=== PATIENT | female | born 1985 | race Caucasian/White ===

== ENCOUNTER 2017-11-06 18:40 | Emergency (ER) | payer OTHER, SELFPAY ==
[2017-11-06 18:43] VITALS: BP 137/73; PULSE 99; RESP 16; TEMP 37.1; O2SAT 97; BMI 60.4
--- NOTE | 2017-11-06 18:54 | RAD_ITS ---
STUDY: X-RAY CHEST REASON FOR EXAM: Female, 32 years old. Chest pain TECHNIQUE: Single frontal view COMPARISON: March 24, 2017. FINDINGS: The lungs are not fully expanded. There is no demonstrated pleural abnormality. Normal size heart. Normal mediastinum and montse. Normal visualized pulmonary arteries. Normal visualized aortic arch and descending thoracic aorta. Normal visualized thoracic spine. Normal visualized ribs, clavicles, and shoulders. There is no demonstrated abnormality of the visualized soft tissue structures of the upper abdomen. RAD/Chest 1 View (Portable) IMPRESSION: Normal x-ray examination of the chest. Electronically Signed: Jeffrey Floyd DO at 19:29 EDT Tel [phone], Service support ,
--- NOTE | 2017-11-06 18:54 | EKG12_ITS ---
Test Reason : PALP Blood Pressure : / mmHG Vent. Rate : 095 BPM Atrial Rate : 095 BPM P-R Int : 142 ms QRS Dur : 074 ms QT Int : 346 ms P-R-T Axes : 052 003 037 degrees QTc Int : 434 ms Normal sinus rhythm Normal ECG Confirmed by JYOTHI LAMAR MD ([id number]), digital editor KEVIN QUESADA ([id number]) on 11/08/2017 3:32:42 PM Referred By: Confirmed By:JYOTHI LAMAR MD
[2017-11-06 19:17] LABS: Absolute Lymphocyte Count 3.85 X10^3/ul (0.83-4.51); Absolute Neutrophil Count 7.5 X10^3/uL (2.0-7.7); Basophil# 0.01 X10^3/uL; Basophil% 0.1 % (0-1); Eosinophil# 0.32 X10^3/uL; Eosinophils% 2.6 % (0-5); Hematocrit 43.5 % (37-47); Hemoglobin 14.5 g/dl (12.0-15.0); Lymphocyte # 3.85 X10^3/ul (4.0); Mean Corp Hgb Conc 33.3 g/gl (32-36); Mean Corpuscular Hgb 28.2 pg (27.0-32.0); Mean Corpuscular Volume 84.5 fL (81-99); Mean Platelet Vol. 10.6 fl (6.2-12.0); Monocyte# 0.75 X10^3/uL; Neutrophil # 7.47 X10^3/uL (2.7-7.7); Neutrophil % 60.1 % (47-70); Platelet Count 301 K/mm3 (150-450); RBC Distribution Width CV 14.4 % (11.6-14.6); RBC Distribution Width SD 44.7 fl (35.1-43.9); Red Blood Count 5.15 M/mm3 (4.2-5.4); White Blood Count 12.4 K/mm3 (4.4-11.0)
[2017-11-06 19:18] LABS: POSITIVE COUNT NO; POSITIVE DIFFERENTIAL NO; POSITIVE MORPHOLOGY NO
[2017-11-06 19:34] LABS: Anion Gap 6 (5-15); BUN 9 mg/dL (7-18); BUN/Creat Ratio 12.7 RATIO (10-20); Calcium,Total 8.9 mg/dL (8.5-10.1); Chloride 106 mmol/L (98-107); Creatinine, Serum 0.71 mg/dL (0.55-1.02); EST Glomerular Filtration Rate 100 mL/min (>60); Est Glom Filt Rate - Afr Amer 121 mL/min (>60); Estimated Creatinine Clearance 100.46 ml/min; Glucose 105 mg/dL (74-106); Potassium 3.6 mmol/L (3.5-5.1); Sodium Level 139 mmol/L (136-145)
== END 2017-11-06 20:54 | disposition left against medical advice (07) ==
LOC: ED 20:40
PROVIDERS: Emergency Provider Emergency Medicine; Family Provider Internal Medicine; PCP Internal Medicine
DX: R07.9 Chest pain, unspecified (principal)
CPT/HCPCS: 71045; 80048; 84484; 85025; 93005; 99281; A4216

== ENCOUNTER 2017-11-10 14:05 | Emergency (ER) | payer OTHER, SELFPAY ==
[2017-11-10 14:05] VITALS: BP 144/82; PULSE 69; RESP 18; TEMP 36.7; O2SAT 96; BMI 60.7
--- NOTE | 2017-11-10 14:56 | EKG12_ITS ---
Test Reason : SOB Blood Pressure : / mmHG Vent. Rate : 069 BPM Atrial Rate : 069 BPM P-R Int : 154 ms QRS Dur : 076 ms QT Int : 436 ms P-R-T Axes : 056 015 026 degrees QTc Int : 467 ms Normal sinus rhythm with sinus arrhythmia Normal ECG Confirmed by GUSTAVO MCLAUGHLIN ([id number]), story editor KEVIN QUESADA ([id number]) on 11/13/2017 1:32:25 PM Referred By: SHAYLEE Confirmed By:GUSTAVO MCLAUGHLIN
--- NOTE | 2017-11-10 15:45 | RAD_ITS ---
STUDY: X-RAY CHEST REASON FOR EXAM: Female, 32 years old. Chest pain and shortness of breath x2 weeks TECHNIQUE: PA and lateral views of the chest. COMPARISON: Prior study of 11/06/2017 FINDINGS: air sampling and monitoring leads are present. The lungs are clear and expanded. There is no demonstrated pleural abnormality. Normal size heart. Normal mediastinum and montse. Normal visualized pulmonary arteries. Normal visualized aortic arch and descending thoracic aorta. Normal visualized thoracic spine. Normal visualized ribs, clavicles, and shoulders. There is no demonstrated abnormality of the visualized soft tissue structures of the upper abdomen. RAD/Chest PA and Lateral IMPRESSION: Normal x-ray examination of the chest. Electronically Signed: Kiran Cadena MD at 16:09 EDT , Service support ,
[2017-11-10 15:46] LABS: Anion Gap 6 (5-15); BUN 7 mg/dL (7-18); BUN/Creat Ratio 10.1 RATIO (10-20); Calcium,Total 8.5 mg/dL (8.5-10.1); Chloride 105 mmol/L (98-107); Creatinine, Serum 0.69 mg/dL (0.55-1.02); EST Glomerular Filtration Rate 103 mL/min (>60); Est Glom Filt Rate - Afr Amer 125 mL/min (>60); Estimated Creatinine Clearance 103.38 ml/min; Glucose 85 mg/dL (74-106); Potassium 3.9 mmol/L (3.5-5.1); Sodium Level 139 mmol/L (136-145)
[2017-11-10 15:49] LABS: Absolute Lymphocyte Count 2.89 X10^3/ul (0.83-4.51); Absolute Neutrophil Count 7.8 X10^3/uL (2.0-7.7); Basophil# 0.01 X10^3/uL; Basophil% 0.1 % (0-1); Eosinophil# 0.17 X10^3/uL; Eosinophils% 1.5 % (0-5); Hematocrit 41.7 % (37-47); Hemoglobin 13.5 g/dl (12.0-15.0); Lymphocyte # 2.89 X10^3/ul (4.0); Lymphocyte % 24.8 % (19-41); Mean Corp Hgb Conc 32.4 g/gl (32-36); Mean Corpuscular Hgb 27.7 pg (27.0-32.0); Mean Corpuscular Volume 85.5 fL (81-99); Mean Platelet Vol. 10.7 fl (6.2-12.0); Monocyte% 6.9 % (0-10); Neutrophil # 7.78 X10^3/uL (2.7-7.7); Neutrophil % 66.6 % (47-70); POSITIVE COUNT NO; POSITIVE DIFFERENTIAL NO; POSITIVE MORPHOLOGY NO; Platelet Count 283 K/mm3 (150-450); RBC Distribution Width CV 14.2 % (11.6-14.6); RBC Distribution Width SD 43.9 fl (35.1-43.9); Red Blood Count 4.88 M/mm3 (4.2-5.4); White Blood Count 11.7 K/mm3 (4.4-11.0)
[2017-11-10 16:57] LABS: Thyroid Stim Hormone (TSH) 0.99 uIU/mL (0.358-3.74)
--- NOTE | 2017-11-10 17:09 | ED.DCSUM_ITS ---
- ER Visit Summary Date of Service: 11/10/17 Chief Complaint: Shortness of breath and palpitations for approximately 2 weeks. History of Present Illness: The patient is a 32 F Adis with chief complaint of shortness of breath palpation for approximate 2 weeks. Symptoms are intermittent. She has no history of PE or DVT or any risk factors. She does have history of alpha-1 antitrypsin deficiency involving her liver. She presented to the emergency room on 12. She apparently left. Patient was questioned regarding this and she states she did leave because she had been waiting and others were taken back before her. She denies fever, chills night sweats. She denies double vision, blurred vision loss of vision or any other symptoms. Drainage, earache or sore throat. She does complain of slight cough. She is a non-smoker. She denies any chest pain of any type. She denies leg pain, swelling discoloration. She has no history of PE or DVT or any risk factors. She denies any GI or symptoms. She denies rash. Denies trauma. She has not taken any [id number] medications other than Mucinex. Physical Examination: Vital signs are noted and remarkable for blood pressure 144/82. BMI is 60.8. Head is atraumatic normocephalic. Pupils are equal round reactive. Extraocular muscles are intact. TMs are pearly white with landmarks noted. Nares patent with no drainage. Posterior pharynx without erythema or exudate. Uvula is midline. There is no dysphonia or dysphasia. Trachea is midline. There is no stridor with auscultation of the neck. Heart is regular without murmur, gallop or rub. S1 and S2 are normal. Lungs are clear to auscultation with good movement of air bilaterally. There is no reproducible chest pain. Abdomen is soft nontender. Limited exam secondary to body habitus. There is no asymmetry, swelling, discoloration, leg vein distention, palpable cords or tenderness along the distribution of the deep venous system. Patient is alert and oriented ?3. Motor is 5 over 5. Sensory is intact. DTRs are symmetric with no clonus or Babinski sign. Cranial 2 through 12 are intact. Cerebellar testing is normal. Test Results: EKG was obtained and reveals a sinus rhythm rate of 69 and is normal. Chest x-ray was interpreted by me as negative. Electrolyte panel is unremarkable. CBC is unremarkable. Because she complains of hot intolerance and his history of hypothyroidism and her levothyroxine dose has not been assessed recently a TSH level was obtained and is normal. Emergency Department Course and Treatment: To evaluate patient's complaint palpitation EKG was obtained and placed on a monitor. There is been no ectopy or irregularity. Chest x-ray obtained because she complained of dyspnea and this is unremarkable. Electrode panel was obtained to evaluate potassium since she complains of palpitations. As aforementioned TSH was obtained because of complaining of hot intolerance. Treatment Plan: Form for workup was unremarkable. She has been instructed to follow-up with her primary care physician Dr. Hernandez Disposition: Discharge to home Impression: 1. Palpitations unknown etiology 2. Dyspnea unknown etiology This note was generated with [employer] dictation software. It may contain incorrect words, spelling, and punctuation that were not noted in review of the chart prior to signing ED Disposition - Plan for ED Patient: Disposition: Home or Assisted Living Chief Complaint: Shortness of Breath Instructions: ED Palpitations, ED Dyspnea Shortness of Breath Referrals: Josselyn Roblero [Primary Care Provider] - 3-5 Days
[2017-11-10 17:12] VITALS: BP 125/78; PULSE 79; RESP 22; O2SAT 96
[2017-11-10 17:14] VITALS: BP 125/78; PULSE 79; RESP 20; O2SAT 96
== END 2017-11-10 17:19 | disposition home or self-care (01) ==
PROVIDERS: Emergency Provider Emergency Medicine; Family Provider Internal Medicine; PCP Internal Medicine
DX: R00.2 Palpitations (principal); R06.00 Dyspnea, unspecified; E88.01 Alpha-1-antitrypsin deficiency; R05 Cough; E66.9 Obesity, unspecified; Z68.44 Body mass index [BMI] 60.0-69.9, adult; E03.9 Hypothyroidism, unspecified; Z79.899 Other long term (current) drug therapy
CPT/HCPCS: 71046; 80048; 84443; 85025; 93005; 99284; A4216

== ENCOUNTER → 2018-03-15 07:53 | Outpatient (CLI) | payer OTHER, SELFPAY ==
[2018-03-15 10:11] LABS: Absolute Lymphocyte Count 2.29 X10^3/ul (0.83-4.51); Absolute Neutrophil Count 6.2 X10^3/uL (2.0-7.7); Basophil# 0.01 X10^3/uL; Basophil% 0.1 % (0-1); Eosinophils% 2.1 % (0-5); Hematocrit 42.6 % (37-47); Hemoglobin 14.1 g/dl (12.0-15.0); Lymphocyte # 2.29 X10^3/ul (4.0); Lymphocyte % 24.4 % (19-41); Mean Corp Hgb Conc 33.1 g/gl (32-36); Mean Corpuscular Hgb 28.6 pg (27.0-32.0); Mean Corpuscular Volume 86.4 fL (81-99); Mean Platelet Vol. 12.5 fl (6.2-12.0); Monocyte# 0.65 X10^3/uL; Monocyte% 6.9 % (0-10); Neutrophil # 6.22 X10^3/uL (2.7-7.7); Neutrophil % 66.2 % (47-70); Platelet Count 206 K/mm3 (150-450); RBC Distribution Width CV 14.3 % (11.6-14.6); RBC Distribution Width SD 44.8 fl (35.1-43.9); Red Blood Count 4.93 M/mm3 (4.2-5.4); White Blood Count 9.4 K/mm3 (4.4-11.0)
[2018-03-15 10:13] LABS: POSITIVE COUNT NO; POSITIVE DIFFERENTIAL NO; POSITIVE MORPHOLOGY NO
[2018-03-15 10:41] LABS: BUN 9 mg/dL (7-18); Creatinine, Serum 0.75 mg/dL (0.55-1.02); Glucose 116 mg/dL (74-106)
[2018-03-15 10:42] LABS: ALB/GLOB Ratio 0.8 RATIO (0.9-2.4); AST(SGOT) 68 U/L (15-37); Alanine Aminotransfer ALT/SGPT 123 U/L (13-56); Albumin, Serum 3.2 g/dL (3.2-5.0); Alkaline Phosphatase 121 U/L (45-117); Anion Gap 7 (5-15); Calcium,Total 8.6 mg/dL (8.5-10.1); Chloride 106 mmol/L (98-107); Cholesterol 208 mg/dL (200); EST Glomerular Filtration Rate 93 mL/min (>60); Est Glom Filt Rate - Afr Amer 113 mL/min (>60); Globulin 4.1 g/dL (2.2-4.2); High Density Lipoprotein 42 mg/dL; Protein, Total 7.3 g/dL (6.4-8.2); Sodium Level 141 mmol/L (136-145); T4 Free Direct 1.07 ng/dL (0.76-1.46); Thyroid Stim Hormone (TSH) 1.43 uIU/mL (0.358-3.74); Triglycerides 120 mg/dL; Very Low Density Lipoprotein 24 mg/dL (5-40)
== END ==
PROVIDERS: Family Provider Internal Medicine; PCP Internal Medicine
DX: E06.3 Autoimmune thyroiditis (principal); R79.89 Other specified abnormal findings of blood chemistry; R53.81 Other malaise; F17.200 Nicotine dependence, unspecified, uncomplicated; K76.0 Fatty (change of) liver, not elsewhere classified
CPT/HCPCS: 36415; 80053; 80061; 84439; 84443; 85025

== ENCOUNTER → 2018-03-24 08:55 | Outpatient (CLI) | payer OTHER, SELFPAY ==
[2018-03-24 09:59] LABS: Ferritin 173 ng/mL (8-252); Iron 51 ug/dL (50-170); Iron Binding Capacity,Total 263 ug/dL (250-450)
== END ==
PROVIDERS: Family Provider Internal Medicine; PCP Internal Medicine
DX: R53.83 Other fatigue (principal); E88.01 Alpha-1-antitrypsin deficiency
CPT/HCPCS: 36415; 82140; 82728; 83540; 83550

== ENCOUNTER → 2018-06-27 10:14 | Outpatient (CLI) | payer OTHER, SELFPAY ==
--- NOTE | 2018-06-27 10:19 | RAD_ITS ---
STUDY: X-RAY - PELVIS REASON FOR EXAM: Female, 32 years old. Inflammatory polyarthropathy TECHNIQUE: One view of the pelvis was obtained. COMPARISON: None. FINDINGS: There is a non-specific bowel gas pattern. Normal visualized soft tissue structures. Normal bilateral iliac wings, sacroiliac joints and visualized sacrum. Normal visualized bilateral superior and inferior pubic rami. Normal pubic symphysis. Normal ischial tuberosities. Normal visualized right femoral head. Normal right acetabulum. Normal right hip joint. Normal visualized left femoral head. Normal left acetabulum. Normal left hip joint. RAD/Pelvis 1 or 2 Views IMPRESSION: Normal x-ray examination of the pelvis. Electronically Signed: Liban Loo DO at 10:07 EDT Tel , Service support ,
--- NOTE | 2018-06-27 10:19 | RAD_ITS ---
STUDY: X-RAY CHEST REASON FOR EXAM: Female, 32 years old. Inflammatory polyarthropathy TECHNIQUE: PA and lateral views of the chest. COMPARISON: None. FINDINGS: The lungs are clear and expanded. There is no demonstrated pleural abnormality. Normal size heart. Normal mediastinum and montse. Normal visualized pulmonary arteries. Normal visualized aortic arch and descending thoracic aorta. Normal visualized thoracic spine. Normal visualized ribs, clavicles, and shoulders. There is no demonstrated abnormality of the visualized soft tissue structures of the upper abdomen. RAD/Chest PA and Lateral IMPRESSION: Normal x-ray examination of the chest. Electronically Signed: Liban Loo DO at 10:08 EDT Tel , Service support ,
[2018-06-27 12:05] LABS: Absolute Lymphocyte Count 1.11 X10^3/ul (0.83-4.51); Absolute Neutrophil Count 5.8 X10^3/uL (2.0-7.7); Basophil# 0.01 X10^3/uL; Basophil% 0.1 % (0-1); Eosinophil# 0.14 X10^3/uL; Eosinophils% 1.8 % (0-5); Hematocrit 42.7 % (37-47); Hemoglobin 14.2 g/dl (12.0-15.0); Lymphocyte # 1.11 X10^3/ul (4.0); Lymphocyte % 14.1 % (19-41); Mean Corp Hgb Conc 33.3 g/gl (32-36); Mean Corpuscular Hgb 28.2 pg (27.0-32.0); Mean Corpuscular Volume 84.9 fL (81-99); Mean Platelet Vol. 12.2 fl (6.2-12.0); Monocyte# 0.76 X10^3/uL; Monocyte% 9.6 % (0-10); Neutrophil # 5.83 X10^3/uL (2.7-7.7); POSITIVE COUNT NO; POSITIVE DIFFERENTIAL NO; POSITIVE MORPHOLOGY NO; Platelet Count 189 K/mm3 (150-450); RBC Distribution Width CV 14.2 % (11.6-14.6); RBC Distribution Width SD 43.1 fl (35.1-43.9); Red Blood Count 5.03 M/mm3 (4.2-5.4); White Blood Count 7.9 K/mm3 (4.4-11.0)
[2018-06-27 12:59] LABS: ALB/GLOB Ratio 0.8 RATIO (0.9-2.4); AST(SGOT) 89 U/L (15-37); Alanine Aminotransfer ALT/SGPT 124 U/L (13-56); Albumin, Serum 3.4 g/dL (3.2-5.0); Alkaline Phosphatase 119 U/L (45-117); Anion Gap 8 (5-15); BUN 11 mg/dL (7-18); BUN/Creat Ratio 16.4 RATIO (10-20); Chloride 103 mmol/L (98-107); Creatinine, Serum 0.67 mg/dL (0.55-1.02); EST Glomerular Filtration Rate 106 mL/min (>60); Est Glom Filt Rate - Afr Amer 128 mL/min (>60); Globulin 4.4 g/dL (2.2-4.2); Glucose 91 mg/dL (74-106); Protein, Total 7.8 g/dL (6.4-8.2); Rheumatoid Factor < 10.0 IU/mL (<15); Sodium Level 137 mmol/L (136-145)
[2018-06-29 11:07] LABS: ANTINUCLEAR ANTIBODIES DIRECT Negative (Negative)
[2018-07-03 13:43] LABS: HEPATITIS B SURFACE AG Negative (Negative)
[2018-07-03 13:44] LABS: CCP IgG Antibodies 14 units (0-19); HLA B27 Positive (.); Hep B Surface Antibodies Non Reactive (.); Hep C Antibodies 0.1 s/co ratio (0.0-0.9)
== END ==
PROVIDERS: Family Provider Internal Medicine; PCP Internal Medicine; Referring Provider Internal Medicine Rheumatology; Visit Provider Internal Medicine Rheumatology
DX: M06.4 Inflammatory polyarthropathy (principal); K76.0 Fatty (change of) liver, not elsewhere classified; M51.37 Other intervertebral disc degeneration, lumbosacral region; E88.01 Alpha-1-antitrypsin deficiency; E06.3 Autoimmune thyroiditis; F41.1 Generalized anxiety disorder; G47.33 Obstructive sleep apnea (adult) (pediatric)
CPT/HCPCS: 36415; 71046; 72170; 80053; 81374; 85025; 86038; 86200; 86431; 86706; 86803; 87340

== ENCOUNTER 2018-08-30 18:25 | Emergency (ER) | payer OTHER, SELFPAY ==
[2018-08-30 18:25] VITALS: BP 155/74; PULSE 65; RESP 18; TEMP 36.2; O2SAT 97; BMI 60.0
[2018-08-30 19:47] LABS: Bacteria 0 SEEN /hpf (None Seen); Mucous, Urine 0 SEEN /hpf (<or=2+)
[2018-08-30 19:49] LABS: Color, Urine Yellow (Yellow); Glucose, Dipstick Normal (Normal); Ketone-Dipstick Negative (Negative); Leukocyte Esterase-Dipstick Negative /ul (Negative); Nitrite-Dipstick Negative (Negative); Occult Blood-Urine Negative /ul (Negative); Protein-Dipstick Negative (Negative); Urine Bilirubin Dipstick Negative (Negative); Urine Clarity Clear (Clear); Urine Urobilinogen Normal (Normal)
[2018-08-30 19:54] LABS: Squamous Epithelial Cells - UA 0-5 SEEN /hpf (5-10)
[2018-08-30 19:55] LABS: Red Blood Cells-Urine 0-5 SEEN /hpf (0-5); White Blood Cells 0-5 SEEN /hpf (0-5)
[2018-08-30 20:13] LABS: Absolute Neutrophil Count 6.9 X10^3/uL (2.0-7.7); Basophil# 0.02 X10^3/uL; Basophil% 0.2 % (0-1); Eosinophil# 0.15 X10^3/uL; Eosinophils% 1.2 % (0-5); Hematocrit 42.8 % (37-47); Lymphocyte % 34.7 % (19-41); Mean Corp Hgb Conc 32.7 g/gl (32-36); Mean Corpuscular Hgb 28.3 pg (27.0-32.0); Mean Corpuscular Volume 86.5 fL (81-99); Mean Platelet Vol. 10.5 fl (6.2-12.0); Monocyte# 1.03 X10^3/uL; Monocyte% 8.3 % (0-10); Neutrophil # 6.87 X10^3/uL (2.7-7.7); Neutrophil % 55.4 % (47-70); Platelet Count 279 K/mm3 (150-450); RBC Distribution Width CV 14.4 % (11.6-14.6); RBC Distribution Width SD 45.2 fl (35.1-43.9); Red Blood Count 4.95 M/mm3 (4.2-5.4); White Blood Count 12.4 K/mm3 (4.4-11.0)
[2018-08-30 20:19] LABS: POSITIVE COUNT NO; POSITIVE DIFFERENTIAL NO; POSITIVE MORPHOLOGY NO
[2018-08-30 20:34] LABS: ALB/GLOB Ratio 0.8 RATIO (0.9-2.4); AST(SGOT) 86 U/L (15-37); Alanine Aminotransfer ALT/SGPT 155 U/L (13-56); Albumin, Serum 3.4 g/dL (3.2-5.0); Alkaline Phosphatase 118 U/L (45-117); Anion Gap 7 (5-15); BUN 11 mg/dL (7-18); BUN/Creat Ratio 13.6 RATIO (10-20); Calcium,Total 8.6 mg/dL (8.5-10.1); Chloride 106 mmol/L (98-107); Creatinine, Serum 0.81 mg/dL (0.55-1.02); EST Glomerular Filtration Rate 86 mL/min (>60); Est Glom Filt Rate - Afr Amer 104 mL/min (>60); Estimated Creatinine Clearance 94.27 ml/min; Globulin 4.4 g/dL (2.2-4.2); Glucose 80 mg/dL (74-106); Lipase 98 U/L (73-393); Potassium 3.7 mmol/L (3.5-5.1); Protein, Total 7.8 g/dL (6.4-8.2); Sodium Level 139 mmol/L (136-145)
[2018-08-30 20:35] VITALS: BP 130/80; PULSE 60; RESP 16; O2SAT 98
[2018-08-30 20:36] LABS: Pregnancy, Serum, hCG Quali. NEGATIVE Negative (0-9 Nonpreg)
--- NOTE | 2018-08-30 21:34 | ED.VISSUMM ---
- ER Visit Summary Date of Service: 08/30/18 Chief Complaint: Abdominal pain History of Present Illness: The patient is a 33 F who presents with abdominal pain that has been constant over the past 4 days. Patient describes the pain as aching with occasional burning and sharp pain. Patient states the pain is over the upper abdomen. Patient states the pain is worse with movement and with cough. Patient admits to some nausea but denies any vomiting. Patient denies any diarrhea, melena, or hematochezia. Patient denies any urinary complaints. Patient denies any other symptoms. Physical Examination: Vital signs are stable. Patient is afebrile. Patient is in no acute distress. Oral mucosa is pink and moist. Neck is supple. Trachea is midline. There is no JVD noted. Heart was regular rate and rhythm. Lungs are clear and equal bilaterally. Abdomen is soft. There is tenderness over the upper abdomen. There is no rebound or guarding noted. There is no distention noted. Cranial nerves II through XII are intact. There are no focal motor or sensory deficits noted. Test Results: CBC showed a mild leukocytosis of 12.4. Liver function tests were slightly elevated with an AST of 86, ALT of 155, and alk phos of 118. The remaining comprehensive metabolic profile was normal. Urinalysis was normal. Emergency Department Course and Treatment: Patient felt better on reevaluation. Patient was given a prescription for Prilosec. Patient was instructed to follow-up with her primary care physician in 5-7 days. Patient understood and was agreeable with the plan. All questions were answered. Disposition: Discharge home Impression: Epigastric abdominal pain This note was generated with [employer] dictation software. It may contain incorrect words, spelling, and punctuation that were not noted in review of the chart prior to signing ED Disposition - Plan for ED Patient: Disposition: Home or Assisted Living Chief Complaint: Abd Pain Diagnosis: Epigastric abdominal pain of unknown etiology Instructions: ED Abdominal Pain Unkn Cause Prescriptions: Omeprazole [Prilosec] 20 mg PO DAILY #30 cap Referrals: [facility] Doctor,Out of [Primary Care Provider] -
--- NOTE | 2018-08-30 21:50 | ED.RN ---
IV DC'ED, CATHETER INTACT, SMALL GAUZE DRESSING PLACED. DISCHARGE INSTRUCTIONS GIVEN TO AND REVIEWED WITH PATIENT, PATIENT DENIES QUESTIONS OR CONCERNS AND VOICES UNDERSTANDING OF DISCHARGE INSTRUCTIONS. PT AMBULATES OUT OF ROOM WITHOUT DIFFICULTY.
== END 2018-08-30 21:51 | disposition home or self-care (01) ==
PROVIDERS: Emergency Provider Emergency Medicine; Family Provider Internal Medicine
DX: R10.13 Epigastric pain (principal); R11.0 Nausea; E66.9 Obesity, unspecified; R68.83 Chills (without fever); H53.8 Other visual disturbances; J34.89 Other specified disorders of nose and nasal sinuses; J02.9 Acute pharyngitis, unspecified; R00.2 Palpitations; M54.9 Dorsalgia, unspecified; E06.3 Autoimmune thyroiditis; Z90.49 Acquired absence of other specified parts of digestive tract; Z79.899 Other long term (current) drug therapy; Z87.891 Personal history of nicotine dependence
CPT/HCPCS: 36415; 80053; 81001; 83690; 84703; 85025; 99283; A4216

== ENCOUNTER 2018-09-01 09:17 | Emergency (ER) | payer OTHER, SELFPAY ==
[2018-09-01 09:18] VITALS: BP 148/77; PULSE 71; RESP 18; TEMP 36.6; O2SAT 98; BMI 59.7
--- NOTE | 2018-09-01 09:36 | CT_ITS ---
STUDY: CT ABDOMEN AND PELVIS WITH CONTRAST REASON FOR EXAM: Female, 33 years old. Pain.. RADIATION DOSAGE (If Supplied By Facility): CTDIvol = ( 24.33 ) mGy, DLP = ( 1991.29 ) mGycm TECHNIQUE: Transaxial images were obtained from the dome of the diaphragm to the symphysis pubis with oral contrast. 100 ml of Isovue 300 contrast was administered. Sagittal and coronal images were reconstructed. Individualized dose optimization techniques were used for this CT. COMPARISON: None. FINDINGS: The visualized lung bases are unremarkable. The visualized portions of the heart are within normal limits. There is hepatomegaly with diffuse hepatic enlargement. There are surgical clips in the gallbladder fossa consistent with a prior cholecystectomy. There is mild splenomegaly. Normal pancreas. Normal bilateral adrenal glands. Normal right kidney. Normal left kidney. There is a small hiatal hernia. Normal small intestine. Normal colon. The appendix is visualized and appears normal. Normal abdominal aorta. Normal inferior vena cava. Normal retroperitoneum. Normal urinary bladder. Normal visualized uterus. control devices in the fallopian tubes. There is no free fluid in the abdomen or pelvis. Normal abdominal wall. Normal osseous structures. CT/Abdomen/Pelvis WITH Contrast IMPRESSION: Hepatosplenomegaly. No biliary dilatation. Small hiatal hernia. Electronically Signed: Aaron Curiel MD at 12:51 EST , Service support ,
--- NOTE | 2018-09-01 09:50 | ED.DCSUM_ITS ---
- ER Visit Summary Date of Service: 09/01/18 Chief Complaint: Abdominal pain History of Present Illness: The patient is a 33 F with 5 days of upper abdominal pain. The pain starts in her epigastric region and radiates over her entire abdomen, worse in the right upper quadrant. It feels sharp, and at other times it belcher. She never had this before. Associate with nausea and feeling that her stomach is distended. She was seen in the ED 2 days ago and had labs and urine. Her symptoms are worsening. She tried to take some Zofran, but it made her symptoms worse. She has a history of ankylosing spondylitis and takes Humira. She also has a history of alpha-1 antitrypsin deficiency and has a history of elevated liver enzymes. Patient had a cholecystectomy 10 or more years ago. She also had an upper EGD many years ago for reflux, but her symptoms are different this time. Physical Examination: Afebrile and vital signs unremarkable. Patient alert and oriented. No acute distress. Heart regular. Abdomen tender in the epigastric region. No guarding or rebound. Skin appears normal. Test Results: We will repeat labs. Will add a CT as well. Emergency Department Course and Treatment: Patient was treated with fluids, Phenergan, and a GI cocktail while awaiting results. CBC normal. CMP shows an ALT of 164 and AST of 93, this is close to her baseline. Lipase normal. I did not repeat urine testing as she had this just a few days ago and has no urinary symptoms. I did check a CT which showed hepatosplenomegaly (she does have alpha-1 antitrypsin deficiency with liver involvement) as well as a small hiatal hernia. Normal bile ducts. I suspect she may have pain from gastritis or acid reflux. She does have a small hiatal hernia. Will treat with Pepcid and Phenergan. Follow-up with her doctor for outpatient management. Return for any new or worsening issues. Treatment Plan: As above Disposition: Discharge Impression: 1. Upper abdominal pain This note was generated with [employer] dictation software. It may contain incorrect words, spelling, and punctuation that were not noted in review of the chart prior to signing ED Disposition - Plan for ED Patient: Chief Complaint: Abd Pain Referrals: [facility] Doctor,Out of [Primary Care Provider] -
[2018-09-01 10:00] LABS: Absolute Lymphocyte Count 2.57 X10^3/ul (0.83-4.51); Absolute Neutrophil Count 4.9 X10^3/uL (2.0-7.7); Basophil# 0.01 X10^3/uL; Basophil% 0.1 % (0-1); Eosinophil# 0.09 X10^3/uL; Eosinophils% 1.1 % (0-5); Hematocrit 43.1 % (37-47); Hemoglobin 14.3 g/dl (12.0-15.0); Lymphocyte # 2.57 X10^3/ul (4.0); Lymphocyte % 31.3 % (19-41); Mean Corp Hgb Conc 33.2 g/gl (32-36); Mean Corpuscular Hgb 28.7 pg (27.0-32.0); Mean Corpuscular Volume 86.4 fL (81-99); Mean Platelet Vol. 10.5 fl (6.2-12.0); Monocyte# 0.67 X10^3/uL; Monocyte% 8.2 % (0-10); Neutrophil # 4.86 X10^3/uL (2.7-7.7); Neutrophil % 59.1 % (47-70); Platelet Count 290 K/mm3 (150-450); RBC Distribution Width CV 14.4 % (11.6-14.6); RBC Distribution Width SD 45.4 fl (35.1-43.9); Red Blood Count 4.99 M/mm3 (4.2-5.4); White Blood Count 8.2 K/mm3 (4.4-11.0)
[2018-09-01 10:07] LABS: POSITIVE COUNT NO; POSITIVE DIFFERENTIAL NO; POSITIVE MORPHOLOGY NO
[2018-09-01 10:12] LABS: ALB/GLOB Ratio 0.8 RATIO (0.9-2.4); AST(SGOT) 93 U/L (15-37); Alanine Aminotransfer ALT/SGPT 164 U/L (13-56); Albumin, Serum 3.3 g/dL (3.2-5.0); Alkaline Phosphatase 115 U/L (45-117); Anion Gap 9 (5-15); BUN 9 mg/dL (7-18); BUN/Creat Ratio 13.3 RATIO (10-20); Calcium,Total 8.9 mg/dL (8.5-10.1); Chloride 105 mmol/L (98-107); Creatinine, Serum 0.68 mg/dL (0.55-1.02); EST Glomerular Filtration Rate 106 mL/min (>60); Est Glom Filt Rate - Afr Amer 128 mL/min (>60); Estimated Creatinine Clearance 112.29 ml/min; Globulin 4.4 g/dL (2.2-4.2); Glucose 94 mg/dL (74-106); Lipase 100 U/L (73-393); Protein, Total 7.7 g/dL (6.4-8.2); Sodium Level 141 mmol/L (136-145)
[2018-09-01] MEDS: 0.9% Normal Saline 1,000 ML 1000 ML IV (10:38)
[2018-09-01] MEDS: Mag Hydrox/Al Hydrox/Simeth 30 ML UDC PO (10:38)
[2018-09-01] MEDS: proMETHazine 25 MG/ML Syringe 6.25 MG IV (10:38)
[2018-09-01 13:04] VITALS: BP 115/76; PULSE 61; RESP 16; O2SAT 100
--- NOTE | 2018-09-01 13:11 | ED.DEP ---
ED Disposition - Plan for ED Patient: Chief Complaint: Abd Pain Instructions: ED Abdominal Pain Unkn Cause Prescriptions: proMETHazine tablet [Phenergan] 25 mg PO Q6H PRN PRN #10 tab PRN Reason: Nausea Famotidine [Pepcid] 20 mg PO BID #28 tab Additional Instructions: call your doctor monday for follow up
== END 2018-09-01 13:28 | disposition home or self-care (01) ==
LOC: ED 09:56
PROVIDERS: Emergency Provider Emergency Medicine; Family Provider Internal Medicine; PCP Internal Medicine
DX: R10.10 Upper abdominal pain, unspecified (principal); R11.0 Nausea; K44.9 Diaphragmatic hernia without obstruction or gangrene; M45.9 Ankylosing spondylitis of unspecified sites in spine; E88.01 Alpha-1-antitrypsin deficiency; K21.9 Gastro-esophageal reflux disease without esophagitis; E03.9 Hypothyroidism, unspecified; Z90.49 Acquired absence of other specified parts of digestive tract; Z79.899 Other long term (current) drug therapy
CPT/HCPCS: 74177; 80053; 83690; 85025; 96361; 96374; 99284; J7030; Q9967; A4216

== ENCOUNTER 2018-09-17 17:54 | Observation (INO) | payer OTHER, SELFPAY ==
[2018-09-17] VITALS (7 sets, daily range): BP systolic 118–155; BP diastolic 73–92; PULSE 78–108; RESP 15–24; TEMP 36.2–36.9; O2SAT 94–99; BMI 61.4; BMI 61.5; BMI 60.4; BMI 60.5
--- NOTE | 2018-09-17 18:03 | EKG12_ITS ---
Test Reason : CP Blood Pressure : / mmHG Vent. Rate : 091 BPM Atrial Rate : 091 BPM P-R Int : 166 ms QRS Dur : 076 ms QT Int : 356 ms P-R-T Axes : 057 004 049 degrees QTc Int : 437 ms Normal sinus rhythm Normal ECG Confirmed by YON COPELAND, GARRICK ([id number]), video editor KEVIN QUESADA ([id number]) on 09/19/2018 1:42:05 PM Referred By: Lorena Nettles Confirmed By:GARRICK MARVIN MD
--- NOTE | 2018-09-17 18:29 | ED.DCSUM_ITS ---
- ER Visit Summary Date of Service: 09/17/18 Chief Complaint: Heart racing History of Present Illness: The patient is a 33 F who presents for episodes of her heart racing, resulting in tunnel vision and out of body experiences. Patient states she has been having these episodes for several years, with the increase in occurrence over the last year. She had an episode occurred this morning and so went to see Dr. Lama. A Holter monitor was placed, and patient had another episode this afternoon, at which time a wide-complex tachycardia lasting 3 minutes was noted on the Holter monitor. Patient was told to come in for further evaluation. Patient has history of Konrad's thyroiditis, ankylosing spondylitis, and alpha 1 antitrypsin disorder. She is status post cholecystectomy. She denies alcohol or tobacco use. She denies any changes in her thyroid medications recently. She currently denies any fever, vision changes, chest pain, shortness of breath, abdominal pain, nausea or vomiting, or any other complaints at this time. She stated she did have some chest discomfort and left neck discomfort when she was having the episode. Physical Examination: Vital signs: afebrile, hemodynamically stable, no hypoxia on room air General: well nourished, well developed, in no distress Skin: warm, dry, no rash, no pallor HEENT: normocephalic and atraumatic; PERRL, EOMI, moist mucous membranes Cardiovascular: regular rate and rhythm without murmurs, no peripheral edema, 2+ pulses all distal extremities Respiratory: No increased work of breathing, lungs are clear to auscultation bilaterally, no rales, rhonchi or wheezing Abdominal: Abdomen is soft, nontender with normoactive bowel sounds, no guarding or rebound, no masses MSK: Moves all extremities, no deformities, normal strength Neuro: Awake and alert, oriented ?4. No facial droop, sensation and motor function intact and symmetric Test Results: Abnormal Lab Results 09/17/18 09/17/18 09/17/18 18:25 18:25 18:25 WBC 14.3 H RBC 5.29 Hgb 14.9 Hct 45.8 MCV 86.6 MCH 28.2 MCHC 32.5 RDW 14.3 RDW Differential 44.9 H Plt Count 212 MPV 11.8 Immature Gran % (Auto) 0.200 Neut % (Auto) 61.5 Lymph % (Auto) 29.5 Kinney % (Auto) 7.5 Eos % (Auto) 1.2 Baso % (Auto) 0.1 Absolute Neuts (auto) 8.8 H Absolute Lymphs (auto) 4.23 Total Counted Not Reportable PT 13.0 INR 1.0 APTT 27.2 Sodium 139 Potassium 3.6 Chloride 105 Carbon Dioxide 26.0 Anion Gap 8 BUN 9 Creatinine 0.79 Estim Creat Clear Calc 93.05 Est GFR (MDRD) Af Amer 107 Est GFR (MDRD) Non-Af 88 BUN/Creatinine Ratio 11.4 Glucose 108 H Calcium 8.9 Magnesium 1.8 Troponin I < 0.015 TSH 1.85 Serum , Qual 09/17/18 18:25 WBC RBC Hgb Hct MCV MCH MCHC RDW RDW Differential Plt Count MPV Immature Gran % (Auto) Neut % (Auto) Lymph % (Auto) Kinney % (Auto) Eos % (Auto) Baso % (Auto) Absolute Neuts (auto) Absolute Lymphs (auto) Total Counted PT INR APTT Sodium Potassium Chloride Carbon Dioxide Anion Gap BUN Creatinine Estim Creat Clear Calc Est GFR (MDRD) Af Amer Est GFR (MDRD) Non-Af BUN/Creatinine Ratio Glucose Calcium Magnesium Troponin I TSH Serum , Qual NEGATIVE Clinical Impression(s) from Imaging Studies Chest X-Ray 09/17/18 18:31 IMPRESSION: No radiographic evidence of acute cardiopulmonary disease. Electronically Signed: Rosario June MD at 19:02 EST , Service support , Emergency Department Course and Treatment: EKG was performed that showed a sinus rhythm with no ischemic changes, no ectopy, no delta waves, and no underlying proarrhythmic morphology. Labs were performed and were remarkable only for leukocytosis of 14.3. No electrolyte derangements. Troponin negative. negative. TSH within normal limits. Chest x-ray showed no acute process. Patient was discussed with Dr. Shipley, who will evaluate the patient in the morning and likely perform a cardiac catheterization. He is going to talk to Dr. Lama regarding the plan. Patient was discussed with the hospitalist Dr. Nettles and admitted for further evaluation and management of her symptomatic paroxysmal tachycardia. Treatment Plan: [] Disposition: [] Impression: Symptomatic paroxysmal tachycardia This note was generated with [employer] dictation software. It may contain incorrect words, spelling, and punctuation that were not noted in review of the chart prior to signing ED Disposition - Plan for ED Patient: Chief Complaint: Palpitations
--- NOTE | 2018-09-17 18:31 | RAD_ITS ---
STUDY: X-RAY CHEST REASON FOR EXAM: Female, 33 years old. Cardiac palpitations. TECHNIQUE: PA and lateral views of the chest. COMPARISON: November 10, 2017. FINDINGS: Cardiac monitoring leads are present. The lungs are clear and expanded. There is no demonstrated pleural abnormality. Normal size heart. Normal mediastinum and montse. There is prominence of the pulmonary hilar arteries without peripheral pulmonary vascular congestion. Normal visualized aortic arch and descending thoracic aorta. Normal visualized thoracic spine. Normal visualized ribs, clavicles, and shoulders. Surgical clips are visible within the right upper quadrant. RAD/Chest PA and Lateral IMPRESSION: No radiographic evidence of acute cardiopulmonary disease. Electronically Signed: Rosario June MD at 19:02 EST , Service support ,
[2018-09-17 18:38] LABS: Absolute Lymphocyte Count 4.23 X10^3/ul (0.83-4.51); Absolute Neutrophil Count 8.8 X10^3/uL (2.0-7.7); Basophil# 0.01 X10^3/uL; Basophil% 0.1 % (0-1); Eosinophil# 0.17 X10^3/uL; Eosinophils% 1.2 % (0-5); Hematocrit 45.8 % (37-47); Hemoglobin 14.9 g/dl (12.0-15.0); Lymphocyte # 4.23 X10^3/ul (4.0); Lymphocyte % 29.5 % (19-41); Mean Corp Hgb Conc 32.5 g/gl (32-36); Mean Corpuscular Hgb 28.2 pg (27.0-32.0); Mean Corpuscular Volume 86.6 fL (81-99); Mean Platelet Vol. 11.8 fl (6.2-12.0); Monocyte# 1.07 X10^3/uL; Monocyte% 7.5 % (0-10); Neutrophil # 8.81 X10^3/uL (2.7-7.7); Neutrophil % 61.5 % (47-70); Platelet Count 212 K/mm3 (150-450); RBC Distribution Width CV 14.3 % (11.6-14.6); RBC Distribution Width SD 44.9 fl (35.1-43.9); Red Blood Count 5.29 M/mm3 (4.2-5.4); White Blood Count 14.3 K/mm3 (4.4-11.0)
[2018-09-17 18:42] LABS: POSITIVE COUNT NO; POSITIVE DIFFERENTIAL NO; POSITIVE MORPHOLOGY NO
[2018-09-17 18:45] LABS: Partial Thromboplast Time 27.2 Seconds (24.1-36.2)
[2018-09-17 18:58] LABS: Anion Gap 8 (5-15); BUN 9 mg/dL (7-18); BUN/Creat Ratio 11.4 RATIO (10-20); Calcium,Total 8.9 mg/dL (8.5-10.1); Chloride 105 mmol/L (98-107); Creatinine, Serum 0.79 mg/dL (0.55-1.02); EST Glomerular Filtration Rate 88 mL/min (>60); Est Glom Filt Rate - Afr Amer 107 mL/min (>60); Estimated Creatinine Clearance 93.05 ml/min; Glucose 108 mg/dL (74-106); Magnesium 1.8 mg/dL (1.6-2.6); Potassium 3.6 mmol/L (3.5-5.1); Sodium Level 139 mmol/L (136-145); Thyroid Stim Hormone (TSH) 1.85 uIU/mL (0.358-3.74)
[2018-09-17 19:22] LABS: Pregnancy, Serum, hCG Quali. NEGATIVE Negative (0-9 Nonpreg)
--- NOTE | 2018-09-17 20:13 | PCM.HP.STD ---
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 Qualified Code(s): E03.8 - Other specified hypothyroidism; E06.3 - Autoimmune thyroiditis (4) Ankylosing spondylitis Status: Chronic Qualifiers: Ankylosing spondylitis location: unspecified site of spine Qualified Code(s): M45.9 - Ankylosing spondylitis of unspecified sites in spine (5) GERD (gastroesophageal reflux disease) Status: Chronic Qualifiers: Esophagitis presence: esophagitis presence not specified Qualified Code(s): K21.9 - Gastro-esophageal reflux disease without esophagitis (6) Mmubq-1-mwnxtoompir deficiency Status: Chronic History of Present Illness Date of Admission: 09/17/18 Chief Complaint: Symptomatic tachycardia, Ventricular tachycardia The patient is a 33 y/o F w/ PMHx: Konrad's now Hypothyroid, BRISEYDA on CPAP with decreased compliance, Morbid Obesity, Anxiety and Depression, Ankylosing spondylitis following w/ Rheumatology on Humira, GERD, Chronic LFT elevations w/ Bx w/ Dx alpha-1 antitrypsin deficiency history of palpitations/? SVT referred to the [facility] ED on 09/17/18 per her Asset Liability Analyst, Dr. Shaikh w/ recent HM evaluation initiated 09/17/18 earlier in the day secondary to evaluation in the office with noted episodes of tachycardia, racing heart, palpitations, lightheadedness, tunnel vision w/ left sided chest pressure/tightness without radiation with associated mild dyspnea, diaphoresis with recurrent episode following placement of HM with HR noted to be up to nearly 200 at 4:13-4:16 pm with Asset Liability Analyst request to present to the ED for evaluation. Patient notes that this year she has been more invested in her health and has been dieting and exercising with note that more episodes have been occurring since these interventions. Dr. Shipley and Dr. Shaikh aware of patient presentation and currently noted plan for cardiac catheterization in AM. Work-up in the ED included T 97.2, heart rate 108, BP 155/92, respiratory rate 18, 97% on room air, CBC with W BC 14.3, hemoglobin 14.9, platelet 212 with left shift, unremarkable coags, BMP unremarkable aside glucose 108, magnesium 1.8, TSH 1.85, troponin <0.015, CXR with no acute cardiopulmonary process, EKG w/ SR without any evidence of ischemia. Past Medical History Past Medical History (Chronic Problems): Chronic Problems Morbid obesity (Chronic) Hypothyroidism (Chronic) Ankylosing spondylitis (Chronic) GERD (gastroesophageal reflux disease) (Chronic) Gmaub-4-[id number] deficiency (Chronic) Allergies Penicillins Allergy (Verified 09/17/18 17:55) Hives hydrocodone bitartrate [From Vicodin] Adverse Reaction (Verified 09/17/18 17:55) Nausea morphine Adverse Reaction (Verified 09/17/18 17:55) Nausea Home Medications: Ambulatory Orders Medication Instructions Recorded Levothyroxine [Synthroid] 100 mcg PO DAILY 11/10/17 Adalimumab [Humira] 40 mg SQ QWEEK 08/30/18 Ibuprofen 600 mg PO PRN PRN 09/17/18 Omeprazole [Prilosec] 20 mg PO DAILY 09/17/18 Surgical History: - - Cholecystectomy, x 1, T+A. 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 Smoking Status: Former smoker - Patient quit cigarette tobacco usage approximately 3 months prior with history of intermittent less than 1/2 pack/day cigarette usage on and off times 12 years. Tobacco Use: Cigarettes Alcohol: None Drugs: None - *Family History Maternal History Items: - - Patient mother is healthy with only home medications reflux medication and regimen for anxiety and depression otherwise denies any history of diabetes, heart disease, cancer. Paternal History Items: - - Patient father with history of heart disease, status post [place] with PCI x2 in 2016. Review of Systems Constitutional: Denies: Chills, Fever, Weight Change HEENT: Reports: - - Tunnel vision.. Denies: Head Aches, Sinus Congestion, Sinus Drainage Cardiovascular: Reports: Chest Pressure, Chest Tightness, Heaviness, Light Headedness, Palpitations. Denies: Chest Pain Respiratory: Reports: Shortness of Breath. Denies: Cough, Shortness of breath at rest, Sputum production Gastrointestinal: Denies: Abdominal Pain, Nausea, Vomiting Genitourinary: Denies: Dysuria Musculoskeletal: Reports: Back Pain, Joint Pain. Denies: Joint Tenderness Skin: Denies: Rash, Wounds Neurological: Denies: Numbness, Tingling, Focal weakness Psychiatric: Denies: Anxiety, Depression, Homicidal Ideations, Suicidal Ideations Hematologic/ Lymphatic: Denies: Easy Bruising, Easy Bleeding VTE Information - Inpt Only VTE Present on Admission: No VTE Mechan Device Prophylaxis: SCD's VTE Pharm Prophylaxis ordered?: No Reason prophylaxis not ordered:: Medical Contraindication - Holding for AM cath Patient Problems: Active and Suspected Problems Ventricular tachycardia (Acute) Subjective: Seated upright in the ED bed, currently denies any chest discomfort or recurrent symptoms since last at 4:13 pm. Objective: Physical Examination: General: awake, alert, oriented x 3 and cooperative, seated upright in the ED bed in no apparent distress did become tearful and notes she is anxious about undergoing cardiac catheterization. Skin: normal color, turgor, no icterus, cyanosis. HEENT: AT/NC, EOMI, PERRLA, mildly dry MM, no carotid bruits or JVD noted; ever, thickened neck makes examination difficult. Lungs: Breath sounds bilateral bases, moderate effort, no rales, ronchi or wheezing. Heart: Regular rate and rhythm; no gallop, rub audible. Abdomen: soft, overly obese NTTP, ND, normal BS, no HSM; however habitus makes examination difficult. Extremities: no cyanosis, clubbing, or edema. Neurological: patient awake, alert, oriented x 3; cognitive function intact; pupils equally reactive to light and accomodation; cranial nerves II-XII grossly normal, moving all 4 extremities, no focal deficits, strength mildly globally decreased. Psychiatric: affect appears she is, was tearful with discussions of cardiac catheterization, no acute evidence of depressive feelings. - Physical Exam Vital Signs Temp Pulse Resp BP Pulse Ox 97.2 F L 84 24 H 126/78 H 96 09/17/18 17:55 09/17/18 20:09 09/17/18 20:09 09/17/18 20:09 09/17/18 20:09 Oxygen Delivery Method Room Air Weight: 380 lb 11.813 oz Body Mass Index (BMI) 61.4 Finger Stick Blood Glucose 105 Laboratory Tests Past 24 Hrs 09/17/18 09/17/18 09/17/18 18:25 18:25 18:25 WBC 14.3 H RBC 5.29 Hgb 14.9 Hct 45.8 MCV 86.6 MCH 28.2 MCHC 32.5 RDW 14.3 RDW Differential 44.9 H Plt Count 212 MPV 11.8 Immature Gran % (Auto) 0.200 Neut % (Auto) 61.5 Lymph % (Auto) 29.5 [place] % (Auto) 7.5 Eos % (Auto) 1.2 Baso % (Auto) 0.1 Absolute Neuts (auto) 8.8 H Absolute Lymphs (auto) 4.23 Total Counted Not Reportable PT 13.0 INR 1.0 APTT 27.2 Sodium 139 Potassium 3.6 Chloride 105 Carbon Dioxide 26.0 Anion Gap 8 BUN 9 Creatinine 0.79 Estim Creat Clear Calc 93.05 Est GFR (MDRD) Af Amer 107 Est GFR (MDRD) Non-Af 88 BUN/Creatinine Ratio 11.4 Glucose 108 H Calcium 8.9 Magnesium 1.8 Troponin I < 0.015 TSH 1.85 Serum , Qual 09/17/18 18:25 WBC RBC Hgb Hct MCV MCH MCHC RDW RDW Differential Plt Count MPV Immature Gran % (Auto) Neut % (Auto) Lymph % (Auto) [place] % (Auto) Eos % (Auto) Baso % (Auto) Absolute Neuts (auto) Absolute Lymphs (auto) Total Counted PT INR APTT Sodium Potassium Chloride Carbon Dioxide Anion Gap BUN Creatinine Estim Creat Clear Calc Est GFR (MDRD) Af Amer Est GFR (MDRD) Non-Af BUN/Creatinine Ratio Glucose Calcium Magnesium Troponin I TSH Serum , Qual NEGATIVE Assessment/Plan All Active Problems Ventricular tachycardia (Acute) The patient is a 33 y/o F w/ PMHx: Knorad's now Hypothyroid, BRISEYDA on CPAP with decreased compliance, Morbid Obesity, Anxiety and Depression, Ankylosing spondylitis following w/ Rheumatology on Humira, GERD, Chronic LFT elevations w/ Bx w/ Dx alpha-1 antitrypsin deficiency history of palpitations/? SVT referred to the [facility] ED on 09/17/18 per her Asset Liability Analyst, Dr. Shaikh w/ recent HM evaluation initiated 09/17/18 earlier in the day secondary to evaluation in the office with noted episodes of tachycardia, racing heart, palpitations, lightheadedness, tunnel vision w/ left sided chest pressure/tightness without radiation with associated mild dyspnea, diaphoresis with recurrent episode following placement of HM with HR noted to be up to nearly 200 at 4:13-4:16 pm. (1) Arrhythmia, VT, symptomatic: Work-up in the ED included T 97.2, heart rate 108, BP 155/92, respiratory rate 18, 97% on room air, CBC with W BC 14.3, hemoglobin 14.9, platelet 212 with left shift, unremarkable coags, BMP unremarkable aside glucose 108, magnesium 1.8, TSH 1.85, troponin <0.015, CXR with no acute cardiopulmonary process, EKG w/ SR without any evidence of ischemia. Holter monitoring evaluation per cardiology office with notable arrhythmia with referral to the ED as noted. Will admit to PCU, place on a monitored bed to assure no acute myocardial infarction with serial cardiac enzymes and EKGs. ASA, NG, morphine. Mag 1.8, TSH normal. FLP in AM. If recurrent event would attempt vagal maneuvers and likely adenosine. Will defer addition of calcium channel waldo versus beta-waldo at this time pending discussions with cardiology. (2) Alpha-1 antitrypsin deficiency w/ Chronically Elevated LFTs: Following with [facility], unclear if baseline PFTs have been obtained, encouraged continued tobacco cessation. (3) Ankylosing spondylitis: Following w/ Rheumatology, maintained on Humira regimen. (4) Hypothyroidism: Continue home synthroid regimen, TSH level upon ED presentation. Prior history of Konrad. (5) Morbid Obesity: Weight loss and lifestyle changes encouraged, nutrition consulted. (6) BRISEYDA: CPAP q HS, notes poor compliance, states she needs to make another appointment to have reassessment. (7) Anxiety and depression: Not on regimen, currently attempting several lifestyle changes, encourage follow-up with primary care physician. (8) GERD: PPI. (9) DVT Prophylaxis: SCDs, defer chemoprophylaxis for planned a.m. intervention. Code Visit Inpatient E&M: 90823 Init Hosp L3
[2018-09-17] MEDS: 0.9% Normal Saline 1,000 ML 100 ML IV (21:58)
[2018-09-17 22:30] LABS: Hemoglobin A1c 5.7 % (4.2-6.3)
[2018-09-18] VITALS (18 sets, daily range): BP systolic 96–141; BP diastolic 44–80; PULSE 60–97; RESP 17–18; TEMP 36.6–37.2; O2SAT 94–98
[2018-09-18 00:35] LABS: Mucous, Urine 0 SEEN /hpf (<or=2+); Red Blood Cells-Urine 0 SEEN /hpf (0-5); White Blood Cells 0 SEEN /hpf (0-5)
[2018-09-18 00:37] LABS: Color, Urine Yellow (Yellow); Glucose, Dipstick Normal (Normal); Ketone-Dipstick Negative (Negative); Leukocyte Esterase-Dipstick Negative /ul (Negative); Nitrite-Dipstick Negative (Negative); Occult Blood-Urine Negative /ul (Negative); Protein-Dipstick Negative (Negative); Urine Bilirubin Dipstick Negative (Negative); Urine Clarity Clear (Clear); Urine Urobilinogen Normal (Normal)
[2018-09-18 00:42] LABS: Bacteria RARE /hpf (None Seen); Squamous Epithelial Cells - UA 0-5 SEEN /hpf (5-10)
[2018-09-18 05:33] LABS: Absolute Lymphocyte Count 3.54 X10^3/ul (0.83-4.51); Absolute Neutrophil Count 5.2 X10^3/uL (2.0-7.7); Basophil# 0.02 X10^3/uL; Basophil% 0.2 % (0-1); Eosinophil# 0.17 X10^3/uL; Eosinophils% 1.7 % (0-5); Hematocrit 40.8 % (37-47); Hemoglobin 13.5 g/dl (12.0-15.0); Lymphocyte # 3.54 X10^3/ul (4.0); Lymphocyte % 35.7 % (19-41); Mean Corp Hgb Conc 33.1 g/gl (32-36); Mean Corpuscular Hgb 28.5 pg (27.0-32.0); Mean Corpuscular Volume 86.1 fL (81-99); Mean Platelet Vol. 11.3 fl (6.2-12.0); Monocyte# 0.98 X10^3/uL; Monocyte% 9.9 % (0-10); Neutrophil # 5.18 X10^3/uL (2.7-7.7); Neutrophil % 52.3 % (47-70); Platelet Count 223 K/mm3 (150-450); RBC Distribution Width CV 14.4 % (11.6-14.6); RBC Distribution Width SD 44.5 fl (35.1-43.9); Red Blood Count 4.74 M/mm3 (4.2-5.4); White Blood Count 9.9 K/mm3 (4.4-11.0)
[2018-09-18 05:39] LABS: POSITIVE COUNT NO; POSITIVE DIFFERENTIAL NO; POSITIVE MORPHOLOGY NO
[2018-09-18 05:40] LABS: Prothrombin Time (Protime)PT. 13.3 SECONDS (11.7-14.9)
[2018-09-18 05:45] LABS: Partial Thromboplast Time 27.2 Seconds (24.1-36.2)
[2018-09-18 05:48] LABS: Anion Gap 6 (5-15); BUN 9 mg/dL (7-18); BUN/Creat Ratio 12.3 RATIO (10-20); Calcium,Total 8.5 mg/dL (8.5-10.1); Chloride 110 mmol/L (98-107); Cholesterol 157 mg/dL (200); Creatinine, Serum 0.73 mg/dL (0.55-1.02); EST Glomerular Filtration Rate 96 mL/min (>60); Est Glom Filt Rate - Afr Amer 116 mL/min (>60); Estimated Creatinine Clearance 100.69 ml/min; Glucose 95 mg/dL (74-106); High Density Lipoprotein 46 mg/dL; Potassium 4.1 mmol/L (3.5-5.1); Sodium Level 143 mmol/L (136-145); Triglycerides 65 mg/dL; Very Low Density Lipoprotein 13 mg/dL (5-40)
--- NOTE | 2018-09-18 05:55 | EKG12_ITS ---
Test Reason : AM EKG Blood Pressure : / mmHG Vent. Rate : 067 BPM Atrial Rate : 067 BPM P-R Int : 156 ms QRS Dur : 078 ms QT Int : 434 ms P-R-T Axes : 053 008 028 degrees QTc Int : 458 ms Normal sinus rhythm Normal ECG Confirmed by YON COPELAND, GARRICK ([id number]), publication editor KEVIN QUESADA ([id number]) on 09/19/2018 1:57:56 PM Referred By: Lorena Nettles Confirmed By:GARRICK MARVIN MD
[2018-09-18] MEDS: Aspirin 81 MG TAB.CHEW PO (06:26)
[2018-09-18] MEDS: Levothyroxine 100 MCG Tablet PO (06:26)
--- NOTE | 2018-09-18 07:02 | NURSING ---
CALLED REPORT TO ESTER POWELL IN [employer].
--- NOTE | 2018-09-18 07:03 | PCM.CONS.C ---
Reason for Consult Date of Consultation: 09/18/18 Reason for Consultation: Evaluation of palpitations History of Present Illness: The patient is a 33 year old F who presents for episodes of her heart racing, resulting in tunnel vision and out of body experiences. Patient states she has been having these episodes for several years, with the increase in occurrence over the last year. She had an episode occurred this morning and so went to see Dr. Lama. A Holter monitor was placed, and patient had another episode this afternoon, at which time a wide-complex tachycardia lasting 3 minutes was noted on the Holter monitor. Patient was told to come in for further evaluation. Patient has history of Konrad's thyroiditis, ankylosing spondylitis, and alpha 1 antitrypsin disorder. She is status post cholecystectomy. She denies alcohol or tobacco use. She denies any changes in her thyroid medications recently. She currently denies any fever, vision changes, chest pain, shortness of breath, abdominal pain, nausea or vomiting, or any other complaints at this time. She stated she did have some chest discomfort and left neck discomfort when she was having the episode. She was admitted to the telemetry unit. After further discussion with her primary studio associate Dr. Luevano he recommended and requested that the patient undergo an invasive cardiac catheterization workup. After that depending on the findings patient would need an EP referral Past Medical History Allergies/Adverse Reactions: Allergies Penicillins Allergy (Verified 09/17/18 17:55) Hives hydrocodone bitartrate [From Vicodin] Adverse Reaction (Verified 09/18/18 00:14) Other Pain in stomach, n/v morphine Adverse Reaction (Verified 09/17/18 17:55) Nausea Home Medications: Ambulatory Orders Medication Instructions Recorded Levothyroxine [Synthroid] 100 mcg PO [id number] 11/10/17 Adalimumab [Humira] 40 mg SQ UD 08/30/18 Ibuprofen 600 mg PO PRN PRN 09/17/18 Omeprazole [Prilosec] 20 mg PO DAILY 09/17/18 Past Medical History (Chronic Problems): Chronic Problems Morbid obesity (Chronic) Hypothyroidism (Chronic) Ankylosing spondylitis (Chronic) GERD (gastroesophageal reflux disease) (Chronic) Zahek-1-[id number] deficiency (Chronic) Surgical History: - - Cholecystectomy, x 1, T+A. 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 Paternal History Items: - - Patient father with history of heart disease, status post [place] with PCI x2 in 2016. Lives: Spouse/ Significant Other - Patient was with her and son. Smoking Status: Former smoker Tobacco Use: Cigarettes Alcohol: None Drugs: None Review of Systems - Review of Systems General: Denies: Fever, Night Sweats, Fatigue HEENT: Denies: Vision Change Cardiovascular: Reports: Palpitations, Dizziness, Near Syncope. Denies: Chest Discomfort, Shortness of Breath, Orthopnea, PND, Peripheral Edema, Lightheadedness, Syncope Respiratory: Denies: Cough, Sputum Production, Hemoptysis Gastrointestinal: Denies: Hematemesis, Hematochezia, Melena Genitourinary: Denies: Dysuria, Hematuria Muscoloskeletal: Denies: Myalgias Skin: Denies: Rash Neurological: Reports: Dizziness Psychiatric: Denies: Anxiety Endocrine: Denies: Unexplained Weight Loss Hematologic/ Lymphatic: Denies: Anemia Subjectve: Pleasant lady in no apparent distress Objective: Vital Signs Temp Pulse Resp BP Pulse Ox 98.1 F 97 18 126/80 H 98 09/18/18 06:32 09/18/18 06:32 09/18/18 06:32 09/18/18 06:32 09/18/18 06:32 Oxygen Delivery Method Room Air Weight: 374 lb 9.046 oz Body Mass Index (BMI) 60.4 Finger Stick Blood Glucose 105 Intake and Output for Last 24 Hours 09/16/18 09/17/18 09/18/18 23:59 23:59 23:59 Intake Total 830 / 830 Balance 830 / 830 General: Awake, Alert, Oriented x 3 HEENT: PERRL, EOMI, Sclera Non Icteric Neck: Supple, Good ROM, No Lymph Node Enlargement Lungs: Clear to auscultation Cardiovascular: Regular Rhythm, Normal S1, Normal S2, No Murmurs, No Rubs, No Gallops Vascular: No Carotid Bruits, Normal Femoral Pulses, Normal Radial Pulses, Normal Dorsalis Pedal Pulse, Normal Posterior Tibial Pulses Abdomen: Bowel Sounds Present, Soft, Non Tender, No HSM, No Organomegaly Extremities: No Cyanosis, No Clubbing, No edema Neurological: No Focal Motor or Sensory Deficit Psych/Mental Status: Appropriate 09/17/18 18:25: WBC 14.3 H, RBC 5.29, Hgb 14.9, Hct 45.8, MCV 86.6, MCH 28.2, MCHC 32.5, RDW 14.3, RDW Differential 44.9 H, Plt Count 212, MPV 11.8, Immature Gran % (Auto) 0.200, Neut % (Auto) 61.5, Lymph % (Auto) 29.5, [place] % (Auto) 7.5, Eos % (Auto) 1.2, Baso % (Auto) 0.1, Absolute Neuts (auto) 8.8 H, Total Counted Not Reportable 09/17/18 18:25: PT 13.0, INR 1.0, APTT 27.2 09/17/18 18:25: Sodium 139, Potassium 3.6, Chloride 105, Carbon Dioxide 26.0, Anion Gap 8, BUN 9, Creatinine 0.79, Est GFR (MDRD) Af Amer 107, Est GFR (MDRD) Non-Af 88, BUN/Creatinine Ratio 11.4, Glucose 108 H, Calcium 8.9, Magnesium 1.8, Troponin I < 0.015 09/17/18 18:25: Hemoglobin A1c 5.7 09/17/18 21:53: Troponin I < 0.015 09/18/18 00:20: Urine Color Yellow, Urine Clarity Clear, Urine pH 7.0, Ur Specific [place] 1.010, Urine Protein Negative, Urine Glucose (UA) Normal, Urine Ketones Negative, Urine Occult Blood Negative, Urine Nitrite Negative, Urine Bilirubin Negative, Urine Urobilinogen Normal, Ur Leukocyte Esterase Negative, Urine RBC 0 SEEN, Urine WBC 0 SEEN 09/18/18 00:28: Troponin I < 0.015 09/18/18 05:00: WBC 9.9, RBC 4.74, Hgb 13.5, Hct 40.8, MCV 86.1, MCH 28.5, MCHC 33.1, RDW 14.4, RDW Differential 44.5 H, Plt Count 223, MPV 11.3, Immature Gran % (Auto) 0.200, Neut % (Auto) 52.3, Lymph % (Auto) 35.7, [place] % (Auto) 9.9, Eos % (Auto) 1.7, Baso % (Auto) 0.2, Absolute Neuts (auto) 5.2, Total Counted Not Reportable 09/18/18 05:00: Sodium 143, Potassium 4.1, Chloride 110 H, Carbon Dioxide 27.0, Anion Gap 6, BUN 9, Creatinine 0.73, Est GFR (MDRD) Af Amer 116, Est GFR (MDRD) Non-Af 96, BUN/Creatinine Ratio 12.3, Glucose 95, Calcium 8.5, Triglycerides 65, Cholesterol 157, LDL Cholesterol 98, VLDL Cholesterol 13, HDL Cholesterol 46 09/18/18 05:00: PT 13.3, INR 1.0, APTT 27.2 Rhythm: EKG: Normal sinus rhythm with no acute changes Assessment/Plan 1. Palpitations with wide complex tachycardia The etiology of the above is unclear at this particular time. I have not personally reviewed the telemetry strips but after discussion with the primary studio associate who has reviewed the above he recommends a cardiac catheterization. The risk benefits alternatives have been explained to the patient who understands and agrees to proceed. Depending on the findings further recommendations will be made. Thank you for allowing me to participate in the care of your patient. Please don't hesitate to call if any issues arise
[2018-09-18] MEDS: 0.9% Normal Saline 1,000 ML 15 ML IV (07:05)
--- NOTE | 2018-09-18 07:06 | CON.PCM_ITS ---
Reason for Consult Date of Consultation: 09/18/18 Reason for Consultation: Evaluation of palpitations History of Present Illness: The patient is a 33 year old F who presents for episodes of her heart racing, resulting in tunnel vision and out of body experiences. Patient states she has been having these episodes for several years, with the increase in occurrence over the last year. She had an episode occurred this morning and so went to see Dr. Lama. A Holter monitor was placed, and patient had another episode this afternoon, at which time a wide-complex tachycardia lasting 3 minutes was noted on the Holter monitor. Patient was told to come in for further evaluation. Patient has history of Konrad's thyroiditis, ankylosing spondylitis, and alpha 1 antitrypsin disorder. She is status post cholecystectomy. She denies alcohol or tobacco use. She denies any changes in her thyroid medications recently. She currently denies any fever, vision changes, chest pain, shortness of breath, abdominal pain, nausea or vomiting, or any other complaints at this time. She stated she did have some chest discomfort and left neck discomfort when she was having the episode. She was admitted to the telemetry unit. After further discussion with her primary torpedo man Dr. Luevano he recommended and requested that the patient undergo an invasive cardiac catheterization workup. After that depending on the findings patient would need an EP referral Past Medical History Allergies/Adverse Reactions: Allergies Penicillins Allergy (Verified 09/17/18 17:55) Hives hydrocodone bitartrate [From Vicodin] Adverse Reaction (Verified 09/18/18 00:14) Other Pain in stomach, n/v morphine Adverse Reaction (Verified 09/17/18 17:55) Nausea Home Medications: Ambulatory Orders Medication Instructions Recorded Levothyroxine [Synthroid] 100 mcg PO MOTUWETHFRSA 11/10/17 Adalimumab [Humira] 40 mg SQ UD 08/30/18 Ibuprofen 600 mg PO PRN PRN 09/17/18 Omeprazole [Prilosec] 20 mg PO DAILY 09/17/18 Past Medical History (Chronic Problems): Chronic Problems Morbid obesity (Chronic) Hypothyroidism (Chronic) Ankylosing spondylitis (Chronic) GERD (gastroesophageal reflux disease) (Chronic) [id number] deficiency (Chronic) Surgical History: - - Cholecystectomy, x 1, T+A. 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 Paternal History Items: - - Patient father with history of heart disease, status post [place] with PCI x2 in 2016. Lives: Spouse/ Significant Other - Patient was with her and son. Smoking Status: Former smoker Tobacco Use: Cigarettes Alcohol: None Drugs: None Review of Systems - Review of Systems General: Denies: Fever, Night Sweats, Fatigue HEENT: Denies: Vision Change Cardiovascular: Reports: Palpitations, Dizziness, Near Syncope. Denies: Chest Discomfort, Shortness of Breath, Orthopnea, PND, Peripheral Edema, Lightheadedness, Syncope Respiratory: Denies: Cough, Sputum Production, Hemoptysis Gastrointestinal: Denies: Hematemesis, Hematochezia, Melena Genitourinary: Denies: Dysuria, Hematuria Muscoloskeletal: Denies: Myalgias Skin: Denies: Rash Neurological: Reports: Dizziness Psychiatric: Denies: Anxiety Endocrine: Denies: Unexplained Weight Loss Hematologic/ Lymphatic: Denies: Anemia Subjectve: Pleasant lady in no apparent distress Objective: Vital Signs Temp Pulse Resp BP Pulse Ox 98.1 F 97 18 126/80 H 98 09/18/18 06:32 09/18/18 06:32 09/18/18 06:32 09/18/18 06:32 09/18/18 06:32 Oxygen Delivery Method Room Air Weight: 374 lb 9.046 oz Body Mass Index (BMI) 60.4 Finger Stick Blood Glucose 105 Intake and Output for Last 24 Hours 09/16/18 09/17/18 09/18/18 23:59 23:59 23:59 Intake Total 830 / 830 Balance 830 / 830 General: Awake, Alert, Oriented x 3 HEENT: PERRL, EOMI, Sclera Non Icteric Neck: Supple, Good ROM, No Lymph Node Enlargement Lungs: Clear to auscultation Cardiovascular: Regular Rhythm, Normal S1, Normal S2, No Murmurs, No Rubs, No Gallops Vascular: No Carotid Bruits, Normal Femoral Pulses, Normal Radial Pulses, Normal Dorsalis Pedal Pulse, Normal Posterior Tibial Pulses Abdomen: Bowel Sounds Present, Soft, Non Tender, No HSM, No Organomegaly Extremities: No Cyanosis, No Clubbing, No edema Neurological: No Focal Motor or Sensory Deficit Psych/Mental Status: Appropriate 09/17/18 18:25: WBC 14.3 H, RBC 5.29, Hgb 14.9, Hct 45.8, MCV 86.6, MCH 28.2, MCHC 32.5, RDW 14.3, RDW Differential 44.9 H, Plt Count 212, MPV 11.8, Immature Gran % (Auto) 0.200, Neut % (Auto) 61.5, Lymph % (Auto) 29.5, [place] % (Auto) 7.5, Eos % (Auto) 1.2, Baso % (Auto) 0.1, Absolute Neuts (auto) 8.8 H, Total Counted Not Reportable 09/17/18 18:25: PT 13.0, INR 1.0, APTT 27.2 09/17/18 18:25: Sodium 139, Potassium 3.6, Chloride 105, Carbon Dioxide 26.0, Anion Gap 8, BUN 9, Creatinine 0.79, Est GFR (MDRD) Af Amer 107, Est GFR (MDRD) Non-Af 88, BUN/Creatinine Ratio 11.4, Glucose 108 H, Calcium 8.9, Magnesium 1.8, Troponin I < 0.015 09/17/18 18:25: Hemoglobin A1c 5.7 09/17/18 21:53: Troponin I < 0.015 09/18/18 00:20: Urine Color Yellow, Urine Clarity Clear, Urine pH 7.0, Ur Specific [place] 1.010, Urine Protein Negative, Urine Glucose (UA) Normal, Urine Ketones Negative, Urine Occult Blood Negative, Urine Nitrite Negative, Urine Bilirubin Negative, Urine Urobilinogen Normal, Ur Leukocyte Esterase Negative, Urine RBC 0 SEEN, Urine WBC 0 SEEN 09/18/18 00:28: Troponin I < 0.015 09/18/18 05:00: WBC 9.9, RBC 4.74, Hgb 13.5, Hct 40.8, MCV 86.1, MCH 28.5, MCHC 33.1, RDW 14.4, RDW Differential 44.5 H, Plt Count 223, MPV 11.3, Immature Gran % (Auto) 0.200, Neut % (Auto) 52.3, Lymph % (Auto) 35.7, [place] % (Auto) 9.9, Eos % (Auto) 1.7, Baso % (Auto) 0.2, Absolute Neuts (auto) 5.2, Total Counted Not Reportable 09/18/18 05:00: Sodium 143, Potassium 4.1, Chloride 110 H, Carbon Dioxide 27.0, Anion Gap 6, BUN 9, Creatinine 0.73, Est GFR (MDRD) Af Amer 116, Est GFR (MDRD) Non-Af 96, BUN/Creatinine Ratio 12.3, Glucose 95, Calcium 8.5, Triglycerides 65, Cholesterol 157, LDL Cholesterol 98, VLDL Cholesterol 13, HDL Cholesterol 46 09/18/18 05:00: PT 13.3, INR 1.0, APTT 27.2 Rhythm: EKG: Normal sinus rhythm with no acute changes Assessment/Plan 1. Palpitations with wide complex tachycardia * The etiology of the above is unclear at this particular time. I have not personally reviewed the telemetry strips but after discussion with the primary torpedo man who has reviewed the above he recommends a cardiac catheterization. The risk benefits alternatives have been explained to the patient who understands and agrees to proceed. Depending on the findings further recommendations will be made. * * Thank you for allowing me to participate in the care of your patient. Please don't hesitate to call if any issues arise
--- NOTE | 2018-09-18 08:06 | PCM.CONS.C ---
Reason for Consult History of Present Illness: The patient is a 33 year old F [] Past Medical History Allergies/Adverse Reactions: Allergies Penicillins Allergy (Verified 09/17/18 17:55) Hives hydrocodone bitartrate [From Vicodin] Adverse Reaction (Verified 09/18/18 00:14) Other Pain in stomach, n/v morphine Adverse Reaction (Verified 09/17/18 17:55) Nausea Home Medications: Ambulatory Orders Medication Instructions Recorded Levothyroxine [Synthroid] 100 mcg PO MOTUWETHFRSA 11/10/17 Adalimumab [Humira] 40 mg SQ UD 08/30/18 Ibuprofen 600 mg PO PRN PRN 09/17/18 Omeprazole [Prilosec] 20 mg PO DAILY 09/17/18 Past Medical History (Chronic Problems): Chronic Problems Morbid obesity (Chronic) Hypothyroidism (Chronic) Ankylosing spondylitis (Chronic) GERD (gastroesophageal reflux disease) (Chronic) Ilrfp-2-[id number] deficiency (Chronic) Surgical History: - - Cholecystectomy, x 1, T+A. 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 Paternal History Items: - - Patient father with history of heart disease, status post [place] with PCI x2 in 2015. Lives: Spouse/ Significant Other - Patient was with her and son. Smoking Status: Former smoker Tobacco Use: Cigarettes Alcohol: None Drugs: None Objective: Vital Signs Temp Pulse Resp BP Pulse Ox 98.1 F 82 18 126/80 H 96 09/18/18 06:32 09/18/18 06:54 09/18/18 06:32 09/18/18 06:32 09/18/18 08:03 Oxygen Delivery Method Room Air Weight: 374 lb 9.046 oz Body Mass Index (BMI) 60.4 Finger Stick Blood Glucose 105 Intake and Output for Last 24 Hours 09/16/18 09/17/18 09/18/18 23:59 23:59 23:59 Intake Total 830 / 830 Balance 830 / 830 09/17/18 18:25: WBC 14.3 H, RBC 5.29, Hgb 14.9, Hct 45.8, MCV 86.6, MCH 28.2, MCHC 32.5, RDW 14.3, RDW Differential 44.9 H, Plt Count 212, MPV 11.8, Immature Gran % (Auto) 0.200, Neut % (Auto) 61.5, Lymph % (Auto) 29.5, [place] % (Auto) 7.5, Eos % (Auto) 1.2, Baso % (Auto) 0.1, Absolute Neuts (auto) 8.8 H, Total Counted Not Reportable 09/17/18 18:25: PT 13.0, INR 1.0, APTT 27.2 09/17/18 18:25: Sodium 139, Potassium 3.6, Chloride 105, Carbon Dioxide 26.0, Anion Gap 8, BUN 9, Creatinine 0.79, Est GFR (MDRD) Af Amer 107, Est GFR (MDRD) Non-Af 88, BUN/Creatinine Ratio 11.4, Glucose 108 H, Calcium 8.9, Magnesium 1.8, Troponin I < 0.015 09/17/18 18:25: Hemoglobin A1c 5.7 09/17/18 21:53: Troponin I < 0.015 09/18/18 00:20: Urine Color Yellow, Urine Clarity Clear, Urine pH 7.0, Ur Specific [place] 1.010, Urine Protein Negative, Urine Glucose (UA) Normal, Urine Ketones Negative, Urine Occult Blood Negative, Urine Nitrite Negative, Urine Bilirubin Negative, Urine Urobilinogen Normal, Ur Leukocyte Esterase Negative, Urine RBC 0 SEEN, Urine WBC 0 SEEN 09/18/18 00:28: Troponin I < 0.015 09/18/18 05:00: WBC 9.9, RBC 4.74, Hgb 13.5, Hct 40.8, MCV 86.1, MCH 28.5, MCHC 33.1, RDW 14.4, RDW Differential 44.5 H, Plt Count 223, MPV 11.3, Immature Gran % (Auto) 0.200, Neut % (Auto) 52.3, Lymph % (Auto) 35.7, [place] % (Auto) 9.9, Eos % (Auto) 1.7, Baso % (Auto) 0.2, Absolute Neuts (auto) 5.2, Total Counted Not Reportable 09/18/18 05:00: Sodium 143, Potassium 4.1, Chloride 110 H, Carbon Dioxide 27.0, Anion Gap 6, BUN 9, Creatinine 0.73, Est GFR (MDRD) Af Amer 116, Est GFR (MDRD) Non-Af 96, BUN/Creatinine Ratio 12.3, Glucose 95, Calcium 8.5, Triglycerides 65, Cholesterol 157, LDL Cholesterol 98, VLDL Cholesterol 13, HDL Cholesterol 46 09/18/18 05:00: PT 13.3, INR 1.0, APTT 27.2 Rhythm: EKG: ECHO: Stress Test: Cardiac Cath: PCI: CT Surgery: Holter monitor: EPS: PPM: CXR: Chest CT Scan: Assessment/Plan 1. Palpitations with wide complex tachycardia The etiology of the above is unclear at this particular time. I have not personally reviewed the telemetry strips but after discussion with the primary textile pin worker who has reviewed the above he recommends a cardiac catheterization. The risk benefits alternatives have been explained to the patient who understands and agrees to proceed. Depending on the findings further recommendations will be made. Addendum: Patient underwent cardiac catheterization this morning which demonstrated normal coronary arteries and preserved left ventricular systolic function. Will discuss with primary textile pin worker about EP referral. Thank you for allowing me to participate in the care of your patient. Please don't hesitate to call if any issues arise
--- NOTE | 2018-09-18 08:15 | CL.D_ITS ---
Patient Name: CURLY COWART Study Date: 09/18/2018 Performing: Rafael Shipley MD Ht: 66 inches 168 cm : 1985 Wt: 375.3 lbs 170 kg Age: 33 Gender: female BSA: 2.62 PROCEDURE(S) PERFORMED [id number] CLINICAL PROFILE AND INDICATIONS Indications: Cardiac Arrythmia Heart Failure: None Stress/Imaging Stress/Image Study Performed: No CAD Presentations: No Sxs, no angina. CONCLUSIONS Normal coronary arteries Normal LV size, wall motion,and systolic function RECOMMENDATIONS Refer for EP evaluation. Due to wide complex tachycardia DESCRIPTION OF PROCEDURE The patient arrived to the procedure lab. The risks and benefits of the procedure as well as a full d escription of our services here and current unavailability of surgical backup were fully explained to the patient and/or their significant other prior to the catheterization. The Timeout was completed, verifying the correct patient and procedure. The patient's procedural site was prepped and draped in the usual fashion. Local anesthetic was given subcutaneously to right radial region with Lidocaine 2% . Using a modified Seldinger technique, arterial access was obtained via the right radial artery, a 6 Fr sheath was inserted. Right Coronary Artery selective angiography was then performed in multiple v iews using a 5 Fr. 4.0 [place] catheter. Left Coronary Artery selective angiography was performed in mu ltiple views using a 5 Fr. JL3.5 catheter. Left Ventriculography was performed in BELTRE projection usin g a 5 Fr. Pigtail catheter. LV to AO pullback pressures were then recorded.The arterial sheath was pulled and a TR Band was applied for hemostasis CORONARY ANGIOGRAPHY DOMINANCE: Right Dominant LEFT HEART ASSESSMENT Left Ventricular Ejection Fraction: by LV Gram 60 % Normal LV wall motion Normal Left Ventricular systolic function Normal Left Ventricular systolic function LEFT MAIN: Angiographically normal LEFT ANTERIOR DECENDING ARTERY: Angiographically normal CIRCUMFLEX ARTERY: Angiographically normal RIGHT CORONARY ARTERY: Angiographically normal COMPLICATIONS No Complications PROCEDURE MEDICATIONS Fentanyl 50 mcg IV Versed 1 mg IV Versed 1 mg IV Fentanyl 25 mcg IV Versed 1 mg IV Fentanyl 50 mcg IV Oxygen: 2 L/min via nasal cannula SUMMARY OF HEMODYNAMIC DATA Time AIR REST ECG 07:13:53 AO 109/66 (86) SA 07:41:12 LV 136/2, 12 07:59:09 LV 128/2, 9 07:59:16 LV 139/-10, 13 08:00:26 LV 134/-10, 13 08:00:33 LVp 143/-9, 13 08:00:39 AOp 143/81 (110) 08:00:44 Signed By Rafael Shipley MD On 09/18/2018 08:14:26 Rafael Shipley MD
--- NOTE | 2018-09-18 08:30 | CASEMGMT ---
According to [employer] website, the following are in-network tertiary facilities: [facility], [facility], [facility], [facility], [facility], [facility], [facility], [facility], [facility] and . Bev POWELL CM
[2018-09-18] MEDS: HYDROcodone Bitartrate/Apap 5/325 Tablet PO (08:41)
[2018-09-18] MEDS: 0.9% NaCl Peripheral Flush Adult/Peds IV (08:41)
--- NOTE | 2018-09-18 10:36 | PCM.DC.SUM ---
<Johanny Swanson - Last Filed: 09/18/18 10:54> Discharge Date and Diagnosis Date of Admission: 09/17/18 Date of Discharge: 09/18/18 - Primary Discharge Diagnosis Active and Suspected Problems 1. Wide-complex tachycardia 2. Hypothyroidism 3. GERD 4. Alpha-1 antitrypsin deficiency 5. Morbid obesity 6. BRISEYDA 7. Anxiety/depression 8. Ankylosing spondylitis - Secondary Discharge Diagnosis Chronic Problems Morbid obesity (Chronic) Hypothyroidism (Chronic) Ankylosing spondylitis (Chronic) GERD (gastroesophageal reflux disease) (Chronic) [id number] deficiency (Chronic) Hospital Course and Treatment Imaging Results: Diagnostic Data Chest X-Ray 09/17/18 18:31 IMPRESSION: No radiographic evidence of acute cardiopulmonary disease. Electronically Signed: Rosario June MD at 19:02 EST , Service support , Dr. Shipley- Cardiology Operations: None Procedures: Cardiac catheterization Summary of Care Provided: The patient is a 33 year old F admitted 09/17/2018 due to symptomatic tachycardia, ventricular tachycardia. She has a past medical history of hypothyroidism, GERD, alpha 1 antitrypsin deficiency following with rheumatology on Humira, GERD, anxiety, depression, BRISEYDA on CPAP, morbid obesity. Patient follows with Dr. Shaikh, F cardiology. She was placed on Holter monitor recently and had noted episodes of tachycardia, symptomatic with palpitations, tunnel vision and lightheadedness. EKG on admission without ST-T changes. Troponin negative. Chest x-ray unremarkable. Patient underwent cardiac catheterization which demonstrated normal coronary arteries. Cardiology recommending transfer to [facility] for EP evaluation given wide complex tachycardia. Patient stable at time of transfer. General: Alert, Oriented x3, Cooperative, No apparent distress HEENT: Atraumatic, PERRLA, EOMI, Normocephalic Oral: Moist Mucosa Neck: Supple, No JVD, Negative Carotid Bruits Lungs: Clear to auscultation, Normal air movement Cardiovascular: Regular rate, Regular Rhythm, Normal S1, Normal S2, No murmurs Abdomen: Bowel Sounds Present, Soft, Non Tender, Non-Distended, obese Extremities: No edema Skin: No rashes, No breakdown Musculoskeletal: No Tenderness to Palpation of Joints or Extremities Lymphatic: No Cervical, Supraclavicular, or Inguinal Adenopathy Neurological: Cranial nerves II-XII grossly intact, Neuro grossly intact Psych/Mental Status: Normal Affect, Appropriate Patient seen and examined prior to discharge. Physical assessment as noted above. Patient is stable for discharge with follow up recommendations as noted above. This patient was seen by CHARISSE Lino under the supervision of Dr. Gonzalez. - Physical Exam Vital Signs Temp Pulse Resp BP Pulse Ox 98.9 F 63 18 111/63 97 09/18/18 09:40 09/18/18 09:40 09/18/18 09:40 09/18/18 09:40 09/18/18 09:40 Oxygen Delivery Method Room Air Weight: 374 lb 9.046 oz Body Mass Index (BMI) 60.4 Finger Stick Blood Glucose 105 Intake and Output for Last 24 Hours 09/16/18 09/17/18 09/18/18 23:59 23:59 23:59 Intake Total 830 / 830 Balance 830 / 830 Laboratory Tests Past 24 Hrs 09/17/18 09/17/18 09/17/18 18:25 18:25 18:25 WBC 14.3 H RBC 5.29 Hgb 14.9 Hct 45.8 MCV 86.6 MCH 28.2 MCHC 32.5 RDW 14.3 RDW Differential 44.9 H Plt Count 212 MPV 11.8 Immature Gran % (Auto) 0.200 Neut % (Auto) 61.5 Lymph % (Auto) 29.5 [place] % (Auto) 7.5 Eos % (Auto) 1.2 Baso % (Auto) 0.1 Absolute Neuts (auto) 8.8 H Absolute Lymphs (auto) 4.23 Total Counted Not Reportable PT 13.0 INR 1.0 APTT 27.2 Sodium 139 Potassium 3.6 Chloride 105 Carbon Dioxide 26.0 Anion Gap 8 BUN 9 Creatinine 0.79 Estim Creat Clear Calc 93.05 Est GFR (MDRD) Af Amer 107 Est GFR (MDRD) Non-Af 88 BUN/Creatinine Ratio 11.4 Glucose 108 H Hemoglobin A1c Calcium 8.9 Magnesium 1.8 Troponin I < 0.015 Triglycerides Cholesterol LDL Cholesterol VLDL Cholesterol HDL Cholesterol TSH 1.85 Serum , Qual Urine Color Urine Clarity Urine pH Ur Specific [place] Urine Protein Urine Glucose (UA) Urine Ketones Urine Occult Blood Urine Nitrite Urine Bilirubin Urine Urobilinogen Ur Leukocyte Esterase Urine RBC Urine WBC Ur Squamous Epith Cells Urine Bacteria Urine Mucus 09/17/18 09/17/18 09/17/18 18:25 18:25 21:53 WBC RBC Hgb Hct MCV MCH MCHC RDW RDW Differential Plt Count MPV Immature Gran % (Auto) Neut % (Auto) Lymph % (Auto) [place] % (Auto) Eos % (Auto) Baso % (Auto) Absolute Neuts (auto) Absolute Lymphs (auto) Total Counted PT INR APTT Sodium Potassium Chloride Carbon Dioxide Anion Gap BUN Creatinine Estim Creat Clear Calc Est GFR (MDRD) Af Amer Est GFR (MDRD) Non-Af BUN/Creatinine Ratio Glucose Hemoglobin A1c 5.7 Calcium Magnesium Troponin I < 0.015 Triglycerides Cholesterol LDL Cholesterol VLDL Cholesterol HDL Cholesterol TSH Serum , Qual NEGATIVE Urine Color Urine Clarity Urine pH Ur Specific [place] Urine Protein Urine Glucose (UA) Urine Ketones Urine Occult Blood Urine Nitrite Urine Bilirubin Urine Urobilinogen Ur Leukocyte Esterase Urine RBC Urine WBC Ur Squamous Epith Cells Urine Bacteria Urine Mucus 09/18/18 09/18/18 09/18/18 00:20 00:28 05:00 WBC 9.9 RBC 4.74 Hgb 13.5 Hct 40.8 MCV 86.1 MCH 28.5 MCHC 33.1 RDW 14.4 RDW Differential 44.5 H Plt Count 223 MPV 11.3 Immature Gran % (Auto) 0.200 Neut % (Auto) 52.3 Lymph % (Auto) 35.7 [place] % (Auto) 9.9 Eos % (Auto) 1.7 Baso % (Auto) 0.2 Absolute Neuts (auto) 5.2 Absolute Lymphs (auto) 3.54 Total Counted Not Reportable PT INR APTT Sodium Potassium Chloride Carbon Dioxide Anion Gap BUN Creatinine Estim Creat Clear Calc Est GFR (MDRD) Af Amer Est GFR (MDRD) Non-Af BUN/Creatinine Ratio Glucose Hemoglobin A1c Calcium Magnesium Troponin I < 0.015 Triglycerides Cholesterol LDL Cholesterol VLDL Cholesterol HDL Cholesterol TSH Serum , Qual Urine Color Yellow Urine Clarity Clear Urine pH 7.0 Ur Specific [place] 1.010 Urine Protein Negative Urine Glucose (UA) Normal Urine Ketones Negative Urine Occult Blood Negative Urine Nitrite Negative Urine Bilirubin Negative Urine Urobilinogen Normal Ur Leukocyte Esterase Negative Urine RBC 0 SEEN Urine WBC 0 SEEN Ur Squamous Epith Cells 0-5 SEEN Urine Bacteria RARE Urine Mucus 0 SEEN 09/18/18 09/18/18 05:00 05:00 WBC RBC Hgb Hct MCV MCH MCHC RDW RDW Differential Plt Count MPV Immature Gran % (Auto) Neut % (Auto) Lymph % (Auto) [place] % (Auto) Eos % (Auto) Baso % (Auto) Absolute Neuts (auto) Absolute Lymphs (auto) Total Counted PT 13.3 INR 1.0 APTT 27.2 Sodium 143 Potassium 4.1 Chloride 110 H Carbon Dioxide 27.0 Anion Gap 6 BUN 9 Creatinine 0.73 Estim Creat Clear Calc 100.69 Est GFR (MDRD) Af Amer 116 Est GFR (MDRD) Non-Af 96 BUN/Creatinine Ratio 12.3 Glucose 95 Hemoglobin A1c Calcium 8.5 Magnesium Troponin I Triglycerides 65 Cholesterol 157 LDL Cholesterol 98 VLDL Cholesterol 13 HDL Cholesterol 46 TSH Serum , Qual Urine Color Urine Clarity Urine pH Ur Specific [place] Urine Protein Urine Glucose (UA) Urine Ketones Urine Occult Blood Urine Nitrite Urine Bilirubin Urine Urobilinogen Ur Leukocyte Esterase Urine RBC Urine WBC Ur Squamous Epith Cells Urine Bacteria Urine Mucus Home Medications: Medications to take at Discharge Levothyroxine [Synthroid] 100 mcg PO [id number] 11/10/17 Adalimumab [Humira] 40 mg SQ UD 08/30/18 Ibuprofen 600 mg PO PRN PRN 09/17/18 Omeprazole [Prilosec] 20 mg PO DAILY 09/17/18 Primary Care Physician: Kateryna Doctor,Out of [NON-STAFF] - Disposition: Acute care Hospital Minutes spent on discharge:: 35 Patient Condition:: Stable Medical Necessity - Tobacco Use Smoking Status: Former smoker Tobacco Use: Cigarettes Meaningful Use Info Meaningful Use Diagnoses (Choose all that apply): None applicable <Gloria Gonzalez - Last Filed: 09/18/18 14:23> Discharge Date and Diagnosis - Secondary Discharge Diagnosis Chronic Problems History of left heart catheterization (Chronic 09/18/18) Normal coronaries, EF 60% per cath done by Dr. Shipley @ [facility] Morbid obesity (Chronic) Hypothyroidism (Chronic) Ankylosing spondylitis (Chronic) GERD (gastroesophageal reflux disease) (Chronic) [id number] deficiency (Chronic) Hospital Course and Treatment Summary of Care Provided: Patient seen by Johanny MCQUEEN under my supervision Patient is a 33-year-old female with an extensive past medical history as listed. She was admitted with a complaint of periodic episodes of her heart racing. She had been having these episodes for several years and increasing frequency recently. She had an episode morning of admission and so went to see a nuclear physician Dr. Luevano. She had had a Holter monitor placed recently on which was noted episodes of wide-complex tachycardia lasting about 3 minutes. She was therefore told to come into the ED for evaluation. EKG showed no acute ST changes. She had cardiac catheterization which demonstrated normal coronaries. Patient remained stable and is being transferred to [facility] for electrophysiology evaluation of the wide complex tachycardia. Patient seen and examined prior to discharge. She complained of pain at site of cardiac cath. She denied any fever or chills, any cough or chest pain, any palpitations, any abdominal pain, any diarrhea vomiting. Review of systems otherwise negative. Labs and vitals reviewed. o/e: Vital Signs Height 5 ft 6 in Weight: 374 lb 9.046 oz Weight in Pounds 374.6 lbs Pulse Ox 98 Temperature 98.6 F Pulse Rate 60 Respiratory Rate 17 Blood Pressure 129/67 Blood Pressure Position Semi-Fowlers General: Alert, Oriented x3, Cooperative, No apparent distress, morbidly obese HEENT: Atraumatic, PERRLA, EOMI, Normocephalic Oral: Moist Mucosa Neck: Supple, No JVD, Negative Carotid Bruits Lungs: Clear to auscultation, Normal air movement Cardiovascular: Regular rate, Regular Rhythm, Normal S1, Normal S2, No murmurs Abdomen: Bowel Sounds Present, Soft, Non Tender, Non-Distended, obese Extremities: No edema Skin: No rashes, No breakdown Musculoskeletal: No Tenderness to Palpation of Joints or Extremities Lymphatic: No Cervical, Supraclavicular, or Inguinal Adenopathy Neurological: Cranial nerves II-XII grossly intact, Neuro grossly intact Psych/Mental Status: Normal Affect, Appropriate Plan is for transfer to [facility] for EP evaluation. of Johanny Swanson NP C's note which I have reviewed and agree with. - Physical Exam Vital Signs Temp Pulse Resp BP Pulse Ox 98.6 F 60 17 129/67 H 98 09/18/18 12:26 09/18/18 12:26 09/18/18 12:26 09/18/18 12:26 09/18/18 12:26 Oxygen Delivery Method Room Air Weight: 374 lb 9.046 oz Body Mass Index (BMI) 60.4 Finger Stick Blood Glucose 105 Intake and Output for Last 24 Hours 09/16/18 09/17/18 09/18/18 23:59 23:59 23:59 Intake Total 1909 Balance 1909 Laboratory Tests Past 24 Hrs 09/17/18 09/17/18 09/17/18 18:25 18:25 18:25 WBC 14.3 H RBC 5.29 Hgb 14.9 Hct 45.8 MCV 86.6 MCH 28.2 MCHC 32.5 RDW 14.3 RDW Differential 44.9 H Plt Count 212 MPV 11.8 Immature Gran % (Auto) 0.200 Neut % (Auto) 61.5 Lymph % (Auto) 29.5 [place] % (Auto) 7.5 Eos % (Auto) 1.2 Baso % (Auto) 0.1 Absolute Neuts (auto) 8.8 H Absolute Lymphs (auto) 4.23 Total Counted Not Reportable PT 13.0 INR 1.0 APTT 27.2 Sodium 139 Potassium 3.6 Chloride 105 Carbon Dioxide 26.0 Anion Gap 8 BUN 9 Creatinine 0.79 Estim Creat Clear Calc 93.05 Est GFR (MDRD) Af Amer 107 Est GFR (MDRD) Non-Af 88 BUN/Creatinine Ratio 11.4 Glucose 108 H Hemoglobin A1c Calcium 8.9 Magnesium 1.8 Troponin I < 0.015 Triglycerides Cholesterol LDL Cholesterol VLDL Cholesterol HDL Cholesterol TSH 1.85 Serum , Qual Urine Color Urine Clarity Urine pH Ur Specific [place] Urine Protein Urine Glucose (UA) Urine Ketones Urine Occult Blood Urine Nitrite Urine Bilirubin Urine Urobilinogen Ur Leukocyte Esterase Urine RBC Urine WBC Ur Squamous Epith Cells Urine Bacteria Urine Mucus 09/17/18 09/17/18 09/17/18 18:25 18:25 21:53 WBC RBC Hgb Hct MCV MCH MCHC RDW RDW Differential Plt Count MPV Immature Gran % (Auto) Neut % (Auto) Lymph % (Auto) [place] % (Auto) Eos % (Auto) Baso % (Auto) Absolute Neuts (auto) Absolute Lymphs (auto) Total Counted PT INR APTT Sodium Potassium Chloride Carbon Dioxide Anion Gap BUN Creatinine Estim Creat Clear Calc Est GFR (MDRD) Af Amer Est GFR (MDRD) Non-Af BUN/Creatinine Ratio Glucose Hemoglobin A1c 5.7 Calcium Magnesium Troponin I < 0.015 Triglycerides Cholesterol LDL Cholesterol VLDL Cholesterol HDL Cholesterol TSH Serum , Qual NEGATIVE Urine Color Urine Clarity Urine pH Ur Specific [place] Urine Protein Urine Glucose (UA) Urine Ketones Urine Occult Blood Urine Nitrite Urine Bilirubin Urine Urobilinogen Ur Leukocyte Esterase Urine RBC Urine WBC Ur Squamous Epith Cells Urine Bacteria Urine Mucus 09/18/18 09/18/18 09/18/18 00:20 00:28 05:00 WBC 9.9 RBC 4.74 Hgb 13.5 Hct 40.8 MCV 86.1 MCH 28.5 MCHC 33.1 RDW 14.4 RDW Differential 44.5 H Plt Count 223 MPV 11.3 Immature Gran % (Auto) 0.200 Neut % (Auto) 52.3 Lymph % (Auto) 35.7 [place] % (Auto) 9.9 Eos % (Auto) 1.7 Baso % (Auto) 0.2 Absolute Neuts (auto) 5.2 Absolute Lymphs (auto) 3.54 Total Counted Not Reportable PT INR APTT Sodium Potassium Chloride Carbon Dioxide Anion Gap BUN Creatinine Estim Creat Clear Calc Est GFR (MDRD) Af Amer Est GFR (MDRD) Non-Af BUN/Creatinine Ratio Glucose Hemoglobin A1c Calcium Magnesium Troponin I < 0.015 Triglycerides Cholesterol LDL Cholesterol VLDL Cholesterol HDL Cholesterol TSH Serum , Qual Urine Color Yellow Urine Clarity Clear Urine pH 7.0 Ur Specific [place] 1.010 Urine Protein Negative Urine Glucose (UA) Normal Urine Ketones Negative Urine Occult Blood Negative Urine Nitrite Negative Urine Bilirubin Negative Urine Urobilinogen Normal Ur Leukocyte Esterase Negative Urine RBC 0 SEEN Urine WBC 0 SEEN Ur Squamous Epith Cells 0-5 SEEN Urine Bacteria RARE Urine Mucus 0 SEEN 09/18/18 09/18/18 05:00 05:00 WBC RBC Hgb Hct MCV MCH MCHC RDW RDW Differential Plt Count MPV Immature Gran % (Auto) Neut % (Auto) Lymph % (Auto) [place] % (Auto) Eos % (Auto) Baso % (Auto) Absolute Neuts (auto) Absolute Lymphs (auto) Total Counted PT 13.3 INR 1.0 APTT 27.2 Sodium 143 Potassium 4.1 Chloride 110 H Carbon Dioxide 27.0 Anion Gap 6 BUN 9 Creatinine 0.73 Estim Creat Clear Calc 100.69 Est GFR (MDRD) Af Amer 116 Est GFR (MDRD) Non-Af 96 BUN/Creatinine Ratio 12.3 Glucose 95 Hemoglobin A1c Calcium 8.5 Magnesium Troponin I Triglycerides 65 Cholesterol 157 LDL Cholesterol 98 VLDL Cholesterol 13 HDL Cholesterol 46 TSH Serum , Qual Urine Color Urine Clarity Urine pH Ur Specific [place] Urine Protein Urine Glucose (UA) Urine Ketones Urine Occult Blood Urine Nitrite Urine Bilirubin Urine Urobilinogen Ur Leukocyte Esterase Urine RBC Urine WBC Ur Squamous Epith Cells Urine Bacteria Urine Mucus Code Visit Inpatient E&M: [id number] Disch Hosp
--- NOTE | 2018-09-18 10:40 | DS.PCM_ITS ---
<Johanny Swanson - Last Filed: 09/18/18 10:54> Discharge Date and Diagnosis Date of Admission: 09/17/18 Date of Discharge: 09/18/18 - Primary Discharge Diagnosis Active and Suspected Problems 1. Wide-complex tachycardia 2. Hypothyroidism 3. GERD 4. Alpha-1 antitrypsin deficiency 5. Morbid obesity 6. BRISEYDA 7. Anxiety/depression 8. Ankylosing spondylitis - Secondary Discharge Diagnosis Chronic Problems Morbid obesity (Chronic) Hypothyroidism (Chronic) Ankylosing spondylitis (Chronic) GERD (gastroesophageal reflux disease) (Chronic) Gyuad-1-iatomfsywau deficiency (Chronic) Hospital Course and Treatment Imaging Results: Diagnostic Data Chest X-Ray 09/17/18 18:31 IMPRESSION: No radiographic evidence of acute cardiopulmonary disease. Electronically Signed: Rosario June MD at 19:02 EST , Service support , Dr. Shipley- Cardiology Operations: None Procedures: Cardiac catheterization Summary of Care Provided: The patient is a 33 year old F admitted 09/17/2018 due to symptomatic tachycardia , ventricular tachycardia. She has a past medical history of hypothyroidism, GERD, alpha 1 antitrypsin deficiency following with rheumatology on Humira, GERD, anxiety, depression, BRISEYDA on CPAP, morbid obesity. Patient follows with Dr. Shaikh, F cardiology. She was placed on Holter monitor recently and had noted episodes of tachycardia, symptomatic with palpitations, tunnel vision and lightheadedness. EKG on admission without ST-T changes. Troponin negative. Chest x-ray unremarkable. Patient underwent cardiac catheterization which demonstrated normal coronary arteries. Cardiology recommending transfer to [facility] for EP evaluation given wide complex tachycardia. Patient stable at time of transfer. General: Alert, Oriented x3, Cooperative, No apparent distress HEENT: Atraumatic, PERRLA, EOMI, Normocephalic Oral: Moist Mucosa Neck: Supple, No JVD, Negative Carotid Bruits Lungs: Clear to auscultation, Normal air movement Cardiovascular: Regular rate, Regular Rhythm, Normal S1, Normal S2, No murmurs Abdomen: Bowel Sounds Present, Soft, Non Tender, Non-Distended, obese Extremities: No edema Skin: No rashes, No breakdown Musculoskeletal: No Tenderness to Palpation of Joints or Extremities Lymphatic: No Cervical, Supraclavicular, or Inguinal Adenopathy Neurological: Cranial nerves II-XII grossly intact, Neuro grossly intact Psych/Mental Status: Normal Affect, Appropriate Patient seen and examined prior to discharge. Physical assessment as noted above. Patient is stable for discharge with follow up recommendations as noted above. This patient was seen by CHARISSE Lino under the supervision of Dr. Gonzalez. - Physical Exam Vital Signs Temp Pulse Resp BP Pulse Ox 98.9 F 63 18 111/63 97 09/18/18 09:40 09/18/18 09:40 09/18/18 09:40 09/18/18 09:40 09/18/18 09:40 Oxygen Delivery Method Room Air Weight: 374 lb 9.046 oz Body Mass Index (BMI) 60.4 Finger Stick Blood Glucose 105 Intake and Output for Last 24 Hours 09/16/18 09/17/18 09/18/18 23:59 23:59 23:59 Intake Total 830 / 830 Balance 830 / 830 Laboratory Tests Past 24 Hrs 09/17/18 09/17/18 09/17/18 18:25 18:25 18:25 WBC 14.3 H RBC 5.29 Hgb 14.9 Hct 45.8 MCV 86.6 MCH 28.2 MCHC 32.5 RDW 14.3 RDW Differential 44.9 H Plt Count 212 MPV 11.8 Immature Gran % (Auto) 0.200 Neut % (Auto) 61.5 Lymph % (Auto) 29.5 [place] % (Auto) 7.5 Eos % (Auto) 1.2 Baso % (Auto) 0.1 Absolute Neuts (auto) 8.8 H Absolute Lymphs (auto) 4.23 Total Counted Not Reportable PT 13.0 INR 1.0 APTT 27.2 Sodium 139 Potassium 3.6 Chloride 105 Carbon Dioxide 26.0 Anion Gap 8 BUN 9 Creatinine 0.79 Estim Creat Clear Calc 93.05 Est GFR (MDRD) Af Amer 107 Est GFR (MDRD) Non-Af 88 BUN/Creatinine Ratio 11.4 Glucose 108 H Hemoglobin A1c Calcium 8.9 Magnesium 1.8 Troponin I < 0.015 Triglycerides Cholesterol LDL Cholesterol VLDL Cholesterol HDL Cholesterol TSH 1.85 Serum , Qual Urine Color Urine Clarity Urine pH Ur Specific [place] Urine Protein Urine Glucose (UA) Urine Ketones Urine Occult Blood Urine Nitrite Urine Bilirubin Urine Urobilinogen Ur Leukocyte Esterase Urine RBC Urine WBC Ur Squamous Epith Cells Urine Bacteria Urine Mucus 09/17/18 09/17/18 09/17/18 18:25 18:25 21:53 WBC RBC Hgb Hct MCV MCH MCHC RDW RDW Differential Plt Count MPV Immature Gran % (Auto) Neut % (Auto) Lymph % (Auto) [place] % (Auto) Eos % (Auto) Baso % (Auto) Absolute Neuts (auto) Absolute Lymphs (auto) Total Counted PT INR APTT Sodium Potassium Chloride Carbon Dioxide Anion Gap BUN Creatinine Estim Creat Clear Calc Est GFR (MDRD) Af Amer Est GFR (MDRD) Non-Af BUN/Creatinine Ratio Glucose Hemoglobin A1c 5.7 Calcium Magnesium Troponin I < 0.015 Triglycerides Cholesterol LDL Cholesterol VLDL Cholesterol HDL Cholesterol TSH Serum , Qual NEGATIVE Urine Color Urine Clarity Urine pH Ur Specific [place] Urine Protein Urine Glucose (UA) Urine Ketones Urine Occult Blood Urine Nitrite Urine Bilirubin Urine Urobilinogen Ur Leukocyte Esterase Urine RBC Urine WBC Ur Squamous Epith Cells Urine Bacteria Urine Mucus 09/18/18 09/18/18 09/18/18 00:20 00:28 05:00 WBC 9.9 RBC 4.74 Hgb 13.5 Hct 40.8 MCV 86.1 MCH 28.5 MCHC 33.1 RDW 14.4 RDW Differential 44.5 H Plt Count 223 MPV 11.3 Immature Gran % (Auto) 0.200 Neut % (Auto) 52.3 Lymph % (Auto) 35.7 [place] % (Auto) 9.9 Eos % (Auto) 1.7 Baso % (Auto) 0.2 Absolute Neuts (auto) 5.2 Absolute Lymphs (auto) 3.54 Total Counted Not Reportable PT INR APTT Sodium Potassium Chloride Carbon Dioxide Anion Gap BUN Creatinine Estim Creat Clear Calc Est GFR (MDRD) Af Amer Est GFR (MDRD) Non-Af BUN/Creatinine Ratio Glucose Hemoglobin A1c Calcium Magnesium Troponin I < 0.015 Triglycerides Cholesterol LDL Cholesterol VLDL Cholesterol HDL Cholesterol TSH Serum , Qual Urine Color Yellow Urine Clarity Clear Urine pH 7.0 Ur Specific [place] 1.010 Urine Protein Negative Urine Glucose (UA) Normal Urine Ketones Negative Urine Occult Blood Negative Urine Nitrite Negative Urine Bilirubin Negative Urine Urobilinogen Normal Ur Leukocyte Esterase Negative Urine RBC 0 SEEN Urine WBC 0 SEEN Ur Squamous Epith Cells 0-5 SEEN Urine Bacteria RARE Urine Mucus 0 SEEN 09/18/18 09/18/18 05:00 05:00 WBC RBC Hgb Hct MCV MCH MCHC RDW RDW Differential Plt Count MPV Immature Gran % (Auto) Neut % (Auto) Lymph % (Auto) [place] % (Auto) Eos % (Auto) Baso % (Auto) Absolute Neuts (auto) Absolute Lymphs (auto) Total Counted PT 13.3 INR 1.0 APTT 27.2 Sodium 143 Potassium 4.1 Chloride 110 H Carbon Dioxide 27.0 Anion Gap 6 BUN 9 Creatinine 0.73 Estim Creat Clear Calc 100.69 Est GFR (MDRD) Af Amer 116 Est GFR (MDRD) Non-Af 96 BUN/Creatinine Ratio 12.3 Glucose 95 Hemoglobin A1c Calcium 8.5 Magnesium Troponin I Triglycerides 65 Cholesterol 157 LDL Cholesterol 98 VLDL Cholesterol 13 HDL Cholesterol 46 TSH Serum , Qual Urine Color Urine Clarity Urine pH Ur Specific [place] Urine Protein Urine Glucose (UA) Urine Ketones Urine Occult Blood Urine Nitrite Urine Bilirubin Urine Urobilinogen Ur Leukocyte Esterase Urine RBC Urine WBC Ur Squamous Epith Cells Urine Bacteria Urine Mucus Home Medications: Medications to take at Discharge Levothyroxine [Synthroid] 100 mcg PO MOTUWETHFRSA 11/10/17 Adalimumab [Humira] 40 mg SQ UD 08/30/18 Ibuprofen 600 mg PO PRN PRN 09/17/18 Omeprazole [Prilosec] 20 mg PO DAILY 09/17/18 Primary Care Physician: Kateryna Doctor,Out of [NON-STAFF] - Disposition: Acute care Hospital Minutes spent on discharge:: 35 Patient Condition:: Stable Medical Necessity - Tobacco Use Smoking Status: Former smoker Tobacco Use: Cigarettes Meaningful Use Info Meaningful Use Diagnoses (Choose all that apply): None applicable <Gloria Gonzalez - Last Filed: 09/18/18 14:23> Discharge Date and Diagnosis - Secondary Discharge Diagnosis Chronic Problems History of left heart catheterization (Chronic 09/18/18) Normal coronaries, EF 60% per cath done by Dr. Shipley @ [facility] Morbid obesity (Chronic) Hypothyroidism (Chronic) Ankylosing spondylitis (Chronic) GERD (gastroesophageal reflux disease) (Chronic) Omfcs-4-mmytloljvos deficiency (Chronic) Hospital Course and Treatment Summary of Care Provided: Patient seen by Johanny MCQUEEN under my supervision Patient is a 33-year-old female with an extensive past medical history as listed. She was admitted with a complaint of periodic episodes of her heart racing. She had been having these episodes for several years and increasing fr equency recently. She had an episode morning of admission and so went to see a parking attendant Dr. Luevano. She had had a Holter monitor placed recently on which was noted episodes of wide-complex tachycardia lasting about 3 minutes. She was therefore told to come into the ED for evaluation. EKG showed no acute ST changes. She had cardiac catheterization which demonstrated normal coronaries. Patient remained stable and is being transferred to [facility] for electrophysiology evaluation of the wide complex tachycardia. Patient seen and examined prior to discharge. She complained of pain at site of cardiac cath. She denied any fever or chills, any cough or chest pain, any palpitations, any abdominal pain, any diarrhea vomiting. Review of systems otherwise negative. Labs and vitals reviewed. o/e: Vital Signs Height 5 ft 6 in Weight: 374 lb 9.046 oz Weight in Pounds 374.6 lbs Pulse Ox 98 Temperature 98.6 F Pulse Rate 60 Respiratory Rate 17 Blood Pressure 129/67 Blood Pressure Position Semi-Fowlers General: Alert, Oriented x3, Cooperative, No apparent distress, morbidly obese HEENT: Atraumatic, PERRLA, EOMI, Normocephalic Oral: Moist Mucosa Neck: Supple, No JVD, Negative Carotid Bruits Lungs: Clear to auscultation, Normal air movement Cardiovascular: Regular rate, Regular Rhythm, Normal S1, Normal S2, No murmurs Abdomen: Bowel Sounds Present, Soft, Non Tender, Non-Distended, obese Extremities: No edema Skin: No rashes, No breakdown Musculoskeletal: No Tenderness to Palpation of Joints or Extremities Lymphatic: No Cervical, Supraclavicular, or Inguinal Adenopathy Neurological: Cranial nerves II-XII grossly intact, Neuro grossly intact Psych/Mental Status: Normal Affect, Appropriate Plan is for transfer to [facility] for EP evaluation. of Johanny Swanson NP C's note which I have reviewed and agree with. - Physical Exam Vital Signs Temp Pulse Resp BP Pulse Ox 98.6 F 60 17 129/67 H 98 09/18/18 12:26 09/18/18 12:26 09/18/18 12:26 09/18/18 12:26 09/18/18 12:26 Oxygen Delivery Method Room Air Weight: 374 lb 9.046 oz Body Mass Index (BMI) 60.4 Finger Stick Blood Glucose 105 Intake and Output for Last 24 Hours 09/16/18 09/17/18 09/18/18 23:59 23:59 23:59 Intake Total 1909 Balance 1909 Laboratory Tests Past 24 Hrs 09/17/18 09/17/18 09/17/18 18:25 18:25 18:25 WBC 14.3 H RBC 5.29 Hgb 14.9 Hct 45.8 MCV 86.6 MCH 28.2 MCHC 32.5 RDW 14.3 RDW Differential 44.9 H Plt Count 212 MPV 11.8 Immature Gran % (Auto) 0.200 Neut % (Auto) 61.5 Lymph % (Auto) 29.5 [place] % (Auto) 7.5 Eos % (Auto) 1.2 Baso % (Auto) 0.1 Absolute Neuts (auto) 8.8 H Absolute Lymphs (auto) 4.23 Total Counted Not Reportable PT 13.0 INR 1.0 APTT 27.2 Sodium 139 Potassium 3.6 Chloride 105 Carbon Dioxide 26.0 Anion Gap 8 BUN 9 Creatinine 0.79 Estim Creat Clear Calc 93.05 Est GFR (MDRD) Af Amer 107 Est GFR (MDRD) Non-Af 88 BUN/Creatinine Ratio 11.4 Glucose 108 H Hemoglobin A1c Calcium 8.9 Magnesium 1.8 Troponin I < 0.015 Triglycerides Cholesterol LDL Cholesterol VLDL Cholesterol HDL Cholesterol TSH 1.85 Serum , Qual Urine Color Urine Clarity Urine pH Ur Specific [place] Urine Protein Urine Glucose (UA) Urine Ketones Urine Occult Blood Urine Nitrite Urine Bilirubin Urine Urobilinogen Ur Leukocyte Esterase Urine RBC Urine WBC Ur Squamous Epith Cells Urine Bacteria Urine Mucus 09/17/18 09/17/18 09/17/18 18:25 18:25 21:53 WBC RBC Hgb Hct MCV MCH MCHC RDW RDW Differential Plt Count MPV Immature Gran % (Auto) Neut % (Auto) Lymph % (Auto) [place] % (Auto) Eos % (Auto) Baso % (Auto) Absolute Neuts (auto) Absolute Lymphs (auto) Total Counted PT INR APTT Sodium Potassium Chloride Carbon Dioxide Anion Gap BUN Creatinine Estim Creat Clear Calc Est GFR (MDRD) Af Amer Est GFR (MDRD) Non-Af BUN/Creatinine Ratio Glucose Hemoglobin A1c 5.7 Calcium Magnesium Troponin I < 0.015 Triglycerides Cholesterol LDL Cholesterol VLDL Cholesterol HDL Cholesterol TSH Serum , Qual NEGATIVE Urine Color Urine Clarity Urine pH Ur Specific [place] Urine Protein Urine Glucose (UA) Urine Ketones Urine Occult Blood Urine Nitrite Urine Bilirubin Urine Urobilinogen Ur Leukocyte Esterase Urine RBC Urine WBC Ur Squamous Epith Cells Urine Bacteria Urine Mucus 09/18/18 09/18/18 09/18/18 00:20 00:28 05:00 WBC 9.9 RBC 4.74 Hgb 13.5 Hct 40.8 MCV 86.1 MCH 28.5 MCHC 33.1 RDW 14.4 RDW Differential 44.5 H Plt Count 223 MPV 11.3 Immature Gran % (Auto) 0.200 Neut % (Auto) 52.3 Lymph % (Auto) 35.7 [place] % (Auto) 9.9 Eos % (Auto) 1.7 Baso % (Auto) 0.2 Absolute Neuts (auto) 5.2 Absolute Lymphs (auto) 3.54 Total Counted Not Reportable PT INR APTT Sodium Potassium Chloride Carbon Dioxide Anion Gap BUN Creatinine Estim Creat Clear Calc Est GFR (MDRD) Af Amer Est GFR (MDRD) Non-Af BUN/Creatinine Ratio Glucose Hemoglobin A1c Calcium Magnesium Troponin I < 0.015 Triglycerides Cholesterol LDL Cholesterol VLDL Cholesterol HDL Cholesterol TSH Serum , Qual Urine Color Yellow Urine Clarity Clear Urine pH 7.0 Ur Specific [place] 1.010 Urine Protein Negative Urine Glucose (UA) Normal Urine Ketones Negative Urine Occult Blood Negative Urine Nitrite Negative Urine Bilirubin Negative Urine Urobilinogen Normal Ur Leukocyte Esterase Negative Urine RBC 0 SEEN Urine WBC 0 SEEN Ur Squamous Epith Cells 0-5 SEEN Urine Bacteria RARE Urine Mucus 0 SEEN 09/18/18 09/18/18 05:00 05:00 WBC RBC Hgb Hct MCV MCH MCHC RDW RDW Differential Plt Count MPV Immature Gran % (Auto) Neut % (Auto) Lymph % (Auto) [place] % (Auto) Eos % (Auto) Baso % (Auto) Absolute Neuts (auto) Absolute Lymphs (auto) Total Counted PT 13.3 INR 1.0 APTT 27.2 Sodium 143 Potassium 4.1 Chloride 110 H Carbon Dioxide 27.0 Anion Gap 6 BUN 9 Creatinine 0.73 Estim Creat Clear Calc 100.69 Est GFR (MDRD) Af Amer 116 Est GFR (MDRD) Non-Af 96 BUN/Creatinine Ratio 12.3 Glucose 95 Hemoglobin A1c Calcium 8.5 Magnesium Troponin I Triglycerides 65 Cholesterol 157 LDL Cholesterol 98 VLDL Cholesterol 13 HDL Cholesterol 46 TSH Serum , Qual Urine Color Urine Clarity Urine pH Ur Specific [place] Urine Protein Urine Glucose (UA) Urine Ketones Urine Occult Blood Urine Nitrite Urine Bilirubin Urine Urobilinogen Ur Leukocyte Esterase Urine RBC Urine WBC Ur Squamous Epith Cells Urine Bacteria Urine Mucus Code Visit Inpatient E&M: 10235 Disch Hosp
[2018-09-18] MEDS: Pantoprazole Sodium 20 MG Tablet PO (10:49)
--- NOTE | 2018-09-18 11:48 | NURSING ---
report called to Ld Turner rn at [facility] [phone]
[2018-09-18] MEDS: 0.9% Normal Saline 1,000 ML 100 ML IV (12:35)
--- NOTE | 2018-09-18 17:05 | NURSING ---
1640 squad here to take patient she has her phone and blanket called [facility] and gave update
--- OUTSIDE RECORDS SUMMARY | 2018-11-20 05:22 | XMS RPT_ITS ---
:1985 Author Organization OHIP Support Name Relationship Address Phone [employer] Unavailable [id number] + [place] [address] DELATORRE-BRENDAN, EMILY Unavailable [address] + [id number] [place] [address] MAURO COWART Unavailable [address] + [address] [place] [address] [employer] Unavailable [address] + [place] [address] DELATORRE-BRENDAN, EMILY Unavailable [address] + [id number] [place] [address] MAURO COWART Unavailable [address] + [address] [place] [address] [employer] Unavailable [address] + [place] [address] DELATORRE-BRENDAN, EMILY Unavailable [address] + [id number] [place] [address] MAURO COWART Unavailable [address] + [address] [place] [address] [employer] Unavailable [address] + [place] [address] DELATORRE-BRENDAN, EMILY Unavailable [address] + [id number] [place] [address] MAURO COWART Unavailable [address] + [address] [place] [address] ITS[facility] Unavailable [address] + [place] [address] DELATORRE-BRENDAN, EMILY Unavailable [address] + [id number] [place] [address] SOFYA MAURO Unavailable [address] [place] [address] DELATORRE-BRENDAN, EMILY Unavailable [address] + [id number] [place] [address] SOFYA MAURO Unavailable [address] [place] [address] UE Unavailable Unavailable Unavailable DELATORRE-BRENDAN, EMILY Unavailable [address] + [id number] [place] [address] SOFYA MAURO Unavailable [address] [place] [address] UE Unavailable Unavailable Unavailable DELATORRE-BRENDAN, EMILY Unavailable [address] + [id number] [place] [address] SOFYA MAURO Unavailable [address] [place] [address] UE Unavailable Unavailable Unavailable DELATORRE-BRENDAN, EMILY Unavailable [address] + [id number] [place] [address] SOFYA MAURO Unavailable [address] [place] [address] UE Unavailable Unavailable Unavailable DELATORRE-BRENDAN, EMILY Unavailable [address] + [id number] [place] [address] SOFYA MAURO Unavailable [address] [place] [address] UE Unavailable Unavailable Unavailable DELATORRE-BRENDAN, EMILY Unavailable [address] + [id number] [place] [address] SOFAY MAURO Unavailable [address] [place] [address] UE Unavailable Unavailable Unavailable Care Team Providers Name Role Phone [facility] Primary Care Unavailable Garry Conn Attending Unavailable [facility] Primary Care Unavailable Aly Giles Attending Unavailable [facility] Primary Care Unavailable Anam Garcia Attending Unavailable AMAN RAMESH Attending Unavailable [facility] Primary Care Unavailable AMAN RAMESH Referring Unavailable ZARRABI, JOSSELYN Primary Care Unavailable Derrick Neff Attending Unavailable [place], Vargas Primary Care Unavailable White, Lorena Admitting Unavailable White, Lorena Referring Unavailable Violetta, Rafael Consulting Unavailable Koram, Gloria Alejandra Attending Unavailable White, Lorena Admitting Unavailable White, Lorena Attending Unavailable White, Lorena Referring Unavailable [facility] [place] Primary Care Unavailable White, Lorena Consulting Unavailable White, Lorena Admitting Unavailable Violetta, Rafael Attending Unavailable White, Lorena Referring [facility] Unavailable Violetta, Rafael Consulting Unavailable Koram, Gloria Alejandra Consulting Unavailable White, Lorena Admitting Unavailable CHARISSE Lino Attending Unavailable White, Lorena Referring Unavailable [facility] Unavailable Violetta, Erving Consulting Unavailable Koram, Gloria Alejandra Consulting Unavailable AMAN RAMESH Attending Unavailable AMAN RAMESH Referring Unavailable [facility] Primary Care Unavailable Bonita Naqvi Attending Unavailable [place] Bonita Referring Unavailable [facility] Primary Care Unavailable Gee Daryl A Admitting Unavailable [place] Daryl A Attending Unavailable [facility] Primary Care Unavailable [place] Daryl A Attending Unavailable [facility] Primary Care Unavailable David Dillard Attending Unavailable [facility] Primary Care Unavailable Wilda Santillan Admitting Unavailable Wilda Santillan Attending Unavailable [facility] Primary Care Unavailable GUANAKO, VARGAS B Admitting Unavailable GUANAKO, VARGAS B Attending Unavailable [facility] Primary Care Unavailable EDITH BLACK Attending Unavailable EDITH BLACK Referring Unavailable JOSHUA CAMACHO Attending Unavailable JOSHUA CAMACHO Referring Unavailable JOSHUA CAMACHO Referring Unavailable JOSHUA CAMACHO Referring Unavailable BELENOT, OMKAR N Admitting Unavailable HELIO LASSITER Attending Unavailable EDITH MURRAY Referring Unavailable EDITH MURRAY Admitting Unavailable SCHWEDITH MEJIA Attending Unavailable JOSHUA CAMACHO Referring Unavailable [facility] Primary Care Unavailable SCHWEDITH MEJIA Admitting Unavailable SCHWEDITH MEJIA Attending Unavailable JOSHUA CAMACHO Referring Unavailable PROBLEMS PROBLEMS DATE TYPE CONDITION / CODE ATTENDING STATUS SOURCE 09/20/2018 Admitting Unknown / SCHWEIKERT, Active [place] [facility] diagnosis UNK(Unknown) [facility] Repository 09/20/2018 Active Morbid (severe) SCHWEIKERT, Active [place] obesity due to [facility] Other excess calories / [place] E66.01(ICD-10) Repository 09/20/2018 Active Ventricular SCHWEIKERT, Active [place] tachycardia / [facility] Other I47.2(ICD-10) [place] Repository 09/17/2018 Active Palpitations / NA Active [place] R00.2(ICD-10) [facility] [place] Repository 07/09/2018 Unknown M06.4 - Inflammatory Vellanki, Active [place] polyarthropathy / [place] [facility] M06.4(ICD-10) Hospital Repository 03/30/2018 Active Fatty (change of) NA Active [place] liver, not elsewhere 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 [place] Repository PROCEDURES PROCEDURES No Procedure Records FoundRESULTS RESULTS PROGRESS Observed: 09/23/2018 Status: COMPLETED Source: [facility] 8:19 AM [facility] REPOSITORY HNO ID: [id number] Author: Mitch Alvarado Service: Cardiovascular Medicine Author Type: Physician Type: Progress Notes Filed: 09/23/2018 8:19 AM Note Text: [facility]ARDI[facility]ASCULAR [facility]ICINE PROGRESS NOTE (Template ID [id number]) Emma Cowart [id number] PRIMARY SERVICE: i Electrophysiology HOSPITAL DAY: # 3 ASSESSMENT AND PLAN : 33 year old F with Hx of Morbid obesity, BRISEYDA (not on CPAP), depression, hypothyroidism who presents with sustained MMVT. Transferred to [facility] for further management +/- VT ablation. Active Hospital Problems Diagnosis - Ventricular tachycardia (HCC) - normal ECHO, MRI was negatifve for scar, frbrosis, DGE- - will need EPS and if inducible VTA. Potential for epicardial access. - she is now on lidocaine at 1mg/min for suppression, we will continue the same for now. 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 INTERVAL HISTORY - feels well. Not in distress. - Denies any complaints. - pain is well controlled. - no acute issues. - seen at bedside, examined and discussed care plan. All questions answered. PHYSICAL EXAM BP 120/73 Pulse 60 Temp 36.4 ?C (97.5 ?F) (Oral) Resp 17 Ht 167.6 cm (5' 6) Wt (!) 168.8 kg (372 lb 1.6 oz) SpO2 96% BMI 60.06 kg/m? Intake/Output Summary (Last 24 hours) at 09/23/18 0819 Last data filed at 09/23/18 0300 Gross per 24 hour Intake 993.5 ml Output 0 ml Net 993.5 ml General Appearance: Well developed, Well nourished and Obese HEENT: PERRLA and EOM's intact Lungs: Clear, air entry bilaterally equal Heart: Regular rate AND rhythm, No heaves and S1, S2 normal Abdomen: Soft, Round, Non-tender and Bowel sounds present Skin: Warm and No rash on chest, arms or legs Musculoskeletal: No deformities Neurologic/Psychiatric: Oriented to time, place AND person and No gross focal neurologic deficits MEDICATIONS Current hospital medications: traMADol 25 mg tab(s) (ULTRAM) 25 mg ORAL q 6 H PRN acetaminophen 325-650 mg tab(s) (TYLENOL) 325-650 mg ORAL q 4 H PRN LORazepam 0.5 mg tab(s) (ATIVAN) 0.5 mg ORAL TID PRN NaCl 0.9% 10 mL 10 mL INTRAVENOUS q 12 H NaCl 0.9% 20 mL 20 mL INTRAVENOUS PRN docusate sodium 100 mg cap(s) (COLACE) 100 mg ORAL BID PRN pantoprazole DR 40 mg tab(s) (PROTONIX) 40 mg ORAL DAILY (6 AM) polyethylene glycol 3350 17 g packet (MIRALAX, GLYCOLAX) 17 g ORAL DAILY PRN heparin 5,000 Units injection 5,000 Units SUBCUTANEOUS q 12 H levothyroxine 100 mcg tab(s) (SYNTHROID) 100 mcg ORAL DAILY (6 AM) lidocaine iv infusion 2 g in D5W 250 mL 1 mg/min INTRAVENOUS CONTINUOUS lidocaine 5 % 1 Patch (LIDODERM) 1 Patch TRANSDERMAL DAILY lidocaine patch - REMOVE OTHER AT BEDTIME lidocaine - VERIFY PATCH OTHER q 8 H DATA Recent Labs 09/23/1845009/22/18 0616 09/21/18 0329 WBC 8.56 8.67 9.16 HB 13.5 14.3 13.1 HCT 41.3 42.9 39.6 PLT 186 214 188 Recent Labs 09/23/1845009/22/18 0616 09/21/18 0329 NA 138 139 140 K 3.9 4.2 3.9 CO2 23 25 21* BUN 11 10 11 CREAT 0.64 0.69 0.65 GLUC 90 94 98 MG 1.9 2.0 1.7 IMAGING AND OTHER TESTING : - none today EKG and Telemonitor : - normal EKG, normal sinus rhythm Case to be discussed with staff Mitch Alvarado MD EP Hospitalist Department of Cardiovascular Medicine Section of Electrophysiology Pager : [phone] September 23, 2018 8:19 AM For communication after 5 pm on weekdays and after 12 pm on weekends, please page the following: - Clinical Cardiology patients on all floors: page [phone] - Other Cardiology patients on J5 and J6: page [phone] - Other Cardiology patients on J7 and J8: page [phone] CBC Collected: 09/23/2018 Status: F Source: [facility] 4:51 AM [facility] REPOSITORY TYPE CODE TESTS RESULT OUT OF REFERENCE UNITS RANGE LAB WBC 3.70-11.00 k/uL WBC 8.56 LAB RBC 3.90-5.20 m/uL RBC 4.82 LAB HGB 11.5-15.5 g/dL Hemoglobin 13.5 LAB HCT 36.0-46.0 % Hematocrit 41.3 LAB MCV 80.0-100.0 fL MCV 85.7 LAB MCH 26.0-34.0 pG MCH 28.0 LAB MCHC 30.5-36.0 g/dL MCHC 32.7 LAB RDWCV 11.5-15.0 % RDW-CV 13.9 LAB PLTCT 150-400 k/uL Platelet Count 186 LAB MPV 9.0-12.7 fL MPV 11.6 LAB ABSNUC <0.01 k/uL Absolute nRBC <0.01 Performed By: #### CBC, BMP, MG1 #### [facility] [address] [place], [place] [address] BASIC METABOLIC PANL Collected: 09/23/2018 Status: F Source: [facility] 4:[address] [facility] REPOSITORY TYPE CODE TESTS RESULT OUT OF REFERENCE UNITS RANGE LAB GLU 74-99 mg/dL Glucose 90 Result Comment: The [place] Diabetes [employer] (ADA) provides guidance for cutoff values for fasting glucose and random glucose. The ADA defines fasting as no caloric intake for at least 8 hours. Fas ting plasma glucose results between 100 to 125 mg/dL indicate increased risk for diabetes (prediabetes). Fasting plasma glucose results greater than or equal to 126 mg/dL meet the criteria for diagnosis of diabetes. In the absence of unequivocal hyperglycemia, results should be confirmed by repeat testing. In a patient with classic symptoms of hyperglycemia or hyperglycemic crisis, random plasma glucose results greater than or equal to 200 mg/dL meet the criteria for diagnosis of diabetes. Reference: Standards of Medical Care in Diabetes 2016, [place] [employer]. Diabetes Care. 2016.39(Suppl 1). LAB BUN 7-21 mg/dL BUN 11 LAB CRET 0.58-0.96 mg/dL Creatinine 0.64 LAB NA 136-144 mmol/L Sodium 138 LAB K 3.7-5.1 mmol/L Potassium 3.9 LAB CL 97-105 mmol/L Chloride 102 LAB CO2 22-30 mmol/L CO2 23 LAB AGAP 9-18 mmol/L Anion Gap 13 LAB CA 8.5-10.2 mg/dL Calcium, Total 8.9 LAB GFRAA eGFR- Amer. >60 LAB GFRNAA . eGFR-All Other Races >60 Result Comment: eGFR (Estimated GFR) Units of measure: mL/min/1.73 meters squared eGFR is derived from the reexpressed MDRD Study equation using the following parameters: serum creatinine, age, gender and race. The creatinine assay has been calibrated to be traceable to IDMS. An eGFR <60 mL/min/1.73m2 for >3 months is consistent with chronic kidney disease. Refer to KDOQI guidelines for clinical interpretation. In patients with unstable renal function, e.g. those with acute kidney injury, the eGFR may not accurately reflect actual GFR. Performed By: #### CBC, BMP, MG1 #### [facility] [address] [place] [address] MAGNESIUM Collected: 09/23/2018 Status: F Source: [facility] 4:51 AM [facility] REPOSITORY TYPE CODE TESTS RESULT OUT OF REFERENCE UNITS RANGE LAB MG 1.7-2.3 mg/dL Magnesium 1.9 Performed By: #### CBC, BMP, MG1 #### [facility] [address] [place] [address] PROGRESS Observed: 09/22/2018 Status: COMPLETED Source: [facility] 7:42 AM [facility] REPOSITORY HNO ID: [id number] Author: Mitch Alvarado Service: Cardiovascular Medicine Author Type: Physician Type: Progress Notes Filed: 09/22/2018 7:43 AM Note Text: [facility]ARD[facility]ICINE PROGRESS NOTE (Template ID [id number]) Emma Cowart [id number] PRIMARY SERVICE: i Electrophysiology HOSPITAL DAY: # 2 ASSESSMENT AND PLAN : 33 year old F with Hx of Morbid obesity, BRISEYDA (not on CPAP), depression, hypothyroidism who presents with sustained MMVT. Transferred to [facility] for further management +/- VT ablation. Active Hospital Problems Diagnosis - Ventricular tachycardia (HCC) - normal ECHO, MRI was negatifve for scar, frbrosis, DGE- - will need EPS and if inducible VTA. Potential for epicardial access. - she is now on lidocaine at 1mg/min for suppression. This can likely be stopped. 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 INTERVAL HISTORY - feels well. Not in distress. - Denies any complaints. - pain is well controlled. - no acute issues. - seen at bedside, examined and discussed care plan. All questions answered. PHYSICAL EXAM BP 120/74 Pulse (!) 55 Temp 37 ?C (98.6 ?F) (Oral) Resp 18 Ht 167.6 cm (5' 6) Wt (!) 168.8 kg (372 lb 3.2 oz) SpO2 97% BMI 60.07 kg/m? Intake/Output Summary (Last 24 hours) at 09/22/18 0743 Last data filed at 09/21/18 1800 Gross per 24 hour Intake 327.5 ml Output 0 ml Net 327.5 ml General Appearance: Well developed, Well nourished and Obese HEENT: PERRLA and EOM's intact Lungs: Clear, air entry bilaterally equal Heart: Regular rate AND rhythm, No heaves and S1, S2 normal Abdomen: Soft, Round, Non-tender and Bowel sounds present Skin: Warm and No rash on chest, arms or legs Musculoskeletal: No deformities Neurologic/Psychiatric: Oriented to time, place AND person and No gross focal neurologic deficits MEDICATIONS Current hospital medications: LORazepam 0.5 mg tab(s) (ATIVAN) 0.5 mg ORAL TID PRN NaCl 0.9% 10 mL 10 mL INTRAVENOUS q 12 H NaCl 0.9% 20 mL 20 mL INTRAVENOUS PRN acetaminophen 325-650 mg tab(s) (TYLENOL) 325-650 mg ORAL q 4 H PRN docusate sodium 100 mg cap(s) (COLACE) 100 mg ORAL BID PRN pantoprazole DR 40 mg tab(s) (PROTONIX) 40 mg ORAL DAILY (6 AM) polyethylene glycol 3350 17 g packet (MIRALAX, GLYCOLAX) 17 g ORAL DAILY PRN heparin 5,000 Units injection 5,000 Units SUBCUTANEOUS q 12 H levothyroxine 100 mcg tab(s) (SYNTHROID) 100 mcg ORAL DAILY (6 AM) lidocaine iv infusion 2 g in D5W 250 mL 1 mg/min INTRAVENOUS CONTINUOUS lidocaine 5 % 1 Patch (LIDODERM) 1 Patch TRANSDERMAL DAILY lidocaine patch - REMOVE OTHER AT BEDTIME lidocaine - VERIFY PATCH OTHER q 8 H DATA Recent Labs 09/21/18 0329 09/20/18 1852 WBC 9.16 13.59* HB 13.1 14.4 HCT 39.6 43.7 PLT 188 104* Recent Labs 09/22/18 0616 09/21/18 0329 09/20/18 1852 NA 139 140 140 K 4.2 3.9 4.0 CO2 25 21* 24 BUN 10 11 9 CREAT 0.69 0.65 0.69 GLUC 94 98 113* MG 2.0 1.7 1.8 IMAGING AND OTHER TESTING : - none today EKG and Telemonitor : - normal EKG, normal sinus rhythm Case to be discussed with staff Mitch Alvarado MD EP Hospitalist Department of Cardiovascular Medicine Section of Electrophysiology Pager : [phone] September 22, 2018 7:43 AM For communication after 5 pm on weekdays and after 12 pm on weekends, please page the following: - Clinical Cardiology patients on all floors: page [phone] - Other Cardiology patients on J5 and J6: page [phone] - Other Cardiology patients on J7 and J8: page [phone] BASIC METABOLIC PANL Collected: 09/22/2018 Status: F Source: [facility] 6:16 AM [facility] REPOSITORY TYPE CODE TESTS RESULT OUT OF REFERENCE UNITS RANGE LAB GLU 74-99 mg/dL Glucose 94 Result Comment: The [place] Diabetes [employer] (ADA) provides guidance for cutoff values for fasting glucose and random glucose. The ADA defines fasting as no caloric intake for at least 8 hours. Fas ting plasma glucose results between 100 to 125 mg/dL indicate increased risk for diabetes (prediabetes). Fasting plasma glucose results greater than or equal to 126 mg/dL meet the criteria for diagnosis of diabetes. In the absence of unequivocal hyperglycemia, results should be confirmed by repeat testing. In a patient with classic symptoms of hyperglycemia or hyperglycemic crisis, random plasma glucose results greater than or equal to 200 mg/dL meet the criteria for diagnosis of diabetes. Reference: Standards of Medical Care in Diabetes 2016, [place] [employer]. Diabetes Care. 2016.39(Suppl 1). LAB BUN 7-21 mg/dL BUN 10 LAB CRET 0.58-0.96 mg/dL Creatinine 0.69 LAB NA 136-144 mmol/L Sodium 139 LAB K 3.7-5.1 mmol/L Potassium 4.2 LAB CL 97-105 mmol/L Chloride 103 LAB CO2 22-30 mmol/L CO2 25 LAB AGAP 9-18 mmol/L Anion Gap 11 LAB CA 8.5-10.2 mg/dL Calcium, Total 9.2 LAB GFRAA eGFR- Amer. >60 LAB GFRNAA . eGFR-All Other Races >60 Result Comment: eGFR (Estimated GFR) Units of measure: mL/min/1.73 meters squared eGFR is derived from the reexpressed MDRD Study equation using the following parameters: serum creatinine, age, gender and race. The creatinine assay has been calibrated to be traceable to IDMS. An eGFR <60 mL/min/1.73m2 for >3 months is consistent with chronic kidney disease. Refer to KDOQI guidelines for clinical interpretation. In patients with unstable renal function, e.g. those with acute kidney injury, the eGFR may not accurately reflect actual GFR. Performed By: #### BMP, MG1, CBC #### [facility] [address] [place] [address] MAGNESIUM Collected: 09/22/2018 Status: F Source: [facility] 6:16 AM [facility] REPOSITORY TYPE CODE TESTS RESULT OUT OF REFERENCE UNITS RANGE LAB MG 1.7-2.3 mg/dL Magnesium 2.0 Performed By: #### ALPESH, MG1, CBC #### [facility] [address] [place], [place] [address] CBC Collected: 09/22/2018 Status: F Source: [facility] 6:16 AM [facility] REPOSITORY TYPE CODE TESTS RESULT OUT OF REFERENCE UNITS RANGE LAB WBC 3.70-11.00 k/uL WBC 8.67 LAB RBC 3.90-5.20 m/uL RBC 4.96 LAB HGB 11.5-15.5 g/dL Hemoglobin 14.3 LAB HCT 36.0-46.0 % Hematocrit 42.9 LAB MCV 80.0-100.0 fL MCV 86.5 LAB MCH 26.0-34.0 pG MCH 28.8 LAB MCHC 30.5-36.0 g/dL MCHC 33.3 LAB RDWCV 11.5-15.0 % RDW-CV 14.1 LAB PLTCT 150-400 k/uL Platelet Count 214 LAB MPV 9.0-12.7 fL MPV 11.4 LAB ABSNUC <0.01 k/uL Absolute nRBC <0.01 Performed By: #### ALPESH, MG1, CBC #### [facility] [address] [place], [place] [address] NURSING PROG Observed: 09/21/2018 Status: COMPLETED Source: [facility] 5:41 PM [facility] REPOSITORY HNO ID: [id number] Author: Katya (Rn) ANDRE Arizmendi Service: (none) Author Type: Registered Nurse Type: Nursing Progress Note Filed: 09/21/2018 5:42 PM Note Text: Nursing Progress Note Patient Name: Emma Cowart Patient Location: [place] [address]/[id number] Daily Note:k 3.9,mag 1.7,service paged,will continue to monitor This note was completed by: Katya Arizmendi RN PROCEDURE Observed: 09/21/2018 Status: COMPLETED Source: [facility] 4:26 PM [facility] REPOSITORY O ID: [id number] Author: Aaron Naylor LPN Service: PICC Team Author Type: LICENSED NURSE Type: Procedures Filed: 09/21/2018 4:53 PM Note Text: MIDLINE INSERTION PROCEDURE NOTE - PICC TEAM NURSES DATE OF PROCEDURE: 09/21/2018 TIME OF PROCEDURE: 1644 ORDERING PHYSICIAN: Mitch Alvarado Indications for line placement: Multiple IV attempts and restarts Condition of line placement: Sterile Primary Proceduralist: Fredy Jasso RN Cp Bleacher Operator: Rupesh Naylor LPN Pre-procedure Review: ALLERGIES Allergen Reactions - Hydrocodone-Acetami* Hives, GI Upset - Morphine Other: See Comments Abdominal pain - Penicillins Hives Known history of Venous Thrombosis: No Known history of Permanent Pacemaker or Automated Implanted Cardiac Device: No Previous breast surgery of lymph node dissection: No History of renal disease with Arterio-Venous fistula in place or planned?: No Ultrasound assessment complete: Yes Procedure Narrative Safe Practice: Hand hygiene per hospital policy: Yes Skin preparation used: Chloraprep (CHG + alcohol), allowed to dry Barriers used by Proceduralist and all assisting personnel: Yes UNIVERSAL PROTOCOL / SAFETY CHECKLIST Procedure to be performed: Midline Sign in Communication: Completed Time Out: Team Confirms the Correct Patient, Correct Procedure, Correct Site and Site Marking, Correct Position (if applicable), Prep and Dry Time (if applicable). Time: 1640 Affirmation of Time Out: YES Sign Out Discussion: Completed Katya POWELL notified Midline placed and ok to use Aaron Naylor LPN Midline Catheter Placement: Brand: BARD Lot: [id number] Number of lumens: 1 Type of Midline: Power Injectable Midline Lumen size: 4Fr Placement Technique: Lidocaine: Yes. Strength: 1% Volume 1 Modified Seldinger Technique use to place line via the: Right Cephalic Ultrasound Guidance: Yes Number of attempts at insertion: 1 Ensured control of guidewire during all aspects of the procedure: Yes Accounted for entire guidewire upon removal: Yes Internal length: 20 cm External length: 0 cm Trim length:20 cm Mid-Arm circumference above insertion site: 49 centimeters Post insertion pain level related to procedure: 0 Action taken to address pain: None needed Verified placement: Positive blood return Line was flushed with 20 cc normal saline Line secured with: Securement device Sterile dressing applied and dated: Yes Sterile caps on all ports prior to leaving procedure area: Yes Specimens: None Complications: None Patient education materials: Given to patient Questions or problems: Page [phone] SIGNATURE: Aaron Naylor LPN PATIENT NAME: Emma Cowart DATE: September 21, 2018 TIME: 4:27 PM PAGER: [phone] PT ED Observed: 09/21/2018 Status: COMPLETED Source: [facility] 4:25 PM [facility] [place] REPOSITORY HNO ID: [id number] Author: Aaron Naylor LPN Service: PICC Team Author Type: LICENSED NURSE Type: Patient Education Filed: 09/21/2018 4:44 PM Note Text: PATIENT EDUCATION TOPIC: PROCEDURE / SURGERY: Procedure/Surgery: Midline PATIENT NAME: [facility] Cow[facility] READINESS TO LEARN COGNITIVE ABILITY: Alert and oriented MOTIVATION TO LEARN: Interested FAMILY SUPPORT: High - Very involved in pt care INSTRUCTION PROVIDED TO: Patient PATIENT LEARNS BEST BY: Individual Instruction Written Instruction - Hand-outs Verbal Instruction FACTORS AFFECTING LEARNING: None PHYSICAL LIMITATIONS AFFECTING LEARNING: None LEARNING RESPONSE DIAGNOSIS: ADULT: Midline PATIENT/FAMILY RESPONSE: Verbalizes understanding of: POST-PROCEDURE INSTRUCTIONS-Correct actions to take to reduce post procedure complications PRE-PROCEDURE INSTRUCTIONS-Correct action to take to follow pre-procedure instructions METHOD OF INSTRUCTION: Individual instruction Written instruction - handouts Verbal instruction FOLLOW-UP PLAN: Complete - No need for follow-up INSTRUCTIONAL AIDS USED: NA SUPPLEMENTAL MATERIAL PROVIDED TO PATIENT: Title of booklet / pamphlet: midline REFERRAL (RECOMMENDATION): None Electronically Signed By: Aaron Naylor LPN CASE MGT INIT Observed: 09/21/2018 Status: COMPLETED Source: [facility] 1:48 PM [facility] [place] REPOSITORY HNO ID: [id number] Author: Jennifer Patel) ANDRE Devlin Service: Case Management Author Type: Registered Nurse Type: Care Mgt Initial Assessment Filed: 09/21/2018 2:22 PM Note Text: CARE MANAGEMENT: ASSESSMENT AND DISCHARGE PLAN SERVICE DATE: 09/21/2018 SERVICE TIME: 1:48 PM PRIMARY CARE PHYSICIAN: JUNE Deshpande patient confirmed ADMISSION STATUS: Inpatient Needs Prior to Discharge: None MEDICAL: Patient/Orthopedic Nurse Stated Goals: To have reduction in symptoms Health Insurance: MMO SU[employer] PLUS None Health Issues Impacting Discharge Plan: Hx of Morbid obesity, BRISEYDA (not on CPAP), depression, hypothyroidism ? Last Admission Date: Previous admit date: 09/18/2018 Is this Within the Past 30 days? No Advance Directive: Current Advance Directive: None Steel Grinder Attempted to Assist with AD Completion: Yes Action: (Patient educated on AD and [facility] of decision making) Health Literacy: 1. How often do you need to have someone help you when you read instructions, pamphlets, or other written material from your doctor or pharmacy? Never - 1 2. How confident are you filling out medical forms by yourself? Extremely - 1 If Patient scores > 3 on either question, the following interventions were put into place: Patient did not score > 3 FUNCTIONAL AND COGNITIVE/BEHAVIORAL PRIOR TO ADMISSION: Baseline Mental Status: Alert AND Oriented, Person, Place , Time and Situation Functional Status: Independent Does Patient Currently Receive Any Community Services or Home Care? None Equipment Prior to Admission: CPAP Has the Patient Been in a [facility]sp Facility in the Past 30 days? 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 No Caregiver Needed Patient's transition needs and plan for meeting these needs: Transition to home with self care Does the patient have an acute stroke diagnosis, or has the patient had a stroke during this admission? No Medication Adherence: I am convinced of the importance of my prescription medication: Agree completely - 0 I worry that my prescription medication will do more harm than good to me Disagree completely - 0 I feel financially burdened by my yrk-as-eyqimi expenses for my prescription medication: Disagree completely - 0 Patient is categorized as low risk < 2 Are you interested in bedside delivery of your medications? No Food Concerns: In the Last Month, Have You had Trouble Getting Food? No trouble getting food During the Last Month, Have You Worried Whether Your Food Would Run Out Before You Had Enough Money to Buy More? No Is the Patient Psychosocially Complex? No ASSESSMENT AND PLAN: Medical Needs: 2 or more chronic diseases Psychosocial Needs: None FREEDOM OF CHOICE EXPLAINED: Yes with patient 09/21/18 No skilled needs at this time POTENTIAL TRANSITION PLANS Home 33 YOF from [facility] transferred [facility] for further management of VT ablation.Per Chart . CM met with patient and family to discuss discharge needs and plan of care. Lives at home with spouse. 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 On RA, uses a CPAP at night. No other DME's. Ambulates independently in room. Spouse to transport when medically cleared SIGNATURE: Jennifer Devlin RN PATIENT NAME: Emma Cowart DATE: September 21, 2018 TIME: 1:48 PM PAGER/CONTACT #: [phone] [facility]EEK[facility] PAGER [phone] PROGRESS Observed: 09/21/2018 Status: COMPLETED Source: [facility] 11:14 AM [facility] REPOSITORY HNO ID: [id number] Author: Stephania (Rn) ANDRE Grande Service: Radiology Author Type: Registered Nurse Type: Progress Notes Filed: 09/21/2018 11:15 AM Note Text: Radiology Service Progress Note PATIENT NAME: Emma Cowart DATE OF SERVICE: September 21, 2018 TIME: 11:14 AM PATIENT IDENTITY VERIFICATION COMPLETED USING TWO (2) METHODS: Patient confirmed name verbally and ID band matches.. PATIENT GENDER DATA: Female. status: : No status: NO. PATIENT RELEVANT IMPLANT DATA REVIEWED: Yes ALLERGIES: Reviewed and unchanged MEDICATIONS REVIEWED: YES IV SITE: Inpatient - refer to LDA documentation PERIPHERAL IV ACCESS: Inpatient see LDA documentation ANXIOLYSIS/ANESTHESIA: Xanax 1 mg SL PATIENT DISCHARGED TO: Patient transferred to [id number]-. Report called to Rn on . SIGNED BY: Stephania Grande RN September 21, 2018 11:14 AM [facility] Observed: 09/21/2018 Status: COMPLETED Source: [facility] 10:25 AM [facility] REPOSITORY HNO ID: [id number] Author: Lauren Hernandez Ct Service: (none) Author Type: (none) Type: Allied Health Filed: 09/21/2018 10:25 AM Note Text: Radiology Service Progress Note PATIENT NAME: Emma Cowart DATE OF SERVICE: September 21, 2018 TIME: 10:25 AM PATIENT IDENTITY VERIFICATION COMPLETED USING TWO (2) METHODS: Patient confirmed name verbally and ID Band . PATIENT GENDER DATA: Female. status: : No status: NO. PATIENT RELEVANT IMPLANT DATA REVIEWED: Yes RADIOLOGY DEPARTMENT: MR; Exam(s) Completed: Cardiac: Cardiac PERIPHERAL IV DATA: Inpatient: see LDA documentation SIGNED BY: Lauren Hernandez MRI September 21, 2018 10:25 AM MRI CARD MORPH FUNC Observed: 09/21/2018 Status: F Source: [facility] WO/W IVCON 10:25 AM [facility] [place] REPOSITORY * * *Final Report* * * DATE OF EXAM: Sep 21 2018 10:25AM JQ[facility] [id number] - MRI CARD MORPH FUNC WO/W IVCON / PROCEDURE REASON: Ventricular arrhythmia * * * * Physician Interpretation * * * * Cardiovascular MRI: 09/21/2018 10:25 AM Comparison: None Clinical History: 33 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 Indication: This study is performed to assess for myocardial viability and damage, as well as to quantitate left ventricular and valvular function. Technique: Phillip Ingenia 3.0 Ivelisse MRI scanner. * Turbo spin echo and gradient echo imaging for anatomic definition. * Dynamic cine imaging (SSFP) for cardiac chamber, wall-motion, and valvular analysis. * T2-STIR edema-weighted imaging. * Flow quantification sequences for hemodynamics. * Delayed gadolinium-enhancement analysis after injection of gadolinium-chelate (50 cc of Dotarem). Potential study limitations: None RESULT: The chest wall and mediastinum appears normal. No significant adenopathy is identified. This study was not optimized to assess the lungs however, limited imaging reveals no gross abnormalities. The pericardium is unremarkable. The pulmonary arteries are mildly dilated (main PA 3.2 cm), as can be seen in pulmonary hypertension. The thoracic aorta appears normal in course, caliber, and contour. There is no acute aortic pathology. The arch vessel branching pattern is bovine (i.e., common trunk of the innominate and left common carotid artery). All of the arch branch vessels appear widely patent in their proximal portions. CARDIAC CHAMBERS: The cardiac chambers demonstrate normal atrioventricular and ventriculoarterial concordance, as well as normal systemic and pulmonary venous return. The cardiac chamber sizes are mild biatrial enlargement. Left Ventricle: The left ventricle is mildly enlarged based on absolute size but normal in size indexed to body surface area and has normal systolic function. There are no regional wall motion abnormalities or left ventricular hypertrophy. Quantitative left ventricular functional values are as follows: EDV = 180 cc (normal 88-168 cc); EDVi = 64 cc/m2 (normal 57-92 cc/m2). ESV = 65 cc (normal 23-60 cc); ESVi = 23 cc/m2 (normal 15- 34 cc/m2). Stroke volume = 114 cc (normal 58-114 cc); SVi = 41 cc/m2 (normal 38-63 cc/m2). LVEF = 64 % (normal 55-75%). Cardiac Output = 8.1 l/min.; Cardiac Index = 2.9 l/min/m2. LV mass = 125 gm (normal 72-144 cc); LVMi = 45 gm/m2 (normal 48-77 gm/m2). There is no circumferential increased myocardial signal intensity on T2-STIR imaging to suggest myocardial edema/inflammation. Delayed-enhancement imaging reveals uniformly nulled myocardium, signifying that there has been no prior ischemic myocardial damage. There is also no definite evidence of interstitial fibrosis to suggest an infiltrative process. Of note, there is increased signal intensity within the mid inferoseptum on short axis PSIR images that is not visualized on other corresponding images consistent with an artifact. Right Ventricle: The right ventricle is mild to moderately dilated based on absolute volume but normal in size indexed to body surface area, and has normal systolic function. Quantitative right ventricular functional values are as follows: EDV = 250 cc (normal 113-213 cc); EDVi = 89 cc/m2 (normal 60-106 cc/m2). ESV = 125 cc (normal 27-86 cc); ESVi = 44 cc/m2 (normal 14-43 cc/m2). Stroke volume = 125 cc (normal 72-140 cc); SVi = 45 cc/m2 (normal 38-70 cc/m2). RVEF = 50 % (normal 45-78%). VALVES: The aortic valve is likely trileaflet. There is no visualized aortic regurgitation. Flow quantification through the ascending aorta: Forward volume: 108 cc/beat Reverse volume: 3 cc/beat Net forward volume: 105 cc/beat Aortic regurgitant fraction: 3% The mitral and tricuspid valve appear functionally normal. There is no visualized mitral regurgitation. Integrating LV volumetric and aortic flow quantification data reveals: Quantitative mitral regurgitant volume: 6 cc/beat Quantitative mitral regurgitant fraction: 5% Flow quantification sequences through the SVC and right upper lobe pulmonary vein reveal normal flow patterns consistent with normal right and left atrial pressures. Limited imaging through the upper abdomen reveals no abnormalities of the visualized organs. IMPRESSION: 1. The left ventricle is mildly enlarged in size based on absolute volume but normal in size indexed to body surface area (LVEDV 180 cc; LVEDVi 64 cc/m2) and has normal systolic function (LVEF 64%). There are no regional wall motion abnormalities or left ventricular hypertrophy. 2. The right ventricle is mild to moderately dilated based on absolute volume but normal in size indexed to body surface area (RVEDV 250 cc; 89 cc/m2), and has normal systolic function (RVEF 50%). 3. No discrete myocardial fibrosis on delayed enhancement imaging to suggest an infiltrative process or prior myocardial/ischemic injury. 4. No significant valvular abnormalities. Form Coverer: PSCB Transcribe Date/Time: Sep 21 2018 10:44A Dictated by : CRISTOBAL YOUNG MD This examination was interpreted and the report reviewed and electronically signed by: XENIA HUNT MD on Sep 21 2018 1:07PM EST [id number] MRI CARDIAC VELOCITY Observed: 09/21/2018 Status: F Source: [facility] FLOW MAP 10:25 AM [facility] REPOSITORY * * *Final Report* * * DATE OF EXAM: Sep 21 2018 10:25AM JQ[facility] 0704 - MRI CARDIAC VELOCITY FLOW MAP / PROCEDURE REASON: Ventricular arrhythmia * * * * Physician Interpretation * * * * Cardiovascular MRI: 09/21/2018 10:25 AM Comparison: None Clinical History: 33 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 Indication: This study is performed to assess for myocardial viability and damage, as well as to quantitate left ventricular and valvular function. Technique: Phillip [employer]com 3.0 Ivelisse MRI scanner. * Turbo spin echo and gradient echo imaging for anatomic definition. * Dynamic cine imaging (SSFP) for cardiac chamber, wall-motion, and valvular analysis. * T2-STIR edema-weighted imaging. * Flow quantification sequences for hemodynamics. * Delayed gadolinium-enhancement analysis after injection of gadolinium-chelate (50 cc of Dotarem). Potential study limitations: None RESULT: The chest wall and mediastinum appears normal. No significant adenopathy is identified. This study was not optimized to assess the lungs however, limited imaging reveals no gross abnormalities. The pericardium is unremarkable. The pulmonary arteries are mildly dilated (main PA 3.2 cm), as can be seen in pulmonary hypertension. The thoracic aorta appears normal in course, caliber, and contour. There is no acute aortic pathology. The arch vessel branching pattern is bovine (i.e., common trunk of the innominate and left common carotid artery). All of the arch branch vessels appear widely patent in their proximal portions. CARDIAC CHAMBERS: The cardiac chambers demonstrate normal atrioventricular and ventriculoarterial concordance, as well as normal systemic and pulmonary venous return. The cardiac chamber sizes are mild biatrial enlargement. Left Ventricle: The left ventricle is mildly enlarged based on absolute size but normal in size indexed to body surface area and has normal systolic function. There are no regional wall motion abnormalities or left ventricular hypertrophy. Quantitative left ventricular functional values are as follows: EDV = 180 cc (normal 88-168 cc); EDVi = 64 cc/m2 (normal 57-92 cc/m2). ESV = 65 cc (normal 23-60 cc); ESVi = 23 cc/m2 (normal 15- 34 cc/m2). Stroke volume = 114 cc (normal 58-114 cc); SVi = 41 cc/m2 (normal 38-63 cc/m2). LVEF = 64 % (normal 55-75%). Cardiac Output = 8.1 l/min.; Cardiac Index = 2.9 l/min/m2. LV mass = 125 gm (normal 72-144 cc); LVMi = 45 gm/m2 (normal 48-77 gm/m2). There is no circumferential increased myocardial signal intensity on T2-STIR imaging to suggest myocardial edema/inflammation. Delayed-enhancement imaging reveals uniformly nulled myocardium, signifying that there has been no prior ischemic myocardial damage. There is also no definite evidence of interstitial fibrosis to suggest an infiltrative process. Of note, there is increased signal intensity within the mid inferoseptum on short axis PSIR images that is not visualized on other corresponding images consistent with an artifact. Right Ventricle: The right ventricle is mild to moderately dilated based on absolute volume but normal in size indexed to body surface area, and has normal systolic function. Quantitative right ventricular functional values are as follows: EDV = 250 cc (normal 113-213 cc); EDVi = 89 cc/m2 (normal 60-106 cc/m2). ESV = 125 cc (normal 27-86 cc); ESVi = 44 cc/m2 (normal 14-43 cc/m2). Stroke volume = 125 cc (normal 72-140 cc); SVi = 45 cc/m2 (normal 38-70 cc/m2). RVEF = 50 % (normal 45-78%). VALVES: The aortic valve is likely trileaflet. There is no visualized aortic regurgitation. Flow quantification through the ascending aorta: Forward volume: 108 cc/beat Reverse volume: 3 cc/beat Net forward volume: 105 cc/beat Aortic regurgitant fraction: 3% The mitral and tricuspid valve appear functionally normal. There is no visualized mitral regurgitation. Integrating LV volumetric and aortic flow quantification data reveals: Quantitative mitral regurgitant volume: 6 cc/beat Quantitative mitral regurgitant fraction: 5% Flow quantification sequences through the SVC and right upper lobe pulmonary vein reveal normal flow patterns consistent with normal right and left atrial pressures. Limited imaging through the upper abdomen reveals no abnormalities of the visualized organs. IMPRESSION: 1. The left ventricle is mildly enlarged in size based on absolute volume but normal in size indexed to body surface area (LVEDV 180 cc; LVEDVi 64 cc/m2) and has normal systolic function (LVEF 64%). There are no regional wall motion abnormalities or left ventricular hypertrophy. 2. The right ventricle is mild to moderately dilated based on absolute volume but normal in size indexed to body surface area (RVEDV 250 cc; 89 cc/m2), and has normal systolic function (RVEF 50%). 3. No discrete myocardial fibrosis on delayed enhancement imaging to suggest an infiltrative process or prior myocardial/ischemic injury. 4. No significant valvular abnormalities. Form Coverer: YUVAL Transcribe Date/Time: Sep 21 2018 10:44A Dictated by : CRISTOBAL YOUNG MD This examination was interpreted and the report reviewed and electronically signed by: XENIA HUNT MD on Sep 21 2018 1:07PM EST [id number] ALLIED HEALTH Observed: 09/21/2018 Status: COMPLETED Source: [facility] 9:51 AM [facility] REPOSITORY HNO ID: [id number] Author: Lauren Estrada Service: (none) Author Type: (none) Type: Allied Health Filed: 09/21/2018 9:51 AM Note Text: Radiology Service Progress Note PATIENT NAME: Emma Cowart DATE OF SERVICE: September 21, 2018 TIME: 9:51 AM PATIENT IDENTITY VERIFICATION COMPLETED USING TWO (2) METHODS: Patient confirmed name verbally and ID band matches. and Patient confirmed name verbally. PATIENT GENDER DATA: Female. status: : No status: NO. PATIENT RELEVANT IMPLANT DATA REVIEWED: Yes RADIOLOGY DEPARTMENT: MR; Exam(s) Completed: Cardiac: Cardiac PERIPHERAL IV DATA: Inpatient: see LDA documentation SIGNED BY: aLuren Estrada September 21, 2018 9:51 AM PROGRESS Observed: 09/21/2018 Status: COMPLETED Source: [facility] 8:50 AM [facility] REPOSITORY HNO ID: [id number] Author: Ariana JamesRn) ANDRE Freeman Service: Radiology Author Type: Registered Nurse Type: Progress Notes Filed: 09/21/2018 8:51 AM Note Text: Radiology Service Progress Note PATIENT NAME: Emma Cowart DATE OF SERVICE: September 21, 2018 TIME: 8:50 AM PATIENT WEIGHT: 372 LBS PATIENT IDENTITY VERIFICATION COMPLETED USING TWO (2) METHODS: Patient confirmed name verbally and ID band matches.. PATIENT GENDER DATA: Female. status: : No status: NO. CONTRAST INDUCED NEPHROPATHY RISK FACTORS: Not applicable CREATININE: Creatinine Date Value Ref Range Status 09/21/2018 0.65 0.58 - 0.96 mg/dL Final 09/20/2018 0.69 0.58 - 0.96 mg/dL Final 09/19/2018 0.76 0.51 - 0.95 mg/dL Final eGFR-All Other Races Date Value Ref Range Status 09/21/2018 >60 . Final Comment: eGFR (Estimated GFR) Units of measure: mL/min/1.73 meters squared eGFR is derived from the reexpressed MDRD Study equation using the following parameters: serum creatinine, age, gender and race. The creatinine assay has been calibrated to be traceable to IDMS. An eGFR <60 mL/min/1.73m2 for >3 months is consistent with chronic kidney disease. Refer to KDOQI guidelines for clinical interpretation. In patients with unstable renal function, e.g. those with acute kidney injury, the eGFR may not accurately reflect actual GFR. eGFR- Date Value Ref Range Status 09/21/2018 >60 Final P.O.C.T. RESULTS: N/A September 21, 2018 TREATMENT: No Hydration needed. ALLERGIES: Reviewed and unchanged CONTRAST ALLERGY: NO. IV SITE: Inpatient - refer to LDA documentation IV SITE APPEARANCE: Clean,Dry and Intact SIGNED BY: Ariana Freeman RN September 21, 2018 8:50 AM CBC Collected: 09/21/2018 Status: F Source: [facility] 3:29 AM [facility] REPOSITORY TYPE CODE TESTS RESULT OUT OF RANGE REFERENCE UNITS LAB WBC 3.70-11.00 k/uL WBC 9.16 Result Comment: Microtainer specimen LAB RBC 3.90-5.20 m/uL RBC 4.60 LAB HGB 11.5-15.5 g/dL Hemoglobin 13.1 LAB HCT 36.0-46.0 % Hematocrit 39.6 LAB MCV 80.0-100.0 fL MCV 86.1 LAB MCH 26.0-34.0 pG MCH 28.5 LAB MCHC 30.5-36.0 g/dL MCHC 33.1 LAB RDWCV 11.5-15.0 % RDW-CV 14.1 LAB PLTCT 150-400 k/uL Platelet Count 188 LAB MPV 9.0-12.7 fL MPV 11.5 LAB ABSNUC <0.01 k/uL Absolute nRBC <0.01 Performed By: #### CBC, BMP, LIPB, MG1, TSH, HBA1C #### [facility] [address] [id number] BASIC METABOLIC PANL Collected: 09/21/2018 Status: F Source: [facility] 3:29 AM [facility] REPOSITORY TYPE CODE TESTS RESULT OUT OF REFERENCE UNITS RANGE LAB GLU 74-99 mg/dL Glucose 98 Result Comment: The [place] Diabetes Association (ADA) provides guidance for cutoff values for fasting glucose and random glucose. The ADA defines fasting as no caloric intake for at least 8 hours. Fas ting plasma glucose results between 100 to 125 mg/dL indicate increased risk for diabetes (prediabetes). Fasting plasma glucose results greater than or equal to 126 mg/dL meet the criteria for diagnosis of diabetes. In the absence of unequivocal hyperglycemia, results should be confirmed by repeat testing. In a patient with classic symptoms of hyperglycemia or hyperglycemic crisis, random plasma glucose results greater than or equal to 200 mg/dL meet the criteria for diagnosis of diabetes. Reference: Standards of Medical Care in Diabetes 2016, [place] Diabetes Association. Diabetes Care. 2016.39(Suppl 1). LAB BUN 7-21 mg/dL BUN 11 LAB CRET 0.58-0.96 mg/dL Creatinine 0.65 LAB NA 136-144 mmol/L Sodium 140 LAB K 3.7-5.1 mmol/L Potassium 3.9 LAB CL 97-105 mmol/L Chloride 105 LAB CO2 22-30 mmol/L CO2 Low 21 LAB AGAP 9-18 mmol/L Anion Gap 14 LAB CA 8.5-10.2 mg/dL Calcium, Total 9.0 LAB GFRAA eGFR- Amer. >60 LAB GFRNAA . eGFR-All Other Races >60 Result Comment: eGFR (Estimated GFR) Units of measure: mL/min/1.73 meters squared eGFR is derived from the reexpressed MDRD Study equation using the following parameters: serum creatinine, age, gender and race. The creatinine assay has been calibrated to be traceable to IDMS. An eGFR <60 mL/min/1.73m2 for >3 months is consistent with chronic kidney disease. Refer to KDOQI guidelines for clinical interpretation. In patients with unstable renal function, e.g. those with acute kidney injury, the eGFR may not accurately reflect actual GFR. Performed By: #### CBC, BMP, LIPB, MG1, TSH, HBA1C #### [facility] [address] [place] [id number] LIPID PANEL, BASIC Collected: 09/21/2018 Status: F Source: [facility] 3:29 AM [facility] REPOSITORY TYPE CODE TESTS RESULT OUT OF REFERENCE UNITS RANGE LAB CHOL <200 mg/dL Cholesterol 158 Result Comment: <200 mg/dL, Desirable 200-239 mg/dL, Borderline high >239 mg/dL, High LAB TRIGLY <150 mg/dL Triglyceride 74 Result Comment: <150 mg/dL, Normal 150-199 mg/dL, Borderline high 200-499 mg/dL, High >499 mg/dL, Very high LAB HDL >39 mg/dL HDL-Cholesterol 43 Result Comment: 40-59 mg/dL, Acceptable >59 mg/dL, High: Negative risk factor for coronary heart disease <40 mg/dL, Low: Positive risk factor for coronary heart disease LAB LDL <100 mg/dL LDL-Cholesterol High 100 Result Comment: <100 mg/dL, Optimal 100-129 mg/dL, Near optimal/above optimal 130-159 mg/dL, Borderline high 160-189 mg/dL, High >189 mg/dL, Very high Secondary prevention optimal LDL Cholesterol levels are recommended to be < 70 mg/dL LAB NONHDL <130 mg/dL Non HDL Cholesterol 115 Result Comment: <130 mg/dL, Optimal 130-159 mg/dL, Near optimal/above optimal 160-189 mg/dL, Borderline high 190-219 mg/dL, High >219 mg/dL, Very high Secondary prevention optimal non HDL Cholesterol levels are recommended to be < 100 mg/dL LAB FT hrs Fasting Time Unknown LAB VLDL <30 mg/dL VLDL Cholesterol 15 LAB TCHDL <5.10 TC:HDL Ratio 3.67 LAB LDLHDL <2.54 LDL:HDL Ratio 2.33 Result Comment: Reference: 1. National Cholesterol Education Program ATP III Guideline At-A-Glance Quick Desk Reference: National Heart, Lung, and Blood [place]. National Institutes of Health. 2001: NIH Publication No. 01-3305. 2. An International Atherosclerosis Society position paper: global recommendations for the management of dyslipidemia: executive summary, Atherosclerosis. 2014: 232(2):410-413. Performed By: #### CBC, BMP, LIPB, MG1, TSH, HBA1C #### [facility] [address] [place], [place] [address] MAGNESIUM Collected: 09/21/2018 Status: F Source: [facility] 3:29 AM [facility] [place] REPOSITORY TYPE CODE TESTS RESULT OUT OF REFERENCE UNITS RANGE LAB MG 1.7-2.3 mg/dL Magnesium 1.7 Performed By: #### CBC, BMP, LIPB, MG1, TSH, HBA1C #### [facility] [address] [place], [place] [address] TSH Collected: 09/21/2018 Status: F Source: [facility] 3:29 AM [facility] REPOSITORY TYPE CODE TESTS RESULT OUT OF RANGE REFERENCE UNITS LAB TSH 0.400-5.500 uU/mL TSH 1.150 Result Comment: If the patient is , TSH reference range varies by gestational period: First Trimester 0.100-2.500 uU/mL Second Trimester 0.200-3.000 uU/mL Third Trimester 0.300-3.000 uU/mL References: 1. Cobb, Libby M, Cristhian EK, et al. Management of Thyroid Dysfunction during and : An Endocrine Society Clinical Practice Guideline. J Clin Endocrinol Metab, 2012:97:4886-1546. 2. Jason JORDAN. Overview of thyroid disease in . UpToDate. 2016. Accessed on February 12, 2016. Performed By: #### CBC, BMP, LIPB, MG1, TSH, HBA1C #### [facility] [address] [address] HEMOGLOBIN A1C Collected: 09/21/2018 Status: F Source: SOLDIER 3:[address] [facility] REPOSITORY TYPE CODE TESTS RESULT OUT OF REFERENCE UNITS RANGE LAB HGBA1C 4.3-5.6 % Hemoglobin A1c 5.0 Result Comment: [place] Diabetes Association guidelines indicate that patients with HgbA1c in the range 5.7-6.4% are at increased risk for development of diabetes, and intervention by lifestyle modification may be beneficial. HgbA1c greater or equal to 6.5% is considered diagnostic of diabetes. LAB HBA0 mg/dL Est. Average Glucose 97 Result Comment: eAG: (Estimated average glucose) is a calculated value from HgbA1c and is client services representative of the average blood glucose level in the last 2-3 month period. Performed By: #### CBC, BMP, LIPB, MG1, TSH, HBA1C #### [facility] [address] [place] [id number] TROPONIN T Collected: 09/21/2018 Status: F Source: SOLDIER 3:29 AM [facility] REPOSITORY TYPE CODE TESTS RESULT OUT OF REFERENCE UNITS RANGE LAB TROPT 0.000-0.029 ng/mL Troponin T <0.010 Performed By: #### COMPA #### [place] [id number] CONFIRM BLOOD TYPE Collected: 09/21/2018 Status: F Source: SOLDIER 3:29 AM [facility] REPOSITORY TYPE CODE TESTS RESULT OUT OF REFERENCE UNITS RANGE LAB %ABR O ABO/RH(D) NEGATIVE Performed By: #### CONABO #### [place] [id number] URINALYSIS Collected: 09/20/2018 Status: F Source: SOLDIER 10:23 PM [facility] REPOSITORY TYPE CODE TESTS RESULT OUT OF RANGE REFERENCE UNITS LAB UCOL Yellow Color Yellow LAB [facility] Clear Clarity Abnormal Cloudy Alert LAB UGLUC Negative mg/dL Glucose, Urine Negative LAB UBIL Negative Bilirubin, Urine Negative LAB UKET Negative Ketones, Urine Negative LAB USPG 1.005-1.030 Specific [place], Ur 1.020 LAB UHGB Negative Hemoglobin/Blood, Negative Ur LAB UPH 4.5-8.0 pH 5.0 LAB UPROT Negative mg/dL Protein, Abnormal Urine 30 Alert LAB UUROB Normal Urobilinogen Normal LAB UNITR Negative Nitrites Negative LAB ULKEST Negative Leukest Negative LAB UCOM Comments SEE COMMENT Result Comment: Microscopic Examination Performed LAB UWBC 0-5 /HPF WBC 0-5 LAB URBC 0-3 /HPF Abnormal RBC Alert 3-5 LAB UEPI /HPF Epithelial Cells SEE COMMENT Result Comment: Few Squamous Epithelial Cells LAB UMCOM Urine SEE Evelio Comment COMMENT Result Comment: N/A Performed By: #### UA, UTOX2 #### [facility] [address] [place] [address] TOXICOLOGY SCREEN,UR Collected: 09/20/2018 Status: F Source: SOLDIER 10:23 PM [facility] REPOSITORY TYPE CODE TESTS RESULT OUT OF REFERENCE UNITS RANGE LAB UPCP2 Negative Negative Phencyclidin e, Urine Result Comment: Cutoff threshold at 25 ng/mL. LAB UBENZ2 Negative Benzodiazepines, Ur Abnormal Preliminary Alert positive. Result Comment: Cutoff threshold at 200 ng/mL. LAB UCOC2 Negative Cocaine, Negative Urine Result Comment: Cutoff threshold at 300 ng/mL. LAB UAMPH2 Negative Amphetamines, Urine Negative Result Comment: Cutoff threshold at 1000 ng/mL. LAB UTHC2 Negative Cannabinoids, Urine Negative Result Comment: Cutoff threshold at 50 ng/mL. LAB UOPI2 Negative Opiates, Negative Urine Result Comment: Cutoff threshold at 300 ng/mL. LAB UBARB2 Negative Barbiturates, Urine Negative Result Comment: Cutoff threshold at 200 ng/mL. LAB UETOH <11 mg/dL <11 Ethanol, Urine LAB UOXYC Negative Oxycodone, Negative Urine Result Comment: Cutoff threshold at 100 ng/mL. Comment: Immunoassay screen only. Cross reactivity with other substances can occur with immunoassay screening. Detection of any drug(s) in this urine toxicology panel is presumptive only. These tests are for med ical purposes only and should not be used for compliance monitoring, legal, or forensic use. Samples should be within normal physiological conditions (e.g. pH). This assay does not include adulteration/specimen validity testing. In clinical settings, confirmatory testing is at the practitioner's discretion [1]. If clinically indicated, confirmation by high specificity, quantitative methodology, which includes adulteration/spec imen validity testing, may be requested on the same specimen through Client Services ([phone]) if contacted within 48 hours of initial testing. [1]Substance Abuse and Mental Health Services Administration (2012). Clinical Drug Testing in Primary Care Technical Assistance Publication Series 32. Department of Health and Human Services, [place], p.10. These tests were developed and their performance characteristics determined by [facility] [place] ( [facility]). They have not been cleared or a pproved by the FDA. [facility] is regulated under CLIA as qualified to perform high complexity testing. These tests are used for clinical purposes. They should not be regarded as investigational or for research. Performed By: #### UA, UTOX2 #### [facility] [address], [place] [address] TYPE AND SCREEN Collected: 09/20/2018 Status: F Source: SOLDIER 10:10 PM [facility] REPOSITORY TYPE CODE TESTS RESULT OUT OF REFERENCE UNITS RANGE LAB %ABR O ABO/RH(D) NEGATIVE LAB % Antibody NEG Screen Performed By: #### TSCR #### [facility] [address] [place], [place] [address] FERNANDO BY IFA W/REFLEX Collected: 09/20/2018 Status: F Source: SOLDIER 10:10 PM [facility] REPOSITORY TYPE CODE TESTS RESULT OUT OF REFERENCE UNITS RANGE LAB ANASC Negative FERNANDO Negative Result Comment: Normal range : negative at <1:80 serum dilution. Approximately 6% of patients with connective tissue diseases with low positive EIA values are negative by IFA. Recommend follow-up with specific antinuclear antibodies if clinically indicated. LAB JUNIOR Negative Negative FERNANDO Titer Result Comment: Normal range : negative at <1:80 serum dilution. LAB ANAP FERNANDO Not applicable Pattern for negative result. Performed By: #### ANAIFR #### [facility] [address] [place], [place] [address] PROGRESS Observed: 09/20/2018 Status: COMPLETED Source: SOLDIER 9:45 PM [facility] HNO ID: [id number] Author: Feng Lovett Service: (none) Author Type: (none) Type: Progress Notes Filed: 09/20/2018 9:45 PM Note Text: Radiology Service Progress Note PATIENT NAME: Emma Cowart DATE OF SERVICE: September 20, 2018 TIME: 9:45 PM PATIENT IDENTITY VERIFICATION COMPLETED USING TWO (2) METHODS: Patient confirmed name verbally and Date of . PATIENT GENDER DATA: Female. status: : No status: NO. PATIENT RELEVANT IMPLANT DATA REVIEWED: Not Applicable RADIOLOGY DEPARTMENT: General X-ray: Exam(s) Completed: Chest X-Ray PERIPHERAL IV DATA: Not applicable SIGNED BY: Feng Lovett September 20, 2018 9:45 PM XR CHEST 2V FRONTAL/LAT Observed: 09/20/2018 Status: F Source: SOLDIER 9:40 PM [facility] REPOSITORY * * *Final Report* * * DATE OF EXAM: Sep 20 2018 9:40PM JIX [id number] - XR CHEST 2V FRONTAL/LAT / PROCEDURE REASON: Acute respiratory illness * * * * Physician Interpretation * * * * EXAMINATION: CHEST RADIOGRAPH (2 VIEW FRONTAL and LATERAL) CLINICAL HISTORY: Acute respiratory illness, MQ: XC2_5 Comparison: 03/06/2012 RESULT: Lines, tubes, and devices: None. Lungs and pleura: Lungs remain hypoinflated with slight increase of partial atelectatic changes at the bases. Prominence of the lung markings in the perihilar and basilar regions is likely secondary to crowded vessels, given the low lung volume. This could limit the evaluation for subtle interstitial or bronchial abnormalities, especially in the medial aspect of the bases. No pleural effusion or pneumothorax. Cardiomediastinal silhouette: Normal sized heart. Thoracic aorta is minimally tortuous. Other: . IMPRESSION: As above Form Coverer: YUVAL Transcribe Date/Time: Sep 20 2018 9:52P Dictated by : IRENA STRICKLAND MD This examination was interpreted and the report reviewed and electronically signed by: IRENA STRICKLAND MD on Sep 20 2018 9:53PM EST [id number] TROPONIN T Collected: 09/20/2018 Status: F Source: SOLDIER 6:53 PM [facility] REPOSITORY TYPE CODE TESTS RESULT OUT OF REFERENCE UNITS RANGE LAB TROPT 0.000-0.029 ng/mL Troponin T <0.010 Performed By: #### COMPA #### [facility] [address], [place] [address] APTT Collected: 09/20/2018 Status: F Source: SOLDIER 6:52 [facility] REPOSITORY TYPE CODE TESTS RESULT OUT OF RANGE REFERENCE UNITS LAB APTT 23.0-32.4 sec APTT 23.7 Result Comment: Unfractionated Heparin Therapeutic Ranges: Standard Heparin Nomogram: 53 to 78 seconds (anti-Xa level of 0.3 to 0.7 U/ml) Low Dose/ACS Nomogram: 49 to 67 seconds (anti-Xa level of 0.2 to 0.5 U/ml) Stroke Treatment Nomogram: 49 to 67 seconds (anti-Xa level of 0.2 to 0.5 U/ml) Note: The APTT therapeutic range has been determined for the current lot of laboratory APTT reagent in use throughout the [facility]. Sample checked for a clot. Specimen slightly hemolyzed. Performed By: #### PTT, PT, CMP, CRP, MG1, NTBNP, WSR, CBCDIF #### [facility] [address], [place] [address] PROTIME Collected: 09/20/2018 Status: F Source: SOLDIER 6:52 [facility] REPOSITORY TYPE CODE TESTS RESULT OUT OF RANGE REFERENCE UNITS LAB PSEC 9.7-13.0 sec PT Sec 10.3 Result Comment: Sample checked for a clot. Specimen slightly hemolyzed. LAB INR 0.9-1.3 PT INR 1.0 Result Comment: Vitamin K Antagonist (VKA) Therapeutic Range: INR 2 to 3 (Target INR of 2.5) Note: For patients treated with VKA drugs, such as warfarin, the [place] [employer] 2012 Guideline recommends a therapeutic INR range of 2 to 3 (target INR of 2.5). This recommendation includes high-risk patients with antiphospholipid syndrome with previous arterial or venous thromboembolism, current-generation mechanical or bioprosthetic aortic heart valve replacement. Note: Patients with mechanical aortic valve replacement and additional risk factors for thromboembolic events (atrial fibrillation, previous thromboembolism, LV dysfunction, hypercoagulable conditions) or an older generation mechanical AVR (i.e., ball in-Cage) or any mechanical MVR should have a INR therapeutic range of 2.5 to 3.5 (target INR of 3). Charly GH, et al. Chest 2012, 141:7S-47S Librado RA, et al. [facility] 2017, 70: 252-289 Sample checked for a clot. Specimen slightly hemolyzed. Performed By: #### PTT, PT, CMP, CRP, MG1, NTBNP, WSR, CBCDIF #### [facility] [address] [place], [place] [address] COMP METABOLIC PANEL Collected: 09/20/2018 Status: F Source: SOLDIER 6:52 [facility] REPOSITORY TYPE CODE TESTS RESULT OUT OF REFERENCE UNITS RANGE LAB TP 6.3-8.0 g/dL Protein, Total 7.7 LAB ALB 3.9-4.9 g/dL Albumin 4.0 LAB CA 8.5-10.2 mg/dL Calcium, Total 9.6 LAB TBIL 0.2-1.3 mg/dL Bilirubin, Total 0.3 LAB ALKP 34-123 U/L Alkaline Phosphatase 91 LAB AST 13-35 U/L AST High 65 LAB GLU 74-99 mg/dL Glucose High 113 Result Comment: The [place] Diabetes Association (ADA) provides guidance for cutoff values for fasting glucose and random glucose. The ADA defines fasting as no caloric intake for at least 8 hours. Fas ting plasma glucose results between 100 to 125 mg/dL indicate increased risk for diabetes (prediabetes). Fasting plasma glucose results greater than or equal to 126 mg/dL meet the criteria for diagnosis of diabetes. In the absence of unequivocal hyperglycemia, results should be confirmed by repeat testing. In a patient with classic symptoms of hyperglycemia or hyperglycemic crisis, random plasma glucose results greater than or equal to 200 mg/dL meet the criteria for diagnosis of diabetes. Reference: Standards of Medical Care in Diabetes 2016, [place] Diabetes Association. Diabetes Care. 2016.39(Suppl 1). LAB BUN 7-21 mg/dL BUN 9 LAB CRET 0.58-0.96 mg/dL Creatinine 0.69 LAB NA 136-144 mmol/L Sodium 140 LAB K 3.7-5.1 mmol/L Potassium 4.0 LAB CL 97-105 mmol/L Chloride 104 LAB CO2 22-30 mmol/L CO2 24 LAB AGAP 9-18 mmol/L Anion Gap 12 LAB ALT 7-38 U/L ALT High 104 LAB GFRAA eGFR- Amer. >60 LAB GFRNAA . eGFR-All Other Races >60 Result Comment: eGFR (Estimated GFR) Units of measure: mL/min/1.73 meters squared eGFR is derived from the reexpressed MDRD Study equation using the following parameters: serum creatinine, age, gender and race. The creatinine assay has been calibrated to be traceable to IDMS. An eGFR <60 mL/min/1.73m2 for >3 months is consistent with chronic kidney disease. Refer to KDOQI guidelines for clinical interpretation. In patients with unstable renal function, e.g. those with acute kidney injury, the eGFR may not accurately reflect actual GFR. Performed By: #### PTT, PT, CMP, CRP, MG1, NTBNP, WSR, CBCDIF #### [facility] [address] [place], [place] [address] C-REACTIVE PROTEIN Collected: 09/20/2018 Status: F Source: SOLDIER 6:52 PM [facility] REPOSITORY TYPE CODE TESTS RESULT OUT OF REFERENCE UNITS RANGE LAB CRP <0.9 mg/dL C-Reactive 0.3 Protein Performed By: #### PTT, PT, CMP, CRP, MG1, NTBNP, WSR, CBCDIF #### [facility] [address] [place], [place] [address] MAGNESIUM Collected: 09/20/2018 Status: F Source: SOLDIER 6:52 [facility] REPOSITORY TYPE CODE TESTS RESULT OUT OF REFERENCE UNITS RANGE LAB MG 1.7-2.3 mg/dL Magnesium 1.8 Performed By: #### PTT, PT, CMP, CRP, MG1, NTBNP, WSR, CBCDIF #### [place] [address] NT PRO BNP Collected: 09/20/2018 Status: F Source: SOLDIER 6:52 [facility] REPOSITORY TYPE CODE TESTS RESULT OUT OF REFERENCE UNITS RANGE LAB PBNP <125 pg/mL PRO B Natr <50 Peptide Performed By: #### PTT, PT, CMP, CRP, MG1, NTBNP, WSR, CBCDIF #### [place] [address] SED RATE WESTERGREN Collected: 09/20/2018 Status: F Source: SOLDIER 6:52 [facility] REPOSITORY TYPE CODE TESTS RESULT OUT OF REFERENCE UNITS RANGE LAB WSR 0-20 mm/hr Sed Rate High Westergren 32 Performed By: #### PTT, PT, CMP, CRP, MG1, NTBNP, WSR, CBCDIF #### [address] [address] CBC AND DIFFERENTIAL Collected: 09/20/2018 Status: F Source: SOLDIER 6:52 [facility] REPOSITORY TYPE CODE TESTS RESULT OUT OF REFERENCE UNITS RANGE LAB WBC 3.70-11.00 k/uL WBC High 13.59 LAB RBC 3.90-5.20 m/uL RBC 5.09 LAB HGB 11.5-15.5 g/dL Hemoglobin 14.4 LAB HCT 36.0-46.0 % Hematocrit 43.7 LAB MCV 80.0-100.0 fL MCV 85.9 LAB MCH 26.0-34.0 pG MCH 28.3 LAB MCHC 30.5-36.0 g/dL MCHC 33.0 LAB RDWCV 11.5-15.0 % RDW-CV 14.3 LAB PLTCT 150-400 k/uL Low Platelet Count 104 LAB MPV 9.0-12.7 fL MPV 12.7 LAB ANEUT % Neut% 63.8 LAB AANEUT 1.45-7.50 k/uL Abs Neut High 8.66 LAB ALYMP % Lymph% 27.6 LAB AALYMP 1.00-4.00 k/uL Abs Lymph 3.75 LAB AMONO % Steele% 7.2 LAB AAMONO <0.87 k/uL Abs Steele High 0.98 LAB AEOS % Eosin% 1.3 LAB AAEOS <0.46 k/uL Abs Eosin 0.18 LAB ABASO % Baso% 0.1 LAB AABASO <0.11 k/uL Abs Baso <0.03 LAB AUNRBC 0 /100 WBC NRBCs 0.0 LAB ABNRBC <0.01 k/uL Absolute nRBC <0.01 LAB DTYP DTYPE Auto Diff Performed By: #### PTT, PT, CMP, CRP, MG1, NTBNP, WSR, CBCDIF #### [facility] [address] [place], [place] [address] HISTORY PHYSICAL Observed: 09/20/2018 Status: COMPLETED Source: SOLDIER 5:32 PM [facility] REPOSITORY HNO ID: [id number] Author: Helio Lassiter MD Service: Cardiovascular Medicine Author Type: Physician Type: HANDP Filed: 09/21/2018 7:03 PM Note Text: [facility] H[facility] AND PHYSICAL Emma Cowart [id number] PRIMARY SERVICE: Cardiology: Electrophysiology CHIEF COMPLAINT: VT HPI: This is a 33 year old F with Hx of Morbid obesity, BRISEYDA (not on CPAP), depression, hypothyroidism who presents with sustained MMVT. Transferred to [facility] for further management +/- VT ablation. Patient presented after a detection of wide complex tachycardia on monitoring as part of work up for recurrent palpitations. She state worsening in the frequency of the episodes over the last few weeks. She report mild tunnel vision and subtle dizziness during recent episodes. No syncope as of recent, but recall a syncope episodes 5 years ago never investigated. I reviewed the holter strips (in green chart), she appears to have freq MM-PCVs that triggers MMVT after al franklin-short episodes with R-T. Resting ECG SR w/ sinus arrhythmia, normal axis, no evidence of pre-excitation, narrow QRS, normal ST T. No suggestion of Brugada pattern. No depol or repol signs of ARVC. ATc 427msec. Previous stress test strips (09/2016) reviewed from [place] without exercise induced VT (such as CPVT). Echo revealed structurally normal heart -LVEF 68%, beside RV mildly dilated w/out regional WMA. cMRI was planned but not completed due large patient body habitus. Patient sustained another episode of MMVT (230-250bpm) for 4 minutes w/o hemodynamic compromise that was self limited. No FHx of SCD or channelopathy on anamnesis. This was discussed with EP team at [facility] and patient is being transferred for VT work up and potentially VT ablation. 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 - Irritable bowel syndrome - Morbid obesity (HCC) stated BMI 47.3 - Other chronic nonalcoholic liver disease - Personal history of tobacco use, presenting hazards to health 1/2 ppd x 5 years; quit 08/18/14 PAST SURGICAL HISTORY: PAST SURGICAL HISTORY Procedure Laterality Date - DELIVERY ONLY 2002 , low cervical - EXCISION OF LINGUAL TONSIL 2003 - LAPAROSCOPIC UTERINE NERVE ABLATION 2011 - LIVER BIOPSY 2007 - PAST SURGICAL HISTORY OF 2009 spring coils in fallopian tubes - REMOVAL GALLBLADDER 01/08/08 - REMOVAL OF TONSILS,<12 Y/O 2003 Tonsillectomy, wisdom teeth FAMILY HISTORY: FAMILY HISTORY Problem Relation Age of Onset - Anxiety disorder Mother panic attacks - Heart Attack Father 54 - Heart disease Father coronary stents - other (liver disease) Father alpha 1 antitrypsin; has liver transplant - other (atrial fibrillation) Father - Thyroid Sister Hashimotos - Anxiety disorder Sister - other (atrial fibrillation) Paternal Grandmother - Heart disease Paternal Grandfather heart transplant - other (liver failure) Paternal Grandfather - Anxiety disorder Sister - other (atrial fibrillation) Paternal Uncle - other (atrial fibrillation) Paternal Aunt SOCIAL HISTORY: Social History Substance Use Topics - Smoking status: Former Smoker Packs/day: 0.50 Years: 10.00 Types: Cigarettes Quit date: 08/28/2014 - Smokeless tobacco: Never Used - Alcohol use Yes Comment: socially 1-2 per year MEDICATIONS: Prior to Admission Medications: omeprazole (PRILOSEC) 20 mg capsule Take 40 mg by mouth once daily. adalimumab (HUMIRA) 40 mg/0.8 mL injection Inject 40 mg subcutaneously every 2 weeks. levothyroxine (SYNTHROID) 100 mcg tablet Take one daily on empty stomach Current hospital medications: LORazepam 1 mg injection (ATIVAN) 1 mg INTRAVENOUS q 15 MIN PRN levothyroxine 100 mcg tab(s) (SYNTHROID) 100 mcg ORAL DAILY (6 AM) NaCl 0.9% 3-5 mL 3-5 mL INTRAVENOUS q 12 H melatonin 3 mg tab(s) 3 mg ORAL DAILY (8 PM) perflutren lipid microspheres 1.1 mg/mL 1.3 mL injection (DEFINITY) 1.3 mL INTRAVENOUS DIRECTED PRN pantoprazole DR 40 mg tab(s) (PROTONIX) 40 mg ORAL DAILY (6 AM) ALLERGIES: ALLERGIES Allergen Reactions - Hydrocodone-Acetami* Hives, GI Upset - Morphine Other: See Comments Abdominal pain - Penicillins Hives COMPLETE REVIEW OF SYSTEMS: PAIN ASSESSMENT: Negative for pain, history of chronic pain, or current treatment for a chronic pain condition. GENERAL: No weight loss, malaise or fevers HEENT: Negative for frequent or significant headaches, No changes in hearing or vision, no nose bleeds or other nasal problems NECK: Negative for lumps, goiter, pain and significant neck swelling RESPIRATORY: Negative for cough, wheezing or shortness of breath. CARDIOVASCULAR: Negative for chest pain, leg swelling or palpitations. GI: Negative for abdominal discomfort, blood in stools or black stools or change in bowel habits : No history of dysuria, frequency or incontinence CHIEF DIETITIAN: Negative for abnormal vaginal bleeding, abnormal vaginal discharge MUSCULOSKELETAL: Negative for joint pain or swelling, back pain or muscle pain. SKIN: Negative for lesions, rash, and itching. PSYCH: Negative for sleep disturbance, mood disorder and recent psychosocial stressors. HEMATOLOGY/LYMPHOLOGY Negative for prolonged bleeding, bruising easily or swollen nodes. ENDOCRINE: Negative for cold or heat intolerance, polyuria, polydipsia and goiter. NEURO: No history of headaches, syncope, paralysis, seizures or tremors See HPI All other systems reviewed and negative See HPI: Remaining ROS reviewed and negative. PHYSICAL EXAM: BP 104/57 Pulse 87 Temp 36.5 ?C (97.7 ?F) (Oral) Resp 18 Ht 167.6 cm (5' 6) Wt (!) 168.8 kg (372 lb 3.2 oz) SpO2 98% BMI 60.07 kg/m? General: Obese Skin: No rash on chest, arms or legs. Warm, dry. No stigmata of vasculitis or embolic phenomenon Head/Eyes: Sclera clear, normal conjunctiva. EOMI. Mouth/Pharynx: Teeth: Fair dentition. No lesions. No oral lesions Neck: unable to assess JVP d/t body habitus. Supple. Lungs: Normal respiratory effort. Clear lungs without rhonchi, rales, wheezing. Heart: Normal PMI. No lifts or thrills. Regular rate and rhythm. Normal S1, S2. No S3. No S4. No murmurs. No rubs. Peripheral Vascular/Arteries:DP/Radial pulses normal. Abdomen: Soft abdomen, nontender, nondistended without mass. No hepatosplenomegaly. Normal bowel sounds. Musculoskeletal: No kyphoscoliosis. No joint deformities. Extremities: No clubbing or cyanosis. No edema. Warm digits. Neurologic/Psychiatric: Oriented to person, place, time. Normal affect. No gross focal neurologic deficits. DATA: Laboratory: Recent Labs 09/19/18 0500 WBC 9.68 HB 13.6 HCT 42.3 PLT 205 Recent Labs 09/19/18 0500 NA 141 K 3.7 BUN 8 CREAT 0.76 GLUC 97 MG 2.0 EKG: most recent image reviewed Holter strip TELE: most recent recordings reviewed CXR: most recent image reviewed Echocardiogram: most recent image reviewed - Technically difficult exam due to body habitus and suboptimal positioning. - Exam indication: VT - The left ventricle is normal in size. There is no left ventricular hypertrophy. Left ventricular systolic function is normal. EF = 69 ? 5% (2D biplane) Definity contrast used for endocardial border detection. Normal left ventricular diastolic function. - The right ventricle is mildly dilated. RV poorly seen; appears slightly enlarged ?on limited views; PA pressures could not be assessed - There are no significant valvular abnormalities. - The patient has not had a prior CC echocardiographic exam for comparison. Cardiac Catheterization OSH ASSESSMENT AND PLAN: 33 year old F with Hx of Morbid obesity, BRISEYDA (not on CPAP), depression, hypothyroidism who presents with sustained MMVT. Transferred to [facility] for further management +/- VT ablation. Recurrent MMVT per report. Appears PVC that trigger MMVT after long-short event. No hemodynamic compromise. No ECG findings to suggest channelopathy, previous stress test 2017 without VT (CPVT). Echo with essentially structurally normal heart, except mild global v dilation (yet poor images). No evidence MVP. VT in structurally normal heart in the absence of channelopathy suggest outflow tract/fascicular VT. However, I cannot localize based on available Holter strips. No exercise related VT to suspect CPVT. I cannot completely rule out infiltrative disease such sarcoid, yet normal ECG, Echo and negative troponin is reassuring. She report questionable diagnosis of ankylosing spondylitis for which she get adalimumab. She has known BRISEYDA not on CPAP which would exacerbated arrhythmias. We will admit with initiation of Lidocaine IV as report last episode was severe with worse hemodynamic tolerance. Pads on and ECG lead in place to capture VT if occurs. cMRI for scar on DGE/sarcoid tomorrow and consider VT mapping/ablation based on results. Initiate CPAP. Check ESR, CRP and FERNANDO with reflex given report of doubtful autoimmune process. 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 Alvarado. I reviewed all the clinical information above and re-elicited the information from the pt to confirm the history. Pertinent PE findings were confirmed. My addendum to the above note is below. Recommendations and plans were reviewed with the pt. My impression and recommendations below reflects my discussion with Dr. Alvarado about this patient after our visit. Impression and Plans/Recommendations: 33 year old obese female presents with palps for about 5 years. First episode occurred while walking and she had syncope. Subsequent episodes were tolerated but had some tunnel vision at times. Lasts around 3 minutes or so and stops. More episodes lately. Monitor done and showed the WQRST pictured above. Likely VT 215 bpm. 3 lead ECG from monitor available in scanned external doc. And 2 lead ECG available in telemetry strips (See Scanned Docs in [employer] ([employer]), 2 documents at 09/18/2018 5:31 PM, External Hospital Records and Telemetry /Rhythm Strips). Looks like LBBB QRS and normal axis. Ilfeld probably around zero. MRI done here shows no DGE. Borderline chamber dilation and LVEF. Needs EPS and if inducible, then RFA. Looks epicardial!! Helio Lassiter MD For communication after 5 pm on weekdays and after 12 pm on weekends, please page the following: J5 and J6: page [phone] J7 and J8: page [phone] CASE MANAGEM Observed: 09/20/2018 Status: COMPLETED Source: [facility] 2:57 PM CLINIC OTHER CAMPUS REPOSITORY HNO ID: [id number] Author: Elyssa (Rn) ANDRE Williamson Service: Care Management Author Type: Registered Nurse Type: Care Mgt Progress Note Filed: 09/20/2018 3:28 PM Note Text: CARE MANAGEMENT DISCHARGE NOTE SERVICE DATE: 09/20/2018 SERVICE TIME: 2:58 PM LOS: 1 day Admission Date: 09/18/2018 DISCHARGE ARRANGEMENT (list agency and phone number) Provider: [facility] Phone: unknown CAREGIVER ASSESSMENT: Caregiver is ready, willing and able to meet the patient's needs as recommended by the inter-professional team? Yes Patient's transition needs and plan for meeting these needs: [facility] Does the patient have an acute stroke diagnosis, or has the patient had a stroke during this admission? No HANDOFF COMMUNICATION: RN to call report TRANSPORTATION ARRANGEMENTS: Mode of Transportation: Ambulance Transportation Agency and Phone #: [facility] ambulance ( [facility] ) [phone] / [phone]. Date of Trip: 09/20/2018 Type of Service: BLS Non-emergency Is Patient Medicaid Pending: No Discussion of financial coverage occurred with Patient . Forming Process Worker Location: [place] [address] Financial Care Management Responsibility: None Estimated Charge: NA Approving Screw Machine Set Up Operator Tool: NA ADDITIONAL CONTACT RESOURCES: none Discharge Information Row Name Admission (Current) from 09/18/2018 in [facility] CV MED/SURG Transportation Agency [facility] Transport Arranged To: [facility] - J71 Bed 22 Patient will be transferred to [facility]. [facility] transporting patient via cot with cardiac monitoring between 4:30 and 5:00. Patient aware. Transfer paperwork completed and signed by patient. SIGNATURE: Elyssa Williamson RN PATIENT NAME: Emma Cowart DATE: September 20, 2018 TIME: 2:57 PM PAGER/CONTACT #: [phone] PLAN OF CARE Observed: 09/20/2018 Status: COMPLETED Source: [facility] 1:27 PM [facility] REPOSITORY HNO ID: [id number] Author: Bel Mejía (Pharmacist) Service: Pharmacy Author Type: Pharmacist Type: Plan of Care Filed: 09/20/2018 1:28 PM Note Text: DISCHARGE MEDICATION REVIEW BY PHARMACY Patient Name: Emma Cowart Account #: Data Unavailable Admission Date: 09/18/2018 Date of Contact: September 20, 2018 Time of Contact: 1:27 PM Medication list was reviewed by a Pharmacist for drug interactions or drug related problems:Yes Below is a summary of pharmacist recommendations discussed with LIP: No Recommendations at this time from Discharge Medication List. Patient being transferred to [facility] - no pharmaceutical recommendations at this time BEL MEJÍA PHARMACIST September 20, 2018 1:27 PM Pager: [phone] 09/20/2018 1:27 PM Medication List CONTINUE taking these medications HUMIRA 40 mg/0.8 mL injection Generic drug: adalimumab levothyroxine 100 mcg tablet Commonly known as: SYNTHROID Take one daily on empty stomach omeprazole 20 mg capsule Commonly known as: PriLOSEC CNDS Observed: 09/20/2018 Status: COMPLETED Source: [facility] 1:15 PM [facility] REPOSITORY HNO ID: [id number] Author: Mary Rodriguez Service: Electrophysiology Author Type: Nurse Practitioner Type: Discharge Summaries Filed: 09/20/2018 1:16 PM Note Text: HRA DISCHARGE SUMMARY PATIENT NAME: Emma Cowart Code Status: Full Code Highest Readmission Risk Score: 7 The 30 day readmissions risk score is derived from an internally validated risk model which evaluates patient level characteristics, utilization history, medication orders and lab results up until the day of discharge. Patients with a score of 40 or above are considered highest risk for readmission. Specific patient level drivers will be listed at the bottom of the summary. Admission Information Admission Information ADMIT DATE: 09/18/2018 DISCHARGE DATE: 09/20/2018 MY DOCTORS AND MEDICAL TEAM: My Main Hospital Doctor: Edith Murray Primary Care Provider: JUNE Deshpande My Medical Team Members: Treatment Team: Attending Provider: Edith Murray MY CONDITION AT DISCHARGE: Stable REASON I WAS IN THE HOSPITAL: WCT, sustained ventricular tachycardia SUMMARY OF WHAT HAPPENED WHILE I WAS IN THE HOSPITAL: Dr. Luevano contacted Dr. Murray on 09/17/18 regarding Emmamargarito Cowart with episode of WCT. A LHC was performed in [place] which was normal. Emma Cowart was transferred to [facility] evaluation. An echocardiogram was performed which revealed EF 69%, no LVH, no wall motion abnormality, RV mildly dilated, trace TR. No . A Cardiac MRI was ordered however the scanner could not accomodate the patient. The patient experienced sustained VT 230-250 bpm this AM that lasted 4 minutes, she was symptomatic with palpitations. She didn't experience loss of consciousness and didn't require defibrillation. Dr. Murray dicussed the case with Dr. Lassiter and Dr. العراقي and Emmamargarito Cowart is being transferred to undergo a cardiac MRI and further treatment options for monophonic VT. OTHER PROBLEMS/DIAGNOSIS: Principal Problem: Sustained VT (ventricular tachycardia) (HCC) Active Problems: Wide-complex tachycardia (HCC) Obesity, Class III, BMI >= 40 Fcrxy-3-jnegwjoozcz deficiency (HCC) Ankylosing spondylitis (HCC) Resolved Problems: * No resolved hospital problems. * OPERATIONS PERFORMED WHILE IN THE HOSPITAL: None IMPORTANT TEST/PROCEDURES: Echocardiogram TEST RESULTS NOT AVAILABLE AT THIS TIME: No pending results Discharge Disposition Discharge Disposition: Acute Care Facility Transfer to [facility] Activity When You Leave the Hospital May bathe and shower Resume pre-hospital activity Diet Instructions Regular LABS AND PROCEDURES PENDING AT DISCHARGE: No pending results. FOLLOW-UP APPOINTMENTS ALREADY SCHEDULED WITH A CASTRO CLINIC PROVIDER: No future appointments. ALLERGIES Allergen Reactions - Hydrocodone-Acetami* Hives, GI Upset - Morphine Other: See Comments Abdominal pain - Penicillins Hives DISCHARGE MEDICATION: Current Discharge Medication List CONTINUE these medications which have NOT CHANGED omeprazole (PriLOSEC) 40 mg Take 40 mg by mouth once daily. adalimumab (HUMIRA) 40 mg Inject 40 mg subcutaneously every 2 weeks. levothyroxine (SYNTHROID) 100 mcg tablet Take one daily on empty stomach Qty: 30 tablet Refills: 3 Associated Diagnoses:Konrad's thyroiditis Discharge Physical Exam: VITAL SIGNS: BP 134/69 Pulse 76 Temp 36.8 ?C (98.2 ?F) (Oral) Resp 18 Ht 167.6 cm (5' 6) Wt (!) 169 kg (372 lb 9.2 oz) SpO2 99% BMI 60.14 kg/m? GENERAL: Alert, no distress, cooperative, Morbidly Obese NECK: No jugulovenous distention LUNGS: Lungs clear to auscultation, Good diaphragmatic excursion CARDIAC: Normal S1 and S2; no rubs, murmurs, or gallops ABDOMEN: Abdomen soft, non-tender, BS normal, No masses or organomegaly EXTREMITIES: Extremities normal, no deformities, edema, clubbing or skin discoloration. Good capillary refill., No ulcers PULSES: 2+ radial, 2+ posterial tibial, 2+ dorsalis pedis The patient's risk for 30-day readmission is determined using the following contributing factors: Pt variables contributing to increased readmission risk: 8.5 First Resulted Calcium During Admission 8 Most Recent BUN Result 6 Active Medication Orders 1 Insurance - Private Coverage TIME OF CARE: Discharge Management: I personally spent greater than 30 minutes involved in the discharge management of this patient. SIGNATURE: Maya Rodriguez, MSN, FLOORING SALESPERSON.GROUNDS/MAINTENANCE SPECIALIST Pager [phone] DATE: September 20, 2018 TIME: 1:15 PM PROGRESS Observed: 09/20/2018 Status: COMPLETED Source: [facility] 10:53 AM CLINIC OTHER CAMPUS REPOSITORY HNO ID: [id number] Author: Edith Murray Service: Electrophysiology Author Type: Physician Type: Progress Notes Filed: 09/20/2018 12:34 PM Note Text: HRA PROGRESS NOTE: [facility] Electrophysiology (EP) - [facility] ([facility]) SERVICE DATE: 09/20/2018 SERVICE TIME: 10:53 AM Subjective INTERIM HISTORY: Emma Cowart experienced an episode of palpitations this AM associated with sustained VT x 4 min. She denies dizziness, syncope, CP. Objective PHYSICAL EXAM: Body mass index is 60.14 kg/m?. O2 Therapy: Room Air No Data Recorded Patient Vitals for the past 24 hrs: BP Temp Temp src Pulse Resp SpO2 09/20/18 0800 124/82 36.3 ?C (97.3 ?F) Oral 67 18 98 % 09/20/18 0700 141/95 36.5 ?C (97.7 ?F) Oral 106 18 100 % 09/20/18 0520 90/67 - - - - - 09/20/18 0514 (!) 86/42 36.5 ?C (97.7 ?F) Oral 69 18 97 % 09/19/18 2358 128/76 36.6 ?C (97.9 ?F) Oral 87 18 97 % 09/19/18 2027 109/52 36.7 ?C (98.1 ?F) Oral 64 18 99 % 09/19/18 1626 126/68 36.6 ?C (97.9 ?F) Oral 74 18 98 % 09/19/18 1135 104/70 37.1 ?C (98.8 ?F) Oral 67 18 97 % Pleasant, comfortable, not in acute distress. Awake, alert, oriented times 3. Moves all extremities. SKIN: No rash or lumps. HEENT: Normocephalic, face symmetrical. NECK: Supple, no JVD, no carotid bruit, no thyromegaly. LUNGS: Clear to auscultation bilaterally. CARDIAC: PMI present, RRR, S1 and S2, no S3 or S4, no additional heart sounds or murmurs. ABDOMEN: Soft, nontender, bowel sounds present. EXTREMITIES: No edema. PULSES: Peripheral pulses present. MEDICATIONS: Current hospital medications: LORazepam 1 mg injection (ATIVAN) 1 mg INTRAVENOUS q 15 MIN PRN levothyroxine 100 mcg tab(s) (SYNTHROID) 100 mcg ORAL DAILY (6 AM) NaCl 0.9% 3-5 mL 3-5 mL INTRAVENOUS q 12 H melatonin 3 mg tab(s) 3 mg ORAL DAILY (8 PM) perflutren lipid microspheres 1.1 mg/mL 1.3 mL injection (DEFINITY) 1.3 mL INTRAVENOUS DIRECTED PRN pantoprazole DR 40 mg tab(s) (PROTONIX) 40 mg ORAL DAILY (6 AM) DATA: Diagnostic tests reviewed for today's visit: Most recent labs Most recent telemetry Past 72 Hour Labs: Recent Labs 09/19/18 0500 WBC 9.68 RBC 4.88 HB 13.6 HCT 42.3 MCV 86.7 MCH 27.9 MCHC 32.2 PLT 205 MPV 11.1 GLUC 97 BUN 8 CREAT 0.76 NA 141 K 3.7 CHLOR 109* CO2 24 CA 8.5 MG 2.0 Last Lab Drawn: TSH 1.690 09/17/2018 Triglyceride 102 03/03/2008 HDL Cholesterol 39 03/03/2008 LDL Cholesterol 128 03/03/2008 Cholesterol, Total 187 03/03/2008 Assessment/Plan Active Problems: Wide-complex tachycardia (HCC) POA: Yes Assessment AND Plan: Emma Cowart was transferred from [facility] on 09/18/18 due to symptomatic WCT tachycardia 210 bpm. She underwent a LHC in [place] which was normal. During her hospitalization at [facility] she underwent an echocardiogram which revealed EF 69%, no LVH, no wall motion abnormality. RV mildly dilated,trivial TR, no . She was scheduled to undergo a cardiac MRI, due to morbid obesity she was unable to fit into the scanner. She experienced an episode of sustained VT for 4 min at 230 bpm. She converted spontaneously. She did not lose consciousness, denies CP, dizziness, SOB. . She experienced palpitations, and anxiety. Dr. Murray spoke with Dr. العراقي and she is able to undergo the Cardiac MRI there. I called the transfer line and requested a private room, information was provided regarding her history and condition. I spoke with Dr. Finley the (transfer physician quarterback and she will be accepted to the EP service. Dr. Murray will call and speak with Dr. Lassiter the attending physician on the EP service. Obesity, Class III, BMI >= 40 POA: Yes Assessment AND Plan: Lvnnf-8-hpicgaypooq deficiency (HCC) POA: Yes Assessment AND Plan: Ankylosing spondylitis (HCC) POA: Yes Assessment AND Plan: Resolved Problems: * No resolved hospital problems. * Medication and Non-Pharmacologic VTE Prophylaxis/Anticoagulants SIGNATURE: Maya Rodriguez, MSN, FLOORING SALESPERSON.GROUNDS/MAINTENANCE SPECIALIST PATIENT NAME: Emma Cowart DATE: September 20, 2018 TIME: 10:53 AM PAGER/CONTACT #: [phone] [facility] Electrophysiology (EP) - [facility] ([facility]) EP Attending I contacted Dr. Lassiter of the EP service at [facility]. He agreed to accept Ms. Cowart in transfer. Edith Murray MD September 20, 2018 12:34 PM CONSULTATION Observed: 09/19/2018 Status: F Source: [facility] 4:[address] [facility] REPOSITORY [facility] Medical Records Department [address] [place] [address] Consultation 09/18/18 0703 MR#: [id number] Acct: [id number] Name: EMMA COWART Rep #: [id number] : 1985 33 From: Rafael Shipley MD PCP: Vargas Arzate Status: DIS ARGENIS Y Location: [place] [address] Reason for Consult Date of Consultation: 09/18/18 Reason for Consultation: Evaluation of palpitations History of Present Illness: The patient is a 33 year old F who presents for episodes of her heart racing, resulting in tunnel vision and out of body experiences. Patient states she has been having these episodes for several years, with the increase in occurrence over the last year. She had an episode occurred this morning and so went to see Dr. Lama. A Holter monitor was placed, and patient had another episode this afternoon, at which time a wide-complex tachycardia lasting 3 minutes was noted on the Holter monitor. Patient was told to come in for further evaluation. Patient has history of Konrad's thyroiditis, ankylosing spondylitis, and alpha 1 antitrypsin disorder. She is status post cholecystectomy. She denies alcohol or tobacco use. She denies any changes in her thyroid medications recently. She currently denies any fever, vision changes, chest pain, shortness of breath, abdominal pain, nausea or vomiting, or any other complaints at this time. She stated she did have some chest discomfort and left neck discomfort when she was having the episode. She was admitted to the telemetry unit. After further discussion with her primary iron erector Dr. Luevano he recommended and requested that the patient undergo an invasive cardiac catheterization workup. After that depending on the findings patient would need an EP referral Past Medical History Allergies/Adverse Reactions: Allergies Penicillins Allergy (Verified 09/17/18 17:55) Hives hydrocodone bitartrate [From Vicodin] Adverse Reaction (Verified 09/18/18 00:14) Other Pain in stomach, n/v morphine Adverse Reaction (Verified 09/17/18 17:55) Nausea Home Medications: Ambulatory Orders Medication Instructions Recorded Past Medical History (Chronic Problems): Chronic Problems Morbid obesity (Chronic) Hypothyroidism (Chronic) Ankylosing spondylitis (Chronic) GERD (gastroesophageal reflux disease) (Chronic) Nntkw-3-lurbyzjmpfl deficiency (Chronic) Surgical History: - - Cholecystectomy, x 1, T+A. Psychiatric History: Anxiety, Depression CHIEF DIETITIAN History: No pertinent CHIEF DIETITIAN history - *Family History Maternal History Items: - - Patient mother is healthy with only home medications reflux medication and regimen for anxiety and depression otherwise denies any history of diabetes, heart disease, cancer. Paternal History Items: - - Patient father with history of heart disease, status post NH with PCI x2 in 2016. Lives: Spouse/ Significant Other - Patient was with her and son. Smoking Status: Former smoker Tobacco Use: Cigarettes Alcohol: None Drugs: None Review of Systems - Review of Systems General: Denies: Fever, Night Sweats, Fatigue HEENT: Denies: Vision Change Cardiovascular: Reports: Palpitations, Dizziness, Near Syncope. Denies: Chest Discomfort, Shortness of Breath, Orthopnea, PND, Peripheral Edema, Lightheadedness, Syncope Respiratory: Denies: Cough, Sputum Production, Hemoptysis Gastrointestinal: Denies: Hematemesis, Hematochezia, Melena Genitourinary: Denies: Dysuria, Hematuria Muscoloskeletal: Denies: Myalgias Skin: Denies: Rash Neurological: Reports: Dizziness Psychiatric: Denies: Anxiety Endocrine: Denies: Unexplained Weight Loss Hematologic/ Lymphatic: Denies: Anemia Subjectve: Pleasant lady in no apparent distress Objective: Vital Signs Temp Pulse Resp BP Pulse Ox 98.1 F 97 18 126/80 H 98 09/18/18 06:32 09/18/18 06:32 09/18/18 06:32 09/18/18 06:32 09/18/18 06:32 Oxygen Delivery Method Room Air Weight: 374 lb 9.046 oz Body Mass Index (BMI) 60.4 Finger Stick Blood Glucose 105 Intake and Output for Last 24 Hours Intake Total 830 / 830 Balance 830 / 830 General: Awake, Alert, Oriented x 3 HEENT: PERRL, EOMI, Sclera Non Icteric Neck: Supple, Good ROM, No Lymph Node Enlargement Lungs: Clear to auscultation Cardiovascular: Regular Rhythm, Normal S1, Normal S2, No Murmurs, No Rubs, No Gallops Vascular: No Carotid Bruits, Normal Femoral Pulses, Normal Radial Pulses, Normal Dorsalis Pedal Pulse, Normal Posterior Tibial Pulses Abdomen: Bowel Sounds Present, Soft, Non Tender, No HSM, No Organomegaly Extremities: No Cyanosis, No Clubbing, No edema Neurological: No Focal Motor or Sensory Deficit Psych/Mental Status: Appropriate 09/17/18 18:25: WBC 14.3 H, RBC 5.29, Hgb 14.9, Hct 45.8, MCV 86.6, MCH 28.2, MCHC 32.5, RDW 14.3, RDW Differential 44.9 H, Plt Count 212, MPV 11.8, Immature Gran % (Auto) 0.200, Neut % (Auto) 61.5, Lymph % (Auto) 29.5, Steele % (Auto) 7.5, Eos % (Auto) 1.2, Baso % (Auto) 0.1, Absolute Neuts (auto) 8.8 H, Total Counted Not Reportable 09/17/18 18:25: PT 13.0, INR 1.0, APTT 27.2 09/17/18 18:25: Sodium 139, Potassium 3.6, Chloride 105, Carbon Dioxide 26.0, Anion Gap 8, BUN 9, Creatinine 0.79, Est GFR (MDRD) Af Amer 107, Est GFR (MDRD) Non-Af 88, BUN/Creatinine Ratio 11.4, Glucose 108 H, Calcium 8.9, Magnesium 1.8, Troponin I < 0.015 09/17/18 18:25: Hemoglobin A1c 5.7 09/17/18 21:53: Troponin I < 0.015 09/18/18 00:20: Urine Color Yellow, Urine Clarity Clear, Urine pH 7.0, Ur Specific [place] 1.010, Urine Protein Negative, Urine Glucose (UA) Normal, Urine Ketones Negative, Urine Occult Blood Negative, Urine Nitrite Negative, Urine Bilirubin Negative, Urine Urobilinogen Normal, Ur Leukocyte Esterase Negative, Urine RBC 0 SEEN, Urine WBC 0 SEEN 09/18/18 00:28: Troponin I < 0.015 09/18/18 05:00: WBC 9.9, RBC 4.74, Hgb 13.5, Hct 40.8, MCV 86.1, MCH 28.5, MCHC 33.1, RDW 14.4, RDW Differential 44.5 H, Plt Count 223, MPV 11.3, Immature Gran % (Auto) 0.200, Neut % (Auto) 52.3, Lymph % (Auto) 35.7, Steele % (Auto) 9.9, Eos % (Auto) 1.7, Baso % (Auto) 0.2, Absolute Neuts (auto) 5.2, Total Counted Not Reportable 09/18/18 05:00: Sodium 143, Potassium 4.1, Chloride 110 H, Carbon Dioxide 27.0, Anion Gap 6, BUN 9, Creatinine 0.73, Est GFR (MDRD) Af Amer 116, Est GFR (MDRD) Non-Af 96, BUN/Creatinine Ratio 12.3, Glucose 95, Calcium 8.5, Triglycerides 65, Cholesterol 157, LDL Cholesterol 98, VLDL Cholesterol 13, HDL Cholesterol 46 09/18/18 05:00: PT 13.3, INR 1.0, APTT 27.2 Rhythm: EKG: Normal sinus rhythm with no acute changes Assessment/Plan 1. Palpitations with wide complex tachycardia * The etiology of the above is unclear at this particular time. I have not personally reviewed the telemetry strips but after discussion with the primary iron erector who has reviewed the above he recommends a cardiac catheterization. The risk benefits alternatives have been explained to the patient who understands and agrees to proceed. Depending on the findings further recommendations will be made. * * Thank you for allowing me to participate in the care of your patient. Please don't hesitate to call if any issues arise 09/19/18 1601 <Electronically signed by Rafael Shipley MD> Date Rafael Violetta MD Cosigner Signature (if applicable): Date CC: Vargas Arzate; Lorena Nettles; Rafael Shipley MD Signed 12 LEAD ELECTROCARDIOGRAM Observed: 09/19/2018 Status: F Source: [place] 1:58 PM [facility] REPOSITORY [facility] Cardiovascular Services [address] [place] [address] 12 Lead EKG 09/18/18 0523 MR#: [id number] Acct: [id number] Name: EMMA COWART Rep #: [id number] : 1985 33 From: Aftab Tee MD Attending Dr: Gloria Gonzalez MD Status: DIS ARGENIS Ordering Dr: Lorena Nettles Date: 09/18/18 Location: [facility] Sex: F C Admitted: 09/17/18 Test Reason : AM EKG Blood Pressure : / mmHG Vent. Rate : 067 BPM Atrial Rate : 067 BPM P-R Int : 156 ms QRS Dur : 078 ms QT Int : 434 ms P-R-T Axes : 053 008 028 degrees QTc Int : 458 ms Normal sinus rhythm Normal ECG Confirmed by YON CPOELAND, AFTAB ([id number]), editor & co founder KEVIN QUESADA ([id number]) on 09/19/2018 1:57:56 PM Referred By: Lorena Nettles Confirmed By:AFTAB TEE MD 09/19/18 1358 Date Aftab Tee MD CC: Vargas Arzate; Lorena Nettles; Gloria Gonzalez MD Signed 12 LEAD ELECTROCARDIOGRAM Observed: 09/19/2018 Status: F Source: [place] 1:42 PM [facility] REPOSITORY [facility] Cardiovascular Services [address] [place] [address] 12 Lead EKG 09/17/18 1804 MR#: [id number] Acct: [id number] Name: EMMA COWART Rep #: [id number] : 1985 33 From: Aftab Tee MD Attending Dr: Gloria Gonzalez MD Status: DIS ARGENIS Ordering Dr: Kayleigh Thorpe MD Date: 09/17/18 Location: [facility] Sex: F C Admitted: 09/17/18 Test Reason : CP Blood Pressure : / mmHG Vent. Rate : 091 BPM Atrial Rate : 091 BPM P-R Int : 166 ms QRS Dur : 076 ms QT Int : 356 ms P-R-T Axes : 057 004 049 degrees QTc Int : 437 ms Normal sinus rhythm Normal ECG Confirmed by YON COPELAND, AFTAB ([id number]), editor & co founder KEVIN QUESADA ([id number]) on 09/19/2018 1:42:05 PM Referred By: Lorena Nettles Confirmed By:AFTAB TEE MD 09/19/18 1342 Date Aftab Tee MD CC: Vargas Arzate; Lorena Nettles; Kayleigh hTorpe MD; Gloria Gonzalez MD Signed CASE MGT INIT Observed: 09/19/2018 Status: COMPLETED Source: [facility] 12:32 PM CLINIC OTHER CAMPUS REPOSITORY O ID: [id number] Author: Elyssa (Rn) ANDRE Williamson Service: Care Management Author Type: Registered Nurse Type: Care Mgt Initial Assessment Filed: 09/19/2018 12:38 PM Note Text: CARE MANAGEMENT: ASSESSMENT AND DISCHARGE PLAN SERVICE DATE: 09/19/2018 SERVICE TIME: 12:32 PM PRIMARY CARE PHYSICIAN: JUNE Deshpande ADMISSION STATUS: Observation Needs Prior to Discharge: Discharge Prescriptions;To Be Determined Pharmacy: [facility] MEDICAL: Patient/Orthopedic Nurse Stated Goals: To return home to life as it was To be cured/healed Health Insurance: MMO SUPERMED PLUS None Health Issues Impacting Discharge Plan: SVT Last Admission Date: Previous admit date: 01/25/2008 Is this Within the Past 30 days? No Advance Directive: Current Advance Directive: None In Chart: No Steel Grinder Attempted to Assist with AD Completion: Yes Action: Education Provided;Patient Unwilling Health Literacy: 1. How often do you need to have someone help you when you read instructions, pamphlets, or other written material from your doctor or pharmacy? Rarely - 2 2. How confident are you filling out medical forms by yourself? Quite a bit - 2 If Patient scores > 3 on either question, the following interventions were put into place: Patient did not score > 3 FUNCTIONAL AND COGNITIVE/BEHAVIORAL PRIOR TO ADMISSION: Baseline Mental Status: Alert AND Oriented, Person, Place , Time and Situation Functional Status: Independent Does Patient Currently Receive Any Community Services or Home Care? None Equipment Prior to Admission: None Has the Patient Been in a [facility]sp Facility in the Past 30 days? No SOCIAL: Living Arrangement: Home Lives With: Spouse Financial Resources: employed Primary Contact: Extended Emergency Contact Information Primary Emergency Contact: Stephania Delatorre Relation: Parent Secondary Emergency Contact: Mauro Cowart Mobile Relation: Spouse Supportive: Yes Other Important Patient Contacts: None Caregiver Assessment: Caregiver is ready, willing and able to meet the patient's needs as recommended by the inter-professional team? No Caregiver Needed Patient's transition needs and plan for meeting these needs: Home Does the patient have an acute stroke diagnosis, or has the patient had a stroke during this admission? No Medication Adherence: I am convinced of the importance of my prescription medication: Agree mostly - 0 I worry that my prescription medication will do more harm than good to me Disagree mostly - 0 I feel financially burdened by my [id number] expenses for my prescription medication: Disagree mostly -0 Patient is categorized as low risk < 2 Are you interested in bedside delivery of your medications? No Food Concerns: In the Last Month, Have You had Trouble Getting Food? No trouble getting food During the Last Month, Have You Worried Whether Your Food Would Run Out Before You Had Enough Money to Buy More? No Is the Patient Psychosocially Complex? 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 (+) PCP (+) Rx. Plan for cardiac MRI today. No transitional needs identified presently. SIGNATURE: Elyssa Williamson RN PATIENT NAME: Emma Cowart DATE: September 19, 2018 TIME: 12:32 PM PAGER/CONTACT #: [phone] ALLIED HEALTH Observed: 09/19/2018 Status: COMPLETED Source: [facility] 11:15 AM [facility] REPOSITORY HNO ID: [id number] Author: Chaplain Howe (Chaplain) Service: Spiritual Care Author Type: Workday Director Type: Allied Health Filed: 09/19/2018 11:18 AM Note Text: SPIRITUALCARE Spiritual Care Visit- Brief Note Name: Emma Cowart Date: September 19, 2018 Notes: Workday Director made a routine visit. Patient was out for a procedure and patient's was present. Workday Director introduced her shelf and explained the purpose of this visit. Patient's was watching a program. Workday Director offered to come back when patient returned. Workday Director Signature: Chaplain Carley To contact the Spiritual Care Department: Please call [phone] or Page the On-Call Workday Director at pager [phone] Thank you for the opportunity to be of service. This is an electronically created document. IF PRINTED, PLEASE DO NOT REMOVE FROM THE CHART OR MODIFY PRINTED COPY. NURSING PROG Observed: 09/19/2018 Status: COMPLETED Source: [facility] 10:16 AM [facility] REPOSITORY HNO ID: [id number] Author: Sirena (Rn) ANDRE Jackson Service: Cardiovascular Testing Author Type: Registered Nurse Type: Nursing Progress Note Filed: 09/19/2018 10:17 AM Note Text: Definity IVP given for Echo image enhancement per protocol. Procedure explained. No signs of infiltration, tolerated well. HISTORY PHYSICAL Observed: 09/19/2018 Status: COMPLETED Source: [facility] 10:04 AM [facility] REPOSITORY HNO ID: [id number] Author: Edith Murray Service: Electrophysiology Author Type: Physician Type: HANDP Filed: 09/19/2018 10:12 AM Note Text: HANDP: [facility] (EP) - [facility] ([facility]) SERVICE DATE: 09/19/2018 SERVICE TIME: 10:04 AM CONSULTING PHYSICIAN: Edith Murray MD PCP: JUNE Deshpande ATTENDING: Edith uMrray REASON FOR ADMISSION : Arrhythmias Subjective CHIEF COMPLAINT: arryhythmia HISTORY OF PRESENT ILLNESS: Ms. Cowart is a 33 year old female transferred from [facility] for evaluation of wide complex tachycardia. She states she began experiencing intermittent palpitations about 5 years ago. Episodes would occur about every few months and last for only a couple minutes. She would experience palpitations, racing heart rates, lightheadedness, near syncope and tunnel vision during episodes. She states she has only passed out once in her life and this occurred several years ago without prodrome. She was being evaluated by her iron erector, Dr. Camacho, and a monitoring analyst was applied recently. This revealed wide complex tachycardia suspicious for VT. She was admitted to [facility] and underwent cardiac catheterization yesterday which reportedly did not show substantial CAD, and LV systolic function was normal. She was transferred to [facility] for further evaluation. She denies exertional symptoms such as chest pain and shortness of breath. 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 - Irritable bowel syndrome - Morbid obesity (HCC) stated BMI 47.3 - Other chronic nonalcoholic liver disease - Personal history of tobacco use, presenting hazards to health 1/2 ppd x 5 years; quit 08/18/14 PAST SURGICAL HISTORY Procedure Laterality Date - DELIVERY ONLY 2002 , low cervical - EXCISION OF LINGUAL TONSIL 2003 - LAPAROSCOPIC UTERINE NERVE ABLATION 2011 - LIVER BIOPSY 2007 - PAST SURGICAL HISTORY OF spring coils in fallopian tubes - REMOVAL GALLBLADDER 01/08/08 - REMOVAL OF TONSILS,<12 Y/O 2003 Tonsillectomy, wisdom teeth FAMILY HISTORY Problem Relation Age of Onset - Anxiety disorder Mother panic attacks - Heart Attack Father 54 - Heart disease Father coronary stents - other (liver disease) Father alpha 1 antitrypsin; has liver transplant - other (atrial fibrillation) Father - Thyroid Sister Hashimotos - Anxiety disorder Sister - other (atrial fibrillation) Paternal Grandmother - Heart disease Paternal Grandfather heart transplant - other (liver failure) Paternal Grandfather - Anxiety disorder Sister - other (atrial fibrillation) Paternal Uncle - other (atrial fibrillation) Paternal Aunt Social History Substance Use Topics - Smoking status: Former Smoker Packs/day: 0.50 Years: 10.00 Types: Cigarettes Quit date: 08/28/2014 - Smokeless tobacco: Never Used - Alcohol use Yes Comment: socially 1-2 per year Prior to Admission Medications Prescriptions Last Dose Informant Patient Reported? Taking? adalimumab (HUMIRA) 40 mg/0.8 mL injection 09/18/2018 at Unknown time Yes Yes Sig: Inject 40 mg subcutaneously every 2 weeks. levothyroxine (SYNTHROID) 100 mcg tablet 09/18/2018 at Unknown time No Yes Sig: Take one daily on empty stomach omeprazole (PRILOSEC) 20 mg capsule 09/18/2018 at Unknown time Yes Yes Sig: Take 40 mg by mouth once daily. Facility-Administered Medications: None Current hospital medications: LORazepam 1 mg injection (ATIVAN) 1 mg INTRAVENOUS q 15 MIN PRN levothyroxine 100 mcg tab(s) (SYNTHROID) 100 mcg ORAL DAILY (6 AM) NaCl 0.9% 3-5 mL 3-5 mL INTRAVENOUS q 12 H melatonin 3 mg tab(s) 3 mg ORAL DAILY (8 PM) perflutren lipid microspheres 1.1 mg/mL 1.3 mL injection (DEFINITY) 1.3 mL INTRAVENOUS DIRECTED PRN iv contrast (radiology procedure) INTRAVENOUS DIRECTED PRN pantoprazole DR 40 mg tab(s) (PROTONIX) 40 mg ORAL DAILY (6 AM) ALLERGIES Allergen Reactions - Hydrocodone-Acetami* Hives, GI Upset - Morphine Other: See Comments Abdominal pain - Penicillins Hives CARDIAC STATUS: Chest Pain: Denies Dyspnea: Negative Ankle Edema: Negative Arrhythmia: see HPI REVIEW OF SYSTEMS: The following systems were reviewed with the patient, and are unremarkable other than as described below. SYSTEMIC: No fever, chills, or change in weight or appetite PAIN ASSESSMENT: Negative for pain, history of chronic pain, or current treatment for a chronic pain condition. HEENT: No recent change in vision or hearing. RESPIRATORY: Negative for cough, hemoptysis, wheezing, COPD, dyspnea or shortness of breath CARDIOVASCULAR: See HPI GI: No recent nausea, vomiting or diarrhea. : No recent hematuria or dysuria. SKIN: No recent itching or eruption. PSYCH: Positive for anxiety: chronic HEMATOLOGY/ONCOLOGY: No recent diagnosis of bleeding or cancer. ENDOCRINE: No recent polyuria or heat intolerance. NEURO: No recent TIA, stroke or seizures. RHEUMATOLOGY: No recent active connective tissue disease. Objective PHYSICAL EXAM: Pleasant, comfortable, not in acute distress. Awake, alert, oriented times 3. Moves all extremities. SKIN: No rash or lumps. HEENT: Normocephalic, face symmetrical. EYES: EOMI NECK: No jugulovenous distention, Supple LUNGS: Clear to auscultation bilaterally. CARDIAC: Normal S1 and S2; no rubs, murmurs, or gallops ABDOMEN: Soft, nontender, bowel sounds present. Severe obesity EXTREMITIES: No edema. NEURO: Grossly normal cognition, motor function, and cranial nerves III-XII PULSES: Peripheral pulses present. Body mass index is 60.14 kg/m?. O2 Therapy: Room Air No Data Recorded Patient Vitals for the past 48 hrs: BP Temp Temp src Pulse Resp SpO2 Height Weight 09/19/18 0700 93/51 36.7 ?C (98.1 ?F) Oral 72 18 97 % - - 09/19/18 0335 (!) 94/33 37 ?C (98.6 ?F) Oral 63 18 97 % - - 09/18/18 2353 106/71 36.7 ?C (98.1 ?F) Oral 78 18 98 % - - 09/18/18 2022 123/73 36.6 ?C (97.9 ?F) Oral 64 20 97 % - - 09/18/18 1753 - - - - - - 167.6 cm (5' 6) (!) 169 kg (372 lb 9.2 oz) 09/18/18 1740 122/78 36.6 ?C (97.9 ?F) Oral 72 20 96 % - - DATA: Diagnostic tests reviewed for today's visit: Most recent labs and imaging results. Most recent EKG Most recent telemetry monitoring Outside chart from [facility] reviewed. Telemetry: sinus rhythm; PVCs, couplets; no VT Past 72 Hour Labs: Recent Labs 09/19/18 0500 WBC 9.68 RBC 4.88 HB 13.6 HCT 42.3 MCV 86.7 MCH 27.9 MCHC 32.2 PLT 205 MPV 11.1 GLUC 97 BUN 8 CREAT 0.76 NA 141 K 3.7 CHLOR 109* CO2 24 CA 8.5 MG 2.0 Last Lab Drawn: TSH 1.690 09/17/2018 Triglyceride 102 03/03/2008 HDL Cholesterol 39 03/03/2008 LDL Cholesterol 128 03/03/2008 Cholesterol, Total 187 03/03/2008 Prior Cardiac Workup: Last Cardiac Cath: 09/18/2018 Impression/Recommendations Active Problems: Wide-complex tachycardia (HCC) POA: Yes Assessment AND Plan: suspicious for VT but she does not have evidence by cardiac cath for structural heart disease; needs echocardiogram and cardiac MRI to evaluate more completely; I will review the [place] records and particularly the cardiac monitoring in more detail; differential includes VT vs SVT with aberrant conduction; she might need EP study Obesity, Class III, BMI >= 40 POA: Yes Assessment AND Plan: weight loss encouraged I had a detailed discussion with Ms. Cowart and multiple family members (parents, ) regarding my evaluation and recommendations. After our discussion, Ms. Cowart expressed her understanding and I answered all her questions to her apparent satisfaction. She agrees to proceed as outlined. SIGNATURE: Edith Murray MD PATIENT NAME: Emma Cowart DATE: September 19, 2018 TIME: 10:04 AM PAGER/CONTACT #: [phone] NURSING PROG Observed: 09/19/2018 Status: COMPLETED Source: [facility] 8:41 AM [facility] REPOSITORY HNO ID: [id number] Author: Lluvia (Rn) ANDRE Leon Service: (none) Author Type: Registered Nurse Type: Nursing Progress Note Filed: 09/19/2018 8:43 AM Note Text: Procedure for placement of intravenous catheter with use of ultrasound guidance and need for catheter explained to patient with verbal understanding given by patient. Following hospital protocol, a 20g 1.75inch catheter was placed using ultrasound guidance to left forearm without difficulty on the first attempt. Catheter with brisk blood return and flushes easily with 10cc normal saline. Catheter capped. Site dressing per hospital policy. Patient tolerated procedure well. HEMOGRAM Collected: 09/19/2018 Status: F Source: [facility] 5:00 AM HEALTH SYSTEM REPOSITORY TYPE CODE TESTS RESULT OUT OF REFERENCE UNITS RANGE LAB WBC(LOINC) 3.98-10.04 thou/cmm WBC 9.68 LAB RBC(LOINC) 3.93-5.22 mil/cmm RBC 4.88 LAB HGB(LOINC) 11.2-15.7 g/dL Hgb 13.6 LAB HCT(LOINC) 34.1-44.9 % Hct 42.3 LAB MCV(LOINC) 79.4-94.8 fl MCV 86.7 LAB MCH(LOINC) 25.6-32.2 pg MCH 27.9 LAB MCHC(LOINC) 31.6-34.8 % MCHC 32.2 LAB RDW(LOINC) 11.7-14.4 % RDW 14.2 LAB RDWSD(LOINC 36.4-46.3 fl ) RDW SD 44.6 LAB PLT(LOINC) 182-369 thou/cmm Platelet 205 LAB MPV(LOINC) 9.4-12.3 fl MPV 11.1 Performed By: #### CBC1 #### [place] [address] BASIC PANEL Collected: 09/19/2018 Status: F Source: [facility] 5:00 HEALTH SYSTEM REPOSITORY TYPE CODE TESTS RESULT OUT OF REFERENCE UNITS RANGE LAB NA(LOINC) 136-145 mEq/L Sodium Blood 141 LAB K(LOINC) 3.5-5.1 mEq/L Potassium Blood 3.7 LAB CL(LOINC) 98-107 mEq/L Chloride High Blood 109 LAB CO2(LOINC) 21-32 mEq/L CO2 Blood 24 LAB GLU(LOINC) 70-99 mg/dL Glucose Blood 97 LAB BUN(LOINC) 7-18 mg/dL BUN Blood 8 LAB CREA(LOINC 0.51-0.95 mg/dL ) Creatinine Blood 0.76 LAB CA(LOINC) 8.5-10.1 mg/dL Calcium Blood 8.5 LAB ANGAP(LOIN 8-16 C) Anion Gap 12 Performed By: #### P8 #### [place] [address] MAGNESIUM BLOOD Collected: 09/19/2018 Status: F Source: [facility] 5:00 HEALTH SYSTEM REPOSITORY TYPE CODE TESTS RESULT OUT OF REFERENCE UNITS RANGE LAB MAG(LOINC) 1.6-2.6 mg/dL Magnesium Blood 2.0 Performed By: #### MAG #### [place] [address] MDRD GFR Collected: 09/19/2018 Status: F Source: [facility] 5:00 AM HEALTH SYSTEM REPOSITORY TYPE CODE TESTS RESULT OUT OF RANGE REFERENCE UNITS LAB GFRFN(LOINC >60mL/min/1.73m ) 2 eGFR >60 Result Comment: If the patient is , multiply the result by 1.210. Performed By: #### GFR #### [facility] [address] [place], [place] [address] DISCHARGE SUMMARY Observed: 09/18/2018 Status: F Source: [facility] 2:[address] [facility] REPOSITORY [facility] Medical Records Department [address] [place] [address] Discharge Summary 09/18/18 1036 MR#: [id number] Acct: [id number] Name: EMMA COWART Rep #: [id number] : 1985 33 From: Johanny MCQUEEN PCP: Vargas Arzate Status: ADM IN Y Location: [place] [address] <Johanny Swanson - Last Filed: 09/18/18 10:54> Discharge Date and Diagnosis Date of Admission: 09/17/18 Date of Discharge: 09/18/18 - Primary Discharge Diagnosis Active and Suspected Problems 1. Wide-complex tachycardia 2. Hypothyroidism 3. GERD 4. Alpha-1 antitrypsin deficiency 5. Morbid obesity 6. BRISEYDA 7. Anxiety/depression 8. Ankylosing spondylitis - Secondary Discharge Diagnosis Chronic Problems Morbid obesity (Chronic) Hypothyroidism (Chronic) Ankylosing spondylitis (Chronic) GERD (gastroesophageal reflux disease) (Chronic) Cykxw-8-tbykdcnvhpf deficiency (Chronic) Hospital Course and Treatment Imaging Results: Diagnostic Data Chest X-Ray 09/17/18 18:31 IMPRESSION: No radiographic evidence of acute cardiopulmonary disease. Electronically Signed: Emily Quesada MD at 19:02 EST , Service support , Dr. Shipley- Cardiology Operations: None Procedures: Cardiac catheterization Summary of Care Provided: The patient is a 33 year old F admitted 09/17/2018 due to symptomatic tachycardia, ventricular tachycardia. She has a past medical history of hypothyroidism, GERD, alpha 1 antitrypsin deficiency following with rheumatology on Humira, GERD, anxiety, depression, BRISEYDA on CPAP, morbid obesity. Patient follows with Dr. Camacho [facility] cardiology. She was placed on Holter monitor recently and had noted episodes of tachycardia, symptomatic with palpitations, tunnel vision and lightheadedness. EKG on admission without ST-T changes. Troponin negative. Chest x-ray unremarkable. Patient underwent cardiac catheterization which demonstrated normal coronary arteries. Cardiology recommending transfer to [facility] for EP evaluation given wide complex tachycardia. Patient stable at time of transfer. General: Alert, Oriented x3, Cooperative, No apparent distress HEENT: Atraumatic, PERRLA, EOMI, Normocephalic Oral: Moist Mucosa Neck: Supple, No JVD, Negative Carotid Bruits Lungs: Clear to auscultation, Normal air movement Cardiovascular: Regular rate, Regular Rhythm, Normal S1, Normal S2, No murmurs Abdomen: Bowel Sounds Present, Soft, Non Tender, Non-Distended, obese Extremities: No edema Skin: No rashes, No breakdown Musculoskeletal: No Tenderness to Palpation of Joints or Extremities Lymphatic: No Cervical, Supraclavicular, or Inguinal Adenopathy Neurological: Cranial nerves II-XII grossly intact, Neuro grossly intact Psych/Mental Status: Normal Affect, Appropriate Patient seen and examined prior to discharge. Physical assessment as noted above. Patient is stable for discharge with follow up recommendations as noted above. This patient was seen by CHARISSE Lino under the supervision of Dr. Gonzalez. - Physical Exam Vital Signs Temp Pulse Resp BP Pulse Ox 98.9 F 63 18 111/63 97 09/18/18 09:40 09/18/18 09:40 09/18/18 09:40 09/18/18 09:40 09/18/18 09:40 Oxygen Delivery Method Room Air Weight: 374 lb 9.046 oz Body Mass Index (BMI) 60.4 Finger Stick Blood Glucose 105 Intake and Output for Last 24 Hours Intake Total 830 / 830 Balance 830 / 830 Laboratory Tests Past 24 Hrs WBC 14.3 H RBC 5.29 Hgb 14.9 Hct 45.8 MCV 86.6 MCH 28.2 MCHC 32.5 RDW 14.3 WBC RBC Hgb Hct MCV MCH MCHC RDW RDW Differential Plt Count MPV Immature Gran % (Auto) WBC RBC Hgb Hct MCV MCH MCHC RDW RDW Differential Plt Count MPV Immature Gran % (Auto) Home Medications: Medications to take at Discharge Levothyroxine [Synthroid] 100 mcg PO MOTUWETHFRSA 11/10/17 Adalimumab [Humira] 40 mg SQ UD 08/30/18 Ibuprofen 600 mg PO PRN PRN 09/17/18 Omeprazole [Prilosec] 20 mg PO DAILY 09/17/18 Primary Care Physician: Kateryna Carbajal,Out of [NON-STAFF] - Disposition: Acute care Hospital Minutes spent on discharge:: 35 Patient Condition:: Stable Medical Necessity - Tobacco Use Smoking Status: Former smoker Tobacco Use: Cigarettes Meaningful Use Info Meaningful Use Diagnoses (Choose all that apply): None applicable <Gloria Gonzalez - Last Filed: 09/18/18 14:23> Discharge Date and Diagnosis - Secondary Discharge Diagnosis Chronic Problems History of left heart catheterization (Chronic 09/18/18) Normal coronaries, EF 60% per cath done by Dr. Shipley @ [facility] Morbid obesity (Chronic) Hypothyroidism (Chronic) Ankylosing spondylitis (Chronic) GERD (gastroesophageal reflux disease) (Chronic) Iegkt-3-zvwdnwajfgs deficiency (Chronic) Hospital Course and Treatment Summary of Care Provided: Patient seen by Johanny MCQUEEN under my supervision Patient is a 33-year-old female with an extensive past medical history as listed. She was admitted with a complaint of periodic episodes of her heart racing. She had been having these episodes for several years and increasing frequency recently. She had an episode morning of admission and so went to see a iron erector Dr. Luevano. She had had a Holter monitor placed recently on which was noted episodes of wide-complex tachycardia lasting about 3 minutes. She was therefore told to come into the ED for evaluation. EKG showed no acute ST changes. She had cardiac catheterization which demonstrated normal coronaries. Patient remained stable and is being transferred to [facility] for electrophysiology evaluation of the wide complex tachycardia. Patient seen and examined prior to discharge. She complained of pain at site of cardiac cath. She denied any fever or chills, any cough or chest pain, any palpitations, any abdominal pain, any diarrhea vomiting. Review of systems otherwise negative. Labs and vitals reviewed. o/e: Vital Signs Height 5 ft 6 in Weight: 374 lb 9.046 oz Weight in Pounds 374.6 lbs Pulse Ox 98 General: Alert, Oriented x3, Cooperative, No apparent distress, morbidly obese HEENT: Atraumatic, PERRLA, EOMI, Normocephalic Oral: Moist Mucosa Neck: Supple, No JVD, Negative Carotid Bruits Lungs: Clear to auscultation, Normal air movement Cardiovascular: Regular rate, Regular Rhythm, Normal S1, Normal S2, No murmurs Abdomen: Bowel Sounds Present, Soft, Non Tender, Non-Distended, obese Extremities: No edema Skin: No rashes, No breakdown Musculoskeletal: No Tenderness to Palpation of Joints or Extremities Lymphatic: No Cervical, Supraclavicular, or Inguinal Adenopathy Neurological: Cranial nerves II-XII grossly intact, Neuro grossly intact Psych/Mental Status: Normal Affect, Appropriate Plan is for transfer to [facility] for EP evaluation. of Johanny Swanson NP C's note which I have reviewed and agree with. - Physical Exam Vital Signs Temp Pulse Resp BP Pulse Ox 98.6 F 60 17 129/67 H 98 09/18/18 12:26 09/18/18 12:26 09/18/18 12:26 09/18/18 12:26 09/18/18 12:26 Oxygen Delivery Method Room Air Weight: 374 lb 9.046 oz Body Mass Index (BMI) 60.4 Finger Stick Blood Glucose 105 Intake and Output for Last 24 Hours Intake Total 1909 Balance 1909 Laboratory Tests Past 24 Hrs WBC 14.3 H RBC 5.29 Hgb 14.9 Hct 45.8 MCV 86.6 MCH 28.2 MCHC 32.5 RDW 14.3 WBC RBC Hgb Hct MCV MCH MCHC RDW RDW Differential Plt Count MPV Immature Gran % (Auto) WBC RBC Hgb Hct MCV MCH MCHC RDW RDW Differential Plt Count MPV Immature Gran % (Auto) Code Visit Inpatient E AND M: [id number] Disch Hosp 09/18/18 1054 <Electronically signed by Johanny AKBARC> Date Johanny AKBARC 09/18/18 1423<Electronically signed by Gloria Gonzalez MD> Cosigner Signature (if applicable): Date Gloria Gonzalez MD CC: CHARISSE Swanson; Vargas Arzate; Joshua Camacho MD; Gloria Gonzalez MD Signed CONSULTATION Observed: 09/18/2018 Status: F Source: [facility] 8:[address] [facility] REPOSITORY [facility] Medical Records Department [address] [place] [address] Consultation 09/18/18 0806 MR#: [id number] Acct: [id number] Name: EMMA COWART Rep #: [id number] : 1985 33 From: Rafael Shipley MD PCP: Vargas Arzate Status: ADM IN Y Location: [place] [address] Reason for Consult History of Present Illness: The patient is a 33 year old F [] Past Medical History Allergies/Adverse Reactions: Allergies Penicillins Allergy (Verified 09/17/18 17:55) Hives hydrocodone bitartrate [From Vicodin] Adverse Reaction (Verified 09/18/18 00:14) Other Pain in stomach, n/v morphine Adverse Reaction (Verified 09/17/18 17:55) Nausea Home Medications: Ambulatory Orders Medication Instructions Recorded Past Medical History (Chronic Problems): Chronic Problems Morbid obesity (Chronic) Hypothyroidism (Chronic) Ankylosing spondylitis (Chronic) GERD (gastroesophageal reflux disease) (Chronic) Jqwkg-0-cmcvcwtuxty deficiency (Chronic) Surgical History: - - Cholecystectomy, x 1, T+A. Psychiatric History: Anxiety, Depression CHIEF DIETITIAN History: No pertinent CHIEF DIETITIAN history - *Family History Maternal History Items: - - Patient mother is healthy with only home medications reflux medication and regimen for anxiety and depression otherwise denies any history of diabetes, heart disease, cancer. Paternal History Items: - - Patient father with history of heart disease, status post NH with PCI x2 in 2016. Lives: Spouse/ Significant Other - Patient was with her and son. Smoking Status: Former smoker Tobacco Use: Cigarettes Alcohol: None Drugs: None Objective: Vital Signs Temp Pulse Resp BP Pulse Ox 98.1 F 82 18 126/80 H 96 09/18/18 06:32 09/18/18 06:54 09/18/18 06:32 09/18/18 06:32 09/18/18 08:03 Oxygen Delivery Method Room Air Weight: 374 lb 9.046 oz Body Mass Index (BMI) 60.4 Finger Stick Blood Glucose 105 Intake and Output for Last 24 Hours Intake Total 830 / 830 Balance 830 / 830 09/17/18 18:25: WBC 14.3 H, RBC 5.29, Hgb 14.9, Hct 45.8, MCV 86.6, MCH 28.2, MCHC 32.5, RDW 14.3, RDW Differential 44.9 H, Plt Count 212, MPV 11.8, Immature Gran % (Auto) 0.200, Neut % (Auto) 61.5, Lymph % (Auto) 29.5, Steele % (Auto) 7.5, Eos % (Auto) 1.2, Baso % (Auto) 0.1, Absolute Neuts (auto) 8.8 H, Total Counted Not Reportable 09/17/18 18:25: PT 13.0, INR 1.0, APTT 27.2 09/17/18 18:25: Sodium 139, Potassium 3.6, Chloride 105, Carbon Dioxide 26.0, Anion Gap 8, BUN 9, Creatinine 0.79, Est GFR (MDRD) Af Amer 107, Est GFR (MDRD) Non-Af 88, BUN/Creatinine Ratio 11.4, Glucose 108 H, Calcium 8.9, Magnesium 1.8, Troponin I < 0.015 09/17/18 18:25: Hemoglobin A1c 5.7 09/17/18 21:53: Troponin I < 0.015 09/18/18 00:20: Urine Color Yellow, Urine Clarity Clear, Urine pH 7.0, Ur Specific [place] 1.010, Urine Protein Negative, Urine Glucose (UA) Normal, Urine Ketones Negative, Urine Occult Blood Negative, Urine Nitrite Negative, Urine Bilirubin Negative, Urine Urobilinogen Normal, Ur Leukocyte Esterase Negative, Urine RBC 0 SEEN, Urine WBC 0 SEEN 09/18/18 00:28: Troponin I < 0.015 09/18/18 05:00: WBC 9.9, RBC 4.74, Hgb 13.5, Hct 40.8, MCV 86.1, MCH 28.5, MCHC 33.1, RDW 14.4, RDW Differential 44.5 H, Plt Count 223, MPV 11.3, Immature Gran % (Auto) 0.200, Neut % (Auto) 52.3, Lymph % (Auto) 35.7, Steele % (Auto) 9.9, Eos % (Auto) 1.7, Baso % (Auto) 0.2, Absolute Neuts (auto) 5.2, Total Counted Not Reportable 09/18/18 05:00: Sodium 143, Potassium 4.1, Chloride 110 H, Carbon Dioxide 27.0, Anion Gap 6, BUN 9, Creatinine 0.73, Est GFR (MDRD) Af Amer 116, Est GFR (MDRD) Non-Af 96, BUN/Creatinine Ratio 12.3, Glucose 95, Calcium 8.5, Triglycerides 65, Cholesterol 157, LDL Cholesterol 98, VLDL Cholesterol 13, HDL Cholesterol 46 09/18/18 05:00: PT 13.3, INR 1.0, APTT 27.2 Rhythm: EKG: ECHO: Stress Test: Cardiac Cath: PCI: CT Surgery: Holter monitor: EPS: PPM: CXR: Chest CT Scan: Assessment/Plan 1. Palpitations with wide complex tachycardia * The etiology of the above is unclear at this particular time. I have not personally reviewed the telemetry strips but after discussion with the primary iron erector who has reviewed the above he recommends a cardiac catheterization. The risk benefits alternatives have been explained to the patient who understands and agrees to proceed. Depending on the findings further recommendations will be made. * * * Addendum: * Patient underwent cardiac catheterization this morning which demonstrated normal coronary arteries and preserved left ventricular systolic function. Will discuss with primary iron erector about EP referral. * Thank you for allowing me to participate in the care of your patient. Please don't hesitate to call if any issues arise 09/18/18 0807 <Electronically signed by Rafael Shipley MD> Date Rafael Shipley MD Cosigner Signature (if applicable): Date CC: Vargas Arzate; Lorena Nettles; Rafael Shipley MD Signed CBC W/DIFF, AUTOMATED Collected: 09/18/2018 Status: F Source: MAMMOTH 5:[address] [facility] REPOSITORY TYPE CODE TESTS RESULT OUT OF RANGE REFERENCE UNITS LAB L100.1000 4.4-11.0 K/mm3 Normal WBC 9.9 LAB L100.1200 4.2-5.4 M/mm3 Normal RBC 4.74 LAB L100.1300 12.0-15.0 g/dl Normal HGB 13.5 LAB L100.1400 37-47 % Normal HCT 40.8 LAB L100.1500 81-99 fL Normal MCV 86.1 LAB L100.1600 27.0-32.0 pg Normal MCH 28.5 LAB L100.1700 32-36 g/gl Normal MCHC 33.1 LAB L100.1810 11.6-14.6 % Normal RDW CV 14.4 LAB L100.1820 35.1-43.9 fl High RDW SD 44.5 LAB L100.1900 150-450 K/mm3 Normal PLT 223 LAB L100.2000 6.2-12.0 fl Normal MPV 11.3 LAB L100.2100 47-70 % Normal NEUT% 52.3 LAB L100.2200 19-41 % Normal LY% 35.7 LAB L100.2300 0-10 % Normal MONO% 9.9 LAB L100.2400 0-5 % Normal EO% 1.7 LAB L100.2500 0-1 % Normal BASO% 0.2 LAB L100.2550 0.0-0.9 % Normal IM GRAN % 0.200 Result Comment: IG% - Immature Granulocytes (promyelocytes, myelocytes and metamyelocytes) > 1% indicates that a LEFT SHIFT is Present. LAB L100.2620 2.0-7.7 X10 3/uL Normal Absolute Neut 5.2 LAB L100.2720 0.83-4.51 X10 3/ul Normal Absolute Lymph 3.54 Performed By: #### L100.0100 #### [facility] [address] [place], [place], [id number] PROTHROMBIN TIME W/INR Collected: 09/18/2018 Status: F Source: T[place]AS[place] 5:[address] [facility] REPOSITORY TYPE CODE TESTS RESULT OUT OF RANGE REFERENCE UNITS LAB L300.4150 11.7-14.9 SECONDS Normal PROTIME 13.3 LAB L300.4200 Normal INR 1.0 Performed By: #### L300.3900, L300.4310 #### [facility] [address] [place], [address] PARTIAL THROMBOPLAST Collected: 09/18/2018 Status: F Source: [place] TIME 5:[address] [facility] REPOSITORY TYPE CODE TESTS RESULT OUT OF RANGE REFERENCE UNITS LAB L300.4310 24.1-36.2 Seconds Normal PTT 27.2 Performed By: #### L300.3900, L300.4310 #### [facility] [address] [place], [address] BASIC METABOLIC Collected: 09/18/2018 Status: F Source: [place] PROFILE (BMP) 5:[address] [facility] REPOSITORY TYPE CODE TESTS RESULT OUT OF RANGE REFERENCE UNITS LAB L501.0100 74-106 mg/dL Normal GLU 95 Result Comment: Please note revised GLUCOSE reference range effective 2017. LAB L501.1000 7-18 mg/dL Normal BUN 9 LAB L501.1100 0.55-1.02 mg/dL Normal CREAT,SERUM 0.73 Result Comment: The validity of the calculated GFR AND GFRAA in patients over 70 years has not been determined. Clinical correlation is essential. LAB L501.1110 >60 mL/min Normal EST GFR 96 Result Comment: Non- GFR Calc LAB L501.1115 >60 mL/min Normal EST GFR - AA 116 Result Comment: GFR Calc LAB L501.1255 ml/min Normal Estimated CRCL 100.69 LAB L501.1300 10-20 RATIO BUN/CRE Normal 12.3 LAB L501.2200 8.5-10 mg/dL .1 CA Normal 8.5 LAB L501.5300 136-14 mmol/L 5 NA Normal 143 LAB L501.5600 3.5-5. mmol/L 1 K Normal 4.1 LAB L501.5900 98-107 mmol/L High CL 110 LAB L501.6100 21.0-3 mmol/L 2.0 CO2 Normal 27.0 LAB L501.6200 5-15 GAP Normal 6 Performed By: #### L500.2500, L500.4100 #### [facility] [address] [place], [place], [address] LIPID PROFILE Collected: 09/18/2018 Status: F Source: MAMMOTH 5:[address] [facility] REPOSITORY TYPE CODE TESTS RESULT OUT OF RANGE REFERENCE UNITS LAB L501.4900 200 mg/dL Normal CHOL 157 Result Comment: <200 mg/dL Desirable 200-240 mg/dL Borderline >240 mg/dL High Risk LAB L501.5000 mg/dL Normal TRIG 65 Result Comment: The drugs N-Acetylcysteine and Metamizole may falsely depress this assay. Serum Triglycerides Reference Interval Normal <150 mg/dL Borderline high 150 - 199 mg/dL High 200 - 499 mg/dL Very High > or = 500 mg/dL LAB L501.6400 mg/dL Normal HDL 46 Result Comment: The drugs N-Acetylcysteine and Metamizole may falsely depress this assay. Reference Range HDL <40 mg/dL Low HDL Cholesterol HDL >or= 60 mg/dL High HDL Cholesterol LAB L501.6500 0-130 mg/dL Normal LDL 98 LAB L501.6600 5-40 mg/dL Normal VLDL 13 Performed By: #### L500.2500, L500.4100 #### [facility] [address] [facility] [place], [place], [address] TROPONIN-I Collected: 09/18/2018 Status: F Source: [place] 12:[address] [facility] REPOSITORY Order Comment: 'TROP' Serial specimen #1, #2 or #3: 3 TYPE CODE TESTS RESULT OUT OF RANGE REFERENCE UNITS LAB L501.4010 <0.045 ng/mL Normal < 0.015 TROPONIN-I Result Comment: TROPONIN-I EXPECTED VALUES <0.045 Negative 0.045 - 0.590 Consistent with Cardiac Damage > OR = 0.600 Critical Value Not every elevated troponin is indicative of NH. These values should be used with clinical judgement in examining the patient's clinical picture for diagnosis. To establish a diagnosis of NH versus myocardial injury, there must be a demonstrated rise and/or fall in the troponin values, in addition to ischemic symptoms, EKG changes, new regional wall motion abnormality, and/or angiographical evidence. PLEASE NOTE: REFERENCE RANGES EDITED 18 Performed By: #### L501.4010 #### [facility] [address] [place], [place], [address] URINALYSIS, COMPLETE Collected: 09/18/2018 Status: F Source: MAMMOTH 12:[address] [facility] REPOSITORY Order Comment: How was Urine Obtained? CLINICAL TRIALS SPECIALIST TO SPECIFY TYPE CODE TESTS RESULT OUT OF RANGE REFERENCE UNITS LAB L400.3000 Yellow COLOR Normal Yellow LAB L400.3050 Clear Normal CLARITY Clear LAB L400.3200 Normal mg/dl Normal GLUCOSE, UR Normal LAB L400.3300 Negative mg/dL Normal BILIRUBIN URINE Negative LAB L400.3400 Negative mg/dl Normal KETONE UR Negative LAB L400.3465 1.002-1.030 Normal SP.GR. DIPSTX 1.010 LAB L400.3550 5.0 - 8.0 pH UR Normal 7.0 LAB L400.3600 Negative mg/dl PROT Normal DIPSTX Negative LAB L400.3700 Normal mg/dl Normal UROBILI Normal LAB L400.3750 Negative Normal NITRITE UR Negative LAB L400.3780 Negative /ul Normal OCCULT BLOOD-UR Negative LAB L400.3800 Negative /ul LEUK Normal ESTERASE Negative LAB L400.4050 0-5 /hpf WBC 0 Normal SEEN LAB L400.4100 0-5 /hpf 0 Normal RBC-UA SEEN LAB L400.4150 5-10 /hpf SQUAM Normal EPI 0-5 SEEN LAB L400.4300 None Seen /hpf Normal BACTERIA RARE LAB L400.4350 <or=2+ /hpf 0 Normal MUCUS, URINE SEEN Performed By: #### L400.0001 #### [facility] [address] [place], [address] TROPONIN-I Collected: 09/17/2018 Status: F Source: MAMMOTH 9:[address] [facility] REPOSITORY Order Comment: 'TROP' Serial specimen #1, #2 or #3: 2 TYPE CODE TESTS RESULT OUT OF RANGE REFERENCE UNITS LAB L501.4010 <0.045 ng/mL Normal < 0.015 TROPONIN-I Result Comment: TROPONIN-I EXPECTED VALUES <0.045 Negative 0.045 - 0.590 Consistent with Cardiac Damage > OR = 0.600 Critical Value Not every elevated troponin is indicative of NH. These values should be used with clinical judgement in examining the patient's clinical picture for diagnosis. To establish a diagnosis of NH versus myocardial injury, there must be a demonstrated rise and/or fall in the troponin values, in addition to ischemic symptoms, EKG changes, new regional wall motion abnormality, and/or angiographical evidence. PLEASE NOTE: REFERENCE RANGES EDITED 18 Performed By: #### L501.4010 #### [facility] [address] [facility] [place], [address] EMERGENCY DEPARTMENT Observed: 09/17/2018 Status: F Source: MAMMOTH SUMMARY 9:[address] [facility] REPOSITORY [facility] Medical Records Department [address] [facility] [place] [address] Emergency Department Summary 09/17/18 1827 MR#: [id number] Acct: [id number] Name: EMMA COWART Jorge A Rep #: [id number] : 1985 33 From: Kayleigh Thorpe MD PCP: Vargas Arzate Status: ADM IN - ER Visit Summary Date of Service: 09/17/18 Chief Complaint: Heart racing History of Present Illness: The patient is a 33 F who presents for episodes of her heart racing, resulting in tunnel vision and out of body experiences. Patient states she has been having these episodes for several years, with the increase in occurrence over the last year. She had an episode occurred this morning and so went to see Dr. Lama. A Holter monitor was placed, and patient had another episode this afternoon, at which time a wide-complex tachycardia lasting 3 minutes was noted on the Holter monitor. Patient was told to come in for further evaluation. Patient has history of Konrad's thyroiditis, ankylosing spondylitis, and alpha 1 antitrypsin disorder. She is status post cholecystectomy. She denies alcohol or tobacco use. She denies any changes in her thyroid medications recently. She currently denies any fever, vision changes, chest pain, shortness of breath, abdominal pain, nausea or vomiting, or any other complaints at this time. She stated she did have some chest discomfort and left neck discomfort when she was having the episode. Physical Examination: Vital signs: afebrile, hemodynamically stable, no hypoxia on room air General: well nourished, well developed, in no distress Skin: warm, dry, no rash, no pallor HEENT: normocephalic and atraumatic; PERRL, EOMI, moist mucous membranes Cardiovascular: regular rate and rhythm without murmurs, no peripheral edema, 2+ pulses all distal extremities Respiratory: No increased work of breathing, lungs are clear to auscultation bilaterally, no rales, rhonchi or wheezing Abdominal: Abdomen is soft, nontender with normoactive bowel sounds, no guarding or rebound, no masses MSK: Moves all extremities, no deformities, normal strength Neuro: Awake and alert, oriented 4. No facial droop, sensation and motor function intact and symmetric Test Results: Abnormal Lab Results WBC 14.3 H RBC 5.29 Hgb 14.9 WBC RBC Hgb Hct MCV MCH MCHC RDW RDW Differential Plt Count MPV Immature Gran % (Auto) Neut % (Auto) Lymph % (Auto) Steele % (Auto) Clinical Impression(s) from Imaging Studies Chest X-Ray 09/17/18 18:31 IMPRESSION: No radiographic evidence of acute cardiopulmonary disease. Electronically Signed: Emily Quesada MD at 19:02 EST , Service support , Emergency Department Course and Treatment: EKG was performed that showed a sinus rhythm with no ischemic changes, no ectopy, no delta waves, and no underlying proarrhythmic morphology. Labs were performed and were remarkable only for leukocytosis of 14.3. No electrolyte derangements. Troponin negative. negative. TSH within normal limits. Chest x-ray showed no acute process. Patient was discussed with Dr. Shipley, who will evaluate the patient in the morning and likely perform a cardiac catheterization. He is going to talk to Dr. Lama regarding the plan. Patient was discussed with the hospitalist Dr. Nettles and admitted for further evaluation and management of her symptomatic paroxysmal tachycardia. Treatment Plan: [] Disposition: [] Impression: Symptomatic paroxysmal tachycardia This note was generated with Trilliantation software. It may contain incorrect words, spelling, and punctuation that were not noted in review of the chart prior to signing ED Disposition - Plan for ED Patient: Chief Complaint: Palpitations What to do if you have Problems For any increased pain, shortness of breath, bleeding, nausea or vomiting, chest pain, or any unexpected problems, contact your Primary Care Provider. Call [facility] ([phone]) or report to the closest Emergency Room. Call 911 if necessary. 09/17/182111 <Electronically signed by Kayleigh Thorpe MD> Date Kayleigh Thorpe MD Cosigner Signature (If Indicated): Date CC: Vargas Arzate HISTORY AND PHYSICAL Observed: 09/17/2018 Status: F Source: MAMMOTH EXAM 9:[address] [facility] REPOSITORY [facility] Medical Records Department [address] [place] [address] History and Physical 09/17/182012 MR#: [id number] Acct: [id number] Name: EMMA COWART Jorge A Rep #: [id number] : 1985 33 From: Lorena Nettles PCP: Vargas Arzate Status: ADM IN Location: [place] [address] 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 Qualified Code(s): E03.8 - Other specified hypothyroidism; E06.3 - Autoimmune thyroiditis (4) Ankylosing spondylitis Status: Chronic Qualifiers: Ankylosing spondylitis location: unspecified site of spine Qualified Code(s): M45.9 - Ankylosing spondylitis of unspecified sites in spine (5) GERD (gastroesophageal reflux disease) Status: Chronic Qualifiers: Esophagitis presence: esophagitis presence not specified Qualified Code(s): K21.9 - Gastro-esophageal reflux disease without esophagitis (6) [id number] deficiency Status: Chronic History of Present Illness Date of Admission: 09/17/18 Chief Complaint: Symptomatic tachycardia, Ventricular tachycardia The patient is a 33 y/o F w/ PMHx: Konrad's now Hypothyroid, BRISEYDA on CPAP with decreased compliance, Morbid Obesity, Anxiety and Depression, Ankylosing spondylitis following w/ Rheumatology on Humira, GERD, Chronic LFT elevations w/ Bx w/ Dx alpha-1 antitrypsin deficiency history of palpitations/? SVT referred to the [facility] ED on 09/17/18 per her Hl7 Developer, Dr. Camacho w/ recent HM evaluation initiated 09/17/18 earlier in the day secondary to evaluation in the office with noted episodes of tachycardia, racing heart, palpitations, lightheadedness, tunnel vision w/ left sided chest pressure/tightness without radiation with associated mild dyspnea, diaphoresis with recurrent episode following placement of HM with HR noted to be up to nearly 200 at 4:13-4:16 pm with Hl7 Developer request to present to the ED for evaluation. Patient notes that this year she has been more invested in her health and has been dieting and exercising with note that more episodes have been occurring since these interventions. Dr. Shipley and Dr. Camacho aware of patient presentation and currently noted plan for cardiac catheterization in AM. Work-up in the ED included T 97.2, heart rate 108, BP 155/92, respiratory rate 18, 97% on room air, CBC with W BC 14.3, hemoglobin 14.9, platelet 212 with left shift, unremarkable coags, BMP unremarkable aside glucose 108, magnesium 1.8, TSH 1.85, troponin <0.015, CXR with no acute cardiopulmonary process, EKG w/ SR without any evidence of ischemia. Past Medical History Past Medical History (Chronic Problems): Chronic Problems Morbid obesity (Chronic) Hypothyroidism (Chronic) Ankylosing spondylitis (Chronic) GERD (gastroesophageal reflux disease) (Chronic) Arxhq-3-bwudhrcyncm deficiency (Chronic) Allergies Penicillins Allergy (Verified 09/17/18 17:55) Hives hydrocodone bitartrate [From Vicodin] Adverse Reaction (Verified 09/17/18 17:55) Nausea morphine Adverse Reaction (Verified 09/17/18 17:55) Nausea Home Medications: Ambulatory Orders Medication Instructions Recorded Surgical History: - - Cholecystectomy, x 1, T+A. Psychiatric History: Anxiety, Depression CHIEF DIETITIAN History: No pertinent CHIEF DIETITIAN history Lives: Spouse/ Significant Other - Patient was with her and son. Smoking Status: Former smoker - Patient quit cigarette tobacco usage approximately 3 months prior with history of intermittent less than 1/2 pack/day cigarette usage on and off times 12 years. Tobacco Use: Cigarettes Alcohol: None Drugs: None - *Family History Maternal History Items: - - Patient mother is healthy with only home medications reflux medication and regimen for anxiety and depression otherwise denies any history of diabetes, heart disease, cancer. Paternal History Items: - - Patient father with history of heart disease, status post NH with PCI x2 in 2016. Review of Systems Constitutional: Denies: Chills, Fever, Weight Change HEENT: Reports: - - Tunnel vision.. Denies: Head Aches, Sinus Congestion, Sinus Drainage Cardiovascular: Reports: Chest Pressure, Chest Tightness, Heaviness, Light Headedness, Palpitations. Denies: Chest Pain Respiratory: Reports: Shortness of Breath. Denies: Cough, Shortness of breath at rest, Sputum production Gastrointestinal: Denies: Abdominal Pain, Nausea, Vomiting Genitourinary: Denies: Dysuria Musculoskeletal: Reports: Back Pain, Joint Pain. Denies: Joint Tenderness Skin: Denies: Rash, Wounds Neurological: Denies: Numbness, Tingling, Focal weakness Psychiatric: Denies: Anxiety, Depression, Homicidal Ideations, Suicidal Ideations Hematologic/ Lymphatic: Denies: Easy Bruising, Easy Bleeding VTE Information - Inpt Only VTE Present on Admission: No VTE Mechan Device Prophylaxis: SCD's VTE Pharm Prophylaxis ordered?: No Reason prophylaxis not ordered:: Medical Contraindication - Holding for AM cath Patient Problems: Active and Suspected Problems Ventricular tachycardia (Acute) Subjective: Seated upright in the ED bed, currently denies any chest discomfort or recurrent symptoms since last at 4:13 pm. Objective: Physical Examination: General: awake, alert, oriented x 3 and cooperative, seated upright in the ED bed in no apparent distress did become tearful and notes she is anxious about undergoing cardiac catheterization. Skin: normal color, turgor, no icterus, cyanosis. HEENT: AT/NC, EOMI, PERRLA, mildly dry MM, no carotid bruits or JVD noted; ever, thickened neck makes examination difficult. Lungs: Breath sounds bilateral bases, moderate effort, no rales, ronchi or wheezing. Heart: Regular rate and rhythm; no gallop, rub audible. Abdomen: soft, overly obese NTTP, ND, normal BS, no HSM; however habitus makes examination difficult. Extremities: no cyanosis, clubbing, or edema. Neurological: patient awake, alert, oriented x 3; cognitive function intact; pupils equally reactive to light and accomodation; cranial nerves II-XII grossly normal, moving all 4 extremities, no focal deficits, strength mildly globally decreased. Psychiatric: affect appears she is, was tearful with discussions of cardiac catheterization, no acute evidence of depressive feelings. - Physical Exam Vital Signs Temp Pulse Resp BP Pulse Ox 97.2 F L 84 24 H 126/78 H 96 09/17/18 17:55 09/17/18 20:09 09/17/18 20:09 09/17/18 20:09 09/17/18 20:09 Oxygen Delivery Method Room Air Weight: 380 lb 11.813 oz Body Mass Index (BMI) 61.4 Finger Stick Blood Glucose 105 Laboratory Tests Past 24 Hrs WBC 14.3 H RBC 5.29 Hgb 14.9 WBC RBC Hgb Hct MCV MCH MCHC RDW RDW Differential Plt Count MPV Immature Gran % (Auto) Neut % (Auto) Lymph % (Auto) Steele % (Auto) Assessment/Plan All Active Problems Ventricular tachycardia (Acute) The patient is a 33 y/o F w/ PMHx: Konrad's now Hypothyroid, BRISEYDA on CPAP with decreased compliance, Morbid Obesity, Anxiety and Depression, Ankylosing spondylitis following w/ Rheumatology on Humira, GERD, Chronic LFT elevations w/ Bx w/ Dx alpha-1 antitrypsin deficiency history of palpitations/? SVT referred to the [facility] ED on 09/17/18 per her Hl7 Developer, Dr. Camacho w/ recent HM evaluation initiated 09/17/18 earlier in the day secondary to evaluation in the office with noted episodes of tachycardia, racing heart, palpitations, lightheadedness, tunnel vision w/ left sided chest pressure/tightness without radiation with associated mild dyspnea, diaphoresis with recurrent episode following placement of HM with HR noted to be up to nearly 200 at 4:13-4:16 pm. (1) Arrhythmia, VT, symptomatic: Work-up in the ED included T 97.2, heart rate 108, BP 155/92, respiratory rate 18, 97% on room air, CBC with W BC 14.3, hemoglobin 14.9, platelet 212 with left shift, unremarkable coags, BMP unremarkable aside glucose 108, magnesium 1.8, TSH 1.85, troponin <0.015, CXR with no acute cardiopulmonary process, EKG w/ SR without any evidence of ischemia. Holter monitoring evaluation per cardiology office with notable arrhythmia with referral to the ED as noted. Will admit to PCU, place on a monitored bed to assure no acute myocardial infarction with serial cardiac enzymes and EKGs. ASA, NG, morphine. Mag 1.8, TSH normal. FLP in AM. If recurrent event would attempt vagal maneuvers and likely adenosine. Will defer addition of calcium channel wlado versus beta-waldo at this time pending discussions with cardiology. (2) Alpha-1 antitrypsin deficiency w/ Chronically Elevated LFTs: Following with [facility], unclear if baseline PFTs have been obtained, encouraged continued tobacco cessation. (3) Ankylosing spondylitis: Following w/ Rheumatology, maintained on Humira regimen. (4) Hypothyroidism: Continue home synthroid regimen, TSH level upon ED presentation. Prior history of Konrad. (5) Morbid Obesity: Weight loss and lifestyle changes encouraged, nutrition consulted. (6) BRISEYDA: CPAP q HS, notes poor compliance, states she needs to make another appointment to have reassessment. (7) Anxiety and depression: Not on regimen, currently attempting several lifestyle changes, encourage follow-up with primary care physician. (8) GERD: PPI. (9) DVT Prophylaxis: SCDs, defer chemoprophylaxis for planned a.m. intervention. Code Visit Inpatient E AND M: [id number] Init Hosp L3 09/17/182101 <Electronically signed by Lorena Nettles > Date Lorena Nettles Cosigner Signature: Date (if applicable) CC: Vargas Arzate; Lorena Archer White Signed CBC W/DIFF, AUTOMATED Collected: 09/17/2018 Status: F Source: MAMMOTH 6:[address] [facility] REPOSITORY TYPE CODE TESTS RESULT OUT OF RANGE REFERENCE UNITS LAB L100.1000 4.4-11.0 K/mm3 High WBC 14.3 LAB L100.1200 4.2-5.4 M/mm3 Normal RBC 5.29 LAB L100.1300 12.0-15.0 g/dl Normal HGB 14.9 LAB L100.1400 37-47 % Normal HCT 45.8 LAB L100.1500 81-99 fL Normal MCV 86.6 LAB L100.1600 27.0-32.0 pg Normal MCH 28.2 LAB L100.1700 32-36 g/gl Normal MCHC 32.5 LAB L100.1810 11.6-14.6 % Normal RDW CV 14.3 LAB L100.1820 35.1-43.9 fl High RDW SD 44.9 LAB L100.1900 150-450 K/mm3 Normal PLT 212 LAB L100.2000 6.2-12.0 fl Normal MPV 11.8 LAB L100.2100 47-70 % Normal NEUT% 61.5 LAB L100.2200 19-41 % Normal LY% 29.5 LAB L100.2300 0-10 % Normal MONO% 7.5 LAB L100.2400 0-5 % Normal EO% 1.2 LAB L100.2500 0-1 % Normal BASO% 0.1 LAB L100.2550 0.0-0.9 % Normal IM GRAN % 0.200 Result Comment: IG% - Immature Granulocytes (promyelocytes, myelocytes and metamyelocytes) > 1% indicates that a LEFT SHIFT is Present. LAB L100.2620 2.0-7.7 X10 3/uL High Absolute Neut 8.8 LAB L100.2720 0.83-4.51 X10 3/ul Normal Absolute Lymph 4.23 Performed By: #### L100.0100 #### [facility] [place], [address] PROTHROMBIN TIME W/INR Collected: 09/17/2018 Status: F Source: TOMASA 6:[address] [facility] REPOSITORY TYPE CODE TESTS RESULT OUT OF RANGE REFERENCE UNITS LAB L300.4150 11.7-14.9 SECONDS Normal PROTIME 13.0 LAB L300.4200 Normal INR 1.0 Performed By: #### L300.3900, L300.4310 #### [facility] [address] [place], [place], [address] PARTIAL THROMBOPLAST Collected: 09/17/2018 Status: F Source: [place]AS[place] TIME 6:[address] [facility] REPOSITORY TYPE CODE TESTS RESULT OUT OF RANGE REFERENCE UNITS LAB L300.4310 24.1-36.2 Seconds Normal PTT 27.2 Performed By: #### L300.3900, L300.4310 #### [facility] [address] [place], [address] BASIC METABOLIC Collected: 09/17/2018 Status: F Source: [place] PROFILE (BMP) 6:[address] [facility] REPOSITORY TYPE CODE TESTS RESULT OUT OF RANGE REFERENCE UNITS LAB L501.0100 74-106 mg/dL High GLU 108 Result Comment: Fasting Glucose result from 100 to 125 mg/dL suggests IMPAIRED HOMEOSTASIS per A.D.A. criteria. Please note revised GLUCOSE reference range effective 2017. LAB L501.1000 7-18 mg/dL Normal BUN 9 LAB L501.1100 0.55-1.02 mg/dL Normal CREAT,SERUM 0.79 Result Comment: The validity of the calculated GFR AND GFRAA in patients over 70 years has not been determined. Clinical correlation is essential. LAB L501.1110 >60 mL/min Normal EST GFR 88 Result Comment: Non- GFR Calc LAB L501.1115 >60 mL/min Normal EST GFR - AA 107 Result Comment: GFR Calc LAB L501.1255 ml/min Normal Estimated CRCL 93.05 LAB L501.1300 10-20 RATIO Normal BUN/CRE 11.4 LAB L501.2200 8.5-10 mg/dL Normal .1 CA 8.9 LAB L501.5300 136-14 mmol/L Normal 5 NA 139 LAB L501.5600 3.5-5. mmol/L Normal 1 K 3.6 LAB L501.5900 98-107 mmol/L Normal CL 105 LAB L501.6100 21.0-3 mmol/L Normal 2.0 CO2 26.0 LAB L501.6200 5-15 Normal GAP 8 Performed By: #### L500.2500, L501.4010, L501.5200, L501.9520 #### [facility] [address] [place], [address] TROPONIN-I Collected: 09/17/2018 Status: F Source: MAMMOTH 6:[address] [facility] REPOSITORY TYPE CODE TESTS RESULT OUT OF RANGE REFERENCE UNITS LAB L501.4010 <0.045 ng/mL Normal < 0.015 TROPONIN-I Result Comment: TROPONIN-I EXPECTED VALUES <0.045 Negative 0.045 - 0.590 Consistent with Cardiac Damage > OR = 0.600 Critical Value Not every elevated troponin is indicative of NH. These values should be used with clinical judgement in examining the patient's clinical picture for diagnosis. To establish a diagnosis of NH versus myocardial injury, there must be a demonstrated rise and/or fall in the troponin values, in addition to ischemic symptoms, EKG changes, new regional wall motion abnormality, and/or angiographical evidence. PLEASE NOTE: REFERENCE RANGES EDITED 18 Performed By: #### L500.2500, L501.4010, L501.5200, L501.9520 #### [facility] [address] [facility] [place], [place], [address] MAGNESIUM Collected: 09/17/2018 Status: F Source: MAMMOTH 6:[address] [facility] REPOSITORY TYPE CODE TESTS RESULT OUT OF RANGE REFERENCE UNITS LAB L501.5200 1.6-2.6 mg/dL Normal MG 1.8 Performed By: #### L500.2500, L501.4010, L501.5200, L501.9520 #### [facility] [address] [facility] [place], [address] THYROID STIM HORMONE Collected: 09/17/2018 Status: F Source: MAMMOTH (TSH) 6:[address] [facility] REPOSITORY TYPE CODE TESTS RESULT OUT OF RANGE REFERENCE UNITS LAB L501.9520 0.358-3.74 uIU/mL Normal TSH 1.85 Performed By: #### L500.2500, L501.4010, L501.5200, L501.9520 #### [facility] [address] [facility] [place], [address] ,SERUM,HCG QUALI. Collected: Status: F Source: MAMMOTH 09/17/2018 6:[address] [facility] REPOSITORY TYPE CODE TESTS RESULT OUT OF REFERENCE UNITS RANGE LAB L700.6700 =>Qualitative mIU/mL Normal HCG Qual < 1 triggr LAB L700.7000 0-9 Nonpreg Negative Normal HCGSQUAL NEGATIVE Performed By: #### L700.6800 #### [facility] [address] [facility] [place], [address] HEMOGLOBIN A1C Collected: 09/17/2018 Status: F Source: MAMMOTH 6:[address] [facility] REPOSITORY TYPE CODE TESTS RESULT OUT OF RANGE REFERENCE UNITS LAB L501.9985 4.2-6.3 % Normal HGB A1C 5.7 Performed By: #### L501.9985 #### [facility] [address] [facility] [place], [address] CHEST PA AND LATERAL Observed: 09/17/2018 Status: F Source: MAMMOTH 6:[address] [facility] REPOSITORY [facility] [address] [place] [address] Chest PA and Lateral MR#: [id number] Acct: [id number] Name: SOFYAEMMA J Rep #: [id number] : 1985 F 33 From: Emily Quesada MD PCP: Vargas Arzate Status: REG ER Study: Chest PA and Lateral Date of Exam: 09/17/18 Exam# [id number] Ordering Dr: Kayleigh Thorpe MD STUDY: X-RAY CHEST REASON FOR EXAM: Female, 33 years old. Cardiac palpitations. TECHNIQUE: PA and lateral views of the chest. COMPARISON: November 10, 2017. FINDINGS: Cardiac monitoring leads are present. The lungs are clear and expanded. There is no demonstrated pleural abnormality. Normal size heart. Normal mediastinum and montse. There is prominence of the pulmonary hilar arteries without peripheral pulmonary vascular congestion. Normal visualized aortic arch and descending thoracic aorta. Normal visualized thoracic spine. Normal visualized ribs, clavicles, and shoulders. Surgical clips are visible within the right upper quadrant. RAD/Chest PA and Lateral IMPRESSION: No radiographic evidence of acute cardiopulmonary disease. Electronically Signed: Emily Quesada MD at 19:02 EST , Service support , CC: Vargas Arzate; Kayleigh Thorpe MD Form Coverer: Signed CNOV Observed: 09/17/2018 Status: COMPLETED Source: [facility] 12:45 PM [facility] REPOSITORY Office Visit (CAWSTR) EMMA COWART ([id number]) 1985 F Date Time Provider Department 09/17/18 12:45 PM JOSHUA CAMACHO CAWSTR During your visit today, we recorded the following information about you: Pulse Blood pressure Weight Height 77/minute 124/95 172.2 kg 1.651 m Joshua Camacho MD 09/17/2018 3:58 PM Signed PERTINENT CARDIAC HISTORY Labile HTN BRISEYDA - CPAP Palpitations Dizziness ADHERENCE TO GUIDELINES ERI-I or ARB for HF with prior LVEF<40 (NQF 0081) - N/A ASA or Plavix for ASHD (NQF 0067) - N/A Beta waldo for ASHD with prior NH or prior LVEF<40 (NQF 0070) - N/A Beta waldo for HF with prior LVEF<40 (NQF 0083) - N/A ERI-I or ARB for ASHD with DM or prior LVEF<40 (NQF 0066) - N/A Statin therapy for ASHD or FHL or DM - N/A BMI documented and plan if >25 (NQF 0421) - lifestyle recommendation form Tobacco use screening and referral (NQ 0028) - lifestyle recommendation form Recommendation for whole food, plant based diet - lifestyle recommendation form CLINICAL IMPRESSION/PLAN: Emma Cowart has palpitations which are suggestive of possible SVT. She has had documented occasional ventricular ectopy in the past, although nothing sustained. I recommend that she have lab studies including a basic profile, magnesium and TSH. 48 hour Holter will be evaluated to assess the nature of her arrhythmia. I recommend follow-up in one month but will be in touch with her as we see the results of her tests coming in. She was advised to go to the emergency department if she has sustained episodes of arrhythmia, particularly if associated with lightheadedness, chest tightness or diaphoresis. Written and verbal health teaching given to patient, patient verbalizes understanding and agrees with treatment plan. DIAGNOSIS FOR VISIT: Palpitations HISTORY OF PRESENT ILLNESS Emma Cowart returns for follow-up of her palpitations and hypertension. She reports better control of her blood pressure. She is having intermittent episodes of tachycardia lasting several minutes. On at least one occasion she was able to measure a heart rate greater than 200. She's had no chest discomfort other than that related to palpitations. She's had no orthopnea. She's had minimal edema. She denies syncope, TIAs, amaurosis and claudication. ALLERGIES: ALLERGIES Allergen Reactions - Hydrocodone-Acetami* Hives, GI Upset - Morphine Other: See Comments Abdominal pain - Penicillins CURRENT OUTPATIENT MEDICATIONS: adalimumab (HUMIRA) 40 mg/0.8 mL injection Inject 40 mg subcutaneously every 2 weeks. levothyroxine (SYNTHROID) 100 mcg tablet Take one daily on empty stomach ergocalciferol, vitamin D2, (VITAMIN D) 50,000 unit capsule Take 50,000 Units by mouth once each week. MULTI-VITAMIN ORAL Take by mouth once daily. PHYSICAL EXAMINATION: VITAL SIGNS: BP 124/95 Pulse 77 Ht 5' 5 (1.65m) Wt 379 lb 9.6 oz (172.2kg) BMI 63.17 kg/(m2). Chest: Clear to auscultation. Trachea is midline. Air entry is equal. Cardiac: Regular rhythm. S1 and S2 are normal. PMI is nondisplaced. There are no murmurs, rubs or gallops. Carotids are brisk without bruits. JVP is less than 10 cm. Abdomen: Soft and nontender. There are no pulsatile masses or bruits. No liver enlargement. Bowel sounds are active. Extremities: No edema. Pulses are intact and symmetrical. EKG shows sinus rhythm with sinus arrhythmia. There is no significant change. Electronically Signed: Joshua Camacho MD September 17, 2018 9:37 AM CC: JUNE Deshpande MD 09/17/2018 9:39 AM Signed LIFESTYLE CHANGE A healthy lifestyle is the most important component of your overall treatment plan. Please give serious thought to the following areas and commit to making terminal operations manager changes. EAT A WHOLE FOOD, PLANT BASED DIET The nutrition your body gets is more important than the medicine you take. What matters most is the overall way you eat. We encourage you to minimize the use of animal products (which include dairy and all meats except fatty fish) and use whole, unprocessed plant foods to provide your protein, vitamins and other nutrients. We have a lot of information to share with you on this topic. This is not a diet. It is a way of life that you will keep with you. EXERCISE REGULARLY It is not important to spend hours in the gym, lifting weights and perspiring heavily. A total of 2-3 hours per week of aerobic (causing you to be moderately short of breath) exercise is sufficient to improve your health. Talk to us before you begin a new exercise program, if you have heart disease or experience shortness of breath or chest pain. REDUCE STRESS Chronic emotional and physical stress leads to disease. Ways of reducing stress include meditation, visualization, prayer, yoga and other forms of relaxation therapy. Consistency is the chan. Find a technique that works for you and do it every day. CULTIVATE RELATIONSHIPS Loneliness and isolation have a major negative impact on health. Seek out others who can love, care for and nurture you. Avoid hurtful relationships. MAINTAIN IDEAL BODY WEIGHT The best way to do this is to do all the things above. Our bodies naturally find the right weight if we keep moving and feed ourselves the right food. If your BMI is greater than 25, we strongly recommend a referral to a weight management program. Please speak to us or your family physician about available programs. AVOID NICOTINE IN ALL FORMS This includes all tobacco products, whether chewed, smoked, vaped, or rubbed on the skin. Smoking cessation programs, which can make use of tobacco substitutes, medications to suppress cravings and behavior management, are available. Please contact your family physician about programs in your area. Referring Provider: SELF [[id number]] Allergies As of Date: 09/17/2018 Noted Allergy Reaction HYDROCODONE-ACETAMINOPHEN 01/29/2016 4 - Hives 8 - GI Upset MORPHINE 08/24/2016 14 - Other: See Comments Comments: Abdominal pain PENICILLINS 01/28/2008 Date Reviewed: 09/17/2018 Reviewed by: Enriqueta Navarro MA - Fully Assessed Reason for Visit: Established Patient [175] Primary Visit Diagnosis:Palpitations [R00.2] Order(s):ECG COMPLETE W INTERPRETATION [ECG01] Order #: [id number] FUTURE BASIC METABOLIC PNL [SQBMP] Order #: [id number] FUTURE MAGNESIUM BLD [SQMG1] Order #: [id number] FUTURE TSH BLD [SQTSH] Order #: [id number] FUTURE [employer]OR [9374056] Order #: [id number]: 1 Prescriptions as of 09/17/2018 Sig: ADALIMUMAB 40 MG/0.8 ML SUBCU* Inject 40 mg subcutaneously e* LEVOTHYROXINE 100 MCG TABLET Take one daily on empty stoma* ERGOCALCIFEROL (VITAMIN D2) 5* Take 50,000 Units by mouth on* * MULTI-VITAMIN ORAL Take by mouth once daily. Problem List As Of Date 09/17/2018 Noted Resolved Nonspecific abnormal results of liver function *INVALID FOR*04/09/2015 Morbid obesity (HCC) [E66.01] INVALID FOR* Steatohepatitis, non-alcoholic [K75.81] INVALID FOR* More... Depression [F32.9] INVALID FOR* Chronic low back pain [M54.5, G89.29] INVALID FOR* Sleep apnea [G47.30] INVALID FOR* More... Vitamin D deficiency [E55.9] INVALID FOR* More... Hypothyroidism [E03.9] INVALID FOR* Other instructions from your clinician: LIFESTYLE CHANGE A healthy lifestyle is the most important component of your overall treatment plan. Please give serious thought to the following areas and commit to making terminal operations manager changes. EAT A WHOLE FOOD, PLANT BASED DIET The nutrition your body gets is more important than the medicine you take. What matters most is the overall way you eat. We encourage you to minimize the use of animal products (which include dairy and all meats except fatty fish) and use whole, unprocessed plant foods to provide your protein, vitamins and other nutrients. We have a lot of information to share with you on this topic. This is not a diet. It is a way of life that you will keep with you. EXERCISE REGULARLY It is not important to spend hours in the gym, lifting weights and perspiring heavily. A total of 2-3 hours per week of aerobic (causing you to be moderately short of breath) exercise is sufficient to improve your health. Talk to us before you begin a new exercise program, if you have heart disease or experience shortness of breath or chest pain. REDUCE STRESS Chronic emotional and physical stress leads to disease. Ways of reducing stress include meditation, visualization, prayer, yoga and other forms of relaxation therapy. Consistency is the chan. Find a technique that works for you and do it every day. CULTIVATE RELATIONSHIPS Loneliness and isolation have a major negative impact on health. Seek out others who can love, care for and nurture you. Avoid hurtful relationships. MAINTAIN IDEAL BODY WEIGHT The best way to do this is to do all the things above. Our bodies naturally find the right weight if we keep moving and feed ourselves the right food. If your BMI is greater than 25, we strongly recommend a referral to a weight management program. Please speak to us or your family physician about available programs. AVOID NICOTINE IN ALL FORMS This includes all tobacco products, whether chewed, smoked, vaped, or rubbed on the skin. Smoking cessation programs, which can make use of tobacco substitutes, medications to suppress cravings and behavior management, are available. Please contact your family physician about programs in your area. Medications Discontinued During This Encounter meloxicam (MOBIC) 7.5 mg tablet 09/17/2018 Class: Historical Med Route: ORAL Sig: Take 7.5 mg by mouth once daily. Disc: Course of therapy completed ALPRAZolam (XANAX) 0.5 mg ORAL tablet 09/17/2018 Class: Med Update Route: ORAL Sig: as necessary Disc: Course of therapy completed DULoxetine (CYMBALTA) 60 mg capsule 04/09/2015 09/17/2018 Class: Historical Med Route: ORAL Sig: Take 1 capsule by mouth twice daily. Disc: Course of therapy completed benzonatate (TESSALON PERLE) 100 mg * 20 c* 0 11/17/2015 09/17/2018 Route: ORAL Sig: Take 1 capsule by mouth three times daily as needed for Cough. Patient not taking: Reported on 09/17/2018 Disc: Course of therapy completed predniSONE (DELTASONE) 20 mg tablet 4 ta* 0 11/17/2015 09/17/2018 Route: ORAL Sig: Take 1 tablet by mouth once daily. Take daily with food. Patient not taking: Reported on 09/17/2018 Disc: Course of therapy completed LORazepam (ATIVAN) 1 mg tablet 09/17/2018 Class: Historical Med Route: ORAL Sig: Take 1 mg by mouth every 6 hours as needed. Disc: Course of therapy completed venlafaxine (EFFEXOR) 75 mg tablet 09/17/2018 Class: Historical Med Route: ORAL Sig: Take 75 mg by mouth three times daily. Disc: Course of therapy completed Encounter Status:Closed by JOSHUA CAMACHO MD on 09/17/18 TSH Collected: 09/17/2018 Status: F Source: [facility] 10:26 AM [facility] REPOSITORY TYPE CODE TESTS RESULT OUT OF RANGE REFERENCE UNITS LAB TSH 0.400-5.500 uU/mL TSH 1.690 Result Comment: If the patient is , TSH reference range varies by gestational period: First Trimester 0.100-2.500 uU/mL Second Trimester 0.200-3.000 uU/mL Third Trimester 0.300-3.000 uU/mL References: 1. Rodrigez L, Libby M, Cristhian EK, et al. Management of Thyroid Dysfunction during and : An Endocrine Society Clinical Practice Guideline. J Clin Endocrinol Metab, 2012:97:4955-3680. 2. Jason JORDAN. Overview of thyroid disease in . UpToDate. 2016. Accessed on February 12, 2016. Performed By: #### TSH #### [facility] [address] [address] BASIC METABOLIC PANL Collected: 09/17/2018 Status: F Source: [facility] 10:25 AM [facility] REPOSITORY TYPE CODE TESTS RESULT OUT OF REFERENCE UNITS RANGE LAB GLU 74-99 mg/dL Glucose 93 LAB BUN 7-21 mg/dL BUN 8 LAB CRET 0.58-0.96 mg/dL Creatinine 0.63 LAB NA 136-144 mmol/L Sodium 136 LAB K 3.7-5.1 mmol/L Potassium 4.4 LAB CL 97-105 mmol/L Chloride High 106 LAB CO2 22-30 mmol/L Low CO2 21 LAB AGAP mmol/L Anion Gap 9 LAB CA 8.5-10.2 mg/dL Calcium, Total 9.6 LAB GFRAA eGFR- >60 Amer. LAB GFRNAA . eGFR-All Other Races >60 Result Comment: eGFR (Estimated GFR) Units of measure: mL/min/1.73 meters squared eGFR is derived from the reexpressed MDRD Study equation using the following parameters: serum creatinine, age, gender and race. The creatinine assay has been calibrated to be traceable to IDMS. An eGFR <60 mL/min/1.73m2 for >3 months is consistent with chronic kidney disease. Refer to KDOQI guidelines for clinical interpretation. In patients with unstable renal function, e.g. those with acute kidney injury, the eGFR may not accurately reflect actual GFR. MAGNESIUM Collected: 09/17/2018 Status: F Source: [place] 10:25 AM [facility] REPOSITORY TYPE CODE TESTS RESULT OUT OF REFERENCE UNITS RANGE LAB MG 1.7-2.3 mg/dL Magnesium 1.8 EKG1 Observed: 09/17/2018 Status: F Source: [place] 10:10 AM [facility] REPOSITORY NAME : EMMA COWART PID : [id number] : 1985 Gender : Female Race : ORD : Procedure Date : Sep 17 2018 10:10:49 Edit Date : Sep 18 2018 16:22:14 Diagnosis:SINUS RHYTHM WITH SINUS ARRHYTHMIA NORMAL ECG NO SIGNIFICANT CHANGE FROM PREVIOUS ECG Confirmed by JOSHUA CAMACHO MD ([id number]) on 09/18/2018 4:22:11 PM Ventricular Rate : 66 BPM Atrial Rate : 66 BPM P-R Interval : 164 ms QRS Duration : 74 ms Q-T Interval : 408 ms QTC Calculation(Bezet) : 427 ms P Ilfeld : 74 degrees R Ilfeld : 16 degrees T Ilfeld : 35 degrees Test Reason : [facility] Edited By : JOSHUA CAMACHO MD Referred By : JANICE, Acquired by : , PROGRESS Observed: 09/17/2018 Status: COMPLETED Source: [place] 10:06 AM [facility] REPOSITORY HNO ID: [id number] Author: Seymour Cerda (Rcep) Service: (none) Author Type: Chief Dietitian Type: Progress Notes Filed: 09/17/2018 10:06 AM Note Text: Holter monitor placed, instructions provided, and verbal feedback demonstrating understanding received. LUCIO Oakes CNOV Observed: 09/17/2018 Status: COMPLETED Source: [facility] 10:00 AM [facility] REPOSITORY Office Visit (CAWSTR) MEMA COWART ([id number]) 1985 F Date Time Provider Department 09/17/18 10:00 AM LILY CERDA) CAWSTR During your visit today, we recorded the following information about you: LUCIO Oakes 09/17/2018 10:06 AM Signed Holter monitor placed, instructions provided, and verbal feedback demonstrating understanding received. LUCIO Oakes Referring Provider: JOSHUA CMAACHO [[id number]] Allergies As of Date: 09/17/2018 Noted Allergy Reaction HYDROCODONE-ACETAMINOPHEN 01/29/2016 4 - Hives 8 - GI Upset MORPHINE 08/24/2016 14 - Other: See Comments Comments: Abdominal pain PENICILLINS 01/28/2008 Date Reviewed: 09/17/2018 Reviewed by: Enriqueta Navarro MA - Fully Assessed Reason for Visit: Palpitations [79] Primary Visit Diagnosis:Palpitations [R00.2] Prescriptions as of 09/17/2018 Sig: ADALIMUMAB 40 MG/0.8 ML SUBCU* Inject 40 mg subcutaneously e* LEVOTHYROXINE 100 MCG TABLET Take one daily on empty stoma* ERGOCALCIFEROL (VITAMIN D2) 5* Take 50,000 Units by mouth on* * MULTI-VITAMIN ORAL Take by mouth once daily. Problem List As Of Date 09/17/2018 Noted Resolved Nonspecific abnormal results of liver function *INVALID FOR*04/09/2015 Morbid obesity (HCC) [E66.01] INVALID FOR* Steatohepatitis, non-alcoholic [K75.81] INVALID FOR* More... Depression [F32.9] INVALID FOR* Chronic low back pain [M54.5, G89.29] INVALID FOR* Sleep apnea [G47.30] INVALID FOR* More... Vitamin D deficiency [E55.9] INVALID FOR* More... Hypothyroidism [E03.9] INVALID FOR* Encounter Status:Closed by Seymour MAO on 09/17/18 CNNURSE Observed: 09/17/2018 Status: COMPLETED Source: [facility] 10:00 AM [facility] REPOSITORY Nurse Visit (CAWSTR) EMMA COWART ([id number]) 1985 F Date Time Provider Department 09/17/18 10:00 AM NURSE CARD ADMIN [facility] CAWSTR During your visit today, we recorded the following information about you: Ellie Lopez RN 09/17/2018 1:07 PM Signed Ekg completed per order. Pt tolerated procedure without distress. Ellie Lopez RN Referring Provider: JOSHUA CAMACHO [[id number]] Allergies As of Date: 09/17/2018 Noted Allergy Reaction HYDROCODONE-ACETAMINOPHEN 01/29/2016 4 - Hives 8 - GI Upset MORPHINE 08/24/2016 14 - Other: See Comments Comments: Abdominal pain PENICILLINS [birth year]2008 Date Reviewed: 09/17/2018 Reviewed by: Enriqueta Navarro MA - Fully Assessed Reason for Visit: Nurse Visit [792] Visit Diagnosis:Palpitations [R00.2] Order(s):ECG COMPLETE W INTERPRETATION [ECG01] Order #: [id number] Prescriptions as of 09/17/2018 Sig: ADALIMUMAB 40 MG/0.8 ML SUBCU* Inject 40 mg subcutaneously e* LEVOTHYROXINE 100 MCG TABLET Take one daily on empty stoma* ERGOCALCIFEROL (VITAMIN D2) 5* Take 50,000 Units by mouth on* * MULTI-VITAMIN ORAL Take by mouth once daily. Problem List As Of Date 09/17/2018 Noted Resolved Nonspecific abnormal results of liver function *INVALID FOR*04/09/2015 Morbid obesity (HCC) [E66.01] INVALID FOR* Steatohepatitis, non-alcoholic [K75.81] INVALID FOR* More... Depression [F32.9] INVALID FOR* Chronic low back pain [M54.5, G89.29] INVALID FOR* Sleep apnea [G47.30] INVALID FOR* More... Vitamin D deficiency [E55.9] INVALID FOR* More... Hypothyroidism [E03.9] INVALID FOR* Visit Notes: >> Ellie Lopez RN Mon Sep 17, 2018 1:07 PM Status: Signed Ekg completed per order. Pt tolerated procedure without distress. Ellie Lopez RN Encounter Status:Closed by ELLIE LOPEZ RN on 09/17/18 PROGRESS Observed: 09/17/2018 Status: COMPLETED Source: [place] 9:37 AM [facility] REPOSITORY [facility] ID: [id number] Author: Joshua Camacho Service: (none) Author Type: Physician Type: Progress Notes Filed: 09/17/2018 3:58 PM Note Text: PERTINENT CARDIAC HISTORY Labile HTN BRISEYDA - CPAP Palpitations Dizziness ADHERENCE TO GUIDELINES ERI-I or ARB for HF with prior LVEF<40 (NQF 0081) - N/A ASA or Plavix for ASHD (NQF 0067) - N/A Beta waldo for ASHD with prior NH or prior LVEF<40 (NQF 0070) - N/A Beta waldo for HF with prior LVEF<40 (NQF 0083) - N/A ERI-I or ARB for ASHD with DM or prior LVEF<40 (NQF 0066) - N/A Statin therapy for ASHD or FHL or DM - N/A BMI documented and plan if >25 (NQF 0421) - lifestyle recommendation form Tobacco use screening and referral (NQF 0028) - lifestyle recommendation form Recommendation for whole food, plant based diet - lifestyle recommendation form CLINICAL IMPRESSION/PLAN: Emma Cowart has palpitations which are suggestive of possible SVT. She has had documented occasional ventricular ectopy in the past, although nothing sustained. I recommend that she have lab studies including a basic profile, magnesium and TSH. 48 hour Holter will be evaluated to assess the nature of her arrhythmia. I recommend follow-up in one month but will be in touch with her as we see the results of her tests coming in. She was advised to go to the emergency department if she has sustained episodes of arrhythmia, particularly if associated with lightheadedness, chest tightness or diaphoresis. Written and verbal health teaching given to patient, patient verbalizes understanding and agrees with treatment plan. DIAGNOSIS FOR VISIT: Palpitations HISTORY OF PRESENT ILLNESS Emma Cowart returns for follow-up of her palpitations and hypertension. She reports better control of her blood pressure. She is having intermittent episodes of tachycardia lasting several minutes. On at least one occasion she was able to measure a heart rate greater than 200. She's had no chest discomfort other than that related to palpitations. She's had no orthopnea. She's had minimal edema. She denies syncope, TIAs, amaurosis and claudication. ALLERGIES: ALLERGIES Allergen Reactions - Hydrocodone-Acetami* Hives, GI Upset - Morphine Other: See Comments Abdominal pain - Penicillins CURRENT OUTPATIENT MEDICATIONS: adalimumab (HUMIRA) 40 mg/0.8 mL injection Inject 40 mg subcutaneously every 2 weeks. levothyroxine (SYNTHROID) 100 mcg tablet Take one daily on empty stomach ergocalciferol, vitamin D2, (VITAMIN D) 50,000 unit capsule Take 50,000 Units by mouth once each week. MULTI-VITAMIN ORAL Take by mouth once daily. PHYSICAL EXAMINATION: VITAL SIGNS: BP 124/95 Pulse 77 Ht 5' 5 (1.65m) Wt 379 lb 9.6 oz (172.2kg) BMI 63.17 kg/(m2). Chest: Clear to auscultation. Trachea is midline. Air entry is equal. Cardiac: Regular rhythm. S1 and S2 are normal. PMI is nondisplaced. There are no murmurs, rubs or gallops. Carotids are brisk without bruits. JVP is less than 10 cm. Abdomen: Soft and nontender. There are no pulsatile masses or bruits. No liver enlargement. Bowel sounds are active. Extremities: No edema. Pulses are intact and symmetrical. EKG shows sinus rhythm with sinus arrhythmia. There is no significant change. Electronically Signed: Joshua Camacho MD September 17, 2018 9:37 AM CC: JUNE Deshpande DISCHARGE INSTRUCTION Observed: 09/01/2018 Status: F Source: MAMMOTH 3:[address] [facility] REPOSITORY [facility] Medical Records Department [address] [place] [address] Discharge Instruction 09/01/18 1311 MR#: [id number] Acct: [id number] Name: EMMA COWART Rep #: [id number] : 1985 33 From: Derrick Neff MD PCP: OUT OF TOWN DOCTOR Status: DEP ER ED Disposition - Plan for ED Patient: Chief Complaint: Abd Pain Instructions: ED Abdominal Pain Unkn Cause Prescriptions: proMETHazine tablet [Phenergan] 25 mg PO Q6H PRN PRN #10 tab PRN Reason: Nausea Famotidine [Pepcid] 20 mg PO BID #28 tab Additional Instructions: call your doctor monday for follow up What to do if you have Problems For any increased pain, shortness of breath, bleeding, nausea or vomiting, chest pain, or any unexpected problems, contact your Primary Care Provider. Call [facility] ([phone]) or report to the closest Emergency Room. Call 911 if necessary. 09/01/18 1558 <Electronically signed by Derrick Neff MD> Date Derrick Neff MD Cosigner Signature (If Indicated): Date CC: JOSSELYN ROBLERO; OUT OF TOWN DOCTOR EMERGENCY DEPARTMENT Observed: 09/01/2018 Status: F Source: [place]OMAS[place] SUMMARY 3:53 PM [facility] Medical Records Department [address] [place] [address] Emergency Department Summary 09/01/18 0948 MR#: [id number] Acct: [id number] Name: EMMA COWART Rep #: [id number] : 1985 33 From: Derrick Nfef MD PCP: OUT OF TOWN DOCTOR Status: DEP ER - ER Visit Summary Date of Service: 09/01/18 Chief Complaint: Abdominal pain History of Present Illness: The patient is a 33 F with 5 days of upper abdominal pain. The pain starts in her epigastric region and radiates over her entire abdomen, worse in the right upper quadrant. It feels sharp, and at other times it belcher. She never had this before. Associate with nausea and feeling that her stomach is distended. She was seen in the ED 2 days ago and had labs and urine. Her symptoms are worsening. She tried to take some Zofran, but it made her symptoms worse. She has a history of ankylosing spondylitis and takes Humira. She also has a history of alpha-1 antitrypsin deficiency and has a history of elevated liver enzymes. Patient had a cholecystectomy 10 or more years ago. She also had an upper EGD many years ago for reflux, but her symptoms are different this time. Physical Examination: Afebrile and vital signs unremarkable. Patient alert and oriented. No acute distress. Heart regular. Abdomen tender in the epigastric region. No guarding or rebound. Skin appears normal. Test Results: We will repeat labs. Will add a CT as well. Emergency Department Course and Treatment: Patient was treated with fluids, Phenergan, and a GI cocktail while awaiting results. CBC normal. CMP shows an ALT of 164 and AST of 93, this is close to her baseline. Lipase normal. I did not repeat urine testing as she had this just a few days ago and has no urinary symptoms. I did check a CT which showed hepatosplenomegaly (she does have alpha-1 antitrypsin deficiency with liver involvement) as well as a small hiatal hernia. Normal bile ducts. I suspect she may have pain from gastritis or acid reflux. She does have a small hiatal hernia. Will treat with Pepcid and Phenergan. Follow-up with her doctor for outpatient management. Return for any new or worsening issues. Treatment Plan: As above Disposition: Discharge Impression: 1. Upper abdominal pain This note was generated with Trilliantation software. It may contain incorrect words, spelling, and punctuation that were not noted in review of the chart prior to signing ED Disposition - Plan for ED Patient: Chief Complaint: Abd Pain Referrals: [facility] Doctor,Out of [Primary Care Provider] - What to do if you have Problems For any increased pain, shortness of breath, bleeding, nausea or vomiting, chest pain, or any unexpected problems, contact your Primary Care Provider. Call [facility] ([phone]) or report to the closest Emergency Room. Call 911 if necessary. 09/01/18 1553 <Electronically signed by Derrick Neff MD> Date Derrick Neff MD Cosigner Signature (If Indicated): Date CC: JOSSELYN ROBLERO; OUT OF TOWN DOCTOR CBC W/DIFF, AUTOMATED Collected: 09/01/2018 Status: F Source: [place]OTH 9:[address] [facility] REPOSITORY TYPE CODE TESTS RESULT OUT OF RANGE REFERENCE UNITS LAB L100.1000 4.4-11.0 K/mm3 Normal WBC 8.2 LAB L100.1200 4.2-5.4 M/mm3 Normal RBC 4.99 LAB L100.1300 12.0-15.0 g/dl Normal HGB 14.3 LAB L100.1400 37-47 % Normal HCT 43.1 LAB L100.1500 81-99 fL Normal MCV 86.4 LAB L100.1600 27.0-32.0 pg Normal MCH 28.7 LAB L100.1700 32-36 g/gl Normal MCHC 33.2 LAB L100.1810 11.6-14.6 % Normal RDW CV 14.4 LAB L100.1820 35.1-43.9 fl High RDW SD 45.4 LAB L100.1900 150-450 K/mm3 Normal PLT 290 LAB L100.2000 6.2-12.0 fl Normal MPV 10.5 LAB L100.2100 47-70 % Normal NEUT% 59.1 LAB L100.2200 19-41 % Normal LY% 31.3 LAB L100.2300 0-10 % Normal MONO% 8.2 LAB L100.2400 0-5 % Normal EO% 1.1 LAB L100.2500 0-1 % Normal BASO% 0.1 LAB L100.2550 0.0-0.9 % Normal IM GRAN % 0.200 Result Comment: IG% - Immature Granulocytes (promyelocytes, myelocytes and metamyelocytes) > 1% indicates that a LEFT SHIFT is Present. LAB L100.2620 2.0-7.7 X10 3/uL Normal Absolute Neut 4.9 LAB L100.2720 0.83-4.51 X10 3/ul Normal Absolute Lymph 2.57 Performed By: #### L100.0100 #### [facility] [address] [place], [address] COMPREHENSIVE METABOLIC Collected: 09/01/2018 Status: F Source: [place] VIOLET 9:[address] [facility] REPOSITORY TYPE CODE TESTS RESULT OUT OF RANGE REFERENCE UNITS LAB L501.0100 74-106 mg/dL Normal GLU 94 Result Comment: Please note revised GLUCOSE reference range effective 2017. LAB L501.1000 7-18 mg/dL Normal BUN 9 LAB L501.1100 0.55-1.02 mg/dL Normal CREAT,SERUM 0.68 Result Comment: The validity of the calculated GFR AND GFRAA in patients over 70 years has not been determined. Clinical correlation is essential. LAB L501.1110 >60 mL/min Normal EST GFR 106 Result Comment: Non- GFR Calc LAB L501.1115 >60 mL/min Normal EST GFR - AA 128 Result Comment: GFR Calc LAB L501.1255 ml/min Normal Estimated CRCL 112.29 LAB L501.1300 10-20 RATIO BUN/CRE Normal 13.3 LAB L501.1500 6.4-8. g/dL 2 T PROT Normal 7.7 LAB L501.1800 3.2-5. g/dL 0 ALB Normal 3.3 LAB L501.1950 2.2-4. g/dL High 2 GLOB 4.4 LAB L501.2000 0.9-2. RATIO Low 4 A/G 0.8 LAB L501.2200 8.5-10 mg/dL .1 CA Normal 8.9 LAB L501.4100 15-37 U/L High AST 93 LAB L501.4305 45-117 U/L ALK P Normal 115 LAB L501.4405 13-56 U/L High ALT 164 LAB L501.4600 0.20-1 mg/dL .00 T BILI Normal 0.50 LAB L501.5300 136-14 mmol/L 5 NA Normal 141 LAB L501.5600 3.5-5. mmol/L 1 K Normal 4.0 LAB L501.5900 98-107 mmol/L CL Normal 105 LAB L501.6100 21.0-3 mmol/L 2.0 CO2 Normal 27.0 LAB L501.6200 5-15 GAP Normal 9 Performed By: #### L500.4050, L501.2450 #### [facility] [address] [place], [address] LIPASE Collected: 09/01/2018 Status: F Source: [place] 9:[address] [facility] REPOSITORY TYPE CODE TESTS RESULT OUT OF RANGE REFERENCE UNITS LAB L501.2450 73-393 U/L Normal LIPASE 100 Performed By: #### L500.4050, L501.2450 #### [facility] [address] [place], [address] ABDOMEN/PELVIS WITH Observed: 09/01/2018 Status: F Source: [place] CONTRAST 9:[address] [facility] REPOSITORY [facility] Imaging Services [address] [place] [address] Abdomen/Pelvis WITH Contrast MR#: [id number] Acct: [id number] Name: EMMA COWART Jorge A Rep #: [id number] : 1985 F 33 From: Aaron Curiel MD PCP: OUT OF TOWN DOCTOR Status: REG ER Study: Abdomen/Pelvis WITH Contrast Date of Exam: 09/01/18 Exam# [id number] Ordering Dr: Derrick Neff MD STUDY: CT ABDOMEN AND PELVIS WITH CONTRAST REASON FOR EXAM: Female, 33 years old. Pain.. RADIATION DOSAGE (If Supplied By Facility): CTDIvol = ( 24.33 ) mGy, DLP = ( 1991.29 ) mGycm TECHNIQUE: Transaxial images were obtained from the dome of the diaphragm to the symphysis pubis with oral contrast. 100 ml of Isovue 300 contrast was administered. Sagittal and coronal images were reconstructed. Individualized dose optimization techniques were used for this CT. COMPARISON: None. FINDINGS: The visualized lung bases are unremarkable. The visualized portions of the heart are within normal limits. There is hepatomegaly with diffuse hepatic enlargement. There are surgical clips in the gallbladder fossa consistent with a prior cholecystectomy. There is mild splenomegaly. Normal pancreas. Normal bilateral adrenal glands. Normal right kidney. Normal left kidney. There is a small hiatal hernia. Normal small intestine. Normal colon. The appendix is visualized and appears normal. Normal abdominal aorta. Normal inferior vena cava. Normal retroperitoneum. Normal urinary bladder. Normal visualized uterus. control devices in the fallopian tubes. There is no free fluid in the abdomen or pelvis. Normal abdominal wall. Normal osseous structures. CT/Abdomen/Pelvis WITH Contrast IMPRESSION: Hepatosplenomegaly. No biliary dilatation. Small hiatal hernia. Electronically Signed: Aaron Curiel MD at 12:51 EST , Service support , CC: Derrick Neff MD; OUT OF TOWN DOCTOR Form Coverer: Signed EMERGENCY DEPARTMENT Observed: 08/31/2018 Status: F Source: M[place] SUMMARY 12:[address] [facility] REPOSITORY [facility] Medical Records Department [address] [place] [address] Emergency Department Summary 08/30/18 2134 MR#: [id number] Acct: [id number] Name: MARCUS COWARTMARGARITO Jules Rep #: [id number] : 1985 33 From: Garry Conn DO PCP: OUT OF TOWN DOCTOR Status: DEP ER - ER Visit Summary Date of Service: 08/30/18 Chief Complaint: Abdominal pain History of Present Illness: The patient is a 33 F who presents with abdominal pain that has been constant over the past 4 days. Patient describes the pain as aching with occasional burning and sharp pain. Patient states the pain is over the upper abdomen. Patient states the pain is worse with movement and with cough. Patient admits to some nausea but denies any vomiting. Patient denies any diarrhea, melena, or hematochezia. Patient denies any urinary complaints. Patient denies any other symptoms. Physical Examination: Vital signs are stable. Patient is afebrile. Patient is in no acute distress. Oral mucosa is pink and moist. Neck is supple. Trachea is midline. There is no JVD noted. Heart was regular rate and rhythm. Lungs are clear and equal bilaterally. Abdomen is soft. There is tenderness over the upper abdomen. There is no rebound or guarding noted. There is no distention noted. Cranial nerves II through XII are intact. There are no focal motor or sensory deficits noted. Test Results: CBC showed a mild leukocytosis of 12.4. Liver function tests were slightly elevated with an AST of 86, ALT of 155, and alk phos of 118. The remaining comprehensive metabolic profile was normal. Urinalysis was normal. Emergency Department Course and Treatment: Patient felt better on reevaluation. Patient was given a prescription for Prilosec. Patient was instructed to follow-up with her primary care physician in 5-7 days. Patient understood and was agreeable with the plan. All questions were answered. Disposition: Discharge home Impression: Epigastric abdominal pain This note was generated with PA Semi dictation software. It may contain incorrect words, spelling, and punctuation that were not noted in review of the chart prior to signing ED Disposition - Plan for ED Patient: Disposition: Home or Assisted Living Chief Complaint: Abd Pain Diagnosis: Epigastric abdominal pain of unknown etiology Instructions: ED Abdominal Pain Unkn Cause Prescriptions: Omeprazole [Prilosec] 20 mg PO DAILY #30 cap Referrals: [facility] Doctor,Out of [Primary Care Provider] - What to do if you have Problems For any increased pain, shortness of breath, bleeding, nausea or vomiting, chest pain, or any unexpected problems, contact your Primary Care Provider. Call [facility] ([phone]) or report to the closest Emergency Room. Call 911 if necessary. 08/31/18 0043 <Electronically signed by Garry Conn DO> Date Garry Conn DO Cosigner Signature (If Indicated): Date CC: JOSSELYN ROBLERO; OUT OF TOWN DOCTOR CBC W/DIFF, AUTOMATED Collected: 08/30/2018 Status: F Source: [place] 7:[address] [facility] REPOSITORY TYPE CODE TESTS RESULT OUT OF RANGE REFERENCE UNITS LAB L100.1000 4.4-11.0 K/mm3 High WBC 12.4 LAB L100.1200 4.2-5.4 M/mm3 Normal RBC 4.95 LAB L100.1300 12.0-15.0 g/dl Normal HGB 14.0 LAB L100.1400 37-47 % Normal HCT 42.8 LAB L100.1500 81-99 fL Normal MCV 86.5 LAB L100.1600 27.0-32.0 pg Normal MCH 28.3 LAB L100.1700 32-36 g/gl Normal MCHC 32.7 LAB L100.1810 11.6-14.6 % Normal RDW CV 14.4 LAB L100.1820 35.1-43.9 fl High RDW SD 45.2 LAB L100.1900 150-450 K/mm3 Normal PLT 279 LAB L100.2000 6.2-12.0 fl Normal MPV 10.5 LAB L100.2100 47-70 % Normal NEUT% 55.4 LAB L100.2200 19-41 % Normal LY% 34.7 LAB L100.2300 0-10 % Normal MONO% 8.3 LAB L100.2400 0-5 % Normal EO% 1.2 LAB L100.2500 0-1 % Normal BASO% 0.2 LAB L100.2550 0.0-0.9 % Normal IM GRAN % 0.200 Result Comment: IG% - Immature Granulocytes (promyelocytes, myelocytes and metamyelocytes) > 1% indicates that a LEFT SHIFT is Present. LAB L100.2620 2.0-7.7 X10 3/uL Normal Absolute Neut 6.9 LAB L100.2720 0.83-4.51 X10 3/ul Normal Absolute Lymph 4.30 Performed By: #### L100.0100, L500.2500, L500.4050, L501.2450 #### [facility] [address] [place], [place], [id number] BASIC METABOLIC Collected: 08/30/2018 Status: F Source: MAMMOTH PROFILE (BMP) 7:[address] [facility] REPOSITORY TYPE CODE TESTS RESULT OUT OF RANGE REFERENCE UNITS LAB L501.0100 74-106 mg/dL Normal GLU 80 Result Comment: Please note revised GLUCOSE reference range effective 2017. LAB L501.1000 7-18 mg/dL Normal BUN 11 LAB L501.1100 0.55-1.02 mg/dL Normal CREAT,SERUM 0.81 Result Comment: The validity of the calculated GFR AND GFRAA in patients over 70 years has not been determined. Clinical correlation is essential. LAB L501.1110 >60 mL/min Normal EST GFR 86 Result Comment: Non- GFR Calc LAB L501.1115 >60 mL/min Normal EST GFR - AA 104 Result Comment: GFR Calc LAB L501.1255 ml/min Normal Estimated CRCL 94.27 LAB L501.1300 10-20 RATIO Normal BUN/CRE 13.6 LAB L501.2200 8.5-10 mg/dL Normal .1 CA 8.6 LAB L501.5300 136-14 mmol/L Normal 5 NA 139 LAB L501.5600 3.5-5. mmol/L Normal 1 K 3.7 LAB L501.5900 98-107 mmol/L Normal CL 106 LAB L501.6100 21.0-3 mmol/L Normal 2.0 CO2 26.0 LAB L501.6200 5-15 Normal GAP 7 Performed By: #### L100.0100, L500.2500, L500.4050, L501.2450 #### [facility] [address] [place], [place], [address] COMPREHENSIVE METABOLIC Collected: 08/30/2018 Status: F Source: [place] LAZO 7:[address] [facility] REPOSITORY TYPE CODE TESTS RESULT OUT OF RANGE REFERENCE UNITS LAB L501.1500 6.4-8.2 g/dL Normal T PROT 7.8 LAB L501.1800 3.2-5.0 g/dL Normal ALB 3.4 LAB L501.1950 2.2-4.2 g/dL High GLOB 4.4 LAB L501.2000 0.9-2.4 RATIO Low A/G 0.8 LAB L501.4100 15-37 U/L High AST 86 LAB L501.4305 45-117 U/L High ALK P 118 LAB L501.4405 13-56 U/L High ALT 155 LAB L501.4600 0.20-1.00 mg/dL Normal T BILI 0.40 LAB L501.0100 74-106 mg/dL Normal GLU 80 Result Comment: Please note revised GLUCOSE reference range effective 2017. LAB L501.1000 7-18 mg/dL Normal BUN 11 LAB L501.1100 0.55-1.02 mg/dL Normal CREAT,SERUM 0.81 Result Comment: The validity of the calculated GFR AND GFRAA in patients over 70 years has not been determined. Clinical correlation is essential. LAB L501.1110 >60 mL/min Normal EST GFR 86 Result Comment: Non- GFR Calc LAB L501.1115 >60 mL/min Normal EST GFR - AA 104 Result Comment: GFR Calc LAB L501.1255 ml/min Normal Estimated CRCL 94.27 LAB L501.1300 10-20 RATIO Normal BUN/CRE 13.6 LAB L501.2200 8.5-10 mg/dL Normal .1 CA 8.6 LAB L501.5300 136-14 mmol/L Normal 5 NA 139 LAB L501.5600 3.5-5. mmol/L Normal 1 K 3.7 LAB L501.5900 98-107 mmol/L Normal CL 106 LAB L501.6100 21.0-3 mmol/L Normal 2.0 CO2 26.0 LAB L501.6200 5-15 Normal GAP 7 Performed By: #### L100.0100, L500.2500, L500.4050, L501.2450 #### [facility] [address] [place], [address] LIPASE Collected: 08/30/2018 Status: F Source: [place] 7:[address] [facility] REPOSITORY TYPE CODE TESTS RESULT OUT OF RANGE REFERENCE UNITS LAB L501.2450 73-393 U/L Normal LIPASE 98 Performed By: #### L100.0100, L500.2500, L500.4050, L501.2450 #### [facility] [address] [place], [address] ,SERUM,HCG QUALI. Collected: Status: F Source: [place] 08/30/2018 7:[address] [facility] REPOSITORY TYPE CODE TESTS RESULT OUT OF REFERENCE UNITS RANGE LAB L700.6700 =>Qualitative mIU/mL Normal HCG Qual < 1 triggr LAB L700.7000 0-9 Nonpreg Negative Normal HCGSQUAL NEGATIVE Performed By: #### L700.6800 #### [facility] [address] [place], [address] URINALYSIS, COMPLETE Collected: 08/30/2018 Status: F Source: [place] 7:[address] [facility] REPOSITORY Order Comment: Order Date: 08/30/18 How was Urine Obtained? CLEAN CATCH TYPE CODE TESTS RESULT OUT OF RANGE REFERENCE UNITS LAB L400.3000 Yellow COLOR Normal Yellow LAB L400.3050 Clear Normal CLARITY Clear LAB L400.3200 Normal mg/dl Normal GLUCOSE, UR Normal LAB L400.3300 Negative mg/dL Normal BILIRUBIN URINE Negative LAB L400.3400 Negative mg/dl Normal KETONE UR Negative LAB L400.3465 1.002-1.030 Normal SP.GR. DIPSTX 1.010 LAB L400.3550 5.0 - 8.0 pH UR Normal 7.0 LAB L400.3600 Negative mg/dl PROT Normal DIPSTX Negative LAB L400.3700 Normal mg/dl Normal UROBILI Normal LAB L400.3750 Negative Normal NITRITE UR Negative LAB L400.3780 Negative /ul Normal OCCULT BLOOD-UR Negative LAB L400.3800 Negative /ul LEUK Normal ESTERASE Negative LAB L400.4050 0-5 /hpf WBC Normal 0-5 SEEN LAB L400.4100 0-5 /hpf Normal RBC-UA 0-5 SEEN LAB L400.4150 5-10 /hpf SQUAM Normal EPI 0-5 SEEN LAB L400.4300 None Seen /hpf 0 Normal BACTERIA SEEN LAB L400.4350 <or=2+ /hpf 0 Normal MUCUS, URINE SEEN Performed By: #### L400.0001 #### [facility] [address] [place], [place], [id number] CBC W/DIFF, AUTOMATED Collected: 06/27/2018 Status: F Source: MAMMOTH 10:[address] [facility] REPOSITORY TYPE CODE TESTS RESULT OUT OF RANGE REFERENCE UNITS LAB L100.1000 4.4-11.0 K/mm3 Normal WBC 7.9 LAB L100.1200 4.2-5.4 M/mm3 Normal RBC 5.03 LAB L100.1300 12.0-15.0 g/dl Normal HGB 14.2 LAB L100.1400 37-47 % Normal HCT 42.7 LAB L100.1500 81-99 fL Normal MCV 84.9 LAB L100.1600 27.0-32.0 pg Normal MCH 28.2 LAB L100.1700 32-36 g/gl Normal MCHC 33.3 LAB L100.1810 11.6-14.6 % Normal RDW CV 14.2 LAB L100.1820 35.1-43.9 fl Normal RDW SD 43.1 LAB L100.1900 150-450 K/mm3 Normal PLT 189 LAB L100.2000 6.2-12.0 fl High MPV 12.2 LAB L100.2100 47-70 % High NEUT% 74.0 LAB L100.2200 19-41 % Low LY% 14.1 LAB L100.2300 0-10 % Normal MONO% 9.6 LAB L100.2400 0-5 % Normal EO% 1.8 LAB L100.2500 0-1 % Normal BASO% 0.1 LAB L100.2550 0.0-0.9 % Normal IM GRAN % 0.400 Result Comment: IG% - Immature Granulocytes (promyelocytes, myelocytes and metamyelocytes) > 1% indicates that a LEFT SHIFT is Present. LAB L100.2620 2.0-7.7 X10 3/uL Normal Absolute Neut 5.8 LAB L100.2720 0.83-4.51 X10 3/ul Normal Absolute Lymph 1.11 Performed By: #### L100.0100 #### [facility] [address] [place], [place], [address] COMPREHENSIVE METABOLIC Collected: 06/27/2018 Status: F Source: [facility] LAZO 10:[address] [facility] REPOSITORY Order Comment: Comments: QFT [id number] TYPE CODE TESTS RESULT OUT OF RANGE REFERENCE UNITS LAB L501.0100 74-106 mg/dL Normal GLU 91 Result Comment: Please note revised GLUCOSE reference range effective 2017. LAB L501.1000 7-18 mg/dL Normal BUN 11 LAB L501.1100 0.55-1.02 mg/dL Normal CREAT,SERUM 0.67 Result Comment: The validity of the calculated GFR AND GFRAA in patients over 70 years has not been determined. Clinical correlation is essential. LAB L501.1110 >60 mL/min Normal EST GFR 106 Result Comment: Non- GFR Calc LAB L501.1115 >60 mL/min Normal EST GFR - AA 128 Result Comment: GFR Calc LAB L501.1300 10-20 RATIO Normal BUN/CRE 16.4 LAB L501.1500 6.4-8.2 g/dL T Normal PROT 7.8 LAB L501.1800 3.2-5.0 g/dL Normal ALB 3.4 LAB L501.1950 2.2-4.2 g/dL High GLOB 4.4 LAB L501.2000 0.9-2.4 RATIO Low A/G 0.8 LAB L501.2200 8.5-10.1 mg/dL CA Normal 9.0 LAB L501.4100 15-37 U/L High AST 89 LAB L501.4305 45-117 U/L High ALK P 119 LAB L501.4405 13-56 U/L High ALT 124 LAB L501.4600 0.20-1.00 mg/dL T Normal BILI 0.50 LAB L501.5300 136-145 mmol/L NA Normal 137 LAB L501.5600 3.5-5.1 mmol/L K Normal 4.0 LAB L501.5900 98-107 mmol/L CL Normal 103 LAB L501.6100 21.0-32.0 mmol/L Normal CO2 26.0 LAB L501.6200 5-15 Normal GAP 8 Performed By: #### L500.4050, L505.7010 #### [facility] [address] [place], [place], [address] RHEUMATOID FACTOR Collected: 06/27/2018 Status: F Source: TOMASA 10:[address] [facility] REPOSITORY Order Comment: Comments: QFT [id number] TYPE CODE TESTS RESULT OUT OF RANGE REFERENCE UNITS LAB L505.7010 <15 IU/mL Normal RHEUMATOID FAC < 10.0 Performed By: #### L500.4050, L505.7010 #### [facility] [address] [place], [place], [address] ANTINUCLEAR ANTIBODIES Collected: 06/27/2018 Status: F Source: TOM[place]A DIRECT 10:[address] [facility] REPOSITORY TYPE CODE TESTS RESULT OUT OF RANGE REFERENCE UNITS LAB L3100.5475 Negative Normal Negative FERNANDO-DIRECT Result Comment: Performed at: [facility] [employer] [id number] Shop Mechanic Helper: Darwin Paz PhD, Phone: [phone] Performed By: #### L3100.5475 #### [facility] (refer to report for specific site) refer to report for address and phone number HEPATITIS B SURFACE Collected: 06/27/2018 Status: F Source: TOM[place] AG 10:[address] [facility] REPOSITORY TYPE CODE TESTS RESULT OUT OF RANGE REFERENCE UNITS LAB L3100.0400 Negative Normal HB Negative SURF AG Result Comment: Performed at: [facility] [id number] Shop Mechanic Helper: Darwin Paz PhD, Phone: [phone] Performed at: [address] [place] [id number] Shop Mechanic Helper: Torsten Muller PhD, Phone: [phone] Performed at: [facility] [address] [id number] Shop Mechanic Helper: Marlin Caldwell MD, Phone: [phone] Performed By: #### L3100.0390, L3100.0528, L3100.0625, L3410.1400, L4600.0100 #### [facility] (refer to report for specific site) refer to report for address and phone number HEP B SURFACE Collected: 06/27/2018 Status: F Source: [place] ANTIBODIES 10:[address] [facility] REPOSITORY TYPE CODE TESTS RESULT OUT OF RANGE REFERENCE UNITS LAB L3100.0528 . Normal Hep B Non Reactive Yvette AB Result Comment: Non Reactive: Inconsistent with immunity, less than 10 mIU/mL Reactive: Consistent with immunity, greater than 9.9 mIU/mL Performed By: #### L3100.0390, L3100.0528, L3100.0625, L3410.1400, L4600.0100 #### [facility] (refer to report for specific site) refer to report for address and phone number HEPATITIS C ANTIBODIES Collected: 06/27/2018 Status: F Source: TOMASA 10:[address] [facility] REPOSITORY TYPE CODE TESTS RESULT OUT OF RANGE REFERENCE UNITS LAB L3100.0650 0.0-0.9 s/co ratio Normal HEP C AB 0.1 Result Comment: Negative: < 0.8 Indeterminate: 0.8 - 0.9 Positive: > 0.9 The CDC recommends that a positive HCV antibody result be followed up with a HCV Nucleic Acid Amplification test ([id number]). Performed By: #### L3100.0390, L3100.0528, L3100.0625, L3410.1400, L4600.0100 #### [facility] (refer to report for specific site) refer to report for address and phone number HLA B27 Collected: 06/27/2018 Status: F Source: TOMASA 10:[address] [facility] REPOSITORY TYPE CODE TESTS RESULT OUT OF RANGE REFERENCE UNITS LAB L3410.1500 . Normal HLA Positive B27 Result Comment: HLA-B*27 Positive This patient is positive for HLA-B*27. This procedure rules out the B*27:06 and 27:09 alleles, which the literature suggests are not associated with spondyloarthropathies. B27 allele interpretation for all loci based on IMGT/HLA database version 3.31.0 This test was developed and its performance characteristics determined by [facility]. It has not been cleared or approved by the Food and Drug Administration. [facility] CLIA ID Number [id number] This test was performed using PCR (Polymerase Chain Reaction)/SSOP (Sequence Specific Oligonucleotide Probes) technique. SBT (Sequence Based Typing) and/or SSP (Sequence Specific Primers) may be used as supplemental methods when necessary. Please contact [facility] Customer Service at if you have any questions. Director of [facility] Laboratory Dr Torsten Muller, PhD Performed By: #### L3100.0390, L3100.0528, L3100.0625, L3410.1400, L4600.0100 #### [facility] (refer to report for specific site) refer to report for address and phone number CCP IGG ANTIBODIES Collected: 06/27/2018 Status: F Source: TOMASA 10:[address] [facility] REPOSITORY TYPE CODE TESTS RESULT OUT OF RANGE REFERENCE UNITS LAB L4600.0100 0-19 units Normal ANTI-CCP 14 [id number] Result Comment: Negative <20 Weak positive 20 - 39 Moderate positive 40 - 59 Strong positive >59 Performed By: #### L3100.0390, L3100.0528, L3100.0625, L3410.1400, L4600.0100 #### [facility] (refer to report for specific site) refer to report for address and phone number MISCELLANEOUS LAB Collected: 06/27/2018 Status: F Source: T[place] PROCEDURE 10:[address] [facility] REPOSITORY Order Comment: Comments: QFT [id number] Test(s) Ordered: QFT [id number] TYPE CODE TESTS RESULT OUT OF RANGE REFERENCE UNITS LAB L801.1541 Normal [facility] LAB TEST Result Comment: TEST RESULT LIMITS QFT-TB Plus (Client Incubated) QuantiFERON Criteria The QuantiFERON-TB Gold Plus result is determined by subtracting the Nil value from either TB antigen (Ag) tube. The mitogen tube serves as a control for the test. QuantiFERON TB1 Ag Value 0.22 IU/mL QuantiFERON TB2 Ag Value 0.20 IU/mL QuantiFERON Nil Value 0.18 IU/mL QuantiFERON Mitogen Value >10.00 IU/mL QuantiFERON-TB Gold Plus Negative Negative The specimen received for QuantiFERON testing was incubated by the ordering institution. Specific procedures outlined in our Directory of Services and in the package insert for the QuantiFERON Gold (In Tube) test must be followed to enable for proper stimulation of cells for the production of interferon gamma. TESTING PERFORMED AT [facility]. ORIGINAL REPORT ON FILE IN LAB CONTAINS ADDITIONAL TEST SITE INFORMATION. Performed By: #### L801.1541 #### [facility] [address] [place], [address] PELVIS 1 OR 2 VIEWS Observed: 06/27/2018 Status: F Source: MAMMOTH 10:[address] [facility] REPOSITORY [facility] Imaging Services [address] [place] [address] Pelvis 1 or 2 Views MR#: [id number] Acct: [id number] Name: EMMA COWART Rep #: [id number] : 1985 F 32 From: Liban Loo DO PCP: JOSSELYN ROBLERO Status: REG CLI Study: Pelvis 1 or 2 Views Date of Exam: 06/27/18 Exam# [id number] Ordering Dr: Bonita Naqvi MD STUDY: X-RAY - PELVIS REASON FOR EXAM: Female, 32 years old. Inflammatory polyarthropathy TECHNIQUE: One view of the pelvis was obtained. COMPARISON: None. FINDINGS: There is a non-specific bowel gas pattern. Normal visualized soft tissue structures. Normal bilateral iliac wings, sacroiliac joints and visualized sacrum. Normal visualized bilateral superior and inferior pubic rami. Normal pubic symphysis. Normal ischial tuberosities. Normal visualized right femoral head. Normal right acetabulum. Normal right hip joint. Normal visualized left femoral head. Normal left acetabulum. Normal left hip joint. RAD/Pelvis 1 or 2 Views IMPRESSION: Normal x-ray examination of the pelvis. Electronically Signed: Liban Loo DO at 10:07 EDT Tel , Service support , CC: JOSSELYN ROBLERO; Bonita Naqvi MD Form Coverer: Signed CHEST PA AND LATERAL Observed: 06/27/2018 Status: F Source: TOMASA 10:[address] [facility] REPOSITORY [facility] Imaging Services [address] [place] [address] Chest PA and Lateral MR#: [id number] Acct: [id number] Name: EMMA COWART Rep #: [id number] : 1985 F 32 From: Liban Loo DO PCP: JOSSELYN ROBLERO Status: REG CLI Study: Chest PA and Lateral Date of Exam: 06/27/18 Exam# [id number] Ordering Dr: Bonita Naqvi MD STUDY: X-RAY CHEST REASON FOR EXAM: Female, 32 years old. Inflammatory polyarthropathy TECHNIQUE: PA and lateral views of the chest. COMPARISON: None. FINDINGS: The lungs are clear and expanded. There is no demonstrated pleural abnormality. Normal size heart. Normal mediastinum and montse. Normal visualized pulmonary arteries. Normal visualized aortic arch and descending thoracic aorta. Normal visualized thoracic spine. Normal visualized ribs, clavicles, and shoulders. There is no demonstrated abnormality of the visualized soft tissue structures of the upper abdomen. RAD/Chest PA and Lateral IMPRESSION: Normal x-ray examination of the chest. Electronically Signed: Liban Loo DO at 10:08 EDT Tel , Service support , CC: JOSSELYN ROBLERO; Bonita Naqvi MD Form Coverer: Signed CNPN Observed: 06/27/2018 Status: COMPLETED Source: [facility]DI[place] 12:00 AM [facility] REPOSITORY Telephone (GASTA5) EMMA COWART ([id number]) 1985 F Date Time Provider Department 06/27/18 EDITH BLACK GASTA5 During your visit today, we recorded the following information about you: Almaz Ho 06/27/2018 11:49 AM Signed Emma Cowart (Self) [phone] ( Patient called to inquire if she can take Embrel for Rheumatoid Arthritis. She would like a rt call. Edith Taylor MD 06/27/2018 4:03 PM Signed Almaz Keith: Can you please return the call, and let her know: ?no problem taking it Thanks Maryse Santana LPN 06/27/2018 4:30 PM Signed Called patient at this time and got no answer. Left message to patient stating ok to take medication. Provided call back number if patient has any questions or concerns. Maryse Santana LPN June 27, 2018 4:30 PM Allergies As of Date: 06/27/2018 Noted Allergy Reaction HYDROCODONE-ACETAMINOPHEN 01/29/2016 4 - Hives 8 - GI Upset MORPHINE 08/24/2016 14 - Other: See Comments Comments: Abdominal pain PENICILLINS 01/28/2008 Date Reviewed: 11/04/2016 Reviewed by: Johanny Pinto Ma - Fully Assessed Reason for Visit: medicatin question [Other] Prescriptions as of 06/27/2018 Sig: LEVOTHYROXINE 100 MCG TABLET Take one daily on empty stoma* ERGOCALCIFEROL (VITAMIN D2) 5* Take 50,000 Units by mouth on* MELOXICAM 7.5 MG TABLET Take 7.5 mg by mouth once sandra* VENLAFAXINE 75 MG TABLET Take 75 mg by mouth three russ* LORAZEPAM 1 MG TABLET Take 1 mg by mouth every 6 ho* BENZONATATE 100 MG CAPSULE Take 1 capsule by mouth three* PREDNISONE 20 MG TABLET Take 1 tablet by mouth once d* DULOXETINE 60 MG CAPSULE,JADON* Take 1 capsule by mouth twice* * MULTI-VITAMIN ORAL Take by mouth once daily. * ALPRAZOLAM 0.5 MG TABLET as necessary Problem List As Of Date 06/27/2018 Noted Resolved Nonspecific abnormal results of liver function *INVALID FOR*04/09/2015 Morbid obesity (HCC) [E66.01] INVALID FOR* Steatohepatitis, non-alcoholic [K75.81] INVALID FOR* More... Depression [F32.9] INVALID FOR* Chronic low back pain [M54.5, G89.29] INVALID FOR* Sleep apnea [G47.30] INVALID FOR* More... Vitamin D deficiency [E55.9] INVALID FOR* More... Hypothyroidism [E03.9] INVALID FOR* Encounter Status:Closed by EDITH VIEIRA MD on 06/27/18 US ABD SPLEEN -NB Observed: 03/30/2018 Status: F Source: [place] 1:16 PM [facility] [place] REPOSITORY * * *Final Report* * * DATE OF EXAM: Mar 30 2018 1:16PM [facility] 1232 - US ABD SPLEEN -NB / PROCEDURE REASON: Fatty (change of) liver, not elsewhere classified * * * * Physician Interpretation * * * * EXAMINATION: RIGHT UPPER QUADRANT AND SPLEEN ULTRASOUND WITH QUANTITATIVE LIVER STIFFNESS ASSESSMENT (ARFI) ULTRASOUND CLINICAL HISTORY: Hepatic steatosis TECHNIQUE: Sonography of the right upper quadrant , spleen and quantitative liver stiffness assessment (ARFI) was performed. Images were obtained and stored in a permanent archive. MQ: URUQ_1 COMPARISON: None. RESULT: Pancreas: Normal sonographic appearance. Portions obscured: Body and tail Liver: Echotexture: Normal, homogeneous. Echogenicity: Increased Surface contour: Smooth Lesions: None. Biliary: No intrahepatic biliary duct dilation. CBD: 0.7 cm at the hilum. Normal Gallbladder: Absent Right Kidney: No hydronephrosis. Ascites: None. Spleen: Spleen is not enlarged and measures 11.7 cm in sagittal dimension Liver Stiffness Assessment: Despite multiple attempts at ARFI in 3 different locations in the liver, diagnostic ARFI values could not be obtained. IMPRESSION: DIFFUSE HEPATIC STEATOSIS. ARFI VALUES ARE NONDIAGNOSTIC NO SPLENOMEGALY Form Coverer: [facility] Transcribe Date/Time: Mar 30 2018 1:26P Dictated by : EHSAN CRAWFORD MD This examination was interpreted and the report reviewed and electronically signed by: EHSAN CRAWFORD MD on Mar 30 2018 1:32PM EST [id number] US ELASTROGRAPHY LIVER Observed: 03/30/2018 Status: F Source: [place] 1:15 PM [facility] [place] REPOSITORY * * *Final Report* * * DATE OF EXAM: Mar 30 2018 1:15PM [facility] 1199 - US ELASTROGRAPHY LIVER / PROCEDURE REASON: Fatty (change of) liver, not elsewhere classified * * * * Physician Interpretation * * * * EXAMINATION: RIGHT UPPER QUADRANT AND SPLEEN ULTRASOUND WITH QUANTITATIVE LIVER STIFFNESS ASSESSMENT (ARFI) ULTRASOUND CLINICAL HISTORY: Hepatic steatosis TECHNIQUE: Sonography of the right upper quadrant , spleen and quantitative liver stiffness assessment (ARFI) was performed. Images were obtained and stored in a permanent archive. MQ: URUQ_1 COMPARISON: None. RESULT: Pancreas: Normal sonographic appearance. Portions obscured: Body and tail Liver: Echotexture: Normal, homogeneous. Echogenicity: Increased Surface contour: Smooth Lesions: None. Biliary: No intrahepatic biliary duct dilation. CBD: 0.7 cm at the hilum. Normal Gallbladder: Absent Right Kidney: No hydronephrosis. Ascites: None. Spleen: Spleen is not enlarged and measures 11.7 cm in sagittal dimension Liver Stiffness Assessment: Despite multiple attempts at ARFI in 3 different locations in the liver, diagnostic ARFI values could not be obtained. IMPRESSION: DIFFUSE HEPATIC STEATOSIS. ARFI VALUES ARE NONDIAGNOSTIC NO SPLENOMEGALY Form Coverer: [facility] Transcribe Date/Time: Mar 30 2018 1:26P Dictated by : EHSAN CRAWFORD MD This examination was interpreted and the report reviewed and electronically signed by: EHSAN CRAWFORD MD on Mar 30 2018 1:32PM EST [id number] US ABD RIGHT UPPER Observed: 03/30/2018 Status: F Source: [facility] 1:15 PM [facility] REPOSITORY * * *Final Report* * * DATE OF EXAM: Mar 30 2018 1:15PM [facility] 1032 - US ABD RIGHT UPPER QUADRANT / PROCEDURE REASON: Fatty (change of) liver, not elsewhere classified * * * * Physician Interpretation * * * * EXAMINATION: RIGHT UPPER QUADRANT AND SPLEEN ULTRASOUND WITH QUANTITATIVE LIVER STIFFNESS ASSESSMENT (ARFI) ULTRASOUND CLINICAL HISTORY: Hepatic steatosis TECHNIQUE: Sonography of the right upper quadrant , spleen and quantitative liver stiffness assessment (ARFI) was performed. Images were obtained and stored in a permanent archive. MQ: URUQ_1 COMPARISON: None. RESULT: Pancreas: Normal sonographic appearance. Portions obscured: Body and tail Liver: Echotexture: Normal, homogeneous. Echogenicity: Increased Surface contour: Smooth Lesions: None. Biliary: No intrahepatic biliary duct dilation. CBD: 0.7 cm at the hilum. Normal Gallbladder: Absent Right Kidney: No hydronephrosis. Ascites: None. Spleen: Spleen is not enlarged and measures 11.7 cm in sagittal dimension Liver Stiffness Assessment: Despite multiple attempts at ARFI in 3 different locations in the liver, diagnostic ARFI values could not be obtained. IMPRESSION: DIFFUSE HEPATIC STEATOSIS. ARFI VALUES ARE NONDIAGNOSTIC NO SPLENOMEGALY Form Coverer[facility] Transcribe Date/Time: Mar 30 2018 1:26P Dictated by : EHSAN CRAWFORD MD This examination was interpreted and the report reviewed and electronically signed by: EHSAN CRAWFORD MD on Mar 30 2018 1:32PM EST [id number] AMMONIA Collected: 03/24/2018 Status: F Source: [place]AS[place] 9:[address] [facility] REPOSITORY TYPE CODE TESTS RESULT OUT OF RANGE REFERENCE UNITS LAB L503.5510 11-32 umol/L Normal AMMONIA 20.0 Performed By: #### L503.5510 #### [facility] [address] [place], [address] IRON BINDING Collected: 03/24/2018 Status: F Source: [place] CAPACITY,TOTAL 9:[address] [facility] REPOSITORY TYPE CODE TESTS RESULT OUT OF RANGE REFERENCE UNITS LAB L503.6075 250-450 ug/dL Normal TIBC 263 Performed By: #### L503.6075, L503.6150, L503.6550 #### [facility] [address] [place], [address] IRON Collected: 03/24/2018 Status: F Source: [place]AS[place] 9:[address] [facility] REPOSITORY TYPE CODE TESTS RESULT OUT OF RANGE REFERENCE UNITS LAB L503.6150 50-170 ug/dL Normal IRON 51 Result Comment: Slight Hemolysis, Result may be falsely increased. Performed By: #### L503.6075, L503.6150, L503.6550 #### [facility] [address] [place], [address] FERRITIN Collected: 03/24/2018 Status: F Source: MAMMOTH 9:[address] [facility] REPOSITORY TYPE CODE TESTS RESULT OUT OF RANGE REFERENCE UNITS LAB L503.6550 8-252 ng/mL Normal FERRITIN 173 Performed By: #### L503.6075, L503.6150, L503.6550 #### [facility] [address] [place], [place], [address] CBC W/DIFF, AUTOMATED Collected: 03/15/2018 Status: F Source: MAMMOTH 7:[address] [facility] REPOSITORY TYPE CODE TESTS RESULT OUT OF RANGE REFERENCE UNITS LAB L100.1000 4.4-11.0 K/mm3 Normal WBC 9.4 LAB L100.1200 4.2-5.4 M/mm3 Normal RBC 4.93 LAB L100.1300 12.0-15.0 g/dl Normal HGB 14.1 LAB L100.1400 37-47 % Normal HCT 42.6 LAB L100.1500 81-99 fL Normal MCV 86.4 LAB L100.1600 27.0-32.0 pg Normal MCH 28.6 LAB L100.1700 32-36 g/gl Normal MCHC 33.1 LAB L100.1810 11.6-14.6 % Normal RDW CV 14.3 LAB L100.1820 35.1-43.9 fl High RDW SD 44.8 LAB L100.1900 150-450 K/mm3 Normal PLT 206 LAB L100.2000 6.2-12.0 fl High MPV 12.5 LAB L100.2100 47-70 % Normal NEUT% 66.2 LAB L100.2200 19-41 % Normal LY% 24.4 LAB L100.2300 0-10 % Normal MONO% 6.9 LAB L100.2400 0-5 % Normal EO% 2.1 LAB L100.2500 0-1 % Normal BASO% 0.1 LAB L100.2550 0.0-0.9 % Normal IM GRAN % 0.300 Result Comment: IG% - Immature Granulocytes (promyelocytes, myelocytes and metamyelocytes) > 1% indicates that a LEFT SHIFT is Present. LAB L100.2620 2.0-7.7 X10 3/uL Normal Absolute Neut 6.2 LAB L100.2720 0.83-4.51 X10 3/ul Normal Absolute Lymph 2.29 Performed By: #### L100.0100 #### [facility] [address] [place], [place], [address] COMPREHENSIVE METABOLIC Collected: 03/15/2018 Status: F Source: [facility] 7:[address] [facility] REPOSITORY TYPE CODE TESTS RESULT OUT OF RANGE REFERENCE UNITS LAB L501.0100 74-106 mg/dL High GLU 116 Result Comment: Fasting Glucose result from 100 to 125 mg/dL suggests IMPAIRED HOMEOSTASIS per A.D.A. criteria. Please note revised GLUCOSE reference range effective 2017. LAB L501.1000 7-18 mg/dL Normal BUN 9 LAB L501.1100 0.55-1.02 mg/dL Normal CREAT,SERUM 0.75 Result Comment: The validity of the calculated GFR AND GFRAA in patients over 70 years has not been determined. Clinical correlation is essential. LAB L501.1110 >60 mL/min Normal EST GFR 93 Result Comment: Non- GFR Calc LAB L501.1115 >60 mL/min Normal EST GFR - AA 113 Result Comment: GFR Calc LAB L501.1300 10-20 RATIO Normal BUN/CRE 12.0 LAB L501.1500 6.4-8.2 g/dL T Normal PROT 7.3 LAB L501.1800 3.2-5.0 g/dL Normal ALB 3.2 LAB L501.1950 2.2-4.2 g/dL Normal GLOB 4.1 LAB L501.2000 0.9-2.4 RATIO Low A/G 0.8 LAB L501.2200 8.5-10.1 mg/dL CA Normal 8.6 LAB L501.4100 15-37 U/L High AST 68 LAB L501.4305 45-117 U/L High ALK P 121 LAB L501.4405 13-56 U/L High ALT 123 LAB L501.4600 0.20-1.00 mg/dL T Normal BILI 0.50 LAB L501.5300 136-145 mmol/L NA Normal 141 LAB L501.5600 3.5-5.1 mmol/L K Normal 4.0 LAB L501.5900 98-107 mmol/L CL Normal 106 LAB L501.6100 21.0-32.0 mmol/L Normal CO2 28.0 LAB L501.6200 5-15 Normal GAP 7 Performed By: #### L500.4050, L500.4100, L501.9520, L506.0400 #### [facility] [address] [facility] [place], [place], [address] LIPID PROFILE Collected: 03/15/2018 Status: F Source: [place] 7:[address] [facility] REPOSITORY TYPE CODE TESTS RESULT OUT OF RANGE REFERENCE UNITS LAB L501.4900 200 mg/dL High CHOL 208 Result Comment: <200 mg/dL Desirable 200-240 mg/dL Borderline >240 mg/dL High Risk LAB L501.5000 mg/dL Normal TRIG 120 Result Comment: The drugs N-Acetylcysteine and Metamizole may falsely depress this assay. Serum Triglycerides Reference Interval Normal <150 mg/dL Borderline high 150 - 199 mg/dL High 200 - 499 mg/dL Very High > or = 500 mg/dL LAB L501.6400 mg/dL Normal HDL 42 Result Comment: The drugs N-Acetylcysteine and Metamizole may falsely depress this assay. Reference Range HDL <40 mg/dL Low HDL Cholesterol HDL >or= 60 mg/dL High HDL Cholesterol LAB L501.6500 0-130 mg/dL High LDL 142 LAB L501.6600 5-40 mg/dL Normal VLDL 24 Performed By: #### L500.4050, L500.4100, L501.9520, L506.0400 #### [facility] [address] [facility] [place], [place], [address] THYROID STIM HORMONE Collected: 03/15/2018 Status: F Source: [place] (TSH) 7:[address] [facility] REPOSITORY TYPE CODE TESTS RESULT OUT OF RANGE REFERENCE UNITS LAB L501.9520 0.358-3.74 uIU/mL Normal TSH 1.43 Performed By: #### L500.4050, L500.4100, L501.9520, L506.0400 #### [facility] [address] [place], [address] T4 FREE DIRECT Collected: 03/15/2018 Status: F Source: [place] 7:[address] [facility] REPOSITORY TYPE CODE TESTS RESULT OUT OF RANGE REFERENCE UNITS LAB L506.0400 0.76-1.46 ng/dL Normal T4 FREE 1.07 DIRECT Performed By: #### L500.4050, L500.4100, L501.9520, L506.0400 #### [facility] [address] [place], [address] 12 LEAD ELECTROCARDIOGRAM Observed: 11/13/2017 Status: F Source: [place] 1:[address] [facility] REPOSITORY [facility] Cardiovascular Services [address] [place] [address] 12 Lead EKG 11/10/17 1511 MR#: [id number] Acct: [id number] Name: EMMA COWART Rep #: [id number] : 1985 32 From: Derrick Mclaughlin MD Attending Dr: Status: DEP ER Ordering Dr: Anam Garcia MD Date: 11/10/17 Location: ED Sex: F C Admitted: Test Reason : SOB Blood Pressure : / mmHG Vent. Rate : 069 BPM Atrial Rate : 069 BPM P-R Int : 154 ms QRS Dur : 076 ms QT Int : 436 ms P-R-T Axes : 056 015 026 degrees QTc Int : 467 ms Normal sinus rhythm with sinus arrhythmia Normal ECG Confirmed by DERRICK MCLAUGHLIN ([id number]), editor & co founder KEVIN QUESADA ([id number]) on 11/13/2017 1:32:25 PM Referred By: SHAYLEE Confirmed By:DERRICK MCLAUGHLIN 11/13/17 1332 Date Derrick Mclaughlin MD CC: JOSSELYN ROBLERO; Anam Garcia MD Signed EMERGENCY DEPARTMENT Observed: 11/10/2017 Status: F Source: [place] SUMMARY 5:[address] [facility] REPOSITORY [facility] Medical Records Department [address] [place] [address] Emergency Department Summary 11/10/17 1702 MR#: [id number] Acct: [id number] Name: EMMA COWART Rep #: [id number] : 1985 32 From: Anam Garcia MD PCP: JOSSELYN ROBLERO Status: REG ER - ER Visit Summary Date of Service: 11/10/17 Chief Complaint: Shortness of breath and palpitations for approximately 2 weeks. History of Present Illness: The patient is a 32 F Zentz with chief complaint of shortness of breath palpation for approximate 2 weeks. Symptoms are intermittent. She has no history of PE or DVT or any risk factors. She does have history of alpha- 1 antitrypsin deficiency involving her liver. She presented to the emergency room on 12. She apparently left. Patient was questioned regarding this and she states she did leave because she had been waiting and others were taken back before her. She denies fever, chills night sweats. She denies double vision, blurred vision loss of vision or any other symptoms. Drainage, earache or sore throat. She does complain of slight cough. She is a non-smoker. She denies any chest pain of any type. She denies leg pain, swelling discoloration. She has no history of PE or DVT or any risk factors. She denies any GI or symptoms. She denies rash. Denies trauma. She has not taken any mqzy-jku-lhwwxmo medications other than Mucinex. Physical Examination: Vital signs are noted and remarkable for blood pressure 144/82. BMI is 60.8. Head is atraumatic normocephalic. Pupils are equal round reactive. Extraocular muscles are intact. TMs are pearly white with landmarks noted. Nares patent with no drainage. Posterior pharynx without erythema or exudate. Uvula is midline. There is no dysphonia or dysphasia. Trachea is midline. There is no stridor with auscultation of the neck. Heart is regular without murmur, gallop or rub. S1 and S2 are normal. Lungs are clear to auscultation with good movement of air bilaterally. There is no reproducible chest pain. Abdomen is soft nontender. Limited exam secondary to body habitus. There is no asymmetry, swelling, discoloration, leg vein distention, palpable cords or tenderness along the distribution of the deep venous system. Patient is alert and oriented 3. Motor is 5 over 5. Sensory is intact. DTRs are symmetric with no clonus or Babinski sign. Cranial 2 through 12 are intact. Cerebellar testing is normal. Test Results: EKG was obtained and reveals a sinus rhythm rate of 69 and is normal. Chest x-ray was interpreted by me as negative. Electrolyte panel is unremarkable. CBC is unremarkable. Because she complains of hot intolerance and his history of hypothyroidism and her levothyroxine dose has not been assessed recently a TSH level was obtained and is normal. Emergency Department Course and Treatment: To evaluate patient's complaint palpitation EKG was obtained and placed on a monitor. There is been no ectopy or irregularity. Chest x-ray obtained because she complained of dyspnea and this is unremarkable. Electrode panel was obtained to evaluate potassium since she complains of palpitations. As aforementioned TSH was obtained because of complaining of hot intolerance. Treatment Plan: Form for workup was unremarkable. She has been instructed to follow-up with her primary care physician Dr. Hernandez Disposition: Discharge to home Impression: 1. Palpitations unknown etiology 2. Dyspnea unknown etiology This note was generated with PA Semi dictation software. It may contain incorrect words, spelling, and punctuation that were not noted in review of the chart prior to signing ED Disposition - Plan for ED Patient: Disposition: Home or Assisted Living Chief Complaint: Shortness of Breath Instructions: ED Palpitations, ED Dyspnea Shortness of Breath Referrals: Josselyn Roblero [Primary Care Provider] - 3-5 Days What to do if you have Problems For any increased pain, shortness of breath, bleeding, nausea or vomiting, chest pain, or any unexpected problems, contact your Primary Care Provider. Call [facility] ([phone]) or report to the closest Emergency Room. Call 911 if necessary. 11/10/17 7103 <Electronically signed by Anam Garcia MD> Date Anam Marino Signature (If Indicated): Date CC: JOSSELYN ROBLERO BASIC METABOLIC Collected: 11/10/2017 Status: F Source: [place] PROFILE (BMP) 3:[address] [facility] REPOSITORY TYPE CODE TESTS RESULT OUT OF RANGE REFERENCE UNITS LAB L501.0100 74-106 mg/dL Normal GLU 85 Result Comment: Please note revised GLUCOSE reference range effective 2017. LAB L501.1000 7-18 mg/dL Normal BUN 7 LAB L501.1100 0.55-1.02 mg/dL Normal CREAT,SERUM 0.69 Result Comment: The validity of the calculated GFR AND GFRAA in patients over 70 years has not been determined. Clinical correlation is essential. LAB L501.1110 >60 mL/min Normal EST GFR 103 Result Comment: Non- GFR Calc LAB L501.1115 >60 mL/min Normal EST GFR - AA 125 Result Comment: GFR Calc LAB L501.1255 ml/min Normal Estimated CRCL 103.38 LAB L501.1300 10-20 RATIO BUN/CRE Normal 10.1 LAB L501.2200 8.5-10 mg/dL .1 CA Normal 8.5 LAB L501.5300 136-14 mmol/L 5 NA Normal 139 LAB L501.5600 3.5-5. mmol/L 1 K Normal 3.9 LAB L501.5900 98-107 mmol/L CL Normal 105 LAB L501.6100 21.0-3 mmol/L 2.0 CO2 Normal 28.0 LAB L501.6200 5-15 GAP Normal 6 Performed By: #### L500.2500 #### [facility] [address] [place], [address] CBC W/DIFF, AUTOMATED Collected: 11/10/2017 Status: F Source: [place] 3:[address] [facility] REPOSITORY TYPE CODE TESTS RESULT OUT OF RANGE REFERENCE UNITS LAB L100.1000 4.4-11.0 K/mm3 High WBC 11.7 LAB L100.1200 4.2-5.4 M/mm3 Normal RBC 4.88 LAB L100.1300 12.0-15.0 g/dl Normal HGB 13.5 LAB L100.1400 37-47 % Normal HCT 41.7 LAB L100.1500 81-99 fL Normal MCV 85.5 LAB L100.1600 27.0-32.0 pg Normal MCH 27.7 LAB L100.1700 32-36 g/gl Normal MCHC 32.4 LAB L100.1810 11.6-14.6 % Normal RDW CV 14.2 LAB L100.1820 35.1-43.9 fl Normal RDW SD 43.9 LAB L100.1900 150-450 K/mm3 Normal PLT 283 LAB L100.2000 6.2-12.0 fl Normal MPV 10.7 LAB L100.2100 47-70 % Normal NEUT% 66.6 LAB L100.2200 19-41 % Normal LY% 24.8 LAB L100.2300 0-10 % Normal MONO% 6.9 LAB L100.2400 0-5 % Normal EO% 1.5 LAB L100.2500 0-1 % Normal BASO% 0.1 LAB L100.2550 0.0-0.9 % Normal IM GRAN % 0.100 Result Comment: IG% - Immature Granulocytes (promyelocytes, myelocytes and metamyelocytes) > 1% indicates that a LEFT SHIFT is Present. LAB L100.2620 2.0-7.7 X10 3/uL High Absolute Neut 7.8 LAB L100.2720 0.83-4.51 X10 3/ul Normal Absolute Lymph 2.89 Performed By: #### L100.0100 #### [facility] [address] [place], [place], [id number] THYROID STIM HORMONE Collected: 11/10/2017 Status: F Source: [place] (TSH) 3:[address] [facility] REPOSITORY TYPE CODE TESTS RESULT OUT OF RANGE REFERENCE UNITS LAB L501.9520 0.358-3.74 uIU/mL Normal TSH 0.99 Performed By: #### L501.9520 #### [facility] [address] [place], [address] CHEST PA AND LATERAL Observed: 11/10/2017 Status: F Source: [place] 2:[address] [facility] REPOSITORY [facility] Imaging Services [address] [place] [address] Chest PA and Lateral MR#: [id number] Acct: [id number] Name: EMMA COWART Rep #: [id number] : 1985 F 32 From: Kiran Cadena MD PCP: JOSSELYN ROBLERO Status: REG ER Study: Chest PA and Lateral Date of Exam: 11/10/17 Exam# [id number] Ordering Dr: Anam Garcia MD STUDY: X-RAY CHEST REASON FOR EXAM: Female, 32 years old. Chest pain and shortness of breath x2 weeks TECHNIQUE: PA and lateral views of the chest. COMPARISON: Prior study of 11/06/2017 FINDINGS: surveillance monitor leads are present. The lungs are clear and expanded. There is no demonstrated pleural abnormality. Normal size heart. Normal mediastinum and montse. Normal visualized pulmonary arteries. Normal visualized aortic arch and descending thoracic aorta. Normal visualized thoracic spine. Normal visualized ribs, clavicles, and shoulders. There is no demonstrated abnormality of the visualized soft tissue structures of the upper abdomen. RAD/Chest PA and Lateral IMPRESSION: Normal x-ray examination of the chest. Electronically Signed: Kiran Cadena MD at 16:09 EDT , Service support , CC: JOSSELYN ROBLERO; Anam Garcia MD Form Coverer: Signed 12 LEAD ELECTROCARDIOGRAM Observed: 11/08/2017 Status: F Source: [place] 3:[address] [facility] REPOSITORY [facility] Cardiovascular Services [address] [place] [address] 12 Lead EKG 11/06/17 1849 MR#: [id number] Acct: [id number] Name: EMMA COWART Rep #: [id number] : 1985 32 From: Rafael Shipley MD Attending Dr: Status: DEP ER Ordering Dr: Provider, Ed P. Date: 11/06/17 Location: ED Sex: F C Admitted: Test Reason : PALP Blood Pressure : / mmHG Vent. Rate : 095 BPM Atrial Rate : 095 BPM P-R Int : 142 ms QRS Dur : 074 ms QT Int : 346 ms P-R-T Axes : 052 003 037 degrees QTc Int : 434 ms Normal sinus rhythm Normal ECG Confirmed by VIOLETTA COPELAND, RAFAEL ([id number]), editor & co founder KEVIN QUESADA ([id number]) on 11/08/2017 3:32:42 PM Referred By: Confirmed By:RAFAEL SHIPLEY MD 11/08/17 1532 Date Rafael Shipley MD CC: ED PHYSICIAN PROVIDER; JOSSELYN ROBLERO Signed CBC W/DIFF, AUTOMATED Collected: 11/06/2017 Status: F Source: [place]OTH 6:[address] [facility] REPOSITORY TYPE CODE TESTS RESULT OUT OF RANGE REFERENCE UNITS LAB L100.1000 4.4-11.0 K/mm3 High WBC 12.4 LAB L100.1200 4.2-5.4 M/mm3 Normal RBC 5.15 LAB L100.1300 12.0-15.0 g/dl Normal HGB 14.5 LAB L100.1400 37-47 % Normal HCT 43.5 LAB L100.1500 81-99 fL Normal MCV 84.5 LAB L100.1600 27.0-32.0 pg Normal MCH 28.2 LAB L100.1700 32-36 g/gl Normal MCHC 33.3 LAB L100.1810 11.6-14.6 % Normal RDW CV 14.4 LAB L100.1820 35.1-43.9 fl High RDW SD 44.7 LAB L100.1900 150-450 K/mm3 Normal PLT 301 LAB L100.2000 6.2-12.0 fl Normal MPV 10.6 LAB L100.2100 47-70 % Normal NEUT% 60.1 LAB L100.2200 19-41 % Normal LY% 31.0 LAB L100.2300 0-10 % Normal MONO% 6.0 LAB L100.2400 0-5 % Normal EO% 2.6 LAB L100.2500 0-1 % Normal BASO% 0.1 LAB L100.2550 0.0-0.9 % Normal IM GRAN % 0.200 Result Comment: IG% - Immature Granulocytes (promyelocytes, myelocytes and metamyelocytes) > 1% indicates that a LEFT SHIFT is Present. LAB L100.2620 2.0-7.7 X10 3/uL Normal Absolute Neut 7.5 LAB L100.2720 0.83-4.51 X10 3/ul Normal Absolute Lymph 3.85 Performed By: #### L100.0100, L500.2500, L501.4010 #### [facility] [address] [place], [place], [address] BASIC METABOLIC Collected: 11/06/2017 Status: F Source: M[place]MOTH PROFILE (BMP) 6:[address] [facility] REPOSITORY Order Comment: 'TROP' Serial specimen #1, #2, #3, or #4: 1 TYPE CODE TESTS RESULT OUT OF RANGE REFERENCE UNITS LAB L501.0100 74-106 mg/dL Normal GLU 105 Result Comment: Fasting Glucose result from 100 to 125 mg/dL suggests IMPAIRED HOMEOSTASIS per A.D.A. criteria. Please note revised GLUCOSE reference range effective 2017. LAB L501.1000 7-18 mg/dL Normal BUN 9 LAB L501.1100 0.55-1.02 mg/dL Normal CREAT,SERUM 0.71 Result Comment: The validity of the calculated GFR AND GFRAA in patients over 70 years has not been determined. Clinical correlation is essential. LAB L501.1110 >60 mL/min Normal EST GFR 100 Result Comment: Non- GFR Calc LAB L501.1115 >60 mL/min Normal EST GFR - AA 121 Result Comment: GFR Calc LAB L501.1255 ml/min Normal Estimated CRCL 100.46 LAB L501.1300 10-20 RATIO BUN/CRE Normal 12.7 LAB L501.2200 8.5-10 mg/dL .1 CA Normal 8.9 LAB L501.5300 136-14 mmol/L 5 NA Normal 139 LAB L501.5600 3.5-5. mmol/L 1 K Normal 3.6 LAB L501.5900 98-107 mmol/L CL Normal 106 LAB L501.6100 21.0-3 mmol/L 2.0 CO2 Normal 27.0 LAB L501.6200 5-15 GAP Normal 6 Performed By: #### L100.0100, L500.2500, L501.4010 #### [facility] [address] [facility] [place], [address] TROPONIN-I Collected: 11/06/2017 Status: F Source: M[place]MOTH 6:[address] [facility] REPOSITORY Order Comment: 'TROP' Serial specimen #1, #2, #3, or #4: 1 TYPE CODE TESTS RESULT OUT OF RANGE REFERENCE UNITS LAB L501.4010 <0.06 ng/mL Normal < 0.02 TROPONIN-I Result Comment: TROPONIN-I EXPECTED VALUES <0.05 NEGATIVE 0.06 - 0.59 AT RISK OF NH > OR = 0.60 SUGGEST NH Performed By: #### L100.0100, L500.2500, L501.4010 #### [facility] [address] [facility] [place], [address] CHEST 1 VIEW Observed: 11/06/2017 Status: F Source: MAMMOTH (PORTABLE) 6:[address] [facility] REPOSITORY [facility] Imaging Services [address] [place] [id number] Chest 1 View (Portable) MR#: [id number] Acct: [id number] Name: SOFYAEMMA J Rep #: [id number] : 1985 F 32 From: Jeffrey Floyd DO PCP: JOSSELYN ROBLERO Status: PRE ER Study: Chest 1 View (Portable) Date of Exam: 11/06/17 Exam# [id number] Ordering Dr: Jorge, Ed P. STUDY: X-RAY CHEST REASON FOR EXAM: Female, 32 years old. Chest pain TECHNIQUE: Single frontal view COMPARISON: March 24, 2017. FINDINGS: The lungs are not fully expanded. There is no demonstrated pleural abnormality. Normal size heart. Normal mediastinum and montse. Normal visualized pulmonary arteries. Normal visualized aortic arch and descending thoracic aorta. Normal visualized thoracic spine. Normal visualized ribs, clavicles, and shoulders. There is no demonstrated abnormality of the visualized soft tissue structures of the upper abdomen. RAD/Chest 1 View (Portable) IMPRESSION: Normal x-ray examination of the chest. Electronically Signed: Jeffrey Floyd DO at 19:29 EDT Tel [phone], Service support , CC: ED PHYSICIAN PROVIDER; JOSSELYN ROBLERO Form Coverer: Signed US TRANSVAGINAL NON-OB Observed: 11/02/2017 Status: F Source: [facility] 1:00 PM [facility] REPOSITORY Exam Date/Time: 11/02/2017 13:48 EST Reason for Exam: PELVIC PAIN;Pelvic pain Report ULTRASOUND PELVIS ABDOMINAL, TRANSVAGINAL AND COLOR FLOW: REASON FOR EXAM: Pelvic pain. FINDINGS: Transabdominal and transvaginal probe scanning of the pelvis reveals no uterine major enlargement. There was limitation due to large body habitus. Uterus measures 89 mm x 40 mm x 29 mm. No endometrial thickening or fluid collection is seen. The endometrial stripe measures 4 mm. No adnexal mass, ovarian cystic change, or prominent cul-de-sac fluid is identified. Right ovary is seen measuring 28 mm by 19 x 18 mm, while the left ovary measures 37 mm x 22 x 20 mm. Both ovaries display color flow without evidence of torsion. Bilateral linear hyperechoic foci consistent with Essure tubal occlusion devices are noted. IMPRESSION: No pelvic mass, free fluid, evidence of ovarian torsion, or focal uterine abnormality. Bilateral Essure tubal occlusion devices are present. FINAL REPORT Dictated: 11/02/2017 4:03 pm Espinoza Tolbert DO Signed (Electronic Signature): 11/02/2017 4:03 pm Signed by: Espinoza Tolbert DO Technologist: DAVID PELVIS NON-OB Observed: 11/02/2017 Status: F Source: [facility] 1:00 PM [facility] REPOSITORY Exam Date/Time: 11/02/2017 13:48 EST Reason for Exam: PELVIC PAIN;Pelvic pain Report ULTRASOUND PELVIS ABDOMINAL, TRANSVAGINAL AND COLOR FLOW: REASON FOR EXAM: Pelvic pain. FINDINGS: Transabdominal and transvaginal probe scanning of the pelvis reveals no uterine major enlargement. There was limitation due to large body habitus. Uterus measures 89 mm x 40 mm x 29 mm. No endometrial thickening or fluid collection is seen. The endometrial stripe measures 4 mm. No adnexal mass, ovarian cystic change, or prominent cul-de-sac fluid is identified. Right ovary is seen measuring 28 mm by 19 x 18 mm, while the left ovary measures 37 mm x 22 x 20 mm. Both ovaries display color flow without evidence of torsion. Bilateral linear hyperechoic foci consistent with Essure tubal occlusion devices are noted. IMPRESSION: No pelvic mass, free fluid, evidence of ovarian torsion, or focal uterine abnormality. Bilateral Essure tubal occlusion devices are present. FINAL REPORT Dictated: 11/02/2017 4:03 pm Espinoza Tolbert DO Signed (Electronic Signature): 11/02/2017 4:03 pm Signed by: Espinoza Tolbert DO Technologist: DAVID PROGRESS Observed: 09/25/2017 Status: COMPLETED Source: [facility] 10:09 AM [facility] REPOSITORY HNO ID: [id number] Author: Edith Daley Service: (none) Author Type: Physician Type: Progress Notes Filed: 09/25/2017 11:48 AM Note Text: 32-year-old woman referred for further evaluation of liver disease by Dr. Josselyn Roblero MD ? Remainder of past medical history is significant for: 1. h/o cholelithiasis, s/p cholecystectomy 2. h/o lactase deficiency 3. h/o GERD 4. h/o IBS 5. G8T8-6-68, s/p CS x 1 6. h/o obesity; max weight = 309# in 08/03 ? 7. s/p T+A 8. h/o depression, on Rx x 1 yr w Effexor 9. H/o tobacco abuse 10. H/o Konrad thyroiditis 11. h/o cardiac dysrhythmia 12. S/p tonsillectomy 13. S/p cholecystectomy 14. s/p tubal ligation 15. S/p laparoscopic uterine nerve ablation 16. H/o BRISEYDA - not using CPAP due to claustrophobia Liver history is significant for a h/o abnl LFTs, fatty liver on imaging, MZ - last seen 06/10/2010 Had been prev evaluated, dating to 03/03/2008 - including liver biopsy -pathology FINAL DIAGNOSIS LIVER, NEEDLE BIOPSY - MILD STEATOSIS AND MILD PORTAL INFLAMMATION. SEE COMMENT. LUÍS and special stains are examined. The lobular architecture of the liver is intact, and the trichrome stain demonstrates no fibrosis. The biopsy demonstrates mild macrovesicular fatty change without significant lobular inflammation or ballooning hepatocyte degeneration. Abi bodies are not seen. The portal tracts contain only mild lymphocytic inflammatory cell infiltrates. There is no periportal interface activity. The interlobular bile ducts are intact, and there is no duct damage. The hepatic vasculature appears normal. The iron stain is negative. The PAS/D shows no diagnostic inclusions. -s/p MRCP done 06/14/2010 RESULT: On T1 out of phase imaging, there is minimal decrease in signal intensity of the liver consistent with fatty change. ?There is no intrahepatic biliary dilatation. ?The common bile duct is normal in course and caliber. ?No filling defects are identified within the common bile duct. ? The visualized portions of the pancreatic duct are normal. ?There is no pancreatic mass or cyst. ?There has been cholecystectomy. ? ? There is no abdominal ascites or adenopathy. IMPRESSION: MILD FATTY CHANGE OF THE LIVER. ? NO PANCREATIC LESION OR BILIARY DILATATION. Seen in f/u by Dr Dao 08/25/2016 Per notes IMPRESSIONS AND RECOMMENDATIONS: This is an unfortunate situation. Emma's father has nonalcoholic steatohepatitis and cirrhosis, and is struggling with that. Emma is young, has a very well-established diagnosis of hepatic steatosis. Behaviorally, she has gained 100 pounds in the last 9 months. She has mild elevations of her transaminase component. At this point, I would suggest that we obtain a full hepatic serologic workup to make sure there are no other issues occurring in the liver and to also get an updated imaging study in the form of an ultrasound. I had a long discussion with Emma, how the most important thing that she needs to do for her health is to have a very significant weight loss, and I strongly urged her to consider bariatric surgery. Part of the bariatric workup will include a behavioral health intake, which will be very important for this patient. Unfortunately, given her massive obesity, she is only going to be set up for multiple health issues in the near future, and I relayed that to her. Therefore, at this time, we set her up for a full hepatic serologic workup, repeat imaging with a right upper quadrant sono, and have set her up for an appointment for evaluation at the bariatric center -followed by PCP w serial labs -has been trying to lose weight - started Weight watchers ,but weight plateaued Trying to exercise - prev 3x /week to swim Had recently been concerned about poss that this might be related to A1At deficiency given her father's issues (Deshawn Delatorre) Current Outpatient Prescriptions on File Prior to Visit: levothyroxine (SYNTHROID) 100 mcg tablet Take one daily on empty stomach ergocalciferol, vitamin D2, (VITAMIN D) 50,000 unit capsule Take 50,000 Units by mouth once each week. meloxicam (MOBIC) 7.5 mg tablet Take 7.5 mg by mouth once daily. venlafaxine (EFFEXOR) 75 mg tablet Take 75 mg by mouth three times daily. LORazepam (ATIVAN) 1 mg tablet Take 1 mg by mouth every 6 hours as needed. benzonatate (TESSALON PERLE) 100 mg capsule Take 1 capsule by mouth three times daily as needed for Cough. predniSONE (DELTASONE) 20 mg tablet Take 1 tablet by mouth once daily. Take daily with food. DULoxetine (CYMBALTA) 60 mg capsule Take 1 capsule by mouth twice daily. MULTI-VITAMIN ORAL Take by mouth once daily. ALPRAZolam (XANAX) 0.5 mg ORAL tablet as necessary No current facility-administered medications on file prior to visit. O/E BP 113/64 Pulse 81 Ht 165.1 cm (5' 5) Wt (!) 163.7 kg (361 lb) SpO2 95% BMI 60.07 kg/m2 Body mass index is 60.07 kg/(m2). skin: w+d HEENT: nc/at Chest: clear to A+P CVS: rrr Abd: soft, nt, nd. 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 - but interestingly, no evidence of PAS-positive diastase resistant globules on her liver biopsy Has had mildly, intermittently elevated transaminases on serial follow-up Since last seen, however, has gained an additional ~80 pounds over the course of the last 10 years Long discussion regarding issues She would be interested in pursuing a liver biopsy for definitive diagnosis/staging, and would consider enrolling in a clinical trial Discussed the option of noninvasive assessment a liver fibrosis, as well as the requirements to be considered for bariatric surgery Suggested: ?Twinrix vaccination series, first dose today ?Ultrasound with acoustic radiation force impulse imaging Follow-up on the phone RTC ~3-4 months; if ARFI nondiagnostic, would consider attempt at a fibroscan with CAP probe Edith Taylor MD CNOV Observed: 09/25/2017 Status: COMPLETED Source: [facility] 9:40 AM [facility] REPOSITORY Office Visit (GASTA5) EMMA COWART ([id number]) 1985 F Date Time Provider Department 09/25/17 9:40 AM EDITH BLACK GASTA5 During your visit today, we recorded the following information about you: Pulse Blood pressure Weight Height 81/minute 113/64 163.7 kg 1.651 m Edith Taylor MD 09/25/2017 11:48 AM Signed 32-year-old woman referred for further evaluation of liver disease by Dr. Josselyn Roblero MD ? Remainder of past medical history is significant for: 1. h/o cholelithiasis, s/p cholecystectomy 2. h/o lactase deficiency 3. h/o GERD 4. h/o IBS 5. V9T2-7-70, s/p CS x 1 6. h/o obesity; max weight = 309# in 08/03 ? 7. s/p T+A 8. h/o depression, on Rx x 1 yr w Effexor 9. H/o tobacco abuse 10. H/o Konrad thyroiditis 11. h/o cardiac dysrhythmia 12. S/p tonsillectomy 13. S/p cholecystectomy 14. s/p tubal ligation 15. S/p laparoscopic uterine nerve ablation 16. H/o BRISEYDA - not using CPAP due to claustrophobia Liver history is significant for a h/o abnl LFTs, fatty liver on imaging, MZ - last seen 06/10/2010 Had been prev evaluated, dating to 03/03/2008 - including liver biopsy -pathology FINAL DIAGNOSIS LIVER, NEEDLE BIOPSY - MILD STEATOSIS AND MILD PORTAL INFLAMMATION. SEE COMMENT. HANDamp;E and special stains are examined. The lobular architecture of the liver is intact, and the trichrome stain demonstrates no fibrosis. The biopsy demonstrates mild macrovesicular fatty change without significant lobular inflammation or ballooning hepatocyte degeneration. Abi bodies are not seen. The portal tracts contain only mild lymphocytic inflammatory cell infiltrates. There is no periportal interface activity. The interlobular bile ducts are intact, and there is no duct damage. The hepatic vasculature appears normal. The iron stain is negative. The PAS/D shows no diagnostic inclusions. -s/p MRCP done 06/14/2010 RESULT: On T1 out of phase imaging, there is minimal decrease in signal intensity of the liver consistent with fatty change. ?There is no intrahepatic biliary dilatation. ?The common bile duct is normal in course and caliber. ?No filling defects are identified within the common bile duct. ? The visualized portions of the pancreatic duct are normal. ?There is no pancreatic mass or cyst. ?There has been cholecystectomy. ? ? There is no abdominal ascites or adenopathy. IMPRESSION: MILD FATTY CHANGE OF THE LIVER. ? NO PANCREATIC LESION OR BILIARY DILATATION. Seen in f/u by Dr Dao 08/25/2016 Per notes IMPRESSIONS AND RECOMMENDATIONS: This is an unfortunate situation. Emma's father has nonalcoholic steatohepatitis and cirrhosis, and is struggling with that. Emma is young, has a very well-established diagnosis of hepatic steatosis. Behaviorally, she has gained 100 pounds in the last 9 months. She has mild elevations of her transaminase component. At this point, I would suggest that we obtain a full hepatic serologic workup to make sure there are no other issues occurring in the liver and to also get an updated imaging study in the form of an ultrasound. I had a long discussion with Emma, how the most important thing that she needs to do for her health is to have a very significant weight loss, and I strongly urged her to consider bariatric surgery. Part of the bariatric workup will include a behavioral health intake, which will be very important for this patient. Unfortunately, given her massive obesity, she is only going to be set up for multiple health issues in the near future, and I relayed that to her. Therefore, at this time, we set her up for a full hepatic serologic workup, repeat imaging with a right upper quadrant sono, and have set her up for an appointment for evaluation at the bariatric center -followed by PCP w serial labs -has been trying to lose weight - started Weight watchers ,but weight plateaued Trying to exercise - prev 3x /week to swim Had recently been concerned about poss that this might be related to A1At deficiency given her father's issues (Deshawn Delatorre) Current Outpatient Prescriptions on File Prior to Visit: levothyroxine (SYNTHROID) 100 mcg tablet Take one daily on empty stomach ergocalciferol, vitamin D2, (VITAMIN D) 50,000 unit capsule Take 50,000 Units by mouth once each week. meloxicam (MOBIC) 7.5 mg tablet Take 7.5 mg by mouth once daily. venlafaxine (EFFEXOR) 75 mg tablet Take 75 mg by mouth three times daily. LORazepam (ATIVAN) 1 mg tablet Take 1 mg by mouth every 6 hours as needed. benzonatate (TESSALON PERLE) 100 mg capsule Take 1 capsule by mouth three times daily as needed for Cough. predniSONE (DELTASONE) 20 mg tablet Take 1 tablet by mouth once daily. Take daily with food. DULoxetine (CYMBALTA) 60 mg capsule Take 1 capsule by mouth twice daily. MULTI-VITAMIN ORAL Take by mouth once daily. ALPRAZolam (XANAX) 0.5 mg ORAL tablet as necessary No current facility-administered medications on file prior to visit. O/E BP 113/64 Pulse 81 Ht 165.1 cm (5' 5ANDquot;) Wt (!) 163.7 kg (361 lb) SpO2 95% BMI 60.07 kg/m2 Body mass index is 60.07 kg/(m2). skin: w+d HEENT: nc/at Chest: clear to A+P CVS: rrr Abd: soft, nt, nd. 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 - but interestingly, no evidence of PAS-positive diastase resistant globules on her liver biopsy Has had mildly, intermittently elevated transaminases on serial follow-up Since last seen, however, has gained an additional ~80 pounds over the course of the last 10 years Long discussion regarding issues She would be interested in pursuing a liver biopsy for definitive diagnosis/staging, and would consider enrolling in a clinical trial Discussed the option of noninvasive assessment a liver fibrosis, as well as the requirements to be considered for bariatric surgery Suggested: ?Twinrix vaccination series, first dose today ?Ultrasound with acoustic radiation force impulse imaging Follow-up on the phone RTC ~3-4 months; if ARFI nondiagnostic, would consider attempt at a fibroscan with CAP probe Edith Taylor MD Referring Provider: SELF [200] Allergies As of Date: 09/25/2017 Noted Allergy Reaction HYDROCODONE-ACETAMINOPHEN 01/29/2016 4 - Hives 8 - GI Upset MORPHINE 08/24/2016 14 - Other: See Comments Comments: Abdominal pain PENICILLINS 01/28/2008 Date Reviewed: 11/04/2016 Reviewed by: Johanny Pinto Ma - Fully Assessed Reason for Visit: Established Patient [175] Cmt: follow up Primary Visit Diagnosis:Fatty liver [K76.0] Order(s):US ELASTOGRAPHY LIVER [[id number]] Order #: [id number] FUTURE US ABD RT UPPER QUADRANT [[id number]] Order #: [id number] FUTURE HEPA/HEPB VACCINE ADULT IM [[id number]] Order #: [id number] Prescriptions as of 09/25/2017 Sig: LEVOTHYROXINE 100 MCG TABLET Take one daily on empty stoma* ERGOCALCIFEROL (VITAMIN D2) 5* Take 50,000 Units by mouth on* MELOXICAM 7.5 MG TABLET Take 7.5 mg by mouth once sandra* VENLAFAXINE 75 MG TABLET Take 75 mg by mouth three russ* LORAZEPAM 1 MG TABLET Take 1 mg by mouth every 6 ho* BENZONATATE 100 MG CAPSULE Take 1 capsule by mouth three* PREDNISONE 20 MG TABLET Take 1 tablet by mouth once d* DULOXETINE 60 MG CAPSULE,JADON* Take 1 capsule by mouth twice* * MULTI-VITAMIN ORAL Take by mouth once daily. * ALPRAZOLAM 0.5 MG TABLET as necessary Problem List As Of Date 09/25/2017 Noted Resolved Nonspecific abnormal results of liver function *INVALID FOR*04/09/2015 Morbid obesity (HCC) [E66.01] INVALID FOR* Steatohepatitis, non-alcoholic [K75.81] INVALID FOR* More... Depression [F32.9] INVALID FOR* Chronic low back pain [M54.5, G89.29] INVALID FOR* Sleep apnea [G47.30] INVALID FOR* More... Vitamin D deficiency [E55.9] INVALID FOR* More... Hypothyroidism [E03.9] INVALID FOR* Disposition: Return in about 3 months (around 12/24/2017). Follow-up and Disposition History Recorded Encounter Status:Closed by RUPAL SUN MA on 09/25/17 ALLERGIES ALLERGIES DATE TYPE / CODE NAME / CODE REACTION SEVERITY SOURCE 09/18/2018 Drug hydrocodone Other Unknown [place] Allergy/416 bitartrate/[id number] Formerly [facility] 755265([place] [address](RXNORM) [facility] ED CT) Repository 09/17/2018 Drug Penicillins/T94486 Hives Unknown [place] Allergy/416 0476(RXNORM) Community 174827([facility] ED CT) Repository 09/17/2018 Drug morphine/[id number] Nausea Unknown [place] Allergy/416 5(RXNORM) Formerly [facility] 873293([facility] ED CT) Repository 08/24/2016 DRUG MORPHINE OTHER: [facility] [place] [address] 581393([facility] Repository ED CT) 01/29/2016 DRUG/150627 HYDROCODONE-ACETAM HIVES [facility] 003(SNOMED INOPHEN [place]) Repository 01/28/2008 Drug PENICILLINS HIVES [facility] Class/34081 Main [place] 1003(SNOMED Repository CT) 01/28/2008 Drug PENICILLINS [facility] Class/78198 Main [place] 1003(SNOMED Repository CT) NG/88859742 HYDROCODONE-ACETAM [facility] 6(SNOMED [facility] Health System CT) Repository NG/07380974 MORPHINE [facility] 6(SNOMED Health System CT) Repository NG/61641340 PENICILLINS [facility] 6(SNOMED Health System CT) Repository Drug/491786 meclizine [place] Jew 003(SNOMED [facility]) System Repository Drug/304077 penicillin V [id number] Jew 003(SNOMED potassium [facility]) System Repository Drug/679825 [place] [facility] 003(SNOMED [facility]) System Repository Food/467748 Fish Tested poitive Jew 000(SNOMED [facility]) System Repository Food/057231 Milk Products Tested positive Jew 000(SNOMED [facility]) System Repository Food/772029 Peanuts [id number] Jew 000(SNOMED [facility]) System Repository Food/959356 Wheat Tested positive Jew 000(SNOMED [facility]) System Repository Drug/918091 Vicodin RASH, Jew 003(SNOMED ITCHINESS, [facility]) NAUSEA System Repository Drug/543610 Wellbutrin SR Rash Jew 003(SNOMED [facility]) System Repository Food/485946 Eggs Tested positive Jew 000(SNOMED [facility]) System Repository ENCOUNTERS ENCOUNTERS ADMIT/DISCHARGE ACCOUNT NUMBER ADMITTING ENCOUNTER LOCATION SOURCE CLASS 09/20/2018 [id number] OMKAR OSWALD Inpatient [facility] [place] Repository 09/18/2018/09/20/19 [id number] TERRI, Inpatient [facility] MEDICAL Repository CENTERBuildi nRoom: 4203Bed: 09/18/2018/09/20/19 [id number] TERRI, Ambulatory [address] Other [place] Repository 09/17/2018/09/18/19 [id number] White, Lorena Ambulatory [place] [address] ding:[place]oom Repository : EBY796Gli: 1 09/17/2018 [id number] White, Lorena Ambulatory BMSBuilding: [place] BMS.[facility] Repository 09/17/2018 [id number] White, Lorena Ambulatory BMSBuilding: [place] BMS.CF.[facility] Repository 09/17/2018 [id number] White, Lorena Ambulatory BMSBuilding: [place] BMS.[facility] Repository 09/17/2018/09/18/19 [id number] Ambulatory [address] Repository 09/17/2018/09/18/19 [id number] Ambulatory [address] Repository 09/17/2018/09/18/19 [id number] Ambulatory [address] Repository 09/17/2018/09/17/19 [id number] Ambulatory [address] Repository 09/10/2018/09/10/19 [id number] GUANAKO [address] ding:[facility] Repository IMRoom: Room 2 09/01/2018/09/01/19 [id number] Emergency [address] ding:ED Repository 08/30/2018/08/30/19 [id number] Emergency [address] ding:ED Repository 06/27/2018 [id number] Ambulatory [facility] ding:MTLAB Repository 03/30/2018/03/30/20 [id number] Ambulatory [address] Repository 03/24/2018 [id number] Ambulatory [facility] ding:LAB.FUT Repository URE 03/20/2018/03/20/20 [id number] Wilda Santillan [address] ding:[facility] Repository IMRoom: Room 4 03/15/2018 [id number] Ambulatory [facility] ding:LAB.FUT Repository URE 11/10/2017/11/11/19 [id number] Emergency [address] ding:ED Repository 11/09/2017/11/10/19 [id number] Ambulatory [address] ding:[place] Repository IM 11/09/2017/11/10/19 [id number] Ambulatory [address] System [facility] Repository om: [id number] 11/06/2017/11/07/19 [id number] [place] [facility] ding:ED Repository 11/02/2017/11/03/19 [id number] Daryl Flynn [address] ding:.[facility] Repository 09/25/2017/09/29/19 [id number] Ambulatory [address] Repository PAYERS PAYERS ENCOUNTER GUARANTOR PAYER SUBSCRIBER SOURCE 09/18/2018 EMMA Jules Primary Insurance:O MAURO [facility] SWITZERDOB: [employer] SWITZERDOB: Health System Number: [id number] Repository LORELEI PARSONS [id number] [address] [place] [address] Date: 54[address]Jhy: () 09/17/2018 EMMA Jules Primary MAURO Croninoster [id number] Insurance:MEDICAL [facility]ERDOB[facility] [id number] Number: Repository [id number]: [phone] [id number] [phone] (HP) Date:1786-75-57PW [address] [place] [address]DN: 09/17/2018 Secondary NOT GIVENUNK [place] Insurance:SELF PAY [facility] Number: Effective Repository Date:2018-09-17 09/17/2018 EMMA Jules Primary MAURO Liang [place] [id number] Insurance:MEDICAL SWITZERDOB: [facility] [id number] Number: Repository [id number]: [phone] [id number] [phone] (HP) Date:8037-77-26TI [address] [address]XZ: 09/17/2018 Secondary NOT GIVENUNK [place] Insurance:SELF PAY [facility] Number: Effective Repository Date:2018-09-17 09/17/2018 EMMA Jules Primary MAURO D [place] [id number] Insurance:MEDICAL SWITZERDOB: [facility] [id number] Number: Repository [address]Zsd: 330 [id number] [phone] (HP) Date:1023-57-96LT [address] [address]FK: 09/17/2018 Secondary NOT GIVENUNK [place] Insurance:SELF PAY [facility] Number: Effective Repository Date:2018-09-17 09/17/2018 EMMA Jules Primary MAURO D [place] [id number] Insurance:MEDICAL SWITZERDOB: [facility] [id number] Number: Repository [address]Vyj: 330 [id number] [phone] (HP) Date:3395-98-92IA [address] [address]BA: 09/17/2018 Secondary NOT GIVENUNK [place] Insurance:SELF PAY [facility] Number: Effective Repository Date:2018-09-17 09/01/2018 EMMA Jules Primary MAURO D [place] [id number] Insurance:MEDICAL SWITZERDOB: [facility] [id number] Number: Repository [address]Kgd: 330 [id number] [phone] (HP) Date:9808-81-69FP [address] [address]RW: 09/01/2018 Secondary NOT GIVENUNK [place] Insurance:SELF PAY [facility] Number: Effective Repository Date:2018-09-01 08/30/2018 EMMA Jules Primary MAURO D [place] [id number] Insurance:MEDICAL SWITZERDOB: [facility] [id number] Number: Repository [address]Iul: 330 [id number] [phone] (HP) Date:6836-21-74UP [address] [place] [address]RM: 08/30/2018 Secondary NOT GIVENUNK [place] Insurance:SELF PAY [facility] Number: Effective Repository Date:2018-08-30 06/27/2018 EMMA J Primary MAURO D [place] [id number] Insurance:MEDICAL SWITZERDOB: [facility] [id number] Number: Repository [address]Nmc: 330 [id number] [phone] (HP) Date:3394-16-99HI [address] [address]FS: 06/27/2018 Secondary NOT GIVENUNK [place] Insurance:SELF PAY [facility] Number: Effective Repository Date:2018-06-27 03/24/2018 EMMA J Primary MAURO D [place] [id number] Insurance:MEDICAL SWITZERDOB: [facility] [id number] Number: Repository [address]Nzh: 330 [id number] [phone] (HP) Date:3116-49-62FK [address] [address]KL: 03/24/2018 Secondary NOT GIVENUNK [place] Insurance:SELF PAY [facility] Number: Effective Repository Date:2018-03-23 03/15/2018 EMMA Jules Primary MAURO D [place] [id number] Insurance:MEDICAL SWITZERDOB: [facility] [id number] Number: Repository [id number]: 330 [id number] [phone] (HP) Date:5516-57-50MI [address] [place] [address]LO: 03/15/2018 Secondary NOT GIVENUNK [place] Insurance:SELF PAY [facility] Number: Effective Repository Date:2018-03-14 11/10/2017 EMMA Jules Primary MAURO Randolph [id number] Insurance:MEDICAL SWITZERDOB: [facility] Lorelei Parsons [facility] [id number] Number: Repository [address]Giq: [phone] [id number] [phone] (HP) Date:4104-58-28KA [address] [place] [address]EU: 11/10/2017 Secondary NOT GIVENUNK [place] Insurance:SELF PAY [facility] Number: Effective Repository Date:2017-11-10 11/09/2017 EMMA Jules Primary MAURO Pillai SWITZERDOB: Insurance:Medical [facility]ZERDOB[facility]: [id number] Effective [address] Repository [address] [place] [address] Date:2017-11-[address] [place] [address] [id number]: [id number] [address]Tel: Name:[facility] () [address] [place] [address] ()Tel: [phone]: [phone] 11/09/2017 EMMA J Primary MAURO Pillai SWITZERDOB: Insurance:1500 SWITZERDOB: [facility] [id number] System [address] Number: Effective [address] Repository [address] [place] [address] Date:2017-11-09[place], [place] [id number]: [id number] [address]Tel: Name:CD:[id number] O (HP) [address] [place] [address] ()Tel: [phone]: ([phone] 11/06/2017 Emma Jules Primary MAURO Liang [place] [id number] Insurance:MEDICAL SWITZERDOB: [facility] Lorelei Parsons [facility] [id number] Number: Repository [id number]: [phone] [id number] [phone] () Date:5776-93-93BA [address] [place] [address]PO: 11/06/2017 Secondary NOT GIVENUNK [place] Insurance:SELF PAY [facility] Number: Effective Repository Date:2017-11-06 11/02/2017 EMMA Jules Primary MAURO Pillai SWITZERDOB: Insurance:Medical SWITZERDOB: [facility] Number: [id number] System [address]LE[address] ASHER Effective 0 [address] Repository [address] [place] [address] Date:2017-09-08[place], [place] [id number]: [id number] [address]Axe: Name:[facility] () [address] [place] [address] ()Tel: [phone]: ([phone]
== END 2018-09-18 16:29 | disposition short-term general hospital (02) ==
LOC: ED 19:55 → PCU 20:50
PROVIDERS: Admitting Provider Family Medicine; Emergency Provider Emergency Medicine; Family Provider Physician Assistant Medical; PCP Physician Assistant Medical; Referring Provider Family Medicine; Visit Provider Student in an Organized Health Care Education/Training Program
DX: R00.0 Tachycardia, unspecified (principal); Z23 Encounter for immunization; K21.9 Gastro-esophageal reflux disease without esophagitis; E66.01 Morbid (severe) obesity due to excess calories; E88.01 Alpha-1-antitrypsin deficiency; G47.33 Obstructive sleep apnea (adult) (pediatric); M45.9 Ankylosing spondylitis of unspecified sites in spine; E06.3 Autoimmune thyroiditis; R07.89 Other chest pain; F41.9 Anxiety disorder, unspecified; F32.9 Major depressive disorder, single episode, unspecified; R00.2 Palpitations; Z68.44 Body mass index [BMI] 60.0-69.9, adult; Z71.3 Dietary counseling and surveillance; Z79.899 Other long term (current) drug therapy; Z87.891 Personal history of nicotine dependence
CPT/HCPCS: 36415; 71046; 80048; 80061; 81001; 83036; 83735; 84443; 84484; 84703; 85025; 85610; 85730; 93005; 93458; 96361; 96374; 99152; 99153; 99218; 99283; J7030; J7040; 90686; A4216; C1769; C1894; G0378; Q9967

== ENCOUNTER 2018-10-02 15:59 | Emergency (ER) | payer OTHER, SELFPAY ==
[2018-09-17 21:16] VITALS: BMI 60.4
[2018-10-02 16:01] VITALS: BP 133/83; PULSE 67; RESP 26; TEMP 37.3; O2SAT 99; BMI 60.0
--- NOTE | 2018-10-02 16:35 | EKG12_ITS ---
Test Reason : CHEST PAIN Blood Pressure : / mmHG Vent. Rate : 060 BPM Atrial Rate : 060 BPM P-R Int : 168 ms QRS Dur : 078 ms QT Int : 412 ms P-R-T Axes : 050 006 041 degrees QTc Int : 412 ms Normal sinus rhythm with sinus arrhythmia Normal ECG Confirmed by WILLARD COPELAND, JYOTHI ([id number]), television news video editor KEVIN QUESADA ([id number]) on 10/08/2018 9:53:50 AM Referred By: MALLIKA Confirmed By:JYOTHI LAMAR MD
--- NOTE | 2018-10-02 16:36 | CT_ITS ---
STUDY: CTA CHEST REASON FOR EXAM: Female, 33 years old. Chest pain. RADIATION DOSAGE (If Supplied By Facility): CTDIvol = ( 33.30 ) mGy, DLP = ( 954.67 ) mGycm TECHNIQUE: The examination was performed with the intravenous administration of 100ML ml of Isovue 370 contrast material. Post-processing of the angiographic images was performed, with multiplanar reformation and 3D reconstruction. Individualized dose optimization techniques were used for this CT. COMPARISON: Chest, September 17, 2018. CTA of the chest, May 25, 2016. FINDINGS: Normal enhancement of the main pulmonary artery and right and left pulmonary arteries. Normal enhancement of the bilateral peripheral pulmonary arteries. There is no demonstrated pulmonary embolism. Normal thoracic aorta and visualized great vessels. There is no demonstrated aortic dissection. Normal heart and pericardium. Normal mediastinum. Normal hilar regions. Normal visualized trachea and bronchi. The lungs are well expanded. Normal pulmonary parenchyma. Normal pleura. Normal chest wall structures. Minimal degenerative changes of the thoracic spine. There is mild hepatosplenomegaly. The remainder of the abdomen is grossly normal. CT/CTA Chest W/WO Contrast IMPRESSION: 1. Normal CTA chest examination, without a demonstrated pulmonary embolism or arterial dissection. 2. Hepatosplenomegaly. Electronically Signed: Jacob Epps DO at 19:41 EST Tel [phone], Service support ,
[2018-10-02 17:02] VITALS: BP 119/82; PULSE 60; RESP 18; O2SAT 98
[2018-10-02] MEDS: 0.9% Normal Saline 1,000 ML 15 ML IV (17:08)
[2018-10-02 17:10] LABS: Anion Gap 5 (5-15); BUN 10 mg/dL (7-18); BUN/Creat Ratio 15.9 RATIO (10-20); Calcium,Total 8.9 mg/dL (8.5-10.1); Chloride 106 mmol/L (98-107); Creatinine, Serum 0.63 mg/dL (0.55-1.02); EST Glomerular Filtration Rate 114 mL/min (>60); Est Glom Filt Rate - Afr Amer 138 mL/min (>60); Estimated Creatinine Clearance 116.68 ml/min; Glucose 83 mg/dL (74-106); Potassium 4.4 mmol/L (3.5-5.1); Sodium Level 137 mmol/L (136-145)
[2018-10-02 17:22] LABS: Absolute Lymphocyte Count 3.28 X10^3/ul (0.83-4.51); Absolute Neutrophil Count 7.9 X10^3/uL (2.0-7.7); Basophil# 0.01 X10^3/uL; Basophil% 0.1 % (0-1); Eosinophil# 0.22 X10^3/uL; Eosinophils% 1.8 % (0-5); Hematocrit 42.9 % (37-47); Hemoglobin 14.1 g/dl (12.0-15.0); Lymphocyte # 3.28 X10^3/ul (4.0); Lymphocyte % 26.5 % (19-41); Mean Corp Hgb Conc 32.9 g/gl (32-36); Mean Corpuscular Hgb 28.4 pg (27.0-32.0); Mean Corpuscular Volume 86.5 fL (81-99); Mean Platelet Vol. 12.2 fl (6.2-12.0); Monocyte# 0.93 X10^3/uL; Monocyte% 7.5 % (0-10); Neutrophil # 7.86 X10^3/uL (2.7-7.7); Neutrophil % 63.6 % (47-70); Platelet Count 218 K/mm3 (150-450); RBC Distribution Width CV 14.4 % (11.6-14.6); RBC Distribution Width SD 44.9 fl (35.1-43.9); Red Blood Count 4.96 M/mm3 (4.2-5.4); White Blood Count 12.4 K/mm3 (4.4-11.0)
[2018-10-02 17:23] LABS: Differential Indicated SCAN CRITERIA MET; POSITIVE COUNT YES; POSITIVE DIFFERENTIAL NO; POSITIVE MORPHOLOGY NO
[2018-10-02 18:05] LABS: Anisocytosis RARE; Platelet Estimate ADEQUATE (ADEQ); Platelet Morphology LARGE
[2018-10-02 19:56] VITALS: BP 110/69; PULSE 49; RESP 18; O2SAT 95
--- NOTE | 2018-10-02 20:27 | US_ITS ---
STUDY: VENOUS DOPPLER ULTRASOUND - BILATERAL LOWER EXTREMITIES REASON FOR EXAM: Female, 33 years old. Chest pain TECHNIQUE: Ultrasound evaluation of the deep vein system to include lee-scale imaging and compression was performed. Lee-scale imaging and Doppler sonographic evaluation, including duplex spectral analysis and qualitative color flow sonography, was performed. COMPARISON: None. FINDINGS: RIGHT LEG Common Femoral Vein: Normal compression, spontaneity and augmentation. Normal color Doppler. Common Femoral Vein/Greater Saphenous Junction: Normal compression, spontaneity and augmentation. Normal color Doppler. Femoral Proximal: Normal compression, spontaneity and augmentation. Normal color Doppler. Femoral Middle: Normal compression, spontaneity and augmentation. Normal color Doppler. Femoral Distal: Normal compression, spontaneity and augmentation. Normal color Doppler. Popliteal Vein: Normal compression, spontaneity and augmentation. Normal color Doppler. Posterior Tibial Vein: Normal compression. Peroneal Vein: Normal compression. LEFT LEG Common Femoral Vein: Normal compression, spontaneity and augmentation. Normal color Doppler. Common Femoral Vein/Greater Saphenous Junction: Normal compression, spontaneity and augmentation. Normal color Doppler. Femoral Proximal: Normal compression, spontaneity and augmentation. Normal color Doppler. Femoral Middle: Normal compression, spontaneity and augmentation. Normal color Doppler. Femoral Distal: Normal compression, spontaneity and augmentation. Normal color Doppler. Popliteal Vein: Normal compression, spontaneity and augmentation. Normal color Doppler. Posterior Tibial Vein: Normal compression. Peroneal Vein: Normal compression. US/Venous Duplex Imag/Wilman Extrem IMPRESSION: No demonstrated deep vein thrombosis. Electronically Signed: Cuca Redmond MD at 21:30 EST Tel , Service support ,
[2018-10-02] MEDS: hydrOXYzine PAM 25 MG Capsule 50 MG PO (21:27)
--- NOTE | 2018-10-02 22:30 | ED.VISSUMM ---
- ER Visit Summary Date of Service: 10/02/18 Chief Complaint: Chest pain History of Present Illness: The patient is a 33 F who presents with chest pain that started on September 29. She describes an aching pulling sensation across the center portion of her chest. Patient was seen in late August after a Holter monitor revealed episodes of V. tach. Patient had a cardiac cath here that was unremarkable and she was transferred to [facility]. Patient states while at [facility] she went back into . tach and was transferred to [facility] for her EP study. She did have an EP study with 4 areas of ablation. Patient is currently on a beta-waldo for heart rate control and is on Eliquis as she did have multiple clots including clotting off her PICC line. Patient denies shortness of breath. She has not had further episodes of tachycardia. She states she had some right leg soreness a few days ago but had an ultrasound that did not reveal blood clot. Physical Examination: Blood pressure is 133/83, temperature 99.1, heart rate 67, respiratory rate 26, pulse ox 99% on room air. Patient sitting upright in bed. She is alert and talkative. She is in no acute distress. Head neck examination normal. Heart is regular rate and rhythm. Lungs sounds are clear. Abdomen is soft nontender. Lower extremity examination reveals 1+ edema that is symmetric. No calf tenderness. Test Results: EKG is sinus at 60 with no sign of acute ischemia. CBC was a white count 12.4 with normal differential. Chemistry studies normal. Troponin negative. Because the patient recently had to catheter procedures, CTA was obtained. There is no evidence of dissection. Initial CTA is read as no evidence of PE. There is later an addendum placed stating that there is a nonocclusive thrombus in the peripheral pulmonary arteries in the right lower lobe. No other PE noted. Patient did have venous ultrasound of both legs obtained at this time that revealed no evidence of DVT. Emergency Department Course and Treatment: Patient remained stable throughout her ED stay. Test results were discussed with patient and her at bedside. At this time I am unsure if this is a partially treated thrombus in her long as she did have multiple clots from her prior lines. She has been started on Eliquis and will continue this. At this time there is no evidence of further DVT in her legs. Patient will follow up closely with primary care physician as well as her header boss. Treatment Plan: [] Disposition: Discharge Impression: Nonocclusive PE This note was generated with [employer] dictation software. It may contain incorrect words, spelling, and punctuation that were not noted in review of the chart prior to signing ED Disposition - Plan for ED Patient: Disposition: Home or Assisted Living Instructions: Pulmonary Embolism Referrals: Joshua Shaikh MD [STAFF PHYSICIAN] - 1-2 Weeks Marjorie Arzate PA [Primary Care Provider] - 3-5 Days Additional Instructions: Your CT scan revealed evidence of a small blood clot in the right lower lung. I cannot tell you if this occurred recently. It is important to be sure you are taking your Eliquis (a blood thinner). The ultrasound of your legs did not reveal any evidence of other clots. Return for any worsening symptoms or concerns.
--- NOTE | 2018-10-02 22:35 | ED.DEP ---
ED Disposition - Plan for ED Patient: Disposition: Home or Assisted Living Instructions: Pulmonary Embolism Referrals: Joshua Shaikh MD [STAFF PHYSICIAN] - 1-2 Weeks Marjorie Arzate PA [Primary Care Provider] - 3-5 Days Additional Instructions: Your CT scan revealed evidence of a small blood clot in the right lower lung. I cannot tell you if this occurred recently. It is important to be sure you are taking your Eliquis (a blood thinner). The ultrasound of your legs did not reveal any evidence of other clots. Return for any worsening symptoms or concerns.
[2018-10-02 22:41] VITALS: BP 108/85; PULSE 50; RESP 15; O2SAT 97
== END 2018-10-02 22:42 | disposition home or self-care (01) ==
PROVIDERS: Emergency Provider Emergency Medicine; Family Provider Physician Assistant Medical; PCP Physician Assistant Medical
DX: I26.99 Other pulmonary embolism without acute cor pulmonale (principal); R60.0 Localized edema; K21.9 Gastro-esophageal reflux disease without esophagitis; I47.2 Ventricular tachycardia; M45.9 Ankylosing spondylitis of unspecified sites in spine; E88.01 Alpha-1-antitrypsin deficiency; E06.3 Autoimmune thyroiditis; Z79.899 Other long term (current) drug therapy; Z87.891 Personal history of nicotine dependence
CPT/HCPCS: 71275; 80048; 84484; 85025; 93005; 93970; 96360; 96361; 99285; J7030; Q9967; A4216

== ENCOUNTER → 2018-11-12 09:37 | Outpatient (CLI) | payer OTHER, SELFPAY ==
[2018-11-12 12:36] LABS: Absolute Lymphocyte Count 2.38 X10^3/ul (0.83-4.51); Absolute Neutrophil Count 5.2 X10^3/uL (2.0-7.7); Basophil# 0.01 X10^3/uL; Basophil% 0.1 % (0-1); Eosinophil# 0.12 X10^3/uL; Eosinophils% 1.4 % (0-5); Hematocrit 45.5 % (37-47); Hemoglobin 14.7 g/dl (12.0-15.0); Lymphocyte # 2.38 X10^3/ul (4.0); Lymphocyte % 28.2 % (19-41); Mean Corp Hgb Conc 32.3 g/gl (32-36); Mean Corpuscular Hgb 27.9 pg (27.0-32.0); Mean Corpuscular Volume 86.5 fL (81-99); Mean Platelet Vol. 12.3 fl (6.2-12.0); Monocyte# 0.72 X10^3/uL; Monocyte% 8.5 % (0-10); Neutrophil % 61.6 % (47-70); Platelet Count 194 K/mm3 (150-450); RBC Distribution Width CV 14.2 % (11.6-14.6); RBC Distribution Width SD 44.5 fl (35.1-43.9); Red Blood Count 5.26 M/mm3 (4.2-5.4); White Blood Count 8.5 K/mm3 (4.4-11.0)
[2018-11-12 12:41] LABS: ALB/GLOB Ratio 0.7 RATIO (0.9-2.4); AST(SGOT) 100 U/L (15-37); Alanine Aminotransfer ALT/SGPT 171 U/L (13-56); Albumin, Serum 3.5 g/dL (3.2-5.0); Alkaline Phosphatase 109 U/L (45-117); Anion Gap 2 (5-15); BUN 18 mg/dL (7-18); BUN/Creat Ratio 22.8 RATIO (10-20); Calcium,Total 8.7 mg/dL (8.5-10.1); Chloride 104 mmol/L (98-107); Creatinine, Serum 0.79 mg/dL (0.55-1.02); EST Glomerular Filtration Rate 88 mL/min (>60); Est Glom Filt Rate - Afr Amer 106 mL/min (>60); Globulin 4.8 g/dL (2.2-4.2); Glucose 103 mg/dL (74-106); Potassium 4.2 mmol/L (3.5-5.1); Protein, Total 8.3 g/dL (6.4-8.2); Sodium Level 136 mmol/L (136-145)
[2018-11-12 12:52] LABS: POSITIVE COUNT NO; POSITIVE DIFFERENTIAL NO; POSITIVE MORPHOLOGY NO
== END ==
PROVIDERS: Family Provider Physician Assistant Medical; PCP Physician Assistant Medical; Referring Provider Internal Medicine Rheumatology; Visit Provider Internal Medicine Rheumatology
DX: M06.4 Inflammatory polyarthropathy (principal); K76.0 Fatty (change of) liver, not elsewhere classified; M51.37 Other intervertebral disc degeneration, lumbosacral region; E88.01 Alpha-1-antitrypsin deficiency; E06.3 Autoimmune thyroiditis; F41.1 Generalized anxiety disorder; G47.33 Obstructive sleep apnea (adult) (pediatric)
CPT/HCPCS: 36415; 80053; 85025

== ENCOUNTER → 2018-11-19 08:50 | Outpatient (CLI) | payer OTHER, SELFPAY ==
[2018-11-19 11:00] LABS: Vitamin B12 716 pg/mL (211-911); Vitamin D,25 Hydroxy 14.3 ng/mL (29.95-100.01)
[2018-11-19 11:18] LABS: Ferritin 143 ng/mL (8-252); Iron 44 ug/dL (50-170); Magnesium 2.1 mg/dL (1.6-2.6); T4 Free Direct 1.25 ng/dL (0.76-1.46); Thyroid Stim Hormone (TSH) 1.04 uIU/mL (0.358-3.74)
== END ==
PROVIDERS: Family Provider Physician Assistant Medical; PCP Physician Assistant Medical; Referring Provider Physician Assistant Medical; Visit Provider Physician Assistant Medical
DX: E03.9 Hypothyroidism, unspecified (principal); R25.2 Cramp and spasm; E55.9 Vitamin D deficiency, unspecified; R53.81 Other malaise
CPT/HCPCS: 36415; 82306; 82607; 82728; 83540; 83735; 84439; 84443

== ENCOUNTER → 2018-12-10 08:33 | Outpatient (CLI) | payer OTHER, SELFPAY ==
[2018-12-10 09:06] LABS: International Normalized Ratio 1.2
== END ==
PROVIDERS: Family Provider Physician Assistant Medical; PCP Physician Assistant Medical; Referring Provider Internal Medicine Cardiovascular Disease; Visit Provider Internal Medicine Cardiovascular Disease
DX: I26.99 Other pulmonary embolism without acute cor pulmonale (principal)
CPT/HCPCS: 36415; 85610

== ENCOUNTER → 2018-12-12 08:41 | Outpatient (CLI) | payer OTHER, SELFPAY ==
[2018-12-12 09:21] LABS: International Normalized Ratio 1.2; Prothrombin Time (Protime)PT. 15.4 SECONDS (11.7-14.9)
== END ==
PROVIDERS: Family Provider Physician Assistant Medical; PCP Physician Assistant Medical; Referring Provider Internal Medicine Cardiovascular Disease; Visit Provider Internal Medicine Cardiovascular Disease
DX: Z86.711 Personal history of pulmonary embolism (principal)
CPT/HCPCS: 36415; 85610

== ENCOUNTER 2018-12-14 14:24 | Emergency (ER) | payer OTHER, SELFPAY ==
[2018-12-14 14:26] VITALS: BP 165/85; PULSE 59; RESP 19; TEMP 36.1; O2SAT 98; BMI 60.5
--- NOTE | 2018-12-14 14:39 | EKG12_ITS ---
Test Reason : PALPS Blood Pressure : / mmHG Vent. Rate : 054 BPM Atrial Rate : 054 BPM P-R Int : 164 ms QRS Dur : 080 ms QT Int : 458 ms P-R-T Axes : 048 020 043 degrees QTc Int : 434 ms Sinus bradycardia Otherwise normal ECG Confirmed by YON COPELAND, GARRICK ([id number]), newspaper copy editor KEVIN QUESADA ([id number]) on 12/18/2018 1:52:38 PM Referred By: SHAYLEE Confirmed By:GARRICK MARVIN MD
--- NOTE | 2018-12-14 14:46 | ED.VIS.GEN ---
History of Present Illness Chief Complaint: Palpitations Informant: Patient Onset: Today Context: Sudden Onset Timing: Intermittent Quality: Flip-flopping and chest Location: Mid chest Current Severity: - - Absent Maximum Severity: Mild Worsened by: Nothing Relieved by: Nothing Associated Symptoms: Difficulty breathing during episode Narrative: Patient with history of sustained ventricular tachycardia who presents after speaking with Dr. Jared Luevano. She has history of sustained V. tach. She is status post ablation at [facility]. She denied diaphoresis. She denied orthostatic symptoms. Presently she has no symptoms. She is on anticoagulant. She had a PE post ablation. Prior similar symptoms: Yes Recent Illness/Hospitalization: No - Past Medical History (1) Ventricular tachycardia Status: Acute (2) Gkroa-1-fufcfrzamie deficiency Status: Chronic (3) Ankylosing spondylitis Status: Chronic (4) GERD (gastroesophageal reflux disease) Status: Chronic (5) Hypothyroidism Status: Chronic (6) Morbid obesity Status: Chronic Past Medical History - Allergies and Home Meds Allergies/Adverse Reactions: Allergies cholecalciferol (vitamin D3) [From Vitamin D3] Allergy (Verified 12/14/18 14:31) Hives ergocalciferol (vitamin D2) [From Vitamin D2] Allergy (Verified 12/14/18 14:31) Hives nadolol Allergy (Verified 12/14/18 14:31) Hives Penicillins Allergy (Verified 12/14/18 14:25) Hives bupropion [From Wellbutrin] Adverse Reaction (Verified 12/14/18 14:31) Unknown hydrocodone bitartrate [From Vicodin] Adverse Reaction (Verified 12/14/18 14:25) Other Pain in stomach, n/v morphine Adverse Reaction (Verified 12/14/18 14:25) Nausea Primary Care Physician: Marjorie Arzate PA [Primary Care Provider] - Prior records reviewed: Yes Surgical History: - - Cholecystectomy, x 1, T+A. Lives: Alone Smoking Status: Former smoker Drugs: None - Family History Maternal Family History: Reports: - - Patient mother is healthy with only home medications reflux medication and regimen for anxiety and depression otherwise denies any history of diabetes, heart disease, cancer. Paternal Family History: Reports: - - Patient father with history of heart disease, status post RI with PCI x2 in 2016. Review of Systems General: Denies: Chills, Fever, Sweats Eyes: Denies: Visual changes - bilaterally, Diplopia ENT: Denies: Rhinorrhea, Sore throat Cardiovascular: Reports: Palpitations. Denies: Chest pain, Heart racing Respiratory: Denies: Dyspnea, Cough, Dyspnea on exertion Gastrointestinal: Denies: Abdominal pain, Nausea, Vomiting, Diarrhea, Melena, Hematochezia Genitourinary: Denies: Dysuria, Hematuria, Frequency Musculoskeletal: Denies: Back pain, Extremity Pain Skin: Denies: Rash, Wounds Neurological: Denies: Headache, Weakness, Numbness Hematologic: Denies: Easy bruising, Easy bleeding Physical Exam Vital Signs/Narrative: Vital Signs Temp Pulse Resp BP Pulse Ox 12/14/18 14:26 97 F L 59 L 19 H 165/85 H 98 Inital Vital Signs reviewed: Yes General: Well nourished, Well developed, Obese, No Acute Distress Head: Normocephalic, Atraumatic Eyes: Perrl, EOMI ENT: Moist mucous membranes, No rhinorrhea Neck: Supple, Nontender Cardiovascular: Regular rate, Regular rhythm, No murmurs, Normal S1, Normal S2 Respiratory: No distress, CTA bilaterally, Chest nontender Abdomen: Soft, Nontender, Nondistended, Normal bowel sounds Back: Nontender, Normal Inspection Extremities: Nontender, No edema Skin: Normal color, No rash. Negative for: Cyanosis, Jaundice Neurological: Alert, Oriented x3, Cranial nerves II-XII grossly intact, Normal Strength, Normal Sensation Psychological: Normal affect, Normal Mood Diagnostic/Tx/Re-eval Laboratory Results 12/14/18 12/14/18 14:57 14:57 WBC 10.6 RBC 5.12 Hgb 14.3 Hct 43.3 MCV 84.6 MCH 27.9 MCHC 33.0 RDW 13.9 RDW Differential 43.0 Plt Count 245 MPV 10.5 Sodium 139 Potassium 3.6 Chloride 107 Carbon Dioxide 27.0 Anion Gap 5 BUN 14 Creatinine 0.74 Estim Creat Clear Calc 99.33 Est GFR (MDRD) Af Amer 114 Est GFR (MDRD) Non-Af 95 BUN/Creatinine Ratio 18.9 Glucose 95 Calcium 8.6 Magnesium 2.0 - Rhythm Strip Rhythm Strip: Sinus Rhythm Rate: 59 Ectopy: None - EKG Initial EKG Interpretation: Sinus Bradycardia - Ventricular rate 54. WV interval, Q episcopalian, QT interval and axis are normal. Normal other than bradycardic - Medical Decision Making With history of V. tach will obtain EKG and placed on monitor. Electrolyte panel and magnesium level were obtained. Will observe and reevaluate. This may have represented PAC, ventricular premature beats nonsustained V. tach, Patient was informed at 1535 that her workup is negative. She has had no ectopy during her ER course. EKG was normal. ED Disposition - Plan for ED Patient: Disposition: Home or Assisted Living Instructions: ED Palpitations Referrals: Marjorie Arzate PA [Primary Care Provider] - As Needed
--- NOTE | 2018-12-14 14:49 | ED.DCSUM_ITS ---
History of Present Illness Chief Complaint: Palpitations Informant: Patient Onset: Today Context: Sudden Onset Timing: Intermittent Quality: Flip-flopping and chest Location: Mid chest Current Severity: - - Absent Maximum Severity: Mild Worsened by: Nothing Relieved by: Nothing Associated Symptoms: Difficulty breathing during episode Narrative: Patient with history of sustained ventricular tachycardia who presents after speaking with Dr. Jared Luevano. She has history of sustained V. tach. She is status post ablation at [facility]. She denied diaphoresis. She denied orthostatic symptoms. Presently she has no symptoms. She is on anticoagulant. She had a PE post ablation. Prior similar symptoms: Yes Recent Illness/Hospitalization: No - Past Medical History (1) Ventricular tachycardia Status: Acute (2) Cpdrp-3-ygtfeefvorh deficiency Status: Chronic (3) Ankylosing spondylitis Status: Chronic (4) GERD (gastroesophageal reflux disease) Status: Chronic (5) Hypothyroidism Status: Chronic (6) Morbid obesity Status: Chronic Past Medical History - Allergies and Home Meds Allergies/Adverse Reactions: Allergies cholecalciferol (vitamin D3) [From Vitamin D3] Allergy (Verified 12/14/18 14:31) Hives ergocalciferol (vitamin D2) [From Vitamin D2] Allergy (Verified 12/14/18 14:31) Hives nadolol Allergy (Verified 12/14/18 14:31) Hives Penicillins Allergy (Verified 12/14/18 14:25) Hives bupropion [From Wellbutrin] Adverse Reaction (Verified 12/14/18 14:31) Unknown hydrocodone bitartrate [From Vicodin] Adverse Reaction (Verified 12/14/18 14:25) Other Pain in stomach, n/v morphine Adverse Reaction (Verified 12/14/18 14:25) Nausea Primary Care Physician: Marjorie Arzate PA [Primary Care Provider] - Prior records reviewed: Yes Surgical History: - - Cholecystectomy, x 1, T+A. Lives: Alone Smoking Status: Former smoker Drugs: None - Family History Maternal Family History: Reports: - - Patient mother is healthy with only home medications reflux medication and regimen for anxiety and depression otherwise denies any history of diabetes, heart disease, cancer. Paternal Family History: Reports: - - Patient father with history of heart disease, status post [place] with PCI x2 in 2016. Review of Systems General: Denies: Chills, Fever, Sweats Eyes: Denies: Visual changes - bilaterally, Diplopia ENT: Denies: Rhinorrhea, Sore throat Cardiovascular: Reports: Palpitations. Denies: Chest pain, Heart racing Respiratory: Denies: Dyspnea, Cough, Dyspnea on exertion Gastrointestinal: Denies: Abdominal pain, Nausea, Vomiting, Diarrhea, Melena, Hematochezia Genitourinary: Denies: Dysuria, Hematuria, Frequency Musculoskeletal: Denies: Back pain, Extremity Pain Skin: Denies: Rash, Wounds Neurological: Denies: Headache, Weakness, Numbness Hematologic: Denies: Easy bruising, Easy bleeding Physical Exam Vital Signs/Narrative: Vital Signs Temp Pulse Resp BP Pulse Ox 12/14/18 14:26 97 F L 59 L 19 H 165/85 H 98 Inital Vital Signs reviewed: Yes General: Well nourished, Well developed, Obese, No Acute Distress Head: Normocephalic, Atraumatic Eyes: Perrl, EOMI ENT: Moist mucous membranes, No rhinorrhea Neck: Supple, Nontender Cardiovascular: Regular rate, Regular rhythm, No murmurs, Normal S1, Normal S2 Respiratory: No distress, CTA bilaterally, Chest nontender Abdomen: Soft, Nontender, Nondistended, Normal bowel sounds Back: Nontender, Normal Inspection Extremities: Nontender, No edema Skin: Normal color, No rash. Negative for: Cyanosis, Jaundice Neurological: Alert, Oriented x3, Cranial nerves II-XII grossly intact, Normal Strength, Normal Sensation Psychological: Normal affect, Normal Mood Diagnostic/Tx/Re-eval Laboratory Results 12/14/18 12/14/18 14:57 14:57 WBC 10.6 RBC 5.12 Hgb 14.3 Hct 43.3 MCV 84.6 MCH 27.9 MCHC 33.0 RDW 13.9 RDW Differential 43.0 Plt Count 245 MPV 10.5 Sodium 139 Potassium 3.6 Chloride 107 Carbon Dioxide 27.0 Anion Gap 5 BUN 14 Creatinine 0.74 Estim Creat Clear Calc 99.33 Est GFR (MDRD) Af Amer 114 Est GFR (MDRD) Non-Af 95 BUN/Creatinine Ratio 18.9 Glucose 95 Calcium 8.6 Magnesium 2.0 - Rhythm Strip Rhythm Strip: Sinus Rhythm Rate: 59 Ectopy: None - EKG Initial EKG Interpretation: Sinus Bradycardia - Ventricular rate 54. FL interval, Q yarsani, QT interval and axis are normal. Normal other than bradycardic - Medical Decision Making With history of V. tach will obtain EKG and placed on monitor. Electrolyte panel and magnesium level were obtained. Will observe and reevaluate. This may have represented PAC, ventricular premature beats nonsustained V. tach, Patient was informed at 1535 that her workup is negative. She has had no ectopy during her ER course. EKG was normal. ED Disposition - Plan for ED Patient: Disposition: Home or Assisted Living Instructions: ED Palpitations Referrals: Marjorie Arzate PA [Primary Care Provider] - As Needed
[2018-12-14 15:14] LABS: Hematocrit 43.3 % (37-47); Hemoglobin 14.3 g/dl (12.0-15.0); Mean Corpuscular Hgb 27.9 pg (27.0-32.0); Mean Corpuscular Volume 84.6 fL (81-99); Mean Platelet Vol. 10.5 fl (6.2-12.0); Platelet Count 245 K/mm3 (150-450); RBC Distribution Width CV 13.9 % (11.6-14.6); Red Blood Count 5.12 M/mm3 (4.2-5.4); White Blood Count 10.6 K/mm3 (4.4-11.0)
[2018-12-14 15:15] LABS: Scan Indicated on CBC? Y/N NO
[2018-12-14 15:25] VITALS: BP 131/73; PULSE 57; RESP 23; O2SAT 96
[2018-12-14 15:33] LABS: Anion Gap 5 (5-15); BUN 14 mg/dL (7-18); BUN/Creat Ratio 18.9 RATIO (10-20); Calcium,Total 8.6 mg/dL (8.5-10.1); Chloride 107 mmol/L (98-107); Creatinine, Serum 0.74 mg/dL (0.55-1.02); EST Glomerular Filtration Rate 95 mL/min (>60); Est Glom Filt Rate - Afr Amer 114 mL/min (>60); Estimated Creatinine Clearance 99.33 ml/min; Glucose 95 mg/dL (74-106); Potassium 3.6 mmol/L (3.5-5.1); Sodium Level 139 mmol/L (136-145)
[2018-12-14 15:40] VITALS: BP 98/77; PULSE 55; RESP 18; O2SAT 98
== END 2018-12-14 15:48 | disposition home or self-care (01) ==
PROVIDERS: Emergency Provider Emergency Medicine; Family Provider Physician Assistant Medical; PCP Physician Assistant Medical
DX: R00.2 Palpitations (principal); R00.1 Bradycardia, unspecified; I47.2 Ventricular tachycardia; E88.01 Alpha-1-antitrypsin deficiency; M45.9 Ankylosing spondylitis of unspecified sites in spine; K21.9 Gastro-esophageal reflux disease without esophagitis; E03.9 Hypothyroidism, unspecified; E66.01 Morbid (severe) obesity due to excess calories; Z86.711 Personal history of pulmonary embolism; Z90.49 Acquired absence of other specified parts of digestive tract; Z79.01 Long term (current) use of anticoagulants; Z79.899 Other long term (current) drug therapy; Z87.891 Personal history of nicotine dependence
CPT/HCPCS: 80048; 83735; 85027; 93005; 99284; A4216

== ENCOUNTER → 2018-12-14 | Outpatient (CLI) | payer OTHER, SELFPAY ==
[2018-12-14 09:00] LABS: International Normalized Ratio 1.6; Prothrombin Time (Protime)PT. 18.9 SECONDS (11.7-14.9)
== END | disposition home or self-care (01) ==
LOC: LAB 08:33
PROVIDERS: Family Provider Physician Assistant Medical; PCP Physician Assistant Medical; Referring Provider Internal Medicine Cardiovascular Disease; Visit Provider Internal Medicine Cardiovascular Disease
DX: Z86.711 Personal history of pulmonary embolism (principal)
CPT/HCPCS: 36415; 85610

== ENCOUNTER → 2018-12-17 08:37 | Outpatient (CLI) | payer OTHER, SELFPAY ==
[2018-12-14 14:26] VITALS: BMI 60.5
[2018-12-17 09:04] LABS: International Normalized Ratio 1.8; Prothrombin Time (Protime)PT. 21.1 SECONDS (11.7-14.9)
== END ==
PROVIDERS: Family Provider Physician Assistant Medical; PCP Physician Assistant Medical; Referring Provider Internal Medicine Cardiovascular Disease; Visit Provider Internal Medicine Cardiovascular Disease
DX: I26.99 Other pulmonary embolism without acute cor pulmonale (principal)
CPT/HCPCS: 36415; 85610

== ENCOUNTER 2018-12-21 21:49 | Emergency (ER) | payer OTHER, SELFPAY ==
[2018-12-21 21:50] VITALS: BP 163/101; PULSE 117; RESP 17; TEMP 36.3; O2SAT 99; BMI 61.9
--- NOTE | 2018-12-21 22:00 | RAD_ITS ---
STUDY: X-RAY CHEST REASON FOR EXAM: Female, 33 years old. Chest pain TECHNIQUE: Single frontal view of the chest. COMPARISON: 09/17/2018. FINDINGS: Mild elevation of the right hemidiaphragm. Lungs are clear. No infiltrates or effusions. Normal size heart. Normal mediastinum and montse. Normal visualized pulmonary arteries. Normal visualized aortic arch and descending thoracic aorta. Normal visualized thoracic spine. Normal visualized ribs, clavicles, and shoulders. There is no demonstrated abnormality of the visualized soft tissue structures of the upper abdomen. RAD/Chest 1 View (Portable) IMPRESSION: No acute chest disease. Electronically Signed: Ricardo Julio MD at 22:23 EDT , Service support ,
--- NOTE | 2018-12-21 22:00 | EKG12_ITS ---
Test Reason : CP Blood Pressure : / mmHG Vent. Rate : 110 BPM Atrial Rate : 110 BPM P-R Int : 164 ms QRS Dur : 076 ms QT Int : 336 ms P-R-T Axes : 055 -04 056 degrees QTc Int : 454 ms Sinus tachycardia Minimal voltage criteria for LVH, may be normal variant Borderline ECG Confirmed by YON COPELAND, GARRICK ([id number]), editor map CURLY CUEVAS ([id number]) on 12/24/2018 11:48:39 AM Referred By: Joshua Shaikh Confirmed By:GARRICK MARVIN MD
[2018-12-21 22:13] VITALS: BP 161/113; PULSE 24; RESP 23; O2SAT 98
[2018-12-21 22:21] LABS: Absolute Lymphocyte Count 4.11 X10^3/ul (0.83-4.51); Absolute Neutrophil Count 7.2 X10^3/uL (2.0-7.7); Basophil# 0.01 X10^3/uL; Basophil% 0.1 % (0-1); Eosinophils% 1.6 % (0-5); Hematocrit 46.3 % (37-47); Hemoglobin 15.3 g/dl (12.0-15.0); Lymphocyte # 4.11 X10^3/ul (4.0); Mean Corpuscular Hgb 27.4 pg (27.0-32.0); Mean Platelet Vol. 10.8 fl (6.2-12.0); Monocyte# 0.88 X10^3/uL; Monocyte% 7.1 % (0-10); Neutrophil # 7.22 X10^3/uL (2.7-7.7); Platelet Count 279 K/mm3 (150-450); RBC Distribution Width SD 42.6 fl (35.1-43.9); Red Blood Count 5.58 M/mm3 (4.2-5.4); White Blood Count 12.5 K/mm3 (4.4-11.0)
[2018-12-21 22:23] LABS: POSITIVE COUNT NO; POSITIVE DIFFERENTIAL NO; POSITIVE MORPHOLOGY NO
[2018-12-21 22:30] LABS: Anion Gap 5 (5-15); BUN 15 mg/dL (7-18); BUN/Creat Ratio 17.7 RATIO (10-20); Calcium,Total 8.9 mg/dL (8.5-10.1); Chloride 101 mmol/L (98-107); Creatinine, Serum 0.85 mg/dL (0.55-1.02); EST Glomerular Filtration Rate 81 mL/min (>60); Est Glom Filt Rate - Afr Amer 98 mL/min (>60); Estimated Creatinine Clearance 83.12 ml/min; Glucose 132 mg/dL (74-106); Potassium 3.7 mmol/L (3.5-5.1); Sodium Level 137 mmol/L (136-145)
--- NOTE | 2018-12-21 23:15 | ED.VISSUMM ---
- ER Visit Summary Date of Service: 12/21/18 Chief Complaint: Palpitations and accelerated heart rate History of Present Illness: The patient is a 33 F history of V. tach dysrhythmia for which she had a cardiac ablation done at the [facility] in August. Since that time she is done well. She is never had a syncopal episode with it. Denies an episode around 9:15 PM where she had accelerated heart rate as high as 175 or so. This was caught on her iPhone watch. It shows a tachycardia but not the specific rhythm. She said this episode lasted about 15 minutes. No chest pain. She did not pass out. That dysrhythmias since stopped and she is currently feeling well. She is on a cardiac rhythm medication currently. She is also on Coumadin and Eliquis due to having alpha-1 antitrypsin deficiency. Physical Examination: Young female no acute distress. Currently her vital signs blood pressure initially 161/113. Heart rate 104. Pulse ox 90% room air no hypoxia. No distress. She is currently sitting in bed resting comfortably. HEENT exam unremarkable. Neck nontender. Lungs clear to auscultation bilaterally. Heart regular rhythm rate about 100 no murmur. Chest nontender. Abdomen obese but soft nontender no bowel sounds no peritoneal signs. Patient moving all 4 extremities. Calves are nontender without edema or cords. Neurologically she is awake alert with no focal motor deficits. Test Results: Chest x-ray shows normal cardiac silhouette mediastinum read both myself the radiologist. EKG sinus tachycardia rate of 110 with no acute signs of VA or ischemia. No significant dysrhythmia. CBC white count 12. Hemoglobin 15. I's normal. Normal creatinine gap. Troponin normal. Emergency Department Course and Treatment: I had a discussion with the patient and her significant other. She does not want to be admitted. I did explain Reason to admit her would be to monitor for possible recurrent dysrhythmia. She prefers to follow-up with her primary baby registry sales consultant in [facility]. She knows return if she is feeling worse. Treatment Plan: Follow-up with her electrophysiology baby registry sales consultant at [facility] on Monday. Return if feeling worse. Continue her current medications. Disposition: Discharge Impression: Acute tachycardia and palpitations of uncertain etiology resolved History of prior V. tach with a cardiac ablation This note was generated with Dragon dictation software. It may contain incorrect words, spelling, and punctuation that were not noted in review of the chart prior to signing ED Disposition - Plan for ED Patient: Referrals: Marjorie Arzate PA [Primary Care Provider] -
--- NOTE | 2018-12-21 23:19 | ED.DCSUM_ITS ---
- ER Visit Summary Date of Service: 12/21/18 Chief Complaint: Palpitations and accelerated heart rate History of Present Illness: The patient is a 33 F history of V. tach dysrhythmia for which she had a cardiac ablation done at the [facility] in August. Since that time she is done well. She is never had a syncopal episode with it. Denies an episode around 9:15 PM where she had accelerated heart rate as high as 175 or so. This was caught on her iPhone watch. It shows a tachycardia but not the specific rhythm. She said this episode lasted about 15 minutes. No chest pain. She did not pass out. That dysrhythmias since stopped and she is currently feeling well. She is on a cardiac rhythm medication currently. She is also on Coumadin and Eliquis due to having alpha-1 antitrypsin deficiency. Physical Examination: Young female no acute distress. Currently her vital signs blood pressure initially 161/113. Heart rate 104. Pulse ox 90% room air no hypoxia. No distress. She is currently sitting in bed resting comfortably. HEENT exam unremarkable. Neck nontender. Lungs clear to auscultation bilaterally. Heart regular rhythm rate about 100 no murmur. Chest nontender. Abdomen obese but soft nontender no bowel sounds no peritoneal signs. Patient moving all 4 extremities. Calves are nontender without edema or cords. Neurologically she is awake alert with no focal motor deficits. Test Results: Chest x-ray shows normal cardiac silhouette mediastinum read both myself the radiologist. EKG sinus tachycardia rate of 110 with no acute signs of OR or ischemia. No significant dysrhythmia. CBC white count 12. Hemoglobin 15. I's normal. Normal creatinine gap. Troponin normal. Emergency Department Course and Treatment: I had a discussion with the patient and her significant other. She does not want to be admitted. I did explain Reason to admit her would be to monitor for possible recurrent dysrhythmia. She prefers to follow-up with her primary draw bench operator in [facility]. She knows return if she is feeling worse. Treatment Plan: Follow-up with her electrophysiology draw bench operator at [facility] on Monday. Return if feeling worse. Continue her current medications. Disposition: Discharge Impression: Acute tachycardia and palpitations of uncertain etiology resolved History of prior V. tach with a cardiac ablation This note was generated with Dragon dictation software. It may contain incorrect words, spelling, and punctuation that were not noted in review of the chart prior to signing ED Disposition - Plan for ED Patient: Referrals: Marjorie Arzate PA [Primary Care Provider] -
--- NOTE | 2018-12-21 23:20 | DCINST.ED_ITS ---
ED Disposition - Plan for ED Patient: Disposition: Home or Assisted Living Instructions: ED Palpitations Additional Instructions: Call follow-up with your population health manager in the clinic in clinic on Monday. Continue current medications. Return to the ER if you are feeling worse.
[2018-12-21 23:25] VITALS: BP 137/71; PULSE 98; RESP 18; O2SAT 97
== END 2018-12-21 23:26 | disposition home or self-care (01) ==
PROVIDERS: Emergency Provider Emergency Medicine; Family Provider Physician Assistant Medical; PCP Physician Assistant Medical
DX: R00.0 Tachycardia, unspecified (principal); R00.2 Palpitations; Z86.79 Personal history of other diseases of the circulatory system; Z98.890 Other specified postprocedural states; E88.01 Alpha-1-antitrypsin deficiency; Z79.01 Long term (current) use of anticoagulants; Z79.899 Other long term (current) drug therapy
CPT/HCPCS: 71045; 80048; 84484; 85025; 93005; 99284; A4216

== ENCOUNTER → 2018-12-26 | Outpatient (CLI) | payer OTHER, SELFPAY ==
[2018-12-21 21:50] VITALS: BMI 61.9
[2018-12-26 07:00] LABS: International Normalized Ratio 1.9; Prothrombin Time (Protime)PT. 21.5 SECONDS (11.7-14.9)
== END | disposition home or self-care (01) ==
PROVIDERS: Family Provider Physician Assistant Medical; PCP Physician Assistant Medical; Referring Provider Internal Medicine Cardiovascular Disease; Visit Provider Internal Medicine Cardiovascular Disease
DX: I26.99 Other pulmonary embolism without acute cor pulmonale (principal)
CPT/HCPCS: 36415; 85610

== ENCOUNTER 2019-06-12 06:27 | Emergency (ER) | payer OTHER, SELFPAY ==
[2019-06-12 06:28] VITALS: BP 124/85; PULSE 78; RESP 20; TEMP 36.6; O2SAT 96; BMI 60.8
[2019-06-12 06:32] VITALS: BP 124/85; PULSE 78; RESP 14; O2SAT 96
--- NOTE | 2019-06-12 06:43 | EKG12_ITS ---
Test Reason : CP Blood Pressure : / mmHG Vent. Rate : 077 BPM Atrial Rate : 077 BPM P-R Int : 152 ms QRS Dur : 078 ms QT Int : 404 ms P-R-T Axes : 042 -04 021 degrees QTc Int : 457 ms Normal sinus rhythm Moderate voltage criteria for LVH, may be normal variant Borderline ECG Confirmed by REBEKAH COPELAND, INDIO ([id number]), editor magazine CURLY CUEVAS ([id number]) on 06/19/2019 10:59:36 AM Referred By: MALLIKA Confirmed By:SHAI WELCH MD
--- NOTE | 2019-06-12 06:44 | RAD_ITS ---
STUDY: X-RAY CHEST REASON FOR EXAM: Female, 33 years old. Chest pain and cough starting this morning, history of heart ablation in September 16, 2018. TECHNIQUE: PA and lateral views of the chest. COMPARISON: 12/21/2018. FINDINGS: There are superimposed monitor leads. Stable mild elevation right hemidiaphragm. There is no focal parenchymal abnormality. There is no demonstrated pleural abnormality. Normal size heart. Normal mediastinum and montse. Normal visualized pulmonary arteries. Normal visualized aortic arch and descending thoracic aorta. Normal visualized thoracic spine. Normal visualized ribs, clavicles, and shoulders. There is no demonstrated abnormality of the visualized soft tissue structures of the upper abdomen. RAD/Chest PA and Lateral IMPRESSION: No acute cardiopulmonary disease. No significant interval change. Electronically Signed: Monika Sousa MD at 7:23 EDT , Service support ,
[2019-06-12 07:01] LABS: Absolute Lymphocyte Count 2.23 X10^3/uL (0.83-4.51); Absolute Neutrophil Count 6.1 X10^3/uL (2.0-7.7); Basophil# 0.02 X10^3/uL; Basophil% 0.2 % (0-1); Eosinophil# 0.24 X10^3/uL; Eosinophils% 2.6 % (0-5); Hematocrit 43.5 % (37-47); Hemoglobin 14.3 g/dL (12.0-15.0); Lymphocyte # 2.23 X10^3/ul (4.0); Mean Corp Hgb Conc 32.9 g/dL (32-36); Mean Corpuscular Hgb 27.7 pg (27.0-32.0); Mean Corpuscular Volume 84.3 fL (81-99); Mean Platelet Vol. 11.1 fl (6.2-12.0); Monocyte# 0.64 X10^3/uL; Monocyte% 6.9 % (0-10); NRBC Flagged by Analyzer 0 % (0-5); Neutrophil # 6.14 X10^3/uL (2.7-7.7); Neutrophil % 65.9 % (47-70); Platelet Count 290 K/mm3 (150-450); RBC Distribution Width CV 13.9 % (11.6-14.6); RBC Distribution Width SD 42.9 fl (35.1-43.9); Red Blood Count 5.16 M/mm3 (4.2-5.4); White Blood Count 9.3 K/mm3 (4.4-11.0)
[2019-06-12] MEDS: 0.9% Normal Saline 1,000 ML 150 ML IV (07:02)
[2019-06-12] MEDS: LORazepam 2 MG/ML Syringe 0.5 MG IV (07:02)
[2019-06-12 07:11] LABS: Internal QC Validated? YES +Cl - CLEAR BKGD; Pregnancy, Serum, hCG Quali. NEGATIVE Negative
[2019-06-12 07:15] LABS: Anion Gap 8 (5-15); BUN 8 mg/dL (7-18); BUN/Creat Ratio 12.6 RATIO (10-20); Chloride 103 mmol/L (98-107); Creatinine, Serum 0.64 mg/dL (0.55-1.02); EST Glomerular Filtration Rate 112 mL/min (>60); Est Glom Filt Rate - Afr Amer 136 mL/min (>60); Estimated Creatinine Clearance 114.86 ml/min; Glucose 106 mg/dL (74-106); Potassium 3.5 mmol/L (3.5-5.1); Sodium Level 138 mmol/L (136-145)
[2019-06-12 07:17] LABS: D-Dimer Quantitative (DVT/PE) 0.45 FEU/ug/m (0.27-0.49)
--- NOTE | 2019-06-12 07:39 | ED.DCSUM_ITS ---
History of Present Illness Chief Complaint: Chest Pain Informant: Patient Onset: Today Current Severity: Mild Maximum Severity: Moderate Narrative: Patient presents with left upper chest pain which noted 2 hours ago when she got up. The left upper chest and wraps around to her left upper back. She had mild cough. She denies any known injury. She is a history of ventricular tachycardia with cardiac ablation. She also has history of pulmonary embolism, no longer on anticoagulants. Past Medical History - Allergies and Home Meds Allergies/Adverse Reactions: Allergies cholecalciferol (vitamin D3) [From Vitamin D3] Allergy (Verified 12/21/18 21:50) Hives ergocalciferol (vitamin D2) [From Vitamin D2] Allergy (Verified 12/21/18 21:50) Hives nadolol Allergy (Verified 12/21/18 21:50) Hives Penicillins Allergy (Verified 12/21/18 21:50) Hives bupropion [From Wellbutrin] Adverse Reaction (Verified 12/21/18 21:50) Unknown hydrocodone bitartrate [From Vicodin] Adverse Reaction (Verified 12/21/18 21:50) Other Pain in stomach, n/v morphine Adverse Reaction (Verified 12/21/18 21:50) Nausea Primary Care Physician: Marjorie Arzate PA [Primary Care Provider] - Prior records reviewed: Yes Past Medical History: - - Reviewed Surgical History: - - Cholecystectomy, x 1, T+A. Lives: Spouse/ Significant Other Smoking Status: Former smoker - Family History Maternal Family History: Reports: - - Patient mother is healthy with only home medications reflux medication and regimen for anxiety and depression otherwise denies any history of diabetes, heart disease, cancer. Paternal Family History: Reports: - - Patient father with history of heart disease, status post [place] with PCI x2 in 2016. Review of Systems General: Denies: Chills, Fever Eyes: Denies: Visual changes - bilaterally ENT: Denies: Bilateral ear pain Cardiovascular: Reports: Chest pain. Denies: Palpitations, Heart racing Respiratory: Reports: Cough. Denies: Dyspnea, Sputum Gastrointestinal: Denies: Abdominal pain, Nausea, Vomiting Musculoskeletal: Reports: Back pain. Denies: Swelling, Extremity Pain Skin: Denies: Rash Neurological: Denies: Headache Allergy: Denies: Uticaria Physical Exam Vital Signs/Narrative: Vital Signs Temp Pulse Resp BP Pulse Ox 06/12/19 06:32 78 14 124/85 H 96 06/12/19 06:28 98 F 78 20 H 124/85 H 96 Inital Vital Signs reviewed: Yes General: Well nourished, Well developed Head: Normocephalic ENT: Moist mucous membranes Neck: Supple Cardiovascular: Regular rate, Regular rhythm Respiratory: No distress, CTA bilaterally, Chest tenderness - Left upper chest wall tenderness. No crepitus. Abdomen: Soft, Nontender Back: Nontender Extremities: Nontender Skin: Normal color, No rash Neurological: Alert, Oriented x3 Psychological: Normal affect Diagnostic/Tx/Re-eval Impressions Chest X-Ray 06/12/19 06:44 IMPRESSION: No acute cardiopulmonary disease. No significant interval change. Electronically Signed: Monika Sousa MD at 7:23 EDT , Service support , 06/12/19 06:44 Chest PA and Lateral [RAD] Stat Laboratory Results 06/12/19 06/12/19 06/12/19 06:30 06:30 06:30 WBC 9.3 RBC 5.16 Hgb 14.3 Hct 43.5 MCV 84.3 MCH 27.7 MCHC 32.9 RDW Std Deviation 42.9 RDW Coeff of Jocelyne 13.9 Plt Count 290 MPV 11.1 Immature Gran % (Auto) 0.400 Neut % (Auto) 65.9 Lymph % (Auto) 24.0 [place] % (Auto) 6.9 Eos % (Auto) 2.6 Baso % (Auto) 0.2 Absolute Neuts (auto) 6.1 Absolute Lymphs (auto) 2.23 Nucleated RBC % 0 D-Dimer Quant (PE/DVT) 0.45 Sodium 138 Potassium 3.5 Chloride 103 Carbon Dioxide 27.0 Anion Gap 8 BUN 8 Creatinine 0.64 Estim Creat Clear Calc 114.86 Est GFR (MDRD) Af Amer 136 Est GFR (MDRD) Non-Af 112 BUN/Creatinine Ratio 12.6 Glucose 106 Calcium 9.0 Troponin I < 0.015 Serum , Qual 06/12/19 06:30 WBC RBC Hgb Hct MCV MCH MCHC RDW Std Deviation RDW Coeff of Jocelyne Plt Count MPV Immature Gran % (Auto) Neut % (Auto) Lymph % (Auto) [place] % (Auto) Eos % (Auto) Baso % (Auto) Absolute Neuts (auto) Absolute Lymphs (auto) Nucleated RBC % D-Dimer Quant (PE/DVT) Sodium Potassium Chloride Carbon Dioxide Anion Gap BUN Creatinine Estim Creat Clear Calc Est GFR (MDRD) Af Amer Est GFR (MDRD) Non-Af BUN/Creatinine Ratio Glucose Calcium Troponin I Serum , Qual NEGATIVE - EKG Initial EKG Interpretation: Sinus Rhythm - Sinus at 77 with no acute ischemia. - Medical Decision Making Patient declined anything for pain on arrival, but stated that she felt very anxious. She was given 0.5 mg of Ativan. On repeat examination she is resting comfortably does feel improved. Test results are discussed with patient and at bedside. Chest pain appears to be all musculoskeletal in nature. She has 600 mg ibuprofen tabs at home that she will use for pain. ED Disposition - Plan for ED Patient: Disposition: Home or Assisted Living Diagnosis: Chest wall pain Instructions: Chest Wall Strain Referrals: Marjorie Arzate PA [Primary Care Provider] - 1 Week if not improving
[2019-06-12 08:08] VITALS: BP 106/65; PULSE 78; RESP 19; O2SAT 99
== END 2019-06-12 08:10 | disposition home or self-care (01) ==
PROVIDERS: Emergency Provider Emergency Medicine; Family Provider Physician Assistant Medical; PCP Physician Assistant Medical
DX: R07.89 Other chest pain (principal); R05 Cough; M54.9 Dorsalgia, unspecified; I47.2 Ventricular tachycardia; Z86.711 Personal history of pulmonary embolism; Z79.899 Other long term (current) drug therapy; Z87.891 Personal history of nicotine dependence
CPT/HCPCS: 71046; 80048; 84484; 84703; 85025; 85379; 93005; 96361; 96374; 99284; J7030; A4216

== ENCOUNTER 2019-06-28 10:13 | Emergency (ER) | payer OTHER, SELFPAY ==
[2019-06-28 10:14] VITALS: BP 164/87; PULSE 105; RESP 24; TEMP 36.6; O2SAT 100; BMI 62.0
--- NOTE | 2019-06-28 10:17 | EKG12_ITS ---
Test Reason : Blood Pressure : / mmHG Vent. Rate : 094 BPM Atrial Rate : 094 BPM P-R Int : 160 ms QRS Dur : 080 ms QT Int : 378 ms P-R-T Axes : 046 -01 035 degrees QTc Int : 472 ms Normal sinus rhythm Moderate voltage criteria for LVH, may be normal variant Borderline ECG Confirmed by YON COPELAND, GARRICK ([id number]), production editor CURLY CUEVAS ([id number]) on 07/01/2019 9:44:55 AM Referred By: KALANI Confirmed By:GARRICK MARVIN MD
--- NOTE | 2019-06-28 10:26 | ED.DCSUM_ITS ---
- ER Visit Summary Date of Service: 06/28/19 Chief Complaint: Palpitations History of Present Illness: The patient is a 33 F history of prior PE thought to be from a PICC line. No longer on any anticoagulation. Also anxiety depression and prior history of V. tach for which she had that ablated. Patient states he recently decrease her metoprolol dose to half a pill which I think was 12 and half milligrams twice a day. Accidentally yesterday she took 7 pills. Said she moved her medications and took too much at one time for over a couple times. She did not pass out. She did not have a slow heart rate or low blood pressure so she waited to be seen today. Today she is in palpitations and treatment no chest pain. No shortness of breath. No leg swelling. Otherwise feels fine. Has not recently been ill. Physical Examination: Well appearing female vital signs stable afebrile. Initial blood pressure 112/60 with a heart rate of 98. Sinus rhythm on the monitor. No distress. H EENT exam unremarkable. Neck nontender. No thyromegaly. Lungs clear to auscultation bilaterally. Heart regular rhythm no murmur. Rate about 95. Abdomen obese soft nontender normal bowel sounds no peritoneal signs. Patient moving all 4 extremities. Calves are nontender without edema or cords. Neurologically she is awake alert with no focal motor deficit. Test Results: EKG shows a sinus rhythm rate of 94 with no acute signs of PR, ischemia or dysrhythmia. I reviewed patient's old records 2 weeks ago she had a full cardiac work-up including a chest, CBC, BMP, d-dimer, EKG and troponin all which were unremarkable. I do not think she needs a repeat today. 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 Continue her normal metoprolol dose. Requesting something for anxiety was given a milligram of Ativan. Treatment Plan: Follow-up with her primary care provider and/or software development advisor as needed. Disposition: Discharge Impression: Acute palpitations uncertain etiology resolved History of prior V. tach with ablation This note was generated with [employer]oPedi[employer]ation software. It may contain incorrect words, spelling, and punctuation that were not noted in review of the chart prior to signing ED Disposition - Plan for ED Patient: Disposition: Home or Assisted Living Instructions: Palpitations Referrals: Marjorie Arzate PA [Primary Care Provider] - As Needed Additional Instructions: Up with your doctor as needed. Resume your normal metoprolol dose.
[2019-06-28 10:48] VITALS: BP 123/80; PULSE 110; RESP 19; O2SAT 99
[2019-06-28 11:05] VITALS: BP 124/69; PULSE 72; RESP 14; O2SAT 100
--- NOTE | 2019-06-28 11:05 | ED.DEP ---
ED Disposition - Plan for ED Patient: Disposition: Home or Assisted Living Instructions: Palpitations Referrals: Marjorie Arzate PA [Primary Care Provider] - As Needed Additional Instructions: Up with your doctor as needed. Resume your normal metoprolol dose.
[2019-06-28] MEDS: LORazepam 1 MG Tablet PO (11:10)
== END 2019-06-28 11:22 | disposition home or self-care (01) ==
PROVIDERS: Emergency Provider Emergency Medicine; Family Provider Physician Assistant Medical; PCP Physician Assistant Medical
DX: R00.2 Palpitations (principal); Z86.79 Personal history of other diseases of the circulatory system; F32.9 Major depressive disorder, single episode, unspecified; F41.9 Anxiety disorder, unspecified; Z86.711 Personal history of pulmonary embolism; Z79.82 Long term (current) use of aspirin; Z79.899 Other long term (current) drug therapy
CPT/HCPCS: 93005; 99284

== ENCOUNTER 2019-11-08 10:04 | Emergency (ER) | payer OTHER, SELFPAY ==
[2019-11-08 10:06] VITALS: BP 148/95; PULSE 69; RESP 16; TEMP 36.3; O2SAT 97; BMI 58.1
--- NOTE | 2019-11-08 10:24 | CT_ITS ---
STUDY: CTA CHEST REASON FOR EXAM: Female, 34 years old. PE? LEFT SIDED CHEST PAIN WITH HISTORY OF PE RADIATION DOSAGE (If Supplied By Facility): CTDIvol = ( 11.35 ) mGy, DLP = ( 633.00 ) mGycm TECHNIQUE: The examination was performed with the intravenous administration of 100 ML ISOVUE 370. Post-processing of the angiographic images was performed, with multiplanar reformation and 3D reconstruction. Individualized dose optimization techniques were used for this CT. COMPARISON: Comparison is made with prior examination dated October 02, 2018. FINDINGS: Limited visualization of the pulmonary arteries due to poor contrast enhancement. No obvious pulmonary was missing. Normal thoracic aorta and visualized great vessels. There is no demonstrated aortic dissection. Normal heart and pericardium. Normal mediastinum. Normal hilar regions. Normal visualized trachea and bronchi. The lungs are well expanded. Normal pulmonary parenchyma. Normal pleura. Normal chest wall structures. Normal osseous structures. The patient is status post cholecystectomy. Small hiatal hernia. CT/CTA Chest W/WO Contrast IMPRESSION: Limited study for the assessment of the pulmonary arteries although no obvious pulmonary embolism is seen. Electronically Signed: Gray Reyes, at 12:33 EDT , Service support ,
--- NOTE | 2019-11-08 10:25 | EKG12_ITS ---
Test Reason : Blood Pressure : / mmHG Vent. Rate : 061 BPM Atrial Rate : 061 BPM P-R Int : 154 ms QRS Dur : 076 ms QT Int : 426 ms P-R-T Axes : 045 006 032 degrees QTc Int : 428 ms Normal sinus rhythm with sinus arrhythmia Minimal voltage criteria for LVH, may be normal variant Borderline ECG Confirmed by REBEKAH COPELAND, INDIO ([id number]), acquisitions editor [employer] [place] ([id number]) on 11/11/2019 1:45:44 PM Referred By: LAURA Confirmed By:SHAI WELCH MD
--- NOTE | 2019-11-08 10:26 | ED.DCSUM_ITS ---
- ER Visit Summary Date of Service: 11/08/19 Chief Complaint: Pain History of Present Illness: The patient is a 34 F with chest pain for the past week. She was diagnosed with inflammation in her rib cage by urgent care and she has been taking prednisone. Her symptoms are not improving. She is now having back pain, worse on the right, and worse in the armpits. She has a history of VT and ablation. She had a coronary cath just over a year ago which was negative. She also has a history of DVT. She was previously on Coumadin but had trouble regulating her INR, so she is currently only on aspirin daily. No other associated symptoms. Physical Examination: Afebrile and vital signs unremarkable. Heart regular. Lungs clear. Abdomen soft. Back unremarkable. Skin unremarkable. Neurovascular intact. Calves soft and supple. Test Results: EKG, labs, CTA pending. Emergency Department Course and Treatment: Work-up as above. Patient has no infectious symptoms. Patient declined pain medicine. Patient was treated with Ativan for anxiety. Her EKG showed sinus rhythm at a rate of 61. White count 13.6. CBC otherwise normal. Metabolic panel normal. Troponin normal. test negative. CT chest was limited but showed no evidence of PE. Patient has atypical chest pain. Nothing to suggest PE. She had a heart catheterization which was unremarkable. No other concerning findings or symptoms. Low risk. Patient is appropriate for outpatient care and will be discharged home. Follow-up with primary care. Treatment Plan: Outpatient follow-up Disposition: Discharge Impression: Atypical chest pain This note was generated with [employer] dictation software. It may contain incorrect words, spelling, and punctuation that were not noted in review of the chart prior to signing ED Disposition - Plan for ED Patient: Referrals: Marjorie Arzate PA [Primary Care Provider] -
[2019-11-08] MEDS: 0.9% Normal Saline 1,000 ML 1000 ML IV (10:52)
[2019-11-08 10:53] VITALS: PULSE 61; RESP 17; O2SAT 100
[2019-11-08 10:56] LABS: Basophil# 0.02 X10^3/uL; Basophil% 0.1 % (0-1); Eosinophil# 0.16 X10^3/uL; Eosinophils% 1.2 % (0-5); Hematocrit 43.6 % (37-47); Hemoglobin 13.7 g/dL (12.0-15.0); Lymphocyte % 25.8 % (19-41); Mean Corp Hgb Conc 31.4 g/dL (32-36); Mean Corpuscular Hgb 26.1 pg (27.0-32.0); Mean Platelet Vol. 10.6 fl (6.2-12.0); Monocyte# 0.85 X10^3/uL; Monocyte% 6.3 % (0-10); NRBC Flagged by Analyzer 0 % (0-5); Neutrophil # 8.97 X10^3/uL (2.7-7.7); Neutrophil % 66.2 % (47-70); Platelet Count 277 K/mm3 (150-450); RBC Distribution Width CV 14.1 % (11.6-14.6); RBC Distribution Width SD 42.2 fl (35.1-43.9); Red Blood Count 5.25 M/mm3 (4.2-5.4); White Blood Count 13.6 K/mm3 (4.4-11.0)
[2019-11-08 11:16] LABS: Anion Gap 5 (5-15); BUN 10 mg/dL (7-18); BUN/Creat Ratio 13.2 RATIO (10-20); Calcium,Total 8.7 mg/dL (8.5-10.1); Chloride 104 mmol/L (98-107); Creatinine, Serum 0.76 mg/dL (0.55-1.02); EST Glomerular Filtration Rate 92 mL/min (>60); Est Glom Filt Rate - Afr Amer 111 mL/min (>60); Glucose 98 mg/dL (74-106); Potassium 3.8 mmol/L (3.5-5.1); Sodium Level 138 mmol/L (136-145)
[2019-11-08 11:32] LABS: Internal QC Validated? YES +Cl - CLEAR BKGD; Pregnancy, Serum, hCG Quali. NEGATIVE Negative
[2019-11-08] MEDS: LORazepam 1 MG Tablet PO (12:09)
--- NOTE | 2019-11-08 12:54 | ED.DEP ---
ED Disposition - Plan for ED Patient: Instructions: CHEST PAIN, Uncertain Cause Referrals: Marjorie Arzate PA [Primary Care Provider] -
[2019-11-08 13:04] VITALS: PULSE 61; RESP 17; O2SAT 97
[2019-11-08 13:05] VITALS: PULSE 61; RESP 17; O2SAT 97
== END 2019-11-08 13:17 | disposition home or self-care (01) ==
LOC: ED 10:36
PROVIDERS: Emergency Provider Emergency Medicine; PCP Physician Assistant Medical
DX: R07.89 Other chest pain (principal); K21.9 Gastro-esophageal reflux disease without esophagitis; I35.0 Nonrheumatic aortic (valve) stenosis; I47.2 Ventricular tachycardia; E03.9 Hypothyroidism, unspecified; Z86.718 Personal history of other venous thrombosis and embolism; Z79.82 Long term (current) use of aspirin; Z79.899 Other long term (current) drug therapy; Z87.891 Personal history of nicotine dependence
CPT/HCPCS: 71275; 80048; 84484; 84703; 85025; 93005; 96360; 99285; J7030; Q9967; A4216

== ENCOUNTER → 2020-04-06 07:14 | Outpatient (CLI) | payer OTHER, SELFPAY ==
[2020-04-06 09:54] LABS: Absolute Neutrophil Count 6.1 X10^3/uL (2.0-7.7); Basophil# 0.03 X10^3/uL; Basophil% 0.3 % (0-1); Eosinophil# 0.18 X10^3/uL; Eosinophils% 1.9 % (0-5); Hematocrit 42.7 % (37-47); Hemoglobin 13.5 g/dL (12.0-15.0); Mean Corp Hgb Conc 31.6 g/dL (32-36); Mean Corpuscular Hgb 27.1 pg (27.0-32.0); Mean Corpuscular Volume 85.6 fL (81-99); Mean Platelet Vol. 11.2 fl (6.2-12.0); Monocyte# 0.68 X10^3/uL; Monocyte% 7.1 % (0-10); NRBC Flagged by Analyzer 0 % (0-5); Neutrophil # 6.12 X10^3/uL (2.7-7.7); Neutrophil % 63.4 % (47-70); Platelet Count 273 K/mm3 (150-450); RBC Distribution Width CV 14.9 % (11.6-14.6); RBC Distribution Width SD 46.1 fl (35.1-43.9); Red Blood Count 4.99 M/mm3 (4.2-5.4); White Blood Count 9.6 K/mm3 (4.4-11.0)
[2020-04-06 10:02] LABS: Prothrombin Time (Protime)PT. 12.6 SECONDS (11.7-14.9)
[2020-04-06 10:04] LABS: Fibrinogen 525 mg/dl (203-444)
[2020-04-06 10:24] LABS: ALB/GLOB Ratio 0.7 RATIO (0.9-2.4); AST(SGOT) 52 U/L (15-37); Alanine Aminotransfer ALT/SGPT 86 U/L (13-56); Albumin, Serum 3.2 g/dL (3.2-5.0); Alkaline Phosphatase 124 U/L (45-117); Anion Gap 7 (5-15); BUN 15 mg/dL (7-18); BUN/Creat Ratio 20.8 RATIO (10-20); Calcium,Total 8.8 mg/dL (8.5-10.1); Chloride 106 mmol/L (98-107); Cholesterol 214 mg/dL (200); Creatinine, Serum 0.72 mg/dL (0.55-1.02); EST Glomerular Filtration Rate 97 mL/min (>60); Est Glom Filt Rate - Afr Amer 117 mL/min (>60); Ferritin 92 ng/mL (8-252); Globulin 4.4 g/dL (2.2-4.2); Glucose 113 mg/dL (74-106); High Density Lipoprotein 47 mg/dL; Iron 45 ug/dL (50-170); Iron Binding Capacity,Total 289 ug/dL (250-450); PERCENT IRON SATURATION 15.6 % (15.0-55.0); Potassium 3.9 mmol/L (3.5-5.1); Protein, Total 7.6 g/dL (6.4-8.2); Sodium Level 140 mmol/L (136-145); T4 Free Direct 1.04 ng/dL (0.76-1.46); Thyroid Stim Hormone (TSH) 1.95 uIU/mL (0.358-3.74); Triglycerides 119 mg/dL; Very Low Density Lipoprotein 24 mg/dL (5-40); Vitamin D,25 Hydroxy 21.4 ng/mL
[2020-04-10 14:08] LABS: Hexagonal Phase Phospholipid 0 sec (0-11); Protein C Antigen 112 % (60-150); Protein C, Functional 106 % (73-180)
[2020-04-10 17:01] LABS: Protein S, Free 96 % (57-157); Protein S, Funtional 114 % (63-140); Protein S, Total 126 % (60-150); Transferrin 242 mg/dL (192-364)
== END ==
PROVIDERS: PCP Physician Assistant Medical; Referring Provider Physician Assistant Medical; Visit Provider Physician Assistant Medical
DX: D50.9 Iron deficiency anemia, unspecified (principal); E55.9 Vitamin D deficiency, unspecified; R94.5 Abnormal results of liver function studies; E03.9 Hypothyroidism, unspecified; E66.01 Morbid (severe) obesity due to excess calories; Z86.711 Personal history of pulmonary embolism
CPT/HCPCS: 36415; 80053; 80061; 81241; 82306; 82728; 83540; 83550; 84439; 84443; 84466; 85025; 85302; 85303; 85305; 85306; 85384; 85598; 85610; 85730

== ENCOUNTER → 2020-05-09 10:38 | Outpatient (CLI) | payer OTHER, SELFPAY ==
[2020-04-28 10:03] VITALS: BMI 60.0
== END ==
PROVIDERS: PCP Physician Assistant Medical; Referring Provider Otolaryngology; Visit Provider Otolaryngology
DX: T78.40XA Allergy, unspecified, initial encounter (principal)
CPT/HCPCS: 36415

== ENCOUNTER → 2020-05-21 13:31 | Outpatient (CLI) | payer OTHER, SELFPAY ==
[2020-04-28 10:03] VITALS: BMI 60.0
[2020-05-21 15:28] LABS: Absolute Lymphocyte Count 2.74 X10^3/uL (0.83-4.51); Absolute Neutrophil Count 7.1 X10^3/uL (2.0-7.7); Basophil# 0.02 X10^3/uL; Basophil% 0.2 % (0-1); Eosinophil# 0.21 X10^3/uL; Hematocrit 44.9 % (37-47); Hemoglobin 14.1 g/dL (12.0-15.0); Lymphocyte # 2.74 X10^3/ul (4.0); Lymphocyte % 25.5 % (19-41); Mean Corp Hgb Conc 31.4 g/dL (32-36); Mean Corpuscular Hgb 26.5 pg (27.0-32.0); Mean Corpuscular Volume 84.4 fL (81-99); Mean Platelet Vol. 11.4 fl (6.2-12.0); Monocyte# 0.68 X10^3/uL; Monocyte% 6.3 % (0-10); NRBC Flagged by Analyzer 0 % (0-5); Neutrophil # 7.08 X10^3/uL (2.7-7.7); Neutrophil % 65.7 % (47-70); Platelet Count 263 K/mm3 (150-450); RBC Distribution Width SD 43.5 fl (35.1-43.9); Red Blood Count 5.32 M/mm3 (4.2-5.4); White Blood Count 10.8 K/mm3 (4.4-11.0)
[2020-05-21 15:39] LABS: Prothrombin Time (Protime)PT. 12.8 SECONDS (11.7-14.9)
[2020-05-21 15:40] LABS: Partial Thromboplast Time 26.8 Seconds (24.1-36.2)
[2020-05-21 15:41] LABS: Fibrinogen 538 mg/dl (203-444)
[2020-05-21 15:51] LABS: Vitamin B12 579 pg/mL (211-911)
[2020-05-21 16:14] LABS: ALB/GLOB Ratio 0.8 RATIO (0.9-2.4); AST(SGOT) 60 U/L (15-37); Alanine Aminotransfer ALT/SGPT 97 U/L (13-56); Albumin, Serum 3.5 g/dL (3.2-5.0); Alkaline Phosphatase 117 U/L (45-117); Anion Gap 7 (5-15); BUN 14 mg/dL (7-18); Calcium,Total 9.1 mg/dL (8.5-10.1); Chloride 102 mmol/L (98-107); Creatinine, Serum 0.74 mg/dL (0.55-1.02); EST Glomerular Filtration Rate 95 mL/min (>60); Est Glom Filt Rate - Afr Amer 115 mL/min (>60); Ferritin 83 ng/mL (8-252); Globulin 4.6 g/dL (2.2-4.2); Glucose 95 mg/dL (74-106); Iron 36 ug/dL (50-170); Iron Binding Capacity,Total 320 ug/dL (250-450); LDH 200 U/L (84-246); PERCENT IRON SATURATION 11.2 % (15.0-55.0); Potassium 3.5 mmol/L (3.5-5.1); Protein, Total 8.1 g/dL (6.4-8.2); Sodium Level 138 mmol/L (136-145); T4 Free Direct 1.18 ng/dL (0.76-1.46); Thyroid Stim Hormone (TSH) 1.01 uIU/mL (0.358-3.74)
== END ==
PROVIDERS: PCP Physician Assistant Medical; Referring Provider Internal Medicine Medical Oncology; Visit Provider Internal Medicine Medical Oncology
DX: D50.9 Iron deficiency anemia, unspecified (principal); R79.89 Other specified abnormal findings of blood chemistry
CPT/HCPCS: 36415; 80053; 82607; 82728; 82746; 83540; 83550; 83615; 84439; 84443; 84550; 85025; 85384; 85610; 85730

== ENCOUNTER → 2020-06-01 | Outpatient (CLI) | payer OTHER, SELFPAY ==
[2020-05-26 13:41] VITALS: BMI 55.8
== END | disposition home or self-care (01) ==
LOC: LABSPEC 11:14
PROVIDERS: PCP Physician Assistant Medical; Referring Provider Internal Medicine Medical Oncology; Visit Provider Internal Medicine Medical Oncology
DX: D50.9 Iron deficiency anemia, unspecified (principal); D68.8 Other specified coagulation defects
CPT/HCPCS: 82274

== ENCOUNTER 2020-06-07 12:54 | Emergency (ER) | payer OTHER, SELFPAY ==
[2020-05-26 13:41] VITALS: BMI 55.8
[2020-06-07 12:56] VITALS: BP 147/106; PULSE 115; RESP 14; TEMP 36.7; O2SAT 99; BMI 57.2
[2020-06-07 13:01] VITALS: BP 147/105; PULSE 104; RESP 18; O2SAT 99
--- NOTE | 2020-06-07 13:08 | RAD_ITS ---
STUDY: X-RAY CHEST REASON FOR EXAM: Female, 34 years old. SUDDEN ONSET CHEST BURNING TECHNIQUE: AP COMPARISON: 06/12/2019 FINDINGS: EKG leads project over the chest. The lungs are clear and expanded. There is no demonstrated pleural abnormality. Normal size heart. Normal mediastinum and montse. Normal visualized pulmonary arteries. Normal visualized aortic arch and descending thoracic aorta. Normal visualized thoracic spine. Normal visualized ribs, clavicles, and shoulders. There is no demonstrated abnormality of the visualized soft tissue structures of the upper abdomen. RAD/Chest 1 View (Portable) IMPRESSION: Nonacute portable x-ray examination of the chest. Electronically Signed: Ben Haley MD (Brooks) at 13:58 EDT , Service support ,
--- NOTE | 2020-06-07 13:08 | EKG12_ITS ---
Test Reason : CP Blood Pressure : / mmHG Vent. Rate : 103 BPM Atrial Rate : 103 BPM P-R Int : 154 ms QRS Dur : 078 ms QT Int : 346 ms P-R-T Axes : 046 -06 047 degrees QTc Int : 453 ms Sinus tachycardia Minimal voltage criteria for LVH, may be normal variant Borderline ECG Confirmed by YON COPELAND, GARRICK ([id number]), story editor FANTASMA CLEVELAND ([id number]) on 06/09/2020 12:59:57 PM Referred By: PLACIDO/ Confirmed By:GARRICK MARVIN MD
[2020-06-07 13:16] LABS: Absolute Lymphocyte Count 3.42 X10^3/uL (0.83-4.51); Absolute Neutrophil Count 9.6 X10^3/uL (2.0-7.7); Basophil# 0.02 X10^3/uL; Basophil% 0.1 % (0-1); Eosinophil# 0.15 X10^3/uL; Hematocrit 46.1 % (37-47); Lymphocyte # 3.42 X10^3/ul (4.0); Lymphocyte % 23.9 % (19-41); Mean Corp Hgb Conc 32.5 g/dL (32-36); Mean Corpuscular Volume 83.1 fL (81-99); Mean Platelet Vol. 11.1 fl (6.2-12.0); Monocyte# 1.09 X10^3/uL; Monocyte% 7.6 % (0-10); NRBC Flagged by Analyzer 0 % (0-5); Neutrophil # 9.56 X10^3/uL (2.7-7.7); Neutrophil % 67.1 % (47-70); Platelet Count 306 K/mm3 (150-450); RBC Distribution Width CV 13.8 % (11.6-14.6); RBC Distribution Width SD 41.5 fl (35.1-43.9); Red Blood Count 5.55 M/mm3 (4.2-5.4); White Blood Count 14.3 K/mm3 (4.4-11.0)
[2020-06-07 13:20] LABS: Prothrombin Time (Protime)PT. 12.3 SECONDS (11.7-14.9)
[2020-06-07 13:28] LABS: Anion Gap 8 (5-15); BUN 11 mg/dL (7-18); BUN/Creat Ratio 13.8 RATIO (10-20); Calcium,Total 9.3 mg/dL (8.5-10.1); Chloride 105 mmol/L (98-107); EST Glomerular Filtration Rate 86 mL/min (>60); Est Glom Filt Rate - Afr Amer 104 mL/min (>60); Estimated Creatinine Clearance 91.01 ml/min; Glucose 149 mg/dL (74-106); Potassium 3.2 mmol/L (3.5-5.1); Sodium Level 139 mmol/L (136-145)
[2020-06-07 13:50] LABS: D-Dimer Quantitative (DVT/PE) 0.52 FEU/ug/m (0.27-0.49)
--- NOTE | 2020-06-07 13:51 | CT_ITS ---
STUDY: CTA CHEST REASON FOR EXAM: Female, 34 years old. SUDDEN ONSET OF CP, HX-V-TACH, N/T TO EXTREMITIES, HASHIMOTOS, HEART CATH, CARDIAC ABLATION X 4, NAVA, RADIATION DOSAGE (If Supplied By Facility): CTDIvol = ( 19.74 ) mGy, DLP = ( 645.55 ) mGycm TECHNIQUE: The examination was performed with the intravenous administration of IV 100mL Isovue-370. Post-processing of the angiographic images was performed, with multiplanar reformation and 3D reconstruction. Individualized dose optimization techniques were used for this CT. COMPARISON: 11/08/2019 FINDINGS: Normal enhancement of the main pulmonary artery and right and left pulmonary arteries. There is limited enhancement of the bilateral peripheral pulmonary arteries. There is no demonstrated pulmonary embolism. Normal thoracic aorta and visualized great vessels. There is no demonstrated aortic dissection. Normal heart and pericardium. Normal mediastinum. Normal hilar regions. Normal visualized trachea and bronchi. The lungs are well expanded. Normal pulmonary parenchyma. Normal pleura. Normal chest wall structures. There are degenerative changes of thoracic spine. There are surgical clips in the gallbladder fossa consistent with a prior cholecystectomy. CT/CTA Chest W/WO Contrast IMPRESSION: No central or obvious segmental pulmonary embolism. Electronically Signed: Ben Haley MD (Brooks) at 14:47 EDT , Service support ,
[2020-06-07 14:10] VITALS: BP 131/83; PULSE 119; RESP 21; O2SAT 97
[2020-06-07] MEDS: LORazepam 1 MG Tablet PO (14:10)
--- NOTE | 2020-06-07 14:17 | ED.DCSUM_ITS ---
History of Present Illness Informant: Patient Onset: Today Activity at onset: Light Activity Timing: Continuous Quality: Stabbing Location: Substernal Current Severity: Severe Maximum Severity: Severe Worsened By: Nothing Relieved By: Nothing Associated Symptoms: Lightheadedness. Negative for: Nausea, Vomiting, Diaphoresis, Dyspnea, Cough, Fever, Acid Reflux, Palpitations Narrative: 34-year-old female history of a ventricular tachycardia ablation 2 years ago at [facility] presents the emergency room with chest pain. She was doing the dishes. Sudden onset of feeling lightheaded and like her heart was racing. She then got very anxious and nervous. She started to have chest pain. This was about an hour ago. She presents for evaluation. She does have a history of anxiety she does get recurrent episodes of palpitations that she has had a significant work-up for since her ablation and was told this was due to anxiety. She denies any recent travel or surgery. She is on her control. She did have a history of a pulmonary embolism after her procedure. She is not anticoagulated. She states that her son tested positive for days ago for coronavirus. Patient has not having shortness of breath cough or fever she has not lost her taste or smell denies nausea vomiting or diarrhea. Prior Similar Symptoms: Yes Recent Illness/Hospitalization: No CVD Risk Factors: Negative for: Hypertension, Diabetes, Hypercholesterolemia, Family History 1' </=55, Smoking PE Risk Factors: Prior DVT or PE. Negative for: Recent Travel/Surgery, Recenet Immobilization, Cancer, OCP + Smoking + >/=35 TAD Risk Factors: Negative for: Marfan's Syndrome, Hypertension, Family History <Raymond Rose - Last Filed: 06/07/20 15:00> <Glenis Partida - Last Filed: 06/07/20 17:00> Chief Complaint: Chest Pain Past Medical History Prior records reviewed: Yes Past Medical History: - - Ventricular tachycardia Surgical History: - - Cholecystectomy, x 1, T+A., Ablation for ventricular tachycardia Lives: With Family Smoking Status: Former smoker Alcohol: None Drugs: None - Family History Maternal Family History: Family History (Last Reviewed 05/26/20 @ 13:39 by Verona Arnold) Father Family history of acute myocardial infarction Grandfather Heart problem Grandmother Heart problem Family history of diabetes mellitus Uncle Family history of diabetes mellitus Mother Family history of hypercholesterolemia Family history of hypertension Unknown Family history of thyroid disease Family History: Reports: - - Patient mother is healthy with only home medications reflux medication and regimen for anxiety and depression otherwise denies any history of diabetes, heart disease, cancer. Paternal Family History: Family History (Last Reviewed 05/26/20 @ 13:39 by Verona Arnold) Father Family history of acute myocardial infarction Grandfather Heart problem Grandmother Heart problem Family history of diabetes mellitus Uncle Family history of diabetes mellitus Mother Family history of hypercholesterolemia Family history of hypertension Unknown Family history of thyroid disease Family History: Reports: - - Patient father with history of heart disease, status post NV with PCI x2 in 2016. <Raymond Rose - Last Filed: 06/07/20 15:00> - Family History Maternal Family History: Family History (Last Reviewed 05/26/20 @ 13:39 by Verona Arnold) Father Family history of acute myocardial infarction Grandfather Heart problem Grandmother Heart problem Family history of diabetes mellitus Uncle Family history of diabetes mellitus Mother Family history of hypercholesterolemia Family history of hypertension Unknown Family history of thyroid disease Paternal Family History: Family History (Last Reviewed 05/26/20 @ 13:39 by Verona Arnold) Father Family history of acute myocardial infarction Grandfather Heart problem Grandmother Heart problem Family history of diabetes mellitus Uncle Family history of diabetes mellitus Mother Family history of hypercholesterolemia Family history of hypertension Unknown Family history of thyroid disease <Glenis Partida - Last Filed: 06/07/20 17:00> - Allergies and Home Meds Allergies/Adverse Reactions: Allergies cholecalciferol (vitamin D3) [From Vitamin D3] Allergy (Verified 06/07/20 12:56) Hives ergocalciferol (vitamin D2) [From Vitamin D2] Allergy (Verified 06/07/20 12:56) Hives nadolol Allergy (Verified 06/07/20 12:56) Hives Penicillins Allergy (Verified 06/07/20 12:56) Hives bupropion [From Wellbutrin] Adverse Reaction (Verified 06/07/20 12:56) Unknown hydrocodone bitartrate [From Vicodin] Adverse Reaction (Verified 06/07/20 12:56) Other Pain in stomach, n/v morphine Adverse Reaction (Verified 06/07/20 12:56) Nausea Primary Care Physician: Marjorie Arzate PA [Primary Care Provider] - Review of Systems All systems negative except as indicated General: Denies: Chills, Fever, Sweats Eyes: Denies: Visual changes - bilaterally, Diplopia ENT: Denies: Rhinorrhea, Sore throat Cardiovascular: Reports: Chest pain, Palpitations Respiratory: Denies: Dyspnea, Cough, Sputum, Dyspnea on exertion, Paroxysmal nocturnal dyspnea Gastrointestinal: Denies: Abdominal pain, Nausea, Vomiting, Diarrhea, Melena, Hematochezia Genitourinary: Denies: Dysuria, Hematuria, Frequency Musculoskeletal: Denies: Back pain, Extremity Pain Skin: Denies: Rash, Wounds Neurological: Denies: Headache, Weakness, Numbness Psych: Reports: Anxiety. Denies: Depression <Raymond Rose - Last Filed: 06/07/20 15:00> Physical Exam Vital Signs/Narrative: Vital Signs Temp Pulse Resp BP Pulse Ox 06/07/20 14:10 119 H 21 H 131/83 H 97 06/07/20 13:01 104 H 18 147/105 H 99 06/07/20 12:56 98.1 F 115 H 14 147/106 H 99 Inital Vital Signs reviewed: Yes General: Well nourished, Well developed, Obese, No Acute Distress Head: Normocephalic, Atraumatic Eyes: Perrl, EOMI ENT: Moist mucous membranes, No rhinorrhea Neck: Supple, Nontender Cardiovascular: Regular rhythm, No murmurs, Tachycardia Respiratory: No distress, CTA bilaterally, Chest nontender Abdomen: Soft, Nontender, Nondistended, Normal bowel sounds Back: Nontender, Normal Inspection Extremities: Nontender, No edema Skin: Normal color, No rash Neurological: Alert, Oriented x3, Cranial nerves II-XII grossly intact, Normal Strength, Normal Sensation Psychological: Normal affect, Normal Mood <Raymond Rose - Last Filed: 06/07/20 15:00> Vital Signs/Narrative: Vital Signs Temp Pulse Resp BP Pulse Ox 06/07/20 15:31 102 H 18 150/83 H 06/07/20 14:47 98 06/07/20 14:10 119 H 21 H 131/83 H 97 06/07/20 13:01 104 H 18 147/105 H 99 06/07/20 12:56 98.1 F 115 H 14 147/106 H 99 <Glenis Partida - Last Filed: 06/07/20 17:00> Diagnostic/Tx/Re-eval Chest X-Ray - ED: 1 View, Read by ED Physician, Read by Radiologist, No Acute Disease CTA PE Study: No Evidence of PE, No Evidence of Dissection - Rhythm Strip Rhythm Strip: Sinus Tach Rate: 111 Ectopy: None - EKG Initial EKG Interpretation: No Acute Injury Pattern, Sinus Tachycardia Prior: Unchanged Treatment: Aspirin Repeat Eval: Pain Free RESHMA Risk: No Positive RESHMA Elements Score: 0 - Medical Decision Making EKG was sinus tachycardia rate of 103 bpm. Patient's been on the laboratory monitor. No evidence of ventricular tachycardia. She was very anxious she does have a history of anxiety she sees a counselor for this. She was given a dose of Ativan. Laboratory work-up including troponin unremarkable. D-dimer was elevated however because of this a CT of the chest was performed which was negative for PE other acute finding. Repeat exam patient feels calm after Ativan. Heart rate is rate of 1110 per minute. Patient was reassured. She will be discharged home. She will follow with her primary care and supervisor rough end. Return precautions given. <Raymond Rose - Last Filed: 06/07/20 15:00> - Medical Decision Making I have personally performed a [id number] assessment of the patient and have reviewed the PA note. 34-year-old female presenting with lightheadedness and palpitations. Patient has a previous history of ablation and anxiety. Her son was recently diagnosed with COVID. She feels very anxious on arrival. EKG is sinus tachycardia. She was given Ativan. She had improvement of her heart rate to 105. Work-up otherwise unremarkable. She feels improved after Ativan. COVID test was ordered and is pending. Advised follow-up with primary care physician. Advised return to ED for worsening complaints. <Glenis Partida - Last Filed: 06/07/20 17:00> ED Disposition <Raymond Rose - Last Filed: 06/07/20 15:00> <Glenis Partida - Last Filed: 06/07/20 17:00> - Plan for ED Patient: Disposition: Home or Assisted Living Diagnosis: Chest pain, Palpitations with regular cardiac rhythm, Anxiety Instructions: ED Chest Pain Atypical Unkn Cause Referrals: Marjorie Arzate PA [Primary Care Provider] -
[2020-06-07 14:47] VITALS: O2SAT 98
[2020-06-07 15:31] VITALS: BP 150/83; PULSE 102; RESP 18
== END 2020-06-07 15:32 | disposition home or self-care (01) ==
PROVIDERS: Emergency Medicine; Emergency Provider Physician Assistant Medical; PCP Physician Assistant Medical
DX: R07.9 Chest pain, unspecified (principal); R00.2 Palpitations; R42 Dizziness and giddiness; F41.9 Anxiety disorder, unspecified; E66.9 Obesity, unspecified; Z86.711 Personal history of pulmonary embolism; Z79.82 Long term (current) use of aspirin; Z79.899 Other long term (current) drug therapy; Z87.891 Personal history of nicotine dependence
CPT/HCPCS: 71045; 71275; 80048; 84484; 85025; 85379; 85610; 87635; 93005; 99285; Q9967; A4216; U0003

== ENCOUNTER → 2020-06-18 16:46 | Outpatient (CLI) | payer OTHER, SELFPAY ==
[2020-05-26 13:41] VITALS: BMI 55.8
[2020-06-07 12:56] VITALS: BMI 57.2
--- NOTE | 2020-06-18 16:46 | CT_ITS ---
STUDY: CT CHEST WITH CONTRAST REASON FOR EXAM: Female, 34 years old. IRON DEFICIENCY. AFIBRINOGENEMIA. R/O MALIGNANCY RADIATION DOSAGE (If Supplied By Facility): CTDIvol = ( 27.63 ) mGy, DLP = ( 1589.54 ) mGycm TECHNIQUE: Transaxial imaging was performed following intravenous administration of Oral and amp; IV Readi-CAT and amp; 100mL Isovue-370. Multiplanar coronal and sagittal images were reformatted. Individualized dose optimization techniques were used for this CT. COMPARISON: Comparison is made with prior study dated 06/07/2020. FINDINGS: The lungs are normal. There is no demonstrated pleural abnormality. Normal heart and pericardium. Normal mediastinum. Normal hilar regions. Normal enhanced pulmonary arteries. Normal aorta arch and descending thoracic aorta. Normal osseous structures. There is no demonstrated abnormality of the visualized upper abdomen. CT/Chest WITH Contrast IMPRESSION: Normal enhanced CT Chest examination. Electronically Signed: Gray Reyes, at 12:55 EDT , Service support ,
--- NOTE | 2020-06-18 16:46 | CT_ITS ---
STUDY: CT ABDOMEN AND PELVIS WITH CONTRAST REASON FOR EXAM: Female, 34 years old. IRON DEFICIENCY. Afibrinogenemia. R/O MALIGNANCY RADIATION DOSAGE (If Supplied By Facility): CTDIvol = ( 21.25 ) mGy, DLP = ( 884.32 ) mGycm TECHNIQUE: Transaxial images were obtained from the dome of the diaphragm to the symphysis pubis without oral contrast. Oral and amp; IV Readi-CAT and amp; 100mL Isovue-370 was administered. Sagittal and coronal images were reconstructed. Individualized dose optimization techniques were used for this CT. COMPARISON: 09/01/2018. FINDINGS: Lung bases are clear. Heart size is normal. The liver is unremarkable. The gallbladder is surgically absent. The spleen and pancreas are unremarkable. The adrenal glands are normal. The kidneys are unremarkable. No stones or hydronephrosis. The aorta is normal in caliber. No mass or adenopathy. There is no free fluid, free air or organized collection. No bowel obstruction or inflammatory change. Normal appendix. Urinary bladder is unremarkable. Normal abdominal wall. Normal osseous structures. CT/Abdomen/Pelvis WITH Contrast IMPRESSION: Normal enhanced CT of the abdomen and pelvis. Electronically Signed: Michaela Willoughby MD at 23:59 EDT Tel , Service support ,
== END ==
PROVIDERS: PCP Physician Assistant Medical; Referring Provider Internal Medicine Medical Oncology; Visit Provider Internal Medicine Medical Oncology
DX: E61.1 Iron deficiency (principal); D68.8 Other specified coagulation defects; D89.2 Hypergammaglobulinemia, unspecified
CPT/HCPCS: 71260; 74177; Q9967

== ENCOUNTER 2020-11-04 18:00 | Outpatient (RCR) | payer OTHER, SELFPAY ==
--- NOTE | 2020-10-16 09:02 | HP.PTEVAL_ITS ---
Patient's Visit Information CURLY COWART is a 35 year old F referred to Physical Therapy by JUNE Jeronimo with a diagnosis of RIGHT HIP PAIN. Date of Evaluation: 10/16/20 Physical Therapist: Kimmy Cole PT, Cert MDT - Visit Plan Frequency: 2-3x /Week Duration: 4-6 Weeks Plan: AQUATIC THERAPY FOR PAIN RELIEF, POSTURE CORRECTION/STRENGTHENING, INSTRUCTION IN APPROPRIATE BODY MECHANICS AND ACTIVITY MODIFICATIONS. DLS STARTING WITH A NEUTRAL SPINE PROGRESSING ROM TOLERATED. DOLLY LE ROM, STRETCHING AND STRENGTHENING. HEP INSTRUCTION. 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 MAINLY ONL THE COMPUTER. 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 WORKING FROM HOME AND HAS NOT MISSED WORK. Disability: NO. Present symptoms: RIGHT LOW BACK AND BUTTOCK PAIN. RIGHT THIGH, LEG, FOOT AND TOE PAIN NUMBNESS AND TINGLING. INTERMITTENT SHOOTING PAINS BUT CONSTANT DULL PAIN AND NUMBNESS IN THE RIGHT LE. Present since: ABOUT 4 WE EKS AGO. Pain Scale: WORST 10/10, LEAST 5/10. Currently: 8/10. PATIENT REPORTS SHE IS WORSENING. Commenced as a result of: RE-ARRANGED BEDROOM FURNITURE. Symptoms at onset: NEXT DAY STARTED WITH LOW BACK PAIN. Worse: MOVING, WALKING TOO LONG, SITTING TO LONG, STANDING TOO LONG, MOVING IN BED, GETTING IN AND OUT OF BED, SHOWERING, TWISTING TO CLEAN SELF AFTER TOLIETING, NEEDED HELP GETTING PANTS AND SOCKS ON TODAY. Better: MASSAGER, HEAT, CHANGE OF POSITION. Disturbed sleep: YES. Previous history/Previous treatment: I'VE BEEN TOLD I HAVE A COUPLE SLIPPED/HERNIATED DISCS. PATIENT REPORTS SHE USE TO SEE DR. PAREDES FOR DANN'S BUT THEY DIDN'T HELP SO STOPPED GOING. NO BACK SURGERY. PT A LONG TIME AGO. H/O CHIROPRACTIC FOR ABOUT 6 MONTHS 6 YEARS AGO. NO MEDICATION. PATIENT REPORTS THIS IS THE FIRST TIME SHE HAS HAD PAIN DOWN HER LEG. Treatment this episode: PT CONSULT. STEROID DOSE PACK AND MUSCLE RELAXER. PATIENT REPORTS THE MEDICATIONS DID NOT HELP AT ALL. Coughi ng/sneezing/straining: YES. Gait: TIME AND DISTANCE LIMITED. I FEEL LIKE I CAN'T STAND STRAIGHT. PATIENT REPORTS ABOUT 75% LIMITED WALKING COMPARED TO HER NORMAL PRIOR TO ONSET OF THIS EPISODE. Difficulty initiating urinatin: NO. Accidents: NO. Unexplained weight loss: NO. Imaging: NONE RECENT. X-RAYS IN THE PAST THOUGH AND CT SCAN. PMH: THYROID DZ, ALPHA ONE - AUTOIMMUNE DISORDER, HEART ABLATION, STATES SHE WAS TESTED FOR AND TOLD SHE DOES NOT HAVE RA. ANEMIA. R HIP AND DOLLY KNEE SNAPPING AND POPPING SINCE CHILDHOOD. - Objective Sitting/Standing Posture: POOR. INCREASED LORDOSIS. Lateral shift: NO. Active Correction of posture: WORSE. Other Observations: DIFFICULTY TRANSITIONING FROM SIT TO STAND AND INITIATING GAIT. DECREASED CADANCE, IN CREASED TRUNK FLEXION AND LIMP ON R LE. Motor deficit: DOLLY LE STRENGTH GROSSLY 5/5 WITH MMT'ING EXCEPT RIGHT HIP 4-/5. Sensory deficit: DECREASED LIGHT TOUCH OF ENTIRE RIGHT LE COMPARED TO LEFT WITH TESTING. ROM deficit: DOLLY LE ROM WFL. Reflexes: NORMAL DOLLY LE'S. Dural Signs: POSITIVE DOLLY LE'S RIGHT > LEFT. Lumbar mvmt loss: flex - MOD. ext - JANNET. R SG - MOD. L SG - MOD. PATIENT C/O INCREASED BACK AND R BUTTOCK/HIP PAIN WITH LUMBAR ROM TESTING ALL PLANES. Core strength: POOR. Palpation: NO ACUTE TENDERNESS IN LOW BACK, BUTTOCK OR HIP REGIONS. OTHER: PATIENTS PRESENT AND HELPFUL THROUGHOUT EVALUATION. TREATMENT: NEUROMUSCULAR REEDUCATION - RETRAINING OF MVMT AND POSTURE FOR SITTING, LYING AND STANDING ACTIVITIES. - Goals Goal 1:: DECREASE C/O BACK AND RIGHT LE SX'S. Goal Time Frame: 4-6 Weeks Goal 2:: IMPROVE PERSONAL CARE, CARE GIVING, SITTING, STANDING, WALKING, SLEEP, RECREATIONAL, WORK AND HOMEMAKING FUNCTION Goal Time Frame: 4-6 Weeks Goal 3:: INSTRUCT IN PROPHYLAXIS Goal Time Frame: 4-6 Weeks - Anticipated Interventions Patient/Client Instruction: Educate patient on: Condition, Plan of Care, Risk Factors, Benefits of Fitness Program For the Purpose of:: To improve self management Therapeutic Exercise to Include: Strength training, Body mechanics, Postural training, Flexibilty training, Gait and locomotor training, Neuromotor development, In an aquatic setting, Dynamic Lumbar Stabilization For the Purpose of:: To decrease pain, To improve nutrient delivery to tissue, To improve muscle performance and motor function, To increase tolerance to activity/condition/position, To improve ability of physical actions for home/community/work/leisure, To improve gait and locomotor functions Thank you for the opportunity to evaluate your patient. For Medicare and Medicare HMO plans, please review the plan of care and approve it. It will need to be FAXED BACK to us at [phone] for Medicare purposes. For Medicare only, by signing this I certify the plan of care. Please let me know if there are questions or concerns regarding this plan of care. Physician Signature: Date:
== END 2020-11-04 19:00 | disposition home or self-care (01) ==
LOC: PT 18:00
PROVIDERS: PCP Physician Assistant Medical; Referring Provider Physician Assistant Medical; Visit Provider Physician Assistant Medical
DX: M25.551 Pain in right hip (principal)
CPT/HCPCS: 97112; 97113; 97162

== ENCOUNTER → 2021-04-06 15:16 | Outpatient (CLI) | payer OTHER, SELFPAY ==
[2020-11-26 13:37] VITALS: BMI 60.2
[2021-04-06 17:16] LABS: T4 Free Direct 0.86 ng/dL (0.76-1.46); Thyroid Stim Hormone (TSH) 2.94 uIU/mL (0.358-3.74)
== END ==
PROVIDERS: PCP Physician Assistant Medical; Referring Provider Internal Medicine Endocrinology, Diabetes & Metabolism; Visit Provider Internal Medicine Endocrinology, Diabetes & Metabolism
DX: E06.3 Autoimmune thyroiditis (principal)
CPT/HCPCS: 36415; 84439; 84443

== ENCOUNTER → 2021-11-22 07:20 | Outpatient (CLI) | payer OTHER, SELFPAY ==
--- NOTE | 2021-11-22 07:24 | US_ITS ---
STUDY: ABDOMINAL ULTRASOUND - RIGHT UPPER QUADRANT REASON FOR VISIT: Female, 36 years old . Right upper quadrant pain. Elevated liver function tests. TECHNIQUE: Ultrasound evaluation of the right upper quadrant was performed with real-time and static garces-scale imaging. TECHNICAL QUALITY: Adequate. COMPARISON: Comparison is made with prior CT scan of the abdomen and pelvis dated 06/18/2020. FINDINGS: Liver: The liver is enlarged and measures 23.2 cm. There is increased echogenicity consistent with fatty infiltration. The bile ducts are within normal limits. There is hepatic color flow. The direction of portal flow is hepatopetal. There is no demonstrated mass lesion. Gallbladder: The patient is status post cholecystectomy. Common Bile Duct (C.B.D.): The common bile duct measures 3 mm. Pancreas: Normal size of the head, body and tail of the pancreas. There is normal echogenicity of the pancreas. There is no demonstrated pancreatic mass or cyst. Right Kidney: Normal size of the right kidney. The right kidney measures 11.6 cm x 6.1 cm x 6.5 cm. Normal renal cortex. The right cortex measures 2.8 cm. There is no demonstrated renal mass or cyst. Mild degree of right hydronephrosis. US/Abdomen Limited IMPRESSION: Hepatomegaly and diffuse fatty infiltration of the liver. Status post cholecystectomy. Mild dilatation of the right renal pelvis. Electronically Signed: Gray Reyes MD at 15:32 EDT ,
== END ==
PROVIDERS: PCP Physician Assistant Medical
DX: R10.11 Right upper quadrant pain (principal); R79.89 Other specified abnormal findings of blood chemistry
CPT/HCPCS: 76705

== ENCOUNTER 2022-08-17 08:06 | Emergency (ER) | payer OTHER, SELFPAY ==
[2022-08-17 08:08] VITALS: BP 133/95; PULSE 81; RESP 18; TEMP 36.1; O2SAT 99; BMI 56.5
--- NOTE | 2022-08-17 08:36 | EKG12_ITS ---
Test Reason : cp Blood Pressure : / mmHG Vent. Rate : 064 BPM Atrial Rate : 064 BPM P-R Int : 152 ms QRS Dur : 078 ms QT Int : 416 ms P-R-T Axes : 049 003 037 degrees QTc Int : 429 ms Normal sinus rhythm Minimal voltage criteria for LVH, may be normal variant ( R in aVL ) Borderline ECG Confirmed by YON COPELAND, GARRICK ([id number]), video editor CURLY CUEVAS ([id number]) on 08/18/2022 8:18:50 AM Referred By: Confirmed By:GARRICK MARVIN MD
--- NOTE | 2022-08-17 08:37 | ED.VIS.CHEST ---
HPI History of Present Illness Chief Complaint: Chest Pain Informant: patient Narrative Narrative: 2-day history of persistent substernal chest pain radiates towards the left side. Pain worse with deep breaths. Denies recent illness or cough. Denies tobacco history. Denies hypertension diabetes hyperlipidemia. Family history in grandfather of [place] at 39, father in his 50s. Patient history of V. tach in 2019 requiring ablation. Reported had a PICC line clot that may migrated to the small area in her right lung. She states it was not significant. She had COVID last year with similar symptoms the right side lasted 2 months. She told her pleurisy previously. Gastric sleeve history. Stage II TORRES history. She had reaction to prednisone earlier this month when started for fatigue and myalgias by her PCP. 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 IBS (irritable bowel syndrome) Iron deficiency Iron deficiency anemia Liver disease Morbid obesity Obesity BRISEYDA on CPAP Paroxysmal ventricular tachycardia PTSD (post-traumatic stress disorder) Seasonal allergies Vitamin D deficiency Vitamin deficiency Home Medications levothyroxine 100 mcg tablet 100 mcg PO MOTUWETHFRSA THYROID 11/10/17 [History Last Taken 09/17/18] omeprazole 20 mg capsule,delayed release 20 mg PO DAILY ACID REFLUX 09/17/18 [History Last Taken 09/16/18] hydrochlorothiazide 25 mg tablet 25 mg PO DAILY 12/14/18 [History Last Taken Unknown] aspirin 81 mg chewable tablet 81 mg PO DAILY@0800 06/28/19 [History Last Taken Unknown] lorazepam 1 mg tablet 1 mg PO TID PRN PRN Anxiety 04/24/20 [History Last Taken Unknown] polysaccharide iron complex 150 mg iron capsule 150 mg PO DAILYCM #90 caps 04/28/20 [Rx Last Taken Unknown] venlafaxine 75 mg capsule,extended release 24 hr 75 mg PO BID 04/28/20 [History Last Taken Unknown] cholecalciferol (vitamin D3) 125 mcg (5,000 unit) capsule 125 mcg PO DAILY 11/26/20 [History Last Taken Unknown] Allergy/AdvReac Type Severity Reaction Status Date / Time cholecalciferol (vitamin D3) Allergy Hives Verified 08/17/22 08:13 [From Vitamin D3] ergocalciferol (vitamin D2) Allergy Hives Verified 08/17/22 08:13 [From Vitamin D2] nadolol Allergy Hives Verified 08/17/22 08:13 Penicillins Allergy Hives Verified 08/17/22 08:13 bupropion [From Wellbutrin] AdvReac Unknown Verified 08/17/22 08:13 hydrocodone bitartrate AdvReac Other Verified 08/17/22 08:13 [From Vicodin] morphine AdvReac Nausea Verified 08/17/22 08:13 Family History Father Family history of acute myocardial infarction Grandfather Heart problem paternal Grandmother Heart problem paternal Family history of diabetes mellitus paternal Uncle Family history of diabetes mellitus paternal Mother Family history of hypercholesterolemia Family history of hypertension Unknown Family history of thyroid disease Other Anxiety Arthritis Autoimmune disease Depression Heart disease Kidney disease Liver disease Myocardial infarction Surgical History History of History of cholecystectomy History of left heart catheterization (09/18/18) History of liver biopsy History of radiofrequency ablation procedure for cardiac arrhythmia (09/25/18) History of tonsillectomy History of tubal ligation Social History Smoking Status: Former smoker ROS ROS ED Constitutional Constitutional ED: Denies chills, fever(s) or sweats Eyes Eyes: Denies change in vision ENT ENT ED: Denies dysphagia or sore throat Cardiovascular Cardiovascular: Reports chest pain; Denies leg edema, palpitations or racing heartbeat Respiratory/Chest Respiratory/Chest: Denies cough, dyspnea or dyspnea on exertion Gastrointestinal Gastrointestinal: Denies abdominal pain, diarrhea, nausea or vomiting Genitourinary Genitourinary ED: Denies dysuria, hematuria or urinary frequency Musculoskeletal Musculoskeletal: Denies back pain, extremity pain or neck pain Integumentary Denies rash or wounds Neurologic Neurologic: Denies headache(s), paresthesias or weakness EXAM Physical Exam Const Vital Signs: 08/17/22 08:08 08/17/22 08:28 08/17/22 09:02 Temperature 96.9 F L Temperature Source Temporal Pulse Rate 81 Respiratory Rate 18 Respiratory Effort Normal Non-Labored Blood Pressure 133/95 H Blood Pressure Mean 107 Pulse Ox 99 Oxygen Delivery Method Room Air Room Air 08/17/22 11:33 Temperature Temperature Source Pulse Rate 72 Respiratory Rate 16 Respiratory Effort Blood Pressure 122/95 H Blood Pressure Mean Pulse Ox 98 Oxygen Delivery Method Positive well nourished and well developed General Appearance ED: well developed and NAD HEENT Reports moist mucous membranes normocephalic and atraumatic Eyes PERRL, EOMs intact bilaterally and conjunctivae normal General Eye ED: Yes normal appearance of both eyes Neck no lymphadenopathy and supple General: Negative for tenderness Chest Wall inspection of chest normal and palpation of chest normal Chest Narrative: No rash of the chest wall. Chest: Negative for tenderness Resp normal respiratory effort and normal air movement Effort and Inspection: symmetric chest movement; Negative for respiratory distress Cardio regular rate, regular rhythm and no murmurs Peripheral Pulses: pulses 2+ throughout GI normal to inspection, nondistended, normoactive bowel sounds and non-tender Palpation: Negative for guarding or rebound tenderness present Back/Spine no CVA tenderness and no thoracic nor lumbar tenderness Extremity normal to inspection General Extremety ED: Negative for edema or tenderness General Extremity: Negative for edema Neuro oriented x3 and no sensory deficits noted Sensorium / Orientation: awake and alert Skin no rashes or lesions noted and no wounds Heart Score History: Slightly/Non-Suspicious ECG: Normal Age: </= 45 years Risk Factors: 1 or 2 Risk Factors Troponin: </= Normal Limit Score: 1 MDM MDM MDM Narrative Medical decision making narrative: Patient vital stable nontoxic normal EKG. Cardiac work-up negative symptoms persistent for over 2 days negative unless likely cardiac in nature. She is presenting with pleuritic symptoms. PERC criteria negative. She is not tachycardic not hypoxic. Due to her gastric surgery and reaction to steroids discussed with patient to continue Tylenol as needed and monitoring symptoms. She has had this in the past. Three-view x-ray of chest reviewed by myself and read by radiology was negative. She is reassured. She will follow-up as an outpatient with strict return precautions. All questions were answered. Lab Data Attestation: I reviewed the patient's lab results. Labs: Laboratory Results - last 24 hr 08/17/22 08/17/22 08:57 08:57 WBC 8.6 RBC 4.92 Hgb 13.8 Hct 42.3 MCV 86.0 MCH 28.0 MCHC 32.6 RDW Std Deviation 45.9 H RDW Coeff of Jocelyne 14.6 Plt Count 173 MPV 11.6 Immature Gran % (Auto) 0.200 Neut % (Auto) 74.1 H Lymph % (Auto) 18.1 L [place] % (Auto) 6.0 Eos % (Auto) 1.4 Baso % (Auto) 0.2 Absolute Neuts (auto) 6.4 Absolute Lymphs (auto) 1.55 Nucleated RBC % 0 Sodium 138 Potassium 4.0 Chloride 106 Carbon Dioxide 27.0 Anion Gap 5 BUN 13 Creatinine 0.66 Estim Creat Clear Calc 107.13 Est GFR (MDRD) Af Amer 129 Est GFR (MDRD) Non-Af 107 BUN/Creatinine Ratio 19.8 Glucose 99 Calcium 9.0 Troponin I High Sens 6 Radiography Diagnostic Testing: Clinical Impression(s) from Imaging Studies Chest X-Ray 08/17/22 09:03 IMPRESSION: Normal x-ray examination of the chest. Electronically Signed: Gray Reyes MD at 9:19 EST , EKG Initial EKG: Attestation: I personally reviewed and interpreted this EKG as follows: Comments: Sinus rate of 64, no ST or T wave changes. Discharge Plan Triage Chief Complaint: Chest Pain ED Provider: Cliff Espinoza Dx/Rx/DC Orders Clinical Impression: Chest pain, Pleurisy Instructions: ED Chest Pain, Uncertain Cause, ED Pleurisy Prescriptions: No Action cholecalciferol (vitamin D3) 125 mcg (5,000 unit) capsule 125 mcg PO DAILY levothyroxine 100 MCG tablet 100 mcg PO MOTUWETHFRSA Rx Instructions: does not take Sundays omeprazole 20 MG capsule 20 mg PO DAILY hydrochlorothiazide 25 MG tablet 25 mg PO DAILY Label Comments: TAKE 1 TABLET BY MOUTH EVERY DAY NEEDED aspirin 81 MG tablet,chewable 81 mg PO DAILY@0800 lorazepam 1 MG tablet 1 mg PO TID PRN PRN (Reason: Anxiety) venlafaxine 75 MG capsule,extended release 24hr 75 mg PO BID polysaccharide iron complex 150 MG capsule 150 mg PO DAILYCM Qty: 90 3RF Primary Care Provider: Marjorie Arzate Referrals: Marjorie Arzate, PA [Primary Care Provider] - 3-5 Days if not improving Disposition Disposition: Home, Self Care Discharge Date/Time: 08/17/22 11:37
--- NOTE | 2022-08-17 09:03 | RAD_ITS ---
STUDY: X-RAY CHEST REASON FOR EXAM: Female, 37 years old. Chest pain TECHNIQUE: PA and lateral views of the chest. COMPARISON: Comparison is made with prior study dated 06/07/2020. FINDINGS: EKG electrodes are seen. The lungs are clear and expanded. There is no demonstrated pleural abnormality. Normal size heart. Normal mediastinum and montse. Normal visualized pulmonary arteries. Normal visualized aortic arch and descending thoracic aorta. Normal visualized thoracic spine. Normal visualized ribs, clavicles, and shoulders. There is no demonstrated abnormality of the visualized soft tissue structures of the upper abdomen. RAD/Chest PA and Lateral IMPRESSION: Normal x-ray examination of the chest. Electronically Signed: Gray Reyes MD at 9:19 EST ,
[2022-08-17 09:08] LABS: Absolute Lymphocyte Count 1.55 X10^3/uL (0.83-4.51); Absolute Neutrophil Count 6.4 X10^3/uL (2.0-7.7); Basophil# 0.02 X10^3/uL; Basophil% 0.2 % (0-1); Eosinophil# 0.12 X10^3/uL; Eosinophils% 1.4 % (0-5); Hematocrit 42.3 % (37-47); Hemoglobin 13.8 g/dL (12.0-15.0); Lymphocyte # 1.55 X10^3/ul (0.83-4.51); Lymphocyte % 18.1 % (19-41); Mean Corp Hgb Conc 32.6 g/dL (32-36); Mean Platelet Vol. 11.6 fl (6.2-12.0); Monocyte# 0.51 X10^3/uL; NRBC Flagged by Analyzer 0 % (0-5); Neutrophil # 6.35 X10^3/uL (2.7-7.7); Neutrophil % 74.1 % (47-70); Platelet Count 173 K/mm3 (150-450); RBC Distribution Width CV 14.6 % (11.6-14.6); RBC Distribution Width SD 45.9 fl (35.1-43.9); Red Blood Count 4.92 M/mm3 (4.2-5.4); White Blood Count 8.6 K/mm3 (4.4-11.0)
[2022-08-17 09:25] LABS: Anion Gap 5 (5-15); BUN 13 mg/dL (7-18); BUN/Creat Ratio 19.8 RATIO (10-20); Chloride 106 mmol/L (98-107); Creatinine, Serum 0.66 mg/dL (0.55-1.02); EST Glomerular Filtration Rate 107 mL/min (>60); Est Glom Filt Rate - Afr Amer 129 mL/min (>60); Estimated Creatinine Clearance 107.13 ml/min; Glucose 99 mg/dL (74-106); Sodium Level 138 mmol/L (136-145); Troponin-I HS (w/2H Reflex) 6 pg/mL (3.0-54.0)
[2022-08-17 11:02] LABS: Reflex Troponin-HS? (from REC) Y
[2022-08-17 11:33] VITALS: BP 122/95; PULSE 72; RESP 16; O2SAT 98
== END 2022-08-17 11:37 | disposition home or self-care (01) ==
PROVIDERS: Emergency Provider Emergency Medicine; PCP Physician Assistant Medical; Visit Provider Emergency Medicine
DX: R07.9 Chest pain, unspecified (principal); R09.1 Pleurisy; G47.33 Obstructive sleep apnea (adult) (pediatric); E03.9 Hypothyroidism, unspecified; F41.9 Anxiety disorder, unspecified; K21.9 Gastro-esophageal reflux disease without esophagitis; Z79.82 Long term (current) use of aspirin; Z79.899 Other long term (current) drug therapy; Z87.891 Personal history of nicotine dependence; Z86.16 Personal history of COVID-19
CPT/HCPCS: 71046; 80048; 84484; 85025; 93005; 99283

== ENCOUNTER 2022-11-15 11:50 | Emergency (ER) | payer OTHER, SELFPAY ==
[2022-11-15 11:50] VITALS: BP 135/99; PULSE 80; RESP 18; TEMP 36.3; O2SAT 100; BMI 53.8
--- NOTE | 2022-11-15 12:02 | ED.VIS.CHEST ---
HPI History of Present Illness Chief Complaint: Chest Pain Narrative Narrative: Presents with chest pain that has been constant since yesterday and is nonpleuritic. She has not traveled anywhere, she has no lower extremity edema or calf pain. No cough or congestion. She has no back pain or tearing sensation. Pain is sharp and stabbing. She has been moving recently unpacking and lifting. 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 IBS (irritable bowel syndrome) Iron deficiency Iron deficiency anemia Liver disease Morbid obesity Obesity BRISEYDA on CPAP Paroxysmal ventricular tachycardia PTSD (post-traumatic stress disorder) Seasonal allergies Vitamin D deficiency Vitamin deficiency Home Medications levothyroxine 100 mcg tablet 100 mcg PO MOTUWETHFRSA THYROID 11/10/17 [History Last Taken 09/17/18] omeprazole 20 mg capsule,delayed release 20 mg PO DAILY ACID REFLUX 09/17/18 [History Last Taken 09/16/18] hydrochlorothiazide 25 mg tablet 25 mg PO DAILY 12/14/18 [History Last Taken Unknown] aspirin 81 mg chewable tablet 81 mg PO DAILY@0800 06/28/19 [History Last Taken Unknown] lorazepam 1 mg tablet 1 mg PO TID PRN PRN Anxiety 04/24/20 [History Last Taken Unknown] polysaccharide iron complex 150 mg iron capsule 150 mg PO DAILYCM #90 caps 04/28/20 [Rx Last Taken Unknown] venlafaxine 75 mg capsule,extended release 24 hr 75 mg PO BID 04/28/20 [History Last Taken Unknown] cholecalciferol (vitamin D3) 125 mcg (5,000 unit) capsule 125 mcg PO DAILY 11/26/20 [History Last Taken Unknown] Allergy/AdvReac Type Severity Reaction Status Date / Time cholecalciferol (vitamin D3) Allergy Hives Verified 11/15/22 11:52 [From Vitamin D3] ergocalciferol (vitamin D2) Allergy Hives Verified 11/15/22 11:52 [From Vitamin D2] nadolol Allergy Hives Verified 11/15/22 11:52 Penicillins Allergy Hives Verified 11/15/22 11:52 bupropion [From Wellbutrin] AdvReac Unknown Verified 11/15/22 11:52 hydrocodone bitartrate AdvReac Other Verified 11/15/22 11:52 [From Vicodin] morphine AdvReac Nausea Verified 11/15/22 11:52 Family History Father Family history of acute myocardial infarction Grandfather Heart problem paternal Grandmother Heart problem paternal Family history of diabetes mellitus paternal Uncle Family history of diabetes mellitus paternal Mother Family history of hypercholesterolemia Family history of hypertension Unknown Family history of thyroid disease Other Anxiety Arthritis Autoimmune disease Depression Heart disease Kidney disease Liver disease Myocardial infarction Surgical History History of History of cholecystectomy History of left heart catheterization (09/18/18) History of liver biopsy History of radiofrequency ablation procedure for cardiac arrhythmia (09/25/18) History of tonsillectomy History of tubal ligation Social History Smoking Status: Former smoker ROS ROS ED ROS Narrative Past medical history: Reviewed Medications: Reviewed Social history: Noncontributory Review of systems: All systems negative except as indicated General: No fever Eyes: No visual changes ENT: No upper airway congestion, normal voice Neck: No neck pain Cardiovascular: Chest pain as in HPI Respiratory: No shortness of breath or cough Gastrointestinal: No abdominal pain, nausea vomiting or diarrhea Genitourinary: No dysuria Musculoskeletal: Denies myalgias no difficulty with ambulation Skin: No rash Neurological: No memory loss, confusion or any focal weakness EXAM Physical Exam Narrative Exam Narrative: Physical exam General: Well nourished, Well developed, No Acute Distress Head: Normocephalic, Atraumatic Eyes: Conjunctiva not pale ENT: Moist mucous membranes Neck: Supple, Nontender, No lymphadenopathy Cardiovascular: Regular rate, Regular rhythm no murmur. Chest wall: Reproducible left parasternal chest wall pain no obvious rash Respiratory: No distress, CTA bilaterally Abdomen: Soft, Nontender, Nondistended Back: Nontender, Normal Inspection. Negative for: CVA tenderness Extremities: Nontender, No edema Skin: Normal color, No rash Const Vital Signs: 11/15/22 11:50 Temperature 97.3 F L Temperature Source Temporal Pulse Rate 80 Respiratory Rate 18 Blood Pressure 135/99 H Blood Pressure Mean 111 Pulse Ox 100 Oxygen Delivery Method Room Air MDM MDM MDM Narrative Medical decision making narrative: A. Problems addressed Patient has chest pain, she likely has chest wall pain or costochondritis, her work-up is negative, I do not believe this is cardiac in etiology, I will address it with NSAIDs otherwise I will discharge in stable condition she is moving in could have strained something in the chest wall. She has no signs or symptoms of PE. She appears well and I will discharge in stable condition B. Amount and/or complexity of the data 1. CBC CMP and troponin were normal, there were interpreted by me I discussed the patient with mother who was in the room 2. Independent interpretation of test Telemetry: Sinus rhythm with a rate in the 80s without ectopy C. Patient was seen by me in the emergency department. I have considered the following differential diagnoses however I was able to exclude all of these through a thorough history and physical exam as well as laboratory testing: PE or any thromboembolic etiologies, myocardial infarction, aortic dissection, esophageal rupture, pneumothorax, musculoskeletal emergencies, upper abdominal pathologies such as pancreatitis, cholecystitis or choledocholithiasis, as well as ruptured bowel. Without about admission however more likely she has chest wall pain and I believe she can be safely discharged home. Lab Data Labs: Laboratory Results - last 24 hr 11/15/22 11/15/22 12:10 12:10 WBC 8.1 RBC 5.22 Hgb 14.5 Hct 45.9 MCV 87.9 MCH 27.8 MCHC 31.6 L RDW Std Deviation 44.6 H RDW Coeff of Jocelyne 13.8 Plt Count 189 MPV 12.1 H Immature Gran % (Auto) 0.200 Neut % (Auto) 66.2 Lymph % (Auto) 24.8 [place] % (Auto) 7.0 Eos % (Auto) 1.7 Baso % (Auto) 0.1 Absolute Neuts (auto) 5.4 Absolute Lymphs (auto) 2.02 Nucleated RBC % 0 Sodium 141 Potassium 3.7 Chloride 108 H Carbon Dioxide 30.0 Anion Gap 3 L BUN 11 Creatinine 0.75 Estim Creat Clear Calc 94.28 Est GFR (MDRD) Af Amer 111 Est GFR (MDRD) Non-Af 92 BUN/Creatinine Ratio 14.7 Glucose 103 Calcium 9.3 Total Bilirubin 0.40 AST 57 H ALT 76 H Alkaline Phosphatase 127 H Troponin I High Sens 5 Total Protein 7.8 Albumin 3.3 Globulin 4.5 H Albumin/Globulin Ratio 0.7 L Radiography Diagnostic Testing: Clinical Impression(s) from Imaging Studies Chest X-Ray 11/15/22 12:18 IMPRESSION: Normal x-ray examination of the chest. Electronically Signed: Gray Reyes MD at 12:37 EDT , For interpreted by me as normal Discharge Plan Triage Chief Complaint: Chest Pain ED Provider: Aftab Sutton Dx/Rx/DC Orders Clinical Impression: Chest pain, Chest wall pain Instructions: ED Chest Pain, Uncertain Cause Prescriptions: No Action cholecalciferol (vitamin D3) 125 mcg (5,000 unit) capsule 125 mcg PO DAILY levothyroxine 100 MCG tablet 100 mcg PO MOTUWETHFRSA Rx Instructions: does not take Sundays omeprazole 20 MG capsule 20 mg PO DAILY hydrochlorothiazide 25 MG tablet 25 mg PO DAILY Label Comments: TAKE 1 TABLET BY MOUTH EVERY DAY NEEDED aspirin 81 MG tablet,chewable 81 mg PO DAILY@0800 lorazepam 1 MG tablet 1 mg PO TID PRN PRN (Reason: Anxiety) venlafaxine 75 MG capsule,extended release 24hr 75 mg PO BID polysaccharide iron complex 150 MG capsule 150 mg PO DAILYCM Qty: 90 3RF Primary Care Provider: Marjorie Arzate Referrals: Marjorie Arzate PA [Primary Care Provider] - 3-5 Days Disposition Disposition: Home, Self Care
[2022-11-15] MEDS: Ketorolac 15 MG/ML Vial IV (12:11)
--- NOTE | 2022-11-15 12:18 | RAD_ITS ---
STUDY: X-RAY CHEST REASON FOR EXAM: Female, 37 years old. cp TECHNIQUE: Single AP portable view of the chest. COMPARISON: Comparison is made with prior study dated August 17, 2022. FINDINGS: The lungs are clear and expanded. There is no demonstrated pleural abnormality. Normal size heart. Normal mediastinum and montse. Normal visualized pulmonary arteries. Normal visualized aortic arch and descending thoracic aorta. Normal visualized thoracic spine. Normal visualized ribs, clavicles, and shoulders. There is no demonstrated abnormality of the visualized soft tissue structures of the upper abdomen. RAD/Chest 1 View (Portable) IMPRESSION: Normal x-ray examination of the chest. Electronically Signed: Gray Reyes MD at 12:37 EDT ,
[2022-11-15 12:45] LABS: ALB/GLOB Ratio 0.7 RATIO (0.9-2.4); AST(SGOT) 57 U/L (15-37); Alanine Aminotransfer ALT/SGPT 76 U/L (13-56); Albumin, Serum 3.3 g/dL (3.2-5.0); Alkaline Phosphatase 127 U/L (45-117); Anion Gap 3 (5-15); BUN 11 mg/dL (7-18); BUN/Creat Ratio 14.7 RATIO (10-20); Calcium,Total 9.3 mg/dL (8.5-10.1); Chloride 108 mmol/L (98-107); Creatinine, Serum 0.75 mg/dL (0.55-1.02); EST Glomerular Filtration Rate 92 mL/min (>60); Est Glom Filt Rate - Afr Amer 111 mL/min (>60); Estimated Creatinine Clearance 94.28 ml/min; Globulin 4.5 g/dL (2.2-4.2); Glucose 103 mg/dL (74-106); Potassium 3.7 mmol/L (3.5-5.1); Protein, Total 7.8 g/dL (6.4-8.2); Sodium Level 141 mmol/L (136-145); Troponin-I HS 5 pg/mL (3.0-54.0)
[2022-11-15 13:02] LABS: Absolute Lymphocyte Count 2.02 X10^3/uL (0.83-4.51); Absolute Neutrophil Count 5.4 X10^3/uL (2.0-7.7); Basophil# 0.01 X10^3/uL; Basophil% 0.1 % (0-1); Eosinophil# 0.14 X10^3/uL; Eosinophils% 1.7 % (0-5); Hematocrit 45.9 % (37-47); Hemoglobin 14.5 g/dL (12.0-15.0); Lymphocyte # 2.02 X10^3/ul (0.83-4.51); Lymphocyte % 24.8 % (19-41); Mean Corp Hgb Conc 31.6 g/dL (32-36); Mean Corpuscular Hgb 27.8 pg (27.0-32.0); Mean Corpuscular Volume 87.9 fL (81-99); Mean Platelet Vol. 12.1 fl (6.2-12.0); Monocyte# 0.57 X10^3/uL; NRBC Flagged by Analyzer 0 % (0-5); Neutrophil # 5.38 X10^3/uL (2.7-7.7); Neutrophil % 66.2 % (47-70); Platelet Count 189 K/mm3 (150-450); RBC Distribution Width CV 13.8 % (11.6-14.6); RBC Distribution Width SD 44.6 fl (35.1-43.9); Red Blood Count 5.22 M/mm3 (4.2-5.4); White Blood Count 8.1 K/mm3 (4.4-11.0)
[2022-11-15 13:42] VITALS: BP 127/89; PULSE 57; RESP 21; O2SAT 98
== END 2022-11-15 13:52 | disposition home or self-care (01) ==
PROVIDERS: Emergency Provider Emergency Medicine; PCP Physician Assistant Medical; Visit Provider Emergency Medicine
DX: R07.89 Other chest pain (principal); Z87.891 Personal history of nicotine dependence
CPT/HCPCS: 71045; 80053; 84484; 85025; 93005; 96374; 99283; A4216

== ENCOUNTER 2023-01-05 07:11 | Emergency (ER) | payer OTHER, SELFPAY ==
[2023-01-05 07:12] VITALS: BP 141/90; PULSE 63; RESP 14; TEMP 36.7; O2SAT 97; BMI 51.2
--- NOTE | 2023-01-05 07:33 | EDS_ITS ---
HPI History of Present Illness Chief Complaint: Chest Pain Informant: patient Onset/Context/Timing Onset: Weeks (1.5) Activity at onset: sudden Timing: Intermittent and Lasts (Few minutes) Quality: Positive for Aching and Burning Location: Substernal, Right Chest and Left Chest Worsened By: Nothing Relieved By: Nothing Associated Symptoms: Positive for Nausea, Dyspnea and Palpitations; Negative for Vomiting, Diaphoresis, Cough, Fever, Lightheadedness or Acid Reflux Narrative Narrative: Patient presents with chest pain that has been intermittent over the last week to 1-1/2 weeks. Patient states it comes on rather suddenly. Patient states it only last for a few minutes. Patient describes it as a burning and aching. Patient states it is diffuse across her chest. Patient states it is different than the pain she had with her V. tach. Patient states nothing makes it worse and nothing makes it better. Patient does admit to some nausea but denies any vomiting. Patient does admit to some shortness of breath. Patient admits to some dizziness that she describes as a spinning sensation. Patient also admits to some palpitations. 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 IBS (irritable bowel syndrome) Iron deficiency Iron deficiency anemia Liver disease Morbid obesity Obesity BRISEYDA on CPAP Paroxysmal ventricular tachycardia PTSD (post-traumatic stress disorder) Seasonal allergies Vitamin D deficiency Vitamin deficiency Home Medications levothyroxine 100 mcg tablet 100 mcg PO MOTUWETHFRSA THYROID 11/10/17 [History Last Taken 09/17/18] omeprazole 20 mg capsule,delayed release 20 mg PO DAILY ACID REFLUX 09/17/18 [History Last Taken 09/16/18] hydrochlorothiazide 25 mg tablet 25 mg PO DAILY 12/14/18 [History Last Taken Unknown] aspirin 81 mg chewable tablet 81 mg PO DAILY@0800 06/28/19 [History Last Taken Unknown] lorazepam 1 mg tablet 1 mg PO TID PRN PRN Anxiety 04/24/20 [History Last Taken Unknown] polysaccharide iron complex 150 mg iron capsule 150 mg PO DAILYCM #90 caps 04/28/20 [Rx Last Taken Unknown] venlafaxine 75 mg capsule,extended release 24 hr 75 mg PO BID 04/28/20 [History Last Taken Unknown] cholecalciferol (vitamin D3) 125 mcg (5,000 unit) capsule 125 mcg PO DAILY 11/26/20 [History Last Taken Unknown] Allergy/AdvReac Type Severity Reaction Status Date / Time cholecalciferol (vitamin D3) Allergy Hives Verified 01/05/23 07:12 [From Vitamin D3] ergocalciferol (vitamin D2) Allergy Hives Verified 01/05/23 07:12 [From Vitamin D2] nadolol Allergy Hives Verified 01/05/23 07:12 Penicillins Allergy Hives Verified 01/05/23 07:12 bupropion [From Wellbutrin] AdvReac Unknown Verified 01/05/23 07:12 hydrocodone bitartrate AdvReac Other Verified 01/05/23 07:12 [From Vicodin] morphine AdvReac Nausea Verified 01/05/23 07:12 Family History Father Family history of acute myocardial infarction Grandfather Heart problem paternal Grandmother Heart problem paternal Family history of diabetes mellitus paternal Uncle Family history of diabetes mellitus paternal Mother Family history of hypercholesterolemia Family history of hypertension Unknown Family history of thyroid disease Other Anxiety Arthritis Autoimmune disease Depression Heart disease Kidney disease Liver disease Myocardial infarction Surgical History History of History of cholecystectomy History of left heart catheterization (09/18/18) History of liver biopsy History of radiofrequency ablation procedure for cardiac arrhythmia (09/25/18) History of tonsillectomy History of tubal ligation Social History Smoking Status: Former smoker ROS ROS ED Constitutional Constitutional ED: Denies chills or fever(s) Eyes Eyes: Denies blurry vision or change in vision ENT ENT ED: Denies rhinorrhea or sore throat Cardiovascular Cardiovascular: Reports chest pain and palpitations Respiratory/Chest Respiratory/Chest: Reports dyspnea; Denies cough Gastrointestinal Gastrointestinal: Reports nausea; Denies abdominal pain or vomiting Genitourinary Genitourinary ED: Denies dysuria or hematuria Musculoskeletal Musculoskeletal: Reports back pain and neck pain Integumentary Denies abscess or rash Neurologic Neurologic: Reports headache(s); Denies weakness Allergic/Immunologic Allergic/Immunologic ED: Denies mouth swelling or urticaria EXAM Physical Exam Const Vital Signs: 01/05/23 07:12 01/05/23 07:25 Temperature 98.1 F Temperature Source Temporal Pulse Rate 63 Respiratory Rate 14 Respiratory Effort Normal Blood Pressure 141/90 H Blood Pressure Mean 107 Pulse Ox 97 Oxygen Delivery Method Room Air Positive well nourished, well developed and obese General Appearance ED: well developed and NAD Nutritional Appearance: obese HEENT normocephalic and atraumatic Eyes PERRL and EOMs intact bilaterally Neck supple and no JVD Chest Wall inspection of chest normal and palpation of chest normal Resp normal respiratory effort and clear to auscultation bilaterally Effort and Inspection: Negative for respiratory distress Cardio regular rate and regular rhythm GI normal to inspection, nondistended, normoactive bowel sounds, soft to palpation, non-tender and non-distended Extremity normal to inspection General Extremety ED: Negative for edema or tenderness General Extremity: Negative for edema Neuro oriented x3, CN's II-XII intact bilaterally and no sensory deficits noted Sensorium / Orientation: awake and alert Motor Exam: strength 5/5 throughout Psych mental status grossly normal Heart Score History: Slightly/Non-Suspicious ECG: Normal Age: </= 45 years Risk Factors: 1 or 2 Risk Factors Troponin: </= Normal Limit Score: 1 MDM MDM MDM Narrative Medical decision making narrative: Differential diagnosis includes cardiac dysrhythmia, cardiac ischemia, pneumonia, pneumothorax, gastritis, and palpitations. EKG will be obtained to assess for cardiac dysrhythmia and cardiac ischemia. Chest x-ray will be obtained to assess for pneumonia and pneumothorax. CBC will be obtained to assess for anemia and leukocytosis. Basic metabolic profile will be obtained to assess for electrolyte abnormality and renal function. High-sensitivity troponin will be obtained to assess for cardiac ischemia. Lab Data Attestation: I reviewed the patient's lab results. Lab results narrative: CBC was reviewed and was within normal limits. Basic metabolic profile was reviewed and was within normal limits. High-sensitivity troponin was reviewed and was normal. Labs: Laboratory Results - last 24 hr 01/05/23 01/05/23 07:50 07:50 WBC 8.0 RBC 5.30 Hgb 14.9 Hct 46.0 MCV 86.8 MCH 28.1 MCHC 32.4 RDW Std Deviation 42.5 RDW Coeff of Jocelyne 13.4 Plt Count 171 MPV 12.0 Immature Gran % (Auto) 0.400 Neut % (Auto) 69.1 Lymph % (Auto) 21.3 Anderson % (Auto) 7.9 Eos % (Auto) 1.0 Baso % (Auto) 0.3 Absolute Neuts (auto) 5.5 Absolute Lymphs (auto) 1.69 Nucleated RBC % 0 Sodium 139 Potassium 4.0 Chloride 105 Carbon Dioxide 26.0 Anion Gap 8 BUN 9 Creatinine 0.67 Estim Creat Clear Calc 105.53 Est GFR (MDRD) Af Amer 126 Est GFR (MDRD) Non-Af 104 BUN/Creatinine Ratio 13.4 Glucose 99 Calcium 9.1 Troponin I High Sens 6 Radiography Diagnostic Testing: Clinical Impression(s) from Imaging Studies Chest X-Ray 01/05/23 08:04 IMPRESSION: No acute cardiopulmonary process identified. Electronically Signed: Danuta Griffin MD at 8:39 EDT , Portable 1 view chest x-ray was obtained. On my independent interpretation, lung palma are clear. There is normal cardiac silhouette. Bony thorax is normal. There is no acute process noted. Radiologist also interpreted the x- ray and agrees. EKG Initial EKG: Attestation: I personally reviewed and interpreted this EKG as follows: Interpretation: Sinus Rhythm (66) and No Acute Injury Pattern Comments: EKG was obtained. On my independent interpretation, it showed a normal sinus rhythm with a rate of 66. [place] interval, QRS interval, and QTc intervals were all normal. [place] was normal. There are no acute ST or T wave changes. Prior: Unchanged (11/15/2022) Treatment and Re-Evaluation :: Patient is feeling better on reevaluation. Patient was advised of her findings. Patient has a HEART score of 1. Patient was advised that this is low risk for acute cardiac event. Patient states she does have an appointment to have a Holter monitor placed in the near future. Patient states she is scheduled to have this before her as400 operator follow-up appointment. Patient was instructed to continue this as scheduled. Patient was instructed to follow-up with her primary care physician in 5 to 7 days. Patient understood and was agreeable with the plan. All questions were answered. Discharge Plan Triage Chief Complaint: Chest Pain ED Provider: Garry Conn Dx/Rx/DC Orders Clinical Impression: Chest pain of uncertain etiology Instructions: ED Chest Pain, Uncertain Cause Prescriptions: No Action cholecalciferol (vitamin D3) 125 mcg (5,000 unit) capsule 125 mcg PO DAILY levothyroxine 100 MCG tablet 100 mcg PO MOTUWETHFRSA Rx Instructions: does not take Sundays omeprazole 20 MG capsule 20 mg PO DAILY hydrochlorothiazide 25 MG tablet 25 mg PO DAILY Label Comments: TAKE 1 TABLET BY MOUTH EVERY DAY NEEDED aspirin 81 MG tablet,chewable 81 mg PO DAILY@0800 lorazepam 1 MG tablet 1 mg PO TID PRN PRN (Reason: Anxiety) venlafaxine 75 MG capsule,extended release 24hr 75 mg PO BID polysaccharide iron complex 150 MG capsule 150 mg PO DAILYCM Qty: 90 3RF Stand Alone Forms: Work / School Excuse Primary Care Provider: Marjorie Arzate Referrals: Marjorie Arzate PA [Primary Care Provider] - 5-7 Days Disposition Disposition: Home, Self Care
--- NOTE | 2023-01-05 07:46 | EKG12_ITS ---
Test Reason : PALPS Blood Pressure : / mmHG Vent. Rate : 066 BPM Atrial Rate : 066 BPM P-R Int : 152 ms QRS Dur : 078 ms QT Int : 428 ms P-R-T Axes : 041 -02 027 degrees QTc Int : 448 ms Normal sinus rhythm Normal ECG Confirmed by WILLARD COPELAND, JYOTHI ([id number]), supervising editor trailer CURLY CUEVAS ([id number]) on 01/09/2023 11:38:41 AM Referred By: JOSE Confirmed By:JYOTHI LAMAR MD
[2023-01-05] MEDS: Aspirin 81 MG TAB.CHEW 324 MG PO (07:58)
[2023-01-05 08:02] LABS: Absolute Lymphocyte Count 1.69 X10^3/uL (0.83-4.51); Absolute Neutrophil Count 5.5 X10^3/uL (2.0-7.7); Basophil# 0.02 X10^3/uL; Basophil% 0.3 % (0-1); Eosinophil# 0.08 X10^3/uL; Hemoglobin 14.9 g/dL (12.0-15.0); Lymphocyte # 1.69 X10^3/ul (0.83-4.51); Lymphocyte % 21.3 % (19-41); Mean Corp Hgb Conc 32.4 g/dL (32-36); Mean Corpuscular Hgb 28.1 pg (27.0-32.0); Mean Corpuscular Volume 86.8 fL (81-99); Monocyte# 0.63 X10^3/uL; Monocyte% 7.9 % (0-10); NRBC Flagged by Analyzer 0 % (0-5); Neutrophil % 69.1 % (47-70); Platelet Count 171 K/mm3 (150-450); RBC Distribution Width CV 13.4 % (11.6-14.6); RBC Distribution Width SD 42.5 fl (35.1-43.9)
--- NOTE | 2023-01-05 08:03 | NURSING ---
Pt asks this RN if she would be allowed to take one of her own ativan at this time. Asked Dr. Conn who stated pt was allowed to take a dose. Upon return to the room, the patient is tachy in the 130s, stating she feels like she is burning all over and having a panic attack. Pt instructed to take an ativan of hers (1 mg tablet) which she took at 0802. Pt HR returned to the 70s. Assured pt we are watching monitor at all times for life-threating cardiac activity.
--- NOTE | 2023-01-05 08:04 | RAD_ITS ---
HISTORY: chest pain. TECHNIQUE: XR Chest 1 View. COMPARISON: 11/15/2022. FINDINGS: CARDIOMEDIASTINAL BORDERS: Cardiac silhouette within normal limits in size. Mediastinal contour unremarkable. LUNGS: Radiographically clear. PLEURA: No pleural effusion or pneumothorax seen. OSSEOUS STRUCTURES: Unremarkable. RAD/Chest 1 View (Portable) IMPRESSION: No acute cardiopulmonary process identified. Electronically Signed: Danuta Griffin MD at 8:39 EDT ,
[2023-01-05 08:24] LABS: Anion Gap 8 (5-15); BUN 9 mg/dL (7-18); BUN/Creat Ratio 13.4 RATIO (10-20); Calcium,Total 9.1 mg/dL (8.5-10.1); Chloride 105 mmol/L (98-107); Creatinine, Serum 0.67 mg/dL (0.55-1.02); EST Glomerular Filtration Rate 104 mL/min (>60); Est Glom Filt Rate - Afr Amer 126 mL/min (>60); Estimated Creatinine Clearance 105.53 ml/min; Glucose 99 mg/dL (74-106); Sodium Level 139 mmol/L (136-145); Troponin-I HS 6 pg/mL (3.0-54.0)
== END 2023-01-05 10:16 | disposition home or self-care (01) ==
PROVIDERS: Emergency Provider Emergency Medicine; PCP Physician Assistant Medical; Visit Provider Emergency Medicine
DX: R07.9 Chest pain, unspecified (principal); Z87.891 Personal history of nicotine dependence; E03.8 Other specified hypothyroidism; Z79.899 Other long term (current) drug therapy; K21.9 Gastro-esophageal reflux disease without esophagitis; Z79.82 Long term (current) use of aspirin; F41.9 Anxiety disorder, unspecified; D50.9 Iron deficiency anemia, unspecified
CPT/HCPCS: 71045; 80048; 84484; 85025; 93005; 99285; A4216

== ENCOUNTER 2023-10-03 09:50 | Emergency (ER) | payer OTHER, SELFPAY ==
[2023-10-03 09:51] VITALS: BP 154/93; PULSE 82; RESP 18; TEMP 36.9; O2SAT 100; BMI 51.2
--- NOTE | 2023-10-03 10:06 | ED.VIS.CHEST ---
HPI History of Present Illness Chief Complaint: Chest Pain Detail of Chief Complaint: Left-sided sharp chest discomfort Informant: patient Onset/Context/Timing Onset: Today (Numerous episodes today varying in duration from 1 to 2 hours.) and Yesterday (First episode at 2030 with a 2-hour duration) Activity at onset: sudden Timing: Intermittent Quality: Positive for Burning and Sharp Location: Left Parasternal Current Severity: Mild Maximum Severity: Moderate Worsened By: Movement of Arm; Not Worsened By Exertion, Eating, Palpation, Breathing or Coughing Relieved By: Nothing Associated Symptoms: Negative for Nausea, Vomiting, Diaphoresis, Dyspnea, Cough, Fever, Lightheadedness, Acid Reflux or Palpitations Narrative Narrative: Patient is a 38-year-old woman with history of hypothyroidism due to Konrad's thyroiditis, V. 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 She also had episode of burning. She does have a history of reflux. She denies black or maroon-colored stool. She did report pain going to her left upper extremity. She had no associated symptoms. She states she does have anxiety. She has been under significant stress since her father recently . 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 Astorga who recommended she come to the emergency department because she complained of chest pain. She was trying to set up an appointment because of increased palpitations over the past 1 to 2 weeks. She denies leg pain, swelling discoloration. She denies orthopnea or PND. She denies black or maroon-colored stool. She presently is not on an anticoagulant. She does take a baby aspirin a day. She is also on omeprazole for her GERD. Prior Similar Symptoms: No Recent Illness/Hospitalization: No CVD Risk Factors: Positive for Hypercholesterolemia (Recent blood work) and Smoking (Former); Negative for Hypertension, Diabetes or Family History 1' </=55 PE Risk Factors: Positive for Prior DVT or PE; Negative for Recent Travel/Surgery, Recent Immobilization, Cancer or OCP + Smoking + >/=35 TAD Risk Factors: Negative for Marfan's Syndrome, Hypertension or Family History [facility] Medical History Itbbp-[id number] deficiency Ankylosing spondylitis Anxiety Arthritis Back problem blood clot GERD (gastroesophageal reflux disease) High serum fibrinogen History of pulmonary embolism Hypergammaglobulinemia, unspecified Hypothyroidism 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 IBS (irritable bowel syndrome) Iron deficiency Iron deficiency anemia Liver disease Morbid obesity Obesity BRISEYDA on CPAP Paroxysmal ventricular tachycardia PTSD (post-traumatic stress disorder) Seasonal allergies Vitamin D deficiency Vitamin deficiency Home Medications levothyroxine 100 mcg tablet 100 mcg PO MOTUWETHFRSA THYROID 11/10/17 [History Last Taken 09/17/18] omeprazole 20 mg capsule,delayed release 20 mg PO DAILY ACID REFLUX 09/17/18 [History Last Taken 09/16/18] hydrochlorothiazide 25 mg tablet 25 mg PO DAILY 12/14/18 [History Last Taken Unknown] aspirin 81 mg chewable tablet 81 mg PO DAILY@0800 06/28/19 [History Last Taken Unknown] lorazepam 1 mg tablet 1 mg PO TID PRN PRN Anxiety 04/24/20 [History Last Taken Unknown] polysaccharide iron complex 150 mg iron capsule 150 mg PO DAILYCM #90 caps 04/28/20 [Rx Last Taken Unknown] venlafaxine 75 mg capsule,extended release 24 hr 75 mg PO BID 04/28/20 [History Last Taken Unknown] cholecalciferol (vitamin D3) 125 mcg (5,000 unit) capsule 125 mcg PO DAILY 11/26/20 [History Last Taken Unknown] Allergy/AdvReac Type Severity Reaction Status Date / Time cholecalciferol (vitamin D3) Allergy Hives Verified 10/03/23 10:06 [From Vitamin D3] ergocalciferol (vitamin D2) Allergy Hives Verified 10/03/23 10:06 [From Vitamin D2] nadolol Allergy Hives Verified 10/03/23 10:06 Penicillins Allergy Hives Verified 10/03/23 10:06 bupropion [From Wellbutrin] AdvReac Unknown Verified 10/03/23 10:06 hydrocodone bitartrate AdvReac Other Verified 10/03/23 10:06 [From Vicodin] morphine AdvReac Nausea Verified 10/03/23 10:06 Family History Father Family history of acute myocardial infarction Grandfather Heart problem paternal Grandmother Heart problem paternal Family history of diabetes mellitus paternal Uncle Family history of diabetes mellitus paternal Mother Family history of hypercholesterolemia Family history of hypertension Unknown Family history of thyroid disease Other Anxiety Arthritis Autoimmune disease Depression Heart disease Kidney disease Liver disease Myocardial infarction Surgical History History of History of cholecystectomy History of left heart catheterization (09/18/18) History of liver biopsy History of radiofrequency ablation procedure for cardiac arrhythmia (09/25/18) History of tonsillectomy History of tubal ligation Social History (Updated 10/03/23 @ 10:[address] Anam Garcia MD) household members: significant other Smoking Status: Former smoker ROS ROS ED Constitutional Constitutional ED: Denies chills, fever(s), subjective, sweats or weight loss Eyes Eyes: Reports none; Denies blurry vision, change in vision or diplopia ENT ENT ED: Denies ear pain, rhinorrhea or sore throat Cardiovascular Cardiovascular: Reports as per HPI; Denies orthopnea or paroxysmal nocturnal dyspnea Respiratory/Chest Respiratory/Chest: Denies cough, dyspnea, dyspnea on exertion, orthopnea or paroxysmal nocturnal dyspnea Gastrointestinal Gastrointestinal: Denies abdominal pain, nausea or vomiting Genitourinary Genitourinary ED: Denies dysuria, hematuria or urinary frequency Musculoskeletal Musculoskeletal: Denies arthralgias, back pain or neck pain Neurologic Neurologic: Denies headache(s), paresthesias or weakness Psychiatric Psychiatric: Reports anxiety and depression Endocrine Endocrinology: Denies cold intolerance or heat intolerance Hematologic/Lymphatic Hematologic/Lymphatic: Denies easy bleeding or easy bruising EXAM Physical Exam Const Vital Signs: 10/03/23 09:51 10/03/23 10:06 Temperature 98.4 F Temperature Source Temporal Pulse Rate 82 Respiratory Rate 18 Respiratory Effort Normal Non-Labored Blood Pressure 154/93 H Blood Pressure Mean 113 Pulse Ox 100 Oxygen Delivery Method Room Air Positive well nourished, well developed and obese; Negative for cachectic, contractures or unkempt Constitutional Narrative: Patient is tearful. She is apologetic. General Appearance ED: well developed and pallor; Negative for unkempt, cachectic or contractures Nutritional Appearance: obese; Negative for cachectic HEENT Reports moist mucous membranes normocephalic and atraumatic Eyes PERRL and EOMs intact bilaterally General Eye ED: Negative for pale conjunctiva or scleral icterus Neck no lymphadenopathy, supple and no JVD Chest Wall inspection of chest normal and palpation of chest normal Chest Narrative: Complained of mild discomfort left side. This did not reproduce her pain exactly. Resp normal respiratory effort and clear to auscultation bilaterally Cardio regular rate, regular rhythm, S1 normal heart sound, S2 normal heart sound and no murmurs GI normal to inspection, nondistended, normoactive bowel sounds, soft to palpation, non-tender and non-distended; Negative for hepatosplenomegaly or no masses Back/Spine no CVA tenderness and no thoracic nor lumbar tenderness Extremity normal to inspection General Extremety ED: Negative for edema, pulses abnormal or tenderness General Extremity: Negative for edema or pulses abnormal Neuro oriented x3, CN's II-XII intact bilaterally, no sensory deficits noted and gait normal Sensorium / Orientation: awake and alert Psych Appearance: Negative for unkempt Mood & Affect: anxious and tearful Skin no rashes or lesions noted and no wounds General Skin Exam: pallor; Negative for jaundice Heart Score History: Slightly/Non-Suspicious ECG: Normal Age: </= 45 years Risk Factors: 1 or 2 Risk Factors Score: 1 MDM MDM MDM Narrative Medical decision making narrative: Differential diagnosis is cardiac versus noncardiac etiology. Noncardiac etiology would include anxiety, reflux, combination of anxiety and reflux, palpitations may be due to premature ventricular beats which she has a history of. Will obtain electrolyte panel to assess potassium. Troponin was obtained as well as EKG to evaluate for any acute ischemia or ectopy. Prior records were reviewed. History & Record Review Additional record(s) reviewed:: Prior outpatient record, Prior ED visit and Prior labs Lab Data Attestation: I reviewed the patient's lab results. Lab results narrative: CBC without differential is normal. This is unchanged from prior. Basic metabolic panel is normal. First troponin is 6. 2-hour troponin is 6 with a delta of 0. With both numbers below 7 cardiac etiology has been ruled out. Labs: Laboratory Results - last 24 hr 10/03/23 10/03/23 10:10 12:30 WBC 10.3 RBC 5.20 Hgb 14.9 Hct 44.9 MCV 86.3 MCH 28.7 MCHC 33.2 RDW Std Deviation 41.5 RDW Coeff of Jocelyne 13.2 Plt Count 185 MPV 11.2 Sodium 135 L Potassium 3.7 Chloride 104 Carbon Dioxide 29.0 Anion Gap 2 L BUN 13 Creatinine 0.67 Estim Creat Clear Calc 158.86 Est GFR (MDRD) Af Amer 125 Est GFR (MDRD) Non-Af 103 BUN/Creatinine Ratio 19.3 Glucose 88 Calcium 9.1 Troponin I High Sens 6 6 EKG Initial EKG: Attestation: I personally reviewed and interpreted this EKG as follows: Interpretation: Sinus Rhythm (Rate is 70. The EKG is normal. There is a normal variant with sinus arrhythmia. NV interval is 148 ms. QRS duration 80 ms. QT duration 400 ms. 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, Obesity, Ovcnv-2-juzgqcyfeny deficiency, Anxiety as acute reaction to gross stress Instructions: ED Anxiety Reaction, ED Chest Pain, Noncardiac Prescriptions: No Action cholecalciferol (vitamin D3) 125 mcg (5,000 unit) capsule 125 mcg PO DAILY levothyroxine 100 MCG tablet 100 mcg PO MOTUWETHFRSA Rx Instructions: does not take Sundays omeprazole 20 MG capsule 20 mg PO DAILY hydrochlorothiazide 25 MG tablet 25 mg PO DAILY Patient Comments: TAKE 1 TABLET BY MOUTH EVERY DAY NEEDED aspirin 81 MG tablet,chewable 81 mg PO DAILY@0800 lorazepam 1 MG tablet 1 mg PO TID PRN PRN (Reason: Anxiety) venlafaxine 75 MG capsule,extended release 24hr 75 mg PO BID polysaccharide iron complex 150 MG capsule 150 mg PO DAILYCM Qty: 90 3RF Primary Care Provider: Marjorie Arzate Referrals: Marjorie Arzate PA [Primary Care Provider] - As Needed Disposition Disposition: Home, Self Care
[2023-10-03 10:20] LABS: Hematocrit 44.9 % (37-47); Hemoglobin 14.9 g/dL (12.0-15.0); Mean Corp Hgb Conc 33.2 g/dL (32-36); Mean Corpuscular Hgb 28.7 pg (27.0-32.0); Mean Corpuscular Volume 86.3 fL (81-99); Mean Platelet Vol. 11.2 fl (6.2-12.0); Platelet Count 185 K/mm3 (150-450); RBC Distribution Width CV 13.2 % (11.6-14.6); RBC Distribution Width SD 41.5 fl (35.1-43.9); White Blood Count 10.3 K/mm3 (4.4-11.0)
[2023-10-03 10:38] LABS: Anion Gap 2 (5-15); BUN 13 mg/dL (7-18); BUN/Creat Ratio 19.3 RATIO (10-20); Calcium,Total 9.1 mg/dL (8.5-10.1); Chloride 104 mmol/L (98-107); Creatinine, Serum 0.67 mg/dL (0.55-1.02); EST Glomerular Filtration Rate 103 mL/min (>60); Est Glom Filt Rate - Afr Amer 125 mL/min (>60); Estimated Creatinine Clearance 158.86 ml/min; Glucose 88 mg/dL (74-106); Potassium 3.7 mmol/L (3.5-5.1); Sodium Level 135 mmol/L (136-145); Troponin-I HS (w/2H Reflex) 6 pg/mL (3.0-54.0)
[2023-10-03 12:14] LABS: Reflex Troponin-HS? (from REC) Y
[2023-10-03 13:00] VITALS: BP 148/70; PULSE 62
[2023-10-03 13:08] LABS: Troponin-I HS 6 pg/mL (3.0-54.0)
[2023-10-03 13:24] VITALS: BP 148/70; PULSE 62
== END 2023-10-03 13:25 | disposition home or self-care (01) ==
PROVIDERS: Emergency Provider Emergency Medicine; PCP Physician Assistant Medical; Visit Provider Emergency Medicine
DX: R07.89 Other chest pain (principal); E88.01 Alpha-1-antitrypsin deficiency; E06.3 Autoimmune thyroiditis; D50.9 Iron deficiency anemia, unspecified; E66.9 Obesity, unspecified; F43.0 Acute stress reaction; Z87.891 Personal history of nicotine dependence; E78.00 Pure hypercholesterolemia, unspecified; E03.8 Other specified hypothyroidism; Z79.899 Other long term (current) drug therapy; K21.9 Gastro-esophageal reflux disease without esophagitis; Z90.49 Acquired absence of other specified parts of digestive tract; F41.8 Other specified anxiety disorders
CPT/HCPCS: 80048; 84484; 85027; 93005; 99284; A4216

== ENCOUNTER 2023-10-19 09:12 | Emergency (ER) | payer OTHER, SELFPAY ==
[2023-10-19 09:13] VITALS: BP 146/92; PULSE 80; RESP 14; TEMP 36.2; O2SAT 99; BMI 51.4
--- NOTE | 2023-10-19 09:22 | EDS_ITS ---
HPI History of Present Illness Chief Complaint: Headache Informant: patient Onset/Context/Timing Onset: Days (5) Context: Sudden Timing: Intermittent Quality -Headache: Positive for Sharp Location: Left parietal area Worsened by: Movement Relieved by: Nothing Associated Symptoms/Injury Associated Symptoms: Positive for Nausea and Sore Throat; Negative for Fever, Vomiting, Sinus Pressure, Numbness, Tingling, Preceding Aura, Visual Changes, Blurred Vision, Photophobia or Visual Loss Injury - MCKINNEY: Negative for Direct Trauma Narrative Narrative: Patient presents with headache that has been intermittent over the last 5 days. Patient states it came on rather suddenly. Patient states it is over the left parietal area. Patient states it is worse with certain movements. Patient states nothing seems to help with it. Patient admits to some nausea but denies any vomiting. Patient admits to mild sore throat. Patient states pain does radiate into her neck. Patient denies any fevers or chills. Patient denies any blurry vision or double vision. 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 IBS (irritable bowel syndrome) Iron deficiency Iron deficiency anemia Liver disease Morbid obesity Obesity BRISEYDA on CPAP Paroxysmal ventricular tachycardia PTSD (post-traumatic stress disorder) Seasonal allergies Vitamin D deficiency Vitamin deficiency Home Medications levothyroxine 100 mcg tablet 100 mcg PO MOTUWETHFRSA THYROID 11/10/17 [History Last Taken 09/17/18] omeprazole 20 mg capsule,delayed release 20 mg PO DAILY ACID REFLUX 09/17/18 [History Last Taken 09/16/18] hydrochlorothiazide 25 mg tablet 25 mg PO DAILY 12/14/18 [History Last Taken Unknown] aspirin 81 mg chewable tablet 81 mg PO DAILY@0800 06/28/19 [History Last Taken Unknown] lorazepam 1 mg tablet 1 mg PO TID PRN PRN Anxiety 04/24/20 [History Last Taken Unknown] polysaccharide iron complex 150 mg iron capsule 150 mg PO DAILYCM #90 caps 04/28/20 [Rx Last Taken Unknown] venlafaxine 75 mg capsule,extended release 24 hr 75 mg PO BID 04/28/20 [History Last Taken Unknown] cholecalciferol (vitamin D3) 125 mcg (5,000 unit) capsule 125 mcg PO DAILY 11/26/20 [History Last Taken Unknown] Allergy/AdvReac Type Severity Reaction Status Date / Time cholecalciferol (vitamin D3) Allergy Hives Verified 10/19/23 09:17 [From Vitamin D3] ergocalciferol (vitamin D2) Allergy Hives Verified 10/19/23 09:17 [From Vitamin D2] nadolol Allergy Hives Verified 10/19/23 09:17 Penicillins Allergy Hives Verified 10/19/23 09:17 bupropion [From Wellbutrin] AdvReac Unknown Verified 10/19/23 09:17 hydrocodone bitartrate AdvReac Other Verified 10/19/23 09:17 [From Vicodin] morphine AdvReac Nausea Verified 10/19/23 09:17 Family History Father Family history of acute myocardial infarction Grandfather Heart problem paternal Grandmother Heart problem paternal Family history of diabetes mellitus paternal Uncle Family history of diabetes mellitus paternal Mother Family history of hypercholesterolemia Family history of hypertension Unknown Family history of thyroid disease Other Anxiety Arthritis Autoimmune disease Depression Heart disease Kidney disease Liver disease Myocardial infarction Surgical History History of History of cholecystectomy History of left heart catheterization (09/18/18) History of liver biopsy History of radiofrequency ablation procedure for cardiac arrhythmia (09/25/18) History of tonsillectomy History of tubal ligation Social History household members: significant other Smoking Status: Former smoker ROS ROS ED Constitutional Constitutional ED: Denies chills or fever(s) Eyes Eyes: Denies blurry vision or change in vision ENT ENT ED: Reports sore throat; Denies rhinorrhea Cardiovascular Cardiovascular: Reports chest pain; Denies palpitations Respiratory/Chest Respiratory/Chest: Denies cough or dyspnea Gastrointestinal Gastrointestinal: Reports nausea; Denies vomiting Genitourinary Genitourinary ED: Denies dysuria or hematuria Musculoskeletal Musculoskeletal: Reports neck pain; Denies back pain Integumentary Denies abscess or rash Neurologic Neurologic: Reports headache(s); Denies weakness Allergic/Immunologic Allergic/Immunologic ED: Denies mouth swelling or urticaria EXAM Physical Exam Const Vital Signs: 10/19/23 09:13 10/19/23 11:13 Temperature 97.2 F L Temperature Source Temporal Pulse Rate 80 Respiratory Rate 14 18 Blood Pressure 146/92 H Blood Pressure Mean 110 Pulse Ox 99 Oxygen Delivery Method Room Air Positive well nourished, well developed and obese General Appearance ED: well developed and NAD Nutritional Appearance: obese HEENT Reports normocephalic tenderness and temporal artery tenderness left Eyes PERRL and EOMs intact bilaterally Neck supple and no JVD Resp normal respiratory effort and clear to auscultation bilaterally Cardio regular rate and regular rhythm GI non-tender and non-distended Palpation: soft Extremity normal to inspection and full ROM General Extremety ED: Negative for edema or tenderness General Extremity: Negative for edema Neuro oriented x3, CN's II-XII intact bilaterally and no sensory deficits noted [place] Coma Scale: document GCS findings Spontaneous Obeys Commands Oriented 15 Sensorium / Orientation: awake and alert Speech: speech normal Motor Exam: strength 5/5 throughout Psych mental status grossly normal MDM MDM MDM Narrative Medical decision making narrative: Differential diagnosis includes temporal arteritis, migraine headache, tension headache, cervical strain, and intracranial bleeding. CT scan of the brain will be obtained to assess for intracranial bleeding. CBC will be obtained to assess for leukocytosis and anemia. Basic metabolic profile will be obtained to assess for electrolyte abnormality and renal function. Sed rate will be obtained to assess for temporal arteritis. Lab Data Attestation: I reviewed the patient's lab results. Lab results narrative: CBC was reviewed and was within normal limits. Basic metabolic profile was reviewed and was within normal limits. Sed rate was reviewed and was normal at 26. Labs: Laboratory Results - last 24 hr 10/19/23 10:05 WBC 6.7 RBC 4.96 Hgb 14.0 Hct 42.9 MCV 86.5 MCH 28.2 MCHC 32.6 RDW Std Deviation 42.6 RDW Coeff of Jocelyne 13.6 Plt Count 173 MPV 11.6 Immature Gran % (Auto) 0.400 Neut % (Auto) 59.7 Lymph % (Auto) 25.5 Rush % (Auto) 12.4 H Eos % (Auto) 1.6 Baso % (Auto) 0.4 Absolute Neuts (auto) 4.0 Absolute Lymphs (auto) 1.70 Nucleated RBC % 0 ESR 26 Sodium 139 Potassium 3.9 Chloride 110 H Carbon Dioxide 26.0 Anion Gap 3 L BUN 14 Creatinine 0.64 Estim Creat Clear Calc 166.54 Est GFR (MDRD) Af Amer 132 Est GFR (MDRD) Non-Af 109 BUN/Creatinine Ratio 21.9 H Glucose 97 Calcium 9.3 Radiography Diagnostic Testing: Clinical Impression(s) from Imaging Studies Brain CT 10/19/23 09:52 IMPRESSION: Normal unenhanced CT scan of the brain. Electronically Signed: Gray Reyes MD at 10:22 EST , CT scan of the brain was obtained. There is no acute intracranial abnormality. This was interpreted by the radiologist and was also independently reviewed by myself. Treatment and Re-Evaluation Narrative: Patient was given IV fluids, Reglan, Benadryl, and Toradol. Patient states her headache is improving. Patient was instructed to rest in a dark quiet room. Patient was instructed to follow-up with her primary care physician in 3 to 5 days for further evaluation. Patient understood and was agreeable with the plan. All questions were answered. Discharge Plan Triage Chief Complaint: Headache ED Provider: Garry Conn Dx/Rx/DC Orders Clinical Impression: Headache, Obesity Instructions: ED Headache Unspecified Prescriptions: No Action cholecalciferol (vitamin D3) 125 mcg (5,000 unit) capsule 125 mcg PO DAILY levothyroxine 100 MCG tablet 100 mcg PO MOTUWETHFRSA Rx Instructions: does not take Sundays omeprazole 20 MG capsule 20 mg PO DAILY hydrochlorothiazide 25 MG tablet 25 mg PO DAILY Patient Comments: TAKE 1 TABLET BY MOUTH EVERY DAY NEEDED aspirin 81 MG tablet,chewable 81 mg PO DAILY@0800 lorazepam 1 MG tablet 1 mg PO TID PRN PRN (Reason: Anxiety) venlafaxine 75 MG capsule,extended release 24hr 75 mg PO BID polysaccharide iron complex 150 MG capsule 150 mg PO DAILYCM Qty: 90 3RF Primary Care Provider: Marjorie Arzate Referrals: Marjorie Arzate PA [Primary Care Provider] - 3-5 Days Disposition Disposition: Home, Self Care
--- NOTE | 2023-10-19 09:52 | CT_ITS ---
STUDY: CT BRAIN WITHOUT CONTRAST REASON FOR EXAM: Female, 38 years old. 3 day history of left-sided headaches. RADIATION DOSAGE (If Supplied By Facility): CTDIvol = ( 44.99 ) mGy, DLP = ( 796.11 ) mGycm TECHNIQUE: Transaxial CT imaging of the brain was performed without administration of intravenous contrast material. Individualized dose optimization techniques were used for this CT. COMPARISON: No relevant priors. FINDINGS: Normal soft tissue structures. Normal calvarium. Normal size ventricles and extra-axial spaces for the patient''s age. Normal white matter tracts of the cerebral hemispheres. Normal basal ganglia and thalami. Normal brainstem. Normal cerebellum. There is no intracranial hemorrhage. There are no findings of an acute ischemic infarction. Normal visualized paranasal sinuses. CT/Brain/Head without Contrast IMPRESSION: Normal unenhanced CT scan of the brain. Electronically Signed: Gray Reyes MD at 10:22 EST ,
[2023-10-19 10:37] LABS: Anion Gap 3 (5-15); BUN 14 mg/dL (7-18); BUN/Creat Ratio 21.9 RATIO (10-20); Calcium,Total 9.3 mg/dL (8.5-10.1); Chloride 110 mmol/L (98-107); Creatinine, Serum 0.64 mg/dL (0.55-1.02); EST Glomerular Filtration Rate 109 mL/min (>60); Est Glom Filt Rate - Afr Amer 132 mL/min (>60); Estimated Creatinine Clearance 166.54 ml/min; Glucose 97 mg/dL (74-106); Potassium 3.9 mmol/L (3.5-5.1); Sodium Level 139 mmol/L (136-145)
[2023-10-19 10:39] LABS: Basophil# 0.03 X10^3/uL; Basophil% 0.4 % (0-1); Eosinophil# 0.11 X10^3/uL; Eosinophils% 1.6 % (0-5); Hematocrit 42.9 % (37-47); Lymphocyte % 25.5 % (19-41); Mean Corp Hgb Conc 32.6 g/dL (32-36); Mean Corpuscular Hgb 28.2 pg (27.0-32.0); Mean Corpuscular Volume 86.5 fL (81-99); Mean Platelet Vol. 11.6 fl (6.2-12.0); Monocyte# 0.83 X10^3/uL; Monocyte% 12.4 % (0-10); NRBC Flagged by Analyzer 0 % (0-5); Neutrophil # 3.97 X10^3/uL (2.7-7.7); Neutrophil % 59.7 % (47-70); Platelet Count 173 K/mm3 (150-450); RBC Distribution Width CV 13.6 % (11.6-14.6); RBC Distribution Width SD 42.6 fl (35.1-43.9); Red Blood Count 4.96 M/mm3 (4.2-5.4); White Blood Count 6.7 K/mm3 (4.4-11.0)
[2023-10-19 10:44] LABS: Erythrocyte Sedimentation Rate 26 mm/hr (0-30)
[2023-10-19 11:13] VITALS: RESP 18
[2023-10-19] MEDS: DiphenhydrAMINE 50 MG/ML Syringe 25 MG IV (11:27)
[2023-10-19] MEDS: Ketorolac 30 MG/ML Syringe IV (11:28)
[2023-10-19] MEDS: 0.9% Normal Saline (1000mL) 1,000 ML 999 ML IV (11:29)
[2023-10-19] MEDS: Metoclopramide 10 MG/2 ML Vial IV (11:30)
[2023-10-19 12:00] VITALS: BP 132/98; PULSE 84; RESP 18; TEMP 36.7; O2SAT 99
== END 2023-10-19 13:04 | disposition home or self-care (01) ==
PROVIDERS: Emergency Provider Emergency Medicine; PCP Physician Assistant Medical; Visit Provider Emergency Medicine
DX: R51.9 Headache, unspecified (principal); E66.9 Obesity, unspecified; Z87.891 Personal history of nicotine dependence; G47.33 Obstructive sleep apnea (adult) (pediatric); Z99.89 Dependence on other enabling machines and devices; E03.9 Hypothyroidism, unspecified; Z79.899 Other long term (current) drug therapy; Z79.82 Long term (current) use of aspirin; F41.9 Anxiety disorder, unspecified; Z90.49 Acquired absence of other specified parts of digestive tract
CPT/HCPCS: 70450; 80048; 85025; 85652; 99282; J7030; A4216

== ENCOUNTER → 2024-03-02 | Outpatient (CLI) | payer OTHER, SELFPAY ==
[2024-03-02 10:05] LABS: Absolute Lymphocyte Count 1.89 X10^3/uL (0.83-4.51); Absolute Neutrophil Count 5.5 X10^3/uL (2.0-7.7); Basophil# 0.01 X10^3/uL; Basophil% 0.1 % (0-1); Eosinophils% 1.2 % (0-5); Hematocrit 46.5 % (37-47); Hemoglobin 15.2 g/dL (12.0-15.0); Lymphocyte # 1.89 X10^3/ul (0.83-4.51); Lymphocyte % 23.5 % (19-41); Mean Corp Hgb Conc 32.7 g/dL (32-36); Mean Corpuscular Hgb 28.6 pg (27.0-32.0); Mean Corpuscular Volume 87.4 fL (81-99); Mean Platelet Vol. 11.3 fl (6.2-12.0); Monocyte# 0.54 X10^3/uL; Monocyte% 6.7 % (0-10); NRBC Flagged by Analyzer 0 % (0-5); Neutrophil # 5.47 X10^3/uL (2.7-7.7); Neutrophil % 68.3 % (47-70); Platelet Count 192 K/mm3 (150-450); RBC Distribution Width CV 13.6 % (11.6-14.6); Red Blood Count 5.32 M/mm3 (4.2-5.4)
[2024-03-02 10:33] LABS: Hemoglobin A1c 4.9 % (3.8-5.6)
[2024-03-02 10:34] LABS: ALB/GLOB Ratio 0.8 RATIO (0.9-2.4); AST(SGOT) 34 U/L (15-37); Alanine Aminotransfer ALT/SGPT 57 U/L (13-56); Albumin, Serum 3.6 g/dL (3.2-5.0); Alkaline Phosphatase 117 U/L (45-117); Anion Gap 5 (5-15); BUN 14 mg/dL (7-18); CRP 4.92 mg/L (0.0-3.0); Calcium,Total 9.1 mg/dL (8.5-10.1); Chloride 107 mmol/L (98-107); Cholesterol 218 mg/dL (200); Creatinine, Serum 0.74 mg/dL (0.55-1.02); EST Glomerular Filtration Rate 93 mL/min (>60); Est Glom Filt Rate - Afr Amer 112 mL/min (>60); Ferritin 75 ng/mL (8-252); Globulin 4.3 g/dL (2.2-4.2); Glucose 104 mg/dL (74-106); High Density Lipoprotein 61 mg/dL; Iron 63 ug/dL (50-170); Iron Binding Capacity,Total 310 ug/dL (250-450); Magnesium 2.1 mg/dL (1.6-2.6); PERCENT IRON SATURATION 20.3 % (15.0-55.0); Potassium 4.4 mmol/L (3.5-5.1); Protein, Total 7.9 g/dL (6.4-8.2); Sodium Level 140 mmol/L (136-145); T4 Free Direct 0.96 ng/dL (0.76-1.46); Triglycerides 88 mg/dL; Very Low Density Lipoprotein 18 mg/dL (5-40)
[2024-03-02 11:17] LABS: Erythrocyte Sedimentation Rate 15 mm/hr (0-30)
[2024-03-04 12:15] LABS: Vitamin B12 751 pg/mL (211-911); Vitamin D,25 Hydroxy 31.9 ng/mL
== END | disposition home or self-care (01) ==
PROVIDERS: PCP Physician Assistant Medical; Referring Provider Physician Assistant Medical; Visit Provider Physician Assistant Medical
DX: R73.02 Impaired glucose tolerance (oral) (principal); E66.01 Morbid (severe) obesity due to excess calories; Z68.43 Body mass index [BMI] 50.0-59.9, adult; E03.8 Other specified hypothyroidism; E06.3 Autoimmune thyroiditis; K76.0 Fatty (change of) liver, not elsewhere classified; R79.89 Other specified abnormal findings of blood chemistry; E55.9 Vitamin D deficiency, unspecified; M25.50 Pain in unspecified joint
CPT/HCPCS: 36415; 80053; 80061; 82306; 82607; 82728; 83036; 83540; 83550; 83735; 84439; 84443; 85025; 85652; 86140

== ENCOUNTER → 2024-03-29 | Outpatient (CLI) | payer OTHER, SELFPAY ==
--- NOTE | 2024-03-29 06:58 | BI_ITS ---
MAMMOGRAPHY - BILATERAL SCREENING REASON FOR EXAM: Female, 38 years old. Routine annual screening examination. PERTINENT HISTORY: Non-contributory. TECHNIQUE: Digital bilateral breast liliana (3D mammographic acquisition) in the CC and MLO projections. 2-D mediolateral oblique (MLO) and craniocaudad (CC) views of both breasts were obtained. CAD: Full Field Digital Mammography with Computer Added Detection was performed. COMPARISON: None. Baseline examination. FINDINGS: Breast Composition: There are scattered areas of fibroglandular density. There is a 5 mm well-defined nodule in the slightly upper lateral aspect of the right breast. Correlation with ultrasound is recommended. No other significant abnormalities are identified. BI/SCRN MAMM (CAD)W/LILIANA BILAT IMPRESSION: 5 mm well-defined nodule in the slightly upper outer aspect in the right breast. Correlation with ultrasound is recommended. ASSESSMENT CATEGORY: BIRADS Category 0: Incomplete. Need additional imaging evaluation. A letter regarding these results will be sent to the patient by the facility within 30 days. Approximately 10% of breast cancers are not detected by mammography. A normal mammogram should not delay biopsy of a clinically suspicious abnormality. [id number] Electronically Signed: Gray Reyes MD at 8:25 EDT ,
== END | disposition home or self-care (01) ==
LOC: OPBI 06:56
PROVIDERS: PCP Physician Assistant Medical; Referring Provider Physician Assistant Medical; Visit Provider Physician Assistant Medical
DX: Z12.31 Encounter for screening mammogram for malignant neoplasm of breast (principal); F41.9 Anxiety disorder, unspecified
CPT/HCPCS: 77063; 77067

== ENCOUNTER → 2024-04-05 | Outpatient (CLI) | payer OTHER, SELFPAY ==
--- NOTE | 2024-04-05 14:48 | US_ITS ---
STUDY: ULTRASOUND BREAST - RIGHT REASON FOR EXAM: Female, 38 years old. Abnormal screening mammogram. TECHNIQUE: Axial and longitudinal images of the RIGHT breast were performed with a high resolution ultrasound transducer. # OF IMAGES: 52 COMPARISON: Screening mammogram 03/29/2024 FINDINGS: RIGHT Breast: Heterogeneous background echotexture. At 10:00, 6 cm from nipple, ultrasound confirms a 6 mm oval parallel circumscribed hypoechoic mass with central increased echogenicity consistent with an intramammary lymph node corresponding to the mass seen on mammography.: US/Breast Limited Unilateral IMPRESSION: Ultrasound confirms a 6 mm intramammary lymph node corresponding to the mass seen on mammography. ASSESSMENT CATEGORY: BIRADS Category 2: Benign. A letter regarding these results will be sent to the patient by the facility within 30 days. Electronically Signed: Espinoza Knight MD at 20:32 EDT ,
== END | disposition home or self-care (01) ==
LOC: OPUS 14:47
PROVIDERS: PCP Physician Assistant Medical; Referring Provider Physician Assistant Medical; Visit Provider Physician Assistant Medical
DX: R92.8 Other abnormal and inconclusive findings on diagnostic imaging of breast (principal)
CPT/HCPCS: 76642

== ENCOUNTER 2024-07-31 15:45 | Outpatient (RCR) | payer OTHER, SELFPAY ==
--- NOTE | 2024-07-31 17:39 | HP.PTEVAL_ITS ---
Patient's Visit Information Visit Information Visit Information: CURLY COWART is a 39 year old F referred to Physical Therapy by JNUE Jeronimo with a diagnosis of CERVICALALGIA,LOW BACK PAIN WITH SCIATICA. Date of Evaluation: 07/31/24 Physical Therapist: Danny Mclaughlin, PT, Cert MDT, OCS Visit Plan Frequency: 1x/Week Duration: 4 Weeks Plan: PT INTERVENTIONS POSTURAL EX'S ,KAHLIL EX'S , DLS ,ACTIVITY MODIFICATION ,POSTURE/BODY MECHANICS TRAINING AND MODALITIES PRN Subjective Subjective: This 39 y/o female presents to physical therapy with cervical pain and radiculopathy and lumbar pain , Patient neck and back pain has been worse in past ~ month. Patient has had back pain with radicular symptoms since 2014 which showed HNP and most recently had x-rays in neck/lumbar showed DDD/spondylosis. Pain medication and muscle relaxer. Patient neck pain located cervical and radicular symptoms right> left arm with paresthesia/tingling-.Location lumbar symmetrical and occasional lateral hips. Aggravating factors sitting , turning . Alleviating factors heat. Denies MCKINNEY/nausea/tinnitus . Aggravating factors bending/lifting ,sitting extended walking. Alleviating factors stretching. Bowel/bladder -. Coughing/sneezing - Patient pain affects sleeping. Patient condition affects QOL and function . Patient goals to decrease pain. SOCIAL: VOCATION: [employer] Pain Bilateral: Pain Intensity (Out of 10): 2 Pain Intensity Range: 10 Bilateral Neck: Pain Intensity (Out of 10): 3 Pain Intensity Range: 10 Bilateral Back: Pain Intensity (Out of 10): 5 Objective Objective: POSTURE: Balance/Special Test Scores Oswestry Neck Score: 28 Goals Goal 1:: Patient to be I with HEP for cervical and lumbar Goal Time Frame: 4-6 Weeks Goal 2:: Patient to improve neck oswestry score by 5 points to improve QOL Goal Time Frame: 4-6 Weeks Goal 3:: Patient to improve cervical /lumbar ROM for function of recovery for ADL's Goal Time Frame: 4-6 Weeks Goal 4:: Patient to demonstrate 50% improvement with less pain and improve function cervical and lumbar Goal Time Frame: 4-6 Weeks Goal 5:: Patient posture/body mechanics for ADL and job demands Goal Time Frame: 4-6 Weeks Rehabilitation Potential Physical Therapy Diagnosis: This has cervical and lumbar 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 lumbar and possible derangement neck with pain with position and motion testing thue benefit from skilled PT Rehabilitation Potential: Fair Anticipated Interventions Patient/Client Instruction: Educate patient on: Condition and Plan of Care For the Purpose of:: To decrease pain, To increase ROM, To improve muscle perfo rmance and motor function, To increase tolerance to activity/condition/position, To improve health of tissue, To decrease soft tissue restriction, To increase flexibility/ROM, To improve endurance and To improve tolerance to ADL's Therapeutic Exercise to Include: Strength training, Body mechanics, Flexibilty training and Active ROM For the Purpose of:: To decrease pain, To increase ROM, To improve muscle performance and motor function, To increase tolerance to activity/condition/position, To improve ability of physical actions for home/community/work/leisure, To improve health of tissue, To decrease soft tissue restriction and To increase flexibility/ROM TENS: Yes IF ES: Yes Cryotherapy (ice pack, ice massage): Yes Thermo therapy (hot pack): Yes Ultrasound (thermal/non thermal): Yes For the Purpose of:: To decrease pain, To increase ROM, To improve nutrient delivery to tissue, To increase oxygenation perfusion, To improve health of tissue and To decrease soft tissue restriction Text: Thank you for the opportunity to evaluate your patient. For Medicare and Medicare HMO plans, please review the plan of care and approve it. It will need to be FAXED BACK to us at [phone] for Medicare purposes. For Medicare only, by signing this I certify the plan of care. Please let me know if there are questions or concerns regarding this plan of care. Physician Signature: Date:
--- NOTE | 2025-01-02 15:07 | HP.PT.NRP ---
Patient Information Patient Information: CURLY COWART was seen in my office for initial evaluation on 07/31/24. The following Plan of Care was established for this patient: POC Established Initial Frequency: 1x/Week Initial Duration: 4 Weeks Anticipated Interventions Patient/Client Instruction: Educate patient on: Condition and Plan of Care For the Purpose of:: To decrease pain, To increase ROM, To improve muscle performance and motor function, To increase tolerance to activity/condition/position, To improve health of tissue, To decrease soft tissue restriction, To increase flexibility/ROM, To improve endurance and To improve tolerance to ADL's Therapeutic Exercise to Include: Strength training, Body mechanics, Flexibilty training and Active ROM For the Purpose of:: To decrease pain, To increase ROM, To improve muscle performance and motor function, To increase tolerance to activity/condition/position, To improve ability of physical actions for home/community/work/leisure, To improve health of tissue, To decrease soft tissue restriction and To increase flexibility/ROM TENS: Yes IF ES: Yes Cryotherapy (ice pack, ice massage): Yes Thermo therapy (hot pack): Yes Ultrasound (thermal/non thermal): Yes For the Purpose of:: To decrease pain, To increase ROM, To improve nutrient delivery to tissue, To increase oxygenation perfusion, To improve health of tissue and To decrease soft tissue restriction Last Seen Last Seen: This patient was last seen in our office . Pertinent comments regarding their Physical therapy will appear below: Patient was seen for PT for back and neck pain for HEP At this point I will be discontinuing this patient from physical therapy. I would be happy to see this patient again in the future if found appropriate by the physician. Thank you! Danny Mclaughlin, PT, Cert MDT, OCS Balance/Gait/Functional tests Balance/Special Test Scores Oswestry Neck Score: 28
== END 2024-07-31 19:00 | disposition home or self-care (01) ==
LOC: PT 15:45
PROVIDERS: PCP Physician Assistant Medical; Referring Provider Physician Assistant Medical; Visit Provider Physician Assistant Medical
DX: M54.2 Cervicalgia (principal); M54.40 Lumbago with sciatica, unspecified side; G89.29 Other chronic pain
CPT/HCPCS: 97110; 97162

== ENCOUNTER → 2024-09-12 | Outpatient (CLI) | payer OTHER, SELFPAY | END | disposition home or self-care (01) | PROVIDERS: PCP Physician Assistant Medical; Referring Provider Internal Medicine; Visit Provider Internal Medicine | DX: R00.2 Palpitations (principal) | CPT/HCPCS: 93225; 93226 ==

== ENCOUNTER 2024-10-23 05:48 | Emergency (ER) | payer OTHER, SELFPAY ==
[2024-10-23 05:48] VITALS: BP 144/99; PULSE 74; RESP 16; TEMP 36.5; O2SAT 99; BMI 57.6
--- NOTE | 2024-10-23 05:52 | ED.VIS.LOWEX ---
HPI History of Present Illness HPI Narrative: Patient presents with pain to her left foot and ankle that began earlier this morning. Patient states it woke her up out of her sleep. Patient denies any trauma or injury. Patient states has been constant. Patient describes it as sharp, burning, and aching. Patient also states it feels like there is some throbbing after she has walked on it. Patient states her pain is worse with any weightbearing or ambulation. Patient denies any paresthesias. 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 Liver disease IBS (irritable bowel syndrome) Back problem Arthritis Seasonal allergies Paroxysmal ventricular tachycardia Hypergammaglobulinemia, unspecified High serum fibrinogen PTSD (post-traumatic stress disorder) History of pulmonary embolism Anxiety Iron deficiency anemia Vitamin D deficiency [id number] deficiency GERD (gastroesophageal reflux disease) Ankylosing spondylitis Morbid obesity Home Medications ?Medication ?Instructions ?Recorded ?Last Taken ?Type aspirin 81 mg chewable tablet 81 mg PO DAILY@0800 06/28/19 Unknown History pantoprazole 40 mg tablet,delayed 40 mg PO QDAY #90 tabs 09/11/24 Unknown Rx release Allergy/AdvReac Type Severity Reaction Status Date / Time cholecalciferol (vitamin D3) Allergy Hives Verified 10/23/24 05:49 (From Vitamin D3) ergocalciferol (vitamin D2) Allergy Hives Verified 10/23/24 05:49 (From Vitamin D2) nadolol Allergy Hives Verified 10/23/24 05:49 Penicillins Allergy Hives Verified 10/23/24 05:49 bupropion (From Wellbutrin) AdvReac Itching Verified 10/23/24 05:49 hydrocodone bitartrate (From AdvReac Other Verified 10/23/24 05:49 Vicodin) morphine AdvReac Nausea Verified 10/23/24 05:49 Family History (Updated 09/04/24 @ 08:[address] Lali Hu MD) Father Kidney disease Liver disease Heart problem Thyroid disorder Autoimmune disease rheumatoid and alpha 1 antitrypsin Grandfather Heart problem paternal Grandmother Heart problem paternal Diabetes Uncle Heart problem Diabetes Mother Anxiety Hypertension Hyperlipidemia Other Arthritis Depression Heart disease Myocardial infarction Surgical History H/O wisdom tooth extraction H/O gastric sleeve History of radiofrequency ablation procedure for cardiac arrhythmia (09/25/18) History of tubal ligation History of tonsillectomy History of cholecystectomy History of History of liver biopsy History of left heart catheterization (09/18/18) Social History household members: significant other and family current occupational status: employed 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 Smoking Status: Former smoker quit date: 08/28/18 pack-years: 8 how long ago did patient quit smoking: intermitent for years alcohol intake: never substance use type: does not use diet: ideal protein well-balanced diet: about half the time what type of physical activity do you participate in: walking seatbelt use: always do you feel safe at home: Yes ROS ROS ED Constitutional Constitutional ED: Denies chills or fever(s) Eyes Eyes: Denies blurry vision or change in vision ENT ENT ED: Denies rhinorrhea or sore throat Cardiovascular Cardiovascular: Denies chest pain or palpitations Respiratory/Chest Respiratory/Chest: Denies cough or dyspnea Gastrointestinal Gastrointestinal: Reports nausea; Denies vomiting Genitourinary Genitourinary ED: Denies dysuria or hematuria Musculoskeletal Musculoskeletal: Reports back pain; Denies neck pain Integumentary Denies abscess or rash Neurologic Neurologic: Denies headache(s) or weakness Allergic/Immunologic Allergic/Immunologic ED: Denies mouth swelling or urticaria EXAM Physical Exam Const Vital Signs: 10/23/24 05:48 Temperature 97.7 F L Temperature Source Oral Pulse Rate 74 Respiratory Rate 16 Blood Pressure 144/99 H Blood Pressure Mean 114 Pulse Ox 99 Positive well nourished and well developed Constitutional Narrative: BMI is 57.6 General Appearance ED: well developed and NAD HEENT Reports moist mucous membranes Neck full ROM Extremity Extremity Narrative: There is tenderness over the medial aspect of the left ankle and hindfoot. There is some mild edema. There is no ecchymosis. There is no bony crepitus or step-off. There is no deformity noted. There is no erythema or warmth noted. Range of motion was limited in all motions of the left ankle secondary to pain. Pedal pulses are equal bilaterally. Sensation was intact to light touch in all digits. Capillary refill was less than 2 seconds in all digits. Neuro oriented x3, CN's II-XII intact bilaterally, moves all extremities and no sensory deficits noted Sensorium / Orientation: alert Motor Exam: strength 5/5 throughout Psych mental status grossly normal MDM MDM MDM Narrative Medical decision making narrative: Differential diagnosis includes tendinitis, occult fracture, and sprain. X-rays of the left ankle will be obtained to assess for occult fracture. Radiography Diagnostic Testing: Clinical Impression(s) from Imaging Studies Ankle X-Ray 10/23/24 06:03 IMPRESSION: No definite acute fracture. Tiny ossific densities are noted just posterior to the talus, best seen on the lateral view. Differential includes but not limited to accessory ossicles versus chondromatosis. If patient has pain does not improve over a period of time, may consider MRI. Reading Location: [facility] X-rays of the left ankle were obtained. There are 3 views. On my independent interpretation, there is no acute fracture. There are tiny ossific densities just posterior to the talus. Radiologist also interpreted the x-rays and agrees. Treatment and Re-Evaluation Narrative: Patient was advised of her findings. Patient was given a walking boot. Patient was instructed to ice and elevate her left ankle. Patient states she takes ibuprofen or Tylenol as needed for pain. Patient was instructed to use this as needed. Patient was instructed to follow-up with her primary care physician in 5 to 7 days. Patient understood and was agreeable with the plan. All questions were answered. Discharge Plan Triage Chief Complaint: Lower Extremity Injury ED Provider: Garry Conn Dx/Rx/DC Orders Clinical Impression: Acute left ankle pain Instructions: ED Arthralgia, ED Tendonitis Prescriptions: No Action aspirin 81 MG tablet,chewable 81 mg PO DAILY@0800 pantoprazole 40 mg tablet,delayed release (DR/EC) 40 mg PO QDAY Qty: 90 1RF Primary Care Provider: Marjorie Arzate Referrals: Marjorie Arzate, JUNE [Primary Care Provider] - 5-7 Days Print Language: Yoruba Disposition Disposition: Home, Self Care
--- NOTE | 2024-10-23 06:03 | RAD_ITS ---
PROCEDURE: ANKLE MIN 3 VIEWS REASON FOR EXAM: Injury/pain TECHNIQUE: 3 views of the left ankle COMPARISON: None FINDINGS: There is moderate soft tissue swelling overlying the medial ankle/medial malleolar region. Tiny ossific densities are noted just posterior to the talus, best seen on the lateral view. Differential includes but not limited to accessory ossicles versus chondromatosis. No visible fracture. No suspicious bone lesion.. The ankle mortise is intact. RAD/Ankle min 3 Views IMPRESSION: No definite acute fracture. Tiny ossific densities are noted just posterior to the talus, best seen on the lateral view. Differential includes but not limited to accessory ossicles versus chondromatosis. If patient has pain does not improve over a period of time, may consider MRI. Reading Location: [id number]
[2024-10-23] MEDS: Ibuprofen 600 MG Tablet PO (07:09)
== END 2024-10-23 07:11 | disposition home or self-care (01) ==
PROVIDERS: Emergency Provider Emergency Medicine; PCP Physician Assistant Medical; Visit Provider Emergency Medicine
DX: M25.572 Pain in left ankle and joints of left foot (principal); Z87.891 Personal history of nicotine dependence; K21.9 Gastro-esophageal reflux disease without esophagitis; Z79.899 Other long term (current) drug therapy; Z98.51 Tubal ligation status; Z90.49 Acquired absence of other specified parts of digestive tract
CPT/HCPCS: 73610; 99283

== ENCOUNTER → 2024-11-07 | Outpatient (CLI) | payer OTHER, SELFPAY ==
[2024-11-07 12:26] LABS: Absolute Lymphocyte Count 1.92 X10^3/uL (0.83-4.51); Absolute Neutrophil Count 5.5 X10^3/uL (2.0-7.7); Basophil# 0.03 X10^3/uL; Basophil% 0.4 % (0-1); Eosinophil# 0.15 X10^3/uL; Eosinophils% 1.8 % (0-5); Hematocrit 43.6 % (37-47); Hemoglobin 14.2 g/dL (12.0-15.0); Lymphocyte # 1.92 X10^3/ul (0.83-4.51); Lymphocyte % 23.1 % (19-41); Mean Corp Hgb Conc 32.6 g/dL (32-36); Mean Corpuscular Hgb 27.7 pg (27.0-32.0); Monocyte# 0.71 X10^3/uL; Monocyte% 8.6 % (0-10); NRBC Flagged by Analyzer 0 % (0-5); Neutrophil # 5.45 X10^3/uL (2.7-7.7); Neutrophil % 65.6 % (47-70); Platelet Count 143 K/mm3 (150-450); RBC Distribution Width CV 13.4 % (11.6-14.6); RBC Distribution Width SD 41.9 fl (35.1-43.9); Red Blood Count 5.13 M/mm3 (4.2-5.4); White Blood Count 8.3 K/mm3 (4.4-11.0)
[2024-11-07 12:31] LABS: ALB/GLOB Ratio 1.1 RATIO (0.9-2.4); AST(SGOT) 46 U/L (<=31); Alanine Aminotransfer ALT/SGPT 60 U/L (<=34); Alkaline Phosphatase 104 U/L (35-104); Anion Gap 10 (5-15); BUN 10 mg/dL (4-19); BUN/Creat Ratio 14.8 RATIO (10-20); Calcium,Total 9.6 mg/dL (7.6-11.0); Carbon Dioxide 25.2 mmol/L (21.0-32.0); Chloride 104 mmol/L (98-108); Cholesterol 202 mg/dL (<=200); Creatinine, Serum 0.66 mg/dL (0.70-1.20); EST Glomerular Filtration Rate 113 (>60); Globulin 3.5 g/dL (2.2-4.2); Glucose 90 mg/dL (70-99); High Density Lipoprotein 54 mg/dL; Low Density Lipoprotein Calc. 127 mg/dL; Potassium 4.4 mmol/L (3.3-5.1); Protein, Total 7.5 g/dL (5.9-8.4); Sodium Level 140 mmol/L (133-145); Total Bilirubin 0.42 mg/dL (0.00-1.30); Triglycerides 105 mg/dL; Very Low Density Lipoprotein 21 mg/dL (5-40); cholesterol:hdl ratio screen 3.76
[2024-11-07 12:57] LABS: Ferritin 71 ng/mL (22-378); Free T3 3.3 pg/mL (2.18-3.98); Magnesium 1.9 mg/dL (1.5-2.2); Vitamin B12 813 pg/mL (180-914); Vitamin D,25 Hydroxy 24.6 ng/mL (30-100)
[2024-11-07 13:17] LABS: Iron 77 ug/dL (50-170); Iron Binding Capacity,Total 308 ug/dL (250-450); Iron Binding Capacity,Unsat 231 ug/dL (228-428)
[2024-11-12 15:08] LABS: Opiates, Urine Negative (Cutoff=200)
== END | disposition home or self-care (01) ==
PROVIDERS: PCP Physician Assistant Medical; Referring Provider Physician Assistant Medical; Visit Provider Physician Assistant Medical
DX: R73.02 Impaired glucose tolerance (oral) (principal); E06.3 Autoimmune thyroiditis; R79.89 Other specified abnormal findings of blood chemistry; Z98.84 Bariatric surgery status; E55.9 Vitamin D deficiency, unspecified; Z79.899 Other long term (current) drug therapy
CPT/HCPCS: 36415; 80053; 80061; 80307; 80346; 82306; 82607; 82728; 83540; 83550; 83735; 84439; 84443; 84481; 85025; G0480

== ENCOUNTER 2024-12-20 12:38 | Emergency (ER) | payer OTHER, SELFPAY ==
[2024-12-20 12:39] VITALS: BP 142/117; PULSE 99; RESP 18; TEMP 37; O2SAT 100; BMI 56.9
--- NOTE | 2024-12-20 12:52 | EX.ED.DYSGE1 ---
HPI History of Present Illness Chief Complaint: Dizziness Detail of Chief Complaint: Low heart rate Informant: patient Onset/Context/Timing Onset: Today Context: - (Alerted by [facility]) Timing: Intermittent Quality: Slow heart rate Location: Cardiovascular Current Severity: Patient was asymptomatic Maximum Severity: Moderate Worsened by: Patient states she is anxious and may have gotten herself all worked up bec Relieved by: Not applicable Associated Symptoms Associated Symptoms: Intermittent 1 second dizziness Narrative Narrative: Patient is a 39-year-old woman. BMI is 56.9. Patient underwent ablation by sales contractor at [facility] 2019 for PSVT. Patient reports that she is under stress because her father and she is moving her mother in. She states she is getting herself worked up and this may be nothing more than anxiety. She is concerned because there is a family history cardiac disease and she is status post ablation for PSVT. Patient denies weight gain or weight loss. She has been fatigued. 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 She states all my blood tests are always negative. She complains of weird headache. She localizes over the right left maxillary area. She does report mild congestion. There is no positional component. She denies double vision blurred vision loss of vision. She does have chronic ringing in her ears. She denies decreased hearing. She denies trouble with speech or swallowing. She denies paresthesia, anesthesia Medicus upper or lower extremity. Dizziness is defined as movement of the room for 1 second when she rises quickly. There is no history of GI bleed. She does have history of obstructive sleep apnea. Patient does not have oxygen at night or BiPAP slaps CPAP because her most recent sleep study was negative. 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 Liver disease IBS (irritable bowel syndrome) Back problem Arthritis Seasonal allergies Paroxysmal ventricular tachycardia Hypergammaglobulinemia, unspecified High serum fibrinogen PTSD (post-traumatic stress disorder) History of pulmonary embolism Anxiety Iron deficiency anemia Vitamin D deficiency [id number] deficiency GERD (gastroesophageal reflux disease) Ankylosing spondylitis Morbid obesity Home Medications ?Medication ?Instructions ?Recorded ?Last Taken ?Type aspirin 81 mg chewable tablet 81 mg PO DAILY@0800 06/28/19 Unknown History cholecalciferol (vitamin D3) 125 125 mcg PO QHS 12/20/24 12/19/24 History mcg (5,000 unit) tablet (Vitamin D3) magnesium 1 tab PO DAILY 12/20/24 12/20/24 History pantoprazole 40 mg tablet,delayed 40 mg PO DAILY 12/20/24 12/20/24 History release Allergy/AdvReac Type Severity Reaction Status Date / Time cholecalciferol (vitamin D3) Allergy Hives Verified 12/20/24 12:39 (From Vitamin D3) ergocalciferol (vitamin D2) Allergy Hives Verified 12/20/24 12:39 (From Vitamin D2) nadolol Allergy Hives Verified 12/20/24 12:39 Penicillins Allergy Hives Verified 12/20/24 12:39 bupropion (From Wellbutrin) AdvReac Itching Verified 12/20/24 12:39 hydrocodone bitartrate (From AdvReac Other Verified 12/20/24 12:39 Vicodin) morphine AdvReac Nausea Verified 12/20/24 12:39 Family History Father Kidney disease Liver disease Heart problem Thyroid disorder Autoimmune disease rheumatoid and alpha 1 antitrypsin Grandfather Heart problem paternal Grandmother Heart problem paternal Diabetes Uncle Heart problem Diabetes Mother Anxiety Hypertension Hyperlipidemia Other Arthritis Depression Heart disease Myocardial infarction Surgical History H/O wisdom tooth extraction H/O gastric sleeve History of radiofrequency ablation procedure for cardiac arrhythmia (09/25/18) History of tubal ligation History of tonsillectomy History of cholecystectomy History of History of liver biopsy History of left heart catheterization (09/18/18) Social History household members: significant other and family current occupational status: employed 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 Smoking Status: Former smoker quit date: 08/28/18 pack-years: 8 how long ago did patient quit smoking: intermitent for years alcohol intake: never substance use type: does not use diet: ideal protein well-balanced diet: about half the time what type of physical activity do you participate in: walking seatbelt use: always do you feel safe at home: Yes ROS ROS ED Constitutional Constitutional ED: Denies chills, fever(s), subjective, sweats or weight loss Eyes Eyes: Denies blurry vision, change in vision or diplopia ENT ENT ED: Denies rhinorrhea or sore throat Cardiovascular Cardiovascular: Reports other Details: Slow heart rate. ; Denies chest pain, orthopnea, palpitations or racing heartbeat Respiratory/Chest Respiratory/Chest: Denies cough, dyspnea, dyspnea on exertion or orthopnea Gastrointestinal Gastrointestinal: Denies abdominal pain, melena, nausea or vomiting Musculoskeletal Musculoskeletal: Denies arthralgias or myalgias Integumentary Denies rash Neurologic Neurologic: Reports headache(s); Denies paresthesias or weakness Psychiatric Psychiatric: Reports anxiety; Denies depression Endocrine Endocrinology: Denies cold intolerance or heat intolerance Hematologic/Lymphatic Hematologic/Lymphatic: Reports systems reviewed and no addt'l complaints, except as documented EXAM Physical Exam Const Vital Signs: 12/20/24 12:39 12/20/24 13:21 Temperature 98.6 F Temperature Source Oral Pulse Rate 99 Pulse Rate [Lying] 79 Pulse Rate [Sitting (for 1 minute prior to obtaining)] 77 Pulse Rate [Standing (for 1 minute prior to obtaining)] 91 Respiratory Rate 18 Blood Pressure 142/117 H Blood Pressure [Lying] 137/70 H Blood Pressure [Sitting (for 1 minute prior to obtaining)] 138/97 H Blood Pressure [Standing (for 1 minute prior to obtaining)] 166/119 H Blood Pressure Mean 125 Blood Pressure Mean [Lying] 92 Blood Pressure Mean [Sitting (for 1 minute prior to obtaining)] 110 Blood Pressure Mean [Standing (for 1 minute prior to obtaining)] 134 Pulse Ox 100 Oxygen Delivery Method Room Air Positive well nourished and well developed Constitutional Narrative: BMI is 56.9. General Appearance ED: well developed and pallor HEENT Reports moist mucous membranes HEENT Narrative: Head is atraumatic normocephalic. Ears normal. Nares patent. Posterior pharynx is normal. Uvula midline. No deviation of the tongue with protrusion. Negative for tenderness Eyes PERRL and EOMs intact bilaterally General Eye ED: Negative for pale conjunctiva or scleral icterus Neck no lymphadenopathy, supple and no JVD Resp normal respiratory effort and clear to auscultation bilaterally Cardio regular rate, regular rhythm, S1 normal heart sound, S2 normal heart sound and no murmurs Extremity normal to inspection General Extremety ED: Negative for edema or tenderness General Extremity: Negative for edema Neuro oriented x3 and CN's II-XII intact bilaterally Sensorium / Orientation: alert Psych Mood & Affect: anxious Skin no rashes or lesions noted, no wounds and skin turgor normal General Skin Exam: elasticity normal and pallor; Negative for jaundice MDM MDM MDM Narrative Medical decision making narrative: Review of Holter monitor results revealed patient had a minimum heart rate of 41. Mechanism was sinus. She is scheduled to see Dr. Javier Barajas January of this year. She was under the care of Dr. Luevano prior to his jail. Differential diagnosis is anxiety, electrolyte abnormality Neuner need to entertain possibility of hypothyroidism. Appropriate blood work was ordered. History & Record Review Additional record(s) reviewed:: Prior outpatient record (Holter monitor from August 2024 report was reviewed. Correspondence from [facility] for cardiovascular issues.), Prior ED visit (Seen September 2024 for elevated blood pressure by Dr. Freeman. August of this year for anxiety disorder internal medicine.) and Prior labs Lab Data Attestation: I reviewed the patient's lab results. Lab results narrative: Blood work is unremarkable. TSH is normal. BMP is normal. Hemoglobin is slightly elevated. Labs: Laboratory Results - last 24 hr 12/20/24 13:02 WBC 9.9 RBC 5.44 H Hgb 15.3 H Hct 45.9 MCV 84.4 MCH 28.1 MCHC 33.3 RDW Std Deviation 41.5 RDW Coeff of Jocelyne 13.4 Plt Count 204 MPV 11.3 Sodium 139 Potassium 3.8 Chloride 103 Carbon Dioxide 26.1 Anion Gap 10 BUN 9 Creatinine 0.67 L Estim Creat Clear Calc 167.96 Est GFR (MDRD) Non-Af 112 BUN/Creatinine Ratio 13.2 Glucose 131 H Calcium 9.6 TSH 3.010 Treatment and Re-Evaluation :: Patient was informed that her Holter monitor documented a heart rate as low as 41. This was a sinus mechanism. She had no symptoms at that time and had no symptoms at this time. Recommend keeping appointment with Dr. Adriano Barajas. Patient be discharged to home. Discharge Plan Triage Chief Complaint: Dizziness ED Provider: Garcia,Anam Dx/Rx/DC Orders Clinical Impression: Sinus bradycardia, Anxiety reaction, Dizziness Instructions: ED Bradycardia Prescriptions: No Action aspirin 81 MG tablet,chewable 81 mg PO DAILY@0800 cholecalciferol (vitamin D3) [Vitamin D3] 125 mcg (5,000 unit) tablet 125 mcg PO QHS pantoprazole 40 mg tablet,delayed release (DR/EC) 40 mg PO DAILY magnesium 1 tab PO DAILY Patient Comments: PT UNSURE OF STRENGTH. Primary Care Provider: Marjorie Arzate Referrals: Javier Barajas MD [Med Staff - Active Staff] - Keep Stacey appointment Marjorie Arzate PA [Primary Care Provider] - As Needed Print Language: [place] Disposition Disposition: Home, Self Care
[2024-12-20 13:21] VITALS: BP 137/70; BP 138/97; BP 166/119; PULSE 77; PULSE 79; PULSE 91
[2024-12-20 13:22] LABS: Hematocrit 45.9 % (37-47); Hemoglobin 15.3 g/dL (12.0-15.0); Mean Corp Hgb Conc 33.3 g/dL (32-36); Mean Corpuscular Hgb 28.1 pg (27.0-32.0); Mean Corpuscular Volume 84.4 fL (81-99); Mean Platelet Vol. 11.3 fl (6.2-12.0); Platelet Count 204 K/mm3 (150-450); RBC Distribution Width CV 13.4 % (11.6-14.6); RBC Distribution Width SD 41.5 fl (35.1-43.9); Red Blood Count 5.44 M/mm3 (4.2-5.4); White Blood Count 9.9 K/mm3 (4.4-11.0)
[2024-12-20 13:50] LABS: Anion Gap 10 (5-15); BUN 9 mg/dL (4-19); BUN/Creat Ratio 13.2 RATIO (10-20); Calcium,Total 9.6 mg/dL (7.6-11.0); Carbon Dioxide 26.1 mmol/L (21.0-32.0); Chloride 103 mmol/L (98-108); Creatinine, Serum 0.67 mg/dL (0.70-1.20); EST Glomerular Filtration Rate 112 (>60); Estimated Creatinine Clearance 167.96 ml/min (50-250); Glucose 131 mg/dL (70-99); Potassium 3.8 mmol/L (3.3-5.1); Sodium Level 139 mmol/L (133-145)
[2024-12-20 14:06] VITALS: BP 116/76; PULSE 74; RESP 16; TEMP 37; O2SAT 96
== END 2024-12-20 14:17 | disposition home or self-care (01) ==
PROVIDERS: Emergency Provider Emergency Medicine; PCP Physician Assistant Medical; Visit Provider Emergency Medicine
DX: R42 Dizziness and giddiness (principal); F41.1 Generalized anxiety disorder; Z87.891 Personal history of nicotine dependence; Z98.51 Tubal ligation status; Z90.49 Acquired absence of other specified parts of digestive tract; R00.1 Bradycardia, unspecified
CPT/HCPCS: 80048; 84443; 85027; 99285; A4216

== ENCOUNTER 2025-02-20 06:29 | Outpatient (CLI) | payer OTHER, SELFPAY ==
--- NOTE | 2025-02-20 06:35 | CT_ITS ---
PROCEDURE: LIMITED CHEST CT CARDIAC ONLY 02/20/2025 REASON FOR EXAM: SCREEN TECHNIQUE: CT for coronary artery calcium scoring. One or more dose reduction techniques were used (e.g., Automated exposure control, adjustment of the mA and/or kV according to patient size, use of iterative reconstruction technique). RADIATION DOSE SUMMARY: CTDlvol: 12.19 mGy DLP: 219.42 mGycm COMPARISON: None. CT/Limited Chest CT Cardiac Only IMPRESSION: Prior cholecystectomy. Prior gastric surgery Limited imaging of the lungs demonstrates no acute process. No pleural effusion or pneumothorax is seen in visualized areas. No adenopathy is noted. The visualized upper abdomen demonstrates no acute abnormality. Reading Location: [place] [id number]
--- OUTSIDE RECORDS SUMMARY | 2025-02-20 06:38 | XMS RPT_ITS | CCD ---
Author Organization [facility] Care Team Providers Care Center Sales And Service Associate Name Role Phone EDITH MURRAY Admitting Unavailable EDITH MURRAY Attending Unavailable JOSHUA CAMACHO Referring Unavailable IMCA Primary Care Unavailable Redd, Aasef Unavailable Unavailable Guanako Vargas Unavailable Unavailable Vargas Mujica B Unavailable Unavailable Shikary, Abbas K Unavailable Unavailable Basali, Ayman H Unavailable Unavailable Zarrabi, Josselyn Unavailable Unavailable Guanako, Vargas Unavailable Unavailable Guanako, Vargsa B Unavailable Unavailable Redd, Aasef Unavailable Unavailable Zarrabi, Josselyn Unavailable Unavailable Guanako Vargas B Unavailable [phone] Unavailable Unavailable Unavailable Unavailable Vargas Wei Primary Care Provider Josuha Camacho (Hist) Unavailable Edith Taylor MD Unavailable [phone] Bonita Naqvi Unavailable No, Referral Unavailable Unavailable Eric Crooks MD Unavailable Tomasz Garay MD Unavailable Edith Taylor MD Unavailable Unavailable Brooks Soto MD Unavailable Brooks Soto MD Unavailable Hung Emerson MD Unavailable Vargas Wei Primary Care Provider Joshua Camacho (Hist) Unavailable Edith Taylor MD Unavailable Radha Naqvima L Unavailable No, Referral Unavailable Unavailable Eric Crooks MD Unavailable Claudy COPELAND, Tomasz Gonsalezouryan Unavailable Brooks Soto MD Unavailable Brooks Soto MD Unavailable Ki COPELAND, Hung Unavailable Kalpeshlansonia, Bonita L Unavailable Claudy COPELAND, Tomasz Gonsalezoud Unavailable Unavailable Unavailable Vargas Wei Primary Care Provider [phone] Joshua Camacho (Hist) Unavailable Brandon COPELAND, Edith Helton Unavailable Donya, Bonita L Unavailable No, Referral Unavailable Unavailable Eric Crooks MD Unavailable Claudy COPELAND, Tomasz Davidson Unavailable Brooks Soto MD Unavailable Brooks Soto MD Unavailable Ki COPELAND, Hung Unavailable Joshua Camacho Unavailable Guanako, Ms. Vargas Browne Referring Unav ailable Willow Wood, MsIglesia Browne Primary Care Unav ailable [place], MsIglesia Browne Attending Unav ailable Osbaldo, Dr. Arcos Attending Unavailable Osbaldo, Dr. Arcos Referring Unavailable Guanako, Ms. Vargas Browne Primary Care Unav ailable [place], MsIglesia Browne Referring Unav ailable [place], Ms. Vargas Browne Primary Care Unav ailable [place], MsIglesia Browne Attending Unav ailable Grassick, Ms. Talya Rios Attending Unavail able Grassick, Ms. Talya Rios Referring Unavail able Guanako, Ms. Vargas Browne Primary Care Unav ailable Guanako, Ms. Vargas Browne Attending Unav ailable [place], Ms. Vargas Browne Referring Unav ailable Guanako, Ms. Vargas Browne Primary Care Unav ailable Guanako, Ms. Vargas Browne Referring Unav ailable [place], Ms. Vargas Browne Primary Care Unav ailable Guanako, Ms. Vargas Browne Attending Unav ailable [place], Ms. Vargas Browne Attending Unav ailable Guanako, Ms. Vargas Browne Referring Unav ailable Guanako, Ms. Vargas Browne Primary Care Unav ailable Guanako JUNE WATKINS Primary Care Provider JUNE Wei Referring Provider JUNE Emanuel Attending Provider Vargas Mujica PA-C Primary Care Provider Guanako, . Vargas Browne Attending Unav ailable Guanako, Ms. Vargas Browne Primary Care Unav ailable VARGAS MUJICA PA-C Primary Care Physician Vargas Mujica PA-C Unavailable Vargas Wei Primary Care Provider [phone] Joshua Camacho Unavailable Brandon COPELAND, Edith Helton Unavailable [phone] Bonita Naqvi Unavailable Valeriy COPELAND, Eric Jules Unavailable Vargas Wei Primary Care Provider [phone] Vargas Wei Primary Care Provider VARGAS MUJICA Referring Unavailable VARGAS MUJICA Primary Care Unavailable VARGAS MUJICA Primary Care Unavailable VARGAS MUJICA Primary Care Unavailable Vargas Mujica PA-C Primary Care Provider Vargas Mujica PA-C Unavailable GUANAKO, VARGAS B Attending Unavailable GUANAKO, VARGAS B Primary Care Unavailable GUANAKO, VARGAS B Attending Unavailable GUANAKO, VARGAS B Primary Care Unavailable GUANAKO, VARGAS B Attending Unavailable GUANAKO, VARGAS B Primary Care Unavailable Neel COPELAND, Joshua Wall Unavailable CHLOÉ TIPTON Referring Unavailable GUANAKO, VARGAS [facility] Primary Care Unavaila ble GUANAKO, [facility] Primary Care Unavaila ble DELFIN JAIN Referring Unavailable GUANAKO, [facility] Primary Care Unavaila ble GUANAKO, [facility] Primary Care Unavaila ble Guanako PA, Vargas Attending Unavailabl e Willow [place] PA, [place] Primary Care Unavailabl e Guanako PA, Vargas Referring Unavailabl e Masterson, Lali Referring Unavailable Fritz, Lali Attending Unavailable Guanako PA, [facility] Unavailabl e [place] PA, [place] Primary Care Unavailabl Sanam Perez Attending Unavailable [place] PA, [place] Primary Care Unavailabl e Guanako PA, Vargas Referring Unavailabl e Violetta, Gustavus Attending Unavailable [place] PA, [facility] Unavailabl e [place] PA, Vargas Referring Unavailabl e Violetta, Rafael Attending Unavailable Guanako PA, [facility] Unavailabl Sanam Perez Attending Unavailable [place] PA, [facility] Unavailabl e Sanam Lindsay Attending Unavailable Guanako PA, Vargas Referring Unavailabl e Fritz, Lali Attending Unavailable [place] PA, [facility] Unavailabl e Guanako PA, [facility] Unavailabl e Sanam Lindsay Attending Unavailable Violetta, Gustavus Attending Unavailable Fritz, Lali Referring Unavailable Guanako PA, [facility] Unavailabl e [place] PA, [place] Primary [facility] Unavailabl Sanam Perez Attending Unavailable Guanako PA, Vargas Attending Unavailabl e Guanako PA, Vargas Referring Unavailabl e [place] PA, [facility] Unavailabl e [place] PA, [facility] Unavailabl Garry Galarza Attending Unavailable [place] PA, [facility] Unavailabl e Garcia, Anam Attending Unavailable [place] PA, Vargas Attending Unavailabl e [place] PA, Vargas Referring Unavailabl e [place] PA, [place] [facility] Unavailabl e Guanako PA, Vargas Referring Unavailabl e [place] PA, Vargas Attending Unavailabl e Guanako PA, [facility] Unavailabl e Slade, Jl Referring Unavailable Jl June Attending Unavailable [place] PA, [facility] Unavailabl e Guanako PA, Vargas Attending Unavailabl e [place] PA, [facility] Unavailabl e [place] PA, Vargas Referring Unavailabl e JOHANNY MARMOLEJO Attending Unavailable VARGAS MUJICA [facility] Primary [facility] Unavaila ble SELF Referring Unavailable Allergies Allergy Classification Reported Allergen(s) Allergy Type Date of Onset Reaction(s) Facility Acetaminophen / HYDROcodone (1 source) Acetaminophen / HYDROcodone; Translations: [Vicodin TABS] Drug Allergy Rash, Itching [facility] Work Phone: Aminoketones (1 source) buPROPion; Translations: [Wellbutrin] Drug Allergy Rash [facility] Work Phone: Meclizine (1 source) Meclizine; Translations: [meclizine] Drug Allergy Other [facility] Work Phone: Nadolol (1 source) Nadolol; Translations: [nadolol] Drug Allergy Chest Pain [facility] Work Phone: Opioid Agonists (1 source) Morphine; Translations: [Morphine Sulfate SOLN] Drug Allergy [facility] Work Phone: Penicillin V (1 source) Penicillin V; Translations: [Penicillin V Potassium SOLR] Drug Allergy Hives [facility] Work Phone: Serotonin Reuptake Inhibitors (SSRIs) (1 source) Citalopram; Translations: [citalopram] Drug Allergy Other, Vomiting [facility] Work Phone: (20 sources) Acetaminophen / HYDROcodone; Translations: [HYDROCODONE-ACETAM INOPHEN] Drug Allergy 01-29-20 16 Hives, GI Upset, Itching, Rash [facility] (20 sources) Morphine; Translations: [MORPHINE] Drug Allergy 08-24-20 16 Other: See Comments, Other [facility] (20 sources) Penicillins; Translations: [PENICILLINS] Propensity to adverse reactions (disorder) 01-28-20 08 Hives [facility] (20 sources) Acetaminophen / HYDROcodone; Translations: [Vicodin TABS] Drug Allergy Rash, Itching [facility] Work Phone: (20 sources) buPROPion; Translations: [Wellbutrin] Drug Allergy Rash [facility] (20 sources) Meclizine; Translations: [meclizine] Drug Allergy 06-02-20 21 Other: See Comments, Other [facility] Work Phone: (20 sources) Morphine; Translations: [Morphine Sulfate SOLN] Drug Allergy [facility] Work Phone: (20 sources) Penicillin V; Translations: [Penicillin V Potassium SOLR] Drug Allergy 02-09-20 23 Hives [facility] Work Phone: (20 sources) Citalopram; Translations: [citalopram] Drug Allergy 06-02-20 21 Vomiting, Other: See Comments, Other [facility] Work Phone: (20 sources) Nadolol; Translations: [nadolol] Drug Allergy 11-14-19 19 Chest Pain, Itching, Other [facility] Work Phone: (20 sources) buPROPion; Translations: [BUPROPION] Drug Allergy 06-02-20 21 Rash [facility] Work Phone: (20 sources) predniSONE; Translations: [predniSONE] Drug Allergy 09-22-19 23 Itching [facility] (4 sources) Cholecalciferol Drug Allergy 08-17-20 22 [facility] (4 sources) Ergocalciferol Drug Allergy 08-17-20 22 [facility] (5 sources) HYDROcodone; Translations: [hydrocodone bitartrate] Drug Allergy 08-17-20 22 Other [facility] (7 sources) Doxycycline; Translations: [Doxycycline Hyclate CAPS] Drug Allergy 06-07-20 24 [facility] Work Phone: (18 sources) buPROPion; Translations: [BUPROPION HCL] Drug Allergy 02-09-20 [facility] (1 source) Penicillin; Translations: [penicillin] Drug Allergy [facility] (3 sources) Penicillin; Translations: [PENICILLIN V] Drug Allergy 02-09-20 [place] [id number] Repository (2 sources) Doxycycline; Translations: [DOXYCYCLINE] Drug Allergy 06-07-20 [facility] (1 source) buPROPion Drug Allergy 12-21-19 [facility] (1 source) Cholecalciferol Drug Allergy 12-21-19 [facility] (1 source) Ergocalciferol Drug Allergy 12-21-19 [facility] Medications Current Medications Medication Drug Class(es) Dates Sig (Normalized) Sig (Original) [id number] 200 actuat albuterol 0.09 mg/actuat metered dose inhaler (20 sources) beta2-Adrenergic Agonist Start: 07-03-2023 take 1-2 puff(s) by inhalation every six hours as needed albuterol 90 mcg/actuation inhaler Indications: Shortness of breath INHALE 1 TO 2 PUFFS EVERY 6 HOURS NEEDED 18 g 1 07/03/2023 Active Start: 11-11-2021 take 1-2 puff(s) by inhalation every six hours as needed Albuterol Sulfate HFA 108 (90 Base) MCG/ACT Inhalation Aerosol Solution INHALE 1 TO 2 PUFFS EVERY 6 HOURS NEEDED. Quantity: 1 Refills: 1 Ordered: 27-Jul-2022 Vargas Mujica PA-C Start : 11-Nov-2021 Active Start: 11-11-2021 take 1-2 puff(s) by inhalation every six hours as needed Albuterol Sulfate HFA 108 (90 Base) MCG/ACT Inhalation Aerosol Solution INHALE 1 TO 2 PUFFS EVERY 6 HOURS NEEDED. Quantity: 1 Refills: 1 Ordered: 11-Nov-2021 Talya Gerber Start : 11-Nov-2021 Active aspirin 81 mg chewable tablet (20 sources) Platelet Aggregation Inhibitor, Nonsteroidal Anti-inflammatory Drug Start: 06-28-2019 take 1 tablet by mouth once daily aspirin 81 mg chewable tablet Take 81 mg by mouth once daily. 06/28/2019 Active Start: 06-26-2019 End: 04-12-2022 take 1 tablet by mouth once daily aspirin, enteric coated (ADULT LOW DOSE ASPIRIN) 81 mg EC tablet Take 1 tablet by mouth once daily. 06/26/2019 04/12/2022 Discontinued Comment on above: Take 1 tablet by harper once daily. benzonatate 100 mg oral capsule (9 sources) Non-narcotic Antitussive Start: End: take 1 capsule by mouth every eight hours as needed for cough and cough benzonatate (TESSALON PERLES) 100 mg capsule Indications: Acute cough Take 1 capsule by mouth three times a day as needed for up to 7 days. 21 capsule 04/24/2024 05/01/2024 Active Start: 09-20-2022 End: 10-17-2022 take 1 capsule by mouth three times daily as needed Benzonatate 200 MG Oral Capsule TAKE 1 CAPSULE 3 TIMES DAILY NEEDED. Quantity: 21 Refills: 0 Ordered: 20-Sep-2022 Josselyn Roblero MD Start : 20-Sep-2022 End : 17-Oct-2022 Complete Start: 08-12-2021 End: 11-11-2021 take 1 capsule by mouth three times daily as needed Benzonatate 200 MG Oral Capsule TAKE 1 CAPSULE 3 TIMES DAILY NEEDED. Quantity: 21 Refills: 0 Ordered: 12-Aug-2021 Josselyn Roblero MD Start : 12-Aug-2021 End : 11-Nov-2021 Complete Biotin (20 sources) End: 11-06-2024 take 1 tablet by mouth once daily biotin 10 mg tablet Take 1 tablet (10 mg) by mouth once daily. 11/06/2024 Discontinued (Therapy completed) BIOTIN ORAL Take by mouth once daily. Active BIOTIN ORAL Take by mouth once daily. 0 Active Biotin TABS TAKE 1 TABLET DAILY. Quantity: 0 Refills: 0 Ordered: 28-Dec-2021 DO Active Comment on above: Take by mouth once d aily. cyclobenzaprine hydrochloride 10 mg oral tablet (17 sources) Muscle Relaxant Start: 06-07-20 End: 07-11-20 take 1 tablet by mouth twice daily as needed for muscle spasms cyclobenzaprine (Flexeril) 10 mg tablet Indications: Polyarthralgia , Chronic bilateral low back pain without sciatica Take 1 tablet (10 mg) by mouth 2 times a day as needed for muscle spasms. 60 tablet 07/11/2024 Active Start: 07-27-2022 take 1 tablet by harper th twice daily as needed for muscle spasms cyclobenzaprine (Flexeril) 10 mg tablet Take 1 tablet (10 mg) by mouth 2 times a day as needed for muscle spasms. 0 08/31/2022 Active diclofenac potassium 50 mg oral tablet (1 source) Nonsteroidal Anti-inflammatory Drug Start: 11-06-2024 take 1 tablet by mouth three times daily diclofenac (Cataflam) 50 mg tablet Indications: Acute foot pain, left Take 1 tablet (50 mg) by mouth 3 times a day. 60 tablet 11/06/2024 Active doxycycline monohydrate 100 mg oral tablet (8 sources) Tetracycline-class Drug Start: 09-22-2022 End: 09-29-2022 take 1 tablet by mouth twice daily doxycycline monohydrate 100 mg tablet Indications: Rhinosinusitis Take 1 tablet by mouth twice daily for 7 days. 14 tablet 0 09/22/2022 09/29/2022 Active Start: 09-20-2022 End: 10-17-2022 take 1 tablet by mouth once daily Doxycycline Hyclate 100 MG Oral Tablet TAKE 1 TABLET EVERY 12 HOURS DAILY. Quantity: 14 Refills: 0 Ordered: 20-Sep-2022 Josselyn Roblero MD Start : 20-Sep-2022 End : 17-Oct-2022 Complete Start: 08-12-2021 End: 11-11-2021 take 1 tablet by mouth twice daily Doxycycline Hyclate 100 MG Oral Capsule 1 TAB BID X 7DAYS Quantity: 14 Refills: 0 Ordered: 12-Aug-2021 Josselyn Roblero MD Start : 12-Aug-2021 End : 11-Nov-2021 Complete Comment on above: Take 1 tablet by harper th twice daily for 7 days. 0.6 ml enoxaparin sodium 100 mg/ml prefilled syringe (13 sources) Low Molecular Weight Heparin Start: 08 End: inject 0.6 mL by subcutaneous injection every twelve hours enoxaparin (LOVENOX) 60 mg/0.6 mL syrg Indications: deep vein thrombosis prevention , pulmonary thromboembolism prevention Inject 0.6 mL subcutaneously q 12 HR for 28 days. TO START AFTER SURGERY 33.6 mL 0 03/31/2022 04/28/2022 Active Comment on above: Inject 0.6 mL subcut aneously q 12 HR for 28 days. TO START AFTER SURGERY enteric contrast (will be provided with radiology test) (5 sources) Start: End: enteric contrast (will be provided with radiology test) Indications: S/P laparoscopic sleeve gastrectomy , Right sided abdominal pain For CT ABD/PEL W IVCON Routine order Administer, As Directed One Time Only, via Oral, Rectal, both Oral and Rectal, Enteric Tube, Stoma or Indwelling Catheter, Enteric Contrast as designated per enteric contrast guidelines 1 Each 0 04/19/2022 04/20/2022 Active Start: 04-19-2022 End: 04-19-2022 enteric contrast (will be pr ovided with radiology test) Indications: S/P laparoscopic sleeve gastrectomy , Right sided abdominal pain For CT ABD/PEL W IVCON Routine order Administer, As Directed One Time Only, via Oral, Rectal, both Oral and Rectal, Enteric Tube, Stoma or Indwelling Catheter, Enteric Contrast as designated per enteric contrast guidelines 1 Each 0 04/19/2022 04/19/2022 Discontinued (Auto ) Comment on above: For CT ABD/PEL W IVC ON Routine order Administer, As Directed One Time Only, via Oral, Rectal, both Oral and Rectal, Enteric Tube, Stoma or Indwelling Catheter, Enteric Contrast as designated per enteric contrast guidelines hydroCHLOROthiazide 25 mg oral tablet (20 sources) Thiazide Diuretic Start: 2018 End: 2021 take 25 mg by mouth once daily Hydrochlorothiazide Active 25 MG PO DAILY December 13, 2018 11:00pm Comment on above: Take 25 mg by mouth once daily. ibuprofen 600 mg oral tablet (3 sources) Nonsteroidal Anti-inflammatory Drug Start: 2023 End: 2024 take 1 tablet by mouth three times daily as needed for pain ibuprofen 600 mg tablet Indications: Cervicalgia , Chronic midline low back pain with sciatica, sciatica laterality unspecified Take 1 tablet (600 mg) by mouth 3 times a day as needed for mild pain (1 - 3) (pain). 60 tablet 07/11/2024 09/09/2024 Active iv contrast (will be provided with radiology test) (5 sources) Start: 2021 End: 2021 iv contrast (will be provided with radiology test) Indications: S/P laparoscopic sleeve gastrectomy , Right sided abdominal pain CT ABD/PEL -Inject, intravenously, once for 1 dose.No IV access, insert saline lock prior to the beginning of sedation, infusion, injection of imaging exam. Discontinue saline lock post exam. If Pt. has a central line or IVAD, may access for administration according to line specific nursing protocol. Once exam is complete flush line and de-access according to line specific nursing protocol in the CT contrast administration guidelines link. 1 Each 0 04/19/2022 04/20/2022 Active Start: 04-19-2022 End: 04-19-2022 iv contrast (will be provide d with radiology test) Indications: S/P laparoscopic sleeve gastrectomy , Right sided abdominal pain CT ABD/PEL -Inject, intravenously, once for 1 dose.No IV access, insert saline lock prior to the beginning of sedation, infusion, injection of imaging exam. Discontinue saline lock post exam. If Pt. has a central line or IVAD, may access for administration according to line specific nursing protocol. Once exam is complete flush line and de-access according to line specific nursing protocol in the CT contrast administration guidelines link. 1 Each 0 04/19/2022 04/19/2022 Discontinued (Auto ) Comment on above: CT ABD/PEL -Inject, intravenously, once for 1 dose.No IV access, insert saline lock prior to the beginning of sedation, infusion, injection of imaging exam. Discontinue saline lock post exam. If Pt. has a central line or IVAD, may access for administration according to line specific nursing protocol. Once exam is complete flush line and de-access according to line specific nursing protocol in the CT contrast administration guidelines link. Lactobac no.41/Bifidobact no.7 (PROBIOTIC-10 ORAL) (20 sources) Lactobac no.41/B ifidobact no.7 (PROBIOTIC-10 ORAL) Take by mouth. Active Lactobac no.41/B ifidobact no.7 (PROBIOTIC-10 ORAL) Take by mouth. 0 Active Comment on above: Take by mouth. levothyroxine sodium 0.1 mg oral tablet (8 sources) l-Thyroxine Start: 6 End: 1 Levothyroxine Active 100 MCG PO MOTUWETHFRSA November 09, 2017 11:00pm does not take Sundays LORazepam 1 mg oral tablet (20 sources) Benzodiazepine Start: 0 End: 5 take 1 tablet by mouth three times daily as needed for anxiety LORazepam (Ativan) 1 mg tablet Indications: Anxiety Take 1 tablet (1 mg) by mouth 3 times a day as needed for anxiety. 60 tablet 11/06/2024 Active LORazepam (ATIVA N) 0.5 mg Take 1 mg by mouth as needed. Active LORazepam (ATIVA N) 0.5 mg tab Take 1 mg by mouth as needed. 0 Active take 1 tablet by harper once daily as needed for anxiety LORazepam 1 MG Oral Tablet TAKE 1 TABLET DAILY NEEDED FOR ANXIETY. Refills: 0 DO Active Comment on above: Take 1 mg by mouth a s needed. multivit-min/iron/folic acid/K (BARIATRIC MULTIVITAMINS ORAL) (20 sources) multivit-min/iro n/folic acid/K (BARIATRIC MULTIVITAMINS ORAL) Take by mouth once daily. Active multivit-min/iro n/folic acid/K (BARIATRIC MULTIVITAMINS ORAL) Take by mouth once daily. 0 Active Comment on above: Take by mouth once d aily. multivitamin-children's (Flintstones Complete, iron,) chewable tablet (7 sources) multivitamin-chi ldren's (Flintstones Complete, iron,) chewable tablet Chew 2 tablets once daily. Active multivitamin-chi ldren's (Flintstones Complete, iron,) chewable tablet Chew 2 tablets once daily. 0 Active omeprazole 20 mg delayed release oral capsule (17 sources) Proton Pump Inhibitor Start: 08-30-2018 End: 09-17-2018 take 20 mg by mouth once daily Omeprazole Active 20 MG PO DAILY September 17, 2018 7:37pm End: 11-06-2024 take 1 tablet by mouth once daily before mealtime omeprazole OTC (PriLOSEC OTC) 20 mg EC tablet Take 1 tablet (20 mg) by mouth once daily in the morning. Take before meals. Do not crush, chew, or split. 11/06/2024 Discontinued (Therapy completed) pantoprazole 40 mg delayed release oral tablet (20 sources) Proton Pump Inhibitor Start: 07-26-2021 End: 11-06-2024 take 60-69.9 tablets by mouth once daily pantoprazole DR (PROTONIX) 40 mg tablet Indications: Class 3 severe obesity due to excess calories with serious comorbidity and body mass index (BMI) of 60.0 to 69.9 in adult (HCC) TAKE 1 TABLET BY MOUTH EVERY DAY 90 tablet 1 10/25/2022 Active Start: 03-18-2021 Pantoprazole S odium 40 MG Oral Tablet Delayed Release TAKE [address] Rosas Quantity: 0 Refills: 0 Ordered: 16-May-2021 DO Start : 18-Mar-2021 Active take 1 tablet by harper th once daily Protonix 20 MG Oral Tablet Delayed Release TAKE 1 TABLET DAILY. Quantity: 0 Refills: 0 Ordered: 31-Aug-2022 DO Active Comment on above: Take 1 tablet by harper th once daily. TAKE 1 TABLET BY HARPER TH EVERY DAY perflutren lipid microspheres 1.3 mL in NaCl (PF) 0.9% 10 mL injection (DEFINITY) (2 sources) Start: 3 End: 4 perflutren lipid microspheres 1.3 mL in NaCl (PF) 0.9% 10 mL injection (DEFINITY) polysaccharide iron complex 150 mg oral capsule (4 sources) Start: 0 take 150 mg by mouth once daily at mealtime Polysaccharide Iron Complex Active 150 MG PO DAILY WITH MEALS April 27, 2020 11:00pm 125 ml sodium chloride 9 mg/ml prefilled syringe (20 sources) Start: 3 End: 4 sodium chloride 0.9 % (flush) 10 mL (BD POSIFLUSH) Start: 07-29-2021 End: 10-28-2022 sodium chloride 0.9 % (flush ) 10 mL (BD POSIFLUSH) Completed/Discontinued Medications Medication Drug Class(es) Dates Sig (Normalized) Sig (Original) amitriptyline hydrochloride 50 mg oral tablet (20 sources) Tricyclic Antidepressant Start: 01-11-2021 End: 07-12-2022 take 1 tablet by mouth once daily at bedtime amitriptyline (ELAVIL) 25 mg tablet TAKE 1 TABLET BY MOUTH EVERYDAY AT BEDTIME 0 03/06/2021 07/12/2022 Discontinued Start: 01-11-2021 End: 01-09-2023 take 1 tablet by mouth once daily at bedtime amitriptyline (ELAVIL) 50 mg tablet Take 50 mg by mouth daily at bedtime. 06/22/2022 01/09/2023 Discontinued (Course of therapy completed) Comment on above: TAKE 1 TABLET BY HARPER EVERYDAY AT BEDTIME Take 50 mg by mouth daily at bedtime. azithromycin 250 mg oral tablet (5 sources) Macrolide Antimicrobial Start: 10-17-2022 Azithromycin 250 MG Oral Tablet TAKE 2 TABLETS ON DAY 1 THEN TAKE 1 TABLET A DAY FOR 4 DAYS. Quantity: 1 Refills: 0 Ordered: 17-Oct-2022 Vargas Mujica PA-C Start : 17-Oct-2022 Active Start: 08-31-2022 Azithromycin 2 50 MG Oral Tablet TAKE 2 TABLETS ON DAY 1 THEN TAKE 1 TABLET A DAY FOR 4 DAYS. Quantity: 1 Refills: 0 Ordered: 31-Aug-2022 Vargas Mujica PA-C Start : 31-Aug-2022 Active Start: 12-09-2021 End: 12-14-2021 take 2 tablets by mouth once daily, then take 1 tablet by mouth once daily azithromycin (ZITHROMAX) 250 mg tablet Indications: Acute otitis media, left Take 2 tablets by mouth once daily for 1 day, THEN 1 tablet once daily for 4 days. 6 tablet 0 12/09/2021 12/14/2021 Active Comment on above: Take 2 tablets by mo ut once daily for 1 day, THEN 1 tablet once daily for 4 days. Bariatric Fusion Oral Tablet Chewable (9 sources) Start: 2 take 1 tablet by mouth once daily Bariatric Fusion Oral Tablet Chewable 1500mg daily Quantity: 0 Refills: 0 Ordered: 27-Jul-2022 DO Start : 27-Jul-2022 Active 12 hr buPROPion hydrochloride 150 mg extended release oral tablet (12 sources) Aminoketone Start: End: buPROPion SR (WELLBUTRIN SR) 150 mg 12 hr tablet PLEASE SEE ATTACHED FOR DETAILED DIRECTIONS 03/26/2024 01/28/2025 Discontinued Start: 02-28-2024 End: 11-06-2024 take 1 tablet by mouth once daily, then take 1 tablet by mouth twice daily buPROPion SR (Wellbutrin SR) 150 mg 12 hr tablet Indications: Anxiety , Major depressive disorder, single episode, moderate (Multi) Do not crush, chew, or split. Take 1 tab po daily x 1-2 weeks then inc to 1 tab po bid 60 tablet 5 02/28/2024 11/06/2024 Discontinued (Therapy completed) calcium carb/vitamin D3/vit K1 (SOFT CHEWS CALCIUM ORAL) (7 sources) End: 11-06-2024 calcium carb/vitamin D3/vit K1 (SOFT CHEWS CALCIUM ORAL) Take by mouth early in the morning.. 11/06/2024 Discontinued (Therapy completed) calcium carb/vit ceja D3/vit K1 (SOFT CHEWS CALCIUM ORAL) Take by mouth early in the morning.. Active calcium carb/vit ceja D3/vit K1 (SOFT CHEWS CALCIUM ORAL) Take by mouth early in the morning.. 0 Active Calcium Citrate (20 sources) End: 01-28-2025 CALCIUM CITRATE ORAL Take by mouth once daily. 01/28/2025 Discontinued CALCIUM CITRATE ORAL Take by mouth once daily. Active CALCIUM CITRATE ORAL Take by mouth once daily. 0 Active Comment on above: Take by mouth once d aily. cholecalciferol 0.125 mg oral tablet (20 sources) Vitamin D Start: 11-20-19 End: 04-21-20 take 1 tablet by mouth once daily cholecalciferol (VITAMIN D-3) 5,000 unit tab Take 1 tablet by mouth once daily. 30 tablet 0 11/19/2021 04/21/2022 Discontinued (Discontinued by Patient) Start: 11-26-2020 take 125 ug by mouth once daily Cholecalciferol (Vitamin D3) Active 125 MCG PO DAILY November 25, 2020 11:00pm Start: 09-29-2020 End: 07-27-2022 take 2 tablets by mouth once daily in the evening Vitamin D 50 MCG (2000 UT) Oral Tablet OTC- TAKING 5000U QPM Quantity: 0 Refills: 0 Ordered: 2-Feb-2021 Josselyn Roblero MD Start : 29-Sep-2020 End : 27-Jul-2022 Complete Comment on above: Take 5,000 Units by mouth once daily. Take 1 tablet by harper th once daily. dexamethasone 6 mg oral tablet (4 sources) Corticosteroid Start: 021 End: 022 take 1 tablet by mouth once daily Dexamethasone 6 MG Oral Tablet TAKE 1 TABLET DAILY. Quantity: 5 Refills: 0 Ordered: 12-Aug-2021 Josselyn Roblero MD Start : 12-Aug-2021 End : 11-Nov-2021 Complete diphenhydrAMINE hydrochloride 25 mg oral tablet (1 source) Histamine-1 Receptor Antagonist Start: 017 Benadryl Allergy 25 MG Oral Tablet take 1 tablet 1/2 hour prior to MRI Quantity: 1 Refills: 0 Shaikh DINORAH, [facility] Start : 21-Dec-2016 Active docusate sodium 100 mg oral capsule (1 source) Start: 020 take 1 capsule by mouth every twelve hours Colace 100 MG Oral Capsule TAKE 1 CAPSULE Every twelve hours PRN constipation Quantity: 60 Refills: 1 Vargas Mujica PA-C Start : 14-Jan-2020 Active ergocalciferol, vitamin D2, (VITAMIN D2 ORAL) (7 sources) End: 025 ergocalciferol, vitamin D2, (VITAMIN D2 ORAL) Take by mouth early in the morning.. 11/06/2024 Discontinued (Therapy completed) ergocalciferol, vitamin D2, (VITAMIN D2 ORAL) Take by mouth early in the morning.. Active ergocalciferol, vitamin D2, (VITAMIN D2 ORAL) Take by mouth early in the morning.. 0 Active ferrous sulfate 325 mg oral tablet (6 sources) Start: 01-14-2020 take 1 tablet by mouth twice daily Ferrous Sulfate 325 (65 Fe) MG Oral Tablet TAKE 1 TABLET TWICE DAILY. Quantity: 60 Refills: 5 Vargas Mujica PA-C Start : 14-Jan-2020 Active Start: 12-14-2018 End: 04-28-2020 Ferrous Sulfate (Iron) 325 M G tablet Discontinued 325 MG PO NEEDED December 13, 2018 11:00pm April 28, 2020 9:27am [employer] [place]-3 DHA Oral Tablet Chewable (20 sources) End: 07-27-2022 take 1 tablet by mouth twice daily [employer] [place]-3 DHA Oral Tablet Chewable Take 1 tablet twice daily Quantity: 0 Refills: 0 Ordered: 27-Jul-2022 DO End : 27-Jul-2022 Complete take 1 tablet by mouth twice sandra ly [employer] [place]-3 DHA Oral Tablet Chewable Take 1 tablet twice daily Quantity: 0 Refills: 0 Ordered: 25-May-2021 DO Active furosemide 20 mg oral tablet (20 sources) Loop Diuretic Start: 12-28-2021 End: 01-28-2025 furosemide (Lasix) 20 mg tablet Indications: Lower extremity edema TAKE 1 TABLET BY MOUTH EVERY DAY FOR 7 DAYS THEN NEEDED FOR EDEMA 30 tablet 5 07/10/2023 11/06/2024 Discontinued (Therapy completed) Comment on above: Take 20 mg by mouth once daily. hydrOXYzine hydrochloride 25 mg oral tablet (2 sources) Antihistamine Start: 08-17-2022 take 1-2 tablets by mouth three times daily as needed hydrOXYzine HCl - 25 MG Oral Tablet TAKE 1-2 TABLETS TID PRN ITCHING Quantity: 40 Refills: 0 Ordered: 17-Aug-2022 Vargas Mujica PA-C Start : 17-Aug-2022 Active iron polysaccharide complex (FERREX 150 ORAL) (1 source) End: 01-26-2021 iron polysaccharide complex (FERREX 150 ORAL) Take by mouth once daily. 01/26/2021 Discontinued Lactobacillus acidophilus (7 sources) End: 11-06-2024 take 1 tablet by mouth once daily Lactobacillus acidophilus (PROBIOTIC ACIDOPHILUS ORAL) Take 1 tablet by mouth once daily. 11/06/2024 Discontinued (Therapy completed) take 1 tablet by mouth once oscar y Lactobacillus acidophilus (PROBIOTIC ACIDOPHILUS ORAL) Take 1 tablet by mouth once daily. Active take 1 tablet by mouth once oscar y Lactobacillus acidophilus (PROBIOTIC ACIDOPHILUS ORAL) Take 1 tablet by mouth once daily. 0 Active magnesium gluconate 550 mg oral tablet (6 sources) End: 11-06-2024 take 1 tablet by mouth twice daily magnesium 30 mg tablet Take 1 tablet (30 mg) by mouth 2 times a day. 11/06/2024 Discontinued (Therapy completed) Milk thistle extract (20 sources) End: 04-21-2022 MILK THISTLE ORAL Take by mouth. 0 04/21/2022 Discontinued (Discontinued by Patient) MILK THISTLE ORA L Take by mouth. 0 Active Comment on above: Take by mouth. ondansetron 4 mg oral tablet (20 sources) Serotonin-3 Receptor Antagonist Start: 2 End: 3 take 1 tablet by mouth every eight hours as needed ondansetron (ZOFRAN) 4 mg tablet Take 1 tablet by mouth every 8 hours as needed for nausea/vomiting. 12 tablet 04/12/2022 01/09/2023 Discontinued (Course of therapy completed) Comment on above: Take 1 tablet by harper th every 8 hours as needed for nausea/vomiting. oxyCODONE hydrochloride 5 mg oral tablet (20 sources) Opioid Agonist Start: 2 End: 3 take 1 tablet by mouth every six hours as needed oxyCODONE IR (ROXICODONE) 5 mg immediate release tablet Indications: Severe obesity (HCC) Take 1 tablet by mouth every 6 hours as needed. 25 tablet 04/12/2022 01/09/2023 Discontinued (Course of therapy completed) Comment on above: Take 1 tablet by harper th every 6 hours as needed. predniSONE 10 mg oral tablet (8 sources) Start: 2 take 2 tablets by mouth three times daily, then take 1 tablet by mouth three times daily, then take 1 tablet by mouth twice daily, then take 1 tablet by mouth once daily predniSONE 10 MG Oral Tablet take 2 tab po tid x 3 days then 1 tab po tid x 3 days then 1 tab bid x 3 days then 1 tab daily x 3 days Quantity: 36 Refills: 0 Ordered: 27-Jul-2022 Vargas Mujica PA-C Start : 27-Jul-2022 Active Start: 11-11-2021 End: 11-29-2021 take 1 tablet by mouth once daily predniSONE 20 MG Oral Tablet TAKE 1 TABLET DAILY DIRECTED. Quantity: 7 Refills: 0 Ordered: 11-Nov-2021 Talya Samuel Start : 11-Nov-2021 End : 29-Nov-2021 Complete Probiotic Multi-Enzyme TABS (20 sources) Probiotic Multi-Enzyme TABS Take 1 tablet daily Quantity: 0 Refills: 0 Ordered: 25-May-2021 DO Active sucralfate 1000 mg oral tablet (5 sources) Aluminum Complex Start: 04-06-20 Sucralfate 1 GM Oral Tablet TAKE TABLET Twice daily DR. ROSAS Quantity: 0 Refills: 0 Ordered: 03-May-2021 DO Start : 06-Apr-2021 Active thiamine 100 mg oral tablet (20 sources) Start: 12-23-19 End: 12-11-19 take 1 tablet by mouth once daily thiamine mononitrate (VITAMIN B-1, MONONITRATE,) 100 mg tab Indications: Thiamine deficiency Take 1 tablet by mouth once daily. 90 tablet 1 12/10/2021 Active Comment on above: TAKE 1 TABLET BY HARPER TH EVERY DAY Take 1 tablet by harper th once daily. 24 hr venlafaxine 75 mg extended release oral capsule (20 sources) Serotonin and Norepinephrine Reuptake Inhibitor Start: 02-28-20 End: 11-07-19 take 1 capsule by mouth twice daily venlafaxine XR (Effexor-XR) 75 mg 24 hr capsule Indications: Major depressive disorder, single episode, moderate (Multi) Take 1 capsule (75 mg) by mouth 2 times a day. 180 capsule 3 02/28/2024 11/06/2024 Discontinued (Therapy completed) Start: 09-25-2023 End: 02-28-2024 take 1 capsule by mouth once daily venlafaxine XR (Effexor-XR) 75 mg 24 hr capsule Indications: Major depressive disorder, single episode, moderate (Multi) Take 1 capsule (75 mg) by mouth once daily. 90 capsule 3 09/25/2023 02/28/2024 Discontinued (Reorder) Start: 12-20-2019 End: 01-28-2025 take 1 capsule by mouth twice daily venlafaxine ER (EFFEXOR XR) 75 mg 24 hr capsule Take 75 mg by mouth twice daily. 04/22/2020 01/09/2023 Discontinued (Course of therapy completed) Start: 12-20-2019 take 1 capsule by mo [facility] once daily, then take 1 capsule by mouth twice daily Venlafaxine HCl ER 37.5 MG Oral Capsule Extended Release 24 Hour 1 CAPSULE PO DAILY X 1 WEEK, THEN INCREASE TO 1 CAPSULE PO BID Quantity: 60 Refills: 5 Vargas Mujica PA-C Start : 20-Dec-2019 Active End: 11-06-2024 take 1 tablet by mouth every other day venlafaxine (Effexor) 75 mg tablet Take 1 tablet (75 mg) by mouth every other day. 11/06/2024 Discontinued (Therapy completed) Comment on above: Take 75 mg by mouth twice daily. Vitamin B-1 TABS (7 sources) Vitamin B-1 TABS Quantity: 0 Refills: 0 Ordered: 11-Jan-2021 DO Active Problems Active Problems Problem Classification Problem Date Documented Da te Episodic/Chronic Abdominal pain (20 sources) Right upper quadrant pain; Translations: [Abdominal pain, right upper quadrant] Episodic Anxiety disorders (20 sources) Anxiety; Translations: [Posttraumatic stress disorder] Onset: 3 02-09-2023 Chronic Cardiac dysrhythmias (20 sources) Wide QRS ventricular tachycardia; Translations: [Ventricular tachycardia] Onset: 9 09-20-2018 Chronic Cardiac dysrhythmias (20 sources) Palpitations; Translations: [Palpitations] Onset: 9 09-20-2018 Episodic Coagulation and hemorrhagic disorders (2 sources) Fibrinogen abnormality; Translations: [Platelet count below reference range] Chronic Conditions associated with dizziness or vertigo (20 sources) Lightheadedness; Translations: [Dizziness and giddiness] Onset: 3 Episodic Developmental disorders (20 sources) Mild intellectual disability; Translations: [Mild intellectual disabilities] Onset: 3 02-08-2023 Chronic Diabetes mellitus without complication (20 sources) Impaired glucose tolerance; Translations: [Impaired glucose tolerance test (oral)] Onset: 3 02-09-2023 Episodic Disorders of lipid metabolism (9 sources) Hypercholesterolemia; Translations: [Pure hypercholesterolemia] Chronic Esophageal disorders (20 sources) Gastroesophageal reflux disease; Translations: [Esophageal reflux] Onset: 9 09-19-2018 Chronic Fever of unknown origin (13 sources) Low grade pyrexia; Translations: [Fever, unspecified] Episodic Genitourinary symptoms and ill-defined conditions (1 source) Urinary incontinence; Translations: [Unspecified urinary incontinence] 02-09-2023 Chronic Hepatitis (20 sources) Nonalcoholic steatohepatitis; Translations: [Nonalcoholic steatohepatitis (TORRES)] Onset: 5 08-23-2021 Chronic Immunity disorders (4 sources) Hypergammaglobulinemia ; 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, unspecified] 06-24-2020 Chronic Miscellaneous mental health disorders (20 sources) Insomnia disorder related to another mental disorder; Translations: [Dysthymic disorder] Onset: 3 02-09-2023 Chronic Mood disorders (20 sources) Depressive disorder; Translations: [Depression] Onset: 5 04-09-2015 Chronic Nutritional deficiencies (20 sources) Vitamin D deficiency; Translations: [Unspecified vitamin D deficiency] Onset: 6 08-23-2021 Chronic Nutritional deficiencies (20 sources) Vitamin deficiency; Translations: [Deficiency of other vitamins] Episodic Other and ill-defined heart disease (20 sources) Right ventricular thrombus; Translations: [Intracardiac thrombosis, not elsewhere classified] Onset: 9 12-04-2018 Chronic Other bone disease and musculoskeletal deformities (10 sources) Costal chondritis; Translations: [Tietze's disease] Episodic Other circulatory disease (20 sources) History of hypotension; Translations: [Personal history of other diseases of circulatory system] Episodic Other circulatory disease (3 sources) Pulmonary congestion ; Translations: [Other symptoms involving respiratory system and chest] Episodic Other connective tissue disease (2 sources) Pain in right foot; Translations: [Pain in right foot] Episodic Other connective tissue disease (2 sources) Pain in left foot; Translations: [Pain in left foot] 06-07-2024 Episodic Other connective tissue disease (1 source) Foot pain; Translations: [Pain in left foot] 11-06-2024 Episodic Other diseases of kidney and ureters (20 sources) Caliectasis; Translations: [Other specified disorders of kidney and ureter] Onset: 3 02-08-2023 Chronic Other ear and sense organ disorders (1 source) Impacted cerumen of bilateral ears; Translations: [Impacted cerumen, bilateral] Episodic Other endocrine disorders (1 source) Hormone increase; Translations: [Endocrine disorder, unspecified] Episodic Other gastrointestinal disorders (20 sources) Abdominal bloating; Translations: [Flatulence, eructation, and gas pain] Episodic Other gastrointestinal disorders (20 sources) Constipation; Translations: [Constipation, unspecified] Episodic Other gastrointestinal disorders (1 source) Heartburn; Translations: [Heartburn] Episodic Other gastrointestinal disorders (5 sources) History of sleeve gastrectomy; Translations: [Bariatric surgery status] Episodic Other infections; including parasitic (4 sources) Late effects of other and unspecified infectious and parasitic diseases; Translations: [COVID-19 long hauler] Chronic Other infections; including parasitic (3 sources) Personal history of other infectious and parasitic diseases; Translations: [History of COVID-19] Episodic Other inflammatory condition of skin (7 sources) Itching of skin; Translations: [Unspecified pruritic disorder] Episodic Other injuries and conditions due to external causes (2 sources) Injury of left foot; Translations: [Unspecified injury of left foot, initial encounter] 06-07-2024 Episodic Other liver diseases (13 sources) Non-alcoholic fatty liver; Translations: [Other chronic nonalcoholic liver disease] Chronic Other liver diseases (2 sources) Steatosis of liver; Translations: [Fatty (change of) liver, not elsewhere classified] Chronic Other liver diseases (2 sources) Hepatic fibrosis; Translations: [Hepatic fibrosis] Chronic Other liver diseases (20 sources) Fatty (change of) liver, not elsewhere classified; Translations: [Fatty liver disease, nonalcoholic] Onset: 3 02-09-2023 Chronic Other liver diseases (9 sources) Elevated liver enzymes level; Translations: [Abnormal levels of other serum enzymes] Episodic Other lower respiratory disease (20 sources) Dyspnea; Translations: [Other respiratory abnormalities] Episodic Other lower respiratory disease (20 sources) Cough; Translations: [Cough] Episodic Other lower respiratory disease (3 sources) Dyspnea on exertion; Translations: [Shortness of breath] Episodic Other lower respiratory disease (1 source) Cough; Translations: [Acute cough] 09-22-2022 Episodic Other nervous system disorders (5 sources) Other chronic pain; Translations: [Other chronic pain] Onset: 3 Chronic Other nervous system disorders (20 sources) Loss of sense of smell; Translations: [Disturbances of sensation of smell and taste] Episodic Other non-traumatic joint disorders (20 sources) Pain in right knee; Translations: [Knee pain, right] Episodic Other non-traumatic joint disorders (20 sources) Hip pain; Translations: [Pain in joint, pelvic region and thigh] Episodic Other non-traumatic joint disorders (1 source) Pain in left ankle and joints of left foot; Translations: [Pain in left ankle and joints of left foot] Onset: 5 Episodic Other nutritional; endocrine; and metabolic disorders (20 sources) Morbid obesity; Translations: [Morbid obesity] Onset: 5 04-09-2015 Chronic Other nutritional; endocrine; and metabolic disorders (20 sources) [id number] deficiency; Translations: [[id number] deficiency] Onset: 9 09-20-2018 Chronic Other nutritional; endocrine; and metabolic disorders (20 sources) Severe obesity; Translations: [Morbid obesity] Onset: 9 Chronic Other nutritional; endocrine; and metabolic disorders (20 sources) Body mass index 40+ - severely obese; Translations: [Morbid (severe) obesity due to excess calories] Onset: 9 09-20-2018 Chronic Other nutritional; endocrine; and metabolic disorders (4 sources) Obesity; Translations: [Obesity, unspecified] 11-30-2020 Chronic Other nutritional; endocrine; and metabolic disorders (2 sources) Morbid (severe) obesity due to excess calories; Translations: [Morbid (severe) obesity due to excess calories (Multi)] Onset: 3 Chronic Other nutritional; endocrine; and metabolic disorders (2 sources) Body mass index (BMI) 50.0-59.9, adult; Translations: [Body mass index (BMI) 50.0-59.9, adult (Multi)] Onset: 3 Chronic Other nutritional; endocrine; and metabolic disorders (20 sources) Weight gain; Translations: [Abnormal weight gain] Episodic Other nutritional; endocrine; and metabolic disorders (20 sources) H/O: thyroid disorder; Translations: [Personal history of other endocrine, metabolic, and immunity disorders] Episodic Other nutritional; endocrine; and metabolic disorders (20 sources) Decrease in appetite; Translations: [Anorexia] Episodic Other upper respiratory disease (1 source) Chronic rhinitis; Translations: [Unspecified sinusitis (chronic)] Chronic Other upper respiratory infections (2 sources) Acute upper respiratory infection; Translations: [Acute upper respiratory infection, unspecified] Episodic Pleurisy; pneumothorax; pulmonary collapse (9 sources) Pleurisy; Translations: [Pleurisy] 08-25-2022 Episodic Residual codes; unclassified (20 sources) Obstructive sleep apnea syndrome; Translations: [Obstructive sleep apnea (adult)(pediatric)] Onset: 9 09-26-2018 Chronic Residual codes; unclassified (20 sources) Sleep apnea; Translations: [Sleep apnea, unspecified] Onset: 5 08-23-2021 Chronic Residual codes; unclassified (20 sources) H/O: Disorder; Translations: [Personal history of other specified diseases] Episodic Residual codes; unclassified (20 sources) Influenza vaccination declined; Translations: [Vaccination not carried out because of patient refusal] Episodic Comment on above: 2019; Rheumatoid arthritis and related disease (20 sources) Ankylosing spondylitis; Translations: [Ankylosing spondylitis of unspecified sites in spine] Onset: 8 Resolved: 4 09-20-2018 Chronic Screening and history of mental health and substance abuse codes (20 sources) H/O: anxiety state; Translations: [Personal history of other mental disorders] Episodic Spondylosis; intervertebral disc disorders; other back problems (20 sources) Prolapsed lumbar intervertebral disc; Translations: [Displacement of lumbar intervertebral disc without myelopathy] Onset: 3 02-08-2023 Chronic Thyroid disorders (20 sources) Shahzad thyroiditis; 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 thyroiditis] Onset: 6 05-31-2016 Chronic Unclassified (2 sources) Morbid (severe) obesity due to excess calories Onset: 9 Unclassified (1 source) Low back pain, unspecified; Translations: [Low back pain, unspecified] Onset: 3 Unclassified (1 source) Obesity, class 3; Translations: [Obesity, class 3] Onset: 3 Unclassified (1 source) Acute cough; Translations: [Acute cough] Onset: 4 Viral infection (20 sources) Disease caused by 2019-nCoV; Translations: [Other specified viral infection] Episodic Past or Other Problems Problem Classification Problem Date Documented Da te Episodic/Chronic Deficiency and other anemia (20 sources) Iron deficiency anemia; Translations: [Iron deficiency anemia, unspecified] Onset: 3 06-24-2020 Episodic Headache; including migraine (6 sources) Headache; Translations: [Headache] Onset: 4 Resolved: 4 10-19-2023 Episodic Malaise and fatigue (20 sources) Malaise and fatigue; Translations: [Other malaise and fatigue] Onset: 3 02-08-2023 Episodic Mood disorders (6 sources) Mood disorders Onset: 4 Resolved: 4 09-25-2023 Nonspecific chest pain (20 sources) Anterior chest wall pain; Translations: [Other chest pain] Onset: 0 06-29-2020 Episodic Other aftercare (20 sources) Patient encounter status; Translations: [Long-term (current) use of other medications] Onset: 9 12-04-2018 Episodic Other aftercare (2 sources) Other long-term (current) drug therapy; Translations: [Other truck terminal manager (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) drug therapy] Onset: 4 Episodic Other connective tissue disease (3 sources) Pain in left foot; Translations: [Pain in left foot] Onset: 4 Episodic Other diseases of kidney and ureters (20 sources) Hydronephrosis; Translations: [Hydronephrosis] Onset: 3 02-08-2023 Episodic Other gastrointestinal disorders (20 sources) Drug-induced constipation; Translations: [Other constipation] Onset: 3 02-08-2023 Episodic Other gastrointestinal disorders (3 sources) History of bariatric surgical procedure; Translations: [Bariatric surgery status] Onset: 4 07-11-2024 Episodic Other gastrointestinal disorders (1 source) Bariatric surgery status; Translations: [Bariatric surgery status] Onset: 4 Episodic Other injuries and conditions due to external causes (1 source) Unspecified injury of left foot, initial encounter; Translations: [Injury of left foot, initial encounter] Onset: 4 Episodic Other liver diseases (20 sources) Large liver; Translations: [Hepatomegaly] Onset: 3 Episodic Other nervous system disorders (20 sources) Numbness of hand; Translations: [Disturbance of skin sensation] Onset: 3 02-08-2023 Episodic Other nervous system disorders (1 source) Paresthesia of skin; Translations: [Paresthesia of skin] Onset: 5 Episodic Other non-traumatic joint disorders (10 sources) Multiple joint pain; Translations: [Pain in unspecified joint] Onset: 3 02-09-2023 Episodic Other non-traumatic joint disorders (4 sources) Pain in unspecified joint; Translations: [Pain in unspecified joint] Onset: 3 Episodic Other screening for suspected conditions (not mental disorders or infectious disease) (20 sources) Thyroid function tests abnormal; Translations: [Liver function tests abnormal] Onset: 8 Resolved: 5 06-29-2020 Episodic Phlebitis; thrombophlebitis and thromboembolism (20 sources) Thrombophlebitis of superficial vein of right upper limb; Translations: [Phlebitis and thrombophlebitis of other sites] Onset: 9 12-04-2018 Episodic Pulmonary heart disease (20 sources) H/O: pulmonary embolus; Translations: [Personal history of pulmonary embolism] Onset: 9 12-04-2018 Episodic Residual codes; unclassified (20 sources) Edema of lower extremity; Translations: [Edema] Onset: 3 02-08-2023 Episodic Residual codes; unclassified (20 sources) Bilateral lower limb edema; Translations: [Localized edema] Onset: 9 12-04-2018 Episodic Residual codes; unclassified (20 sources) History of radiofrequency ablation operation for arrhythmia; Translations: [Other specified postprocedural states] Onset: 3 01-09-2023 Episodic Spondylosis; intervertebral disc disorders; other back problems (20 sources) Chronic low back pain; Translations: [Lumbago] Onset: 5 04-09-2015 Episodic Unclassified (2 sources) Patient encounter status; Translations: [Medication management] Unclassified (1 source) Influenza vaccination declined; Translations: [History of Influenza vaccination declined] Unclassified (4 sources) blood clot 03-27-2022 Unclassified (7 sources) Onset: 3 Resolved: 5 02-09-2023 Unclassified (1 source) Low back pain, unspecified; Translations: [Low back pain, unspecified] Onset: 4 Unclassified (1 source) Obesity, class 3; Translations: [Obesity, class 3] Onset: 4 NEGATED: Highlighted row has not occurred!Residual codes; unclassified (10 sources) Disease Episodic Results Test Name Value Interpretation Reference Range Facility [facility] CURLY COWART ([id number]) 1985 F Date Time Provider Department 01/29/25 JOHANNY MARMOLEJO AGCARDPOB During your visit today, we recorded the following information about you: Johanny Meredith LPN 01/29/2025 11:14 AM Signed [facility] asking for an order for Calcium Scoring to be faxed to [phone]. JENI Ayala Stacey, RN 01/29/2025 11:27 AM Signed Order faxed. Confirmation received. Boris Roberts RN Allergies As of Date: 01/29/2025 Noted Allergy Reaction BUPROPION 06/02/2021 2 - Rash CITALOPRAM 06/02/2021 14 - Other: See Comments 11 - Vomiting DOXYCYCLINE 06/07/2024 4 - Hives HYDROCODONE-ACETAMINOP HEN 01/29/2016 4 - Hives 8 - GI Upset MECLIZINE 06/02/2021 14 - Other: See Comments MORPHINE 08/24/2016 14 - Other: See Comments Comments: Abdominal pain NADOLOL 11/13/2018 9 - Itching PENICILLINS 01/28/2008 4 - Hives PREDNISONE 09/22/2022 9 - Itching BUPROPION HCL 02/08/2023 2 - Rash Date Reviewed: 01/28/2025 Reviewed by: Alejandrina Weber MA - Fully Assessed Prescriptions as of 01/29/2025 - aspirin 81 mg chewable tablet Take 81 mg by mouth once daily. - pantoprazole DR (PROTONIX) 40 mg tablet TAKE 1 TABLET BY MOUTH EVERY DAY - BIOTIN ORAL Take by mouth once daily. - multivit-min/iron/foli c acid/K (BARIATRIC MULTIVITAMINS ORAL) Take by mouth once daily. - Lactobac no.41/Bifidobact no.7 (PROBIOTIC-10 ORAL) Take by mouth. - LORazepam (ATIVAN) 0.5 mg Take 1 mg by mouth as needed. Problem List As Of Date 01/29/2025 Noted Resolved Nonspecific abnormal results of liver function *03/03/2008 04/09/2015 Morbid obesity (HCC) [E66.01] 04/09/2015 Steatohepatitis, non-alcoholic [K75.81] 04/09/2015 Depression [F32.A] 04/09/2015 Chronic low back pain [M54.50, G89.29] 04/09/2015 Sleep apnea [G47.30] 04/21/2015 Vitamin D deficiency [E55.9] 01/25/2016 Hypothyroidism [E03.9] 05/31/2016 Wide-complex tachycardia (HCC) [R00.0] 09/18/2018 Obesity, Class III, BMI >= 40 [E66.813] 09/19/2018 Rqckw-4-msgzvofmcej 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] 09/19/2018 Ankylosing spondylitis (HCC) [M45.9] 09/19/2018 Gastroesophageal reflux disease [K21.9] 09/19/2018 Inflammatory polyarthropathy (HCC) [M06.4] 07/09/2018 Sustained VT (ventricular tachycardia) (HCC) [I*09/20/2018 Ventricular tachycardia (HCC) [I47.20] 09/20/2018 Class 3 severe obesity in adult (HCC) [E66.813] 09/20/2018 BRISEYDA (obstructive sleep apnea) [G47.33] 09/20/2018 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 [*09/20/2018 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] 12/04/2018 Bilateral leg edema [R60.0] 12/04/2018 Anticoagulation management encounter [Z51.81, Z*12/04/2018 Encounter for screening for cardiovascular diso*06/29/2020 Precordial pain [R07.2] 06/29/2020 Severe obesity (HCC) [E66.01] 04/11/2022 H/O cardiac radiofrequency ablation [Z98.890] 01/09/2023 Palpitations [R00.2] 01/09/2023 Encounter Status:Closed by BORIS ROBERTS on 01/29/25 [facility] CNOVon 01-28-2025 CNOV Office Visit (AGCARDPOB) CURLY COWART ([id number]) 1985 F Date Time Provider Department 01/28/25 2:30 PM JOHANNY MARMOLEJO AGCARDPOB During your visit today, we recorded the following information about you: Pulse Blood pressure Weight 72/minute 128/78 153.8 kg Johanny Marmolejo APRN.[employer] WORKER 01/30/2025 11:11 AM Signed Chief Complaint Patient presents with: Cardiology Follow Up - Generic: sooner f/u than [place] - bradycardia History of Present Illness: Curly Jules Sofya is a very pleasant 39 year old female who presents for symptom concerns. She has a past medical history of wide-complex tachycardia (s/p ablation 2018 at [facility]), gastric bypass surgery. She is known to Dr. Garay, last seen in our [place] office location 01/09/2023. The patient is a 39-year-old female with a history of VT, status post-ablation in 2019, presenting for evaluation of bradycardia and fatigue. The patient reports a progressively decreasing heart rate since her VT ablation in 2019, with current readings in the 40s to 50s, compared to a previous baseline of 60 bpm. She denies any recurrence of VT since the ablation. She experiences significant fatigue but attributes it partially to poor sleep. She denies experiencing lightheadedness or syncope. She is not currently on any medications that would lower her heart rate, such as beta-blockers. Patient lately noticed increased episodes of palpitations not associated with any dizziness or lightheadedness but chest tightness She also noticed that her heart rate is slow down in the 50s She reports intermittent chest pain, described as random pains in the heart area and occasionally on the opposite side. She also experiences arm pain and has had episodes of arm numbness lasting up to a week, which resolved spontaneously. These symptoms have been occurring on and off for years. She describes a constant feeling of inflammation and swelling, though she attributes this to a previously diagnosed Shahzad's thyroiditis, for which she is not currently on medication due to normal thyroid levels. She expresses concern about an underlying condition affecting her entire body. She has a significant family history of cardiac issues, including AFib, CHF, and heart valve abnormalities. Her grandfather underwent a heart transplant but did not survive. Her father had multiple health issues, including cardiac problems, and almost two years ago. She also reports a history of VT in her family. She is currently working with a dietitian through [employer] to improve her health and manage her weight. She is also undergoing therapy to address the emotional stress and trauma related to her past medical experiences and family health issues. She has a prescription for Ativan 1 mg as needed for anxiety but has been avoiding its use due to concerns about its potential effects on her heart rate. She denies taking Wellbutrin, Lasix, calcium citrate, or Effexor. Patient scheduled for follow up Dr. Garay's first available appointment in [place] on 09/15/2025. PAST MEDICAL HISTORY Diagnosis Date Ehudi-4-bisbjifpbgi deficiency (HCC) Cardiac dysrhythmia, unspecified 2007 Depressive disorder, not elsewhere classified DVT (deep venous thrombosis) (HCC) after PICC line Esophageal reflux Shahzad thyroiditis 04/09/2015 Intestinal disaccharidase deficiencies and disaccharide malabsorption Irritable bowel syndrome Morbid obesity (HCC) stated BMI 47.3 BRISEYDA (obstructive sleep apnea) Other chronic nonalcoholic liver disease Personal history of tobacco use, presenting hazards to health 1/2 ppd x 5 years; quit 08/18/14 - restarted and quit in 2019 Pneumonia due to COVID-19 virus 07/2021 Pulmonary embolism (HCC) after PICC line V-tach (HCC) PAST SURGICAL HISTORY Procedure Laterality Date DELIVERY ONLY 2002 , low cervical CHOLECYSTECTOMY 01/08/2008 EGD 04/2021 EGD 02/2021 LAPAROSCOPIC GASTRECTOMY 04/11/2022 LAPAROSCOPIC UTERINE NERVE ABLATION 2012 LIVER BIOPSY 2008 MIDLINE CATHETER 09/21/2018 PAST SURGICAL HISTORY OF 2009 spring coils in fallopian tubes S BALLOON,UTERINE ABLATION 66931 2009 SHX CARDIAC RADIOFREQUENCY ABLATION 2018 ventricular TONSILLECTOMY PRIMARY/SECONDARY Tonsillectomy, wisdom teeth FAMILY HISTORY Problem Relation Age of Onset Anxiety disorder Mother panic attacks Heart Attack Father 54 Heart disease Father coronary stents other (liver disease) Father alpha 1 antitrypsin; has liver transplant other (atrial fibrillation) Father Thyroid Sister Hashimotos Anxiety disorder Sister other (atrial fibrillation) Paternal Grandmother Heart disease Paternal Grandfather heart transplant other (liver failure) Paternal Grandfather Anxiety disorder Sister other (atrial fibrillation) Paternal Uncle other (atr (more content not included)... Normal [facility] CNPInna 01-09-2025 CNPN Telephone (CARDWS) CURLY COWART ([id number]) 1985 F Date Time Provider Department 01/09/25 TOMASZ GARAY During your visit today, we recorded the following information about you: Kae Mello 01/09/2025 3:56 PM Signed Patient calling to report that she continues to experience bradycardia symptoms (heart rate between 40 and 50). Patient is concerned of low heart rate due to family history and wanted to schedule an appointment with Dr. Garay to further discuss. Patient scheduled for Dr. Garay's first available appointment on 09/15/2025. Patient is requesting to be seen sooner if possible. Sada Membreno 01/13/2025 9:30 AM Signed Called pt and left voicemail stating we could get her in sooner if she is willing to come to [place]. Waiting to hear back from pt if she would like to reschedule. Sada Membreno Zenaida Juniory 01/13/2025 11:05 AM Signed Pt called back in. Pt scheduled 01/28/2025 with Caridad Junior Allergies As of Date: 01/09/2025 Noted Allergy Reaction BUPROPION 06/02/2021 2 - Rash CITALOPRAM 06/02/2021 14 - Other: See Comments 11 - Vomiting DOXYCYCLINE 06/07/2024 4 - Hives HYDROCODONE-ACETAMINOP HEN 01/29/2016 4 - Hives 8 - GI Upset MECLIZINE 06/02/2021 14 - Other: See Comments MORPHINE 08/24/2016 14 - Other: See Comments Comments: Abdominal pain NADOLOL 11/13/2018 9 - Itching PENICILLINS 01/28/2008 4 - Hives PREDNISONE 09/22/2022 9 - Itching BUPROPION HCL 02/08/2023 2 - Rash Date Reviewed: 06/07/2024 Reviewed by: Laura Niño MA - Fully Assessed Reason for Visit: Appointment [186] Patient Update [1234] Prescriptions as of 01/13/2025 - venlafaxine ER (EFFEXOR XR) 75 mg 24 hr capsule Take 75 mg by mouth two times a day. - buPROPion SR (WELLBUTRIN SR) 150 mg 12 hr tablet PLEASE SEE ATTACHED FOR DETAILED DIRECTIONS - pantoprazole DR (PROTONIX) 40 mg tablet TAKE 1 TABLET BY MOUTH EVERY DAY - furosemide (LASIX) 20 mg tablet Take 20 mg by mouth once daily. - BIOTIN ORAL Take by mouth once daily. - multivit-min/iron/foli c acid/K (BARIATRIC MULTIVITAMINS ORAL) Take by mouth once daily. - CALCIUM CITRATE ORAL Take by mouth once daily. - Lactobac no.41/Bifidobact no.7 (PROBIOTIC-10 ORAL) Take by mouth. - LORazepam (ATIVAN) 0.5 mg Take 1 mg by mouth as needed. Problem List As Of Date 01/09/2025 Noted Resolved Nonspecific abnormal results of liver function *03/03/2008 04/09/2015 Morbid obesity (HCC) [E66.01] 04/09/2015 Steatohepatitis, non-alcoholic [K75.81] 04/09/2015 Depression [F32.A] 04/09/2015 Chronic low back pain [M54.50, G89.29] 04/09/2015 Sleep apnea [G47.30] 04/21/2015 Vitamin D deficiency [E55.9] 01/25/2016 Hypothyroidism [E03.9] 05/31/2016 Wide-complex tachycardia (HCC) [R00.0] 09/18/2018 Obesity, Class III, BMI >= 40 [E66.813] 09/19/2018 Fjdpf-5-pkyydcvhjxy 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] 09/19/2018 Ankylosing spondylitis (HCC) [M45.9] 09/19/2018 Gastroesophageal reflux disease [K21.9] 09/19/2018 Inflammatory polyarthropathy (HCC) [M06.4] 07/09/2018 Sustained VT (ventricular tachycardia) (HCC) [I*09/20/2018 Ventricular tachycardia (HCC) [I47.20] 09/20/2018 Class 3 severe obesity in adult (HCC) [E66.813] 09/20/2018 BRISEYDA (obstructive sleep apnea) [G47.33] 09/20/2018 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 [*09/20/2018 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] 12/04/2018 Bilateral leg edema [R60.0] 12/04/2018 Anticoagulation management encounter [Z51.81, Z*12/04/2018 Encounter for screening for cardiovascular diso*06/29/2020 Precordial pain [R07.2] 06/29/2020 Severe obesity (HCC) [E66.01] 04/11/2022 H/O cardiac radiofrequency ablation [Z98.890] 01/09/2023 Palpitations [R00.2] 01/09/2023 Encounter Status:Closed by SADA MEMBRENO on 01/13/25 Normal [facility] Basic Metabolic Profile (BMP )on 12-20-2024 BUN/CRE 13.2 RATIO Normal 06-16 [facility] Comment on above: Performed By: #### L 100.0500, L500.2500, L501.9520 ####[facility] [address] [place], [address] Calcium [Mass/Vol] 9.6 mg/dL Normal 7.6-11.0 [facility] Comment on above: Performed By: #### L 100.0500, L500.2500, L501.9520 ####[facility] [address] [place], [address] Chloride [Moles/Vol] 103 mmol/L Normal 98-108 [facility] Comment on above: Performed By: #### L 100.0500, L500.2500, L501.9520 ####[facility] [address] [place], [address] CO2 [Moles/Vol] 26.1 mmol/L Normal 21.0-32.0 [facility] Comment on above: Performed By: #### L 100.0500, L500.2500, L501.9520 ####[facility] [address] [place], [address] Creatinine [Mass/Vol] 0.67 mg/dL Low 0.70-1.20 [facility] Comment on above: Performed By: #### L 100.0500, L500.2500, L501.9520 ####[facility] [address] [place], [address] ECRCL 167.96 ml/min Normal 50-250 [facility] Comment on above: Performed By: #### L 100.0500, L500.2500, L501.9520 ####[facility] [address] [place], [address] GAP 10 Normal 5-15 [facility] Comment on above: Performed By: #### L 100.0500, L500.2500, L501.9520 ####[facility] [address] [place], [address] GFR/1.73 sq M.predicted among non-blacks MDRD (S/P/Bld) [Vol rate/Area] 112 mL/min/{1.73_m2} Normal >60 [facility] Comment on above: Result Comment: mL/m in/1.73m2 CKD-EPI Creatinine Equation (2020) Performed By: #### L 100.0500, L500.2500, L501.9520 ####[facility] [address] [place], [address] Glucose [Mass/Vol] 131 mg/dL High 70-99 [facility] Comment on above: Performed By: #### L 100.0500, L500.2500, L501.9520 ####[facility] [address] [place], [address] Potassium [Moles/Vol] 3.8 mmol/L Normal 3.3-5.1 [facility] Comment on above: Performed By: #### L 100.0500, L500.2500, L501.9520 ####[facility] [address] [place], [address] Sodium [Moles/Vol] 139 mmol/L Normal 133-145 [facility] Comment on above: Performed By: #### L 100.0500, L500.2500, L501.9520 ####[facility] [address] [place], [address] Urea nitrogen [Mass/Vol] 9 mg/dL Normal 4-19 [facility] Comment on above: Performed By: #### L 100.0500, L500.2500, L501.9520 ####[facility] [address] [place], [address] CBC-Complete Blood Cnt No Di ffon 12-20-2024 Erythrocyte distribution width (RBC) [Ratio] 13.4 % Normal 11.6-14.6 [facility] Comment on above: Performed By: #### L 100.0500, L500.2500, L501.9520 ####[facility] [address] [place], [address] Hematocrit (Bld) [Volume fraction] 45.9 % Normal 37-47 [facility] Comment on above: Performed By: #### L 100.0500, L500.2500, L501.9520 ####[facility] [address] [place], [address] Hemoglobin (Bld) [Mass/Vol] 15.3 g/dL High 12.0-15.0 [facility] Comment on above: Performed By: #### L 100.0500, L500.2500, L501.9520 ####[facility] [address] [place], [address] MCH (RBC) [Entitic mass] 28.1 pg Normal 27.0-32.0 [facility] Comment on above: Performed By: #### L 100.0500, L500.2500, L501.9520 ####[facility] [address] [place], [address] MCHC (RBC) [Mass/Vol] 33.3 g/dL Normal 32-36 [facility] Comment on above: Performed By: #### L 100.0500, L500.2500, L501.9520 ####[facility] [address] [place], [address] MCV (RBC) [Entitic vol] 84.4 fL Normal 81-99 [facility] Comment on above: Performed By: #### L 100.0500, L500.2500, L501.9520 ####[facility] [address] [place], [address] Platelet mean volume (Bld) [Entitic vol] 11.3 fL Normal 6.2-12.0 [facility] Comment on above: Performed By: #### L 100.0500, L500.2500, L501.9520 ####[facility] [address] [place], [address] Platelets (Bld) [#/Vol] 204 10*3/uL Normal 150-450 [facility] Comment on above: Performed By: #### L 100.0500, L500.2500, L501.9520 ####[facility] [address] [place], [address] RBC (Bld) [#/Vol] 5.44 10*6/uL High 4.2-5.4 [facility] Comment on above: Performed By: #### L 100.0500, L500.2500, L501.9520 ####[facility] [address] [place], [address] RDW SD 41.5 fl Normal 35.1-43.9 [facility] Comment on above: Performed By: #### L 100.0500, L500.2500, L501.9520 ####[facility] [address] [place], [address] WBC (Bld) [#/Vol] 9.9 10*3/uL Normal 4.4-11.0 [facility] Comment on above: Performed By: #### L 100.0500, L500.2500, L501.9520 ####[facility] [address] [place], [address] Emergency Department Summary on 12-20-2024 Emergency Department Summary [facility] Medical Records Department [address] [place] [address] Emergency Department Summary 12/20/24 MR#: [id number] Acct: [id number] Name: CURLY COWART Jorge A Rep #: [id number] : 1985 39 From: Anam Garcia MD PCP: JUNE Jeronimo Status:REG ER Location: ED HPI History of Present Illness Chief Complaint: Dizziness Detail of Chief Complaint: Low heart rate Informant: patient Onset/Context/Timing Onset: Today Context: - (Alerted by [facility]) Timing: Intermittent Quality: Slow heart rate Location: Cardiovascular Current Severity: Patient was asymptomatic Maximum Severity: Moderate Worsened by: Patient states she is anxious and may have gotten herself all worked up bec Relieved by: Not applicable Associated Symptoms Associated Symptoms: Intermittent 1 second dizziness Narrative Narrative: Patient is a 39-year-old woman. BMI is 56.9. Patient underwent ablation by primary substance abuse counselor at [facility] 2019 for PSVT. Patient reports that she is under stress because her father and she is moving her mother in. She states she is getting herself worked up and this may be nothing more than anxiety. She is concerned because there is a family history cardiac disease and she is status post ablation for PSVT. Patient denies weight gain or weight loss. She has been fatigued. She does have a past history of Shahzad's disease. She states all my blood tests are always negative. She complains of weird headache. She localizes over the right left maxillary area. She does report mild congestion. There is no positional component. She denies double vision blurred vision loss of vision. She does have chronic ringing in her ears. She denies decreased hearing. She denies trouble with speech or swallowing. She denies paresthesia, anesthesia Medicus upper or lower extremity. Dizziness is defined as movement of the room for 1 second when she rises quickly. There is no history of GI bleed. She does have history of obstructive sleep apnea. Patient does not have oxygen at night or BiPAP slaps CPAP because her most recent sleep study was negative. 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 Liver disease IBS (irritable bowel syndrome) Back problem Arthritis Seasonal allergies Paroxysmal ventricular tachycardia Hypergammaglobulinemia , unspecified High serum fibrinogen PTSD (post-traumatic stress disorder) History of pulmonary embolism Anxiety Iron deficiency anemia Vitamin D deficiency Iezcv-8-klqkehsddmx deficiency GERD (gastroesophageal reflux disease) Ankylosing spondylitis Morbid obesity Home Medications ???Medication ???Instructions ???Recorded ???Last Taken ???Type aspirin 81 mg chewable tablet 81 mg PO DAILY@0800 06/28/19 Unkno wn History cholecalciferol (vitamin D3) 125 125 mcg PO QHS 12/20/24 12/19/24 H istory mcg (5,000 unit) tablet (Vitamin D3) magnesium 1 tab PO DAILY 12/20/24 12/20/24 H istory pantoprazole 40 mg tablet,delayed 40 mg PO DAILY 12/20/24 12/20/24 History release Allergy/AdvReac Type Severity Reaction Status Date / Time cholecalciferol (vitamin D3) Allergy Hives Verified 12/20/24 12:39 (From Vitamin D3) ergocalciferol (vitamin D2) Allergy Hives Verified 12/20/24 12:39 (From Vitamin D2) nadolol Allergy Hives Verified 12/20/24 12:39 Penicillins Allergy Hives Verified 12/20/24 12:39 bupropion (From Wellbutrin) AdvReac Itching Verified 12/20/24 12:39 hydrocodone bitartrate (From AdvReac Other Verified 12/20/24 12:39 Vicodin) morphine AdvReac Nausea Verified 12/20/24 12:39 Family History Father Kidney disease Liver disease Heart problem Thyroid disorder Autoimmune disease rheumatoid and alpha 1 antitrypsin Grandfather Heart problem paternal Grandmother Heart problem paternal Diabetes Uncle Heart problem Diabetes Mother Anxiety Hypertension Hyperlipidemia Other Arthritis Depression Heart disease Myocardial infarction Surgical History H/O wisdom tooth extraction H/O gastric sleeve History of radiofrequency ablation procedure for cardiac arrhythmia (09/25/18) History of tubal ligation History of tonsillectomy History of cholecystectomy History of History of liver biopsy History of left heart catheterization (09/18/18) Social History household members: significant other and family current occupational status: employed current occu (more content not included)... Normal [facility] Thyroid Stim Hormone (TSH)on 12-20-2024 TSH 3.010 uIU/mL Normal 0.300-4.200 [facility] Comment on above: Performed By: #### L 100.0500, L500.2500, L501.9520 ####[facility] [address] [place], [place], [id number] Benzodiazepine Conf URon BENZODIAZEPINE Negative Normal Bpchtr=006 [facility] Comment on above: Order Comment: UNK Performed By: #### L 506.0400, L3380.5600, L3380.9100, L100.0100, L500.4050, L500.4100, L501.5200, L501.98363, L501.9520, L503.0106, L503.6550, L506.1001, L503.6030 ####[facility] [address] [place], [place], [id number] Opiates, Ur Confirmon 2024 OPIATES,UR Negative Normal Ixjoxu=214 [facility] Comment on above: Order Comment: UNK Result Comment: Opia te test includes Codeine and Morphine only. Performed at: - [facility] [address] [place], [place] [id number] Oxygen Therapist: Cruz Lawler PhD, Phone: [phone] Performed By: #### L 506.0400, L3380.5600, L3380.9100, L100.0100, L500.4050, L500.4100, L501.5200, L501.00649, L501.9520, L503.0106, L503.6550, L506.1001, L503.6030 ####[facility] [address] [place], [place], [id number] T4 Free Directon 11-11-2024 T4 FREE DIRECT 1.10 ng/dL Normal 0.76-1.46 [facility] Comment on above: Performed By: #### L 506.0400, L3380.5600, L3380.9100, L100.0100, L500.4050, L500.4100, L501.5200, L501.01677, L501.9520, L503.0106, L503.6550, L506.1001, L503.6030 ####[facility] [address] [place], [place], [id number] CBC W/Diff, Automatedon 10-26 Absolute Lymph 1.92 X10 3/uL Normal 0.83-4.51 [facility] Comment on above: Performed By: #### L 506.0400, L3380.5600, L3380.9100, L100.0100, L500.4050, L500.4100, L501.5200, L501.94928, L501.9520, L503.0106, L503.6550, L506.1001, L503.6030 ####[facility] [address] [place], [place], [phone] Absolute Neut 5.5 X10 3/uL Normal 2.0-7.7 [facility] Comment on above: Performed By: #### L 506.0400, L3380.5600, L3380.9100, L100.0100, L500.4050, L500.4100, L501.5200, L501.06008, L501.9520, L503.0106, L503.6550, L506.1001, L503.6030 ####[facility] [address] [place], [place], [id number] Basophils/100 WBC (Bld) 0.4 % Normal 0-1 [facility] Comment on above: Performed By: #### L 506.0400, L3380.5600, L3380.9100, L100.0100, L500.4050, L500.4100, L501.5200, L501.25132, L501.9520, L503.0106, L503.6550, L506.1001, L503.6030 ####[facility] [address] [place], [address] Eosinophils/100 WBC (Bld) 1.8 % Normal 0-5 [facility] Comment on above: Performed By: #### L 506.0400, L3380.5600, L3380.9100, L100.0100, L500.4050, L500.4100, L501.5200, L501.53799, L501.9520, L503.0106, L503.6550, L506.1001, L503.6030 ####[facility] [address] [place], [phone] Erythrocyte distribution width (RBC) [Ratio] 13.4 % Normal 11.6-14.6 [facility] Comment on above: Performed By: #### L 506.0400, L3380.5600, L3380.9100, L100.0100, L500.4050, L500.4100, L501.5200, L501.14515, L501.9520, L503.0106, L503.6550, L506.1001, L503.6030 ####[facility] [address] [place], [address] Hematocrit (Bld) [Volume fraction] 43.6 % Normal 37-47 [facility] Comment on above: Performed By: #### L 506.0400, L3380.5600, L3380.9100, L100.0100, L500.4050, L500.4100, L501.5200, L501.03751, L501.9520, L503.0106, L503.6550, L506.1001, L503.6030 ####[facility] [address] [place], [phone] Hemoglobin (Bld) [Mass/Vol] 14.2 g/dL Normal 12.0-15.0 [facility] Comment on above: Performed By: #### L 506.0400, L3380.5600, L3380.9100, L100.0100, L500.4050, L500.4100, L501.5200, L501.56993, L501.9520, L503.0106, L503.6550, L506.1001, L503.6030 ####[facility] [address] [facility] [place], [address] IG% 0.500 Normal 0.0-0.9 [facility] Comment on above: Result Comment: IG% - Immature Granulocytes (promyelocytes, myelocytes and metamyelocytes) > 1% indicates that a LEFT SHIFT is Present. Performed By: #### L 506.0400, L3380.5600, L3380.9100, L100.0100, L500.4050, L500.4100, L501.5200, L501.44935, L501.9520, L503.0106, L503.6550, L506.1001, L503.6030 ####[facility] [address] [facility] [place], [address] Lymphocytes/100 WBC (Bld) 23.1 % Normal 19-41 [facility] Comment on above: Performed By: #### L 506.0400, L3380.5600, L3380.9100, L100.0100, L500.4050, L500.4100, L501.5200, L501.79121, L501.9520, L503.0106, L503.6550, L506.1001, L503.6030 ####[facility] [address] [place], [address] MCH (RBC) [Entitic mass] 27.7 pg Normal 27.0-32.0 [facility] Comment on above: Performed By: #### L 506.0400, L3380.5600, L3380.9100, L100.0100, L500.4050, L500.4100, L501.5200, L501.69933, L501.9520, L503.0106, L503.6550, L506.1001, L503.6030 ####[facility] [address] [place], [address] MCHC (RBC) [Mass/Vol] 32.6 g/dL Normal 32-36 [facility] Comment on above: Performed By: #### L 506.0400, L3380.5600, L3380.9100, L100.0100, L500.4050, L500.4100, L501.5200, L501.12678, L501.9520, L503.0106, L503.6550, L506.1001, L503.6030 ####[facility] [address] [place], [address] MCV (RBC) [Entitic vol] 85.0 fL Normal 81-99 [facility] Comment on above: Performed By: #### L 506.0400, L3380.5600, L3380.9100, L100.0100, L500.4050, L500.4100, L501.5200, L501.61479, L501.9520, L503.0106, L503.6550, L506.1001, L503.6030 ####[facility] [address] [place], [address] Monocytes/100 WBC (Bld) 8.6 % Normal 0-10 [facility] Comment on above: Performed By: #### L 506.0400, L3380.5600, L3380.9100, L100.0100, L500.4050, L500.4100, L501.5200, L501.83692, L501.9520, L503.0106, L503.6550, L506.1001, L503.6030 ####[facility] [address] [place], [address] Neutrophils/100 WBC (Bld) 65.6 % Normal 47-70 [facility] Comment on above: Performed By: #### L 506.0400, L3380.5600, L3380.9100, L100.0100, L500.4050, L500.4100, L501.5200, L501.26834, L501.9520, L503.0106, L503.6550, L506.1001, L503.6030 ####[facility] [address] [place], [address] Nucleated RBC (Bld) [#/Vol] 0 10*3/uL Normal 0-5 [facility] Comment on above: Performed By: #### L 506.0400, L3380.5600, L3380.9100, L100.0100, L500.4050, L500.4100, L501.5200, L501.24073, L501.9520, L503.0106, L503.6550, L506.1001, L503.6030 ####[facility] [address] [place], [address] Platelet mean volume (Bld) [Entitic vol] 12.0 fL Normal 6.2-12.0 [facility] Comment on above: Performed By: #### L 506.0400, L3380.5600, L3380.9100, L100.0100, L500.4050, L500.4100, L501.5200, L501.32568, L501.9520, L503.0106, L503.6550, L506.1001, L503.6030 ####[facility] [address] [place], [address] Platelets (Bld) [#/Vol] 143 10*3/uL Low 150-450 [facility] Comment on above: Performed By: #### L 506.0400, L3380.5600, L3380.9100, L100.0100, L500.4050, L500.4100, L501.5200, L501.89374, L501.9520, L503.0106, L503.6550, L506.1001, L503.6030 ####[facility] [address] [place], [place], [phone] RBC (Bld) [#/Vol] 5.13 10*6/uL Normal 4.2-5.4 [facility] Comment on above: Performed By: #### L 506.0400, L3380.5600, L3380.9100, L100.0100, L500.4050, L500.4100, L501.5200, L501.12755, L501.9520, L503.0106, L503.6550, L506.1001, L503.6030 ####[facility] [address] [place], [place], [phone](767) RDW SD 41.9 fl Normal 35.1-43.9 [facility] Comment on above: Performed By: #### L 506.0400, L3380.5600, L3380.9100, L100.0100, L500.4050, L500.4100, L501.5200, L501.63677, L501.9520, L503.0106, L503.6550, L506.1001, L503.6030 ####[facility] [address] [place], [place], [phone] WBC (Bld) [#/Vol] 8.3 10*3/uL Normal 4.4-11.0 [facility] Comment on above: Performed By: #### L 506.0400, L3380.5600, L3380.9100, L100.0100, L500.4050, L500.4100, L501.5200, L501.18248, L501.9520, L503.0106, L503.6550, L506.1001, L503.6030 ####[facility] [address] [place], [place], [phone] Comprehensive Metabolic Prof ilon 11-07-2024 Albumin [Mass/Vol] 4.0 g/dL Normal 3.5-5.0 [facility] Comment on above: Performed By: #### L 506.0400, L3380.5600, L3380.9100, L100.0100, L500.4050, L500.4100, L501.5200, L501.91828, L501.9520, L503.0106, L503.6550, L506.1001, L503.6030 ####[facility] [address] [place], [address] Albumin/Globulin [Mass ratio] 1.1 {ratio} Normal 0.9-2.4 [facility] Comment on above: Performed By: #### L 506.0400, L3380.5600, L3380.9100, L100.0100, L500.4050, L500.4100, L501.5200, L501.71245, L501.9520, L503.0106, L503.6550, L506.1001, L503.6030 ####[facility] [address] [place], [place], [phone] ALK PHOS 104 U/L Normal 35-104 [facility] Comment on above: Performed By: #### L 506.0400, L3380.5600, L3380.9100, L100.0100, L500.4050, L500.4100, L501.5200, L501.05267, L501.9520, L503.0106, L503.6550, L506.1001, L503.6030 ####[facility] [address] [place], [place], [phone] ALT [Catalytic activity/Vol] 60 U/L High <=34 [facility] Comment on above: Performed By: #### L 506.0400, L3380.5600, L3380.9100, L100.0100, L500.4050, L500.4100, L501.5200, L501.66556, L501.9520, L503.0106, L503.6550, L506.1001, L503.6030 ####[facility] [address] [place], [place], [phone] AST [Catalytic activity/Vol] 46 U/L High <=31 [facility] Comment on above: Performed By: #### L 506.0400, L3380.5600, L3380.9100, L100.0100, L500.4050, L500.4100, L501.5200, L501.49441, L501.9520, L503.0106, L503.6550, L506.1001, L503.6030 ####[facility] [address] [place], [address] Bilirubin [Mass/Vol] 0.42 mg/dL Normal 0.00-1.30 [facility] Comment on above: Performed By: #### L 506.0400, L3380.5600, L3380.9100, L100.0100, L500.4050, L500.4100, L501.5200, L501.42945, L501.9520, L503.0106, L503.6550, L506.1001, L503.6030 ####[facility] [address] [place], [place], [address] BUN/CRE 14.8 RATIO Normal 10-20 [facility] Comment on above: Performed By: #### L 506.0400, L3380.5600, L3380.9100, L100.0100, L500.4050, L500.4100, L501.5200, L501.59981, L501.9520, L503.0106, L503.6550, L506.1001, L503.6030 ####[facility] [address] [place], [address] Calcium [Mass/Vol] 9.6 mg/dL Normal 7.6-11.0 [facility] Comment on above: Performed By: #### L 506.0400, L3380.5600, L3380.9100, L100.0100, L500.4050, L500.4100, L501.5200, L501.71796, L501.9520, L503.0106, L503.6550, L506.1001, L503.6030 ####[facility] [address] [place], [place], [phone] Chloride [Moles/Vol] 104 mmol/L Normal 98-108 [facility] Comment on above: Performed By: #### L 506.0400, L3380.5600, L3380.9100, L100.0100, L500.4050, L500.4100, L501.5200, L501.08386, L501.9520, L503.0106, L503.6550, L506.1001, L503.6030 ####[facility] [address] [place], [place], [phone](535) CO2 [Moles/Vol] 25.2 mmol/L Normal 21.0-32.0 [facility] Comment on above: Performed By: #### L 506.0400, L3380.5600, L3380.9100, L100.0100, L500.4050, L500.4100, L501.5200, L501.88235, L501.9520, L503.0106, L503.6550, L506.1001, L503.6030 ####[facility] [address] [place], [address] Creatinine [Mass/Vol] 0.66 mg/dL Low 0.70-1.20 [facility] Comment on above: Performed By: #### L 506.0400, L3380.5600, L3380.9100, L100.0100, L500.4050, L500.4100, L501.5200, L501.16837, L501.9520, L503.0106, L503.6550, L506.1001, L503.6030 ####[facility] [address] [place], [place], [phone] GAP 10 Normal 5-15 [facility] Comment on above: Performed By: #### L 506.0400, L3380.5600, L3380.9100, L100.0100, L500.4050, L500.4100, L501.5200, L501.60186, L501.9520, L503.0106, L503.6550, L506.1001, L503.6030 ####[facility] [address] [place], [address] GFR/1.73 sq M.predicted among non-blacks MDRD (S/P/Bld) [Vol rate/Area] 113 mL/min/{1.73_m2} Normal >60 [facility] Comment on above: Result Comment: mL/m in/1.73m2 CKD-EPI Creatinine Equation (2020) Performed By: #### L 506.0400, L3380.5600, L3380.9100, L100.0100, L500.4050, L500.4100, L501.5200, L501.31511, L501.9520, L503.0106, L503.6550, L506.1001, L503.6030 ####[facility] [address] [place], [address] Globulin (S) [Mass/Vol] 3.5 g/dL Normal 2.2-4.2 [facility] Comment on above: Performed By: #### L 506.0400, L3380.5600, L3380.9100, L100.0100, L500.4050, L500.4100, L501.5200, L501.24105, L501.9520, L503.0106, L503.6550, L506.1001, L503.6030 ####[facility] [address] [place], [address] Glucose [Mass/Vol] 90 mg/dL Normal 70-99 [facility] Comment on above: Performed By: #### L 506.0400, L3380.5600, L3380.9100, L100.0100, L500.4050, L500.4100, L501.5200, L501.84984, L501.9520, L503.0106, L503.6550, L506.1001, L503.6030 ####[facility] [address] [place], [place], [phone] Potassium [Moles/Vol] 4.4 mmol/L Normal 3.3-5.1 [facility] Comment on above: Performed By: #### L 506.0400, L3380.5600, L3380.9100, L100.0100, L500.4050, L500.4100, L501.5200, L501.72260, L501.9520, L503.0106, L503.6550, L506.1001, L503.6030 ####[facility] [address] [place], [place], [address] Sodium [Moles/Vol] 140 mmol/L Normal 133-145 [facility] Comment on above: Performed By: #### L 506.0400, L3380.5600, L3380.9100, L100.0100, L500.4050, L500.4100, L501.5200, L501.21854, L501.9520, L503.0106, L503.6550, L506.1001, L503.6030 ####[facility] [address] [place], [place], [phone] T PROT 7.5 g/dL Normal 5.9-8.4 [facility] Comment on above: Performed By: #### L 506.0400, L3380.5600, L3380.9100, L100.0100, L500.4050, L500.4100, L501.5200, L501.90707, L501.9520, L503.0106, L503.6550, L506.1001, L503.6030 ####[facility] [address] [place], [place], [phone] Urea nitrogen [Mass/Vol] 10 mg/dL Normal 4-19 [facility] Comment on above: Performed By: #### L 506.0400, L3380.5600, L3380.9100, L100.0100, L500.4050, L500.4100, L501.5200, L501.93425, L501.9520, L503.0106, L503.6550, L506.1001, L503.6030 ####[facility] [address] [place], [address] Ferritinon 11-07-2024 Ferritin [Mass/Vol] 71 ng/mL Normal 22-378 [facility] Comment on above: Performed By: #### L 506.0400, L3380.5600, L3380.9100, L100.0100, L500.4050, L500.4100, L501.5200, L501.13916, L501.9520, L503.0106, L503.6550, L506.1001, L503.6030 ####[facility] [address] [place], [address] Free T3on 11-07-2024 Free T3 [Mass/Vol] 3.3 pg/mL Normal 2.18-3.98 [facility] Comment on above: Performed By: #### L 506.0400, L3380.5600, L3380.9100, L100.0100, L500.4050, L500.4100, L501.5200, L501.13783, L501.9520, L503.0106, L503.6550, L506.1001, L503.6030 ####[facility] [address] [place], [place], [address] Iron+Iron Binding Capacityon 11-07-2024 Iron [Mass/Vol] 77 ug/dL Normal 50-170 [facility] Comment on above: Performed By: #### L 506.0400, L3380.5600, L3380.9100, L100.0100, L500.4050, L500.4100, L501.5200, L501.02741, L501.9520, L503.0106, L503.6550, L506.1001, L503.6030 ####[facility] [address] [place], [place], [address] IRON SATURATION 25.0 Normal 13-59 [facility] Comment on above: Performed By: #### L 506.0400, L3380.5600, L3380.9100, L100.0100, L500.4050, L500.4100, L501.5200, L501.84105, L501.9520, L503.0106, L503.6550, L506.1001, L503.6030 ####[facility] [address] [place], [address] TIBC 308 ug/dL Normal 250-450 [facility] Comment on above: Performed By: #### L 506.0400, L3380.5600, L3380.9100, L100.0100, L500.4050, L500.4100, L501.5200, L501.80632, L501.9520, L503.0106, L503.6550, L506.1001, L503.6030 ####[facility] [address] [place], [address] UIBC 231 ug/dL Normal 228-428 [facility] Comment on above: Performed By: #### L 506.0400, L3380.5600, L3380.9100, L100.0100, L500.4050, L500.4100, L501.5200, L501.05889, L501.9520, L503.0106, L503.6550, L506.1001, L503.6030 ####[facility] [address] [place], [address] L503.0106on 11-07-2024 Cobalamin (Vitamin B12) [Mass/Vol] 813 pg/mL Normal 180-914 [facility] Comment on above: Performed By: #### L 506.0400, L3380.5600, L3380.9100, L100.0100, L500.4050, L500.4100, L501.5200, L501.08432, L501.9520, L503.0106, L503.6550, L506.1001, L503.6030 ####[facility] [address] [place], [address] L506.1001on 11-07-2024 Vitamin D 25-OH 24.6 ng/mL Low 30-100 [facility] Comment on above: Result Comment: Dyan min D Status Deficiency: <20 ng/mL (50nmol/L) Insufficiency: 20-30 ng/mL (50-75 nmol/L) Sufficiency: 30-100 ng/mL (75-250 nmol/L) Toxicity: >100 ng/mL (>250 nmol/L) Performed By: #### L 506.0400, L3380.5600, L3380.9100, L100.0100, L500.4050, L500.4100, L501.5200, L501.37619, L501.9520, L503.0106, L503.6550, L506.1001, L503.6030 ####[facility] [address] [place], [place], [address] Lipid Profileon 11-07-2024 CHOL:HDL 3.76 Normal [facility] Comment on above: Performed By: #### L 506.0400, L3380.5600, L3380.9100, L100.0100, L500.4050, L500.4100, L501.5200, L501.00009, L501.9520, L503.0106, L503.6550, L506.1001, L503.6030 ####[facility] [address] [place], [place], [phone] Cholesterol [Mass/Vol] 202 mg/dL High <=200 [facility] Comment on above: Result Comment: Chol esterol level, Desirable <200 mg/dL Borderline high cholesterol 200-239 mg/dL High cholesterol >=240 mg/dL Recommendations of the NCEP Adult Treatment Panel for the following risk-cutoff thresholds for the [place] population. Performed By: #### L 506.0400, L3380.5600, L3380.9100, L100.0100, L500.4050, L500.4100, L501.5200, L501.52363, L501.9520, L503.0106, L503.6550, L506.1001, L503.6030 ####[facility] [address] [place], [place], [id number] Cholesterol in HDL [Mass/Vol] 54 mg/dL Normal [facility] Comment on above: Result Comment: Reyna onal Cholesterol Education Program (NCEP) guidelines: <40 mg/dL: Low HDL-cholesterol (major risk factor for CHD) >= 60 mg/dL: High HDL-cholesterol (negative risk factor for CHD) HDL-cholesterol is affected by a number of factors, e.g. smoking, exercise, hormones, sex and age. Performed By: #### L 506.0400, L3380.5600, L3380.9100, L100.0100, L500.4050, L500.4100, L501.5200, L501.26679, L501.9520, L503.0106, L503.6550, L506.1001, L503.6030 ####[facility] [address] [place], [address] Cholesterol in LDL [Mass/Vol] 127 mg/dL Normal [facility] Comment on above: Result Comment: Bord otuhzx=172-901 mg/dL Higher Sorh=599 mg/dL or greater Performed By: #### L 506.0400, L3380.5600, L3380.9100, L100.0100, L500.4050, L500.4100, L501.5200, L501.45109, L501.9520, L503.0106, L503.6550, L506.1001, L503.6030 ####[facility] [address] [place], [address] Cholesterol in VLDL [Mass/Vol] 21 mg/dL Normal 5-40 [facility] Comment on above: Performed By: #### L 506.0400, L3380.5600, L3380.9100, L100.0100, L500.4050, L500.4100, L501.5200, L501.42133, L501.9520, L503.0106, L503.6550, L506.1001, L503.6030 ####[facility] [address] [place], [address] Triglyceride [Mass/Vol] 105 mg/dL Normal [facility] Comment on above: Result Comment: The drugs N-Acetylcysteine and Metamizole may falsely depress this assay. Normal range: <150 mg/dL Borderline High: 150-199 mg/dL High: 200-499 mg/dL Very High: >500 mg/dL Performed By: #### L 506.0400, L3380.5600, L3380.9100, L100.0100, L500.4050, L500.4100, L501.5200, L501.48265, L501.9520, L503.0106, L503.6550, L506.1001, L503.6030 ####[facility] [address] [place], [place], [address] Magnesiumon 11-07-2024 Magnesium [Mass/Vol] 1.9 mg/dL Normal 1.5-2.2 [facility] Comment on above: Performed By: #### L 506.0400, L3380.5600, L3380.9100, L100.0100, L500.4050, L500.4100, L501.5200, L501.20007, L501.9520, L503.0106, L503.6550, L506.1001, L503.6030 ####[facility] [address] [place], [place], [id number] Thyroid Stim Hormone (TSH)on 11-07-2024 TSH 2.910 uIU/mL Normal 0.300-4.200 [facility] Comment on above: Performed By: #### L 506.0400, L3380.5600, L3380.9100, L100.0100, L500.4050, L500.4100, L501.5200, L501.78494, L501.9520, L503.0106, L503.6550, L506.1001, L503.6030 ####[facility] [address] [place], [place], [address] MR/BMS.BPon 10-29-2024 MR/BMS.BP [address], [address] [place] [address] OFFICE VISIT Date of Service: 10/28/24 MR#: [id number] Acct: [id number] Name: CURLY COWART Rep #: [id number] : 1985 Provider: [facility] Sanam vazquez Age/Sex: 39/F Location: [facility] [place].BP Status: Signed Intake Vital Signs 09/04/24 08:27 10/23/24 05:48 10/29/24 09:55 Height 5 ft 5 in 5 ft 5 in 5 ft 5 in BP Intake Visit Reasons: Follow up Allergies cholecalciferol (vitamin D3) (From Vitamin D3) Allergy (Verified 10/23/24 05:49) Hives ergocalciferol (vitamin D2) (From Vitamin D2) Allergy (Verified 10/23/24 05:49) Hives nadolol Allergy (Verified 10/23/24 05:49) Hives Penicillins Allergy (Verified 10/23/24 05:49) Hives bupropion (From Wellbutrin) Adverse Reaction (Verified 10/23/24 05:49) Itching hydrocodone bitartrate (From Vicodin) Adverse Reaction (Verified 10/23/24 05:49) Other morphine Adverse Reaction (Verified 10/23/24 05:49) Nausea PFSH Medical History Palpitations BRISEYDA (obstructive sleep apnea) 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 Liver disease IBS (irritable bowel syndrome) Back problem Arthritis Seasonal allergies Paroxysmal ventricular tachycardia Hypergammaglobulinemia , unspecified High serum fibrinogen PTSD (post-traumatic stress disorder) History of pulmonary embolism Anxiety Iron deficiency anemia Vitamin D deficiency Lnbwc-6-camtxibuqwf deficiency GERD (gastroesophageal reflux disease) Ankylosing spondylitis Morbid obesity Surgical History H/O wisdom tooth extraction H/O gastric sleeve History of radiofrequency ablation procedure for cardiac arrhythmia (09/25/18) History of tubal ligation History of tonsillectomy History of cholecystectomy History of History of liver biopsy History of left heart catheterization (09/18/18) Family History (Updated 09/04/24 @ 08:[address] 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 She reported stressors related to interactions with maternal grandmother, maternal grandmother's health issues, and attempting to emotionally protect family members from maternal grandmothe's actions. Curly also identified stressors related to son's girlfriend residing in the home. Encouraged verbalization of emotions while providing support. Normalized emotions. Worked on feelings of guilt (related to moving out of grandmother's home due to grandmother's treatment of her) using CBT interventions. Assisted her in identifing reasons she moved out and consequences of living there. Also discussed consequences of son's girlfriend residing in the home and factors that prevent her from addressing her concerns. At times, Curly was tearful, particularly when discussing loss of father on her and other family members. No SI. Future-oriented. Exam Mental Status Exam - Psych Appearance casually dressed, adequately groomed and no apparent distress Attitude cooperative, calm and engaged Activity/Motor Behavior MSE activity/motor behavior finding no adventitious movements and appropriate eye contact Speech regular rate, regular volume and regular prosody Mood anxious Affect congruent Thought Process linear, logical and coherent Thought Content no delusions and no hallucinations Suicidal Ideation none Homicidal Ideation none Attention intact Concentration intact Sensorium/Orientation awake, alert and oriented x3 Memory/Cognition intact Insight good Judgement good Assessment Plan Assessment Plan (1) Anxiety: Plan: therapy using CBT, DBT, and ACT interventions to address thought patterns contributing to anxious symptoms and to teach coping skills. Psychiatric services to monitor anxious symptoms and medi (more content not included)... Normal [facility] Ankle min 3 Viewson 10-23-19 25 Ankle min 3 Views [facility] Imaging Services [facility] [address] [place], [place] [address] Ankle min 3 Views MR#: [id number] Acct: [id number] Name: CURLY COWART Rep #: [id number] : 1985 F 39 From: Mackenzie Oneal i, MD PCP: JUNE Jeronimo Status: REG ER Study: Ankle min 3 Views Date of Exam: 10/23/24 Exam# [id number] Ordering Dr: Garry Conn DO PROCEDURE: ANKLE MIN 3 VIEWS REASON FOR EXAM: Injury/pain TECHNIQUE: 3 views of the left ankle COMPARISON: None FINDINGS: There is moderate soft tissue swelling overlying the medial ankle/medial malleolar region. Tiny ossific densities are noted just posterior to the talus, best seen on the lateral view. Differential includes but not limited to accessory ossicles versus chondromatosis. No visible fracture. No suspicious bone lesion.. The ankle mortise is intact. RAD/Ankle min 3 Views IMPRESSION: No definite acute fracture. Tiny ossific densities are noted just posterior to the talus, best seen on the lateral view. Differential includes but not limited to accessory ossicles versus chondromatosis. If patient has pain does not improve over a period of time, may consider MRI. Reading Location: [id number] CC: Dr. Garry Conn DO; JUNE Jeronimo Access Specialist: Signed Normal [facility] Emergency Department Summary on 10-23-2024 Emergency Department Summary [facility] Medical Records Department [address] [place] [id number] Emergency Department Summary 10/23/24 MR#: [id number] Acct: [id number] Name: CURLY COWART Rep #: [id number] : 1985 39 From: Garry Conn DO PCP: JUNE Jeronimo Status:REG ER Location: ED HPI History of Present Illness HPI Narrative: Patient presents with pain to her left foot and ankle that began earlier this morning. Patient states it woke her up out of her sleep. Patient denies any trauma or injury. Patient states has been constant. Patient describes it as sharp, burning, and aching. Patient also states it feels like there is some throbbing after she has walked on it. Patient states her pain is worse with any weightbearing or ambulation. Patient denies any paresthesias. 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 Liver disease IBS (irritable bowel syndrome) Back problem Arthritis Seasonal allergies Paroxysmal ventricular tachycardia Hypergammaglobulinemia , unspecified High serum fibrinogen PTSD (post-traumatic stress disorder) History of pulmonary embolism Anxiety Iron deficiency anemia Vitamin D deficiency Hjhfd-0-cpjdwikspzl deficiency GERD (gastroesophageal reflux disease) Ankylosing spondylitis Morbid obesity Home Medications ???Medication ???Instructions ???Recorded ???Last Taken ???Type aspirin 81 mg chewable tablet 81 mg PO DAILY@0800 06/28/19 Unkno wn History pantoprazole 40 mg tablet,delayed 40 mg PO QDAY #90 tabs 09/11/24 U nknown Rx release Allergy/AdvReac Type Severity Reaction Status Date / Time cholecalciferol (vitamin D3) Allergy Hives Verified 10/23/24 05:49 (From Vitamin D3) ergocalciferol (vitamin D2) Allergy Hives Verified 10/23/24 05:49 (From Vitamin D2) nadolol Allergy Hives Verified 10/23/24 05:49 Penicillins Allergy Hives Verified 10/23/24 05:49 bupropion (From Wellbutrin) AdvReac Itching Verified 10/23/24 05:49 hydrocodone bitartrate (From AdvReac Other Verified 10/23/24 05:49 Vicodin) morphine AdvReac Nausea Verified 10/23/24 05:49 Family History (Updated 09/04/24 @ 08:[address] Lali Hu MD) Father Kidney disease Liver disease Heart problem Thyroid disorder Autoimmune disease rheumatoid and alpha 1 antitrypsin Grandfather Heart problem paternal Grandmother Heart problem paternal Diabetes Uncle Heart problem Diabetes Mother Anxiety Hypertension Hyperlipidemia Other Arthritis Depression Heart disease Myocardial infarction Surgical History H/O wisdom tooth extraction H/O gastric sleeve History of radiofrequency ablation procedure for cardiac arrhythmia (09/25/18) History of tubal ligation History of tonsillectomy History of cholecystectomy History of History of liver biopsy History of left heart catheterization (09/18/18) Social History household members: significant other and family current occupational status: employed 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 Smoking Status: Former smoker quit date: 08/28/18 pack-years: 8 how long ago did patient quit smoking: intermitent for years alcohol intake: never substance use type: does not use diet: ideal protein well-balanced diet: about half the time what type of physical activity do you participate in: walking seatbelt use: always do you feel safe at home: Yes ROS ROS ED Constitutional Constitutional ED: Denies chills or fever(s) Eyes Eyes: Denies blurry vision or change in vision ENT ENT ED: Denies rhinorrhea or sore throat Cardiovascular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 Sjogrens syndrome-B extractable nuclear Ab IA Qn (S) <0.2 Normal <1.0 [facility] Comment on above: Result Comment: < 1. 0 = NEGATIVE >=1.0 = POSITIVE Performed By: #### 4 537-7 #### DEJA DELATORRE ([id number]) [facility] ([facility]) [address] [place] [address] Gillis extractable nuclear Ab IA Qn (S) <0.2 Normal <1.0 [facility] Comment on above: Result Comment: < 1. 0 = NEGATIVE >=1.0 = POSITIVE Performed By: #### 4 537-7 #### DEJA DELATORRE ([id number]) [facility] ([facility]) [address] [place] [address] 54003 Gillis extractable nuclear Ab+Ribonucleoprotein extractable nuclear Ab IA Ql (S) <0.2 Normal <1.0 [facility] Comment on above: Result Comment: < 1. 0 = NEGATIVE >=1.0 = POSITIVE Performed By: #### 4 537-7 #### DEJA DELATORRE ([id number]) [facility] ([facility]) [address] [place] [address] 41861 Nuclear Abon 07-11-2024 Nuclear Ab Hep2 substrate Ql (S) Positive Abnormal Negative [facility] Comment on above: Result Comment: The Antinuclear Antibody (FERNANDO) test was performed using indirect immunofluorescence assay with HEp-2 cells slide. Performed By: #### 4 537-7 #### DEJA DELATORRE ([id number]) [facility] ([facility]) [address] [place] [address] 51180 Nuclear Ab Hep2 substrate Ql (S)on 07-11-2024 FERNANDO PATTERN Homogeneous Normal [facility] Comment on above: Performed By: #### 4 537-7 #### DEJA DELATORRE ([id number]) [facility] ([facility]) [address] [place] [address] 30405 Nuclear Ab IF (S) [Titer] 1:80 Normal [facility] Comment on above: Performed By: #### 4 537-7 #### DEJA DELATORRE ([id number]) [facility] ([facility]) [address] [place] [address] 78906 Rheumatoid Factoron 07-11-20 24 Rheumatoid factor Nephelometry Qn (S) [facility] Rheumatoid factoron 07-11-20 24 Rheumatoid factor Nephelometry Qn (S) <10 Normal 0-15 [facility] Comment on above: Performed By: #### 4 537-7 #### SHORT CELINAKAT ([id number]) [facility] ([facility]) [address] [place] [address] Rheumatoid factor Nephelomet ry Qn (S)on 07-11-2024 Interpretation and review of laboratory results [facility] XR CERVICAL SPINE 2-3 VIEWSo n 07-11-2024 XR CERVICAL SPINE 2-3 VIEWS Interpreted By: Priya Michel, STUDY: Cervical spine, 3 views. INDICATION: Signs/Symptoms:cervica lgia. COMPARISON: None. ACCESSION NUMBER(S): [id number] ORDERING CLINICIAN: VARGAS MUJICA FINDINGS: Mild grade 1 C3-4 and C4-5 as well as C5-6 anterolisthesis. Disc heights are maintained. Vertebral body heights are preserved. Posterior elements are intact. Prevertebral soft tissues are unremarkable. IMPRESSION: 1. Mild grade 1 C3-4 and C4-5 as well as C5-6 anterolisthesis 2. No significant degenerative changes otherwise. MACRO: None. Signed by: Priya Michel 07/14/2024 5:50 AM Dictation workstation: [id number] [facility] XR LUMBAR SPINE 2-3 VIEWSon 07-11-2024 XR LUMBAR SPINE 2-3 VIEWS Interpreted By: Priya Michel, STUDY: Lumbar spine, three views. INDICATION: Signs/Symptoms:low back pain. COMPARISON: None. ACCESSION NUMBER(S): [id number] ORDERING CLINICIAN: VARGAS MUJICA FINDINGS: Alignment is within normal limits. Disc heights are maintained. Mild L4-5 and L5-S1 facet joint arthropathy. Vertebral body heights are preserved. Posterior elements are intact. IMPRESSION: 1. Mild L4-5 and L5-S1 facet joint arthropathy. MACRO: None. Signed by: Priya Michel 07/14/2024 5:51 AM Dictation workstation: [id number] [facility] CNOVon 06-07-2024 CNOV Office Visit (UCWSTR ) CURLY COWART ([id number]) 1985 F Date Time Provider Department 06/07/24 5:00 PM [facility] During your visit today, we recorded the following information about you: Temperature Pulse Respiration Blood pressure 97.2 degrees 98/minute 16/minute 128/86 Weight 151.8 kg Chloé Tipton APRN.HOT WORKER 06/07/2024 4:54 PM Signed Patient presents with: Foot Trauma: LEFT foot AND lower leg x 3 days 3 days ago in the evening she dropped a table on her left foot. She was taking down a table and she dropped the table on her left lateral calf and left foot Area is black and blue. Foot is painful and when walking is applying more pressure to the inside of foot Is unable to wear compression socks due to pain in foot and calf The history is provided by the patient. Foot Trauma Review of Systems See above Physical Exam Vitals reviewed. Constitutional: Appearance: Normal appearance. HENT: Head: Normocephalic. Eyes: Extraocular Movements: Extraocular movements intact. Cardiovascular: Rate and Rhythm: Normal rate. Pulmonary: Effort: Pulmonary effort is normal. No respiratory distress. Musculoskeletal: Feet: Feet: Comments: Tenderness and swelling. Minimal bruising. Skin: Neurological: Mental Status: She is alert. ASSESSMENT/PLAN: 1. Foot pain, left - ICD9: 729.5, ICD10: M79.672 (primary diagnosis) - XR FOOT GENERAL 3V AP/LAT/OBL LEFT 2. Injury of left foot, initial encounter - ICD9: 959.7, ICD10: S99.922A - XR FOOT GENERAL 3V AP/LAT/OBL LEFT - XR per radiologist review shows no acute radiographic abnormality - Encouraged supportive care with tylenol, ibuprofen and ice - If no improvement in the next 1 week follow up or sooner if symptoms worsen - She verbalized understanding and agreement with this plan. Chloé Tipton APRN.CNP Allergies As of Date: 06/07/2024 Noted Allergy Reaction BUPROPION 06/02/2021 2 - Rash CITALOPRAM 06/02/2021 14 - Other: See Comments 11 - Vomiting DOXYCYCLINE 06/07/2024 4 - Hives HYDROCODONE-ACETAMINOP HEN 01/29/2016 4 - Hives 8 - GI Upset MECLIZINE 06/02/2021 14 - Other: See Comments MORPHINE 08/24/2016 14 - Other: See Comments Comments: Abdominal pain NADOLOL 11/13/2018 9 - Itching PENICILLINS 01/28/2008 4 - Hives PREDNISONE 09/22/2022 9 - Itching BUPROPION HCL 02/08/2023 2 - Rash Date Reviewed: 06/07/2024 Reviewed by: Laura Niño MA - Fully Assessed Reason for Visit: Foot Trauma [766] Cmt: LEFT foot AND lower leg x 3 days Primary Visit Diagnosis:Foot pain, left [M79.672] Other Visit Diagnosis:Injury of left foot, initial encounter [S99.922A] Order(s):XR FOOT GENERAL 3V AP/LAT/OBL LEFT [[id number]] Order #: [id number] FUTURE Prescriptions as of 06/07/2024 - venlafaxine ER (EFFEXOR XR) 75 mg 24 hr capsule Take 75 mg by mouth two times a day. - buPROPion SR (WELLBUTRIN SR) 150 mg 12 hr tablet PLEASE SEE ATTACHED FOR DETAILED DIRECTIONS - pantoprazole DR (PROTONIX) 40 mg tablet TAKE 1 TABLET BY MOUTH EVERY DAY - furosemide (LASIX) 20 mg tablet Take 20 mg by mouth once daily. - BIOTIN ORAL Take by mouth once daily. - multivit-min/iron/foli c acid/K (BARIATRIC MULTIVITAMINS ORAL) Take by mouth once daily. - CALCIUM CITRATE ORAL Take by mouth once daily. - Lactobac no.41/Bifidobact no.7 (PROBIOTIC-10 ORAL) Take by mouth. - LORazepam (ATIVAN) 0.5 mg Take 1 mg by mouth as needed. Problem List As Of Date 06/07/2024 Noted Resolved Nonspecific abnormal results of liver function *03/03/2008 04/09/2015 Morbid obesity (HCC) [E66.01] 04/09/2015 Steatohepatitis, non-alcoholic [K75.81] 04/09/2015 Depression [F32.A] 04/09/2015 Chronic low back pain [M54.50, G89.29] 04/09/2015 Sleep apnea [G47.30] 04/21/2015 Vitamin D deficiency [E55.9] 01/25/2016 Hypothyroidism [E03.9] 05/31/2016 Wide-complex tachycardia (HCC) [R00.0] 09/18/2018 Obesity, Class III, BMI >= 40 [E66.01] 09/19/2018 Bxuqd-8-eqjzpavprxv 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] 09/19/2018 Ankylosing spondylitis (HCC) [M45.9] 09/19/2018 Gastroesophageal reflux disease [K21.9] 09/19/2018 Inflammatory polyarthropathy (HCC) [M06.4] 07/09/2018 Sustained VT (ventricular tachycardia) (HCC) [I*09/20/2018 Ventricular tachycardia (HCC) [I47.20] 09/20/2018 Class 3 severe obesity in adult (HCC) [E66.813,*09/20/2018 BRISEYDA (obstructive sleep apnea) [G47.33] 09/20/2018 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 Normal [facility] XR FOOT 3V AP/LAT/OBL LTon 1 XR FOOT 3V AP/LAT/OBL LT * * *Final Report* * * DATE OF EXAM: Jun 07 2024 4:28PM WOX [id number] - XR FOOT 3V AP/LAT/OBL LT / PROCEDURE REASON: multiple diagnoses * * * * Physician Interpretation * * * * EXAMINATION: XR FOOT 3V AP/LAT/OBL LT CLINICAL HISTORY: Left foot pain Technique: XR FOOT 3V AP/LAT/OBL LT -- LEFT with 3 views on 3 images Comparison: None RESULT: No acute fracture or dislocation. Joint spaces are maintained. No periarticular erosions. IMPRESSION: No acute osseous abnormality Access Specialist: PSCB Transcribe Date/Time: Jun 07 2024 4:29P Dictated by : WINNIE DINERO MD This examination was interpreted and the report reviewed and electronically signed by: WINNIE DINERO MD on Jun 07 2024 4:32PM EST [id number] Normal [facility] XR Foot - left AP and Latera l and obliqueon 06-07-2024 IMPRESSION: No acute osseous abnormality Access Specialist: PSCB Transcribe Date/Time: Jun 07 2024 4:29P Dictated by : WINNIE DINERO MD This examination was interpreted and the report reviewed and electronically signed by: WINNIE DINERO MD on Jun 07 2024 4:32PM EST DIVISION OF RADIOLOGY * * *Final Report* * * DATE OF EXAM: Jun 07 2024 4:28PM WOX [id number] - XR FOOT 3V AP/LAT/OBL LT / PROCEDURE REASON: multiple diagnoses * * * * Physician Interpretation * * * * EXAMINATION: XR FOOT 3V AP/LAT/OBL LT CLINICAL HISTORY: Left foot pain Technique: XR FOOT 3V AP/LAT/OBL LT -- LEFT with 3 views on 3 images Comparison: None RESULT: No acute fracture or dislocation. Joint spaces are maintained. No periarticular erosions. DIVISION OF RADIOLOGY Provider, [facility] - 06/07/2024 * * *Final Report* * * DATE OF EXAM: Jun 07 2024 4:28PM WOX [id number] - XR FOOT 3V AP/LAT/OBL LT / PROCEDURE REASON: multiple diagnoses * * * * Physician Interpretation * * * * EXAMINATION: XR FOOT 3V AP/LAT/OBL LT CLINICAL HISTORY: Left foot pain Technique: XR FOOT 3V AP/LAT/OBL LT -- LEFT with 3 views on 3 images Comparison: None RESULT: No acute fracture or dislocation. Joint spaces are maintained. No periarticular erosions. IMPRESSION IMPRESSION: No acute osseous abnormality Access Specialist: PSCB Transcribe Date/Time: Jun 07 2024 4:29P Dictated by : WINNIE DINERO MD This examination was interpreted and the report reviewed and electronically signed by: WINNIE DINERO MD on Jun 07 2024 4:32PM EST [facility] Radiology Study observation (narrative) [facility] XR Foot - left AP and Latera l and obliqueOrdered By: Ccf Provider on 06-07-2024 [facility] Roldan 04-25-2024 CNPN Telephone (UCWSTR) CURLY COWART ([id number]) 1985 F Date Time Provider Department 04/25/24 DONNIE ROWLAND [facility] During your visit today, we recorded the following information about you: Allergies As of Date: 04/25/2024 Noted Allergy Reaction BUPROPION 06/02/2021 2 - Rash CITALOPRAM 06/02/2021 14 - Other: See Comments 11 - Vomiting HYDROCODONE-ACETAMINOP HEN 01/29/2016 4 - Hives 8 - GI Upset MECLIZINE 06/02/2021 14 - Other: See Comments MORPHINE 08/24/2016 14 - Other: See Comments Comments: Abdominal pain NADOLOL 11/13/2018 9 - Itching PENICILLINS 01/28/2008 4 - Hives PREDNISONE 09/22/2022 9 - Itching Date Reviewed: 04/24/2024 Reviewed by: Mariam Wren MA - Fully Assessed Prescriptions as of 04/25/2024 - venlafaxine ER (EFFEXOR XR) 75 mg 24 hr capsule Take 75 mg by mouth two times a day. - buPROPion SR (WELLBUTRIN SR) 150 mg 12 hr tablet PLEASE SEE ATTACHED FOR DETAILED DIRECTIONS - benzonatate (TESSALON PERLES) 100 mg capsule Take 1 capsule by mouth three times a day as needed for up to 7 days. - pantoprazole DR (PROTONIX) 40 mg tablet TAKE 1 TABLET BY MOUTH EVERY DAY - furosemide (LASIX) 20 mg tablet Take 20 mg by mouth once daily. - BIOTIN ORAL Take by mouth once daily. - multivit-min/iron/foli c acid/K (BARIATRIC MULTIVITAMINS ORAL) Take by mouth once daily. - CALCIUM CITRATE ORAL Take by mouth once daily. - Lactobac no.41/Bifidobact no.7 (PROBIOTIC-10 ORAL) Take by mouth. - LORazepam (ATIVAN) 0.5 mg Take 1 mg by mouth as needed. Problem List As Of Date 04/25/2024 Noted Resolved Nonspecific abnormal results of liver function *03/03/2008 04/09/2015 Morbid obesity (HCC) [E66.01] 04/09/2015 Steatohepatitis, non-alcoholic [K75.81] 04/09/2015 Depression [F32.A] 04/09/2015 Chronic low back pain [M54.50, G89.29] 04/09/2015 Sleep apnea [G47.30] 04/21/2015 Vitamin D deficiency [E55.9] 01/25/2016 Hypothyroidism [E03.9] 05/31/2016 Wide-complex tachycardia (HCC) [R00.0] 09/18/2018 Obesity, Class III, BMI >= 40 [E66.01] 09/19/2018 Xkdac-0-begsldvmirv 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] 09/19/2018 Ankylosing spondylitis (HCC) [M45.9] 09/19/2018 Gastroesophageal reflux disease [K21.9] 09/19/2018 Inflammatory polyarthropathy (HCC) [M06.4] 07/09/2018 Sustained VT (ventricular tachycardia) (HCC) [I*09/20/2018 Ventricular tachycardia (HCC) [I47.20] 09/20/2018 Class 3 severe obesity in adult (HCC) [E66.01] 09/20/2018 BRISEYDA (obstructive sleep apnea) [G47.33] 09/20/2018 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 [*09/20/2018 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] 12/04/2018 Bilateral leg edema [R60.0] 12/04/2018 Anticoagulation management encounter [Z51.81, Z*12/04/2018 Encounter for screening for cardiovascular diso*06/29/2020 Precordial pain [R07.2] 06/29/2020 Severe obesity (HCC) [E66.01] 04/11/2022 H/O cardiac radiofrequency ablation [Z98.890] 01/09/2023 Palpitations [R00.2] 01/09/2023 Encounter Status:Closed by DONNIE ROWLAND on 04/25/24 Normal [facility] CNOVon 04-24-2024 CNOV Office Visit (UCWSTR ) CURLY COWART ([id number]) 1985 F Date Time Provider Department 04/24/24 3:15 PM DELFIN JAIN [facility] During your visit today, we recorded the following information about you: Temperature Pulse Respiration Blood pressure 98.5 degrees 88/minute 20/minute 132/86 Weight 148.3 kg Delfin Jain APRN.HOT WORKER 04/24/2024 4:31 PM Signed CC: Patient presents with: Sinus Problem: Congestion, cough, sore throat, MCKINNEY x 3 days HPI: Curly Cowart is a 38 year old female who presents to the office with complaint of chest congestion, head congestion, cough, nonproductive, and sore throat for a few days. Symptoms are staying the same. Associated symptoms includes headache. Denies nausea, vomiting , and diarrhea. Treatments tried include nothing so far. with no relief of symptoms. Sick contacts: unknown. History of asthma, frequent episodes of bronchitis, chronic bronchitis, bronchiectasis or COPD: No Smoker: No Seasonal/environmental allergies: No The ROS is otherwise negative. The patient's pmh, medications, allergies, and past visits are reviewed. PHYSICAL EXAM: BP 132/86 Pulse 88 Temp 36.9 ?C (98.5 ?F) Resp 20 Wt (!) 148.3 kg (326 lb 15.1 oz) LMP 07/11/2016 SpO2 98% BMI 52.77 kg/m? General appearance: alert, cooperative, pleasant, in no acute distress Head: Normocephalic Eyes: EOM's intact, conjunctiva pink and moist, no icterus, sclera white, non-injected Ears: Right ear: External ear/canal- Normal, TM - clear with good landmarks. Left ear: External ear/canal- Normal, TM - clear with good landmarks Oropharynx:mild erythema, without exudates present Heart: Negative. RRR without obvious murmur, gallop, or rubs. No ectopy. 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 No date: Irritable bowel syndrome No date: Morbid obesity ([facility]) Comment: stated BMI 47.3 No date: BRISEYDA (obstructive sleep apnea) No date: Other chronic nonalcoholic liver disease No date: Personal history of tobacco use, presenting hazards to health Comment: 1/2 ppd x 5 years; quit 08/18/14 - restarted and quit in 07/2021: Pneumonia due to COVID-19 virus No date: Pulmonary embolism ([facility]) Comment: after PICC line No date: V-tach ([facility]) PAST SURGICAL HISTORY 2003: DELIVERY ONLY Comment: , low cervical 01/08/2008: CHOLECYSTECTOMY 04/2021: EGD 02/2021: EGD 04/11/2022: LAPAROSCOPIC GASTRECTOMY 2012: LAPAROSCOPIC UTERINE NERVE ABLATION 2008: LIVER BIOPSY 09/21/2018: MIDLINE CATHETER Comment: 2010: PAST SURGICAL HISTORY OF Comment: spring coils in fallopian tubes 2010: S B[place]OON,UTERINE ABLATION [id number] 2019: SHX CARDIAC RADIOFREQUENCY ABLATION Comment: ventricular 2004: TONSILLECTOMY PRIMARY/SECONDARY Comment: Tonsillectomy, wisdom teeth ALLERGIES Bupropion, Citalopram, Hydrocodone-Acetaminop hen, Meclizine, Morphine, Nadolol, Penicillins, and Prednisone MEDICATIONS venlafaxine ER (EFFEXOR XR) 75 mg 24 hr capsule Take 75 mg by mouth two times a day. buPROPion SR (WELLBUTRIN SR) 150 mg 12 hr tablet PLEASE SEE ATTACHED FOR DETAILED DIRECTIONS pantoprazole DR (PROTONIX) 40 mg tablet TAKE 1 TABLET BY MOUTH EVERY DAY furosemide (LASIX) 20 mg tablet Take 20 mg by mouth once daily. BIOTIN ORAL Take by mouth once daily. multivit-min/iron/foli c acid/K (BARIATRIC MULTIVITAMINS ORAL) Take by mouth once daily. CALCIUM CITRATE ORAL Take by mouth once daily. Lactobac no.41/Bifidobact no.7 (PROBIOTIC-10 ORAL) Take by mouth. LORazepam (ATIVAN) 0.5 mg Take 1 mg by mouth as needed. FAMILY HISTORY Problem Relation Age of Onset Anxiety disorder Mother panic attacks Heart Attack Father 54 Heart disease Father coronary stents other (liver disease) Father alpha 1 antitrypsin; has liver transplant other (atrial fibrillation) Father Thyroid Sister Hashimotos Anxiety disorder Sister other (atrial fibrillation) Paternal Grandmother Heart disease Paternal Grandfather heart transplant other (liver failure) Paternal Grandfather Anxiety disorder Sister other (atrial fibrillation) Paternal Uncle other (atrial fibrillation) Paternal Aunt Social History Tobacco Use Smoking status: Former Current packs/day: 0.00 Average packs/day: 0.5 packs/day for 10.0 years (5.0 ttl pk-yrs) Types: Cigarettes Start date: 2009 Quit date: 2019 Years since quittin.6 Smokeless tobacco: Never Tobacco comments: total quit 2017. currently 5 (more content not included)... Normal [facility] COVID AND INFLUENZA A/B AND RSV PCR, ROUTINEon 04-24-2024 SARS-CoV-2 (COVID-19) RNA ALISON+probe Ql (Unsp spec) SARS-COV-2 (AGENT OF COVID-19) RNA: Detected INFLUENZA A RNA: Not detected INFLUENZA B RNA: Not detected RESPIRATORY SYNCYTIAL VIRUS (RSV) RNA: Not detected Abnormal [facility] Comment on above: Performed By: #### C VFLRS #### [facility] CLIA [id number] [address] [place] [address] [place] XR CHEST 2V FRONTAL/LATon XR CHEST 2V FRONTAL/LAT * * *Final Report* * * DATE OF EXAM: Apr 24 2024 4:14PM WOX 5291 - XR CHEST 2V FRONTAL/LAT / PROCEDURE REASON: Acute cough * * * * Physician Interpretation * * * * EXAMINATION: CHEST RADIOGRAPH (2 VIEW FRONTAL and LATERAL) CLINICAL HISTORY: Acute cough MQ: XC2_6 EXAM DATE/TIME: 04/24/2024 4:14 PM COMPARISON: 09/22/2022 RESULT: Lines, tubes, and devices: None. Lungs and pleura: No consolidation. No lung mass. No pleural effusion. No pneumothorax. Cardiomediastinal silhouette: Normal cardiomediastinal silhouette. Bones and soft tissues: Unremarkable. IMPRESSION: No acute radiographic abnormality. Access Specialist: PSCB Transcribe Date/Time: Apr 24 2024 4:15P Dictated by : AMI DAVENPORT MD This examination was interpreted and the report reviewed and electronically signed by: AMI DAVENPORT MD on Apr 24 2024 4:19PM EST [id number] Normal [facility] XR Chest PA and Lateralon IMPRESSION: No acute radiographic abnormality. Access Specialist: PSCBest Before [employer] Transcribe Date/Time: Apr 24 2024 4:15P Dictated by : AMI DAVENPORT MD This examination was interpreted and the report reviewed and electronically signed by: AMI DAVENPORT MD on Apr 24 2024 4:19PM [facility] DIVISION OF RADIOLOGY * * *Final Report* * * DATE OF EXAM: Apr 24 2024 4:14PM WOX 5291 - XR CHEST 2V FRONTAL/LAT / PROCEDURE REASON: Acute cough * * * * Physician Interpretation * * * * EXAMINATION: CHEST RADIOGRAPH (2 VIEW FRONTAL & LATERAL) CLINICAL HISTORY: Acute cough MQ: XC2_6 EXAM DATE/TIME: 04/24/2024 4:14 PM COMPARISON: 09/22/2022 RESULT: Lines, tubes, and devices: None. Lungs and pleura: No consolidation. No lung mass. No pleural effusion. No pneumothorax. Cardiomediastinal silhouette: Normal cardiomediastinal silhouette. Bones and soft tissues: Unremarkable. DIVISION OF RADIOLOGY Provider, [facility] [place] - 04/24/2024 * * *Final Report* * * DATE OF EXAM: Apr 24 2024 4:14PM WOX 5291 - XR CHEST 2V FRONTAL/LAT / PROCEDURE REASON: Acute cough * * * * Physician Interpretation * * * * EXAMINATION: CHEST RADIOGRAPH (2 VIEW FRONTAL & LATERAL) CLINICAL HISTORY: Acute cough MQ: XC2_6 EXAM DATE/TIME: 04/24/2024 4:14 PM COMPARISON: 09/22/2022 RESULT: Lines, tubes, and devices: None. Lungs and pleura: No consolidation. No lung mass. No pleural effusion. No pneumothorax. Cardiomediastinal silhouette: Normal cardiomediastinal silhouette. Bones and soft tissues: Unremarkable. IMPRESSION IMPRESSION: No acute radiographic abnormality. Access Specialist: PSCB Transcribe Date/Time: Apr 24 2024 4:15P Dictated by : AMI DAVENPORT MD This examination was interpreted and the report reviewed and electronically signed by: AMI DAVENPORT MD on Apr 24 2024 4:19PM EST [facility] Radiology Study observation (narrative) [facility] XR Chest PA and LateralOrder ed By: [facility] Provider on 04-24-2024 [facility] Breast Limited Unilateralon 04-05-2024 Breast Limited Unilateral [facility] Imaging Services [address] [place] [id number] Breast Limited Unilateral MR#: [id number] Acct: [id number] Name: CURLY COWART Rep #: [id number] : 1985 F 38 From: Espinoza Knight MD PCP: JUNE Jeronimo Status: REG CLI Study: Breast Limited Unilateral Date of Exam: Exam# [id number] Ordering Dr: Vargas Mujica [id number] STUDY: ULTRASOUND BREAST - RIGHT REASON FOR EXAM: Female, 38 years old. Abnormal screening mammogram. TECHNIQUE: Axial and longitudinal images of the RIGHT breast were performed with a high resolution ultrasound transducer. # OF IMAGES: [id number] COMPARISON: Screening mammogram 03/29/2024 FINDINGS: RIGHT Breast: Heterogeneous background echotexture. At 10:00, 6 cm from nipple, ultrasound confirms a 6 mm oval parallel circumscribed hypoechoic mass with central increased echogenicity consistent with an intramammary lymph node corresponding to the mass seen on mammography.: US/Breast Limited Unilateral IMPRESSION: Ultrasound confirms a 6 mm intramammary lymph node corresponding to the mass seen on mammography. ASSESSMENT CATEGORY: BIRADS Category 2: Benign. A letter regarding these results will be sent to the patient by the facility within 30 days. Electronically Signed: Espinoza Knight MD at 20:32 EDT , CC: JUNE Jeronimo Access Specialist: Signed Normal [facility] SCRN MAMM (CAD)W/EJ BILATo n 03-29-2024 SCRN MAMM (CAD)W/EJ BILAT [facility] Imaging Services [address] [place] [address] [id number] SCRN MAMM (CAD)W/EJ BILAT MR#: [id number] Acct: [id number] Name: CURLY COWART Jorge A Rep #: [id number] : 1985 F 38 From: Gray cadena MD PCP: JUNE Jeronimo Status: REG [facility] Study: SCRN MAMM (CAD)W/EJ BILAT Date of Exam: 10/21 Exam# [id number] Ordering Dr: Vargas Mujica [id number] MAMMOGRAPHY - BILATERAL SCREENING REASON FOR EXAM: Female, 38 years old. Routine annual screening examination. PERTINENT HISTORY: Non-contributory. TECHNIQUE: Digital bilateral breast ej (3D mammographic acquisition) in the CC and MLO projections. 2-D mediolateral oblique (MLO) and craniocaudad (CC) views of both breasts were obtained. CAD: Full Field Digital Mammography with Computer Added Detection was performed. COMPARISON: None. Baseline examination. FINDINGS: Breast Composition: There are scattered areas of fibroglandular density. There is a 5 mm well-defined nodule in the slightly upper lateral aspect of the right breast. Correlation with ultrasound is recommended. No other significant abnormalities are identified. BI/SCRN MAMM (CAD)W/EJ BILAT IMPRESSION: 5 mm well-defined nodule in the slightly upper outer aspect in the right breast. Correlation with ultrasound is recommended. ASSESSMENT CATEGORY: BIRADS Category 0: Incomplete. Need additional imaging evaluation. A letter regarding these results will be sent to the patient by the facility within 30 days. Approximately 10% of breast cancers are not detected by mammography. A normal mammogram should not delay biopsy of a clinically suspicious abnormality. [id number] Electronically Signed: Gray Reyes MD at 8:25 EDT , CC: JUNE Jeronimo Access Specialist: Signed Normal [facility] Preblecellaneous Lab Procedureo n 03-18-2024 [facility] LAB TEST Normal [facility] Comment on above: Order Comment: #[id number] FREE CORTISOL RED/SER/FROZEN Result Comment: TEST RESULTS LIMITS Cortisol, Free Dialysis, LCMS 0.468 ug/dL These tests were developed and their performance characteristics determined by [facility]. They have not been cleared or approved by the Food and Drug Administration. Reference Range: 8 AM 0.10 - 1.20 4 PM 0.042 - 0.872 TESTING PERFORMED AT [employer]. ORIGINAL REPORT ON FILE IN LAB CONTAINS ADDITIONAL TEST SITE INFORMATION. AMENDED REPORT 03/18/242010 [facility] LAB TEST previously reported as: TEST RESULTS LIMITS Cortisol, Free Dialysis, LCMS 0.468 ug/dL These tests were developed and their performance characteristics determined by [facility]. They have not been cleared or approved by the Food and Drug Administration. Reference Range: 8 AM 0.10 - 1.20 4 PM 0.042 - 0.872 TESTING PERFORMED AT [facility] ORIGINAL REPORT ON FILE IN LAB CONTAINS ADDITIONAL TEST SITE INFORMATION. Performed By: #### L 503.6030, L503.6550, L506.0400, L101.9900, L503.0105, L506.1000, L801.1541, L100.0100, L501.9985, L500.4050, L500.4100, L501.5200, L501.6710, L501.9520 ####[facility] [address] [place], [place], [id number] Order Comment: #[id number] SALIVARY CORTISOL Result Comment: TEST RESULTS LIMITS Salivary Cortisol, MS 0.131 ug/dL This test was developed and its performance characteristics determined by [employer]. It has not been cleared or approved by the Food and Drug Administration. Reference Range: Children and Adults: 8:00a.m.: 0.025 - 0.600 Noon: <0.010 - 0.330 4:00p.m.: 0.010 - 0.200 Bedtime (9:00p.m.-Midnight): <0.010 - 0.090 TESTING PERFORMED AT [facility]. ORIGINAL REPORT ON FILE IN LAB CONTAINS ADDITIONAL TEST SITE INFORMATION. Performed By: #### L 801.1541 ####[facility] [address] [place], [place], [phone] Vitamin B12on 03-04-2024 Cobalamin (Vitamin B12) [Mass/Vol] 751 pg/mL Normal 211-911 [facility] Comment on above: Performed By: #### L 503.6030, L503.6550, L506.0400, L101.9900, L503.0105, L506.1000, L801.1541, L100.0100, L501.9985, L500.4050, L500.4100, L501.5200, L501.6710, L501.9520 ####[facility] [address] [place], [address] Vitamin D,25 Hydroxyon 03-04 Vitamin D 25-OH 31.9 ng/mL Normal [facility] Comment on above: Result Comment: Dyan min D 25(OH) Status Range Deficiency <20 ng/mL (50nmol/L) Insufficiency 20 - 30 ng/mL (50 - 75 nmol/L) Sufficiency 30 - 100 ng/mL (75 - 250 nmol/L) Toxicity >100 ng/mL (>250 nmol/L) Performed By: #### L 503.6030, L503.6550, L506.0400, L101.9900, L503.0105, L506.1000, L801.1541, L100.0100, L501.9985, L500.4050, L500.4100, L501.5200, L501.6710, L501.9520 ####[facility] [address] [place], [place], [phone] CBC W/Diff, Automatedon 07-0 6-2023 Absolute Lymph 1.89 X10 3/uL Normal 0.83-4.51 [facility] Comment on above: Performed By: #### L 503.6030, L503.6550, L506.0400, L101.9900, L503.0105, L506.1000, L801.1541, L100.0100, L501.9985, L500.4050, L500.4100, L501.5200, L501.6710, L501.9520 #### [facility] [address] [place], [place], [phone] Absolute Neut 5.5 X10 3/uL Normal 2.0-7.7 [facility] Comment on above: Performed By: #### L 503.6030, L503.6550, L506.0400, L101.9900, L503.0105, L506.1000, L801.1541, L100.0100, L501.9985, L500.4050, L500.4100, L501.5200, L501.6710, L501.9520 #### [facility] [address] [place], [place], [phone] (988) Basophils/100 WBC (Bld) 0.1 % Normal 0-1 [facility] Comment on above: Performed By: #### L 503.6030, L503.6550, L506.0400, L101.9900, L503.0105, L506.1000, L801.1541, L100.0100, L501.9985, L500.4050, L500.4100, L501.5200, L501.6710, L501.9520 #### [facility] [address] [place], [place], [phone] (133) Eosinophils/100 WBC (Bld) 1.2 % Normal 0-5 [facility] Comment on above: Performed By: #### L 503.6030, L503.6550, L506.0400, L101.9900, L503.0105, L506.1000, L801.1541, L100.0100, L501.9985, L500.4050, L500.4100, L501.5200, L501.6710, L501.9520 #### [facility] [address] [place], [place], [phone] (708) Erythrocyte distribution width (RBC) [Ratio] 13.6 % Normal 11.6-14.6 [facility] Comment on above: Performed By: #### L 503.6030, L503.6550, L506.0400, L101.9900, L503.0105, L506.1000, L801.1541, L100.0100, L501.9985, L500.4050, L500.4100, L501.5200, L501.6710, L501.9520 #### [facility] [address] [place], [place], [phone] (148) Hematocrit (Bld) [Volume fraction] 46.5 % Normal 37-47 [facility] Comment on above: Performed By: #### L 503.6030, L503.6550, L506.0400, L101.9900, L503.0105, L506.1000, L801.1541, L100.0100, L501.9985, L500.4050, L500.4100, L501.5200, L501.6710, L501.9520 #### [facility] [address] [place], [address] Hemoglobin (Bld) [Mass/Vol] 15.2 g/dL High 12.0-15.0 [facility] Comment on above: Performed By: #### L 503.6030, L503.6550, L506.0400, L101.9900, L503.0105, L506.1000, L801.1541, L100.0100, L501.9985, L500.4050, L500.4100, L501.5200, L501.6710, L501.9520 #### [facility] [address] [place], [address] IG% 0.200 Normal 0.0-0.9 [facility] Comment on above: Result Comment: IG% - Immature Granulocytes (promyelocytes, myelocytes and metamyelocytes) > 1% indicates that a LEFT SHIFT is Present. Performed By: #### L 503.6030, L503.6550, L506.0400, L101.9900, L503.0105, L506.1000, L801.1541, L100.0100, L501.9985, L500.4050, L500.4100, L501.5200, L501.6710, L501.9520 #### [facility] [address] [place], [address] Lymphocytes/100 WBC (Bld) 23.5 % Normal 19-41 [facility] Comment on above: Performed By: #### L 503.6030, L503.6550, L506.0400, L101.9900, L503.0105, L506.1000, L801.1541, L100.0100, L501.9985, L500.4050, L500.4100, L501.5200, L501.6710, L501.9520 #### [facility] [address] [place], [address] MCH (RBC) [Entitic mass] 28.6 pg Normal 27.0-32.0 [facility] Comment on above: Performed By: #### L 503.6030, L503.6550, L506.0400, L101.9900, L503.0105, L506.1000, L801.1541, L100.0100, L501.9985, L500.4050, L500.4100, L501.5200, L501.6710, L501.9520 #### [facility] [address] [place], [address] MCHC (RBC) [Mass/Vol] 32.7 g/dL Normal 32-36 [facility] Comment on above: Performed By: #### L 503.6030, L503.6550, L506.0400, L101.9900, L503.0105, L506.1000, L801.1541, L100.0100, L501.9985, L500.4050, L500.4100, L501.5200, L501.6710, L501.9520 #### [facility] [address] [place], [address] MCV (RBC) [Entitic vol] 87.4 fL Normal 81-99 [facility] Comment on above: Performed By: #### L 503.6030, L503.6550, L506.0400, L101.9900, L503.0105, L506.1000, L801.1541, L100.0100, L501.9985, L500.4050, L500.4100, L501.5200, L501.6710, L501.9520 #### [facility] [address] [place], [address] Monocytes/100 WBC (Bld) 6.7 % Normal 0-10 [facility] Comment on above: Performed By: #### L 503.6030, L503.6550, L506.0400, L101.9900, L503.0105, L506.1000, L801.1541, L100.0100, L501.9985, L500.4050, L500.4100, L501.5200, L501.6710, L501.9520 #### [facility] [address] [place], [address] Neutrophils/100 WBC (Bld) 68.3 % Normal 47-70 [facility] Comment on above: Performed By: #### L 503.6030, L503.6550, L506.0400, L101.9900, L503.0105, L506.1000, L801.1541, L100.0100, L501.9985, L500.4050, L500.4100, L501.5200, L501.6710, L501.9520 #### [facility] [address] [place], [place], [phone] (862) Nucleated RBC (Bld) [#/Vol] 0 10*3/uL Normal 0-5 [facility] Comment on above: Performed By: #### L 503.6030, L503.6550, L506.0400, L101.9900, L503.0105, L506.1000, L801.1541, L100.0100, L501.9985, L500.4050, L500.4100, L501.5200, L501.6710, L501.9520 #### [facility] [address] [place], [place], [phone] (849) Platelet mean volume (Bld) [Entitic vol] 11.3 fL Normal 6.2-12.0 [facility] Comment on above: Performed By: #### L 503.6030, L503.6550, L506.0400, L101.9900, L503.0105, L506.1000, L801.1541, L100.0100, L501.9985, L500.4050, L500.4100, L501.5200, L501.6710, L501.9520 #### [facility] [address] [place], [place], [phone] (254) Platelets (Bld) [#/Vol] 192 10*3/uL Normal 150-450 [facility] Comment on above: Performed By: #### L 503.6030, L503.6550, L506.0400, L101.9900, L503.0105, L506.1000, L801.1541, L100.0100, L501.9985, L500.4050, L500.4100, L501.5200, L501.6710, L501.9520 #### [facility] [place], [address] (092) RBC (Bld) [#/Vol] 5.32 10*6/uL Normal 4.2-5.4 [facility] Comment on above: Performed By: #### L 503.6030, L503.6550, L506.0400, L101.9900, L503.0105, L506.1000, L801.1541, L100.0100, L501.9985, L500.4050, L500.4100, L501.5200, L501.6710, L501.9520 #### [facility] [place], [place], [phone] RDW SD 43.0 fl Normal 35.1-43.9 [facility] Comment on above: Performed By: #### L 503.6030, L503.6550, L506.0400, L101.9900, L503.0105, L506.1000, L801.1541, L100.0100, L501.9985, L500.4050, L500.4100, L501.5200, L501.6710, L501.9520 #### [facility] [address] [place], [place], [phone] WBC (Bld) [#/Vol] 8.0 10*3/uL Normal 4.4-11.0 [facility] Comment on above: Performed By: #### L 503.6030, L503.6550, L506.0400, L101.9900, L503.0105, L506.1000, L801.1541, L100.0100, L501.9985, L500.4050, L500.4100, L501.5200, L501.6710, L501.9520 #### [facility] [address] [place], [place], [phone] CRPon 03-02-2024 C-REACTIVE PROT 4.92 mg/L High 0.0-3.0 [facility] Comment on above: Result Comment: C-Re active Protein (CRP) provides useful information for the diagnosis, therapy and monitoring of inflammatory processes and associated diseases. For the evaluation of Relative Risk for Cardiovascular Disease, a High Sensitivity CRP (HSCRP) should be ordered. Performed By: #### L 503.6030, L503.6550, L506.0400, L101.9900, L503.0105, L506.1000, L801.1541, L100.0100, L501.9985, L500.4050, L500.4100, L501.5200, L501.6710, L501.9520 #### [facility] [address] [facility] [address] [place], [place], [phone] Comprehensive Metabolic Prof ilon 03-02-2024 Albumin [Mass/Vol] 3.6 g/dL Normal 3.2-5.0 [facility] Comment on above: Performed By: #### L 503.6030, L503.6550, L506.0400, L101.9900, L503.0105, L506.1000, L801.1541, L100.0100, L501.9985, L500.4050, L500.4100, L501.5200, L501.6710, L501.9520 #### [facility] [address] [place], [address] Albumin/Globulin [Mass ratio] 0.8 {ratio} Low 0.9-2.4 [facility] Comment on above: Performed By: #### L 503.6030, L503.6550, L506.0400, L101.9900, L503.0105, L506.1000, L801.1541, L100.0100, L501.9985, L500.4050, L500.4100, L501.5200, L501.6710, L501.9520 #### [facility] [address] [place], [place], [phone] ALK P 117 U/L Normal 45-117 [facility] Comment on above: Performed By: #### L 503.6030, L503.6550, L506.0400, L101.9900, L503.0105, L506.1000, L801.1541, L100.0100, L501.9985, L500.4050, L500.4100, L501.5200, L501.6710, L501.9520 #### [facility] [address] [place], [place], [phone] ALT [Catalytic activity/Vol] 57 U/L High 13-56 [facility] Comment on above: Performed By: #### L 503.6030, L503.6550, L506.0400, L101.9900, L503.0105, L506.1000, L801.1541, L100.0100, L501.9985, L500.4050, L500.4100, L501.5200, L501.6710, L501.9520 #### [facility] [address] [place], [address] AST [Catalytic activity/Vol] 34 U/L Normal 15-37 [facility] Comment on above: Performed By: #### L 503.6030, L503.6550, L506.0400, L101.9900, L503.0105, L506.1000, L801.1541, L100.0100, L501.9985, L500.4050, L500.4100, L501.5200, L501.6710, L501.9520 #### [facility] [address] [place], [place], [phone] (117) Bilirubin [Mass/Vol] 0.40 mg/dL Normal 0.20-1.00 [facility] Comment on above: Result Comment: For patients on eltrombopag therapy, use of Dimension [place] TBIL is not recommended. Performed By: #### L 503.6030, L503.6550, L506.0400, L101.9900, L503.0105, L506.1000, L801.1541, L100.0100, L501.9985, L500.4050, L500.4100, L501.5200, L501.6710, L501.9520 #### [facility] [address] [place], [address] (579) BUN/CRE 19.0 RATIO Normal 10-20 [facility] Comment on above: Performed By: #### L 503.6030, L503.6550, L506.0400, L101.9900, L503.0105, L506.1000, L801.1541, L100.0100, L501.9985, L500.4050, L500.4100, L501.5200, L501.6710, L501.9520 #### [facility] [address] [place], [place], [phone] (953) CA,Total 9.1 mg/dL Normal 8.5-10.1 [facility] Comment on above: Performed By: #### L 503.6030, L503.6550, L506.0400, L101.9900, L503.0105, L506.1000, L801.1541, L100.0100, L501.9985, L500.4050, L500.4100, L501.5200, L501.6710, L501.9520 #### [facility] [address] [place], [place], [phone] Chloride [Moles/Vol] 107 mmol/L Normal 98-107 [facility] Comment on above: Performed By: #### L 503.6030, L503.6550, L506.0400, L101.9900, L503.0105, L506.1000, L801.1541, L100.0100, L501.9985, L500.4050, L500.4100, L501.5200, L501.6710, L501.9520 #### [facility] [address] [place], [address] CO2 [Moles/Vol] 28.0 mmol/L Normal 21.0-32.0 [facility] Comment on above: Performed By: #### L 503.6030, L503.6550, L506.0400, L101.9900, L503.0105, L506.1000, L801.1541, L100.0100, L501.9985, L500.4050, L500.4100, L501.5200, L501.6710, L501.9520 #### [facility] [address] [place], [place], [id number] Creatinine [Mass/Vol] 0.74 mg/dL Normal 0.55-1.02 [facility] Comment on above: Result Comment: The validity of the calculated GFR GFRAA in patients over 70 years has not been determined. Clinical correlation is essential. Performed By: #### L 503.6030, L503.6550, L506.0400, L101.9900, L503.0105, L506.1000, L801.1541, L100.0100, L501.9985, L500.4050, L500.4100, L501.5200, L501.6710, L501.9520 #### [facility] [address] [place], [place], [id number] EST GFR - AA 112 mL/min Normal >60 [facility] Comment on above: Result Comment: Afri can Australian GFR Calc Performed By: #### L 503.6030, L503.6550, L506.0400, L101.9900, L503.0105, L506.1000, L801.1541, L100.0100, L501.9985, L500.4050, L500.4100, L501.5200, L501.6710, L501.9520 #### [facility] [address] [place], [place], [id number] GAP 5 Normal 5-15 [facility] Comment on above: Performed By: #### L 503.6030, L503.6550, L506.0400, L101.9900, L503.0105, L506.1000, L801.1541, L100.0100, L501.9985, L500.4050, L500.4100, L501.5200, L501.6710, L501.9520 #### [facility] [address] [place], [place], [id number] GFR/1.73 sq M.predicted among non-blacks MDRD (S/P/Bld) [Vol rate/Area] 93 mL/min/{1.73_m2} Normal >60 [facility] Comment on above: Result Comment: Non- GFR Calc Performed By: #### L 503.6030, L503.6550, L506.0400, L101.9900, L503.0105, L506.1000, L801.1541, L100.0100, L501.9985, L500.4050, L500.4100, L501.5200, L501.6710, L501.9520 #### [facility] [address] [place], [address] Globulin (S) [Mass/Vol] 4.3 g/dL High 2.2-4.2 [facility] Comment on above: Performed By: #### L 503.6030, L503.6550, L506.0400, L101.9900, L503.0105, L506.1000, L801.1541, L100.0100, L501.9985, L500.4050, L500.4100, L501.5200, L501.6710, L501.9520 #### [facility] [address] [place], [place], [phone] ([phone]) Glucose [Mass/Vol] 104 mg/dL Normal 74-106 [facility] Comment on above: Result Comment: Fast ing Glucose result from 100 to 125 mg/dL suggests IMPAIRED HOMEOSTASIS per A.D.A. criteria. Performed By: #### L 503.6030, L503.6550, L506.0400, L101.9900, L503.0105, L506.1000, L801.1541, L100.0100, L501.9985, L500.4050, L500.4100, L501.5200, L501.6710, L501.9520 #### [facility] [address] [place], [place], [phone] ([phone]) Potassium [Moles/Vol] 4.4 mmol/L Normal 3.5-5.1 [facility] Comment on above: Performed By: #### L 503.6030, L503.6550, L506.0400, L101.9900, L503.0105, L506.1000, L801.1541, L100.0100, L501.9985, L500.4050, L500.4100, L501.5200, L501.6710, L501.9520 #### [facility] [address] [place], [place], [id number] ([phone]) Sodium [Moles/Vol] 140 mmol/L Normal 136-145 [facility] Comment on above: Performed By: #### L 503.6030, L503.6550, L506.0400, L101.9900, L503.0105, L506.1000, L801.1541, L100.0100, L501.9985, L500.4050, L500.4100, L501.5200, L501.6710, L501.9520 #### [facility] [address] [place], [place], [phone] T PROT 7.9 g/dL Normal 6.4-8.2 [facility] Comment on above: Performed By: #### L 503.6030, L503.6550, L506.0400, L101.9900, L503.0105, L506.1000, L801.1541, L100.0100, L501.9985, L500.4050, L500.4100, L501.5200, L501.6710, L501.9520 #### [facility] [address] [place], [address] Urea nitrogen [Mass/Vol] 14 mg/dL Normal 7-18 [facility] Comment on above: Performed By: #### L 503.6030, L503.6550, L506.0400, L101.9900, L503.0105, L506.1000, L801.1541, L100.0100, L501.9985, L500.4050, L500.4100, L501.5200, L501.6710, L501.9520 #### [facility] [address] [place], [address] Erythrocyte Sed Rateon 03-02 SED RATE 15 mm/hr Normal 0-30 [facility] Comment on above: Performed By: #### L 503.6030, L503.6550, L506.0400, L101.9900, L503.0105, L506.1000, L801.1541, L100.0100, L501.9985, L500.4050, L500.4100, L501.5200, L501.6710, L501.9520 ####[facility] [address] [place], [place], [phone] Ferritinon 03-02-2024 Ferritin [Mass/Vol] 75 ng/mL Normal 8-252 [facility] Comment on above: Performed By: #### L 503.6030, L503.6550, L506.0400, L101.9900, L503.0105, L506.1000, L801.1541, L100.0100, L501.9985, L500.4050, L500.4100, L501.5200, L501.6710, L501.9520 ####[facility] [address] [place], [address] Hemoglobin A1con 03-02-2024 HbA1c (Bld) [Mass fraction] 4.9 % Normal 3.8-5.6 [facility] Comment on above: Result Comment: Norm al < 5.7 % Prediabetic 5.7 - 6.4 % Diabetic >or= 6.5 % Please note range changes. Performed By: #### L 503.6030, L503.6550, L506.0400, L101.9900, L503.0105, L506.1000, L801.1541, L100.0100, L501.9985, L500.4050, L500.4100, L501.5200, L501.6710, L501.9520 #### [facility] [address] [place], [address] Iron+Iron Binding Capacityon 03-02-2024 Iron [Mass/Vol] 63 ug/dL Normal 50-170 [facility] Comment on above: Performed By: #### L 503.6030, L503.6550, L506.0400, L101.9900, L503.0105, L506.1000, L801.1541, L100.0100, L501.9985, L500.4050, L500.4100, L501.5200, L501.6710, L501.9520 ####[facility] [address] [place], [place], [phone] IRON SATURATION 20.3 Normal 15.0-55.0 [facility] Comment on above: Performed By: #### L 503.6030, L503.6550, L506.0400, L101.9900, L503.0105, L506.1000, L801.1541, L100.0100, L501.9985, L500.4050, L500.4100, L501.5200, L501.6710, L501.9520 ####[facility] [address] [place], [address] TIBC 310 ug/dL Normal 250-450 [facility] Comment on above: Performed By: #### L 503.6030, L503.6550, L506.0400, L101.9900, L503.0105, L506.1000, L801.1541, L100.0100, L501.9985, L500.4050, L500.4100, L501.5200, L501.6710, L501.9520 ####[facility] [address] [place], [place], [phone] Lipid Profileon 03-02-2024 Cholesterol [Mass/Vol] 218 mg/dL High 200 [facility] Comment on above: Result Comment: <200 mg/dL Desirable 200-240 mg/dL Borderline >240 mg/dL High Risk Performed By: #### L 503.6030, L503.6550, L506.0400, L101.9900, L503.0105, L506.1000, L801.1541, L100.0100, L501.9985, L500.4050, L500.4100, L501.5200, L501.6710, L501.9520 #### [facility] [address] [place], [address] Cholesterol in HDL [Mass/Vol] 61 mg/dL Normal [facility] Comment on above: Result Comment: The drugs N-Acetylcysteine and Metamizole may falsely depress this assay. Reference Range HDL <40 mg/dL Low HDL Cholesterol HDL >or= 60 mg/dL High HDL Cholesterol Performed By: #### L 503.6030, L503.6550, L506.0400, L101.9900, L503.0105, L506.1000, L801.1541, L100.0100, L501.9985, L500.4050, L500.4100, L501.5200, L501.6710, L501.9520 #### [facility] [address] [place], [place], [phone] ([phone] Cholesterol in LDL [Mass/Vol] 139 mg/dL High 0-130 [facility] Comment on above: Performed By: #### L 503.6030, L503.6550, L506.0400, L101.9900, L503.0105, L506.1000, L801.1541, L100.0100, L501.9985, L500.4050, L500.4100, L501.5200, L501.6710, L501.9520 #### [facility] [address] [place], [address] Cholesterol in VLDL [Mass/Vol] 18 mg/dL Normal 5-40 [facility] Comment on above: Performed By: #### L 503.6030, L503.6550, L506.0400, L101.9900, L503.0105, L506.1000, L801.1541, L100.0100, L501.9985, L500.4050, L500.4100, L501.5200, L501.6710, L501.9520 #### [facility] [address] [place], [address] Triglyceride [Mass/Vol] 88 mg/dL Normal [facility] Comment on above: Result Comment: The drugs N-Acetylcysteine and Metamizole may falsely depress this assay. Serum Triglycerides Reference Interval Normal <150 mg/dL Borderline high 150 - 199 mg/dL High 200 - 499 mg/dL Very High > or = 500 mg/dL Performed By: #### L 503.6030, L503.6550, L506.0400, L101.9900, L503.0105, L506.1000, L801.1541, L100.0100, L501.9985, L500.4050, L500.4100, L501.5200, L501.6710, L501.9520 #### [facility] [address] [place], [place], [phone] Magnesiumon 03-02-2024 Magnesium [Mass/Vol] 2.1 mg/dL Normal 1.6-2.6 [facility] Comment on above: Performed By: #### L 503.6030, L503.6550, L506.0400, L101.9900, L503.0105, L506.1000, L801.1541, L100.0100, L501.9985, L500.4050, L500.4100, L501.5200, L501.6710, L501.9520 #### [facility] [address] [place], [place], [id number] T4 Free Directon 03-02-2024 T4 FREE DIRECT 0.96 ng/dL Normal 0.76-1.46 [facility] Comment on above: Performed By: #### L 503.6030, L503.6550, L506.0400, L101.9900, L503.0105, L506.1000, L801.1541, L100.0100, L501.9985, L500.4050, L500.4100, L501.5200, L501.6710, L501.9520 ####[facility] [address] [place], [place], [address] Thyroid Stim Hormone (TSH)on 03-02-2024 TSH 1.60 uIU/mL Normal 0.358-3.74 [facility] Comment on above: Performed By: #### L 503.6030, L503.6550, L506.0400, L101.9900, L503.0105, L506.1000, L801.1541, L100.0100, L501.9985, L500.4050, L500.4100, L501.5200, L501.6710, L501.9520 ####[facility] [address] [place], [address] CONFIRMATION OPIATE/OPIOID/B SERGIO PRESCRIPTION COMPLIANCEon 02-28-2024 1-Hydroxymidazolam Confirm (U) [Mass/Vol] <25 Normal <25 [facility] Comment on above: Order Comment: Metho dology: Quantitative Liquid Chromatography - Tandem Mass Spectrometry Identification of specific drug(s) taken by specimen donor is problematic due to common metabolites, some of which are prescription drugs themselves. The absence of expected drug(s) and/or drug metabolite(s) may indicate ? non-compliance,inappropriate timing of specimen collection relative to drug administration, poor drug absorption, diluted/adulterated urine, or limitations of testing. All drug analytes covered are in the non-glucuronidated (free) forms. The concentration value must be greater than or equal to the cutoff to be reported as positive. Interpretive questions should be directed to the laboratory. The performance characteristics of this test has been validated by the individual laboratory site where testing is performed. It has not been cleared or approved by the FDA. However the FDA has determined that such clearance or approval is not necessary. [facility] is certified under the Clinical Laboratory Improvement Amendments of 1988(CLIA)as qualified to perform high complexity clinical laboratory testing. Performed By: #### D SBOPC #### RINA Archer ([id number]) [facility] ([facility]) [address] [place] [address] 8-Fevlxclxeh-9,5-Dime thyl-3,3-Diphenylpyrr olidine (EDDP) Confirm (U) [Mass/Vol] <25 Normal <25 [facility] Comment on above: Order Comment: Metho dology: Quantitative Liquid Chromatography - Tandem Mass Spectrometry Identification of specific drug(s) taken by specimen donor is problematic due to common metabolites, some of which are prescription drugs themselves. The absence of expected drug(s) and/or drug metabolite(s) may indicate ? non-compliance,inappropriate timing of specimen collection relative to drug administration, poor drug absorption, diluted/adulterated urine, or limitations of testing. All drug analytes covered are in the non-glucuronidated (free) forms. The concentration value must be greater than or equal to the cutoff to be reported as positive. Interpretive questions should be directed to the laboratory. The performance characteristics of this test has been validated by the individual laboratory site where testing is performed. It has not been cleared or approved by the FDA. However the FDA has determined that such clearance or approval is not necessary. [facility] is certified under the Clinical Laboratory Improvement Amendments of 1988(CLIA)as qualified to perform high complexity clinical laboratory testing. Performed By: #### [facility] #### RINA Archer ([id number]) [facility] ([facility]) [address] [place] [address] 6-Monoacetylmorphine (6-RAINE) Confirm (U) [Mass/Vol] <25 Normal <25 [facility] Comment on above: Order Comment: Metho dology: Quantitative Liquid Chromatography - Tandem Mass Spectrometry Identification of specific drug(s) taken by specimen donor is problematic due to common metabolites, some of which are prescription drugs themselves. The absence of expected drug(s) and/or drug metabolite(s) may indicate ? non-compliance,inappropriate timing of specimen collection relative to drug administration, poor drug absorption, diluted/adulterated urine, or limitations of testing. All drug analytes covered are in the non-glucuronidated (free) forms. The concentration value must be greater than or equal to the cutoff to be reported as positive. Interpretive questions should be directed to the laboratory. The performance characteristics of this test has been validated by the individual laboratory site where testing is performed. It has not been cleared or approved by the FDA. However the FDA has determined that such clearance or approval is not necessary. [facility] is certified under the Clinical Laboratory Improvement Amendments of 1988(CLIA)as qualified to perform high complexity clinical laboratory testing. Performed By: #### D OP #### RINA Archer ([id number]) [facility] ([facility]) [address] [place], [place] [id number] 7-Aminoclonazepam Confirm (U) [Mass/Vol] <25 Normal <25 [facility] Comment on above: Order Comment: Metho dology: Quantitative Liquid Chromatography - Tandem Mass Spectrometry Identification of specific drug(s) taken by specimen donor is problematic due to common metabolites, some of which are prescription drugs themselves. The absence of expected drug(s) and/or drug metabolite(s) may indicate ? non-compliance,inappropriate timing of specimen collection relative to drug administration, poor drug absorption, diluted/adulterated urine, or limitations of testing. All drug analytes covered are in the non-glucuronidated (free) forms. The concentration value must be greater than or equal to the cutoff to be reported as positive. Interpretive questions should be directed to the laboratory. The performance characteristics of this test has been validated by the individual laboratory site where testing is performed. It has not been cleared or approved by the FDA. However the FDA has determined that such clearance or approval is not necessary. [facility] is certified under the Clinical Laboratory Improvement Amendments of 1988(CLIA)as qualified to perform high complexity clinical laboratory testing. Performed By: #### [facility] #### RINA Archer ([id number]) [facility] ([facility]) [address] [place] [id number] Alpha hydroxyalprazolam Confirm (U) [Mass/Vol] <25 Normal <25 [facility] Comment on above: Order Comment: Metho dology: Quantitative Liquid Chromatography - Tandem Mass Spectrometry Identification of specific drug(s) taken by specimen donor is problematic due to common metabolites, some of which are prescription drugs themselves. The absence of expected drug(s) and/or drug metabolite(s) may indicate ? non-compliance,inappropriate timing of specimen collection relative to drug administration, poor drug absorption, diluted/adulterated urine, or limitations of testing. All drug analytes covered are in the non-glucuronidated (free) forms. The concentration value must be greater than or equal to the cutoff to be reported as positive. Interpretive questions should be directed to the laboratory. The performance characteristics of this test has been validated by the individual laboratory site where testing is performed. It has not been cleared or approved by the FDA. However the FDA has determined that such clearance or approval is not necessary. [facility] is certified under the Clinical Laboratory Improvement Amendments of 1988(CLIA)as qualified to perform high complexity clinical laboratory testing. Performed By: #### D [facility] #### RINA Archer ([id number]) [facility] ([facility]) [address] [place], [place] [id number] ALPRAZolam Confirm (U) [Mass/Vol] <25 Normal <25 [facility] Comment on above: Order Comment: Metho dology: Quantitative Liquid Chromatography - Tandem Mass Spectrometry Identification of specific drug(s) taken by specimen donor is problematic due to common metabolites, some of which are prescription drugs themselves. The absence of expected drug(s) and/or drug metabolite(s) may indicate ? non-compliance,inappropriate timing of specimen collection relative to drug administration, poor drug absorption, diluted/adulterated urine, or limitations of testing. All drug analytes covered are in the non-glucuronidated (free) forms. The concentration value must be greater than or equal to the cutoff to be reported as positive. Interpretive questions should be directed to the laboratory. The performance characteristics of this test has been validated by the individual laboratory site where testing is performed. It has not been cleared or approved by the FDA. However the FDA has determined that such clearance or approval is not necessary. [facility] is certified under the Clinical Laboratory Improvement Amendments of 1988(CLIA)as qualified to perform high complexity clinical laboratory testing. Performed By: #### D [facility] #### RINA Archer ([id number]) [facility] ([facility]) [address] [place] [phone] Confirm (U) [Mass/Vol] <25 Normal <25 [facility] Comment on above: Order Comment: Metho dology: Quantitative Liquid Chromatography - Tandem Mass Spectrometry Identification of specific drug(s) taken by specimen donor is problematic due to common metabolites, some of which are prescription drugs themselves. The absence of expected drug(s) and/or drug metabolite(s) may indicate ? non-compliance,inappropriate timing of specimen collection relative to drug administration, poor drug absorption, diluted/adulterated urine, or limitations of testing. All drug analytes covered are in the non-glucuronidated (free) forms. The concentration value must be greater than or equal to the cutoff to be reported as positive. Interpretive questions should be directed to the laboratory. The performance characteristics of this test has been validated by the individual laboratory site where testing is performed. It has not been cleared or approved by the FDA. However the FDA has determined that such clearance or approval is not necessary. [facility] is certified under the Clinical Laboratory Improvement Amendments of 1988(CLIA)as qualified to perform high complexity clinical laboratory testing. Performed By: #### D SB[facility] #### RINA Archer ([id number]) [facility] ([facility]) [address] [place] [id number] clonazePAM Confirm (U) [Mass/Vol] <25 Normal <25 [facility] Comment on above: Order Comment: Metho dology: Quantitative Liquid Chromatography - Tandem Mass Spectrometry Identification of specific drug(s) taken by specimen donor is problematic due to common metabolites, some of which are prescription drugs themselves. The absence of expected drug(s) and/or drug metabolite(s) may indicate ? non-compliance,inappropriate timing of specimen collection relative to drug administration, poor drug absorption, diluted/adulterated urine, or limitations of testing. All drug analytes covered are in the non-glucuronidated (free) forms. The concentration value must be greater than or equal to the cutoff to be reported as positive. Interpretive questions should be directed to the laboratory. The performance characteristics of this test has been validated by the individual laboratory site where testing is performed. It has not been cleared or approved by the FDA. However the FDA has determined that such clearance or approval is not necessary. [facility] is certified under the Clinical Laboratory Improvement Amendments of 1988(CLIA)as qualified to perform high complexity clinical laboratory testing. Performed By: #### D IBETH[facility] #### RINA Archer ([id number]) [facility] ([facility]) [address] [place] [id number] Codeine Confirm (U) [Mass/Vol] <50 Normal <50 [facility] Comment on above: Order Comment: Metho dology: Quantitative Liquid Chromatography - Tandem Mass Spectrometry Identification of specific drug(s) taken by specimen donor is problematic due to common metabolites, some of which are prescription drugs themselves. The absence of expected drug(s) and/or drug metabolite(s) may indicate ? non-compliance,inappropriate timing of specimen collection relative to drug administration, poor drug absorption, diluted/adulterated urine, or limitations of testing. All drug analytes covered are in the non-glucuronidated (free) forms. The concentration value must be greater than or equal to the cutoff to be reported as positive. Interpretive questions should be directed to the laboratory. The performance characteristics of this test has been validated by the individual laboratory site where testing is performed. It has not been cleared or approved by the FDA. However the FDA has determined that such clearance or approval is not necessary. [facility] is certified under the Clinical Laboratory Improvement Amendments of 1988(CLIA)as qualified to perform high complexity clinical laboratory testing. Performed By: #### [facility] #### RINA Archer ([id number]) [facility] ([facility]) [address] [place] [address] diazePAM Confirm (U) [Mass/Vol] <25 Normal <25 [facility] Comment on above: Order Comment: Metho dology: Quantitative Liquid Chromatography - Tandem Mass Spectrometry Identification of specific drug(s) taken by specimen donor is problematic due to common metabolites, some of which are prescription drugs themselves. The absence of expected drug(s) and/or drug metabolite(s) may indicate ? non-compliance,inappropriate timing of specimen collection relative to drug administration, poor drug absorption, diluted/adulterated urine, or limitations of testing. All drug analytes covered are in the non-glucuronidated (free) forms. The concentration value must be greater than or equal to the cutoff to be reported as positive. Interpretive questions should be directed to the laboratory. The performance characteristics of this test has been validated by the individual laboratory site where testing is performed. It has not been cleared or approved by the FDA. However the FDA has determined that such clearance or approval is not necessary. Our [facility] is certified under the Clinical Laboratory Improvement Amendments of 1988(CLIA)as qualified to perform high complexity clinical laboratory testing. Performed By: #### D IBETHOP[facility] #### RINA Archer ([id number]) [facility] ([facility]) [address] [place] [address] fentaNYL Confirm (U) [Mass/Vol] <2.5 Normal <2.5 [facility] Comment on above: Order Comment: Metho dology: Quantitative Liquid Chromatography - Tandem Mass Spectrometry Identification of specific drug(s) taken by specimen donor is problematic due to common metabolites, some of which are prescription drugs themselves. The absence of expected drug(s) and/or drug metabolite(s) may indicate ? non-compliance,inappropriate timing of specimen collection relative to drug administration, poor drug absorption, diluted/adulterated urine, or limitations of testing. All drug analytes covered are in the non-glucuronidated (free) forms. The concentration value must be greater than or equal to the cutoff to be reported as positive. Interpretive questions should be directed to the laboratory. The performance characteristics of this test has been validated by the individual laboratory site where testing is performed. It has not been cleared or approved by the FDA. However the FDA has determined that such clearance or approval is not necessary. Our [facility] is certified under the Clinical Laboratory Improvement Amendments of 1988(CLIA)as qualified to perform high complexity clinical laboratory testing. Performed By: #### [facility] #### RINA Archer ([id number]) [facility] ([facility]) [address] [place] [phone] HYDROcodone cutoff Confirm (U) [Mass/Vol] <25 Normal <25 [facility] Comment on above: Order Comment: Metho dology: Quantitative Liquid Chromatography - Tandem Mass Spectrometry Identification of specific drug(s) taken by specimen donor is problematic due to common metabolites, some of which are prescription drugs themselves. The absence of expected drug(s) and/or drug metabolite(s) may indicate ? non-compliance,inappropriate timing of specimen collection relative to drug administration, poor drug absorption, diluted/adulterated urine, or limitations of testing. All drug analytes covered are in the non-glucuronidated (free) forms. The concentration value must be greater than or equal to the cutoff to be reported as positive. Interpretive questions should be directed to the laboratory. The performance characteristics of this test has been validated by the individual laboratory site where testing is performed. It has not been cleared or approved by the FDA. However the FDA has determined that such clearance or approval is not necessary. Our Laboratory is certified under the Clinical Laboratory Improvement Amendments of 1988(CLIA)as qualified to perform high complexity clinical laboratory testing. Performed By: #### D SBOPC #### RINA Archer ([id number]) [facility] ([facility]) [address] [place], [place] [id number] HYDROmorphone Confirm (U) [Mass/Vol] <25 Normal <25 [facility] Comment on above: Order Comment: Metho dology: Quantitative Liquid Chromatography - Tandem Mass Spectrometry Identification of specific drug(s) taken by specimen donor is problematic due to common metabolites, some of which are prescription drugs themselves. The absence of expected drug(s) and/or drug metabolite(s) may indicate ? non-compliance,inappropriate timing of specimen collection relative to drug administration, poor drug absorption, diluted/adulterated urine, or limitations of testing. All drug analytes covered are in the non-glucuronidated (free) forms. The concentration value must be greater than or equal to the cutoff to be reported as positive. Interpretive questions should be directed to the laboratory. The performance characteristics of this test has been validated by the individual laboratory site where testing is performed. It has not been cleared or approved by the FDA. However the FDA has determined that such clearance or approval is not necessary. Our [facility] is certified under the Clinical Laboratory Improvement Amendments of 1988(CLIA)as qualified to perform high complexity clinical laboratory testing. Performed By: #### D SBOPC #### RINA Archer ([id number]) [facility] ([facility]) [address] [place] [id number] LORazepam Confirm (U) [Mass/Vol] 114 ng/mL High <25 [facility] Comment on above: Order Comment: Metho dology: Quantitative Liquid Chromatography - Tandem Mass Spectrometry Identification of specific drug(s) taken by specimen donor is problematic due to common metabolites, some of which are prescription drugs themselves. The absence of expected drug(s) and/or drug metabolite(s) may indicate ? non-compliance,inappropriate timing of specimen collection relative to drug administration, poor drug absorption, diluted/adulterated urine, or limitations of testing. All drug analytes covered are in the non-glucuronidated (free) forms. The concentration value must be greater than or equal to the cutoff to be reported as positive. Interpretive questions should be directed to the laboratory. The performance characteristics of this test has been validated by the individual laboratory site where testing is performed. It has not been cleared or approved by the FDA. However the FDA has determined that such clearance or approval is not necessary. Our [facility] is certified under the Clinical Laboratory Improvement Amendments of 1988(CLIA)as qualified to perform high complexity clinical laboratory testing. Result Comment: Cons istent with use of a drug containing lorazepam, such as Ativan. Performed By: #### D SBOPC #### RINA Archer ([id number]) [facility] ([facility]) [address] [place] [address] Methadone Confirm (U) [Mass/Vol] <25 Normal <25 [facility] Comment on above: Order Comment: Metho dology: Quantitative Liquid Chromatography - Tandem Mass Spectrometry Identification of specific drug(s) taken by specimen donor is problematic due to common metabolites, some of which are prescription drugs themselves. The absence of expected drug(s) and/or drug metabolite(s) may indicate ? non-compliance,inappropriate timing of specimen collection relative to drug administration, poor drug absorption, diluted/adulterated urine, or limitations of testing. All drug analytes covered are in the non-glucuronidated (free) forms. The concentration value must be greater than or equal to the cutoff to be reported as positive. Interpretive questions should be directed to the laboratory. The performance characteristics of this test has been validated by the individual laboratory site where testing is performed. It has not been cleared or approved by the FDA. However the FDA has determined that such clearance or approval is not necessary. Our [facility] is certified under the Clinical Laboratory Improvement Amendments of 1988(CLIA)as qualified to perform high complexity clinical laboratory testing. Performed By: #### D SBOPC #### RINA Archer ([id number]) [facility] ([facility]) [address] [place] [id number] Midazolam Confirm (U) [Mass/Vol] <25 Normal <25 [facility] Comment on above: Order Comment: Metho dology: Quantitative Liquid Chromatography - Tandem Mass Spectrometry Identification of specific drug(s) taken by specimen donor is problematic due to common metabolites, some of which are prescription drugs themselves. The absence of expected drug(s) and/or drug metabolite(s) may indicate ? non-compliance,inappropriate timing of specimen collection relative to drug administration, poor drug absorption, diluted/adulterated urine, or limitations of testing. All drug analytes covered are in the non-glucuronidated (free) forms. The concentration value must be greater than or equal to the cutoff to be reported as positive. Interpretive questions should be directed to the laboratory. The performance characteristics of this test has been validated by the individual laboratory site where testing is performed. It has not been cleared or approved by the FDA. However the FDA has determined that such clearance or approval is not necessary. Our [facility] is certified under the Clinical Laboratory Improvement Amendments of 1988(CLIA)as qualified to perform high complexity clinical laboratory testing. Performed By: #### D [facility] #### RINA Archer ([id number]) [facility] ([facility]) [address] [place] [address] Morphine Confirm (U) [Mass/Vol] <50 Normal <50 [facility] Comment on above: Order Comment: Metho dology: Quantitative Liquid Chromatography - Tandem Mass Spectrometry Identification of specific drug(s) taken by specimen donor is problematic due to common metabolites, some of which are prescription drugs themselves. The absence of expected drug(s) and/or drug metabolite(s) may indicate ? non-compliance,inappropriate timing of specimen collection relative to drug administration, poor drug absorption, diluted/adulterated urine, or limitations of testing. All drug analytes covered are in the non-glucuronidated (free) forms. The concentration value must be greater than or equal to the cutoff to be reported as positive. Interpretive questions should be directed to the laboratory. The performance characteristics of this test has been validated by the individual laboratory site where testing is performed. It has not been cleared or approved by the FDA. However the FDA has determined that such clearance or approval is not necessary. Our [facility] is certified under the Clinical Laboratory Improvement Amendments of 1988(CLIA)as qualified to perform high complexity clinical laboratory testing. Performed By: #### D SBOP #### RINA Archer ([id number]) [facility] ([facility]) [address] [place] [address] Nordiazepam Confirm (U) [Mass/Vol] <25 Normal <25 [facility] Comment on above: Order Comment: Metho dology: Quantitative Liquid Chromatography - Tandem Mass Spectrometry Identification of specific drug(s) taken by specimen donor is problematic due to common metabolites, some of which are prescription drugs themselves. The absence of expected drug(s) and/or drug metabolite(s) may indicate ? non-compliance,inappropriate timing of specimen collection relative to drug administration, poor drug absorption, diluted/adulterated urine, or limitations of testing. All drug analytes covered are in the non-glucuronidated (free) forms. The concentration value must be greater than or equal to the cutoff to be reported as positive. Interpretive questions should be directed to the laboratory. The performance characteristics of this test has been validated by the individual laboratory site where testing is performed. It has not been cleared or approved by the FDA. However the FDA has determined that such clearance or approval is not necessary. Our [facility] is certified under the Clinical Laboratory Improvement Amendments of 1988(CLIA)as qualified to perform high complexity clinical laboratory testing. Performed By: #### D SBOP #### RINA Archer ([id number]) [facility] ([facility]) [address] [place] [address] Norfentanyl Confirm (U) [Mass/Vol] <2.5 Normal <2.5 [facility] Comment on above: Order Comment: Metho dology: Quantitative Liquid Chromatography - Tandem Mass Spectrometry Identification of specific drug(s) taken by specimen donor is problematic due to common metabolites, some of which are prescription drugs themselves. The absence of expected drug(s) and/or drug metabolite(s) may indicate ? non-compliance,inappropriate timing of specimen collection relative to drug administration, poor drug absorption, diluted/adulterated urine, or limitations of testing. All drug analytes covered are in the non-glucuronidated (free) forms. The concentration value must be greater than or equal to the cutoff to be reported as positive. Interpretive questions should be directed to the laboratory. The performance characteristics of this test has been validated by the individual laboratory site where testing is performed. It has not been cleared or approved by the FDA. However the FDA has determined that such clearance or approval is not necessary. Our [facility] is certified under the Clinical Laboratory Improvement Amendments of 1988(CLIA)as qualified to perform high complexity clinical laboratory testing. Performed By: #### D IBETHOPC #### RINA Archer ([id number]) [facility] ([facility]) [address] [place] [id number] Norhydrocodone Confirm (U) [Mass/Vol] <25 Normal <25 [facility] Comment on above: Order Comment: Metho dology: Quantitative Liquid Chromatography - Tandem Mass Spectrometry Identification of specific drug(s) taken by specimen donor is problematic due to common metabolites, some of which are prescription drugs themselves. The absence of expected drug(s) and/or drug metabolite(s) may indicate ? non-compliance,inappropriate timing of specimen collection relative to drug administration, poor drug absorption, diluted/adulterated urine, or limitations of testing. All drug analytes covered are in the non-glucuronidated (free) forms. The concentration value must be greater than or equal to the cutoff to be reported as positive. Interpretive questions should be directed to the laboratory. The performance characteristics of this test has been validated by the individual laboratory site where testing is performed. It has not been cleared or approved by the FDA. However the FDA has determined that such clearance or approval is not necessary. Our [facility] is certified under the Clinical Laboratory Improvement Amendments of 1988(CLIA)as qualified to perform high complexity clinical laboratory testing. Performed By: #### D SBOP #### RINA Archer ([id number]) [facility] ([facility]) [address] [place] [phone] Noroxycodone Confirm (U) [Mass/Vol] <25 Normal <25 [facility] Comment on above: Order Comment: Metho dology: Quantitative Liquid Chromatography - Tandem Mass Spectrometry Identification of specific drug(s) taken by specimen donor is problematic due to common metabolites, some of which are prescription drugs themselves. The absence of expected drug(s) and/or drug metabolite(s) may indicate ? non-compliance,inappropriate timing of specimen collection relative to drug administration, poor drug absorption, diluted/adulterated urine, or limitations of testing. All drug analytes covered are in the non-glucuronidated (free) forms. The concentration value must be greater than or equal to the cutoff to be reported as positive. Interpretive questions should be directed to the laboratory. The performance characteristics of this test has been validated by the individual laboratory site where testing is performed. It has not been cleared or approved by the FDA. However the FDA has determined that such clearance or approval is not necessary. Our [facility] is certified under the Clinical Laboratory Improvement Amendments of 1988(CLIA)as qualified to perform high complexity clinical laboratory testing. Performed By: #### D SBOPC #### RINA Archer ([id number]) [facility] ([facility]) [address] [place] [phone] Nortramadol (U) [Mass/Vol] <50 Normal <50 [facility] Comment on above: Order Comment: Metho dology: Quantitative Liquid Chromatography - Tandem Mass Spectrometry Identification of specific drug(s) taken by specimen donor is problematic due to common metabolites, some of which are prescription drugs themselves. The absence of expected drug(s) and/or drug metabolite(s) may indicate ? non-compliance,inappropriate timing of specimen collection relative to drug administration, poor drug absorption, diluted/adulterated urine, or limitations of testing. All drug analytes covered are in the non-glucuronidated (free) forms. The concentration value must be greater than or equal to the cutoff to be reported as positive. Interpretive questions should be directed to the laboratory. The performance characteristics of this test has been validated by the individual laboratory site where testing is performed. It has not been cleared or approved by the FDA. However the FDA has determined that such clearance or approval is not necessary. Our [facility] is certified under the Clinical Laboratory Improvement Amendments of 1988(CLIA)as qualified to perform high complexity clinical laboratory testing. Performed By: #### D SBOPC #### RINA Archer ([id number]) [facility] ([facility]) [address] [place] [phone] Oxazepam Confirm (U) [Mass/Vol] <25 Normal <25 [facility] Comment on above: Order Comment: Metho dology: Quantitative Liquid Chromatography - Tandem Mass Spectrometry Identification of specific drug(s) taken by specimen donor is problematic due to common metabolites, some of which are prescription drugs themselves. The absence of expected drug(s) and/or drug metabolite(s) may indicate ? non-compliance,inappropriate timing of specimen collection relative to drug administration, poor drug absorption, diluted/adulterated urine, or limitations of testing. All drug analytes covered are in the non-glucuronidated (free) forms. The concentration value must be greater than or equal to the cutoff to be reported as positive. Interpretive questions should be directed to the laboratory. The performance characteristics of this test has been validated by the individual laboratory site where testing is performed. It has not been cleared or approved by the FDA. However the FDA has determined that such clearance or approval is not necessary. Our [facility] is certified under the Clinical Laboratory Improvement Amendments of 1988(CLIA)as qualified to perform high complexity clinical laboratory testing. Performed By: #### D SBOPC #### RINA Archer ([id number]) [facility] ([facility]) [address] [place] [address] oxyCODONE Confirm (U) [Mass/Vol] <25 Normal <25 [facility] Comment on above: Order Comment: Metho dology: Quantitative Liquid Chromatography - Tandem Mass Spectrometry Identification of specific drug(s) taken by specimen donor is problematic due to common metabolites, some of which are prescription drugs themselves. The absence of expected drug(s) and/or drug metabolite(s) may indicate ? non-compliance,inappropriate timing of specimen collection relative to drug administration, poor drug absorption, diluted/adulterated urine, or limitations of testing. All drug analytes covered are in the non-glucuronidated (free) forms. The concentration value must be greater than or equal to the cutoff to be reported as positive. Interpretive questions should be directed to the laboratory. The performance characteristics of this test has been validated by the individual laboratory site where testing is performed. It has not been cleared or approved by the FDA. However the FDA has determined that such clearance or approval is not necessary. Our [facility] is certified under the Clinical Laboratory Improvement Amendments of 1988(CLIA)as qualified to perform high complexity clinical laboratory testing. Performed By: #### D SBOPC #### RINA Archer ([id number]) [facility] ([facility]) [address] [place] [phone] oxyMORphone Confirm (U) [Mass/Vol] <25 Normal <25 [facility] Comment on above: Order Comment: Metho dology: Quantitative Liquid Chromatography - Tandem Mass Spectrometry Identification of specific drug(s) taken by specimen donor is problematic due to common metabolites, some of which are prescription drugs themselves. The absence of expected drug(s) and/or drug metabolite(s) may indicate ? non-compliance,inappropriate timing of specimen collection relative to drug administration, poor drug absorption, diluted/adulterated urine, or limitations of testing. All drug analytes covered are in the non-glucuronidated (free) forms. The concentration value must be greater than or equal to the cutoff to be reported as positive. Interpretive questions should be directed to the laboratory. The performance characteristics of this test has been validated by the individual laboratory site where testing is performed. It has not been cleared or approved by the FDA. However the FDA has determined that such clearance or approval is not necessary. Our [facility] is certified under the Clinical Laboratory Improvement Amendments of 1988(CLIA)as qualified to perform high complexity clinical laboratory testing. Performed By: #### D SBOP #### RINA Archer ([id number]) [facility] ([facility]) [address] [place] [phone] Temazepam Confirm (U) [Mass/Vol] <25 Normal <25 [facility] Comment on above: Order Comment: Metho dology: Quantitative Liquid Chromatography - Tandem Mass Spectrometry Identification of specific drug(s) taken by specimen donor is problematic due to common metabolites, some of which are prescription drugs themselves. The absence of expected drug(s) and/or drug metabolite(s) may indicate ? non-compliance,inappropriate timing of specimen collection relative to drug administration, poor drug absorption, diluted/adulterated urine, or limitations of testing. All drug analytes covered are in the non-glucuronidated (free) forms. The concentration value must be greater than or equal to the cutoff to be reported as positive. Interpretive questions should be directed to the laboratory. The performance characteristics of this test has been validated by the individual laboratory site where testing is performed. It has not been cleared or approved by the FDA. However the FDA has determined that such clearance or approval is not necessary. Our [facility] is certified under the Clinical Laboratory Improvement Amendments of 1988(CLIA)as qualified to perform high complexity clinical laboratory testing. Performed By: #### D SBOPC #### RINA Archer ([id number]) [facility] ([facility]) [address] [place] [id number] traMADol Confirm (U) [Mass/Vol] <50 Normal <50 [facility] Comment on above: Order Comment: Metho dology: Quantitative Liquid Chromatography - Tandem Mass Spectrometry Identification of specific drug(s) taken by specimen donor is problematic due to common metabolites, some of which are prescription drugs themselves. The absence of expected drug(s) and/or drug metabolite(s) may indicate ? non-compliance,inappropriate timing of specimen collection relative to drug administration, poor drug absorption, diluted/adulterated urine, or limitations of testing. All drug analytes covered are in the non-glucuronidated (free) forms. The concentration value must be greater than or equal to the cutoff to be reported as positive. Interpretive questions should be directed to the laboratory. The performance characteristics of this test has been validated by the individual laboratory site where testing is performed. It has not been cleared or approved by the FDA. However the FDA has determined that such clearance or approval is not necessary. Our [facility] is certified under the Clinical Laboratory Improvement Amendments of 1988(CLIA)as qualified to perform high complexity clinical laboratory testing. Performed By: #### D SBOP #### RINA Archer ([id number]) [facility] ([facility]) [address] [place] [id number] Zolpidem (U) [Mass/Vol] <25 Normal <25 [facility] Comment on above: Order Comment: Metho dology: Quantitative Liquid Chromatography - Tandem Mass Spectrometry Identification of specific drug(s) taken by specimen donor is problematic due to common metabolites, some of which are prescription drugs themselves. The absence of expected drug(s) and/or drug metabolite(s) may indicate ? non-compliance,inappropriate timing of specimen collection relative to drug administration, poor drug absorption, diluted/adulterated urine, or limitations of testing. All drug analytes covered are in the non-glucuronidated (free) forms. The concentration value must be greater than or equal to the cutoff to be reported as positive. Interpretive questions should be directed to the laboratory. The performance characteristics of this test has been validated by the individual laboratory site where testing is performed. It has not been cleared or approved by the FDA. However the FDA has determined that such clearance or approval is not necessary. Our [facility] is certified under the Clinical Laboratory Improvement Amendments of 1988(CLIA)as qualified to perform high complexity clinical laboratory testing. Performed By: #### D SBOPC #### RINA Archer ([id number]) [facility] ([facility]) [address] [place] [address] Zolpidem Confirm (U) [Mass/Vol] <25 Normal <25 [facility] Comment on above: Order Comment: Metho dology: Quantitative Liquid Chromatography - Tandem Mass Spectrometry Identification of specific drug(s) taken by specimen donor is problematic due to common metabolites, some of which are prescription drugs themselves. The absence of expected drug(s) and/or drug metabolite(s) may indicate ? non-compliance,inappropriate timing of specimen collection relative to drug administration, poor drug absorption, diluted/adulterated urine, or limitations of testing. All drug analytes covered are in the non-glucuronidated (free) forms. The concentration value must be greater than or equal to the cutoff to be reported as positive. Interpretive questions should be directed to the laboratory. The performance characteristics of this test has been validated by the individual laboratory site where testing is performed. It has not been cleared or approved by the FDA. However the FDA has determined that such clearance or approval is not necessary. Our Laboratory is certified under the Clinical Laboratory Improvement Amendments of 1988(CLIA)as qualified to perform high complexity clinical laboratory testing. Performed By: #### D SBOPC #### RINA Archer ([id number]) [facility] ([facility]) [address] [place], [place] [id number] SCREEN OPIATE/OPIOID/BENZO P RESCRIPTION COMPLIANCEon 02-28-2024 Amphetamines Screen Ql (U) Negative Normal Presumptive Negative [facility] Comment on above: Result Comment: CUTO FF LEVEL: 500 NG/ML Cross-reactivity has been reported with high concentrations of the following drugs: buproprion, chloroquine, chlorpromazine, ephedrine, mephentermine, fenfluramine, phentermine, phenylpropanolamine, pseudoephedrine, and propranolol. Performed By: #### D RBOP #### RINA Archer ([id number]) [facility] ([facility]) [address] [place] [address] Barbiturates Screen Ql (U) Negative Normal Presumptive Negative [facility] Comment on above: Result Comment: CUTO FF LEVEL: 200 NG/ML Performed By: #### D RBOP #### RINA BURNSMOMAGGIE L ([id number]) [facility] ([facility]) [address] [place] [address] Benzoylecgonine Screen Ql (U) Negative Normal Presumptive Negative [facility] Comment on above: Result Comment: CUTO FF LEVEL: 150 NG/ML Performed By: #### D RBOP #### RINA Archer ([id number]) [facility] ([facility]) [address] [place] [address] Cannabinoids Screen Ql (U) Negative Normal Presumptive Negative [facility] Comment on above: Result Comment: CUTO FF LEVEL: 50 NG/ML Performed By: #### D RBOP #### RINA Archer ([id number]) [facility] ([facility]) [address] [place] [address] Creatinine (U) [Mass/Vol] 42.8 mg/dL Normal 20.0-320.0 [facility] Comment on above: Result Comment: A ur ine creatinine result >= 20 mg/dL is considered valid without suspicion of dilution. Samples with results below this range will automatically reflex to specific gravity testing to verify specimen integrity. Performed By: #### D RBOP #### RINA BURNSMOMAGGIE L ([id number]) [facility] ([facility]) [address] [place], [place] [id number] Phencyclidine Ql (U) Negative Normal Presump tive Negative [facility] Comment on above: Result Comment: CUTO FF LEVEL: 25 NG/ML Cross-reactivity has been reported with dextromethorphan. Performed By: #### D RBOP #### RINA Archer ([id number]) [facility] ([facility]) [address] [place] [address] Absolute lymphocyte countOrd ered By: Garry Conn on 10-19-2023 Lymphocytes Auto (Unsp spec) [#/Vol] 1.70 10*3/uL 0.83-4.51 [facility] Automated lymphocyte count a s percentage of total leukocytesOrdered By: Garry Conn on 10-19-2023 Lymphocytes/100 WBC Auto (Unsp spec) 25.5 % 19-41 [facility] Basophil percentageOrdered B y: Garry Conn on 10-19-2023 Basophils/100 WBC (Bld) 0.4 % 0-1 [facility] Chloride [Moles/Vol] 110 mmol/L 98-107 [facility] Eosinophils/100 WBC (Bld) 1.6 % 0-5 [facility] Glucose [Mass/Vol] 97 mg/dL 74-106 [facility] Hemoglobin (Bld) [Mass/Vol] 14.0 g/dL 12.0-15.0 [facility] Monocytes/100 WBC (Bld) 12.4 % 0-10 [facility] Neutrophils (Bld) [#/Vol] 4.0 10*3/uL 2.0-7.7 [facility] Neutrophils/100 WBC (Bld) 59.7 % 47-70 [facility] Potassium [Moles/Vol] 3.9 mmol/L 3.5-5.1 [facility] Sodium [Moles/Vol] 139 mmol/L 136-145 [facility] WBC (Bld) [#/Vol] 6.7 10*3/uL 4.4-11.0 [facility] Determination of erythrocyte mean corpuscular volume (MCV)Ordered By: Garry Conn on 10-19-2023 MCV (RBC) [Entitic vol] 86.5 fL 81-99 [facility] Erythrocyte distribution wid th ratioOrdered By: Garry Conn on 10-19-2023 Erythrocyte distribution width (RBC) [Ratio] 13.6 % 11.6-14.6 [facility] Erythrocyte distribution wid th standard deviationOrdered By: Garry Conn on 10-19-2023 Erythrocyte distribution width (RBC) [Entitic vol] 42.6 fL 35.1-43.9 [facility] Erythrocyte sedimentation ra teOrdered By: Garry Conn on 10-19-2023 ESR (Bld) [Velocity] 26 mm/h 0-30 [facility] Hematocrit Auto (Bld) [Volum e fraction]Ordered By: Garry Conn on 10-19-2023 Hematocrit (Bld) [Volume fraction] 42.9 % 37-47 [facility] Immature granulocytes/100 WB C Auto (Bld)Ordered By: Garry Conn on 10-19-2023 Immature granulocytes/100 WBC (Bld) 0.400 % 0.0-0.9 [facility] Comment on above: IG% - Immature Granu locytes (promyelocytes, myelocytes and metamyelocytes) > 1% indicates that a LEFT SHIFT is Present. Laboratory - Chemistry and C hemistry - challengeOrdered By: Garry Conn on 10-19-2023 CO2 [Moles/Vol] 26.0 mmol/L 21.0-32.0 [facility] Urea nitrogen/Creatinine [Mass ratio] 21.9 mg/mg 10-20 [facility] Laboratory - Hematology and Cell countsOrdered By: Garry Conn on 10-19-2023 MCH (RBC) [Entitic mass] 28.2 pg 27.0-32.0 [facility] MCHC (RBC) [Mass/Vol] 32.6 g/dL 32-36 [facility] Nucleated RBC/100 WBC (Bld) [Ratio] 0 % 0-5 [facility] Platelet mean volume (Bld) [Entitic vol] 11.6 fL 6.2-12.0 [facility] Platelets (Bld) [#/Vol] 173 10*3/uL 150-450 [facility] No Panel InformationOrdered By: Garry Conn on 10-19-2023 Estimated Creatinine Clearance Calc 166.54 ml/min [facility] Estimated GFR (MDRD) Amer 132 mL/min >60 [facility] Comment on above: GFR Calc Estimated GFR (MDRD) Non-Af Amer 109 mL/min >60 [facility] Comment on above: Non- GFR Calc RBC Auto (Bld) [#/Vol]Ordere d By: Garry Conn on 10-19-2023 RBC (Bld) [#/Vol] 4.96 10*6/uL 4.2-5.4 [facility] Serum or plasma calcium jimenez urement (mass/volume)Ordered By: Garry Conn on 10-19-2023 Calcium [Mass/Vol] 9.3 mg/dL 8.5-10.1 [facility] Serum or plasma creatinine m easurement (mass/volume)Ordered By: Garry Conn on 10-19-2023 Creatinine [Mass/Vol] 0.64 mg/dL 0.55-1.02 [facility] Comment on above: The validity of the calculated GFR & GFRAA in patients over 70 years has not been determined. Clinical correlation is essential. Serum or plasma urea nitroge n measurement (mass/volume)Ordered By: Garry Conn on 10-19-2023 Urea nitrogen [Mass/Vol] 14 mg/dL 7-18 [facility] Thin prep Papanicolaou smear with manual screeningOrdered By: Garry Conn on 10-19-2023 Thin prep Papanicolaou smear with manual screening 3 5-15 [facility] Basophil percentageOrdered B y: Aanm Garcia on 10-03-2023 Chloride [Moles/Vol] 104 mmol/L 98-107 [facility] Glucose [Mass/Vol] 88 mg/dL 74-106 [facility] Hemoglobin (Bld) [Mass/Vol] 14.9 g/dL 12.0-15.0 [facility] Potassium [Moles/Vol] 3.7 mmol/L 3.5-5.1 [facility] Sodium [Moles/Vol] 135 mmol/L 136-145 [facility] WBC (Bld) [#/Vol] 10.3 10*3/uL 4.4-11.0 [facility] Determination of erythrocyte mean corpuscular volume (MCV)Ordered By: Anam Garcia on 10-03-2023 MCV (RBC) [Entitic vol] 86.3 fL 81-99 [facility] Erythrocyte distribution wid th ratioOrdered By: Anam Garcia on 10-03-2023 Erythrocyte distribution width (RBC) [Ratio] 13.2 % 11.6-14.6 [facility] Erythrocyte distribution wid th standard deviationOrdered By: Anamcarlos Garcia on 10-03-2023 Erythrocyte distribution width (RBC) [Entitic vol] 41.5 fL 35.1-43.9 [facility] Hematocrit Auto (Bld) [Volum e fraction]Ordered By: Anam Garcia on 10-03-2023 Hematocrit (Bld) [Volume fraction] 44.9 % 37-47 [facility] Laboratory - Chemistry and C hemistry - challengeOrdered By: Anamcarlos Garcia on 10-03-2023 CO2 [Moles/Vol] 29.0 mmol/L 21.0-32.0 [facility] Urea nitrogen/Creatinine [Mass ratio] 19.3 mg/mg 10-20 [facility] - Hematology and Cell countsOrdered By: Anamcarlos Garcia on 10-03-2023 MCH (RBC) [Entitic mass] 28.7 pg 27.0-32.0 [facility] MCHC (RBC) [Mass/Vol] 33.2 g/dL 32-36 [facility] Platelet mean volume (Bld) [Entitic vol] 11.2 fL 6.2-12.0 [facility] Platelets (Bld) [#/Vol] 185 10*3/uL 150-450 [facility] No Panel InformationOrdered By: Anam Garcia on 10-03-2023 Troponin I High Sensitivity 6 pg/mL 3.0-54.0 [facility] Comment on above: Please Note: New Uri t Units and Gender Specific Reference Ranges. For more information see Policy Stat Procedure [employer] High Sensitivity Troponin (TNIH) and attachments. Estimated Creatinine Clearance Calc 158.86 ml/min [facility] Estimated GFR (MDRD) Amer 125 mL/min >60 [facility] Comment on above: GFR Calc Estimated GFR (MDRD) Non-Af Amer 103 mL/min >60 [facility] Comment on above: Non- GFR Calc RBC Auto (Bld) [#/Vol]Ordere d By: Anam Garcia on 10-03-2023 RBC (Bld) [#/Vol] 5.20 10*6/uL 4.2-5.4 [facility] Serum or plasma calcium jimenez urement (mass/volume)Ordered By: Anam Garcia on 10-03-2023 Calcium [Mass/Vol] 9.1 mg/dL 8.5-10.1 [facility] Serum or plasma creatinine m easurement (mass/volume)Ordered By: Anam Garcia on 10-03-2023 Creatinine [Mass/Vol] 0.67 mg/dL 0.55-1.02 [facility] Comment on above: The validity of the calculated GFR & GFRAA in patients over 70 years has not been determined. Clinical correlation is essential. Serum or plasma urea nitroge n measurement (mass/volume)Ordered By: Anam Garcia on 10-03-2023 Urea nitrogen [Mass/Vol] 13 mg/dL 7-18 [facility] Thin prep Papanicolaou smear with manual screeningOrdered By: Anam Garcia on 10-03-2023 Thin prep Papanicolaou smear with manual screening 2 5-15 [facility] 25-hydroxyvitamin D3 [Mass/V ol]on 09-25-2023 Interpretation and review of laboratory results Normal [facility] Deficiency: < 20 ng/ ml Insufficiency: 20-29 ng/ml Sufficiency: 30-100 ng/ml This assay accurately quantifies the sum of Vitamin D3, 25-Hydroxy and Vitamin D2,25-Hydroxy. [facility] C reactive proteinon 024 CRP [Mass/Vol] 0.71 mg/dL Normal <1.00 [facility] Comment on above: Performed By: #### 1 988-5 #### SHORT JUAN RAMON ([id number]) [facility] ([facility]) [address] [place] [address] C-Reactive Proteinon 024 CRP [Mass/Vol] 0.71 mg/dL NINF - 1.00 mg/dL [facility] CBC W Auto Differential pane l (Bld)on 09-25-2023 Basophils (Bld) [#/Vol] 0.03 10*3/uL [facility] Basophils/100 WBC (Bld) 0.4 % 0.0 - 2.0 % [facility] Eosinophils (Bld) [#/Vol] 0.10 10*3/uL [facility] Eosinophils/100 WBC (Bld) 1.2 % 0.0 - 6.0 % [facility] Erythrocyte distribution width (RBC) [Ratio] 13.4 % 11.5 - 14.5 % [facility] Hematocrit (Bld) [Volume fraction] 47.2 % High 36.0 - 46.0 % [facility] Hemoglobin (Bld) [Mass/Vol] 15.1 g/dL 12.0 - 16.0 g/dL [facility] Immature granulocytes (Bld) [#/Vol] 0.01 10*3/uL [facility] Immature granulocytes/100 WBC (Bld) 0.1 % 0.0 - 0.9 % [facility] Comment on above: Immature Granulocyte Count (IG) includes promyelocytes, myelocytes and metamyelocytes but does not include bands. Percent differential counts (%) should be interpreted in the context of the absolute cell counts (cells/UL). Interpretation and review of laboratory results Abnormal [facility] Lymphocytes (Bld) [#/Vol] 2.32 10*3/uL [facility] Lymphocytes/100 WBC (Bld) 28.2 % 13.0 - 44.0 % [facility] MCH (RBC) [Entitic mass] 28.3 pg 26.0 - 34.0 pg [facility] MCHC (RBC) [Mass/Vol] 32.0 g/dL 32.0 - 36.0 g/dL [facility] MCV (RBC) [Entitic vol] 88 fL 80 - 100 fL [facility] Monocytes (Bld) [#/Vol] 0.55 10*3/uL [facility] Monocytes/100 WBC (Bld) 6.7 % 2.0 - 10.0 % [facility] Neutrophils (Bld) [#/Vol] 5.22 10*3/uL [facility] Comment on above: Percent differential counts (%) should be interpreted in the context of the absolute cell counts (cells/uL). Neutrophils/100 WBC (Bld) 63.4 % 40.0 - 80.0 % [facility] Nucleated RBC/100 WBC (Bld) [Ratio] 0.0 % [facility] Platelets (Bld) [#/Vol] 208 10*3/uL [facility] RBC (Bld) [#/Vol] 5.34 10*6/uL High [facility] WBC (Bld) [#/Vol] 8.2 10*3/uL [facility] Basophils (Bld) [#/Vol] 0.03 x10*3/uL Normal 0.00-0.10 [facility] Comment on above: Performed By: #### 5 7021-8 #### DEJA DELATORRE ([id number]) [facility] ([facility]) [address] [place] [address] Basophils/100 WBC (Bld) 0.4 % Normal 0.0-2.0 [facility] Comment on above: Performed By: #### 7021-8 #### DEJA DELATORRE ([id number]) [facility] ([facility]) [address] [place] [address]185 Eosinophils (Bld) [#/Vol] 0.10 x10*3/uL Normal 0.00-0.70 [facility] Comment on above: Performed By: #### 7021-8 #### DEJA DELATORRE ([id number]) [facility] ([facility]) [address] [place] [address]1447 Eosinophils/100 WBC (Bld) 1.2 % Normal 0.0-6.0 [facility] Comment on above: Performed By: #### 7021-8 #### DEJA DELATORRE ([id number]) [facility] ([facility]) [address] [place] [address]888 Erythrocyte distribution width (RBC) [Ratio] 13.4 % Normal 11.5-14.5 [facility] Comment on above: Performed By: #### 7021-8 #### DEJA DELATORRE ([id number]) [facility] ([facility]) [address] [place] [address]645 Hematocrit (Bld) [Volume fraction] 47.2 % High 36.0-46.0 [facility] Comment on above: Performed By: #### 7021-8 #### DEJA DELATORRE ([id number]) [facility] ([facility]) [address] [place] [address]15 Hemoglobin (Bld) [Mass/Vol] 15.1 g/dL Normal 12.0-16.0 [facility] Comment on above: Performed By: #### 5 7021-8 #### DEJA DELATORRE ([id number]) [facility] ([facility]) [address] [place] [address]140 Immature granulocytes (Bld) [#/Vol] 0.01 x10*3/uL Normal 0.00-0.70 [facility] Comment on above: Performed By: #### 5 7021-8 #### DEJA DELATORRE ([id number]) [facility] ([facility]) [address] [place] [address] 24037 Immature granulocytes/100 WBC (Bld) 0.1 % Normal 0.0-0.9 [facility] Comment on above: Result Comment: Maria ture Granulocyte Count (IG) includes promyelocytes, myelocytes and metamyelocytes but does not include bands. Percent differential counts (%) should be interpreted in the context of the absolute cell counts (cells/UL). Performed By: #### 5 7021-8 #### DEJA DELATORRE ([id number]) [facility] ([facility]) [address] [place] [address] 49228 Lymphocytes (Bld) [#/Vol] 2.32 x10*3/uL Normal 1.20-4.80 [facility] Comment on above: Performed By: #### 5 7021-8 #### DEJA DELATORRE ([id number]) [facility] ([facility]) [address] [place] [address] 97605 Lymphocytes/100 WBC (Bld) 28.2 % Normal 13.0-44.0 [facility] Comment on above: Performed By: #### 5 7021-8 #### DEJA DELATORRE ([id number]) [facility] ([facility]) [address] [place] [address] 38050 MCH (RBC) [Entitic mass] 28.3 pg Normal 26.0-34.0 [facility] Comment on above: Performed By: #### 5 7021-8 #### DEJA DELATORRE ([id number]) [facility] ([facility]) [address] [place] [address] 88976 MCHC (RBC) [Mass/Vol] 32.0 g/dL Normal 32.0-36.0 [facility] Comment on above: Performed By: #### 5 7021-8 #### DEJA DELATORRE ([id number]) [facility] ([facility]) [address] [place] [address] 09763 MCV (RBC) [Entitic vol] 88 fL Normal 80-100 [facility] Comment on above: Performed By: #### 5 7021-8 #### DEJA DELATORRE ([id number]) [facility] ([facility]) [address] [place] [address] 25571 Monocytes (Bld) [#/Vol] 0.55 x10*3/uL Normal 0.10-1.00 [facility] Comment on above: Performed By: #### 5 7021-8 #### DEJA DELATORRE ([id number]) [facility] ([facility]) [address] [place] [address] 34195 Monocytes/100 WBC (Bld) 6.7 % Normal 2.0-10.0 [facility] Comment on above: Performed By: #### 5 7021-8 #### DEJA DELATORRE ([id number]) [facility] ([facility]) [address] [place] [address] 64964 Neutrophils (Bld) [#/Vol] 5.22 x10*3/uL Normal 1.20-7.70 [facility] Comment on above: Result Comment: Perc ent differential counts (%) should be interpreted in the context of the absolute cell counts (cells/uL). Performed By: #### 5 7021-8 #### DEJA DELATORRE ([id number]) [facility] ([facility]) [address] [place] [address] 74914 Neutrophils/100 WBC (Bld) 63.4 % Normal 40.0-80.0 [facility] Comment on above: Performed By: #### 5 7021-8 #### DEJA DELATORRE ([id number]) [facility] ([facility]) [address] [place] [address] 68827 Nucleated RBC/100 WBC (Bld) [Ratio] 0.0 /100 WBCs Normal 0.0-0.0 [facility] Comment on above: Performed By: #### 5 7021-8 #### DEJA DELATORRE ([id number]) [facility] ([facility]) [address] [place] [address] 17229 Platelets (Bld) [#/Vol] 208 x10*3/uL Normal 150-450 [facility] Comment on above: Performed By: #### 5 7021-8 #### DEJA DELATORRE ([id number]) [facility] ([facility]) [address] [place] [address] 81145 RBC (Bld) [#/Vol] 5.34 x10*6/uL High 4.00-5.20 [facility] Comment on above: Performed By: #### 5 7021-8 #### DEJA DELATORRE ([id number]) [facility] ([facility]) [address] [place] [address] 58673 WBC (Bld) [#/Vol] 8.2 x10*3/uL Normal 4.4-11.3 [facility] Comment on above: Performed By: #### 5 7021-8 #### DEJA DELATORRE ([id number]) [facility] ([facility]) [address] [place] [address] 90258 Calcidiolon 09-25-2023 25-hydroxyvitamin D3 [Mass/Vol] 38 ng/mL Normal 30-100 [facility] Comment on above: Order Comment: Defic iency: < 20 ng/mlInsufficiency: 20-29 ng/mlSufficiency: 30-100 ng/mlThis assay accurately quantifies the sum of Vitamin D3, 25-Hydroxy and Vitamin D2,25-Hydroxy. Performed By: #### 4 537-7 #### DEJA DELATORRE ([id number]) [facility] ([facility]) [address] [place] [address] 45247 Cobalamin (Vitamin B12) [Mas s/Vol]on 09-25-2023 Interpretation and review of laboratory results Normal [facility] Cobalaminson 09-25-2023 Cobalamin (Vitamin B12) [Mass/Vol] 534 pg/mL Normal 211-911 [facility] Comment on above: Performed By: #### 4 537-7 #### SHORT JUAN RAMON ([id number]) [facility] ([facility]) [address] [place] [address] Comprehensive metabolic 2000 panelon 09-25-2023 Albumin BCP dye [Mass/Vol] 4.3 g/dL 3.4 - 5.0 g/dL [facility] ALP [Catalytic activity/Vol] 111 U/L High 33 - 110 U/L [facility] ALT With P-5'-P [Catalytic activity/Vol] 46 U/L High 7 - 45 U/L [facility] Comment on above: Patients treated wit h Sulfasalazine may generate falsely decreased results for ALT. Anion gap [Moles/Vol] 10 mmol/L 10 - 2 0 mmol/L [facility] AST With P-5'-P [Catalytic activity/Vol] 38 U/L 9 - 39 U/L [facility] Bilirubin [Mass/Vol] 0.6 mg/dL 0.0 - 1 .2 mg/dL [facility] Calcium [Mass/Vol] 9.6 mg/dL 8.6 - 10. 3 mg/dL [facility] Chloride [Moles/Vol] 104 mmol/L 98 - 10 7 mmol/L [facility] CO2 [Moles/Vol] 30 mmol/L 21 - 32 mmol/L [facility] Creatinine [Mass/Vol] 0.67 mg/dL 0.50 - 1.05 mg/dL [facility] eGFR - PINF [facility] Comment on above: Calculations of colette mated GFR are performed using the 2020 CKD-EPI Study Refit equation without the race variable for the IDMS-Traceable creatinine methods. https://jasn.asnjournals.org/content//ASN.092042 4345 Glucose [Mass/Vol] 85 mg/dL 74 - 99 mg/dL [facility] Potassium [Moles/Vol] 4.0 mmol/L 3.5 - 5.3 mmol/L [facility] Protein [Mass/Vol] 7.6 g/dL 6.4 - 8.2 g/dL [facility] Sodium [Moles/Vol] 140 mmol/L 136 - 145 mmol/L [facility] Urea nitrogen [Mass/Vol] 13 mg/dL 6 - 23 mg/dL [facility] Albumin BCP dye [Mass/Vol] 4.3 g/dL Normal 3.4-5.0 [facility] Comment on above: Performed By: #### 2 4323-8 #### DEJA DELATORRE ([id number]) [facility] ([facility]) [address] [place] [address] 70519 ALP [Catalytic activity/Vol] 111 U/L High 33-110 [facility] Comment on above: Performed By: #### 2 4323-8 #### DEJA DELATORRE ([id number]) [facility] ([facility]) [address] [place] [address] 43442 ALT With P-5'-P [Catalytic activity/Vol] 46 U/L High 7-45 [facility] Comment on above: Result Comment: Vicenta ents treated with Sulfasalazine may generate falsely decreased results for ALT. Performed By: #### 2 4323-8 #### DEJA DELATORRE ([id number]) [facility] ([facility]) [address] [place] [address] 52123 Anion gap [Moles/Vol] 10 mmol/L Normal 10-20 [facility] Comment on above: Performed By: #### 2 4323-8 #### DEJA DELATORRE ([id number]) [facility] ([facility]) [address] [place] [address] 36641 AST With P-5'-P [Catalytic activity/Vol] 38 U/L Normal 9-39 [facility] Comment on above: Performed By: #### 2 4323-8 #### DEJA DELATORRE ([id number]) [facility] ([facility]) [address] [place] [address] 33410 Bilirubin [Mass/Vol] 0.6 mg/dL Normal 0.0-1.2 [facility] Comment on above: Performed By: #### 2 4323-8 #### DEJA DELATORRE ([id number]) [facility] ([facility]) [address] [place] [address] Calcium [Mass/Vol] 9.6 mg/dL Normal 8.6-10.3 [facility] Comment on above: Performed By: #### 2 4323-8 #### DEJA DELATORRE ([id number]) [facility] ([facility]) [address] [place] [address] Chloride [Moles/Vol] 104 mmol/L Normal 98-107 [facility] Comment on above: Performed By: #### 2 4323-8 #### DEJA DELATORRE ([id number]) [facility] ([facility]) [address] [place] [address] CO2 [Moles/Vol] 30 mmol/L Normal 21-32 [facility] Comment on above: Performed By: #### 2 4323-8 #### DEJA DELATORRE ([id number]) [facility] ([facility]) [address] [place] [address] Creatinine [Mass/Vol] 0.67 mg/dL Normal 0.50-1.05 [facility] Comment on above: Performed By: #### 2 4323-8 #### DEJA DELATORRE ([id number]) [facility] ([facility]) [address] [place] [address] 12617 GFR/1.73 sq M.predicted MDRD (S/P/Bld) [Vol rate/Area] mL/min/{1.73_m2} Normal >60 [facility] Comment on above: Result Comment: Calc ulations of estimated GFR are performed using the 2020 CKD-EPI Study Refit equation without the race variable for the IDMS-Traceable creatinine methods. https://jasn.asnjournals.org/content//ASN.857802 6966 Performed By: #### 2 4323-8 #### DEJA DELATORRE ([id number]) [facility] ([facility]) [address] [place] [address] 76630 Glucose [Mass/Vol] 85 mg/dL Normal 74-99 [facility] Comment on above: Performed By: #### 2 4323-8 #### DEJA DELATORRE ([id number]) [facility] ([facility]) [address] [place] [address] 48057 Potassium [Moles/Vol] 4.0 mmol/L Normal 3.5-5.3 [facility] Comment on above: Performed By: #### 2 4323-8 #### DEJA DELATORRE ([id number]) [facility] ([facility]) [address] [place] [address] 13445 Protein [Mass/Vol] 7.6 g/dL Normal 6.4-8.2 [facility] Comment on above: Performed By: #### 2 432-8 #### DEJA DELATORRE ([id number]) [facility] ([facility]) [address] [place] [address] 58036 Sodium [Moles/Vol] 140 mmol/L Normal 136-145 [facility] Comment on above: Performed By: #### 2 432-8 #### DEJA DELATORRE ([id number]) [facility] ([facility]) [address] [place] [address] 23136 Urea nitrogen [Mass/Vol] 13 mg/dL Normal 6-23 [facility] Comment on above: Performed By: #### 2 432-8 #### DEJA DELATORRE ([id number]) [facility] ([facility]) [address] [place] [address] 93281 ESR Westergren method (Bld) [Velocity]on 09-25-2023 ESR (Bld) [Velocity] 11 mm/h 0 - 20 mm/h [facility] Interpretation and review of laboratory results Normal [facility] ESR (Bld) [Velocity] 11 mm/h Normal 0-20 [facility] Comment on above: Performed By: #### 4 537-7 #### DEJA DELATORRE ([id number]) [facility] ([facility]) [address] [place] [address] Ferritinon 09-25-2023 Ferritin [Mass/Vol] 129 ng/mL 8 - 150 ng/mL Un [facility] Ferritin [Mass/Vol] 129 ng/mL Normal 8-[address] [facility] Comment on above: Performed By: #### 2 276-4 #### SHORT JUAN RAMON ([id number]) [facility] ([facility]) [address] [place] [address] Free T4 [Mass/Vol]on 024 Interpretation and review of laboratory results Normal [facility] Thyroxine Free testi ng is performed using different testing methodology at [facility] than at other [facility]. Direct result comparisons should only be made within the same method. Biotin can cause falsely elevated free T4 results. Patients taking a Biotin dose of up to 10 mg/day should refrain from taking Biotin for 24 hours before sample collection. Patient taking a Biotin dose of >10 mg/day should consult with their physician or the laboratory before the blood draw. [facility] HbA1c (Bld) [Mass fraction]o n 09-25-2023 Average glucose Estimated from glycated hemoglobin (Bld) [Mass/Vol] 88 mg/dL Normal Not Established [facility] Comment on above: Order Comment: Diagn osis of Bszmheoa-QlmvuoBjl-Huvqqhky: < or = 5.6%Increased risk for developing diabetes: 5.7-6.4%Diagnostic of diabetes: > or = 6.5%Monitoring of DiabetesAge (y)....................... Therapeutic Goal (%)Adults: >18.........................<7.0Pediatrics: 13-18...................<7.5Pediatrics: 7-12....................<8.0Pediatrics: 0-6..................... 7.5-8.5American Diabetes Association. Diabetes Care 33(S1)Aug 2009 Performed By: #### 4 537-7 #### DEJA DELATORRE ([id number]) [facility] ([facility]) [facility] [place] [phone] Hemoglobin A1c/Hemoglobin.to donald 09-25-2023 HbA1c (Bld) [Mass fraction] 4.7 % Normal see below [facility] Comment on above: Order Comment: Diagn osis of Srhpnpcx-OexihrWzz-Xoqzzclq: < or = 5.6%Increased risk for developing diabetes: 5.7-6.4%Diagnostic of diabetes: > or = 6.5%Monitoring of DiabetesAge (y)....................... Therapeutic Goal (%)Adults: >18.........................<7.0Pediatrics: 13-18...................<7.5Pediatrics: 7-12....................<8.0Pediatrics: 0-6..................... 7.5-8.5American Diabetes Association. Diabetes Care 33(S1)Aug 2009 Performed By: #### 4 537-7 #### DEJA DELATORRE ([id number]) [facility] ([facility]) [facility] [place] [phone] Iron and Iron binding capaci ty panelon 09-25-2023 Iron [Mass/Vol] 90 ug/dL 35 - 150 ug/dL [facility] Iron binding capacity [Mass/Vol] 318 ug/dL 240 - 445 ug/dL [facility] Iron binding capacity.unsaturated [Mass/Vol] 228 ug/dL 110 - 370 ug/dL [facility] Iron saturation [Mass fraction] 28 % 25 - 45 % [facility] Iron [Mass/Vol] 90 ug/dL Normal 35-150 [facility] Comment on above: Performed By: #### 5 0190-8 #### DEJA DELATORRE ([id number]) [facility] ([facility]) [address] [place] [address] 28851 Iron binding capacity [Mass/Vol] 318 ug/dL Normal 240-445 [facility] Comment on above: Performed By: #### 5 0190-8 #### DEJA DELATORRE ([id number]) [facility] ([facility]) [address] [place] [address] 85411 Iron binding capacity.unsaturated [Mass/Vol] 228 ug/dL Normal 110-370 [facility] Comment on above: Performed By: #### 5 0190-8 #### DEJA DELATORRE ([id number]) [facility] ([facility]) [address] [place] [address] 10640 Iron saturation [Mass fraction] 28 % Normal 25-45 [facility] Comment on above: Performed By: #### 5 0190-8 #### DEJA DELATORRE ([id number]) [facility] ([facility]) [address] [place] [address] 88422 Lipid 1996 panelon 4 Cholesterol [Mass/Vol] 218 mg/dL High 0 - 199 mg/dL [facility] Comment on above: Age Desirable Borderline High High 0-19 Y 0 - 169 170 - 199 >/= 200 20-24 Y 0 - 189 190 - 224 >/= 225 >24 Y 0 - 199 200 - 239 >/= 240 All ranges are based on fasting samples. Specific therapeutic targets will vary based on patient-specific cardiac risk. Pediatric guidelines reference:Pediatrics 2011, 128(S5).Adult guidelines reference: NCEP ATPIII Guidelines,WILLIAN 2001, 258:2486-97 Venipuncture immediately after or during the administration of Metamizole may lead to falsely low results. Testing should be performed immediately prior to Metamizole dosing. Cholesterol in HDL [Mass/Vol] 52.0 mg/dL [facility] Comment on above: Age Very Low Low Normal High 0-19 Y < 35 < 40 40-45 ---- 20-24 Y ---- < 40 >45 ---- >24 Y ---- < 40 40-60 >60 Cholesterol in LDL [Mass/Vol] 147 mg/dL High NINF - 99 mg/dL [facility] Comment on above: Near Borderline AGE Desirable Optimal High High Very High 0-19 Y 0 - 109 --- 110-129 >/= 130 ---- 20-24 Y 0 - 119 --- 120-159 >/= 160 ---- >24 Y 0 - 99 100-129 130-159 160-189 >/=190 Cholesterol in VLDL [Mass/Vol] 19 mg/dL 0 - 40 mg/dL [facility] Cholesterol.total/Cho lesterol in HDL [Mass ratio] 4.2 {ratio} [facility] Comment on above: Ref Values Desirable < 3.4 High Risk > 5.0 Non HDL Cholesterol 166 mg/dL High 0 - 149 mg/dL Un [facility] Comment on above: Age Desirable Borderline High High Very High 0-19 Y 0 - 119 120 - 144 >/= 145 >/= 160 20-24 Y 0 - 149 150 - 189 >/= 190 ---- >24 Y 30 mg/dL above LDL Cholesterol goal Triglyceride [Mass/Vol] 97 mg/dL 0 - 149 mg/dL [facility] Comment on above: Age Desirable Borderline High High Very High 0 D-90 D 19 - 174 ---- ---- ---- 91 D- 9 Y 0 - 74 75 - 99 >/= 100 ---- 10-19 Y 0 - 89 90 - 129 >/= 130 ---- 20-24 Y 0 - 114 115 - 149 >/= 150 ---- >24 Y 0 - 149 150 - 199 200- 499 >/= 500 Venipuncture immediately after or during the administration of Metamizole may lead to falsely low results. Testing should be performed immediately prior to Metamizole dosing. Cholesterol [Mass/Vol] 218 mg/dL High 0-199 [facility] Comment on above: Result Comment: Age Desirable Borderline High High 0-19 Y 0 - 169 170 - 199 >/= 200 20-24 Y 0 - 189 190 - 224 >/= 225 >24 Y 0 - 199 200 - 239 >/= 240 All ranges are based on fasting samples. Specific therapeutic targets will vary based on patient-specific cardiac risk. Pediatric guidelines reference:Pediatrics 2011, 128(S5).Adult guidelines reference: NCEP ATPIII Guidelines,WILLIAN 2001, 258:2486-97 Venipuncture immediately after or during the administration of Metamizole may lead to falsely low results. Testing should be performed immediately prior to Metamizole dosing. Performed By: #### 2 4331-1 #### DEJA DELATORRE ([id number]) [facility] ([facility]) [address] [place] [address] 20123 Cholesterol in HDL [Mass/Vol] 52.0 mg/dL Normal [facility] Comment on above: Result Comment: Age Very Low Low Normal High 0-19 Y < 35 < 40 40-45 ---- 20-24 Y ---- < 40 >45 ---- >24 Y ---- < 40 40-60 >60 Performed By: #### 2 4331-1 #### DEJA DELATORRE ([id number]) [facility] ([facility]) [address] [place] [address] 85006 Cholesterol in LDL [Mass/Vol] 147 mg/dL High <=99 [facility] Comment on above: Result Comment: Near Borderline AGE Desirable Optimal High High Very High 0-19 Y 0 - 109 --- 110-129 >/= 130 ---- 20-24 Y 0 - 119 --- 120-159 >/= 160 ---- >24 Y 0 - 99 100-129 130-159 160-189 >/=190 Performed By: #### 2 4331-1 #### DEJA DELATORRE ([id number]) [facility] ([facility]) [address] [place] [address] 95298 Cholesterol in VLDL [Mass/Vol] 19 mg/dL Normal 0-40 [facility] Comment on above: Performed By: #### 2 4331-1 #### DEJA DELATORRE ([id number]) [facility] ([facility]) [address] [place] [address] 30765 CHOLESTEROL/HDL RATIO 4.2 Normal Uni [facility] Comment on above: Result Comment: Ref Values Desirable < 3.4 High Risk > 5.0 Performed By: #### 2 4331-1 #### DEJA DELATORRE ([id number]) [facility] ([facility]) [address] [place] [phone] NON HDL CHOLESTEROL 166 mg/dL High 0-149 [facility] Comment on above: Result Comment: Age Desirable Borderline High High Very High 0-19 Y 0 - 119 120 - 144 >/= 145 >/= 160 20-24 Y 0 - 149 150 - 189 >/= 190 ---- >24 Y 30 mg/dL above LDL Cholesterol goal Performed By: #### 2 4331-1 #### DEJA DELATORRE ([id number]) [facility] ([facility]) [address] [place], [place] [phone] Triglyceride [Mass/Vol] 97 mg/dL Normal 0-149 [facility] Comment on above: Result Comment: Age Desirable Borderline High High Very High 0 D-90 D 19 - 174 ---- ---- ---- 91 D- 9 Y 0 - 74 75 - 99 >/= 100 ---- 10-19 Y 0 - 89 90 - 129 >/= 130 ---- 20-24 Y 0 - 114 115 - 149 >/= 150 ---- >24 Y 0 - 149 150 - 199 200- 499 >/= 500 Venipuncture immediately after or during the administration of Metamizole may lead to falsely low results. Testing should be performed immediately prior to Metamizole dosing. Performed By: #### 2 4331-1 #### DEJA DELATORRE ([id number]) [facility] ([facility]) [address] [place] [address] 24823 Magnesiumon 09-25-2023 Magnesium [Mass/Vol] 1.89 mg/dL 1.60 - 2.40 mg/dL [facility] Magnesium [Mass/Vol] 1.89 mg/dL Normal 1.60-2.40 [facility] Comment on above: Performed By: #### 1 9123-9 #### DEJA DELATORRE ([id number]) [facility] ([facility]) [address] [place], [place] [phone] No Panel Informationon 09-25 Interpretation and review of laboratory results Normal [facility] Interpretation and review of laboratory results Abnormal [facility] Interpretation and review of laboratory results Normal [facility] TSH Qnon 09-25-2023 Interpretation and review of laboratory results Normal [facility] TSH testing is performed using different testing methodology at [facility] than at other [facility]. Direct result comparisons should only be made within the same method. [facility] Thyroid Stimulating Hormoneo n 09-25-2023 TSH Qn 2.66 m[IU]/L [facility] Thyrotropinon 09-25-2023 TSH Qn 2.66 m[IU]/L Normal 0.44-3.98 [facility] Comment on above: Order Comment: TSH t esting is performed using different testing methodology at [facility] than at other [facility]. Direct result comparisons should only be made within the same method. Performed By: #### 3 016-3 #### DEJA DELATORRE ([id number]) [facility] ([facility]) [address] [place] [address] Thyroxine, Freeon 09-25-2023 Free T4 [Mass/Vol] 0.84 ng/dL 0.61 - 1. 12 ng/dL [facility] Thyroxine.freeon 09-25-2023 Free T4 [Mass/Vol] 0.84 ng/dL Normal 0.61-1.12 [facility] Comment on above: Order Comment: Thyro xine Free testing is performed using different testing methodology at [facility] than at other [facility]. Direct result comparisons should only be made within the same method. Biotin can cause falsely elevated free T4 results. Patients taking a Biotin dose of up to 10 mg/day should refrain from taking Biotin for 24 hours before sample collection. Patient taking a Biotin dose of >10 mg/day should consult with their physician or the laboratory before the blood draw. Performed By: #### 3 024-7 #### DEJA DELATORRE ([id number]) [facility] ([facility]) [address] [place], [place] [phone] Vitamin B12on 09-25-2023 Cobalamin (Vitamin B12) [Mass/Vol] 534 pg/mL 211 - 911 pg/mL [facility] Vitamin D 25-Hydroxy,Total ( for eval of Vitamin D levels)on 09-25-2023 25-hydroxyvitamin D3 [Mass/Vol] 38 ng/mL 30 - 100 ng/mL [facility] LABORATORYOrdered By: SYSTEM SYSTEM on 05-15-2023 Albumin BCP dye [Mass/Vol] 4.0 G/dL Invalid Interpretation Code 3.5 - 5.0 G/dL AO ADM SS Albumin/Globulin [Mass ratio] 0.9 {ratio} Invalid Interpretation Code 1.1 - 2.5 ratio AO ADM SS ALP [Catalytic activity/Vol] 158 U/L Invalid Interpretation Code 40 - 135 U/L AO ADM SS ALT With P-5'-P [Catalytic activity/Vol] 73 U/L Invalid Interpretation Code 14 - 59 U/L AO ADM SS AST With P-5'-P [Catalytic activity/Vol] 44 U/L Invalid Interpretation Code 10 - 40 U/L AO ADM SS Basophil, Absolute 0.1 103/mcL Invalid Interpretation Code 0.0 - 0.2 10^3/mcL AO Workflow SS Basophils/100 WBC (Bld) 0.6 % Invalid Interpretation Code 0.0 - 2.5 % AO Workflow SS Bilirubin [Mass/Vol] 0.3 mg/dL Invalid Interpretation Code 0.2 - 1.0 mg/dL AO ADM SS Comment on above: Interpretive Data: U se of this assay is not recommended for patients undergoing treatment with eltrombopag due to the potential for falsely elevated results. Calcium [Mass/Vol] 8.9 mg/dL Invalid Interpretation Code 8.4 - 10.2 mg/dL AO ADM SS Chloride [Moles/Vol] 101 mmol/L Invalid Interpretation Code 98 - 107 mmol/L AO ADM SS CO2 [Moles/Vol] 30 mmol/L Invalid Interpretation Code 22 - 29 mmol/L AO ADM SS Creatinine [Mass/Vol] 0.81 mg/dL Invalid Interpretation Code 0.55 - 1.02 mg/dL AO ADM SS Electrolyte Balance 9.0 mEq/L Invalid Interpretation Code 4.0 - 15.0 mEq/L AO ADM SS Eosinophil, Absolute 0.1 103/mcL Invalid Interpretation Code 0.0 - 0.4 10^3/mcL AO Workflow SS Eosinophils/100 WBC (Bld) 1.1 % Invalid Interpretation Code 0.0 - 7.0 % AO Workflow SS Erythrocyte distribution width (RBC) [Ratio] 14.3 % Invalid Interpretation Code 11.5 - 14.5 % AO Workflow SS GFR/1.73 sq M.predicted among blacks MDRD (S/P/Bld) [Vol rate/Area] 95 ml/min/1.73sqm Invalid Interpretation Code AO Chemistry S Comment on above: Interpretive Data: GFR Population mean for , Non- Americans Ages 20-29 = 116 mL/min/1.73 sq.m. Ages 30-39 = 107 mL/min/1.73 sq.m. Ages 40-49 = 99 mL/min/1.73 sq.m. Ages 50-59 = 93 mL/min/1.73 sq.m. Ages 60-69 = 85 mL/min/1.73 sq.m. Ages 70+ = 75 mL/min/1.73 sq.m. Chronic Kidney Disease: Less than 60 mL/min/1.73 square meters End Stage Renal Disease: Less than 15 mL/min/1.73 square meters GFR/1.73 sq M.predicted among non-blacks MDRD (S/P/Bld) [Vol rate/Area] 79 ml/min/1.73sqm Invalid Interpretation Code AO Chemistry S Comment on above: Interpretive Data: GFR Population mean for , Non- Americans Ages 20-29 = 116 mL/min/1.73 sq.m. Ages 30-39 = 107 mL/min/1.73 sq.m. Ages 40-49 = 99 mL/min/1.73 sq.m. Ages 50-59 = 93 mL/min/1.73 sq.m. Ages 60-69 = 85 mL/min/1.73 sq.m. Ages 70+ = 75 mL/min/1.73 sq.m. Chronic Kidney Disease: Less than 60 mL/min/1.73 square meters End Stage Renal Disease: Less than 15 mL/min/1.73 square meters Globulin 4.4 G/dL Invalid Interpretation Code AO ADM SS Glucose [Mass/Vol] 87 mg/dL Invalid Interpretation Code 70 - 105 mg/dL AO ADM SS Hematocrit (Bld) [Volume fraction] 46.7 % Invalid Interpretation Code 37.0 - 47.0 % AO Workflow SS Hemoglobin (Bld) [Mass/Vol] 15.6 G/dL Invalid Interpretation Code 12.0 - 16.0 G/dL AO Workflow SS Lipase [Catalytic activity/Vol] 42 U/L Invalid Interpretation Code 16 - 77 U/L AO ADM SS Lymphocyte, Absolute 3.5 103/mcL Invalid Interpretation Code 0.8 - 3.9 10^3/mcL AO Workflow SS Lymphocytes/100 WBC (Bld) 28.1 % Invalid Interpretation Code 10.0 - 50.0 % AO Workflow SS MCH (RBC) [Entitic mass] 28.5 pg Invalid Interpretation Code 27.0 - 31.2 pg AO Workflow SS MCHC 33.4 G/dL Invalid Interpretation Code 33.0 - 37.0 G/dL AO Workflow SS MCV (RBC) [Entitic vol] 85.4 fL Invalid Interpretation Code 80.0 - 94.0 fL AO Workflow SS Monocyte distribution width Auto (Bld) [Entitic vol] 17.77 1 Invalid Interpretation Code 0.00 - 20.00 AO Workflow SS Comment on above: Result Comment: For ED adult patients suspected of sepsis, MDW<=20.0 does not rule out sepsis or risk of sepsis Monocyte, Absolute 0.9 103/mcL Invalid Interpretation Code 0.2 - 1.0 10^3/mcL AO Workflow SS Monocytes/100 WBC (Bld) 7.5 % Invalid Interpretation Code 1.7 - 13.0 % AO Workflow SS Neutrophil, Absolute 7.9 103/mcL Invalid Interpretation Code 2.9 - 6.2 10^3/mcL AO Workflow SS Neutrophils/100 WBC (Bld) 62.7 % Invalid Interpretation Code 37.0 - 80.0 % AO Workflow SS Platelet mean volume (Bld) [Entitic vol] 9.2 fL Invalid Interpretation Code 7.4 - 10.4 fL AO Workflow SS Platelets (Bld) [#/Vol] 177 103/mcL Invalid Interpretation Code 130 - 400 10^3/mcL AO Workflow SS Potassium [Moles/Vol] 4.1 mmol/L Invalid Interpretation Code 3.5 - 5.1 mmol/L AO ADM SS Protein [Mass/Vol] 8.4 G/dL Invalid Interpretation Code 6.4 - 8.2 G/dL AO ADM SS RBC (Bld) [#/Vol] 5.47 106/mcL Invalid Interpretation Code 4.20 - 5.40 10^6/mcL AO Workflow SS Sodium [Moles/Vol] 140 mmol/L Invalid Interpretation Code 136 - 145 mmol/L AO ADM SS Troponin I.cardiac DL <= 0.01 ng/mL [Mass/Vol] 4.2 ng/L Invalid Interpretation Code 0.0 - 51.4 ng/L AO ADM SS Urea nitrogen [Mass/Vol] 11 mg/dL Invalid Interpretation Code 7 - 18 mg/dL AO ADM SS Urea nitrogen/Creatinine [Mass ratio] 14 ratio Invalid Interpretation Code 7 - 27 ratio AO ADM SS WBC (Bld) [#/Vol] 12.5 103/mcL Invalid Interpretation Code 4.6 - 10.8 10^3/mcL AO Workflow SS LABORATORYOrdered By: Venkata Cui on 05-15-2023 Appearance (U) Clear (05/15/23 4:54 PM) Invalid Interpretation Code Clear AO Auto Urine SS Bilirubin Ql (U) Negative (05/15/23 4:54 PM) Invalid Interpretation Code Negative AO Auto Urine SS Color (U) Yellow (05/15/23 4:54 PM) Invalid Interpretation Code AO Auto Urine SS Glucose Test strip (U) [Mass/Vol] Negative Invalid Interpretation Code Negative AO Auto Urine SS HCG ( test) Ql Negative (05/15/23 4:54 PM) Invalid Interpretation Code AO Manual Urine SS Hemoglobin Auto test strip (U) [Mass/Vol] Negative (05/15/23 4:54 PM) Invalid Interpretation Code Negative AO Auto Urine SS Ketones Ql (U) Negative Invalid Interpretation Code Negative AO Auto Urine SS test (u) int Not detected Invalid Interpretation Code AO Manual Urine SS UA Leuk Est Negative (05/15/23 4:54 PM) Invalid Interpretation Code Negative AO Auto Urine SS UA Nitrite Negative (05/15/23 4:54 PM) Invalid Interpretation Code Negative AO Auto Urine SS UA pH 7.0 (05/15/23 4:54 PM) Invalid Interpretation Code 5.0 - 8.0 AO Auto Urine SS UA Protein Negative Invalid Interpretation Code Negative AO Auto Urine SS UA Spec Grav 1.020 (05/15/23 4:54 PM) Invalid Interpretation Code 1.015-1.025 AO Auto Urine SS UA Specimen Type Clean Catch (05/15/23 4:54 PM) Invalid Interpretation Code AO Auto Urine SS UA Urobilinogen 0.2 E.U./dL Invalid Interpretation Code 0.2-1.0 AO Auto Urine SS OPIATE/OPIOID/BENZO EXTENDED PRESCRIPTION COMPLIANCEon 02-14-2023 6-ACETYLMORPHINE <25 Normal Cutoff <25 [facility] Comment on above: Performed By: #### D SBOP #### [facility] [address] [place] [id number] 7-AMINOCLONAZEPAM <25 Normal Cutoff <25 [facility] Comment on above: Performed By: #### D SBOP #### [facility] [address] [place] [id number] ALPHA-HYDROXYALPRAZOL AM <25 Normal Cutoff <25 [facility] Comment on above: Performed By: #### D SBOP #### [facility] [address] [place] [address] ALPHA-HYDROXYMIDAZOLA M <25 Normal Cutoff <25 [facility] Comment on above: Performed By: #### D SBOP #### [facility] [address] [place] [address] ALPRAZOLAM <25 Normal Cutoff <25 [facility] Comment on above: Performed By: #### D SBOP #### [facility] [address] [place] [address] CHLORDIAZEPOXIDE <25 Normal Cutoff <25 [facility] Comment on above: Performed By: #### D SBOP #### [facility] [address] [place] [address] CLONAZEPAM <25 Normal Cutoff <25 [facility] Comment on above: Performed By: #### D SBOP #### [facility] [address] [place] [address] CODEINE <50 Normal Cutoff <50 [facility] Comment on above: Performed By: #### D SBOP #### [facility] [address] [place] [address] DIAZEPAM <25 Normal Cutoff <25 [facility] Comment on above: Performed By: #### D SBOP #### [facility] [address] [place] [id number] EDDP,U <25 Normal Cutoff <25 [facility] Comment on above: Result Comment: The performance characteristics of the Methadone Confirmation, Urine has been validated by the individual laboratory site where testing is performed. It has not been cleared or approved by the FDA. However the FDA has determined that such clearance or approval is not necessary. Our Laboratory is certified under the Clinical Laboratory Improvement Amendments of 1988 (CLIA) as qualified to perform high complexity clinical laboratory testing. Performed By: #### D SBOP #### [facility] [address] [place] [address] FENTANYL CONFIRM,U <2.5 Normal Cutoff<2.5 [facility] Comment on above: Performed By: #### D SBOP #### [facility] [address] [place] [address] HYDROCODONE <25 Normal Cutoff <25 [facility] Comment on above: Performed By: #### D SBOP #### [facility] [address] [place] [address] HYDROMORPHONE <25 Normal Cutoff <25 [facility] [facility] Comment on above: Performed By: #### D SBOP #### [facility] [address] [place] [address] LORAZEPAM >1000 Abnormal Cutoff <25 [facility] Comment on above: Result Comment: Cons istent with use of a drug containing lorazepam, such as Ativan. Performed By: #### D SBOP #### [facility] [address] [place] [address] METHADONE,U <25 Normal Cutoff <25 [facility] Comment on above: Performed By: #### D SBOP #### [facility] [address] [place] [address] MIDAZOLAM <25 Normal Cutoff <25 [facility] Comment on above: Performed By: #### D SBOP #### [facility] [address] [place] [address] MORPHINE <50 Normal Cutoff <50 [facility] Comment on above: Performed By: #### D SBOP #### [facility] [address] [place] [address] NORDIAZEPAM <25 Normal Cutoff <25 [facility] Comment on above: Performed By: #### D SBOP #### [facility] [address] [place] [address] NORFENTANYL CONFIRM,U <2.5 Normal Cutoff<2.5 [facility] Comment on above: Result Comment: The performance characteristics of the Fentanyl Confirmation, Urine has been validated by the individual laboratory site where testing is performed. It has not been cleared or approved by the FDA. However the FDA has determined that such clearance or approval is not necessary. Our Laboratory is certified under the Clinical Laboratory Improvement Amendments of 1988 (CLIA) as qualified to perform high complexity clinical laboratory testing. Performed By: #### D SBOP #### [facility] [address] [place] [address] NORHYDROCODONE <25 Normal Cutoff <25 [facility] Comment on above: Performed By: #### D SBOP #### [facility] [address] [place] [address] NOROXYCODONE <25 Normal Cutoff <25 [facility] Comment on above: Performed By: #### D SBOP #### [facility] [address] [place] [address] O-DESMETHYLTRAMADOL,U <50 Normal Cutoff <50 [facility] Comment on above: Result Comment: The performance characteristics of the Tramadol Confirmation, Urine has been validated by the individual laboratory site where testing is performed. It has not been cleared or approved by the FDA. However the FDA has determined that such clearance or approval is not necessary. Our Laboratory is certified under the Clinical Laboratory Improvement Amendments of 1988 (CLIA) as qualified to perform high complexity clinical laboratory testing. Performed By: #### D SBOP #### [facility] [address] [place] [address] OXAZEPAM <25 Normal Cutoff <25 [facility] Comment on above: Performed By: #### D SBOP #### [facility] [address] [place] [address] OXYCODONE <25 Normal Cutoff <25 [facility] Comment on above: Performed By: #### D SBOP #### [facility] [address] [place] [address] OXYMORPHONE <25 Normal Cutoff <25 [facility] Comment on above: Result Comment: The performance characteristics of the Opiate Confirmation, Urine has been validated by the individual laboratory site where testing is performed. It has not been cleared or approved by the FDA. However the FDA has determined that such clearance or approval is not necessary. Our Laboratory is certified under the Clinical Laboratory Improvement Amendments of 1988 (CLIA) as qualified to perform high complexity clinical laboratory testing. Performed By: #### D SBOP #### [facility] [address] [place] [address] TEMAZEPAM <25 Normal Cutoff <25 [facility] Comment on above: Result Comment: The performance characteristics of the Benzodiazepine Confirmation, Urine has been validated by the individual laboratory site where testing is performed. It has not been cleared or approved by the FDA. However the FDA has determined that such clearance or approval is not necessary. Our Laboratory is certified under the Clinical Laboratory Improvement Amendments of 1988 (CLIA) as qualified to perform high complexity clinical laboratory testing. Performed By: #### D SBOP #### [facility] [address] [place] [address] TRAMADOL CONFIRM,U <50 Normal Cutoff <50 [facility] Comment on above: Performed By: #### D SBOP #### [facility] [address] [place] [address] ZOLPIDEM METABOLITE[ZCA] ,U <25 Normal Cutoff <25 [facility] Comment on above: Result Comment: The performance characteristics of the Zolpidem Confirmation, Urine has been validated by the individual laboratory site where testing is performed. It has not been cleared or approved by the FDA. However the FDA has determined that such clearance or approval is not necessary. Our Laboratory is certified under the Clinical Laboratory Improvement Amendments of 1988 (CLIA) as qualified to perform high complexity clinical laboratory testing. Performed By: #### D SBOP #### [facility] [address] [place] [address] ZOLPIDEM,URINE <25 Normal Cutoff <25 [facility] Comment on above: Performed By: #### D SBOP #### [facility] [address] [place] [address] ANTI-DNA [DS]on 02-10-2023 ANTI-DNA [DS] <1.0 Normal [facility] Comment on above: Result Comment: REF VALUES NEGATIVE: <= 4 IU/ML EQUIVOCAL: 5- 9 IU/ML POSITIVE: >=10 IU/ML Performed By: #### D NADS #### [facility] [address] [place] CITRULLINE ANTIBODYon 2022 CITRULLINE ANTIBODY <1 Normal [facility] Comment on above: Result Comment: THE TEST FOR ANTIBODIES SPECIFIC FOR CYCLIC CITRULLINATED PEPTIDE (CCP) HAS SHOWN TO BE VALUABLE IN THE DIAGNOSIS OF RHEUMATOID ARTHRITIS. THE DIAGNOSTIC VALUE OF ANTIBODIES TO CCP IN JUVENILE RHEUMATOID ARTHRITIS PATIENTS HAS NOT BEEN DETERMINED. ANTIBODIES TO CENTROMERE OR SS-A AND MYELOMA IGG MAY BE REACTIVE IN THIS ASSAY. REF VALUES NEGATIVE < 3 U/ML POSITIVE >=3 U/ML Performed By: #### C ITAB #### [facility] [address] [place] OPIATE/OPIOID/BENZO EXTENDED PRESCRIPTION COMPLIANCEon 02-10-2023 AMPHETAMINE SCREEN,U Negative Normal NEGATIVE [facility] Comment on above: Result Comment: CUTO FF LEVEL: 500 NG/ML Cross-reactivity has been reported with high concentrations of the following drugs: buproprion, chloroquine, chlorpromazine, ephedrine, mephentermine, fenfluramine, phentermine, phenylpropanolamine, pseudoephedrine, and propranolol. Performed By: #### D SBOP #### [facility] [address] [place] BARBITURATES SCREEN,U Negative Normal NEGATIVE [facility] Comment on above: Result Comment: CUTO FF LEVEL: 200 NG/ML Performed By: #### D SBOP #### [facility] [address] [place] CANNABINOIDS SCREEN,U Negative Normal NEGATIVE [facility] Comment on above: Result Comment: CUTO FF LEVEL: 50 NG/ML Performed By: #### D SBOP #### [facility] [address] [place] [address] [place] COCAINE METABOLITE SCREEN,U Negative Normal NEGATIVE [facility] Comment on above: Result Comment: CUTO FF LEVEL: 150 NG/ML Performed By: #### D SBOP #### [facility] [address] [place] Creatinine [Mass/Vol] 210.9 mg/dL Normal [facility] Comment on above: Result Comment: A ur ine creatinine result >= 20 mg/dL is considered valid without suspicion of dilution. Samples with results below this range will automatically reflex to specific gravity testing to verify specimen integrity. Performed By: #### D SBOP #### [facility] [address] [place] [address] DRUG SCREEN COMMENT. SEE BELOW Normal [facility] Comment on above: Result Comment: Drug screen results are presumptive and should not be used to assess compliance with prescribed medication. Definitive confirmatory drug testing has been added to this sample for any positive screen result and will be reported separately. . Toxicology screening results are reported qualitatively. The concentration must be greater than or equal to the cutoff to be reported as positive. The concentration at which the screening test can detect an individual drug or metabolite varies. The absence of expected drug(s) and/or drug metabolite(s) may indicate non-compliance, inappropriate timing of specimen collection relative to drug administration, poor drug absorption, diluted/adulterated urine, or limitations of testing. For medical purposes only; not valid for forensic use. . Interpretive questions should be directed to the laboratory medical directors. Performed By: #### D SBOP #### [facility] [address] [place] [address] PCP SCREEN,U Negative Normal NEGATIVE [facility] Comment on above: Result Comment: CUTO FF LEVEL: 25 NG/ML Cross-reactivity has been reported with dextromethorphan. Performed By: #### D SBOP #### [facility] [address] [place] [address] RHEUMATOID FACTORon 02-11-20 23 RHEUMATOID FACTOR <10 Normal 0 - 15 [facility] Comment on above: Performed By: #### R F #### [facility] [address] [place] [address] TRIIODOTHYRONINE,FREEon - TRIIODOTHYRONINE,FREE 3.0 pg/mL Normal 2.3 - 4.2 [facility] Comment on above: Performed By: #### E SRWS #### [facility] [address] [place] [address] C-REACTIVE PROTEINon 06 023 C-REACTIVE PROTEIN 1.10 mg/dL Abnormal [facility] Comment on above: Result Comment: REF VALUE < 1.00 Performed By: #### C RP #### [address] [address] C-Reactive Proteinon 023 CRP [Mass/Vol] 1.10 mg/dL Abnormal [facility] Comment on above: REF VALUE < 1.00 CBC AND DIFFERENTIALon 02-09 % AUTOMATED IMMATURE GRAN 0.4 % Normal 0.0 - 0.9 [facility] Comment on above: Result Comment: Maria ture Granulocyte Count (IG) includes promyelocytes, myelocytes and metamyelocytes but does not include bands. Percent differential counts (%) should be interpreted in the context of the absolute cell counts (cells/L). Performed By: #### C BCDF #### [address] [address] Basophils (Bld) [#/Vol] 0.02 10*3/uL Normal 0.00 - 0.10 [facility] Comment on above: Performed By: #### C BCDF #### [address] [address] Basophils/100 WBC (Bld) 0.2 % Normal 0.0 - 2.0 [facility] Comment on above: Performed By: #### C BCDF #### [address] [address] Eosinophils (Bld) [#/Vol] 0.12 10*3/uL Normal 0.00 - 0.70 [facility] Comment on above: Performed By: #### C BCDF #### [address] [address] Eosinophils/100 WBC (Bld) 1.1 % Normal 0.0 - 6.0 [facility] Comment on above: Performed By: #### C BCDF #### [address] [address] Erythrocyte distribution width (RBC) [Ratio] 13.9 % Normal 11.5 - 14.5 [facility] Comment on above: Performed By: #### C BCDF #### [address] [address] Hematocrit (Bld) [Volume fraction] 44.8 % Normal 36.0 - 46.0 [facility] Comment on above: Performed By: #### C BCDF #### [address] [address] Hemoglobin (Bld) [Mass/Vol] 14.4 g/dL Normal 12.0 - 16.0 [facility] Comment on above: Performed By: #### C BCDF #### [address] [address] Lymphocytes (Bld) [#/Vol] 2.40 10*3/uL Normal 1.20 - 4.80 [facility] Comment on above: Performed By: #### C BCDF #### [address] [address] Lymphocytes/100 WBC (Bld) 21.8 % Normal 13.0 - 44.0 [facility] Comment on above: Performed By: #### C BCDF #### [address] [address] MCHC (RBC) [Mass/Vol] 32.1 g/dL Normal 32.0 - 36.0 [facility] Comment on above: Performed By: #### C BCDF #### [address] [address] MCV (RBC) [Entitic vol] 87 fL Normal 80 - 100 [facility] Comment on above: Performed By: #### C BCDF #### [address] [address] Monocytes (Bld) [#/Vol] 0.73 10*3/uL Normal 0.10 - 1.00 [facility] Comment on above: Performed By: #### C BCDF #### [address] [address] Monocytes/100 WBC (Bld) 6.6 % Normal 2.0 - 10.0 [facility] Comment on above: Performed By: #### C BCDF #### [address] [address] Neutrophils (Bld) [#/Vol] 7.68 10*3/uL Normal 1.20 - 7.70 [facility] Comment on above: Result Comment: Perc ent differential counts (%) should be interpreted in the context of the absolute cell counts (cells/L). Performed By: #### C BCDF #### [address] [address] Neutrophils/100 WBC (Bld) 69.9 % Normal 40.0 - 80.0 [facility] Comment on above: Performed By: #### C BCDF #### [address] [address] Platelets (Bld) [#/Vol] 186 10*3/uL Normal 150 - 450 [facility] Comment on above: Performed By: #### C BCDF #### [address] [address] RBC 5.13 x10E12/L Normal 4.00 - 5.20 [facility] Comment on above: Performed By: #### C BCDF #### [address] [address] WBC (Bld) [#/Vol] 11.0 10*3/uL Normal 4.4 - 11.3 [facility] Comment on above: Performed By: #### C BCDF #### [address] [address] CBC W Auto Differential pane l (Bld)on 02-09-2023 Basophils (Bld) [#/Vol] 0.02 10*3/uL [facility] Basophils/100 WBC (Bld) 0.2 % 0.0 - 2.0 % [facility] Eosinophils (Bld) [#/Vol] 0.12 10*3/uL [facility] Eosinophils/100 WBC (Bld) 1.1 % 0.0 - 6.0 % [facility] Erythrocyte distribution width (RBC) [Ratio] 13.9 % 11.5 - 14.5 % [facility] Hematocrit (Bld) [Volume fraction] 44.8 % 36.0 - 46.0 % [facility] Hemoglobin (Bld) [Mass/Vol] 14.4 g/dL 12.0 - 16.0 g/dL [facility] Immature granulocytes/100 WBC (Bld) 0.4 % 0.0 - 0.9 % [facility] Comment on above: Immature Granulocyte Count (IG) includes promyelocytes, myelocytes and metamyelocytes but does not include bands. Percent differential counts (%) should be interpreted in the context of the absolute cell counts (cells/L). Lymphocytes (Bld) [#/Vol] 2.40 10*3/uL [facility] Lymphocytes/100 WBC (Bld) 21.8 % 13.0 - 44.0 % [facility] MCHC (RBC) [Mass/Vol] 32.1 g/dL 32.0 - 36.0 g/dL [facility] MCV (RBC) [Entitic vol] 87 fL 80 - 100 fL [facility] Monocytes (Bld) [#/Vol] 0.73 10*3/uL [facility] Monocytes/100 WBC (Bld) 6.6 % 2.0 - 10.0 % [facility] Neutrophils (Bld) [#/Vol] 7.68 10*3/uL [facility] Comment on above: Percent differential counts (%) should be interpreted in the context of the absolute cell counts (cells/L). Neutrophils/100 WBC (Bld) 69.9 % 40.0 - 80.0 % [facility] Platelets (Bld) [#/Vol] 186 10*3/uL [facility] RBC (Bld) [#/Vol] 5.13 10*6/uL [facility] WBC (Bld) [#/Vol] 11.0 10*3/uL [facility] ESR Westergren method (Bld) [Velocity]on 02-09-2023 ESR (Bld) [Velocity] 14 mm/h 0 - 20 mm/h [facility] Free T4 [Mass/Vol]on 023 [facility] HEPATIC FUNCTION PANELon Albumin [Mass/Vol] 4.0 g/dL Normal 3.4 - 5.0 [facility] Comment on above: Performed By: #### H EPFP #### [address] [address] ALP [Catalytic activity/Vol] 130 U/L High 33 - 110 [facility] Comment on above: Performed By: #### H EPFP #### [address] [address] ALT [Catalytic activity/Vol] 47 U/L High 7 - 45 [facility] Comment on above: Result Comment: Vicenta ents treated with Sulfasalazine may generate falsely decreased results for ALT. Performed By: #### H EPFP #### [address] [address] AST [Catalytic activity/Vol] 39 U/L Normal 9 - 39 [facility] Comment on above: Performed By: #### H EPFP #### [address] [address] Bilirubin [Mass/Vol] 0.4 mg/dL Normal 0.0 - 1.2 [facility] Comment on above: Performed By: #### H EPFP #### [address] [address] Bilirubin.indirect [Mass/Vol] 0.1 mg/dL Normal 0.0 - 0.3 [facility] Comment on above: Performed By: #### H EPFP #### [address] [address] Protein [Mass/Vol] 6.9 g/dL Normal 6.4 - 8.2 [facility] Comment on above: Performed By: #### H EPFP #### [address] [address] Hepatic function 2000 panelo n 02-09-2023 Albumin BCP dye [Mass/Vol] 4.0 g/dL 3.4 - 5.0 g/dL [facility] ALP [Catalytic activity/Vol] 130 U/L High 33 - 110 U/L [facility] ALT With P-5'-P [Catalytic activity/Vol] 47 U/L High 7 - 45 U/L [facility] Comment on above: Patients treated wit h Sulfasalazine may generate falsely decreased results for ALT. AST With P-5'-P [Catalytic activity/Vol] 39 U/L 9 - 39 U/L [facility] Bilirubin [Mass/Vol] 0.4 mg/dL 0.0 - 1 .2 mg/dL [facility] Bilirubin.direct [Mass/Vol] 0.1 mg/dL 0.0 - 0.3 mg/dL [facility] Protein [Mass/Vol] 6.9 g/dL 6.4 - 8.2 g/dL [facility] No Panel Informationon 02-09 Interpretation and review of laboratory results Abnormal [facility] OPIATE/OPIOID/BENZO EXTENDED PRESCRIPTION COMPLIANCEon 02-09-2023 Lab Specimen Source Urine Normal [facility] Comment on above: Performed By: #### D SBOP #### [facility] [address] [place] [address] POCT UA Automated manually r esultedon 02-09-2023 Appearance (U) Clear Clear [facility] Work Phone: [phone] Glucose Test strip (U) [Mass/Vol] Negative NEGATIVE mg/dl [facility] Work Phone: [phone] Hemoglobin Ql (U) Negative NEGATIVE [facility] Work Phone: [phone] Interpretation and review of laboratory results Abnormal [facility] Work Phone: [phone] Leukocyte esterase Test strip Ql (U) Negative NEGATIVE [facility] Work Phone: [phone] Nitrite Ql (U) Negative NEGATIVE [facility] Work Phone: [phone] pH (U) 7.0 [pH] No Reference Range Established [facility] Work Phone: [phone] POC Bilirubin, Urine Negative NEGATIVE [facility] Work Phone: [phone] POC Color, Urine Yellow Straw, Yellow, Light Yellow [facility] Work Phone: [phone] POC Ketones, Urine TRACE Abnormal NEGATIVE mg/dl [facility] Work Phone: POC Protein, Urine Negative NEGATIVE, 30 (1+) mg/dl [facility] Work Phone: POC Specific [place], Urine 1.025 1.005 - 1.035 [facility] Work Phone: POC Urobilinogen, Urine 0.2 0.2, 1.0 EU/DL [facility] Work Phone: [facility] Work Phone: SEDIMENTATION RATE, ERYTHROC YTEon 02-09-2023 SEDIMENTATION RATE, ERYTHROCYTE 14 mm/h Normal 0 - 20 [facility] Comment on above: Performed By: #### E SRWS #### [place] [address] THYROXINE,FREEon 02-09-2023 THYROXINE,FREE 0.79 ng/dL Normal 0.61 - 1.12 [facility] Comment on above: Result Comment: Thyr oxine Free testing is performed using different testing methodology at [facility] than at [facility]. Direct result comparisons should only be made within the same method. . Biotin can cause falsely elevated free T4 results. Patients taking a Biotin dose of up to 10 mg/day should refrain from taking Biotin for 24 hours before sample collection. Patient taking a Biotin dose of >10 mg/day should consult with their physician or the laboratory before the blood draw. Performed By: #### T 4FRE #### [place] [address] Lab Specimen Source Normal [facility] Comment on above: Performed By: #### T 4FRE #### [place] [address] Performed By: #### E SRWS #### [place] [address] Performed By: #### H EPFP #### [address] [address] Performed By: #### C RP #### [place] [address] Performed By: #### C BCDF #### [address] [address] Performed By: #### T SH2 #### [address] [address] Performed By: #### D NADS #### [facility] [address] [place] [address] Performed By: #### C ITAB #### [facility] [address] [place] [address] TSHon 02-09-2023 TSH Qn 2.71 m[IU]/L Normal 0.44 - 3.98 [facility] Comment on above: Result Comment: TSH testing is performed using different testing methodology at [facility] than at other [facility]. Direct result comparisons should only be made within the same method. Performed By: #### T SH2 #### [place] [id number] TSH Qnon 02-09-2023 [facility] Thyroid Stimulating Hormoneo n 02-09-2023 TSH Qn 2.71 m[IU]/L [facility] Comment on above: TSH testing is perfo rmed using different testing methodology at [facility] than at other [facility]. Direct result comparisons should only be made within the same method. Thyroxine, Freeon 02-09-2023 Free T4 [Mass/Vol] 0.79 ng/dL 0.61 - 1. 12 ng/dL [facility] Comment on above: Thyroxine Free testi ng is performed using different testing methodology at [facility] than at other [facility]. Direct result comparisons should only be made within the same method. . Biotin can cause falsely elevated free T4 results. Patients taking a Biotin dose of up to 10 mg/day should refrain from taking Biotin for 24 hours before sample collection. Patient taking a Biotin dose of >10 mg/day should consult with their physician or the laboratory before the blood draw. Absolute lymphocyte countOrd ered By: Dr. Conn on 01-05-2023 Lymphocytes Auto (Unsp spec) [#/Vol] 1.69 10*3/uL 0.83-4.51 [facility] Basophil percentageOrdered B y: Dr. Conn on 01-05-2023 Basophils/100 WBC (Bld) 0.3 % 0-1 [facility] Chloride [Moles/Vol] 105 mmol/L 98-107 [facility] Eosinophils/100 WBC (Bld) 1.0 % 0-5 [facility] Glucose [Mass/Vol] 99 mg/dL 74-106 [facility] Neutrophils (Bld) [#/Vol] 5.5 10*3/uL 2.0-7.7 [facility] Neutrophils/100 WBC (Bld) 69.1 % 47-70 [facility] Potassium [Moles/Vol] 4.0 mmol/L 3.5-5.1 [facility] Sodium [Moles/Vol] 139 mmol/L 136-145 [facility] WBC (Bld) [#/Vol] 8.0 10*3/uL 4.4-11.0 [facility] Blood erythrocytes count (nu mber/volume)Ordered By: Dr. Conn on 01-05-2023 RBC (Bld) [#/Vol] 5.30 10*6/uL 4.2-5.4 [facility] Blood hemoglobin measurement (mass/volume)Ordered By: Dr. Conn on 01-05-2023 Hemoglobin (Bld) [Mass/Vol] 14.9 g/dL 12.0-15.0 [facility] Blood lymphocytes/100 leukoc ytesOrdered By: Dr. Conn on 01-05-2023 Lymphocytes/100 WBC (Bld) 21.3 % 19-41 [facility] Blood monocytes/100 leukocyt esOrdered By: Dr. Conn on 01-05-2023 Monocytes/100 WBC (Bld) 7.9 % 0-10 [facility] Blood platelet mean volumeOr dered By: Dr. Conn on 01-05-2023 Platelet mean volume (Bld) [Entitic vol] 12.0 fL 6.2-12.0 [facility] Determination of erythrocyte mean corpuscular volume (MCV)Ordered By: Dr. Conn on 01-05-2023 MCV (RBC) [Entitic vol] 86.8 fL 81-99 [facility] Hematocrit Auto (Bld) [Volum e fraction]Ordered By: Dr. Conn on 01-05-2023 Hematocrit (Bld) [Volume fraction] 46.0 % 37-47 [facility] Laboratory - Chemistry and C hemistry - challengeOrdered By: Dr. Conn on 01-05-2023 CO2 [Moles/Vol] 26.0 mmol/L 21.0-32.0 [facility] Urea nitrogen/Creatinine [Mass ratio] 13.4 mg/mg 10-20 [facility] - Hematology and Cell countsOrdered By: Dr. Conn on 01-05-2023 Erythrocyte distribution width (RBC) [Entitic vol] 42.5 fL 35.1-43.9 [facility] Erythrocyte distribution width (RBC) [Ratio] 13.4 % 11.6-14.6 [facility] Immature granulocytes/100 WBC (Bld) 0.400 % 0.0-0.9 [facility] Comment on above: IG% - Immature Granu locytes (promyelocytes, myelocytes and metamyelocytes) > 1% indicates that a LEFT SHIFT is Present. MCH (RBC) [Entitic mass] 28.1 pg 27.0-32.0 [facility] Nucleated RBC/100 WBC (Bld) [Ratio] 0 % 0-5 [facility] MCHC Auto (RBC) [Mass/Vol]Or dered By: Dr. Conn on 01-05-2023 MCHC (RBC) [Mass/Vol] 32.4 g/dL 32-36 [facility] No Panel InformationOrdered By: Dr. Conn on 01-05-2023 Estimated Creatinine Clearance Calc 105.53 ml/min [facility] Estimated GFR (MDRD) Amer 126 mL/min >60 [facility] Comment on above: GFR Calc Estimated GFR (MDRD) Non-Af Amer 104 mL/min >60 [facility] Comment on above: Non- GFR Calc Troponin I High Sensitivity 6 pg/mL 3.0-54.0 [facility] Comment on above: Please Note: New Uri t Units and Gender Specific Reference Ranges. For more information see Policy Stat Procedure [place] High Sensitivity Troponin (TNIH) and attachments. Platelets bldOrdered By: Dr. Conn on 01-05-2023 Platelets (Bld) [#/Vol] 171 10*3/uL 150-450 [facility] Serum or plasma calcium jimenez urement (mass/volume)Ordered By: Dr. Conn on 01-05-2023 Calcium [Mass/Vol] 9.1 mg/dL 8.5-10.1 [facility] Serum or plasma creatinine m easurement (mass/volume)Ordered By: Dr. Conn on 01-05-2023 Creatinine [Mass/Vol] 0.67 mg/dL 0.55-1.02 [facility] Comment on above: The validity of the calculated GFR & GFRAA in patients over 70 years has not been determined. Clinical correlation is essential. Serum or plasma urea nitroge n measurement (mass/volume)Ordered By: Dr. Conn on 01-05-2023 Urea nitrogen [Mass/Vol] 9 mg/dL 7-18 [facility] Thin prep Papanicolaou smear with manual screeningOrdered By: Dr. Conn on 01-05-2023 Thin prep Papanicolaou smear with manual screening 8 5-15 [facility] Absolute lymphocyte countOrd ered By: Dr. Sutton on 11-15-2022 Lymphocytes Auto (Unsp spec) [#/Vol] 2.02 10*3/uL 0.83-4.51 [facility] Basophil percentageOrdered B y: Dr. Sutton on 11-15-2022 Basophils/100 WBC (Bld) 0.1 % 0-1 [facility] Bilirubin [Mass/Vol] 0.40 mg/dL 0.20-1.00 [facility] Comment on above: For patients on eltr ombopag therapy, use of Dimension [employer] TBIL is not recommended. Chloride [Moles/Vol] 108 mmol/L 98-107 [facility] Eosinophils/100 WBC (Bld) 1.7 % 0-5 [facility] Glucose [Mass/Vol] 103 mg/dL 74-106 [facility] Comment on above: Fasting Glucose resu lt from 100 to 125 mg/dL suggests IMPAIRED HOMEOSTASIS per A.D.A. criteria. Neutrophils (Bld) [#/Vol] 5.4 10*3/uL 2.0-7.7 [facility] Neutrophils/100 WBC (Bld) 66.2 % 47-70 [facility] Potassium [Moles/Vol] 3.7 mmol/L 3.5-5.1 [facility] Protein [Mass/Vol] 7.8 g/dL 6.4-8.2 [facility] Sodium [Moles/Vol] 141 mmol/L 136-145 [facility] WBC (Bld) [#/Vol] 8.1 10*3/uL 4.4-11.0 [facility] Blood erythrocytes count (nu mber/volume)Ordered By: Dr. Sutton on 11-15-2022 RBC (Bld) [#/Vol] 5.22 10*6/uL 4.2-5.4 [facility] Blood hemoglobin measurement (mass/volume)Ordered By: Dr. Sutton on 11-15-2022 Hemoglobin (Bld) [Mass/Vol] 14.5 g/dL 12.0-15.0 [facility] Blood lymphocytes/100 leukoc ytesOrdered By: Dr. Sutton on 11-15-2022 Lymphocytes/100 WBC (Bld) 24.8 % 19-41 [facility] Blood monocytes/100 leukocyt esOrdered By: Dr[address] Sutton on 11-15-2022 Monocytes/100 WBC (Bld) 7.0 % 0-10 [facility] Blood platelet mean volumeOr dered By: Dr. Sutton on 11-15-2022 Platelet mean volume (Bld) [Entitic vol] 12.1 fL 6.2-12.0 [facility] Determination of erythrocyte mean corpuscular volume (MCV)Ordered By: Dr. Sutton on 11-15-2022 MCV (RBC) [Entitic vol] 87.9 fL 81-99 [facility] Hematocrit Auto (Bld) [Volum e fraction]Ordered By: Dr. Sutton on 11-15-2022 Hematocrit (Bld) [Volume fraction] 45.9 % 37-47 [facility] Laboratory - Chemistry and C hemistry - challengeOrdered By: Dr. Sutton on 11-15-2022 ALP [Catalytic activity/Vol] 127 U/L 45-117 [facility] ALT [Catalytic activity/Vol] 76 U/L 13-56 [facility] CO2 [Moles/Vol] 30.0 mmol/L 21.0-32.0 [facility] Globulin (S) [Mass/Vol] 4.5 g/dL 2.2-4.2 [facility] Urea nitrogen/Creatinine [Mass ratio] 14.7 mg/mg 10-20 [facility] Laboratory - Hematology and Cell countsOrdered By: Dr. Sutton on 11-15-2022 Erythrocyte distribution width (RBC) [Entitic vol] 44.6 fL 35.1-43.9 [facility] Erythrocyte distribution width (RBC) [Ratio] 13.8 % 11.6-14.6 [facility] Immature granulocytes/100 WBC (Bld) 0.200 % 0.0-0.9 [facility] Comment on above: IG% - Immature Granu locytes (promyelocytes, myelocytes and metamyelocytes) > 1% indicates that a LEFT SHIFT is Present. MCH (RBC) [Entitic mass] 27.8 pg 27.0-32.0 [facility] Nucleated RBC/100 WBC (Bld) [Ratio] 0 % 0-5 [facility] MCHC Auto (RBC) [Mass/Vol]Or dered By: Dr. Sutton on 11-15-2022 MCHC (RBC) [Mass/Vol] 31.6 g/dL 32-36 [facility] No Panel InformationOrdered By: Dr. Sutton on 11-15-2022 Estimated Creatinine Clearance Calc 94.28 ml/min [facility] Estimated GFR (MDRD) Amer 111 mL/min >60 [facility] Comment on above: GFR Calc Estimated GFR (MDRD) Non-Af Amer 92 mL/min >60 [facility] Comment on above: Non- GFR Calc Troponin I High Sensitivity 5 pg/mL 3.0-54.0 [facility] Comment on above: Please Note: New Uri t Units and Gender Specific Reference Ranges. For more information see Policy Stat Procedure [employer] High Sensitivity Troponin (TNIH) and attachments. Platelets bldOrdered By: Dr. Sutton on 11-15-2022 Platelets (Bld) [#/Vol] 189 10*3/uL 150-450 [facility] Serum or plasma albumin jimenez urement (mass/volume)Ordered By: Dr. Sutton on 11-15-2022 Albumin [Mass/Vol] 3.3 g/dL 3.2-5.0 [facility] Serum or plasma albumin/glob ulin mass ratioOrdered By: Dr. Sutton on 11-15-2022 Albumin/Globulin [Mass ratio] 0.7 {ratio} 0.9-2.4 [facility] Serum or plasma calcium jimenez urement (mass/volume)Ordered By: Dr. Sutton on 11-15-2022 Calcium [Mass/Vol] 9.3 mg/dL 8.5-10.1 [facility] Serum or plasma creatinine m easurement (mass/volume)Ordered By: Dr. Sutton on 11-15-2022 Creatinine [Mass/Vol] 0.75 mg/dL 0.55-1.02 [facility] Comment on above: The validity of the calculated GFR & GFRAA in patients over 70 years has not been determined. Clinical correlation is essential. Serum or plasma urea nitroge n measurement (mass/volume)Ordered By: Dr. Sutton on 11-15-2022 Urea nitrogen [Mass/Vol] 11 mg/dL 7-18 [facility] Thin prep Papanicolaou smear with manual screeningOrdered By: Dr. Sutton on 11-15-2022 Thin prep Papanicolaou smear with manual screening 57 U/L 15-37 [facility] Thin prep Papanicolaou smear with manual screening 3 5-15 [facility] XR FOOT GENERAL 3V AP/LAT/OB L RIGHTon 11-08-2022 [facility] XR Foot - right AP and Later al and obliqueon 11-08-2022 IMPRESSION: No acute radiographic abnormalities seen in the right foot. Access Specialist: YUVAL Transcribe Date/Time: Nov 08 2022 11:42A Dictated by : TROY CHUNG MD This examination was interpreted and the report reviewed and electronically signed by: TROY CHUNG MD on Nov 08 2022 11:45AM [facility] DIVISION OF RADIOLOGY * * *Final Report* * * DATE OF EXAM: Nov 08 2022 11:42AM WOX [id number] - XR FOOT 3V AP/LAT/OBL RT / PROCEDURE REASON: Foot pain, right * * * * Physician Interpretation * * * * EXAM TITLE: XR FOOT 3V AP/LAT/OBL RT EXAM DATE/TIME: 11/08/2022 11:42 AM COMPARISON: None CLINICAL INDICATION/HISTORY: Foot pain. TECHNIQUE: AP, lateral and oblique views of the right foot are presented. FINDINGS: No acute fractures or subluxations are noted. The joint spaces are well preserved. The mineralization of the bones is normal. There is no significant soft tissue swelling. DIVISION OF RADIOLOGY Provider, Shanti Wolff [facility] - 11/08/2022 * * *Final Report* * * DATE OF EXAM: Nov 08 2022 11:42AM WOX [id number] - XR FOOT 3V AP/LAT/OBL RT / PROCEDURE REASON: Foot pain, right * * * * Physician Interpretation * * * * EXAM TITLE: XR FOOT 3V AP/LAT/OBL RT EXAM DATE/TIME: 11/08/2022 11:42 AM COMPARISON: None CLINICAL INDICATION/HISTORY: Foot pain. TECHNIQUE: AP, lateral and oblique views of the right foot are presented. FINDINGS: No acute fractures or subluxations are noted. The joint spaces are well preserved. The mineralization of the bones is normal. There is no significant soft tissue swelling. IMPRESSION IMPRESSION: No acute radiographic abnormalities seen in the right foot. Access Specialist: PSCB Transcribe Date/Time: Nov 08 2022 11:42A Dictated by : TROY CHUNG MD This examination was interpreted and the report reviewed and electronically signed by: TROY CHUNG MD on Nov 08 2022 11:45AM EST [facility] Radiology Study observation (narrative) [facility] XR Foot - right AP and Later al and obliqueOrdered By: [facility] Provider on 11-08-2022 [facility] Office Visit (Internal Medic ine)on 10-17-2022 Follow-up visit Diagnoses/Problems Assessed COVID-19 (079.89) (U07.1) Cough (786.2) (R05.9) Chest congestion (786.9) (R09.89) Fatigue (780.79) (R53.83) Generalized anxiety disorder (300.02) (F41.1) Palpitations (785.1) (R00.2) Orders COVID-19 Start: Azithromycin 250 MG Oral Tablet (Zithromax Z-Bernardino); TAKE 2 TABLETS ON DAY 1 THEN TAKE 1 TABLET A DAY FOR 4 DAYS Rx By: Vargas Mujica; Dispense: 0 Days ; #:1 X 6 Tablet Pack; Refill: 0;For: COVID-19; JAKE = N; Verified Transmission to [facility]ACY #[id number]; Last Updated By: System, Mobile Complete; 10/17/2022 11:12:14 AM Patient Discussion/Summary Due to COVID 19 threat, virtual appointment completed with [employer] Joanna f/u in 1 week virtual COVID check (ok to double book) Provider Impressions 1.Complexity: More than 1 stable chronic condition addressed 2.Data: Tests interpreted and or ordered, took independent history or records reviewed 3.Risks: Moderate Risk due to nature of medical conditions /comorbidity or meds ordered or surgical procedure referral Reviewed labs and Testing on file Patient to follow diet low in cholesterol, fat, and sodium. Patient is advised to increase Exercise. Patient is recommended to lose weight. Reviewed Meds and discussed common side effects Continue as directed COVID - we discussed paxlovid but pt declines at this time will start with ABx, cough syrup, rest and fluids cont on vitamins and baby asprin call if symptoms worsen suggest follow up in 1 week for illness check Patient is strongly advised to be compliant with recommendations. Return to Clinic sooner if needed. Patient denies further questions/concerns at this time Chief Complaint An interactive audio and video telecommunication system which permits real time communications between the patient (at the originating site) and provider (at the distant site) was utilized to provide this telehealth service. Verbal consent was requested and obtained from CURLY COWART on this date, 10/17/2022 10:00 AM , for a telehealth visit. POS HOME COVID TEST THIS MORNING. C/O MCKINNEY,COUGH, PALPITATIONS, SINUS CONGESTION, RUNNY NOSE, SORE THROAT. Adult Risk Screening Initial Fall Risk Screening: CURLY has not fallen in the last 6 months. History of Present Illness Patient presents today for.... 1 COVID- symptoms started /mondayoct [address] rhionrrhea palp sinus congestion mild nausea no diarrhea, vomiting, fever, loss of taste/smell pos test this AM - 10/17/22 2 Med check anxiety - on effexor, elavil and ativan prn -- has stopped elavil. She is wanting to cut down on effexor so will taper to 75 mg daily x 2 + weeks and then every other day for 2 + weeks to d/c as tolerated pt has tried about everything she believes other than prozac (she believes as far as SSRI and SNRI) she has tried wellbutrin and little relief she denies trying abilify in the past known depression - she states is stable at this time with her meds synthroid - currently not on meds and most recent labs are WNL - she states she was cleared by the endo at this time HTN /LE edema - HCTZ changed to lasix and is needing it on occasion - typically daily at this time GERD - stable on PPI - elevated LFT - following with specialists elevated ferritin - has followed with specialists and states no further work up indicated no concern at that time- she believes her ferritin if further elevated post covid which I explained is commonly seen. Level has improved since bariatric Surgery post op Bariatric status - Apr 11 - Basic labs post op were completed [facility] (shaun) and states all were well (CBC, BMP, liver panel, ferritin, iron, folate, PTH, B vitamins, vit D. Labs are being done periodically and cont to follow up with the surgeon 3 Preventative Testing mammo - suggest age 40 DEXA - suggest age 50-55 colonoscopy - suggest age 45-50 PAP OARRS Report Last Screening Date: 03/30/2022 I have personally reviewed the OARRS report for CURLY COWART. I have considered the risks of abuse, dependence, addiction and diversion. Last urine drug screening date/ordered today: 05/25/2021 Date of the last Controlled Substance Agreement: 05/25/2021 Review of Systems Review of Systems Constitutional: No fever, No chills, No weakness, gen fatigue Eye: No blurring, No visual disturbances Ear/Nose/Mouth/Throat: No ear pain, nasal congestion ST Respiratory: cough SOB Cardiovascular: heart palp on occasion chest wall tenderness Gastrointestinal: , No vomiting, No diarrhea, No constipation nausea Genitourinary: No dysuria Hematology/Lymphatics: No swollen lymph glands Endocrine: No cold intolerance, No heat intolerance Immunologic: No recurrent fevers, No recurrent infections Musculoskeletal: chronic gen joint mucle pain - body habitus Integumentary: No rash, No pruritus Neurologic: Alert and Oriented x 4: headache Psychiatric anxiety with depression Active (more content not included)... Normal [employer] Tobacco Screening.on 02-20-2 023 Fall risk assessment a) No falls within the last year [facility] Work Phone: Tobacco use status CP b) No [facility] Work Phone: CBC panel Auto (Bld)on 10-10 Erythrocyte distribution width (RBC) [Ratio] 13.7 % 11.5 - 15.0 % [facility] Hematocrit (Bld) [Volume fraction] 41.4 % 36.0 - 46.0 % [facility] Hemoglobin (Bld) [Mass/Vol] 13.9 g/dL 11.5 - 15.5 g/dL [facility] MCH (RBC) [Entitic mass] 28.5 pg 26.0 - 34.0 pg [facility] MCHC (RBC) [Mass/Vol] 33.6 g/dL 30.5 - 36.0 g/dL [facility] MCV (RBC) [Entitic vol] 84.8 fL 80.0 - 100.0 fL [facility] Nucleated RBC (Bld) [#/Vol] <0.01 k/uL [facility] Platelet mean volume (Bld) [Entitic vol] 11.5 fL 9.0 - 12.7 fL [facility] Platelets (Bld) [#/Vol] 184 10*3/uL 150 - 400 k/uL [facility] RBC (Bld) [#/Vol] 4.88 10*6/uL 3.90 - 5.2 0 m/uL [facility] WBC (Bld) [#/Vol] 9.59 10*3/uL 3.70 - 11. 00 k/uL [facility] XR CHEST 2V FRONTAL/LATon [facility] XR Chest PA and Lateralon IMPRESSION: No acute radiographic abnormality. Access Specialist: PSCB Transcribe Date/Time: Sep 22 2022 1:49P Dictated by : TROY CHUNG MD This examination was interpreted and the report reviewed and electronically signed by: TROY CHUNG MD on Sep 22 2022 1:50PM [facility] DIVISION OF RADIOLOGY * * *Final Report* * * DATE OF EXAM: Sep 22 2022 1:46PM WOX [id number] - XR CHEST 2V FRONTAL/LAT / PROCEDURE REASON: Acute cough * * * * Physician Interpretation * * * * EXAMINATION: CHEST RADIOGRAPH (2 VIEW FRONTAL & LATERAL) CLINICAL HISTORY: Acute cough MQ: XC2_6 EXAM DATE/TIME: 09/22/2022 1:46 PM COMPARISON: Chest x-ray on 12/19/2020 RESULT: Lines, tubes, and devices: None. Lungs and pleura: No consolidation. No lung mass. No pleural effusion. No pneumothorax. Cardiomediastinal silhouette: Normal cardiomediastinal silhouette. Bones and soft tissues: Unremarkable. DIVISION OF RADIOLOGY Provider, [facility] - 09/22/2022 * * *Final Report* * * DATE OF EXAM: Sep 22 2022 1:46PM WOX 5291 - XR CHEST 2V FRONTAL/LAT / PROCEDURE REASON: Acute cough * * * * Physician Interpretation * * * * EXAMINATION: CHEST RADIOGRAPH (2 VIEW FRONTAL & LATERAL) CLINICAL HISTORY: Acute cough MQ: XC2_6 EXAM DATE/TIME: 09/22/2022 1:46 PM COMPARISON: Chest x-ray on 12/19/2020 RESULT: Lines, tubes, and devices: None. Lungs and pleura: No consolidation. No lung mass. No pleural effusion. No pneumothorax. Cardiomediastinal silhouette: Normal cardiomediastinal silhouette. Bones and soft tissues: Unremarkable. IMPRESSION IMPRESSION: No acute radiographic abnormality. Access Specialist: YUVAL Transcribe Date/Time: Sep 22 2022 1:49P Dictated by : TROY CHUNG MD This examination was interpreted and the report reviewed and electronically signed by: TROY CHUNG MD on Sep 22 2022 1:50PM [facility] Radiology Study observation (narrative) [facility] XR Chest PA and LateralOrder ed By: [facility] Provider on 09-22-2022 [facility] Office Visit (Internal Medic ine)on 09-20-2022 Follow-up visit Diagnoses/Problems Assessed Chest congestion (786.9) (R09.89) Cough (786.2) (R05.9) SOB (shortness of breath) on exertion (786.05) (R06.02) Orders Chest congestion, Cough Start: Doxycycline Hyclate 100 MG Oral Tablet; TAKE 1 TABLET EVERY 12 HOURS DAILY Rx By: Josselyn Roblero; Dispense: 7 Days ; #:14 Tablet; Refill: 0;For: Chest congestion, Cough; JAKE = N; Verified Transmission to [facility]Y #[id number]; Last Updated By: [employer]; 09/20/2022 2:22:26 PM Start: Benzonatate 200 MG Oral Capsule; TAKE 1 CAPSULE 3 TIMES DAILY NEEDED Rx By: Josselyn Roblero; Dispense: 7 Days ; #:21 Capsule; Refill: 0;For: Chest congestion, Cough; JAKE = N; Verified Transmission to [facility]/PHARMACY #[id number]; Last Updated By: [employer]; 09/20/2022 2:22:27 PM Patient Discussion/Summary 1 WEEK (VIRTUAL). Provider Impressions ADVISED TO DRINK MORE WARM LIQUIDS AND ELEVATE THE HEAD OF THE BED FOR SLEEP AND TO SLEEP WITH WARM HUMIDIFIER. ADVISED TO GARGLE WITH WARM SALTWATER AND TO APPLY WARM COMPRESSION TO SINUSES PRN . ADVISED FOR FREQUENT HANDWASHING ADVISED TO FOLLOW THE LOW FAT, LOW CALORIE DIET AND TO EAT SMALLER PORTIONS MORE FREQUENT SERVINGS. Chief Complaint An interactive audio and video telecommunication system which permits real time communications between the patient (at the originating site) and provider (at the distant site) was utilized to provide this telehealth service. Pt vv due to illness since Monday. States she has been having a head cold, cough, and chest pressure. Patient took a covid test on Monday which resulted negative. 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 History of Present IllnessVIRTUAL VISIT DUE TO COVID19 . COUGH WITH CHEST CONGESTION AND SOB ON EXERTION X 4 DAYS . HAD NEGATIVE HOME COVID TEST 3 DAYS AGO. DIDN'T GET THE COVID VACCINES. Review of Systems Constitutional: not feeling poorly, no fever, no recent weight gain and no recent weight loss. Eyes: no blurred vision and no diplopia. ENT: no hearing loss, no tinnitus, no earache, no sore throat, no hoarseness, no swollen glands in the neck and as noted in HPI. Cardiovascular: no chest pain, no tightness or heavy pressure, no shortness of breath, no palpitations and no lower extremity edema. Respiratory: no cough, not coughing up sputum, no wheezing that is consistent with asthma and as noted in HPI. Gastrointestinal: no change in bowel habits, no diarrhea, no constipation, no bloody stools, no nausea, no vomiting, no abdominal pain, no signs and symptoms of ulcer disease, no liane colored stools and no intolerance to fatty foods. Genitourinary: no urinary frequency, no dysuria, no burning sensation during urination and no hematuria. Musculoskeletal: no arthralgias, no joint stiffness, no muscle weakness, no back pain and no difficulty walking. Skin: no rashes, no change in skin color and pigmentation, no skin lesions and no skin lumps. Neurological: no headaches, no dizziness, no seizures, no tingling, no numbness, no signs and symptoms of stroke and no limb weakness. Psychiatric: no confusion, no memory lapses or loss, no depression and no sleep disturbances. Endocrine: no goiter, no thyroid disorder, no diabetes mellitus, no excessive thirst, no dry skin, no cold intolerance, no heat intolerance and no increased urinary frequency. Hematologic/Lymphatic: is not slow to heal, does not bleed easily, does not bruise easily, no thrombophlebitis, no anemia and no history of blood transfusion. All other systems have been reviewed and are negative for complaint. 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) Abnormal EKG (794.31) (R94.31) Anxiety (300.00) (F41.9) Bilateral hand numbness (782.0) (R20.0) BMI 60.0-69.9, adult (V85.44) (Z68.44) Cervicalgia (723.1) (M54.2) Chronic low back pain (724.2,338.29) (M54.50,G89.29) Class 3 severe obesity due to excess calories with serious comorbidity and body mass index (BMI) of 50.0 to 59.9 in adult (278.01,V85.43) (E66.01,Z68.43) Constipation (564.00) (K59.00) Costochondral pain (786.59) (R07.89) Cough (786.2) (R05.9) Deficiency of other vitamins (269.1) (E56.8) Depression, major, single episode, moderate (296.22) (F32.1) Dilated renal pelvis (593.89) (N28.89) Drug-induced constipation (564.09,E980.5) (K59.03) Dyspnea (786.09) (R06.00) Elevated ferritin level (790.6) (R79.89) Elevated LFTs (790.6) (R79.89) Fatigue (780.79) (R53.83) Fatty liver disease, nonalcoholic (571.8) (K76.0) Generalized anxiety disorder (300.02) (F41.1) GERD (gastroesophageal reflux disease) (530.81) (K21.9) Glucose intolerance (impaired glucose tolerance) (790.22) (R73.02) 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ARM[facility]Y #[id number]; Last Updated By: [employer]; 08/31/2022 9:19:38 AM Pleurisy Start: Azithromycin 250 MG Oral Tablet (Zithromax Z-Bernardino); TAKE 2 TABLETS ON DAY 1 THEN TAKE 1 TABLET A DAY FOR 4 DAYS Rx By: Vargas Mujica; Dispense: 0 Days ; #:1 X 6 Tablet Pack; Refill: 0;For: Pleurisy; JAKE = N; Verified Transmission to [facility]ARM[facility]Y #[id number]; Last Updated By: [employer]; 08/31/2022 9:19:39 AM Patient Discussion/Summary Due to COVID 19 threat, virtual appointment completed with [employer] joanna f/u as before we had said 6-12 mo with labs done with specialists Provider Impressions 1.Complexity: More than 1 stable chronic condition addressed 2.Data: Tests interpreted and or ordered, took independent history or records reviewed 3.Risks: Moderate Risk due to nature of medical conditions /comorbidity or meds ordered or surgical procedure referral Reviewed labs and Testing on file Patient to follow diet low in cholesterol, fat, and sodium. Patient is advised to increase Exercise. Patient is recommended to lose weight. Reviewed Meds and discussed common side effects Continue as directed Reviewed OARRS and is consistent and appropriate with prescribed medicines. We discussed and considered risks for abuse, addiction, diversion, dependence. Medicine is felt to be clinically appropriate based on documented diagnosis contract and urine up to date apr 2021 chest pain - fibro?- will cont to monitor and consider post covid but pt declines referral pt to cont to follow with specialists I do believe she is suffering from pleurisy as well - will do flexeril, tylenol in moderation given her hx and will do ABx in case this is infectious consider follow up in 1-2 weeks for check - pt to call if needed Patient is strongly advised to be compliant with recommendations. Return to Clinic sooner if needed. Patient denies further questions/concerns at this time Chief Complaint An interactive audio and video telecommunication system which permits real time communications between the patient (at the originating site) and provider (at the distant site) was utilized to provide this telehealth service. Verbal consent was requested and obtained from CURLY SOFYA on this date, 08/31/2022 08:40 AM , for a telehealth visit. Pt vv for er f/u pleurisy-shaun. States she still feels SOB occasionally and chest pain. Serves no further complaints History of Present IllnessPatient presents today for.... 1 follow up [facility] about 2 weeks ago for pleurisy pt states they did not give her any meds but sent her home- work up was ok she cont to note some symptoms of CP and SOB she recently was rx prednisone for another reason but had a more serious allergic reaction so was not given prednisone she recently had bariatric surgery so cannot take NSAID she does have flexeril but denies taking them she does admit to some illness symptoms as well - nasal congestion, rhionrrhea and maybe this is more of infectious induced pleurisy - she deneis being on ABx recently she does admit to more stress- nephew was in serious car accident and life flighted - broke his neck and back 2 Med check anxiety - on effexor, elavil and ativan prn -- has stopped elavil. She is wanting to cut down on effexor so will taper to 75 mg daily x 2 + weeks and then every other day for 2 + weeks to d/c as tolerated pt has tried about everything she believes other than prozac (she believes as far as SSRI and SNRI) she has tried wellbutrin and little relief she denies trying abilify in the past known depression - she states is stable at this time with her meds synthroid - currently not on meds and most recent labs are WNL - she states she was cleared by the endo at this time HTN /LE edema - HCTZ changed to lasix and is needing it on occasion - typically daily at this time GERD - stable on PPI - elevated LFT - following with specialists elevated ferritin - has followed with specialists and states no further work up indicated no concern at that time- she believes her ferritin if further elevated post covid which I explained is commonly seen. Level has improved since bariatric Surgery post op Bariatric status - Apr 11 - Basic labs post op were completed [facility] ([facility]un) and states all were we (more content not included)... Normal [employer] Tobacco Screening.on 023 Tobacco use status [facility] b) No [facility] Work Phone: No Panel Informationon 08-27 3.07 1 above high threshold <2.54 [facility] Medicine Work Phone: Comment on above: Reference:1. [facility] Cholesterol Education Program ATP III Guideline At-A-Glance Quick Desk Reference: National Heart, Lung, and Blood [place]. National Institutes of Health. 2001: NIH Publication No. 01-3305.2. An International Atherosclerosis Society position paper: global recommendations for the management of dyslipidemia: executive summary, Atherosclerosis. 2014: 232(2):410-413. 129 mg/dL above high threshold <100 [facility] Medicine Work Phone: Comment on above: <100 mg/dL, Optimal 100-129 mg/dL, Near optimal/above optimal 130-159 mg/dL, Borderline high 160-189 mg/dL, High>189 mg/dL, Very highSecondary prevention optimal LDL Cholesterol levels are recommended to be < 70 mg/dL 4.48 1 Normal <5.10 [facility] Work Phone: 17 mg/dL Normal <30 [facility] Medicine Work Phone: 10 {hrs} Normal [facility] Work Phone: 146 mg/dL above high threshold <130 [facility] Medicine Work Phone: Comment on above: <130 mg/dL, Optimal 130-159 mg/dL, Near optimal/above optimal 160-189 mg/dL, Borderline high 190-219 mg/dL, High>219 mg/dL, Very highSecondary prevention optimal non HDL Cholesterol levels are recommended to be <100 mg/dL 42 mg/dL Normal >39 [facility] Medicine Work Phone: Comment on above: 40-59 mg/dL, Accepta ble>59 mg/dL, High: Negative risk factor for coronary heart disease<40 mg/dL, Low: Positive risk factor for coronary heart disease 84 mg/dL Normal <150 [facility] Work Phone: Comment on above: <150 mg/dL, Normal 1 50-199 mg/dL, Borderline high 200-499 mg/dL, High>499 mg/dL, Very high 188 mg/dL Normal <200 [facility] Work Phone: Comment on above: <200 mg/dL, Desirabl e 200-239 mg/dL, Borderline high>239 mg/dL, High 1.1 ng/dL Normal 0.9-1.7 [facility] Work Phone: 1.850 {mIU/L} Normal 0.270-4.200 [facility] Internal Medicine Work Phone: Comment on above: If the patient is pr egnant, TSH reference range varies by gestational period:First Trimester (weeks 9-12): 0.180-2.990 mIU/LSecond Trimester: 0.110-3.980 mIU/LThird Trimester: 0.480-4.710 mIU/LDjamie Archer et al. A Practical Approach for the Verifications and Determination of Site- and Trimester-Specific Reference Intervals for Thyroid Function tests in . Thyroid, 2019:29:3:412-420. Cristhian Wall, et al. 2017 Guidelines of the [place] Thyroid Association for the Diagnosis and Management of Thyroid Disease during and the . Thyroid, 2017:27:3:315-389. Absolute lymphocyte countOrd ered By: Dr. Espinoza on 08-17-2022 Lymphocytes Auto (Unsp spec) [#/Vol] 1.55 10*3/uL 0.83-4.51 [facility] Basophil percentageOrdered B y: Dr. Espinoza on 08-17-2022 Basophils/100 WBC (Bld) 0.2 % 0-1 [facility] Chloride [Moles/Vol] 106 mmol/L 98-[address] [facility] [facility] Eosinophils/100 WBC (Bld) 1.4 % 0-5 [facility] Glucose [Mass/Vol] 99 mg/dL 74-106 [place] [facility] Neutrophils (Bld) [#/Vol] 6.4 10*3/uL 2.0-7.7 [facility] Neutrophils/100 WBC (Bld) 74.1 % 47-70 [facility] Potassium [Moles/Vol] 4.0 mmol/L 3.5-5.1 [facility] Sodium [Moles/Vol] 138 mmol/L 136-145 [facility] WBC (Bld) [#/Vol] 8.6 10*3/uL 4.4-11.0 [facility] Blood erythrocytes count (nu mber/volume)Ordered By: Dr. Espinoza on 08-17-2022 RBC (Bld) [#/Vol] 4.92 10*6/uL 4.2-5.4 [facility] Blood hemoglobin measurement (mass/volume)Ordered By: Dr. Espinoza on 08-17-2022 Hemoglobin (Bld) [Mass/Vol] 13.8 g/dL 12.0-15.0 [facility] Blood lymphocytes/100 leukoc ytesOrdered By: Dr. Espinoza on 08-17-2022 Lymphocytes/100 WBC (Bld) 18.1 % 19-41 [facility] Blood monocytes/100 leukocyt esOrdered By: Dr. Espinoza on 08-17-2022 Monocytes/100 WBC (Bld) 6.0 % 0-10 [facility] Blood platelet mean volumeOr dered By: Dr. Espinoza on 08-17-2022 Platelet mean volume (Bld) [Entitic vol] 11.6 fL 6.2-12.0 [facility] Determination of erythrocyte mean corpuscular volume (MCV)Ordered By: Dr. Espinoza on 08-17-2022 MCV (RBC) [Entitic vol] 86.0 fL 81-99 [facility] Hematocrit Auto (Bld) [Volum e fraction]Ordered By: Dr. Espinoza on 08-17-2022 Hematocrit (Bld) [Volume fraction] 42.3 % 37-47 [facility] Laboratory - Chemistry and C hemistry - challengeOrdered By: Dr. Espinoza on 08-17-2022 CO2 [Moles/Vol] 27.0 mmol/L 21.0-32.0 [facility] Urea nitrogen/Creatinine [Mass ratio] 19.8 mg/mg 10-20 [facility] - Hematology and Cell countsOrdered By: Dr. Espinoza on 08-17-2022 Erythrocyte distribution width (RBC) [Entitic vol] 45.9 fL 35.1-43.9 [facility] Erythrocyte distribution width (RBC) [Ratio] 14.6 % 11.6-14.6 [facility] Immature granulocytes/100 WBC (Bld) 0.200 % 0.0-0.9 [facility] Comment on above: IG% - Immature Granu locytes (promyelocytes, myelocytes and metamyelocytes) > 1% indicates that a LEFT SHIFT is Present. MCH (RBC) [Entitic mass] 28.0 pg 27.0-32.0 [facility] Nucleated RBC/100 WBC (Bld) [Ratio] 0 % 0-5 [facility] MCHC Auto (RBC) [Mass/Vol]Or dered By: Dr. Espinoza on 08-17-2022 MCHC (RBC) [Mass/Vol] 32.6 g/dL 32-36 [facility] No Panel InformationOrdered By: Dr. Espinoza on 08-17-2022 Estimated Creatinine Clearance Calc 107.13 ml/min [facility] Estimated GFR (MDRD) Amer 129 mL/min >60 [facility] Comment on above: GFR Calc Estimated GFR (MDRD) Non-Af Amer 107 mL/min >60 [facility] Comment on above: Non- GFR Calc Troponin I High Sensitivity 6 pg/mL 3.0-54.0 [facility] Comment on above: Please Note: New Uri t Units and Gender Specific Reference Ranges. For more information see Policy Stat Procedure [place] High Sensitivity Troponin (TNIH) and attachments. Platelets bldOrdered By: Dr. Espinoza on 08-17-2022 Platelets (Bld) [#/Vol] 173 10*3/uL 150-450 [facility] Serum or plasma calcium jimenez urement (mass/volume)Ordered By: Dr. Espinoza on 08-17-2022 Calcium [Mass/Vol] 9.0 mg/dL 8.5-10.1 [facility] Serum or plasma creatinine m easurement (mass/volume)Ordered By: Dr. Espinoza on 08-17-2022 Creatinine [Mass/Vol] 0.66 mg/dL 0.55-1.02 [facility] Comment on above: The validity of the calculated GFR & GFRAA in patients over 70 years has not been determined. Clinical correlation is essential. Serum or plasma urea nitroge n measurement (mass/volume)Ordered By: Dr. Espinoza on 08-17-2022 Urea nitrogen [Mass/Vol] 13 mg/dL 7-18 [facility] Thin prep Papanicolaou smear with manual screeningOrdered By: Dr. 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) Hypercholesteremia (272.0) (E78.00) Cervicalgia (723.1) (M54.2) Vitamin D deficiency (268.9) (E55.9) Palpitations (785.1) (R00.2) BRISEYDA on CPAP (327.23,V46.8) (G47.33,Z99.89) Fatty liver disease, nonalcoholic (571.8) (K76.0) GERD (gastroesophageal reflux disease) (530.81) (K21.9) Glucose intolerance (impaired glucose tolerance) (790.22) (R73.02) Generalized anxiety disorder (300.02) (F41.1) Elevated LFTs (790.6) (R79.89) Class 3 severe obesity due to excess calories with serious comorbidity and body mass index (BMI) of 50.0 to 59.9 in adult (278.01,V85.43) (E66.01,Z68.43) Orders Cervicalgia Start: Cyclobenzaprine HCl - 10 MG Oral Tablet; TAKE 1 TABLET TWICE DAILY NEEDED Rx By: Vargas Mujica; Dispense: 10 Days ; #:20 Tablet; Refill: 0;For: Cervicalgia; JAKE = N; Verified Transmission to [facility][id number]; Last Updated By: Jeanette Gracia; 07/27/2022 8:57:39 AM Start: predniSONE 10 MG Oral Tablet; take 2 tab po tid x 3 days then 1 tab po tid x 3 days then 1 tab bid x 3 days then 1 tab daily x 3 days Rx By: Vargas Mujica; Dispense: 0 Days ; #:36 Tablet; Refill: 0;For: Cervicalgia; JAKE = N; Verified Transmission to [facility] #4605; Last Updated By: Kate GraciaMonesbat; 07/27/2022 8:57:41 AM Depression, major, single episode, moderate Renew: Venlafaxine HCl ER 75 MG Oral Capsule Extended Release 24 Hour; Take 1 capsule twice daily Rx By: Vargas Mujica; Dispense: 30 Days ; #:60 Capsule; Refill: 2;For: Depression, major, single episode, moderate; JAKE = N; Verified Transmission to [facility] #4605; Last Updated By: Kate GraciaMonesbat; 07/27/2022 8:57:39 AM Shahzad's disease T4 - Free Thyroxine, Serum; Status:Active; Requested for:27Jul2022; Perform:Lab Services - Lab To Draw (Blood Test); Due:[id number];Ordered; For:Shahzad's disease; Ordered By:Vargas Mujica; TSH - Thyroid Stimulating Hormone, Serum; Status:Active; Requested for:27Jul2022; Perform:Lab Services - Lab To Draw (Blood Test); Due:[id number];Ordered; For:Shahzad's disease; Ordered By:Vargas Mujica; Hypercholesteremia Lipid Panel; Status:Active; Requested for:27Jul2022; Perform:Lab Services - Lab To Draw (Blood Test); Due:[id number];Ordered; For:Hypercholesteremia ; Ordered By:Vargas Mujica; Lower extremity edema, Palpitations, Shortness of breath Renew: Furosemide 20 MG Oral Tablet; TAKE 1 TABLET DAILY X 7 DAYS THEN PRN EDEMA Rx By: Vargas Mujica; Dispense: 90 Days ; #:90 Tablet; Refill: 3;For: Lower extremity edema, Palpitations, Shortness of breath; JAKE = N; Verified Transmission to [facility] #4605; Last Updated By: Kate GraciaMonesbat; 07/27/2022 8:57:39 AM Shortness of breath Renew: Albuterol Sulfate HFA 108 (90 Base) MCG/ACT Inhalation Aerosol Solution; INHALE 1 TO 2 PUFFS EVERY 6 HOURS NEEDED Rx By: Vargas Mujica; Dispense: 0 Days ; #:1 X 6.7 GM Inhaler; Refill: 1;For: Shortness of breath; JAKE = N; Verified Transmission to [facility] #0554; Last Updated By: SystemJeanette; 07/27/2022 8:57:35 AM Patient Discussion/Summary f/u in 6-12 mo with labs done with her specialists pt to have labs done now labs at [facility] lipid - hyperchol TSH /FREE t4 Provider Impressions 1.Complexity: More than 1 stable chronic condition addressed 2.Data: Tests interpreted and or ordered, took independent history or records reviewed 3.Risks: Moderate Risk due to nature of medical conditions /comorbidity or meds ordered or surgical procedure referral Reviewed labs and Testing on file Patient to follow diet low in cholesterol, fat, and sodium. Patient is advised to increase Exercise. Patient is recommended to lose weight. Reviewed Meds and discussed common side effects Continue as directed Reviewed OARRS and is consistent and appropriate with prescribed medicines. We discussed and considered risks for abuse, addiction, diversion, dependence. Medicine is felt to be clinically appropriate based on documented diagnosis contract and urine up to date apr 2021 chest pain - fibro?- will cont to monitor and consider post covid but pt declines referral pt to cont to follow with specialists will aim to have labs - thyroid and lipid done in near future and plan to follow other labs she has done with her specialists cervicalgia - given limitation with meds - cont tx naturally and will do short supply of prednisone and flexeril for prn consider follow up in 2-4 weeks -pt to call if needed Patient is strongly advised to be compliant with recommendations. Return to Clinic sooner if needed. Patient denies further questions/concerns at this time Chief Complaint F/U AND DISCUSS MEDS History of Present IllnessPatient presents today for.... 1 Med check anxiety - on effexor, elavil and ativan prn -- has stopped elavil. She is wanting to cut down on effexor so will taper to 75 mg daily x 2 + weeks and then every ot (more content not included)... Normal [employer] Tobacco Screening.on 022 Fall risk assessment a) No falls within the last year [facility] Work Phone: Tobacco use status [facility] b) No [facility] Work Phone: CT ABD/PEL W IVCONon 022 [facility] CHEST 2 VIEW PA AND LATon CHEST 2 VIEW PA AND LAT Patient Name: CURLY COWART STUDY: TH CHEST 2 VIEW PA AND LAT; 03/30/2022 8:08 am INDICATION: PRE OP TESTING Z01.818: Pre-op testing. COMPARISON: 07/23/2020 ACCESSION NUMBER(S): [id number] ORDERING CLINICIAN: VARGAS MUJICA FINDINGS: PA and lateral radiographs of the chest were provided. CARDIOMEDIASTINAL SILHOUETTE: Cardiomediastinal silhouette is stable in size and configuration. LUNGS: Lungs are clear. ABDOMEN: No remarkable upper abdominal findings. BONES: No acute osseous changes. IMPRESSION: 1. No evidence of acute cardiopulmonary process. Electronically signed by: PAN URIAS MD [facility] - Chemistry and C hemistry - challengeon 03-30-2022 TSH Qn 3.76 m[IU]/L See Below [facility] Work Phone: Comment on above: Reference Range: 0.4 4 - 3.98 TSH testing is performed using different testing methodology at [facility] than at other [facility]. Direct result comparisons should only be made within the same method. 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) Hepatomegaly (789.1) (R16.0) Malaise and fatigue (780.79) (R53.81,R53.83) Medication management (V58.69) (Z79.899) Orders Anxiety, PTSD (post-traumatic stress disorder) Renew: LORazepam 1 MG Oral Tablet; TAKE 1 TABLET 3 times daily PRN anxiety Rx By: Vargas Mujica; Dispense: 20 Days ; #:60 Tablet; Refill: 0;For: Anxiety, PTSD (post-traumatic stress disorder); JAKE = N;EPCS Digital Signature Failed; Msg to Pharmacy: void script 30 days from written date, OARRS reviewed Patient Discussion/Summary f/u in 1-2 mo with med check and post op check up Provider Impressions 1.Complexity: More than 1 stable chronic condition addressed 2.Data: Tests interpreted and or ordered, took independent history or records reviewed 3.Risks: Moderate Risk due to nature of medical conditions /comorbidity or meds ordered or surgical procedure referral Reviewed labs and Testing on file Patient to follow diet low in cholesterol, fat, and sodium. Patient is advised to increase Exercise. Patient is recommended to lose weight. Reviewed Meds and discussed common side effects Continue as directed Reviewed OARRS and is consistent and appropriate with prescribed medicines. We discussed and considered risks for abuse, addiction, diversion, dependence. Medicine is felt to be clinically appropriate based on documented diagnosis contract and urine up to date apr 2021 chest pain - fibro?- will cont to monitor pt to cont to follow with specialists Patient is strongly advised to be compliant with recommendations. Return to Clinic sooner if needed. Patient denies further questions/concerns at this time Pt denies new CP, SOB, fever, unexplainable loss of weight, night sweats or other symptoms that feels would negatively impact her proceeding with surgery. 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 Chief Complaint 3-6 MO MED CHECK AND PRE OP. LABS AND CXR DONE THIS MORNING History of Present IllnessPatient presents today for.... 1 Preop clearance for gastric sleeve with [facility] scheduled for 08/16/21- was canceled.....now her pre op clearance testing with her dr is apr 04 and surgery is set for apr 11, 2022 testing done included in JUL 2021 EKG in office NSR - possible L atrial enlargement CXR - no acute cardiopulm process MRSA - neg urine culture- neg PT/INR13.2 and 1.1 Given these findings I did not approve her as I wanted clearance from her specialists. She then developed COVID in Dec as well so things were put on hold. she is now cleared by her other specialists (per patient) Mar 2022 labs bariatric provider ordered are pending - to be done apr 04 TSH - WNl CXR - pending Per telephone message she was to have COVID test, CBC, type and screen, BMP, and albumin for pre-op that her dr was ordering and she was to bring a copy of these labs to her visit for pre-op - this has not been completed yet and set to do later this month pt states she has been cleared by cardio ( Claudy), pulm (Ki), furrier shop supervisor (Charles) pt states they believe she will benefit from this surgery in more than one way 2 to review liver labs 3 Med check anxiety - on effexor, elavil and ativan prn - pt has tried about everything she believes other than prozac (she believes as far as SSRI and SNRI) she has tried wellbutrin and little relief she denies trying abilify in the past known depression - she states is stable at this time with her meds synthroid - currently not on meds and most recent labs are WNL - she states she was cleared by the endo at this time HTN /LE edema - LE has exacerbated. She is on HCTZ but denies being on lasix GERD - stable on PPI - elevated LFT - following with specialists elevated ferritin - has followed with specialists and states no further work up indicated no concern at that time- she believes her ferritin if further elevated post covid which I explained is commonly seen 4 Post COVID concerns Bariatric sleeve - surgery was placed on hold given COVID in DEC and she cont to struggle with prob She has since followed with a liver specialists and states he has cleared her but is set for liver biopsy during the bariatric procedure SOBE - she was referred to pulm and states was cleared as well cardio - pt states she has since seen her cardio and was cleared as well. he does not believe her current CP symptoms are cardio related but rather musc (more content not included)... Normal [employer] Radiologyon 03-30-2022 XR Chest 2 Views Normal [facility] Work Phone: TSH WITH REFLEX TO FREE T4 I F ABNORMALon 03-30-2022 TSH Qn 3.76 m[IU]/L Normal 0.44 - 3.98 [facility] Comment on above: Result Comment: TSH testing is performed using different testing methodology at [facility] than at other [facility]. Direct result comparisons should only be made within the same method. Performed By: #### E SRWS #### [place] [id number] Tobacco Screening.on 022 Fall risk assessment b) One or more fall s in the last year [facility] Work Phone: Tobacco use status [facility] b) No [facility] Work Phone: AMMONIAon 01-01-2022 Ammonia (P) [Moles/Vol] 33 umol/L Normal [facility] Comment on above: Result Comment: . REFERENCE VALUES DAY 1 to DAY 7 <110 DAY 8 to DAY 14 < 90 DAY 15 to ADULT 16-53 Performed By: #### A MM #### [address] [address] Ammonia, Plasmaon 01-01-2022 Ammonia (P) [Moles/Vol] 33 umol/L [facility] Work Phone: Comment on above: .REFERENCE VALUESDAY 1 to DAY 7 <110DAY 8 to DAY 14 < 90DAY 15 to ADULT 16-53 ANTI-LKMon 12-31-2021 ANTI-LKM <5.0 Normal [facility] Comment on above: Result Comment: ANTI -LKM:Liver/Kidney Microsome Type 1 Antibodies, Serum REFERENCE VALUE <=20.0 (Negative) Test Performed by: [facility] - [address] [address] Oxygen Therapist: Barry Lopez M.D. Ph.D.; CLIA# [id number] Performed By: #### A LKM #### [facility] [address] [place] [address] ANTIMITOCHONDRIAL ABon 12-29 ANTIMITOCHONDRIAL AB Negative Normal NEGATIVE [facility] Comment on above: Performed By: #### M ITAB #### [facility] [address] [place] [address] ANTISMOOTH MUSCLE ABon 12-29 ANTISMOOTH MUSCLE AB Positive Normal NEGATIVE [facility] Comment on above: Performed By: #### E SRWS #### [address] [address] ANTISMOOTH MUSCLE TITER 1:20 Normal [facility] Comment on above: Performed By: #### E SRWS #### [address] [address] HEPATITIS PANEL,ACUTE (HCFA) on 12-29-2021 HEPATITIS B CORE AB,IGM Non-Reactive Normal NONREACTIVE [facility] Comment on above: Result Comment: Resu lts from patients taking biotin supplements or receiving high-dose biotin therapy should be interpreted with caution due to possible interference with this test. Providers may contact their local laboratory for further information. Performed By: #### H EPA2 #### [facility] [address] [place] [address] HEPATITIS C AB Non-Reactive Normal NONREACTIVE [facility] Comment on above: Result Comment: Resu lts from patients taking biotin supplements or receiving high-dose biotin therapy should be interpreted with caution due to possible interference with this test. Providers may contact their local laboratory for further information. Performed By: #### H EPA2 #### [facility] [address] [place] [address] HEPATITIS A AB-IGM Non-Reactive Normal NONREACTIVE [facility] Comment on above: Result Comment: Biot in interference may cause falsely decreased results. Patients taking a Biotin dose of up to 5 mg/day should refrain from taking Biotin for 24 hours before sample collection. Providers may contact their local laboratory for further information. Performed By: #### H EPA2 #### [facility] [address] [place] [address] HEP.B SURFACE AG Non-Reactive Normal NONREACTIVE [facility] Comment on above: Result Comment: Biot in interference may cause falsely decreased results. Patients taking a Biotin dose of up to 5 mg/day should refrain from taking Biotin for 24 hours before sample collection. Providers may contact their local laboratory for further information. Performed By: #### H EPA2 #### [facility] [address] [place] [address] BNPon 12-28-2021 Natriuretic peptide B (Bld) [Mass/Vol] 16 pg/mL Normal 0 - 99 [facility] Comment on above: Result Comment: . <1 00 pg/mL - Heart failure unlikely 100-299 pg/mL - Intermediate probability of acute heart . failure exacerbation. Correlate with clinical . context and patient history. >=300 pg/mL - Heart Failure likely. Correlate with clinical . context and patient history. BNP testing is performed using different testing methodology at [facility] than at other [facility]. Direct result comparisons should only be made within the same method. Performed By: #### B NP2 #### [address] [address] CBC AND DIFFERENTIALon 12-28 Basophils (Bld) [#/Vol] 0.00 10*3/uL Normal 0.00 - 0.10 [facility] Comment on above: Performed By: #### E SRWS #### [address] [address] Basophils/100 WBC (Bld) 0.4 % Normal 0.0 - 2.0 [facility] Comment on above: Performed By: #### E SRWS #### [address] [address] Eosinophils (Bld) [#/Vol] 0.20 10*3/uL Normal 0.00 - 0.70 [facility] Comment on above: Performed By: #### E SRWS #### [address] [address] Eosinophils/100 WBC (Bld) 1.7 % Normal 0.0 - 6.0 [facility] Comment on above: Performed By: #### E SRWS #### [address] [address] Erythrocyte distribution width (RBC) [Ratio] 15.2 % High 11.5 - 14.5 [facility] Comment on above: Performed By: #### E SRWS #### [address] [address] Hematocrit (Bld) [Volume fraction] 43.2 % Normal 36.0 - 46.0 [facility] Comment on above: Performed By: #### E SRWS #### [address] [address] Hemoglobin (Bld) [Mass/Vol] 14.6 g/dL Normal 12.0 - 16.0 [facility] Comment on above: Performed By: #### E SRWS #### [address] [address] Lymphocytes (Bld) [#/Vol] 2.40 10*3/uL Normal 1.20 - 4.80 [facility] Comment on above: Performed By: #### E SRWS #### [address] [address] Lymphocytes/100 WBC (Bld) 25.5 % Normal 13.0 - 44.0 [facility] Comment on above: Performed By: #### E SRWS #### [address] [address] MCHC (RBC) [Mass/Vol] 33.9 g/dL Normal 32.0 - 36.0 [facility] Comment on above: Performed By: #### E SRWS #### [address] [address] MCV (RBC) [Entitic vol] 86 fL Normal 80 - 100 [facility] Comment on above: Performed By: #### E SRWS #### [address] [address] Monocytes (Bld) [#/Vol] 0.70 10*3/uL Normal 0.10 - 1.00 [facility] Comment on above: Performed By: #### E SRWS #### [address] [address] Monocytes/100 WBC (Bld) 7.1 % Normal 2.0 - 10.0 [facility] Comment on above: Performed By: #### E SRWS #### [address] [address] Neutrophils (Bld) [#/Vol] 6.00 10*3/uL Normal 1.20 - 7.70 [facility] Comment on above: Result Comment: Perc ent differential counts (%) should be interpreted in the context of the absolute cell counts (cells/L). Performed By: #### E SRWS #### [address] [address] Neutrophils/100 WBC (Bld) 65.3 % Normal 40.0 - 80.0 [facility] Comment on above: Performed By: #### E SRWS #### [address] [address] NUCLEATED RBC 0.1 /100 WBC Normal [facility] Comment on above: Performed By: #### E SRWS #### [address] [address] Platelets (Bld) [#/Vol] 253 10*3/uL Normal 150 - 450 [facility] Comment on above: Performed By: #### E SRWS #### [address] [address] RBC 5.04 x10E12/L Normal 4.00 - 5.20 [facility] Comment on above: Performed By: #### E SRWS #### [address] [address] WBC (Bld) [#/Vol] 9.3 10*3/uL Normal 4.4 - 11.3 [facility] Comment on above: Performed By: #### E SRWS #### [address] [address] Complete Blood Count + Diffe rentialon 12-28-2021 Basophils/100 WBC (Bld) 0.4 % 0.0 - 2.0 [facility] Work Phone: Erythrocyte distribution width (RBC) [Ratio] 15.2 % above high threshold See Below [facility] Work Phone: Comment on above: Reference Range: 11. 5 - 14.5 Hematocrit (Bld) [Volume fraction] 43.2 % See Below [facility] Work Phone: [phone] Comment on above: Reference Range: 36. 0 - 46.0 Hemoglobin (Bld) [Mass/Vol] 14.6 g/dL See Below [facility] Work Phone: [phone] Comment on above: Reference Range: 12. 0 - 16.0 Lymphocytes/100 WBC (Bld) 25.5 % See Below [facility] Work Phone: [phone] Comment on above: Reference Range: 13. 0 - 44.0 MCHC (RBC) [Mass/Vol] 33.9 g/dL See Below [facility] Work Phone: Comment on above: Reference Range: 32. 0 - 36.0 MCV (RBC) [Entitic vol] 86 fL 80 - 100 [facility] Work Phone: [phone] Monocytes/100 WBC (Bld) 7.1 % 2.0 - 10.0 [facility] Work Phone: [phone] Neutrophils/100 WBC (Bld) 65.3 % See Below [facility] Work Phone: Comment on above: Reference Range: 40. 0 - 80.0 Platelets (Bld) [#/Vol] 253 10*3/uL 150 - 450 [facility] Work Phone: [phone] RBC (Bld) [#/Vol] 5.04 {x10E12/L} See Below [employer] Work Phone: [phone] Comment on above: Reference Range: 4.0 0 - 5.20 WBC (Bld) [#/Vol] 9.3 10*3/uL 4.4 - 11.3 [facility] Work Phone: [phone] Complete Blood Count + Differential 0.00 {x10E9/L} See Below [facility] Work Phone: Comment on above: Reference Range: 0.0 0 - 0.10 Complete Blood Count + Differential 0.20 {x10E9/L} See Below [facility] Work Phone: Comment on above: Reference Range: 0.0 0 - 0.70 Complete Blood Count + Differential 0.70 {x10E9/L} See Below [facility] Work Phone: Comment on above: Reference Range: 0.1 0 - 1.00 Complete Blood Count + Differential 2.40 {x10E9/L} See Below [facility] Work Phone: Comment on above: Reference Range: 1.2 0 - 4.80 Complete Blood Count + Differential 6.00 {x10E9/L} See Below [facility] Work Phone: Comment on above: Reference Range: 1.2 0 - 7.70 Percent differential counts (%) should be interpreted in the context of the absolute cell counts (cells/L). Complete Blood Count + Differential 1.7 % 0.0 - 6.0 [facility] Work Phone: Complete Blood Count + Differential 0.1 {/100_WBC} [facility] Work Phone: HEMOGLOBIN A1Con 12-28-2021 Glucose [Mass/Vol] 85 mg/dL Normal [facility] Comment on above: Performed By: #### H BA1E #### [facility] [address] [place] [address] HbA1c (Bld) [Mass fraction] 4.6 % Normal [facility] Comment on above: Result Comment: Diag nosis of Diabetes-Adults Non-Diabetic: < or = 5.6% Increased risk for developing diabetes: 5.7-6.4% Diagnostic of diabetes: > or = 6.5% . Monitoring of Diabetes Age (y) Therapeutic Goal (%) Adults: >18 <7.0 Pediatrics: 13-18 <7.5 7-12 <8.0 0- 6 7.5-8.5 [employer]. Diabetes Care 33(S1), Aug 2009. Performed By: #### H BA1E #### [address] [address] HEPATIC FUNCTION PANELon Albumin [Mass/Vol] 3.7 g/dL Normal 3.4 - 5.0 [facility] Comment on above: Performed By: #### H EPFP #### [address] [address] ALP [Catalytic activity/Vol] 130 U/L High 33 - 110 [facility] Comment on above: Performed By: #### H EPFP #### [address] [address] ALT [Catalytic activity/Vol] 143 U/L High 7 - 45 [facility] Comment on above: Result Comment: Vicenta ents treated with Sulfasalazine may generate falsely decreased results for ALT. Performed By: #### H EPFP #### [address] [address] AST [Catalytic activity/Vol] 148 U/L High 9 - 39 [facility] Comment on above: Performed By: #### H EPFP #### [address] [address] Bilirubin [Mass/Vol] 0.7 mg/dL Normal 0.0 - 1.2 [facility] Comment on above: Performed By: #### H EPFP #### [address] [address] Bilirubin.indirect [Mass/Vol] 0.1 mg/dL Normal 0.0 - 0.3 [facility] Comment on above: Performed By: #### H EPFP #### [address] [address] Protein [Mass/Vol] 7.6 g/dL Normal 6.4 - 8.2 [facility] Comment on above: Performed By: #### H EPFP #### [address] [address] HEPATITIS PANEL,ACUTE (HCFA) on 12-28-2021 Lab Specimen Source Normal [facility] Comment on above: Performed By: #### H EPA2 #### [facility] [address] [place] [address] Hemoglobin A1Con 12-28-2021 Glucose [Mass/Vol] 85 mg/dL [facility] Work Phone: HbA1c (Bld) [Mass fraction] 4.6 % [facility] Work Phone: Comment on above: Diagnosis of Diabete s-Adults Non-Diabetic: < or = 5.6% Increased risk for developing diabetes: 5.7-6.4% Diagnostic of diabetes: > or = 6.5%. Monitoring of Diabetes Age (y) Therapeutic Goal (%) Adults: >18 <7.0 Pediatrics: 13-18 <7.5 7-12 <8.0 0- 6 7.5-8.5 [employer]. Diabetes Care 33(S1), Aug 2009. Hepatic Function Panelon Albumin BCP dye [Mass/Vol] 3.7 g/dL 3.4 - 5.0 [facility] Work Phone: [phone] ALP [Catalytic activity/Vol] 130 U/L above high threshold 33 - 110 [facility] Work Phone: ALT With P-5'-P [Catalytic activity/Vol] 143 U/L above high threshold 7 - 45 [facility] Work Phone: Comment on above: Patients treated wit h Sulfasalazine may generate falsely decreased results for ALT. AST With P-5'-P [Catalytic activity/Vol] 148 U/L above high threshold 9 - 39 [facility] Work Phone: [phone] Bilirubin [Mass/Vol] 0.7 mg/dL 0.0 - 1.2 [facility] Internal [facility] Work Phone: [phone] Bilirubin.direct [Mass/Vol] 0.1 mg/dL 0.0 - 0.3 [facility] Work Phone: [phone] Protein [Mass/Vol] 7.6 g/dL 6.4 - 8.2 [facility] Work Phone: [phone] Hepatitis Panel, Acute (HCFA )on 12-28-2021 HAV IgM IA Ql Non-Reactive See Below [facility] Work Phone: Comment on above: SOURCE: Reference Ra nge: NONREACTIVE Biotin interference may cause falsely decreased results. Patients taking a Biotin dose of up to 5 mg/day should refrain from taking Biotin for 24 hours before sample collection. Providers may contact their local laboratory for further information. Hepatitis Panel, Acute (HCFA) Non-Reactive See Below [facility] Work Phone: Comment on above: Reference Range: NON REACTIVE Results from patients taking biotin supplements or receiving high-dose biotin therapy should be interpreted with caution due to possible interference with this test. Providers may contact their local laboratory for further information. Reference Range: NON REACTIVE Biotin interference may cause falsely decreased results. Patients taking a Biotin dose of up to 5 mg/day should refrain from taking Biotin for 24 hours before sample collection. Providers may contact their local laboratory for further information. Laboratory - Serology - non- microon 12-28-2021 Liver kidney microsomal 1 Ab Qn (S) <5.0 [facility] Work Phone: Comment on above: ANTI-LKM:Liver/Kidne y Microsome Type 1 Antibodies, Serum REFERENCE VALUE <=20.0 (Negative) Test Performed by:[facility] [place] [id number] Director: Barry Lopez M.D. Ph.D.; CLIA# [id number] No Panel Informationon 12-28 Negative NEGATIVE [facility] Work Phone: [phone] 1:20 [facility] Work Phone: [phone] Positive NEGATIVE [facility] Work Phone: 16 pg/mL 0 - 99 [facility] Work Phone: Comment on above: . <100 pg/mL - Heart failure [id number] pg/mL - Intermediate probability of acute heart. failure exacerbation. Correlate with clinical. context and patient history. >=300 pg/mL - Heart Failure likely. Correlate with clinical. context and patient history.BNP testing is performed using different testing methodology at [facility] than at other [facility]. Direct result comparisons should only be made within the same method. Office Visit (Internal Medic ine)on 12-28-2021 Follow-up visit Diagnoses/Problems Assessed Elevated LFTs (790.6) (R79.89) Glucose intolerance (impaired glucose tolerance) (790.22) (R73.02) Shortness of breath (786.05) (R06.02) Lower extremity edema (782.3) (R60.0) Palpitations (785.1) (R00.2) Depression, major, single episode, moderate (296.22) (F32.1) BMI 60.0-69.9, adult (V85.44) (Z68.44) Class 3 severe obesity due to excess calories with serious comorbidity and body mass index (BMI) of 60.0 to 69.9 in adult (278.01,V85.44) (E66.01,Z68.44) Costochondral pain (786.59) (R07.89) Fatigue (780.79) (R53.83) Fatty liver disease, nonalcoholic (571.8) (K76.0) Generalized anxiety disorder (300.02) (F41.1) 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) Hepatomegaly (789.1) (R16.0) 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,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,F41.8) BR[place]YDA on CPAP (327.23,V46.8) (G47.33,Z99.89) Medication management (V58.69) (Z79.899) Orders Elevated LFTs Ammonia, Plasma; Status:Active; Requested for:28Dec2021; Perform:Lab Services - Lab To Draw (Blood Test); Due:28Mar2022;Ordered; For:Elevated LFTs; Ordered By:Vargas Mujica; Antimitochondrial Ab; Status:In Progress - Specimen/Data Collected; Done: 28Dec2021 Perform:Lab Services - Lab To Draw (Blood Test); Due:28Mar2022;Ordered; For:Elevated LFTs; Ordered By:Vargas Mujica; Complete Blood Count + Differential; Status:In Progress - Specimen/Data Collected; Done: 28Dec2021 Perform:Lab Services - Lab To Draw (Blood Test); Due:28Mar2022;Ordered; For:Elevated LFTs; Ordered By:Vargas Mujica; Hepatic Function Panel; Status:In Progress - Specimen/Data Collected; Done: 28Dec2021 Perform:Lab Services - Lab To Draw (Blood Test); Due:28Mar2022;Ordered; For:Elevated LFTs; Ordered By:Vargas Mujica; Hepatitis Panel, Acute (HCFA); Status:In Progress - Specimen/Data Collected; Done: 28Dec2021 Perform:Lab Services - Lab To Draw (Blood Test); Due:28Mar2022;Ordered; For:Elevated LFTs; Ordered By:Vargas Mujica; Liver Kidney Microsomal Antibody Assay; Status:In Progress - Specimen/Data Collected; Done: 28Dec2021 Perform:Lab Services - Lab To Draw (Blood Test); Due:28Mar2022;Ordered; For:Elevated LFTs; Ordered By:Vargas Mujica; Sedimentation Rate, Erythrocyte; Status:In Progress - Specimen/Data Collected; Done: 28Dec2021 Perform:Lab Services - Lab To Draw (Blood Test); Due:28Mar2022;Ordered; For:Elevated LFTs; Ordered By:Vargas Mujica; Smooth Muscle Antibody Screen; Status:In Progress - Specimen/Data Collected; Done: 28Dec2021 Perform:Lab Services - Lab To Draw (Blood Test); Due:28Mar2022;Ordered; For:Elevated LFTs; Ordered By:Vargas Mujica; Glucose intolerance (impaired glucose tolerance) Hemoglobin A1C; Status:In Progress - Specimen/Data Collected; Done: 28Dec2021 Perform:Lab Services - Lab To Draw (Blood Test); Due:28Mar2022;Ordered; For:Glucose intolerance (impaired glucose tolerance); Ordered By:Vargas Mujica; Lower extremity edema, Palpitations, Shortness of breath Start: Furosemide 20 MG Oral Tablet; TAKE 1 TABLET DAILY X 7 DAYS THEN PRN EDEMA Rx By: Vargas Mujica; Dispense: 30 Days ; #:30 Tablet; Refill: 0;For: Lower extremity edema, Palpitations, Shortness of breath; JAKE = N; Verified Transmission to [id number]; Last Updated By: Jeanette Gracia; 12/28/2021 10:29:13 AM Echocardiogram; Status:Hold For - Scheduling; Requested for:28Dec2021; Perform:[facility] Order Comments:dr dong; Due:28Mar2022;Ordered; For:Lower extremity edema, Palpitations, Shortness of breath; Ordered By:Vargas Mujica; Lower extremity edema, Shortness of breath Brain Natriuretic Peptide BNP; Status:In Progress - Specimen/Data Collected; Done: 28Dec2021 Perform:Lab Services - Lab To Draw (Blood Test); Due:28Mar2022;Ordered; For:Lower extremity edema, Shortness of breath; Ordered By:Vargas Mujica; Patient Discussion/Summary f/u in 3-6 weeks for med check Provider Impressions 1.Complexity: More than 1 stable chronic condition addressed 2.Data: Tests interpreted and or ordered, took independent history or records reviewed 3.Risks: Moderate Risk due to nature of medical conditions /comorbidity or meds ordered or surgical procedure referral Reviewed notes on file Reviewed labs and Testing on file Patient to follow diet low in cholesterol, fat, and sodium. Patient is advised to increase Exercise. Patient is recommended to lose weight. Reviewed Meds and discussed common side effects Continue as directed cont on effexor and elavil ativan pt to cont to follow with specialists Reviewed labs on file - pt states her alk anna and liver are higher yet checked with her bariatric provider since what deepak had ordered in october will look into auto-immune hep and check ammonia levels as well LE edema/SOB/ wt gain - concerns for heart failure -will set up BNP and echo will start on lasix daily x 1 week then prn FMLA completed for patient will plan (more content not included)... Normal [employer] SEDIMENTATION RATE, ERYTHROC YTEon 12-28-2021 SEDIMENTATION RATE, ERYTHROCYTE 64 mm/h High 0 - 20 [facility] Comment on above: Performed By: #### E SRWS #### [address] [address] Sedimentation Rate, Erythroc yteon 12-28-2021 ESR (Bld) [Velocity] 64 mm/h above high threshold 0 - 20 [facility] Work Phone: Tobacco Screening.on 022 Adult depression screening assessment No [facility] Work Phone: Fall risk assessment b) One or more fall s in the last year [facility] Work Phone: Tobacco use status [facility] b) No [facility] Work Phone: CBC AND DIFFERENTIALon 11-11 Basophils (Bld) [#/Vol] 0.00 10*3/uL Normal 0.00 - 0.10 [facility] Comment on above: Performed By: #### E SRWS #### [address] [address] Basophils/100 WBC (Bld) 0.4 % Normal 0.0 - 2.0 [facility] Comment on above: Performed By: #### E SRWS #### [address] [address] Eosinophils (Bld) [#/Vol] 0.20 10*3/uL Normal 0.00 - 0.70 [facility] Comment on above: Performed By: #### E SRWS #### [address] [address] Eosinophils/100 WBC (Bld) 2.0 % Normal 0.0 - 6.0 [facility] Comment on above: Performed By: #### E SRWS #### [address] [address] Erythrocyte distribution width (RBC) [Ratio] 15.3 % High 11.5 - 14.5 [facility] Comment on above: Performed By: #### E SRWS #### [address] [address] Hematocrit (Bld) [Volume fraction] 42.3 % Normal 36.0 - 46.0 [facility] Comment on above: Performed By: #### E SRWS #### [address] [address] Hemoglobin (Bld) [Mass/Vol] 13.9 g/dL Normal 12.0 - 16.0 [facility] Comment on above: Performed By: #### E SRWS #### [address] [address] Lymphocytes (Bld) [#/Vol] 2.20 10*3/uL Normal 1.20 - 4.80 [facility] Comment on above: Performed By: #### E SRWS #### [address] [address] Lymphocytes/100 WBC (Bld) 25.1 % Normal 13.0 - 44.0 [facility] Comment on above: Performed By: #### E SRWS #### [address] [address] MCHC (RBC) [Mass/Vol] 32.8 g/dL Normal 32.0 - 36.0 [facility] Comment on above: Performed By: #### E SRWS #### [address] [address] MCV (RBC) [Entitic vol] 87 fL Normal 80 - 100 [facility] Comment on above: Performed By: #### E SRWS #### [address] [address] Monocytes (Bld) [#/Vol] 0.60 10*3/uL Normal 0.10 - 1.00 [facility] Comment on above: Performed By: #### E SRWS #### [address] [address] Monocytes/100 WBC (Bld) 7.1 % Normal 2.0 - 10.0 [facility] Comment on above: Performed By: #### E SRWS #### [address] [address] Neutrophils (Bld) [#/Vol] 5.80 10*3/uL Normal 1.20 - 7.70 [facility] Comment on above: Result Comment: Perc ent differential counts (%) should be interpreted in the context of the absolute cell counts (cells/L). Performed By: #### E SRWS #### [address] [address] Neutrophils/100 WBC (Bld) 65.4 % Normal 40.0 - 80.0 [facility] Comment on above: Performed By: #### E SRWS #### [address] [address] NUCLEATED RBC 0.3 /100 WBC Normal [facility] Comment on above: Performed By: #### E SRWS #### [address] [address] Platelets (Bld) [#/Vol] 246 10*3/uL Normal 150 - 450 [facility] Comment on above: Performed By: #### E SRWS #### [address] [address] RBC 4.88 x10E12/L Normal 4.00 - 5.20 [facility] Comment on above: Performed By: #### E SRWS #### [address] [address] WBC (Bld) [#/Vol] 8.8 10*3/uL Normal 4.4 - 11.3 [facility] Comment on above: Performed By: #### E SRWS #### [address] [address] COMPREHENSIVE PANELon 2021 Albumin [Mass/Vol] 3.6 g/dL Normal 3.4 - 5.0 [facility] Comment on above: Performed By: #### C MP #### [address] [address] ALP [Catalytic activity/Vol] 123 U/L High 33 - 110 [facility] Comment on above: Performed By: #### C MP #### [address] [address] ALT [Catalytic activity/Vol] 109 U/L High 7 - 45 [facility] Comment on above: Result Comment: Vicenta ents treated with Sulfasalazine may generate falsely decreased results for ALT. Performed By: #### C MP #### [address] [address] Anion gap [Moles/Vol] 10 mmol/L Normal 10 - 20 [facility] Comment on above: Performed By: #### C MP #### [address] [address] AST [Catalytic activity/Vol] 107 U/L High 9 - 39 [facility] Comment on above: Performed By: #### C MP #### [address] [address] Bilirubin [Mass/Vol] 0.6 mg/dL Normal 0.0 - 1.2 [facility] Comment on above: Performed By: #### C MP #### [address] [address] Calcium [Mass/Vol] 9.3 mg/dL Normal 8.6 - 10.3 [facility] Comment on above: Performed By: #### C MP #### [address] [address] Chloride [Moles/Vol] 100 mmol/L Normal 98 - 107 [facility] Comment on above: Performed By: #### C MP #### [address] [address] Creatinine [Mass/Vol] 0.61 mg/dL Normal 0.50 - 1.05 [facility] Comment on above: Performed By: #### C MP #### [address] [address] eGFR FEMALE >90 Normal >90 [facility] Comment on above: Result Comment: CALC ULATIONS OF ESTIMATED GFR ARE PERFORMED USING THE 2020 CKD-EPI STUDY REFIT EQUATION WITHOUT THE RACE VARIABLE FOR THE IDMS-TRACEABLE CREATININE METHODS. https://jasn.asnjournals.org/content/early//ASN.[email or web address] 3660 Performed By: #### C MP #### [address] [address] Glucose [Mass/Vol] 150 mg/dL High 74 - 99 [facility] Comment on above: Performed By: #### C MP #### [address] [address] HCO3 (Bld) [Moles/Vol] 31 mmol/L Normal 21 - 32 [facility] Comment on above: Performed By: #### C MP #### [address] [address] Potassium [Moles/Vol] 3.4 mmol/L Low 3.5 - 5.3 [facility] Comment on above: Performed By: #### C MP #### [address] [address] Protein [Mass/Vol] 7.4 g/dL Normal 6.4 - 8.2 [facility] Comment on above: Performed By: #### C MP #### [address] [address] Sodium [Moles/Vol] 138 mmol/L Normal 136 - 145 [facility] Comment on above: Performed By: #### C MP #### [address] [address] Urea nitrogen [Mass/Vol] 11 mg/dL Normal 6 - 23 [facility] Comment on above: Performed By: #### C MP #### [address] [address] Complete Blood Count + Diffe rentialon 11-11-2021 Basophils/100 WBC (Bld) 0.4 % 0.0 - 2.0 [facility] Medicine Work Phone: Erythrocyte distribution width (RBC) [Ratio] 15.3 % above high threshold See Below [facility] Internal [facility] Work Phone: Comment on above: Reference Range: 11. 5 - 14.5 Hematocrit (Bld) [Volume fraction] 42.3 % See Below [facility] Work Phone: Comment on above: Reference Range: 36. 0 - 46.0 Hemoglobin (Bld) [Mass/Vol] 13.9 g/dL See Below [facility] Work Phone: Comment on above: Reference Range: 12. 0 - 16.0 Lymphocytes/100 WBC (Bld) 25.1 % See Below [facility] Work Phone: [phone] Comment on above: Reference Range: 13. 0 - 44.0 MCHC (RBC) [Mass/Vol] 32.8 g/dL See Below [facility] Work Phone: [phone] Comment on above: Reference Range: 32. 0 - 36.0 MCV (RBC) [Entitic vol] 87 fL 80 - 100 [facility] Work Phone: [phone] Monocytes/100 WBC (Bld) 7.1 % 2.0 - 10.0 [facility] Work Phone: [phone] Neutrophils/100 WBC (Bld) 65.4 % See Below [facility] Work Phone: Comment on above: Reference Range: 40. 0 - 80.0 Platelets (Bld) [#/Vol] 246 10*3/uL 150 - 450 [facility] Work Phone: [phone] RBC (Bld) [#/Vol] 4.88 {x10E12/L} See Below [employer] Work Phone: [phone] Comment on above: Reference Range: 4.0 0 - 5.20 WBC (Bld) [#/Vol] 8.8 10*3/uL 4.4 - 11.3 [facility] Work Phone: [phone] Complete Blood Count + Differential 0.00 {x10E9/L} See Below [facility] Work Phone: Comment on above: Reference Range: 0.0 0 - 0.10 Complete Blood Count + Differential 0.20 {x10E9/L} See Below [facility] Work Phone: [phone] Comment on above: Reference Range: 0.0 0 - 0.70 Complete Blood Count + Differential 0.60 {x10E9/L} See Below [facility] Work Phone: Comment on above: Reference Range: 0.1 0 - 1.00 Complete Blood Count + Differential 2.20 {x10E9/L} See Below [facility] Work Phone: Comment on above: Reference Range: 1.2 0 - 4.80 Complete Blood Count + Differential 5.80 {x10E9/L} See Below [facility] Work Phone: Comment on above: Reference Range: 1.2 0 - 7.70 Percent differential counts (%) should be interpreted in the context of the absolute cell counts (cells/L). Complete Blood Count + Differential 2.0 % 0.0 - 6.0 [facility] Work Phone: Complete Blood Count + Differential 0.3 {/100_WBC} [facility] Work Phone: Laboratory - Chemistry and C hemistry - challengeon 11-11-2021 Albumin BCP dye [Mass/Vol] 3.6 g/dL 3.4 - 5.0 [facility] Work Phone: ALP [Catalytic activity/Vol] 123 U/L above high threshold 33 - 110 [facility] Work Phone: ALT With P-5'-P [Catalytic activity/Vol] 109 U/L above high threshold 7 - 45 [facility] Work Phone: Comment on above: Patients treated wit h Sulfasalazine may generate falsely decreased results for ALT. Anion gap [Moles/Vol] 10 mmol/L 10 - 20 [facility] Work Phone: AST With P-5'-P [Catalytic activity/Vol] 107 U/L above high threshold 9 - 39 [facility] Work Phone: Bilirubin [Mass/Vol] 0.6 mg/dL 0.0 - 1.2 [facility] Internal [facility] Work Phone: Calcium [Mass/Vol] 9.3 mg/dL 8.6 - 10.3 [facility] Medicine Work Phone: Chloride [Moles/Vol] 100 mmol/L 98 - 107 [facility] Work Phone: CO2 [Moles/Vol] 31 mmol/L 21 - 32 [facility] Medicine Work Phone: Creatinine [Mass/Vol] 0.61 mg/dL See Below [facility] Work Phone: Comment on above: Reference Range: 0.5 0 - 1.05 Glucose [Mass/Vol] 150 mg/dL above high threshold 74 - 99 [facility] Work Phone: Potassium [Moles/Vol] 3.4 mmol/L below low threshold 3.5 - 5.3 [facility] Work Phone: Protein [Mass/Vol] 7.4 g/dL 6.4 - 8.2 [facility] Work Phone: Sodium [Moles/Vol] 138 mmol/L 136 - 145 [facility] Work Phone: TSH Qn 2.91 m[IU]/L See Below [facility] Work Phone: Comment on above: Reference Range: 0.4 4 - 3.98 TSH testing is performed using different testing methodology at [facility] than at [facility]. Direct result comparisons should only be made within the same method. Urea nitrogen [Mass/Vol] 11 mg/dL 6 - 23 [facility] Work Phone: No Panel Informationon 11-11 >90 >90 [facility] Work Phone: Comment on above: CALCULATIONS OF COLETTE MATED GFR ARE PERFORMED USING THE 2020 CKD-EPI STUDY REFIT EQUATION WITHOUT THE RACE VARIABLE FOR THE IDMS-TRACEABLE CREATININE METHODS.https://jasn.asnjournals.org/content/early/ N.[email or web address] Office Visit (Internal Medic ine)on 11-11-2021 Follow-up visit Diagnoses/Problems Assessed Costochondral pain (786.59) (R07.89) Lower extremity edema (782.3) (R60.0) Chronic with acute worsening since COVID-19 States generalized edema. Nonpitting edema b/l LE Mild edema b/l hands. She does not have LIVAN hose on today but reports she typically wears LIVAN hose. Currently taking HCTZ. Doubled her dose this week d/t increased edema. States PCP approved increase. P/ CBC, CMP, TSH Shortness of breath (786.05) (R06.02) Chronic with acute exacerbation since COVID-19. Prescribed Albuterol inhaler 1-2 puffs every 6 hours PRN SOB. Instructed on proper use. Discussed possibly AE. 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 Ordered TSH Will notify of result. Costochondritis (733.6) (M94.0) Acute A/ Onset 07/2021 after recovering from COVID-19. Tenderness with palpation right upper chest above breast. Chronic elevated liver enzymes-unable to take acetaminophen. P/ Prednisone 20 mg X 7 days. She reports dexamethasone caused bothersome AE. Will try lower dose prednisone, she will report if AE occur. Orders Anxiety and depression Renew: Venlafaxine HCl ER 75 MG Oral Capsule Extended Release 24 Hour; Take 1 capsule twice daily Rx By: Talya Stevens; Dispense: 30 Days ; #:60 Capsule; Refill: 5;For: Anxiety and depression; JAKE = N; Verified Transmission to [facility] #[id number]; Last Updated By: [employer]; 11/11/2021 9:20:17 AM Costochondral pain Start: predniSONE 20 MG Oral Tablet; TAKE 1 TABLET DAILY DIRECTED Rx By: Talya Stevens; Dispense: 7 Days ; #:7 Tablet; Refill: 0;For: Costochondral pain; JAKE = N; Verified Transmission to [facility]ARM[facility]Y #3321; Last Updated By: [employer]; 11/11/2021 9:20:16 AM Comprehensive Metabolic Panel; Status:In Progress - Specimen/Data Collected; Done: 11Nov2021 Perform:Lab Services - Lab To Draw (Blood Test); Due:09Feb2022;Ordered; For:Costochondral pain; Ordered By:Talya Stevens; Shahzad's disease TSH WITH REFLEX TO FREE T4 IF ABNORMAL; Status:In Progress - Specimen/Data Collected; Done: 11Nov2021 Perform:Lab Services - Lab To Draw (Blood Test); Due:09Feb2022;Ordered; For:Shahzad's disease; Ordered By:Talya Stevens; Lower extremity edema, Shortness of breath Complete Blood Count + Differential; Status:Resulted - Requires Verification; Done: 11Nov2021 09:29AM Performed:[facility]; Due:09Feb2022;Ordered; For:Lower extremity edema, Shortness of breath; Ordered By:Talya Stevens; Shortness of breath Start: Albuterol Sulfate HFA 108 (90 Base) MCG/ACT Inhalation Aerosol Solution; INHALE 1 TO 2 PUFFS EVERY 6 HOURS NEEDED Rx By: Talya Stevens; Dispense: 0 Days ; #:1 X 6.7 GM Inhaler; Refill: 1;For: Shortness of breath; JAKE = N; Verified Transmission to [facility]/PHARMACY #3321; Last Updated By: [employer]; 11/11/2021 9:20:21 AM Patient Discussion/Summary FUOV as needed Labs- CBC, CMP, TSH Medications sent to listed pharmacy. Provider Impressions Reviewed labs from January and March 2021. Bariatric surgery was cancelled d/t COVID in 2020. She plans to reschedule for surgery. Chief Complaint PT HERE CO PAIN RIGHT UPPER BREAST AREA AND RIB SINCE HAVING COVID PT ALSO CO SWELLING AND EDEMA History of Present Cctleqe41 YOF presents with concerns of pain above right breast since having COVID-19 in July 2021. She is concerned about increased generalized edema since COVID-19 infection. Also reports increased SOB since COVID-19. Reports having a moderately severe COVID-19 infection. Review of Systems Constitutional: feeling poorly, but no fever and not feeling tired. Cardiovascular: shortness of breath and lower extremity edema, but no chest pain. Respiratory: shortness of breath during exertion, but no cough. Gastrointestinal: no diarrhea, no nausea, no vomiting and no abdominal pain. Genitourinary: no dysuria and no hematuria. Musculoskeletal: as noted in HPI. Neurological: no headaches and no dizziness. Endocrine: thyroid disorder. 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) Abnormal EKG (794.31) (R94.31) Anxiety (300.00) (F41.9) Anxiety and depression (300.00,311) (F41.9,F32.A) Bilateral hand numbness (782.0) (R20.0) BMI 60.0-69.9, adult (V85.44) (Z68.44) Chronic low back pain (724.2,338.29) (M54.50,G89.29) Class 3 severe obesity due to excess calories with serious comorbidity and body mass index (BMI) of 60.0 to 69.9 in adult (278.01,V85.44) (E66.01,Z68.44) Constipation (564.00) (K59.00) Cough (786.2) (R05.9) COVID-19 virus infection (079.89) (U07.1) Deficiency of other vitamins (269.1) (E56.8) Drug-induced constipation (564.09,E980.5) (K59.03) Dyspnea (786.09) (R06.00) Elevated ferritin level (790.6) (R79.89) Elevated LFTs (790.6) (R79.89) Fatigue (780.79) (R53.83) Fever, low grade (780.60) (R50.9) Generalized anxiety disorder (300.02) (F41.1) GERD (gastroesophage (more content not included)... Normal [facility] TSH WITH REFLEX TO FREE T4 I F ABNORMALon 11-11-2021 TSH Qn 2.91 m[IU]/L Normal 0.44 - 3.98 [facility] Comment on above: Result Comment: TSH testing is performed using different testing methodology at [facility] than at other [facility]. Direct result comparisons should only be made within the same method. Performed By: #### T [facility] #### [place] [address] Tobacco Screening.on 022 Fall risk assessment b) One or more fall s in the last year [facility] Work Phone: Tobacco use status [facility] b) No [facility] Work Phone: Tobacco Screening.on Fall risk assessment a) No falls within the last year [facility] Medicine Work Phone: Tobacco use status [facility] b) No [facility] Medicine Work Phone: Tobacco Screening.on Fall risk assessment a) No falls within the last year [facility] Medicine Work Phone: Tobacco use status [facility] b) No [facility] Medicine Work Phone: IO EKG Electrocardiogram- 12 Leadon 07-28-2021 EKG study NORMAL SINUS RYTHMN, POSSIBLE L ATRIAL ENLARGEMENT, BORDERLINE ECG [facility] Work Phone: IO EKG Electrocardiogram- 12 Lead See Scanned Document [facility] Work Phone: Tobacco Screening.on Fall risk assessment a) No falls within the last year [facility] Medicine Work Phone: Tobacco use status [facility] b) No [facility] Medicine Work Phone: Cult, Urineon 07-23-2021 Bacteria identified Cx Nom (U) [facility] Work Phone: Laboratory - Coagulationon 1 09-22-2020 INR Coag (PPP) [Relative time] 1.1 {INR} 0.9 - 1.1 [facility] Medicine Work Phone: PT Coag (PPP) [Time] 13.2 s See Below -[facility] Work Phone: Comment on above: Reference Range: 10. 1 - 13.3 MRSA Screenon 07-23-2021 Staphylococcus sp identified Org specific cx Nom (Unsp spec) [facility] Work Phone: Radiologyon 07-23-2021 XR Chest 2 Views Normal [facility] Internal Medicine Work Phone: Urinalysison 07-23-2021 Color (U) Yellow See Below [facility] Medicine Work Phone: Comment on above: Reference Range: STR AW,YELLOW Glucose Ql (U) Negative NEGATIVE [facility] Medicine Work Phone: Ketones Ql (U) Negative NEGATIVE [facility] Work Phone: Leukocyte esterase Test strip Ql (U) Negative NEGATIVE [facility] Work Phone: pH (U) 7.0 [pH] 5.0 - 8.0 [facility] Work Phone: Protein (U) [Mass/Vol] Negative NEGATIVE [facility] Work Phone: RBC (U) [#/Vol] Negative NEGATIVE [facility] Work Phone: Specific gravity (U) [Rel density] 1.006 1 See Below [facility] Work Phone: Comment on above: Reference Range: 1.0 05 - 1.035 Urinalysis Negative NEGATIVE [facility] Work Phone: Urinalysis <2.0 0.0 - 1.9 [facility] Work Phone: Urinalysis HAZY CLEAR [facility] Work Phone: Laboratory - Chemistry and C hemistry - challengeon 05-25-2021 Creatinine (Body fld) [Mass/Vol] 51.0 mg/dL [facility] Work Phone: Comment on above: A urine creatinine r esult >= 20 mg/dL is considered valid without suspicion of dilution. Samples with results below this range will automatically reflex to specific gravity testing to verify specimen integrity. Laboratory - Drug toxicology on 05-25-2021 1-Hydroxymidazolam Confirm (U) [Mass/Vol] <25 Cutoff <25 [facility] Work Phone: 2-Upsnrahfvk-0,5-Dime thyl-3,3-Diphenylpyrr olidine (EDDP) Confirm (U) [Mass/Vol] <25 Cutoff <25 [facility] Work Phone: Comment on above: The performance rupert acteristics of the Methadone Confirmation, Urine has been validated by the individual laboratory site where testing is performed. It has not been cleared or approved by the FDA. However the FDA has determined that such clearance or approval is not necessary. Our Laboratory is certified under the Clinical Laboratory Improvement Amendments of 1988 (CLIA) as qualified to perform high complexity clinical laboratory testing. 6-Monoacetylmorphine (6-RAINE) Confirm (U) [Mass/Vol] <25 Cutoff <25 [facility] Work Phone: 7-Aminoclonazepam Confirm (U) [Mass/Vol] <25 Cutoff <25 [facility] Work Phone: Alpha hydroxyalprazolam Confirm (U) [Mass/Vol] <25 Cutoff <25 [facility] Work Phone: ALPRAZolam Confirm (U) [Mass/Vol] <25 Cutoff <25 [facility] Work Phone: Amphetamines Screen Ql (U) Negative NEGATIVE [facility] Work Phone: Comment on above: CUTOFF LEVEL: 500 NG /ML Cross-reactivity has been reported with high concentrations of the following drugs: buproprion, chloroquine, chlorpromazine, ephedrine, mephentermine, fenfluramine, phentermine, phenylpropanolamine, pseudoephedrine, and propranolol. Barbiturates Screen Ql (U) Negative NEGATIVE [facility] Work Phone: Comment on above: CUTOFF LEVEL: 200 NG /ML Benzoylecgonine Screen Ql (U) Negative NEGATIVE [facility] Internal [facility] Work Phone: Comment on above: CUTOFF LEVEL: 150 NG /ML Cannabinoids Screen Ql (U) Negative NEGATIVE [facility] Work Phone: Comment on above: CUTOFF LEVEL: 50 NG/ ML chlordiazePOXIDE Confirm (U) [Mass/Vol] <25 Cutoff <25 [facility] Work Phone: clonazePAM Confirm (U) [Mass/Vol] <25 Cutoff <25 [facility] Work Phone: Codeine Confirm (U) [Mass/Vol] <50 Cutoff <50 [facility] Work Phone: diazePAM Confirm (U) [Mass/Vol] <25 Cutoff <25 [facility] Work Phone: fentaNYL Confirm (U) [Mass/Vol] <2.5 Cutoff<2.5 -[facility] Internal [facility] Work Phone: HYDROcodone Confirm (U) [Mass/Vol] <25 Cutoff <25 [facility] Work Phone: HYDROmorphone Confirm (U) [Mass/Vol] <25 Cutoff <25 [facility] Work Phone: LORazepam Confirm (U) [Mass/Vol] <25 Cutoff <25 -[facility] Work Phone: Methadone Confirm (U) [Mass/Vol] <25 Cutoff <25 -[facility] Work Phone: Midazolam Confirm (U) [Mass/Vol] <25 Cutoff <25 -[facility] Work Phone: Morphine Confirm (U) [Mass/Vol] <50 Cutoff <50 -[facility] Internal [facility] Work Phone: Nordiazepam Confirm (U) [Mass/Vol] <25 Cutoff <25 [facility] Work Phone: Norfentanyl Confirm (U) [Mass/Vol] <2.5 Cutoff<2.5 -[facility] Internal [facility] Work Phone: Comment on above: The performance rupert acteristics of the Fentanyl Confirmation, Urine has been validated by the individual laboratory site where testing is performed. It has not been cleared or approved by the FDA. However the FDA has determined that such clearance or approval is not necessary. Our Laboratory is certified under the Clinical Laboratory Improvement Amendments of 1988 (CLIA) as qualified to perform high complexity clinical laboratory testing. Norhydrocodone Confirm (U) [Mass/Vol] <25 Cutoff <25 -[facility] Work Phone: Noroxycodone Confirm (U) [Mass/Vol] <25 Cutoff <25 [facility] Work Phone: Nortramadol (U) [Mass/Vol] <50 Cutoff <50 [facility] Internal [facility] Work Phone: Comment on above: The performance rupert acteristics of the Tramadol Confirmation, Urine has been validated by the individual laboratory site where testing is performed. It has not been cleared or approved by the FDA. However the FDA has determined that such clearance or approval is not necessary. Our Laboratory is certified under the Clinical Laboratory Improvement Amendments of 1988 (CLIA) as qualified to perform high complexity clinical laboratory testing. Oxazepam Confirm (U) [Mass/Vol] <25 Cutoff <25 [facility] Work Phone: oxyCODONE Confirm (U) [Mass/Vol] <25 Cutoff <25 [facility] Work Phone: oxyMORphone Confirm (U) [Mass/Vol] <25 Cutoff <25 [facility] Work Phone: Comment on above: The performance rupert acteristics of the Opiate Confirmation, Urine has been validated by the individual laboratory site where testing is performed. It has not been cleared or approved by the FDA. However the FDA has determined that such clearance or approval is not necessary. Our Laboratory is certified under the Clinical Laboratory Improvement Amendments of 1988 (CLIA) as qualified to perform high complexity clinical laboratory testing. Phencyclidine Ql (U) Negative NEGATIVE [facility] Work Phone: Comment on above: CUTOFF LEVEL: 25 NG/ ML Cross-reactivity has been reported with dextromethorphan. Temazepam Confirm (U) [Mass/Vol] <25 [facility]off [facility] Comment on above: The performance rupert acteristics of the Benzodiazepine Confirmation, Urine has been validated by the individual laboratory site where testing is performed. It has not been cleared or approved by the FDA. However the FDA has determined that such clearance or approval is not necessary. Our Laboratory is certified under the Clinical Laboratory Improvement Amendments of 1988 (CLIA) as qualified to perform high complexity clinical laboratory testing. traMADol Confirm (U) [Mass/Vol] <50 Cutoff <50 [facility] Internal [facility] Work Phone: Zolpidem (U) [Mass/Vol] <25 Cutoff <25 [facility] Work Phone: No Panel Informationon 05-25 <25 Cutoff <25 [facility] Internal [facility] Work Phone: Comment on above: The performance rupert acteristics of the Zolpidem Confirmation, Urine has been validated by the individual laboratory site where testing is performed. It has not been cleared or approved by the FDA. However the FDA has determined that such clearance or approval is not necessary. Our Laboratory is certified under the Clinical Laboratory Improvement Amendments of 1988 (CLIA) as qualified to perform high complexity clinical laboratory testing. SEE BELOW [facility] Work Phone: Comment on above: Drug screen results are presumptive and should not be used to assess compliance with prescribed medication. Definitive confirmatory drug testing has been added to this sample for any positive screen result and will be reported separately. .Toxicology screening results are reported qualitatively. The concentration must be greater than or equal to the cutoff to be reported as positive. The concentration at which the screening test can detect an individual drug or metabolite varies. The absence of expected drug(s) and/or drug metabolite(s) may indicate non-compliance, inappropriate timing of specimen collection relative to drug administration, poor drug absorption, diluted/adulterated urine, or limitations of testing. For medical purposes only; not valid for forensic use. .Interpretive questions should be directed to the laboratory medical directors. Tobacco Screening.on 021 Fall risk assessment a) No falls within the last year [facility] Work Phone: Tobacco use status [facility] b) No [facility] Medicine Work Phone: XR Chest PA and Lateralon IMPRESSION: No acute radiographic abnormality. Access Specialist: YUVAL Transcribe Date/Time: Dec 19 2020 3:24P Dictated by : TROY CHUNG MD This examination was interpreted and the report reviewed and electronically signed by: TROY CHUNG MD on Dec 19 2020 3:33PM [facility] DIVISION OF RADIOLOGY * * *Final Report* * * DATE OF EXAM: Dec 19 2020 10:41AM WOX [id number] - XR CHEST 2V FRONTAL/LAT / PROCEDURE REASON: multiple diagnoses * * * * Physician Interpretation * * * * EXAMINATION: CHEST RADIOGRAPH (2 VIEW FRONTAL & LATERAL) CLINICAL HISTORY: Class 3 severe obesity with body mass index (BMI) of 50.0 to 59.9 in adult, unspecified obesity type, unspecified whether serious comorbidity present (HCC) Class 3 severe obesity with body mass index (BMI) of 50.0 to 59.9 in adult, unspecified obesity type, unspecified whether serious comorbidity present (HCC) MQ: [id number] EXAM DATE/TIME: 12/19/2020 10:41 AM COMPARISON: CT chest on 09/20/2018. RESULT: Lines, tubes, and devices: None. Lungs and pleura: No consolidation. No lung mass. No pleural effusion. No pneumothorax. Cardiomediastinal silhouette: Stable cardiac silhouette and mediastinal contour. Bones and soft tissues: Unremarkable. DIVISION OF RADIOLOGY Provider, [facility] - 12/19/2020 * * *Final Report* * * DATE OF EXAM: Dec 19 2020 10:41AM WOX [id number] - XR CHEST 2V FRONTAL/LAT / PROCEDURE REASON: multiple diagnoses * * * * Physician Interpretation * * * * EXAMINATION: CHEST RADIOGRAPH (2 VIEW FRONTAL & LATERAL) CLINICAL HISTORY: Class 3 severe obesity with body mass index (BMI) of 50.0 to 59.9 in adult, unspecified obesity type, unspecified whether serious comorbidity present (HCC) Class 3 severe obesity with body mass index (BMI) of 50.0 to 59.9 in adult, unspecified obesity type, unspecified whether serious comorbidity present (HCC) MQ: [id number] EXAM DATE/TIME: 12/19/2020 10:41 AM COMPARISON: CT chest on 09/20/2018. RESULT: Lines, tubes, and devices: None. Lungs and pleura: No consolidation. No lung mass. No pleural effusion. No pneumothorax. Cardiomediastinal silhouette: Stable cardiac silhouette and mediastinal contour. Bones and soft tissues: Unremarkable. IMPRESSION IMPRESSION: No acute radiographic abnormality. Access Specialist: PSCGabo Transcribe Date/Time: Dec 19 2020 3:24P Dictated by : TROY CHUNG MD This examination was interpreted and the report reviewed and electronically signed by: TROY CHUNG MD on Dec 19 2020 3:33PM EST [facility] [place] [facility] Radiology Study observation (narrative) [facility] XR Chest PA and LateralOrder ed By: Ccf Provider on 12-19-2020 [facility] NM CARDIAC PERF STRESS/EXERC ISEon 07-13-2020 NM CARDIAC PERF STRESS/EXERCISE * * *Final Report* * * DATE OF EXAM: Jul 13 2020 3:09PM FERNANDA 0004 - NM CARDIAC PERF STRESS/EXERCISE / PROCEDURE REASON: multiple diagnoses * * * * Physician Interpretation * * * * PATIENT: Name: MS. CURLY COWART Age: 35 years Gender: F CONCLUSIONS: 1. SPECT Perfusion Study: Normal. 2. There is no scintigraphic evidence for inducible ischemia. 3. No evidence of scarred myocardium. 4. Left ventricle is normal in size. The left ventricle systolic function is normal. 5. Right ventricle is normal in size. 6. This is a low risk scan. 1 LVEF % 71 Prior Study Comparison Prior nuclear cardiology exam was performed on [..].10/11/2016. Nuclear Med Report:1-Day Ku-50y[place] Exercise Stress Gated SPECT: Myocardial perfusion imaging was performed at rest 30 to 60 minutes following the IV injection of Tc-99m tetrofosmin. One minute prior to peak exercise, the patient was injected IV with Tc-99m tetrofosmin. Gated post stress tomographic imaging was performed 10 to 20 minutes later. See administered doses below. [facility] Date of service: 07/13/2020 1:17:42 PM Ordering Physician: Tomasz Garay Requesting Physician: Indication: CAD eval, high CHD risk, Asx for ischemia Interpreting physician: Mackenzie Perkins DO Height: 0.00 cm BSA: 0.00 m? Weight: 0.00 kg BMI: Imaging Protocol Limitation Reason Breast attenuation. Exam Type: Rest Stress Radiopharm: Tc-99m Tetrofosmin Tc-99m Tetrofosmin Dosage(mCi): 15.8 49.4 Atten Correction: not performed not performed Stress Agent: Treadmill Resting Blood Press: 118/82 mmHg Image Quality The overall study imaging quality was deemed to be fair. The following technical issues were noted: Breast attenuation. FINDINGS: Left Ventricle Wall Motion: 1 - All segments are normal. 1 1 LVEF: 71 % LEFT VENTRICLE The left ventricle is normal in size. Left ventricular systolic function is normal. Right Ventricle The right ventricle is normal in size. Stress Test Findings: There is no scintigraphic evidence for inducible ischemia. There is no evidence of scarring. Final ------ Stress ECG Report: [facility] Date of service: 07/13/2020 1:17:42 PM Ordering physician: TOMASZ GAARY Specialist: Stacey Antonio Ore Digger: Yohana Okeefe Stress ECG interpreting physician: Mackenzie Perkins DO PATIENT: Name: MS. CURLY COWART Age: 35 years Gender: F Height: 0.00 cm BSA: 0.00 m? Weight: 0.00 kg BMI: STRESS ECG CONCLUSION: Conclusion: Normal STRESS ECG SUMMARY: The patient's resting heart rate was 68 bpm and blood pressure was 118/82 mmHg. The patient exercised according to the Jeromy protocol. Total exercise time was 6 minutes and 0 seconds. The maximum heart rate was 181 bpm, which is 99% predicted for age. METs achieved was 6.1. The double product achieved was [address]. Peak heart rate was 181 bpm and peak blood pressure was 154/90 mmHg. STRESS ECG FINDINGS: Indications: CP - ECG interpretable AND able to exercise with intermediate/hi Diagnosis: Obesity, Hyperthyroidism, Sleep Apnea and Ventricular Tachycardia Medications: Antidepressants and Diuretics Medications: ASA Resting ECG: Normal Sinus Rhythm Exercise Protocol: Jeromy Stress Test: +----+ +---- ----+ +---+-- -+---+---+----+ Step Speed (MPH) Grade(%) Time (min) HR SYS ARELI RPE METS +----+ +---- ----+ +---+-- -+---+---+----+ 1 1.7 10.0 3.0 164 136 82 14 4.2 +----+ +---- ----+ +---+-- -+---+---+----+ +-----+ +--- -----+ +---+- --+---+---+----+ Speed (MPH) Grade(%) Time (min) HR SYS ARELI RPE METS +-----+ +--- -----+ +---+- --+---+---+----+ Final 2.5 12.0 6.00 181 154 90 17 6.1 +-----+ +--- -----+ +---+- --+---+---+----+ Recovery: +----+ +---+- --+---+ Step Time (min) HR SYS ARELI +----+ +---+- --+---+ 1 1.0 169 158 82 +----+ +---+- --+---+ 2 3.0 131 120 80 +----+ +---+- --+---+ 3 5.0 112 112 80 +----+ +---+- --+---+ 4 7.0 108 +----+ +---+- --+---+ 5 9.0 100 +----+ +---+- --+---+ Resting HR: 68 bpm Peak HR: 181 bpm (99% MPHR) Resting BP: 118 / 82 mmHg Peak BP: 154 / 90 mmHg Total Exercise Time: 6 minutes 0 seconds METS achieved: 6.1 Chronotropic response index (CRI): 1.29 Heart rate recovery (HRR): 12 bpm Rate Pressure Product (RPP): 22065 Bhakta Treadmill Score: 4.8 Reason for test termination: Leg Fatigue and Shortness of Breath. Symptoms during test: Shortness of breath, fatigue and leg pain. Heart rate response: Normal CRI (>0.8 Not on B Waldo) Functional Capacity: Poor functional capacity Blood pressure response: Normal BP response ST segment and T wave changes: No ST changes Bhakta Treadmill Score: Abnormal Bhakta Treadmill Score (<5 but >= -10) Arrhythmias: No arrhythmias Comments: Patient had an ablation in August 2018 for ventricular tachycardia Final ------ Stress Temperature Regulator Pyrometer Report: [facility] Date of service: 07/13/2020 1:17:42 PM Supervising physician: Brooks Diaz MD PATIENT: Name: MS. CURLY COWART Age: 35 years Gender: F The supervising physician was present during the stress procedure. Final Access Specialist: YURY Transcribe Date/Time: Jul 13 2020 1:17P Dictated by : MACKENZIE PERKINS DO This examination was interpreted and the report reviewed and electronically signed by: MACKENZIE PERKINS DO on Jul 13 2020 5:22PM EST [id number] [facility] PROGRESSon 07-13-2020 PROGRESS HNO ID: [id number] Author: Mackenzie (Natalie) NATALIE Hernandez Service: Nuclear Medicine Author Type: Clinical Supervisor Telephone Information Type: Progress Notes Filed: 07/13/2020 2:24 PM Note Text: RADIOLOGY SERVICE PROGRESS NOTE SERVICE DATE: 07/13/2020 SERVICE TIME: 2:20 PM PATIENT IDENTITY VERIFICATION COMPLETED USING TWO (2) STANDARD IDENTIFIERS: Name and Date of confirmed by patient verbally and Name and Date of confirmed by identification band FALL SCREENING: Has the patient had 2 falls in the last year or 1 fall with injury or currently using an Ambulatory Assistive Device (Walker, Cane, Wheelchair, Crutches, etc.)? No PATIENT GENDER DATA: .female : No ALLERGIES: Reviewed and unchanged MEDICATIONS REVIEWED: Not applicable PATIENT RELEVANT IMPLANT DATA REVIEWED: Not Applicable CREATININE: Creatinine Date Value Ref Range Status 01/06/2020 0.74 0.58 - 0.96 mg/dL Final 02/12/2019 0.65 0.58 - 0.96 mg/dL Final 09/23/2018 0.64 0.58 - 0.96 mg/dL Final eGFR-All Other Races Date Value Ref Range Status 01/06/2020 >60 . Final Comment: eGFR (Estimated GFR) [...] GFR. eGFR- Date Value Ref Range Status 01/06/2020 >60 Final P.O.C.T. RESULTS: N/A July 13, [address] PERFORMED: No IV SITE: Ambulatory: A peripheral IV was started in the Right forearm with a Angio cath: 22 gauge. POST EXAM PIV STATUS: Discontinued PROCEDURE TYPE: ME Stress: 15.8mCi Tx32q-Ijeghde was administered IV for Rest Imaging at 12:54 by NATALIE Stock. 49.4 mCi Zs25m-Wtwjjda was administered IV for Stress Imaging at 14:15 by NATALIE Stock. PATIENT DISCHARGED TO: Ambulatory patient, left ME department area. A Diagnostic radioactive procedure has taken place, with no further precautions necessary other than routine body substance precautions. More information regarding radiation safety can be found using this link: [email or web address] [email or web address] SIGNATURE: NATALIE Stock PATIENT NAME: Curly Cowart DATE: July 13, 2020 TIME: 2:20 PM PAGER/CONTACT #: [facility] 07-10-2020 CNPN Telephone ([facility]) CURLY COWART ([id number]) 1985 F Date Time Provider Department 07/10/20 YOHANA OKEEFE (ANDRE) [facility] During your visit today, we recorded the following information about you: Yohana Okeefe RN, RN 07/10/2020 1:35 PM Signed Spoke with patient regarding reminder for stress test on Monday and given instructions Allergies As of Date: 07/10/2020 Noted Allergy Reaction HYDROCODONE-ACETAMINOP HEN 01/29/2016 4 - Hives 8 - GI Upset MORPHINE 08/24/2016 14 - Other: See Comments Comments: Abdominal pain NADOLOL 11/13/2018 9 - Itching PENICILLINS 01/28/2008 4 - Hives Date Reviewed: 06/29/2020 Reviewed by: Tomasz Garay - Fully Assessed Reason for Visit: Reminder Call [[id number]] Prescriptions as of 07/10/2020 Sig: VENLAFAXINE ER 75 MG CAPSULE,* Take 75 mg by mouth. VENLAFAXINE ER 37.5 MG CAPSUL* TAKE 1 CAPSULE BY MOUTH ONCE * ASPIRIN 81 MG TABLET,DELAYED * Take 1 tablet by mouth once d* HYDROCHLOROTHIAZIDE 25 MG TAB* Take 25 mg by mouth twice sandra* LORAZEPAM 0.5 MG TABLET Take 1 mg by mouth as needed. OMEPRAZOLE 20 MG CAPSULE,JADON* Take 40 mg by mouth once oscar* LEVOTHYROXINE 100 MCG TABLET Take one daily on empty stoma* Problem List As Of Date 07/10/2020 Noted Resolved Nonspecific abnormal results of liver function *03/03/2008 04/09/2015 Morbid obesity (HCC) [E66.01] 04/09/2015 Steatohepatitis, non-alcoholic [K75.81] 04/09/2015 More... Depression [F32.9] 04/09/2015 Chronic low back pain [M54.5, G89.29] 04/09/2015 Sleep apnea [G47.30] 04/21/2015 More... Vitamin D deficiency [E55.9] 01/25/2016 More... Hypothyroidism [E03.9] 05/31/2016 Wide-complex tachycardia (HCC) [I47.2] 09/18/2018 Obesity, Class III, BMI >= 40 [E66.01] 09/19/2018 Zjjxe-7-rasffyyxgem 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] 09/19/2018 Ankylosing spondylitis (HCC) [M45.9] 09/19/2018 Gastroesophageal reflux disease [K21.9] 09/19/2018 Inflammatory polyarthropathy (HCC) [M06.4] 07/09/2018 Sustained VT (ventricular tachycardia) (HCC) [I*09/20/2018 Ventricular tachycardia (HCC) [I47.2] 09/20/2018 More... Class 3 severe obesity in adult (HCC) [E66.01] 09/20/2018 BRISEYDA (obstructive sleep apnea) [G47.33] 09/20/2018 More... 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] 12/04/2018 Bilateral leg edema [R60.0] 12/04/2018 Anticoagulation management encounter [Z51.81, Z*12/04/2018 Encounter for screening for cardiovascular diso*06/29/2020 Precordial pain [R07.2] 06/29/2020 Encounter Status:Closed by YOHANA OKEEFE on 07/10/20 [facility] U Drug Screenon 01-02-2019 U Amph Scr Negative Normal Negative [facility] Comment on above: Performed By: #### 2 [id number] #### [facility] [employer] [address] [place] [address] U Radha Scr Negative Normal Negative [facility] Comment on above: Performed By: #### 2 [id number] #### [facility] [employer] [address] [place] [address] U Benzodia Scr Negative Normal Negative [facility] Comment on above: Performed By: #### 2 [id number] #### [facility] [employer] [address] [place] [address] U Cannab Scr Negative Normal Negative [facility] Comment on above: Performed By: #### 2 [id number] #### [facility] [employer] [address] [place] [address] U Cocaine Scr Negative Normal Negative [facility] Comment on above: Performed By: #### 2 [id number] #### [facility] [employer] [address] [place] [address] U Opiate Scr Negative Normal Negative [facility] Comment on above: Performed By: #### 2 [id number] #### [facility] [employer] [address] [place] [address] U PCP Scr Negative Normal Negative [facility] Comment on above: Performed By: #### 2 [id number] #### [facility] [employer] [address] [place] [address] BNP.on 11-21-2018 Natriuretic peptide B mass conc (Bld) 17 pg/mL Normal <=500 [facility] Comment on above: Result Comment: Noti ce: Effective 02/08/2017 the methodology for BNP testing has changed. BNP values less than or equal to 100 pg/mL is considered normal for patients without CHF.The decision threshold was determined by the 95% confidence limit of BNP concentration in the non-CHF population age 55 and older.It is recommended that a new baseline value be established using the new method if monitoring patient's BNP level. Performed By: #### C [id number] #### [facility] [employer] [address] [place] [address] CMPon 11-21-2018 Albumin mass conc 3.8 g/dL Normal 3.4-5.0 [facility] Comment on above: Performed By: #### 2 [id number] #### [facility] [employer] [address] [place], [place] [id number] Albumin/Globulin mass ratio 1.1 {ratio} Normal 1.1-1.9 [facility] Comment on above: Performed By: #### 2 [id number] #### [facility] [employer] [address] [place] [address]5523 Alk Phos 112 Int._Unit/L High 33-110 [facility] Comment on above: Performed By: #### 2 [id number] #### [facility] [employer] [address] [place] [address] 56073 ALT enzyme act/vol 123 Int._Unit/L High 7-45 [facility] Comment on above: Performed By: #### 2 [id number] #### [facility] [employer] [address] [place] [address] 42406 Anion gap molar conc 8 mmol/L Low 10-20 [facility] Comment on above: Performed By: #### 2 [id number] #### [facility] [employer] [address] [place] [address] 03176 AST enzyme act/vol 75 Int._Unit/L High 9-39 [facility] Comment on above: Performed By: #### 2 [id number] #### [facility] [employer] [address] [place] [address] 46956 Bili Total 0.39 mg/dL Normal 0.00-1.20 [facility] Comment on above: Performed By: #### 2 [id number] #### [facility] [employer] [address] [place], [place] [id number] Calcium mass conc 9.0 mg/dL Normal 8.6-10.3 [facility] Comment on above: Performed By: #### 2 [id number] #### [facility] [employer] [address] [place] [address]3580 Chloride molar conc 103 mmol/L Normal 98-107 [facility] Comment on above: Performed By: #### 2 [id number] #### [facility] [employer] [address] [place] [address] 31958 CO2 molar conc 30.0 mmol/L Normal 21.0-32.0 [facility] Comment on above: Performed By: #### 2 [id number] #### [facility] [employer] [address] [place] [address] 77764 Creatinine mass conc 0.6 mg/dL Normal 0.5-1.1 [facility] Comment on above: Performed By: #### 2 [id number] #### [facility] [employer] [address] [place] [address] 46058 Globulin mass conc (S) 3.0 g/dL Normal 2.0-4.0 [facility] Comment on above: Performed By: #### 2 [id number] #### [facility] [employer] [address] [place] [address] 92637 Glucose mass conc 108 mg/dL High 70-99 [facility] Comment on above: Performed By: #### 2 [id number] #### [facility] [employer] [address] [place] [address] 30025 Potassium molar conc 4.3 mmol/L Normal 3.5-5.3 [facility] Comment on above: Performed By: #### 2 [id number] #### [facility] [employer] [address] [place] [address]503 Protein mass conc 7.2 g/dL Normal 6.4-8.2 [facility] Comment on above: Performed By: #### 2 [id number] #### [facility] [employer] [address] [place] [address] 48713 Sodium molar conc 137 mmol/L Normal 136-145 [facility] Comment on above: Performed By: #### 2 [id number] #### [facility] [employer] [address] [place] [address] 10423 Urea nitrogen mass conc 12 mg/dL Normal 6-23 [facility] Comment on above: Performed By: #### 2 385184 #### [facility] [employer] [facility] [place] [address] Urea nitrogen/Creatinine mass ratio 20.0 ratio Normal 5.4-30.0 [facility] Comment on above: Performed By: #### 2 [id number] #### [facility] [employer] [facility] [place] [address] XR Chest 2 Viewson 9 XR Chest 2 Views Exam Date/Time: 11/21/2018 10:02 EDT Reason for Exam: Chest pain Report STUDY: XR Chest 2 Views; 11/21/2018 10:02 am INDICATION: Chest pain. COMPARISON: None. ACCESSION NUMBER(S): [id number] ORDERING CLINICIAN: Vargas Mujica FINDINGS: PA and lateral views of the chest were obtained. No focal infiltrate, pleural effusion or pneumothorax is identified. The cardiac silhouette is within normal limits for size. IMPRESSION: No focal infiltrate or pneumothorax. FINAL REPORT Dictated: 11/21/2018 11:06 am Douglas Franklin MD Signed (Electronic Signature): 11/21/2018 11:06 am Signed by: Douglas Franklin MD Technologist: MELISSA [facility] eGFRon 11-21-2018 GFR/1.73 sq M predicted among non-blacks MDRD vol rate/area (S/P/Bld) mL/min/{1.73_m2} [facility] Comment on above: Order Comment: Order added by Discern Expert. Performed By: #### 1 [id number] #### [facility]KE [employer] [address] [place] [address]28[address] Basic Panelon 09-19-2018 Creatinine mass conc 0.76 mg/dL Normal 0.51-0.95 [facility] Comment on above: Performed By: #### P 8 #### [place] [address] Calcium mass conc 8.5 mg/dL Normal 8.5-10.1 [facility] Comment on above: Performed By: #### P 8 #### [place] [address] Glucose mass conc 97 mg/dL Normal 70-99 [facility] Comment on above: Performed By: #### P 8 #### [facility] [address] [place], [place] [address] Urea nitrogen mass conc 8 mg/dL Normal 7-18 [facility] Comment on above: Performed By: #### P 8 #### [facility] [address] [place], [place] [address] Anion gap molar conc 12 mmol/L Normal 8-16 [facility] Comment on above: Performed By: #### P 8 #### [facility] [address] [place], [place] [address] CO2 molar conc 24 mmol/L Normal 21-32 [facility] Comment on above: Performed By: #### P 8 #### [facility] [address] [place] [address] Chloride molar conc 109 mmol/L High 98-107 [facility] Comment on above: Performed By: #### P 8 #### [facility] [address] [place] [address] Potassium molar conc 3.7 mmol/L Normal 3.5-5.1 [facility] Comment on above: Performed By: #### P 8 #### [facility] [address] [place] [address] Sodium molar conc 141 mmol/L Normal 136-145 [facility] Comment on above: Performed By: #### P 8 #### [facility] [address] [place] [address] Hemogramon 09-19-2018 Erythrocyte distribution width Ratio (RBC) 14.2 % Normal 11.7-14.4 [facility] Comment on above: Performed By: #### C BC1 #### [facility] [address] [place] [address] Hematocrit Volume Fraction (Bld) 42.3 % Normal 34.1-44.9 [facility] Comment on above: Performed By: #### C BC1 #### [facility] [address] [place] [address] Hemoglobin mass conc (Bld) 13.6 g/dL Normal 11.2-15.7 [facility] Comment on above: Performed By: #### C BC1 #### [facility] [address] [place] [address] MCH Entitic mass (RBC) 27.9 pg Normal 25.6-32.2 [facility] Comment on above: Performed By: #### C BC1 #### [facility] [address] [place] [address] MCHC mass conc (RBC) 32.2 % Normal 31.6-34.8 [facility] Comment on above: Performed By: #### C BC1 #### [facility] [address] [place] [address] MCV Entitic volume (RBC) 86.7 fL Normal 79.4-94.8 [facility] Comment on above: Performed By: #### C BC1 #### [facility] [address] [place] [address] Platelet mean volume Entitic volume (Bld) 11.1 fL Normal 9.4-12.3 [facility] Comment on above: Performed By: #### C BC1 #### [facility] [address] [place] [address] Platelets #/vol (Bld) 205 thou/cmm Normal 182-369 [facility] Comment on above: Performed By: #### C BC1 #### [facility] [address] [place] [address] RBC #/vol (Bld) 4.88 mil/cmm Normal 3.93-5.22 [facility] Comment on above: Performed By: #### C BC1 #### [facility] [address] [place] [address] RDW SD 44.6 fl Normal 36.4-46.3 [facility] Comment on above: Performed By: #### C BC1 #### [facility] [address] [place] [address] WBC #/vol (Bld) 9.68 thou/cmm Normal 3.98-10.04 [facility] Comment on above: Performed By: #### C BC1 #### [address] [place], [place] [address] LEVEL 1 DEPT VISIT/EST MRIon 09-19-2018 Protein mass conc Performed at [facility] APPROVED BY: Danny Suárez MD Exam: Attempted MRI on 09/19/2018 15:17. Technique: The patient was scheduled for an MRI. An MRI was attempted per physician order. The patient does not fit into the scanner. IMPRESSION: Unable to perform MRI. Normal [facility] MDRD GFRon 09-19-2018 GFR/1.73 sq M predicted among non-blacks MDRD vol rate/area (S/P/Bld) mL/min/{1.73_m2} Normal >60mL/min/1.7 3m2 [facility] Comment on above: Result Comment: If t he patient is , multiply the result by 1.210. Performed By: #### G FR #### [place] [address] Magnesium Bloodon 09-19-2018 Magnesium mass conc 2.0 mg/dL Normal 1.6-2.6 [facility] Comment on above: Performed By: #### M AG #### [place] [id number] Vital Signs Date Time Vital Sign Value Performing Clinician Facility 01-28-2025 14:16-0400 Body mass index (BMI) [Ratio] 54.72 kg/m2 Johanny Marmolejo APRN.CNP Work Phone: [facility] 01-28-2025 14:16-0400 Body weight 153.77 kg Johanny Marmolejo APRN.HOT WORKER Work Phone: [facility] 01-28-2025 14:16-0400 Diastolic blood pressure 78 mm[Hg] Johanny Marmolejo APRN.HOT WORKER Work Phone: [facility] 01-28-2025 14:16-0400 Heart rate 72 /min Johanny Marmolejo APRN.CNP Work Phone: [facility] 01-28-2025 14:16-0400 SaO2% (BldA) [Mass fraction] 98 % Johanny Marmolejo APRN.HOT WORKER Work Phone: [facility] 01-28-2025 14:16-0400 Systolic blood pressure 128 mm[Hg] Johannylevar Marmolejo APRN.HOT WORKER Work Phone: [facility] 11-06-2024 15:19-0400 Body height 170.2 cm Vargas Guanako PA-C Work Phone: [facility] 11-06-2024 15:19-0400 Body mass index (BMI) [Ratio] 55.26 kg/m2 Vargas Willow Wood PA-C Work Phone: [facility] 11-06-2024 15:19-0400 Body weight 160.03 kg Vargas Willow Wood PA-C Work Phone: [facility] 11-06-2024 15:19-0400 Diastolic blood pressure 88 mm[Hg] Vargas Guanako PA-C Work Phone: [facility] 11-06-2024 15:19-0400 Heart rate 91 /min Vargas Guanako PA-C Work Phone: [facility] 11-06-2024 15:19-0400 Systolic blood pressure 142 mm[Hg] Vargas Willow Wood PA-C Work Phone: [facility] 07-11-2024 08:46-0500 Body height 170.2 cm Vargas Willow Wood PA-C Work Phone: [facility] 07-11-2024 08:46-0500 Body mass index (BMI) [Ratio] 53.41 kg/m2 Vargas Willow Wood PA-C Work Phone: [facility] 07-11-2024 08:46-0500 Body weight 154.68 kg Vargas Willow Wood PA-C Work Phone: [facility] 07-11-2024 08:46-0500 Diastolic blood pressure 85 mm[Hg] Vargas Uganako PA-C Work Phone: [facility] 07-11-2024 08:46-0500 Heart rate 79 /min Vargas WATKINS-Rina Work Phone: [facility] 07-11-2024 08:46-0500 Systolic blood pressure 129 mm[Hg] Vargas Morenoall PA-C Work Phone: [facility] 06-07-2024 16:11-0400 Body mass index (BMI) [Ratio] 54.02 kg/m2 Chloé Brigotti AIR EXPORT COORDINATOR.HOT WORKER Work Phone: [facility] 06-07-2024 16:11-0400 Body temperature 97.2 [degF] Chloé Brigotti AIR EXPORT COORDINATOR.HOT WORKER Work Phone: [facility] 06-07-2024 16:11-0400 Body weight 151.8 kg Chloé Brigotti AIR EXPORT COORDINATOR.HOT WORKER Work Phone: [facility] 06-07-2024 16:11-0400 Diastolic blood pressure 86 mm[Hg] Chloé Brigotti AIR EXPORT COORDINATOR.HOT WORKER Work Phone: [facility] 06-07-2024 16:11-0400 Heart rate 98 /min Chloé Brigotti AIR EXPORT COORDINATOR.HOT WORKER Work Phone: [facility] 06-07-2024 16:11-0400 Respiratory rate 16 /min Chloé Brigotti AIR EXPORT COORDINATOR.HOT WORKER Work Phone: [facility] 06-07-2024 16:11-0400 SaO2% (BldA) [Mass fraction] 99 % Chloé Brigotti AIR EXPORT COORDINATOR.HOT WORKER Work Phone: [facility] 06-07-2024 16:11-0400 Systolic blood pressure 128 mm[Hg] Chloé Brigotti AIR EXPORT COORDINATOR.HOT WORKER Work Phone: [facility] 04-24-2024 15:24-0400 Body mass index (BMI) [Ratio] 52.77 kg/m2 Delfin Jain AIR EXPORT COORDINATOR.HOT WORKER Work Phone: [facility] 04-24-2024 15:24-0400 Body temperature 98.49 [degF] Delfin Jain APRN.HOT WORKER Work Phone: [facility] 04-24-2024 15:24-0400 Body weight 148.3 kg Delfinjeferson Jain APRN.HOT WORKER Work Phone: [facility] 04-24-2024 15:24-0400 Diastolic blood pressure 86 mm[Hg] Delfin Jain APRN.HOT WORKER Work Phone: [facility] 04-24-2024 15:24-0400 Heart rate 88 /min Delfin Jain APRN.HOT WORKER Work Phone: [facility] 04-24-2024 15:24-0400 Respiratory rate 20 /min Delfin Jain APRN.HOT WORKER Work Phone: [facility] 04-24-2024 15:24-0400 SaO2% (BldA) [Mass fraction] 98 % Delfin Jain APRN.HOT WORKER Work Phone: [facility] 04-24-2024 15:24-0400 Systolic blood pressure 132 mm[Hg] Delfin Jain APRN.HOT WORKER Work Phone: [facility] 02-28-2024 13:20-0400 Body height 170.2 cm Vargas Mujica PA-C Work Phone: [facility] 02-28-2024 13:20-0400 Body mass index (BMI) [Ratio] 51.22 kg/m2 Vargas Mujica PA-C Work Phone: [facility] 02-28-2024 13:20-0400 Body weight 148.33 kg Vargas Mujica PA-C Work Phone: [facility] 02-28-2024 13:20-0400 Diastolic blood pressure 77 mm[Hg] Vargas Mujica PA-C Work Phone: [facility] 02-28-2024 13:20-0400 Heart rate 61 /min Vargas Mujica PA-C Work Phone: [facility] 02-28-2024 13:20-0400 Systolic blood pressure 111 mm[Hg] Vargas Mujica PA-C Work Phone: [facility] 10-19-2023 12:00-0500 Body temperature 98.1 [degF] [facility] 10-19-2023 12:00-0500 Diastolic blood pressure 98 mm[Hg] [facility] 10-19-2023 12:00-0500 Heart rate 84 /min [facility] 10-19-2023 12:00-0500 Respiratory rate 18 /min [facility] 10-19-2023 12:00-0500 SaO2% (BldA) [Mass fraction] 99 % [facility] 10-19-2023 12:00-0500 Systolic blood pressure 132 mm[Hg] [facility] 10-19-2023 09:13-0500 Body height 165.1 cm [facility] 10-19-2023 09:13-0500 Body mass index (BMI) [Ratio] 51.4 kg/m2 [facility] 10-19-2023 09:13-0500 Body weight 140.21 kg [facility] 10-03-2023 13:24-0500 Diastolic blood pressure 70 mm[Hg] [facility] 10-03-2023 13:24-0500 Heart rate 62 /min [facility] 10-03-2023 13:24-0500 Systolic blood pressure 148 mm[Hg] [facility] 10-03-2023 09:51-0500 Body mass index (BMI) [Ratio] 51.2 kg/m2 [facility] 10-03-2023 09:51-0500 Body temperature 98.4 [degF] [facility] 10-03-2023 09:51-0500 Body weight 139.88 kg [facility] 10-03-2023 09:51-0500 Respiratory rate 18 /min [facility] 10-03-2023 09:51-0500 SaO2% (BldA) [Mass fraction] 100 % [facility] 09-25-2023 08:05-0500 Body height 165.1 cm Vargaspili Morenoall PA-C Work Phone: [facility] 09-25-2023 08:05-0500 Body mass index (BMI) [Ratio] 50.42 kg/m2 Vargaspili EdenWillow Wood PA-C Work Phone: [facility] 09-25-2023 08:05-0500 Body weight 137.44 kg Vargaspili Morenoall PA-C Work Phone: [facility] 09-25-2023 08:05-0500 Diastolic blood pressure 80 mm[Hg] Vargaspili Morenoall PA-C Work Phone: [facility] 09-25-2023 08:05-0500 Heart rate 80 /min Vargaspili Morenoall PA-C Work Phone: [facility] 09-25-2023 08:05-0500 Systolic blood pressure 124 mm[Hg] Vargaspili Morenoall PA-C Work Phone: [facility] 05-15-2023 18:52-0400 Blood Pressure Location KVNG DOMINGUEZ MD [facility] 05-15-2023 18:52-0400 Blood Pressure Method KVNG DOMINGUEZ MD [facility] 05-15-2023 18:52-0400 Diastolic Blood Pressure Non-Invasive 76 [address] [facility] 05-15-2023 18:52-0400 Heart rate 73 /min KVNG DOMINGUEZ MD [facility] 05-15-2023 18:52-0400 Respiratory rate 18 /min KVNG DOMINGUEZ MD [facility] 05-15-2023 18:52-0400 Systolic Blood Pressure Non-Invasive 105 [address] [facility] 05-15-2023 16:31-0400 Blood Pressure Location KVNG DOMINGUEZ MD [facility] 05-15-2023 16:31-0400 Blood Pressure Method KVNG DOMINGUEZ MD [facility] 05-15-2023 16:31-0400 Body temperature 98.24 [degF] KVNG DOMINGUEZ MD [facility] 05-15-2023 16:31-0400 Diastolic Blood Pressure Non-Invasive 85 [address] [facility] 05-15-2023 16:31-0400 Heart rate 82 /min KVNG DOMINGUEZ MD [facility] 05-15-2023 16:31-0400 Respiratory rate 18 /min KVNG DOMINGUEZ MD [facility] 05-15-2023 16:31-0400 Systolic Blood Pressure Non-Invasive 112 [address] [facility] 02-09-2023 15:24-0400 Body height 165.1 cm Vargas Mujica PA-C Work Phone: [facility] 02-09-2023 15:24-0400 Body mass index (BMI) [Ratio] 52.25 kg/m2 Vargas WATKINS-C Work Phone: [facility] 02-09-2023 15:24-0400 Body weight 142.43 kg Vargas WATKINS-Rina Work Phone: [facility] 02-09-2023 15:24-0400 Diastolic blood pressure 64 mm[Hg] Vargas WATKINS-C Work Phone: [facility] 02-09-2023 15:24-0400 Heart rate 72 /min Vargas Willow Wood PA-C Work Phone: [facility] 02-09-2023 15:24-0400 Systolic blood pressure 120 mm[Hg] Vargas Guanako PA-C Work Phone: [facility] 01-05-2023 07:12-0400 Body height 167.64 cm PA Vargas Guanako PA Work Phone: [facility] 01-05-2023 07:12-0400 Body mass index (BMI) [Ratio] 51.2 kg/m2 PA Vargas Willow Wood PA Work Phone: [facility] 01-05-2023 07:12-0400 Body temperature 98.1 [degF] PA Vargas Willow Wood PA Work Phone: [facility] 01-05-2023 07:12-0400 Body weight 144.2 kg PA Vargas Guanako PA Work Phone: [facility] 01-05-2023 07:12-0400 Diastolic blood pressure 90 mm[Hg] PA Vargas Guanako PA Work Phone: [facility] 01-05-2023 07:12-0400 Heart rate 63 /min PA Vargas Guanako PA Work Phone: [facility] 01-05-2023 07:12-0400 Respiratory rate 14 /min PA Vargas Willow Wood PA Work Phone: [facility] 01-05-2023 07:12-0400 SaO2% (BldA) [Mass fraction] 97 % PA Vargas Guanako PA Work Phone: [facility] 01-05-2023 07:12-0400 Systolic blood pressure 141 mm[Hg] PA Vargas Willow Wood PA Work Phone: [facility] 01-01-2023 09:17-0400 Body temperature 98.49 [degF] Shahid Gamble APRN.CNP Work Phone: [facility] 01-01-2023 09:17-0400 Body weight 99.34 kg Shahid Gamble AIR EXPORT COORDINATOR.HOT WORKER Work Phone: [facility] 01-01-2023 09:17-0400 Diastolic blood pressure 78 mm[Hg] Shahid Gamble AIR EXPORT COORDINATOR.HOT WORKER Work Phone: [facility] 01-01-2023 09:17-0400 Heart rate 79 /min Shahid Gamble AIR EXPORT COORDINATOR.HOT WORKER Work Phone: [facility] 01-01-2023 09:17-0400 Respiratory rate 18 /min Shahid Gamble AIR EXPORT COORDINATOR.HOT WORKER Work Phone: [facility] 01-01-2023 09:17-0400 SaO2% (BldA) [Mass fraction] 98 % Shahid Gamble AIR EXPORT COORDINATOR.HOT WORKER Work Phone: [facility] 01-01-2023 09:17-0400 Systolic blood pressure 112 mm[Hg] Shahid Gamble AIR EXPORT 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.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 Work Phone: [facility] 11-15-2022 13:42-0400 Diastolic blood pressure 89 mm[Hg] PA Vargaspili Morenoall PA Work Phone: [facility] 11-15-2022 13:42-0400 Heart rate 57 /min PA Vargas Willow Wood PA Work Phone: [facility] 11-15-2022 13:42-0400 Respiratory rate 21 /min PA Vargas Guanako PA Work Phone: [facility] 11-15-2022 13:42-0400 SaO2% (BldA) [Mass fraction] 98 % PA Vargas Willow Wood PA Work Phone: [facility] 11-15-2022 13:42-0400 Systolic blood pressure 127 mm[Hg] PA Vargas Guanako PA Work Phone: [facility] 11-15-2022 11:50-0400 Body height 167.64 cm PA Vargas Willow Wood PA Work Phone: [facility] 11-15-2022 11:50-0400 Body mass index (BMI) [Ratio] 53.8 kg/m2 PA Vargaspili Morenoall PA Work Phone: [facility] 11-15-2022 11:50-0400 Body temperature 97.3 [degF] PA Vargas Guanako PA Work Phone: [facility] 11-15-2022 11:50-0400 Body weight 151.49 kg PA Vargaspili Morenoall PA Work Phone: [facility] 11-08-2022 11:11-0400 Body temperature 98.29 [degF] Krislyn Aberegg PA Work Phone: [facility] 11-08-2022 11:11-0400 Body weight 152.5 kg Krislyn Aberegg PA Work Phone: [facility] 11-08-2022 11:11-0400 Diastolic blood pressure 76 mm[Hg] Krislyn Aberegg PA Work Phone: [facility] 11-08-2022 11:11-0400 Heart rate 72 /min Krislyn Aberegg PA Work Phone: [facility] 11-08-2022 11:11-0400 Respiratory rate 18 /min Krislyn Aberegg PA Work Phone: [facility] 11-08-2022 11:11-0400 SaO2% (BldA) [Mass fraction] 97 % Krislyn Aberegg PA Work Phone: [facility] 11-08-2022 11:11-0400 Systolic blood pressure 118 mm[Hg] Krislyn Aberegg PA Work Phone: [facility] 09-22-2022 13:27-0500 Body temperature 98.4 [degF] Delfin Jain APRN.HOT WORKER Work Phone: [facility] 09-22-2022 13:27-0500 Body weight 156.58 kg Delfin Jain APRN.HOT WORKER Work Phone: [facility] 09-22-2022 13:27-0500 Diastolic blood pressure 76 mm[Hg] Delfin Jain AIR EXPORT COORDINATOR.HOT WORKER Work Phone: [facility] 09-22-2022 13:27-0500 Heart rate 99 /min Delfin Jain AIR EXPORT COORDINATOR.HOT WORKER Work Phone: [facility] 09-22-2022 13:27-0500 Respiratory rate 22 /min Delfinjeferson Jain APRN.HOT WORKER Work Phone: [facility] 09-22-2022 13:27-0500 SaO2% (BldA) [Mass fraction] 98 % Delfintani Jain APRN.HOT WORKER Work Phone: [facility] 09-22-2022 13:27-0500 Systolic blood pressure 128 mm[Hg] Delfin Jain AIR EXPORT COORDINATOR.HOT WORKER Work Phone: [facility] 08-17-2022 11:33-0500 Diastolic blood pressure 95 mm[Hg] [facility] 08-17-2022 11:33-0500 Heart rate 72 /min [facility] 08-17-2022 11:33-0500 Respiratory rate 16 /min [facility] 08-17-2022 11:33-0500 SaO2% (BldA) [Mass fraction] 98 % [facility] 08-17-2022 11:33-0500 Systolic blood pressure 122 mm[Hg] [facility] 08-17-2022 08:08-0500 Body height 167.64 cm [facility] Work Phone: 08-17-2022 08:08-0500 Body mass index (BMI) [Ratio] 56.5 kg/m2 [facility] 08-17-2022 08:08-0500 Body temperature 96.9 [degF] [facility] 08-17-2022 08:08-0500 Body weight 158.75 kg [facility] 07-27-2022 08:10-0500 Body height 165.1 cm Vargas Mujica Work Phone: [facility] Work Phone: 07-27-2022 08:10-0500 Body mass index (BMI) [Ratio] 59.24 kg/m2 Vargas Mujica Work Phone: [facility] Work Phone: 07-27-2022 08:10-0500 Body surface area Derived from formula 2.53 m2 Vargas Mujica Work Phone: [facility] Work Phone: 07-27-2022 08:10-0500 Body weight 161.48 kg Vargas Mujica Work Phone: [facility] Work Phone: 07-27-2022 08:10-0500 Diastolic blood pressure 83 mm[Hg] Vargas Mujica Work Phone: [facility] Work Phone: 07-27-2022 08:10-0500 Heart rate 80 /min Vargas Mujica Work Phone: [facility] Work Phone: 07-27-2022 08:10-0500 Systolic blood pressure 133 mm[Hg] Vargas Mujica Work Phone: [facility] Work Phone: 07-12-2022 07:44-0500 Body height 167.[address] Work Phone: [facility] 07-12-2022 07:44-0500 Body weight 148.[address] Work Phone: [facility] 07-12-2022 07:41-0500 Body height 167.6 cm Marjan Eddy AIR EXPORT COORDINATOR.HOT WORKER Work Phone: [facility] 07-12-2022 07:41-0500 Body weight 148.78 kg Marjan Harveyky AIR EXPORT COORDINATOR.HOT WORKER Work Phone: [facility] 06-03-2022 08:47-0400 Body weight 159.[address] Work Phone: [facility] 06-02-2022 09:07-0400 Body height 167.6 cm Marjan Gromovsky AIR EXPORT COORDINATOR.HOT WORKER Work Phone: [facility] 06-02-2022 09:07-0400 Body weight 159.67 kg Marjan Gromovsky AIR EXPORT COORDINATOR.HOT WORKER Work Phone: [facility] 04-21-2022 12:41-0400 Body height 167.[address] Work Phone: [facility] 04-21-2022 12:41-0400 Body weight [address] Work Phone: [facility] 04-19-2022 09:56-0400 Body height 167.6 cm Marjan Gromovsky AIR EXPORT COORDINATOR.HOT WORKER Work Phone: [facility] 04-19-2022 09:56-0400 Body weight 176.18 kg Marjan Gromovsky AIR EXPORT COORDINATOR.HOT WORKER Work Phone: [facility] 04-19-2022 09:56-0400 Diastolic blood pressure 97 mm[Hg] Marjan Gromovsky AIR EXPORT COORDINATOR.HOT WORKER Work Phone: [facility] 04-19-2022 09:56-0400 Heart rate 80 /min Marjan Gromovsky AIR EXPORT COORDINATOR.HOT WORKER Work Phone: [facility] 04-19-2022 09:56-0400 Systolic blood pressure 135 mm[Hg] Marjan Gromovsky AIR EXPORT COORDINATOR.HOT WORKER Work Phone: [facility] 03-31-2022 11:31-0400 Body height 167.6 cm Marjan Gromovsky AIR EXPORT COORDINATOR.HOT WORKER Work Phone: [facility] 03-31-2022 11:31-0400 Body weight 183.71 kg Marjan Gromovsky AIR EXPORT COORDINATOR.HOT WORKER Work Phone: [facility] 03-30-2022 08:53-0400 Body height 165.1 cm Vargas Mujica Work Phone: [facility] Work Phone: 03-30-2022 08:53-0400 Body mass index (BMI) [Ratio] 68.06 kg/m2 Vargas Mujica Work Phone: [facility] Work Phone: 03-30-2022 08:53-0400 Body surface area Derived from formula 2.68 m2 Vargas Mujica Work Phone: [facility] Work Phone: 03-30-2022 08:53-0400 Body weight 185.52 kg Vargas Mujica Work Phone: [facility] Work Phone: 03-30-2022 08:53-0400 Diastolic blood pressure 74 mm[Hg] Vargas Mujica Work Phone: [facility] Work Phone: 03-30-2022 08:53-0400 Heart rate 98 /min Vargas Mujica Work Phone: [facility] Work Phone: 03-30-2022 08:53-0400 Systolic blood pressure 132 mm[Hg] Vargas Mujica Work Phone: [facility] Work Phone: 03-24-2022 10:42-0400 Body height 167.6 cm Tata Rosas MD Work Phone: [facility] 03-24-2022 10:42-0400 Body weight 183.71 kg Tata Rosas MD Work Phone: [facility] 03-16-2022 09:44-0400 Body height 167.[address] Work Phone: [facility] 03-16-2022 09:44-0400 Body weight 183.[address] Work Phone: [facility] 02-15-2022 08:22-0400 Body height 167.[address] Work Phone: [facility] 02-15-2022 08:22-0400 Body weight 183.[address] Work Phone: [facility] 02-15-2022 08:21-0400 Body height 167.6 cm Marjan Gromovsky AIR EXPORT COORDINATOR.HOT WORKER Work Phone: [facility] 02-15-2022 08:21-0400 Body weight 183.71 kg Marjan Gromovsky AIR EXPORT COORDINATOR.HOT WORKER Work Phone: [facility] 01-18-2022 08:47-0400 Body height 167.6 cm Marjan Gromovsky AIR EXPORT COORDINATOR.HOT WORKER Work Phone: [facility] 01-18-2022 08:47-0400 Body weight 187.79 kg Marjan Gromovsky AIR EXPORT COORDINATOR.HOT WORKER Work Phone: [facility] 01-13-2022 10:48-0400 Body height 167.6 cm Brooks Soto MD Work Phone: [facility] 01-13-2022 10:48-0400 Body weight 187.97 kg Brooks Soto MD Work Phone: [facility] 01-13-2022 10:48-0400 Diastolic blood pressure 76 mm[Hg] Brooks Soto MD Work Phone: [facility] 01-13-2022 10:48-0400 Heart rate 100 /min Brooks Soto MD Work Phone: [facility] 01-13-2022 10:48-0400 SaO2% (BldA) [Mass fraction] 96 % Brooks Soto MD Work Phone: [facility] 01-13-2022 10:48-0400 Systolic blood pressure 128 mm[Hg] Brooks Soto MD Work Phone: [facility] 01-03-2022 15:28-0400 Body height 167.6 cm Hung Emerson MD Work Phone: [facility] 01-03-2022 15:28-0400 Body temperature 97 [degF] Hung Emerson MD Work Phone: [facility] 01-03-2022 15:28-0400 Body weight 188.24 kg Hung Emerson MD Work Phone: [facility] 01-03-2022 15:28-0400 Diastolic blood pressure 88 mm[Hg] Hung Emerson MD Work Phone: [facility] 01-03-2022 15:28-0400 Heart rate 86 /min Hung Emerson MD Work Phone: [facility] 01-03-2022 15:28-0400 Respiratory rate 20 /min Hung Emerson MD Work Phone: [facility] 01-03-2022 15:28-0400 SaO2% (BldA) [Mass fraction] 97 % Hung Emerson MD Work Phone: [facility] 01-03-2022 15:28-0400 Systolic blood pressure 138 mm[Hg] Hung Emerson MD Work Phone: [facility] 12-28-2021 09:30-0400 Body height 165.1 cm Vargas Mujica Work Phone: [facility] Work Phone: 12-28-2021 09:30-0400 Diastolic blood pressure 72 mm[Hg] Vargas Mujica Work Phone: [facility] Work Phone: 12-28-2021 09:30-0400 Heart rate 96 /min Vargas Mujica Work Phone: [facility] Work Phone: 12-28-2021 09:30-0400 Systolic blood pressure 120 mm[Hg] Vargas Mujica Work Phone: [facility] Work Phone: 12-27-2021 08:08-0400 Body height 167.[address] Work Phone: [facility] 12-27-2021 08:08-0400 Body weight 190.[address] Work Phone: [facility] 12-24-2021 08:37-0400 Body height 167.6 cm Marjan Gromovsky AIR EXPORT COORDINATOR.HOT WORKER Work Phone: [facility] 12-24-2021 08:37-0400 Body weight 187.79 kg Marjan Gromovsky AIR EXPORT COORDINATOR.HOT WORKER Work Phone: [facility] 12-24-2021 08:37-0400 Diastolic blood pressure 80 mm[Hg] Marjan Gromovsky AIR EXPORT COORDINATOR.HOT WORKER Work Phone: [facility] 12-24-2021 08:37-0400 Heart rate 97 /min Marjan Gromovsky AIR EXPORT COORDINATOR.HOT WORKER Work Phone: [facility] 12-24-2021 08:37-0400 Respiratory rate 18 /min Marjan Gromovsky AIR EXPORT COORDINATOR.HOT WORKER Work Phone: [facility] 12-24-2021 08:37-0400 SaO2% (BldA) [Mass fraction] 96 % Marjan Gromovsky AIR EXPORT COORDINATOR.HOT WORKER Work Phone: [facility] 12-24-2021 08:37-0400 Systolic blood pressure 120 mm[Hg] Marjan Gromovsky AIR EXPORT COORDINATOR.HOT WORKER Work Phone: [facility] 11-19-2021 08:25-0400 Body height 167.6 cm Marjan Gromovsky AIR EXPORT COORDINATOR.HOT WORKER Work Phone: [facility] 11-19-2021 08:25-0400 Body weight 185.52 kg Marjan Gromovsky AIR EXPORT COORDINATOR.HOT WORKER Work Phone: [facility] 03-17-2022 08:48-0400 Body height 165.1 cm Vargas Mujica Work Phone: [facility] Work Phone: 11-11-2021 08:48-0400 Body mass index (BMI) [Ratio] 68.06 kg/m2 Vargas Mujica Work Phone: [facility] Work Phone: 11-11-2021 08:48-0400 Body surface area Derived from formula 2.68 m2 Vargas Mujica Work Phone: [facility] Work Phone: 11-11-2021 08:48-0400 Body weight 185.52 kg Vargas Mujica Work Phone: [facility] Work Phone: 11-11-2021 08:48-0400 Diastolic blood pressure 82 mm[Hg] Vargas Mujica Work Phone: [facility] Work Phone: 11-11-2021 08:48-0400 Heart rate 102 /min Vargas Mujica Work Phone: [facility] Work Phone: 11-11-2021 08:48-0400 Systolic blood pressure 114 mm[Hg] Vargas Mujica Work Phone: [facility] Work Phone: 07-28-2021 09:20-0500 Body height 165.1 cm Vargas Mujica Work Phone: [facility] Work Phone: 07-28-2021 09:20-0500 Body mass index (BMI) [Ratio] 66.4 kg/m2 Vargas Mujica Work Phone: [facility] Work Phone: 07-28-2021 09:20-0500 Body surface area Derived from formula 2.65 m2 Vargas Mujica Work Phone: [facility] Work Phone: 07-28-2021 09:20-0500 Body weight 180.99 kg Vargas Mujica Work Phone: [facility] Work Phone: 07-28-2021 09:20-0500 Diastolic blood pressure 76 mm[Hg] Vargas Mujica Work Phone: [facility] Work Phone: 07-28-2021 09:20-0500 Heart rate 79 /min Vargas Mujica Work Phone: [facility] Work Phone: 07-28-2021 09:20-0500 SaO2% (BldA) [Mass fraction] 97 % Vargas Mujica Work Phone: [facility] Work Phone: 07-28-2021 09:20-0500 Systolic blood pressure 124 mm[Hg] Vargas Mujica Work Phone: [facility] Work Phone: 05-25-2021 15:58-0400 Body height 165.1 cm Vargas Mujica Work Phone: [facility] Work Phone: 05-25-2021 15:58-0400 Body mass index (BMI) [Ratio] 64.9 kg/m2 Vargas Mujica Work Phone: [facility] Work Phone: 05-25-2021 15:58-0400 Body surface area Derived from formula 2.63 m2 Vargas Mujcia Work Phone: [facility] Work Phone: 05-25-2021 15:58-0400 Body weight 176.9 kg Vargas Mujica Work Phone: [facility] Work Phone: 05-25-2021 15:58-0400 Diastolic blood pressure 76 mm[Hg] Vargas Mujica Work Phone: [facility] Work Phone: 05-25-2021 15:58-0400 Heart rate 64 /min Vargas Mujica Work Phone: [facility] Work Phone: 05-25-2021 15:58-0400 Systolic blood pressure 122 mm[Hg] Vargas Mujica Work Phone: [facility] Work Phone: Encounters Encounter Date Encounter Type Care Provider Facility Start: 02-10-2025 End: 02-10-2025 Follow-up encounter Johanny Marmolejo APRN.HOT WORKER Work Phone: [facility] Comment on above: Follow Up Tests Resu lts Start: 01-29-2025 End: 01-29-2025 Telephone encounter Johanny Marmolejo APRN.HOT WORKER Work Phone: [facility] [place] Start: 01-28-2025 End: 01-28-2025 Patient encounter procedure Johanny Marmolejo APRN.HOT WORKER Work Phone: [facility] [place] Comment on above: Sinus bradycardia (P rimary Dx); Encounter for screening for cardiovascular disorders; Chest pain, unspecified type; Wide-complex tachycardia; BMI 50.0-59.9, adult (HCC) Start: 01-28-2025 End: 01-28-2025 ambulatory JOHANNY MARMOLEJO Facility:[facility] Start: 01-21-2025 ambulatory Vargas WATKINS Fa cility:[facility] Start: 01-09-2025 End: 01-13-2025 Telephone encounter Tomasz Garay MD Work Phone: Cardiology Comment on above: Appointment; Patient Update Start: 01-06-2025 ambulatory Vargas WATKINS Fa [facility] Start: 12-20-2024 End: 12-20-2024 Emergency department patient visit Vargas WATKINS Facility:[facility] Start: 12-10-2024 ambulatory Vargas WATKINS Fa cility:[facility] Start: 12-04-2024 ambulatory Vargas WATKINS Fa c[facility] Start: 11-06-2024 End: 11-06-2024 Office outpatient visit 25 minutes Vargas Mujica PA-C Work Phone: [facility] Internal Medicine Comment on above: Acute foot pain, lef t (Primary Dx); Anxiety; Gastroesophageal reflux disease, unspecified whether esophagitis present; Class 3 severe obesity due to excess calories with serious comorbidity and body mass index (BMI) of 50.0 to 59.9 in adult; Vitamin D deficiency; Glucose intolerance (impaired glucose tolerance); Elevated ferritin level; Medication management; Bariatric surgery status; Shahzad's disease; Generalized anxiety disorder; Depression, major, single episode, moderate (Multi); AAT (yugmh-9-ptdeconcehf) deficiency (Multi); Encounter for dietary counseling and surveillance; Fatty liver disease, nonalcoholic Start: 11-06-2024 End: 11-07-2024 ambulatory [facility] Start: 10-28-2024 End: 10-28-2024 ambulatory Vargas WATKINS [facility] Start: 10-23-2024 End: 10-23-2024 Emergency department patient visit Vargas WATKINS Facility:[facility] Start: 10-09-2024 ambulatory Vargas WATKINS Fa cility:[facility] Start: 09-24-2024 End: 09-24-2024 ambulatory Vargas WATKINS [facility] Start: 09-18-2024 ambulatory Jl June Facility: [facility] Start: 09-12-2024 ambulatory Rafael Shipley Facility:[facility] Start: 09-12-2024 End: 09-12-2024 ambulatory Lali Hu Facility:[facility] Start: 09-04-2024 End: 09-04-2024 ambulatory Vargas WATKINS [facility] Start: 07-31-2024 End: 07-31-2024 ambulatory Vargas WATKINS Facility:[facility] Start: 07-11-2024 End: 07-11-2024 Subsequent hospital visit by physician Huang [id number] X-Ray [facility] Comment on above: Chronic midline low back pain with sciatica, sciatica laterality unspecified Cervicalgia Start: 07-11-2024 End: 07-11-2024 ambulatory [facility] Start: 07-11-2024 End: 07-11-2024 Office outpatient visit 25 minutes Vargas Muijca PA-C Work Phone: [facility] Internal Medicine Comment on above: Cervicalgia (Primary Dx); Anxiety; Polyarthralgia; Chronic bilateral low back pain without sciatica; Vitamin D deficiency; 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; Class 3 severe obesity due to excess calories with serious comorbidity and body mass index (BMI) of 50.0 to 59.9 in adult; Fatty liver disease, nonalcoholic; Bariatric surgery status; Medication management; Chronic midline low back pain with sciatica, sciatica laterality unspecified Start: 07-11-2024 End: 07-11-2024 ambulatory [facility] Start: 06-07-2024 End: 06-07-2024 Patient encounter procedure Chloé Tipton APRN.CNP Work Phone: [facility] Comment on above: Foot pain, left (Mulu nikita Dx); Injury of left foot, initial encounter Start: 06-07-2024 End: 06-07-2024 ambulatory VARGAS CORRY GUANAKO Facility:[facility] Start: 06-07-2024 End: 06-07-2024 Subsequent hospital visit by physician Taty [facility] Work Phone: Radiology Comment on above: Foot pain, left [M79 .672] Start: 04-25-2024 End: 04-25-2024 Telephone encounter Donnie WATKINS Work Phone: [facility] Start: 04-24-2024 End: 04-24-2024 Subsequent hospital visit by physician Taty [facility] Work Phone: Radiology Comment on above: Acute cough [R05.1] Start: 04-24-2024 End: 04-24-2024 ambulatory VARGAS MUJICA Facility:[facility] Start: 04-24-2024 End: 04-24-2024 Patient encounter procedure Delfin Jain APRN.CNP Work Phone: [facility] Comment on above: URI, acute (Primary Dx); Acute cough Start: 04-05-2024 End: 04-05-2024 ambulatory Vargas WATKINS Facility:[facility] Start: 03-29-2024 End: 03-29-2024 ambulatory Vargas WATKINS Facility:[facility] Start: 03-02-2024 End: 03-02-2024 ambulatory Vargas WATKINS Facility:[facility] Start: 02-28-2024 End: 02-28-2024 Office outpatient visit 25 minutes Vargas Mujica PA-C Work Phone: [facility] Internal Medicine Comment on above: Major depressive dis order, single episode, moderate (Multi) (Primary Dx); Anxiety; Vitamin D deficiency; 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 Ambulatory Start: 10-19-2023 End: 10-19-2023 Emergency department patient visit [facility] Work Phone: Start: 10-03-2023 Telephone encounter Tomasz Garay MD Work Phone: Cardiology Comment on above: Patient Question (pa lpations) Start: 10-03-2023 End: 10-03-2023 Emergency department patient visit [facility] Work Phone: Start: 09-25-2023 End: 09-25-2023 ambulatory VARGAS B GUANAKO [facility] Start: 09-25-2023 End: 09-25-2023 Office outpatient visit 25 minutes Vargas Mujica PA-C Work Phone: [facility] Internal Medicine Comment on above: Major depressive dis order, single episode, moderate (CMS/HCC) (Primary Dx); Anxiety; Gastroesophageal reflux disease, unspecified whether esophagitis present; Glucose intolerance (impaired glucose tolerance); Shahzad's disease; Vitamin D deficiency; Fatty liver disease, nonalcoholic; Elevated ferritin level; Depression, major, single episode, moderate (CMS/HCC); Generalized anxiety disorder; AAT (ailhw-5-dcagbxnaadk) deficiency (CMS/HCC); Encounter for screening mammogram for breast cancer; Class 3 severe obesity due to excess calories with serious comorbidity and body mass index (BMI) of 50.0 to 59.9 in adult (CMS/HCC) Start: 05-15-2023 End: 05-15-2023 Emergency department patient visit KVNG DOMINGUEZ MD [facility] Start: 02-21-2023 Telephone encounter Tomasz Garay MD Work Phone: Cardiology Comment on above: ZIO RESULTS Start: 02-09-2023 End: 02-09-2023 Office outpatient visit 25 minutes Vargas Mujica PA-C Work Phone: [facility] Internal Medicine Comment on above: Generalized anxiety disorder (Primary Dx); Anxiety; Fatty liver disease, nonalcoholic; Glucose intolerance (impaired glucose tolerance); Shahzad's disease; Vitamin D deficiency; Polyarthralgia; Medication management; Urinary incontinence, unspecified type; Insomnia secondary to depression with anxiety; Palpitations; Ankylosing spondylitis, unspecified site of spine (CMS/HCC); Class 3 severe obesity due to excess calories with serious comorbidity and body mass index (BMI) of 50.0 to 59.9 in adult (CMS/HCC); Depression, major, single episode, moderate (CMS/HCC) Start: 01-09-2023 Orders Only Tomasz Garay MD Work Phone: Cardiology Comment on above: Dizzy (Primary Dx) Start: 01-05-2023 End: 01-05-2023 Emergency department patient visit [facility]INS [facility] Start: 01-02-2023 Telephone encounter Tomasz Garay MD Work Phone: Cardiology Comment on above: Patient Update Start: 01-01-2023 End: 01-01-2023 Patient encounter procedure Shahid Gamble APRN.HOT WORKER Work Phone: [facility] Comment on above: Dizziness (Primary D x); Bilateral impacted cerumen Start: 11-15-2022 End: 11-15-2022 Emergency department patient visit [facility]UNE [facility]ATKINS [facility] Start: 11-08-2022 End: 11-08-2022 Subsequent hospital visit by physician Xr [facility] Work Phone: Radiology Comment on above: Foot pain, right [M7 9.671] Start: 11-08-2022 End: 11-08-2022 Patient encounter procedure Donnie WATKINS Work Phone: [facility] Comment on above: Foot pain, right (Pr imary Dx) Start: 11-02-2022 End: 11-02-2022 Patient encounter procedure JUNE WATKINS Work Phone: [facility] Start: 10-17-2022 Office outpatient vi sit 15 minutes Vargas Mujica Work Phone: [facility] Internal Medicine Work Phone: Start: 10-17-2022 ambulatory Ms. Amador Neha Mujica Facility:[id number] Start: 10-11-2022 Orders Only Marjan fuller APRN.HOT WORKER Work Phone: [facility] Comment on above: Increased PTH level (Primary Dx) Start: 10-10-2022 Telephone encounter Tata umanzor MD Work Phone: [facility] Comment on above: Patient Question (Na usea, abdominal pain) Start: 09-29-2022 Telephone encounter Vargas wilson Work Phone: [facility] Medicine Work Phone: Start: 09-22-2022 End: 09-22-2022 Subsequent hospital visit by physician Xr [facility] Work Phone: Radiology Comment on above: Acute cough [R05.1] Start: 09-22-2022 End: 09-22-2022 Patient encounter procedure Delfin Jain APRN.HOT WORKER Work Phone: [facility] Comment on above: Acute cough (Primary Dx); URI, acute; Rhinosinusitis Start: 09-20-2022 Office outpatient vi sit 25 minutes Vargaspili Mujica Work Phone: [facility] Internal Medicine Work Phone: Start: 09-20-[address] Josselyn Roblero Fac ility:[id number] Start: 09-18-2022 Telephone encounter Vargas wilson Work Phone: [facility] Work Phone: Start: 08-31-2022 Office outpatient vi sit 25 minutes Vargas Gabo Mujica Work Phone: [facility] Work Phone: Start: 08-31-2022 ambulatory Ms. Vargas falcon Guanako Facility:[id number] Start: 08-28-2022 Chart Update Vargas sun Work Phone: [facility] Work Phone: Start: 08-17-2022 End: 08-17-2022 Emergency department patient visit [facility] Start: 08-17-2022 AUDIT Vargas Gabo sun Work Phone: [facility] Work Phone: Start: 08-15-2022 ambulatory Marjan fuller APRN.HOT WORKER Work Phone: [facility] Comment on above: Itching Start: 08-03-2022 Telephone encounter Vargas wilson Work Phone: [facility] Medicine Work Phone: Start: 07-27-2022 Office outpatient vi sit 25 minutes Vargas Mujica Work Phone: [facility] Work Phone: Start: 07-27-2022 ambulatory Ms. Vargas falcon [place]anako Facility:[id number] Start: 07-13-2022 AUDIT Vargas sun Work Phone: [facility] Work Phone: Start: 07-12-2022 Telephone encounter Tata umanzor MD Work Phone: [facility] Comment on above: Appointment Start: 07-12-2022 End: 07-12-2022 Telemedicine consultation with patient Marjan Eddy AIR EXPORT COORDINATOR.HOT WORKER Work Phone: [facility] Start: 07-12-2022 End: 07-12-2022 ambulatory Marjan Eddy AIR EXPORT COORDINATOR.HOT WORKER Work Phone: [facility] Comment on above: S/P laparoscopic sle mariajose gastrectomy (Primary Dx); Elevated liver enzymes Start: 07-12-2022 End: 07-12-2022 Follow-up encounter Audrey Spivey RD Work Phone: [facility] Comment on above: Post Op Follow Up Start: 06-21-2022 AUDIT Vargas sun Work Phone: [facility] Work Phone: Start: 06-14-2022 ambulatory Marjan fuller AIR EXPORT COORDINATOR.HOT WORKER Work Phone: [facility] Comment on above: Labs Start: 06-14-2022 E-mail encounter fro m caregiver Marjan Eddy AIR EXPORT COORDINATOR.HOT WORKER Work Phone: [facility] Start: 06-03-2022 End: 06-03-[address] Work Phone: [facility] Start: 06-03-2022 End: 06-03-2022 FQHC visit, estab pt Amirah Flores RD Work Phone: [facility] Comment on above: Established Patient Start: 06-02-2022 Telephone encounter [facility] Provider [facility] Comment on above: Appointment Start: 06-02-2022 End: 06-02-2022 ambulatory Marjan Eddy APRN.HOT WORKER Work Phone: [facility] Comment on above: S/P laparoscopic sle mariajose gastrectomy (Primary Dx) Start: 06-02-2022 End: 06-02-2022 Telemedicine consultation with patient Marjan Eddy APRN.HOT WORKER Work Phone: [facility] Start: 04-21-2022 End: 04-21-[address] Work Phone: [facility] Start: 04-21-2022 End: 04-21-2022 FQHC visit, estab pt Audrey Spivey RD Work Phone: [facility] Comment on above: Established Patient Start: 04-20-2022 Refill Marjan fuller APRN.HOT WORKER Work Phone: [facility] Comment on above: Refill Request Start: 04-20-2022 Telephone encounter Tata umanzor MD Work Phone: [facility] Comment on above: Results Start: 04-19-2022 End: 04-19-2022 Subsequent hospital visit by physician [facility] Comment on above: Arrived S/P laparoscopic sle mariajose gastrectomy [Z98.84] Start: 04-19-2022 End: 04-19-2022 Patient encounter procedure Marjan Eddy APRN.HOT WORKER Work Phone: [facility] Comment on above: S/P laparoscopic sle mariajose gastrectomy (Primary Dx); Right sided abdominal pain; Hepatic fibrosis; History of DVT (deep vein thrombosis) Start: 04-18-2022 Telephone encounter Tata umanzor MD Work Phone: [facility] Comment on above: Patient Update Start: 04-14-2022 Telephone encounter Marjan rangel APRN.HOT WORKER Work Phone: [facility] Comment on above: Surgical Followup Start: 04-12-2022 Telephone encounter Tata umanzor MD Work Phone: [facility] Comment on above: Patient Update (Inpa tient rounding) Start: 04-06-2022 Telephone encounter Tata umanzor MD Work Phone: [facility] Comment on above: Patient Update Start: 04-05-2022 Telephone encounter Marjan rangel APRN.HOT WORKER Work Phone: [facility] Comment on above: Results Start: 03-31-2022 AUDIT Vargas sun Work Phone: [facility] Work Phone: Start: 03-31-2022 Telephone encounter Tata umanzor MD Work Phone: [facility] Comment on above: Opened In Error Start: 03-31-2022 End: 03-31-2022 ambulatory Marjan Eddy APRN.HOT WORKER Work Phone: [facility] Comment on above: Class 3 severe obesi ty due to excess calories with serious comorbidity and body mass index (BMI) of 60.0 to 69.9 in adult (HCC) (Primary Dx); History of DVT (deep vein thrombosis); Elevated liver enzymes Start: 03-31-2022 End: 03-31-2022 Telemedicine consultation with patient Marjan Eddy APRN.HOT WORKER Work Phone: [facility] Start: 03-30-2022 ambulatory Ms. Vargas Mujica Facility:[id number] Start: 03-30-2022 Encounter for other preprocedural examination Ms. Vargas Mujica Facility:[id number] Start: 03-29-2022 ambulatory Marjan Duncan Roro vsneptali AIR EXPORT COORDINATOR.HOT WORKER Work Phone: [facility] Comment on above: Vitamins Start: 03-24-2022 End: 03-24-2022 ambulatory Tata Rosas MD Work Phone: [facility] Comment on above: Class 3 severe obesi ty due to excess calories with serious comorbidity and body mass index (BMI) of 60.0 to 69.9 in adult (HCC) (Primary Dx); History of DVT (deep vein thrombosis); AAT (gwudy-5-nzsyouffczy) deficiency (HCC); BRISEYDA (obstructive sleep apnea); NAFLD (nonalcoholic fatty liver disease); Heartburn Start: 03-24-2022 End: 03-24-2022 Telemedicine consultation with patient Tata Rosas MD Work Phone: [facility] Start: 03-23-2022 AUDIT Vargas sun Work Phone: [facility] Work Phone: Start: 03-21-2022 ambulatory Marjan Read vsky AIR EXPORT COORDINATOR.HOT WORKER Work Phone: [facility] Comment on above: Pre surgical Start: 03-16-2022 AUDIT Vargas sun Work Phone: [facility] Work Phone: Start: 03-16-2022 End: 03-16-[address] Work Phone: [facility] Comment on above: Class 3 severe obesi ty due to excess calories with serious comorbidity and body mass index (BMI) of 60.0 to 69.9 in adult (HCC) (Primary Dx) Start: 03-16-2022 End: 03-16-2022 Telemedicine consultation with patient Amirah Flores RD Work Phone: [facility] Start: 03-15-2022 Telephone encounter Tata umanzor MD Work Phone: [facility] Comment on above: Appointment Start: 03-02-2022 Telephone encounter Nasrin Josef rojas APRN.HOT WORKER Work Phone: Pulmonary Medicine Comment on above: Opened In Error Start: 03-01-2022 Orders Only Tata Rosas MD Work Phone: [facility] Comment on above: Morbid obesity (HCC) (Primary Dx) Start: 02-15-2022 End: 02-15-2022 ambulatory Marjan Readjonny MILNER.HOT WORKER Work Phone: [facility] Comment on above: Class 3 severe obesi ty due to excess calories with serious comorbidity and body mass index (BMI) of 60.0 to 69.9 in adult (HCC) (Primary Dx); Elevated liver enzymes; COVID-19 long hauler; BRISEYDA (obstructive sleep apnea) Dietary counseling a nd surveillance Start: 02-15-2022 End: 02-15-2022 Telemedicine consultation with patient Marjan Song Nunu MILNER.HOT WORKER Work Phone: [facility] Start: 02-10-2022 Telephone encounter Hung buck MD Work Phone: Pulmonary Medicine Comment on above: FYI-No Action Needed Start: 02-09-2022 Telephone encounter Hung buck MD Work Phone: Pulmonary Medicine Comment on above: Results Letter Start: 02-03-2022 ambulatory Brooks farnsworth MD Work Phone: [facility] Comment on above: Question regarding L IVER FIBROSIS AND ACTIVITY Start: 02-02-2022 Telephone encounter Tata umanzor MD Work Phone: [facility] Comment on above: Medical Clearance Start: 02-02-2022 End: 06-08-2022 Subsequent hospital visit by physician [facility] 2 [facility] Comment on above: Fatty liver [K76.0] Start: 02-02-2022 End: 02-02-2022 ambulatory Pulm [facility] Comment on above: Shortness of Breath Start: 02-02-2022 End: 02-02-2022 Patient encounter procedure Pulm [facility]ct Lab [facility] Start: 01-25-2022 AUDIT Vargas sun Work Phone: [facility] Work Phone: Start: 01-18-2022 End: 01-18-2022 ambulatory Marjan Sogn Harveyneptali AIR EXPORT COORDINATOR.HOT WORKER Work Phone: [facility] Comment on above: Class 3 severe obesi ty due to excess calories with serious comorbidity and body mass index (BMI) of 60.0 to 69.9 in adult (HCC) (Primary Dx); Elevated liver enzymes; COVID-19 long hauler; Hepatomegaly Start: 01-18-2022 End: 01-18-2022 Telemedicine consultation with patient Marjan Song Nunu AIR EXPORT COORDINATOR.HOT WORKER Work Phone: [facility] Start: 01-14-2022 Telephone encounter Hung buck MD Work Phone: Pulmonary Medicine Comment on above: Results Start: 01-13-2022 End: 01-13-2022 Patient encounter procedure Brooks Soto MD Work Phone: [facility] Comment on above: Fatty liver (Primary Dx); Increased liver enzymes; Morbid obesity (HCC) Start: 01-10-2022 Message Vargas sun Work Phone: [facility] Work Phone: Start: 01-04-2022 Result Review Vargas sun Work Phone: [facility] Work Phone: Start: 01-03-2022 End: 01-03-2022 Patient encounter procedure Hung Emerson MD Work Phone: Pulmonary Medicine Comment on above: Dyspnea and respirat ory abnormalities (Primary Dx); Shortness of breath Start: 12-28-2021 ambulatory Ms. Vargas falcon [place] Facility:[id number] Start: 12-27-2021 Telephone encounter Brooks Soto MD Work Phone: [facility] Comment on above: Appointment Start: 12-27-2021 End: 12-27-2021 ambulatory Amirah Garrisonmonisha CARMEN Work Phone: [facility] Comment on above: Class 3 severe obesi ty due to excess calories with serious comorbidity and body mass index (BMI) of 60.0 to 69.9 in adult (HCC) (Primary Dx) Start: 12-27-2021 End: 12-27-2021 Telemedicine consultation with patient Amirah Flores RD Work Phone: [facility] Start: 12-24-2021 Telephone encounter Edith Devi MD Work Phone: [facility] Comment on above: possible Hepatitis d iagnosis Start: 12-24-2021 End: 12-24-2021 Patient encounter procedure Marjan Eddy AIR EXPORT COORDINATOR.HOT WORKER Work Phone: [facility] Comment on above: Class 3 severe obesi ty due to excess calories with serious comorbidity and body mass index (BMI) of 60.0 to 69.9 in adult (HCC) (Primary Dx); Elevated liver enzymes; Hepatomegaly; V-tach (HCC); COVID-19 long hauler; Gastroesophageal reflux disease without esophagitis Start: 12-10-2021 Refill Tata Rosas MD Work Phone: [facility] Comment on above: Refill Request Start: 12-10-2021 Telephone encounter Tata umanzor MD Work Phone: [facility] Comment on above: Received Outside [facility] Records ([facility]) Start: 12-02-2021 Refill Marjan fuller AIR EXPORT COORDINATOR.HOT WORKER Work Phone: [facility] Comment on above: Refill Request Start: 12-02-2021 Telephone encounter Marjan rangel APRN.HOT WORKER Work Phone: [facility] Comment on above: Radiology US (result s) Start: 12-02-2021 AUDIT Vargas sun Work Phone: [facility] Work Phone: Start: 12-01-2021 Telephone encounter Tata umanzor MD Work Phone: [facility] Comment on above: Appointment Start: 11-30-2021 Admission to [facility] Tomasz Garay MD Work Phone: Cardiology Comment on above: Surgery release Start: 11-30-2021 ambulatory Tomasz Garay MD Work Phone: [facility] Start: 11-29-2021 AUDIT Vargas sun Work Phone: [facility] Work Phone: Start: 11-29-2021 Telephone encounter Tata umanzor MD Work Phone: [facility] Comment on above: Patient Update (Outs [facility] lab results) Start: 11-19-2021 End: 11-19-2021 Refill Tata Rosas MD Work Phone: [facility] Comment on above: Refill Request Class 3 severe obesi ty due to excess calories with serious comorbidity and body mass index (BMI) of 60.0 to 69.9 in adult (HCC) (Primary Dx); V-tach (HCC); COVID-19 long hauler; Elevated liver enzymes; [id number] deficiency (HCC); Gastroesophageal reflux disease without esophagitis Medical Clearance Start: 11-15-2021 AUDIT Vargas sun Work Phone: [facility] Work Phone: Start: 11-12-2021 Chart Update Vargas Andujar nhall Work Phone: [facility] Work Phone: Start: 11-11-2021 Office outpatient vi sit 25 minutes Vargas Edenenhall Work Phone: [facility] Work Phone: Start: 11-11-2021 [facility] Facility:[id number] Start: 10-18-2021 AUDIT Vargas Edene nhall Work Phone: [facility] Work Phone: Start: 09-02-2021 AUDIT Vargas Edene nhall Work Phone: [facility] Work Phone: Start: 08-19-2021 Office outpatient vi sit 15 minutes Vargas Edenenhall Work Phone: [facility] Work Phone: Start: 07-28-2021 FUV, Provider: Vargas Mujica, Status: Pen, Time: 9:00 AM Vargas Edenenhall Work Phone: [facility] Work Phone: Start: 07-28-2021 Office outpatient vi sit 25 minutes Vargas Edenenhall Work Phone: [facility] Work Phone: Start: 07-27-2021 Chart Update Vargas Edene nhall Work Phone: [facility] Work Phone: Start: 07-02-2021 AUDIT Vargas Edene nhall Work Phone: [facility] Work Phone: Start: 06-08-2021 Chart Update Vargas Andujar nhall Work Phone: [facility] Work Phone: Start: 06-03-2021 AUDIT Vargas sun Work Phone: [facility] Work Phone: Start: 05-25-2021 Office outpatient vi sit 25 minutes Vargas Mujica Work Phone: [facility] Work Phone: Start: 05-11-2021 AUDIT Vargas sun Work Phone: [facility] Work Phone: Start: 04-12-2021 AUDIT Vargas sun Work Phone: [facility] Work Phone: Start: 12-19-2020 End: 12-19-2020 Subsequent hospital visit by physician Xr [facility] Work Phone: Radiology Comment on above: Class 3 severe obesi ty with body mass index (BMI) of 50.0 to 59.9 in adult, unspecified obesity type, unspecified whether serious comorbidity present (HCC) [E66.01, Z68.43] Start: 06-10-2020 Patient encounter procedure Vargas Mujica [facility] Work Phone: Start: 04-20-2020 Patient encounter procedure Vargas Mujica [facility] Work Phone: Start: 01-14-2020 Patient encounter procedure Vargas Mujica [facility] Work Phone: Start: 12-23-2019 Patient encounter procedure Vargas Mujica [facility] Work Phone: Start: 12-16-2019 Patient encounter procedure Vargas Mujica [facility] Work Phone: Start: 10-03-2019 Patient encounter procedure Vargas Mujica [facility] Work Phone: Start: 09-18-2018 End: 09-20-2018 Evaluation and management of inpatient EDITH MURRAY Facility:[facility] Patient encounter status Vargas Mujica Work Phone: [facility] Work Phone: Preoperative state Vargas Eden art Work Phone: [facility] Work Phone: Procedures Date Procedure Procedure Detail Performing Clinician Start: 06-07-2024 Radex foot complete minimum 3 views Chloé Tipton AIR EXPORT COORDINATOR.HOT WORKER Work Phone: Start: 04-24-2024 Radiologic exam chest 2 views Delfin Jain AIR EXPORT COORDINATOR.HOT WORKER Work Phone: Start: 10-19-2023 CT of head without contrast Start: 09-25-2023 C-reactive protein VARGAS MUJICA Start: 09-25-2023 CBC W Auto Differential panel - Blood VARGAS GUANAKO Start: 09-25-2023 Comprehensive metabolic 2000 panel - Serum or Plasma VARGAS MUJICA Start: 09-25-2023 Cyanocobalamin vitamin b-12 VARGAS BOBBY PEPE Start: 09-25-2023 Ferritin [Mass/volume] in Serum or Plasma VARGAS MUJICA Start: 09-25-2023 Hemoglobin A1c/Hemoglobin.total in Blood VARGAS MUJICA Start: 09-25-2023 IRON AND TIBC VARGAS MUJICA Start: 09-25-2023 Lipid panel VARGAS MUJICA Start: 09-25-2023 Magnesium [Mass/volume] in Serum or Plasma VARGAS MUJICA Start: 09-25-2023 SEDIMENTATION RATE, AUTOMATED VARGAS RACHEL SCHMITTL Start: 09-25-2023 THYROXINE, FREE VARGAS MUJICA Start: 09-25-2023 VITAMIN D 25-HYDROXY,TOTAL VARGAS SCHROEDER ANNA Start: 09-25-2023 Lipid 1996 panel - Serum or Plasma Scott Mujica PA-C Work Phone: Start: 09-25-2023 Thyrotropin [Units/volume] in Serum or Plasma Vargas Mujica PA-C Work Phone: Start: 02-09-2023 Urnls dip stick/tablet rgnt auto w/o microscopy Vargas Mujica PA-C Work Phone: Start: 02-09-2023 Thyrotropin [Units/volume] in Serum or Plasma Vargas Mujica PA-C Work Phone: Start: 01-05-2023 Plain chest X-ray PA Vargas WATKINS Work Phone: Start: 11-15-2022 Plain chest X-ray PA Vargas WATKINS Work Phone: Start: 11-08-2022 Radex foot complete minimum 3 views Donnie Rowland PA Work Phone: Start: 09-22-2022 Radiologic exam chest 2 views Delfin Jain AIR EXPORT COORDINATOR.HOT WORKER Work Phone: Start: 08-17-2022 Plain chest X-ray Start: 04-19-2022 Ct abdomen & pelvis w/contrast material Marjan Eddy AIR EXPORT COORDINATOR.HOT WORKER Work Phone: Start: 02-02-2022 Us abdominal real time w/image documentation Brooks Soto MD Work Phone: Start: 02-02-2022 Brncdilat rspse spmtry pre&post-brncdilat admn Hung Emerson MD Work Phone: Start: 12-10-2021 Esophagogastrostomy, antesternal or antethoracic Vargas Mujica Work Phone: Start: 12-19-2020 Radiologic exam chest 2 views Marjan rangel AIR EXPORT COORDINATOR.HOT WORKER Work Phone: section Meagan falcon Cholecystectomy Meagan Redd Esophagogastroduodenoscopy A tam Redd History of Biopsy Of Liver A tam Redd Laboratory test result abnormal Abnormal laboratory test result Operation on heart Vargas beasley Comment on above: 2019 heart ablation; Other bilateral liga tion and division of fallopian tubes Meagan Redd Tonsillectomy Meagan Redd Plan of Treatment Date Care Activity Detail Author Start: 2033 Zoster Vaccines (1 of 2) Zoster Vaccines (1 of 2) [facility] Start: 09-25-2028 Lipid panel Lipid Panel [facility] Start: 09-25-2026 Diabetes mellitus screening Diabetes Screening [facility] Start: 06-02-2026 HPV TESTING HPV TESTING [facility] Start: 06-02-2026 PAP TESTING PAP TESTING [facility] Start: 06-02-2026 Screening for malignant neoplasm of cervix [facility] Start: 09-15-2025 End: 09-15-2025 Patient encounter procedure 09/15/2025 3:20 PM EST Office Visit Cardiology [address] [place] [id number] Tomasz Garay MD [address], [address] [place] [address] bradycardia Cardiology Comment on above: bradycardia Start: 04-28-2025 Influenza vaccination Influenza Vaccine (Season Ended) [facility] Start: 01-28-2025 End: 01-28-2025 Patient encounter procedure 01/28/2025 2:30 PM EDT Office Visit [facility] [address] [place] [address] Johanny Marmolejo APRN.HOT WORKER [address] [place] [address] sooner f/u than pritesh dunn per [facility]- [facility] [place] Comment on above: sooner f/u than pritesh dunn per [facility]- [facility]lk Start: 01-08-2025 End: 07-11-2025 25-hydroxyvitamin D3 [Mass/volume] in Serum or Plasma Vitamin D 25-Hydroxy,Total (for eval of Vitamin D levels) Lab Routine Vitamin D deficiency Expected: 01/08/2025 (Approximate), Expires: 07/11/2025 [facility] Work Phone: Comment on above: Expected: 01/08/2025 (Approximate), Expi res: 07/11/2025 Start: 01-08-2025 End: 07-11-2025 CBC W Auto Differential panel - Blood CBC and Auto Differential Lab Routine Polyarthralgia Expected: 01/08/2025 (Approximate), Expires: 07/11/2025 [facility] Work Phone: Comment on above: Expected: 01/08/2025 (Approximate), Expi res: 07/11/2025 Start: 01-08-2025 End: 07-11-2025 Cobalamin (Vitamin B12) [Mass/volume] in Serum or Plasma Vitamin B12 Lab Routine Bariatric surgery status Expected: 01/08/2025 (Approximate), Expires: 07/11/2025 [facility] Work Phone: Comment on above: Expected: 01/08/2025 (Approximate), Expi res: 07/11/2025 Start: 01-08-2025 End: 07-11-2025 Comprehensive metabolic 2000 panel - Serum or Plasma Comprehensive Metabolic Panel Lab Routine Fatty liver disease, nonalcoholic Expected: 01/08/2025 (Approximate), Expires: 07/11/2025 [facility] Work Phone: Comment on above: Expected: 01/08/2025 (Approximate), Expi res: 07/11/2025 Start: 01-08-2025 End: 07-11-2025 Ferritin [Mass/volume] in Serum or Plasma Ferritin Lab Routine Fatty liver disease, nonalcoholic Expected: 01/08/2025 (Approximate), Expires: 07/11/2025 [facility] Work Phone: Comment on above: Expected: 01/08/2025 (Approximate), Expi res: 07/11/2025 Start: 01-08-2025 End: 07-11-2025 Iron and Iron binding capacity panel - Serum or Plasma Iron and TIBC Lab Routine Fatty liver disease, nonalcoholic Expected: 01/08/2025 (Approximate), Expires: 07/11/2025 [facility] Work Phone: Comment on above: Expected: 01/08/2025 (Approximate), Expi res: 07/11/2025 Start: 01-08-2025 End: 07-11-2025 Lipid 1996 panel - Serum or Plasma Lipid Panel Lab Routine 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 Class 3 severe obesity due to excess calories with serious comorbidity and body mass index (BMI) of 50.0 to 59.9 in adult Fatty liver disease, nonalcoholic Expected: 01/08/2025 (Approximate), Expires: 07/11/2025 [facility] Work Phone: Comment on above: Expected: 01/08/2025 (Approximate), Expi res: 07/11/2025 Start: 01-08-2025 End: 07-11-2025 Magnesium [Mass/volume] in Serum or Plasma Magnesium Lab Routine Polyarthralgia Expected: 01/08/2025 (Approximate), Expires: 07/11/2025 [facility] Work Phone: Comment on above: Expected: 01/08/2025 (Approximate), Expi res: 07/11/2025 Start: 01-08-2025 End: 07-11-2025 Opiate/Opioid/Benzo Prescription Compliance Opiate/Opioid/Benzo Prescription Compliance Lab Routine Anxiety Medication management Expected: 01/08/2025 (Approximate), Expires: 07/11/2025 [facility] Work Phone: Comment on above: Expected: 01/08/2025 (Approximate), Expi res: 07/11/2025 Start: 01-08-2025 End: 07-11-2025 Thyrotropin [Units/volume] in Serum or Plasma Thyroid Stimulating Hormone Lab Routine 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 Expected: 01/08/2025 (Approximate), Expires: 07/11/2025 [facility] Work Phone: Comment on above: Expected: 01/08/2025 (Approximate), Expi res: 07/11/2025 Start: 01-08-2025 End: 07-11-2025 Thyroxine (T4) free [Mass/volume] in Serum or Plasma Thyroxine, Free Lab Routine 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 Expected: 01/08/2025 (Approximate), Expires: 07/11/2025 [facility] Work Phone: Comment on above: Expected: 01/08/2025 (Approximate), Expi res: 07/11/2025 Start: 12-28-2024 Diabetes mellitus screening Diabetes Screening [facility] Start: 12-24-2024 End: 12-24-2024 Patient encounter procedure 12/24/2024 8:00 AM EDT Office Visit [facility] [address] [place] [id number] Vargas Mujica PA-C [address] [place] [id number] [facility] Start: 11-06-2024 End: 11-06-2025 25-hydroxyvitamin D3 [Mass/volume] in Serum or Plasma Vitamin D 25-Hydroxy,Total (for eval of Vitamin D levels) Lab Routine Vitamin D deficiency Expected: 11/06/2024 (Approximate), Expires: 11/06/2025 [facility] Work Phone: Comment on above: Expected: 11/06/2024 (Approximate), Expi res: 11/06/2025 Start: 11-06-2024 End: 11-06-2025 CBC W Auto Differential panel - Blood CBC and Auto Differential Lab Routine Glucose intolerance (impaired glucose tolerance) Expected: 11/06/2024 (Approximate), Expires: 11/06/2025 [facility] Service Area Work Phone: Comment on above: Expected: 11/06/2024 (Approximate), Expi res: 11/06/2025 Start: 11-06-2024 End: 11-06-2025 Cobalamin (Vitamin B12) [Mass/volume] in Serum or Plasma Vitamin B12 Lab Routine Bariatric surgery status Expected: 11/06/2024 (Approximate), Expires: 11/06/2025 [facility] Work Phone: Comment on above: Expected: 11/06/2024 (Approximate), Expi res: 11/06/2025 Start: 11-06-2024 End: 11-06-2025 Comprehensive metabolic 2000 panel - Serum or Plasma Comprehensive Metabolic Panel Lab Routine Glucose intolerance (impaired glucose tolerance) Expected: 11/06/2024 (Approximate), Expires: 11/06/2025 [facility] Work Phone: Comment on above: Expected: 11/06/2024 (Approximate), Expi res: 11/06/2025 Start: 11-06-2024 End: 11-06-2025 Ferritin [Mass/volume] in Serum or Plasma Ferritin Lab Routine Elevated ferritin level Expected: 11/06/2024 (Approximate), Expires: 11/06/2025 [facility] Work Phone: Comment on above: Expected: 11/06/2024 (Approximate), Expi res: 11/06/2025 Start: 11-06-2024 End: 11-06-2025 Iron and Iron binding capacity panel - Serum or Plasma Iron and TIBC Lab Routine Elevated ferritin level Expected: 11/06/2024 (Approximate), Expires: 11/06/2025 [facility] Work Phone: Comment on above: Expected: 11/06/2024 (Approximate), Expi res: 11/06/2025 Start: 11-06-2024 End: 11-06-2025 Lipid 1996 panel - Serum or Plasma Lipid Panel Lab Routine Glucose intolerance (impaired glucose tolerance) Shahzad's disease Expected: 11/06/2024 (Approximate), Expires: 11/06/2025 [facility] Work Phone: Comment on above: Expected: 11/06/2024 (Approximate), Expi res: 11/06/2025 Start: 11-06-2024 End: 11-06-2025 Magnesium [Mass/volume] in Serum or Plasma Magnesium Lab Routine Bariatric surgery status Expected: 11/06/2024 (Approximate), Expires: 11/06/2025 [facility] Work Phone: Comment on above: Expected: 11/06/2024 (Approximate), Expi res: 11/06/2025 Start: 11-06-2024 End: 11-06-2025 Opiate/Opioid/Benzo Prescription Compliance Opiate/Opioid/Benzo Prescription Compliance Lab Routine Medication management Expected: 11/06/2024 (Approximate), Expires: 11/06/2025 [facility] Work Phone: Comment on above: Expected: 11/06/2024 (Approximate), Expi res: 11/06/2025 Start: 11-06-2024 End: 11-06-2025 Thyrotropin [Units/volume] in Serum or Plasma Thyroid Stimulating Hormone Lab Routine Shahzad's disease Expected: 11/06/2024 (Approximate), Expires: 11/06/2025 [facility] Work Phone: Comment on above: Expected: 11/06/2024 (Approximate), Expi res: 11/06/2025 Start: 11-06-2024 End: 11-06-2025 Thyroxine (T4) free [Mass/volume] in Serum or Plasma Thyroxine, Free Lab Routine Shahzad's disease Expected: 11/06/2024 (Approximate), Expires: 11/06/2025 [facility] Work Phone: Comment on above: Expected: 11/06/2024 (Approximate), Expi res: 11/06/2025 Start: 09-25-2024 Thyroid stimulating hormone measurement TSH Level [facility] Start: 07-11-2024 End: 07-11-2025 FERNANDO + SHAHRIAR Panel [facility] Work Phone: Comment on above: Expected: 07/11/2024 (Approximate), Expi res: 07/11/2025 Start: 07-11-2024 End: 07-11-2025 Cyclic citrullinated peptide IgG Ab [Units/volume] in Serum or Plasma [facility] Work Phone: Comment on above: Expected: 07/11/2024 (Approximate), Expi res: 07/11/2025 Start: 07-11-2024 End: 07-11-2025 XR Cervical spine 2 or 3 Views [facility] Work Phone: Comment on above: Expected: 07/11/2024, Expires: Once for 1 Occurrenc es starting 07/11/2024 until 07/11/2024 Start: 07-11-2024 End: 07-11-2025 XR Lumbar spine 2 or 3 Views [facility] Work Phone: Comment on above: Expected: 07/11/2024, Expires: Once for 1 Occurrenc es starting 07/11/2024 until 07/11/2024 Start: 04-28-2024 Covid-19 Vaccine ( season) Covid-19 Vaccine ( season) [facility] Start: 04-28-2024 Covid-19 Vaccine () Covid-19 Vaccine () [facility] Start: 04-28-2024 Influenza vaccination Influenza Vaccine (#1) [facility] Start: 04-24-2024 End: 05-08-2024 COVID & INFLUENZA A/B & RSV PCR, ROUTINE COVID & INFLUENZA A/B & RSV PCR, ROUTINE Microbiology Routine URI, acute Expected: 04/24/2024, Expires: 05/08/2024 [facility] Work Phone: Comment on above: Expected: 04/24/2024, Expires: Start: 02-28-2024 End: 02-27-2025 25-hydroxyvitamin D3 [Mass/volume] in Serum or Plasma Vitamin D 25-Hydroxy,Total (for eval of Vitamin D levels) Lab Routine Vitamin D deficiency Expected: 02/28/2024 (Approximate), Expires: 02/27/2025 [facility] Work Phone: Comment on above: Expected: 02/28/2024 (Approximate), Expi res: 02/27/2025 Start: 02-28-2024 End: 02-27-2025 C reactive protein [Mass/volume] in Serum or Plasma C-reactive protein Lab Routine Class 3 severe obesity due to excess calories with serious comorbidity and body mass index (BMI) of 50.0 to 59.9 in adult (Multi) Polyarthralgia Expected: 02/28/2024 (Approximate), Expires: 02/27/2025 [facility] Work Phone: Comment on above: Expected: 02/28/2024 (Approximate), Expi res: 02/27/2025 Start: 02-28-2024 End: 02-27-2025 CBC W Auto Differential panel - Blood CBC and Auto Differential Lab Routine Glucose intolerance (impaired glucose tolerance) Expected: 02/28/2024 (Approximate), Expires: 02/27/2025 [facility] Service Area Work Phone: Comment on above: Expected: 02/28/2024 (Approximate), Expi res: 02/27/2025 Start: 02-28-2024 End: 02-27-2025 Cobalamin (Vitamin B12) [Mass/volume] in Serum or Plasma Vitamin B12 Lab Routine Glucose intolerance (impaired glucose tolerance) Expected: 02/28/2024 (Approximate), Expires: 02/27/2025 [facility] Work Phone: Comment on above: Expected: 02/28/2024 (Approximate), Expi res: 02/27/2025 Start: 02-28-2024 End: 02-27-2025 Comprehensive metabolic 2000 panel - Serum or Plasma Comprehensive Metabolic Panel Lab Routine Glucose intolerance (impaired glucose tolerance) Expected: 02/28/2024 (Approximate), Expires: 02/27/2025 [facility] Work Phone: Comment on above: Expected: 02/28/2024 (Approximate), Expi res: 02/27/2025 Start: 02-28-2024 End: 02-27-2025 Cortisol [Mass/volume] in Saliva (oral fluid) Salivary Cortisol Lab Routine Class 3 severe obesity due to excess calories with serious comorbidity and body mass index (BMI) of 50.0 to 59.9 in adult (Multi) Polyarthralgia Expected: 02/28/2024 (Approximate), Expires: 02/27/2025 [facility] Work Phone: Comment on above: Expected: 02/28/2024 (Approximate), Expi res: 02/27/2025 Start: 02-28-2024 End: 02-27-2025 Cortisol Free [Mass/volume] in Serum or Plasma Cortisol, Free Lab Routine Class 3 severe obesity due to excess calories with serious comorbidity and body mass index (BMI) of 50.0 to 59.9 in adult (Multi) Polyarthralgia Expected: 02/28/2024 (Approximate), Expires: 02/27/2025 [facility] Work Phone: Comment on above: Expected: 02/28/2024 (Approximate), Expi res: 02/27/2025 Start: 02-28-2024 End: 04-30-2025 DBT Breast - bilateral BI mammo bilateral screening tomosynthesis Imaging Routine Generalized anxiety disorder Expected: 02/28/2024, Expires: 04/30/2025 [facility] Work Phone: Comment on above: Expected: 02/28/2024, Expires: Start: 02-28-2024 End: 02-27-2025 Erythrocyte sedimentation rate Sedimentation Rate Lab Routine Class 3 severe obesity due to excess calories with serious comorbidity and body mass index (BMI) of 50.0 to 59.9 in adult (Multi) Polyarthralgia Expected: 02/28/2024 (Approximate), Expires: 02/27/2025 [facility] Work Phone: Comment on above: Expected: 02/28/2024 (Approximate), Expi res: 02/27/2025 Start: 02-28-2024 End: 02-27-2025 Ferritin [Mass/volume] in Serum or Plasma Ferritin Lab Routine Fatty liver disease, nonalcoholic Elevated ferritin level Expected: 02/28/2024 (Approximate), Expires: 02/27/2025 [facility] Work Phone: Comment on above: Expected: 02/28/2024 (Approximate), Expi res: 02/27/2025 Start: 02-28-2024 End: 02-27-2025 Hemoglobin A1c/Hemoglobin.total in Blood Hemoglobin A1C Lab Routine Glucose intolerance (impaired glucose tolerance) Expected: 02/28/2024 (Approximate), Expires: 02/27/2025 [facility] Work Phone: Comment on above: Expected: 02/28/2024 (Approximate), Expi res: 02/27/2025 Start: 02-28-2024 End: 02-27-2025 Iron and Iron binding capacity panel - Serum or Plasma Iron and TIBC Lab Routine Fatty liver disease, nonalcoholic Elevated ferritin level Expected: 02/28/2024 (Approximate), Expires: 02/27/2025 [facility] Work Phone: Comment on above: Expected: 02/28/2024 (Approximate), Expi res: 02/27/2025 Start: 02-28-2024 End: 02-27-2025 Lipid 1996 panel - Serum or Plasma Lipid Panel Lab Routine Glucose intolerance (impaired glucose tolerance) Expected: 02/28/2024 (Approximate), Expires: 02/27/2025 [facility] Work Phone: Comment on above: Expected: 02/28/2024 (Approximate), Expi res: 02/27/2025 Start: 02-28-2024 End: 02-27-2025 Magnesium [Mass/volume] in Serum or Plasma Magnesium Lab Routine Glucose intolerance (impaired glucose tolerance) Expected: 02/28/2024 (Approximate), Expires: 02/27/2025 [facility] Work Phone: Comment on above: Expected: 02/28/2024 (Approximate), Expi res: 02/27/2025 Start: 02-28-2024 End: 02-27-2025 Thyrotropin [Units/volume] in Serum or Plasma Thyroid Stimulating Hormone Lab Routine 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 Expected: 02/28/2024 (Approximate), Expires: 02/27/2025 [facility] Work Phone: Comment on above: Expected: 02/28/2024 (Approximate), Expi res: 02/27/2025 Start: 02-28-2024 End: 02-27-2025 Thyroxine (T4) free [Mass/volume] in Serum or Plasma Thyroxine, Free Lab Routine 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 Expected: 02/28/2024 (Approximate), Expires: 02/27/2025 [facility] Work Phone: Comment on above: Expected: 02/28/2024 (Approximate), Expi res: 02/27/2025 Start: 02-10-2024 Thyroid stimulating hormone measurement TSH Level [facility] Start: 10-23-2023 End: 10-23-2023 Patient encounter procedure 10/23/2023 7:30 AM EST Appointment [facility] [address] [place] [id number] [facility] Start: 10-19-2023 [facility] Start: 10-03-2023 [facility] Start: 09-25-2023 End: 11-23-2024 DBT Breast - bilateral BI mammo bilateral screening tomosynthesis Imaging Routine Encounter for screening mammogram for breast cancer Expected: 09/25/2023, Expires: 11/23/2024 [facility] Work Phone: Comment on above: Expected: 09/25/2023, Expires: Start: 09-25-2023 End: 09-25-2024 Hemoglobin A1c/Hemoglobin.total in Blood [facility] Service Area Work Phone: Comment on above: Expected: 09/25/2023 (Approximate), Expi res: 09/25/2024 Start: 2023 Screening for malignant neoplasm of breast [facility] Start: 04-28-2023 Covid-19 Vaccine ( season) Covid-19 Vaccine ( season) [facility] Start: 04-28-2023 Influenza vaccination [facility] Start: 02-09-2023 End: 02-10-2024 Cyclic citrullinated peptide IgG Ab [Units/volume] in Serum or Plasma [facility] Work Phone: Comment on above: Expected: 02/09/2023 (Approximate), Expi res: 02/10/2024 Start: 02-09-2023 End: 02-10-2024 DNA double strand Ab [Units/volume] in Serum [facility] Service Area Work Phone: Comment on above: Expected: 02/09/2023 (Approximate), Expi res: 02/10/2024 Start: 02-09-2023 End: 02-10-2024 Opiate/Opioid/Benzo Extended Prescription Compliance [facility] Work Phone: Comment on above: Expected: 02/09/2023 (Approximate), Expi res: 02/10/2024 Start: 02-09-2023 End: 02-10-2024 Rheumatoid factor [Units/volume] in Serum by Nephelometry [facility] Work Phone: Comment on above: Expected: 02/09/2023 (Approximate), Expi res: 02/10/2024 Start: 02-09-2023 End: 02-10-2024 Triiodothyronine (T3) Free [Mass/volume] in Serum or Plasma [facility] Work Phone: Comment on above: Expected: 02/09/2023 (Approximate), Expi res: 02/10/2024 Start: 01-05-2023 [facility] Start: 10-25-2022 ELISA, Provider: Vargas Mujica, Status: Ryan, Time: 8:00 AM ELISA, Provider: Vargas Mujica, Status: Ryan, Time: 8:00 AM [facility] Work Phone: Start: 10-11-2022 End: 12-11-2022 Parathyrin.intact [Mass/volume] in Serum or Plasma PTH INTACT BLD Lab Routine Increased PTH level Expected: 10/11/2022, Expires: 12/11/2022 [facility] Work Phone: Comment on above: Expected: 10/11/2022, Expires: 3 Start: 10-10-2022 End: 12-10-2022 25-hydroxyvitamin D3 [Mass/volume] in Serum or Plasma [facility] Work Phone: Comment on above: Expected: 10/10/2022, Expires: 3 Start: 10-10-2022 End: 12-10-2022 Basic metabolic 2000 panel - Serum or Plasma [facility] Work Phone: Comment on above: Expected: 10/10/2022, Expires: 3 Start: 10-10-2022 End: 12-10-2022 Cobalamin (Vitamin B12) [Mass/volume] in Serum or Plasma [facility] Work Phone: Comment on above: Expected: 10/10/2022, Expires: 3 Start: 10-10-2022 End: 12-10-2022 Ferritin [Mass/volume] in Serum or Plasma [facility] Work Phone: Comment on above: Expected: 10/10/2022, Expires: 3 Start: 10-10-2022 End: 12-10-2022 Folate [Mass/volume] in Serum or Plasma [facility] Work Phone: Comment on above: Expected: 10/10/2022, Expires: 3 Start: 10-10-2022 End: 12-10-2022 Iron and Iron binding capacity panel - Serum or Plasma [facility] Work Phone: Comment on above: Expected: 10/10/2022, Expires: 3 Start: 10-10-2022 End: 12-10-2022 Parathyrin.intact [Mass/volume] in Serum or Plasma [facility] Work Phone: Comment on above: Expected: 10/10/2022, Expires: 3 Start: 10-10-2022 End: 12-10-2022 VITAMIN B1 (THIAMINE), WHOLE BLOOD [facility] Work Phone: Comment on above: Expected: 10/10/2022, Expires: 3 Start: 09-27-2022 VIRDEE, Provider: Josselyn Roblero, Status: Pen, Time: 9:30 AM VIRFUDORI, Provider: Josselyn Roblero, Status: Pen, Time: 9:30 AM [facility] Work Phone: Start: 08-17-2022 Troponin I measurement [facility] Work Phone: Start: 08-17-2022 [facility] Start: 07-27-2022 FUV, Provider: Vargas Mujica, Status: Ryan, Time: 8:20 AM FUV, Provider: Vargas Mujica, Status: Ryan, Time: 8:20 AM [facility] Work Phone: Start: 07-12-2022 End: 09-11-2022 25-hydroxyvitamin D3 [Mass/volume] in Serum or Plasma VITAMIN D 25 HYDROXY Lab Routine S/P laparoscopic sleeve gastrectomy Expected: 07/12/2022, Expires: 09/11/2022 [facility] Work Phone: Comment on above: Expected: 07/12/2022, Expires: 3 Start: 07-12-2022 End: 09-11-2022 Basic metabolic 2000 panel - Serum or Plasma BASIC METABOLIC PNL Lab Routine S/P laparoscopic sleeve gastrectomy Expected: 07/12/2022, Expires: 09/11/2022 [facility] Work Phone: Comment on above: Expected: 07/12/2022, Expires: 3 Start: 07-12-2022 End: 09-11-2022 CBC panel - Blood by Automated count CBC Lab Routine S/P laparoscopic sleeve gastrectomy Expected: 07/12/2022, Expires: 09/11/2022 [facility] Work Phone: Comment on above: Expected: 07/12/2022, Expires: 3 Start: 07-12-2022 End: 09-11-2022 Cobalamin (Vitamin B12) [Mass/volume] in Serum or Plasma VITAMIN B12 BLOOD Lab Routine S/P laparoscopic sleeve gastrectomy Expected: 07/12/2022, Expires: 09/11/2022 [facility] Work Phone: Comment on above: Expected: 07/12/2022, Expires: 3 Start: 07-12-2022 End: 09-11-2022 Ferritin [Mass/volume] in Serum or Plasma FERRITIN BLD Lab Routine S/P laparoscopic sleeve gastrectomy Expected: 07/12/2022, Expires: 09/11/2022 [facility] Work Phone: Comment on above: Expected: 07/12/2022, Expires: 3 Start: 07-12-2022 End: 09-11-2022 Folate [Mass/volume] in Serum or Plasma FOLATE SERUM Lab Routine S/P laparoscopic sleeve gastrectomy Expected: 07/12/2022, Expires: 09/11/2022 [facility] Work Phone: Comment on above: Expected: 07/12/2022, Expires: 3 Start: 07-12-2022 End: 09-11-2022 Iron and Iron binding capacity panel - Serum or Plasma IRON + TIBC Lab Routine S/P laparoscopic sleeve gastrectomy Expected: 07/12/2022, Expires: 09/11/2022 [facility] Work Phone: Comment on above: Expected: 07/12/2022, Expires: 3 Start: 07-12-2022 End: 09-11-2022 Parathyrin.intact [Mass/volume] in Serum or Plasma PTH INTACT BLD Lab Routine S/P laparoscopic sleeve gastrectomy Expected: 07/12/2022, Expires: 09/11/2022 [facility] Work Phone: Comment on above: Expected: 07/12/2022, Expires: 3 Start: 07-12-2022 End: 09-11-2022 VITAMIN B1 (THIAMINE), WHOLE BLOOD VITAMIN B1 (THIAMINE), WHOLE BLOOD Lab Routine S/P laparoscopic sleeve gastrectomy Expected: 07/12/2022, Expires: 09/11/2022 [facility] Work Phone: Comment on above: Expected: 07/12/2022, Expires: 3 Start: 2022 End: 09-03-2022 Hepatic function 2000 panel - Serum or Plasma HEPATIC FUNCTION PNL Lab Routine Hepatic fibrosis Expected: 2022, Expires: 09/03/2022 [facility] Work Phone: Comment on above: Expected: 2022, Expires: 3 Start: 04-28-2022 Influenza vaccination [facility]: 04-19-2022 End: 06-19-2022 25-hydroxyvitamin D3 [Mass/volume] in Serum or Plasma VITAMIN D 25 HYDROXY Lab Routine S/P laparoscopic sleeve gastrectomy Expected: 04/19/2022, Expires: 06/19/2022 [facility] Work Phone: Comment on above: Expected: 04/19/2022, Expires: 2 Start: 04-19-2022 End: 06-19-2022 Basic metabolic 2000 panel - Serum or Plasma BASIC METABOLIC PNL Lab Routine S/P laparoscopic sleeve gastrectomy Expected: 04/19/2022, Expires: 06/19/2022 [facility] Work Phone: Comment on above: Expected: 04/19/2022, Expires: 2 Start: 04-19-2022 End: 06-19-2022 CBC panel - Blood by Automated count CBC Lab Routine S/P laparoscopic sleeve gastrectomy Expected: 04/19/2022, Expires: 06/19/2022 [facility] Work Phone: Comment on above: Expected: 04/19/2022, Expires: 2 Start: 04-19-2022 End: 06-19-2022 Cobalamin (Vitamin B12) [Mass/volume] in Serum or Plasma VITAMIN B12 BLOOD Lab Routine S/P laparoscopic sleeve gastrectomy Expected: 04/19/2022, Expires: 06/19/2022 [facility] Work Phone: Comment on above: Expected: 04/19/2022, Expires: 2 Start: 04-19-2022 End: 06-19-2022 Ferritin [Mass/volume] in Serum or Plasma FERRITIN BLD Lab Routine S/P laparoscopic sleeve gastrectomy Expected: 04/19/2022, Expires: 06/19/2022 [facility] Work Phone: Comment on above: Expected: 04/19/2022, Expires: 2 Start: 04-19-2022 End: 06-19-2022 Folate [Mass/volume] in Serum or Plasma FOLATE SERUM Lab Routine S/P laparoscopic sleeve gastrectomy Expected: 04/19/2022, Expires: 06/19/2022 [facility] Work Phone: Comment on above: Expected: 04/19/2022, Expires: 2 Start: 04-19-2022 End: 06-19-2022 Iron and Iron binding capacity panel - Serum or Plasma IRON + TIBC Lab Routine S/P laparoscopic sleeve gastrectomy Expected: 04/19/2022, Expires: 06/19/2022 [facility] Work Phone: Comment on above: Expected: 04/19/2022, Expires: 2 Start: 04-19-2022 End: 06-19-2022 Parathyrin.intact [Mass/volume] in Serum or Plasma PTH INTACT BLD Lab Routine S/P laparoscopic sleeve gastrectomy Expected: 04/19/2022, Expires: 06/19/2022 [facility] Work Phone: Comment on above: Expected: 04/19/2022, Expires: 2 Start: 04-19-2022 End: 06-19-2022 VITAMIN B1 (THIAMINE), WHOLE BLOOD VITAMIN B1 (THIAMINE), WHOLE BLOOD Lab Routine S/P laparoscopic sleeve gastrectomy Expected: 04/19/2022, Expires: 06/19/2022 [facility] Work Phone: Comment on above: Expected: 04/19/2022, Expires: 2 Start: 04-05-2022 End: 06-05-2022 CBC panel - Blood by Automated count CBC Lab Routine Thrombocytopenia (HCC) Expected: 04/05/2022, Expires: 06/05/2022 [facility] Work Phone: Comment on above: Expected: 04/05/2022, Expires: 2 Start: 03-30-2022 FUV, Provider: Vargas Mujica, Status: Ryan, Time: 8:40 AM FUV, Provider: Vargas Mujica, Status: Ryan, Time: 8:40 AM [facility] Work Phone: Start: 03-01-2022 End: 03-01-2023 SARS-CoV-2 (COVID-19) RNA [Presence] in Respiratory specimen by ALISON with probe detection PRE-PROCEDURE & PRE-OPERATIVE COVID Microbiology Routine Morbid obesity (HCC) Expected: 03/01/2022, Expires: 03/01/2023 [facility] Work Phone: Comment on above: Expected: 03/01/2022, Expires: 3 Start: 02-08-2022 End: 04-10-2022 Hepatic function 2000 panel - Serum or Plasma HEPATIC FUNCTION PNL Lab Routine TORRES (nonalcoholic steatohepatitis) Increased liver enzymes Expected: 02/08/2022, Expires: 04/10/2022 [facility] Work Phone: Comment on above: Expected: 02/08/2022, Expires: 2 Start: 02-01-2022 FUV, Provider: Vargas Mujica, Status: Pen, Time: 9:20 AM FUV, Provider: Vargas Mujica, Status: Pen, Time: 9:20 AM [facility] Work Phone: Start: 01-13-2022 End: 01-13-2023 FERNANDO BY IFA SCREEN [facility] Work Phone: Comment on above: Expected: 01/13/2022, Expires: 3 Start: 01-13-2022 End: 03-15-2022 LIVER FIBROSIS AND ACTIVITY [facility] Work Phone: Comment on above: Expected: 01/13/2022, Expires: 2 Start: 01-03-2022 End: 03-05-2022 ALPHA 1 ANTITRYP PHEN/GENOTYPE ALPHA 1 ANTITRYP PHEN/GENOTYPE Lab Routine Dyspnea and respiratory abnormalities Expected: 01/03/2022, Expires: 03/05/2022 [facility] Work Phone: Comment on above: Expected: 01/03/2022, Expires: 2 Start: 01-03-2022 End: 03-05-2022 ALPHA 1 ANTITRYPSIN PHENOTYPE ALPHA 1 ANTITRYPSIN PHENOTYPE Lab Routine Dyspnea and respiratory abnormalities Expected: 01/03/2022, Expires: 03/05/2022 [facility] Work Phone: Comment on above: Expected: 01/03/2022, Expires: 2 Start: 11-19-2021 End: 01-19-2022 CBC panel - Blood by Automated count CBC Lab Routine Class 3 severe obesity due to excess calories with serious comorbidity and body mass index (BMI) of 60.0 to 69.9 in adult ([facility]) Expected: 11/19/2021, Expires: 01/19/2022 [facility] Work Phone: Comment on above: Expected: 11/19/2021, Expires: 2 Start: 11-19-2021 End: 01-19-2022 Comprehensive metabolic 2000 panel - Serum or Plasma COMP METABOLIC PANEL Lab Routine Class 3 severe obesity due to excess calories with serious comorbidity and body mass index (BMI) of 60.0 to 69.9 in adult ([facility]) Expected: 11/19/2021, Expires: 01/19/2022 [facility] Work Phone: Comment on above: Expected: 11/19/2021, Expires: 2 Start: 11-19-2021 End: 01-19-2022 FERRITIN BLD FERRITIN BLD Lab Routine Class 3 severe obesity due to excess calories with serious comorbidity and body mass index (BMI) of 60.0 to 69.9 in adult ([facility]) Expected: 11/19/2021, Expires: 01/19/2022 [facility] Work Phone: Comment on above: Expected: 11/19/2021, Expires: 2 Start: 11-19-2021 End: 01-19-2022 Folate [Mass/volume] in Serum or Plasma FOLATE SERUM Lab Routine Class 3 severe obesity due to excess calories with serious comorbidity and body mass index (BMI) of 60.0 to 69.9 in adult ([facility]) Expected: 11/19/2021, Expires: 01/19/2022 [facility] Work Phone: Comment on above: Expected: 11/19/2021, Expires: 2 Start: 11-19-2021 End: 01-19-2022 IRON + TIBC IRON + TIBC Lab Routine Class 3 severe obesity due to excess calories with serious comorbidity and body mass index (BMI) of 60.0 to 69.9 in adult ([facility]) Expected: 11/19/2021, Expires: 01/19/2022 [facility] Work Phone: Comment on above: Expected: 11/19/2021, Expires: 2 Start: 11-19-2021 End: 01-19-2022 PTH INTACT BLD PTH INTACT BLD Lab Routine Class 3 severe obesity due to excess calories with serious comorbidity and body mass index (BMI) of 60.0 to 69.9 in adult ([facility]) Expected: 11/19/2021, Expires: 01/19/2022 [facility] Work Phone: Comment on above: Expected: 11/19/2021, Expires: 2 Start: 11-19-2021 End: 01-19-2022 VITAMIN B1 (THIAMINE), WHOLE BLOOD VITAMIN B1 (THIAMINE), WHOLE BLOOD Lab Routine Class 3 severe obesity due to excess calories with serious comorbidity and body mass index (BMI) of 60.0 to 69.9 in adult ([facility]) Expected: 11/19/2021, Expires: 01/19/2022 [facility] Work Phone: Comment on above: Expected: 11/19/2021, Expires: 2 Start: 11-19-2021 End: 01-19-2022 VITAMIN B12 BLOOD VITAMIN B12 BLOOD Lab Routine Class 3 severe obesity due to excess calories with serious comorbidity and body mass index (BMI) of 60.0 to 69.9 in adult ([facility]) Expected: 11/19/2021, Expires: 01/19/2022 [facility] Work Phone: Comment on above: Expected: 11/19/2021, Expires: 2 Start: 11-19-2021 End: 01-19-2022 VITAMIN D 25 HYDROXY VITAMIN D 25 HYDROXY Lab Routine Class 3 severe obesity due to excess calories with serious comorbidity and body mass index (BMI) of 60.0 to 69.9 in adult (HCC) Expected: 11/19/2021, Expires: 01/19/2022 [facility] Work Phone: Comment on above: Expected: 11/19/2021, Expires: Start: 10-28-2021 FUV, Provider: Josselyn Roblero, Status: Pen, Time: 8:30 AM FUV, Provider: Josselyn Roblero, Status: Pen, Time: 8:30 AM [facility] Work Phone: Start: 05-25-2021 FUV, Provider: Vargas Mujica, Status: Pen, Time: 3:40 PM FUV, Provider: Vargas Mujica, Status: Pen, Time: 3:40 PM [facility] Work Phone: Start: 04-28-2021 Influenza vaccination INFLUENZA (#1) [facility] Start: 02-16-2020 ANNUAL PCP TEAM CHRONIC DISEASE VISIT ANNUAL PCP TEAM CHRONIC DISEASE VISIT [facility] Start: 10-23-2017 Hepatitis A Vaccines (2 of 3 - Hep A Twinrix risk 3-dose series) Hepatitis A Vaccines (2 of 3 - Hep A Twinrix risk 3-dose series) [facility] Start: 10-23-2017 HEPATITIS B (2 of 3 - Hep B Twinrix 3-dose series) HEPATITIS B (2 of 3 - Hep B Twinrix 3-dose series) [facility] Start: 10-23-2017 Hepatitis B Vaccine (2 of 3 - Hep B Twinrix 3-dose series) Hepatitis B Vaccine (2 of 3 - Hep B Twinrix 3-dose series) [facility] Start: 10-23-2017 Hepatitis B Vaccines (2 of 3 - Hep B Twinrix 3-dose series) Hepatitis B Vaccines (2 of 3 - Hep B Twinrix 3-dose series) [facility] Start: 2005 DTaP/Tdap/Td Vaccines (1 - Tdap) DTaP/Tdap/Td Vaccines (1 - Tdap) [facility] Start: 2004 Screening for malignant neoplasm of cervix [facility] Start: 2002 Urine microalbumin profile [facility] Start: 2001 Annual PCP Team Chronic Disease Visit Annual PCP Team Chronic Disease Visit [facility] Start: 2001 Anxiety Screening Anxiety Screening [facility] Start: 2001 HIV SCREENING HIV SCREENING [facility] Start: 2001 HIV screening HIV Screening [facility] Start: 1996 Varicella vaccination Varicella Vaccines (1 of 2 - 13+ 2-dose series) [facility] Start: 1988 COVID-19 VACCINE (#1) COVID-19 VACCINE (#1) [facility] Start: 1988 COVID-19 VACCINE (1) COVID-19 VACCINE (1) [facility] Start: 1984 MMR Vaccines (1 of 1 - Standard series) MMR Vaccines (1 of 1 - Standard series) [facility] Start: 1984 Varicella vaccination Varicella Vaccines (1 of 2 - 2-dose childhood series) [facility] Start: 01-02-1984 COVID-19 VACCINE (#1) COVID-19 VACCINE (#1) [facility] Start: 1983 HIV screening HIV Screening [facility] Start: 1983 Lipid panel Lipid Panel [facility] Start: 1983 Yearly Adult Physical Yearly Adult Physical [facility] Confirmation Opiate/Opioid/Benzo Prescription Compliance Confirmation Opiate/Opioid/Benzo Prescription Compliance Lab Routine Anxiety Medication management 02/28/2024 2:51 PM EDT [facility] Work Phone: End: 05-19-2023 Ct abdomen & pelvis w/contrast material CT ABD/PEL W IVCON Radiology STAT S/P laparoscopic sleeve gastrectomy Right sided abdominal pain 1 Occurrences starting 04/19/2022 until 05/19/2023 [facility] Work Phone: Comment on above: 1 Occurrences starting 04/19/2022 until 05/19/2023 End: 02-27-2026 CT Heart and Coronary arteries for calcium scoring WO contrast CT CALCIUM SCORING SELF PAY Radiology Routine Sinus bradycardia Encounter for screening for cardiovascular disorders 1 Occurrences starting 01/28/2025 until 02/27/2026 [facility] Comment on above: 1 Occurrences starting 01/28/2025 until 02/27/2026 End: 02-02-2023 Ct thorax w/o contrast material CT CHEST WO IVCON Radiology Routine Shortness of breath 1 Occurrences starting 01/03/2022 until 02/02/2023 [facility] Work Phone: Comment on above: 1 Occurrences starting 01/03/2022 until 02/02/2023 End: 02-02-2023 LUNG DIFFUSION CAPACITY (DLCO) LUNG DIFFUSION CAPACITY (DLCO) PFT Routine Dyspnea and respiratory abnormalities 1 Occurrences starting 01/03/2022 until 02/02/2023 [facility] Work Phone: Comment on above: 1 Occurrences starting 01/03/2022 until 02/02/2023 LUNG DIFFUSION CAPAC ITY (DLCO) LUNG DIFFUSION CAPACITY (DLCO) PFT Routine Dyspnea and respiratory abnormalities 02/02/2022 6:03 AM EDT [facility] Work Phone: End: 02-02-2023 LUNG VOLUMES LUNG VOLUMES PFT Routine Dyspnea and respiratory abnormalities 1 Occurrences starting 01/03/2022 until 02/02/2023 [facility] Work Phone: Comment on above: 1 Occurrences starting 01/03/2022 until 02/02/2023 LUNG VOLUMES LUNG VOLUMES PFT Routine Dyspnea and respiratory abnormalities 02/02/2022 6:03 AM EDT [facility] Work Phone: OOB Internal Tracking OOB [employer] al Tracking Lab Routine Anxiety Medication management 02/28/2024 2:51 PM EDT [facility] Work Phone: OPIATE/OPIOID/BENZO PRESCRIPTION COMPLIANCE OPIATE/OPIOID/BENZO PRESCRIPTION COMPLIANCE Lab Routine Anxiety Medication management 02/09/2023 4:22 PM EDT [facility] Work Phone: Opiate/Opioid/Benzo Prescription Compliance Opiate/Opioid/Benzo Prescription Compliance Lab Routine Anxiety Medication management 02/28/2024 2:51 PM EDT [facility] Work Phone: OUTSIDE VENDOR CARDI AC OUTPATIENT EXTENDED RHYTHM RECORDING (WITHOUT TELEMETRY) OUTSIDE VENDOR CARDIAC OUTPATIENT EXTENDED RHYTHM RECORDING (WITHOUT TELEMETRY) Holter Routine Dizzy Ordered: 01/09/2023 [facility] Work Phone: Comment on above: Ordered: 01/09/2023 OUTSIDE VENDOR CARDI AC OUTPATIENT EXTENDED RHYTHM RECORDING (WITHOUT TELEMETRY) OUTSIDE VENDOR CARDIAC OUTPATIENT EXTENDED RHYTHM RECORDING (WITHOUT TELEMETRY) Holter Routine Sinus bradycardia Encounter for screening for cardiovascular disorders Ordered: 01/28/2025 [facility] Work Phone: Comment on above: Ordered: 01/28/2025 Patient Education [facility] Work Phone: Patient referral [facility] Work Phone: Screen Opiate/Opioid/Benzo Prescription Compliance Screen Opiate/Opioid/Benzo Prescription Compliance Lab Routine Anxiety Medication management 02/28/2024 2:52 PM EDT [facility] Work Phone: End: 02-02-2023 SPIROMETRY - BASELINE AND POST DILATOR SPIROMETRY - BASELINE AND POST DILATOR PFT Routine Dyspnea and respiratory abnormalities 1 Occurrences starting 01/03/2022 until 02/02/2023 [facility] Work Phone: Comment on above: 1 Occurrences starting 01/03/2022 until 02/02/2023 SPIROMETRY - BASELIN E AND POST DILATOR SPIROMETRY - BASELINE AND POST DILATOR PFT Routine Dyspnea and respiratory abnormalities 02/02/2022 6:03 AM EDT [facility] Work Phone: Troponin I measurement [facility] Work Phone: End: 02-12-2023 Us abdominal real time w/image documentation US ABDOMEN COMPLETE Radiology Routine Fatty liver Increased liver enzymes 1 Occurrences starting 01/13/2022 until 02/12/2023 [facility] Work Phone: Comment on above: 1 Occurrences starting 01/13/2022 until 02/12/2023 Us abdominal real ti me w/image documentation US ABDOMEN COMPLETE Radiology Routine Fatty liver Increased liver enzymes 02/02/2022 7:43 AM EDT [facility] Work Phone: [facility] Immunizations Immunization Date Immunization Notes Care Provider Ameya escamilla 09-18-2018 influenza, injectabl e, quadrivalent, preservative free [facility] 09-18-2018 influenza, seasonal, injectable Marjan Gromovsky AIR EXPORT COORDINATOR.HOT WORKER Work Phone: [facility] Work Phone: 09-18-2018 influenza, seasonal, injectable, preservative free Vargas Mujica Work Phone: [facility] 09-18-2018 influenza virus vaccine, unspecified formulation Vargas Mujica PA-C Work Phone: [facility] Work Phone: 09-25-2017 hepatitis A and hepatitis B vaccine Vargas Mujica Work Phone: [facility] 09-25-2017 hepatitis B vaccine, unspecified formulation Marjan Gromovsky AIR EXPORT COORDINATOR.HOT WORKER Work Phone: [facility] 06-13-2017 influenza, injectabl e, quadrivalent, preservative free [facility] 06-13-2017 influenza, seasonal, injectable Marjan Gromovsky AIR EXPORT COORDINATOR.HOT WORKER Work Phone: [facility] Work Phone: 06-13-2017 influenza, seasonal, injectable, preservative free Marjan Gromovsky AIR EXPORT COORDINATOR.HOT WORKER Work Phone: [facility] Payers Date Payer Category Payer Self-pay [id number] 2022 Managed Care (Private) [id number] 2022 Unknown [address] [employer] [id number] 2021-Present [phone] [facility] [id number] [place] [id number] Open Access [id number] 2021 Private Health Insurance [id number] 2019 Private Health Insurance [id number] 2017 Unknown [id number] 1983 Unknown [id number] 78 1983 Unknown [id number] 56 1983 Unknown [id number] 56 1983 Unknown [id number] 56 1983 Unknown [id number] 56 1983 Unknown [id number] 56 1983 Unknown [id number] 56 1983 Unknown [id number] 56 1983 Unknown [id number] [id number] 069 1985 Unknown [id number] 2.16840.1.643715.3.579.2.1 243 1985 Unknown [id number] 2.16.840.1.417221.3.579.2.1 243 1983 Unknown [id number] 2.16.840.1.411183.3.579.2.1 245 1983 Unknown [id number] 2.16.840.1.477151.3.579.2.1 245 1983 Unknown [id number] 2.16.840.1.072626.3.579.2.1 244 1983 Unknown [id number] 2.16.840.1.081215.3.579.2.1 244 1985 Unknown [id number] 2.16.840.1.187721.3.579.2.[address] [facility] [id number] Unknown [id number] 2.16.840.1.614047.3.579.2.4 62 Unknown [id number] 2.16.840.1.206031.3.579.2.4 62 Unknown [id number] 2.16.840.1.740447.3.579.2.4 62 Unknown [id number] 2.16840.1.934407.3.579.2.4 62 Unknown [id number] 2.16.840.1.315853.3.579.2.4 62 Unknown [id number] 2.16.840.1.582240.3.579.2.4 62 Unknown [id number] 2.16.840.1.723167.3.579.2.4 62 Unknown [id number] 2.16.840.1.259598.3.579.2.4 62 Unknown [id number] 2.16.840.1.559575.3.579.2.4 62 Unknown [id number] 2.16.840.1.853548.3.579.2.4 62 Unknown [id number] 2.16.840.1.664323.3.579.2.4 62 Unknown [id number] 2.16.840.1.858763.3.579.2.4 62 Unknown [id number] 2.16.840.1.937237.3.579.2.4 62 Unknown [id number] 2.16.840.1.773067.3.579.2.4 62 Unknown [id number] 2.16.840.1.227665.3.579.2.4 62 Unknown [id number] 2.16.840.1.315417.3.579.2.4 62 Unknown [id number] 2.16.840.1.831378.3.579.2.4 62 Unknown [id number] 2.16.840.1.295907.3.579.2.4 62 Social History Date Type Detail Facility Start: 06-26-2019 End: 01-28-2025 Former smoker Former smoker [facility] Work Phone: Start: 06-26-2019 End: 04-24-2024 Tobacco smoking status NHIS Ex-smoker [facility] Start: 08-28-2009 End: 08-28-2019 History of tobacco use Current smoker [facility] Start: 08-28-2009 End: 08-28-2019 History of tobacco use Cigarette Smoker [facility] Start: 06-26-2019 End: 04-24-2024 Tobacco use and exposure Smokeless tobacco non-user [facility] Start: 11-19-2021 End: 06-07-2024 Alcohol intake Ex-drinker (finding) [facility] Start: 03-15-2019 End: 04-06-2022 Tobacco Comment total quit 2017. currently 5 cigarettes/month [facility] Start: 1985 Sex Assigned At Female [facility] Start: 11-19-2020 End: 11-06-2024 Exposure to SARS-CoV-2 (event) Not sure [facility] Start: 03-25-2022 End: 04-11-2022 Exposure to SARS-CoV-2 (event) Yes [facility] Start: 08-17-2022 End: 10-19-2023 Tobacco smoking status NHIS Unknown if ever smoked [facility] Start: 06-07-2020 None [facility] Start: 06-07-2020 With Family [facility] Start: 06-23-2020 Non-smoker [facility] Start: 02-09-2023 Alcohol intake Current drinke r of alcohol (finding) [facility] Work Phone: Start: 02-09-2023 End: 01-28-2025 Tobacco use panel [facility] Work Phone: Start: 02-08-2023 Alcohol Comment OCCASIONALLY [facility] Work Phone: Start: 1985 Sex Assigned At Not on file [facility] Work Phone: Tobacco smoking status No Smoking Status Entered [facility] Work [facility]: Start: 06-07-2021 Gender identity Identifies as female gender (finding) [facility] Start: 06-07-2021 Sexual orientation Heterosexual (huan light) [facility] NEGATED: Highlighted row - - -[facility] Work Phone: NEGATED: Highlighted row [facility] Goals Date Patient Goal Desired Activity /State Personal health goal Personal health goal Personal health goal Personal health goal Functional Status Date Assessment Result Facility 05-15-[address] [facility] 05-15-2023 Functional Status ID band on, Allergy Band on, Call device within reach, Bed in low position, Wheels locked, Upper/Half-Length side-rails up, Visitor at bedside [facility] 09-26-2018 Are you deaf, or do you have serious difficulty hearing No 09/26/2018 2:05 PM Mabel Bates (Rn) (Hist), RN No [facility] 09-26-2018 Are you blind, or do you have serious difficulty seeing, even when wearing glasses No 09/26/2018 2:05 PM Mabel BatesRn) (Hist), RN No [facility] 09-26-2018 Do you have serious difficulty walking or climbing stairs No 09/26/2018 2:05 PM Mabel BatesRn) (Hist), RN No [facility] 09-26-2018 Do you have difficul ty dressing or bathing No 09/26/2018 2:05 PM Mabel BatesRn) (Hist), RN No [facility] 09-26-2018 Because of a physica l, mental, or emotional condition, do you have difficulty doing errands alone such as visiting a physician's office or shopping No 09/26/2018 2:05 PM Mabel BatesRn) (Hist), RN No [facility] NEGATED: Highlighted row Functional performance Functional status health issues are not documented Disease [facility] Work Phone: Mental Status Date Assessment Result Facility 10-19-2023 Cognitive function Level Of Cons ciousness Awake;Alert;Appropriate ;Follows Commands [facility] Work Phone: 10-03-2023 Cognitive function Level Of Cons ciousness Awake;Alert;Appropriate ;Follows Commands [facility] Work Phone: 05-15-2023 Mental Status Orientation Orie nted x [address] [facility] 05-15-2023 Mental Status [facility] 01-05-2023 Cognitive function Awake;Alert;Appropriat e [facility] Work Phone: 11-15-2022 Cognitive function Voice/Name [facility] Work Phone: 08-17-2022 Cognitive function Voice/Name [facility] Work Phone: 09-26-2018 Because of a physical, mental, or emotional condition, do you have serious difficulty concentrating, remembering, or making decisions No 09/26/2018 2:05 PM Mabel BatesRn) (Hist), RN No [facility] NEGATED: Highlighted row Cognitive function [Interpretation] Cognitive status health issues are not documented Disease -[facility] Work Phone: Clinical Notes 03-03-2008 to 02-10-2025 Telephone Encounter - Lexis Owen RN - 02/10/2025 3:03 PM EDTTelephone Encounter - Lexis Owen RN - 02/10/2025 3:03 PM EDTTelephone Encounter - Lexis Owen RN - 02/10/2025 2:57 PM EDT Note Date & Type Note Facility 02-10-2025 Telephone encounter Note Curly Cowart returned call. Relayed holter results and she voiced understanding. Lexis Owen RN [facility] 02-10-2025 Miscellaneous Notes Curly Cowart returned call. Relayed holter results and she voiced understanding. Lexis Owen RN LVM and sent my chart message with results. Lexis Owen RN ----- Message from Johanny Marmolejo APRN.HOT WORKER sent at 02/10/2025 2:41 PM EDT ----- Please call patient and notify her of Holter monitor report. NO significant arrhythmias. No ventricular arrhythmias, no a-fib, no heart block. Heart rate was not too low. There was a min HR of 41 bpm, max HR of 141 bpm, and avg HR of 64 bpm. Predominant underlying rhythm was Sinus Rhythm. Please call patient and notify her of Holter monitor report. NO significant arrhythmias. No ventricular arrhythmias, no a-fib, no heart block. Heart rate was not too low. There was a min HR of 41 bpm, max HR of 141 bpm, and avg HR of 64 bpm. Predominant underlying rhythm was Sinus Rhythm. documented in this encounter [facility] 02-10-2025 Telephone encounter Note LVM and sent my chart message with results. Lexis Owen RN [facility] 02-10-2025 Telephone encounter Note ----- Message from Johanny Marmolejo APRN.CNP sent at 02/10/2025 2:41 PM EDT ----- Please call patient and notify her of Holter monitor report. NO significant arrhythmias. No ventricular arrhythmias, no a-fib, no heart block. Heart rate was not too low. There was a min HR of 41 bpm, max HR of 141 bpm, and avg HR of 64 bpm. Predominant underlying rhythm was Sinus Rhythm. [facility] 02-10-2025 Progress note Formatting of t his note might be different from the original. Please call patient and notify her of Holter monitor report. NO significant arrhythmias. No ventricular arrhythmias, no a-fib, no heart block. Heart rate was not too low. There was a min HR of 41 bpm, max HR of 141 bpm, and avg HR of 64 bpm. Predominant underlying rhythm was Sinus Rhythm. [facility] Work Phone: 01-29-2025 Telephone encounter Note Order faxed. Confirmation received. Boris Roberts RN [facility] 01-29-2025 Miscellaneous Notes Order faxed. Confirmation received. Boris Roebrts RN [facility] asking for an order for Calcium Scoring to be faxed to [phone]. Johanny Meredith LPN documented in this encounter [facility] 01-29-2025 Telephone encounter Note [facility] asking for an order for Calcium Scoring to be faxed to [phone]. Johanny Meredith LPN [facility] 01-28-2025 Instructions Johanny Marmolejo APRN.[facility] - 01/28/2025 2:54 PM EDT Heart Disease in Women Is heart disease a problem for women? Heart disease is the leading cause of of [place] women. More women from heart disease than from cancer. A heart attack can happen when there are problems with the blood vessels that bring blood to the heart (the coronary arteries). For example, fatty deposits called plaque may build up in the coronary arteries and make them narrower. The narrowing decreases blood flow to the heart. Plaque also increases the chance that blood clots may form and block a blood vessel, which can cause a heart attack or stroke. In the first year after a heart attack, women have an increased risk of . In the first 6 years after a heart attack, they also have a higher risk of a second heart attack. Women are at high risk often because they are older at the time of the heart attack and have other medical problems. Not everyone has the same symptoms. The most common symptoms of a heart attack include: Chest pain or pressure, squeezing, or fullness in the center of your chest that lasts more than a few minutes, or goes away and comes back (may feel like indigestion or heartburn) Pain or discomfort in one or both arms or shoulders, or in your back, neck, jaw, or stomach Trouble breathing Breaking out in a cold sweat for no known reason Along with these symptoms, you may also feel very tired, faint, or be sick to your stomach. Sometimes you can be having a heart attack and not know it. Many women have chest pain or pressure, but sometimes symptoms in women are different from men s symptoms. Or women may have additional symptoms, such as: Unexplained anxiety and nervousness Swelling of the ankles or lower legs Because they may not feel the typical pain in the left side of their chest, many women may ignore the symptoms of a heart attack. Call 911 for emergency help right away if you have these symptoms. Do not drive yourself to the hospital. Immediate emergency care improves your chances of survival and may help avoid damage to your heart. How can women lower their risk for heart disease? If you have high blood pressure, carefully follow your healthcare provider's instructions for keeping it under control. If you are a smoker, stop smoking. Try to keep a healthy weight. If you are overweight, talk to your provider about ways to lose weight. Eat a healthy diet that includes: ?Avoiding salty foods and not adding salt to food ?Increasing fiber, fruits, and vegetables ?Avoiding foods high in fat, cholesterol, and sugar Exercise according to your healthcare provider's instructions. Get enough rest and learn to use relaxation methods to help reduce stress. Treat and control medical conditions such as diabetes and high cholesterol. If you are taking hormone therapy, you and your healthcare provider should discuss the risks and benefits. Hormone therapy may increase the risk for heart disease or stroke. Talk with your provider about taking aspirin. Low-dose aspirin therapy reduces the risk of stroke for women. But it helps to lower a woman s risk of heart attack and other heart problems only if she is 65 or older. Make sure that your provider knows about any other medicines you are taking. If you decide you need to make changes in the way you live, you probably won't be able to turn your life around all at once. Try to develop healthy habits that incorporate your lifestyle goals. If you do, you will greatly decrease your chances for developing heart disease. You can get more information from: [place] [facility] Pjwmdmlhdqm2-147-ODD-[place]-1 ( )www.heart.org Developed by [employer]. Published by [employer]. Copyright [address] and/or one of its subsidiaries. All rights reserved. documented in this encounter [facility] 01-28-2025 History of Present illness Narrative Chief Complaint Patient presents with: Cardiology Follow Up - Generic: sooner f/u than shaun - bradycardia History of Present Illness: Curly Cowart is a very pleasant 39 year old female who presents for symptom concerns. She has a past medical history of wide-complex tachycardia (s/p ablation 2019 at [facility]), gastric bypass surgery. She is known to Dr. Garay, last seen in our [place] office location 01/09/2023. The patient is a 39-year-old female with a history of VT, status post-ablation in 2019, presenting for evaluation of bradycardia and fatigue. The patient reports a progressively decreasing heart rate since her VT ablation in 2019, with current readings in the 40s to 50s, compared to a previous baseline of 60 bpm. She denies any recurrence of VT since the ablation. She experiences significant fatigue but attributes it partially to poor sleep. She denies experiencing lightheadedness or syncope. She is not currently on any medications that would lower her heart rate, such as beta-blockers. Patient lately noticed increased episodes of palpitations not associated with any dizziness or lightheadedness but chest tightness She also noticed that her heart rate is slow down in the 50s She reports intermittent chest pain, described as random pains in the heart area and occasionally on the opposite side. She also experiences arm pain and has had episodes of arm numbness lasting up to a week, which resolved spontaneously. These symptoms have been occurring on and off for years. She describes a constant feeling of inflammation and swelling, though she attributes this to a previously diagnosed Shahzad's thyroiditis, for which she is not currently on medication due to normal thyroid levels. She expresses concern about an underlying condition affecting her entire body. She has a significant family history of cardiac issues, including AFib, CHF, and heart valve abnormalities. Her grandfather underwent a heart transplant but did not survive. Her father had multiple health issues, including cardiac problems, and almost two years ago. She also reports a history of VT in her family. She is currently working with a dietitian through [employer] to improve her health and manage her weight. She is also undergoing therapy to address the emotional stress and trauma related to her past medical experiences and family health issues. She has a prescription for Ativan 1 mg as needed for anxiety but has been avoiding its use due to concerns about its potential effects on her heart rate. She denies taking Wellbutrin, Lasix, calcium citrate, or Effexor. Patient scheduled for follow up Dr. Garay's first available appointment in [place] on 09/15/2025. PAST MEDICAL HISTORY Diagnosis Date Zntot-5-hjgctwhirml deficiency (HCC) Cardiac dysrhythmia, unspecified 2007 Depressive disorder, not elsewhere classified DVT (deep venous thrombosis) (HCC) after PICC line Esophageal reflux Shahzad thyroiditis 04/09/2015 Intestinal disaccharidase deficiencies and disaccharide malabsorption Irritable bowel syndrome Morbid obesity (HCC) stated BMI 47.3 BRISEYDA (obstructive sleep apnea) Other chronic nonalcoholic liver disease Personal history of tobacco use, presenting hazards to health 1/2 ppd x 5 years; quit 08/18/14 - restarted and quit in 2019 Pneumonia due to COVID-19 virus 07/2021 Pulmonary embolism (HCC) after PICC line V-tach (HCC) PAST SURGICAL HISTORY Procedure Laterality Date DELIVERY ONLY 2003 , low cervical CHOLECYSTECTOMY 01/08/2008 EGD 04/2021 EGD 02/2021 LAPAROSCOPIC GASTRECTOMY 04/11/2022 LAPAROSCOPIC UTERINE NERVE ABLATION 2011 LIVER BIOPSY 2008 MIDLINE CATHETER 09/21/2018 PAST SURGICAL HISTORY OF 2009 spring coils in fallopian tubes S BALLOON,UTERINE ABLATION [id number] 2009 SHX CARDIAC RADIOFREQUENCY ABLATION 2018 ventricular TONSILLECTOMY PRIMARY/SECONDARY <AGE 12 2003 Tonsillectomy, wisdom teeth FAMILY HISTORY Problem Relation Age of Onset Anxiety disorder Mother panic attacks Heart Attack Father 54 Heart disease Father coronary stents other (liver disease) Father alpha 1 antitrypsin; has liver transplant other (atrial fibrillation) Father Thyroid Sister Hashimotos Anxiety disorder Sister other (atrial fibrillation) Paternal Grandmother Heart disease Paternal Grandfather heart transplant other (liver failure) Paternal Grandfather Anxiety disorder Sister other (atrial fibrillation) Paternal Uncle other (atrial fibrillation) Paternal Aunt Social History Tobacco Use Smoking status: Former Current packs/day: 0.00 Average packs/day: 0.5 packs/day for 10.0 years (5.0 ttl pk-yrs) Types: Cigarettes Start date: 2009 Quit date: 2019 Years since quittin.4 Smokeless tobacco: Never Tobacco comments: total quit 2017. currently 5 cigarettes/month Vaping Use Vaping status: Never Used Substance Use Topics Alcohol use: Not Currently Drug use: No Comment: no medical THC card ALLERGIES Allergen Reactions Bupropion Rash Citalopram Other: See Comments, Vomiting Doxycycline Hives Hydrocodone-Acetami* Hives, GI Upset Meclizine Other: See Comments Morphine Other: See Comments Abdominal pain Nadolol Itching Penicillins Hives Prednisone Itching Bupropion Hcl Rash Medications: Current Outpatient Medications Medication Sig Dispense Refill aspirin 81 mg chewable tablet Take 81 mg by mouth once daily. pantoprazole DR (PROTONIX) 40 mg tablet TAKE 1 TABLET BY MOUTH EVERY DAY 90 tablet 1 BIOTIN ORAL Take by mouth once daily. multivit-min/iron/folic acid/K (BARIATRIC MULTIVITAMINS ORAL) Take by mouth once daily. Lactobac no.41/Bifidobact no.7 (PROBIOTIC-10 ORAL) Take by mouth. LORazepam (ATIVAN) 0.5 mg Take 1 mg by mouth as needed. venlafaxine ER (EFFEXOR XR) 75 mg 24 hr capsule Take 75 mg by mouth two times a day. buPROPion SR (WELLBUTRIN SR) 150 mg 12 hr tablet PLEASE SEE ATTACHED FOR DETAILED DIRECTIONS furosemide (LASIX) 20 mg tablet Take 20 mg by mouth once daily. CALCIUM CITRATE ORAL Take by mouth once daily. No current facility-administered medications for this visit. Review of Systems Constitutional: Positive for malaise/fatigue. Negative for chills, diaphoresis, fever and weight loss. HENT: Negative for congestion, ear pain, nosebleeds, sinus pain and sore throat. Eyes: Negative for pain. Respiratory: Negative for cough, shortness of breath and wheezing. Cardiovascular: Positive for chest pain. Negative for palpitations and leg swelling. Gastrointestinal: Negative for abdominal pain, blood in stool and melena. Genitourinary: Negative for hematuria. Musculoskeletal: Negative for falls. Neurological: Negative for dizziness, tingling, sensory change, speech change, focal weakness, loss of consciousness, weakness and headaches. Endo/Heme/Allergies: Does not bruise/bleed easily. Psychiatric/Behavioral: Negative for depression, memory loss and suicidal ideas. The patient is nervous/anxious. The patient does not have insomnia. Physical Examination: Vitals:BP 128/78 Pulse 72 Wt 339 lb (153.8kg) SpO2 98% LMP 07/11/2016 Last 2 Encounter Wt Readings: Date: Wt: 06/07/2024 334 lb 10.5 oz (151.8 kg) 04/24/2024 326 lb 15.1 oz (148.3 kg) Physical Exam HENT: Head: Normocephalic. Eyes: Pupils: Pupils are equal, round, and reactive to light. Cardiovascular: Rate and Rhythm: Normal rate and regular rhythm. Pulses: Radial pulses are 2+ on the right side and 2+ on the left side. Dorsalis pedis pulses are 2+ on the right side and 2+ on the left side. Heart sounds: Normal heart sounds, S1 normal and S2 normal. Pulmonary: Effort: Pulmonary effort is normal. No accessory muscle usage or respiratory distress. Breath sounds: Normal breath sounds. Abdominal: General: Bowel sounds are normal. Palpations: Abdomen is soft. Musculoskeletal: General: Normal range of motion. Cervical back: Normal range of motion. Right lower leg: No edema. Left lower leg: No edema. Skin: General: Skin is warm and dry. Neurological: Mental Status: She is alert and oriented to person, place, and time. Gait: Gait is intact. Psychiatric: Mood and Affect: Affect normal. Cognition and Memory: Memory normal. Judgment: Judgment normal. Most Recent Cardiac Testing Echo 01/24/2023 CONCLUSIONS: - Exam indication: Palpitations - The left ventricle is normal in size. Left ventricular systolic function is normal. EF = 59 5% (2D biplane) Normal left ventricular diastolic function. GLS= -19.7% Normal. - The right ventricle is normal in size. Right ventricular systolic function is normal. - There are no significant valvular abnormalities. - Exam was compared with the prior echocardiographic exam performed on 12/04/2018. There is no significant change. Monitor January 2023 Patient had a min HR of 36 bpm, max HR of 166 bpm, and avg HR of 67 bpm. Predominant underlying rhythm was Sinus Rhythm. 2 Supraventricular Tachycardia runs occurred, the run with the fastest interval lasting 6 beats with a max rate of 164 bpm, the longest lasting 12.1 secs with an avg rate of 127 bpm. Supraventricular Tachycardia was detected within +/- 45 seconds of symptomatic patient event(s). Isolated SVEs were rare (<1.0%), SVE Triplets were rare (<1.0%), and no SVE Couplets were present. Isolated VEs were rare (<1.0%), and no VE Couplets or VE Triplets were present. Assessment and Plan: 1. Sinus bradycardia (R00.1) Heart rate has progressively decreased to the 40s-50s since the VT ablation in 2018. No recurrence of VT. Patient experiences fatigue but denies syncope or significant lightheadedness. No current use of beta blockers or other medications that could lower heart rate. - Ordered a Holter monitor to evaluate heart rate and rhythm; monitor will be mailed to the patient's home. - Discussed potential need for pacemaker if bradycardia becomes symptomatic or if heart block is detected. - OUTSIDE VENDOR CARDIAC OUTPATIENT EXTENDED RHYTHM RECORDING (WITHOUT TELEMETRY) - CT CALCIUM SCORING SELF PAY 2. Encounter for screening for cardiovascular disorders (Z13.6) Family history significant for various cardiac disorders, including AFib, CHF, and heart transplants. Patient reports intermittent chest pain and arm numbness. - Ordered a CT coronary calcium scoring to assess for coronary artery disease; patient to schedule at [facility]. - Consider follow-up with functional medicine or holistic doctor to explore potential underlying autoimmune or inflammatory conditions. - Scheduled follow-up appointment with Dr. Garay in August. - OUTSIDE VENDOR CARDIAC OUTPATIENT EXTENDED RHYTHM RECORDING (WITHOUT TELEMETRY) - CT CALCIUM SCORING SELF PAY 4. 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 BMI 50.0-59.9, adult (HCC) - ICD9: V85.43, ICD10: Z68.43 - Lifestyle modifications Follow up as planned. Electronically signed by Johanny Marmolejo APRN.CNP on January 28, 2025, 12:51 PM documented in this encounter [facility] 01-28-2025 Note HNO ID: [id number] Author: JOHANNY MARMOLEJO APRN.CNP Service: ? Author Type: Nurse Practitioner Type: Progress Notes Filed: 01/30/2025 11:11 Note Text: Chief Complaint Patient presents with: Cardiology Follow Up - Generic: sooner f/u than shaun - bradycardia History of Present Illness: Curly Cowart is a very pleasant 39 year old female who presents for symptom concerns. She has a past medical history of wide-complex tachycardia (s/p ablation 2019 at [facility]), gastric bypass surgery. She is known to Dr. Garay, last seen in our [place] office location 01/09/2023. The patient is a 39-year-old female with a history of VT, status post-ablation in 2019, presenting for evaluation of bradycardia and fatigue. The patient reports a progressively decreasing heart rate since her VT ablation in 2019, with current readings in the 40s to 50s, compared to a previous baseline of 60 bpm. She denies any recurrence of VT since the ablation. She experiences significant fatigue but attributes it partially to poor sleep. She denies experiencing lightheadedness or syncope. She is not currently on any medications that would lower her heart rate, such as beta-blockers. Patient lately noticed increased episodes of palpitations not associated with any dizziness or lightheadedness but chest tightness She also noticed that her heart rate is slow down in the 50s She reports intermittent chest pain, described as random pains in the heart area and occasionally on the opposite side. She also experiences arm pain and has had episodes of arm numbness lasting up to a week, which resolved spontaneously. These symptoms have been occurring on and off for years. She describes a constant feeling of inflammation and swelling, though she attributes this to a previously diagnosed Shahzad's thyroiditis, for which she is not currently on medication due to normal thyroid levels. She expresses concern about an underlying condition affecting her entire body. She has a significant family history of cardiac issues, including AFib, CHF, and heart valve abnormalities. Her grandfather underwent a heart transplant but did not survive. Her father had multiple health issues, including cardiac problems, and almost two years ago. She also reports a history of VT in her family. She is currently working with a dietitian through [employer] to improve her health and manage her weight. She is also undergoing therapy to address the emotional stress and trauma related to her past medical experiences and family health issues. She has a prescription for Ativan 1 mg as needed for anxiety but has been avoiding its use due to concerns about its potential effects on her heart rate. She denies taking Wellbutrin, Lasix, calcium citrate, or Effexor. Patient scheduled for follow up Dr. Garay's first available appointment in [place] on 09/15/2025. 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 Irritable bowel syndrome Morbid obesity (HCC) stated BMI 47.3 BRISEYDA (obstructive sleep apnea) Other chronic nonalcoholic liver disease Personal history of tobacco use, presenting hazards to health 1/2 ppd x 5 years; quit 08/18/14 - restarted and quit in 2019 Pneumonia due to COVID-19 virus 07/2021 Pulmonary embolism (HCC) after PICC line V-tach (HCC) PAST SURGICAL HISTORY Procedure Laterality Date DELIVERY ONLY 2002 , low cervical CHOLECYSTECTOMY 01/08/2008 EGD 04/2021 EGD 02/2021 LAPAROSCOPIC GASTRECTOMY 04/11/2022 LAPAROSCOPIC UTERINE NERVE ABLATION 2011 LIVER BIOPSY 2008 MIDLINE CATHETER 09/21/2018 PAST SURGICAL HISTORY OF 2009 spring coils in fallopian tubes S BALLOON,UTERINE ABLATION [id number] 2009 SHX CARDIAC RADIOFREQUENCY ABLATION 2018 ventricular TONSILLECTOMY PRIMARY/SECONDARY Tonsillectomy, wisdom teeth FAMILY HISTORY Problem Relation Age of Onset Anxiety disorder Mother panic attacks Heart Attack Father 54 Heart disease Father coronary stents other (liver disease) Father alpha 1 antitrypsin; has liver transplant other (atrial fibrillation) Father Thyroid Sister Hashimotos Anxiety disorder Sister other (atrial fibrillation) Paternal Grandmother Heart disease Paternal Grandfather heart transplant other (liver failure) Paternal Grandfather Anxiety disorder Sister other (atrial fibrillation) Paternal Uncle other (atrial fibrillation) Paternal Aunt Social History Tobacco Use Smoking status: Former Current packs/day: 0.00 Average packs/day: 0.5 packs/day for 10.0 years (5.0 ttl pk-yrs) Types: Cigarettes Start date: 2009 Quit date: 2019 Years since qu (more content not included)... [facility] 01-28-2025 Note HNO ID: [id number] Author: EDITH MURRAY MD Service: ? Author Type: Physician Type: Procedures Filed: 02/11/2025 09:33 Note Text: Patient Name: Curly Cowart : 1985 Ordering Provider: Johanny Marmolejo Indication: R00.1 Bradycardia, unspecified Type of Monitor: Extended Monitoring-Zio Patch Enrollment Dates: 02/01/2025-02/04/2025 IRHYTHM FINDINGS: Patient had a min HR of 41 bpm, max HR of 141 bpm, and avg HR of 64 bpm. Predominant underlying rhythm was Sinus Rhythm. Isolated SVEs were rare (<1.0%), SVE Couplets were rare (<1.0%), and no SVE Triplets were present. Isolated VEs were rare (<1.0%), and no VE Couplets or VE Triplets were present. Ventricular Bigeminy was present. Physician comment: Reviewed and agree with technical findings. Edith Murray MD February 11, 2025 9:32 AM [facility] 01-13-2025 Telephone encounter Note Pt called back in. Pt scheduled 01/28/2025 with Caridad Junior [facility] 01-13-2025 Miscellaneous Notes Pt called back in. Pt scheduled 01/28/2025 with Caridad Junior Called pt and left voicemail stating we could get her in sooner if she is willing to come to [place]. Waiting to hear back from pt if she would like to reschedule. Sada Membreno Patient calling to report that she continues to experience bradycardia symptoms (heart rate between 40 and 50). Patient is concerned of low heart rate due to family history and wanted to schedule an appointment with Dr. Garay to further discuss. Patient scheduled for Dr. Garay's first available appointment on 09/15/2025. Patient is requesting to be seen sooner if possible. documented in this encounter [facility] 01-13-2025 Telephone encounter Note Called pt and left voicemail stating we could get her in sooner if she is willing to come to [place]. Waiting to hear back from pt if she would like to reschedule. Sada Membreno [facility] 01-09-2025 Telephone encounter Note Patient calling to report that she continues to experience bradycardia symptoms (heart rate between 40 and 50). Patient is concerned of low heart rate due to family history and wanted to schedule an appointment with Dr. Garay to further discuss. Patient scheduled for Dr. Garay's first available appointment on 09/15/2025. Patient is requesting to be seen sooner if possible. [facility] 11-06-2024 History of Present illness Narrative Subjective Patient ID: Curly Cowart is a 39 y.o. female who presents for Follow-up (C/O LIVER PAIN AND DISCUSS SOMETHING FOR WEIGHT LOSS. C/O TENDONITIS ON/OFF LT FOOT IBUPROFEN IS NOT HELPING ) HPI Labs- done in [place] February 2024 and also Aug/Sep 2023 in [place] Pain Polyarthralgia / stiffness Polyarthralgia and has fam hx of auto-immunes issues. She has been diagnosed with ankylosing spondylitis- she is unsure if this was an official diagnosis given other health issues at the time. She denies diagnosis of fibro but states her dad was diagnosed with this She has questioned lupus as well with auto-immune issues and the flushing of the face. L foot pain/tendonitis Ibuprofen - little relief No known injury Hosp - put her in a boot and was to follow up with us We can try diclofenac cautiously but discussed she needs to follow with pod Weight loss - Not a candidate for adipex with her palp Discussed injections - would like to get updated labs first Med check anxiety - ativan PRN - no longer on effexor pt has tried about everything she believes other than prozac (she believes as far as SSRI and SNRI) she has tried wellbutrin and little relief she denies trying abilify or prozac in the past known depression - hesitant to try new med given freq s.e. with meds synthroid - currently not on meds and most recent labs are WNL - she states she was cleared by the endo at this time HTN /LE edema - HCTZ changed to lasix but has used rarely GERD - stable on PPI - elevated LFT - following with specialists- has been sometime since she has seen them - most recent labs are WNL- she questions if liver is inflamed with some of her symptoms elevated ferritin - has followed with specialists and states no further work up indicated no concern at that time- she believes her ferritin if further elevated post covid which I explained is commonly seen. Level has improved since bariatric Surgery - most recent labs are WNL post op Bariatric status - Apr 11 2022 - AAT carrier Preventative Testing mammo - suggest age 40 - ordered DEXA - suggest age 50-55 colonoscopy - suggest age 45-50 PAP Fall - NEG OCTOBER 2024 PHQ2 - NEG OCTOBER 2024 known depression and exacerbated OARRS: Vargas Mujica PA-C on 11/06/2024 3:40 PM I have personally reviewed the OARRS report for Curly Cowart. I have considered the risks of abuse, dependence, addiction and diversion and I believe that it is clinically appropriate for Curly Cowart to be prescribed this medication Is the patient prescribed a combination of a benzodiazepine and opioid? No Last Urine Drug Screen / ordered today: No Recent Results (from the past 8760 hours) Screen Opiate/Opioid/Benzo Prescription Compliance Collection Time: 02/28/24 2:52 PM Result Value Ref Range Creatinine, Urine Random 42.8 20.0 - 320.0 mg/dL Amphetamine Screen, Urine Presumptive Negative Presumptive Negative Barbiturate Screen, Urine Presumptive Negative Presumptive Negative Cannabinoid Screen, Urine Presumptive Negative Presumptive Negative Cocaine Metabolite Screen, Urine Presumptive Negative Presumptive Negative PCP Screen, Urine Presumptive Negative Presumptive Negative Confirmation Opiate/Opioid/Benzo Prescription Compliance Collection Time: 02/28/24 2:51 PM Result Value Ref Range Clonazepam <25 <25 ng/mL 7-Aminoclonazepam <25 <25 ng/mL Alprazolam <25 <25 ng/mL Alpha-Hydroxyalprazolam <25 <25 ng/mL Midazolam <25 <25 ng/mL Alpha-Hydroxymidazolam <25 <25 ng/mL Chlordiazepoxide <25 <25 ng/mL Diazepam <25 <25 ng/mL Nordiazepam <25 <25 ng/mL Temazepam <25 <25 ng/mL Oxazepam <25 <25 ng/mL Lorazepam 114 (H) <25 ng/mL Methadone <25 <25 ng/mL EDDP <25 <25 ng/mL 6-Acetylmorphine <25 <25 ng/mL Codeine <50 <50 ng/mL Hydrocodone <25 <25 ng/mL Hydromorphone <25 <25 ng/mL Morphine <50 <50 ng/mL Norhydrocodone <25 <25 ng/mL Noroxycodone <25 <25 ng/mL Oxycodone <25 <25 ng/mL Oxymorphone <25 <25 ng/mL Fentanyl <2.5 <2.5 ng/mL Norfentanyl <2.5 <2.5 ng/mL Tramadol <50 <50 ng/mL O-Desmethyltramadol <50 <50 ng/mL Zolpidem <25 <25 ng/mL Zolpidem Metabolite (ZCA) <25 <25 ng/mL Results are as expected. Controlled Substance Agreement: Date of the Last Agreement: 02/28/2024 Reviewed Controlled Substance Agreement including but not limited to the benefits, risks, and alternatives to treatment with a Controlled Substance medication(s). Patient Active Problem List Diagnosis AAT (gvqyf-2-kjcyelbigvn) deficiency (Multi) Abnormal EKG Bilateral hand numbness Chronic low back pain Drug-induced constipation Vitamin D deficiency Depression, major, single episode, moderate (Multi) Elevated ferritin level Elevated LFTs Fatigue Fatty liver disease, nonalcoholic GERD (gastroesophageal reflux disease) Glucose intolerance (impaired glucose tolerance) Shahzad's disease Hepatomegaly High serum fibrinogen History of pulmonary embolism Dilated renal pelvis Hydronephrosis Insomnia secondary to depression with anxiety Iron deficiency anemia Lightheadedness Low back pain with right-sided sciatica Lower extremity edema Lumbar herniated disc Mild mental slowing Class 3 severe obesity due to excess calories with serious comorbidity and body mass index (BMI) of 50.0 to 59.9 in adult BRISEYDA on CPAP Palpitations Generalized anxiety disorder PTSD (post-traumatic stress disorder) Sacroiliitis ([facility]) H/O cardiac radiofrequency ablation 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 Negative for chills and fever. HENT: Negative for congestion, rhinorrhea, sinus pain, sore throat and tinnitus. Eyes: Negative for discharge, redness and visual disturbance. Respiratory: Negative for cough, chest tightness, shortness of breath and wheezing. Cardiovascular: Negative for chest pain, palpitations and leg swelling. Gastrointestinal: Negative for abdominal pain, constipation, diarrhea, nausea and vomiting. Endocrine: Negative for cold intolerance and heat intolerance. Genitourinary: Negative for flank pain, frequency and urgency. Musculoskeletal: Positive for arthralgias and myalgias. Negative for back pain, gait problem and neck pain. Skin: Negative for rash and wound. Neurological: Negative for dizziness, tremors, syncope, numbness and headaches. Hematological: Does not bruise/bleed easily. Psychiatric/Behavioral: Positive for dysphoric mood. Negative for confusion, sleep disturbance and suicidal ideas. The patient is nervous/anxious. Past Medical History: Diagnosis Date Abdominal distension (gaseous) Abdominal bloating Abnormal results of thyroid function studies Abnormal thyroid function test Abnormal weight gain Weight gain Breast cancer screening 03/29/2024 CAT 0- US ORDERED Dyspnea, unspecified Dyspnea Headache 02/28/2024 Immunization not carried out because of patient refusal Influenza vaccination declined Palpitations Palpitations Personal history of other diseases of the circulatory system History of hypotension Personal history of other endocrine, nutritional and metabolic disease History of Shahzad thyroiditis Personal history of other mental and behavioral disorders History of anxiety disorder Personal history of other specified conditions History of dizziness Post-traumatic stress disorder, unspecified Post traumatic stress disorder (PTSD) Past Surgical History: Procedure Laterality Date SECTION, CLASSIC 12/02/2016 Section CHOLECYSTECTOMY 12/02/2016 Cholecystectomy ESOPHAGOGASTRODUODENOSCOPY 12/02/2016 Diagnostic Esophagogastroduodenoscopy GASTRIC BYPASS 04/11/2022 LIVER BIOPSY OTHER SURGICAL HISTORY 10/03/2019 Heart surgery TONSILLECTOMY 12/02/2016 Tonsillectomy TUBAL LIGATION 12/02/2016 Tubal Ligation Family History Problem Relation Name Age of Onset No Known Problems Mother Heart attack Father Hyperlipidemia Father Hypertension Father Diabetes Other GRANDPARENT Thyroid disease Other AUNT Social History Tobacco Use Smoking status: Former Types: Cigarettes Smokeless tobacco: Never Vaping Use Vaping status: Never Used Substance Use Topics Alcohol use: Not Currently Drug use: Never Allergies Allergen Reactions Citalopram Other Meclizine Other Morphine Other Nadolol Other Penicillin V Hives Bupropion Hcl Rash Hydrocodone-Acetaminophen Itching and Rash Current Outpatient Medications Medication Sig Dispense Refill aspirin 81 mg chewable tablet Chew 1 tablet (81 mg) once daily. LORazepam (Ativan) 1 mg tablet Take 1 tablet (1 mg) by mouth 3 times a day as needed for anxiety. 60 tablet 0 multivitamin-children's (Flintstones Complete, iron,) chewable tablet Chew 2 tablets once daily. pantoprazole (ProtoNix) 40 mg EC tablet Take 1 tablet (40 mg) by mouth once daily. 90 tablet 3 albuterol 90 mcg/actuation inhaler INHALE 1 TO 2 PUFFS EVERY 6 HOURS NEEDED (Patient not taking: Reported on 09/25/2023) 18 g 1 biotin 10 mg tablet Take 1 tablet (10 mg) by mouth once daily. (Patient not taking: Reported on 11/06/2024) buPROPion SR (Wellbutrin SR) 150 mg 12 hr tablet Do not crush, chew, or split. Take 1 tab po daily x 1-2 weeks then inc to 1 tab po bid (Patient not taking: Reported on 11/06/2024) 60 tablet 5 calcium carb/vitamin D3/vit K1 (SOFT CHEWS CALCIUM ORAL) Take by mouth early in the morning.. (Patient not taking: Reported on 11/06/2024) cyclobenzaprine (Flexeril) 10 mg tablet Take 1 tablet (10 mg) by mouth 2 times a day as needed for muscle spasms. (Patient not taking: Reported on 11/06/2024) 60 tablet 0 ergocalciferol, vitamin D2, (VITAMIN D2 ORAL) Take by mouth early in the morning.. (Patient not taking: Reported on 11/06/2024) furosemide (Lasix) 20 mg tablet TAKE 1 TABLET BY MOUTH EVERY DAY FOR 7 DAYS THEN NEEDED FOR EDEMA (Patient not taking: Reported on 11/06/2024) 30 tablet 5 Lactobacillus acidophilus (PROBIOTIC ACIDOPHILUS ORAL) Take 1 tablet by mouth once daily. (Patient not taking: Reported on 11/06/2024) magnesium 30 mg tablet Take 1 tablet (30 mg) by mouth 2 times a day. (Patient not taking: Reported on 11/06/2024) omeprazole OTC (PriLOSEC OTC) 20 mg EC tablet Take 1 tablet (20 mg) by mouth once daily in the morning. Take before meals. Do not crush, chew, or split. (Patient not taking: Reported on 11/06/2024) venlafaxine (Effexor) 75 mg tablet Take 1 tablet (75 mg) by mouth every other day. (Patient not taking: Reported on 11/06/2024) venlafaxine XR (Effexor-XR) 75 mg 24 hr capsule Take 1 capsule (75 mg) by mouth 2 times a day. (Patient not taking: Reported on 11/06/2024) 180 capsule 3 No current facility-administered medications for this visit. Objective BP 142/88 Pulse 91 Ht 1.702 m (5' 7) Wt (!) 160 kg (352 lb 12.8 oz) BMI 55.26 kg/m Physical Exam Vitals reviewed. Constitutional: Appearance: Normal appearance. She is obese. HENT: Head: Normocephalic. Right Ear: External ear normal. Left Ear: External ear normal. Nose: Nose normal. No congestion or rhinorrhea. Mouth/Throat: Mouth: Mucous membranes are moist. Eyes: Extraocular Movements: Extraocular movements intact. Conjunctiva/sclera: Conjunctivae normal. Pupils: Pupils are equal, round, and reactive to light. Cardiovascular: Rate and Rhythm: Normal rate and regular rhythm. Pulses: Normal pulses. Pulmonary: Effort: Pulmonary effort is normal. Breath sounds: Normal breath sounds. Abdominal: General: Bowel sounds are normal. Palpations: Abdomen is soft. Tenderness: There is no abdominal tenderness. There is no right CVA tenderness or left CVA tenderness. Musculoskeletal: General: Tenderness present. Normal range of motion. Cervical back: Normal range of motion and neck supple. Skin: General: Skin is warm and dry. Neurological: General: No focal deficit present. Mental Status: She is alert and oriented to person, place, and time. Psychiatric: Mood and Affect: Mood normal. Behavior: Behavior normal. Testing Reviewed labs from jun Reviewed labs from Aug 2023 Reviewed labs from [place] Impression MDM 1) COMPLEXITY: 1 UNDIAGNOSED NEW PROBLEM WITH UNCERTAIN PROGNOSIS 2)DATA: TESTS INTERPRETED AND OR ORDERED, TOOK INDEPENDENT HISTORY OR RECORDS REVIEWED 3)RISK: MODERATE RISK DUE TO NATURE OF MEDICAL CONDITIONS/COMORBIDITY OR MEDICATIONS ORDERED OR SURGICAL OR PROCEDURE REFERRAL, . Reviewed labs and Testing on file Patient to follow diet low in cholesterol, fat, and sodium. Patient is advised to increase Exercise. Patient is recommended to lose weight. Reviewed Meds and discussed common side effects Continue as directed Patient is strongly advised to be compliant with recommendations. Return to Clinic sooner if needed. Patient denies further questions/concerns at this time Assessment/Plan Problem List Items Addressed This Visit ICD-10-CM AAT (lpycu-8-abytperflys) deficiency (Multi) E88.01 Vitamin D deficiency E55.9 Relevant Orders Vitamin D 25-Hydroxy,Total (for eval of Vitamin D levels) Depression, major, single episode, moderate (Multi) F32.1 Elevated ferritin level R79.89 Relevant Orders Iron and TIBC Ferritin Fatty liver disease, nonalcoholic K76.0 GERD (gastroesophageal reflux disease) K21.9 Relevant Medications pantoprazole (ProtoNix) 40 mg EC tablet Glucose intolerance (impaired glucose tolerance) R73.02 Relevant Orders CBC and Auto Differential Comprehensive Metabolic Panel Lipid Panel Shahzad's disease E06.3 Relevant Orders Lipid Panel Thyroid Stimulating Hormone Thyroxine, Free Class 3 severe obesity due to excess calories with serious comorbidity and body mass index (BMI) of 50.0 to 59.9 in adult E66.813, Z68.43, E66.01 Generalized anxiety disorder F41.1 Other Visit Diagnoses Codes Acute foot pain, left - Primary M79.672 Relevant Medications diclofenac (Cataflam) 50 mg tablet Anxiety F41.9 Relevant Medications LORazepam (Ativan) 1 mg tablet Medication management Z79.899 Relevant Orders Opiate/Opioid/Benzo Prescription Compliance Bariatric surgery status Z98.84 Relevant Orders Magnesium Vitamin B12 Encounter for dietary counseling and surveillance Z71.3 FU in 2-6 weeks with labs at [place] fasting and med check / wt check Call to start wegovy pending labs if she wishes and insurance/cost documented in this encounter [facility] Work Phone: 07-11-2024 History of Present illness Narrative Subjective Patient ID: Curly Cowart is a 39 y.o. female who presents for Follow-up (C/O B/L ARM NUMBNESS AND TINGLING X 2 MONTHS. C/O STIFFNESS IN ALL HER JOINTS. C/O FACIAL FLUSHING OFF/ON. REQUESTING REFILL ATIVAN. ) HPI Labs- done in [place] February 2024 Pain Polyarthralgia / stiffness Polyarthralgia and has fam hx of auto-immunes issues. She has been diagnosed with ankylosing spondylitis- she is unsure if this was an official diagnosis given other health issues at the time. 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 Denies work up for her spine but admits to chronic back pain throughout She denies diagnosis of fibro but states her dad was diagnosed with this She has questioned lupus as well with auto-immune issues and the flushing of the face. Does not believe this to be cardio caused - BP is approp. Does not believe this to be anxiety - she does have chronic anxiety and will try ativan when flared to see if this helps. Consider angel-menopausal Med check anxiety - ativan PRN -/ effexor pt has tried about everything she believes other than prozac (she believes as far as SSRI and SNRI) she has tried wellbutrin and little relief she denies trying abilify or prozac in the past known depression - hesitant to try new med given freq s.e. with meds synthroid - currently not on meds and most recent labs are WNL - she states she was cleared by the endo at this time HTN /LE edema - HCTZ changed to lasix and is needing it on occasion - typically daily at this time GERD - stable on PPI - elevated LFT - following with specialists- has been sometime since she has seen them - most recent labs are WNL elevated ferritin - has followed with specialists and states no further work up indicated no concern at that time- she believes her ferritin if further elevated post covid which I explained is commonly seen. Level has improved since bariatric Surgery - most recent labs are WNL post op Bariatric status - Apr 11 2022 - AAT carrier Preventative Testing mammo - suggest age 40 - ordered DEXA - suggest age 50-55 colonoscopy - suggest age 45-50 PAP Fall - NEG February 2024 PHQ9 score of 15 March 2024 - known depression and exacerbated OARRS: Vargas Mujica PA-C on 07/11/2024 9:11 AM I have personally reviewed the OARRS report for Curly Cowart. I have considered the risks of abuse, dependence, addiction and diversion and I believe that it is clinically appropriate for Curly Cowart to be prescribed this medication Is the patient prescribed a combination of a benzodiazepine and opioid? No Last Urine Drug Screen / ordered today: No Recent Results (from the past 8760 hours) Screen Opiate/Opioid/Benzo Prescription Compliance Collection Time: 02/28/24 2:52 PM Result Value Ref Range Creatinine, Urine Random 42.8 20.0 - 320.0 mg/dL Amphetamine Screen, Urine Presumptive Negative Presumptive Negative Barbiturate Screen, Urine Presumptive Negative Presumptive Negative Cannabinoid Screen, Urine Presumptive Negative Presumptive Negative Cocaine Metabolite Screen, Urine Presumptive Negative Presumptive Negative PCP Screen, Urine Presumptive Negative Presumptive Negative Confirmation Opiate/Opioid/Benzo Prescription Compliance Collection Time: 02/28/24 2:51 PM Result Value Ref Range Clonazepam <25 <25 ng/mL 7-Aminoclonazepam <25 <25 ng/mL Alprazolam <25 <25 ng/mL Alpha-Hydroxyalprazolam <25 <25 ng/mL Midazolam <25 <25 ng/mL Alpha-Hydroxymidazolam <25 <25 ng/mL Chlordiazepoxide <25 <25 ng/mL Diazepam <25 <25 ng/mL Nordiazepam <25 <25 ng/mL Temazepam <25 <25 ng/mL Oxazepam <25 <25 ng/mL Lorazepam 114 (H) <25 ng/mL Methadone <25 <25 ng/mL EDDP <25 <25 ng/mL 6-Acetylmorphine <25 <25 ng/mL Codeine <50 <50 ng/mL Hydrocodone <25 <25 ng/mL Hydromorphone <25 <25 ng/mL Morphine <50 <50 ng/mL Norhydrocodone <25 <25 ng/mL Noroxycodone <25 <25 ng/mL Oxycodone <25 <25 ng/mL Oxymorphone <25 <25 ng/mL Fentanyl <2.5 <2.5 ng/mL Norfentanyl <2.5 <2.5 ng/mL Tramadol <50 <50 ng/mL O-Desmethyltramadol <50 <50 ng/mL Zolpidem <25 <25 ng/mL Zolpidem Metabolite (ZCA) <25 <25 ng/mL Results are as expected. Controlled Substance Agreement: Date of the Last Agreement: 02/28/2024 Reviewed Controlled Substance Agreement including but not limited to the benefits, risks, and alternatives to treatment with a Controlled Substance medication(s). Patient Active Problem List Diagnosis AAT ([id number]) deficiency (Multi) Abnormal EKG Bilateral hand numbness Chronic low back pain Drug-induced constipation Vitamin D deficiency Depression, major, single episode, moderate (Multi) Elevated ferritin level Elevated LFTs Fatigue Fatty liver disease, nonalcoholic GERD (gastroesophageal reflux disease) Glucose intolerance (impaired glucose tolerance) Shahzad's disease Hepatomegaly High serum fibrinogen History of pulmonary embolism Dilated renal pelvis Hydronephrosis Insomnia secondary to depression with anxiety Iron deficiency anemia Lightheadedness Low back pain with right-sided sciatica Lower extremity edema Lumbar herniated disc Mild mental slowing Class 3 severe obesity due to excess calories with serious comorbidity and body mass index (BMI) of 50.0 to 59.9 in adult BRISEYDA on CPAP Palpitations Generalized anxiety disorder PTSD (post-traumatic stress disorder) Sacroiliitis (CMS-HCC) H/O cardiac radiofrequency ablation 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 Negative for chills and fever. HENT: Negative for congestion, rhinorrhea, sinus pain, sore throat and tinnitus. Eyes: Negative for discharge, redness and visual disturbance. Respiratory: Negative for cough, chest tightness, shortness of breath and wheezing. Cardiovascular: Negative for chest pain, palpitations and leg swelling. Gastrointestinal: Negative for abdominal pain, constipation, diarrhea, nausea and vomiting. Endocrine: Negative for cold intolerance and heat intolerance. Genitourinary: Negative for flank pain, frequency and urgency. Musculoskeletal: Positive for arthralgias, back pain and myalgias. Negative for gait problem and neck pain. Skin: Negative for rash and wound. Neurological: Positive for numbness. Negative for dizziness, tremors, syncope and headaches. Hematological: Does not bruise/bleed easily. Psychiatric/Behavioral: Positive for decreased concentration and dysphoric mood. Negative for confusion, sleep disturbance and suicidal ideas. The patient is nervous/anxious. Past Medical History: Diagnosis Date Abdominal distension (gaseous) Abdominal bloating Abnormal results of thyroid function studies Abnormal thyroid function test Abnormal weight gain Weight gain Breast cancer screening 03/29/2024 CAT 0- US ORDERED Dyspnea, unspecified Dyspnea Headache 02/28/2024 Immunization not carried out because of patient refusal Influenza vaccination declined Palpitations Palpitations Personal history of other diseases of the circulatory system History of hypotension Personal history of other endocrine, nutritional and metabolic disease History of Shahzad thyroiditis Personal history of other mental and behavioral disorders History of anxiety disorder Personal history of other specified conditions History of dizziness Post-traumatic stress disorder, unspecified Post traumatic stress disorder (PTSD) Past Surgical History: Procedure Laterality Date SECTION, CLASSIC 12/02/2016 Section CHOLECYSTECTOMY 12/02/2016 Cholecystectomy ESOPHAGOGASTRODUODENOSCOPY 12/02/2016 Diagnostic Esophagogastroduodenoscopy GASTRIC BYPASS 04/11/2022 LIVER BIOPSY OTHER SURGICAL HISTORY 10/03/2019 Heart surgery TONSILLECTOMY 12/02/2016 Tonsillectomy TUBAL LIGATION 12/02/2016 Tubal Ligation Family History Problem Relation Name Age of Onset No Known Problems Mother Heart attack Father Hyperlipidemia Father Hypertension Father Diabetes Other GRANDPARENT Thyroid disease Other AUNT Social History Tobacco Use Smoking status: Former Types: Cigarettes Smokeless tobacco: Never Vaping Use Vaping status: Never Used Substance Use Topics Alcohol use: Not Currently Drug use: Never Allergies Allergen Reactions Citalopram Other Meclizine Other Morphine Other Nadolol Other Penicillin V Hives Bupropion Hcl Rash Hydrocodone-Acetaminophen Itching and Rash Current Outpatient Medications Medication Sig Dispense Refill aspirin 81 mg chewable tablet Chew 1 tablet (81 mg) once daily. biotin 10 mg tablet Take 1 tablet (10 mg) by mouth once daily. calcium carb/vitamin D3/vit K1 (SOFT CHEWS CALCIUM ORAL) Take by mouth early in the morning.. ergocalciferol, vitamin D2, (VITAMIN D2 ORAL) Take by mouth early in the morning.. Lactobacillus acidophilus (PROBIOTIC ACIDOPHILUS ORAL) Take 1 tablet by mouth once daily. LORazepam (Ativan) 1 mg tablet Take 1 tablet (1 mg) by mouth 3 times a day as needed for anxiety. 60 tablet 0 magnesium 30 mg tablet Take 1 tablet (30 mg) by mouth 2 times a day. multivitamin-children's (Flintstones Complete, iron,) chewable tablet Chew 2 tablets once daily. pantoprazole (ProtoNix) 40 mg EC tablet Take 1 tablet (40 mg) by mouth once daily. 90 tablet 3 albuterol 90 mcg/actuation inhaler INHALE 1 TO 2 PUFFS EVERY 6 HOURS NEEDED (Patient not taking: Reported on 07/11/2024) 18 g 1 buPROPion SR (Wellbutrin SR) 150 mg 12 hr tablet Do not crush, chew, or split. Take 1 tab po daily x 1-2 weeks then inc to 1 tab po bid (Patient not taking: Reported on 07/11/2024) 60 tablet 5 cyclobenzaprine (Flexeril) 10 mg tablet Take 1 tablet (10 mg) by mouth 2 times a day as needed for muscle spasms. (Patient not taking: Reported on 07/11/2024) 60 tablet 0 furosemide (Lasix) 20 mg tablet TAKE 1 TABLET BY MOUTH EVERY DAY FOR 7 DAYS THEN NEEDED FOR EDEMA (Patient not taking: Reported on 07/11/2024) 30 tablet 5 omeprazole OTC (PriLOSEC OTC) 20 mg EC tablet Take 1 tablet (20 mg) by mouth once daily in the morning. Take before meals. Do not crush, chew, or split. (Patient not taking: Reported on 07/11/2024) venlafaxine (Effexor) 75 mg tablet Take 1 tablet (75 mg) by mouth every other day. (Patient not taking: Reported on 07/11/2024) venlafaxine XR (Effexor-XR) 75 mg 24 hr capsule Take 1 capsule (75 mg) by mouth 2 times a day. (Patient not taking: Reported on 07/11/2024) 180 capsule 3 No current facility-administered medications for this visit. Objective BP 129/85 Pulse 79 Ht 1.702 m (5' 7) Wt (!) 155 kg (341 lb) BMI 53.41 kg/m Physical Exam Vitals reviewed. Constitutional: Appearance: Normal appearance. She is obese. HENT: Head: Normocephalic. Right Ear: External ear normal. Left Ear: External ear normal. Nose: Nose normal. No congestion or rhinorrhea. Mouth/Throat: Mouth: Mucous membranes are moist. Eyes: Extraocular Movements: Extraocular movements intact. Conjunctiva/sclera: Conjunctivae normal. Pupils: Pupils are equal, round, and reactive to light. Cardiovascular: Rate and Rhythm: Normal rate and regular rhythm. Pulses: Normal pulses. Pulmonary: Effort: Pulmonary effort is normal. Breath sounds: Normal breath sounds. Abdominal: General: Bowel sounds are normal. Palpations: Abdomen is soft. Tenderness: There is no abdominal tenderness. There is no right CVA tenderness or left CVA tenderness. Musculoskeletal: General: Tenderness present. Normal range of motion. Cervical back: Normal range of motion and neck supple. Tenderness present. Skin: General: Skin is warm and dry. Neurological: General: No focal deficit present. Mental Status: She is alert and oriented to person, place, and time. Psychiatric: Mood and Affect: Mood normal. Behavior: Behavior normal. Testing Reviewed labs from [facility] were Wnl Thyroid WNL Glucose - approp Impression MDM 1) COMPLEXITY: 1 UNDIAGNOSED NEW PROBLEM WITH UNCERTAIN PROGNOSIS 2)DATA: TESTS INTERPRETED AND OR ORDERED, TOOK INDEPENDENT HISTORY OR RECORDS REVIEWED 3)RISK: MODERATE RISK DUE TO NATURE OF MEDICAL CONDITIONS/COMORBIDITY OR MEDICATIONS ORDERED OR SURGICAL OR PROCEDURE REFERRAL, . Reviewed labs and Testing on file Patient to follow diet low in cholesterol, fat, and sodium. Patient is advised to increase Exercise. Patient is recommended to lose weight. Reviewed Meds and discussed common side effects Continue as directed Suspect symptoms from the neck - start NSAID x 1 week, muscle relaxer, xray and therapy. Consider fibromyalgia as well Patient is strongly advised to be compliant with recommendations. Return to Clinic sooner if needed. Patient denies further questions/concerns at this time Assessment/Plan Problem List Items Addressed This Visit ICD-10-CM Chronic low back pain M54.50, G89.29 Relevant Medications ibuprofen 600 mg tablet cyclobenzaprine (Flexeril) 10 mg tablet Other Relevant Orders XR lumbar spine 2-3 views Referral to Physical Therapy Vitamin D deficiency E55.9 Relevant Orders Vitamin D 25-Hydroxy,Total (for eval of Vitamin D levels) Fatty liver disease, nonalcoholic K76.0 Relevant Orders Comprehensive Metabolic Panel Lipid Panel Iron and TIBC Ferritin Class 3 severe obesity due to excess calories with serious comorbidity and body mass index (BMI) of 50.0 to 59.9 in adult E66.813, Z68.43, E66.01 Relevant Orders Lipid Panel 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.3 Relevant Orders Lipid Panel Thyroid Stimulating Hormone Thyroxine, Free Polyarthralgia M25.50 Relevant Medications cyclobenzaprine (Flexeril) 10 mg tablet Other Relevant Orders CBC and Auto Differential Magnesium Anti-DNA Antibody, Double-Stranded CBC and Auto Differential (Completed) Citrulline Antibody, IgG C-Reactive Protein (Completed) Rheumatoid Factor (Completed) Sedimentation Rate (Completed) FERNANDO + SHAHRIAR Panel Other Visit Diagnoses Codes Cervicalgia - Primary M54.2 Relevant Medications ibuprofen 600 mg tablet Other Relevant Orders XR cervical spine 2-3 views Referral to Physical Therapy Anxiety F41.9 Relevant Medications LORazepam (Ativan) 1 mg tablet Other Relevant Orders Opiate/Opioid/Benzo Prescription Compliance Bariatric surgery status Z98.84 Relevant Orders Vitamin B12 Medication management Z79.899 Relevant Orders Opiate/Opioid/Benzo Prescription Compliance FU in 1-2 mo with pain check / auto-immune labs PT - [facility], bilat UE FU in 6-7 mo with labs at [facility] and med check documented in this encounter [facility] Work Phone: 07-11-2024 Reason for visit Narrative Specialty Diagnoses / Procedures Referred By Donna t Referred To Contact Radiology Diagnoses Cervicalgia Procedures XR cervical spine 2-3 views Vargas Mujica PA-C [address] [place] [address] Phone: tel: fax: Referral ID Status Reason Start Date Expiration Date Visits Requested Visits Authorized [id number] Authorized Perform Procedure 4 07/11/2025 1 1 [facility] Work Phone: 1(804) 264-433310-11-2024 History of Present illness Narrative* Leslie Goldman, RT(R) - 06/07/2024 4:30 PM EDT Radiology Service Progress Note PATIENT NAME: Curly Cowart DATE OF SERVICE: June 07, 2024 TIME: 4:21 PM PATIENT IDENTITY VERIFICATION COMPLETED USING TWO (2) IDENTIFIERS: Name and Date of confirmedby patient verbally. FALL SCREENING: Has the patient had 2 falls in the last year or 1 fall with injury or currently using an Ambulatory Assistive Device (Walker, Cane, Wheelchair, Crutches, etc.)? No PATIENT GENDER DATA: Female. status: : No status: NO. PATIENT RELEVANT IMPLANT DATA REVIEWED: Yes PATIENT PRESENTS WITH AN IMPLANTABLE OR ATTACHED ROCKET MOTOR MECHANIC: No RADIOLOGY DEPARTMENT: General X-ray: Exam(s) Completed: Lower Extremity X- Ray(s): Foot, Left PERIPHERAL IV DATA: Not applicable SIGNED BY: RT Regine(Duncan) June 07, 2024 4:21 PM [facility] NoteHNO ID: [id number] Author: LESLIE GOLDMAN RT(R) Service: Radiology Author Type: Technologist Type: Progress Notes Filed: 06/07/2024 16:28 Note Text: Radiology Service Progress Note PATIENT NAME: Curly Cowart DATE OF SERVICE: June 07, 2024 TIME: 4:21 PM PATIENT IDENTITY VERIFICATION COMPLETED USING TWO (2) IDENTIFIERS: Name and Date of confirmed by patient verbally. FALL SCREENING: Has the patient had 2 falls in the last year or 1 fall with injury or currently using an Ambulatory Assistive Device (Walker, Cane, Wheelchair, Crutches, etc.)? No PATIENT GENDER DATA: Female. status: : No status: NO. PATIENT RELEVANT IMPLANT DATA REVIEWED: Yes PATIENT PRESENTS WITH AN IMPLANTABLE OR ATTACHED ROCKET MOTOR MECHANIC: No RADIOLOGY DEPARTMENT: General X-ray: Exam(s) Completed: Lower Extremity X-Ray(s): Foot, Left PERIPHERAL IV DATA: Not applicable SIGNED BY: RT Regine(Duncan) June 07, 2024 4:21 [facility]10-11-2024 NoteHNO ID: [id number] Author: CHLOÉ TIPTON APRN.HOT WORKER Service: ? Author Type: Nurse Practitioner Type: Progress Notes Filed: 06/07/2024 16:54 Note Text: Patient presents with: Foot Trauma: LEFT foot AND lower leg x 3 days 3 days ago in the evening she dropped a table on her left foot. She was taking down a table and she dropped the table on her left lateral calf and left foot Area is black and blue. Foot is painful and when walking is applying more pressure to the inside of foot Is unable to wear compression socks due to pain in foot and calf The history is provided by the patient. Foot Trauma Review of Systems See above Physical Exam Vitals reviewed. Constitutional: Appearance: Normal appearance. HENT: Head: Normocephalic. Eyes: Extraocular Movements: Extraocular movements intact. Cardiovascular: Rate and Rhythm: Normal rate. Pulmonary: Effort: Pulmonary effort is normal. No respiratory distress. Musculoskeletal: Feet: Feet: Comments: Tenderness and swelling. Minimal bruising. Skin: Neurological: Mental Status: She is alert. ASSESSMENT/PLAN: 1. Foot pain, left - ICD9: 729.5, ICD10: M79.672 (primary diagnosis) - XR FOOT GENERAL 3V AP/LAT/OBL LEFT 2. Injury of left foot, initial encounter - ICD9: 959.7, ICD10: S99.922A - XR FOOT GENERAL 3V AP/LAT/OBL LEFT - XR per radiologist review shows no acute radiographic abnormality - Encouraged supportive care with tylenol, ibuprofen and ice - If no improvement in the next 1 week follow up or sooner if symptoms worsen - She verbalized understanding and agreement with this plan. Chloé Tipton APRN.[facility] History of Present illness Narrative* Chloé Tipton APRN.HOT WORKER - 06/07/2024 4:14 PM EDT Images from the original note were not included. Patient presents with: Foot Trauma: LEFT foot & lower leg x 3 days 3 days ago in the evening she dropped a table on her left foot. She was taking down a table and shedropped the table on her left lateral calf and left foot Area is black and blue. Foot is painful and when walking is applying more pressure to the inside of foot Is unable to wear compression socks due to pain in foot and calf The history is provided by the patient. Foot Trauma Review of Systems See above Physical Exam Vitals reviewed. Constitutional: Appearance: Normal appearance. HENT: Head: Normocephalic. Eyes: Extraocular Movements: Extraocular movements intact. Cardiovascular: Rate and Rhythm: Normal rate. Pulmonary: Effort: Pulmonary effort is normal. No respiratory distress. Musculoskeletal: Feet: Feet: Comments: Tenderness and swelling. Minimal bruising. Skin: Neurological: Mental Status: She is alert. ASSESSMENT/PLAN: 1. Foot pain, left - ICD9: 729.5, ICD10: M79.672 (primary diagnosis) - XR FOOT GENERAL 3V AP/LAT/OBL LEFT 2. Injury of left foot, initial encounter - ICD9: 959.7, ICD10: S99.922A - XR FOOT GENERAL 3V AP/LAT/OBL LEFT - XR per radiologist review shows no acute radiographic abnormality - Encouraged supportive care with tylenol, ibuprofen and ice - If no improvement in the next 1 week follow up or sooner if symptoms worsen - She verbalized understanding and agreement with this plan. Chloé Tipton APRN.HOT WORKER [facility] History of Present illness Narrative* Trung Moreno RT(R) - 04/24/2024 3:40 PM EDT Radiology Service Progress Note PATIENT NAME: Curly Cowart DATE OF SERVICE: April 24, 2024 TIME: 4:06 PM PATIENT IDENTITY VERIFICATION COMPLETED USING TWO (2) IDENTIFIERS: Name and Date of confirmedby patient verbally. FALL SCREENING: Has the patient had 2 falls in the last year or 1 fall with injury or currently using an Ambulatory Assistive Device (Walker, Cane, Wheelchair, Crutches, etc.)? No PATIENT GENDER DATA: Female. status: : No status: NO. PATIENT RELEVANT IMPLANT DATA REVIEWED: Yes PATIENT PRESENTS WITH AN IMPLANTABLE OR ATTACHED ROCKET MOTOR MECHANIC: No RADIOLOGY DEPARTMENT: General X-ray: Exam(s) Completed: Chest X-Ray PERIPHERAL IV DATA: Not applicable SIGNED BY: RT Tonny(R) April 24, 2024 4:06 PM [facility]24 NoteHNO ID: [id number] Author: TRUNG MORENO RT(R) Service: ? Author Type: Supervisor Telephone Information Type: Progress Notes Filed: 04/24/2024 16:13 Note Text: Radiology Service Progress Note PATIENT NAME: Curly Cowart DATE OF SERVICE: April 24, 2024 TIME: 4:06 PM PATIENT IDENTITY VERIFICATION COMPLETED USING TWO (2) IDENTIFIERS: Name and Date of confirmed by patient verbally. FALL SCREENING: Has the patient had 2 falls in the last year or 1 fall with injury or currently using an Ambulatory Assistive Device (Walker, Cane, Wheelchair, Crutches, etc.)? No PATIENT GENDER DATA: Female. status: : No status: NO. PATIENT RELEVANT IMPLANT DATA REVIEWED: Yes PATIENT PRESENTS WITH AN IMPLANTABLE OR ATTACHED ROCKET MOTOR MECHANIC: No RADIOLOGY DEPARTMENT: General X-ray: Exam(s) Completed: Chest X-Ray PERIPHERAL IV DATA: Not applicable SIGNED BY: RT Tonny(Duncan) April 24, 2024 4:06 [facility]08-28-[facility]24 NoteHNO ID: [id number] Author: DELFIN JAIN APRN.SWATI Service: ? Author Type: Nurse Practitioner Type: Progress Notes Filed: 04/24/2024 16:31 Note Text: CC: Patient presents with: Sinus Problem: Congestion, cough, sore throat, MCKINNEY x 3 days HPI: Curly Cowart is a 38 year old female who presents to the office with complaint of chest congestion, head congestion, cough, nonproductive, and sore throat for a few days. Symptoms are staying the same. Associated symptoms includes headache. Denies nausea, vomiting , and diarrhea. Treatments tried include nothing so far. with no relief of symptoms. Sick contacts: unknown. History of asthma, frequent episodes of bronchitis, chronic bronchitis, bronchiectasis or COPD: No Smoker: No Seasonal/environmental allergies: No The ROS is otherwise negative. The patient's pmh, medications, allergies, and past visits are reviewed. PHYSICAL EXAM: BP 132/86 Pulse 88 Temp 36.9 ?C (98.5 ?F) Resp 20 Wt (!) 148.3 kg (326 lb 15.1 oz) LMP 07/11/2016 SpO2 98% BMI 52.77 kg/m? General appearance: alert, cooperative, pleasant, in no acute distress Head: Normocephalic Eyes: EOM's intact, conjunctiva pink and moist, no icterus, sclera white, non-injected Ears: Right ear: External ear/canal- Normal, TM - clear with good landmarks. Left ear: External ear/canal- Normal, TM - clear with good landmarks Oropharynx:mild erythema, without exudates present Heart: Negative. RRR without obvious murmur, gallop, or rubs. No ectopy. 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[facility]) 2008: Cardiac dysrhythmia, unspecified No date: Depressive disorder, not elsewhere classified No date: DVT (deep venous thrombosis) ([facility]) Comment: after PICC line No date: Esophageal reflux 04/09/2015: 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 No date: Irritable bowel syndrome No date: Morbid obesity ([facility]) Comment: stated BMI 47.3 No date: BRISEYDA (obstructive sleep apnea) No date: Other chronic nonalcoholic liver disease No date: Personal history of tobacco use, presenting hazards to health Comment: 1/2 ppd x 5 years; quit 08/18/14 - restarted and quit in 2020 07/2021: Pneumonia due to COVID-19 virus No date: Pulmonary embolism ([facility]) Comment: after PICC line No date: V-tach ([facility]) PAST SURGICAL HISTORY 2003: DELIVERY ONLY Comment: , low cervical 01/08/2008: CHOLECYSTECTOMY 04/2021: EGD 02/2021: EGD 04/11/2022: LAPAROSCOPIC GASTRECTOMY 2012: LAPAROSCOPIC UTERINE NERVE ABLATION 2008: LIVER BIOPSY 09/21/2018: MIDLINE CATHETER Comment: 2009: PAST SURGICAL HISTORY OF Comment: spring coils in fallopian tubes 2010: S BALLOON,UTERINE ABLATION [id number] 2019: SHX CARDIAC RADIOFREQUENCY ABLATION Comment: ventricular 2003: TONSILLECTOMY PRIMARY/SECONDARY Comment: Tonsillectomy, wisdom teeth ALLERGIES Bupropion, Citalopram, Hydrocodone-Acetaminophen, Meclizine, Morphine, Nadolol, Penicillins, and Prednisone MEDICATIONS venlafaxine ER (EFFEXOR XR) 75 mg 24 hr capsule Take 75 mg by mouth two times a day. buPROPion SR (WELLBUTRIN SR) 150 mg 12 hr tablet PLEASE SEE ATTACHED FOR DETAILED DIRECTIONS pantoprazole DR (PROTONIX) 40 mg tablet TAKE 1 TABLET BY MOUTH EVERY DAY furosemide (LASIX) 20 mg tablet Take 20 mg by mouth once daily. BIOTIN ORAL Take by mouth once daily. multivit-min/iron/folic acid/K (BARIATRIC MULTIVITAMINS ORAL) Take by mouth once daily. CALCIUM CITRATE ORAL Take by mouth once daily. Lactobac no.41/Bifidobact no.7 (PROBIOTIC-10 ORAL) Take by mouth. LORazepam (ATIVAN) 0.5 mg Take 1 mg by mouth as needed. FAMILY HISTORY Problem Relation Age of Onset Anxiety disorder Mother panic attacks Heart Attack Father 54 Heart disease Father coronary stents other (liver disease) Father alpha 1 antitrypsin; has liver transplant other (atrial fibrillation) Father Thyroid Sister Hashimotos Anxiety disorder Sister other (atrial fibrillation) Paternal Grandmother Heart disease Paternal Grandfather heart transplant other (liver failure) Paternal Grandfather Anxiety disorder Sister other (atrial fibrillation) Paternal Uncle other (atrial fibrillation) Paternal Aunt Social History Tobacco Use Smoking status: Former Current packs/day: 0.00 Average packs/day: 0.5 packs/day for 10.0 years (5.0 ttl pk-yrs) Types: Cigarettes Start date: 2009 Quit date: 2020 Years since quittin.6 Smokeless tobacco: Never Tobacco comments: total quit 2017. currently 5 cigarettes/month Vaping Use Vaping status: Never Used Substance Use Topics Alcohol use: Not Currently Drug use: No Comment: no medical THC card ASSESSMENT/PLAN: 1. URI, acute - ICD9: 465.9, ICD10: J06.9 (primary diagnosis) - COVID AND INFLUENZA A/B AND RSV PCR, ROUTINE 2. A (more content not included)...[facility]08-28-2024 History of Present illness Narrative* Delfin Jain APRN.HOT WORKER - 04/24/2024 3:31 PM EDT CC: Patient presents with: Sinus Problem: Congestion, cough, sore throat, MCKINNEY x 3 days HPI: Curly Cowart is a 38 year old female who presents to the office with complaint of chest congestion, head congestion, cough, nonproductive, and sore throat for a few days. Symptoms are staying the same. Associated symptoms includes headache. Denies nausea, vomiting , and diarrhea. Treatments tried include nothing so far. with no relief of symptoms. Sick contacts: unknown. History of asthma, frequent episodes of bronchitis, chronic bronchitis, bronchiectasis or COPD: No Smoker: No Seasonal/environmental allergies: No The ROS is otherwise negative. The patient's pmh, medications, allergies, and past visits are reviewed. PHYSICAL EXAM: BP 132/86 Pulse 88 Temp 36.9 C (98.5 F) Resp 20 Wt (!) 148.3 kg (326 lb 15.1 oz) LMP 07/11/2016 SpO2 98% BMI 52.77 kg/m General appearance: alert, cooperative, pleasant, in no acute distress Head: Normocephalic Eyes: EOM's intact, conjunctiva pink and moist, no icterus, sclera white, non-injected Ears: Right ear: External ear/canal- Normal, TM - clear with good landmarks. Left ear: External ear/canal- Normal, TM - clear with good landmarks Oropharynx:mild erythema, without exudates present Heart: Negative. RRR without obvious murmur, gallop, or rubs. No ectopy. 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 No date: Irritable bowel syndrome No date: Morbid obesity ([facility]) Comment: stated BMI 47.3 No date: BRISEYDA (obstructive sleep apnea) No date: Other chronic nonalcoholic liver disease No date: Personal history of tobacco use, presenting hazards to health Comment: 1/2 ppd x 5 years; quit 08/18/14 - restarted and quit in 07/2021: Pneumonia due to COVID-19 virus No date: Pulmonary embolism ([facility]) Comment: after PICC line No date: V-tach (HCC) PAST SURGICAL HISTORY 2003: DELIVERY ONLY Comment: , low cervical 01/08/2008: CHOLECYSTECTOMY 04/2021: EGD 02/2021: EGD 04/11/2022: LAPAROSCOPIC GASTRECTOMY 2012: LAPAROSCOPIC UTERINE NERVE ABLATION 2008: LIVER BIOPSY 09/21/2018: MIDLINE CATHETER Comment: 2010: PAST SURGICAL HISTORY OF Comment: spring coils in fallopian tubes 2010: S BALLOON,UTERINE ABLATION [id number] 2019: SHX CARDIAC RADIOFREQUENCY ABLATION Comment: ventricular 2004: TONSILLECTOMY PRIMARY/SECONDARY <AGE 12 Comment: Tonsillectomy, wisdom teeth ALLERGIES Bupropion, Citalopram, Hydrocodone-Acetaminophen, Meclizine, Morphine, Nadolol, Penicillins, and Prednisone MEDICATIONS venlafaxine ER (EFFEXOR XR) 75 mg 24 hr capsule Take 75 mg by mouth two times a day. buPROPion SR (WELLBUTRIN SR) 150 mg 12 hr tablet PLEASE SEE ATTACHED FOR DETAILED DIRECTIONS pantoprazole DR (PROTONIX) 40 mg tablet TAKE 1 TABLET BY MOUTH EVERY DAY furosemide (LASIX) 20 mg tablet Take 20 mg by mouth once daily. BIOTIN ORAL Take by mouth once daily. multivit-min/iron/folic acid/K (BARIATRIC MULTIVITAMINS ORAL) Take by mouth once daily. CALCIUM CITRATE ORAL Take by mouth once daily. Lactobac no.41/Bifidobact no.7 (PROBIOTIC-10 ORAL) Take by mouth. LORazepam (ATIVAN) 0.5 mg Take 1 mg by mouth as needed. FAMILY HISTORY Problem Relation Age of Onset Anxiety disorder Mother panic attacks Heart Attack Father 54 Heart disease Father coronary stents other (liver disease) Father alpha 1 antitrypsin; has liver transplant other (atrial fibrillation) Father Thyroid Sister Hashimotos Anxiety disorder Sister other (atrial fibrillation) Paternal Grandmother Heart disease Paternal Grandfather heart transplant other (liver failure) Paternal Grandfather Anxiety disorder Sister other (atrial fibrillation) Paternal Uncle other (atrial fibrillation) Paternal Aunt Social History Tobacco Use Smoking status: Former Current packs/day: 0.00 Average packs/day: 0.5 packs/day for 10.0 years (5.0 ttl pk-yrs) Types: Cigarettes Start date: 2009 Quit date: 2020 Years since quittin.6 Smokeless tobacco: Never Tobacco comments: total quit 2017. currently 5 cigarettes/month Vaping Use Vaping status: Never Used Substance Use Topics Alcohol use: Not Currently Drug use: No Comment: no medical THC card ASSESSMENT/PLAN: 1. URI, acute - ICD9: 465.9, ICD10: J06.9 (primary diagnosis) - COVID & INFLUENZA A/B & RSV PCR, ROUTINE 2. Acute cough - ICD9: 786.2, ICD10: R05.1 - XR CHEST 2V FRONTAL/LAT * * * * Physician Interpretation * * * * EXAMINATION: CHEST RADIOGRAPH (2 VIEW FRONTAL & LATERAL) CLINICAL HISTORY: Acute cough MQ: [id number] EXAM DATE/TIME: 04/24/2024 4:14 PM COMPARISON: 09/22/2022 RESULT: Lines, tubes, and devices: None. Lungs and pleura: No consolidation. No lung mass. No pleural effusion. No pneumothorax. Cardiomediastinal silhouette: Normal cardiomediastinal silhouette. Bones and soft tissues: Unremarkable. IMPRESSION IMPRESSION: No acute radiographic abnormality. Access Specialist: YUVAL Transcribe Date/Time: Apr 24 2024 4:15P Dictated by : AMI DAVENPORT MD Patient was given Tessalon Perles for her cough. At this time it is believed to be viral. Patient can treat with [id number] medication for symptom management. Prescription instructions reviewed with patient as applicable. Potential red flag symptoms discussed with the patient. Reviewed appropriate action plan to take if red flag symptoms occur. Patient agreeable to treatment plan. Delfin Jain APRN.SWATI [facility] History of Present illness Narrative* Vargas Mujica PA-C - 02/28/2024 1:20 PM EDT Subjective Patient ID: Curly Cowart is a 38 y.o. female who presents for Follow-up (CURRENTLY TAKING EFFEXOR ONCE A DAY. WOULD LIKE TO INCREASE BID DUE TO A LOT OF LIFE CHANGES LATELY. IS INTERESTED IN GETTING TESTED FOR ADHD. STATES GOT WORST OVER THE YEARS CAN'T CONCENTRATE/SIT STILL. PHQ IS POSTIVE. ATIVAN CONTROL RENEWAL AND UTOX DUE) HPI Labs Possible ADHD Consider referral to psych or eval with Dr tavallaee Med check anxiety - ativan PRN - effexor fdaily but questions needs inc pt has tried about everything she believes other than prozac (she believes as far as SSRI and SNRI) she has tried wellbutrin and little relief she denies trying abilify or prozac in the past known depression - hesitant to try new med given freq s.e. with meds synthroid - currently not on meds and most recent labs are WNL - she states she was cleared by the endo at this time HTN /LE edema - HCTZ changed to lasix and is needing it on occasion - typically daily at this time GERD - stable on PPI - elevated LFT - following with specialists- has been sometime since she has seen them elevated ferritin - has followed with specialists and states no further work up indicated no concern at that time- she believes her ferritin if further elevated post covid which I explained is commonly seen. Level has improved since bariatric Surgery post op Bariatric status - Apr 11 2022 - Polyarthralgia and has fam hx of auto-immunes issues. She has been diagnosed with ankylosing spondylitis- she is unsure if this was an official diagnosis given other health issues at the time. is curious in further work up given her pain AAT carrier Previously noted Urinary incontinence and urgency symptoms - she noted this once she has lost a lotof weight. Consider body changes vs pelvic floor instability. We discussed follow up with ORIENTOR for eval but consider pelvic floor therapy Preventative Testing mammo - suggest age 38 - ordered DEXA - suggest age 50-55 colonoscopy - suggest age 45-50 PAP Fall - NEG February 2024 PHQ9 score of 15 March 2024 - known depression and exacerbated OARRS: Vargas Mujica PA-C on 02/28/2024 1:42 PM I have personally reviewed the OARRS report for Curly Cowart. I have considered the risks of abuse, dependence, addiction and diversion and I believe that it is clinically appropriate for Curly Cowart to be prescribed this medication Is the patient prescribed a combination of a benzodiazepine and opioid? No Last Urine Drug Screen / ordered today: Yes No results found for this or any previous visit (from the past 8760 hour(s)). N/A Controlled Substance Agreement: Date of the Last Agreement: 02/28/2024 Reviewed Controlled Substance Agreement including but not limited to the benefits, risks, and alternatives to treatment with a Controlled Substance medication(s). Patient Active Problem List Diagnosis AAT (niwtv-4-olibstajwkb) deficiency (Multi) Abnormal EKG Bilateral hand numbness Chronic low back pain Drug-induced constipation Vitamin D deficiency Depression, major, single episode, moderate (Multi) Elevated ferritin level Elevated LFTs Fatigue Fatty liver disease, nonalcoholic GERD (gastroesophageal reflux disease) Glucose intolerance (impaired glucose tolerance) Shahzad's disease Hepatomegaly High serum fibrinogen History of pulmonary embolism Dilated renal pelvis Hydronephrosis Insomnia secondary to depression with anxiety Iron deficiency anemia Lightheadedness Low back pain with right-sided sciatica Lower extremity edema Lumbar herniated disc Mild mental slowing Class 3 severe obesity due to excess calories with serious comorbidity and body mass index (BMI) of50.0 to 59.9 in adult (Multi) BRISEYDA on CPAP Palpitations Generalized anxiety disorder PTSD (post-traumatic stress disorder) Sacroiliitis (CMS-HCC) H/O cardiac radiofrequency ablation 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 HENT: Negative for congestion, rhinorrhea, sinus pain, sore throat and tinnitus. Eyes: Negative for discharge, redness and visual disturbance. Respiratory: Negative for cough, chest tightness, shortness of breath and wheezing. Cardiovascular: Negative for chest pain, palpitations and leg swelling. Gastrointestinal: Negative for abdominal pain, constipation, diarrhea, nausea and vomiting. Endocrine: Negative for cold intolerance and heat intolerance. Genitourinary: Negative for flank pain, frequency and urgency. Musculoskeletal: Negative for back pain, gait problem and neck pain. Skin: Negative for rash and wound. Neurological: Negative for dizziness, tremors, syncope, numbness and headaches. Hematological: Does not bruise/bleed easily. Psychiatric/Behavioral: Positive for decreased concentration and dysphoric mood. Negative for confusion, sleep disturbance and suicidal ideas. The patient is nervous/anxious. Past Medical History: Diagnosis Date Abdominal distension (gaseous) Abdominal bloating Abnormal results of thyroid function studies Abnormal thyroid function test Abnormal weight gain Weight gain Dyspnea, unspecified Dyspnea Headache 02/28/2024 Immunization not carried out because of patient refusal Influenza vaccination declined Palpitations Palpitations Personal history of other diseases of the circulatory system History of hypotension Personal history of other endocrine, nutritional and metabolic disease History of Shahzad thyroiditis Personal history of other mental and behavioral disorders History of anxiety disorder Personal history of other specified conditions History of dizziness Post-traumatic stress disorder, unspecified Post traumatic stress disorder (PTSD) Past Surgical History: Procedure Laterality Date SECTION, CLASSIC 12/02/2016 Section CHOLECYSTECTOMY 12/02/2016 Cholecystectomy ESOPHAGOGASTRODUODENOSCOPY 12/02/2016 Diagnostic Esophagogastroduodenoscopy GASTRIC BYPASS 04/11/2022 LIVER BIOPSY OTHER SURGICAL HISTORY 10/03/2019 Heart surgery TONSILLECTOMY 12/02/2016 Tonsillectomy TUBAL LIGATION 12/02/2016 Tubal Ligation Family History Problem Relation Name Age of Onset No Known Problems Mother Heart attack Father Hyperlipidemia Father Hypertension Father Diabetes Other GRANDPARENT Thyroid disease Other AUNT Social History Tobacco Use Smoking status: Former Types: Cigarettes Smokeless tobacco: Never Vaping Use Vaping status: Never Used Substance Use Topics Alcohol use: Not Currently Drug use: Never Allergies Allergen Reactions Citalopram Other Meclizine Other Morphine Other Nadolol Other Penicillin V Hives Bupropion Hcl Rash Hydrocodone-Acetaminophen Itching and Rash Current Outpatient Medications Medication Sig Dispense Refill aspirin 81 mg chewable tablet Chew 1 tablet (81 mg) once daily. biotin 10 mg tablet Take 1 tablet (10 mg) by mouth once daily. calcium carb/vitamin D3/vit K1 (SOFT CHEWS CALCIUM ORAL) Take by mouth early in the morning.. cyclobenzaprine (Flexeril) 10 mg tablet Take 1 tablet (10 mg) by mouth 2 times a day as needed for muscle spasms. 60 tablet 0 Lactobacillus acidophilus (PROBIOTIC ACIDOPHILUS ORAL) Take 1 tablet by mouth once daily. LORazepam (Ativan) 1 mg tablet Take 1 tablet (1 mg) by mouth 3 times a day as needed for anxiety. 60 tablet 0 magnesium 30 mg tablet Take 1 tablet (30 mg) by mouth 2 times a day. multivitamin-children's (Flintstones Complete, iron,) chewable tablet Chew 2 tablets once daily. omeprazole OTC (PriLOSEC OTC) 20 mg EC tablet Take 1 tablet (20 mg) by mouth once daily in the morning. Take before meals. Do not crush, chew, or split. pantoprazole (ProtoNix) 40 mg EC tablet Take 1 tablet (40 mg) by mouth once daily. 90 tablet 3 albuterol 90 mcg/actuation inhaler INHALE 1 TO 2 PUFFS EVERY 6 HOURS NEEDED (Patient not taking:Reported on 09/25/2023) 18 g 1 buPROPion SR (Wellbutrin SR) 150 mg 12 hr tablet Do not crush, chew, or split. Take 1 tab po daily x 1-2 weeks then inc to 1 tab po bid 60 tablet 5 ergocalciferol, vitamin D2, (VITAMIN D2 ORAL) Take by mouth early in the morning.. furosemide (Lasix) 20 mg tablet TAKE 1 TABLET BY MOUTH EVERY DAY FOR 7 DAYS THEN NEEDED FOR EDEMA (Patient not taking: Reported on 02/28/2024) 30 tablet 5 venlafaxine (Effexor) 75 mg tablet Take 1 tablet (75 mg) by mouth every other day. venlafaxine XR (Effexor-XR) 75 mg 24 hr capsule Take 1 capsule (75 mg) by mouth 2 times a day. 180 capsule 3 No current facility-administered medications for this visit. Objective BP 111/77 Pulse 61 Ht 1.702 m (5' 7) Wt 148 kg (327 lb) BMI 51.22 kg/m Physical Exam Vitals reviewed. Constitutional: Appearance: Normal appearance. She is obese. HENT: Head: Normocephalic. Right Ear: External ear normal. Left Ear: External ear normal. Nose: Nose normal. No congestion or rhinorrhea. Mouth/Throat: Mouth: Mucous membranes are moist. Eyes: Extraocular Movements: Extraocular movements intact. Conjunctiva/sclera: Conjunctivae normal. Pupils: Pupils are equal, round, and reactive to light. Cardiovascular: Rate and Rhythm: Normal rate and regular rhythm. Pulses: Normal pulses. Pulmonary: Effort: Pulmonary effort is normal. Breath sounds: Normal breath sounds. Abdominal: General: Bowel sounds are normal. Palpations: Abdomen is soft. Tenderness: There is no abdominal tenderness. There is no right CVA tenderness or left CVA tenderness. Musculoskeletal: General: No tenderness. Normal range of motion. Cervical back: Normal range of motion and neck supple. No tenderness. Skin: General: Skin is warm and dry. Neurological: General: No focal deficit present. Mental Status: She is alert and oriented to person, place, and time. Psychiatric: Mood and Affect: Mood normal. Behavior: Behavior normal. Testing Component Latest Ref Rng 09/25/2023 LEUKOCYTES (10*3/UL) IN BLOOD BY AUTOMATED COUNT, [facility] 4.4 - 11.3 x10*3/uL 8.2 nRBC 0.0 - 0.0 /100 WBCs 0.0 ERYTHROCYTES (10*6/UL) IN BLOOD BY AUTOMATED COUNT, [facility] 4.00 - 5.20 x10*6/uL 5.34 (H) HEMOGLOBIN 12.0 - 16.0 g/dL 15.1 HEMATOCRIT 36.0 - 46.0 % 47.2 (H) MCV 80 - 100 fL 88 MCH 26.0 - 34.0 pg 28.3 MCHC 32.0 - 36.0 g/dL 32.0 RED CELL DISTRIBUTION WIDTH 11.5 - 14.5 % 13.4 PLATELETS (10*3/UL) IN BLOOD AUTOMATED COUNT, [facility] 150 - 450 x10*3/uL 208 NEUTROPHILS/100 LEUKOCYTES IN BLOOD BY AUTOMATED COUNT, [facility] 40.0 - 80.0 % 63.4 Immature Granulocytes %, Automated 0.0 - 0.9 % 0.1 Lymphocytes % 13.0 - 44.0 % 28.2 Monocytes % 2.0 - 10.0 % 6.7 Eosinophils % 0.0 - 6.0 % 1.2 Basophils % 0.0 - 2.0 % 0.4 NEUTROPHILS (10*3/UL) IN BLOOD BY AUTOMATED COUNT, [facility] 1.20 - 7.70 x10*3/uL 5.22 Immature Granulocytes Absolute, Automated 0.00 - 0.70 x10*3/uL 0.01 Lymphocytes Absolute 1.20 - 4.80 x10*3/uL 2.32 Monocytes Absolute 0.10 - 1.00 x10*3/uL 0.55 Eosinophils Absolute 0.00 - 0.70 x10*3/uL 0.10 Basophils Absolute 0.00 - 0.10 x10*3/uL 0.03 GLUCOSE 74 - 99 mg/dL 85 SODIUM 136 - 145 mmol/L 140 POTASSIUM 3.5 - 5.3 mmol/L 4.0 CHLORIDE 98 - 107 mmol/L 104 Bicarbonate 21 - 32 mmol/L 30 Anion Gap 10 - 20 mmol/L 10 Blood Urea Nitrogen 6 - 23 mg/dL 13 Creatinine 0.50 - 1.05 mg/dL 0.67 EGFR >60 mL/min/1.73m*2 >90 Calcium 8.6 - 10.3 mg/dL 9.6 Albumin 3.4 - 5.0 g/dL 4.3 Alkaline Phosphatase 33 - 110 U/L 111 (H) Total Protein 6.4 - 8.2 g/dL 7.6 AST 9 - 39 U/L 38 Bilirubin Total 0.0 - 1.2 mg/dL 0.6 ALT 7 - 45 U/L 46 (H) CHOLESTEROL 0 - 199 mg/dL 218 (H) HDL CHOLESTEROL mg/dL 52.0 Cholesterol/HDL Ratio 4.2 LDL Calculated <=99 mg/dL 147 (H) VLDL 0 - 40 mg/dL 19 TRIGLYCERIDES 0 - 149 mg/dL 97 Non HDL Cholesterol 0 - 149 mg/dL 166 (H) IRON 35 - 150 ug/dL 90 UIBC 110 - 370 ug/dL 228 TIBC 240 - 445 ug/dL 318 % Saturation 25 - 45 % 28 Hemoglobin A1C see below % 4.7 Estimated Average Glucose Not Established mg/dL 88 Thyroid Stimulating Hormone 0.44 - 3.98 mIU/L 2.66 Thyroxine, Free 0.61 - 1.12 ng/dL 0.84 FERRITIN 8 - 150 ng/mL 129 MAGNESIUM 1.60 - 2.40 mg/dL 1.89 Vitamin B12 211 - 911 pg/mL 534 Vitamin D, 25-Hydroxy, Total 30 - 100 ng/mL 38 C-Reactive Protein <1.00 mg/dL 0.71 Sed Rate 0 - 20 mm/h 11 Impression MDM 1) COMPLEXITY: 1 OR MORE CHRONIC CONDITION WITH EXACERBATION, OR PROGRESSION OR SIDE EFFECT OF TREATMENT ADDRESSED 2)DATA: TESTS INTERPRETED AND OR ORDERED, TOOK INDEPENDENT HISTORY OR RECORDS REVIEWED 3)RISK: MODERATE RISK DUE TO NATURE OF MEDICAL CONDITIONS/COMORBIDITY OR MEDICATIONS ORDERED OR SURGICAL OR PROCEDURE REFERRAL, . Reviewed labs and Testing on file Patient to follow diet low in cholesterol, fat, and sodium. Patient is advised to increase Exercise. Patient is recommended to lose weight. Reviewed Meds and discussed common side effects Continue as directed Anxiety - renewed ativan prn Depression - add on wellbutrin as this may help with ADHD as well. Pt questions mild reaction in the past but would like to retry cautiously If little change or improvement in a few weeks - discussed inc to wellbutrin bid Consider visit with psych or MMT to further discuss ADHD diagnosed and other meds - will call if she wants to pursue Patient is strongly advised to be compliant with recommendations. Return to Clinic sooner if needed. Patient denies further questions/concerns at this time Assessment/Plan Problem List Items Addressed This Visit ICD-10-CM Vitamin D deficiency E55.9 Relevant Orders Vitamin D 25-Hydroxy,Total (for eval of Vitamin D levels) Depression, major, single episode, moderate (Multi) F32.1 Elevated ferritin level R79.89 Relevant Orders Iron and TIBC Ferritin Fatty liver disease, nonalcoholic K76.0 Relevant Orders Iron and TIBC Ferritin Glucose intolerance (impaired glucose tolerance) R73.02 Relevant Orders CBC and Auto Differential Comprehensive Metabolic Panel Hemoglobin A1C Lipid Panel Magnesium Vitamin B12 Class 3 severe obesity due to excess calories with serious comorbidity and body mass index (BMI) of50.0 to 59.9 in adult (Multi) E66.01, Z68.43 Relevant Orders Sedimentation Rate C-reactive protein Salivary Cortisol Cortisol, Free Generalized anxiety disorder F41.1 Relevant Orders BI mammo bilateral screening tomosynthesis 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 E03.8, E06.3 Relevant Orders Thyroid Stimulating Hormone Thyroxine, Free Polyarthralgia M25.50 Relevant Orders Sedimentation Rate C-reactive protein Salivary Cortisol Cortisol, Free Other Visit Diagnoses Codes Major depressive disorder, single episode, moderate (Multi) - Primary F32.1 Relevant Medications venlafaxine XR (Effexor-XR) 75 mg 24 hr capsule buPROPion SR (Wellbutrin SR) 150 mg 12 hr tablet Anxiety F41.9 Relevant Medications buPROPion SR (Wellbutrin SR) 150 mg 12 hr tablet LORazepam (Ativan) 1 mg tablet Other Relevant Orders Opiate/Opioid/Benzo Prescription Compliance OOB Internal Tracking Encounter for screening mammogram for breast cancer Z12.31 Medication management Z79.899 Relevant Orders Opiate/Opioid/Benzo Prescription Compliance OOB Internal Tracking FU in 1-2 mo with med check / mood [facility] Work Phone: [phone]) 773-769802-06-2024 Miscellaneous Notes* Telephone Encounter - HoneyNikita gomezJENI - 10/03/2023 8:28 AM EST Curly called with concerns of heart palpations, pain in neck and arm, and discomfort in chest. History of VT's and had an oblation in 2019. Last office visit 01/09/[address] Garay. Advised patient to go to ER to be assessed. Patient agreed, transferred patient to scheduling to make future appointment with Dr Garay. Curly# [phone] Nikita Méndez LPN October 03, 2023 8:39 AM [facility] History of Present illness Narrative* Vargas Mujica PA-C - 09/25/2023 8:20 AM EST Subjective Patient ID: Curly Cowart is a 38 y.o. female who presents for Follow-up (GENERAL CHECK UP + MEDREFILL ATIVAN. POSITIVE PHQ 10/06 - FATHER 08/23/23. ) HPI Labs - not done and needs new orders Med check anxiety - ativan PRN - effexor - consider weaning down to every other day (currently daily) but discussed she should cont daily for a few months given the recent loss of her father and possible SAD component as well pt has tried about everything she believes other than prozac (she believes as far as SSRI and SNRI) she has tried wellbutrin and little relief she denies trying abilify or prozac in the past known depression - hesitant to try new med given freq s.e. with meds synthroid - currently not on meds and most recent labs are WNL - she states she was cleared by the endo at this time HTN /LE edema - HCTZ changed to lasix and is needing it on occasion - typically daily at this time GERD - stable on PPI - elevated LFT - following with specialists- has been sometime since she has seen them elevated ferritin - has followed with specialists and states no further work up indicated no concern at that time- she believes her ferritin if further elevated post covid which I explained is commonly seen. Level has improved since bariatric Surgery post op Bariatric status - Apr 11 2022 - Polyarthralgia and has fam hx of auto-immunes issues. She has been diagnosed with ankylosing spondylitis- she is unsure if this was an official diagnosis given other health issues at the time. is curious in further work up given her pain AAT carrier Previously noted Urinary incontinence and urgency symptoms - she noted this once she has lost a lotof weight. Consider body changes vs pelvic floor instability. We discussed follow up with ORIENTOR for eval but consider pelvic floor therapy Preventative Testing mammo - suggest age 38 - ordered DEXA - suggest age 50-55 colonoscopy - suggest age 45-50 PAP Fall - NEG AUG 2023 PHQ9 score of 21 OARRS: Vargas Mujica PA-C on 09/25/2023 8:43 AM I have personally reviewed the OARRS report for Curly Cowart. I have considered the risks of abuse, dependence, addiction and diversion and I believe that it is clinically appropriate for Curly Cowart to be prescribed this medication Is the patient prescribed a combination of a benzodiazepine and opioid? No Last Urine Drug Screen / ordered today: No Recent Results (from the past 8760 hour(s)) OPIATE/OPIOID/BENZO PRESCRIPTION COMPLIANCE Collection Time: 02/09/23 4:22 PM Result Value Ref Range DRUG SCREEN COMMENT URINE SEE BELOW Creatine, Urine 210.9 mg/dL Amphetamine Screen, Urine PRESUMPTIVE NEGATIVE NEGATIVE Barbiturate Screen, Urine PRESUMPTIVE NEGATIVE NEGATIVE Cannabinoid Screen, Urine PRESUMPTIVE NEGATIVE NEGATIVE Cocaine Screen, Urine PRESUMPTIVE NEGATIVE NEGATIVE PCP Screen, Urine PRESUMPTIVE NEGATIVE NEGATIVE 7-Aminoclonazepam <25 Cutoff <25 ng/mL Alpha-Hydroxyalprazolam <25 Cutoff <25 ng/mL Alpha-Hydroxymidazolam <25 Cutoff <25 ng/mL Alprazolam <25 Cutoff <25 ng/mL Chlordiazepoxide <25 Cutoff <25 ng/mL Clonazepam <25 Cutoff <25 ng/mL Diazepam <25 Cutoff <25 ng/mL Lorazepam >1000 (A) Cutoff <25 ng/mL Midazolam <25 Cutoff <25 ng/mL Nordiazepam <25 Cutoff <25 ng/mL Oxazepam <25 Cutoff <25 ng/mL Temazepam <25 Cutoff <25 ng/mL Zolpidem <25 Cutoff <25 ng/mL Zolpidem Metabolite (ZCA) <25 Cutoff <25 ng/mL 6-Acetylmorphine <25 Cutoff <25 ng/mL Codeine <50 Cutoff <50 ng/mL Hydrocodone <25 Cutoff <25 ng/mL Hydromorphone <25 Cutoff <25 ng/mL Morphine Urine <50 Cutoff <50 ng/mL Norhydrocodone <25 Cutoff <25 ng/mL Noroxycodone <25 Cutoff <25 ng/mL Oxycodone <25 Cutoff <25 ng/mL Oxymorphone <25 Cutoff <25 ng/mL Tramadol <50 Cutoff <50 ng/mL O-Desmethyltramadol <50 Cutoff <50 ng/mL Fentanyl <2.5 Cutoff<2.5 ng/mL Norfentanyl <2.5 Cutoff<2.5 ng/mL METHADONE CONFIRMATION,URINE <25 Cutoff <25 ng/mL EDDP <25 Cutoff <25 ng/mL Results are as expected. Controlled Substance Agreement: Date of the Last Agreement: 02/09/2023 Reviewed Controlled Substance Agreement including but not limited to the benefits, risks, and alternatives to treatment with a Controlled Substance medication(s). Patient Active Problem List Diagnosis AAT (piudu-[id number]) deficiency (CMS/HCC) Abnormal EKG Bilateral hand numbness Chronic low back pain Drug-induced constipation Vitamin D deficiency Depression, major, single episode, moderate (CMS/HCC) Elevated ferritin level Elevated LFTs Fatigue Fatty liver disease, nonalcoholic GERD (gastroesophageal reflux disease) Glucose intolerance (impaired glucose tolerance) Shahzad's disease Hepatomegaly High serum fibrinogen History of pulmonary embolism Dilated renal pelvis Hydronephrosis Insomnia secondary to depression with anxiety Iron deficiency anemia Lightheadedness Low back pain with right-sided sciatica Lower extremity edema Lumbar herniated disc Mild mental slowing Class 3 severe obesity due to excess calories with serious comorbidity and body mass index (BMI) of50.0 to 59.9 in adult (CMS/HCC) BRISEYDA on CPAP Palpitations Generalized anxiety disorder PTSD (post-traumatic stress disorder) Sacroiliitis (CMS/HCC) Ankylosing spondylitis (CMS/HCC) H/O cardiac radiofrequency ablation 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 HENT: Negative for congestion, rhinorrhea, sinus pain, sore throat and tinnitus. Eyes: Negative for discharge, redness and visual disturbance. Respiratory: Negative for cough, chest tightness, shortness of breath and wheezing. Cardiovascular: Negative for chest pain, palpitations and leg swelling. Gastrointestinal: Negative for abdominal pain, constipation, diarrhea, nausea and vomiting. Endocrine: Negative for cold intolerance and heat intolerance. Genitourinary: Negative for flank pain, frequency and urgency. Musculoskeletal: Positive for arthralgias and myalgias. Negative for back pain, gait problem and neck pain. Skin: Negative for rash and wound. Neurological: Negative for dizziness, tremors, syncope, numbness and headaches. Hematological: Does not bruise/bleed easily. Psychiatric/Behavioral: Positive for dysphoric mood. Negative for confusion, sleep disturbance and suicidal ideas. The patient is nervous/anxious. Past Medical History: Diagnosis Date Abdominal distension (gaseous) Abdominal bloating Abnormal results of thyroid function studies Abnormal thyroid function test Abnormal weight gain Weight gain Dyspnea, unspecified Dyspnea Immunization not carried out because of patient refusal Influenza vaccination declined Palpitations Palpitations Personal history of other diseases of the circulatory system History of hypotension Personal history of other endocrine, nutritional and metabolic disease History of Shahzad thyroiditis Personal history of other mental and behavioral disorders History of anxiety disorder Personal history of other specified conditions History of dizziness Post-traumatic stress disorder, unspecified Post traumatic stress disorder (PTSD) Past Surgical History: Procedure Laterality Date SECTION, CLASSIC 12/02/2016 Section CHOLECYSTECTOMY 12/02/2016 Cholecystectomy ESOPHAGOGASTRODUODENOSCOPY 12/02/2016 Diagnostic Esophagogastroduodenoscopy GASTRIC BYPASS 04/11/2022 LIVER BIOPSY OTHER SURGICAL HISTORY 10/03/2019 Heart surgery TONSILLECTOMY 12/02/2016 Tonsillectomy TUBAL LIGATION 12/02/2016 Tubal Ligation Family History Problem Relation Name Age of Onset No Known Problems Mother Heart attack Father Hyperlipidemia Father Hypertension Father Diabetes Other GRANDPARENT Thyroid disease Other AUNT Social History Tobacco Use Smoking status: Former Types: Cigarettes Smokeless tobacco: Never Vaping Use Vaping Use: Never used Substance Use Topics Alcohol use: Not Currently Drug use: Never Allergies Allergen Reactions Citalopram Other Meclizine Other Morphine Other Nadolol Other Penicillin V Hives Bupropion Hcl Rash Hydrocodone-Acetaminophen Itching and Rash Current Outpatient Medications Medication Sig Dispense Refill aspirin 81 mg chewable tablet Chew 1 tablet (81 mg) once daily. biotin 10 mg tablet Take 1 tablet (10 mg) by mouth once daily. calcium carb/vitamin D3/vit K1 (SOFT CHEWS CALCIUM ORAL) Take by mouth early in the morning.. cyclobenzaprine (Flexeril) 10 mg tablet Take 1 tablet (10 mg) by mouth 2 times a day as needed for muscle spasms. 60 tablet 0 furosemide (Lasix) 20 mg tablet TAKE 1 TABLET BY MOUTH EVERY DAY FOR 7 DAYS THEN NEEDED FOR EDEMA 30 tablet 5 Lactobacillus acidophilus (PROBIOTIC ACIDOPHILUS ORAL) Take 1 tablet by mouth once daily. magnesium 30 mg tablet Take 1 tablet (30 mg) by mouth 2 times a day. multivitamin-children's (Flintstones Complete, iron,) chewable tablet Chew 2 tablets once daily. omeprazole OTC (PriLOSEC OTC) 20 mg EC tablet Take 1 tablet (20 mg) by mouth once daily in the morning. Take before meals. Do not crush, chew, or split. albuterol 90 mcg/actuation inhaler INHALE 1 TO 2 PUFFS EVERY 6 HOURS NEEDED (Patient not taking:Reported on 09/25/2023) 18 g 1 ergocalciferol, vitamin D2, (VITAMIN D2 ORAL) Take by mouth early in the morning.. LORazepam (Ativan) 1 mg tablet Take 1 tablet (1 mg) by mouth 3 times a day as needed for anxiety. 60 tablet 0 pantoprazole (ProtoNix) 40 mg EC tablet Take 1 tablet (40 mg) by mouth once daily. 90 tablet 3 venlafaxine (Effexor) 75 mg tablet Take 1 tablet (75 mg) by mouth every other day. venlafaxine XR (Effexor-XR) 75 mg 24 hr capsule Take 1 capsule (75 mg) by mouth once daily. 90 capsule 3 No current facility-administered medications for this visit. Objective BP 124/80 Pulse 80 Ht 1.651 m (5' 5) Wt 137 kg (303 lb) BMI 50.42 kg/m Physical Exam Vitals reviewed. Constitutional: Appearance: Normal appearance. She is obese. HENT: Head: Normocephalic. Right Ear: External ear normal. Left Ear: External ear normal. Nose: Nose normal. No congestion or rhinorrhea. Mouth/Throat: Mouth: Mucous membranes are moist. Eyes: Extraocular Movements: Extraocular movements intact. Conjunctiva/sclera: Conjunctivae normal. Pupils: Pupils are equal, round, and reactive to light. Cardiovascular: Rate and Rhythm: Normal rate and regular rhythm. Pulses: Normal pulses. Pulmonary: Effort: Pulmonary effort is normal. Breath sounds: Normal breath sounds. Abdominal: General: Bowel sounds are normal. Palpations: Abdomen is soft. Tenderness: There is no abdominal tenderness. There is no right CVA tenderness or left CVA tenderness. Musculoskeletal: General: No tenderness. Normal range of motion. Cervical back: Normal range of motion and neck supple. No tenderness. Skin: General: Skin is warm and dry. Neurological: General: No focal deficit present. Mental Status: She is alert and oriented to person, place, and time. Psychiatric: Mood and Affect: Mood normal. Behavior: Behavior normal. Testing Reviewed old labs on file Will get updated labs Impression MDM 1) COMPLEXITY: MORE THAN 1 STABLE CHRONIC CONDITION ADDRESSED 2)DATA: TESTS INTERPRETED AND OR ORDERED, TOOK INDEPENDENT HISTORY OR RECORDS REVIEWED 3)RISK: MODERATE RISK DUE TO NATURE OF MEDICAL CONDITIONS/COMORBIDITY OR MEDICATIONS ORDERED OR SURGICAL OR PROCEDURE REFERRAL, . Reviewed labs and Testing on file Patient to follow diet low in cholesterol, fat, and sodium. Patient is advised to increase Exercise. Patient is recommended to lose weight. Reviewed Meds and discussed common side effects Continue as directed Patient is strongly advised to be compliant with recommendations. Return to Clinic sooner if needed. Patient denies further questions/concerns at this time Assessment/Plan Problem List Items Addressed This Visit ICD-10-CM AAT (vhkod-4-vcyzxjkputk) deficiency ([facility]) E88.01 Vitamin D deficiency E55.9 Relevant Orders Vitamin D 25-Hydroxy,Total (for eval of Vitamin D levels) (Completed) Depression, major, single episode, moderate ([facility]) F32.1 Elevated ferritin level R79.89 Relevant Orders Iron and TIBC (Completed) Ferritin (Completed) Fatty liver disease, nonalcoholic K76.0 Relevant Orders CBC and Auto Differential (Completed) C-Reactive Protein (Completed) Sedimentation Rate (Completed) GERD (gastroesophageal reflux disease) K21.9 Relevant Medications pantoprazole (ProtoNix) 40 mg EC tablet Glucose intolerance (impaired glucose tolerance) R73.02 Relevant Orders Comprehensive Metabolic Panel (Completed) Hemoglobin A1C Lipid Panel (Completed) Magnesium (Completed) Vitamin B12 (Completed) Shahzad's disease E06.3 Relevant Orders Thyroid Stimulating Hormone (Completed) Thyroxine, Free (Completed) Class 3 severe obesity due to excess calories with serious comorbidity and body mass index (BMI) of50.0 to 59.9 in adult ([facility]) E66.01, Z68.43 Generalized anxiety disorder F41.1 Other Visit Diagnoses Codes Major depressive disorder, single episode, moderate (CMS/HCC) - Primary F32.1 Relevant Medications venlafaxine XR (Effexor-XR) 75 mg 24 hr capsule Anxiety F41.9 Relevant Medications LORazepam (Ativan) 1 mg tablet Encounter for screening mammogram for breast cancer Z12.31 Relevant Orders BI mammo bilateral screening tomosynthesis FU in 1-3 mo with labs and med check /mood check [facility] [phone] 277-640109-18-2023 Hospital Discharge instructions Patient Education 05/15/2023 18:40:46 Abdominal Pain, Unknown Cause, (Female) Unknown Causes of Abdominal Pain (Female) The exact cause of your belly (abdominal) pain is not clear. This does not mean that this is something to worry about. Everyone likes to know the exact cause of the problem. But sometimes with belly pain, there is no clear-cut cause, and this could be a good thing. The good news is that your symptoms can be treated, and you will feel better. Your condition does not seem serious now. But sometimes the signs of a serious problem may take more time to appear. For this reason, it is important for you to watch for any new symptoms, problems, or worsening of your condition. Over the next few days, the abdominal pain may come and go. Or it may be constant. Other common symptoms can include nausea and vomiting. Sometimes it can be difficult to tell if you feel nauseous. You may just feel bad and not connect that feeling to nausea. Constipation, diarrhea, and a fever maygo along with the pain. The pain may continue even if treated correctly over the following days. Depending on how things go, sometimes the cause can become clear and may need more or different treatment. Additional evaluations, medicines, or tests may also be needed. Home care Your healthcare provider may prescribe medicine for pain, symptoms, or an infection. Follow the healthcare provider's instructions for taking these medicines. General care Rest as much as you can until your next exam. No strenuous activities. Try to find positions that ease discomfort. A small pillow placed on the abdomen may help relieve pain. Something warm on your abdomen (such as a heating pad) may help, but be careful not to burn yourself. Diet Don t force yourself to eat, especially if having cramps, vomiting, or diarrhea. Water is important so you don't get dehydrated. Soup may also be good. Sports drinks may also help,especially if they are not too acidic. Don't drink sugary drinks as this can make things worse. Take liquids in small amounts. Don t guzzle them. Caffeine sometimes makes the pain and cramping worse. Don t take dairy products if you have vomiting or diarrhea. Don't eat large amounts at a time. Wait a few minutes between bites. Eat a diet low in fiber (called a low-residue diet). Foods allowed include refined breads, white rice, fruit and vegetable juices without pulp, tender meats. These foods will pass more easily throughthe intestine. Don t have whole-grain foods, whole fruits and vegetables, meats, seeds and nuts, fried or fatty foods, dairy, alcohol and spicy foods until your symptoms go away. Follow-up care Follow up with your healthcare provider, or as advised, if your pain does not begin to improve in the next 24 hours. Call 911 Call 911 if any of these occur: Trouble breathing Confusion Fainting or loss of consciousness Rapid heart rate Seizure When to seek medical advice Call your healthcare provider right away if any of these occur: Pain gets worse or moves to the right lower abdomen New or worsening vomiting or diarrhea Swelling of the abdomen Unable to pass stool for more than 3 days Fever of 100.4 F (38 C) or higher, or as directed by your healthcare provider. Blood in vomit or bowel movements (dark red or black color) Yellow color of eyes and skin (jaundice) Weakness, dizziness Chest, arm, back, neck, or jaw pain Unexpected vaginal bleeding or missed period Can't keep down liquids or water and you are getting dehydrated [id number] The [employer]. [address] [place] [address], [place] [address]. All rights reserved. This information is not intended as a substitute for professional medical care. Always follow yourhealthcare professional's instructions. Follow Up Care 05/15/2023 16:27:17 With:CHANDA VASQUEZ Address: [address] [address] [phone] Business (1) When:2-4 days With:VARGAS MUJICA Address: [address] [place] [address] [phone] Business (1) When:2-4 days [facility] Janellerna Srinivasan 09-18-2023 Note Discharge Instructions Thank you for allowing [facility] to assist you with your healthcare needs. The following is importantdischarge information regarding your hospital visit. Diagnosis from Today's Visit Abdominal pain What to Do Next Instructions from Your Care Team No qualifying data available. Post Acute Orders No qualifying data available. You Need to Schedule the Following Appointments Follow Up with CHANDA VASQUEZ When Within 2-4 days Where: [address] [address] [phone] Business (1) Follow Up with VARGAS MUJICA When Within 2-4 days Where: [address] [place] [address]- [phone] Business (1) Allergies Wellbutrin morphine penicillin Medications Please ask your primary doctor or pharmacist before taking any other medication not listed, including over the counter drugs, herbal medications, vitamins and or supplements as they may interact withyour home medications. Please take this list to your next doctor s visit. Bring all medications you take, including over the counter medications, herbals and other supplements with you to your doctor s visit. Patients and families are reminded to discard old lists and to update any records with all medication providers or retail pharmacies. Education Materials Unknown Causes of Abdominal Pain (Female) The exact cause of your belly (abdominal) pain is not clear. This does not mean that this is something to worry about. Everyone likes to know the exact cause of the problem. But sometimes with belly pain, there is no clear-cut cause, and this could be a good thing. The good news is that your symptoms can be treated, and you will feel better. Your condition does not seem serious now. But sometimes the signs of a serious problem may take more time to appear. For this reason, it is important for you to watch for any new symptoms, problems, or worsening of your condition. Over the next few days, the abdominal pain may come and go. Or it may be constant. Other common symptoms can include nausea and vomiting. Sometimes it can be difficult to tell if you feel nauseous. You may just feel bad and not connect that feeling to nausea. Constipation, diarrhea, and a fever maygo along with the pain. The pain may continue even if treated correctly over the following days. Depending on how things go, sometimes the cause can become clear and may need more or different treatment. Additional evaluations, medicines, or tests may also be needed. Home care Your healthcare provider may prescribe medicine for pain, symptoms, or an infection. Follow the healthcare provider's instructions for taking these medicines. General care Rest as much as you can until your next exam. No strenuous activities. Try to find positions that ease discomfort. A small pillow placed on the abdomen may help relieve pain. Something warm on your abdomen (such as a heating pad) may help, but be careful not to burn yourself. Diet Don t force yourself to eat, especially if having cramps, vomiting, or diarrhea. Water is important so you don't get dehydrated. Soup may also be good. Sports drinks may also help,especially if they are not too acidic. Don't drink sugary drinks as this can make things worse. Take liquids in small amounts. Don t guzzle them. Caffeine sometimes makes the pain and cramping worse. Don t take dairy products if you have vomiting or diarrhea. Don't eat large amounts at a time. Wait a few minutes between bites. Eat a diet low in fiber (called a low-residue diet). Foods allowed include refined breads, white rice, fruit and vegetable juices without pulp, tender meats. These foods will pass more easily throughthe intestine. Don t have whole-grain foods, whole fruits and vegetables, meats, seeds and nuts, fried or fatty foods, dairy, alcohol and spicy foods until your symptoms go away. Follow-up care Follow up with your healthcare provider, or as advised, if your pain does not begin to improve in the next 24 hours. Call 911 Call 911 if any of these occur: Trouble breathing Confusion Fainting or loss of consciousness Rapid heart rate Seizure When to seek medical advice Call your healthcare provider right away if any of these occur: Pain gets worse or moves to the right lower abdomen New or worsening vomiting or diarrhea Swelling of the abdomen Unable to pass stool for more than 3 days Fever of 100.4 F (38 C) or higher, or as directed by your healthcare provider. Blood in vomit or bowel movements (dark red or black color) Yellow color of eyes and skin (jaundice) Weakness, dizziness Chest, arm, back, neck, or jaw pain Unexpected vaginal bleeding or missed period Can't keep down liquids or water and you are getting dehydrated [phone] The [employer]. [address] [place] [address]. All rights reserved. This information is not intended as a substitute for professional medical care. Always follow yourhealthcare professional's instructions. Additional Information VACCINATE! IT SAVES LIVES! Members of the community who have not yet received the COVID-19 vaccine and would like to receive it can visit one of [facility] vaccine clinics. There are many vaccine clinic locations within the [facility]. For locations and available times, please visit [email or web address] It is important to note that some COVID mobile vaccine clinics are held outdoors and may be canceled in rainy or stormy conditions. To learn more about pediatric vaccinations (ages 5-11), we invite you to visit the [facility] webpage. [email or web address]/[email or web address] learn more about the COVID-19 vaccine, we invite you to visit the CDC website for a list of frequently asked questions. https://www.cdc.gov/coronavirus/2019-ncov/vaccines/faq.html [facility] [employer] Patient Portal Access Instructions: Stay connected with your healthcare team and access your personal medical information anytime with the [facility] Patient Portal. If you would like a full copy of your medical records please contact the [facility] Medical Records Department Monday through Monday between 8a.m. and 4:30p.m. Please follow the directions below to access the portal: 1.Access the email account you provided upon registration to the [facility].2.Look for an invitation email from [facility].3.Open the email and access the invitation link: Accept Invitation to [facility].Fill in the required palma to create your account. Sign into [email or web address] with your username and password that you created in the above steps to stay up to date. You can then view a summary of results, a summary of your visits, and the ability to download your summaries to your computer or send the information securely to a physician. Remember that your healthcare information is confidential, so carefully consider who you will allow to register on the [employer] Patient Portal for access to your information. You can also access the [employer] Patient Portal on the [employer]. Simply click on Health Records under [employer] and then click on the [employer] logo. HOW TO SAFELY DISPOSE OF PRESCRIPTION MEDICATIONS Please use one of the following methods to safely dispose of your unused medications. 1.Use a drug disposal kit: the drug disposal pouch allows you to safely discard your old and unuseddrugs. Ask your nurse to give you one when you are discharged.2.Visit a local take-back location: Many local pharmacies and police departments have programs that collect old and unwanted prescriptiondrugs. Call your local pharmacy or go to http://[email or web address] to find one close to you.3.Make use of household items: Use cat litter or old coffee grounds to dispose medications if other options arenot available. Mix your drugs with these household products, seal them in an airtight container andthrow it into the garbage. Call [facility]: [phone] to be sure your drugs can be disposed of in this way. Some medicines may require a different approach.4.Never flush your medications down the toilet. IF YOU HAVE BEEN PRESCRIBED AN OPIOIDS FOR PAIN If you have been prescribed an opioid (such as hydrocodone, oxycodone or morphine), it is critical to understand the possible side effects and risks of opioid pain medications. Even when taken as directed, opioids can have several side effects including: Tolerance, meaning you might need to take more of a medication for the same pain relief. Nausea, vomiting and/or constipation. Sleepiness, dizziness, dry mouth, confusion, depression or itching. Physical dependence, meaning you have withdrawal symptoms when a medication is stopped ? this can develop within a few days. KNOW YOUR RESPONSIBILITIES It is important to know exactly how much and how often to take the opioid pain medications you are prescribed. Never take opioids in higher amounts or more often than prescribed. Do not combine opioids with alcohol or other drugs that cause drowsiness, such as benzodiazepines, also known as benzos,including diazepam and alprazolam, muscle relaxants or sleep aids. Never sell or share prescriptionopioids. This is illegal. Store opioids in a secure place and out of reach of others (including children, family, friends and visitors). The last page(s) of this document has been signed and retained as a CHART COPY Signatures Patient Education Materials Abdominal Pain, Unknown Cause, (Female) Medication Leaflets My discharge plan and instructions have been reviewed and explained to me and ISOFYA AMANDA J understand my current condition and have read and understand these discharge instructions. I have received a written copy of the plan/instructions. If I have questions, I am aware that I should contactmy doctor. Patient/Rpg Developer Signature: Date/Time: Relationship to Patient: Witness Name/Signature: Date/Time: [facility]09-18-2023 Note ORIGINAL EXAMINATION: CT OF THE ABDOMEN AND PELVIS WITH CONTRAST 05/15/2023 5:54 pm TECHNIQUE: CT of the abdomen and pelvis was performed with the administration of intravenous contrast. Multiplanar reformatted images are provided for review. Automated exposure control, iterative reconstruction, and/or weight based adjustment of the mA/kV was utilized to reduce the radiation dose to as low as reasonably achievable. COMPARISON: None. HISTORY: ORDERING SYSTEM PROVIDED HISTORY: Reason for Exam: pain, nausea, increasing pain FINDINGS: The lung bases demonstrate no acute abnormality. No focal hepatic lesion or intrahepatic biliary ductal dilatation. Liver margins are slightly nodular on some images. The cord 8 lobe is also unusually prominent. Portal veins are patent. The spleen appears enlarged measuring 15.6 cm in AP dimension. The adrenal glands are unremarkable. Prior cholecystectomy. Minimal infiltrative changes are seen surrounding the uncinate process and pancreatic head (series 2, images 33-41). No pancreatic ductal dilatation or discrete pancreatic mass is identified. No gross filling defects within the splenic vein, SMV, or Betty splenic confluence. Symmetric nephrograms. The ureters are unremarkable. The bladder is decompressed limiting evaluation. Postsurgical changes at the gastroesophageal junction and stomach. Nondilated loops of small bowel. A normal appendix is tentatively identified. The colon demonstrates minimal colonic diverticulosis without adjacent inflammation to suggest diverticulitis. Probable bilateral tubal ligation clips. No free intraperitoneal gas. No lymphadenopathy. Nonaneurysmal abdominal aorta. No acute or aggressive osseous abnormality. Punctate sclerotic foci within the L3 vertebral body favors a bone island. IMPRESSION: Minimal infiltrative changes surrounding the incident process/pancreatic head, questionable acute interstitial edematous pancreatitis. Correlation with pancreatic enzymes is recommended. Slightly nodular liver margins and enlarged caudate lobe with mild splenomegaly. Consider liver cirrhosis and portal hypertension with splenomegaly. No ascites. I have personally reviewed the images of this examination and agree with the resident's findings and interpretations. Interpreted by: Ankit Macdonald MD Preliminary Report By: Leobardo Lewis Electronically signed By Ankit Macdonald MD Dictated Date: 05/15/2023 5:58:46 PM Prelim Date: 05/15/2023 6:09:50 PM Sign Date: 05/15/2023 6:26:14 PM Ordering Provider: [facility]09-18-2023 Note Sinus rhythm Left ventricular hypertrophy Electronic Signature: KVNG DOMINGUEZ MD 05/15/2023 17:04:40[facility] 07-03-2023 Miscellaneous Notes* Telephone Encounter - Marielos Mares RN - 02/27/2023 12:28 PM EDT Images from the original note were not included. [employer] message sent by Dr. Cheung to the patient. ANDRE Adan MD to Curly Cowart 1:35 PM Hello Monitor shows 2 runs of SVT benign arrhythmia SHORT LIVED We could watch this for now . If bothersome we could use meds claudy Last read by Curly Cowart at 2:25 PM on 02/24/2023. * Telephone Encounter - Michaela Bernard 02/24/2023 1:30 PM EDT Images from the original note were not included. Tomasz Garay MD 2 short episodes of SVT medical therapy slesophia * Telephone Encounter - Michaela Luevano - 02/21/2023 9:50 AM EDT I was talking to patient about scheduling and she notes that she has not heard back on her ZIO results. Ok to send [employer] message. Please review and advise. Michaela Luevano MA documented [facility] History of Present illness Narrative* Vargas Mujica PA-C - 02/09/2023 3:00 PM EDT Subjective Patient ID: Curly Cowart is a 37 y.o. female who presents for Follow-up (7 MONTH F/U - LABS DONE IN SEPTEMBER 2022. C/O MUSCLE/JOINT PAINS, FATIGUE, AND ANXIETY/DEPRESSION. FH RHEUMATOID ARTHRITIS(FATHER). SHE HAD GASTRIC SLEEVE IN MARCH 2022 AND HAS LOST OVER 100 LBS SINCE. C/O URINARY INCONTINENCE. POSITIVE PHQ2/9) HPI LABs Med check anxiety - ativan PRN - has stopped effexor and elavil and does not wish to restart given s.e. when coming off the med pt has tried about everything she believes other than prozac (she believes as far as SSRI and SNRI) she has tried wellbutrin and little relief she denies trying abilify or prozac in the past known depression - hesitant to try new med given freq s.e. with meds synthroid - currently not on meds and most recent labs are WNL - she states she was cleared by the endo at this time HTN /LE edema - HCTZ changed to lasix and is needing it on occasion - typically daily at this time GERD - stable on PPI - elevated LFT - following with specialists elevated ferritin - has followed with specialists and states no further work up indicated no concern at that time- she believes her ferritin if further elevated post covid which I explained is commonly seen. Level has improved since bariatric Surgery post op Bariatric status - Apr 11 2022 - Polyarthralgia and has fam hx of auto-immunes issues. She has been diagnosed with ankylosing spondylitis as well but is curious in further work up given her pain Urinary incontinence and urgency symptoms - she noted this once she has lost a lot of weight. Consider body changes vs pelvic floor instability. We discussed follow up with ORIENTOR for eval but consider pelvic floor therapy Preventative Testing mammo - suggest age 40 DEXA - suggest age 50-55 colonoscopy - suggest age 45-50 PAP OARRS: Vargas Mujica PA-C on 02/09/2023 3:43 PM I have personally reviewed the OARRS report for Curly Jorge A Cowart. I have considered the risks of abuse, dependence, addiction and diversion and I believe that it is clinically appropriate for Curly Cowart to be prescribed this medication Is the patient prescribed a combination of a benzodiazepine and opioid? No Last Urine Drug Screen / ordered today: Yes Recent Results (from the past 76004 hour(s)) OPIATE/OPIOID/BENZO PRESCRIPTION COMPLIANCE Collection Time: 05/25/21 4:04 PM Result Value Ref Range DRUG SCREEN COMMENT URINE SEE BELOW Creatine, Urine 51.0 mg/dL Amphetamine Screen, Urine PRESUMPTIVE NEGATIVE NEGATIVE Barbiturate Screen, Urine PRESUMPTIVE NEGATIVE NEGATIVE Cannabinoid Screen, Urine PRESUMPTIVE NEGATIVE NEGATIVE Cocaine Screen, Urine PRESUMPTIVE NEGATIVE NEGATIVE PCP Screen, Urine PRESUMPTIVE NEGATIVE NEGATIVE 7-Aminoclonazepam <25 Cutoff <25 ng/mL Alpha-Hydroxyalprazolam <25 Cutoff <25 ng/mL Alpha-Hydroxymidazolam <25 Cutoff <25 ng/mL Alprazolam <25 Cutoff <25 ng/mL Chlordiazepoxide <25 Cutoff <25 ng/mL Clonazepam <25 Cutoff <25 ng/mL Diazepam <25 Cutoff <25 ng/mL Lorazepam <25 Cutoff <25 ng/mL Midazolam <25 Cutoff <25 ng/mL Nordiazepam <25 Cutoff <25 ng/mL Oxazepam <25 Cutoff <25 ng/mL Temazepam <25 Cutoff <25 ng/mL Zolpidem <25 Cutoff <25 ng/mL Zolpidem Metabolite (ZCA) <25 Cutoff <25 ng/mL 6-Acetylmorphine <25 Cutoff <25 ng/mL Codeine <50 Cutoff <50 ng/mL Hydrocodone <25 Cutoff <25 ng/mL Hydromorphone <25 Cutoff <25 ng/mL Morphine Urine <50 Cutoff <50 ng/mL Norhydrocodone <25 Cutoff <25 ng/mL Noroxycodone <25 Cutoff <25 ng/mL Oxycodone <25 Cutoff <25 ng/mL Oxymorphone <25 Cutoff <25 ng/mL Tramadol <50 Cutoff <50 ng/mL O-Desmethyltramadol <50 Cutoff <50 ng/mL Fentanyl <2.5 Cutoff<2.5 ng/mL Norfentanyl <2.5 Cutoff<2.5 ng/mL METHADONE CONFIRMATION,URINE <25 Cutoff <25 ng/mL EDDP <25 Cutoff <25 ng/mL N/A Controlled Substance Agreement: Date of the Last Agreement: 02/09/2023 Reviewed Controlled Substance Agreement including but not limited to the benefits, risks, and alternatives to treatment with a Controlled Substance medication(s). Benzodiazepines: What is the patient's goal of therapy? TO min anxiety and panic attacks so ADLS are easier Is this being achieved with current treatment? yes TRACIE-7: Over the last 2 weeks, how often have you been bothered by any of the following problems? Feeling nervous, anxious, or on edge: 3 Not being able to stop or control worryin Worrying too much about different things: 3 Trouble relaxin Being so restless that it is hard to sit still: 2 Becoming easily annoyed or irritable: 1 Feeling afraid as if something awful might happen: 3 TRACIE-7 Total Score: 17 Activities of Daily Living: Is your overall impression that this patient is benefiting (symptom reduction outweighs side effects) from benzodiazepine therapy? Yes 1. Physical Functioning: Better 2. Family Relationship: Better 3. Social Relationship: Better 4. Mood: Better 5. Sleep Patterns: Better 6. Overall Function: Better Patient Active Problem List Diagnosis AAT (peoui-[id number]) deficiency (CMS/HCC) Anxiety Abnormal EKG Bilateral hand numbness Chronic low back pain Drug-induced constipation Vitamin D deficiency Depression, major, single episode, moderate (CMS/HCC) Elevated ferritin level Elevated LFTs Fatigue Fatty liver disease, nonalcoholic GERD (gastroesophageal reflux disease) Glucose intolerance (impaired glucose tolerance) Shahzad's disease Hepatomegaly High serum fibrinogen History of pulmonary embolism Dilated renal pelvis Hydronephrosis Insomnia secondary to depression with anxiety Iron deficiency anemia Lightheadedness Low back pain with right-sided sciatica Lower extremity edema Lumbar herniated disc Mild mental slowing Morbid obesity (CMS/HCC) BRISEYDA on CPAP Palpitations Generalized anxiety disorder PTSD (post-traumatic stress disorder) Sacroiliitis (CMS/HCC) Ankylosing spondylitis (CMS/HCC) H/O cardiac radiofrequency ablation 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 Negative for chills. HENT: Negative for congestion, rhinorrhea, sinus pain, sore throat and tinnitus. Eyes: Negative for discharge, redness and visual disturbance. Respiratory: Negative for cough, chest tightness, shortness of breath and wheezing. Cardiovascular: Positive for palpitations. Negative for chest pain and leg swelling. Gastrointestinal: Negative for abdominal pain, constipation, diarrhea, nausea and vomiting. Endocrine: Negative for cold intolerance and heat intolerance. Genitourinary: Positive for frequency and urgency. Negative for flank pain. Musculoskeletal: Positive for arthralgias and back pain. Negative for gait problem and neck pain. Skin: Negative for rash and wound. Neurological: Negative for dizziness, tremors, syncope, numbness and headaches. Hematological: Does not bruise/bleed easily. Psychiatric/Behavioral: Positive for dysphoric mood and sleep disturbance. Negative for confusion and suicidal ideas. The patient is nervous/anxious. Past Medical History: Diagnosis Date Abdominal distension (gaseous) Abdominal bloating Abnormal results of thyroid function studies Abnormal thyroid function test Abnormal weight gain Weight gain Dyspnea, unspecified Dyspnea Immunization not carried out because of patient refusal Influenza vaccination declined Palpitations Palpitations Personal history of other diseases of the circulatory system History of hypotension Personal history of other endocrine, nutritional and metabolic disease History of Shahzad thyroiditis Personal history of other mental and behavioral disorders History of anxiety disorder Personal history of other specified conditions History of dizziness Post-traumatic stress disorder, unspecified Post traumatic stress disorder (PTSD) Past Surgical History: Procedure Laterality Date SECTION, CLASSIC 12/02/2016 Section CHOLECYSTECTOMY 12/02/2016 Cholecystectomy ESOPHAGOGASTRODUODENOSCOPY 12/02/2016 Diagnostic Esophagogastroduodenoscopy GASTRIC BYPASS 04/11/2022 LIVER BIOPSY OTHER SURGICAL HISTORY 10/03/2019 Heart surgery TONSILLECTOMY 12/02/2016 Tonsillectomy TUBAL LIGATION 12/02/2016 Tubal Ligation Family History Problem Relation Name Age of Onset Heart attack Father Hyperlipidemia Father Hypertension Father Diabetes Other GRANDPARENT Thyroid disease Other AUNT Social History Tobacco Use Smoking status: Former Types: Cigarettes Smokeless tobacco: Never Vaping Use Vaping Use: Never used Substance Use Topics Alcohol use: Yes Comment: OCCASIONALLY Drug use: Never Allergies Allergen Reactions Citalopram Other Meclizine Other Morphine Other Nadolol Other Penicillin V Hives Bupropion Hcl Rash Hydrocodone-Acetaminophen Itching and Rash Current Outpatient Medications Medication Sig Dispense Refill albuterol 90 mcg/actuation inhaler Inhale 1-2 puffs every 6 hours if needed for wheezing or shortness of breath. aspirin 81 mg chewable tablet Chew 1 tablet (81 mg) once daily. biotin 10 mg tablet Take 1 tablet (10 mg) by mouth once daily. calcium carb/vitamin D3/vit K1 (SOFT CHEWS CALCIUM ORAL) Take by mouth early in the morning.. ergocalciferol, vitamin D2, (VITAMIN D2 ORAL) Take by mouth early in the morning.. furosemide (Lasix) 20 mg tablet Take 1 tablet (20 mg) by mouth once daily as needed (EDEMA). Lactobacillus acidophilus (PROBIOTIC ACIDOPHILUS ORAL) Take 1 tablet by mouth once daily. multivitamin-children's (Flintstones Complete, iron,) chewable tablet Chew 2 tablets once daily. pantoprazole (ProtoNix) 40 mg EC tablet Take 1 tablet (40 mg) by mouth once daily. cyclobenzaprine (Flexeril) 10 mg tablet Take 1 tablet (10 mg) by mouth 2 times a day as needed for muscle spasms. LORazepam (Ativan) 1 mg tablet Take 1 tablet (1 mg) by mouth 3 times a day as needed for anxiety. No current facility-administered medications for this visit. Objective BP 120/64 Pulse 72 Ht 1.651 m (5' 5) Wt 142 kg (314 lb) BMI 52.25 kg/m Physical Exam Vitals reviewed. Constitutional: Appearance: Normal appearance. She is obese. HENT: Head: Normocephalic. Right Ear: External ear normal. Left Ear: External ear normal. Nose: Nose normal. No congestion or rhinorrhea. Mouth/Throat: Mouth: Mucous membranes are moist. Eyes: Extraocular Movements: Extraocular movements intact. Conjunctiva/sclera: Conjunctivae normal. Pupils: Pupils are equal, round, and reactive to light. Cardiovascular: Rate and Rhythm: Normal rate and regular rhythm. Pulses: Normal pulses. Pulmonary: Effort: Pulmonary effort is normal. Breath sounds: Normal breath sounds. Abdominal: General: Bowel sounds are normal. Palpations: Abdomen is soft. Tenderness: There is no abdominal tenderness. There is no right CVA tenderness or left CVA tenderness. Musculoskeletal: General: No tenderness. Normal range of motion. Cervical back: Normal range of motion and neck supple. No tenderness. Skin: General: Skin is warm and dry. Neurological: General: No focal deficit present. Mental Status: She is alert and oriented to person, place, and time. Psychiatric: Mood and Affect: Mood normal. Behavior: Behavior normal. Testing Reviewed labs on file from her specialists Will order gen labs given her pain Impression MDM 1) COMPLEXITY: MORE THAN 1 STABLE CHRONIC CONDITION ADDRESSED 2)DATA: TESTS INTERPRETED AND OR ORDERED, TOOK INDEPENDENT HISTORY OR RECORDS REVIEWED 3)RISK: MODERATE RISK DUE TO NATURE OF MEDICAL CONDITIONS/COMORBIDITY OR MEDICATIONS ORDERED OR SURGICAL OR PROCEDURE REFERRAL, . Reviewed labs and Testing on file Patient to follow diet low in cholesterol, fat, and sodium. Patient is advised to increase Exercise. Patient is recommended to lose weight. Reviewed Meds and discussed common side effects Continue as directed Pain - will order gen labs and consider rheum referral Ativan - updated urine and contract and script given for prn. Discussed trial of abilify or prozac but pt declines at this time and will call if she changes her mind as she would like to worn naturally Urinary symptoms - plans to follow up with ORIENTOR first - discussed pelvic floor thearpy In office urine - WNL - will hold off on sending to culture Patient is strongly advised to be compliant with recommendations. Return to Clinic sooner if needed. Patient denies further questions/concerns at this time Assessment/Plan Problem List Items Addressed This Visit Vitamin D deficiency Depression, major, single episode, moderate (CMS/HCC) Fatty liver disease, nonalcoholic Relevant Orders Anti-DNA Antibody, Double-Stranded CBC and Auto Differential (Completed) Citrulline Antibody, IgG C-Reactive Protein (Completed) Rheumatoid Factor Sedimentation Rate (Completed) Thyroid Stimulating Hormone (Completed) Thyroxine, Free (Completed) Triiodothyronine, Free Hepatic function panel (Completed) Glucose intolerance (impaired glucose tolerance) Shahzad's disease Relevant Orders Thyroid Stimulating Hormone (Completed) Thyroxine, Free (Completed) Triiodothyronine, Free Insomnia secondary to depression with anxiety Class 3 severe obesity due to excess calories with serious comorbidity and body mass index (BMI) of50.0 to 59.9 in adult (CMS/HCC) Palpitations Generalized anxiety disorder - Primary Ankylosing spondylitis (CMS/HCC) Polyarthralgia Relevant Orders Anti-DNA Antibody, Double-Stranded CBC and Auto Differential (Completed) Citrulline Antibody, IgG C-Reactive Protein (Completed) Rheumatoid Factor Sedimentation Rate (Completed) Thyroid Stimulating Hormone (Completed) Thyroxine, Free (Completed) Triiodothyronine, Free Hepatic function panel (Completed) Other Visit Diagnoses Anxiety Relevant Medications LORazepam (Ativan) 1 mg tablet Other Relevant Orders Opiate/Opioid/Benzo Extended Prescription Compliance Medication management Relevant Orders Opiate/Opioid/Benzo Extended Prescription Compliance Urinary incontinence, unspecified type Relevant Orders POCT UA Automated manually resulted (Completed) FU in 1-2 mo with labs and med check [facility] Work Phone: [phone] 475-609605-15-2023 Miscellaneous Notes* Telephone Encounter - Michaela Luevano - 01/09/2023 10:32 AM EDT Call to patient. Pt is scheduled today at 3pm in a cancellation slot. Michaela Luevano * Telephone Encounter - Michaela Luevano - 01/03/2023 1:24 PM EDT Call to patient. She is now scheduled for March 20 and placed on the cancellation list. She would like provider to review her info and see if holter/event monitor is appropriate to order for her in the interim. ([facility] mentioned that she might need this) Please review and advise. Michaela Luevano MA * Telephone Encounter - Michaela Luevano - 01/02/2023 9:26 AM EDT EC referring patient back to Dr. Garay for follow up and Heart Monitor. Pt had ZIO last October. Will check with provider to see if pt needs to have another ZIO or if she can be worked in sooner. Please review and advise. Michaela Luevano MA * Telephone Encounter - Kayleigh Maen Pss - 01/02/2023 8:43 AM EDT Patient calling in stating she was seen in [facility] for heart palpitations, and HR in 50's. Also having dizzy spells. EC thought she should get a holter monitor but wanted her to follow up with her primary substance abuse counselor. First available isn't until July. Please advise. documented [facility] History of Present illness Narrative* Shahid Gamble APRN.HOT WORKER - 01/01/2023 9:23 AM EDT Subjective HPI HPI Curly Cowart is a 37 year old female who presents today for CC of right ear pain, dizziness. This started 2 days ago. Has tried nothing for relief. Symptoms are worsened by position change. Risk factors hx of heart arrhythmia issues and blood clots. Denies possibility of being . nonsmoker .Patient presents with: Dizziness: Dizziness and drainage from ears x 2 days PAST MEDICAL HISTORY Diagnosis Date Wvrqt-8-[id number] deficiency (HCC) Cardiac dysrhythmia, unspecified 2007 Depressive disorder, not elsewhere classified DVT (deep venous thrombosis) (HCC) after PICC line Esophageal reflux Shahzad thyroiditis 04/09/2015 Intestinal disaccharidase deficiencies and disaccharide malabsorption Irritable bowel syndrome Morbid obesity (HCC) stated BMI 47.3 BRISEYDA (obstructive sleep apnea) Other chronic nonalcoholic liver disease Personal history of tobacco use, presenting hazards to health 1/2 ppd x 5 years; quit 08/18/14 - restarted and quit in 2019 Pneumonia due to COVID-19 virus 07/2021 Pulmonary embolism (HCC) after PICC line V-tach (HCC) PAST SURGICAL HISTORY Procedure Laterality Date DELIVERY ONLY 2002 , low cervical CHOLECYSTECTOMY 01/08/2008 EGD 04/2021 EGD 02/2021 LAPAROSCOPIC GASTRECTOMY 04/11/2022 LAPAROSCOPIC UTERINE NERVE ABLATION 2012 LIVER BIOPSY 2008 MIDLINE CATHETER 09/21/2018 PAST SURGICAL HISTORY OF 2009 spring coils in fallopian tubes S BALLOON,UTERINE ABLATION [id number] 2009 SHX CARDIAC RADIOFREQUENCY ABLATION 2018 ventricular TONSILLECTOMY PRIMARY/SECONDARY <AGE 12 2004 Tonsillectomy, wisdom teeth ALLERGIES Bupropion, Citalopram, Hydrocodone-Acetaminophen, Meclizine, Morphine, Nadolol, Penicillins, and Prednisone MEDICATIONS pantoprazole DR (PROTONIX) 40 mg tablet TAKE 1 TABLET BY MOUTH EVERY DAY furosemide (LASIX) 20 mg tablet Take 20 mg by mouth once daily. BIOTIN ORAL Take by mouth once daily. multivit-min/iron/folic acid/K (BARIATRIC MULTIVITAMINS ORAL) Take by mouth once daily. CALCIUM CITRATE ORAL Take by mouth once daily. Lactobac no.41/Bifidobact no.7 (PROBIOTIC-10 ORAL) Take by mouth. venlafaxine ER (EFFEXOR XR) 75 mg 24 hr capsule Take 75 mg by mouth twice daily. LORazepam (ATIVAN) 0.5 mg Take 1 mg by mouth as needed. amitriptyline (ELAVIL) 50 mg tablet Take 50 mg by mouth daily at bedtime. (Patient not taking: Reported on 09/22/2022) oxyCODONE IR (ROXICODONE) 5 mg immediate release tablet Take 1 tablet by mouth every 6 hours as needed. (Patient not taking: No sig reported) ondansetron (ZOFRAN) 4 mg tablet Take 1 tablet by mouth every 8 hours as needed for nausea/vomiting. (Patient not taking: No sig reported) FAMILY HISTORY Problem Relation Age of Onset Anxiety disorder Mother panic attacks Heart Attack Father 54 Heart disease Father coronary stents other (liver disease) Father alpha 1 antitrypsin; has liver transplant other (atrial fibrillation) Father Thyroid Sister Hashimotos Anxiety disorder Sister other (atrial fibrillation) Paternal Grandmother Heart disease Paternal Grandfather heart transplant other (liver failure) Paternal Grandfather Anxiety disorder Sister other (atrial fibrillation) Paternal Uncle other (atrial fibrillation) Paternal Aunt Social History Tobacco Use Smoking status: Former Packs/day: 0.50 Years: 10.00 Pack years: 5.00 Types: Cigarettes Quit date: 2019 Years since quittin.3 Smokeless tobacco: Never Tobacco comments: total quit 2017. currently 5 cigarettes/month Vaping Use Vaping Use: Never used Substance Use Topics Alcohol use: Not Currently Drug use: No Comment: no medical THC card Review of Systems Constitutional: Negative for chills and fever. HENT: Positive for ear discharge and ear pain. Negative for congestion, hearing loss and sore throat. Eyes: Negative for blurred vision, double vision, photophobia, pain, discharge and redness. Respiratory: Negative for cough and shortness of breath. Cardiovascular: Negative for chest pain. Gastrointestinal: Negative for abdominal pain, nausea and vomiting. Musculoskeletal: Negative for myalgias and neck pain. Skin: Negative for rash. Neurological: Positive for dizziness. Negative for tremors, sensory change, speech change, focal weakness and headaches. Psychiatric/Behavioral: Negative for depression. Objective Blood pressure 112/78, pulse 79, temperature 36.9 C (98.5 F), temperature source Tympanic, resp. rate 18, weight 99.3 kg (219 lb), last menstrual period 07/11/2016, SpO2 98 %. Physical Exam Constitutional: General: She is not in acute distress. Appearance: She is not diaphoretic. HENT: Head: Normocephalic and atraumatic. Right Ear: Hearing and external ear normal. Left Ear: Hearing and external ear normal. Ears: Comments: Initially unable to see bilat tm d/t cerumen impaction. Procedure: Provider/curette Successful procedure, after procedure bilat canal clear and TM normal. Eyes: General: Lids are normal. Lids are everted, no foreign bodies appreciated. No scleral icterus. Right eye: No discharge. Left eye: No discharge. Conjunctiva/sclera: Conjunctivae normal. Pupils: Pupils are equal, round, and reactive to light. Neck: Trachea: Trachea normal. Cardiovascular: Rate and Rhythm: Normal rate and regular rhythm. Heart sounds: Normal heart sounds. Pulmonary: Effort: Pulmonary effort is normal. Breath sounds: Normal breath sounds. Musculoskeletal: Cervical back: Normal range of motion and neck supple. Lymphadenopathy: Cervical: No cervical adenopathy. Skin: Findings: No rash. Neurological: Mental Status: She is alert. She is not disoriented. Sensory: Sensation is intact. Gait: Gait is intact. Deep Tendon Reflexes: Reflex Scores: Patellar reflexes are 1+ on the right side and 1+ on the left side. ASSESSMENT/PLAN: 1. Dizziness - ICD9: 780.4, ICD10: R42 Possibly bppv Vestibular exercises discussed F/u with pcp for continued s/s Urgent f/u for any worsening or new s/s. 2. Bilateral impacted cerumen - ICD9: 380.4, ICD10: H61.23 Successful procedure via provider/curette Discussed proper ear hygiene. Shahid Gamble APRN.HOT WORKER documented in this encounter[facility] Instructions* Patient Instructions* JUNE Rodriguez - 11/08/2022 11:57 AM EDT Rest, ice, elevation. Return to ED with new/worsening symptoms. documented in this encounterEast [facility]03-14-[facility]23 History of Present illness Narrative* Leslie Goldman RT(R) - 11/08/2022 11:30 AM EDT Radiology Service Progress Note PATIENT NAME: Curly Cowart DATE OF SERVICE: November 08, 2022 TIME: 11:35 AM PATIENT IDENTITY VERIFICATION COMPLETED USING TWO (2) IDENTIFIERS: Name and Date of confirmedby patient verbally. FALL SCREENING: Has the patient had 2 falls in the last year or 1 fall with injury or currently using an Ambulatory Assistive Device (Walker, Cane, Wheelchair, Crutches, etc.)? No PATIENT GENDER DATA: Female. status: : No status: NO. PATIENT RELEVANT IMPLANT DATA REVIEWED: Yes RADIOLOGY DEPARTMENT: General X-ray: Exam(s) Completed: Lower Extremity X- Ray(s): Foot, Right PERIPHERAL IV DATA: Not applicable SIGNED BY: RT Regine(R) November 08, 2022 11:35 AM documented in this encounterEast [facility] Hospital03-14-2023 History of Present illness Narrative* JUNE Rodriguez - 11/08/2022 11:17 AM EDT Images from the original note were not included. This note was created using NoteWriter. Subjective Curly Cowart is a 37 year old female. HPI 37-year-old female presents for right foot pain. Patient states that she has been having foot pain on the dorsum of her right foot for the past few weeks or so. She cannot recall an injury. States she is moving and going up and down stairs and unsure if she injured it during the moving process,but cannot recall specific injury. States pain is worse with walking and movement. No pain on the bottom of her foot. No history of diabetes. No history of gout. No bruising or swelling. No numbness or tingling in the foot. No calf pain or swelling. 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 Irritable bowel syndrome Morbid obesity (HCC) stated BMI 47.3 BRISEYDA (obstructive sleep apnea) Other chronic nonalcoholic liver disease Personal history of tobacco use, presenting hazards to health 1/2 ppd x 5 years; quit 08/18/14 - restarted and quit in 2019 Pneumonia due to COVID-19 virus 07/2021 Pulmonary embolism (HCC) after PICC line V-tach (HCC) PAST SURGICAL HISTORY Procedure Laterality Date DELIVERY ONLY 2003 , low cervical CHOLECYSTECTOMY 01/08/2008 EGD 04/2021 EGD 02/2021 LAPAROSCOPIC GASTRECTOMY 04/11/2022 LAPAROSCOPIC UTERINE NERVE ABLATION 2012 LIVER BIOPSY 2008 MIDLINE CATHETER 09/21/2018 PAST SURGICAL HISTORY OF 2009 spring coils in fallopian tubes S BALLOON,UTERINE ABLATION [id number] 2009 SHX CARDIAC RADIOFREQUENCY ABLATION 2018 ventricular TONSILLECTOMY PRIMARY/SECONDARY <AGE 12 2004 Tonsillectomy, wisdom teeth ALLERGIES Bupropion, Citalopram, Hydrocodone-Acetaminophen, Meclizine, Morphine, Nadolol, Penicillins, and Prednisone MEDICATIONS pantoprazole DR (PROTONIX) 40 mg tablet TAKE 1 TABLET BY MOUTH EVERY DAY furosemide (LASIX) 20 mg tablet Take 20 mg by mouth once daily. BIOTIN ORAL Take by mouth once daily. multivit-min/iron/folic acid/K (BARIATRIC MULTIVITAMINS ORAL) Take by mouth once daily. CALCIUM CITRATE ORAL Take by mouth once daily. Lactobac no.41/Bifidobact no.7 (PROBIOTIC-10 ORAL) Take by mouth. venlafaxine ER (EFFEXOR XR) 75 mg 24 hr capsule Take 75 mg by mouth twice daily. LORazepam (ATIVAN) 0.5 mg Take 1 mg by mouth as needed. amitriptyline (ELAVIL) 50 mg tablet Take 50 mg by mouth daily at bedtime. (Patient not taking: Reported on 09/22/2022) oxyCODONE IR (ROXICODONE) 5 mg immediate release tablet Take 1 tablet by mouth every 6 hours as needed. (Patient not taking: No sig reported) ondansetron (ZOFRAN) 4 mg tablet Take 1 tablet by mouth every 8 hours as needed for nausea/vomiting. (Patient not taking: No sig reported) FAMILY HISTORY Problem Relation Age of Onset Anxiety disorder Mother panic attacks Heart Attack Father 54 Heart disease Father coronary stents other (liver disease) Father alpha 1 antitrypsin; has liver transplant other (atrial fibrillation) Father Thyroid Sister Hashimotos Anxiety disorder Sister other (atrial fibrillation) Paternal Grandmother Heart disease Paternal Grandfather heart transplant other (liver failure) Paternal Grandfather Anxiety disorder Sister other (atrial fibrillation) Paternal Uncle other (atrial fibrillation) Paternal Aunt Social History Tobacco Use Smoking status: Former Packs/day: 0.50 Years: 10.00 Pack years: 5.00 Types: Cigarettes Quit date: 2019 Years since quittin.2 Smokeless tobacco: Never Tobacco comments: total quit 2017. currently 5 cigarettes/month Vaping Use Vaping Use: Never used Substance Use Topics Alcohol use: Not Currently Drug use: No Comment: no medical THC card Review of Systems Constitutional: Negative for chills and fever. HENT: Negative for congestion, ear pain and sore throat. Respiratory: Negative for cough and shortness of breath. Cardiovascular: Negative for chest pain. Gastrointestinal: Negative for diarrhea and vomiting. Musculoskeletal: Positive for arthralgias (R foot pain). Neurological: Negative for numbness. Objective BP 118/76 Pulse 72 Temp 36.8 C (98.3 F) (Tympanic) Resp 18 Wt (!) 152.5 kg (336 lb 3.2 oz) LMP 07/11/2016 SpO2 97% BMI 54.26 kg/m Physical Exam Vitals and nursing note reviewed. Constitutional: General: She is not in acute distress. Appearance: Normal appearance. She is not toxic-appearing. Cardiovascular: Rate and Rhythm: Normal rate and regular rhythm. Pulmonary: Effort: Pulmonary effort is normal. Breath sounds: Normal breath sounds. Musculoskeletal: Right foot: Normal range of motion. Tenderness and bony tenderness present. No swelling or deformity. Legs: Comments: Tenderness over dorsum of right midfoot as above on photo. No swelling. No bruising. No deformity. Normal ROM right ankle, right foot. Normal strength. Able to move all digits. Normal sensation right lower extremity. No calf pain or swelling. No ankle pain. No skin color changes, ulcers or wounds. Skin: General: Skin is warm and dry. Neurological: Mental Status: She is alert. Assessment and Plan ASSESSMENT/PLAN: 1. Foot pain, right - ICD9: 729.5, ICD10: M79.671 - XR FOOT GENERAL 3V AP/LAT/OBL RIGHT -XR no acute findings. - Recommend ice, compression, elevation, Tylenol/Motrin as needed for pain - Follow-up with PCP if symptoms or not improving Diagnosis and treatment plan were discussed and questions were answered to the patient's satisfaction. Pt acknowledged understanding of concepts and follow up plan. Specific signs and symptoms that would indicate the need for higher level of care were discussed in detail warranting prompt ER evaluation. JUNE Rodriguez documented in this encounterEast [facility]02-[facility]-2023 Chief complaint Narrative - Reported* An interactive audio and video telecommunication system which permits real time communications between the patient (at the originating site) and provider (at the distant site) was utilized to providethis telehealth service. * Verbal consent was requested and obtained from CURLY COWART on this date, 10/17/2022 10:00 AM , for a telehealth visit. * POS HOME COVID TEST THIS MORNING. C/O MCKINNEY,COUGH, PALPITATIONS, SINUS CONGESTION, RUNNY NOSE, SORE THROAT. [facility] Work Phone: [phone] 512-772202-16-2023 History of Present illness Narrative* Patient presents today for.... * 1 COVID- symptoms started /mondayoct 13 * MCKINNEY * cough * ST * rhionrrhea * palp * sinus congestion * mild nausea * no diarrhea, vomiting, fever, loss of taste/smell * pos test this AM - 10/17/22 * 2 Med check * anxiety - on effexor, elavil and ativan prn -- has stopped elavil. She is wanting to cut down on effexor so will taper to 75 mg daily x 2 + weeks and then every other day for 2 + weeks to d/c as tolerated * pt has tried about everything she believes other than prozac (she believes as far as SSRI and SNRI) * she has tried wellbutrin and little relief * she denies trying abilify in the past * known depression - she states is stable at this time with her meds * synthroid - currently not on meds and most recent labs are WNL - she states she was cleared by the endo at this time * HTN /LE edema - HCTZ changed to lasix and is needing it on occasion - typically daily at this time * GERD - stable on PPI - * elevated LFT - following with specialists * elevated ferritin - has followed with specialists and states no further work up indicated no concern at that time- she believes her ferritin if further elevated post covid which I explained is commonly seen. Level has improved since bariatric Surgery * post op Bariatric status - Apr 11 - Basic labs post op were completed [facility] ([facility]) and states all were well (CBC, BMP, liver panel, ferritin, iron, folate, PTH, B vitamins, vit D. Labs are being done periodically and cont to follow up with the surgeon * 3 Preventative Testing * mammo - suggest age 40 * DEXA - suggest age 50-55 * colonoscopy - suggest age 45-50 * PAP * OARRS Report Last Screening Date: 03/30/2022 * I have personally reviewed the OARRS report for CURLY COWART. I have considered the risks of abuse, dependence, addiction and diversion. * Last urine drug screening date/ordered today: 05/25/2021 * Date of the last Controlled Substance Agreement: 05/25/2021 [facility] Work Phone: [phone] Miscellaneous Notes* Telephone Encounter - Saranya Breaux RN - 10/10/2022 11:23 AM EST I called the patient to relay information from Marjan. She is going to get the labs done today and will contact her GI regarding the liver pain. I did advise her to go to the ED if the pain becomes severe or her symptoms worsen. She verbalized understanding. Saranya Breaux RN October 10, 2022 11:24 AM * Addendum Note - Marjan Eddy APRN.CNP - 10/10/2022 11:18 AM ESTAddended by: MARJAN EDDY on: 10/10/2022 11:18 AM Modules accepted: Orders * Telephone Encounter - Marjan Eddy APRN.CNP - 10/10/2022 11:15 AM EST She sees GI for her known liver issues. Please have her follow up with them. If pain is getting worse, she should go to the ED. Please schedule her for 6 month post-op appointment so that we can assess her symptoms further. If she is falling behind on fluids or feels dehydrated (< 48 oz per day) please have her let us know. I will put in an order for bariatric labs to be done to ensure she does not have any deficiencies. Marjan Eddy APRN.SWATI * Telephone Encounter - Saranya Breaux RN - 10/10/2022 8:23 AM EST Patient called in with complaint of nausea, liver pain and overall not feeling well. She states she has cramping like she might have to use the bathroom but has not. She has had a cholecystectomy. No vomiting. She reports that she has been getting her fluids but fell short on her protein over thelast 2 days. She is going to try to meet that protein goal today. She is 6 months post op sleeve gastrectomy (04/11/22). She is due for a 6 month post op visit as well. Saranya Breaux RN October 10, 2022 8:26 AM documented in this encounterEast [facility]01-26-2023 History of Present illness Narrative* Delfin Jain, AIR EXPORT COORDINATOR.HOT WORKER - 09/22/2022 1:38 PM EST CC: Patient presents with: Cough: Pt reported chest congestion, intermittent SOB, x1 wk. HPI: Curly Cowart is a 37 year old female who presents to the office with complaint of head congestion, cough, nonproductive, sore throat, and sinus symptoms for a week. Symptoms are worsening Associated symptoms includes cough and dyspnea. Denies fever, nausea, vomiting , and diarrhea. Treatments tried include nothing so far. with no relief of symptoms. Sick contacts: unknown. History of asthma, frequent episodes of bronchitis, chronic bronchitis, bronchiectasis or COPD: No Smoker: No Seasonal/environmental allergies: No The ROS is otherwise negative. The patient's pmh, medications, allergies, and past visits are reviewed. PHYSICAL EXAM: BP 128/76 Pulse 99 Temp 36.9 C (98.4 F) (Tympanic) Resp 22 Wt (!) 156.6 kg (345 lb 3.2 oz) LMP 07/11/2016 SpO2 98% BMI 55.72 kg/m General appearance: alert, cooperative, pleasant, in no acute distress Head: Normocephalic Eyes: EOM's intact, conjunctiva pink and moist, no icterus, sclera white, non-injected Ears: Right ear: External ear/canal- Normal, TM - clear with good landmarks. Left ear: External ear/canal- Normal, TM - clear with good landmarks Oropharynx:moist without lesions, No erythema, exudates or tonsillar hypertrophy. Heart: Negative. RRR without obvious murmur, gallop, or rubs. No ectopy. 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 Irritable bowel syndrome Morbid obesity (HCC) stated BMI 47.3 BRISEYDA (obstructive sleep apnea) Other chronic nonalcoholic liver disease Personal history of tobacco use, presenting hazards to health 1/2 ppd x 5 years; quit 08/18/14 - restarted and quit in 2019 Pneumonia due to COVID-19 virus 07/2021 Pulmonary embolism (HCC) after PICC line V-tach PAST SURGICAL HISTORY Procedure Laterality Date DELIVERY ONLY 2002 , low cervical CHOLECYSTECTOMY 01/08/2008 EGD 04/2021 EGD 02/2021 LAPAROSCOPIC GASTRECTOMY 04/11/2022 LAPAROSCOPIC UTERINE NERVE ABLATION 2011 LIVER BIOPSY 2008 MIDLINE CATHETER 09/21/2018 PAST SURGICAL HISTORY OF 2009 spring coils in fallopian tubes S BALLOON,UTERINE ABLATION [id number] 2009 SHX CARDIAC RADIOFREQUENCY ABLATION 2018 ventricular TONSILLECTOMY PRIMARY/SECONDARY <AGE 12 2003 Tonsillectomy, wisdom teeth ALLERGIES Bupropion, Citalopram, Hydrocodone-Acetaminophen, Meclizine, Morphine, Nadolol, Penicillins, and Prednisone MEDICATIONS pantoprazole DR (PROTONIX) 40 mg tablet TAKE 1 TABLET BY MOUTH EVERY DAY venlafaxine ER (EFFEXOR XR) 75 mg 24 hr capsule Take 75 mg by mouth twice daily. amitriptyline (ELAVIL) 50 mg tablet Take 50 mg by mouth daily at bedtime. (Patient not taking: Reported on 09/22/2022) furosemide (LASIX) 20 mg tablet Take 20 mg by mouth once daily. BIOTIN ORAL Take by mouth once daily. multivit-min/iron/folic acid/K (BARIATRIC MULTIVITAMINS ORAL) Take by mouth once daily. CALCIUM CITRATE ORAL Take by mouth once daily. oxyCODONE IR (ROXICODONE) 5 mg immediate release tablet Take 1 tablet by mouth every 6 hours as needed. (Patient not taking: No sig reported) ondansetron (ZOFRAN) 4 mg tablet Take 1 tablet by mouth every 8 hours as needed for nausea/vomiting. (Patient not taking: No sig reported) Lactobac no.41/Bifidobact no.7 (PROBIOTIC-10 ORAL) Take by mouth. LORazepam (ATIVAN) 0.5 mg Take 1 mg by mouth as needed. FAMILY HISTORY Problem Relation Age of Onset Anxiety disorder Mother panic attacks Heart Attack Father 54 Heart disease Father coronary stents other (liver disease) Father alpha 1 antitrypsin; has liver transplant other (atrial fibrillation) Father Thyroid Sister Hashimotos Anxiety disorder Sister other (atrial fibrillation) Paternal Grandmother Heart disease Paternal Grandfather heart transplant other (liver failure) Paternal Grandfather Anxiety disorder Sister other (atrial fibrillation) Paternal Uncle other (atrial fibrillation) Paternal Aunt Social History Tobacco Use Smoking status: Former Packs/day: 0.50 Years: 10.00 Pack years: 5.00 Types: Cigarettes Quit date: 2019 Years since quittin.0 Smokeless tobacco: Never Tobacco comments: total quit 2016. currently 5 cigarettes/month Vaping Use Vaping Use: Never used Substance Use Topics Alcohol use: Not Currently Drug use: No Comment: no medical THC card ASSESSMENT/PLAN: 1. Acute cough - ICD9: 786.2, ICD10: R05.1 - XR CHEST 2V FRONTAL/LAT * * * * Physician Interpretation * * * * EXAMINATION: CHEST RADIOGRAPH (2 VIEW FRONTAL & LATERAL) CLINICAL HISTORY: Acute cough MQ: [id number] EXAM DATE/TIME: 09/22/2022 1:46 PM COMPARISON: Chest x-ray on 12/19/2020 RESULT: Lines, tubes, and devices: None. Lungs and pleura: No consolidation. No lung mass. No pleural effusion. No pneumothorax. Cardiomediastinal silhouette: Normal cardiomediastinal silhouette. Bones and soft tissues: Unremarkable. IMPRESSION IMPRESSION: No acute radiographic abnormality. Doxycycline twice a day for 7 days. Prescription instructions reviewed with patient as applicable. Potential red flag symptoms discussed with the patient. Reviewed appropriate action plan to take if red flag symptoms occur. Patient agreeable to treatment plan. Delfin Jain APRN.CNP documented in this encounterEast [facility]01-22-2023 History of Present illness Narrative* VIRTUAL VISIT DUE TO COVID19 . * COUGH WITH CHEST CONGESTION AND SOB ON EXERTION X 4 DAYS . HAD NEGATIVE HOME COVID TEST 3 DAYS AGO.DIDN'T GET THE COVID VACCINES. [facility] Work Phone: [phone] Chief complaint Narrative - Reported* An interactive audio and video telecommunication system which permits real time communications between the patient (at the originating site) and provider (at the distant site) was utilized to providethis telehealth service. * Verbal consent was requested and obtained from CURLY COWART on this date, 08/31/2022 08:40 AM , for a telehealth visit. * Pt vv for er f/u pleurisy-shaun. States she still feels SOB occasionally and chest pain. Serves no further complaints [facility] Work Phone: [phone]) 658-944112-21-2022 History of Present illness Narrative* Patient presents today for.... * 1 follow up [facility] ER about 2 weeks ago for pleurisy * pt states they did not give her any meds but sent her home- work up was ok * she cont to note some symptoms of CP and SOB * she recently was rx prednisone for another reason but had a more serious allergic reaction so was not given prednisone * she recently had bariatric surgery so cannot take NSAID * she does have flexeril but denies taking them * she does admit to some illness symptoms as well - nasal congestion, rhionrrhea and maybe this is more of infectious induced pleurisy - she deneis being on ABx recently * she does admit to more stress- nephew was in serious car accident and life flighted - broke his neck and back * 2 Med check * anxiety - on effexor, elavil and ativan prn -- has stopped elavil. She is wanting to cut down on effexor so will taper to 75 mg daily x 2 + weeks and then every other day for 2 + weeks to d/c as tolerated * pt has tried about everything she believes other than prozac (she believes as far as SSRI and SNRI) * she has tried wellbutrin and little relief * she denies trying abilify in the past * known depression - she states is stable at this time with her meds * synthroid - currently not on meds and most recent labs are WNL - she states she was cleared by the endo at this time * HTN /LE edema - HCTZ changed to lasix and is needing it on occasion - typically daily at this time * GERD - stable on PPI - * elevated LFT - following with specialists * elevated ferritin - has followed with specialists and states no further work up indicated no concern at that time- she believes her ferritin if further elevated post covid which I explained is commonly seen. Level has improved since bariatric Surgery * post op Bariatric status - Apr 11 - Basic labs post op were completed [facility] ([facility]) and states all were well (CBC, BMP, liver panel, ferritin, iron, folate, PTH, B vitamins, vit D. Labs are being done periodically and cont to follow up with the surgeon * 3 review labs * 4 Preventative Testing * mammo - suggest age 40 * DEXA - suggest age 50-55 * colonoscopy - suggest age 45-50 * PAP * OARRS Report Last Screening Date: 03/30/2022 * I have personally reviewed the OARRS report for CURLY COWART. I have considered the risks of abuse, dependence, addiction and diversion. * Last urine drug screening date/ordered today: 05/25/2021 * Date of the last Controlled Substance Agreement: 05/25/2021 -[facility] Work Phone: [phone] 119-799112-19-2022 Miscellaneous Notes* Telephone Encounter - Miguel Salgado APRN.CNP - 08/15/2022 3:41 PM EST No other recommendations for patient from a bariatric standpoint. This is something that should continue to be managed by her PCP. Please have her continue to follow up with her PCP for this. Miguel Salgado APRN.CNP documented in this encounterEast [facility] Hospital11-15-2022 Miscellaneous Notes* Telephone Encounter - Janett Harris-Nurse - 07/12/2022 9:10 AM EST Called to schedule for 6 mo p/o appt. No answer, LVM 6 Month P/O- -SLEEVE 04/11/2022 documented in this encounterEast [facility] Hospital11-15-2022 History of Present illness Narrative* Marjan Eddy APRN.HOT WORKER - 07/12/2022 8:32 AM EST BARIATRIC SURGERY CLINIC FOLLOW UP NOTE DISTANCE HEALTH VISIT This Team Access Model visit is a virtual encounter. It required patient- provider interaction for the medical decision making as documented below. Consent was obtained to complete today's distance health visit. Name: Curly Cowart Index Surgery Date of Surgery: 04/11/2022 Surgeon: Dr. Rosas Surgical Procedure: Sleeve gastrectomy Pre-surgical weight: 406 lb Other Bariatric Surgeries None Visit: 3 month Today's Visit: Wt 148.8 kg (328 lb) BMI 52.94 kg/m2 BMI 52.94 kg/(m^2) Last Visit: Wt: 148.8 kg (328 lb) BMI: 52.94 kg/(m^2) Total weight loss: 78 lb [place] weight: 70.3 kg (154 lb 14.5 oz) Excess weight: 252 lb % of excess body weight lost: 30.9% COMPLICATIONS SINCE LAST VISIT?: NONE DIET INTAKE: Phase III Curly is doing great. She is meeting fluid and protein goals consistently. She denies nausea, vomiting, abdominal pain, diarrhea, constipation, acid reflux symptoms. She is taking vitamins and medications as directed. She is exercising regularly by riding her stationary bike, walking, and doing exercise videos. She is very happy with her progress and overall improvement in daily living. DAILY SUPPLEMENTS: See RD note Other: N/A EXERCISE: stationary bike 6-7 days per week Are you attending any Support Groups? No attendance HISTORY REVIEWED (electronic chart updated): - medical history - medications - allergies Current Outpatient Medications Medication Sig amitriptyline (ELAVIL) 50 mg tablet Take 50 mg by mouth daily at bedtime. furosemide (LASIX) 20 mg tablet Take 20 mg by mouth once daily. BIOTIN ORAL Take by mouth once daily. pantoprazole DR (PROTONIX) 40 mg tablet TAKE 1 TABLET BY MOUTH EVERY DAY multivit-min/iron/folic acid/K (BARIATRIC MULTIVITAMINS ORAL) Take by mouth once daily. CALCIUM CITRATE ORAL Take by mouth once daily. Lactobac no.41/Bifidobact no.7 (PROBIOTIC-10 ORAL) Take by mouth. venlafaxine ER (EFFEXOR XR) 75 mg 24 hr capsule Take 75 mg by mouth twice daily. LORazepam (ATIVAN) 0.5 mg Take 1 mg by mouth as needed. oxyCODONE IR (ROXICODONE) 5 mg immediate release tablet Take 1 tablet by mouth every 6 hours as needed. (Patient not taking: No sig reported) ondansetron (ZOFRAN) 4 mg tablet Take 1 tablet by mouth every 8 hours as needed for nausea/vomiting. (Patient not taking: No sig reported) No current facility-administered medications for this visit. REVIEW OF SYSTEMS: Denies nausea, vomiting, dumping syndrome, reactive hypoglycemia, gustatory rhinorrhea, Denies abdominal pain, constipation, diarrhea, melena, hematochezia, Denies paresthesias, gait abnormality, fatigue, weakness, lower extremity edema PHYSICAL EXAM: Ht 167.6 cm (5' 6) Wt (!) 148.8 kg (328 lb) LMP 07/11/2016 BMI 52.94 kg/m GENERAL APPEARANCE: Pleasant, interacts appropriately and in no apparent distress Appropriately groomed, happy, smiling, and interactive. ENT: Oral mucosa pink without lesions/ulcerations; LUNGS: unlabored on room air negative findings: normal respiratory rate and rhythm, no cough ABDOMEN: Obese SKIN: Skin of normal texture, temperature without rashes/lesions/ulcerations. NEURO/PSYCH: Oriented to person, place, time; appropriate insight and judgement. Appropriate affect. ASSESSMENT AND PLAN: Normal post-OP course DISPOSITION: Return 3 month to EST/Standard office visit EDUCATION: Encouraged to continue with healthy lifestyle changes and incorporate cardiovascular andresistance training, Discussed weight loss expectations after bariatric and metabolic surgery, Advised PT to avoid NSAIDs, smoking tobacco given increased risk of marginal ulcers, or Discussed importance of protein intake as per the RDN note REFERRALS: N/A LABS: Today: Reviewed, elevated alk phos - deferring to gastroenterology (was not fasting for hepatic panel so could be falsely elevated) In 3 months: See Epic Orders ASSESSMENT/PLAN: 1. S/P laparoscopic sleeve gastrectomy - ICD9: V45.86, ICD10: Z98.84 (primary diagnosis) - She is at 30.5% EWL which is within the predicted trajectory at this point post-op. She is maintaining a healthy lifestyle and exercising regularly. She is feeling great and very happy with her progress thus far - Continue PPI - BASIC METABOLIC PNL - CBC - FERRITIN BLD - FOLATE SERUM - IRON + TIBC - PTH INTACT BLD - VITAMIN B1 (THIAMINE), WHOLE BLOOD - VITAMIN B12 BLOOD - VITAMIN D 25 HYDROXY 2. Elevated liver enzymes - ICD9: 790.5, ICD10: R74.8 - Continue follow up with gastroenterology - was not fasting for hepatic panel so could be falsely elevated but either way, there is improvement since weight loss. Marjan Eddy APRN.HOT WORKER Total time in direct patient contact = 20 min. Greater than 50% of the time was spent in counselingand/or coordination of care. Medical Decision Making: Problems: Moderate: 2+ stable chronic illnesses Data: Unique test result(s) reviewed: 1 Unique test(s) ordered: 1 Risk: Minimal: Minimal risk from testing/treatment Medical Decision Making Level: 3 - Low documented in [facility] History of Present illness Narrative* Audrey Spivey RD - 07/12/2022 7:46 AM EST 3 Month Post-op--Visit conducted via [employer] (audio and visual) d/t COVID 19 Curly Cowart 37 year old female Ht 167.6 cm (5' 6) Wt (!) 148.8 kg (328 lb) LMP 07/11/2016 BMI 52.94 kg/mper pt report SG 04/11/22 Mylene 77# lost since surgery 31%EWL based on IBW w/ BMI 25 Final pre-surg wt: 405# Tolerating by mouth well: Yes Nausea: Yes--occasionally, does report less sleep, taking vitamins/pills without having protein shake, less than 1x/week Vomiting: No Constipation: No Diarrhea:No Weak/Shaky/Light-headed: occasionally, very rare, <5 times occurrence since surgery--does believe related to less water intake Estimated Nutrient Intake: Average of 3 days food records: Yes 24 hour recall/Usual intake: Yes Estimated Intake per below: 64 protein (g) 1.1 g/KgIBW 78 liquid intake (oz) Diet advancement/meal pattern reviewed: Yes Food/bevearge information: phase 5 diet Exercise: formal exercise 6 days per week of 30-45 minutes of cycling, VR workout and occasional walking--breaking a sweat--increased heart rate--will break into 2, 15 minute intervals 24 hr recall: B: protein shake L: 3 meatballs, 1 slim james D: 1/2 of chicken salad (had about 4oz chicken), shredded cheese, small amount of mustard, 2 slicesof mini pepper lynne squares S: none F: 64oz goal P: 74g P: 56g (low day, up with grandmother at night), 56g (forgot to get protein shake before leaving thehouse), 71g --pt reports meeting at least 6-7 days per week F: 72oz, 80oz, 96oz Intake of obesity endorsing foods: does report small spoonfuls, 1 time per week Frequent grazing: will have planned snack 2x/week, between B/L--string cheese, small slim james, a few pretzels with cheese--once done with snack, does not go back Satiety between meals: yes Attendance at support group: encouraged attendance Vitamins--per manual: MVI: [employer] health bariatric with 18mg iron, morning B12: 1000mcg included in above Calcium Citrate: bariatric fusion soft chews, 500mg, 3, split up throughout the day Iron: 18mg included in MVI Thiamin: reviewed need of 12mg/day--meeting Zinc: reviewed need of 15mg/day--meeting Vitamin D: reviewed need of 3,000IU/day--meeting Written information provided and reviewed: journal support group schedule Advance to phase 5 diet Reinforced Behaviors :vitamin schedule healthy food choices journal Pt is maintaining a food journal daily, Blast Ramp joanna. Pt presents 2 months post SG. Within anticipated %EWL range, overall doing very well. Meeting exercise goals, meeting vitamin recs, does report typically consuming protein goal at least 6+ days per week, do note 2 days in recall slightly below goal in which she reports skipped meal/caring for grandmother at night. Meeting fluid goals daily. Is tolerating current phase diet, phase 4, well. Does report minimal intake of caffeine, anticipate <4oz per serving, and not daily--reviewed adjusted caffeine/fluid intake as reference. Discussed phase 5 diet and advancing. Pt does report avoiding triggers, ie. All FF meals and carbonation (Dr. Benson). Goals: Goals advance to phase 5 diet per manual (protein + vegetables + fruits/complex carbs) formal exercise 5-7x/week for 30 minutes OR 150 min/week (walking, chair exercises, HASFIT youtube videos)--consider 10 minute intervals journal daily and bring to all appointments--maintain at least 5-7x/week meet 60-90g protein and 64oz of fluids per day Plan: see RD at 1 year post-op Total time in direct patient contact = 33 min. Greater than 50% of the time was spent in counselingand/or coordination of care. Audrey Spivey RD This note was generated using voice recognition technology and may contain grammatical errors. documented in this encounterEast [facility]11-07-[facility]22 Miscellaneous Notes* Addendum Note - Miguel Salgado APRN.CNP - 2022 10:52 AM ESTAddended by: MIGUEL SALGADO on: 2022 10:52 AM Modules accepted: Orders * Telephone Encounter - Johanny Wilkins MA - 2022 8:31 AM EST Please advise if you would be okay with adding this lab. Johanny Wilkins MA 2022 8:32 AM documented in this encounterEast [facility]10-[facility]22 History of Present illness Narrative* Amirah Flores RD - 06/03/2022 10:00 AM EDT 7 Week Post-Op This patient encounter was completed virtually due to COVID-19 (audio/visual) using a secure, HIPPAcompliant video chat software program with the patient's consent. Surgery Date/Surgeon:04/11/22 RADHA, Dr. Mylene Cowart 36 year old female Wt (!) 159.7 kg (352 lb) LMP 07/11/2016 BMI 56.81 kg/m 53# lost since surgery 21%EWL based on IBW w/ BMI 25 Pre-surgical weight: 405 lbs Tolerating by mouth well: Yes Nausea: No Vomiting: No Constipation: No Diarrhea:No Weak/Shaky/Light-headed: No Reports getting more headaches this past week but feels that this is due to stress/poor sleep, denies symptoms of dehydration - does have dry mouth occasionally Estimated Nutrient Intake Average of 3 days' food records: Yes 24 hour recall/Usual intake: Yes 24 hr recall: 06/02 B: syriac yogurt (20g) L: chicken salad - ~(21g) + cheese cubes (7 - 7g) D: chicken salad - ~(21g) + cheese cubes (7 - 7g) F: 76 oz Per recall:per pt 65g - 76g per RD 60-80g protein (g) 64-70 oz oz liquid intake (oz) Diet advancement/meal pattern reviewed: Yes - phase IV Food/beverage intolerance: vitamin (chewables) Exercise: workout daily - cycling (20min -- 2 miles) + VR workouts (30min) 45-50 minutes 6 days perweek Attendance at support group: not at this time, her sister also had surgery Vitamins: MVI: Scour Prevention bariatric with 18mg iron capsule - did recommend opening capsule into UNS applesauce B12: 1000mcg included in above Calcium Citrate: increased to 3 per day - in divided doses (bariatric fusion soft chews) Iron: needs 18mg/day--meeting Thiamin: reviewed need of 12mg/day--meeting Zinc: reviewed need of 15mg/day--meeting Vitamin D: reviewed need of 3,000IU/day--meeting Tolerating well and meeting goals at this time. Written information provided and reviewed: protein food sources journal support group schedule Reinforced behaviors:portion control eating slowly increase fluid intake vitamin schedule attend support group meetings avoid caffeine Patient presents 7 weeks s/p, tolerating current diet phase well. Verbalized that she is still keeping a food journal, per 24 hr patient meeting protein and fluid goals. Does report afternoon headaches and dry mouth but does not feel that she is dehydrated -- has denied all other symptoms. Recommended that the patient add in SF electrolyte beverage in the afternoon to maintain hydration status/potentially prevent dehydration. Advised patient to monitor fluid status and to ac the office immediately if she is unable to get in more than 35-40 oz per day. Is exceeding 150 min of activity per week via bike riding and her VR workouts -- encouraged to continue as tolerated. Post op vitamins reviewed, meeting goals and tolerating well. Advised patient to open capsule into small amount of UNS applesauce instead of taking capsule whole at this time. Congratulated patient on weight loss progress thus far, exceeding projections for 1 month s/p LSG at 21% EWL. Reviewed phase IV recommendations/guidelines with patient via bariatric manual, will advance at 8 weeks post op. Plan: follow up with RD at 3 months post op Goals advance to phase 4 diet at 8 weeks post op formal exercise 5-7x/week for 30 minutes OR 150 min/week (walking, chair exercises, HASFIT youtube videos)--consider 10 minute intervals journal daily and bring to all appointments--maintain at least 5-7x/week meet 60-90g protein and 64oz of fluids per day Scour Prevention bariatric 18mg iron in the morning + 2.5-3, 500mg calcium citrate soft chews split between lunch and dinner Total time in direct patient contact = 20 min. Greater than 50% of the time was spent in counselingand/or coordination of care. Amirah Flores RD This note was generated using voice recognition technology and may contain grammatical errors. documented in this encounterEast [facility]10-06-2022 Miscellaneous Notes* Telephone Encounter - Janett Harris-Nurse - 06/02/2022 10:01 AM EDT Called to schedule 3 Mo P/O , vm full unable to leave message documented in this encounterEast [facility]10-06-2022 History of Present illness Narrative* Marjan Eddy, AIR EXPORT COORDINATOR.HOT WORKER - 06/02/2022 9:34 AM EDT BARIATRIC SURGERY CLINIC FOLLOW UP NOTE DISTANCE HEALTH VISIT This Team Access Model visit is a virtual encounter. It required patient- provider interaction for the medical decision making as documented below. Consent was obtained to complete today's distance health visit. Name: Curly Cowart Index Surgery Date of Surgery: 04/11/2022 Surgeon: Dr. Rosas Surgical Procedure: Sleeve gastrectomy Pre-surgical weight: 406 lb Other Bariatric Surgeries None Visit: 6 weeks Today's Visit: Wt 159.7 kg (352 lb) BMI 56.81 kg/m2 BMI 56.81 kg/(m^2) Last Visit: Wt: 176 kg (388 lb) BMI: 62.62 kg/(m^2) Total weight loss: 54 lb [place] weight: 70.3 kg (154 lb 14.5 oz) Excess weight: 252 lb % of excess body weight lost: 21.4% COMPLICATIONS SINCE LAST VISIT?: NONE DIET INTAKE: Phase III Curly is doing great. She is meeting fluid and protein goals without difficulty. She denies nausea, vomiting, diarrhea, constipation, acid reflux symptoms, dysphagia-like symptoms, melena, BRBPR. She is taking vitamins and medications as directed. She has been riding her bike outside for exercise. DAILY SUPPLEMENTS: Calcium: Calcium Citrate w/ vitamin D (1200 - 1500mg) Multivitamin & Minerals: 1 per day- Scour Prevention 18 capsule Iron Supplement: 18mg in MVI Vitamin B12: included in multivitamin Biotin: No Vitamin C: included in multi-vitamin Vitamin D3: included in multi-vitamin Other: N/A EXERCISE: cycling Are you attending any Support Groups? No attendance HISTORY REVIEWED (electronic chart updated): - medical history - medications - allergies Current Outpatient Medications Medication Sig furosemide (LASIX) 20 mg tablet Take 20 mg by mouth once daily. BIOTIN ORAL Take by mouth once daily. pantoprazole DR (PROTONIX) 40 mg tablet TAKE 1 TABLET BY MOUTH EVERY DAY multivit-min/iron/folic acid/K (BARIATRIC MULTIVITAMINS ORAL) Take by mouth once daily. CALCIUM CITRATE ORAL Take by mouth once daily. Lactobac no.41/Bifidobact no.7 (PROBIOTIC-10 ORAL) Take by mouth. amitriptyline (ELAVIL) 25 mg tablet TAKE 1 TABLET BY MOUTH EVERYDAY AT BEDTIME venlafaxine ER (EFFEXOR XR) 75 mg 24 hr capsule Take 75 mg by mouth twice daily. LORazepam (ATIVAN) 0.5 mg Take 1 mg by mouth as needed. oxyCODONE IR (ROXICODONE) 5 mg immediate release tablet Take 1 tablet by mouth every 6 hours as needed. (Patient not taking: Reported on 06/02/2022) ondansetron (ZOFRAN) 4 mg tablet Take 1 tablet by mouth every 8 hours as needed for nausea/vomiting. (Patient not taking: Reported on 06/02/2022) No current facility-administered medications for this visit. REVIEW OF SYSTEMS: Denies nausea, vomiting, dumping syndrome, reactive hypoglycemia, gustatory rhinorrhea, Denies abdominal pain, constipation, diarrhea, melena, hematochezia, Denies paresthesias, gait abnormality, fatigue, weakness, lower extremity edema PHYSICAL EXAM: Ht 167.6 cm (5' 6) Wt (!) 159.7 kg (352 lb) LMP 07/11/2016 BMI 56.81 kg/m GENERAL APPEARANCE: Pleasant, interacts appropriately and in no apparent distress Appropriately groomed, happy, smiling, and interactive. ENT: Oral mucosa pink without lesions/ulcerations; LUNGS: unlabored on room air negative findings: normal respiratory rate and rhythm, no cough ABDOMEN: Obese SKIN: Skin of normal texture, temperature without rashes/lesions/ulcerations. NEURO/PSYCH: Oriented to person, place, time; appropriate insight and judgement. Appropriate affect. ASSESSMENT AND PLAN: Normal post-OP course DISPOSITION: Return 6 weeks to EST/Standard office visit EDUCATION: Encouraged to continue with healthy lifestyle changes and incorporate cardiovascular andresistance training, Discussed weight loss expectations after bariatric and metabolic surgery, Advised PT to avoid NSAIDs, smoking tobacco given increased risk of marginal ulcers, or Discussed importance of protein intake as per the RDN note REFERRALS: N/A LABS: Today: See Epic Orders ASSESSMENT/PLAN: 1. S/P laparoscopic sleeve gastrectomy - ICD9: V45.86, ICD10: Z98.84 - She is at 21% EWL and happy with her progress so far- she is meeting fluid and protein goals and following a healthy lifestyle. She is exercising regularly and we discussed the importance of this. - due for labs, orders placed - continue Protonix Marjan Eddy APRN.CNP Total time in direct patient contact = 11 min. Greater than 50% of the time was spent in counselingand/or coordination of care. documented in this encounterEast [facility]08-31-2022 Miscellaneous Notes* Telephone Encounter - Sarah Brown Ma - 04/27/2022 10:12 AM EDT Pharmacy sent a [employer] message requesting the following refill. Requested Prescriptions Pending Prescriptions Disp Refills pantoprazole DR (PROTONIX) 40 mg tablet [Pharmacy Med Name: PANTOPRAZOLE SOD DR 40 MG TAB] 90 tablet 1 Sig: TAKE 1 TABLET BY MOUTH EVERY DAY Next Appointment: 06/02/2022 Patient Phone numbers: [phone] (home) Request is for script(s) to be escript to pharmacy. Sarah Brown Ma documented in this encounterEast [facility] Hospital08-25-2022 History of Present illness Narrative* Audrey Spivey, NELLA - 04/21/2022 1:30 PM EDT 10 days Post-Op--Visit conducted via [employer] Zoom (audio and visual) d/t COVID 19 Curly Cowart Surgery Date: 04/11/22 17# lost since surgery Final pre-surg wt: 405# Compliance with Full Liquid Diet: Yes Tolerating by mouth well: Yes Nausea: No Vomiting: No Constipation: Yes--has been adding miralax every other day, meeting 64oz most days since surgery Diarrhea no Drinking Slowly: Yes Completed food record: Yes Journal brought to appointment: Yes 24 hr recall: B: 2 protein shakes (50g) using premier + slim fast high protein(20g, 30g) F: 72oz 30g protein on 04/19/below fluid goal d/t testing and appt--otherwise, has been meeting protein/fluid goals since surgery 47 average protein intake (g) 64 average liquid intake (oz) Food/beverage intolerance: does report protein shake fatigue Exercise: shopping, ADLs Vitamins--per manual: MVI: Scour Prevention bariatric with 18mg iron chewable (does ok if mixed with something, capsules will be coming in today) B12: 1000mcg included in above Calcium Citrate: 1, 500mg soft chews--reviewed need of 2.5-3 per day in divided doses--she reports ordering bariatric fusion soft chews Iron: needs 18mg/day--meeting Thiamin: reviewed need of 12mg/day--meeting Zinc: reviewed need of 15mg/day--meeting Vitamin D: reviewed need of 3,000IU/day--meeting Written information provided and reviewed: soft diet journal vitamin schedule Advance to phase 3 diet on 04/25 Reinforced Behaviors: vitamin schedule Pt verbally reports maintaining food journal--reviewed during appt today. Pt presents 10 days post SG. Did require additional testing d/t pain on R side--she reports pain isimproving, although still present. Has noticed when exceeding 64oz of fluids that it triggers more pain. Meeting protein/fluid goals outside of the pat 2 days r/t testing and protein shake fatigue--is getting worn out of consuming protein shakes. Will need to continue on full liquid diet for another 3 days--suggested focusing on high protein shake options or alternative unflavored (genpro, isopure unflavored). Has been using chewable bariatric MVI and if mixes can tolerate--she plans to switch over to capsule option d/t hypersensitivity with chewables-will be at her residence today. Has ordered bariatric fusion calcium chews, reviewed need of 2.5-3 per day in divided doses. Encouraged as she is improving with pain goal of 150 minutes of cardio per week--in 10 minute intervals or as tolerated. Reviewed advancing to phase 3 diet on 04/25 per manual. Goals: Goals advance to phase 3 diet (soft protein) on 04/25 per manual formal exercise 5-7x/week for 30 minutes OR 150 min/week (walking, chair exercises, HASFIT youtube videos)--consider 10 minute intervals journal daily and bring to all appointments--maintain at least 5-7x/week meet 60-90g protein and 64oz of fluids per day Scour Prevention bariatric 18mg iron in the morning + 2.5-3, 500mg calcium citrate soft chews split between lunch and dinner Plan: f/u with RD at 6 weeks post-op Total time in direct patient contact = 24 min. Greater than 50% of the time was spent in counselingand/or coordination of care. Audrey Spivey RD This note was generated using voice recognition technology and may contain grammatical errors. documented in this encounterEast [facility] Hospital08-24-2022 Miscellaneous Notes* Telephone Encounter - Saranya Breaux RN - 04/20/2022 1:02 PM EDT Images from the original note were not included. MD Saranya Álvarez RN; Marjan Eddy APRN.HOT WORKER I attempted to call and discuss with the patient but was unable to reach her. Please notify the patient of the following results: IMPRESSION: Surgical changes of sleeve gastrectomy. Trace fluid in the abdominal wall. Findings are most consistent with post surgical changes from her recent surgery. Would have her follow up as planned, and call if she has any further questions/concerns. Thank you- Call made to patient to discuss above information. She verbalized understanding and reports continued pain but decreased. She states she is taking it easy and still maintaining her fluid/protein goals. I advised her to call in if she needs. Saranya Breaux RN April 20, 2022 1:04 PM documented in this encounterEast [facility] Hospital08-23-2022 History of Present illness Narrative* RT Edison(R) - 04/19/2022 4:30 PM EDT Radiology Service Progress Note DATE OF SERVICE: April 19, 2022 TIME: 4:04 PM PATIENT IDENTITY VERIFICATION COMPLETED USING TWO (2) STANDARD IDENTIFIERS: Name and Date of confirmed by patient verbally and Name and Date of confirmed by identification band. FALL SCREENING: Has the patient had 2 falls in the last year or 1 fall with injury or currently using an Ambulatory Assistive Device (Walker, Cane, Wheelchair, Crutches, etc.)? No PATIENT GENDER DATA: Female. status: : No status: NO. PATIENT RELEVANT IMPLANT DATA REVIEWED: Not Applicable ALLERGIES: Reviewed and unchanged CONTRAST ALLERGY: NO. EXAM: CT -CONTRAST INDUCED NEPHROPATHY RISK FACTORS: Not applicable CREATININE: Creatinine Date Value Ref Range Status 04/12/2022 0.62 0.58 - 0.96 mg/dL Final 04/12/2022 0.37 (L) 0.58 - 0.96 mg/dL Final 04/04/2022 0.79 0.58 - 0.96 mg/dL Final Estimated Glomerular Filtration Rate Date Value Ref Range Status 04/12/2022 117 >=60 mL/min/1.73m Final Comment: Estimated Glomerular Filtration Rate (eGFR) is calculated using the 2020 CKD-EPI creatinine equation. This equation utilizes serum creatinine, sex, and age as parameters. The creatinine assay has traceable calibration to isotope dilution- mass spectrometry. Refer to KDIGO guidelines for clinical interpretation. In patients with unstable renal function, e.g. those with acute kidney injury, the eGFRmay not accurately reflect actual GFR. eGFR- Date Value Ref Range Status 12/19/2020 >60 Final P.O.C.T. RESULTS: POC done: Yes, See Lab Tab April 19, 2022 TREATMENT: N/A PERIPHERAL IV DATA: 24 diffusics, left AC RADIOLOGY DEPARTMENT: CT; Exam(s) Completed: Abdomen/Pelvis SIGNATURE: RT Edison(Duncan) PATIENT NAME: Curly Jules Sofya DATE: April 19, 2022 TIME: 4:04 PM documented in this encounterEast [facility] Hospital08-23-2022 History of Present illness Narrative* Marjan Eddy APRN.HOT WORKER - 04/19/2022 10:24 AM EDT BARIATRIC SURGERY CLINIC FOLLOW UP NOTE Name: Curly Jules Sofya Index Surgery Date of Surgery: 04/11/2022 Surgeon: Dr. Rosas Surgical Procedure: Sleeve gastrectomy Pre-surgical weight: 406 lb Other Bariatric Surgeries None Visit: 8 days Today's Visit: Wt 176.2 kg (388 lb 6.4 oz) BMI 62.69 kg/m2 BMI 62.69 kg/(m^2) Last Visit: Wt: 182.3 kg (402 lb) BMI: 64.88 kg/(m^2) Total weight loss: 18 lb [place] weight: 70.3 kg (154 lb 14.5 oz) Excess weight: 252 lb % of excess body weight lost: 7.14% Average 24 hour fluid intake: 64 oz + Average 24 protein intake: 60g Fever/Chills: Denies Abdominal Pain: Yes- severe RUQ pain that started yesterday after bending over- she felt a sudden pop and severe pain Back Pain: Denies Increased Heart Rate: Denies - HR 80 bpm Bloating/Hiccups: Denies Shortness of Breath: Denies Cough/Wheezing: Denies Calf/Thigh pain or swelling: Denies Decreased Urine Output: Denies Nausea/Vomiting: Denies Diarrhea: Denies Bowel function: Hard, formed stools - is going to begin miralax Reflux/Regurgitation: Denies Pathology: FINAL DIAGNOSIS A. 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 See comment. B. Stomach, sleeve gastrectomy: - Benign gastric tissues with minimal chronic gastritis. DIET INTAKE: Phase II DAILY SUPPLEMENTS: Calcium: Calcium Citrate w/ vitamin D (1200 - 1500mg) Multivitamin & Minerals: 1 per day - Procare 18 chewable Iron Supplement: 18 mg in MVI Vitamin B12: included in multivitamin Biotin: No Vitamin C: included in multi-vitamin Vitamin D3: included in multi-vitamin Other: N/A Not tolerating chewable MVI- plans to switch to capsule version EXERCISE: Can begin exercise program. Do not lift over 10# for 6 weeks Are you attending any Support Groups? No attendance HISTORY REVIEWED (electronic chart updated): - medical history - medications - allergies Current Outpatient Medications Medication Sig multivit-min/iron/folic acid/K (BARIATRIC MULTIVITAMINS ORAL) Take by mouth once daily. CALCIUM CITRATE ORAL Take by mouth once daily. oxyCODONE IR (ROXICODONE) 5 mg immediate release tablet Take 1 tablet by mouth every 6 hours as needed. ondansetron (ZOFRAN) 4 mg tablet Take 1 tablet by mouth every 8 hours as needed for nausea/vomiting. enoxaparin (LOVENOX) 60 mg/0.6 mL syrg Inject 0.6 mL subcutaneously q 12 HR for 28 days. TO START AFTER SURGERY pantoprazole DR (PROTONIX) 40 mg tablet Take 1 tablet by mouth once daily. Lactobac no.41/Bifidobact no.7 (PROBIOTIC-10 ORAL) Take by mouth. amitriptyline (ELAVIL) 25 mg tablet TAKE 1 TABLET BY MOUTH EVERYDAY AT BEDTIME venlafaxine ER (EFFEXOR XR) 75 mg 24 hr capsule Take 75 mg by mouth twice daily. LORazepam (ATIVAN) 0.5 mg Take 1 mg by mouth as needed. MILK THISTLE ORAL Take by mouth. cholecalciferol (VITAMIN D-3) 5,000 unit tab Take 1 tablet by mouth once daily. No current facility-administered medications for this visit. REVIEW OF SYSTEMS: Review of Systems Constitutional: Negative for chills, fever and malaise/fatigue. Respiratory: Negative for cough and shortness of breath. Cardiovascular: Negative for chest pain, palpitations and leg swelling. Gastrointestinal: Positive for abdominal pain and constipation. Negative for blood in stool, diarrhea, heartburn, melena, nausea and vomiting. Genitourinary: Negative for dysuria. Skin: Negative for itching and rash. Neurological: Negative for dizziness and weakness. Psychiatric/Behavioral: Negative for depression. The patient is not nervous/anxious. PHYSICAL EXAM: BP 135/97 (BP Site: Left Arm, BP Position: Sitting, BP Cuff Size: Regular Adult) Pulse 80 Ht 167.6 cm (5' 6) Wt (!) 176.2 kg (388 lb 6.4 oz) LMP 07/11/2016 BMI 62.69 kg/m Physical Exam Constitutional: Appearance: Normal appearance. She is obese. HENT: Head: Normocephalic. Mouth/Throat: Mouth: Mucous membranes are moist. Cardiovascular: Rate and Rhythm: Normal rate. Pulmonary: Effort: Pulmonary effort is normal. No respiratory distress. Abdominal: General: Abdomen is flat. There is no distension. Palpations: Abdomen is soft. There is no mass. Tenderness: There is abdominal tenderness. Hernia: No hernia is present. Musculoskeletal: General: Normal range of motion. Cervical back: Normal range of motion. Skin: General: Skin is warm and dry. Coloration: Skin is not jaundiced. Comments: Surgical incisions are c/d/I. NO drainage, erythema, induration, fluctuance. Incisions are well approximated. Mild normal healing bruising noted. RUQ moderately intense tenderness upon light and deep palpation. No bruising, bulge or lump. Neurological: General: No focal deficit present. Mental Status: She is alert and oriented to person, place, and time. Mental status is at baseline. Psychiatric: Mood and Affect: Mood normal. Behavior: Behavior normal. Thought Content: Thought content normal. Judgment: Judgment normal. ASSESSMENT AND PLAN: Normal post-OP course DISPOSITION: Return 5 weeks to EST/Standard office visit EDUCATION: Encouraged to continue with healthy lifestyle changes and incorporate cardiovascular andresistance training, Discussed weight loss expectations after bariatric and metabolic surgery, Advised PT to avoid NSAIDs, smoking tobacco given increased risk of marginal ulcers, or Discussed importance of protein intake as per the RDN note REFERRALS: N/A LABS: Today: NA 5 weeks: See Epic Orders ASSESSMENT/PLAN: 1. S/P laparoscopic sleeve gastrectomy - ICD9: V45.86, ICD10: Z98.84 (primary diagnosis) - She is doing well with fluid and protein intake- meeting goals daily. Encouraged exercise and healthy lifestyle - Continue lovenox and PPI - having some constipation- discussed adding miralax daily - CT ABD/PEL W IVCON - IV CONTRAST (RADIOLOGY PROCEDURE) - ENTERIC CONTRAST (RADIOLOGY PROCEDURE) - IV CONTRAST (RADIOLOGY PROCEDURE) - ENTERIC CONTRAST (RADIOLOGY PROCEDURE) - CT ABD/PEL W IVCON - BASIC METABOLIC PNL - CBC - FERRITIN BLD - FOLATE SERUM - IRON + TIBC - PTH INTACT BLD - VITAMIN B1 (THIAMINE), WHOLE BLOOD - VITAMIN B12 BLOOD - VITAMIN D 25 HYDROXY 2. Right sided abdominal pain - ICD9: 789.09, ICD10: R10.9 - She developed sudden, sharp RUQ pain yesterday after bending over and feeling a pop. The pain in inhibiting her movement. She did have a liver biopsy with sleeve gastrectomy. Pt is planning to goto the ED if pain worsens so will obtain CT abd/pelvis to assess for acute findings. PE was positive for significant tenderness upon light and deep palpation. I am attaching the covering surgeon, Dr.Sophia Arenas to the CT results. - Continue oxycodone PRN for pain and ca use ice/heat - CT ABD/PEL W IVCON - IV CONTRAST (RADIOLOGY PROCEDURE) - ENTERIC CONTRAST (RADIOLOGY PROCEDURE) - IV CONTRAST (RADIOLOGY PROCEDURE) - ENTERIC CONTRAST (RADIOLOGY PROCEDURE) - CT ABD/PEL W IVCON 3. Hepatic fibrosis - ICD9: 571.5, ICD10: K74.00 - Stage 2 noted on liver biopsy - She is aware to make an appointment with gastroenterology to review 4. History of DVT (deep vein thrombosis) - ICD9: V12.51, ICD10: Z86.718 - Continue Lovenox as prescribed Marajn Eddy APRN.CNP Total time in direct patient contact = 30 min. Greater than 50% of the time was spent in counselingand/or coordination of care. Chart sent to Dr. Davila, covering surgeon. [facility] Miscellaneous Notes* Telephone Encounter - Jennifer Anthony - 04/18/2022 4:14 PM EDT Patient called pain in side seeing Marjan 04/19/2022 will see her tomorrow documented in this encounterEast [facility]22 Miscellaneous Notes* Telephone Encounter - Marjan Eddy APRN.CNP - 04/14/2022 3:46 PM EDT I contacted Curly Cowart for post-operative follow up s/p Sleeve gastrectomy with Dr. Rosas on04/11/22 1. Do you have someone to care for you now that you are home?YES 2. Are you having pain now that is not relieved by your pain medications?NO 3. Are you able to drink the recommended daily amount of fluids (48 ounces minimum/day) and protein(60-80 grams/day) as prescribed by the fill plant operator or nutritional counselor? YES 4. Are you taking the vitamins and minerals as prescribed? YES 5. Do you have the shank boner number to contact your surgeon if you have a problem or question? YES 6. Are your incisions free of redness, swelling, or drainage? YES (If you have steri strips on yourincision sites, these will fall off on their own. You may shower as tolerated). 7. Have your bowels moved since the day of surgery? NO If not, are you passing gas?YES 8. Are you up walking 3-4 times per day?YES 9. Do you have an appointment to see a fill plant operator or nutritional counselor in the next month?YES Overall, she is doing well. She reached 64 ounces of fluid and 60 g of protein yesterday. Her only complaint is struggles with taking multivitamin-which she has discussed with the RD and has a plan in place. Denies nausea, vomiting, severe abdominal pain, diarrhea, melena, shortness of breath, chest pain, calf pain. She is taking Lovenox injections as directed. Pain is well controlled. She is aware to contact the office with any questions or concerns Marjan Eddy APRN.HOT WORKER documented in this encounterEast [facility]08-[facility]-2022 Miscellaneous Notes* Telephone Encounter - Saranya Breaux RN - 04/12/2022 1:10 PM EDT I visited with the patient while inpatient in room 5218. Patient was provided with written education regarding common issues and/or questions post-surgery. Reviewed fluid and protein goals, importance of ambulation and use of incentive spirometer. Reviewed signs and symptoms of incision infection and blood clots and what to report to the staff. Reviewed use of medications to assist with nausea, constipation, and pain. Encouraged patient to call into the bariatric office at [phone], hit option #2 for the post-op line with any questions or concerns. Patient verbalized understanding and allquestions answered. Patient reports some pain to right abdominal-hip area, left shoulder, epigastric area. She was switched to oxycodone by Dr Rosas. Patient is nausea free, has a patch behind right ear. She is eager to be discharged home today. Saranya Breaux RN April 12, 2022 1:10 PM documented in this encounterEast [facility]08-10-2022 Miscellaneous Notes* Telephone Encounter - Jennifer Anthony - 04/06/2022 4:08 PM EDT Called patient to let them know about pre testing tomorrow LVM documented in this encounterEast [facility]08-[facility]-2022 Miscellaneous Notes* Telephone Encounter - Saranya Breaux RN - 04/05/2022 10:29 AM EDT Call made to patient with message left regarding need to repeat CBC by . My direct number provided for return call. Saranya Breaux RN April 05, 2022 10:29 AM * Telephone Encounter - Marjan Eddy APRN.CNP - 04/05/2022 10:10 AM EDT Platelets are low on PST- please ask patient to have this redrawn by . It could just be incidental. Marjan Eddy APRN.CNP documented in this encounterEast [facility]08-08-2022 Miscellaneous Notes* Telephone Encounter - Sarah Brown Ma - 04/04/2022 3:15 PM EDT Called and spoke with patient and she was looking for post op information that was discussed in appointment. I told her that she should be able to see everything on mychart if she could not I could print out the appointment note and she could pick it up when she does the wash and ensure. She understood and will let me know if she has any further issues. Sarah Brown Ma * Telephone Encounter - Sarah Brown Ma - 04/04/2022 2:20 PM EDT What info is she talking about and I can send it? Sarah Brown Ma documented in this encounterEast [facility]08-04-2022 Instructions* Patient Instructions* Marjan Eddy APRN.CNP - 03/31/2022 12:56 PM EDT Images from the original note were not included. 1. Stop taking NSAID medication, herbal supplements, fish oil, flaxseed oil 7 days prior to surgerybecause they thin your blood. Tylenol (Acetaminophen) is permitted before surgery. 2. If you have diabetes or high blood pressure you must make an appointment to visit your primary care provider ONE WEEK after surgery to regulate your medication. BEFORE SURGERY CHECKLIST 1. The evening before surgery, consume 28-32 ounces of Gatorade or 1 boost breeze 2. The day of surgery, consume 20 ounces of Gatorade or 1 boost breeze. This must be completed before you arrive to the surgery center (2 hours before) 3. Continue to consume clear liquids until you arrive to surgery (2 hours before) 4. STOP the following medications 1 day before surgery: Lasix, HCTZ 5. TAKE the following medications the morning of surgery: Effexor 6. 12 hours before surgery shower with anti-bacterial soap, Chlorhexidine. Do not apply lotions, powder, or make-up. Apply clean clothing and bedding after your shower. Please remove your jewelry, including wedding band! ITEMS TO BRING TO THE HOSPITAL: 1. CPAP/BiPAP if you are being treated for sleep apnea. 2. Comfortable walking shoes 3. You will remain in a hospital gown during your stay. You may bring undergarments to wear INCISION CARE Incisions must be kept clean and dry. Proper care of incisions promotes healing, reduces scarring, and reduces the risk of an infection. Follow these instructions for incision care very carefully. Some general tips about caring for incisions include: Always wash your hands before and after touching your incisions. Always inspect your incisions and wounds every day for signs of infection. Clothing: Avoid wearing tight clothes that rub on the incisions. Itching: Incisions may feel itchy as they heal; this is normal. Don't scratch them. If the itchiness gets worse instead of better, call your surgical team. This may be a sign of infection or that stitches are too tight. Lump/bump: You may feel a small lump or bump under your incision; this is normal. If the lump or bump gets worse, call your surgical team Steri-Strips: You may wash or shower with steri-strips in place. Cleanse the area with mild soap and water and gently pat dry with a clean towel or cloth. Do not pull, tug, or rub steri-strips. Tissue glue: The glue should be kept dry and the incisions should be kept out of direct sunlight. The glue will dry out and fall off within five to 10 days. What are the signs of a possible infection in an incision? A wound that has green or yellow drainage A bad odor from the incision Opening of the incision line -- it gets deeper, longer, or wider Redness that goes beyond the basic edge of the incision -- site should show signs of improvement and not getting redder Warmth, hardness, around the incision. Fever (greater than 101 degrees Fahrenheit or 38.4 degrees Celsius), sweating, or chills When is it important to call your surgical team? It is always best to contact your surgical team first if you have any concerns about your incisions. Bleeding that does not stop with pressure If there is any sign of infection (see question, what are the signs of a possible infection ). If you have questions or confusion about incision care instructions [facility] Laparoscopic Sleeve Gastrectomy What You Should Know: Laparoscopic Sleeve Gastrectomy is a newer type of less invasive surgery done for weight loss. A Sleeve Gastrectomy is surgery to remove part of your stomach. The stomach is a hollow organ that breaks down food into nutrients (small pieces your body can take in). It absorbs (takes in) some of thesenutrients and the rest then pass into your small intestine (bowel). Your stomach is connected to your mouth by a tube called the esophagus. Laparoscopic Sleeve Gastrectomy is done using special tools put into small incisions (cuts) made inyour abdomen ([facility]). The laparoscope is a long metal tool with a tiny video camera and light at the tip. Your surgeon can see your stomach and other parts inside your abdomen by watching on a video screen. Your surgeon uses other special tools to cut and remove part of the stomach. After surgery you should have less pain and faster healing compared to having an open (large incision) sleeve gastrectomy. Your home medicines are: High protein supplement, stomach acid medication every morning, pain medication, PLUS any home medications that you will be instructed to continue. Medicines: Keep a written list of the medicines you take, the amounts, and when and why you take them. Bring the list of your medicines or the pill bottles when you see your caregivers. Learn why you take each medicine. Ask your caregiver for information about your medicine. Do not take any medicines, rcic-vts-jpdztcz drugs, vitamins, herbs or food supplements without first talking to your caregivers. Always take your medicine as directed by caregivers. Call your caregiver if you think your medicines are not helping or if you feel you are having side effects. Do not quit taking your medicines until you discuss it with your caregiver. If you are taking medicine that makes you drowsy, do not driveor use heavy equipment. Acetaminophen: Use acetaminophen (Tylenol) to decrease pain or lower a fever. Do not use aspirin ornon-steroidal anti-inflammatory medicines (NSAIDs). Aspirin and NSAIDs may cause stomach irritation, an ulcer or bleeding. Read labels so that you know the active ingredients in each medicine that you use. Pain medicine: You may be given medicine to take at home to take away or decrease pain. Your caregiver will tell you how much to take and how often to take it. Take the medicine exactly as directed by your caregiver. Do not wait until the pain is too bad before taking the medicine. The medicine maynot work as well at controlling your pain if you wait too long to take it. Tell your doctor if the pain medicine does not help or if your pain comes back too soon. Vitamins: You will only need to take these once you go home if you choose a high protein supplementwithout vitamins in it. Follow-Up Visit Information: See schedule given in class. Keep all your appointments. Write down any questions you may have. This way you will remember to ask these questions during your next visit. You have an appointment scheduled for 7-10 days after surgery: Phone call: You will receive a phone call 24-48 hours after your discharge from the hospital. We will be checking on your progress and making sure that you don t have any questions or concerns. What Can I Eat After I had Sleeve Gastrectomy Surgery? You will need to eat a full liquid diet for two (2) weeks before starting a diet of soft foods. Refer to handouts given in education class for sample menus. At 2-week follow-up appointment the Dietitian will advance you to soft foods. Drink the right type of liquids. o Drink water or sugar-free drinks. These include non-carbonated, caffeine-free diet drinks, tea, coffee and skim or 1% low-fat milk. Drinking plenty of liquids is important during weight loss. Drinksmall amounts of liquid often throughout the day. Try to drink at least 8 (8 ounce) cups of liquid each day, which equals 64 ounces. No alcoholic beverages for 6 months. Examples of alcoholic beverages are INCISION CARE Incisions must be kept clean and dry. Proper care of incisions promotes healing, reduces scarring, and reduces the risk of an infection. Follow these instructions for incision care very carefully. Some general tips about caring for incisions include: Always wash your hands before and after touching your incisions. Always inspect your incisions and wounds every day for signs of infection. Clothing: Avoid wearing tight clothes that rub on the incisions. Itching: Incisions may feel itchy as they heal; this is normal. Don't scratch them. If the itchiness gets worse instead of better, call your surgical team. This may be a sign of infection or that stitches are too tight. Lump/bump: You may feel a small lump or bump under your incision; this is normal. If the lump or bump gets worse, call your surgical team Steri-Strips: You may wash or shower with steri-strips in place. Cleanse the area with mild soap and water and gently pat dry with a clean towel or cloth. Do not pull, tug, or rub steri-strips. Tissue glue: The glue should be kept dry and the incisions should be kept out of direct sunlight. The glue will dry out and fall off within five to 10 days. What are the signs of a possible infection in an incision? A wound that has green or yellow drainage A bad odor from the incision Opening of the incision line -- it gets deeper, longer, or wider Redness that goes beyond the basic edge of the incision -- site should show signs of improvement and not getting redder Warmth, hardness, around the incision. Fever (greater than 101 degrees Fahrenheit or 38.4 degrees Celsius), sweating, or chills What self-care instructions should I be aware of? You may shower the day after surgery. Carefully wash the incisions with soap and water. Check your incisions every day. Look for redness, swelling or drainage. If you cannot reach the incision areas,ask someone else to help you, or look in the mirror. Leave your incisions open to air. Do not put any lotions or ointments on your incisions. Do not miss any medical appointments. It is important to follow your weight loss team s instructions for the rest of your life. This includes changing your eating habits and lifestyle, taking vitamins and supplements, and going to regular medical appointments. If you do these things, you will decrease your risk of problems. Begin walking the night of surgery. The goal is to walk 30 minutes in total every day. You will start by walking for 5 minutes six times a day. As you start to feel stronger you can add your minutes together, walking 7 minutes, then 10 minutes at a stretch, but for a total of 30 minutes per day. Do not try to get until you have lost the weight that you want to lose. Your weight shouldbe stable, which could take as much as 2 years after surgery. Getting while quickly losingweight could hurt you and your unborn baby. If you want to get , talk to your doctor and caregivers about this first. Driving: You may drive in approximately 1 week. You must be off your narcotic pain medications. Sexual [place] (sex): You may have sex in approximately 1 week, as long as you are pain free Lifting and moving objects: Nothing more than 10 pounds for 6 weeks. Returning to work or school: In approximately 2 3 weeks, unless heavy lifting is involved. Where can I go for information and support? Talk to your caregivers, family and friends about sleeve gastrectomy and weight loss. Let them help you before and after surgery. Join a bariatric support group and begin attending meetings before you to go to surgery. This is a group of people who plan to have or have already had weight loss surgery. Ask your caregiver for the names and numbers of support groups near you. For more information about support groups, obesity and weight loss surgery, contact the following: o [employer] [address] [place] [address], [facility], [place] www.obesity.org o [employer] (ASMBS) [address] [phone] www.asmbs.org o See the attached support group meeting schedule SEEK CARE IMMEDIATELY IF: o You have sudden chest pain, trouble breathing, or are coughing up blood. Call 911 or 0 (Security Infrastructure Engineer)to get to the nearest hospital or clinic. DO NOT DRIVE YOURSELF! o You cannot stop throwing up. o You feel restless, short of breath, or feverish (over 100 F). You have pain or pressure in your stomach or back, you have the hiccups, or have a very fast heart rate that will not slow down. CALL during office or after hours: o It is always best to contact your surgical team first if you have any concerns about your incisions. o Bleeding that does not stop with pressure o If there is any sign of infection o If you have questions or confusion about incisions care or instructions o You have new swelling or pain in the calf of your leg. o Call if you feel sick to your stomach and the feeling will not go away. o You have any questions or concerns about your sleeve gastrectomy or your care. documented in this encounter[facility]22 History of Present illness Narrative* Marjan Eddy APRN.CNP - 03/31/2022 12:53 PM EDT BARIATRIC SURGERY CLINIC FOLLOW UP NOTE DISTANCE HEALTH VISIT This Team Access Model visit is a virtual encounter. It required patient- provider interaction for the medical decision making as documented below. Consent was obtained to complete today's distance health visit. HPI: Curly Jules Sofya a 36 year old female is scheduled for Lap Sleeve Gastrectomy with Dr. Rosas on 04/11/22. She denies recent illnesses, recent hospitalizations, recent ED visits. Denies symptoms of COVID-19. 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 currently 5 cigarettes/month Vaping Use Vaping Use: Never used Substance Use Topics Alcohol use: Not Currently Drug use: No Medications: Current Outpatient Medications Medication Sig MILK THISTLE ORAL Take by mouth. furosemide (LASIX) 20 mg tablet Take 20 mg by mouth once daily. cholecalciferol (VITAMIN D-3) 5,000 unit tab Take 1 tablet by mouth once daily. pantoprazole DR (PROTONIX) 40 mg tablet Take 1 tablet by mouth once daily. Lactobac no.41/Bifidobact no.7 (PROBIOTIC-10 ORAL) Take by mouth. amitriptyline (ELAVIL) 25 mg tablet TAKE 1 TABLET BY MOUTH EVERYDAY AT BEDTIME venlafaxine ER (EFFEXOR XR) 75 mg 24 hr capsule Take 75 mg by mouth twice daily. aspirin, enteric coated (ADULT LOW DOSE ASPIRIN) 81 mg EC tablet Take 1 tablet by mouth once daily. hydroCHLOROthiazide (HYDRODIURIL, ESIDRIX) 25 mg tablet Take 25 mg by mouth once daily. LORazepam (ATIVAN) 0.5 mg tab Take 1 mg by mouth as needed. thiamine mononitrate (VITAMIN B-1, MONONITRATE,) 100 mg tab Take 1 tablet by mouth once daily. (Patient not taking: Reported on 01/13/2022 ) Current Facility-Administered Medications Medication Dose Route Frequency sodium chloride 0.9 % (flush) 10 mL (BD POSIFLUSH) 10 mL INTRAVENOUS DIRECTED PRN REVIEW OF SYSTEMS General: No fatigue or fevers HEENT: Negative for frequent or significant headaches, No changes in hearing or vision, no nose bleeds or other nasal problems PAP Therapy: Not needed. GI:No nausea, vomiting, or diarrhea and No heartburn or reflux symptoms Muskuloskeletal: Negative for joint pain or swelling, back pain or muscle pain Skin: Negative for lesions, rash, and itching Psych: Negative for sleep disturbance, mood disorder and recent psychosocial stressors PHYSICAL EXAMINATION Wt 183.7 kg (405 lb) BMI 65.37 kg/m2 Ht 167.6 cm (5' 6) BMI 65.37 kg/m2 GENERAL APPEARANCE: Pleasant, interacts appropriately and in no apparent distress. Appropriately groomed, happy, smiling, and interactive SKIN: Skin of normal texture, temperature without rashes/lesions/ulcerations. LUNGS: unlabored on room air negative findings: normal respiratory rate no cough NEURO/PSYCH: Oriented to person, place, time; appropriate insight and judgement. Appropriate affect. Diagnostic Tests Reviewed for Today's Visit Most recent lab and imaging results The plan of treatment for Curly Cowart is Surgical procedure interested in: Sleeve gastrectomy EGD 03/18/21: antral and body gastritis with antral erosions. Pathology demonstrated: Stomach, antrum, biopsy Active gastritis with focal intestinal metaplasia and erosions. Immunohistochemical stain for Helicobacter pylori is negative for organisms. Gastroesophageal junction, biopsy Benign squamousmucosa showing no pathologic abnormalities. Repeat EGD 05/20/21: WNL, no evidence of IM Upper GI: defer to EGD GES: Accelerated rate of emptying RUQ US: NAFLD, hepatomegaly (23.2cm) s/p cholecystectomy Sleep Study: Mild BRISEYDA- does not need CPAP per sleep medicine (scanned in 03/02/22) CXR: per pulmonary clearance EKG: per cardiac clearance H Pylori negative Labs: complete, elevated liver enzymes Nicotine use <12 months: NA - quit over 12 months ago Antiplatelet/anticoagulants: Baby Aspirin - takes for hx of PE/DVT (OK to continue baby ASA prior to surgery per Dr. Rosas- Planned SG- will be on Lovenox x 4 weeks post op then can resume Baby ASA) Immunosuppressive therapy: No Estrogen therapy: No Evaluations Psychology: cleared 06/17/21 Nutrition: cleared 03/16/22 Education class: complete 03/03/22 Clearances: Cardiac (low 11/29/21) and PCP (low), pulmonology/sleep (low 03/02/22), gastroenterology (moderate, needs repeat LFTs and liver biopsy at time of surgery) Risk Calculator: VTE Risk: Will need at least 4 weeks of Lovenox based on history of PE & DVT COVID-19 Risk 3 ISS score: not diabetic Adverse events score: 2.28% Post-op Medications: Extended Lovenox: Will need at least 4 weeks of Lovenox based on history of PE & DVT - RX sent Actigall: Not needed H2 waldo/PPI: On PPI Tylenol: Refusing due to elevated liver enzymes ASSESSMENT/PLAN: 1. Class 3 severe obesity due to excess calories with serious comorbidity and body mass index (BMI)of 60.0 to 69.9 in adult (HCC) - ICD9: 278.01, V85.44, ICD10: E66.01, Z68.44 (primary diagnosis) Weight decreasing - Behavioral intervention and - Medical nutrition therapy with dietitian - ENOXAPARIN 60 MG/0.6 ML SUBCUTANEOUS SYRINGE 2. History of DVT (deep vein thrombosis) - ICD9: V12.51, ICD10: Z86.718 - Can continue baby ASA up until surgery per Dr Rosas - Will hold baby ASA 4 weeks post-op while on Lovenox - ENOXAPARIN 60 MG/0.6 ML SUBCUTANEOUS SYRINGE 3. Elevated liver enzymes - ICD9: 790.5, ICD10: R74.8 - Refusing tylenol DOS and after due to elevated liver enzymes PST scheduled 04/04 Prescription for lovenox sent to pharmacy Still need clearance from PCP Marjan Eddy, [employer] EX[employer] COORDINATOR.HOT WORKER Preoperative instructions discussed with the patient in detail. Discussed stopping all NSAIDs medication, herbal remedies, vitamins 7 days prior to surgery. Reviewed further medications to stop 1 dayprior to surgery, medications to take the morning of surgery if applicable Discussed medications indetail, all questions were answered. Discharge instructions were discussed with the patient. We discussed symptoms and signs that warrant immediate medical attention (rare). We discussed signs and symptoms that warrant a phone call to the office. We discussed that some nausea is expected immediately after surgery, if unable to tolerate oral intake to please contact the office immediately. We discussed that some postoperative pain isexpected, if he were to express severe abdominal pain please contact the office. Received extensive teaching regarding incision care, signs and symptoms of a surgical infection, and reviewed to contact the surgical team for any concerns regarding incisions. Confirmed completed patient education class prior to scheduled surgery. Patient verbally confirms the above information. This information was sent to the patient through readfy message as well. I spent a total of 30 minutes on the date of the service which included preparing to see the patient, [id number] patient care, completing clinical documentation, obtaining and/or reviewing separately obtained history, counseling and educating the patient/family/caregiver, ordering medications, uri ts, or procedures and care coordination (not separately reported). Medical Decision Making: Problems: Moderate: 2+ stable chronic illnesses Data: Assessment requiring an independent historian(s) Risk: Moderate: Drug management Medical Decision Making Level: 4 - Moderate [facility] of Present illness Narrative* Marjan Eddy APRN.CNP - 03/24/2022 11:30 AM EDT Scheduled for LSG on 04/11/22. Originally consented for surgery on 07/01/21 Updates: - Surgery canceled 08/17 due to her having COVID - Developed long haul symptoms after COVID - RYAN (updated clearance by pulmonology received), palpitations (holter monitor WNL- updated cardiac clearance received) - Ongoing elevations in liver enzymes, RUQ pain, fluid retention - hepatomegaly on updated RUQ US. Referred to gastroenterology- she had fibrosis scan which showed mild scarring of liver (cleared by gastroenterology and they recommend liver biopsy at time of surgery) - Had 10# gain since last consent visit and 39# gain since beginning the program - she has receivedupdated clearance from RD Surgical procedure interested in: Sleeve gastrectomy EGD 03/18/21: antral and body gastritis with antral erosions. Pathology demonstrated: Stomach, antrum, biopsy Active gastritis with focal intestinal metaplasia and erosions. Immunohistochemical stain for Helicobacter pylori is negative for organisms. Gastroesophageal junction, biopsy Benign squamousmucosa showing no pathologic abnormalities. Repeat EGD 05/20/21: WNL, no evidence of IM Upper GI: defer to EGD GES: Accelerated rate of emptying RUQ US: NAFLD, hepatomegaly (23.2cm) s/p cholecystectomy Sleep Study: Mild BRISEYDA- does not need CPAP per sleep medicine (scanned in 03/02/22) CXR: per pulmonary clearance EKG: per cardiac clearance H Pylori negative Labs: complete, elevated liver enzymes Nicotine use <12 months: NA - quit over 12 months ago Antiplatelet/anticoagulants: Baby Aspirin - takes for hx of PE/DVT (OK to continue baby ASA prior to surgery per Dr. Rosas- Planned SG- will be on Lovenox x 4 weeks post op then can resume Baby ASA) Immunosuppressive therapy: No Estrogen therapy: No Evaluations Psychology: cleared 06/17/21 Nutrition: cleared 03/16/22 Education class: complete 03/03/22 Clearances: Cardiac (low 11/29/21) and PCP (low), pulmonology/sleep (low 03/02/22), gastroenterology (moderate, needs repeat LFTs and liver biopsy at time of surgery) Risk Calculator: VTE Risk: Will need at least 4 weeks of Lovenox based on history of PE & DVT COVID-19 Risk 3 ISS score: not diabetic Adverse events score: 2.28% Post-op Medications: Extended Lovenox: Will need at least 4 weeks of Lovenox based on history of PE & DVT Actigall: Not needed H2 waldo/PPI: On PPI Tylenol: will require Marjan Eddy APRN.HOT WORKER * Tata Rosas MD - 03/24/2022 11:16 AM EDT BARIATRIC SURGERY NEW PATIENT CONSULTATION HISTORY AND PHYSICAL Date: March 24, 2022 Time: 11:16 AM Curly Cowart is a 36 year old year old female with obesity (Body mass index is 65.37 kg/m .), anxiety/depression (effexor; PRN ativan), 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 She is scheduled for LSG on 04/11/22. She had previously been scheduled for LSG on 07/01/21, but thissurgery was cancelled due to the patient having a COVID infection. She then developed long-haul COVID symptoms with dyspnea on exertion - this has improved drastically and she experiences only intermittent dyspnea. An updated pulmonary clearance letter was obtained. She also developed palpitations - holter monitor findings were WNL and an updated cardiac clearance was received. She was also notedto have ongoing elevations in liver enzymes, RUQ pain, and fluid retention. She underwent repeat RUQ US and was noted to have hepatomegaly. She was referred to gastroenterology and then underwent fibrosis scan which showed mild scarring of liver (cleared by gastroenterology and they recommend liverbiopsy at time of surgery) Of note, she has experienced weight gain since her last consent visit and a 39 pound gain since beginning the program. She has received an updated clearance from [facility]. Her weight today is 405 pounds. Please see my previous clinic notes for her full history: While hospitalized for V-tach she had a PICC and developed an UE DVT. She reports having then developed a PE related to this DVT and was on Coumadin for 6 months. She takes no current anticoagulants. She remains on daily 81 mg ASA. Her father has weqai-1-vcuyogwxnvp deficiency and underwent a liver transplant. She was told years ago that she also has the deficiency, but very recently blood work was done and she found that she is actually just a carrier and does not have the actual deficiency. She first began in our bariatric program in March of 2020. However, she elected to step out of theprogram at that point due to experiencing anxiety and nervousness related to surgery and undergoinganesthesia. She states that she has been working with an individual counselor regarding these concerns, and she is feeling much better and ready to proceed with the program. Social: she quit smoking in 08/2019 (former 0.5 ppd x 10 years) with no recidivism; she denies alcohol use; she denies marijuana use or other drug use. PSHx: x1, tonsillectomy, ensure TL, lap uterine nerve ablation, liver biopsy, lap CCx, cardiac radiofrequency ablation PAST MEDICAL HISTORY Diagnosis Date Colpi-8-ddtcstodqql deficiency (HCC) Cardiac dysrhythmia, unspecified 2007 Depressive disorder, not elsewhere classified DVT (deep venous thrombosis) (HCC) after PICC line Esophageal reflux Shahzad thyroiditis 04/09/2015 Intestinal disaccharidase deficiencies and disaccharide malabsorption Irritable bowel syndrome Morbid obesity (HCC) stated BMI 47.3 BRISEYDA (obstructive sleep apnea) Other chronic nonalcoholic liver disease Personal history of tobacco use, presenting hazards to health 1/2 ppd x 5 years; quit 08/18/14 Pulmonary embolism (HCC) after PICC line V-tach (HCC) PAST SURGICAL HISTORY Procedure Laterality Date DELIVERY ONLY 2002 , low cervical CHOLECYSTECTOMY 01/08/2008 EXC/DSTRJ LINGUAL TONSIL ANY METHOD SPX 2003 LAPAROSCOPIC UTERINE NERVE ABLATION 2011 LIVER BIOPSY 2008 MIDLINE CATHETER 09/21/2018 PAST SURGICAL HISTORY OF 2009 spring coils in fallopian tubes S BALLOON,UTERINE ABLATION [id number] 2009 SHX CARDIAC RADIOFREQUENCY ABLATION ventricular TONSILLECTOMY PRIMARY/SECONDARY <AGE 12 2003 Tonsillectomy, wisdom teeth FAMILY HISTORY Problem Relation Age of Onset Anxiety disorder Mother panic attacks Heart Attack Father 54 Heart disease Father coronary stents other (liver disease) Father alpha 1 antitrypsin; has liver transplant other (atrial fibrillation) Father Thyroid Sister Hashimotos Anxiety disorder Sister other (atrial fibrillation) Paternal Grandmother Heart disease Paternal Grandfather heart transplant other (liver failure) Paternal Grandfather Anxiety disorder Sister other (atrial fibrillation) Paternal Uncle other (atrial fibrillation) Paternal Aunt Social History Tobacco Use Smoking status: Former Smoker Packs/day: 0.50 Years: 10.00 Pack years: 5.00 Types: Cigarettes Quit date: 2019 Years since quittin.5 Smokeless tobacco: Never Used Tobacco comment: total quit 2017. currently 5 cigarettes/month Vaping Use Vaping Use: Never used Substance Use Topics Alcohol use: Not Currently Drug use: No Current Outpatient Medications Medication Sig MILK THISTLE ORAL Take by mouth. furosemide (LASIX) 20 mg tablet Take 20 mg by mouth once daily. cholecalciferol (VITAMIN D-3) 5,000 unit tab Take 1 tablet by mouth once daily. pantoprazole DR (PROTONIX) 40 mg tablet Take 1 tablet by mouth once daily. Lactobac no.41/Bifidobact no.7 (PROBIOTIC-10 ORAL) Take by mouth. amitriptyline (ELAVIL) 25 mg tablet TAKE 1 TABLET BY MOUTH EVERYDAY AT BEDTIME venlafaxine ER (EFFEXOR XR) 75 mg 24 hr capsule Take 75 mg by mouth twice daily. aspirin, enteric coated (ADULT LOW DOSE ASPIRIN) 81 mg EC tablet Take 1 tablet by mouth once daily. hydroCHLOROthiazide (HYDRODIURIL, ESIDRIX) 25 mg tablet Take 25 mg by mouth once daily. LORazepam (ATIVAN) 0.5 mg tab Take 1 mg by mouth as needed. thiamine mononitrate (VITAMIN B-1, MONONITRATE,) 100 mg tab Take 1 tablet by mouth once daily. (Patient not taking: Reported on 01/13/2022 ) Current Facility-Administered Medications Medication Dose Route Frequency sodium chloride 0.9 % (flush) 10 mL (BD POSIFLUSH) 10 mL INTRAVENOUS DIRECTED PRN ALLERGIES Allergen Reactions Bupropion Rash Citalopram Other: See Comments, Vomiting Hydrocodone-Acetami* Hives, GI Upset Meclizine Other: See Comments Morphine Other: See Comments Abdominal pain Nadolol Itching Penicillins Hives Review of Systems Constitutional: Negative for chills, diaphoresis, fever and malaise/fatigue. HENT: Negative for congestion, hearing loss, nosebleeds, sinus pain, sore throat and tinnitus. Eyes: Negative for blurred vision, double vision, pain and redness. Respiratory: Positive for shortness of breath (improved/intermittent). Negative for cough, hemoptysis, sputum production and wheezing. Cardiovascular: Positive for palpitations (only when nervous). Negative for chest pain, orthopnea, leg swelling and PND. Gastrointestinal: Positive for heartburn (well controlled on protonix). Negative for abdominal pain, blood in stool, constipation, diarrhea, nausea and vomiting. Genitourinary: Negative for dysuria, frequency, hematuria and urgency. Musculoskeletal: Positive for joint pain. Negative for back pain, falls, myalgias and neck pain. Skin: Negative for itching and rash. Neurological: Negative for dizziness, speech change, focal weakness, seizures, loss of consciousness, weakness and headaches. Endo/Heme/Allergies: Does not bruise/bleed easily. Psychiatric/Behavioral: Positive for depression. Negative for hallucinations, memory loss, substance abuse and suicidal ideas. The patient is nervous/anxious. The patient does not have insomnia. Physical Exam Constitutional: Appearance: Normal appearance. She is obese. HENT: Head: Normocephalic and atraumatic. Eyes: General: No scleral icterus. Extraocular Movements: Extraocular movements intact. Conjunctiva/sclera: Conjunctivae normal. Pupils: Pupils are equal, round, and reactive to light. Pulmonary: Effort: Pulmonary effort is normal. No respiratory distress. Skin: Coloration: Skin is not jaundiced or pale. Neurological: Mental Status: She is alert and oriented to person, place, and time. Psychiatric: Mood and Affect: Mood normal. Behavior: Behavior normal. Surgical procedure interested in: Sleeve gastrectomy EGD 03/18/21: antral and body gastritis with antral erosions. Pathology demonstrated: Stomach, antrum, biopsy Active gastritis with focal intestinal metaplasia and erosions. Immunohistochemical stain for Helicobacter pylori is negative for organisms. Gastroesophageal junction, biopsy Benign squamousmucosa showing no pathologic abnormalities. Repeat EGD 05/20/21: WNL, no evidence of IM Upper GI: defer to EGD GES: Accelerated rate of emptying RUQ US: NAFLD, hepatomegaly (23.2cm) s/p cholecystectomy Sleep Study: Mild BRISEYDA- does not need CPAP per sleep medicine (scanned in 03/02/22) CXR: per pulmonary clearance EKG: per cardiac clearance H Pylori negative Labs: complete, elevated liver enzymes Nicotine use <12 months: NA - quit over 12 months ago Antiplatelet/anticoagulants: Baby Aspirin - takes for hx of PE/DVT (OK to continue baby ASA prior to surgery per Dr. Rosas- Planned SG- will be on Lovenox x 4 weeks post op then can resume Baby ASA) Immunosuppressive therapy: No Estrogen therapy: No Evaluations Psychology: cleared 06/17/21 Nutrition: cleared 03/16/22 Education class: complete 03/03/22 Clearances: Cardiac (low 11/29/21) and PCP (low), pulmonology/sleep (low 03/02/22), gastroenterology (moderate, needs repeat LFTs and liver biopsy at time of surgery) Risk Calculator: VTE Risk: Will need 4 weeks of Lovenox based on history of PE & DVT COVID-19 Risk 3 ISS score: not diabetic Adverse events score: 2.28% Post-op Medications: Extended Lovenox: Will need 4 weeks of Lovenox based on history of PE & DVT Actigall: Not needed H2 waldo/PPI: On PPI Tylenol: will require Plan IMPRESSION: Curly Cowart is a 36 year old year old female who presents for consideration of bariatric surgery (Body mass index is 65.37 kg/m .). She does meet the criteria for a surgical weight loss procedure according to NIH guidelines. The plan of treatment for Curly is to continue with the consultations and tests ordered today in hopes ofqualifying for pre-operative clearance for bariatric surgery. She is interested in: Sleeve gastrectomy with plans to perform a staged procedure ASSESSMENT/PLAN: 1. Class 3 severe obesity due to excess calories with serious comorbidity and body mass index (BMI)of 60.0 to 69.9 in adult ([facility]) - ICD9: 278.01, V85.44, ICD10: E66.01, Z68.44 (primary diagnosis) - Today we discussed the bariatric surgical options available to her. We discussed the risks and benefits associated with both the sleeve gastrectomy and jerrica-en-y gastric bypass. At this time she isopen to either procedure, but due to her central obesity and BMI greater than 60/65, I am recommending a staged procedure. I am most concerned about her risk of GERD post op and we discussed this at length. - Due to her BMI and mostly central obesity, I am recommending a staged procedure. She expressed understanding regarding the safety reasons behind this recommendation. We will perform LSG followed byRYGB. - Today in clinic we reviewed the risk benefits packet and the informed consent. - I will perform an updated informed consent on the day of surgery for Lap versus robotic sleeve gastrectomy with liver biopsy. - Due to the Covid-19 pandemic this surgical case had been delayed/postponed. At this point in timeelective surgical cases are being restarted based on recommendations of the Governor of the [facility]. We have extensively discussed the nature of these circumstances with the patient and have informed them of the risks associated with bariatric surgery including but not limited to postoperative bleeding, infection, deep vein thrombosis, pulmonary embolism, dehydration/vitamin deficiency/malnutrition, pneumonia, myocardial infarction, marginal ulceration, and bowel obstruction. Although we will perform appropriate precautions to minimize patient exposure and risk, by undergoing surgery during the Covid-19 pandemic, the patient understands and accepts the unpredictable nature of the Covid-19 virus and the possibility of risks specific to the Covid- 19 virus including but not limited to pneumonia, respiratory failure, sepsis, blood clots in different organs, heart attack, stroke, multiple organ failure, and . All of these risk factors are especially heightened in patients with obesity. The patient understands and accepts these risks prior to proceeding with bariatric surgery. - PST 2. History of DVT (deep vein thrombosis) - ICD9: V12.51, ICD10: Z86.718 - She just recently found out that she does not have the actual deficiency, but is simply a carrier. We will still treat her with Lovenox BID x4 weeks since she has a history of DVT 3. AAT (ouzmu-3-citutfffwme) deficiency (HCC) - ICD9: 273.4, ICD10: E88.01 - She just recently found out that she does not have the actual deficiency, but is simply a carrier. We will still treat her with Lovenox BID x4 weeks since she has a history of DVT 4. BRISEYDA (obstructive sleep apnea) - ICD9: 327.23, ICD10: G47.33 - Per pulmonary, no need for CPAP. 5. NAFLD (nonalcoholic fatty liver disease) - ICD9: 571.8, ICD10: K76.0 - Will obtain a liver biopsy on the day of surgery due to fibrosis scan findings. 6. Heartburn - ICD9: 787.1, ICD10: R12 - Continue current medical management - We discussed at length the possibility of temporary versus chronic GERD following the LSG. She will continue Protonix daily. She understands that there is a risk of worsening GERD until we performed the planned second stage surgery of RYGB. Nutrition Counseling Practice these: - Eat 3 meals daily can use approved/recommended protein shake as 1 meal replacement (should be <200 calories, 20-30g protein, <5g added sugar) - Keep a food journal 5-7x/week (consider [employer] or [employer] joanna) and demonstrate meeting protein goal (60-90g protein for females, 70-105g protein for males)- Lean meats, fish, low fat dairy - cottage cheese, Nepalese yogurt, light yogurt, cheese, ricotta cheese, nuts, peanut butter, beans/legumes. Eat protein first at all meals. and 64oz of caffeine-free, carbonation-free fluids at least 5 days per week - engage in formal, planned exercise 5x/week for 30 minutes of cardiovascular activity OR 150+ minutes of cardiovascular activity per week - eliminate all caffeine, carbonation, alcohol and sugar-containing beverages from diet consider sugar-free drink mixes, water, decaf coffee and tea - Separate eating and drinking by 30 minutes - Chew your food 20-30x per bite - Sip beverages slowly no guzzling or gulping Information regarding probable and potential postoperative complications, dietary and medical postoperative limitations, and potential cosmetic sequelae has been received by individual. Tata Rosas MD Advanced Laparoscopic and Bariatric Surgery Medical Decision Making: Problems: Moderate: 2+ stable chronic illnesses Data: Unique source(s) for external note(s) reviewed: 3+ Unique test result(s) reviewed: 3+ Discussed management or test w/ external physician/QHCP/source Risk: High: Decision on elective major surgery w/ risk factors Medical Decision Making Level: 5 - High Today's visit is a virtual visit required by ongoing precautions to prevent spread and transmissionof COVID19 during the current pandemic. The visit was in lieu of an in person visit due to these restrictions and was done virtually as approved currently by the [facility] [place] [facility] which has transiently waved [facility] requirements. The patient agreed to this virtual visit documented in this encounterEast [facility]07-[facility]22 History of Present illness Narrative* Amirah Flores, NELLA - 03/16/2022 11:30 AM EDT Curly Cowart This patient encounter was completed virtually using a secure, HIPPA compliant video chat software program with the patient's consent. Pre-Op weight goal: 355 lbs Education Class: Patient will receive instruction regarding healthy food choices and eating behaviors identified as optimal when preparing for surgery, losing weight after surgery, and maintaining weight loss long-term. Patient will also receive instruction regarding the Bariatric Full Liquid diet following surgery and optimal post-operative high-protein supplement choices. Education class to be completed prior to surgery. Behaviors Accomplished: Visit # 11 Date: 03/16/22 Weight: 405 lbs Weight goal met: No, weight stable since last RD visit, 50# above GW (pt reports struggling with water weight) Behaviors that helped/hindered weight loss: helped Keeping journal daily Eating 3 meals/one snack Choose healthy foods Daily multivitamin Drink between meals Sip beverages slowly Eat slowly,chew well No high fat/fast foods D/c'd caffeinated, carbonated beverages Exercise: 150 min/week as tolerated Written information provided and reviewed: Preop Wt Loss Diet Post-operative high-protein supplement: 30g protein shakes (premier/ensure/fairlife) Vitamin/mineral supplement: bariatric MV w/ 18mg iron and calcium citrate divided doses 24 hr recall: 03/15 B: 08/29 vidya smith L: mini supreme pizza D: cheeseburger - no bun, w/ L/Tpickles S: nathanael cup F: 64 oz Protein per recall:per pt joanna:56g Protein intake: 02/28, 03/01, 03/02, 03/05, 03/06: 50g, 85g, 85g, 50g, 50g 03/08, 03/10, 03/12, 03/13, 03/14: 60g, 59g, 54g, 85g, 85g Fluid intake: 50-72 oz Exercise: chair exercises 3x/week for 30 minutes, using exercise on oculus 30 min 2-3x/week -- meeting goals Caffeine: none Carbonation: none Alcohol: none Dining out: 1-2x/month Sipping slowly/frequently: Yes Taking small bites/chewing 20-30x per bite: Yes food and fluid by 30 minutes: Yes Patient presents for month 07/03, this is her fourth (nutrition) follow up since receiving updated nutrition clearance from early december -- was previously cleared 05/26. Verbalized she is keeping a food a food journal at least 5 days per week via [employer] joanna. Per 24 hr recall, meeting lower range of protein goals, able to meet fluid goals. Upon further review of food journal, patient able to demonstrate at least 5 days of keeping a food journal. Giana ponce reviewed importance of meeting protein/fluid goals daily (60-90g/64 oz). Is endorsing in planned/formal exercise at least 5x/week for 30 minutes. Reports taking daily MV (flintstones w/ iron) at this time. The patient meets NIH guidelines for weight loss surgery and has been thoroughly evaluated and educated on good dietary practices. Patient is capable of following these guidelines pre-and post-surgically. From nutrition standpoint, the patient is cleared for weight loss surgery. No additional visits with nutrition are required at this time; however, patient is welcome to return as needed/desired before or after surgery. *All requirements have been met. Additional requirements may arise in course of treatment. *THIS PATIENT RECEIVED INSTRUCTIONS FOR VLCD, ERAS, AND DISCHARGE DIET INFORMATION WITH PLAN TO CONSENT W/ SURGEON AT NEXT APPOINTMENT-PROVIDED POST-OP FOOD JOURNAL AND WILL RECEIVE ENSURE CLEAR BEVERAGES AT CONSENT APPOINTMENT Plan: no RD follow up at this time Goals formal exercise 5-7x/week for 30 minutes OR 150 min/week (walking, chair exercises, HASFIT youtube videos)--consider 10 minute intervals journal daily and bring to all appointments--maintain at least 5-7x/week meet 60-90g protein and 64oz of fluids per day I spent 20 minutes in the visit, with more than 50% of the total [id number] time of the visit in counseling / coordination of care. Amirah Flores RD This note was generated using voice recognition technology and may contain grammatical errors. documented in this encounterEast [facility] Hospital07-19-2022 Miscellaneous Notes* Telephone Encounter - Katie Alvarez MA - 03/15/2022 8:34 AM EDT Called patient for pre-checkin. No answer, and no voicemail set up or it was full Katie Alvarez MA March 15, 2022 documented in this encounterEast [facility] Hospital06-21-2022 History of Present illness Narrative* Marjan Eddy APRN.[facility] - 02/15/2022 9:33 AM EDT BARIATRIC SURGERY CLINIC FOLLOW UP NOTE DISTANCE HEALTH VISIT This Team Access Model visit is a virtual encounter. It required patient- provider interaction for the medical decision making as documented below. Consent was obtained to complete today's distance health visit. HPI: Curly Cowart a 36 year old female for presents for medically supervised weight loss treatment of her obesity related co morbidities. This individual presents for month 10 of 6 required visits completed as a virtual telephone encounter Curly Cowart weight calculation has decreased by 10# since her last visit. She denies recent illnesses, recent hospitalizations, recent ED visits. Denies acid reflux, abdominal pain, changes to stool pattern.She states that she has felt the best she has in quite some time has noticed less inflammation and has improved her mood/motivation for surgery. Patient has completed abdominal ultrasound and fibrosis scan. The result indicates that there is some scarring to the liver but is minimal. Gastroenterology recommends repeat LFTs, which has been ordered by them, and liver biopsy at the time of surgery. She has been cleared from their standpoint toproceed. She followed up with pulmonary medicine who ordered a CT chest due to lung nodule no further work-up is needed or additional scans given small size of the nodule. 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 currently 5 cigarettes/month Vaping Use Vaping Use: Never used Substance Use Topics Alcohol use: Not Currently Drug use: No Medications: Current Outpatient Medications Medication Sig furosemide (LASIX) 20 mg tablet Take 20 mg by mouth once daily. cholecalciferol (VITAMIN D-3) 5,000 unit tab Take 1 tablet by mouth once daily. pantoprazole DR (PROTONIX) 40 mg tablet Take 1 tablet by mouth once daily. Lactobac no.41/Bifidobact no.7 (PROBIOTIC-10 ORAL) Take by mouth. amitriptyline (ELAVIL) 25 mg tablet TAKE 1 TABLET BY MOUTH EVERYDAY AT BEDTIME venlafaxine ER (EFFEXOR XR) 75 mg 24 hr capsule Take 75 mg by mouth twice daily. aspirin, enteric coated (ADULT LOW DOSE ASPIRIN) 81 mg EC tablet Take 1 tablet by mouth once daily. LORazepam (ATIVAN) 0.5 mg tab Take 1 mg by mouth as needed. thiamine mononitrate (VITAMIN B-1, MONONITRATE,) 100 mg tab Take 1 tablet by mouth once daily. (Patient not taking: Reported on 01/13/2022 ) hydroCHLOROthiazide (HYDRODIURIL, ESIDRIX) 25 mg tablet Take 25 mg by mouth once daily. (Patient not taking: Reported on 01/13/2022 ) Current Facility-Administered Medications Medication Dose Route Frequency sodium chloride 0.9 % (flush) 10 mL (BD POSIFLUSH) 10 mL INTRAVENOUS DIRECTED PRN REVIEW OF SYSTEMS General: No fatigue or fevers HEENT: Negative for frequent or significant headaches, No changes in hearing or vision, no nose bleeds or other nasal problems PAP Therapy: Not needed. GI:No nausea, vomiting, or diarrhea and No heartburn or reflux symptoms Muskuloskeletal: Negative for joint pain or swelling, back pain or muscle pain Skin: Negative for lesions, rash, and itching Psych: Negative for sleep disturbance, mood disorder and recent psychosocial stressors PHYSICAL EXAMINATION Wt 183.7 kg (405 lb) BMI 65.37 kg/m2 Ht 167.6 cm (5' 6) BMI 65.37 kg/m2 GENERAL APPEARANCE: Pleasant, interacts appropriately and in no apparent distress. Appropriately groomed, happy, smiling, and interactive SKIN: Skin of normal texture, temperature without rashes/lesions/ulcerations. LUNGS: unlabored on room air negative findings: normal respiratory rate no cough NEURO/PSYCH: Oriented to person, place, time; appropriate insight and judgement. Appropriate affect. Diagnostic Tests Reviewed for Today's Visit Most recent lab and imaging results The plan of treatment for Curly Cowart is Further Work-up: Surgical procedure interested in: Sleeve gastrectomy EGD 03/18/21: antral and body gastritis with antral erosions. Pathology demonstrated: Stomach, antrum, biopsy Active gastritis with focal intestinal metaplasia and erosions. Immunohistochemical stain for Helicobacter pylori is negative for organisms. Gastroesophageal junction, biopsy Benign squamousmucosa showing no pathologic abnormalities. Repeat EGD 05/20/21: WNL, no evidence of IM Upper GI: defer to EGD GES: Accelerated rate of emptying RUQ US: NAFLD, hepatomegaly (23.2cm) s/p cholecystectomy Sleep Study: Mild BRISEYDA- does not need CPAP per sleep medicine (note in epic 08/18/20) CXR: per pulmonary clearance EKG: per cardiac clearance H Pylori negative Labs: complete, elevated liver enzymes Nicotine use <12 months: NA - quit over 12 months ago Antiplatelet/anticoagulants: Baby Aspirin - takes for hx of PE/DVT (OK to continue baby ASA prior to surgery per Dr. Rosas- Planned SG- will be on Lovenox x 4 weeks post op then can resume Baby ASA) Immunosuppressive therapy: No Estrogen therapy: No Evaluations Psychology: cleared 06/17/21 Nutrition: needs updated Education class: complete 05/19/21 Clearances: Cardiac (low 11/29/21) and PCP (low), pulmonology/sleep (+added for COVID), gastroenterology (moderate, needs repeat LFTs and liver biopsy at time of surgery) Risk Calculator: VTE Risk: Will need at least 4 weeks of Lovenox based on history of PE & DVT COVID-19 Risk 3 ISS score: not diabetic Adverse events score: 2.28% Post-op Medications: Extended Lovenox: Will need at least 4 weeks of Lovenox based on history of PE & DVT - RX sent Actigall: Not needed H2 waldo/PPI: On PPI - refill sent Tylenol: will require - RX sent ASSESSMENT/PLAN: 1. Class 3 severe obesity due to excess calories with serious comorbidity and body mass index (BMI)of 60.0 to 69.9 in adult (HCC) - ICD9: 278.01, V85.44, ICD10: E66.01, Z68.44 (primary diagnosis) Weight decreasing - Behavioral intervention and - Medical nutrition therapy with dietitian - Continue keeping a food journal and making positive diet lifestyle changes. Patient will follow-up with RD next month to reassess clearance status after making recommended changes. 2. Elevated liver enzymes - ICD9: 790.5, ICD10: R74.8 - Mild scarring of lvier noted on fibrosis scan. She has been cleared from gastroenterology standpoint to proceed with surgery. They recommend liver biopsy at the time of surgery. - repeat hepatic panel ordered by GI 3. COVID-19 [facility] - ICD9: 139.8, ICD10: U09.9 - Requesting clearance letter from pulmonology 4. BRISEYDA (obstructive sleep apnea) - ICD9: 327.23, ICD10: G47.33 - Requesting okay to not use CPAP to treat mild BRISEYDA and clearance letter from pulmonology Still needs clearance from nutrition and pulmonology. Follow-up with [employer] [facility] next month to review clearance status. She is scheduled in March to re-consent with Dr. Rosas. Marjan Eddy APRN.[facility] Total time in direct patient contact = 13 min. Greater than 50% of the time was spent in counselingand/or coordination of care. This note was generated using voice recognition technology and may contain grammatical errors. documented in this encounterEast [facility] Hospital06-21-2022 History of Present illness Narrative* Audrey Spivey RD - 02/15/2022 9:00 AM EDT Curly Cowart--Visit conducted via [employer] (audio and visual) d/t COVID 19 Month 11/--month 3 of updated clearance Pre-Op weight goal:355# Education Class: Patient will receive instruction regarding healthy food choices and eating behaviors identified as optimal when preparing for surgery, losing weight after surgery, and maintaining weight loss long-term. Patient will also receive instruction regarding the Bariatric Full Liquid diet following surgery and optimal post-operative high-protein supplement choices. Education class to be completed prior to surgery. Behaviors Accomplished: Visit # 11 Date: 02/15/2022 Weight: (!) 183.7 kg (405 lb) per pt report Weight goal met: No: Pt presents with a 9# wt loss since last encounter. Currently 35# above initial wt and 50# above GW. Of note, has lost 14# since requiring updated clearance status. Behaviors that helped/hindered weight loss: HELPED: reports has been moving more, having issues with water weight. Eating 3 meals/one snack Daily multivitamin Drink between meals Sip beverages slowly Eat slowly,chew well D/c'd caffeinated, carbonated beverages Exercise: formal exercise of chair exercises for around 30 minutes (2, 15 minute intervals) + more stretching on breaks + intervals of walking during work (not in 10 minute intervals)--5-7 days per week of going outside--30-90 minutes (does report inceasing heart rate) -reports occasional dining out meals, <1x/week (jimbo) 24 hr recall: B: [employer] protein shake--42g protein L: toast w/ kerrygold D: 1 grilled cheese sandwich S: 1 ice-cream sandwich F: 32oz tumbler-will push for 2-2.5 per day P: 58+g protein Written information provided and reviewed: Healthy plate/menus Behavior Checklist Journal Pt verbally reports maintaining a food journal 3 days per week, reports some days completely forgetting--wants to set alarms. Varies with documentation. Patient presents for month 11, note this is her third follow-up visit since requiring updated nutrition clearance early December. Does present with a 9 pound weight loss since last encounter. States overall decreased appetite related to higher temperatures, she does report using protein shake as needed for meal replacement. Overall, has discontinued all caffeine/carbonation/alcohol. Also limiting dining out meals to 1 2 times per month. Focusing on vegetables and protein for dinner. She does admit to challenges of maintaining her food log, verbalizes desire to set timers--suggested at last encounter. Reviewed need of maintaining a food log at least 5 days/week to demonstrate meeting both protein and fluid goals for nutrition clearance. Of note, she does consume 2, 32 ounce tumblers of water per day to meet her daily fluid goal. Her 24-hour recall demonstrates just being at protein goal or slightly below. Did review protein goal of 60-90 g of protein per day. She has also implemented more activity this past month, has started with chair exercises 3 times per week for approximately 30 minutes in intervals as tolerated. Has also been making more efforts with yard work and overall activity. We did review need of 150 active minutes per week of planned, formal activity in at least 10-minute intervals. Suggested increasing chair exercises to 5 days a week for 30 minutes plus additional yard work/activity as tolerated. Goals: Goals formal exercise 5-7x/week for 30 minutes OR 150 min/week (walking, chair exercises, HASFIT youtube videos)--consider 10 minute intervals journal daily and bring to all appointments--maintain at least 5-7x/week meet 60-90g protein and 64oz of fluids per day The patient meets NIH guidelines for weight loss surgery and has been thoroughly evaluated and educated on good dietary practices. Patient is capable of following these guidelines pre-and post-surgically. From nutrition standpoint, the has partially met nutrition clearance and will need to demonstrate maintaining a food journal 5-7x/week, demonstrate meeting protein/fluid goals 5- 7x/week and increasing formal, planned activity to 150 minutes per week to receive nutrition clearance. Plan: follow up with RD x 1 month--of note, pt is scheduled for re-consent appt in March per [facility] [facility] note 02/15/22. Total time in direct patient contact = 29 minutes. Greater than 50% of the time was spent in counseling and/or coordination of care. Audrey Spivey RD This note was generated using voice recognition technology and may contain grammatical errors. documented in this encounterEast [facility] Hospital06-20-2022 Miscellaneous Notes* Telephone Encounter - Laly Nguyen RN - 02/14/2022 4:00 PM EDT I did one and sent it to their office. Thanks, Hung Emerson MD Message text * Telephone Encounter - Laly Nguyen RN - 02/09/2022 1:52 PM EDT Patient is requesting a clearance letter for bariatric surgery sent to Dr Rosas . Laly Nguyen RN documented in this encounterEast [facility] Hospital06-16-2022 Miscellaneous Notes* Telephone Encounter - Deanna Hale Asst - 02/10/2022 3:37 PM EDT Order for pulmonary clearance faxed to [facility]. Deanna Timmons Adm Asst documented in this encounterEast [facility] Hospital06-15-2022 Miscellaneous Notes* Telephone Encounter - Laly Nguyen RN - 02/09/2022 1:46 PM EDT Called patient to inform her Ct chest shows small ( 5mm ) pulmonary nodule that does not require follow up unless she is smoking again . Awaiting bariatric surgery . Laly Nguyen RN * Telephone Encounter - Laly Nguyen RN - 02/09/2022 1:46 PM EDT ----- Message from Hung Emerson MD sent at 02/07/2022 3:08 PM EDT ----- Please let the patient know that her chest CT does show a small (5 mm) pulmonary nodule that does not require any follow up unless she is smoking again. If she is smoking regardless of how lightly she is smoking, she should have another chest CT in 12 months. Thanks, Hung Emerson MD documented in this encounterEast Ohio [facility] Hospital06-14-2022 Miscellaneous Notes* Telephone Encounter - Marjan Eddy APRN.CNP - 02/08/2022 1:58 PM EDT Noted. Will communicate this to Dr. Rosas for surgical planning. Thank you! Marjan Eddy APRN.CNP * Telephone Encounter - Brooks Soto MD - 02/08/2022 12:01 PM EDT I signed her GI risk stratification for bariatric surgery. I suggest she get another set of LFT's before and likely needs iver biopsy if possible during the surgery. It would be beneficial. documented in this encounterEast [facility] Hospital06-08-2022 Miscellaneous Notes* Telephone Encounter - Lisa Esparzauber - 02/02/2022 8:49 AM EDT Images from the original note were not included. Marjan Eddy, AIR EXPORT COORDINATOR.HOT WORKER [facility] Bariatric Surgery Pool Please request pulmonary/sleep clearance with OK to not use CPAP for mild BRISEYDA before surgery. We did have the OK from sleep med in from 2019. Please request clearance from gastroenterology FAXED. Brooks Soto MD Gastroenterology 02/02/2022 End 02/02/22 ; Hung Emerson MD Pulmonary and Critical Care Medicine 02/02/2022 End 02/02/22 ; Lisa Storey [facility]. P: [phone] Ext [phone] documented in this encounterEast Ohio [facility] Hospital06-08-2022 History of Present illness Narrative* RT Kay(Duncan) - 02/02/2022 8:45 AM EDT Radiology Service Progress Note PATIENT NAME: Curly Cowart DATE OF SERVICE: February 02, 2022 TIME: 7:23 AM PATIENT IDENTITY VERIFICATION COMPLETED USING TWO (2) IDENTIFIERS: Name and Date of confirmedby patient verbally. FALL SCREENING: Has the patient had 2 falls in the last year or 1 fall with injury or currently using an Ambulatory Assistive Device (Walker, Cane, Wheelchair, Crutches, etc.)? No PATIENT GENDER DATA: Female. status: : No status: N/A PATIENT RELEVANT IMPLANT DATA REVIEWED: Not Applicable RADIOLOGY DEPARTMENT: Ultrasound PERIPHERAL IV DATA: Not applicable SIGNED BY: RT Kay(R) February 02, 2022 7:23 AM documented in this encounterEast Ohio [facility] Hospital06-08-2022 History of Present illness Narrative* Mary Laguerre - 02/02/2022 6:54 AM EDT PULM FUNCTION SMARTBLOCK: Provider: Hung Emerson MD Assisting Tech: Mary Laguerre Spirometry w/BD: 1 DLCO: 1 LV - Box: 1 System: [id number] documented in this encounterEast Ohio [facility] Hospital05-24-2022 History of Present illness Narrative* Marjan Eddy, AIR EXPORT COORDINATOR.[facility] - 01/18/2022 9:25 AM EDT BARIATRIC SURGERY CLINIC FOLLOW UP NOTE DISTANCE HEALTH VISIT This Team Access Model visit is a virtual encounter. It required patient- provider interaction for the medical decision making as documented below. Consent was obtained to complete today's distance health visit. HPI: Curly Cowart a 36 year old female for presents for medically supervised weight loss treatment of her obesity related co morbidities. This individual presents for month 9 of 6 required visitscompleted as a virtual telephone encounter Curly Cowart weight calculation is unchanged since her last visit. Denies recent illnesses, recent hospitalizations, recent ED visits. Denies worsening acid reflux symptoms, abdominal pain, changes to stool pattern. Her PCP tested her for autoimmune hepatitis which came back positive. She had an appt with GI regarding elevated liver enzymes and hepatomegaly - she has lab work pending and an abd US ordered. She followed up with pulmonology who ordered a CT chest and PFTs- which is scheduled in January. PCP started her on lasix to help with LE edema she has noticed a slight difference. 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 currently 5 cigarettes/month Vaping Use Vaping Use: Never used Substance Use Topics Alcohol use: Not Currently Drug use: No Medications: Current Outpatient Medications Medication Sig furosemide (LASIX) 20 mg tablet Take 20 mg by mouth once daily. cholecalciferol (VITAMIN D-3) 5,000 unit tab Take 1 tablet by mouth once daily. pantoprazole DR (PROTONIX) 40 mg tablet Take 1 tablet by mouth once daily. Lactobac no.41/Bifidobact no.7 (PROBIOTIC-10 ORAL) Take by mouth. amitriptyline (ELAVIL) 25 mg tablet TAKE 1 TABLET BY MOUTH EVERYDAY AT BEDTIME venlafaxine ER (EFFEXOR XR) 75 mg 24 hr capsule Take 75 mg by mouth twice daily. aspirin, enteric coated (ADULT LOW DOSE ASPIRIN) 81 mg EC tablet Take 1 tablet by mouth once daily. LORazepam (ATIVAN) 0.5 mg tab Take 1 mg by mouth as needed. thiamine mononitrate (VITAMIN B-1, MONONITRATE,) 100 mg tab Take 1 tablet by mouth once daily. (Patient not taking: Reported on 01/13/2022 ) hydroCHLOROthiazide (HYDRODIURIL, ESIDRIX) 25 mg tablet Take 25 mg by mouth once daily. (Patient not taking: Reported on 01/13/2022 ) Current Facility-Administered Medications Medication Dose Route Frequency sodium chloride 0.9 % (flush) 10 mL (BD POSIFLUSH) 10 mL INTRAVENOUS DIRECTED PRN REVIEW OF SYSTEMS General: No fatigue or fevers HEENT: Negative for frequent or significant headaches, No changes in hearing or vision, no nose bleeds or other nasal problems PAP Therapy: Not needed. GI:No nausea, vomiting, or diarrhea and No heartburn or reflux symptoms Muskuloskeletal: joint pain or swelling Skin: Negative for lesions, rash, and itching Psych: Negative for sleep disturbance, mood disorder and recent psychosocial stressors PHYSICAL EXAMINATION Wt 187.8 kg (414 lb) BMI 66.82 kg/m2 Ht 167.6 cm (5' 6) BMI 66.82 kg/m2 GENERAL APPEARANCE: Pleasant, interacts appropriately and in no apparent distress. Appropriately groomed, happy, smiling, and interactive SKIN: Skin of normal texture, temperature without rashes/lesions/ulcerations. LUNGS: unlabored on room air negative findings: normal respiratory rate no cough NEURO/PSYCH: Oriented to person, place, time; appropriate insight and judgement. Appropriate affect. Diagnostic Tests Reviewed for Today's Visit Most recent lab and imaging results The plan of treatment for Curly Cowart is Further Work-up: Surgical procedure interested in: Sleeve gastrectomy EGD 03/18/21: antral and body gastritis with antral erosions. Pathology demonstrated: Stomach, antrum, biopsy Active gastritis with focal intestinal metaplasia and erosions. Immunohistochemical stain for Helicobacter pylori is negative for organisms. Gastroesophageal junction, biopsy Benign squamousmucosa showing no pathologic abnormalities. Repeat EGD 05/20/21: WNL, no evidence of IM Upper GI: defer to EGD GES: Accelerated rate of emptying RUQ US: NAFLD, hepatomegaly (23.2cm) s/p cholecystectomy Sleep Study: Mild BRISEYDA- does not need CPAP per sleep medicine (note in epic 08/18/20) CXR: per pulmonary clearance EKG: per cardiac clearance H Pylori negative Labs: complete, elevated liver enzymes Nicotine use <12 months: NA - quit over 12 months ago Antiplatelet/anticoagulants: Baby Aspirin - takes for hx of PE/DVT (OK to continue baby ASA prior to surgery per Dr. Rosas- Planned SG- will be on Lovenox x 4 weeks post op then can resume Baby ASA) Immunosuppressive therapy: No Estrogen therapy: No Evaluations Psychology: cleared Nutrition: needs updated Education class: complete 05/19/21 Clearances: Cardiac (low 11/29/21) and PCP (low), pulmonology/sleep (+added for COVID), gastroenterology Risk Calculator: VTE Risk: Will need at least 4 weeks of Lovenox based on history of PE & DVT COVID-19 Risk 3 Post-op Medications: Extended Lovenox: Will need at least 4 weeks of Lovenox based on history of PE & DVT - RX sent Actigall: Not needed H2 waldo/PPI: On PPI - refill sent Tylenol: will require - RX sent ASSESSMENT/PLAN: 1. Class 3 severe obesity due to excess calories with serious comorbidity and body mass index (BMI)of 60.0 to 69.9 in adult (HCC) - ICD9: 278.01, V85.44, ICD10: E66.01, Z68.44 (primary diagnosis) Stable - Behavioral intervention and - Medical nutrition therapy with dietitian - Will need updated clearance from RD due to weight gain and updated visit with Dr. Rosas due to weight sigrid and medical changes 2. Elevated liver enzymes - ICD9: 790.5, ICD10: R74.8 - Requesting clearance from GI once US abdomen and lab works comes back 3. COVID-19 long hauler - ICD9: 139.8, ICD10: U09.9 - CT ordered by pulmonology - Requesting updated pulmonology clearance with OK to not use CPAP to treat mild BRISEYDA - we have the OK from sleep med back in 2019 4. Hepatomegaly - ICD9: 789.1, ICD10: R16.0 - As above Still needs clearance from nutrition, GI, and pulmonology. She needs an updated visit with Dr. Rosas due to weight gain and changes to medical history. Follow up with STEEL DIE ENGRAVER 4 weeks to review clearance status. Marjan Eddy APRN.SWATI Total time in direct patient contact = 14 min. Greater than 50% of the time was spent in counselingand/or coordination of care. This note was generated using voice recognition technology and may contain grammatical errors. documented [facility] this encounter[facility] Miscellaneous Notes* Telephone Encounter - Laly Nguyen RN - 01/14/2022 11:12 AM EDT Patient was notified her alpha 1 antitrypsin level is normal . We are still waiting to see if she is carrier of the gene however . Laly Nguyen RN * Telephone Encounter - Laly Nguyen RN - 01/14/2022 11:12 AM EDT ----- Message from Hung Emerson MD sent at 01/14/2022 7:48 AM EDT ----- Please let the patient know that her alpha 1-antitrypsin level is normal. We are still waiting to see if she ia carrier of the gene however. documented in this encounterEast [facility]05-[facility]22 History of Present illness Narrative* Brooks Soto MD - 01/13/2022 10:56 AM EDT HPI: Curly Cowart is a 36 year old female who presents for Established Patient Follow-Up. Pt is herefor inc liver enzymes via referral from Dr. Rosas's office as she has seen pt for bariatric surgery. Last LFT's here were reviewed from December 21. Labs from seen recently also. AMA, neg, but ASMA +, but I do not see a FERNANDO-but this has been neg in past, Ceruloplasmin also neg.in past. Has fatty liver on last US in 2020. Has a lot fatique, some RUQ pain more random off/on x 20 yrs. Has occas dysphagia but has had endoscopy w Dr. Rosas x 2. Has had some gastritis in past, and has been on pantoprazole. No bleeding, but may have some constipation. Hep C and hep B have been neg. Recently. Pt's F had OLT for TORRES vs [id number]-8-[id number] def. Has had hep A and B vaccines. Pt says she has gained 40# in the last 3 mos. Current Outpatient Medications Medication Sig furosemide (LASIX) 20 mg tablet Take 20 mg by mouth once daily. cholecalciferol (VITAMIN D-3) 5,000 unit tab Take 1 tablet by mouth once daily. pantoprazole DR (PROTONIX) 40 mg tablet Take 1 tablet by mouth once daily. Lactobac no.41/Bifidobact no.7 (PROBIOTIC-10 ORAL) Take by mouth. amitriptyline (ELAVIL) 25 mg tablet TAKE 1 TABLET BY MOUTH EVERYDAY AT BEDTIME venlafaxine ER (EFFEXOR XR) 75 mg 24 hr capsule Take 75 mg by mouth twice daily. aspirin, enteric coated (ADULT LOW DOSE ASPIRIN) 81 mg EC tablet Take 1 tablet by mouth once daily. LORazepam (ATIVAN) 0.5 mg tab Take 1 mg by mouth as needed. thiamine mononitrate (VITAMIN B-1, MONONITRATE,) 100 mg tab Take 1 tablet by mouth once daily. (Patient not taking: Reported on 01/13/2022 ) hydroCHLOROthiazide (HYDRODIURIL, ESIDRIX) 25 mg tablet Take 25 mg by mouth once daily. 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 Irritable bowel syndrome Morbid obesity (HCC) stated BMI 47.3 BRISEYDA (obstructive sleep apnea) Other chronic nonalcoholic liver disease Personal history of tobacco use, presenting hazards to health 1/2 ppd x 5 years; quit 08/18/14 Pulmonary embolism (HCC) after PICC line V-tach (HCC) PAST SURGICAL HISTORY Procedure Laterality Date DELIVERY ONLY 2003 , low cervical CHOLECYSTECTOMY 01/08/2008 EXC/DSTRJ LINGUAL TONSIL ANY METHOD SPX 2003 LAPAROSCOPIC UTERINE NERVE ABLATION 2011 LIVER BIOPSY 2007 MIDLINE CATHETER 09/21/2018 PAST SURGICAL HISTORY OF 2009 spring coils in fallopian tubes S BALLOON,UTERINE ABLATION [id number] 2010 SHX CARDIAC RADIOFREQUENCY ABLATION ventricular TONSILLECTOMY PRIMARY/SECONDARY <AGE 12 2003 Tonsillectomy, wisdom teeth FAMILY HISTORY Problem Relation Age of Onset Anxiety disorder Mother panic attacks Heart Attack Father 54 Heart disease Father coronary stents other (liver disease) Father alpha 1 antitrypsin; has liver transplant other (atrial fibrillation) Father Thyroid Sister Hashimotos Anxiety disorder Sister other (atrial fibrillation) Paternal Grandmother Heart disease Paternal Grandfather heart transplant other (liver failure) Paternal Grandfather Anxiety disorder Sister other (atrial fibrillation) Paternal Uncle other (atrial fibrillation) Paternal Aunt Social History Tobacco Use Smoking status: Former Smoker Packs/day: 0.50 Years: 10.00 Pack years: 5.00 Types: Cigarettes Quit date: 2019 Years since quittin.3 Smokeless tobacco: Never Used Tobacco comment: total quit 2017. currently 5 cigarettes/month Vaping Use Vaping Use: Never used Substance Use Topics Alcohol use: Not Currently Drug use: No ALLERGIES Allergen Reactions Bupropion Rash Citalopram Other: See Comments, Vomiting Hydrocodone-Acetami* Hives, GI Upset Meclizine Other: See Comments Morphine Other: See Comments Abdominal pain Nadolol Itching Penicillins Hives REVIEW OF SYSTEMS GENERAL: No weight loss, malaise or fevers. HEENT: Negative for frequent or significant headaches, No changes in hearing or vision, no nose bleeds or other nasal problems. NECK: Negative for lumps, goiter, pain and significant neck swelling. RESPIRATORY: Negative for cough, hemoptysis, wheezing or shortness of breath CARDIOVASCULAR: Negative for chest pain, leg swelling or palpitations GI: See HPI : No history of dysuria, frequency or incontinence MUSCULOSKELETAL: Negative for joint pain or swelling, back pain or muscle pain. SKIN: Negative for lesions, rash, and itching PSYCH: Negative for sleep disturbance, mood disorder and recent psychosocial stressors NEURO: No history of headaches, syncope, paralysis, seizures or tremors PHYSICAL EXAMINATION: BP 128/76 Pulse 100 Ht 5' 6 (1.68m) Wt 414 lb 6.4 oz (188.0kg) SpO2 96% LMP 07/11/2016 BMI 66.92 kg/(m^2). GENERAL APPEARANCE: Well appearing, alert, in no acute distress, well-hydrated, well nourished.. SKIN: Skin color, texture, turgor normal, no suspicious rashes or lesions. EYES: Anicteric sclera. Pupils are equally round and reactive to light. Extraocular movements are intact. . NECK: Supple, no adenopathy; thyroid symmetric, normal size, no bruits. LUNGS: Lungs clear to auscultation. No wheezing, rhonchi, rales. HEART: RRR without murmur, gallop, or rubs. No ectopy. ABDOMEN: Normal, soft, non-tender, no masses, large liver about 10-12 FBs below costal margin. EXTREMITIES: No deformities, edema, skin discoloration, clubbing or cyanosis. NEUROLOGIC: Gait normal. Sensation and strength grossly intact.. ASSESSMENT AND PLAN: ASSESSMENT/PLAN: 1. Fatty liver - ICD9: 571.8, ICD10: K76.0 (primary diagnosis) - obviously the chan is wt loss in this pt. Has seen bariatric surgery. 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 Taylor's last note in 2018. - Follow labs already ordered thru pulmonary. 2. Increased liver enzymes - ICD9: 790.5, ICD10: R74.8 - likely scenario is NAFLD. No hx of ETOH - US ABDOMEN COMPLETE - LIVER FIBROSIS AND ACTIVITY - FERNANDO BY IFA SCREEN 3. Morbid obesity (HCC) - ICD9: 278.01, ICD10: E66.01 Weight increasing - F/up w bariatric surgery. Brooks Soto MD documented in [facility] encounter[facility]22 History of Present illness Narrative* Hung Emerson MD - 01/03/2022 4:02 PM EDT PATIENT NAME: Curly Cowart DATE OF SERVICE: January 03, 2022 PRIMARY CARE PHYSICIAN: JUNE Deshpande, PA CARE TEAM: Patient Care Team: JUNE Deshpande as PCP - General (Internal Medicine) Joshua Wall (Hist) Neel as Specialty Residential Appraiser (Cardiology) Edith Taylor MD as Specialty Residential Appraiser (Gastroenterology) Bonita Naqvi as Specialty Residential Appraiser (Rheumatology) Referral No as Referring (Cardiology) Eric Crooks MD as Primary Staff Physician (Cardiology) Tomasz Garay MD (Cardiology) HISTORY OF PRESENT ILLNESS: Curly Cowart is a 36 year old woman who presents for evaluation of her dyspnea on exertion after having been infected with COVID19 pneumonia in July 2021. She had COVID19 pneumonia in 08/17 with cough, chest congestion, low grade fevers(?), and myalgias,but this did not require hospitalization or antibiotic therapy. She notes dyspnea at rest and dyspnea on exertion as well, neither of which have abated despite herresolution of COVID19 pneumonia. She denies chronic cough, chronic sputum production, hemoptysis, chronic sinonasal congestion, postnasal drip, heartburn/acid reflux, unanticipated weight loss (she has actually gained weight), fever/chills, exposure to ill contacts, night sweats, and personal or family history of chronic lung disease. Of note, however, her father underwent liver transplantation at [facility] main campus for what was thought to be TORRES initially, but is now thought to be due to alpha 1-antitrypsin deficiency. She denies frequent or recurrent respiratory tract infections including pneumonias, sinus infections, and other upper respiratory infections. 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 HOSPITALIZATION HISTORY: Previous admit date: 09/20/2018 LAST DATE OF INFLUENZA/PNEUMONIA VACCINES: Immunization History Administered Date(s) Administered Hep A & Hep B Combined 09/25/2017 Influenza Seasonal Inj Age 3+ 06/13/2017 09/18/2018 Influenza Seasonal Trivalent Inj Pres Free 06/13/2017 09/18/2018 REVIEW OF SYSTEMS: GENERAL: Negative for fevers, malaise, chills, sweats, change in appetite or weight HEENT: Negative for headaches, nasal congestion or rhinorrhea NECK: Negative for pain and significant neck swelling NEURO: No history of headaches, syncope, seizures RESPIRATORY: Negative for cough, hemoptysis, wheezing, and dyspnea at rest and with exertion/ambulation CARDIOVASCULAR: Negative for chest pain/discomfort/pressure, orthopnea, leg swelling, or palpitations GI: No nausea, vomiting, diarrhea, heartburn or reflux symptoms : No history of dysuria, frequency or incontinence SKIN: Negative for lesions, rash, and itching MUSCULOSKELETAL: Negative for joint pain or swelling, back pain or muscle pain ? Patient's weight is stable. Last 2 Encounter Wt Readings: Date: Wt: 01/03/2022 188.2 kg (415 lb) 12/27/2021 190.1 kg (419 lb) All other 10 point review of systems were reviewed and negative except for that mentioned above. ? 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 Irritable bowel syndrome Morbid obesity (HCC) stated BMI 47.3 BRISEYDA (obstructive sleep apnea) Other chronic nonalcoholic liver disease Personal history of tobacco use, presenting hazards to health 1/2 ppd x 5 years; quit 08/18/14 Pulmonary embolism (HCC) after PICC line V-tach (HCC) PAST SURGICAL HISTORY: PAST SURGICAL HISTORY Procedure Laterality Date DELIVERY ONLY 2003 , low cervical CHOLECYSTECTOMY 01/08/2008 EXC/DSTRJ LINGUAL TONSIL ANY METHOD SPX 2003 LAPAROSCOPIC UTERINE NERVE ABLATION 2011 LIVER BIOPSY 2008 MIDLINE CATHETER 09/21/2018 PAST SURGICAL HISTORY OF 2009 spring coils in fallopian tubes S BALLOON,UTERINE ABLATION [id number] 2009 SHX CARDIAC RADIOFREQUENCY ABLATION ventricular TONSILLECTOMY PRIMARY/SECONDARY <AGE 12 2003 Tonsillectomy, wisdom teeth PAST FAMILY HISTORY: FAMILY HISTORY Problem Relation Age of Onset Anxiety disorder Mother panic attacks Heart Attack Father 54 Heart disease Father coronary stents other (liver disease) Father alpha 1 antitrypsin; has liver transplant other (atrial fibrillation) Father Thyroid Sister Hashimotos Anxiety disorder Sister other (atrial fibrillation) Paternal Grandmother Heart disease Paternal Grandfather heart transplant other (liver failure) Paternal Grandfather Anxiety disorder Sister other (atrial fibrillation) Paternal Uncle other (atrial fibrillation) Paternal Aunt SOCIAL HISTORY: Social History Tobacco Use Smoking status: Former Smoker Packs/day: 0.50 Years: 10.00 Pack years: 5.00 Types: Cigarettes Quit date: 2020 Years since quittin.3 Smokeless tobacco: Never Used Tobacco comment: total quit 2017. currently 5 cigarettes/month Vaping Use Vaping Use: Never used Substance Use Topics Alcohol use: Not Currently Drug use: No ALLERGIES: ALLERGIES Allergen Reactions Bupropion Rash Citalopram Other: See Comments, Vomiting Hydrocodone-Acetami* Hives, GI Upset Meclizine Other: See Comments Morphine Other: See Comments Abdominal pain Nadolol Itching Penicillins Hives HOME MEDICATIONS: Current Outpatient Medications Medication Sig Dispense Refill furosemide (LASIX) 20 mg tablet Take 20 mg by mouth once daily. thiamine mononitrate (VITAMIN B-1, MONONITRATE,) 100 mg tab Take 1 tablet by mouth once daily. 90 tablet 1 cholecalciferol (VITAMIN D-3) 5,000 unit tab Take 1 tablet by mouth once daily. [address] (PROTONIX) 40 mg tablet Take 1 tablet by mouth once daily. 30 tablet 3 Lactobac no.41/Bifidobact no.7 (PROBIOTIC-10 ORAL) Take by mouth. amitriptyline (ELAVIL) 25 mg tablet TAKE 1 TABLET BY MOUTH EVERYDAY AT BEDTIME venlafaxine ER (EFFEXOR XR) 75 mg 24 hr capsule Take 75 mg by mouth twice daily. aspirin, enteric coated (ADULT LOW DOSE ASPIRIN) 81 mg EC tablet Take 1 tablet by mouth once daily. hydroCHLOROthiazide (HYDRODIURIL, ESIDRIX) 25 mg tablet Take 25 mg by mouth once daily. LORazepam (ATIVAN) 0.5 mg tab Take 1 mg by mouth as needed. Current Facility-Administered Medications Medication Dose Route Frequency Provider Last Rate Last Admin sodium chloride 0.9 % (flush) 10 mL (BD POSIFLUSH) 10 mL INTRAVENOUS DIRECTED PRN Johanny Marmolejo APRN.HOT WORKER LABS/IMAGING/DIAGNOSTIC STUDIES: CXR/CT: 12/19/20 CHEST X-RAY IMPRESSION: IMPRESSION: No acute radiographic abnormality. Lines, tubes, and devices: None. Lungs and pleura: No consolidation. No lung mass. No pleural effusion. No pneumothorax. Cardiomediastinal silhouette: Stable cardiac silhouette and mediastinal contour. Bones and soft tissues: Unremarkable. 08/04/21 Echo: LVEF~66% Left ventricular systolic function is normal. Definity contrast used for endocardial border detection. Normal left ventricular diastolic function. The right ventricle is normal in size. Right ventricular systolic function is normal. Exam was compared with the prior echocardiographic exam performed on 07/13/20. There is no significant change. CO2 (mmol/L) Date Value 12/21/2021 24 BUN (mg/dL) Date Value 12/21/2021 10 Creatinine (mg/dL) Date Value 12/21/2021 0.65 Calcium, Total (mg/dL) Date Value 12/21/2021 8.9 WBC (k/uL) Date Value 12/21/2021 8.05 Hemoglobin (g/dL) Date Value 12/21/2021 13.9 Platelet Count (k/uL) Date Value 12/21/2021 232 Protein, Total (g/dL) Date Value 12/21/2021 7.2 Albumin (g/dL) Date Value 12/21/2021 3.5 (L) ALT (U/L) Date Value 12/21/2021 116 (H) Bilirubin, Total (mg/dL) Date Value 12/21/2021 0.4 Alkaline Phosphatase (U/L) Date Value 12/21/2021 145 (H) Diagnostic tests reviewed for today's visit, films/results were personally reviewed by me. I personally reviewed the patient's past medical history, past surgical history, family history, social history, and medications as gathered by my staff. PHYSICAL EXAM: VITAL SIGNS: BP 138/88 Pulse 86 Temp (Src) 97 (Temporal) Resp 20 Ht 5' 6 (1.68m) Wt 415 lb (188.2kg) SpO2 97% LMP 07/11/2016 BMI 67.01 kg/(m^2). Neck is supple with no cervical lymphadenopathy or thyromegaly. RRR Clear to auscultation, but decreased breath sounds without wheezing bilaterally. Good bowel sounds, soft, nontender, nondistended, morbidly obese. No pedal edema bilaterally. Dry, intact skin with good turgor. Alert and oriented x 3. No grossly obvious neurological focal deficits. Appropriate mood and affect. Patient's exam is difficult secondary to the patient's large body habitus. IMPRESSION/PLAN: 1. Dyspnea and respiratory abnormalities - ICD9: 786.09, ICD10: R06.00, R06.89 (primary diagnosis) - ALPHA 1 ANTITRYPSIN PHENOTYPE - ALPHA 1 ANTITRYP PHEN/GENOTYPE - SPIROMETRY - BASELINE AND POST DILATOR - LUNG DIFFUSION CAPACITY (DLCO) - LUNG VOLUMES 2. Shortness of breath - ICD9: 786.05, ICD10: R06.02 - CT CHEST WO IVCON Return in about 3 months (around 04/05/2022). and as needed. All questions were answered and concerns addressed. Hung Emerson MD documented in this encounter[facility]05-[facility]22 Miscellaneous Notes* Telephone Encounter - Tiffanie Small MA - 12/27/2021 1:36 PM EDT Pt scheduled 02/14/[address] Charles Small MA * Telephone Encounter - Tiffanie Small MA - 12/27/2021 1:36 PM EDT ----- Message from Reynaldo Jasso sent at 12/27/2021 11:50 AM EDT ----- Regarding: Elevated liver enzymes / New Patient / Referral Patient has been identified by name and Date of (Y/N): Y Patient: Curly Cowart Date of : 1985 Provider for this encounter: JUNE Deshpande, PA Reason for the call/escalation: Per tool, elevate to office to schedule for elevated liver enzymes Was Patient Referred to [facility]/Seek Emergency Treatment (Y/N): N Did Patient Agree (Y/N): N/A Was An Attempt Made To Transfer The Patient To The Office (Y/N): N Were You Able To Reach Someone At The Office (Y/N): N/A If Yes - Patient Was Transferred To (Caregivers Name): N If No - Which [facility] Sales And Service Associate Did You Speak With Regarding This Patient: N/A Was an appointment scheduled (Y/N): N Reason patient was requesting visit (RFV/signs and symptoms/diagnosis) : Class 3 severe obesity dueto excess calories with serious comorbidity and body mass index (BMI) of 60.0 to 69.9 in adult (HCC) [E66.01, Z68.44] Elevated liver enzymes [R74.8] Hepatomegaly [R16.0] Person calling if other than patient: N/A Return call to if other than patient: N/A Best contact number: [phone] Thank you, eRynaldo Jasso December 27, 2021 11:51 AM documented in this encounterEast [facility]05-02-2022 History of Present illness Narrative* Amirah Flores RD - 12/27/2021 8:00 AM EDT Curly Cowart This patient encounter was completed virtually using a secure, HIPPA compliant video chat software program with the patient's consent. Pre-Op weight goal: 355 lb Education Class: Patient will receive instruction regarding healthy food choices and eating behaviors identified as optimal when preparing for surgery, losing weight after surgery, and maintaining weight loss long-term. Patient will also receive instruction regarding the Bariatric Full Liquid diet following surgery and optimal post-operative high-protein supplement choices. Education class to be completed prior to surgery. Behaviors Accomplished: Visit # 05/03 Date: 12/27/21 Weight: 419 lbs Weight goal met: No, weight increase of 29# since last RD visit, 64# above GW Behaviors that helped/hindered weight loss: hindered: not keeping a food journal, not tracking protein intake, no formal exercise 24 hr recall: B: skipped L: kazakh fries D: none S: none F: 64 oz Protein per recall: 0g Protein intake: not tracking consistently at this time Fluid intake: most days 64 oz Exercise: per pt report, has improved -- she recently moved in with a family member and walking up and down steps more frequently, trying to stay as active as she can -- not endorsing in formal exercise Caffeine: none Carbonation: none Alcohol: none Dining out: (before > 1 month) This past weekend she was traveling therefore most meals were FF/Dining out Sipping slowly/frequently: Yes Taking small bites/chewing 20-30x per bite: Yes food and fluid by 30 minutes: Yes Patient presents for a nutrition follow up per STEEL DIE ENGRAVER request due to weight regain (29# from 05/26/21). Previously cleared from nutrition on 05/26 (also last time patient met with RD). Will update clearance status today. Patient is tracking 3 days/week via physical food journal, was previously using [employer] joanna. She is able to calculate her total protein intake each day. Patient reports this past week she did nottrack last week at all and has not used her new journal yet. Per 24 hr recall, not meeting protein goals, still meeting fluid goals. Not fully adhereing to nutrition recommendations at this time (tracking/meeting protein goals). Not endorsing in formal exercise. Still taking flintstones complete MVand has already purchased Scour Prevention 18 for after surgery. Plan: follow up with RD around 01/18 The patient meets NIH guidelines for weight loss surgery and has been thoroughly evaluated and educated on good dietary practices. Patient is capable of following these guidelines pre-and post-surgically. From nutrition standpoint, the has partially met nutrition clearance and will need to demonstrate tracking/calcualting protein intake to 60-90g daily, increase exercise to 30 min 5x/week or 150 min/week, and track meals daily via physical food journal to receive nutrition clearance. Goals Eat 3 meals every day--protein source with each meal formal exercise 5-7x/week, as tolerated, goal of 30 minutes OR 150 min/week (walking outside, walking up and down steps at home) journal daily and bring to all appointments track/calculate protein intake daily, meeting 60-90g daily I spent 13 minutes in the visit, with more than 50% of the total fkdo-tu-vghg time of the visit in counseling / coordination of care. Amirah Flores RD documented in this encounter[facility]04-29-[facility]22 Miscellaneous Notes* Telephone Encounter - Talya Jackson RN - 12/24/2021 1:38 PM EDT Called patient and advised that she needs a follow-up appointment with Dr. Taylor. Message has beensent to [facility] personnel scheduler to try to find patient a sooner appointment. Talya Jackson RN December 24, 2021 1:40 PM * Telephone Encounter - Edith Taylor MD - 12/24/2021 1:14 PM EDT Deepak I haven't seen her since 08/2017 (so now > 4 years) These are issues that really require a clinic visit Can you please return the call, and let the patient know we will try to fit her in Thanks * Telephone Encounter - Analilia Ho - 12/24/2021 10:59 AM EDT Curly Cowart (Self) [phone] (H) Remove By Analilia Ho Patient called to discuss possible having a diagnosis of Hepatitis. She most recently had a ultrasound with enlarged liver, she would like new lab orders to be placed in [facility]. She would like a rt call to discuss She is aware she has not been seen since 2018 documented in this encounterEast [facility]04-29-2022 History of Present illness Narrative* Marjan Eddy, AIR EXPORT COORDINATOR.HOT WORKER - 12/24/2021 8:53 AM EDT BARIATRIC SURGERY CLINIC FOLLOW UP NOTE HPI: Curly Cowart a 36 year old female for presents for medically supervised weight loss treatment of her obesity related co morbidities. This individual presents for month 8 of 6 required visitscompleted as a virtual telephone encounter Curly Cowart weight calculation has increased by 5# since her last visit. She continues to keep a food journal and make healthy food choices. She is active by walking up/down stairs and walking around her property. She is frustrated at ongoing weight gain as she does maintain that she is partaking in healthy choices. She denies recent illness, hospitalizations, ED visits. Acid reflux symptoms are well controlled. She continues to struggle with dull RUQ discomfort and fatigue. She feels that she is inflammed andcould be retaining fluids. Reviewed results of RUQ US from PCPs office that shows new hepatomegaly- which was not noted on previous RUQ US in 2020. Her liver enzymes remain elevated. 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 Continues to have mild RYAN which is lingering from COVID 19 diagnosis. She completed 30 days holtermonitor and results were unremarkable- she has been cleared by cardiology. 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 currently 5 cigarettes/month Vaping Use Vaping Use: Never used Substance Use Topics Alcohol use: Not Currently Drug use: No Medications: Current Outpatient Medications Medication Sig thiamine mononitrate (VITAMIN B-1, MONONITRATE,) 100 mg tab Take 1 tablet by mouth once daily. cholecalciferol (VITAMIN D-3) 5,000 unit tab Take 1 tablet by mouth once daily. pantoprazole DR (PROTONIX) 40 mg tablet Take 1 tablet by mouth once daily. Lactobac no.41/Bifidobact no.7 (PROBIOTIC-10 ORAL) Take by mouth. amitriptyline (ELAVIL) 25 mg tablet TAKE 1 TABLET BY MOUTH EVERYDAY AT BEDTIME venlafaxine ER (EFFEXOR XR) 75 mg 24 hr capsule Take 75 mg by mouth twice daily. aspirin, enteric coated (ADULT LOW DOSE ASPIRIN) 81 mg EC tablet Take 1 tablet by mouth once daily. hydroCHLOROthiazide (HYDRODIURIL, ESIDRIX) 25 mg tablet Take 25 mg by mouth once daily. LORazepam (ATIVAN) 0.5 mg tab Take 1 mg by mouth as needed. Current Facility-Administered Medications Medication Dose Route Frequency sodium chloride 0.9 % (flush) 10 mL (BD POSIFLUSH) 10 mL INTRAVENOUS DIRECTED PRN REVIEW OF SYSTEMS Review of Systems Constitutional: Negative for chills and fever. Respiratory: Positive for shortness of breath. Negative for cough. Cardiovascular: Positive for leg swelling. Negative for palpitations. Gastrointestinal: Positive for abdominal pain. Negative for blood in stool, constipation, diarrhea,heartburn, melena and nausea. RUQ pain Musculoskeletal: Positive for joint pain. Skin: Negative for itching and rash. Neurological: Negative for dizziness. Psychiatric/Behavioral: Negative. PHYSICAL EXAMINATION BP 120/80 Pulse 97 Resp 18 Ht 167.6 cm (5' 6) Wt (!) 187.8 kg (414 lb) LMP 07/11/2016 SpO2 96% BMI 66.82 kg/m Physical Exam Constitutional: Appearance: Normal appearance. She is obese. HENT: Head: Normocephalic. Cardiovascular: Rate and Rhythm: Normal rate. Pulmonary: Effort: Pulmonary effort is normal. Musculoskeletal: General: Normal range of motion. Cervical back: Normal range of motion. Skin: General: Skin is warm and dry. Comments: Non-pitting edema noted in UE and LE. Neurological: General: No focal deficit present. Mental Status: She is alert and oriented to person, place, and time. Psychiatric: Mood and Affect: Mood normal. Behavior: Behavior normal. Diagnostic Tests Reviewed for Today's Visit Most recent lab and imaging results The plan of treatment for Curly Cowart is Further Work-up: Surgical procedure interested in: Sleeve gastrectomy EGD 03/18/21: antral and body gastritis with antral erosions. Pathology demonstrated: Stomach, antrum, biopsy Active gastritis with focal intestinal metaplasia and erosions. Immunohistochemical stain for Helicobacter pylori is negative for organisms. Gastroesophageal junction, biopsy Benign squamousmucosa showing no pathologic abnormalities. Repeat EGD 05/20/21: WNL, no evidence of IM Upper GI: defer to EGD GES: Accelerated rate of emptying RUQ US: NAFLD, hepatomegaly (23.2cm) s/p cholecystectomy Sleep Study: Mild BRISEYDA- does not need CPAP per sleep medicine (note in epic 08/18/20) CXR: per pulmonary clearance EKG: per cardiac clearance H Pylori negative Labs: complete, elevated liver enzymes Nicotine use <12 months: NA - quit over 12 months ago Antiplatelet/anticoagulants: Baby Aspirin - takes for hx of PE/DVT (OK to continue baby ASA prior to surgery per Dr. Rosas- Planned SG- will be on Lovenox x 4 weeks post op then can resume Baby ASA) Immunosuppressive therapy: No Estrogen therapy: No Evaluations Psychology: cleared Nutrition:cleared Education class: complete 05/19/21 Clearances: Cardiac (low ) and PCP (low), pulmonology (+added for COVID) Risk Calculator: VTE Risk: Will need at least 4 weeks of Lovenox based on history of PE & DVT COVID-19 Risk 3 Post-op Medications: Extended Lovenox: Will need at least 4 weeks of Lovenox based on history of PE & DVT - RX sent Actigall: Not needed H2 waldo/PPI: On PPI - refill sent Tylenol: will require - RX sent ASSESSMENT/PLAN: 1. Class 3 severe obesity due to excess calories with serious comorbidity and body mass index (BMI)of 60.0 to 69.9 in adult (HCC) - ICD9: 278.01, V85.44, ICD10: E66.01, Z68.44 (primary diagnosis) Weight increasing - Behavioral intervention and - Medical nutrition therapy with dietitian - Will have her scheduled with RD for updated visit as it has been quite a while since she was cleared and she has had some weight gain - CONSULT TO GASTROENTEROLOGY 2. Elevated liver enzymes - ICD9: 790.5, ICD10: R74.8 - Ongoing liver enzymes with new hepatomegaly. She does have known Alpha 1 antitrypsin trait. She has a GI at [facility] and plans to reach out to him for an updated visit to review imaging and liver enzymes as it has been years since she has seen him. - CONSULT TO GASTROENTEROLOGY 3. Hepatomegaly - ICD9: 789.1, ICD10: R16.0 - As above -Noted on RUQ US scanned in - CONSULT TO GASTROENTEROLOGY 4. V-tach (HCC) - ICD9: 427.1, ICD10: I47.2 - Holter monitor results unremarkable - Cleared by cardiology 5. COVID-19 charity padilla - ICD9: 139.8, ICD10: U09.9 - Ongoing RYAN since COVID 19 diagnosis - She had to cancel visit with pulmonology due to work conflict. She will reschedule with them today. -Requesting pulmonary clearance 6. Gastroesophageal reflux disease without esophagitis - ICD9: 530.81, ICD10: K21.9 - Discussed lifestyle modifications including losing weight, limiting caffeine, no meals three hours before sleep and head of bed elevation - Symptoms well managed on PPI I would appreciate opinion from gastroenterology regarding elevated liver enzymes, elevated ferritin and RUQ US findings. She still needs clearance from pulmonology and an updated visit with RD givenweight gain .Will have her see Dr. Rosas for an updated visit before surgery due to changes in medical history since she has consented. Follow up with STEEL DIE ENGRAVER next month to review these clearances. Marjan Eddy, AIR EXPORT COORDINATOR.HOT WORKER Total time in direct patient contact = 20 min. Greater than 50% of the time was spent in counselingand/or coordination of care. This note was generated using voice recognition technology and may contain grammatical errors. documented in this encounterEast [facility]04-15-2022 Miscellaneous Notes* Telephone Encounter - Lisa Storey - 12/10/2021 2:00 PM EDT Please review [facility] internal medicine records in scanned documents received today. Lisa Storey [facility] P: [phone] Ext [phone] documented in this encounterEast [facility] Hospital04-15-2022 Miscellaneous Notes* Telephone Encounter - Meagan Fitzgerald MA - 12/10/2021 1:05 PM EDT Please ask her to have labs done KADIE she may not need to continue this. Called patient, she is going to have her labs drawn on Monday * Telephone Encounter - Meagan Fitzgerald MA - 12/10/2021 11:38 AM EDT Patient confirmed new prescription is needed Patient called requesting the following refill. Pending Prescriptions Disp Refills THIAMINE MONONITRATE (VITAMIN B1) 100 MG TABLET 90 tablet 1 Sig: Take 1 tablet by mouth once daily. JAKE: No Refused Prescriptions Disp Refills sucralfate (CARAFATE) 1 gram tablet [Pharmacy Med Name: SUCRALFATE 1 GM TABLET] 60 tablet 1 Sig: TAKE 1 TABLET BY MOUTH TWICE A DAY JAKE: No Refused By: MEAGAN FITZGERALD Reason for Refusal: A Refill not appropriate Reason for Refusal Comment: not taking Patient last appointment: 07/01/2021 Next Appointment: Visit date not found Patient Phone numbers: [phone] (home) Request is for script(s) to be escript to pharmacy. Meagan Fitzgerald MA documented in this encounterEast [facility]04-07-2022 Miscellaneous Notes* Telephone Encounter - Art Caputo APRN.CNP - 12/02/2021 2:23 PM EDT Reviewed; US showed hepatomegaly (23.2cm) and fatty liver. Will route to surgeon. Art Caputo APRN.CNP * Telephone Encounter - Lisa Storey - 12/02/2021 1:27 PM EDT results received and scanned into chart for review. Lisa Storey [facility] P: [phone] Ext [phone] documented in this encounterEast [facility] Hospital04-06-2022 Miscellaneous Notes* Telephone Encounter - Leanne Bass - 12/01/2021 8:52 AM EDT Called 4x- phone rings busy- needs VV with JOANNA EST- ERIK/MYLENE/[facility]/6 Months * Telephone Encounter - Johanny Wilkins MA - 12/01/2021 7:57 AM EDT Patient called back in regarding her surgery and would like to schedule. Per Marjan's last note, she needs to be seen in 1 month with her to assess. Please contact the patient to schedule her appointment. Johanny Wilkins MA December 01, 2021 8:00 AM documented in this [facility]04-04-2022 Miscellaneous Notes* Telephone Encounter - Johanny Wilkins MA - 11/29/2021 11:09 AM EDT Contacted the patients PCP to obtain most recent labwork. I left a message in the clinical question mailbox to fax results over or call back with any questions. Johanny Wilkins MA November 29, 2021 11:10 AM documented in this encounterEast [facility] Hospital03-25-2022 Miscellaneous Notes* Telephone Encounter - Lisa Cordelia - 11/19/2021 11:20 AM EDT Updated cardiac clearance sent to Dr. Garay via [employer] and fax. Lisa Cordelia [facility] P: [phone] Ext [phone] documented in this encounterEast [facility] Hospital03-25-2022 History of Present illness Narrative* Marjan Eddy APRN.SWATI - 11/19/2021 8:41 AM EDT BARIATRIC SURGERY CLINIC FOLLOW UP NOTE DISTANCE HEALTH VISIT This Team Access Model visit is a virtual encounter. It required patient- provider interaction for the medical decision making as documented below. Consent was obtained to complete today's distance health visit. HPI: Curly Cowart a 36 year old female for presents for medically supervised weight loss treatment of her obesity related co morbidities. This individual presents for month 7 of 6 required visitscompleted as a virtual telephone encounter Curly Cowart weight calculation has increased by 10#since her last visit. Her weight is up 10# since her consent visit and 39# since beginning the program in November 2020. Curly's surgery was canceled back in July 2021 due to her mary COVID 19 and then continued to be delayed due to the hold on elective surgeries due to the COVID 19 surge. Since her last visit in June, she has had some changes to her medical history. She has been struggling with lingering symptoms of COVID 19- including fatigue and fairly significant dyspnea with exertion. She has had increase in palpitations, similar to her experience with Vtach. She recently wore a holter monitor per cardiology and is waiting for the results. Also, she had lab work completed with her PCP that showed significant increase in her liver enzymes. She has been experiencing RUQ pain, fluid retention, nausea. She is scheduled for a RUQ ultrasound next week. Of note, she has the alpha-1- antitrypsin deficiency. She has also been dealing with increased joint pain. She continues to keep a food journal and reach fluid and protein goals. She maintains that she is still focusing on healthy eating, limited fast food and all of the other nutrition recommendations. Activity/exercise has been limited due to activity tolerance and increased joint pain. Her acid reflux symptoms are unchanged, well managed with protonix. She denies dysphagia and regurgitation. 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 currently 5 cigarettes/month Vaping Use Vaping Use: Never used Substance Use Topics Alcohol use: Not Currently Drug use: No Medications: Current Outpatient Medications Medication Sig pantoprazole DR (PROTONIX) 40 mg tablet Take 1 tablet by mouth once daily. VITAMIN B-1 100 mg tablet TAKE 1 TABLET BY MOUTH EVERY DAY Lactobac no.41/Bifidobact no.7 (PROBIOTIC-10 ORAL) Take by mouth. amitriptyline (ELAVIL) 25 mg tablet TAKE 1 TABLET BY MOUTH EVERYDAY AT BEDTIME cholecalciferol (VITAMIN D-3) 5,000 unit tab Take 5,000 Units by mouth once daily. venlafaxine ER (EFFEXOR XR) 75 mg 24 hr capsule Take 75 mg by mouth twice daily. aspirin, enteric coated (ADULT LOW DOSE ASPIRIN) 81 mg EC tablet Take 1 tablet by mouth once daily. hydroCHLOROthiazide (HYDRODIURIL, ESIDRIX) 25 mg tablet Take 25 mg by mouth once daily. LORazepam (ATIVAN) 0.5 mg tab Take 1 mg by mouth as needed. Current Facility-Administered Medications Medication Dose Route Frequency sodium chloride 0.9 % (flush) 10 mL (BD POSIFLUSH) 10 mL INTRAVENOUS DIRECTED PRN REVIEW OF SYSTEMS Review of Systems Constitutional: Positive for malaise/fatigue. Negative for chills and fever. Generalized fluid retention- face, legs, arms Respiratory: Positive for cough and shortness of breath. Cardiovascular: Positive for palpitations and leg swelling. Gastrointestinal: Positive for abdominal pain and nausea. Negative for blood in stool, constipation, diarrhea, melena and vomiting. + RUQ pain Musculoskeletal: Positive for joint pain. Skin: Negative for itching and rash. Neurological: Negative for dizziness, sensory change, loss of consciousness and weakness. Psychiatric/Behavioral: The patient is nervous/anxious. PHYSICAL EXAMINATION - VV visit Wt 185.5 kg (409 lb) BMI 66.01 kg/m2 Ht 167.6 cm (5' 6) BMI 66.01 kg/m2 GENERAL APPEARANCE: Pleasant, interacts appropriately and in no apparent distress. Appropriately groomed, happy, smiling, and interactive SKIN: Skin of normal texture, temperature without rashes/lesions/ulcerations. LUNGS: unlabored on room air negative findings: normal respiratory rate no cough NEURO/PSYCH: Oriented to person, place, time; appropriate insight and judgement. Appropriate affect. Diagnostic Tests Reviewed for Today's Visit Most recent lab and imaging results The plan of treatment for Curly Cowart is Further Work-up: Surgical procedure interested in: Sleeve gastrectomy EGD 03/18/21: antral and body gastritis with antral erosions. Pathology demonstrated: Stomach, antrum, biopsy Active gastritis with focal intestinal metaplasia and erosions. Immunohistochemical stain for Helicobacter pylori is negative for organisms. Gastroesophageal junction, biopsy Benign squamousmucosa showing no pathologic abnormalities. Repeat EGD 05/20/21: WNL, no evidence of IM Upper GI: defer to EGD GES: Accelerated rate of emptying RUQ US: fatty infiltration of the liver Sleep Study: Mild BRISEYDA- does not need CPAP per sleep medicine (note in epic 08/18/20) CXR: per pulmonary clearance EKG: per cardiac clearance H Pylori negative Labs: complete - Needs updated Nicotine use <12 months: NA - quit over 12 months ago Antiplatelet/anticoagulants: Baby Aspirin - takes for hx of PE/DVT (OK to continue baby ASA prior to surgery per Dr. Rosas- Planned SG- will be on Lovenox x 4 weeks post op then can resume Baby ASA) Immunosuppressive therapy: No Estrogen therapy: No Evaluations Psychology: cleared Nutrition:cleared Education class: complete 05/19/21 Clearances: Cardiac (requesting updated) and PCP, pulmonology (+added for COVID) Risk Calculator: VTE Risk: Will need at least 4 weeks of Lovenox based on history of PE & DVT COVID-19 Risk 3 Post-op Medications: Extended Lovenox: Will need at least 4 weeks of Lovenox based on history of PE & DVT - RX sent Actigall: Not needed H2 waldo/PPI: On PPI - refill sent Tylenol: will require - RX sent ASSESSMENT/PLAN: 1. Class 3 severe obesity due to excess calories with serious comorbidity and body mass index (BMI)of 60.0 to 69.9 in adult (HCC) - ICD9: 278.01, V85.44, ICD10: E66.01, Z68.44 (primary diagnosis) Weight increasing - Behavioral intervention and - Medical nutrition therapy with dietitian - would like her to come into office next visit for an accurate weight check. She is aware that we would like to see her weight move in a downward trajectory prior to rescheduling surgery. - CONSULT TO PULMONARY MEDICINE - CBC - COMP METABOLIC PANEL - FERRITIN BLD - FOLATE SERUM - IRON + TIBC - PTH INTACT BLD - VITAMIN B12 BLOOD - VITAMIN D 25 HYDROXY - VITAMIN B1 (THIAMINE), WHOLE BLOOD 2. V-tach (HCC) - ICD9: 427.1, ICD10: I47.2 - Holter monitor results pending - Requesting updated cardiac clearance 3. COVID-19 charity padilla - ICD9: 139.8, ICD10: U09.9 - Diagnosed in July 2021- Ongoing symptoms of RYAN, fatigue - Requesting pulmonary eval and clearance prior to surgery - CONSULT TO PULMONARY MEDICINE 4. Elevated liver enzymes - ICD9: 790.5, ICD10: R74.8 - Per lab work with PCP - Requesting labs to be sent to our office and results of RUQ US once completed - Will need to determine what is causing jump in liver enzymes prior to rescheduling surgery - May consider MRCP 5. Rwstq-3-awiseppzznv deficiency (HCC) - ICD9: 273.4, ICD10: E88.01 6. Gastroesophageal reflux disease without esophagitis - ICD9: 530.81, ICD10: K21.9 - Discussed lifestyle modifications including losing weight, limiting caffeine, no meals three hours before sleep and head of bed elevation - Symptoms well managed with protonix- refill sent today Will need updated lab work as it has been almost 1 year since her bariatric labs. Will need updatedclearance from cardiology. Will need clearance from pulmonology and PCP, also will need to stabilize current abdominal/liver enzyme elevations prior to rescheduling surgery. Will have her come back in 4 weeks in office for a weight check- if she continues to show weight gain will add to MDT. Marjan Eddy APRN.HOT WORKER Total time in direct patient contact = 30 min. Greater than 50% of the time was spent in counselingand/or coordination of care. This note was generated using voice recognition technology and may contain grammatical errors. documented in this encounterEast [facility] Hospital03-25-2022 Miscellaneous Notes* Telephone Encounter - Katie Alvarez MA - 11/19/2021 8:33 AM EDT Patient called requesting the following refill. Pending Prescriptions Disp Refills CHOLECALCIFEROL (VITAMIN D3) 125 MCG (5,000 UNIT) TABLET 30 tablet 0 Sig: Take 1 tablet by mouth once daily. JAKE: No PANTOPRAZOLE 40 MG TABLET,DELAYED RELEASE 30 tablet 3 Sig: Take 1 tablet by mouth once daily. JAKE: No Patient last appointment: 07/01/2021 Next Appointment: Visit date not found Patient Phone numbers: [phone] (home) Request is for script(s) to be escript to pharmacy. Katie Alvarez MA [facility] Chief complaint Narrative - Reported* An interactive audio and video telecommunication system which permits real time communications between the patient (at the originating site) and provider (at the distant site) was utilized to providethis telehealth service. * Verbal consent was requested and obtained from CURLY COWART on this date, 08/19/2021 10:20 AM , for a telehealth visit. * 1 WK FU COVID POSITIVE PT FEELING MUCH BETTER MEDS PRESCRIBED MADE HER SICK SO SHE DIDN'T FINISH THEM STILL VERY FATIGUE [facility] Internal Medicine Work Phone: 1(810) 392-411112-11-2021 History of Present illness Narrative* VARGAS MUJICA, [facility] PATIENT THAT * VIRTUAL APPOINTMENT BEING PERFORMED DUE TO COVID-19 (CORONAVIRUS) * Presents today for 1 WEEK F/U COVID. C/O SLIGHT NASAL CONGESTION AND FATIGUE REMAINS modifying factors consists of POSITIVE COVID ON 08/07/21 associated symptoms consist of SMELL AND TASTE IS OFF. NOSOB OR CP prior treatment consists of medication STOPPED MEDS [facility] Internal Medicine Work Phone: 1(161) 483-542712-01-2021 History of Present illness [id number] YOF presents with concerns of pain above right breast since having COVID-19 in July 2021. She is concerned about increased generalized edema since COVID-19 infection. Also reports increased SOB since COVID-19. Reports having a moderately severe COVID-19 infection.[facility] Work Phone: 1(947) 983-272604-24-2021 History of Present illness Narrative* Alondra Lu (Rt), Mary - 12/19/2020 10:30 AM EDT Radiology Service Progress Note PATIENT NAME: Curly Cowart DATE OF SERVICE: December 19, 2020 TIME: 10:41 AM PATIENT IDENTITY VERIFICATION COMPLETED USING TWO (2) IDENTIFIERS: Name and Date of confirmedby patient verbally. FALL SCREENING: Has the patient had 2 falls in the last year or 1 fall with injury or currently using an Ambulatory Assistive Device (Walker, Cane, Wheelchair, Crutches, etc.)? No PATIENT GENDER DATA: Female. status: : No status: NO. PATIENT RELEVANT IMPLANT DATA REVIEWED: Not Applicable RADIOLOGY DEPARTMENT: General X-ray: Exam(s) Completed: Chest X-Ray PERIPHERAL IV DATA: Not applicable SIGNED BY: RT Silvano December 19, 2020 10:41 AM documented [place] [id number] History of Past illness Narrative* Problem Noted Date Resolved Date Nonspecific abnormal results of liver function s dy 03/03/2008 04/09/2015 documented as of this encounter (statuses as of 11/19/2021) [address]07-[address] History of Past illness Narrative* Problem Noted Date Resolved Date Nonspecific abnormal results of liver function s dy 03/03/2008 04/09/2015 documented as of this encounter (statuses as of 11/19/2021) [address]07-2008 History of Past illness Narrative* Problem Noted Date Resolved Date Nonspecific abnormal results of liver function s dy 03/03/2008 04/09/2015 documented as of this encounter (statuses as of 11/19/2021) [address]07-2008 History of Past illness Narrative* Problem Noted Date Resolved Date Nonspecific abnormal results of liver function s dy 03/03/2008 04/09/2015 documented as of this encounter (statuses as of 11/29/2021) [address]07-2008 History of Past illness Narrative* Problem Noted Date Resolved Date Nonspecific abnormal results of liver function s dy 03/03/2008 04/09/2015 documented as of this encounter (statuses as of 11/30/2021) [address]-2008 History of Past illness Narrative* Problem Noted Date Resolved Date Nonspecific abnormal results of liver function s dy 03/03/2008 04/09/2015 documented as of this encounter (statuses as of 12/01/2021) [address]-2008 History of Past illness Narrative* Problem Noted Date Resolved Date Nonspecific abnormal results of liver function s dy 03/03/2008 04/09/2015 documented as of this encounter (statuses as of 12/02/2021) [facility] of [facility] illness Narrative* Problem Noted Date Resolved Date Nonspecific abnormal results of liver function s dy 03/03/2008 04/09/2015 documented as of this encounter (statuses as of 12/02/2021) [place] [address]07-2008 History of Past illness Narrative* Problem Noted Date Resolved Date Nonspecific abnormal results of liver function s dy 03/03/2008 04/09/2015 documented as of this encounter (statuses as of 12/10/2021) [facility] of [facility] illness Narrative* Problem Noted Date Resolved Date Nonspecific abnormal results of liver function s dy 03/03/2008 04/09/2015 documented as of this encounter (statuses as of 12/10/2021) [facility] of Past illness Narrative* Problem Noted Date Resolved Date Nonspecific abnormal results of liver function s dy 03/03/2008 04/09/2015 documented as of this encounter (statuses as of 12/24/2021) [facility] of [facility] illness Narrative* Problem Noted Date Resolved Date Nonspecific abnormal results of liver function s dy 03/03/2008 04/09/2015 documented as of this encounter (statuses as of 12/24/2021) [facility] of Past illness Narrative* Problem Noted Date Resolved Date Nonspecific abnormal results of liver function s dy 03/03/2008 04/09/2015 documented as of this encounter (statuses as of 12/27/2021) [facility] of [facility] illness Narrative* Problem Noted Date Resolved Date Nonspecific abnormal results of liver function s dy 03/03/2008 04/09/2015 documented as of this encounter (statuses as of 12/27/2021) [facility] of [facility] illness Narrative* Problem Noted Date Resolved Date Nonspecific abnormal results of liver function s dy 03/03/2008 04/09/2015 documented as of this encounter (statuses as of 01/03/2022) [facility] illness Narrative* Problem Noted Date Resolved Date Nonspecific abnormal results of liver function s dy 03/03/2008 04/09/2015 documented as of this encounter (statuses as of 01/13/2022) [facility] illness Narrative* Problem Noted Date Resolved Date Nonspecific abnormal results of liver function s dy 03/03/2008 04/09/2015 documented as of this encounter (statuses as of 01/14/2022) [facility] Narrative* Problem Noted Date Resolved Date Nonspecific abnormal results of liver function s dy 03/03/2008 04/09/2015 documented as of this encounter (statuses as of 01/18/2022) [address] History of Past illness Narrative* Problem Noted Date Resolved Date Nonspecific abnormal results of liver function s dy 03/03/2008 04/09/2015 documented as of this encounter (statuses as of 02/02/2022) [facility] Narrative* Problem Noted Date Resolved Date Nonspecific abnormal results of liver function s dy 03/03/2008 04/09/2015 documented as of this encounter (statuses as of 02/02/2022) [facility] Narrative* Problem Noted Date Resolved Date Nonspecific abnormal results of liver function s dy 03/03/2008 04/09/2015 documented as of this encounter (statuses as of 02/03/2022) [facility] Narrative* Problem Noted Date Resolved Date Nonspecific abnormal results of liver function s dy 03/03/2008 04/09/2015 documented as of this encounter (statuses as of 02/08/2022) [facility] Narrative* Problem Noted Date Resolved Date Nonspecific abnormal results of liver function s dy 03/03/2008 04/09/2015 documented as of this encounter (statuses as of 02/09/2022) [facility] Narrative* Problem Noted Date Resolved Date Nonspecific abnormal results of liver function s dy 03/03/2008 04/09/2015 documented as of this encounter (statuses as of 02/10/2022) [facility] Narrative* Problem Noted Date Resolved Date Nonspecific abnormal results of liver function s dy 03/03/2008 04/09/2015 documented as of this encounter (statuses as of 02/14/2022) [facility] illness Narrative* Problem Noted Date Resolved Date Nonspecific abnormal results of liver function s dy 03/03/2008 04/09/2015 documented as of this encounter (statuses as of 02/15/2022) [facility] illness Narrative* Problem Noted Date Resolved Date Nonspecific abnormal results of liver function s dy 03/03/2008 04/09/2015 documented as of this encounter (statuses as of 02/15/2022) [place] [address]07-2008 History of Past illness Narrative* Problem Noted Date Resolved Date Nonspecific abnormal results of liver function s dy 03/03/2008 04/09/2015 documented as of this encounter (statuses as of 03/01/2022) [facility] Narrative* Problem Noted Date Resolved Date Nonspecific abnormal results of liver function s dy 03/03/2008 04/09/2015 documented as of this encounter (statuses as of 03/02/2022) [facility] Narrative* Problem Noted Date Resolved Date Nonspecific abnormal results of liver function s dy 03/03/2008 04/09/2015 documented as of this encounter (statuses as of 03/15/2022) [facility] Narrative* Problem Noted Date Resolved Date Nonspecific abnormal results of liver function s dy 03/03/2008 04/09/2015 documented as of this encounter (statuses as of 03/16/2022) [facility] Narrative* Problem Noted Date Resolved Date Nonspecific abnormal results of liver function s dy 03/03/2008 04/09/2015 documented as of this encounter (statuses as of 03/24/2022) [facility] Narrative* Problem Noted Date Resolved Date Nonspecific abnormal results of liver function s dy 03/03/2008 04/09/2015 documented as of this encounter (statuses as of 03/31/2022) [facility] Narrative* Problem Noted Date Resolved Date Nonspecific abnormal results of liver function s dy 03/03/2008 04/09/2015 documented as of this encounter (statuses as of 03/31/2022) [facility] Narrative* Problem Noted Date Resolved Date Nonspecific abnormal results of liver function s dy 03/03/2008 04/09/2015 documented as of this encounter (statuses as of 03/31/2022) [facility] Narrative* Problem Noted Date Resolved Date Nonspecific abnormal results of liver function s dy 03/03/2008 04/09/2015 documented as of this encounter (statuses as of 04/04/2022) [facility] Narrative* Problem Noted Date Resolved Date Nonspecific abnormal results of liver function s tudy 03/03/2008 04/09/2015 documented as of this encounter (statuses as of 04/05/2022) [facility] Narrative* Problem Noted Date Resolved Date Nonspecific abnormal results of liver function s dy 03/03/2008 04/09/2015 documented as of this encounter (statuses as of 04/12/2022) [facility] Narrative* Problem Noted Date Resolved Date Nonspecific abnormal results of liver function s tudy 03/03/2008 04/09/2015 documented as of this encounter (statuses as of 04/14/2022) [facility] Narrative* Problem Noted Date Resolved Date Nonspecific abnormal results of liver function s dy 03/03/2008 04/09/2015 documented as of this encounter (statuses as of 04/18/2022) [facility] Narrative* Problem Noted Date Resolved Date Nonspecific abnormal results of liver function s dy 03/03/2008 04/09/2015 documented as of this encounter (statuses as of 04/19/2022) [facility] Narrative* Problem Noted Date Resolved Date Nonspecific abnormal results of liver function s dy 03/03/2008 04/09/2015 documented as of this encounter (statuses as of 04/20/2022) [facility] Narrative* Problem Noted Date Resolved Date Nonspecific abnormal results of liver function s dy 03/03/2008 04/09/2015 documented as of this encounter (statuses as of 04/20/2022) [facility] Narrative* Problem Noted Date Resolved Date Nonspecific abnormal results of liver function s dy 03/03/2008 04/09/2015 documented as of this encounter (statuses as of 04/20/2022) [facility] Narrative* Problem Noted Date Resolved Date Nonspecific abnormal results of liver function s dy 03/03/2008 04/09/2015 documented as of this encounter (statuses as of 04/21/2022) [facility] Narrative* Problem Noted Date Resolved Date Nonspecific abnormal results of liver function s dy 03/03/2008 04/09/2015 documented as of this encounter (statuses as of 04/27/2022) [facility] Narrative* Problem Noted Date Resolved Date Nonspecific abnormal results of liver function s dy 03/03/2008 04/09/2015 documented as of this encounter (statuses as of 06/02/2022) [facility] Narrative* Problem Noted Date Resolved Date Nonspecific abnormal results of liver function s tudy 03/03/2008 04/09/2015 documented as of this encounter (statuses as of 06/02/2022) [facility] Narrative* Problem Noted Date Resolved Date Nonspecific abnormal results of liver function s dy 03/03/2008 04/09/2015 documented as of this encounter (statuses as of 06/03/2022) [facility] Narrative* Problem Noted Date Resolved Date Nonspecific abnormal results of liver function s dy 03/03/2008 04/09/2015 documented as of this encounter (statuses as of 2022) [facility] Narrative* Problem Noted Date Resolved Date Nonspecific abnormal results of liver function s dy 03/03/2008 04/09/2015 documented as of this encounter (statuses as of 07/12/2022) [facility] Narrative* Problem Noted Date Resolved Date Nonspecific abnormal results of liver function s dy 03/03/2008 04/09/2015 documented as of this encounter (statuses as of 07/12/2022) [facility] Narrative* Problem Noted Date Resolved Date Nonspecific abnormal results of liver function s dy 03/03/2008 04/09/2015 documented as of this encounter (statuses as of 07/12/2022) [facility] Narrative* Problem Noted Date Resolved Date Nonspecific abnormal results of liver function s dy 03/03/2008 04/09/2015 documented as of this encounter (statuses as of 08/15/2022) [facility] Narrative* Problem Noted Date Resolved Date Nonspecific abnormal results of liver function s dy 03/03/2008 04/09/2015 documented as of this encounter (statuses as of 09/22/2022) [address] History of Past illness Narrative* Problem Noted Date Resolved Date Nonspecific abnormal results of liver function s dy 03/03/2008 04/09/2015 documented as of this encounter (statuses as of 10/10/2022) [facility] Narrative* Problem Noted Date Resolved Date Nonspecific abnormal results of liver function s dy 03/03/2008 04/09/2015 documented as of this encounter (statuses as of 10/11/2022) [facility] Narrative* Problem Noted Date Resolved Date Nonspecific abnormal results of liver function s dy 03/03/2008 04/09/2015 documented as of this encounter (statuses as of 11/08/2022) [facility] Narrative* Problem Noted Date Resolved Date Nonspecific abnormal results of liver function s dy 03/03/2008 04/09/2015 documented as of this encounter (statuses as of 01/01/2023) [facility] Narrative* Problem Noted Date Resolved Date Nonspecific abnormal results of liver function s dy 03/03/2008 04/09/2015 documented as of this encounter (statuses as of 01/09/2023) [facility] Narrative* Problem Noted Date Resolved Date Nonspecific abnormal results of liver function s dy 03/03/2008 04/09/2015 documented as of this encounter (statuses as of 01/09/2023) [facility] Narrative* Problem Noted Date Resolved Date Nonspecific abnormal results of liver function s dy 03/03/2008 04/09/2015 documented as of this encounter (statuses as of 02/27/2023) [facility] of [facility] Narrative* Problem Noted Date Diagnosed Date Resolved Date Nonspecific abnormal results of liver function study 03/03/2008 04/09/2015 documented as of this encounter (statuses as of 10/27/2023) [facility] - Reported* An interactive audio and video telecommunication system which permits real time communications between the patient (at the originating site) and provider (at the distant site) was utilized to providethis telehealth service. * Pt vv due to illness since Monday. States she has been having a head cold, cough, and chest pressure. Patient took a covid test on Monday which resulted negative. 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 -[facility] Internal Medicine Work Phone: discharge summary Author Dr. Sutton [facility] November 15, 2022 1:42pm Note Date/Time November 15, 2022 12: 03pm [facility] Medical Records Department [address] [place] [address] Emergency Department Summary 11/15/22 MR#: [id number] Acct: [id number] Name: CURLY COWART Rep #:[id number] : [id number] 37 From: Aftab Sutton MD PCP: JUNE Jeronimo Status:REG ER Location: ED HPI History of Present Illness Chief Complaint: Chest Pain Narrative Narrative: Presents with chest pain that has been constant since yesterday and is nonpleuritic. She has not traveled anywhere, she has no lower extremity edema or calf pain. No cough or congestion. She has no back pain or tearing sensation. Pain is sharp and stabbing. She has been moving recently unpacking and lifting. [facility] Medical History [id number] deficiency Ankylosing spondylitis Anxiety Arthritis Back problem blood clot GERD (gastroesophageal reflux disease) High serum fibrinogen History of pulmonary embolism Hypergammaglobulinemia, unspecified Hypothyroidism 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 IBS (irritable bowel syndrome) Iron deficiency Iron deficiency anemia Liver disease Morbid obesity Obesity BRISEYDA on CPAP Paroxysmal ventricular tachycardia PTSD (post-traumatic stress disorder) Seasonal allergies Vitamin D deficiency Vitamin deficiency Home Medications levothyroxine 100 mcg tablet 100 mcg PO MOTUWETHFRSA THYROID 11/10/17 [History Last Taken 09/17/18] omeprazole 20 mg capsule,delayed release 20 mg PO DAILY ACID REFLUX 09/17/18 [History Last Taken 09/16/18] hydrochlorothiazide 25 mg tablet 25 mg PO DAILY 12/14/18 [History Last Taken Unknown] aspirin 81 mg chewable tablet 81 mg PO DAILY@0800 06/28/19 [History Last Taken Unknown] lorazepam 1 mg tablet 1 mg PO TID PRN PRN Anxiety 04/24/20 [History Last Taken Unknown] polysaccharide iron complex 150 mg iron capsule 150 mg PO DAILYCM #90 caps 04/28/20 [Rx Last Taken Unknown] venlafaxine 75 mg capsule,extended release 24 hr 75 mg PO BID 04/28/20 [History Last Taken Unknown] cholecalciferol (vitamin D3) 125 mcg (5,000 unit) capsule 125 mcg PO DAILY 11/26/20 [History Last Taken Unknown] Allergy/AdvReac Type Severity Reaction Status Date / Time cholecalciferol (vitamin D3) Allergy Hives Verified 11/15/22 11:52 [From Vitamin D3] ergocalciferol (vitamin D2) Allergy Hives Verified 11/15/22 11:52 [From Vitamin D2] nadolol Allergy Hives Verified 11/15/22 11:52 Penicillins Allergy Hives Verified 11/15/22 11:52 bupropion [From Wellbutrin] AdvReac Unknown Verified 11/15/22 11:52 hydrocodone bitartrate AdvReac Other Verified 11/15/22 11:52 [From Vicodin] morphine AdvReac Nausea Verified 11/15/22 11:52 Family History Father Family history of acute myocardial infarction Grandfather Heart problem paternal Grandmother Heart problem paternal Family history of diabetes mellitus paternal Uncle Family history of diabetes mellitus paternal Mother Family history of hypercholesterolemia Family history of hypertension Unknown Family history of thyroid disease Other Anxiety Arthritis Autoimmune disease Depression Heart disease Kidney disease Liver disease Myocardial infarction Surgical History History of History of cholecystectomy History of left heart catheterization (09/18/18) History of liver biopsy History of radiofrequency ablation procedure for cardiac arrhythmia (09/25/18) History of tonsillectomy History of tubal ligation Social History Smoking Status: Former smoker ROS ROS ED ROS Narrative Past medical history: Reviewed Medications: Reviewed Social history: Noncontributory Review of systems: All systems negative except as indicated General: No fever Eyes: No visual changes ENT: No upper airway congestion, normal voice Neck: No neck pain Cardiovascular: Chest pain as in HPI Respiratory: No shortness of breath or cough Gastrointestinal: No abdominal pain, nausea vomiting or diarrhea Genitourinary: No dysuria Musculoskeletal: Denies myalgias no difficulty with ambulation Skin: No rash Neurological: No memory loss, confusion or any focal weakness EXAM Physical Exam Narrative Exam Narrative: Physical exam General: Well nourished, Well developed, No Acute Distress Head: Normocephalic, Atraumatic Eyes: Conjunctiva not pale ENT: Moist mucous membranes Neck: Supple, Nontender, No lymphadenopathy Cardiovascular: Regular rate, Regular rhythm no murmur. Chest wall: Reproducible left parasternal chest wall pain no obvious rash Respiratory: No distress, CTA bilaterally Abdomen: Soft, Nontender, Nondistended Back: Nontender, Normal Inspection. Negative for: CVA tenderness Extremities: Nontender, No edema Skin: Normal color, No rash Const Vital Signs: 11/15/22 11:50 Temperature 97.3 F L Temperature Source Temporal Pulse Rate 80 Respiratory Rate 18 Blood Pressure 135/99 H Blood Pressure Mean 111 Pulse Ox 100 Oxygen Delivery Method Room Air MDM MDM MDM Narrative Medical decision making narrative: A. Problems addressed Patient has chest pain, she likely has chest wall pain or costochondritis, her work-up is negative, I do not believe this is cardiac in etiology, I will address it with NSAIDs otherwise I will discharge in stable condition she is moving in could have strained something in the chest wall. She has no signs or symptoms of PE. She appears well and I will discharge in stable condition B. Amount and/or complexity of the data 1. CBC CMP and troponin were normal, there were interpreted by me I discussed the patient with mother who was in the room 2. Independent interpretation of test Telemetry: Sinus rhythm with a rate in the 80s without ectopy C. Patient was seen by me in the emergency department. I have considered the following differential diagnoses however I was able to exclude all of these through a thorough history and physical exam as well as laboratory testing: PE or any thromboembolic etiologies, myocardial infarction, aortic dissection, esophageal rupture, pneumothorax, musculoskeletal emergencies, upper abdominal pathologies such as pancreatitis, cholecystitis or choledocholithiasis, as well as ruptured bowel. Without about admission however more likely she has chest wall pain and I believe she can be safely discharged home. Lab Data Labs: Laboratory Results - last 24 hr 11/15/22 11/15/22 12:10 12:10 WBC 8.1 RBC 5.22 Hgb 14.5 Hct 45.9 MCV 87.9 MCH 27.8 MCHC 31.6 L RDW Std Deviation 44.6 H RDW Coeff of Jocelyne 13.8 Plt Count 189 MPV 12.1 H Immature Gran % (Auto) 0.200 Neut % (Auto) 66.2 Lymph % (Auto) 24.8 [place]ra % (Auto) 7.0 Eos % (Auto) 1.7 Baso % (Auto) 0.1 Absolute Neuts (auto) 5.4 Absolute Lymphs (auto) 2.02 Nucleated RBC % 0 Sodium 141 Potassium 3.7 Chloride 108 H Carbon Dioxide 30.0 Anion Gap 3 L BUN 11 Creatinine 0.75 Estim Creat Clear Calc 94.28 Est GFR (MDRD) Af Amer 111 Est GFR (MDRD) Non-Af 92 BUN/Creatinine Ratio 14.7 Glucose 103 Calcium 9.3 Total Bilirubin 0.40 AST 57 H ALT 76 H Alkaline Phosphatase 127 H Troponin I High Sens 5 Total Protein 7.8 Albumin 3.3 Globulin 4.5 H Albumin/Globulin Ratio 0.7 L Radiography Diagnostic Testing: Clinical Impression(s) from Imaging Studies Chest X-Ray 11/15/22 12:18 IMPRESSION: Normal x-ray examination of the chest. Electronically Signed: Gray Reyes MD at 12:37 EDT , For interpreted by me as normal Discharge Plan Triage Chief Complaint: Chest Pain ED Provider: Aftab Sutton Dx/Rx/DC Orders Clinical Impression: Chest pain, Chest wall pain Instructions: ED Chest Pain, Uncertain Cause Prescriptions: No Action cholecalciferol (vitamin D3) 125 mcg (5,000 unit) capsule 125 mcg PO DAILY levothyroxine 100 MCG tablet 100 mcg PO MOTUWETHFRSA Rx Instructions: does not take Sundays omeprazole 20 MG capsule 20 mg PO DAILY hydrochlorothiazide 25 MG tablet 25 mg PO DAILY Label Comments: TAKE 1 TABLET BY MOUTH EVERY DAY NEEDED aspirin 81 MG tablet,chewable 81 mg PO DAILY@0800 lorazepam 1 MG tablet 1 mg PO TID PRN PRN (Reason: Anxiety) venlafaxine 75 MG capsule,extended release 24hr 75 mg PO BID polysaccharide iron complex 150 MG capsule 150 mg PO DAILYCM Qty: 90 3RF Primary Care Provider: Vargas Mujica Referrals: Vargas Mujica, JUNE [Primary Care Provider] - 3-5 Days Disposition Disposition: Home, Self Care What to do if you have Problems For any increased pain, shortness of breath, bleeding, nausea or vomiting, chestpain, or any unexpected problems, contact your Primary Care Provider. Call [facility] ([phone]) or report to the closest Emergency Room. Call 911 if necessary. 11/15/22 1342 <Electronically signed by Aftab Sutton MD> Cosigner Signature (if applicable): CC: JUNE Mujica ~ Signed [facility] Work Phone: Evaluation + Plan note No data available for this section [facility] Evaluation note* Diagnosis Class 3 severe obesity due to excess calories with serious comorbidity and body mass index (BMI) of 60.0 to 69.9 in adult (HCC) [facility] Class 3 severe obesity due to excess calories with serious comorbidity and body mass index (BMI) of 60.0 to 69.9 in adult (HCC)- Primary V-tach (HCC) Paroxysmal ventricular tachycardia COVID-19 long hauler Elevated liver enzymes Other nonspecific abnormal serum enzyme levels Sfxwe-2-iozyjkcyihn deficiency (HCC) Stvyt-2-uzfytkaxcth deficiency Gastroesophageal reflux disease without esophagitis Esophageal reflux [facility] Diagnosis Thiamine deficiency Other and unspecified manifestations of thiamine deficiency [facility] Diagnosis Thiamine deficiency Other and unspecified manifestations of thiamine deficiency [facility] Diagnosis Class 3 severe obesity due to excess calories with serious comorbidity and body mass index (BMI) of 60.0 to 69.9 in adult (HCC)- Primary Elevated liver enzymes Other nonspecific abnormal serum enzyme levels Hepatomegaly V-tach (HCC) Paroxysmal ventricular tachycardia COVID-19 long hauler Gastroesophageal reflux disease without esophagitis Esophageal reflux [facility] Class 3 severe obesity due to excess calories with serious comorbidity and body mass index (BMI) of 60.0 to 69.9 in adult (HCC)- [facility] Diagnosis Dyspnea and respiratory abnormalities- Primary Other dyspnea and respiratory abnormality Shortness of breath [facility] Diagnosis Fatty liver- Primary Other chronic nonalcoholic liver disease Increased liver enzymes Other nonspecific abnormal serum enzyme levels Morbid obesity (HCC) Morbid obesity [facility] Diagnosis Class 3 severe obesity due to excess calories with serious comorbidity and body mass index (BMI) of 60.0 to 69.9 in adult (HCC)- Primary Elevated liver enzymes Other nonspecific abnormal serum enzyme levels COVID-19 [facility] Hepatomegaly [facility] Diagnosis Dyspnea and respiratory abnormalities Other dyspnea and respiratory abnormality [facility] Diagnosis Dyspnea and respiratory abnormalities Other dyspnea and respiratory abnormality [facility] Diagnosis Fatty liver Other chronic nonalcoholic liver disease Increased liver enzymes Other nonspecific abnormal serum enzyme levels [facility] Diagnosis TORRES (nonalcoholic steatohepatitis)- Primary Other chronic nonalcoholic liver disease Increased liver enzymes Other nonspecific abnormal serum enzyme levels [facility] Diagnosis Class 3 severe obesity due to excess calories with serious comorbidity and body mass index (BMI) of 60.0 to 69.9 in adult (HCC)- Primary Elevated liver enzymes Other nonspecific abnormal serum enzyme levels COVID-19 long randy BRISEYDA (obstructive sleep apnea) Obstructive sleep apnea (adult) (pediatric) [facility] Diagnosis Dietary counseling and surveillance Dietary surveillance and counseling [facility] Diagnosis Morbid obesity (HCC)- Primary Morbid obesity [facility] Diagnosis Class 3 severe obesity due to excess calories with serious comorbidity and body mass index (BMI) of 60.0 to 69.9 in adult (HCC)- Primary Morbid obesity (HCC) Morbid obesity [facility] Diagnosis Class 3 severe obesity due to excess calories with serious comorbidity and body mass index (BMI) of 60.0 to 69.9 in adult (HCC)- Primary History of DVT (deep vein thrombosis) Personal history of venous thrombosis and embolism AAT (xmpif-9-fselhigfccg) deficiency (HCC) Sclze-9-hsudvkxauoj deficiency BRISEYDA (obstructive sleep apnea) Obstructive sleep apnea (adult) (pediatric) NAFLD (nonalcoholic fatty liver disease) Other chronic nonalcoholic liver disease Heartburn Morbid obesity (HCC) Morbid obesity [facility] Diagnosis Class 3 severe obesity due to excess calories with serious comorbidity and body mass index (BMI) of 60.0 to 69.9 in adult (HCC)- Primary History of DVT (deep vein thrombosis) Personal history of venous thrombosis and embolism Elevated liver enzymes Other nonspecific abnormal serum enzyme levels Morbid obesity (HCC) Morbid obesity [facility] Diagnosis Thrombocytopenia (HCC)- Primary Thrombocytopenia, unspecified Morbid obesity (HCC) Morbid obesity [facility] Diagnosis S/P laparoscopic sleeve gastrectomy- Primary Bariatric surgery status Right sided abdominal pain Abdominal pain, unspecified site Hepatic fibrosis Cirrhosis 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 mention of alcohol History of DVT (deep vein thrombosis) Personal history of venous thrombosis and embolism S/P laparoscopic sleeve gastrectomy Bariatric surgery status Right sided abdominal pain Abdominal pain, unspecified site [facility] Diagnosis S/P laparoscopic sleeve gastrectomy Bariatric surgery status Right sided abdominal pain Abdominal pain, unspecified site [facility] Diagnosis Dietary counseling and surveillance [Z71.3 (ICD-10-CM)]- Primary Dietary surveillance and counseling [facility]* Diagnosis Class 3 severe obesity due to excess calories with serious comorbidity and body mass index (BMI) of 60.0 to 69.9 in adult (HCC) [facility] Diagnosis S/P laparoscopic sleeve gastrectomy- Primary Bariatric surgery status [facility] Diagnosis Dietary counseling and surveillance [Z71.3 (ICD-10-CM)]- Primary Dietary surveillance and counseling [facility]* Diagnosis Hepatic fibrosis- Primary Cirrhosis 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 mention of alcohol [facility] Diagnosis S/P laparoscopic sleeve gastrectomy- Primary Bariatric surgery status Elevated liver enzymes Other nonspecific abnormal serum enzyme levels [facility] Diagnosis Dietary counseling and surveillance [Z71.3 (ICD-10-CM)]- Primary Dietary surveillance and counseling documented in [facility] encounter [facility] noteNo assessment information availableWElyria [facility] Work Phone: Evaluation note* Diagnosis Acute cough- Primary URI, acute Acute upper respiratory infections of unspecified site Rhinosinusitis Unspecified sinusitis (chronic) [facility]* Diagnosis S/P laparoscopic sleeve gastrectomy- Primary Bariatric surgery status [facility]* Diagnosis Increased PTH level- Primary Unspecified endocrine disorder [facility]* Diagnosis Foot pain, right- Primary Pain in limb [facility]* Diagnosis Dizziness- Primary Dizziness and giddiness Bilateral impacted cerumen Impacted cerumen documented in this encounter [facility]* Diagnosis Dizzy- Primary Dizziness and giddiness [facility]* Diagnosis Generalized anxiety disorder- Primary Anxiety Anxiety state, unspecified Fatty liver disease, nonalcoholic Glucose intolerance (impaired glucose tolerance) Impaired glucose tolerance test Shahzad's disease Chronic lymphocytic thyroiditis Vitamin D deficiency Polyarthralgia Pain in joint, multiple sites Medication management Urinary incontinence, unspecified type Insomnia secondary to depression with anxiety Palpitations Ankylosing spondylitis, unspecified site of spine (CMS/[facility]) Class 3 severe obesity due to excess calories with serious comorbidity and body mass index (BMI) of 50.0 to 59.9 in adult (CMS/HCC) Depression, major, single episode, moderate (CMS/HCC) documented in this encounter [facility] Work Phone: Evaluation note* Diagnosis Major depressive disorder, single episode, moderate (CMS/HCC)- Primary Major depressive disorder, single episode, moderate Anxiety Anxiety state, unspecified Gastroesophageal reflux disease, unspecified whether esophagitis present Glucose intolerance (impaired glucose tolerance) Impaired glucose tolerance test Shahzad's disease Chronic lymphocytic thyroiditis Vitamin D deficiency Fatty liver disease, nonalcoholic Elevated ferritin level Other abnormal blood chemistry Depression, major, single episode, moderate ([facility]/HCC) Generalized anxiety disorder AAT (bhpxm-4-ygwbzlqfezc) deficiency ([facility]) Ipcqw-9-uwmevlhyqpn deficiency Encounter for screening mammogram for breast cancer Class 3 severe obesity due to excess calories with serious comorbidity and body mass index (BMI) of 50.0 to 59.9 in adult (CMS/[facility]) documented in this encounter [facility] Work Phone: Evaluation note* Diagnosis URI, acute- Primary Acute upper respiratory infections of unspecified site Acute cough Acute cough [facility] Diagnosis Acute cough [facility]* Diagnosis Acute cough [facility]* Diagnosis Foot pain, right Pain in limb [facility]* Diagnosis Class 3 severe obesity with body mass index (BMI) of 50.0 to 59.9 in adult, unspecified obesity type, unspecified whether serious comorbidity present ([facility]) [facility]* Diagnosis Foot pain, left- Primary Pain in limb Injury of left foot, initial encounter Foot pain, left Pain in limb Injury of left foot, initial encounter [facility] Diagnosis Foot pain, left Pain in limb Injury of left foot, initial encounter [facility] Diagnosis Cervicalgia- Primary Anxiety Anxiety state, unspecified Polyarthralgia Pain in joint, multiple sites Chronic midline low back pain with sciatica, sciatica laterality unspecified Vitamin D deficiency 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 Class 3 severe obesity due to excess calories with serious comorbidity and body mass index (BMI) of 50.0 to 59.9 in adult Fatty liver disease, nonalcoholic Bariatric surgery status Medication management documented in this encounter [facility] Work Phone: Evaluation note* Diagnosis Chronic midline low back pain with sciatica, sciatica laterality unspecified documented in this encounter [facility] Work Phone: Evaluation note* Diagnosis Cervicalgia documented in this encounter [facility] Work Phone: Evaluation note* Diagnosis Major depressive disorder, single episode, moderate (Multi)- Primary Major depressive disorder, single episode, moderate Anxiety Anxiety state, unspecified Vitamin D deficiency 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 Glucose intolerance (impaired glucose tolerance) Impaired glucose tolerance test Class 3 severe obesity due to excess calories with serious comorbidity and body mass index (BMI) of 50.0 to 59.9 in adult (Multi) Fatty liver disease, nonalcoholic Elevated ferritin level Other abnormal blood chemistry Encounter for screening mammogram for breast cancer Generalized anxiety disorder Depression, major, single episode, moderate (Multi) Polyarthralgia Pain in joint, multiple sites Medication management documented in this encounter [facility] Work Phone: Evaluation note* Diagnosis Acute foot pain, left- Primary Anxiety Anxiety state, unspecified Gastroesophageal reflux disease, unspecified whether esophagitis present Class 3 severe obesity due to excess calories with serious comorbidity and body mass index (BMI) of 50.0 to 59.9 in adult Vitamin D deficiency Glucose intolerance (impaired glucose tolerance) Impaired glucose tolerance test Elevated ferritin level Other abnormal blood chemistry Medication management Bariatric surgery status Shahzad's disease Chronic lymphocytic thyroiditis Generalized anxiety disorder Depression, major, single episode, moderate (Multi) AAT (setmf-9-sbjnpyhfbgf) deficiency (Multi) Fehcn-2-nnghjnskase deficiency Encounter for dietary counseling and surveillance Fatty liver disease, nonalcoholic documented in this encounter [facility] Work Phone: Evaluation note* Diagnosis Sinus bradycardia- Primary Other specified cardiac dysrhythmias Encounter for screening for cardiovascular disorders Screening for other and unspecified cardiovascular conditions Chest pain, unspecified type Wide-complex tachycardia Paroxysmal ventricular tachycardia BMI 50.0-59.9, adult (HCC) Body Mass Index 50.0-59.9, adult [facility] Patient presents today for.... * 1 Med check * anxiety - on effexor, elavil and ativan prn * pt has tried about everything she believes other than prozac (she believes as far as SSRI and SNRI) * she has tried wellbutrin and little relief * she denies trying abilify in the past * synthroid - currently not on meds and most recent labs are WNL - she states she was cleared by the endo at this time * HTN /LE edema * GERD - stable on PPI - * elevated LFT - denies following with specialists at this time * elevated ferritin - has followed with specialists and states further work up indicated no concern at that time * 2 morbid obese * 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 I have considered the risks of abuse, dependence, addiction and diversion. * Last urine drug screening date/ordered today: 05/25/2021 * Date of the last Controlled Substance Agreement: 05/25/2021 -[facility] Work Phone: History of Present illness Narrative* Patient presents today for.... * 1 Med check * anxiety - on effexor, elavil and ativan prn -- has stopped elavil. She is wanting to cut down on effexor so will taper to 75 mg daily x 2 + weeks and then every other day for 2 + weeks to d/c as tolerated * pt has tried about everything she believes other than prozac (she believes as far as SSRI and SNRI) * she has tried wellbutrin and little relief * she denies trying abilify in the past * known depression - she states is stable at this time with her meds * synthroid - currently not on meds and most recent labs are WNL - she states she was cleared by the endo at this time * HTN /LE edema - HCTZ changed to lasix and is needing it on occasion - typically daily at this time * GERD - stable on PPI - * elevated LFT - following with specialists * elevated ferritin - has followed with specialists and states no further work up indicated no concern at that time- she believes her ferritin if further elevated post covid which I explained is commonly seen. Level has improved since bariatric Surgery * post op Bariatric status - Apr 11 - Basic labs post op were completed [facility] (shaun) and states all were well (CBC, BMP, liver panel, ferritin, iron, folate, PTH, B vitamins, vit D. Labs are being done periodically and cont to follow up with the surgeon * 2 Post COVID concerns * Bariatric sleeve - surgery was originally placed on hold given COVID in JUL and she cont to struggle with prob (surgery has since been done) * She has since followed with a liver specialists and states he has cleared her but is set for liver biopsy during the bariatric procedure * SOBE - she was referred to pulm and states was cleared as well * cardio - pt states she has since seen her cardio and was cleared as well. he does not believe her current CP symptoms are cardio related but rather muscular * pt is suffering with pain in the R anterior aspect of the chest into the L shoulder * she states she has had this pain since she had COVID * she states aggravated with movement * She was seen in october and dx with costochondritis, labs ordered and she was started on prednisone and albuterol but no change in the symptoms. Given her hx I question if this is more of long haul post covid complaint vs fibro or auto-immune issues. As she has been cleared by her cardio I do believethis is more M/S in nature * Jun 2022- she cont to states she suffers from CP and brain fog - we discussed referral to long [facility]covid clinic but she declines a this time * 3 review labs done over the last few months with her specialists * 4 Neck pain x 1 month - pt states she slept funny and symptoms aren't fully resolved. Admits stressis likely playing a role. she is limited on meds to take given the bariatric procedure and inability to take NSAID and is limited on tylenol given her liver issues * 5 Preventative Testing * mammo - suggest age 40 * DEXA - suggest age 50-55 * colonoscopy - suggest age 45-50 * PAP * OARRS Report Last Screening Date: 03/30/2022 * I have personally reviewed the OARRS report for CURLY SOFYA. I have considered the risks of abuse, dependence, addiction and diversion. * Last urine drug screening date/ordered today: 05/25/2021 * Date of the last Controlled Substance Agreement: 05/25/2021 -[facility] Work Phone: Reason for referral (narrative)* Outpatient Procedure (Routine) - Pending Review Specialty Diagnoses / Procedures Referred By Donna t Referred To [facility] Diagnoses Dyspnea and respiratory abnormalities Procedures LUNG VOLUMES Hung Emerson MD [address] [place] [id number] [address] Referral ID Status Reason Start Date Expiration Date Visits Requested Visits Authorized [id number] Pending Review Auto-Generat ed Referral 01/03/2022 02/02/2023 1 1 * Outpatient Procedure (Routine) - Pending Review Specialty Diagnoses / Procedures Referred By Contac t Referred To [facility] Diagnoses Dyspnea and respiratory abnormalities Procedures LUNG DIFFUSION CAPACITY (DLCO) DIFFUSING CAPACITY Hung Emerson MD [address] [place] [id number] [address] Referral ID Status Reason Start Date Expiration Date Visits Requested Visits Authorized [id number] Pending Review Auto-Generat ed Referral 01/03/2022 02/02/2023 1 1 * Outpatient Procedure (Routine) - Pending Review Specialty Diagnoses / Procedures Referred By Contharvey t Referred To [facility] Diagnoses Dyspnea and respiratory abnormalities Procedures SPIROMETRY - BASELINE AND POST DILATOR BRNCDILAT RSPSE SPMTRY PRE&POST-BRNCDILAT ADMN Hung Emerson MD [address] [place] [id number] [address] [address] Referral ID Status Reason Start Date Expiration Date Visits Requested Visits Authorized [id number] Pending Review Auto-Generat ed Referral 01/03/2022 02/02/2023 1 1 * MRI/CT (Routine) - Pending Review Specialty Diagnoses / Procedures Referred By Contac t Referred To Contact CT IMAGING Diagnoses Shortness of breath Procedures CT CHEST WO IVCON DIAGNOSTIC COMPUTED TOMOGRAPHY THORAX W/O CNTRST Hung Emerson MD [address] [place] [id number] Referral ID Status Reason Start Date Expiration Date Visits Requested Visits Authorized [id number] Pending Review Auto-Generat ed Referral 01/03/2022 02/02/2023 1 1 [facility] Administration for referral (narrative)* Diagnostic Procedure Only (Routine) - Authorized Specialty Diagnoses / Procedures Referred By Contac t Referred To Contact US IMAGING Diagnoses Fatty liver Increased liver enzymes Procedures US ABDOMEN COMPLETE US ABDOMINAL REAL TIME W/IMAGE DOCUMENTATION Brooks Stoo MD 1 [facility] [address] [address] Us Imaging Referral ID Status Reason Start Date Expiration Date Visits Requested Visits Authorized [id number] Authorized Auto-Generat ed Referral 01/13/2022 02/12/2023 1 1 [facility] for referral (narrative)* Diagnostic Procedure Only (Routine) - Closed Specialty Diagnoses / Procedures Referred By Contac t Referred To Contact US IMAGING Diagnoses Fatty liver Increased liver enzymes Procedures US ABDOMEN COMPLETE US ABDOMINAL REAL TIME W/IMAGE DOCUMENTATION Brooks Soto MD 1 [facility] [address] [address] Us Imaging Referral ID Status Reason Start Date Expiration Date V isits Requested Visits Authorized [id number] Closed Auto-Generate d Referral 01/13/2022 02/12/2023 1 1 [facility] for referral (narrative)* Diagnostic Procedure Only (Urgent) - Closed Specialty Diagnoses / Procedures Referred By Contac t Referred To Contact XR IMAGING Diagnoses Foot pain, right Procedures XR FOOT GENERAL 3V AP/LAT/OBL RIGHT RADEX FOOT COMPLETE MINIMUM 3 VIEWS [facility] [address] [place] [address] Xr Imaging Referral ID Status Reason Start Date Expiration Date V isits Requested Visits Authorized [id number] Closed Auto-Generate d Referral 11/08/2022 12/08/2023 1 1 [facility] for referral (narrative)* Diagnostic Procedure Only (Urgent) - Closed Specialty Diagnoses / Procedures Referred By Contac t Referred To Contact XR IMAGING Diagnoses Foot pain, right Procedures XR FOOT GENERAL 3V AP/LAT/OBL RIGHT RADEX FOOT COMPLETE MINIMUM 3 VIEWS [facility] [address] [facility] [place] [address] [place] [id number] Referral ID Status Reason Start Date Expiration Date V isits Requested Visits Authorized [id number] Closed Auto-Generate d Referral 11/08/2022 12/08/2023 1 1 [facility] for referral (narrative)* Diagnostic Procedure Only (Urgent) - Closed Specialty Diagnoses / Procedures Referred By Contac t Referred To Contact XR IMAGING Diagnoses Foot pain, left Injury of left foot, initial encounter Procedures XR FOOT GENERAL 3V AP/LAT/OBL LEFT RADEX FOOT COMPLETE MINIMUM 3 VIEWS Chloé Tipton APRN.CNP [address] [id number] [place] [address] Referral ID Status Reason Start Date Expiration Date V isits Requested Visits Authorized [id number] Closed Auto-Generate d Referral 06/07/2024 07/07/2025 1 1 [facility] for referral (narrative)* Diagnostic Procedure Only (Urgent) - Closed Specialty Diagnoses / Procedures Referred By Contac t Referred To Contact XR IMAGING Diagnoses Foot pain, left Injury of left foot, initial encounter Procedures XR FOOT GENERAL 3V AP/LAT/OBL LEFT RADEX FOOT COMPLETE MINIMUM 3 VIEWS Chloé Tipton APRN.CNP [address] [id number] [place] [address] Referral ID Status Reason Start Date Expiration Date V isits Requested Visits Authorized [id number] Closed Auto-Generate d Referral 06/07/2024 07/07/2025 1 1 [facility] for visit Narrative* Diagnostic Procedure Only (Routine) - Closed Specialty Diagnoses / Procedures Referred By Contac t Referred To Contact US IMAGING Diagnoses Fatty liver Increased liver enzymes Procedures US ABDOMEN COMPLETE US ABDOMINAL REAL TIME W/IMAGE DOCUMENTATION Brooks Soto MD 1 [facility] [address] [place] [address] Us Imaging Referral ID Status Reason Start Date Expiration Date V isits Requested Visits Authorized [id number] Closed Auto-Generate d Referral 01/13/2022 02/12/2023 1 1 [facility] for visit Narrative* Diagnostic Procedure Only (Urgent) - Closed Specialty Diagnoses / Procedures Referred By Contac t Referred To Contact XR IMAGING Diagnoses Foot pain, right Procedures XR FOOT GENERAL 3V AP/LAT/OBL RIGHT RADEX FOOT COMPLETE MINIMUM 3 VIEWS [facility] [address] [place] [address] [place] [address] Referral ID Status Reason Start Date Expiration Date V isits Requested Visits Authorized [id number] Closed Auto-Generate d Referral 11/08/2022 12/08/2023 1 1 [facility] for visit Narrative* Diagnostic Procedure Only (Urgent) - Closed Specialty Diagnoses / Procedures Referred By Contac t Referred To Contact XR IMAGING Diagnoses Foot pain, left Injury of left foot, initial encounter Procedures XR FOOT GENERAL 3V AP/LAT/OBL LEFT RADEX FOOT COMPLETE MINIMUM 3 VIEWS Chloé Tipton APRN.HOT WORKER [address] [place] [address] [place] [address] Referral ID Status Reason Start Date Expiration Date V isits Requested Visits Authorized [id number] Closed Auto-Generate d Referral 06/07/2024 07/07/2025 1 1 [facility] for visit Narrative* Imaging (Routine) - Authorized Specialty Diagnoses / Procedures Referred By Contac t Referred To Contact Radiology Diagnoses Chronic midline low back pain with sciatica, sciatica laterality unspecified Procedures XR lumbar spine 2-3 views Vargas Mujica, PA-C [address] [place] [address] Phone: tel: fax: Referral ID Status Reason Start Date Expiration Date Visits Requested Visits Authorized [id number] Authorized Perform Procedure 4 07/11/2025 1 1 [facility] Work Phone: Summary Purpose Family History No Family History Records Found Grandparent Name Dates Details Family history of diabetes m ellitus(V18.0, Z83.3) Status:Active aunt Name Dates Details Family history of thyroid di sease(V18.19, Z83.49) Status:Active Father Name Dates Details Family history of acute myoc ardial infarction(V17.3, Z82.49) Status:Active Family history of hypertensi on(V17.49, Z82.49) Status:Active Family history of hyperchole sterolemia(V18.19, Z83.42) Status:Active Grandparent Name Dates Details Family history of diabetes m ellitus(V18.0, Z83.3) Status:Active aunt Name Dates Details Family history of thyroid di sease(V18.19, Z83.49) Status:Active Father Name Dates Details Family history of acute myoc ardial infarction(V17.3, Z82.49) Status:Active Family history of hypertensi on(V17.49, Z82.49) Status:Active Family history of hyperchole sterolemia(V18.19, Z83.42) Status:Active Grandparent Name Dates Details Family history of diabetes m ellitus(V18.0, Z83.3) Status:Active aunt Name Dates Details Family history of thyroid di sease(V18.19, Z83.49) Status:Active Father Name Dates Details Family history of acute myoc ardial infarction(V17.3, Z82.49) Status:Active Family history of hypertensi on(V17.49, Z82.49) Status:Active Family history of hyperchole sterolemia(V18.19, Z83.42) Status:Active Unknown Family Member Name Dates Details Family history of acute myoc ardial infarction: Father(V17.3, Z82.49) Status:Active Family history of hypertensi on: Father(V17.49, Z82.49) Status:Active Family history of hyperchole sterolemia: Father(V18.19, Z83.42) Status:Active Family history of thyroid di sease: Aunt(V18.19, Z83.49) Status:Active Family history of diabetes m ellitus: Grandparent(V18.0, Z83.3) Status:Active Unknown Family Member Name Dates Details Family history of acute myoc ardial infarction: Father(V17.3, Z82.49) Status:Active Family history of hypertensi on: Father(V17.49, Z82.49) Status:Active Family history of hyperchole sterolemia: Father(V18.19, Z83.42) Status:Active Family history of thyroid di sease: Aunt(V18.19, Z83.49) Status:Active Family history of diabetes m ellitus: Grandparent(V18.0, Z83.3) Status:Active Unknown Family Member Name Dates Details Family history of acute myoc ardial infarction: Father(V17.3, Z82.49) Status:Active Family history of hypertensi on: Father(V17.49, Z82.49) Status:Active Family history of hyperchole sterolemia: Father(V18.19, Z83.42) Status:Active Family history of thyroid di sease: Aunt(V18.19, Z83.49) Status:Active Family history of diabetes m ellitus: Grandparent(V18.0, Z83.3) Status:Active Unknown Family Member Name Dates Details Family history of acute myoc ardial infarction: Father(V17.3, Z82.49) Status:Active Family history of hypertensi on: Father(V17.49, Z82.49) Status:Active Family history of hyperchole sterolemia: Father(V18.19, Z83.42) Status:Active Family history of thyroid di sease: Aunt(V18.19, Z83.49) Status:Active Family history of diabetes m ellitus: Grandparent(V18.0, Z83.3) Status:Active Unknown Family Member Name Dates Details Family history of acute myoc ardial infarction: Father(V17.3, Z82.49) Status:Active Family history of hypertensi on: Father(V17.49, Z82.49) Status:Active Family history of hyperchole sterolemia: Father(V18.19, Z83.42) Status:Active Family history of thyroid di sease: Aunt(V18.19, Z83.49) Status:Active Family history of diabetes m ellitus: Grandparent(V18.0, Z83.3) Status:Active Unknown Family Member Name Dates Details Family history of acute myoc ardial infarction: Father(V17.3, Z82.49) Status:Active Family history of hypertensi on: Father(V17.49, Z82.49) Status:Active Family history of hyperchole sterolemia: Father(V18.19, Z83.42) Status:Active Family history of thyroid di sease: Aunt(V18.19, Z83.49) Status:Active Family history of diabetes m ellitus: Grandparent(V18.0, Z83.3) Status:Active Unknown Family Member Name Dates Details Family history of diabetes m ellitus: Grandparent(V18.0, Z83.3) Status:Active Family history of thyroid di sease: Aunt(V18.19, Z83.49) Status:Active Family history of hyperchole sterolemia: Father(V18.19, Z83.42) Status:Active Family history of hypertensi on: Father(V17.49, Z82.49) Status:Active Family history of acute myoc ardial infarction: Father(V17.3, Z82.49) Status:Active Unknown Family Member Name Dates Details Family history of acute myoc ardial infarction: Father(V17.3, Z82.49) Status:Active Family history of hypertensi on: Father(V17.49, Z82.49) Status:Active Family history of hyperchole sterolemia: Father(V18.19, Z83.42) Status:Active Family history of thyroid di sease: Aunt(V18.19, Z83.49) Status:Active Family history of diabetes m ellitus: Grandparent(V18.0, Z83.3) Status:Active Unknown Family Member Name Dates Details Family history of acute myoc ardial infarction: Father(V17.3, Z82.49) Status:Active Family history of hypertensi on: Father(V17.49, Z82.49) Status:Active Family history of hyperchole sterolemia: Father(V18.19, Z83.42) Status:Active Family history of thyroid di sease: Aunt(V18.19, Z83.49) Status:Active Family history of diabetes m ellitus: Grandparent(V18.0, Z83.3) Status:Active Unknown Family Member Name Dates Details Family history of acute myoc ardial infarction: Father(V17.3, Z82.49) Status:Active Family history of hypertensi on: Father(V17.49, Z82.49) Status:Active Family history of hyperchole sterolemia: Father(V18.19, Z83.42) Status:Active Family history of thyroid di sease: Aunt(V18.19, Z83.49) Status:Active Family history of diabetes m ellitus: Grandparent(V18.0, Z83.3) Status:Active Unknown Family Member Name Dates Details Family history of acute myoc ardial infarction: Father(V17.3, Z82.49) Status:Active Family history of hypertensi on: Father(V17.49, Z82.49) Status:Active Family history of hyperchole sterolemia: Father(V18.19, Z83.42) Status:Active Family history of thyroid di sease: Aunt(V18.19, Z83.49) Status:Active Family history of diabetes m ellitus: Grandparent(V18.0, Z83.3) Status:Active Unknown Family Member Name Dates Details Family history of acute myoc ardial infarction: Father(V17.3, Z82.49) Status:Active Family history of hypertensi on: Father(V17.49, Z82.49) Status:Active Family history of hyperchole sterolemia: Father(V18.19, Z83.42) Status:Active Family history of thyroid di sease: Aunt(V18.19, Z83.49) Status:Active Family history of diabetes m ellitus: Grandparent(V18.0, Z83.3) Status:Active Unknown Family Member Name Dates Details Family history of acute myoc ardial infarction: Father(V17.3, Z82.49) Status:Active Family history of hypertensi on: Father(V17.49, Z82.49) Status:Active Family history of hyperchole sterolemia: Father(V18.19, Z83.42) Status:Active Family history of thyroid di sease: Aunt(V18.19, Z83.49) Status:Active Family history of diabetes m ellitus: Grandparent(V18.0, Z83.3) Status:Active Unknown Family Member Name Dates Details Family history of acute myoc ardial infarction: Father(V17.3, Z82.49) Status:Active Family history of hypertensi on: Father(V17.49, Z82.49) Status:Active Family history of hyperchole sterolemia: Father(V18.19, Z83.42) Status:Active Family history of thyroid di sease: Aunt(V18.19, Z83.49) Status:Active Family history of diabetes m ellitus: Grandparent(V18.0, Z83.3) Status:Active Unknown Family Member Name Dates Details Family history of acute myoc ardial infarction: Father(V17.3, Z82.49) Status:Active Family history of hypertensi on: Father(V17.49, Z82.49) Status:Active Family history of hyperchole sterolemia: Father(V18.19, Z83.42) Status:Active Family history of thyroid di sease: Aunt(V18.19, Z83.49) Status:Active Family history of diabetes m ellitus: Grandparent(V18.0, Z83.3) Status:Active Unknown Family Member Name Dates Details Family history of acute myoc ardial infarction: Father(V17.3, Z82.49) Status:Active Family history of hypertensi on: Father(V17.49, Z82.49) Status:Active Family history of hyperchole sterolemia: Father(V18.19, Z83.42) Status:Active Family history of thyroid di sease: Aunt(V18.19, Z83.49) Status:Active Family history of diabetes m ellitus: Grandparent(V18.0, Z83.3) Status:Active Unknown Family Member Name Dates Details Family history of acute myoc ardial infarction: Father(V17.3, Z82.49) Status:Active Family history of hypertensi on: Father(V17.49, Z82.49) Status:Active Family history of hyperchole sterolemia: Father(V18.19, Z83.42) Status:Active Family history of thyroid di sease: Aunt(V18.19, Z83.49) Status:Active Family history of diabetes m ellitus: Grandparent(V18.0, Z83.3) Status:Active Unknown Family Member Name Dates Details Family history of acute myoc ardial infarction: Father(V17.3, Z82.49) Status:Active Family history of hypertensi on: Father(V17.49, Z82.49) Status:Active Family history of hyperchole sterolemia: Father(V18.19, Z83.42) Status:Active Family history of thyroid di sease: Aunt(V18.19, Z83.49) Status:Active Family history of diabetes m ellitus: Grandparent(V18.0, Z83.3) Status:Active Unknown Family Member Name Dates Details Family history of acute myoc ardial infarction: Father(V17.3, Z82.49) Status:Active Family history of hypertensi on: Father(V17.49, Z82.49) Status:Active Family history of hyperchole sterolemia: Father(V18.19, Z83.42) Status:Active Family history of thyroid di sease: Aunt(V18.19, Z83.49) Status:Active Family history of diabetes m ellitus: Grandparent(V18.0, Z83.3) Status:Active Unknown Family Member Name Dates Details Family history of acute myoc ardial infarction: Father(V17.3, Z82.49) Status:Active Family history of hypertensi on: Father(V17.49, Z82.49) Status:Active Family history of hyperchole sterolemia: Father(V18.19, Z83.42) Status:Active Family history of thyroid di sease: Aunt(V18.19, Z83.49) Status:Active Family history of diabetes m ellitus: Grandparent(V18.0, Z83.3) Status:Active Unknown Family Member Name Dates Details Family history of acute myoc ardial infarction: Father(V17.3, Z82.49) Status:Active Family history of hypertensi on: Father(V17.49, Z82.49) Status:Active Family history of hyperchole sterolemia: Father(V18.19, Z83.42) Status:Active Family history of thyroid di sease: Aunt(V18.19, Z83.49) Status:Active Family history of diabetes m ellitus: Grandparent(V18.0, Z83.3) Status:Active Unknown Family Member Name Dates Details Family history of acute myoc ardial infarction: Father(V17.3, Z82.49) Status:Active Family history of hypertensi on: Father(V17.49, Z82.49) Status:Active Family history of hyperchole sterolemia: Father(V18.19, Z83.42) Status:Active Family history of thyroid di sease: Aunt(V18.19, Z83.49) Status:Active Family history of diabetes m ellitus: Grandparent(V18.0, Z83.3) Status:Active Unknown Family Member Name Dates Details Family history of acute myoc ardial infarction: Father(V17.3, Z82.49) Status:Active Family history of hypertensi on: Father(V17.49, Z82.49) Status:Active Family history of hyperchole sterolemia: Father(V18.19, Z83.42) Status:Active Family history of thyroid di sease: Aunt(V18.19, Z83.49) Status:Active Family history of diabetes m ellitus: Grandparent(V18.0, Z83.3) Status:Active Unknown Family Member Name Dates Details Family history of acute myoc ardial infarction: Father(V17.3, Z82.49) Status:Active Family history of hypertensi on: Father(V17.49, Z82.49) Status:Active Family history of hyperchole sterolemia: Father(V18.19, Z83.42) Status:Active Family history of thyroid di sease: Aunt(V18.19, Z83.49) Status:Active Family history of diabetes m ellitus: Grandparent(V18.0, Z83.3) Status:Active Unknown Family Member Name Dates Details Family history of acute myoc ardial infarction: Father(V17.3, Z82.49) Status:Active Family history of hypertensi on: Father(V17.49, Z82.49) Status:Active Family history of hyperchole sterolemia: Father(V18.19, Z83.42) Status:Active Family history of thyroid di sease: Aunt(V18.19, Z83.49) Status:Active Family history of diabetes m ellitus: Grandparent(V18.0, Z83.3) Status:Active Unknown Family Member Name Dates Details Family history of acute myoc ardial infarction: Father(V17.3, Z82.49) Status:Active Family history of hypertensi on: Father(V17.49, Z82.49) Status:Active Family history of hyperchole sterolemia: Father(V18.19, Z83.42) Status:Active Family history of thyroid di sease: Aunt(V18.19, Z83.49) Status:Active Family history of diabetes m ellitus: Grandparent(V18.0, Z83.3) Status:Active Unknown Family Member Name Dates Details Family history of acute myoc ardial infarction: Father(V17.3, Z82.49) Status:Active Family history of hypertensi on: Father(V17.49, Z82.49) Status:Active Family history of hyperchole sterolemia: Father(V18.19, Z83.42) Status:Active Family history of thyroid di sease: Aunt(V18.19, Z83.49) Status:Active Family history of diabetes m ellitus: Grandparent(V18.0, Z83.3) Status:Active Relationship Condition Age at Onset Recorded Date/T kelin Not Specified Disorder of liver Unknown Anxiety Unknown Arthritis Unknown Autoimmune disease Unknown Depression Unknown Cardiac disease Unknown Kidney disorder Unknown Myocardial infarction Unknown father Family history of [place] myocardial infarction Unknown grandfather Heart problem Unknown grandmother Heart problem Unknown Family history of diabetes mellitus Unkno wn uncle Family history of diabetes mellitus Unkno wn mother Family history of hypercholesterolemia Un known Family history of hypertension Unknown Not Specified Family history of thyroid disease Unknow n Unknown Family Member Name Dates Details Family history of acute myoc ardial infarction: Father(V17.3, Z82.49) Status:Active Family history of hypertensi on: Father(V17.49, Z82.49) Status:Active Family history of hyperchole sterolemia: Father(V18.19, Z83.42) Status:Active Family history of thyroid di sease: Aunt(V18.19, Z83.49) Status:Active Family history of diabetes m ellitus: Grandparent(V18.0, Z83.3) Status:Active Unknown Family Member Name Dates Details Family history of acute myoc ardial infarction: Father(V17.3, Z82.49) Status:Active Family history of hypertensi on: Father(V17.49, Z82.49) Status:Active Family history of hyperchole sterolemia: Father(V18.19, Z83.42) Status:Active Family history of thyroid di sease: Aunt(V18.19, Z83.49) Status:Active Family history of diabetes m ellitus: Grandparent(V18.0, Z83.3) Status:Active Unknown Family Member Name Dates Details Family history of acute myoc ardial infarction: Father(V17.3, Z82.49) Status:Active Family history of hypertensi on: Father(V17.49, Z82.49) Status:Active Family history of hyperchole sterolemia: Father(V18.19, Z83.42) Status:Active Family history of thyroid di sease: Aunt(V18.19, Z83.49) Status:Active Family history of diabetes m ellitus: Grandparent(V18.0, Z83.3) Status:Active Unknown Family Member Name Dates Details Family history of acute myoc ardial infarction: Father(V17.3, Z82.49) Status:Active Family history of hypertensi on: Father(V17.49, Z82.49) Status:Active Family history of hyperchole sterolemia: Father(V18.19, Z83.42) Status:Active Family history of thyroid di sease: Aunt(V18.19, Z83.49) Status:Active Family history of diabetes m ellitus: Grandparent(V18.0, Z83.3) Status:Active Unknown Family Member Name Dates Details Family history of acute myoc ardial infarction: Father(V17.3, Z82.49) Status:Active Family history of hypertensi on: Father(V17.49, Z82.49) Status:Active Family history of hyperchole sterolemia: Father(V18.19, Z83.42) Status:Active Family history of thyroid di sease: Aunt(V18.19, Z83.49) Status:Active Family history of diabetes m ellitus: Grandparent(V18.0, Z83.3) Status:Active Unknown Family Member Name Dates Details Family history of acute myoc ardial infarction: Father(V17.3, Z82.49) Status:Active Family history of hypertensi on: Father(V17.49, Z82.49) Status:Active Family history of hyperchole sterolemia: Father(V18.19, Z83.42) Status:Active Family history of thyroid di sease: Aunt(V18.19, Z83.49) Status:Active Family history of diabetes m ellitus: Grandparent(V18.0, Z83.3) Status:Active Advance Directives No Advanced Directives Records FoundDocuments on File Type Date Recorded Patient Rpg Developer Expl anation Advance Directive(s) 05/20/2021 10:22 AM Advance Directive(s) 03/18/2021 1:41 PM Advance Directive(s) 09/21/2018 4:36 PM Advance Directive(s) 09/20/2018 11:48 AM Latest Code Status on File Code Status Date Activated Date Inactivated Comments Full Code 09/21/2018 5:42 PM 09/26/2018 4:27 PM Full Code Order Discussed With: Patient Full Code 09/18/2018 6:09 PM 09/20/2018 6:11 PM Documents on File Type Date Recorded Patient Rpg Developer Expl anation Advance Directive(s) 05/20/2021 10:22 AM Advance Directive(s) 03/18/2021 1:41 PM Advance Directive(s) 09/21/2018 4:36 PM Advance Directive(s) 09/20/2018 11:48 AM Latest Code Status on File Code Status Date Activated Date Inactivated Comments Full Code 09/21/2018 5:42 PM 09/26/2018 4:27 PM Full Code 09/18/2018 6:09 PM 09/20/2018 6:11 PM Advance Directive Response Recorded Date/ Time Living Will No August 17, 022 8:27am Power of Epic Cadence Analyst No August 17, 2022 8:27am Advance Directive Response Recorded Date/ Time Living Will No November 15, 2022 1:50pm Power of Epic Cadence Analyst No November 15 1:50pm Advance Directive Response Recorded Date/ Time Living Will No January 05, 2023 7 :26am Power of Epic Cadence Analyst No January 05, 2023 7:26am Advance Directive Response Recorded Date/ Time Living Will No October 19 024 9:13am Power of Epic Cadence Analyst No October 19, 2023 9:13am Latest Code Status on File Code Status Date Activated Date Inactivated Comments Full Code 09/21/2018 5:42 PM 09/26/2018 4:27 PM Question Answer Comments Full Code Order Discussed With: Patient Code Status History Code Status Date Activated Date Inactivated Comments Full Code 09/18/2018 6:09 PM 09/20/2018 6:11 PM Question Answer Comments Full Code Order Discussed With: Patient Date Activated Date Inactivated Comments 09/21/2018 5:42 PM 09/26/2018 4:27 PM Question Answer Comments Full Code Order Discussed With: Patient Date Activated Date Inactivated Comments 09/18/2018 6:09 PM 09/20/2018 6:11 PM Question Answer Comments Full Code Order Discussed With: Patient Date Activated Date Inactivated Comments 09/21/2018 5:42 PM 09/26/2018 4:27 PM Question Answer Comments Full Code Order Discussed With: Patient Date Activated Date Inactivated Comments 09/18/2018 6:09 PM 09/20/2018 6:11 PM Question Answer Comments Full Code Order Discussed With: Patient Chief Complaint F/U MED CHECK/LORAZEPAM REFILL; SHE HAS BEEN SEEING THE [facility] W/ [facility]. HAD EGD X 2.PT HERE CO PAIN RIGHT UPPER BREAST AREA AND RIB SINCE HAVING COVID PT ALSO CO SWELLING AND EDEMAF/U AND DISCUSS MEDS Reason for Referral Specialty Diagnoses / Procedures Referred By Donna longoria Referred To Contact Gastroenterology Diagnoses Class 3 severe obesity due to excess calories with serious comorbidity and body mass index (BMI) of 60.0 to 69.9 in adult (HCC) Elevated liver enzymes Hepatomegaly Procedures CONSULT TO GASTROENTEROLOGY OFFICE/OUTPATIENT NEW HIGH MDM 60-74 MINUTES Dee Dee Soliman, AIR EXPORT COORDINATOR.HOT WORKER 1 [facility] [address] [place] [address] Referral ID Status Reason Start Date Expiration Date Visits Requested Visits Authorized [id number] Authorized PCP Requested Referral 12/24/2021 03/24/2022 1 1 Specialty Diagnoses / Procedures Referred By Contac t Referred To Contact CT IMAGING Diagnoses S/P laparoscopic sleeve gastrectomy Right sided abdominal pain Procedures CT ABD/PEL W IVCON CT ABD & PELVIS W/CONTRAST Marjan Eddy, AIR EXPORT COORDINATOR.HOT WORKER [address] [place] [address] Ct Imaging Referral ID Status Reason Start Date Expiration Date Visits Requested Visits Authorized [id number] Pending Review Patient Cleared - Admin/Chair man/Directo r advise to proceed 04/19/2022 05/19/2023 2 2 Specialty Diagnoses / Procedures Referred By Contac t Referred To Contact Radiology Diagnoses Encounter for screening mammogram for breast cancer Procedures BI mammo bilateral screening tomosynthesis Vargas Mujica PA-C [address] [place] [address] Referral ID Status Reason Start Date Expiration Date Visits Requested Visits Authorized [id number] Authorized Perform Procedure 09/25/2023 09/24/2024 1 1 Specialty Diagnoses / Procedures Referred By Contac t Referred To Contact Radiology Diagnoses Generalized anxiety disorder Procedures BI mammo bilateral screening tomosynthesis Vargas Mujica PA-C [address] [place] [address] Referral ID Status Reason Start Date Expiration Date Visits Requested Visits Authorized [id number] Authorized Perform Procedure 02/28/2024 02/27/2025 1 1 Chief Complaint and Reason for Visit Chief Complaint chest pain Chief Complaint chest pain PE/NON DOT/DRUG SCREEN/PRC CHEST PAIN Chief Complaint PE/NON DOT/DRUG SCRE EN/PRC CHEST PAIN cp Chief Complaint CHEST PAIN/WEAKNESS head pain Additional Source Comments INFORMATION SOURCE (unrecogn ized section and content) DATE CREATED AUTHOR 10/08/2018 [facility] DATE CREATED AUTHOR AUTHOR'S ORGANIZ ATION 02/20/2019 [facility] DATE CREATED AUTHOR AUTHOR'S ORGANIZ ATION 07/13/2020 [facility] DATE CREATED AUTHOR AUTHOR'S ORGANIZ ATION 10/17/2022 [facility] DATE CREATED AUTHOR AUTHOR'S ORGANIZ ATION 10/18/2022 [facility] DATE CREATED AUTHOR AUTHOR'S ORGANIZ ATION 02/14/2023 [facility] DATE CREATED AUTHOR AUTHOR'S ORGANIZ ATION 07/16/2024 [facility] DATE CREATED AUTHOR AUTHOR'S ORGANIZ ATION 07/16/[address] [facility] DATE CREATED AUTHOR AUTHOR'S ORGANIZ ATION 11/09/2024 [facility] DATE CREATED AUTHOR AUTHOR'S ORGANIZ ATION 01/13/2025 [facility] DATE CREATED AUTHOR AUTHOR'S ORGANIZ ATION 01/23/2025 [facility] DATE CREATED AUTHOR AUTHOR'S ORGANIZ ATION 02/13/2025 [facility] Source Comments (unrecognize d section and content) In the event this informatio n is protected by the Federal Confidentiality of Alcohol and Drug Abuse Patient Records regulations: The Federal rules restrict any use of the information to criminally investigate or prosecute any alcohol or drug abuse patient.[facility] the event this information is protected by the Federal Confidentiality of Alcohol and Drug Abuse Patient Records regulations: The Federal rules restrict any use of the information to criminally investigate or prosecute any alcohol or drug abuse patient.[facility] [place] [facility] HospitalIn the event this information is protected by the Federal Confidentiality of Alcohol and Drug Abuse Patient Records regulations: The Federal rules restrict any use of the information to criminally investigate or prosecute any alcohol or drug abuse patient.[facility] [place] [facility] HospitalIn the event this information is protected by the Federal Confidentiality of Alcohol and Drug Abuse Patient Records regulations: The Federal rules restrict any use of the information to criminally investigate or prosecute any alcohol or drug abuse patient.[facility] [place] [facility] HospitalIn the event this information is protected by the Federal Confidentiality of Alcohol and Drug Abuse Patient Records regulations: The Federal rules restrict any use of the information to criminally investigate or prosecute any alcohol or drug abuse patient.[facility] [place] [facility] HospitalIn the event this information is protected by the Federal Confidentiality of Alcohol and Drug Abuse Patient Records regulations: The Federal rules restrict any use of the information to criminally investigate or prosecute any alcohol or drug abuse patient.[facility] [place] [facility] HospitalIn the event this information is protected by the Federal Confidentiality of Alcohol and Drug Abuse Patient Records regulations: The Federal rules restrict any use of the information to criminally investigate or prosecute any alcohol or drug abuse patient.[facility] [place] [facility] HospitalIn the event this information is protected by the Federal Confidentiality of Alcohol and Drug Abuse Patient Records regulations: The Federal rules restrict any use of the information to criminally investigate or prosecute any alcohol or drug abuse patient.[facility] [place] [facility] HospitalIn the event this information is protected by the Federal Confidentiality of Alcohol and Drug Abuse Patient Records regulations: The Federal rules restrict any use of the information to criminally investigate or prosecute any alcohol or drug abuse patient.[facility] [place] [facility] HospitalIn the event this information is protected by the Federal Confidentiality of Alcohol and Drug Abuse Patient Records regulations: The Federal rules restrict any use of the information to criminally investigate or prosecute any alcohol or drug abuse patient.[facility] [place] [facility] HospitalIn the event this information is protected by the Federal Confidentiality of Alcohol and Drug Abuse Patient Records regulations: The Federal rules restrict any use of the information to criminally investigate or prosecute any alcohol or drug abuse patient.[facility] [place] [facility] HospitalIn the event this information is protected by the Federal Confidentiality of Alcohol and Drug Abuse Patient Records regulations: The Federal rules restrict any use of the information to criminally investigate or prosecute any alcohol or drug abuse patient.[facility] [place] [facility] HospitalIn the event this information is protected by the Federal Confidentiality of Alcohol and Drug Abuse Patient Records regulations: The Federal rules restrict any use of the information to criminally investigate or prosecute any alcohol or drug abuse patient.[facility] [place] [facility] HospitalIn the event this information is protected by the Federal Confidentiality of Alcohol and Drug Abuse Patient Records regulations: The Federal rules restrict any use of the information to criminally investigate or prosecute any alcohol or drug abuse patient.[facility] [place] [facility] HospitalIn the event this information is protected by the Federal Confidentiality of Alcohol and Drug Abuse Patient Records regulations: The Federal rules restrict any use of the information to criminally investigate or prosecute any alcohol or drug abuse patient.[facility] [place] [facility] HospitalIn the event this information is protected by the Federal Confidentiality of Alcohol and Drug Abuse Patient Records regulations: The Federal rules restrict any use of the information to criminally investigate or prosecute any alcohol or drug abuse patient.[facility] [place] [facility] HospitalIn the event this information is protected by the Federal Confidentiality of Alcohol and Drug Abuse Patient Records regulations: The Federal rules restrict any use of the information to criminally investigate or prosecute any alcohol or drug abuse patient.[facility] [place] [facility] HospitalIn the event this information is protected by the Federal Confidentiality of Alcohol and Drug Abuse Patient Records regulations: The Federal rules restrict any use of the information to criminally investigate or prosecute any alcohol or drug abuse patient.[facility] [place] [facility] HospitalIn the event this information is protected by the Federal Confidentiality of Alcohol and Drug Abuse Patient Records regulations: The Federal rules restrict any use of the information to criminally investigate or prosecute any alcohol or drug abuse patient.[facility] [place] [facility] HospitalIn the event this information is protected by the Federal Confidentiality of Alcohol and Drug Abuse Patient Records regulations: The Federal rules restrict any use of the information to criminally investigate or prosecute any alcohol or drug abuse patient.[facility] [place] [facility] HospitalIn the event this information is protected by the Federal Confidentiality of Alcohol and Drug Abuse Patient Records regulations: The Federal rules restrict any use of the information to criminally investigate or prosecute any alcohol or drug abuse patient.[facility] [place] [facility] HospitalIn the event this information is protected by the Federal Confidentiality of Alcohol and Drug Abuse Patient Records regulations: The Federal rules restrict any use of the information to criminally investigate or prosecute any alcohol or drug abuse patient.[facility] [place] [facility] HospitalIn the event this information is protected by the Federal Confidentiality of Alcohol and Drug Abuse Patient Records regulations: The Federal rules restrict any use of the information to criminally investigate or prosecute any alcohol or drug abuse patient.[facility] [place] [facility] HospitalIn the event this information is protected by the Federal Confidentiality of Alcohol and Drug Abuse Patient Records regulations: The Federal rules restrict any use of the information to criminally investigate or prosecute any alcohol or drug abuse patient.[facility] [place] [facility] HospitalIn the event this information is protected by the Federal Confidentiality of Alcohol and Drug Abuse Patient Records regulations: The Federal rules restrict any use of the information to criminally investigate or prosecute any alcohol or drug abuse patient.[facility] [place] [facility] HospitalIn the event this information is protected by the Federal Confidentiality of Alcohol and Drug Abuse Patient Records regulations: The Federal rules restrict any use of the information to criminally investigate or prosecute any alcohol or drug abuse patient.[facility] [place] [facility] HospitalIn the event this information is protected by the Federal Confidentiality of Alcohol and Drug Abuse Patient Records regulations: The Federal rules restrict any use of the information to criminally investigate or prosecute any alcohol or drug abuse patient.[facility] [place] [facility] HospitalIn the event this information is protected by the Federal Confidentiality of Alcohol and Drug Abuse Patient Records regulations: The Federal rules restrict any use of the information to criminally investigate or prosecute any alcohol or drug abuse patient.[facility] [place] [facility] HospitalIn the event this information is protected by the Federal Confidentiality of Alcohol and Drug Abuse Patient Records regulations: The Federal rules restrict any use of the information to criminally investigate or prosecute any alcohol or drug abuse patient.[facility] [place] [facility] HospitalIn the event this information is protected by the Federal Confidentiality of Alcohol and Drug Abuse Patient Records regulations: The Federal rules restrict any use of the information to criminally investigate or prosecute any alcohol or drug abuse patient.[facility] [place] [facility] HospitalIn the event this information is protected by the Federal Confidentiality of Alcohol and Drug Abuse Patient Records regulations: The Federal rules restrict any use of the information to criminally investigate or prosecute any alcohol or drug abuse patient.[facility] [place] [facility] HospitalIn the event this information is protected by the Federal Confidentiality of Alcohol and Drug Abuse Patient Records regulations: The Federal rules restrict any use of the information to criminally investigate or prosecute any alcohol or drug abuse patient.[facility] [place] [facility] HospitalIn the event this information is protected by the Federal Confidentiality of Alcohol and Drug Abuse Patient Records regulations: The Federal rules restrict any use of the information to criminally investigate or prosecute any alcohol or drug abuse patient.[facility] [place] [facility] HospitalIn the event this information is protected by the Federal Confidentiality of Alcohol and Drug Abuse Patient Records regulations: The Federal rules restrict any use of the information to criminally investigate or prosecute any alcohol or drug abuse patient.[facility] [place] [facility] HospitalIn the event this information is protected by the Federal Confidentiality of Alcohol and Drug Abuse Patient Records regulations: The Federal rules restrict any use of the information to criminally investigate or prosecute any alcohol or drug abuse patient.[facility] [place] [facility] HospitalIn the event this information is protected by the Federal Confidentiality of Alcohol and Drug Abuse Patient Records regulations: The Federal rules restrict any use of the information to criminally investigate or prosecute any alcohol or drug abuse patient.[facility] [place] [facility] HospitalIn the event this information is protected by the Federal Confidentiality of Alcohol and Drug Abuse Patient Records regulations: The Federal rules restrict any use of the information to criminally investigate or prosecute any alcohol or drug abuse patient.[facility] [place] [facility] HospitalIn the event this information is protected by the Federal Confidentiality of Alcohol and Drug Abuse Patient Records regulations: The Federal rules restrict any use of the information to criminally investigate or prosecute any alcohol or drug abuse patient.[facility] [place] [facility] HospitalIn the event this information is protected by the Federal Confidentiality of Alcohol and Drug Abuse Patient Records regulations: The Federal rules restrict any use of the information to criminally investigate or prosecute any alcohol or drug abuse patient.[facility] [place] [facility] HospitalIn the event this information is protected by the Federal Confidentiality of Alcohol and Drug Abuse Patient Records regulations: The Federal rules restrict any use of the information to criminally investigate or prosecute any alcohol or drug abuse patient.[facility] [place] [facility] HospitalIn the event this information is protected by the Federal Confidentiality of Alcohol and Drug Abuse Patient Records regulations: The Federal rules restrict any use of the information to criminally investigate or prosecute any alcohol or drug abuse patient.[facility] [place] [facility] HospitalIn the event this information is protected by the Federal Confidentiality of Alcohol and Drug Abuse Patient Records regulations: The Federal rules restrict any use of the information to criminally investigate or prosecute any alcohol or drug abuse patient.[facility] [place] [facility] HospitalIn the event this information is protected by the Federal Confidentiality of Alcohol and Drug Abuse Patient Records regulations: The Federal rules restrict any use of the information to criminally investigate or prosecute any alcohol or drug abuse patient.[facility] [place] [facility] HospitalIn the event this information is protected by the Federal Confidentiality of Alcohol and Drug Abuse Patient Records regulations: The Federal rules restrict any use of the information to criminally investigate or prosecute any alcohol or drug abuse patient.[facility] [place] [facility] HospitalIn the event this information is protected by the Federal Confidentiality of Alcohol and Drug Abuse Patient Records regulations: The Federal rules restrict any use of the information to criminally investigate or prosecute any alcohol or drug abuse patient.[facility] [place] [facility] HospitalIn the event this information is protected by the Federal Confidentiality of Alcohol and Drug Abuse Patient Records regulations: The Federal rules restrict any use of the information to criminally investigate or prosecute any alcohol or drug abuse patient.[facility] [place] [facility] HospitalIn the event this information is protected by the Federal Confidentiality of Alcohol and Drug Abuse Patient Records regulations: The Federal rules restrict any use of the information to criminally investigate or prosecute any alcohol or drug abuse patient.[facility] [place] [facility] HospitalIn the event this information is protected by the Federal Confidentiality of Alcohol and Drug Abuse Patient Records regulations: The Federal rules restrict any use of the information to criminally investigate or prosecute any alcohol or drug abuse patient.[facility] [place] [facility] HospitalIn the event this information is protected by the Federal Confidentiality of Alcohol and Drug Abuse Patient Records regulations: The Federal rules restrict any use of the information to criminally investigate or prosecute any alcohol or drug abuse patient.[facility] [place] [facility] HospitalIn the event this information is protected by the Federal Confidentiality of Alcohol and Drug Abuse Patient Records regulations: The Federal rules restrict any use of the information to criminally investigate or prosecute any alcohol or drug abuse patient.[facility] [place] [facility] HospitalIn the event this information is protected by the Federal Confidentiality of Alcohol and Drug Abuse Patient Records regulations: The Federal rules restrict any use of the information to criminally investigate or prosecute any alcohol or drug abuse patient.[facility] [place] [facility] HospitalIn the event this information is protected by the Federal Confidentiality of Alcohol and Drug Abuse Patient Records regulations: The Federal rules restrict any use of the information to criminally investigate or prosecute any alcohol or drug abuse patient.[facility] [place] [facility] HospitalIn the event this information is protected by the Federal Confidentiality of Alcohol and Drug Abuse Patient Records regulations: The Federal rules restrict any use of the information to criminally investigate or prosecute any alcohol or drug abuse patient.[facility] [place] [facility] HospitalIn the event this information is protected by the Federal Confidentiality of Alcohol and Drug Abuse Patient Records regulations: The Federal rules restrict any use of the information to criminally investigate or prosecute any alcohol or drug abuse patient.[facility] [place] [facility] HospitalIn the event this information is protected by the Federal Confidentiality of Alcohol and Drug Abuse Patient Records regulations: The Federal rules restrict any use of the information to criminally investigate or prosecute any alcohol or drug abuse patient.[facility] [place] [facility] HospitalIn the event this information is protected by the Federal Confidentiality of Alcohol and Drug Abuse Patient Records regulations: The Federal rules restrict any use of the information to criminally investigate or prosecute any alcohol or drug abuse patient.[facility] [place] [facility] HospitalIn the event this information is protected by the Federal Confidentiality of Alcohol and Drug Abuse Patient Records regulations: The Federal rules restrict any use of the information to criminally investigate or prosecute any alcohol or drug abuse patient.[facility] [place] [facility] HospitalIn the event this information is protected by the Federal Confidentiality of Alcohol and Drug Abuse Patient Records regulations: The Federal rules restrict any use of the information to criminally investigate or prosecute any alcohol or drug abuse patient.[facility] [place] [facility] HospitalIn the event this information is protected by the Federal Confidentiality of Alcohol and Drug Abuse Patient Records regulations: The Federal rules restrict any use of the information to criminally investigate or prosecute any alcohol or drug abuse patient.[facility] [place] [facility] HospitalIn the event this information is protected by the Federal Confidentiality of Alcohol and Drug Abuse Patient Records regulations: The Federal rules restrict any use of the information to criminally investigate or prosecute any alcohol or drug abuse patient.[facility] [place] [facility] HospitalIn the event this information is protected by the Federal Confidentiality of Alcohol and Drug Abuse Patient Records regulations: The Federal rules restrict any use of the information to criminally investigate or prosecute any alcohol or drug abuse patient.[facility] [place] [facility] HospitalIn the event this information is protected by the Federal Confidentiality of Alcohol and Drug Abuse Patient Records regulations: The Federal rules restrict any use of the information to criminally investigate or prosecute any alcohol or drug abuse patient.[facility] [place] [facility] HospitalIn the event this information is protected by the Federal Confidentiality of Alcohol and Drug Abuse Patient Records regulations: The Federal rules restrict any use of the information to criminally investigate or prosecute any alcohol or drug abuse patient.[facility] [place] [facility] HospitalIn the event this information is protected by the Federal Confidentiality of Alcohol and Drug Abuse Patient Records regulations: The Federal rules restrict any use of the information to criminally investigate or prosecute any alcohol or drug abuse patient.[facility] [place] [facility] HospitalIn the event this information is protected by the Federal Confidentiality of Alcohol and Drug Abuse Patient Records regulations: The Federal rules restrict any use of the information to criminally investigate or prosecute any alcohol or drug abuse patient.[facility] [place] [facility] HospitalIn the event this information is protected by the Federal Confidentiality of Alcohol and Drug Abuse Patient Records regulations: The Federal rules restrict any use of the information to criminally investigate or prosecute any alcohol or drug abuse patient.[facility] [place] [facility] HospitalIn the event this information is protected by the Federal Confidentiality of Alcohol and Drug Abuse Patient Records regulations: The Federal rules restrict any use of the information to criminally investigate or prosecute any alcohol or drug abuse patient.[facility] [place] [facility] HospitalIn the event this information is protected by the Federal Confidentiality of Alcohol and Drug Abuse Patient Records regulations: The Federal rules restrict any use of the information to criminally investigate or prosecute any alcohol or drug abuse patient.[facility] [place] [facility] HospitalIn the event this information is protected by the Federal Confidentiality of Alcohol and Drug Abuse Patient Records regulations: The Federal rules restrict any use of the information to criminally investigate or prosecute any alcohol or drug abuse patient.[facility] [place] [facility] HospitalIn the event this information is protected by the Federal Confidentiality of Alcohol and Drug Abuse Patient Records regulations: The Federal rules restrict any use of the information to criminally investigate or prosecute any alcohol or drug abuse patient.[facility] [place] [facility] HospitalIn the event this information is protected by the Federal Confidentiality of Alcohol and Drug Abuse Patient Records regulations: The Federal rules restrict any use of the information to criminally investigate or prosecute any alcohol or drug abuse patient.[facility] [place] [facility] HospitalIn the event this information is protected by the Federal Confidentiality of Alcohol and Drug Abuse Patient Records regulations: The Federal rules restrict any use of the information to criminally investigate or prosecute any alcohol or drug abuse patient.[facility] [place] [facility] HospitalIn the event this information is protected by the Federal Confidentiality of Alcohol and Drug Abuse Patient Records regulations: The Federal rules restrict any use of the information to criminally investigate or prosecute any alcohol or drug abuse patient.[facility] [place] [facility] HospitalIn the event this information is protected by the Federal Confidentiality of Alcohol and Drug Abuse Patient Records regulations: The Federal rules restrict any use of the information to criminally investigate or prosecute any alcohol or drug abuse patient.[facility] [place] [facility] the event this information is protected by the Federal Confidentiality of Alcohol and Drug Abuse Patient Records regulations: The Federal rules restrict any use of the information to criminally investigate or prosecute any alcohol or drug abuse patient.[facility] [place] [facility]In the event this information is protected by the Federal Confidentiality of Alcohol and Drug Abuse Patient Records regulations: The Federal rules restrict any use of the information to criminally investigate or prosecute any alcohol or drug abuse patient.[facility] [place] [facility] HospitalIn the event this information is protected by the Federal Confidentiality of Alcohol and Drug Abuse Patient Records regulations: The Federal rules restrict any use of the information to criminally investigate or prosecute any alcohol or drug abuse patient.[facility] [place] [facility] HospitalIn the event this information is protected by the Federal Confidentiality of Alcohol and Drug Abuse Patient Records regulations: The Federal rules restrict any use of the information to criminally investigate or prosecute any alcohol or drug abuse patient.[facility] [place] [facility] Reason for Visit (unrecogniz ed section and content) Reason Comments Refill Request Reason Comments Follow Up Reason Comments Medical Clearance Reason Comments Patient Update Outside lab results Reason Comments Appointment Reason Comments Radiology US results Reason Comments Received Outside Medical Records [place] [facility] Reason Comments Established Patient Reason Comments possible Hepatitis diagnosis Reason Comments Established Patient Reason Comments Shortness of Breath chest tightness Reason Comments Established Patient Follow-Up Reason Comments Results Reason Comments Shortness of Breath Specialty Diagnoses / Procedures Referred By Contac t Referred [facility] Diagnoses Dyspnea and respiratory abnormalities Procedures SPIROMETRY - BASELINE AND POST DILATOR BRNCDILAT RSPSE SPMTRY PRE&POST-BRNCDILAT ADMN Hung Emerson MD [address] [place] [address] [address] [address] Referral ID Status Reason Start Date Expiration Date V isits Requested Visits Authorized [id number] Closed Auto-Generate d Referral 01/03/2022 02/02/2023 1 1 Specialty Diagnoses / Procedures Referred By Contac t Referred To Contact [facility] Diagnoses Dyspnea and respiratory abnormalities Procedures LUNG DIFFUSION CAPACITY (DLCO) DIFFUSING CAPACITY Hung Emerson MD [address] [place] [address] [address] Referral ID Status Reason Start Date Expiration Date V isits Requested Visits Authorized [id number] Closed Auto-Generate d Referral 01/03/2022 02/02/2023 1 1 Specialty Diagnoses / Procedures Referred By Contac t Referred To Contact [facility] Diagnoses Dyspnea and respiratory abnormalities Procedures LUNG VOLUMES PLETHYSMOGRAPHY LUNG VOLUMES W/WO AIRWAY RESIST Hung Emerson MD [address] [place] [address] Respiratory [place] [address] [place] [id number] Referral ID Status Reason Start Date Expiration Date V isits Requested Visits Authorized [id number] Closed Auto-Generate d Referral 01/19/2022 08/27/2022 1 1 Reason Comments FYI-No Action Needed Reason Comments Letter Reason Comments Opened In Error Reason Comments Patient Update Inpatient rounding Reason Comments Patient Update Reason Comments Surgical Followup Reason Comments Post Op Follow Up Specialty Diagnoses / Procedures Referred By Contac t Referred To Contact CT IMAGING Diagnoses S/P laparoscopic sleeve gastrectomy Right sided abdominal pain Procedures CT ABD/PEL W IVCON CT ABD & PELVIS W/CONTRAST Marjan Eddy, AIR EXPORT COORDINATOR.HOT WORKER [address] [place] [address] Ct Imaging Referral ID Status Reason Start Date Expiration Date Visits Requested Visits Authorized [id number] Pending Review Patient Cleared - Admin/Chair man/Directo r advise to proceed 04/19/2022 05/19/2023 2 2 Reason Comments Post Op Follow Up Reason Comments Cough Pt reported chest co ngestion, intermittent SOB, x1 wk. Reason Comments Patient Question Nausea, abdominal pa in Reason Comments right foot pain X 1 month-cannot rec all an injury Reason Comments Dizziness Dizziness and draina ge from ears x 2 days Reason Comments Follow-up 7 MONTH F/U - LABS D ONE IN SEPTEMBER 2022. C/O MUSCLE/JOINT PAINS, FATIGUE, AND ANXIETY/DEPRESSION. FH RHEUMATOID ARTHRITIS (FATHER). SHE HAD GASTRIC SLEEVE IN MARCH 2022 AND HAS LOST OVER 100 LBS SINCE. C/O URINARY INCONTINENCE. POSITIVE PHQ2/9 Reason Comments ZIO RESULTS Reason Comments Follow-up GENERAL CHECK UP + M ED REFILL ATIVAN. POSITIVE PHQ 2/9 - FATHER 08/23/23. Reason Comments Patient Question palpations Reason Comments Sinus Problem Congestion, cough, s ore throat, MCKINNEY x 3 days Reason Comments Foot Trauma LEFT foot & lower le g x 3 days Reason Comments Follow-up C/O B/L ARM NUMBNESS AND TINGLING X 2 MONTHS. C/O STIFFNESS IN ALL HER JOINTS. C/O FACIAL FLUSHING OFF/ON. REQUESTING REFILL ATIVAN. Reason Comments Follow-up CURRENTLY TAKING EFF EXOR ONCE A DAY. WOULD LIKE TO INCREASE BID DUE TO A LOT OF LIFE CHANGES LATELY. IS INTERESTED IN GETTING TESTED FOR ADHD. STATES GOT WORST OVER THE YEARS CAN'T CONCENTRATE/SIT STILL. PHQ IS POSTIVE. ATIVAN CONTROL RENEWAL AND UTOX DUE Reason Comments Follow-up C/O LIVER PAIN AND DISCUSS SOMETHING FOR WEIGHT LOSS. C/O TENDONITIS ON/OFF LT FOOT IBUPROFEN IS NOT HELPING Reason Comments Appointment Patient Update Reason Comments Cardiology Follow Up - Generic sooner f/ u than shaun - bradycardia Reason Onset Date Comments Follow Up Tests Results 02/10/2025 Care Teams (unrecognized sec tion and content) Center Sales And Service Associate Relationship Specialty Start Date End Date Vargas Mujica PA [address] [place] [address] PCP - General Internal Medicine 09/17/18 Joshua Camacho (Hist) [address] [place], [place] [id number] Specialty Residential Appraiser Cardiology 09/19/18 Edith Taylor MD [address] [place] [address] Specialty Residential Appraiser Gastroenterology 09/19/18 Bonita Naqvi [address] [place] [address] Specialty Residential Appraiser Rheumatology 09/19/18 No, Referral Referring Cardiology 06/26/19 Eric Crooks MD [address] [place] [address] Primary Staff Physician Cardiology 02/11/20 Center Sales And Service Associate Relationship Specialty Start Date End Date Vargas Mujica PA [address] [place] [address] PCP - General Internal Medicine 09/17/18 Joshua Camacho (Hist) [address] [place] [address] Specialty Residential Appraiser Cardiology 09/19/18 Edith Taylor MD [address] [place] [address] Specialty Residential Appraiser Gastroenterology 09/19/18 Bonita Naqvi [address] [place] [address] Specialty Residential Appraiser Rheumatology 09/19/18 No, Referral Referring Cardiology 06/26/19 Eric Crooks MD [address] [place] [address] Primary Staff Physician Cardiology 02/11/20 Center Sales And Service Associate Relationship Specialty Start Date End Date Vargas Mujica PA [address] [place] [address] PCP - General Internal Medicine 09/17/18 Joshua Camacho (Hist) [address] [facility] [place], [place] [address] (Fax) Specialty Residential Appraiser Cardiology 09/19/18 Edith Taylor MD [address] [place], [place] [phone] Specialty Residential Appraiser Gastroenterology 09/19/18 Bonita Naqvi [address] [place] [address] Specialty Residential Appraiser Rheumatology 09/19/18 No, Referral Referring Cardiology 06/26/19 Eric Crooks MD [address] [place], [place] [id number] Primary Staff Physician Cardiology 02/11/20 Center Sales And Service Associate Relationship Specialty Start Date End Date Vargas Mujica PA [address] [place] [address] PCP - General Internal Medicine 09/17/18 Joshua Camacho (Hist) [address] [place] [address] (Fax) Specialty Residential Appraiser Cardiology 09/19/18 Edith Taylor MD [address] [place] [address] Specialty Residential Appraiser Gastroenterology 09/19/18 Bonita Naqvi [address] [place] [address] Specialty Residential Appraiser Rheumatology 09/19/18 No, Referral Referring Cardiology 06/26/19 Eric Crooks MD [address] [place] [address] Primary Staff Physician Cardiology 02/11/20 Tomasz Garay MD [address] [facility] [place] [address] Cardiology 11/24/21 Center Sales And Service Associate Relationship Specialty Start Date End Date Vargas Mujica PA [address] [place] [place] [address] PCP - General Internal Medicine 09/17/18 Joshua Camacho (Hist) [address] [place] [address] (Fax) Specialty Residential Appraiser Cardiology 09/19/18 Edith Taylor MD [address] [place], [place] [phone] Specialty Residential Appraiser Gastroenterology 09/19/18 Bonita Naqvi [address] [place] [address] Specialty Residential Appraiser Rheumatology 09/19/18 No, Referral Referring Cardiology 06/26/19 Eric Crooks MD [address] [place], [place] [id number] Primary Staff Physician Cardiology 02/11/20 Tomasz Garay MD [address] [place] [address] Cardiology 11/24/21 Center Sales And Service Associate Relationship Specialty Start Date End Date Vargas Mujica PA [address] [place] [place] [address] PCP - General Internal Medicine 09/17/18 Joshua Camacho (Hist) [address] [place] [address] Specialty Residential Appraiser Cardiology 09/19/18 Edith Taylor MD [address] [place], [place] [phone] Specialty Residential Appraiser Gastroenterology 09/19/18 Bonita Naqvi [address] [place] [address] Specialty Residential Appraiser Rheumatology 09/19/18 No, Referral Referring Cardiology 06/26/19 Eric Crooks MD [address] [place] [address] Primary Staff Physician Cardiology 02/11/20 Tomasz Garay MD [address] [place] [address] Cardiology 11/24/21 Center Sales And Service Associate Relationship Specialty Start Date End Date Vargas Mujica PA [address] [place] [address] PCP - General Internal Medicine 09/17/18 Joshua Camacho (Hist) [address] [place] [address] Specialty Residential Appraiser Cardiology 09/19/18 Edith Taylor MD [address] [place] [address] Specialty Residential Appraiser Gastroenterology 09/19/18 Bonita Naqvi [address] [place] [address] Specialty Residential Appraiser Rheumatology 09/19/18 No, Referral Referring Cardiology 06/26/19 Eric Crooks MD [address] [place] [address] Primary Staff Physician Cardiology 02/11/20 Tomasz Garay MD [address] [place] [address] Cardiology 11/24/21 Center Sales And Service Associate Relationship Specialty Start Date End Date Vargas Mujica PA [address] [place] [address] PCP - General Internal Medicine 09/17/18 Joshua Camacho (Hist) [address] [place] [address] Specialty Residential Appraiser Cardiology 09/19/18 Edith Taylor MD [address] [place], [place] [phone] Specialty Residential Appraiser Gastroenterology 09/19/18 Bonita Naqvi [address] [place] [address] Specialty Residential Appraiser Rheumatology 09/19/18 No, Referral Referring Cardiology 06/26/19 Eric Crooks MD [address] [place] [address] Primary Staff Physician Cardiology 02/11/20 Tomasz Garay MD [address] [place] [address] Cardiology 11/24/21 Center Sales And Service Associate Relationship Specialty Start Date End Date Vargas Mujica PA [address] [place] [address] PCP - General Internal Medicine 09/17/18 Joshua Camacho (Hist) [address] [place] [address] Specialty Residential Appraiser Cardiology 09/19/18 Edith Taylor MD [address] [place] [address] Specialty Residential Appraiser Gastroenterology 09/19/18 Bonita Naqvi [address] [place] [address] Specialty Residential Appraiser Rheumatology 09/19/18 No, Referral Referring Cardiology 06/26/19 Eric Crooks MD [address] [place] [address] Primary Staff Physician Cardiology 02/11/20 Tomasz Garay MD [address] [facility] [place], [place] [address] Cardiology 11/24/21 Center Sales And Service Associate Relationship Specialty Start Date End Date Vargas Mujica, JUNE [address] [place] [address] PCP - General Internal Medicine 09/17/18 Joshua Camacho (Hist) [address] [facility] [place], [place] [address] Specialty Residential Appraiser Cardiology 09/19/18 Edith Taylor MD [address] [place] [address] Specialty Residential Appraiser Gastroenterology 09/19/18 Bonita Naqvi [address] [place] [place] [address] Specialty Residential Appraiser Rheumatology 09/19/18 No, Referral Referring Cardiology 06/26/19 Eric Crooks MD [address] [place] [address] Primary Staff Physician Cardiology 02/11/20 Tomasz Garay MD [address] [facility] [place] [address] Cardiology 11/24/21 Center Sales And Service Associate Relationship Specialty Start Date End Date Vargas Mujica, PA [address] [place], [place] [id number] PCP - General Internal Medicine 09/17/18 Joshua Camacho (Hist) [address] [place] [address] (Fax) Specialty Residential Appraiser Cardiology 09/19/18 Edith Taylor MD [address] [place] [address] Specialty Residential Appraiser Gastroenterology 09/19/18 Bonita Naqvi [address] [place] [address] Specialty Residential Appraiser Rheumatology 09/19/18 No, Referral Referring Cardiology 06/26/19 Eric Crooks MD [address] [place] [address] Primary Staff Physician Cardiology 02/11/20 Tomasz Garay MD [address] [place] [address] Cardiology 11/24/21 Center Sales And Service Associate Relationship Specialty Start Date End Date Vargas Mujica, JUNE [address] [place] [id number] PCP - General Internal Medicine 09/17/18 Joshua Camacho (Hist) [address] [place] [address] (Fax) Specialty Residential Appraiser Cardiology 09/19/18 Edith Taylor MD [address] [place] [address] Specialty Residential Appraiser Gastroenterology 09/19/18 Bonita Naqvi [address] [place] [address] Specialty Residential Appraiser Rheumatology 09/19/18 No, Referral Referring Cardiology 06/26/19 Eric Crooks MD [address] [place] [address] Primary Staff Physician Cardiology 02/11/20 Tomasz Garay MD [address] [place] [address] Cardiology 11/24/21 Center Sales And Service Associate Relationship Specialty Start Date End Date Vargas Mujica PA [address] [place] [address] PCP - General Internal Medicine 09/17/18 Joshua Camacho (Hist) [address] [facility] [place] [address] Specialty Residential Appraiser Cardiology 09/19/18 Edith Taylor MD [address] [place] [address] Specialty Residential Appraiser Gastroenterology 09/19/18 Bonita Naqvi [address] [place] [address] Specialty Residential Appraiser Rheumatology 09/19/18 No, Referral Referring Cardiology 06/26/19 Eric Crooks MD [address] [place] [address] Primary Staff Physician Cardiology 02/11/20 Tomasz Garay MD [address] [place] [address] Cardiology 11/24/21 Center Sales And Service Associate Relationship Specialty Start Date End Date Vargas Mujica PA [address] [place] [address] PCP - General Internal Medicine 09/17/18 Joshua Camacho (Hist) [address] [facility] [place] [address] Specialty Residential Appraiser Cardiology 09/19/18 Edith Taylor MD [address] [place] [address] Specialty Residential Appraiser Gastroenterology 09/19/18 Bonita Naqvi [address] [place] [address] Specialty Residential Appraiser Rheumatology 09/19/18 No, Referral Referring Cardiology 06/26/19 Eric Crooks MD [address] [place] [address] Primary Staff Physician Cardiology 02/11/20 Tomasz Garay MD [address] [facility] [place], [place] [id number] Cardiology 11/24/21 Center Sales And Service Associate Relationship Specialty Start Date End Date Vargas Mujica, JUNE [address] [place] [address] PCP - General Internal Medicine 09/17/18 Joshua Camacho (Hist) [address] [place] [address] Specialty Residential Appraiser Cardiology 09/19/18 Edith Taylor MD Specialty Residential Appraiser Gastroenterology 09/19/18 Bonita Naqvi [address] [place] [address] Specialty Residential Appraiser Rheumatology 09/19/18 No, Referral Referring Cardiology 06/26/19 Eric Crooks MD [address] [place] [address] Primary Staff Physician Cardiology 02/11/20 Tomasz Garay MD [address] [facility] [place] [address] Cardiology 11/24/21 Center Sales And Service Associate Relationship Specialty Start Date End Date Vargas Mujica PA [address] [place], [place] [id number] PCP - General Internal Medicine 09/17/18 Joshua Camacho (Hist) [address] [place], [place] [phone] Specialty Residential Appraiser Cardiology 09/19/18 Edith Taylor MD [address] [place], [place] [phone] Specialty Residential Appraiser Gastroenterology 09/19/18 Bonita Naqvi [address] [place] [address] Specialty Residential Appraiser Rheumatology 09/19/18 No, Referral Referring Cardiology 06/26/19 Eric Crooks MD [address] [place] [address] Primary Staff Physician Cardiology 02/11/20 Tomasz Garay MD [address] [place], [place] 334[address] Cardiology 11/24/21 Broosk Soto MD [address] [facility] [address] [place] [address] Gastroenterology 02/02/22 Brooks Soto MD 1 [facility] [address] [place] [address] Gastroenterology 02/02/22 Hung Emerson MD [address] [place] [address] Pulmonary and Critical Care Medicine 02/02/22 Center Sales And Service Associate Relationship Specialty Start Date End Date Vargas Mujica PA [address] [place] [address] PCP - General Internal Medicine 09/17/18 Joshua Camacho (Hist) [address] [place], [place] [id number] Specialty Residential Appraiser Cardiology 09/19/18 Edith Taylor MD [address] [place] [address] Specialty Residential Appraiser Gastroenterology 09/19/18 Bonita Naqvi [address] [place] [address] Specialty Residential Appraiser Rheumatology 09/19/18 No, Referral Referring Cardiology 06/26/19 Eric Crooks MD [address] [place] [address] Primary Staff Physician Cardiology 02/11/20 Tomasz Garay MD [address] [place], [place] 423061 Cardiology 11/24/21 Brooks Soto MD [address] [facility] [address] [place] [address] Gastroenterology 02/02/22 Brooks Soto MD 1 [facility] [address] [place] [address] Gastroenterology 02/02/22 Hung Emerson MD [address] [place] [address] Pulmonary and Critical Care Medicine 02/02/22 Center Sales And Service Associate Relationship Specialty Start Date End Date Vargas Mujica PA [address] [facility] [place], [place] [id number] PCP - General Internal Medicine 09/17/18 Joshua Camacho (Hist) [address] [place], [place] [id number] Specialty Residential Appraiser Cardiology 09/19/18 Edith Taylor MD [address] [place] [address] Specialty Residential Appraiser Gastroenterology 09/19/18 Donya Bonita Suzi [address] [place], [place] [id number] Specialty Residential Appraiser Rheumatology 09/19/18 No, Referral Referring Cardiology 06/26/19 Eric Crooks MD [address] [place] [address] Primary Staff Physician Cardiology 02/11/20 Tomasz Garay MD [address] [place], [place] [id number] Cardiology 11/24/21 Brooks Soto MD [address] [facility] [address] [place] [address] Gastroenterology 02/02/22 Brooks Soto MD 1 [facility] [address] [place] [address] Gastroenterology 02/02/22 Hung Emerson MD [address] [place] [address] Pulmonary and Critical Care Medicine 02/02/22 Center Sales And Service Associate Relationship Specialty Start Date End Date Vargas Mujica PA [address] [facility] [place] [address] PCP - General Internal Medicine 09/17/18 Joshua Camacho (Hist) [address] [place], [place] [phone] Specialty Residential Appraiser Cardiology 09/19/18 Edith Taylor MD [address] [place] [address] Specialty Residential Appraiser Gastroenterology 09/19/18 Bonita Naqvi [address] [place], [place] 67[address] Specialty Residential Appraiser Rheumatology 09/19/18 No, Referral Referring Cardiology 06/26/19 Eric Crooks MD [address] [place], [place] [phone] Primary Staff Physician Cardiology 02/11/20 Tomasz Garay MD [address] [place], [place] 73[address] Cardiology 11/24/21 Brooks Soto MD [address] [facility] [address] [place], [place] [id number] Gastroenterology 02/02/22 Brooks Soto MD 1 [facility] [address] [place] [address] Gastroenterology 02/02/22 Hung Emerson MD [address] [place] [address] Pulmonary and Critical Care Medicine 02/02/22 Center Sales And Service Associate Relationship Specialty Start Date End Date Vargas Mujica, JUNE [address] [facility] [place] [address] PCP - General Internal Medicine 09/17/18 Joshua Camacho (Hist) [address] [place] [address] Specialty Residential Appraiser Cardiology 09/19/18 Edith Taylor MD [address] [place], [place] [id number] Specialty Residential Appraiser Gastroenterology 09/19/18 Bonita Naqvi [address] [place] [address] Specialty Residential Appraiser Rheumatology 09/19/18 No, Referral Referring Cardiology 06/26/19 Eric Crooks MD [address] [place], [place] [id number] Primary Staff Physician Cardiology 02/11/20 Tomasz Garay MD [address] [place] [address] Cardiology 11/24/21 Brooks Soto MD [address] [facility] [address] [place] [address] Gastroenterology 02/02/22 Brooks Soto MD 1 [facility] [address] [place] [address] Gastroenterology 02/02/22 Hung Emerson MD [address] [place] [address] Pulmonary and Critical Care Medicine 02/02/22 Center Sales And Service Associate Relationship Specialty Start Date End Date Vargas Mujica, JUNE [address] [facility] [place] [address] PCP - General Internal Medicine 09/17/18 Joshua Camacho (Hist) [address] [place], [place] [id number] Specialty Residential Appraiser Cardiology 09/19/18 Edith Taylor MD [address] [place] [address] Specialty Residential Appraiser Gastroenterology 09/19/18 Bonita Naqvi [address] [facility] [place] [place] [address] Specialty Residential Appraiser Rheumatology 09/19/18 No, Referral Referring Cardiology 06/26/19 Eric Crooks MD [address] [place] [address] Primary Staff Physician Cardiology 02/11/20 Tomasz Garay MD [address] [place], [place] 1684[address] Cardiology 11/24/21 Brooks Soto MD [address] [place] [address] Gastroenterology 02/02/22 Brooks Soto MD 1 [facility] [address] [place] [address] Gastroenterology 02/02/22 Hung Emerson MD [address] [place] [address] Pulmonary and Critical Care Medicine 02/02/22 Center Sales And Service Associate Relationship Specialty Start Date End Date Vargas Mujica, JUNE [address] [facility] [place] [address] PCP - General Internal Medicine 09/17/18 Joshua Camacho (Hist) [address] [place], [place] 173101 Specialty Residential Appraiser Cardiology 09/19/18 Edith Taylor MD [address] [place] [address] Specialty Residential Appraiser Gastroenterology 09/19/18 Bonita Naqvi [address] [place], [place] 69[address]71 Specialty Residential Appraiser Rheumatology 09/19/18 No, Referral Referring Cardiology 06/26/19 Eric Crooks MD [address] [place] [address] Primary Staff Physician Cardiology 02/11/20 Tomasz Garay MD [address] [place] [address] Cardiology 11/24/21 Brooks Soto MD [address] [place], [place] [id number] Gastroenterology 02/02/22 Brooks Soto MD 1 [facility] [address] [place] [address] Gastroenterology 02/02/22 Hung Emerson MD [address] [place] [address] Pulmonary and Critical Care Medicine 02/02/22 Center Sales And Service Associate Relationship Specialty Start Date End Date Vargas Mujica, PA [address] [facility] [place] [address] PCP - General Internal Medicine 09/17/18 Joshua Camacho (Hist) [address] [place] [address] Specialty Residential Appraiser Cardiology 09/19/18 Edith Taylor MD [address] [place], [place] [id number] Specialty Residential Appraiser Gastroenterology 09/19/18 Bonita Naqvi [address] [place] [place] [address] Specialty Residential Appraiser Rheumatology 09/19/18 No, Referral Referring Cardiology 06/26/19 Eric Crooks MD [address] [place], [place] [id number] Primary Staff Physician Cardiology 02/11/20 Tomasz Garay MD [address] [facility] [place] [address] Cardiology 11/24/21 Brooks Soto MD [address] [place] [id number] Gastroenterology 02/02/22 Brooks Soto MD [address] [facility] [address] [place] [address] Gastroenterology 02/02/22 Hung Emerson MD [address] [place] [address] Pulmonary and Critical Care Medicine 02/02/22 Center Sales And Service Associate Relationship Specialty Start Date End Date Vargas Mujica, PA [address] [facility] [facility] [place], [place] [id number] PCP - General Internal Medicine 09/17/18 Joshua Camacho (Hist) [address] [facility] [place], [place] [id number] Specialty Residential Appraiser Cardiology 09/19/18 Edith Taylor MD [address] [place] [address] Specialty Residential Appraiser Gastroenterology 09/19/18 Bonita Naqvi [address] [place] [address] Specialty Residential Appraiser Rheumatology 09/19/18 No, Referral Referring Cardiology 06/26/19 Eric Crooks MD [address] [place] [address] Primary Staff Physician Cardiology 02/11/20 Tomasz Garay MD [address] [place] [address] Cardiology 11/24/21 Brooks Soto MD [address] [place] [address] Gastroenterology 02/02/22 Brooks Soto MD 1 [facility] [address] [place] [address] Gastroenterology 02/02/22 Hung Emerson MD [address] [place] [address] Pulmonary and Critical Care Medicine 02/02/22 Center Sales And Service Associate Relationship Specialty Start Date End Date Vargas Mujica, JUNE 2021 [address] [facility] [place] [address] PCP - General Internal Medicine 09/17/18 Joshua Camacho (Hist) [address] [place], [place] [id number] Specialty Residential Appraiser Cardiology 09/19/18 Edith Taylor MD [address] [place] [address] Specialty Residential Appraiser Gastroenterology 09/19/18 Bonita Naqvi [address] [place] [address] Specialty Residential Appraiser Rheumatology 09/19/18 No, Referral Referring Cardiology 06/26/19 Eric Crooks MD [address] [place] [address] Primary Staff Physician Cardiology 02/11/20 Tomasz Garay MD [address] [place] [address] Cardiology 11/24/21 Brooks Soto MD [address] [facility] 140 [place], [place] [id number] Gastroenterology 02/02/22 Brooks Soto MD 1 [facility] [address] [place] [address] Gastroenterology 02/02/22 Hung Emerson MD [address] [place] [address] Pulmonary and Critical Care Medicine 02/02/22 Center Sales And Service Associate Relationship Specialty Start Date End Date Vargas Mujica PA 2021 [address] [facility] [place] [address] PCP - General Internal Medicine 09/17/18 Joshua Camacho (Hist) [address] [place], [place] 953811 Specialty Residential Appraiser Cardiology 09/19/18 Edith Taylor MD [address] [place] [address] Specialty Residential Appraiser Gastroenterology 09/19/18 Bonita Naqvi [address] [place], [place] 709851 Specialty Residential Appraiser Rheumatology 09/19/18 No, Referral Referring Cardiology 06/26/19 Eric Crooks MD [address] [place], [place] [id number] Primary Staff Physician Cardiology 02/11/20 Tomasz Garay MD [address] [facility] [place], [place] [address]3201 Cardiology 11/24/21 Brooks Soto MD [address] [facility] [address] [place] [address] Gastroenterology 02/02/22 Brooks Soto MD 1 [facility] [address] [place] [address] Gastroenterology 02/02/22 Hung Emerson MD [address] [place] [address] Pulmonary and Critical Care Medicine 02/02/22 Center Sales And Service Associate Relationship Specialty Start Date End Date Vargas Mujica PA 2021 [address] [facility] [place] [address] PCP - General Internal Medicine 09/17/18 Joshua Camacho (Hist) [address] [place] [address] Specialty Residential Appraiser Cardiology 09/19/18 Edith Taylor MD [address] [place], [place] [id number] Specialty Residential Appraiser Gastroenterology 09/19/18 Bonita Naqvi [address] [facility] [place] [place] 084021 Specialty Residential Appraiser Rheumatology 09/19/18 No, Referral Referring Cardiology 06/26/19 Eric Crooks MD [address] [place] [address] Primary Staff Physician Cardiology 02/11/20 Tomasz Garay MD [address] [place] [address] Cardiology 11/24/21 Brooks Soto MD [address]302 [facility] [address] [place] [address] Gastroenterology 02/02/22 Brooks Soto MD 1 [facility] [address] [place] [address] Gastroenterology 02/02/22 Hung Emerson MD [address] [place] [address] Pulmonary and Critical Care Medicine 02/02/22 Center Sales And Service Associate Relationship Specialty Start Date End Date Vargas Mujica PA [address] [place] [address] PCP - General Internal Medicine 09/17/18 Joshua Camacho (Hist) [address] [place], [place] [phone] (Fax) Specialty Residential Appraiser Cardiology 09/19/18 Edith Taylor MD [address] [place] [address] Specialty Residential Appraiser Gastroenterology 09/19/18 Bonita Naqvi [address] [place] [address] Specialty Residential Appraiser Rheumatology 09/19/18 No, Referral Referring Cardiology 06/26/19 Eric Crooks MD [address] [place], [place] [phone] Primary Staff Physician Cardiology 02/11/20 Tomasz Garay MD [address] [facility] [place], [place] [phone] Cardiology 11/24/21 Brooks Soto MD [address]302 [facility] [address] [place] [address] Gastroenterology 02/02/22 Brooks Soto MD 1 [facility] [address] [place] [address] Gastroenterology 02/02/22 Hung Emerson MD [address] [place] [address] Pulmonary and Critical Care Medicine 02/02/22 Center Sales And Service Associate Relationship Specialty Start Date End Date Vargas Mujica PA 2021 [address] [facility] [place] [address] PCP - General Internal Medicine 09/17/18 Joshua Camacho (Hist) [address] [facility] [place], [place] [phone] Specialty Residential Appraiser Cardiology 09/19/18 Edith Taylor MD [address] [place] [address] Specialty Residential Appraiser Gastroenterology 09/19/18 Kalpeshedisonia Bonita Suzi [address] [place], [place] 580931 Specialty Residential Appraiser Rheumatology 09/19/18 No, Referral Referring Cardiology 06/26/19 Eric Crooks MD [address] [place] [address] Primary Staff Physician Cardiology 02/11/20 Tomasz Garay MD [address] [place], [place] [phone] Cardiology 11/24/21 Brooks Soto MD [address]302 [facility] [address] [place] [address] Gastroenterology 02/02/22 Brooks Soto MD 1 [facility] [address] [place] [address] Gastroenterology 02/02/22 Hung Emerson MD [address] [place] [address] Pulmonary and Critical Care Medicine 02/02/22 Center Sales And Service Associate Relationship Specialty Start Date End Date Vargas Mujica PA [address] [facility] [place] [address] PCP - General Internal Medicine 09/17/18 Joshua Camacho (Hist) [address] [place], [place] [phone] Specialty Residential Appraiser Cardiology 09/19/18 Edith Taylor MD [address] [place] [address] Specialty Residential Appraiser Gastroenterology 09/19/18 Bonita Naqvi L [address] [place], [place] 485081 Specialty Residential Appraiser Rheumatology 09/19/18 No, Referral Referring Cardiology 06/26/19 Eric Crooks MD [address] [place] [address] Primary Staff Physician Cardiology 02/11/20 Tomasz Garay MD [address] [facility] [address] Cardiology 11/24/21 Brooks Soto MD 4302 [facility] 140 [place], [place] [id number] Gastroenterology 02/02/22 Brooks Soto MD 1 [facility] [address] [place] [address] Gastroenterology 02/02/22 Hung Emerson MD [address] [place] [address] Pulmonary and Critical Care Medicine 02/02/22 Center Sales And Service Associate Relationship Specialty Start Date End Date Vargas Mujica, PA 2021 [address] [facility] [place] [address] PCP - General Internal Medicine 09/17/18 Joshua Camacho (Hist) [address] [facility] [place] [address]341 Specialty Residential Appraiser Cardiology 09/19/18 Edith Taylor MD [address] [place], [place] 1413795 Specialty Residential Appraiser Gastroenterology 09/19/18 Bonita Naqvi L [address] [place] [address] Specialty Residential Appraiser Rheumatology 09/19/18 No, Referral Referring Cardiology 06/26/19 Eric Crooks MD [address] [place] [address] Primary Staff Physician Cardiology 02/11/20 Tomasz Garay MD [address] [place], [place] [phone] Cardiology 11/24/21 Brooks Soto MD [address] [place] [address] Gastroenterology 02/02/22 Brooks Soto MD 1 [facility] [address] [place], [place] [id number] Gastroenterology 02/02/22 Hung Emerson MD [address] [place] [address] Pulmonary and Critical Care Medicine 02/02/22 Center Sales And Service Associate Relationship Specialty Start Date End Date Vargas Mujica, JUNE 2021 [address] [facility] [place] [address] PCP - General Internal Medicine 09/17/18 Joshua Camacho (Hist) [address] [place], [place] [phone] Specialty Residential Appraiser Cardiology 09/19/18 Edith Taylor MD [address] [place] [address] Specialty Residential Appraiser Gastroenterology 09/19/18 Bonita Naqvi [address] [facility] [place] [phone] Specialty Residential Appraiser Rheumatology 09/19/18 No, Referral Referring Cardiology 06/26/19 Eric Crooks MD [address] [place] [address] Primary Staff Physician Cardiology 02/11/20 Tomasz Garay MD [address] [place], [place] [phone] Cardiology 11/24/21 Brooks Soto MD [address]302 [facility] [address] [place] [address] Gastroenterology 02/02/22 Brooks Soto MD 1 [facility] [address] [place] [address] Gastroenterology 02/02/22 Hung Emerosn MD [address] [place] [address] Pulmonary and Critical Care Medicine 02/02/22 Center Sales And Service Associate Relationship Specialty Start Date End Date Vargas Mujica, JUNE 2021 S [facility] [place] [address] PCP - General Internal Medicine 09/17/18 Joshua Camacho (Hist) [address] [place], [place] [phone] Specialty Residential Appraiser Cardiology 09/19/18 Edith Taylor MD [address] [place] [address] Specialty Residential Appraiser Gastroenterology 09/19/18 Bonita Naqvi [address] [place] [address] Specialty Residential Appraiser Rheumatology 09/19/18 No, Referral Referring Cardiology 06/26/19 Eric Crooks MD [address] [place] [address] Primary Staff Physician Cardiology 02/11/20 Tomasz Garay MD [address] [place], [place] [phone] Cardiology 11/24/21 Brooks Soto MD [address] [place], [place] [id number] Gastroenterology 02/02/22 Brooks Soto MD 1 [facility] [address] [place] [address] Gastroenterology 02/02/22 Hung Emerson MD [address] [place] [address] Pulmonary and Critical Care Medicine 02/02/22 Center Sales And Service Associate Relationship Specialty Start Date End Date Vargas Mujica PA [address] [facility] [place] [address] PCP - General Internal Medicine 09/17/18 Joshua Camacho (Hist) [address] [place] [address] Specialty Residential Appraiser Cardiology 09/19/18 Edith Taylor MD [address] [place] [address] Specialty Residential Appraiser Gastroenterology 09/19/18 Bonita Naqvi [address] [facility] [place] [address] Specialty Residential Appraiser Rheumatology 09/19/18 No, Referral Referring Cardiology 06/26/19 Eric Crooks MD [address] [place] [address] Primary Staff Physician Cardiology 02/11/20 Tomasz Garay MD [address] [place] [address] Cardiology 11/24/21 Brooks Soto MD [address] [place], [place] [id number] Gastroenterology 02/02/22 Brooks Soto MD 1 [facility] [address] [place], [place] [id number] Gastroenterology 02/02/22 Hung Emerson MD [address] [place] [address] Pulmonary and Critical Care Medicine 02/02/22 Center Sales And Service Associate Relationship Specialty Start Date End Date Vargas Mujica PA 2021 [address] [facility] [place] [address] PCP - General Internal Medicine 09/17/18 Joshua Camacho (Hist) [address] [facility] [place], [place] [phone] Specialty Residential Appraiser Cardiology 09/19/18 Edith Taylor MD [address] [place] [address] Specialty Residential Appraiser Gastroenterology 09/19/18 Bonita Naqvi [address] [place], [place] 311521 Specialty Residential Appraiser Rheumatology 09/19/18 No, Referral Referring Cardiology 06/26/19 Eric Crooks MD [address] [place] [address] Primary Staff Physician Cardiology 02/11/20 Tomasz Garay MD [address] [facility] [place] [address] Cardiology 11/24/21 Brooks Soto MD [address]302 [facility] [address] [place], [place] [id number] Gastroenterology 02/02/22 Brooks Soto MD [address] [facility] [address] [facility] [address] [place], [place] [phone] Gastroenterology 02/02/22 Hung Emerson MD [address] [place] [address] Pulmonary and Critical Care Medicine 02/02/22 Center Sales And Service Associate Relationship Specialty Start Date End Date Vargas Mujica, JUNE 2021 S [facility] [place] [address] PCP - General Internal Medicine 09/17/18 Joshua Camacho (Hist) [address] [place], [place] [phone] Specialty Residential Appraiser Cardiology 09/19/18 Edith Taylor MD [address] [place], [place] 2683295 Specialty Residential Appraiser Gastroenterology 09/19/18 Bonita Naqvi [address] [place] [address] Specialty Residential Appraiser Rheumatology 09/19/18 No, Referral Referring Cardiology 06/26/19 Eric Crooks MD [address] [place] [address] Primary Staff Physician Cardiology 02/11/20 Tomasz Garay MD [address] [facility] [place] [address] Cardiology 11/24/21 Brooks oSto MD [address] [facility] 140 [place], [place] [id number] Gastroenterology 02/02/22 Brooks Soto MD 1 [facility] [address] [place] [address] Gastroenterology 02/02/22 Hung Emerson MD [address] [place] [address] Pulmonary and Critical Care Medicine 02/02/22 Center Sales And Service Associate Relationship Specialty Start Date End Date Vargas Mujica PA [address] [place], [place] [id number] PCP - General Internal Medicine 09/17/18 Joshua Camacho [address] [place], [place] 692031 Specialty Residential Appraiser Cardiology 09/19/18 Edith Taylor MD [address] [place], [place] [phone] Specialty Residential Appraiser Gastroenterology 09/19/18 Bonita Naqvi [address] [place] [address] Specialty Residential Appraiser Rheumatology 09/19/18 No, Referral Referring Cardiology 06/26/19 Eric Crooks MD [address] [place], [place] 7680895 Primary Staff Physician Cardiology 02/11/20 Tomasz Garay MD [address] [facility] [address] Cardiology 11/24/21 Brooks Soto MD [address] [place] [address] Gastroenterology 02/02/22 Brooks Soto MD 1 [facility] [address] [place] [address] Gastroenterology 02/02/22 Hung Emerson MD [address] [place] [address] Pulmonary and Critical Care Medicine 02/02/22 Center Sales And Service Associate Relationship Specialty Start Date End Date Vargas Mujica PA [address] [place], [place] [id number] PCP - General Internal Medicine 09/17/18 Joshua Camacho [address] [facility] [place] [place] [phone] Specialty Residential Appraiser Cardiology 09/19/18 Edith Taylor MD [address] [place], [place] 8125195 Specialty Residential Appraiser Gastroenterology 09/19/18 Bonita Naqvi [address] [place] [address] Specialty Residential Appraiser Rheumatology 09/19/18 No, Referral Referring Cardiology 06/26/19 Eric Crooks MD [address] [place], [place] 9192895 Primary Staff Physician Cardiology 02/11/20 Tomasz Garay MD [address] E [facility] [place] [address] Cardiology 11/24/21 Brooks Soto MD [address]302 [facility] [address] [place] [address] Gastroenterology 02/02/22 Brooks Soto MD 1 [facility] [address] [place] [address] Gastroenterology 02/02/22 Hung Emerson MD [address] [place] [address] Pulmonary and Critical Care Medicine 02/02/22 Center Sales And Service Associate Relationship Specialty Start Date End Date Vargas Mujica, JUNE 2021 [address] [facility] [place] [address] PCP - General Internal Medicine 09/17/18 Joshua Camacho [address] [facility] [place], [place] [id number] Specialty Residential Appraiser Cardiology 09/19/18 Edith Taylor MD [address] [place] [address] Specialty Residential Appraiser Gastroenterology 09/19/18 Bonita Naqvi [address] [place], [place] 476[address] Specialty Residential Appraiser Rheumatology 09/19/18 No, Referral Referring Cardiology 06/26/19 Eric Crooks MD [address] [place] [address] Primary Staff Physician Cardiology 02/11/20 Tomasz Garay MD [address] [place], [place] [id number] Cardiology 11/24/21 Brooks Soto MD [address] [place], [place] [id number] Gastroenterology 02/02/22 Brooks Soto MD 1 [facility] [address] [place] [address] Gastroenterology 02/02/22 Hung Emerson MD [address] [place] [address] Pulmonary and Critical Care Medicine 02/02/22 Center Sales And Service Associate Relationship Specialty Start Date End Date Vargas Mujica PA [address] [facility] [place] [address] PCP - General Internal Medicine 09/17/18 Joshua Camacho [address] [place], [place] [phone] Specialty Residential Appraiser Cardiology 09/19/18 Edith Taylor MD [address] [place] [address] Specialty Residential Appraiser Gastroenterology 09/19/18 Bonita Naqvi [address] [place], [place] 233731 Specialty Residential Appraiser Rheumatology 09/19/18 No, Referral Referring Cardiology 06/26/19 Eric Crooks MD [address] [place] [address] Primary Staff Physician Cardiology 02/11/20 Tomasz Garay MD [address] [place], [place] 560291 Cardiology 11/24/21 Brooks Soto MD 4302 [facility] 140 [place], [place] [id number] Gastroenterology 02/02/22 Brooks Soto MD 1 [facility] [address] [place] [address] Gastroenterology 02/02/22 Hung Emerson MD [address] [place] [address] Pulmonary and Critical Care Medicine 02/02/22 Team Status: Active Member Role Status Dates JUNE Graham Family Provider Active JUNE Graham Primary Care Provider Active Team Status: Inactive Member Role Status Dates JUNE Graham Primary Care Provider, Referr ing Provider Active Osvaldo WATKINS PA Attending Provider Active Team Status: Inactive Member Role Status Dates JUNE Graham Primary Care Provider Active Dr. Cliff Espinoza DO Attending Provider, Emergency Provide r Active Team Status: Inactive Member Role Status Dates JUNE Graham Primary Care Provider Active Dr. Aftab Sutton MD Emergency Provider Active Center Sales And Service Associate Relationship Specialty Start Date End Date Vargas Mujica PA 2021 [address] [facility] [place] [address] PCP - General Internal Medicine 09/17/18 Joshua Camacho [address] [place], [place] [phone] Specialty Residential Appraiser Cardiology 09/19/18 Edith Taylor MD [address] [place], [place] 4940395 Specialty Residential Appraiser Gastroenterology 09/19/18 Bonita Naqvi [address] [place] [address] Specialty Residential Appraiser Rheumatology 09/19/18 No, Referral Referring Cardiology 06/26/19 Eric Crooks MD [address] [place] [address] Primary Staff Physician Cardiology 02/11/20 Tomasz Garay MD [address] [place], [place] 564191 Cardiology 11/24/21 Brooks Soto MD [address]302 [facility] [address] [place] [address] Gastroenterology 02/02/22 Brooks Soto MD 1 [facility] [address] [place] [address] Gastroenterology 02/02/22 Hung Emerson MD [address] [place] [address] Pulmonary and Critical Care Medicine 02/02/22 Team Status: Inactive Member Role Status Dates JUNE Graham Primary Care Provider Active Dr. Aftab Sutton MD Attending Provider, Emergency Pr ovider Active Team Status: Inactive Member Role Status Dates JUNE Graham Primary Care Provider Active Dr. Garry Conn , DO Emergency Provider Active Center Sales And Service Associate Relationship Specialty Start Date End Date Vargas Mujica PA 2021 [facility] [place] [address] PCP - General Internal Medicine 09/17/18 Joshua Camacho [address] [place], [place] [phone] Specialty Residential Appraiser Cardiology 09/19/18 Edith Taylor MD [address] [place], [place] [phone] Specialty Residential Appraiser Gastroenterology 09/19/18 Bonita Naqvi [address] [place] [address] Specialty Residential Appraiser Rheumatology 09/19/18 No, Referral Referring Cardiology 06/26/19 Eric Crooks MD [address] [place], [place] [phone] Primary Staff Physician Cardiology 02/11/20 Tomasz Garay MD [address] [facility] [place], [place] 371641 Cardiology 11/24/21 Brooks Soto MD 4302 [facility] [address] [place] [address] Gastroenterology 02/02/22 Brooks Soto MD 1 [facility] [address] [place] [address] Gastroenterology 02/02/22 Hung Emerson MD [address] [place] [address] Pulmonary and Critical Care Medicine 02/02/22 Center Sales And Service Associate Relationship Specialty Start Date End Date Vargas Mujica PA-C [address] [facility] [place] [address] PCP - General 04/30/19 Center Sales And Service Associate Relationship Specialty Start Date End Date Vargas Mujica PA [address] [facility] [place] [address] PCP - General Internal Medicine 09/17/18 Joshua Camacho [address] [place] [address] Specialty Residential Appraiser Cardiology 09/19/18 Edith Taylor MD [address] [place], [place] [phone] Specialty Residential Appraiser Gastroenterology 09/19/18 Bonita Naqvi [address] [place] [address] Specialty Residential Appraiser Rheumatology 09/19/18 No, Referral Referring Cardiology 06/26/19 Eric Crooks MD [address] [place], [place] 7738195 Primary Staff Physician Cardiology 02/11/20 Tomasz Garay MD [address] [place], [place] 981631 Cardiology 11/24/21 Brooks Soto MD 4302 [facility] [address] [place] [address] Gastroenterology 02/02/22 Brooks Soto MD 1 [facility] [address] [place] [address] Gastroenterology 02/02/22 Hung Emerson MD [address] [place] [address] Pulmonary and Critical Care Medicine 02/02/22 Center Sales And Service Associate Relationship Specialty Start Date End Date Vargas Mujica PA-C [address] [place] [address] PCP - General 04/30/19 Vargas Mujica PA-C [address] [facility] [place] [address] PCP - MMO ACO PCP 02/25/23 Team Status: Inactive Member Role Status Dates JUNE Graham Primary Care Provider Active Dr. Anam Garcia MD Attending Provider, Emergency Provi scott Active Center Sales And Service Associate Relationship Specialty Start Date End Date Vargas Mujica PA [address] [facility] [place] [address] PCP - General Internal Medicine 09/17/18 Joshua Camacho [address] [place], [place] 273051 Specialty Residential Appraiser Cardiology 09/19/18 Edith Taylor MD [address] [place] [phone] Specialty Residential Appraiser Gastroenterology 09/19/18 Bonita Naqvi [address] [place] [address] Specialty Residential Appraiser Rheumatology 09/19/18 No, Referral Referring Cardiology 06/26/19 Eric Crooks MD [address] [place] [id number] Primary Staff Physician Cardiology 02/11/20 Tomasz Garay MD [address] [place], [place] 571161 Cardiology 11/24/21 Brooks Soto MD [address] [address] Gastroenterology 02/02/22 Brooks Soto MD 1 [facility] [address] [place] [address] Gastroenterology 02/02/22 Hung Emerson MD [address] [place] [address] Pulmonary and Critical Care Medicine 02/02/22 Center Sales And Service Associate Relationship Specialty Start Date End Date Vargas Mujica PA [address] [facility] [facility] [place], [place] 2007605 PCP - General Internal Medicine 09/17/18 Joshua Camacho [address] [place], [place] [id number] Specialty Residential Appraiser Cardiology 09/19/18 Edith Taylor MD [address] [place], [place] [phone] Specialty Residential Appraiser Gastroenterology 09/19/18 Bonita Naqvi [address] [facility] [place] [address] Specialty Residential Appraiser Rheumatology 09/19/18 No, Referral Referring Cardiology 06/26/19 Eric Crooks MD [address] [place], [place] [phone] Primary Staff Physician Cardiology 02/11/20 Tomasz Garay MD [address] [place] [address] Cardiology 11/24/21 Brooks Soto MD [address] [address] Gastroenterology 02/02/22 Brooks Soto MD [address] [facility] [address] unm [facility] [facility] [address] [place] [address] Gastroenterology 02/02/22 Hung Emerson MD [address] [place] [address] Pulmonary and Critical Care Medicine 02/02/22 Center Sales And Service Associate Relationship Specialty Start Date End Date Vargas Mujica PA [address] [facility] [place] [address] PCP - General Internal Medicine 09/17/18 Joshua Camacho [address] [place], [place] [address] Specialty Residential Appraiser Cardiology 09/19/18 Edith Taylor MD [address] [place], [place] [id number] Specialty Residential Appraiser Gastroenterology 09/19/18 Bonita Naqvi [address] [place] [address] Specialty Residential Appraiser Rheumatology 09/19/18 No, Referral Referring Cardiology 06/26/19 Eric Crooks MD [address] [facility] [place], [place] [id number] Primary Staff Physician Cardiology 02/11/20 Tomasz Garay MD [address] [place] [address] Cardiology 11/24/21 Brooks Soto MD [address] [place] [address] Gastroenterology 02/02/22 Brooks Soto MD 1 [facility] [address] [place] [address] Gastroenterology 02/02/22 Hung Emerson MD [address] [place] [address] Pulmonary and Critical Care Medicine 02/02/22 Center Sales And Service Associate Relationship Specialty Start Date End Date Vargas Mujica PA [address] [facility] [place] [address] PCP - General Internal Medicine 09/17/18 Joshua Camacho [address] [place] [address] Specialty Residential Appraiser Cardiology 09/19/18 Edith Taylor MD [address] [place] [address] Specialty Residential Appraiser Gastroenterology 09/19/18 Bonita Naqvi [address] [place] [address] Specialty Residential Appraiser Rheumatology 09/19/18 No, Referral Referring Cardiology 06/26/19 Eric Crooks MD [address] [place] [address] Primary Staff Physician Cardiology 02/11/20 Tomasz Garay MD [address] [place], [place] [address] Cardiology 11/24/21 Brooks Soto MD [address] [facility] [address] [place] [address] Gastroenterology 02/02/22 Brooks Soto MD 1 [facility] [address] [place] [address] Gastroenterology 02/02/22 Hung Emerson MD [address] [place] [address] Pulmonary and Critical Care Medicine 02/02/22 Center Sales And Service Associate Relationship Specialty Start Date End Date Vargas Mujica PA [address] [place] [address] PCP - General Internal Medicine 09/17/18 Joshua Camacho [address] [place] [address] Specialty Residential Appraiser Cardiology 09/19/18 Edith Taylor MD [address] [place] [address] Specialty Residential Appraiser Gastroenterology 09/19/18 Bonita Naqvi [address] [facility] [place] [address] Specialty Residential Appraiser Rheumatology 09/19/18 No, Referral Referring Cardiology 06/26/19 Eric Crooks MD [address] [place] [address] Primary Staff Physician Cardiology 02/11/20 Tomasz Garay MD [address] [facility] [address] Cardiology 11/24/21 Brooks Soto MD [address] [facility] [address] [place] [address] Gastroenterology 02/02/22 Brooks Soto MD 1 [facility] [address] [place] [address] Gastroenterology 02/02/22 Hung Emerson MD [address] [place] [address] Pulmonary and Critical Care Medicine 02/02/22 Center Sales And Service Associate Relationship Specialty Start Date End Date Vargas Mujica PA [address] [place] [address] PCP - General Internal Medicine 09/17/18 Joshua Camacho [address] [place], [place] [address] Specialty Residential Appraiser Cardiology 09/19/18 Edith Taylor MD [address] [place] [address] Specialty Residential Appraiser Gastroenterology 09/19/18 Bonita Naqvi [address] [place] [address] Specialty Residential Appraiser Rheumatology 09/19/18 No, Referral Referring Cardiology 06/26/19 Eric Crooks MD [address] [place] [address] Primary Staff Physician Cardiology 02/11/20 Tomasz Garay MD [address] [facility] [address] Cardiology 11/24/21 Brooks Soto MD [address] [facility] [address] [place] [address] Gastroenterology 02/02/22 Brooks Soto MD 1 [facility] [address] [place] [address] Gastroenterology 02/02/22 Hung Emerson MD [address] [place] [address] Pulmonary and Critical Care Medicine 02/02/22 Center Sales And Service Associate Relationship Specialty Start Date End Date Vargas Mujica PA [address] [facility] [place] [address] PCP - General Internal Medicine 09/17/18 Joshua Camacho [address] [place], [place] [address] Specialty Residential Appraiser Cardiology 09/19/18 Edith Taylor MD [address] [place] [address] Specialty Residential Appraiser Gastroenterology 09/19/18 Bonita Naqvi [address] [place], [place] [address] Specialty Residential Appraiser Rheumatology 09/19/18 No, Referral Referring Cardiology 06/26/19 Eric Crooks MD [address] [place] [address] Primary Staff Physician Cardiology 02/11/20 Center Sales And Service Associate Relationship Specialty Start Date End Date Vargas Mujica PA [address] [place] [address] PCP - General Internal Medicine 09/17/18 Joshua Camacho [address] [place] [address] Specialty Residential Appraiser Cardiology 09/19/18 Edith Taylor MD [address] [place], [place] [id number] Specialty Residential Appraiser Gastroenterology 09/19/18 Bonita Naqvi [address] [place] [address] Specialty Residential Appraiser Rheumatology 09/19/18 No, Referral Referring Cardiology 06/26/19 Eric Crooks MD [address] [place], [place] [id number] Primary Staff Physician Cardiology 02/11/20 Tomasz Garay MD [address] [place], [place] [address] Cardiology 11/24/21 Brooks Soto MD [address] [facility] [address] [place] [address] Gastroenterology 02/02/22 Brooks Soto MD 1 [facility] [address] [place] [address] Gastroenterology 02/02/22 Hung Emerson MD [address] [place] [address] Pulmonary and Critical Care Medicine 02/02/22 Center Sales And Service Associate Relationship Specialty Start Date End Date Vargas Mujica PA [address] [place] [address] PCP - General Internal Medicine 09/17/18 Joshua Camacho [address] [place], [place] [address] Specialty Residential Appraiser Cardiology 09/19/18 Edith Taylor MD [address] [place] [address] Specialty Residential Appraiser Gastroenterology 09/19/18 Bonita Naqvi [address] [place] [address] Specialty Residential Appraiser Rheumatology 09/19/18 No, Referral Referring Cardiology 06/26/19 Eric Crooks MD [address] [place] [address] Primary Staff Physician Cardiology 02/11/20 Tomasz Garay MD [address] [place], [place] [address] Cardiology 11/24/21 Brooks Soto MD [address] [facility] [address] [place] [address] Gastroenterology 02/02/22 Brooks Soto MD 1 [facility] [address] [place] [address] Gastroenterology 02/02/22 Hung Emerson MD [address] [place] [address] Pulmonary and Critical Care Medicine 02/02/22 Center Sales And Service Associate Relationship Specialty Start Date End Date Vargas Mujica PA-C [address] [place] [address] PCP - General 04/30/19 Vargas Mujica PA-C [address] [place] [address] PCP - MMO ACO PCP 02/25/23 Center Sales And Service Associate Relationship Specialty Start Date End Date Vargas Mujica PA-C [address] [place] [address] PCP - General 04/30/19 Vargas Mujica PA-C [address] [place] [address] PCP - MMO ACO PCP 02/25/23 Center Sales And Service Associate Relationship Specialty Start Date End Date Vargas Mujica PA-C [address] [place] [address] PCP - General 04/30/19 Vargas Mujica PA-C [address] [place] [address] PCP - MMO ACO PCP 02/25/23 Center Sales And Service Associate Relationship Specialty Start Date End Date Vargas Mujica PA-C [address] [place] [address] PCP - General 04/30/19 Vargas Mujica PA-C [address] [place] [address] PCP - MMO ACO PCP 02/25/23 Center Sales And Service Associate Relationship Specialty Start Date End Date Vargas Mujica PA [address] [facility] [place] [address] PCP - General Internal Medicine 09/17/18 Joshua Camacho MD [address] [facility] [place], [place] [id number] Specialty Residential Appraiser Cardiology 09/19/18 Edith Taylor MD [address] [place], [place] [id number] Specialty Residential Appraiser Gastroenterology 09/19/18 Bonita Naqvi [address] [place] [address] Specialty Residential Appraiser Rheumatology 09/19/18 No, Referral Referring Cardiology 06/26/19 Eric Crooks MD [address] [place], [place] [id number] Primary Staff Physician Cardiology 02/11/20 Tomasz Garay MD [address] [facility] [address] Cardiology 11/24/21 Brooks Soto MD [address] [address] Gastroenterology 02/02/22 Brooks Soto MD [address] [address] Gastroenterology 02/02/22 Hung Emerson MD [address] [place] [address] Pulmonary and Critical Care Medicine 02/02/22 Center Sales And Service Associate Relationship Specialty Start Date End Date Vargas Mujica PA [address] [place] [address] PCP - General Internal Medicine 09/17/18 Joshua Camacho MD [address] [place], [place] [id number] Specialty Residential Appraiser Cardiology 09/19/18 Edith Taylor MD [address] [place], [place] [id number] Specialty Residential Appraiser Gastroenterology 09/19/18 Bonita Naqvi [address] [place], [place] [id number] Specialty Residential Appraiser Rheumatology 09/19/18 No, Referral Referring Cardiology 06/26/19 Eric Crooks MD [address] [place], [place] [id number] Primary Staff Physician Cardiology 02/11/20 Tomasz Garay MD [address] [place], [place] [address] Cardiology 11/24/21 Brooks Soto MD [address] [facility] [address] [place] [address] Gastroenterology 02/02/22 Brooks Soto MD [address] [place] [address] Gastroenterology 02/02/22 Hung Emerson MD [address] [place] [address] Pulmonary and Critical Care Medicine 02/02/22 Center Sales And Service Associate Relationship Specialty Start Date End Date Vargas Mujica PA [address] [place] [address] PCP - General Internal Medicine 09/17/18 Joshua Camacho MD [address] [place] [address] Specialty Residential Appraiser Cardiology 09/19/18 Edith Taylor MD [address] [place] [address] Specialty Residential Appraiser Gastroenterology 09/19/18 Bonita Naqvi [address] [place] [address] Specialty Residential Appraiser Rheumatology 09/19/18 No, Referral Referring Cardiology 06/26/19 Eric Crooks MD [address] [place] [address] Primary Staff Physician Cardiology 02/11/20 Tomasz Garay MD [address] [place], [place] [address] Cardiology 11/24/21 Brooks Soto MD [address] [facility] [address] [place] [address] Gastroenterology 02/02/22 Brooks Soto MD [facility] [address] [place] [address] Gastroenterology 02/02/22 Hung Emerson MD [address] [place] [address] Pulmonary and Critical Care Medicine 02/02/22 Center Sales And Service Associate Relationship Specialty Start Date End Date Vargas Mujica PA [address] [place] [address] PCP - General Internal Medicine 09/17/18 Joshua Camacho MD [address] [place], [place] [address] Specialty Residential Appraiser Cardiology 09/19/18 Edith Taylor MD [address] [place], [place] [phone] Specialty Residential Appraiser Gastroenterology 09/19/18 Bonita Naqvi [address] [place] [address] Specialty Residential Appraiser Rheumatology 09/19/18 No, Referral Referring Cardiology 06/26/19 Eric Crooks MD [address] [place], [place] [id number] Primary Staff Physician Cardiology 02/11/20 Tomasz Garay MD [address] [place] [address] Cardiology 11/24/21 Brooks Soto MD [facility] [address] [address] Gastroenterology 02/02/22 Brooks Soto MD [address] [facility] [address] [place], [place] [id number] Gastroenterology 02/02/22 Hung Emerson MD [address] [place] [address] Pulmonary and Critical Care Medicine 02/02/22 Goals (unrecognized section and content) Goals may be documented in a n alternate sectionGoals may be documented in an alternate sectionGoals may be documented in an alternate section No data available for this sectionGoals may be documented in an alternate section FOR RECORDS PERTAINING TO PATIENTS WHO ARE OR HAVE BEEN ENROLLED IN A CHEMICAL DEPENDENCY/SUBSTANCEABUSE PROGRAM, SOME INFORMATION MAY BE OMITTED. This clinical summary was aggregated from multiple sources. Caution should be exercised in using it in the provision of clinical care. This summary normalizes information from multiple sources, and as a consequence, information in this document may materially change the coding, format and clinical context of patient data. In addition, data may be omitted in some cases. CLINICAL DECISIONS SHOULD BE BASED ON THE PRIMARY CLINICAL RECORDS. [employer] provides no warranty or guarantee of the accuracy or completeness of information in this document.
--- NOTE | 2025-02-20 16:18 | CA.SCORE ---
Calcium Scoring Date of Study:: 02/20/25 Indications Indications: Family history Coronary Calcium Scoring: High-resolution Computed Tomographic imaging of the chest was performed on [02/20/2025], with particular attention paid to the coronary arteries. Images from the examination were analyzed for the presence and extent of coronary artery calcification , using coronary calcium quantification software. The patient tolerated the procedure well and there were no complications. The results of the coronary calcification analysis are provided below. Findings Coronary Artery Left Main (LM): 0 Left Anterior Descending (LAD): 0 Left Circumflex (LCX): 0 Right Coronary Artery (RCA): 1.79 Total Agatston Score: 1.79 Percentile Rankin-90% Calcium Scoring Interpretation: Different methods to categorize the overall amount of coronary plaque. Overall amount CAC SIS Visual of coronary plaque P1 Mild -100 <2 1-2 vessels with mild amount of plaque P2 Moderate 101-300 3-4 1-2 vessels with moderate amount, 3 vessels with mild amount of plaque P3 Severe 301-999 5-7 3 vessels with moderate amount, 1 vessel with severe amount of plaque P4 Extensive >1000 >8 2-3 vessels with severe amount of plaque Conclusion: Minimal atherosclerotic plaque
== END 2025-02-20 23:59 | disposition home or self-care (01) ==
PROVIDERS: PCP Physician Assistant Medical; Referring Provider Nurse Practitioner Adult Health; Visit Provider Nurse Practitioner Adult Health
DX: R00.1 Bradycardia, unspecified (principal); Z13.6 Encounter for screening for cardiovascular disorders; Z90.49 Acquired absence of other specified parts of digestive tract
CPT/HCPCS: 75571; 76380

== ENCOUNTER → 2025-05-08 | Outpatient (CLI) | payer OTHER, SELFPAY ==
--- NOTE | 2025-05-08 07:21 | BI_ITS ---
EXAM: SCRN MAMM (CAD)W/LILIANA BILAT DATE: 05/08/2025 CLINICAL HISTORY: F, Age 39 y/o , SCREENING No family history. TECHNIQUE: Procedure Code: [id number] Modality: MG Procedure: SCRN MAMM (CAD)W/LILIANA BILAT COMPARISON: Prior exam(s) dated March 29, 2024.. FINDINGS: TISSUE DENSITY: The breasts are almost entirely fatty. Bilateral Breast Mammographic Findings: No significant masses, calcifications or other abnormalities are identified. Stable 5 mm well-defined nodule in the slightly upper lateral aspect of the right breast. This was demonstrated to be a small intramammary lymph node on prior sonogram. No suspicious masses, areas of developing architectural distortion, or suspicious calcifications. There has been no significant interval change. BI/SCRN MAMM (CAD)W/LILIANA BILAT IMPRESSION: Stable bilateral screening mammogram. OVERALL FINAL ASSESSMENT BI-RADS 2: BENIGN RECOMMENDATION: Routine annual follow-up in 1 Year A letter with findings and recommendations will be mailed to the patient. Reading Location: [facility]
--- OUTSIDE RECORDS SUMMARY | 2025-05-08 07:28 | XMS RPT_ITS | CCD ---
Author Organization [facility] Care Team Providers Care Cloth Bleaching Range Tender Name Role Phone EDITH MURRAY Admitting Unavailable EDITH MURRAY Attending Unavailable JOSHUA CAMACHO Referring Unavailable IMCA Primary Care Unavailable Redd, Aasef Unavailable Unavailable Guanako Vargas Unavailable Unavailable Guanako Vargas B Unavailable Unavailable Shikary, Abbas K Unavailable Unavailable Basali, Ayman H Unavailable Unavailable Zarrabi, Josselyn Unavailable Unavailable Guanako, Vargas Unavailable Unavailable Guanako Vargas B Unavailable Unavailable Redd, Aasef Unavailable Unavailable Zarrabi, Josselyn Unavailable Unavailable [place], Vargas B Unavailable Unavailable Unavailable Unavailable Unavailable Vargas Wei Primary Care Provider Joshua Camacho (Hist) Unavailable Edith Taylor MD Unavailable [phone] Bonita Naqvi Unavailable No, Referral Unavailable Unavailable Eric Crooks MD Unavailable Tomasz Garay MD Unavailable Edith Taylor MD Unavailable Unavailable Brooks Soto MD Unavailable Brooks Soto MD Unavailable [phone] Hung Emerson MD Unavailable Vargas Wei Primary Care Provider Joshua Camacho (Hist) Unavailable O'Carrizales MD, Edith S Unavailable Radha Naqvima Suzi Unavailable No, Referral Unavailable Unavailable Eric Crooks MD Unavailable Claudy COPELAND, Tomasz Davidson Unavailable Brooks Soto MD Unavailable [phone] Brooks Soto MD Unavailable Ki COPELAND, Hung Unavailable [place], Bonita L Unavailable Claudy COPELAND, Tomasz Davidson Unavailable Unavailable Unavailable Vargas Wei Primary Care Provider Joshua Camacho (Hist) Unavailable Brandon COPELAND, Edith S Unavailable [phone] Donya, Bonita L Unavailable No, Referral Unavailable Unavailable Eric Crooks MD Unavailable Claudy COPELAND, Tomasz Davidson Unavailable Brooks Soto MD Unavailable Brooks Soto MD Unavailable Ki COPELAND, Hung Unavailable Joshua Camacho Unavailable Guanako, . Vargas Browne Referring Unav ailable Guanako, Ms. Vargas Browne Primary Care Unav ailable Guanako, MsIglesia Browne Attending Unav ailable Osbaldo, Dr. Arcos Attending Unavailable Osbaldo, Dr. Arcos Referring Unavailable [place], Ms. Vargas Browne Primary Care Unav ailable [place], MsIglesia Browne Referring Unav ailable Guanako, Ms. Vargas Browne Primary Care Unav ailable Guanako, MsIglesia Browne Attending Unav ailable Grassick, MsIglesia Rios Attending Unavail able [place], MsIglesia Rios Referring Unavail able Guanako, Ms. Vargas Browne Primary Care Unav ailable [place], Ms. Vragas Hollie Attending Unav ailable [place], Ms. Vargas Browne Referring Unav ailable Guanako, Ms. Vargas Browne Primary Care Unav ailable Guanako, Ms. Vargas Browne Referring Unav ailable [place], Ms. Vargas Browne Primary Care Unav ailable Guanako, Ms. Vargas Browne Attending Unav ailable Guanako, Ms. Vargas Browne Attending Unav ailable Guanako, Ms. Vargas Browne Referring Unav ailable [place], Ms. Vargas Browne Primary Care Unav ailable [place] JUNE WATKINS Primary Care Provider JUNE Wei Referring Provider [phone] JUNE Emanuel Attending Provider [phone] Vargas Mujica PA-C B Primary Care Provider Guanako, . Vargas Browne Attending Unav ailable Guanako, Ms. Vargas Browne Primary Care Unav ailable GUANAKO VARGAS GAN Primary Care Physician [phone] Vargas Mujica PA-C Unavailable Vargas Wei Primary Care Provider [phone] Joshua Camacho Unavailable Brandon COPELAND, Edith Helton Unavailable Bonita Naqvi Unavailable Valeriy COPELAND, Eric Jules Unavailable Vargas Wei B Primary Care Provider Vargas Wei Primary Care Provider VARGAS MUJICA B Referring Unavailable GUANAKO VARGAS B Primary Care Unavailable GUANAKO, VARGAS B Primary Care Unavailable GUANAKO, VARGAS B Primary Care Unavailable [place] PA-C, Vargas B Primary Care Provider Guanako HENRYC Vargas B Unavailable Joshua Camacho MD Unavailable CHLOÉ TIPTNO Referring Unavailable [facility] Care Un[facility]aila ble [facility] CRISTOBAL DELFIN Referring Unavailable [facility] Care Unavaila ble GUANAKO, [facility] Care Unavaila ble CARIDAD MARMOLEJOICA E Attending Unavailable [facility] Care Unavaila ble SELF Referring Unavailable CUT OFF, VARGAS B Attending Unavailable [facility] B Primary Care Unavailable CUT OFF, VARGAS B Attending Unavailable [facility] B Primary Care Unavailable [facility] Unavailabl Jl Ferreira Referring Unavailable Jl June Attending Unavailable Guanako PA, [facility] Unavailabl e Fritz, Lali Referring Unavailable Fritz, Lali Attending Unavailable Sanam Lindsay Attending Unavailable Guanako PA, [facility] Unavailabl e [place] PA, [facility] Unavailabl e Guanako PA, [place] Referring Unavailabl e [place], [place] Attending Unavailable [place] PA, [facility] Unavailabl e Sanam Lindsay Attending Unavailable [place] PA, [facility] Unavailabl e [place] PA, [place] Referring Unavailabl e Benicia, Lali Attending Unavailable [place] [facility] Unavailabl e Sanam Lindsay Attending Unavailable Guanako PA, [facility] Unavailabl e [place] PA, Vargas Referring Unavailabl e [place], [place] Attending Unavailable [place] [facility] Unavailabl e Sanam Lindsay Attending Unavailable [place] PA, [facility] Unavailabl e Sanam Lindsay Attending Unavailable Guanako PA, [facility] Unavailabl e [place], [place] Attending Unavailable Benicia, Lali Referring Unavailable Guanako PA, [facility] Care Unavailabl e [place], Rafael Attending Unavailable JALEEL, JOHANNY Referring Unavailable JALEEL, JOHANNY Consulting Unavailable [place] PA, Vargas Attending Unavailabl e Guanako PA, [facility] Unavailabl e Guanako PA, [place] Referring Unavailabl e Guanako PA, [place] Primary Care Unavailabl e JALEEL, JOHANNY Referring Unavailable JALEEL, JOHANNY Attending Unavailable Guanako WATKINS, Vargas Attending Unavailabl e Guanako PA, [place] Primary Care Unavailabl e Guanako PA, Vargas Referring Unavailabl e Guanako PA, [place] Primary Care Unavailabl e Senia, Garry Attending Unavailable Guanako WATKINS, [place] Primary Care Unavailabl e Garcia, Naam Attending Unavailable Guanako PA, [place] Primary Care Unavailabl e Guanako PA, Vargas Referring Unavailabl e Guanako PA, [place] Attending Unavailabl e Allergies Allergy Classification Reported Allergen(s) Allergy Type Date of Onset Reaction(s) Facility Acetaminophen / HYDROcodone (1 source) Acetaminophen / HYDROcodone; Translations: [Vicodin TABS] Drug Allergy Rash, Itching [facility] Work Phone: Aminoketones (1 source) buPROPion; Translations: [Wellbutrin] Drug Allergy Rash [facility] Work Phone: Meclizine (1 source) Meclizine; Translations: [meclizine] Drug Allergy Other [facility] Work Phone: Nadolol (1 source) Nadolol; Translations: [nadolol] Drug Allergy Chest Pain [facility] Work Phone: Opioid Agonists (1 source) Morphine; Translations: [Morphine Sulfate SOLN] Drug Allergy [facility] Work Phone: Penicillin V (1 source) Penicillin V; Translations: [Penicillin V Potassium SOLR] Drug Allergy Hives [facility] Work Phone: Serotonin Reuptake Inhibitors (SSRIs) (1 source) Citalopram; Translations: [citalopram] Drug Allergy Other, Vomiting [facility] Work Phone: (20 sources) Acetaminophen / HYDROcodone; Translations: [HYDROCODONE-ACETAM INOPHEN] Drug Allergy 01-29-20 16 Hives, GI Upset, Itching, Rash [facility] Repository (20 sources) Morphine; Translations: [MORPHINE] Drug Allergy 08-24-20 16 Other: See Comments, Other [facility] Repository (20 sources) Penicillins; Translations: [PENICILLINS] Propensity to adverse reactions (disorder) 01-28-20 08 [facility] [place] Repository (20 sources) Acetaminophen / HYDROcodone; Translations: [Vicodin TABS] Drug Allergy Rash, Itching [facility] Work Phone: (20 sources) buPROPion; Translations: [Wellbutrin] Drug Allergy Rash [facility] (20 sources) Meclizine; Translations: [meclizine] Drug Allergy 06-02-20 21 Other: See Comments, Other [facility] Work Phone: (20 sources) Morphine; Translations: [Morphine Sulfate SOLN] Drug Allergy [facility] Work Phone: (20 sources) Penicillin V; Translations: [Penicillin V Potassium SOLR] Drug Allergy 02-09-20 23 [facility] Work Phone: (20 sources) Citalopram; Translations: [citalopram] Drug Allergy 06-02-20 21 Vomiting, Other: See Comments, Other [facility] Work Phone: (20 sources) Nadolol; Translations: [nadolol] Drug Allergy 11-14-19 19 Chest Pain, Itching, Other [facility] Work Phone: (20 sources) buPROPion; Translations: [BUPROPION] Drug Allergy 06-02-20 21 Rash [facility] Work Phone: (20 sources) predniSONE; Translations: [predniSONE] Drug Allergy 09-22-19 23 Itching [facility] (4 sources) Cholecalciferol Drug Allergy 08-17-20 22 [facility] (4 sources) Ergocalciferol Drug Allergy 08-17-20 22 [facility] (5 sources) HYDROcodone; Translations: [hydrocodone bitartrate] Drug Allergy 08-17-20 22 [facility] (7 sources) Doxycycline; Translations: [Doxycycline Hyclate CAPS] Drug Allergy 06-07-20 Hives [facility] Work Phone: (18 sources) buPROPion; Translations: [BUPROPION HCL] Drug Allergy 02-09-20 [facility] (1 source) Penicillin; Translations: [penicillin] Drug Allergy [facility] (3 sources) Penicillin; Translations: [PENICILLIN V] Drug Allergy 02-09-20 [place] [address] Repository (2 sources) Doxycycline; Translations: [DOXYCYCLINE] Drug Allergy 06-07-20 [facility] Repository (1 source) buPROPion Drug Allergy 12-21-19 [facility] Repository (1 source) Cholecalciferol Drug Allergy 12-21-19 [facility] Repository (1 source) Ergocalciferol Drug Allergy 12-21-19 [facility] Repository Medications Current Medications Medication Drug Class(es) Dates Sig (Normalized) Sig (Original) [id number] actuat albuterol 0.09 mg/actuat metered dose [...] sources) Muscle Relaxant Start: 06-07-20 End: 07-11-20 24 take 1 tablet by mouth twice daily [...] (13 sources) Low Molecular Weight Heparin Start: End: inject 0.6 mL by subcutaneous injection [...] 0 Active take 1 tablet by harper th once daily as needed for anxiety LORazepam [...] above: TAKE 1 TABLET BY HARPER TH EVERYDAY AT BEDTIME Take 50 mg by [...] on above: Take 2 tablets by mo [facility] once daily for 1 day, THEN 1 tablet once daily for 4 days. Bariatric Fusion Oral Tablet Chewable (9 sources) Start: 2 take 1 tablet by mouth once daily Bariatric Fusion Oral Tablet Chewable 1500mg daily Quantity: 0 Refills: 0 Ordered: 27-Jul-2022 DO Start : 27-Jul-2022 Active 12 hr buPROPion hydrochloride 150 mg extended release oral tablet (12 sources) Aminoketone Start: 4 End: 5 buPROPion SR (WELLBUTRIN SR) 150 mg 12 [...] 5000U QPM Quantity: 0 Refills: 0 Ordered: 29-Sep-2020 Josselyn Roblero MD Start : 29-Sep-2020 End [...] MRI Quantity: 1 Refills: 0 Shaikh DINORAH, [facility] Start : 21-Dec-2016 Active docusate sodium [...] 13, 2018 11:00pm April 28, 2020 9:27am Nicole Bravo Vincent-3 DHA Oral Tablet Chewable (20 sources) End: 07-27-2022 take 1 tablet by mouth twice daily [employer]umm[employer] Vincent-3 DHA Oral Tablet Chewable Take 1 tablet twice daily Quantity: 0 Refills: 0 Ordered: 27-Jul-2022 DO End : 27-Jul-2022 Complete take 1 tablet by mouth twice sandra ly [employer]inst[employer] Gummies Vincent-3 DHA Oral Tablet Chewable Take 1 tablet [...] tablet (20 sources) Start: 12-23-19 End: 12-11-19 22 take 1 tablet by mouth once daily [...] Start: 12-20-2019 take 1 capsule by mo [facility] once daily, then take 1 capsule by [...] Translations: [Platelet count below reference range] Chronic Developmental disorders (20 sources) Mild intellectual disability; Translations: [Mild intellectual disabilities] Onset: 3 02-08-2023 Chronic Disorders of lipid metabolism (9 sources) Hypercholesterolemia; [...] joint, pelvic region and thigh] Episodic Other nutritional; endocrine; and metabolic disorders (20 sources) Morbid obesity; Translations: [Morbid obesity] Onset: 5 04-09-2015 Chronic Other nutritional; endocrine; and metabolic disorders (20 sources) Qkxlt-9-dxjrnwsmaez deficiency; Translations: [Jnqls-1-mlgggmflhln deficiency] Onset: 9 09-20-2018 Chronic Other nutritional; [...] Decrease in appetite; Translations: [Anorexia] Episodic Other screening for suspected conditions (not mental disorders or infectious disease) (20 sources) Thyroid function tests abnormal; Translations: [Liver function tests abnormal] Onset: 8 Resolved: 5 06-29-2020 Episodic Other upper respiratory disease (1 source) [...] of patient refusal] Episodic Comment on above: 2020; Rheumatoid arthritis and related disease (20 sources) [...] excess calories Onset: 9 Unclassified (1 source) Acute cough; Translations: [Acute cough] Onset: 4 Unclassified (1 source) Low back pain, unspecified; Translations: [Low back pain, unspecified] Onset: 3 Unclassified (1 source) Obesity, class 3; Translations: [Obesity, class 3] Onset: 3 Viral infection (20 sources) Disease caused by 2019-nCoV; Translations: [Other specified viral infection] Episodic Past or Other Problems Problem Classification Problem Date Documented Da te Episodic/Chronic Conditions associated with dizziness or vertigo (20 sources) Lightheadedness; Translations: [Dizziness and giddiness] Onset: 3 Episodic Deficiency and other anemia (20 sources) Iron deficiency anemia; Translations: [Iron deficiency anemia, unspecified] Onset: 3 06-24-2020 Episodic Diabetes mellitus without complication (20 sources) Impaired glucose tolerance; Translations: [Impaired glucose tolerance test (oral)] Onset: 3 02-09-2023 Episodic Headache; including migraine (6 sources) Headache; [...] 12-04-2018 Episodic Other aftercare (2 sources) Other intermediate school teacher (current) drug therapy; Translations: [Other senior care (current) drug therapy] Onset: 4 Episodic Other connective tissue disease (3 sources) Pain in left foot; Translations: [Foot pain, left] Onset: 4 Episodic Other diseases of kidney [...] in unspecified joint] Onset: 3 Episodic Other non-traumatic joint disorders (1 source) Pain in left ankle and joints of left foot; Translations: [Pain in left ankle and joints of left foot] Onset: 5 Episodic Phlebitis; thrombophlebitis and thromboembolism (20 sources) [...] Test Name Value Interpretation Reference Range Facility Coronary Angiography CTon Coronary Angiography CT [facility] Imaging Services [address] [place] [address] 02/20/25 1618 MR#: [id number] Acct: [id number] Name: CURLY COWART Rep #: [id number] : 1985 39 From: Rafael Shipley MD PCP: JUNE Jeronimo Status:REG CLI Y Location: CT Calcium Scoring Date of Study:: 02/20/25 Indications Indications: Family history Coronary Calcium Scoring: High-resolution Computed Tomographic imaging of the chest was performed on [02/20/2025], with particular attention paid to the coronary arteries. Images from the examination were analyzed for the presence and extent of coronary artery calcification , using coronary calcium quantification software. The patient tolerated the procedure well and there were no complications. The results of the coronary calcification analysis are provided below. Findings Coronary Artery Left Main (LM): 0 Left Anterior Descending (LAD): 0 Left Circumflex (LCX): 0 Right Coronary Artery (RCA): 1.79 Total Agatston Score: 1.79 Percentile Rankin-90% Calcium Scoring Interpretation: Different methods to categorize the overall amount of coronary plaque. Overall amount CAC SIS Visual of coronary plaque P1 Mild -100 <2 1-2 vessels with mild amount of plaque P2 Moderate 101-300 3-4 1-2 vessels with moderate amount, 3 vessels with mild amount of plaque P3 Severe 301-999 5-7 3 vessels with moderate amount, 1 vessel with severe amount of plaque P4 Extensive >1000 >8 2-3 vessels with severe amount of plaque Conclusion: Minimal atherosclerotic plaque 02/20/25 1621 Date Rafael Shipley MD Cosigner Signature (if applicable): Date CC: CHARISSE MARMOLEJO; Dr. Rafael Shipley MD; JUNE Jeronimo Signed Normal [facility] Limited Chest CT Cardiac Onl yon 02-20-[address] Cardiac Only [facility] Imaging Services [address] [place], [place] [address] Limited Chest CT Cardiac Only MR#: [id number] Acct: [id number] Name: CURLY COWART Rep #: [id number] : 1985 F 39 From: Tex Liang PCP: JUNE Jeronimo Status: REG CLI Study: Limited Chest CT Cardiac Only Date of Exam: Exam# [id number] Ordering Dr: JOHANNY MARMOLEJO PROCEDURE: LIMITED CHEST CT CARDIAC ONLY 02/20/2025 REASON FOR EXAM: SCREEN TECHNIQUE: CT for coronary artery calcium scoring. One or more dose reduction techniques were used (e.g., Automated exposure control, adjustment of the mA and/or kV according to patient size, use of iterative reconstruction technique). RADIATION DOSE SUMMARY: CTDlvol: 12.19 mGy DLP: 219.42 mGycm COMPARISON: None. CT/Limited Chest CT Cardiac Only IMPRESSION: Prior cholecystectomy. Prior gastric surgery Limited imaging of the lungs demonstrates no acute process. No pleural effusion or pneumothorax is seen in visualized areas. No adenopathy is noted. The visualized upper abdomen demonstrates no acute abnormality. Reading Location: [place] [address] CC: CHARISSE MARMOLEJO; JUNE Jeronimo Track Oiler: Signed Normal [facility] CURLY COWART ([id number]) 1985 F Date Time Provider Department 01/29/25 JOHANNY MARMOLEJO During your visit today, we recorded the following information about you: Johanny Meredith LPN 01/29/2025 11:14 AM Signed [facility] asking for an order for Calcium Scoring to be faxed to [phone]. 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] 09/19/2018 Ankylosing spondylitis (HCC) [...] Encounter Status:Closed by BORIS ROBERTS on 01/29/25 [facility] CNOVon 01-28-2025 CNOV Office Visit (AGCARDPOB) CURLY COWART ([id number]) 1985 F Date Time Provider Department 01/28/25 2:30 PM JOHANNY MARMOLEJO During your visit today, we recorded the following information about you: Pulse Blood pressure Weight 72/minute 128/78 153.8 kg Johanny Marmolejo, ALF.HIGH [employer]CHO[employer] SPECIAL EDUCATION TEACHER 01/30/2025 11:11 AM Signed Chief Complaint Patient presents with: Cardiology Follow Up - Generic: sooner f/u than [place] - bradycardia History of Present Illness: Curly Cowart is a very pleasant 39 year old female who presents for symptom concerns. She has a past medical history of wide-complex tachycardia (s/p ablation 2018 at [facility]), gastric bypass surgery. She is known to Dr. Garay, last seen in our [place] office location 01/09/2023. The patient is a [...] is currently working with a dietitian through [employer] to improve her health and manage her [...] up Dr. Garay's first available appointment in [place] on 09/15/2025. PAST MEDICAL HISTORY Diagnosis Date Tzqcx-1-ualpocawkng deficiency (HCC) Cardiac dysrhythmia, unspecified 2007 Depressive [...] coils in fallopian tubes S BALLOON,UTERINE ABLATION 00277 2009 SHX CARDIAC RADIOFREQUENCY ABLATION 2018 ventricular [...] (atr (more content not included)... Normal [facility] CNPNon 01-09-2025 CNPN Telephone (CARDWS) CURLY COWART ([id number]) 1985 F Date Time Provider Department 01/09/25 TOMASZ GARAY CARDMARIA ISABEL During your visit today, we recorded the [...] if she is willing to come to [place]. Waiting to hear back from pt if she would like to reschedule. 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, [address] Calcium [Mass/Vol] 9.6 mg/dL Normal 7.6-11.0 [facility] Comment on above: Performed By: #### L 500.2500, L501.9520, L100.0500 ####[facility] [address] [place], [address] Chloride [Moles/Vol] 103 mmol/L Normal 98-[address] [facility] Comment on above: Performed By: #### L 500.2500, L501.9520, L100.0500 ####[facility] [address] [place], [address] CO2 [Moles/Vol] 26.1 mmol/L Normal 21.0-32.0 [facility] Comment on above: Performed By: #### L 500.2500, L501.9520, L100.0500 ####[facility] [address] [place], [address] Creatinine [Mass/Vol] 0.67 mg/dL Low 0.70-1.20 [facility] Comment on above: Performed By: #### L 500.2500, L501.9520, L100.0500 ####[facility] [address] [place], [address] ECRCL 167.96 ml/min Normal 50-250 [facility] Comment on above: Performed By: #### L 500.2500, L501.9520, L100.0500 ####[facility] [address] [place], [address] GAP 10 Normal 5-15 [facility] Comment on above: Performed By: #### L 500.2500, L501.9520, L100.0500 ####[facility] [address] [place], [address] GFR/1.73 sq M.predicted among non-blacks MDRD (S/P/Bld) [Vol rate/Area] 112 mL/min/{1.73_m2} Normal >60 [facility] Comment on above: Result Comment: mL/m in/1.73m2 CKD-EPI Creatinine Equation (2020) Performed By: #### L 500.2500, L501.9520, L100.0500 ####[facility] [address] [place], [address] Glucose [Mass/Vol] 131 mg/dL High 70-99 [facility] Comment on above: Performed By: #### L 500.2500, L501.9520, L100.0500 ####[facility] [address] [place], [address] Potassium [Moles/Vol] 3.8 mmol/L Normal 3.3-5.1 [facility] Comment on above: Performed By: #### L 500.2500, L501.9520, L100.0500 ####[facility] [address] [place], [address] Sodium [Moles/Vol] 139 mmol/L Normal 133-145 [facility] Comment on above: Performed By: #### L 500.2500, L501.9520, L100.0500 ####[facility] [address] [place], [address] Urea nitrogen [Mass/Vol] 9 mg/dL Normal 4-19 [facility] Comment on above: Performed By: #### L 500.2500, L501.9520, L100.0500 ####[facility] [address] [place], [address] CBC-Complete Blood Cnt No ffon 12-20-2024 Erythrocyte distribution width (RBC) [Ratio] 13.4 % Normal 11.6-14.6 [facility] Comment on above: Performed By: #### L 500.2500, L501.9520, L100.0500 ####[facility] [address] [place], [address] Hematocrit (Bld) [Volume fraction] 45.9 % Normal 37-47 [facility] Comment on above: Performed By: #### L 500.2500, L501.9520, L100.0500 ####[facility] [address] [place], [address] Hemoglobin (Bld) [Mass/Vol] 15.3 g/dL High 12.0-15.0 [facility] Comment on above: Performed By: #### L 500.2500, L501.9520, L100.0500 ####[facility] [address] [place], [address] MCH (RBC) [Entitic mass] 28.1 pg Normal 27.0-32.0 [facility] Comment on above: Performed By: #### L 500.2500, L501.9520, L100.0500 ####[facility] [address] [place], [address] MCHC (RBC) [Mass/Vol] 33.3 g/dL Normal 32-36 [facility] Comment on above: Performed By: #### L 500.2500, L501.9520, L100.0500 ####[facility] [address] [place], [address] MCV (RBC) [Entitic vol] 84.4 fL Normal 81-99 [facility] Comment on above: Performed By: #### L 500.2500, L501.9520, L100.0500 ####[facility] [address] [place], [address] Platelet mean volume (Bld) [Entitic vol] 11.3 fL Normal 6.2-12.0 [facility] Comment on above: Performed By: #### L 500.2500, L501.9520, L100.0500 ####[facility] [address] [place], [address] Platelets (Bld) [#/Vol] 204 10*3/uL Normal 150-450 [facility] Comment on above: Performed By: #### L 500.2500, L501.9520, L100.0500 ####[facility] [address] [place], [address] RBC (Bld) [#/Vol] 5.44 10*6/uL High 4.2-5.4 [facility] Comment on above: Performed By: #### L 500.2500, L501.9520, L100.0500 ####[facility] [address] [place], [address] RDW SD 41.5 fl Normal 35.1-43.9 [facility] Comment on above: Performed By: #### L 500.2500, L501.9520, L100.0500 ####[facility] [address] [place], [address] WBC (Bld) [#/Vol] 9.9 10*3/uL Normal 4.4-11.0 [facility] Comment on above: Performed By: #### L 500.2500, L501.9520, L100.0500 ####[facility] [address] [place], [address] Emergency Department Summary on 12-20-2024 Emergency Department Summary [facility] Medical Records Department [address] [place] [address] Emergency Department Summary 12/20/24 MR#: [id number] Acct: [id number] Name: CURLY COWART Rep #: [id number] : 1985 39 From: Anam Garcia MD [...] BMI is 56.9. Patient underwent ablation by risk analyst at [facility] 2019 for PSVT. 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 Normal [facility] Thyroid Stim Hormone (TSH)on 12-20-2024 TSH 3.010 uIU/mL Normal 0.300-4.200 [facility] Comment on above: Performed By: #### L 500.2500, L501.9520, L100.0500 ####[facility] [address] [place], [address] Benzodiazepine Conf URon BENZODIAZEPINE Negative Normal Ocxqzd=359 [facility] Comment on above: Order Comment: UNK Performed By: #### L 501.5200, L501.60143, L501.9520, L3380.5600, L500.4050, L3380.9100, L503.0106, L100.0100, L503.6550, L503.6030, L506.0400, L500.4100, L506.1001 ####[facility] [address] [place], [place], [id number] Opiates, Ur Confirmon 2024 OPIATES,UR Negative Normal Rprakg=426 [facility] Comment on above: Order Comment: UNK Result Comment: Opia te test includes Codeine and Morphine only. Performed at: [facility] [address] [facility], [facility], [place] [id number] Elementary Vocal Music Teacher: Cruz Lawler PhD, Phone: [phone] Performed By: #### L 501.5200, L501.99715, L501.9520, L3380.5600, L500.4050, L3380.9100, L503.0106, L100.0100, L503.6550, L503.6030, L506.0400, L500.4100, L506.1001 ####[facility] [address] [place], [place], [address] T4 Free Directon 11-11-2024 T4 FREE DIRECT 1.10 ng/dL Normal 0.76-1.46 [facility] Comment on above: Performed By: #### L 501.5200, L501.84153, L501.9520, L3380.5600, L500.4050, L3380.9100, L503.0106, L100.0100, L503.6550, L503.6030, L506.0400, L500.4100, L506.1001 ####[facility] [address] [place], [place], [address] CBC W/Diff, Automatedon 10-26 Absolute Lymph 1.92 X10 3/uL Normal 0.83-4.51 [facility] Comment on above: Performed By: #### L 501.5200, L501.62471, L501.9520, L3380.5600, L500.4050, L3380.9100, L503.0106, L100.0100, L503.6550, L503.6030, L506.0400, L500.4100, L506.1001 #### [facility] [address] [place], [address] Absolute Neut 5.5 X10 3/uL Normal 2.0-7.7 [facility] Comment on above: Performed By: #### L 501.5200, L501.30398, L501.9520, L3380.5600, L500.4050, L3380.9100, L503.0106, L100.0100, L503.6550, L503.6030, L506.0400, L500.4100, L506.1001 #### [facility] [address] [place], [address] Basophils/100 WBC (Bld) 0.4 % Normal 0-1 [facility] Comment on above: Performed By: #### L 501.5200, L501.78907, L501.9520, L3380.5600, L500.4050, L3380.9100, L503.0106, L100.0100, L503.6550, L503.6030, L506.0400, L500.4100, L506.1001 #### [facility] [address] [place], [address] Eosinophils/100 WBC (Bld) 1.8 % Normal 0-5 [facility] Comment on above: Performed By: #### L 501.5200, L501.45225, L501.9520, L3380.5600, L500.4050, L3380.9100, L503.0106, L100.0100, L503.6550, L503.6030, L506.0400, L500.4100, L506.1001 #### [facility] [address] [place], [address] Erythrocyte distribution width (RBC) [Ratio] 13.4 % Normal 11.6-14.6 [facility] Comment on above: Performed By: #### L 501.5200, L501.88397, L501.9520, L3380.5600, L500.4050, L3380.9100, L503.0106, L100.0100, L503.6550, L503.6030, L506.0400, L500.4100, L506.1001 #### [facility] [address] [place], [place], [phone] ([address]) Hematocrit (Bld) [Volume fraction] 43.6 % Normal 37-47 [facility] Comment on above: Performed By: #### L 501.5200, L501.69179, L501.9520, L3380.5600, L500.4050, L3380.9100, L503.0106, L100.0100, L503.6550, L503.6030, L506.0400, L500.4100, L506.1001 #### [facility] [address] [facility] [place], [place], [phone] Hemoglobin (Bld) [Mass/Vol] 14.2 g/dL Normal 12.0-15.0 [facility] Comment on above: Performed By: #### L 501.5200, L501.67729, L501.9520, L3380.5600, L500.4050, L3380.9100, L503.0106, L100.0100, L503.6550, L503.6030, L506.0400, L500.4100, L506.1001 #### [facility] [address] [facility] [place], [place], [phone] (561) IG% 0.500 Normal 0.0-0.9 [facility] Comment on above: Result Comment: IG% - Immature Granulocytes (promyelocytes, myelocytes and metamyelocytes) > 1% indicates that a LEFT SHIFT is Present. Performed By: #### L 501.5200, L501.40227, L501.9520, L3380.5600, L500.4050, L3380.9100, L503.0106, L100.0100, L503.6550, L503.6030, L506.0400, L500.4100, L506.1001 #### [facility] [address] [place], [address] Lymphocytes/100 WBC (Bld) 23.1 % Normal 19-41 [facility] Comment on above: Performed By: #### L 501.5200, L501.35796, L501.9520, L3380.5600, L500.4050, L3380.9100, L503.0106, L100.0100, L503.6550, L503.6030, L506.0400, L500.4100, L506.1001 #### [facility] [address] [facility] [place], [address] MCH (RBC) [Entitic mass] 27.7 pg Normal 27.0-32.0 [facility] Comment on above: Performed By: #### L 501.5200, L501.49840, L501.9520, L3380.5600, L500.4050, L3380.9100, L503.0106, L100.0100, L503.6550, L503.6030, L506.0400, L500.4100, L506.1001 #### [facility] [address] [place], [address] MCHC (RBC) [Mass/Vol] 32.6 g/dL Normal 32-36 [facility] Comment on above: Performed By: #### L 501.5200, L501.00452, L501.9520, L3380.5600, L500.4050, L3380.9100, L503.0106, L100.0100, L503.6550, L503.6030, L506.0400, L500.4100, L506.1001 #### [facility] [address] [place], [address] MCV (RBC) [Entitic vol] 85.0 fL Normal 81-99 [facility] Comment on above: Performed By: #### L 501.5200, L501.64748, L501.9520, L3380.5600, L500.4050, L3380.9100, L503.0106, L100.0100, L503.6550, L503.6030, L506.0400, L500.4100, L506.1001 #### [facility] [address] [facility] [place], [address] Monocytes/100 WBC (Bld) 8.6 % Normal 0-10 [facility] Comment on above: Performed By: #### L 501.5200, L501.37734, L501.9520, L3380.5600, L500.4050, L3380.9100, L503.0106, L100.0100, L503.6550, L503.6030, L506.0400, L500.4100, L506.1001 #### [facility] [address] [facility] [place], [address] Neutrophils/100 WBC (Bld) 65.6 % Normal 47-70 [facility] Comment on above: Performed By: #### L 501.5200, L501.06979, L501.9520, L3380.5600, L500.4050, L3380.9100, L503.0106, L100.0100, L503.6550, L503.6030, L506.0400, L500.4100, L506.1001 #### [facility] [address] [place], [address] Nucleated RBC (Bld) [#/Vol] 0 10*3/uL Normal 0-5 [facility] Comment on above: Performed By: #### L 501.5200, L501.31607, L501.9520, L3380.5600, L500.4050, L3380.9100, L503.0106, L100.0100, L503.6550, L503.6030, L506.0400, L500.4100, L506.1001 #### [facility] [address] [place], [address] Platelet mean volume (Bld) [Entitic vol] 12.0 fL Normal 6.2-12.0 [facility] Comment on above: Performed By: #### L 501.5200, L501.31298, L501.9520, L3380.5600, L500.4050, L3380.9100, L503.0106, L100.0100, L503.6550, L503.6030, L506.0400, L500.4100, L506.1001 #### [facility] [address] [place], [address] Platelets (Bld) [#/Vol] 143 10*3/uL Low 150-450 [facility] Comment on above: Performed By: #### L 501.5200, L501.71878, L501.9520, L3380.5600, L500.4050, L3380.9100, L503.0106, L100.0100, L503.6550, L503.6030, L506.0400, L500.4100, L506.1001 #### [facility] [address] [place], [address] RBC (Bld) [#/Vol] 5.13 10*6/uL Normal 4.2-5.4 [facility] Comment on above: Performed By: #### L 501.5200, L501.56773, L501.9520, L3380.5600, L500.4050, L3380.9100, L503.0106, L100.0100, L503.6550, L503.6030, L506.0400, L500.4100, L506.1001 #### [facility] [address] [place], [place], [id number] RDW SD 41.9 fl Normal 35.1-43.9 [facility] Comment on above: Performed By: #### L 501.5200, L501.08446, L501.9520, L3380.5600, L500.4050, L3380.9100, L503.0106, L100.0100, L503.6550, L503.6030, L506.0400, L500.4100, L506.1001 #### [facility] [address] [place], [place], [address] WBC (Bld) [#/Vol] 8.3 10*3/uL Normal 4.4-11.0 [facility] Comment on above: Performed By: #### L 501.5200, L501.81767, L501.9520, L3380.5600, L500.4050, L3380.9100, L503.0106, L100.0100, L503.6550, L503.6030, L506.0400, L500.4100, L506.1001 #### [facility] [address] [place], [address] Comprehensive Metabolic Prof oron 11-07-2024 Albumin [Mass/Vol] 4.0 g/dL Normal 3.5-5.0 [facility] Comment on above: Performed By: #### L 501.5200, L501.28331, L501.9520, L3380.5600, L500.4050, L3380.9100, L503.0106, L100.0100, L503.6550, L503.6030, L506.0400, L500.4100, L506.1001 #### [facility] [address] [place], [place], [phone] Albumin/Globulin [Mass ratio] 1.1 {ratio} Normal 0.9-2.4 [facility] Comment on above: Performed By: #### L 501.5200, L501.46856, L501.9520, L3380.5600, L500.4050, L3380.9100, L503.0106, L100.0100, L503.6550, L503.6030, L506.0400, L500.4100, L506.1001 #### [facility] [address] [facility] [place], [address] ALK PHOS 104 U/L Normal 35-104 [facility] Comment on above: Performed By: #### L 501.5200, L501.28279, L501.9520, L3380.5600, L500.4050, L3380.9100, L503.0106, L100.0100, L503.6550, L503.6030, L506.0400, L500.4100, L506.1001 #### [facility] [address] [facility] [place], [address] ALT [Catalytic activity/Vol] 60 U/L High <=34 [facility] Comment on above: Performed By: #### L 501.5200, L501.65878, L501.9520, L3380.5600, L500.4050, L3380.9100, L503.0106, L100.0100, L503.6550, L503.6030, L506.0400, L500.4100, L506.1001 #### [facility] [address] [facility] [place], [place], [phone] AST [Catalytic activity/Vol] 46 U/L High <=31 [facility] Comment on above: Performed By: #### L 501.5200, L501.46706, L501.9520, L3380.5600, L500.4050, L3380.9100, L503.0106, L100.0100, L503.6550, L503.6030, L506.0400, L500.4100, L506.1001 #### [facility] [address] [place], [place], [phone] (300) Bilirubin [Mass/Vol] 0.42 mg/dL Normal 0.00-1.[address] [facility] Comment on above: Performed By: #### L 501.5200, L501.41515, L501.9520, L3380.5600, L500.4050, L3380.9100, L503.0106, L100.0100, L503.6550, L503.6030, L506.0400, L500.4100, L506.1001 #### [facility] [address] [place], [place], [phone] (635) BUN/CRE 14.8 RATIO Normal 10-20 [facility] Comment on above: Performed By: #### L 501.5200, L501.84136, L501.9520, L3380.5600, L500.4050, L3380.9100, L503.0106, L100.0100, L503.6550, L503.6030, L506.0400, L500.4100, L506.1001 #### [facility] [address] [place], [place], [phone] (655) Calcium [Mass/Vol] 9.6 mg/dL Normal 7.6-11.0 [facility] Comment on above: Performed By: #### L 501.5200, L501.20320, L501.9520, L3380.5600, L500.4050, L3380.9100, L503.0106, L100.0100, L503.6550, L503.6030, L506.0400, L500.4100, L506.1001 #### [facility] [address] [place], [address] Chloride [Moles/Vol] 104 mmol/L Normal 98-[address] [facility] Comment on above: Performed By: #### L 501.5200, L501.13789, L501.9520, L3380.5600, L500.4050, L3380.9100, L503.0106, L100.0100, L503.6550, L503.6030, L506.0400, L500.4100, L506.1001 #### [facility] [address] [place], [place], [phone] (779) CO2 [Moles/Vol] 25.2 mmol/L Normal 21.0-32.0 [facility] Comment on above: Performed By: #### L 501.5200, L501.35711, L501.9520, L3380.5600, L500.4050, L3380.9100, L503.0106, L100.0100, L503.6550, L503.6030, L506.0400, L500.4100, L506.1001 #### [facility] [address] [place], [place], [id number] Creatinine [Mass/Vol] 0.66 mg/dL Low 0.70-1.20 [facility] Comment on above: Performed By: #### L 501.5200, L501.15916, L501.9520, L3380.5600, L500.4050, L3380.9100, L503.0106, L100.0100, L503.6550, L503.6030, L506.0400, L500.4100, L506.1001 #### [facility] [address] [place], [address] GAP 10 Normal 5-15 [facility] Comment on above: Performed By: #### L 501.5200, L501.99143, L501.9520, L3380.5600, L500.4050, L3380.9100, L503.0106, L100.0100, L503.6550, L503.6030, L506.0400, L500.4100, L506.1001 #### [facility] [address] [facility] [place], [place], [phone] (255) GFR/1.73 sq M.predicted among non-blacks MDRD (S/P/Bld) [Vol rate/Area] 113 mL/min/{1.73_m2} Normal >60 [facility] Comment on above: Result Comment: mL/m in/1.73m2 CKD-EPI Creatinine Equation (2020) Performed By: #### L 501.5200, L501.60366, L501.9520, L3380.5600, L500.4050, L3380.9100, L503.0106, L100.0100, L503.6550, L503.6030, L506.0400, L500.4100, L506.1001 #### [facility] [address] [facility] [address] [place], [place], [phone] (587) Globulin (S) [Mass/Vol] 3.5 g/dL Normal 2.2-4.2 [facility] Comment on above: Performed By: #### L 501.5200, L501.33053, L501.9520, L3380.5600, L500.4050, L3380.9100, L503.0106, L100.0100, L503.6550, L503.6030, L506.0400, L500.4100, L506.1001 #### [facility] [address] [place], [place], [phone] (056) Glucose [Mass/Vol] 90 mg/dL Normal 70-99 [facility] Comment on above: Performed By: #### L 501.5200, L501.50520, L501.9520, L3380.5600, L500.4050, L3380.9100, L503.0106, L100.0100, L503.6550, L503.6030, L506.0400, L500.4100, L506.1001 #### [facility] [address] [place], [address] Potassium [Moles/Vol] 4.4 mmol/L Normal 3.3-5.1 [facility] Comment on above: Performed By: #### L 501.5200, L501.00932, L501.9520, L3380.5600, L500.4050, L3380.9100, L503.0106, L100.0100, L503.6550, L503.6030, L506.0400, L500.4100, L506.1001 #### [facility] [address] [place], [place], [phone] (441) Sodium [Moles/Vol] 140 mmol/L Normal 133-145 [facility] Comment on above: Performed By: #### L 501.5200, L501.10414, L501.9520, L3380.5600, L500.4050, L3380.9100, L503.0106, L100.0100, L503.6550, L503.6030, L506.0400, L500.4100, L506.1001 #### [facility] [address] [place], [place], [phone] (366) T PROT 7.5 g/dL Normal 5.9-8.4 [facility] Comment on above: Performed By: #### L 501.5200, L501.87322, L501.9520, L3380.5600, L500.4050, L3380.9100, L503.0106, L100.0100, L503.6550, L503.6030, L506.0400, L500.4100, L506.1001 #### [facility] [address] [place], [place], [phone] (609) Urea nitrogen [Mass/Vol] 10 mg/dL Normal 4-19 [facility] Comment on above: Performed By: #### L 501.5200, L501.47745, L501.9520, L3380.5600, L500.4050, L3380.9100, L503.0106, L100.0100, L503.6550, L503.6030, L506.0400, L500.4100, L506.1001 #### [facility] [address] [place], [address] Ferritinon 11-07-2024 Ferritin [Mass/Vol] 71 ng/mL Normal 22-378 [facility] Comment on above: Performed By: #### L 501.5200, L501.70412, L501.9520, L3380.5600, L500.4050, L3380.9100, L503.0106, L100.0100, L503.6550, L503.6030, L506.0400, L500.4100, L506.1001 ####[facility] [address] [place], [address] Free T3on 11-07-2024 Free T3 [Mass/Vol] 3.3 pg/mL Normal 2.18-3.98 [facility] Comment on above: Performed By: #### L 501.5200, L501.33804, L501.9520, L3380.5600, L500.4050, L3380.9100, L503.0106, L100.0100, L503.6550, L503.6030, L506.0400, L500.4100, L506.1001 ####[facility] [address] [place], [address] Iron+Iron Binding Capacityon 11-07-2024 Iron [Mass/Vol] 77 ug/dL Normal 50-170 [facility] Comment on above: Performed By: #### L 501.5200, L501.12226, L501.9520, L3380.5600, L500.4050, L3380.9100, L503.0106, L100.0100, L503.6550, L503.6030, L506.0400, L500.4100, L506.1001 ####[facility] [address] [place], [place], [address](882) IRON SATURATION 25.0 Normal 13-59 [facility] Comment on above: Performed By: #### L 501.5200, L501.17928, L501.9520, L3380.5600, L500.4050, L3380.9100, L503.0106, L100.0100, L503.6550, L503.6030, L506.0400, L500.4100, L506.1001 ####[facility] [address] [place], [place], [id number] TIBC 308 ug/dL Normal 250-450 [facility] Comment on above: Performed By: #### L 501.5200, L501.21543, L501.9520, L3380.5600, L500.4050, L3380.9100, L503.0106, L100.0100, L503.6550, L503.6030, L506.0400, L500.4100, L506.1001 ####[facility] [address] [place], [place], [id number] UIBC 231 ug/dL Normal 228-428 [facility] Comment on above: Performed By: #### L 501.5200, L501.93454, L501.9520, L3380.5600, L500.4050, L3380.9100, L503.0106, L100.0100, L503.6550, L503.6030, L506.0400, L500.4100, L506.1001 ####[facility] [address] [place], [address] L503.0106on 11-07-2024 Cobalamin (Vitamin B12) [Mass/Vol] 813 pg/mL Normal 180-914 [facility] Comment on above: Performed By: #### L 501.5200, L501.79388, L501.9520, L3380.5600, L500.4050, L3380.9100, L503.0106, L100.0100, L503.6550, L503.6030, L506.0400, L500.4100, L506.1001 ####[facility] [address] [facility]. [place], [place], [id number] L506.1001on 11-07-2024 Vitamin D 25-OH 24.6 ng/mL Low 30-100 [facility] Comment on above: Result Comment: Dyan min D Status Deficiency: <20 ng/mL (50nmol/L) Insufficiency: 20-30 ng/mL (50-75 nmol/L) Sufficiency: 30-100 ng/mL (75-250 nmol/L) Toxicity: >100 ng/mL (>250 nmol/L) Performed By: #### L 501.5200, L501.52506, L501.9520, L3380.5600, L500.4050, L3380.9100, L503.0106, L100.0100, L503.6550, L503.6030, L506.0400, L500.4100, L506.1001 ####[facility] [address] [facility]. [place], [place], [id number] Lipid Profileon 11-07-2024 CHOL:HDL 3.76 Normal [facility] Comment on above: Performed By: #### L 501.5200, L501.31826, L501.9520, L3380.5600, L500.4050, L3380.9100, L503.0106, L100.0100, L503.6550, L503.6030, L506.0400, L500.4100, L506.1001 #### [facility] [address] [place], [place], [id number] (190) Cholesterol [Mass/Vol] 202 mg/dL High <=200 [facility] Comment on above: Result Comment: Chol esterol level, Desirable <200 mg/dL Borderline high cholesterol 200-239 mg/dL High cholesterol >=240 mg/dL Recommendations of the NCEP Adult Treatment Panel for the following risk-cutoff thresholds for the [place] population. Performed By: #### L 501.5200, L501.99341, L501.9520, L3380.5600, L500.4050, L3380.9100, L503.0106, L100.0100, L503.6550, L503.6030, L506.0400, L500.4100, L506.1001 #### [facility] [address] [place], [address] (848) Cholesterol in HDL [Mass/Vol] 54 mg/dL Normal [facility] Comment on above: Result Comment: Reyna onal Cholesterol Education Program (NCEP) guidelines: <40 mg/dL: Low HDL-cholesterol (major risk factor for CHD) >= 60 mg/dL: High HDL-cholesterol (negative risk factor for CHD) HDL-cholesterol is affected by a number of factors, e.g. smoking, exercise, hormones, sex and age. Performed By: #### L 501.5200, L501.14271, L501.9520, L3380.5600, L500.4050, L3380.9100, L503.0106, L100.0100, L503.6550, L503.6030, L506.0400, L500.4100, L506.1001 #### [facility] [address] [place], [place], [id number] (369) Cholesterol in LDL [Mass/Vol] 127 mg/dL Normal [facility] Comment on above: Result Comment: Bord jzawyq=456-331 mg/dL Higher Sefw=320 mg/dL or greater Performed By: #### L 501.5200, L501.91458, L501.9520, L3380.5600, L500.4050, L3380.9100, L503.0106, L100.0100, L503.6550, L503.6030, L506.0400, L500.4100, L506.1001 #### [facility] [address] [place], [place], [id number] (668) Cholesterol in VLDL [Mass/Vol] 21 mg/dL Normal 5-40 [facility] Comment on above: Performed By: #### L 501.5200, L501.23702, L501.9520, L3380.5600, L500.4050, L3380.9100, L503.0106, L100.0100, L503.6550, L503.6030, L506.0400, L500.4100, L506.1001 #### [facility] [address] [place], [place], [id number] (184) Triglyceride [Mass/Vol] 105 mg/dL Normal [facility] Comment on above: Result Comment: The drugs N-Acetylcysteine and Metamizole may falsely depress this assay. Normal range: <150 mg/dL Borderline High: 150-199 mg/dL High: 200-499 mg/dL Very High: >500 mg/dL Performed By: #### L 501.5200, L501.34573, L501.9520, L3380.5600, L500.4050, L3380.9100, L503.0106, L100.0100, L503.6550, L503.6030, L506.0400, L500.4100, L506.1001 #### [facility] [address] [place], [place], [id number] (609) Magnesiumon 11-07-2024 Magnesium [Mass/Vol] 1.9 mg/dL Normal 1.5-2.[address] [facility] Comment on above: Performed By: #### L 501.5200, L501.28912, L501.9520, L3380.5600, L500.4050, L3380.9100, L503.0106, L100.0100, L503.6550, L503.6030, L506.0400, L500.4100, L506.1001 #### [facility] [address] [place] [place], [address] Thyroid Stim Hormone (TSH)on 11-07-2024 TSH 2.910 uIU/mL Normal 0.300-4.200 [facility] Comment on above: Performed By: #### L 501.5200, L501.21700, L501.9520, L3380.5600, L500.4050, L3380.9100, L503.0106, L100.0100, L503.6550, L503.6030, L506.0400, L500.4100, L506.1001 ####[facility] [address] [facility] [address] [place], [place], [id number] MR/BMS.BPon 10-29-2024 MR/BMS.BP [address], [address] [place], [place] [address] OFFICE VISIT Date of Service: 10/28/24 MR#: [id number] Acct: [id number] Name: CURLY COWART Jorge A Rep #: [id number] : 1985 Provider: [facility] Sanam vazquez Age/Sex: 39/F [place] [facility] Status: Signed Intake Vital Signs 09/04/24 08:27 [...] Anxiety Iron deficiency anemia Vitamin D deficiency Tmlpp-8-szmwcjjcbno deficiency GERD (gastroesophageal reflux disease) Ankylosing spondylitis [...] family current occupational status: employed 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 Psychiatric services to monitor anxious symptoms and medi (more content not included)... Normal [facility] Ankle min 3 Viewson 10-23-19 25 Ankle min 3 Views [facility] Imaging Services [address] [place], [place] [address] Ankle min 3 Views MR#: [id number] Acct: [id number] Name: CURLY COWART Rep #: [id number] : 1985 F 39 From: Mackenzie Oneal i, MD PCP: JUNE Jeronimo Status: REG ER Study: Ankle min 3 Views Date of Exam: 10/23/24 Exam# [id number] Ordering Dr: Garry Conn DO PROCEDURE: ANKLE [...] of time, may consider MRI. Reading Location: [id number] CC: Dr. 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 Normal [facility] MR/BMS.BPon 09-30-2024 MR/BMS.BP [facility] [address] [place] [address], [address] [place] [address] OFFICE VISIT Date of Service: 09/24/24 MR#: [id number] Acct: [id number] Name: CURLY COWART Rep #: [id number] : 1985 [facility] vazquez Age/Sex: 39/F Location[place] [facility] Status: Signed Intake Vital Signs 09/04/24 08:27 [...] morphine Adverse Reaction (Verified 09/04/24 08:12) Nausea PFSH Medical History (Updated 09/30/24 @ 10:19 by Yvrose Bradshaw RN) Palpitations BRISEYDA (obstructive sleep apnea) 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 Normal [facility] Internal Medicine Office Vis itokojo 09-03-2024 Internal Medicine Office Visit [facility] [address] [place] [address] [address] [place] [address] OFFICE VISIT Date of Service: 09/04/24 MR#: [id number] Acct: [id number] Name: CURLY COWART Rep #: [id number] : 1985 Provider: Dr. 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 Normal [facility] Inital Evaluation (1) - PTon 07-31-2024 Inital Evaluation (1) - PT [facility] Physical Therapy [facility] [address] [place] [address] / REHABILITATION SERVICES INITIAL EVALUATION MR#: [id number] Acct: [id number] Name: CURLY COWART Rep #: [id number] : 1985 39 From: Cristobal Mclaughlin PT, Cert. MD [place], OCS Referring Dr.: JUNE Jeronimo Status: RE G RCR Insurance: [facility] SELF PAY INSURANCE Patient's Visit Information Visit Information Visit Information: CURLY COWART is a 39 year old F referred to Physical Therapy by JUNE Jeronimo with a diagnosis of CERVICALALGIA,LOW BACK PAIN WITH SCIATICA. Date of Evaluation: 07/31/24 Physical Therapist: Cristobal Mclaughlin PT, Cert T, OCS Visit Plan [...] to be FAXED BACK to us at [phone] for Medicare purposes. For Medicare only, by signing this I certify the plan of care. Please let me know if there are questions or concerns regarding this plan of care. Physician Signature: Date:__ 08/01/24 1316 CC: JUNE Jeronimo ADRIAN Signed Normal [facility] C reactive proteinon 024 CRP [Mass/Vol] 0.89 mg/dL Normal <1.00 [facility] Comment on above: Performed By: #### 4 537-7 #### SHORT JUAN RAMON ([id number]) [facility] ([facility]) [address] [place] [address] C-Reactive Proteinon 024 CRP [Mass/Vol] 0.89 mg/dL NINF - 1.00 mg/dL [facility] CBC W Auto Differential pane l (Bld)on 07-11-2024 Basophils (Bld) [#/Vol] 0.01 10*3/uL [facility] Basophils/100 WBC (Bld) 0.1 % 0.0 - 2.0 % [facility] Eosinophils (Bld) [#/Vol] 0.15 10*3/uL [facility] Eosinophils/100 WBC (Bld) 1.6 % 0.0 - 6.0 % [facility] Erythrocyte distribution width (RBC) [Ratio] 13.5 % 11.5 - 14.5 % [facility] Hematocrit (Bld) [Volume fraction] 46.9 % High 36.0 - 46.0 % [facility] Hemoglobin (Bld) [Mass/Vol] 14.9 g/dL 12.0 - 16.0 g/dL [facility] Immature granulocytes (Bld) [#/Vol] 0.03 10*3/uL [facility] Immature granulocytes/100 WBC (Bld) 0.3 % 0.0 - 0.9 % [facility] Comment on above: Immature Granulocyte Count (IG) includes promyelocytes, myelocytes and metamyelocytes but does not include bands. Percent differential counts (%) should be interpreted in the context of the absolute cell counts (cells/UL). Interpretation and review of laboratory results Abnormal [facility] Lymphocytes (Bld) [#/Vol] 1.78 10*3/uL [facility] Lymphocytes/100 WBC (Bld) 19.1 % 13.0 - 44.0 % [facility] MCH (RBC) [Entitic mass] 27.7 pg 26.0 - 34.0 pg [facility] MCHC (RBC) [Mass/Vol] 31.8 g/dL Low 32.0 - 36.0 g/dL [facility] MCV (RBC) [Entitic vol] 87 fL 80 - 100 fL [facility] Monocytes (Bld) [#/Vol] 0.63 10*3/uL [facility] Monocytes/100 WBC (Bld) 6.8 % 2.0 - 10.0 % [facility] Neutrophils (Bld) [#/Vol] 6.72 10*3/uL [facility] Comment on above: Percent differential counts (%) should be interpreted in the context of the absolute cell counts (cells/uL). Neutrophils/100 WBC (Bld) 72.1 % 40.0 - 80.0 % [facility] Nucleated RBC/100 WBC (Bld) [Ratio] 0 % [facility] Platelets (Bld) [#/Vol] 231 10*3/uL [facility] RBC (Bld) [#/Vol] 5.38 10*6/uL [facility] WBC (Bld) [#/Vol] 9.3 10*3/uL [facility] Basophils (Bld) [#/Vol] 0.01 x10*3/uL Normal 0.00-0.10 [facility] Comment on above: Performed By: #### 4 537-7 #### SHORT JUAN RAMON ([id number]) [facility] ([facility]) [address] [place] [address] Basophils/100 WBC (Bld) 0.1 % Normal 0.0-2.0 [facility] Comment on above: Performed By: #### 4 537-7 #### DEJA DELATORRE ([id number]) [facility] ([facility]) [address] [place] [address] Eosinophils (Bld) [#/Vol] 0.15 x10*3/uL Normal 0.00-0.70 [facility] Comment on above: Performed By: #### 4 537-7 #### DEJA DELATORER ([id number]) [facility] ([facility]) [address] [place] [address] Eosinophils/100 WBC (Bld) 1.6 % Normal 0.0-6.0 [facility] Comment on above: Performed By: #### 4 537-7 #### DEJA DELATORRE ([id number]) [facility] ([facility]) [address] [place] [address]696 Erythrocyte distribution width (RBC) [Ratio] 13.5 % Normal 11.5-14.5 [facility] Comment on above: Performed By: #### 4 537-7 #### DEJA DELATORRE ([id number]) [facility] ([facility]) [address] [place] [address] Hematocrit (Bld) [Volume fraction] 46.9 % High 36.0-46.0 [facility] Comment on above: Performed By: #### 4 537-7 #### DEJA DELATORRE ([id number]) [facility] ([facility]) [address] [place] [address] Hemoglobin (Bld) [Mass/Vol] 14.9 g/dL Normal 12.0-16.0 [facility] Comment on above: Performed By: #### 4 537-7 #### DEJA DELATORRE ([id number]) [facility] ([facility]) [address] [place] [address] Immature granulocytes (Bld) [#/Vol] 0.03 x10*3/uL Normal 0.00-0.70 [facility] Comment on above: Performed By: #### 4 537-7 #### DEJA DELATORRE ([id number]) [facility] ([facility]) [address] [place], [place] [address] Immature granulocytes/100 WBC (Bld) 0.3 % Normal 0.0-0.9 [facility] Comment on above: Result Comment: Maria ture Granulocyte Count (IG) includes promyelocytes, myelocytes and metamyelocytes but does not include bands. Percent differential counts (%) should be interpreted in the context of the absolute cell counts (cells/UL). Performed By: #### 4 537-7 #### DEJA DELATORRE ([id number]) [facility] ([facility]) [address] [place] [address] Lymphocytes (Bld) [#/Vol] 1.78 x10*3/uL Normal 1.20-4.80 [facility] Comment on above: Performed By: #### 4 537-7 #### DEJA DELATORRE ([id number]) [facility] ([facility]) [address] [place] [address] Lymphocytes/100 WBC (Bld) 19.1 % Normal 13.0-44.0 [facility] Comment on above: Performed By: #### 4 537-7 #### DEJA DELATORRE ([id number]) [facility] ([facility]) [address] [place] [address]121 MCH (RBC) [Entitic mass] 27.7 pg Normal 26.0-34.0 [facility] Comment on above: Performed By: #### 4 537-7 #### DEJA DELATORRE (49960) [facility] ([facility]) [address] [place] [address] MCHC (RBC) [Mass/Vol] 31.8 g/dL Low 32.0-36.0 [facility] Comment on above: Performed By: #### 4 537-7 #### DEJA DELATORRE ([id number]) [facility] ([facility]) [address] [place] [address] MCV (RBC) [Entitic vol] 87 fL Normal 80-100 [facility] Comment on above: Performed By: #### 4 537-7 #### DEJA DELATORRE ([id number]) [facility] ([facility]) [address] [place] [address] 65556 Monocytes (Bld) [#/Vol] 0.63 x10*3/uL Normal 0.10-1.00 [facility] Comment on above: Performed By: #### 4 537-7 #### DEJA DELATORRE ([id number]) [facility] ([facility]) [address] [place] [address] Monocytes/100 WBC (Bld) 6.8 % Normal 2.0-10.0 [facility] Comment on above: Performed By: #### 4 537-7 #### DEJA DELATORRE (89404) [facility] ([facility]) [address] [place] [address] Neutrophils (Bld) [#/Vol] 6.72 x10*3/uL Normal 1.20-7.70 [facility] Comment on above: Result Comment: Perc ent differential counts (%) should be interpreted in the context of the absolute cell counts (cells/uL). Performed By: #### 4 537-7 #### DEJA DELATORRE ([id number]) [facility] ([facility]) [address] [place] [address] 82573 Neutrophils/100 WBC (Bld) 72.1 % Normal 40.0-80.0 [facility] Comment on above: Performed By: #### 4 537-7 #### DEJA DELATORRE ([id number]) [facility] ([facility]) [address] [place] [address] Nucleated RBC/100 WBC (Bld) [Ratio] 0.0 /100 WBCs Normal 0.0-0.0 [facility] Comment on above: Performed By: #### 4 537-7 #### DEJA DELATORRE ([id number]) [facility] ([facility]) [address] [place] [address]52 Platelets (Bld) [#/Vol] 231 x10*3/uL Normal 150-450 [facility] Comment on above: Performed By: #### 4 537-7 #### DEJA DELATORRE ([id number]) [facility] ([facility]) [address] [place] [address] 45504 RBC (Bld) [#/Vol] 5.38 x10*6/uL High 4.00-5.20 [facility] Comment on above: Performed By: #### 4 537-7 #### DEJA DELATORRE (23908) [facility] ([facility]) [address] [place] [address] 75129 WBC (Bld) [#/Vol] 9.3 x10*3/uL Normal 4.4-11.3 [facility] Comment on above: Performed By: #### 4 537-7 #### DEJA DELATORRE ([id number]) [facility] ([facility]) [address] [place] [address] 07869 CRP [Mass/Vol]on 07-11-2024 Interpretation and review of laboratory results Normal [facility] Cyclic citrullinated peptide Ab.IgGon 07-11-2024 Cyclic citrullinated peptide IgG Qn <1 Normal <3 [facility] Comment on above: Order Comment: THE T [...] By: #### 4 537-7 #### DEJA DELATORRE ([id number]) [facility] ([facility]) [address] [place] [address] 67014 ESR Westergren method (Bld) [Velocity]on 07-11-2024 ESR (Bld) [Velocity] 32 mm/h High 0 - 20 mm/h [facility] Interpretation and review of laboratory results Abnormal [facility] ESR (Bld) [Velocity] 32 mm/h High 0-20 [facility] Comment on above: Performed By: #### 4 537-7 #### DEJA DELATORRE ([id number]) [facility] ([facility]) [address] [place] [address] Extractable nuclear Ab panel (S)on 07-11-2024 Centromere protein B Ab Qn (S) <0.2 Normal <1.0 [facility] Comment on above: Result Comment: < 1. 0 = NEGATIVE >=1.0 = POSITIVE Performed By: #### 4 537-7 #### DEJA DELATORRE ([id number]) [facility] ([facility]) [address] [place] [address] Chromatin Ab Qn <0.2 Normal <1.0 [facility] Comment on above: Result Comment: < 1. 0 = NEGATIVE >=1.0 = POSITIVE Performed By: #### 4 537-7 #### DEJA DELATORRE ([id number]) [facility] ([facility]) [address] [place] [address] DNA double strand Ab Qn (S) [IU]/mL Normal <5.0 [facility] Comment on above: Result Comment: NEGA TIVE: <= 4 IU/ML EQUIVOCAL: 5- 9 IU/ML POSITIVE: >=10 IU/ML Performed By: #### 4 537-7 #### DEJA DELATORRE ([id number]) [facility] ([facility]) [address] [place] [address] Padmini-1 extractable nuclear Ab IA Ql (S) <0.2 Normal <1.0 [facility] Comment on above: Result Comment: < 1. 0 = NEGATIVE >=1.0 = POSITIVE Performed By: #### 4 537-7 #### DEJA DELATORRE (00291) [facility] ([facility]) [address] [place] [address] Ribonucleoprotein extractable nuclear Ab IA Qn (S) 0.2 AI Normal <1.0 [facility] Comment on above: Result Comment: < 1. 0 = NEGATIVE >=1.0 = POSITIVE Performed By: #### 4 537-7 #### DEJA DELATORRE ([id number]) [facility] ([facility]) [address] [place] [address] Ribosomal P Ab Qn (S) <0.2 Normal <1.0 [facility] Comment on above: Result Comment: < 1. 0 = NEGATIVE >=1.0 = POSITIVE Performed By: #### 4 537-7 #### DEJA DELATORRE (42703) [facility] ([facility]) [address] [place] [address] SCL-70 extractable nuclear Ab IA Ql (S) <0.2 Normal <1.0 [facility] Comment on above: Result Comment: < 1. 0 = NEGATIVE >=1.0 = POSITIVE Performed By: #### 4 537-7 #### DEJA DELATORRE (08143) [facility] ([facility]) [address] [place] [address] Sjogrens syndrome-A extractable nuclear Ab IA Qn (S) <0.2 Normal <1.0 [facility] Comment on above: Result Comment: < 1. 0 = NEGATIVE >=1.0 = POSITIVE Performed By: #### 4 537-7 #### DEJA DELATORRE (99613) [facility] ([facility]) [address] [place] [address] Sjogrens syndrome-B extractable nuclear Ab IA Qn (S) <0.2 Normal <1.0 [facility] Comment on above: Result Comment: < 1. 0 = NEGATIVE >=1.0 = POSITIVE Performed By: #### 4 537-7 #### DEJA DELATORRE ([id number]) [facility] ([facility]) [address] [place] [address] Gillis extractable nuclear Ab IA Qn (S) <0.2 Normal <1.0 [facility] Comment on above: Result Comment: < 1. 0 = NEGATIVE >=1.0 = POSITIVE Performed By: #### 4 537-7 #### DEJA DELATORRE ([id number]) [facility] ([facility]) [address] [place] [address] Gillis extractable nuclear Ab+Ribonucleoprotein extractable nuclear Ab IA Ql (S) <0.2 Normal <1.0 [facility] Comment on above: Result Comment: < 1. 0 = NEGATIVE >=1.0 = POSITIVE Performed By: #### 4 537-7 #### DEJA DELATORRE ([id number]) [facility] ([facility]) [address] [place] [address] 12712 Nuclear Abon 07-11-2024 Nuclear Ab Hep2 substrate Ql (S) Positive Abnormal Negative [facility] Comment on above: Result Comment: The Antinuclear Antibody (FERNANDO) test was performed using indirect immunofluorescence assay with HEp-2 cells slide. Performed By: #### 4 537-7 #### DEJA DELATORRE ([id number]) [facility] ([facility]) [address] [place] [address] 58921 Nuclear Ab Hep2 substrate Ql (S)on 07-11-2024 FERNANDO PATTERN Homogeneous Normal [facility] Comment on above: Performed By: #### 4 537-7 #### DEJA DELATORRE ([id number]) [facility] ([facility]) [address] [place] [address] 54538 Nuclear Ab IF (S) [Titer] 1:80 Normal [facility] Comment on above: Performed By: #### 4 537-7 #### DEJA DELATORRE ([id number]) [facility] ([facility]) [address] [place] [address] 08783 Rheumatoid Factoron 07-11-20 24 Rheumatoid factor Nephelometry Qn (S) [facility] Rheumatoid factoron 07-11-20 24 Rheumatoid factor Nephelometry Qn (S) <10 Normal 0-15 [facility] Comment on above: Performed By: #### 4 537-7 #### DEJA DELATORRE ([id number]) [facility] ([facility]) [address] [place] [address] 70690 Rheumatoid factor Nephelomet ry Qn (S)on 07-11-2024 Interpretation and review of laboratory results Normal [facility] XR CERVICAL SPINE 2-3 VIEWSo n 07-11-2024 XR CERVICAL SPINE 2-3 VIEWS Interpreted By: Priya Michel, STUDY: Cervical spine, 3 views. INDICATION: Signs/Symptoms:cervica lgia. COMPARISON: None. ACCESSION NUMBER(S): [id number] ORDERING CLINICIAN: VARGAS MUJICA FINDINGS: Mild grade [...] Priya Michel 07/14/2024 5:50 AM Dictation workstation: [id number] [facility] XR LUMBAR SPINE 2-3 VIEWSon 07-11-2024 XR LUMBAR SPINE 2-3 VIEWS Interpreted By: Priya Michel, STUDY: Lumbar spine, three views. INDICATION: Signs/Symptoms:low back pain. COMPARISON: None. ACCESSION NUMBER(S): [id number] ORDERING CLINICIAN: VARGAS MUJICA FINDINGS: Alignment is within normal limits. Disc heights are maintained. Mild L4-5 and L5-S1 facet joint arthropathy. Vertebral body heights are preserved. Posterior elements are intact. IMPRESSION: 1. Mild L4-5 and L5-S1 facet joint arthropathy. MACRO: None. Signed by: Priya Michel 07/14/2024 5:51 AM Dictation workstation: [id number] [facility] CNOVon 06-07-2024 CN Office Visit (UCWSTR ) CURLY COWART ([id number]) 1985 F Date Time Provider Department 06/07/24 5:00 PM [facility] During your visit today, we recorded the following information about you: Temperature Pulse Respiration Blood pressure 97.2 degrees 98/minute 16/minute 128/86 Weight 151.8 kg Chloé Tipton, 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 06/07/2024 4:54 PM Signed Patient presents with: [...] understanding and agreement with this plan. 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 Normal [facility] XR FOOT 3V AP/LAT/OBL LTon 1 [...] periarticular erosions. IMPRESSION: No acute osseous abnormality Track Oiler: PSC Transcribe Date/Time: Jun 07 2024 4:29P Dictated by : WINNIE DINERO MD This examination was interpreted and the report reviewed and electronically signed by: WINNIE DINERO MD on Jun 07 2024 4:32PM EST [id number] Normal [facility] XR Foot - left AP and Latera l and obliqueon 06-07-2024 IMPRESSION: No acute osseous abnormality Track Oiler: PSC Transcribe Date/Time: Jun 07 2024 4:29P Dictated [...] No periarticular erosions. DIVISION OF RADIOLOGY Provider, Shanti Wolff Lizzy - 06/07/2024 * * *Final Report* * [...] erosions. IMPRESSION IMPRESSION: No acute osseous abnormality Track Oiler: YUVAL Transcribe Date/Time: Jun 07 2024 4:29P Dictated by : WINNIE DINERO MD This examination was interpreted and the report reviewed and electronically signed by: WINNIE DINERO MD on Jun 07 2024 4:32PM EST [facility] Radiology Study observation (narrative) [facility] XR Foot - left AP and Latera l and obliqueOrdered By: Ccf Provider on 06-07-2024 [facility] Roldan 04-25-2024 CNPN Telephone (UCWSTR) CURLY COWART ([id number]) 1985 F Date Time Provider Department 04/25/24 DONNIE ROWLAND During your visit today, we recorded the [...] Class III, BMI >= 40 [E66.01] 09/19/2018 Fzesk-1-dahmykoyotf 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] 09/19/2018 Ankylosing spondylitis (HCC) [...] Encounter Status:Closed by DONNIE ROWLAND on 04/25/24 [facility] CNOVon 04-24-2024 CNOV Office Visit (UCWSTR ) CURLY COWART ([id number]) 1985 F Date Time Provider Department 04/24/24 3:15 [facility] During your visit today, we recorded the following information about you: Temperature Pulse Respiration Blood pressure 98.5 degrees 88/minute 20/minute 132/86 Weight 148.3 kg Delfin Jain, 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 04/24/2024 4:31 PM Signed CC: Patient presents with: Sinus Problem: Congestion, cough, sore throat, MCKINNEY x 3 days HPI: Cruly Cowart is a 38 year old female [...] air exchange PAST MEDICAL HISTORY No date: Nqjoc-2-ouwrdgwweaz deficiency (HCC) 2008: Cardiac dysrhythmia, unspecified No date: Depressive disorder, not elsewhere classified No date: DVT (deep venous thrombosis) ([facility]) Comment: after PICC line No date: Esophageal reflux 04/09/2015: 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 No date: Irritable bowel syndrome No date: Morbid obesity ([facility]) Comment: stated BMI 47.3 No date: BRISEYDA (obstructive sleep apnea) No date: Other chronic nonalcoholic liver disease No date: Personal history of tobacco use, presenting hazards to health Comment: 1/2 ppd x 5 years; quit 08/18/14 - restarted and quit in 07/2021: Pneumonia due to COVID-19 virus No date: Pulmonary embolism ([facility]) Comment: after PICC line No date: V-tach ([facility]) PAST SURGICAL HISTORY 2003: DELIVERY ONLY Comment: , low cervical 01/08/2008: CHOLECYSTECTOMY 04/2021: EGD 02/2021: EGD 04/11/2022: LAPAROSCOPIC GASTRECTOMY 2012: LAPAROSCOPIC UTERINE NERVE ABLATION 2008: LIVER BIOPSY 09/21/2018: MIDLINE CATHETER Comment: 2010: PAST SURGICAL HISTORY OF Comment: spring coils in fallopian tubes 2010: S BALLOON,UTERINE ABLATION [address] 2019: SHX CARDIAC RADIOFREQUENCY ABLATION Comment: ventricular [...] currently 5 (more content not included)... Normal [facility] COVID AND INFLUENZA A/B AND RSV PCR, ROUTINEon 04-24-2024 SARS-CoV-2 (COVID-19) RNA ALISON+probe Ql (Unsp spec) SARS-COV-2 (AGENT OF COVID-19) RNA: Detected INFLUENZA A RNA: Not detected INFLUENZA B RNA: Not detected RESPIRATORY SYNCYTIAL VIRUS (RSV) RNA: Not detected Abnormal [facility] Comment on above: Performed By: #### C VFLRS #### [facility] CLIA [id number] [address] [place] [address] [place] XR CHEST 2V [...] tissues: Unremarkable. IMPRESSION: No acute radiographic abnormality. Track Oiler: YUVAL Transcribe Date/Time: Apr 24 2024 4:15P Dictated by : AMI DAVENPORT MD This examination was interpreted and the report reviewed and electronically signed by: AMI DAVENPORT MD on Apr 24 2024 4:19PM EST [id number] Normal [facility] XR Chest PA and Lateralon IMPRESSION: No acute radiographic abnormality. Track Oiler: ROBERTS CHAPELGabo Transcribe Date/Time: Apr 24 2024 4:15P Dictated by : AMI DAVENPORT MD This examination was interpreted and the report reviewed and electronically signed by: AMI DAVENPORT MD on Apr 24 2024 4:19PM EST DIVISION OF RADIOLOGY * * *Final [...] soft tissues: Unremarkable. DIVISION OF RADIOLOGY Provider, [facility] - 04/24/2024 * * *Final Report* * [...] Unremarkable. IMPRESSION IMPRESSION: No acute radiographic abnormality. Track Oiler: OLIGabo Transcribe Date/Time: Apr 24 2024 4:15P Dictated by : AMI DAVENPORT MD This examination was interpreted and the report reviewed and electronically signed by: AIM DAVENPORT MD on Apr 24 2024 4:19PM EST [facility] Radiology Study observation (narrative) [facility] XR Chest PA and LateralOrder ed By: Ccf Provider on 04-24-2024 [facility] Absolute lymphocyte countOrd ered By: Garry Conn on 10-19-2023 Lymphocytes Auto (Unsp spec) [#/Vol] 1.70 10*3/uL 0.83-4.51 [facility] Automated lymphocyte count a s percentage of total leukocytesOrdered By: Garry Conn on 10-19-2023 Lymphocytes/100 WBC Auto (Unsp spec) 25.5 % 19-41 [facility] Basophil percentageOrdered B y: Garry Conn on 10-19-2023 Basophils/100 WBC (Bld) 0.4 % 0-1 [facility] Chloride [Moles/Vol] 110 mmol/L 98-[address] [facility] Eosinophils/100 WBC (Bld) 1.6 % 0-5 [facility] Glucose [Mass/Vol] 97 mg/dL 74-106 [facility] Hemoglobin (Bld) [Mass/Vol] 14.0 g/dL 12.0-15.0 [facility] Monocytes/100 WBC (Bld) 12.4 % 0-10 [facility] Neutrophils (Bld) [#/Vol] 4.0 10*3/uL 2.0-7.7 [facility] Neutrophils/100 WBC (Bld) 59.7 % 47-70 [facility] Potassium [Moles/Vol] 3.9 mmol/L 3.5-5.1 [facility] Sodium [Moles/Vol] 139 mmol/L 136-145 [facility] WBC (Bld) [#/Vol] 6.7 10*3/uL 4.4-11.0 [facility] Determination of erythrocyte mean corpuscular volume (MCV)Ordered By: Garry Conn on 10-19-2023 MCV (RBC) [Entitic vol] 86.5 fL 81-99 [facility] Erythrocyte distribution wid th ratioOrdered By: Garry Conn on 10-19-2023 Erythrocyte distribution width (RBC) [Ratio] 13.6 % 11.6-14.6 [facility] Erythrocyte distribution wid th standard deviationOrdered By: Garry Conn on 10-19-2023 Erythrocyte distribution width (RBC) [Entitic vol] 42.6 fL 35.1-43.9 [facility] Erythrocyte sedimentation ra teOrdered By: Garry Conn on 10-19-2023 ESR (Bld) [Velocity] 26 mm/h 0-[address] [facility] Hematocrit Auto (Bld) [Volum e fraction]Ordered By: Garryyakelni Conn on 10-19-2023 Hematocrit (Bld) [Volume fraction] 42.9 % 37-47 [facility] Immature granulocytes/100 WB C Auto (Bld)Ordered By: Garry Conn on 10-19-2023 Immature granulocytes/100 WBC (Bld) 0.400 % 0.0-0.9 [facility] Comment on above: IG% - Immature Granu locytes (promyelocytes, myelocytes and metamyelocytes) > 1% indicates that a LEFT SHIFT is Present. Laboratory - Chemistry and C hemistry - challengeOrdered By: Garry Conn on 10-19-2023 CO2 [Moles/Vol] 26.0 mmol/L 21.0-32.0 [facility] Urea nitrogen/Creatinine [Mass ratio] 21.9 mg/mg 10-20 [facility] Laboratory - Hematology and Cell countsOrdered By: Garry Conn on 10-19-2023 MCH (RBC) [Entitic mass] 28.2 pg 27.0-32.0 [facility] MCHC (RBC) [Mass/Vol] 32.6 g/dL 32-36 [facility] Nucleated RBC/100 WBC (Bld) [Ratio] 0 % 0-5 [facility] Platelet mean volume (Bld) [Entitic vol] 11.6 fL 6.2-12.0 [facility] Platelets (Bld) [#/Vol] 173 10*3/uL 150-450 [facility] No Panel InformationOrdered By: Garry Conn on 10-19-2023 Estimated Creatinine Clearance Calc 166.54 ml/min [facility] Estimated GFR (MDRD) Amer 132 mL/min >60 [facility] Comment on above: GFR Calc Estimated GFR (MDRD) Non-Af Amer 109 mL/min >60 [facility] Comment on above: Non- GFR Calc RBC Auto (Bld) [#/Vol]Ordere d By: Garry Conn on 10-19-2023 RBC (Bld) [#/Vol] 4.96 10*6/uL 4.2-5.4 [facility] Serum or plasma calcium jimenez urement (mass/volume)Ordered By: Garry Conn on 10-19-2023 Calcium [Mass/Vol] 9.3 mg/dL 8.5-10.1 [facility] Serum or plasma creatinine m easurement (mass/volume)Ordered By: Garry Conn on 10-19-2023 Creatinine [Mass/Vol] 0.64 mg/dL 0.55-1.02 [facility] Comment on above: The validity of the calculated GFR & GFRAA in patients over 70 years has not been determined. Clinical correlation is essential. Serum or plasma urea nitroge n measurement (mass/volume)Ordered By: Garry Conn on 10-19-2023 Urea nitrogen [Mass/Vol] 14 mg/dL 7-18 [facility] Thin prep Papanicolaou smear with manual screeningOrdered By: Garry Conn on 10-19-2023 Thin prep Papanicolaou smear with manual screening 3 5-15 [facility] Basophil percentageOrdered B y: Anam Garcia on 10-03-2023 Chloride [Moles/Vol] 104 mmol/L 98-[address] [facility] Glucose [Mass/Vol] 88 mg/dL 74-106 [facility] Hemoglobin (Bld) [Mass/Vol] 14.9 g/dL 12.0-15.0 [facility] Potassium [Moles/Vol] 3.7 mmol/L 3.5-5.1 [facility] Sodium [Moles/Vol] 135 mmol/L 136-145 [facility] WBC (Bld) [#/Vol] 10.3 10*3/uL 4.4-11.0 [facility] Determination of erythrocyte mean corpuscular volume (MCV)Ordered By: Anam Garcia on 10-03-2023 MCV (RBC) [Entitic vol] 86.3 fL 81-99 [facility] Erythrocyte distribution wid th ratioOrdered By: Anam Garcia on 10-03-2023 Erythrocyte distribution width (RBC) [Ratio] 13.2 % 11.6-14.6 [facility] Erythrocyte distribution wid th standard deviationOrdered By: [facility] 10-03-[facility]23 Erythrocyte distribution width (RBC) [Entitic vol] 41.5 fL 35.1-43.9 [facility] Hematocrit Auto (Bld) [Volum e fraction]Ordered By: [facility] on 10-03-2023 Hematocrit (Bld) [Volume fraction] 44.9 % 37-47 [facility] Laboratory - Chemistry and C hemistry - challengeOrdered By: [facility] on 10-03-2023 CO2 [Moles/Vol] 29.0 mmol/L 21.0-32.0 [facility] Urea nitrogen/Creatinine [Mass ratio] 19.3 mg/mg 10-20 [facility] Laboratory - Hematology and Cell countsOrdered By: [facility] on 10-03-2023 MCH (RBC) [Entitic mass] 28.7 pg 27.0-32.0 [facility] MCHC (RBC) [Mass/Vol] 33.2 g/dL 32-36 [facility] Platelet mean volume (Bld) [Entitic vol] 11.2 fL 6.2-12.0 [facility] Platelets (Bld) [#/Vol] 185 10*3/uL 150-450 [facility] No Panel InformationOrdered By: Anam Garcia on 10-03-2023 Troponin I High Sensitivity 6 pg/mL 3.0-54.0 [facility] Comment on above: Please Note: New Uri t Units and Gender Specific Reference Ranges. For more information see Policy Stat Procedure [place] High Sensitivity Troponin (TNIH) and attachments. Estimated Creatinine Clearance Calc 158.86 ml/min [facility] Estimated GFR (MDRD) Amer 125 mL/min >60 [facility] Comment on above: GFR Calc Estimated GFR (MDRD) Non-Af Amer 103 mL/min >60 [facility] Comment on above: Non- GFR Calc RBC Auto (Bld) [#/Vol]Ordere d By: Anam Garcia on 10-03-2023 RBC (Bld) [#/Vol] 5.20 10*6/uL 4.2-5.4 [facility] Serum or plasma calcium jimenez urement (mass/volume)Ordered By: Anam Garcia on 10-03-2023 Calcium [Mass/Vol] 9.1 mg/dL 8.5-10.1 [facility] Serum or plasma creatinine m easurement (mass/volume)Ordered By: Anam Garcia on 10-03-2023 Creatinine [Mass/Vol] 0.67 mg/dL 0.55-1.02 [facility] Comment on above: The validity of the calculated GFR & GFRAA in patients over 70 years has not been determined. Clinical correlation is essential. Serum or plasma urea nitroge n measurement (mass/volume)Ordered By: Anam Garcia on 10-03-2023 Urea nitrogen [Mass/Vol] 13 mg/dL 7-18 [facility] Thin prep Papanicolaou smear with manual screeningOrdered By: Anam Garcia on 10-03-2023 Thin prep Papanicolaou smear with manual screening 2 5-15 [facility] 25-hydroxyvitamin D3 [Mass/V ol]on 09-25-2023 Interpretation and review of laboratory results Normal [facility] Deficiency: < 20 ng/ ml Insufficiency: 20-29 ng/ml Sufficiency: 30-100 ng/ml This assay accurately quantifies the sum of Vitamin D3, 25-Hydroxy and Vitamin D2,25-Hydroxy. [facility] C reactive proteinon 024 CRP [Mass/Vol] 0.71 mg/dL Normal <1.00 [facility] Comment on above: Performed By: #### 1 988-5 #### SHORT JUAN RAMON ([id number]) [facility] ([facility]) [address] [place] [address] C-Reactive Proteinon 024 CRP [Mass/Vol] 0.71 mg/dL NINF - 1.00 mg/dL [facility] CBC W Auto Differential pane l (Bld)on 09-25-2023 Basophils (Bld) [#/Vol] 0.03 10*3/uL [facility] Basophils/100 WBC (Bld) 0.4 % 0.0 - 2.0 % [facility] Eosinophils (Bld) [#/Vol] 0.10 10*3/uL [facility] Eosinophils/100 WBC (Bld) 1.2 % 0.0 - 6.0 % [facility] Erythrocyte distribution width (RBC) [Ratio] 13.4 % 11.5 - 14.5 % [facility] Hematocrit (Bld) [Volume fraction] 47.2 % High 36.0 - 46.0 % [facility] Hemoglobin (Bld) [Mass/Vol] 15.1 g/dL 12.0 - 16.0 g/dL [facility] Immature granulocytes (Bld) [#/Vol] 0.01 10*3/uL [facility] Immature granulocytes/100 WBC (Bld) 0.1 % 0.0 - 0.9 % [facility] Comment on above: Immature Granulocyte Count (IG) includes promyelocytes, myelocytes and metamyelocytes but does not include bands. Percent differential counts (%) should be interpreted in the context of the absolute cell counts (cells/UL). Interpretation and review of laboratory results Abnormal [facility] Lymphocytes (Bld) [#/Vol] 2.32 10*3/uL [facility] Lymphocytes/100 WBC (Bld) 28.2 % 13.0 - 44.0 % [facility] MCH (RBC) [Entitic mass] 28.3 pg 26.0 - 34.0 pg [facility] MCHC (RBC) [Mass/Vol] 32.0 g/dL 32.0 - 36.0 g/dL [facility] MCV (RBC) [Entitic vol] 88 fL 80 - 100 fL [facility] Monocytes (Bld) [#/Vol] 0.55 10*3/uL [facility] Monocytes/100 WBC (Bld) 6.7 % 2.0 - 10.0 % [facility] Neutrophils (Bld) [#/Vol] 5.22 10*3/uL [facility] Comment on above: Percent differential counts (%) should be interpreted in the context of the absolute cell counts (cells/uL). Neutrophils/100 WBC (Bld) 63.4 % 40.0 - 80.0 % [facility] Nucleated RBC/100 WBC (Bld) [Ratio] 0.0 % [facility] Platelets (Bld) [#/Vol] 208 10*3/uL [facility] RBC (Bld) [#/Vol] 5.34 10*6/uL [facility] WBC (Bld) [#/Vol] 8.2 10*3/uL [facility] Basophils (Bld) [#/Vol] 0.03 x10*3/uL Normal 0.00-0.10 [facility] Comment on above: Performed By: #### 5 7021-8 #### DEJA DELATORRE ([id number]) [facility] ([facility]) [address] [place] [address]20 Basophils/100 WBC (Bld) 0.4 % Normal 0.0-2.0 [facility] Comment on above: Performed By: #### 5 7021-8 #### DEJA DELATORRE ([id number]) [facility] ([facility]) [address] [place] [address] 87819 Eosinophils (Bld) [#/Vol] 0.10 x10*3/uL Normal 0.00-0.70 [facility] Comment on above: Performed By: #### 5 7021-8 #### DEJA DELATORRE ([id number]) [facility] ([facility]) [address] [place] [address] 27994 Eosinophils/100 WBC (Bld) 1.2 % Normal 0.0-6.0 [facility] Comment on above: Performed By: #### 5 7021-8 #### DEJA DELATORRE ([id number]) [facility] ([facility]) [address] [place] [address] 29433 Erythrocyte distribution width (RBC) [Ratio] 13.4 % Normal 11.5-14.5 [facility] Comment on above: Performed By: #### 5 7021-8 #### DEJA DELATORRE ([id number]) [facility] ([facility]) [address] [place] [address]704 Hematocrit (Bld) [Volume fraction] 47.2 % High 36.0-46.0 [facility] Comment on above: Performed By: #### 5 7021-8 #### DEJA DELATORRE ([id number]) [facility] ([facility]) [address] [place] [address] 45906 Hemoglobin (Bld) [Mass/Vol] 15.1 g/dL Normal 12.0-16.0 [facility] Comment on above: Performed By: #### 5 7021-8 #### DEJA DELATORRE ([id number]) [facility] ([facility]) [address] [place] [address] 60994 Immature granulocytes (Bld) [#/Vol] 0.01 x10*3/uL Normal 0.00-0.70 [facility] Comment on above: Performed By: #### 5 7021-8 #### DEJA DELATORRE ([id number]) [facility] ([facility]) [address] [place] [address] 67791 Immature granulocytes/100 WBC (Bld) 0.1 % Normal 0.0-0.9 [facility] Comment on above: Result Comment: Maria ture Granulocyte Count (IG) includes promyelocytes, myelocytes and metamyelocytes but does not include bands. Percent differential counts (%) should be interpreted in the context of the absolute cell counts (cells/UL). Performed By: #### 5 7021-8 #### DEJA DELATORRE ([id number]) [facility] ([facility]) [address] [place] [address] 76612 Lymphocytes (Bld) [#/Vol] 2.32 x10*3/uL Normal 1.20-4.80 [facility] Comment on above: Performed By: #### 5 7021-8 #### DEJA DELATORRE ([id number]) [facility] ([facility]) [address] [place] [address] 34081 Lymphocytes/100 WBC (Bld) 28.2 % Normal 13.0-44.0 [facility] Comment on above: Performed By: #### 5 7021-8 #### DEJA DELATORRE ([id number]) [facility] ([facility]) [address] [place] [address] 51227 MCH (RBC) [Entitic mass] 28.3 pg Normal 26.0-34.0 [facility] Comment on above: Performed By: #### 5 7021-8 #### DEJA DELATORRE ([id number]) [facility] ([facility]) [address] [place] [address] 42831 MCHC (RBC) [Mass/Vol] 32.0 g/dL Normal 32.0-36.0 [facility] Comment on above: Performed By: #### 5 7021-8 #### DEJA DELATORRE ([id number]) [facility] ([facility]) [address] [place] [address] 10881 MCV (RBC) [Entitic vol] 88 fL Normal 80-100 [facility] Comment on above: Performed By: #### 5 7021-8 #### DEJA DELATORRE ([id number]) [facility] ([facility]) [address] [place] [address] 61615 Monocytes (Bld) [#/Vol] 0.55 x10*3/uL Normal 0.10-1.00 [facility] Comment on above: Performed By: #### 5 7021-8 #### DEJA DELATORRE ([id number]) [facility] ([facility]) [address] [place] [address] 30297 Monocytes/100 WBC (Bld) 6.7 % Normal 2.0-10.0 [facility] Comment on above: Performed By: #### 5 7021-8 #### DEJA DELATORRE ([id number]) [facility] ([facility]) [address] [place] [address] 52685 Neutrophils (Bld) [#/Vol] 5.22 x10*3/uL Normal 1.20-7.70 [facility] Comment on above: Result Comment: Perc ent differential counts (%) should be interpreted in the context of the absolute cell counts (cells/uL). Performed By: #### 5 7021-8 #### DEJA DELATORRE ([id number]) [facility] ([facility]) [address] [place] [address] 00820 Neutrophils/100 WBC (Bld) 63.4 % Normal 40.0-80.0 [facility] Comment on above: Performed By: #### 5 7021-8 #### DEJA DELATORRE ([id number]) [facility] ([facility]) [address] [place] [address] 57654 Nucleated RBC/100 WBC (Bld) [Ratio] 0.0 /100 WBCs Normal 0.0-0.0 [facility] Comment on above: Performed By: #### 5 7021-8 #### DEJA DELATORRE ([id number]) [facility] ([facility]) [address] [place] [address] 07102 Platelets (Bld) [#/Vol] 208 x10*3/uL Normal 150-450 [facility] Comment on above: Performed By: #### 5 7021-8 #### DEJA DELATORRE ([id number]) [facility] ([facility]) [address] [place] [address] 09542 RBC (Bld) [#/Vol] 5.34 x10*6/uL High 4.00-5.20 [facility] Comment on above: Performed By: #### 5 7021-8 #### DEJA DELATORRE ([id number]) [facility] ([facility]) [address] [place] [address] 30845 WBC (Bld) [#/Vol] 8.2 x10*3/uL Normal 4.4-11.3 [facility] Comment on above: Performed By: #### 5 7021-8 #### DEJA DELATORRE ([id number]) [facility] ([facility]) [address] [place] [address] 72290 Calcidiolon 09-25-2023 25-hydroxyvitamin D3 [Mass/Vol] 38 ng/mL Normal 30-100 [facility] Comment on above: Order Comment: Defic iency: < 20 ng/mlInsufficiency: 20-29 ng/mlSufficiency: 30-100 ng/mlThis assay accurately quantifies the sum of Vitamin D3, 25-Hydroxy and Vitamin D2,25-Hydroxy. Performed By: #### 4 537-7 #### DEJA DELATORRE ([id number]) [facility] ([facility]) [address] [place], [place] [id number] Cobalamin (Vitamin B12) [Mas s/Vol]on 09-25-2023 Interpretation and review of laboratory results Normal [facility] Cobalaminson 09-25-2023 Cobalamin (Vitamin B12) [Mass/Vol] 534 pg/mL Normal 211-911 [facility] Comment on above: Performed By: #### 4 537-7 #### DEJA DELATORRE ([id number]) [facility] ([facility]) [address] [place], [place] [id number] Comprehensive metabolic 2000 panelon 09-25-2023 Albumin BCP dye [Mass/Vol] 4.3 g/dL 3.4 - 5.0 g/dL [facility] ALP [Catalytic activity/Vol] 111 U/L High 33 - 110 U/L [facility] ALT With P-5'-P [Catalytic activity/Vol] 46 U/L High 7 - 45 U/L [facility] Comment on above: Patients treated wit h Sulfasalazine may generate falsely decreased results for ALT. Anion gap [Moles/Vol] 10 mmol/L 10 - 2 0 mmol/L [facility] AST With P-5'-P [Catalytic activity/Vol] 38 U/L 9 - 39 U/L [facility] Bilirubin [Mass/Vol] 0.6 mg/dL 0.0 - 1 .2 mg/dL [facility] Calcium [Mass/Vol] 9.6 mg/dL 8.6 - 10. 3 mg/dL [facility] Chloride [Moles/Vol] 104 mmol/L 98 - 10 7 mmol/L [facility] CO2 [Moles/Vol] 30 mmol/L 21 - 32 mmol/L [facility] Creatinine [Mass/Vol] 0.67 mg/dL 0.50 - 1.05 mg/dL [facility] eGFR - PINF [facility] Comment on above: Calculations of colette mated GFR are performed using the 2020 CKD-EPI Study Refit equation without the race variable for the IDMS-Traceable creatinine methods. https://jasn.asnjournals.org/content//ASN.589261 6179 Glucose [Mass/Vol] 85 mg/dL 74 - 99 mg/dL [facility] Potassium [Moles/Vol] 4.0 mmol/L 3.5 - 5.3 mmol/L [facility] Protein [Mass/Vol] 7.6 g/dL 6.4 - 8.2 g/dL [facility] Sodium [Moles/Vol] 140 mmol/L 136 - 145 mmol/L [facility] Urea nitrogen [Mass/Vol] 13 mg/dL 6 - 23 mg/dL [facility] Albumin BCP dye [Mass/Vol] 4.3 g/dL Normal 3.4-5.0 [facility] Comment on above: Performed By: #### 2 4323-8 #### DEJA DELATORRE ([id number]) [facility] ([facility]) [address] [place] [address] ALP [Catalytic activity/Vol] 111 U/L High 33-110 [facility] Comment on above: Performed By: #### 2 4323-8 #### DEJA DELATORRE ([id number]) [facility] ([facility]) [address] [place] [address] 85235 ALT With P-5'-P [Catalytic activity/Vol] 46 U/L High 7-45 [facility] Comment on above: Result Comment: Vicenta ents treated with Sulfasalazine may generate falsely decreased results for ALT. Performed By: #### 2 4323-8 #### DEJA DELATORRE ([id number]) [facility] ([facility]) [facility] [place] [address] Anion gap [Moles/Vol] 10 mmol/L Normal 10-20 [facility] Comment on above: Performed By: #### 2 4323-8 #### DEJA DELATORRE ([id number]) [facility] ([facility]) [address] [place] [address] 89019 AST With P-5'-P [Catalytic activity/Vol] 38 U/L Normal 9-39 [facility] Comment on above: Performed By: #### 2 4323-8 #### DEJA DELATORRE ([id number]) [facility] ([facility]) [address] [place] [address] Bilirubin [Mass/Vol] 0.6 mg/dL Normal 0.0-1.2 [facility] Comment on above: Performed By: #### 2 4323-8 #### DEJA DELATORRE ([id number]) [facility] ([facility]) [address] [place] [address] Calcium [Mass/Vol] 9.6 mg/dL Normal 8.6-10.3 [facility] Comment on above: Performed By: #### 2 4323-8 #### DEJA DELATORRE ([id number]) [facility] ([facility]) [address] [place] [address] 12916 Chloride [Moles/Vol] 104 mmol/L Normal 98-107 [facility] Comment on above: Performed By: #### 2 4323-8 #### DEJA DELATORRE ([id number]) [facility] ([facility]) [address] [place] [address] CO2 [Moles/Vol] 30 mmol/L Normal 21-32 [facility] Comment on above: Performed By: #### 2 4323-8 #### DEJA DELATORRE ([id number]) [facility] ([facility]) [address] [place] [address]36 Creatinine [Mass/Vol] 0.67 mg/dL Normal 0.50-1.05 [facility] Comment on above: Performed By: #### 2 4323-8 #### DEJA DELAOTRRE ([id number]) [facility] ([facility]) [address] [place] [address] GFR/1.73 sq M.predicted MDRD (S/P/Bld) [Vol rate/Area] mL/min/{1.73_m2} Normal >60 [facility] Comment on above: Result Comment: Calc ulations of estimated GFR are performed using the 2020 CKD-EPI Study Refit equation without the race variable for the IDMS-Traceable creatinine methods. https://jasn.asnjournals.org/content//ASN.621653 3097 Performed By: #### 2 4323-8 #### DEJA DELATORRE ([id number]) [facility] ([facility]) [address] [place] [address] 98207 Glucose [Mass/Vol] 85 mg/dL Normal 74-99 [facility] Comment on above: Performed By: #### 2 4323-8 #### DEJA DELATORRE ([id number]) [facility] ([facility]) [address] [place] [address]765 Potassium [Moles/Vol] 4.0 mmol/L Normal 3.5-5.3 [facility] Comment on above: Performed By: #### 2 4323-8 #### DEJA DELATORRE ([id number]) [facility] ([facility]) [address] [place] [address] 05687 Protein [Mass/Vol] 7.6 g/dL Normal 6.4-8.2 [facility] Comment on above: Performed By: #### 2 4323-8 #### DEJA DELATORRE ([id number]) [facility] ([facility]) [address] [place] [address] 47245 Sodium [Moles/Vol] 140 mmol/L Normal 136-145 [facility] Comment on above: Performed By: #### 2 4323-8 #### DEJA DELATORRE ([id number]) [facility] ([facility]) [address] [place] [address] 29408 Urea nitrogen [Mass/Vol] 13 mg/dL Normal 6-23 [facility] Comment on above: Performed By: #### 2 4323-8 #### DEJA DELATORRE ([id number]) [facility] ([facility]) [address] [place] [address] 49772 ESR Westergren method (Bld) [Velocity]on 09-25-2023 ESR (Bld) [Velocity] 11 mm/h 0 - 20 mm/h [facility] Interpretation and review of laboratory results Normal [facility] ESR (Bld) [Velocity] 11 mm/h Normal 0-20 [facility] Comment on above: Performed By: #### 4 537-7 #### DEJA DELATORRE ([id number]) [facility] ([facility]) [address] [place] [address] Ferritinon 09-25-2023 Ferritin [Mass/Vol] 129 ng/mL 8 - 150 ng/[facility] Ferritin [Mass/Vol] 129 ng/mL Normal 8-150 [facility] Comment on above: Performed By: #### 2 276-4 #### DEJA DELATORRE ([id number]) [facility] ([facility]) [address] [place] [address] Free T4 [Mass/Vol]on 024 Interpretation and review of laboratory results Normal [facility] Thyroxine Free testi ng is performed using different testing methodology at [facility] than at other [facility]. Direct result comparisons should only be made within the same method. Biotin can cause falsely elevated free T4 results. Patients taking a Biotin dose of up to 10 mg/day should refrain from taking Biotin for 24 hours before sample collection. Patient taking a Biotin dose of >10 mg/day should consult with their physician or the laboratory before the blood draw. [facility] HbA1c (Bld) [Mass fraction]o n 09-25-2023 Average glucose Estimated from glycated hemoglobin (Bld) [Mass/Vol] 88 mg/dL Normal Not Established [facility] Comment on above: Order Comment: Diagn osis of Lkujzxld-RgxlkgUum-Ccmgkpld: < or = 5.6%Increased risk for developing diabetes: 5.7-6.4%Diagnostic of diabetes: > or = 6.5%Monitoring of DiabetesAge (y)....................... Therapeutic Goal (%)Adults: >18.........................<7.0Pediatrics: 13-18...................<7.5Pediatrics: 7-12....................<8.0Pediatrics: 0-6..................... 7.5-8.5American Diabetes Association. Diabetes Care 33(S1)Aug 2009 Performed By: #### 4 537-7 ###Natasha DELATORRE ([id number]) [facility] ([facility]) [address] [place] [id number] Hemoglobin A1c/Hemoglobin.to donald 09-25-2023 HbA1c (Bld) [Mass fraction] 4.7 % Normal see below [facility] Comment on above: Order Comment: Diagn osis of Ugubslxz-FltenbYqu-Vpjawwen: < or = 5.6%Increased risk for developing diabetes: 5.7-6.4%Diagnostic of diabetes: > or = 6.5%Monitoring of DiabetesAge (y)....................... Therapeutic Goal (%)Adults: >18.........................<7.0Pediatrics: 13-18...................<7.5Pediatrics: 7-12....................<8.0Pediatrics: 0-6..................... 7.5-8.5American Diabetes Association. Diabetes Care 33(S1)Aug 2009 Performed By: #### 4 537-7 #### DEJA DELATORRE ([id number]) [facility] ([facility]) [address] [place] [address] 95747 Iron and Iron binding capaci ty panelon 09-25-2023 Iron [Mass/Vol] 90 ug/dL 35 - 150 ug/dL [facility] Iron binding capacity [Mass/Vol] 318 ug/dL 240 - 445 ug/dL [facility] Iron binding capacity.unsaturated [Mass/Vol] 228 ug/dL 110 - 370 ug/dL [facility] Iron saturation [Mass fraction] 28 % 25 - 45 % [facility] Iron [Mass/Vol] 90 ug/dL Normal 35-150 [facility] Comment on above: Performed By: #### 5 0190-8 #### DEJA DELATORRE ([id number]) [facility] ([facility]) [facility] [place] [address] Iron binding capacity [Mass/Vol] 318 ug/dL Normal 240-445 [facility] Comment on above: Performed By: #### 5 0190-8 #### DEJA DELATORRE ([id number]) [facility] ([facility]) [address] [place] [address] 99667 Iron binding capacity.unsaturated [Mass/Vol] 228 ug/dL Normal 110-370 [facility] Comment on above: Performed By: #### 5 0190-8 #### DEJA DELATORRE ([id number]) [facility] ([facility]) [address] [place] [address] 00055 Iron saturation [Mass fraction] 28 % Normal 25-45 [facility] Comment on above: Performed By: #### 5 0190-8 #### DEJA DELATORRE ([id number]) [facility] ([facility]) [address] [place] [address] 25030 Lipid 1996 panelon 4 Cholesterol [Mass/Vol] 218 mg/dL High 0 - 199 mg/dL [facility] Comment on above: Age Desirable Borderline [...] dosing. Cholesterol in HDL [Mass/Vol] 52.0 mg/dL [facility] Comment on above: Age Very Low Low Normal High 0-19 Y < 35 < 40 40-45 ---- 20-24 Y ---- < 40 >45 ---- >24 Y ---- < 40 40-60 >60 Cholesterol in LDL [Mass/Vol] 147 mg/dL High NINF - 99 mg/dL [facility] Comment on above: Near Borderline AGE Desirable Optimal High High Very High 0-19 Y 0 - 109 --- 110-129 >/= 130 ---- 20-24 Y 0 - 119 --- 120-159 >/= 160 ---- >24 Y 0 - 99 100-129 130-159 160-189 >/=190 Cholesterol in VLDL [Mass/Vol] 19 mg/dL 0 - 40 mg/dL [facility] Cholesterol.total/Cho lesterol in HDL [Mass ratio] 4.2 {ratio} [facility] Comment on above: Ref Values Desirable < 3.4 High Risk > 5.0 Non HDL Cholesterol 166 mg/dL High 0 - 149 mg/dL Un [facility] Comment on above: Age Desirable Borderline High High Very High 0-19 Y 0 - 119 120 - 144 >/= 145 >/= 160 20-24 Y 0 - 149 150 - 189 >/= 190 ---- >24 Y 30 mg/dL above LDL Cholesterol goal Triglyceride [Mass/Vol] 97 mg/dL 0 - 149 mg/dL [facility] Comment on above: Age Desirable Borderline [...] dosing. Cholesterol [Mass/Vol] 218 mg/dL High 0-199 [facility] Comment on above: Result Comment: Age Desirable [...] By: #### 2 4331-1 #### DEJA DELATORRE ([id number]) [facility] ([facility]) [address] [place] [address] 18057 Cholesterol in HDL [Mass/Vol] 52.0 mg/dL Normal [facility] Comment on above: Result Comment: Age Very Low Low Normal High 0-19 Y < 35 < 40 40-45 ---- 20-24 Y ---- < 40 >45 ---- >24 Y ---- < 40 40-60 >60 Performed By: #### 2 4331-1 #### DEJA DELATORRE ([id number]) [facility] ([facility]) [address] [place] [address] 62545 Cholesterol in LDL [Mass/Vol] 147 mg/dL High <=99 [facility] Comment on above: Result Comment: Near Borderline AGE Desirable Optimal High High Very High 0-19 Y 0 - 109 --- 110-129 >/= 130 ---- 20-24 Y 0 - 119 --- 120-159 >/= 160 ---- >24 Y 0 - 99 100-129 130-159 160-189 >/=190 Performed By: #### 2 4331-1 #### DEJA DELATORRE ([id number]) [facility] ([facility]) [address] [place] [address] 44494 Cholesterol in VLDL [Mass/Vol] 19 mg/dL Normal 0-40 [facility] Comment on above: Performed By: #### 2 4331-1 #### DEJA DELATORRE ([id number]) [facility] ([facility]) [address] [place] [address] 03647 CHOLESTEROL/HDL RATIO 4.2 Normal [facility] Comment on above: Result Comment: Ref Values Desirable < 3.4 High Risk > 5.0 Performed By: #### 2 4331-1 #### DEJA DELATORRE ([id number]) [facility] ([facility]) [facility] [place] [address] NON HDL CHOLESTEROL 166 mg/dL High 0-149 [facility] Comment on above: Result Comment: Age Desirable Borderline High High Very High 0-19 Y 0 - 119 120 - 144 >/= 145 >/= 160 20-24 Y 0 - 149 150 - 189 >/= 190 ---- >24 Y 30 mg/dL above LDL Cholesterol goal Performed By: #### 2 4331-1 #### DEJA DELATORRE ([id number]) [facility] ([facility]) [address] [place] [address] 41326 Triglyceride [Mass/Vol] 97 mg/dL Normal 0-149 [facility] Comment on above: Result Comment: Age Desirable [...] By: #### 2 4331-1 #### DEJA DELATORRE ([id number]) [facility] ([facility]) [address] [place] [address] 06392 Magnesiumon 09-25-2023 Magnesium [Mass/Vol] 1.89 mg/dL 1.60 - 2.40 mg/dL [facility] Magnesium [Mass/Vol] 1.89 mg/dL Normal 1.60-2.40 [facility] Comment on above: Performed By: #### 1 9123-9 #### DEJA DELATORRE ([id number]) [facility] ([facility]) [address] [place] [address] No Panel Informationon 09-25 Interpretation and review of laboratory results Normal [facility] Interpretation and review of laboratory results Abnormal [facility] Interpretation and review of laboratory results Normal [facility] TSH Qnon 09-25-2023 Interpretation and review of laboratory results Normal [facility] TSH testing is performed using different testing methodology at [facility] than at other [facility]. Direct result comparisons should only be made within the same method. [facility] Thyroid Stimulating Hormoneo n 09-25-2023 TSH Qn 2.66 m[IU]/L [facility] Thyrotropinon 09-25-2023 TSH Qn 2.66 m[IU]/L Normal 0.44-3.98 [facility] Comment on above: Order Comment: TSH t esting is performed using different testing methodology at [facility] than at other [facility]. Direct result comparisons should only be made within the same method. Performed By: #### 3 016-3 #### DEJA DELATORRE ([id number]) [facility] ([facility]) [address] [place] [address] Thyroxine, Freeon 09-25-2023 Free T4 [Mass/Vol] 0.84 ng/dL 0.61 - 1. 12 ng/dL [facility] Thyroxine.freeon 09-25-2023 Free T4 [Mass/Vol] 0.84 ng/dL Normal 0.61-1.12 [facility] Comment on above: Order Comment: Thyro xine Free testing is performed using different testing methodology at [facility] than at other [facility]. Direct result comparisons should only be made [...] By: #### 3 024-7 #### DEJA DELATORRE ([id number]) [facility] ([facility]) [address] [place] [address] [place] [address] Vitamin B12on 09-25-2023 Cobalamin (Vitamin B12) [Mass/Vol] 534 pg/mL 211 - 911 pg/mL [facility] Vitamin D 25-Hydroxy,Total ( for eval of Vitamin D levels)on 09-25-2023 25-hydroxyvitamin D3 [Mass/Vol] 38 ng/mL 30 - 100 ng/mL [facility] LABORATORYOrdered By: SYSTEM SYSTEM on 05-15-2023 [...] COMPLIANCEon 02-14-2023 6-ACETYLMORPHINE <25 Normal Cutoff <25 [facility] Comment on above: Performed By: #### D SBOP #### [facility] [address] [place] [address] 7-AMINOCLONAZEPAM <25 Normal Cutoff <25 [facility] Comment on above: Performed By: #### D SBOP #### [facility] [address] [place] [address] ALPHA-HYDROXYALPRAZOL AM <25 Normal Cutoff <25 [facility] Comment on above: Performed By: #### D SBOP #### [facility] [address] [place] [id number] ALPHA-HYDROXYMIDAZOLA M <25 Normal Cutoff <25 [facility] Comment on above: Performed By: #### D SBOP #### [facility] [address] [place] [address] ALPRAZOLAM <25 Normal Cutoff <25 [facility] Comment on above: Performed By: #### D SBOP #### [facility] [address] [place] [address] CHLORDIAZEPOXIDE <25 Normal Cutoff <25 [facility] Comment on above: Performed By: #### D SBOP #### [place] [address] [place] [address] CLONAZEPAM <25 Normal Cutoff <25 [facility] Comment on above: Performed By: #### D SBOP #### [facility] [address] [place] [address] CODEINE <50 Normal Cutoff <50 [facility] Comment on above: Performed By: #### D SBOP #### [facility] [address] [place] [address] DIAZEPAM <25 Normal Cutoff <25 [facility] Comment on above: Performed By: #### D SBOP #### [facility] [address] [place] [address] EDDP,U <25 Normal Cutoff <25 [facility] Comment on above: Result Comment: The performance [...] Performed By: #### D SBOP #### [facility] [address] [place] [address] FENTANYL CONFIRM,U <2.5 Normal Cutoff<2.5 [facility] Comment on above: Performed By: #### D SBOP #### [facility] [address] [place] [address] HYDROCODONE <25 Normal Cutoff <25 [facility] Comment on above: Performed By: #### D SBOP #### [facility] [address] [place] [id number] HYDROMORPHONE <25 Normal Cutoff <25 [facility] Comment on above: Performed By: #### D SBOP #### [facility] [address] [place] [address] LORAZEPAM >1000 Abnormal Cutoff <25 [facility] Comment on above: Result Comment: Cons istent with use of a drug containing lorazepam, such as Ativan. Performed By: #### D SBOP #### [facility] [address] [place] [id number] METHADONE,U <25 Normal Cutoff <25 [facility] Comment on above: Performed By: #### D SBOP #### [facility] [address] [place] [address] MIDAZOLAM <25 Normal Cutoff <25 [facility] Comment on above: Performed By: #### D SBOP #### [facility] [address] [place] [address] MORPHINE <50 Normal Cutoff <50 [facility] Comment on above: Performed By: #### D SBOP #### [facility] [address] [place] [address] NORDIAZEPAM <25 Normal Cutoff <25 [facility] Comment on above: Performed By: #### D SBOP #### [facility] [address] [place] [address] NORFENTANYL CONFIRM,U <2.5 Normal Cutoff<2.5 [facility] Comment on above: Result Comment: The performance [...] testing. Performed By: #### D SBOP #### [facility] [address] [place] [id number] NORHYDROCODONE <25 Normal Cutoff <25 [facility] Comment on above: Performed By: #### D SBOP #### [facility] [address] [place] [id number] NOROXYCODONE <25 Normal Cutoff <25 [facility] Comment on above: Performed By: #### D SBOP #### [facility] [address] [place] [address] O-DESMETHYLTRAMADOL,U <50 Normal Cutoff <50 [facility] Comment on above: Result Comment: The performance [...] testing. Performed By: #### D SBOP #### [facility] [address] [place] [address] OXAZEPAM <25 Normal Cutoff <25 [facility] Comment on above: Performed By: #### D SBOP #### [facility] [address] [place] [address] OXYCODONE <25 Normal Cutoff <25 [facility] Comment on above: Performed By: #### D SBOP #### [facility] [address] [place] [address] OXYMORPHONE <25 Normal Cutoff <25 [facility] Comment on above: Result Comment: The performance [...] testing. Performed By: #### D SBOP #### [facility] [address] [place] [address] TEMAZEPAM <25 Normal Cutoff <25 [facility] Comment on above: Result Comment: The performance [...] testing. Performed By: #### D SBOP #### [facility] [address] [place] [address] TRAMADOL CONFIRM,U <50 Normal Cutoff <50 [facility] Comment on above: Performed By: #### D SBOP #### [facility] [address] [place] [address] ZOLPIDEM METABOLITE[ZCA] ,U <25 Normal Cutoff <25 [facility] Comment on above: Result Comment: The performance [...] testing. Performed By: #### D SBOP #### [facility] [address] [place] [address] ZOLPIDEM,URINE <25 Normal Cutoff <25 [facility] Comment on above: Performed By: #### D SBOP #### [facility] [address] [place] [address] ANTI-DNA [DS]on 02-10-2023 ANTI-DNA [DS] <1.0 Normal [facility] Comment on above: Result Comment: REF VALUES NEGATIVE: <= 4 IU/ML EQUIVOCAL: 5- 9 IU/ML POSITIVE: >=10 IU/ML Performed By: #### D NADS #### [facility] [address] [place], [place] CITRULLINE ANTIBODYon 2022 CITRULLINE ANTIBODY <1 Normal [facility] Comment on above: Result Comment: THE TEST [...] U/ML Performed By: #### C ITAB #### [facility] [address] [place], [place] OPIATE/OPIOID/BENZO EXTENDED PRESCRIPTION COMPLIANCEon 02-10-2023 AMPHETAMINE SCREEN,U Negative Normal NEGATIVE [facility] Comment on above: Result Comment: CUTO FF LEVEL: 500 NG/ML Cross-reactivity has been reported with high concentrations of the following drugs: buproprion, chloroquine, chlorpromazine, ephedrine, mephentermine, fenfluramine, phentermine, phenylpropanolamine, pseudoephedrine, and propranolol. Performed By: #### D SBOP #### [facility] [address] [place], [place] BARBITURATES SCREEN,U Negative Normal NEGATIVE formerly [facility] Comment on above: Result Comment: CUTO FF LEVEL: 200 NG/ML Performed By: #### D SBOP #### [facility] [address] [place] [address] CANNABINOIDS SCREEN,U Negative Normal NEGATIVE formerly [facility] Comment on above: Result Comment: CUTO FF LEVEL: 50 NG/ML Performed By: #### D SBOP #### [facility] [address] [place] [address] COCAINE METABOLITE SCREEN,U Negative Normal NEGATIVE [facility] Comment on above: Result Comment: CUTO FF LEVEL: 150 NG/ML Performed By: #### D SBOP #### [facility] [address] [place] [id number] Creatinine [Mass/Vol] 210.9 mg/dL Normal [facility] Comment on above: Result Comment: A ur ine creatinine result >= 20 mg/dL is considered valid without suspicion of dilution. Samples with results below this range will automatically reflex to specific gravity testing to verify specimen integrity. Performed By: #### D SBOP #### [facility] [address] [place] [address] DRUG SCREEN COMMENT. SEE BELOW Normal [facility] Comment on above: Result Comment: Drug screen [...] directors. Performed By: #### D SBOP #### [facility] [address] [place] [id number] PCP SCREEN,U Negative Normal NEGATIVE [facility] Comment on above: Result Comment: CUTO FF LEVEL: 25 NG/ML Cross-reactivity has been reported with dextromethorphan. Performed By: #### D SBOP #### [facility] [address] [place] [address] RHEUMATOID FACTORon 02-11-20 23 RHEUMATOID FACTOR <10 Normal 0 - 15 [facility] Comment on above: Performed By: #### R F #### [facility] [address] [place] [address] TRIIODOTHYRONINE,FREEon 01-26 TRIIODOTHYRONINE,FREE 3.0 pg/mL Normal 2.3 - 4.2 formerly [facility] Comment on above: Performed By: #### E SRWS #### [address] [address] C-REACTIVE PROTEINon 023 C-REACTIVE PROTEIN 1.10 mg/dL Abnormal [facility] Comment on above: Result Comment: REF VALUE < 1.00 Performed By: #### C RP #### [address] [address] C-Reactive Proteinon 023 CRP [Mass/Vol] 1.10 mg/dL Abnormal [facility] Comment on above: REF VALUE < 1.00 CBC AND DIFFERENTIALon 02-09 % AUTOMATED IMMATURE GRAN 0.4 % Normal 0.0 - 0.9 [facility] Comment on above: Result Comment: Maria ture Granulocyte Count (IG) includes promyelocytes, myelocytes and metamyelocytes but does not include bands. Percent differential counts (%) should be interpreted in the context of the absolute cell counts (cells/L). Performed By: #### C BCDF #### [address] [address] Basophils (Bld) [#/Vol] 0.02 10*3/uL Normal 0.00 - 0.10 [facility] Comment on above: Performed By: #### C BCDF #### [address] [address] Basophils/100 WBC (Bld) 0.2 % Normal 0.0 - 2.0 [facility] Comment on above: Performed By: #### C BCDF #### [address] [address] Eosinophils (Bld) [#/Vol] 0.12 10*3/uL Normal 0.00 - 0.70 [facility] Comment on above: Performed By: #### C BCDF #### [address] [address] Eosinophils/100 WBC (Bld) 1.1 % Normal 0.0 - 6.0 [facility] Comment on above: Performed By: #### C BCDF #### [address] [address] Erythrocyte distribution width (RBC) [Ratio] 13.9 % Normal 11.5 - 14.5 [facility] Comment on above: Performed By: #### C BCDF #### [address] [address] Hematocrit (Bld) [Volume fraction] 44.8 % Normal 36.0 - 46.0 [facility] Comment on above: Performed By: #### C BCDF #### [address] [address] Hemoglobin (Bld) [Mass/Vol] 14.4 g/dL Normal 12.0 - 16.0 [facility] Comment on above: Performed By: #### C BCDF #### [address] [address] Lymphocytes (Bld) [#/Vol] 2.40 10*3/uL Normal 1.20 - 4.80 [facility] Comment on above: Performed By: #### C BCDF #### [address] [address] Lymphocytes/100 WBC (Bld) 21.8 % Normal 13.0 - 44.0 [facility] Comment on above: Performed By: #### C BCDF #### [address] [address] MCHC (RBC) [Mass/Vol] 32.1 g/dL Normal 32.0 - 36.0 [facility] Comment on above: Performed By: #### C BCDF #### [address] [address] MCV (RBC) [Entitic vol] 87 fL Normal 80 - 100 [facility] Comment on above: Performed By: #### C BCDF #### [address] [address] Monocytes (Bld) [#/Vol] 0.73 10*3/uL Normal 0.10 - 1.00 [facility] Comment on above: Performed By: #### C BCDF #### [address] [address] Monocytes/100 WBC (Bld) 6.6 % Normal 2.0 - 10.0 [facility] Comment on above: Performed By: #### C BCDF #### [address] [address] Neutrophils (Bld) [#/Vol] 7.68 10*3/uL Normal 1.20 - 7.70 [facility] Comment on above: Result Comment: Perc ent differential counts (%) should be interpreted in the context of the absolute cell counts (cells/L). Performed By: #### C BCDF #### [address] [address] Neutrophils/100 WBC (Bld) 69.9 % Normal 40.0 - 80.0 [facility] Comment on above: Performed By: #### C BCDF #### [address] [address] Platelets (Bld) [#/Vol] 186 10*3/uL Normal 150 - 450 [facility] Comment on above: Performed By: #### C BCDF #### [address] [address] RBC 5.13 x10E12/L Normal 4.00 - 5.20 [facility] Comment on above: Performed By: #### C BCDF #### [address] [address] WBC (Bld) [#/Vol] 11.0 10*3/uL Normal 4.4 - 11.3 [facility] Comment on above: Performed By: #### C BCDF #### [address] [address] CBC W Auto Differential pane l (Bld)on 02-09-2023 Basophils (Bld) [#/Vol] 0.02 10*3/uL [facility] Basophils/100 WBC (Bld) 0.2 % 0.0 - 2.0 % [facility] Eosinophils (Bld) [#/Vol] 0.12 10*3/uL [facility] Eosinophils/100 WBC (Bld) 1.1 % 0.0 - 6.0 % [facility] Erythrocyte distribution width (RBC) [Ratio] 13.9 % 11.5 - 14.5 % [facility] Hematocrit (Bld) [Volume fraction] 44.8 % 36.0 - 46.0 % [facility] Hemoglobin (Bld) [Mass/Vol] 14.4 g/dL 12.0 - 16.0 g/dL [facility] Immature granulocytes/100 WBC (Bld) 0.4 % 0.0 - 0.9 % [facility] Comment on above: Immature Granulocyte Count (IG) includes promyelocytes, myelocytes and metamyelocytes but does not include bands. Percent differential counts (%) should be interpreted in the context of the absolute cell counts (cells/L). Lymphocytes (Bld) [#/Vol] 2.40 10*3/uL [facility] Lymphocytes/100 WBC (Bld) 21.8 % 13.0 - 44.0 % [facility] MCHC (RBC) [Mass/Vol] 32.1 g/dL 32.0 - 36.0 g/dL [facility] MCV (RBC) [Entitic vol] 87 fL 80 - 100 fL [facility] Monocytes (Bld) [#/Vol] 0.73 10*3/[facility] Monocytes/100 WBC (Bld) 6.6 % 2.0 - 10.0 % [facility] Neutrophils (Bld) [#/Vol] 7.68 10*3/uL [facility] Comment on above: Percent differential counts (%) should be interpreted in the context of the absolute cell counts (cells/L). Neutrophils/100 WBC (Bld) 69.9 % 40.0 - 80.0 % [facility] Platelets (Bld) [#/Vol] 186 10*3/uL [facility] RBC (Bld) [#/Vol] 5.13 10*6/uL [facility] WBC (Bld) [#/Vol] 11.0 10*3/uL [facility] ESR Westergren method (Bld) [Velocity]on 02-09-2023 ESR (Bld) [Velocity] 14 mm/h 0 - 20 mm/h [facility] Free T4 [Mass/Vol]on [address] [place] [address] HEPATIC FUNCTION PANELon Albumin [Mass/Vol] 4.0 g/dL Normal 3.4 - 5.0 [facility] Comment on above: Performed By: #### H EPFP #### [address] [address] ALP [Catalytic activity/Vol] 130 U/L High 33 - 110 [facility] Comment on above: Performed By: #### H EPFP #### [address] [address] ALT [Catalytic activity/Vol] 47 U/L High 7 - 45 [facility] Comment on above: Result Comment: Vicenta ents treated with Sulfasalazine may generate falsely decreased results for ALT. Performed By: #### H EPFP #### [address] [address] AST [Catalytic activity/Vol] 39 U/L Normal 9 - 39 [facility] Comment on above: Performed By: #### H EPFP #### [address] [address] Bilirubin [Mass/Vol] 0.4 mg/dL Normal 0.0 - 1.2 [facility] Comment on above: Performed By: #### H EPFP #### [address] [address] Bilirubin.indirect [Mass/Vol] 0.1 mg/dL Normal 0.0 - 0.3 [facility] Comment on above: Performed By: #### H EPFP #### [address] [address] Protein [Mass/Vol] 6.9 g/dL Normal 6.4 - 8.2 [facility] Comment on above: Performed By: #### H EPFP #### [address] [address] Hepatic function 2000 panelo n 06-15-2023 Albumin BCP dye [Mass/Vol] 4.0 g/dL 3.4 - 5.0 g/dL [facility] ALP [Catalytic activity/Vol] 130 U/L High 33 - 110 U/L [facility] ALT With P-5'-P [Catalytic activity/Vol] 47 U/L High 7 - 45 U/L [facility] Comment on above: Patients treated wit h Sulfasalazine may generate falsely decreased results for ALT. AST With P-5'-P [Catalytic activity/Vol] 39 U/L 9 - 39 U/L [facility] Bilirubin [Mass/Vol] 0.4 mg/dL 0.0 - 1 .2 mg/dL [facility] Bilirubin.direct [Mass/Vol] 0.1 mg/dL 0.0 - 0.3 mg/dL [facility] Protein [Mass/Vol] 6.9 g/dL 6.4 - 8.2 g/dL [facility] No Panel Informationon 02-09 Interpretation and review of laboratory results Abnormal [facility] OPIATE/OPIOID/BENZO EXTENDED PRESCRIPTION COMPLIANCEon 02-09-2023 Lab Specimen Source Urine Normal [facility] Comment on above: Performed By: #### D SBOP #### [facility] [address] [place] [address] POCT UA Automated manually r esultedon 02-09-2023 Appearance (U) Clear Clear [facility] Work Phone: Glucose Test strip (U) [Mass/Vol] Negative NEGATIVE mg/dl [facility] Work Phone: Hemoglobin Ql (U) Negative NEGATIVE [facility] Work Phone: Interpretation and review of laboratory results Abnormal [facility] Work Phone: Leukocyte esterase Test strip Ql (U) Negative NEGATIVE [facility] Work Phone: Nitrite Ql (U) Negative NEGATIVE [facility] Work Phone: pH (U) 7.0 [pH] No Reference Range Established [facility] Work Phone: POC Bilirubin, Urine Negative NEGATIVE [facility] Work Phone: [phone] POC Color, Urine Yellow Straw, Yellow, Light Yellow [facility] Work Phone: [phone] POC Ketones, Urine TRACE Abnormal NEGATIVE mg/dl [facility] Work Phone: POC Protein, Urine Negative NEGATIVE, 30 (1+) mg/dl [facility] Work Phone: [phone] POC Specific [place], Urine 1.025 1.005 - 1.035 [facility] Work Phone: [phone] POC Urobilinogen, Urine 0.2 0.2, 1.0 EU/DL [facility] Work Phone: [phone] [facility] Work Phone: [phone] SEDIMENTATION RATE, ERYTHROC YTEon 02-09-2023 SEDIMENTATION RATE, ERYTHROCYTE 14 mm/h Normal 0 - 20 [facility] Comment on above: Performed By: #### E SRWS #### [place] [address] THYROXINE,FREEon 02-09-2023 THYROXINE,FREE 0.79 ng/dL Normal 0.61 - 1.12 [facility] Comment on above: Result Comment: Thyr oxine Free testing is performed using different testing methodology at [facility] than at other [facility]. Direct result comparisons should only be made [...] draw. Performed By: #### T 4FRE #### [place] [address] Lab Specimen Source Normal [facility] Comment on above: Performed By: #### T 4FRE #### [place] [address] Performed By: #### E SRWS #### [place] [address] Performed By: #### H EPFP #### [address] [address] Performed By: #### C RP #### [address] [address] Performed By: #### C BCDF #### [address] [address] Performed By: #### T SH2 #### [address] [address] Performed By: #### D NADS #### [facility] [address] [place] [address] Performed By: #### C ITAB #### [facility] [address] [place] [address] TSHon 02-09-2023 TSH Qn 2.71 m[IU]/L Normal 0.44 - 3.98 [facility] Comment on above: Result Comment: TSH testing is performed using different testing methodology at [facility] than at other [facility]. Direct result comparisons should only be made within the same method. Performed By: #### T SH2 #### [place] [id number] TSH Qnon 02-09-2023 [facility] Thyroid Stimulating Hormoneo n 02-09-2023 TSH Qn 2.71 m[IU]/L [facility] Comment on above: TSH testing is perfo rmed using different testing methodology at [facility] than at other [facility]. Direct result comparisons should only be made within the same method. Thyroxine, Freeon 02-09-2023 Free T4 [Mass/Vol] 0.79 ng/dL 0.61 - 1. 12 ng/dL [facility] Comment on above: Thyroxine Free testi ng is performed using different testing methodology at [facility] than at other [facility]. Direct result comparisons should only be made [...] Auto (Unsp spec) [#/Vol] 1.69 10*3/uL 0.83-4.51 [facility] Basophil percentageOrdered B y: Dr. Conn on 01-05-2023 Basophils/100 WBC (Bld) 0.3 % 0-1 [facility] Chloride [Moles/Vol] 105 mmol/L 98-[address] [facility] Eosinophils/100 WBC (Bld) 1.0 % 0-5 [facility] Glucose [Mass/Vol] 99 mg/dL 74-106 [facility] Neutrophils (Bld) [#/Vol] 5.5 10*3/uL 2.0-7.7 [facility] Neutrophils/100 WBC (Bld) 69.1 % 47-70 [facility] Potassium [Moles/Vol] 4.0 mmol/L 3.5-5.1 [facility] Sodium [Moles/Vol] 139 mmol/L 136-145 [facility] WBC (Bld) [#/Vol] 8.0 10*3/uL 4.4-11.0 [facility] Blood erythrocytes count (nu mber/volume)Ordered By: Dr. Conn on 01-05-2023 RBC (Bld) [#/Vol] 5.30 10*6/uL 4.2-5.4 [facility] Blood hemoglobin measurement (mass/volume)Ordered By: Dr. Conn on 01-05-2023 Hemoglobin (Bld) [Mass/Vol] 14.9 g/dL 12.0-15.0 [facility] Blood lymphocytes/100 leukoc ytesOrdered By: Dr. Conn on 01-05-2023 Lymphocytes/100 WBC (Bld) 21.3 % 19-41 [facility] Blood monocytes/100 leukocyt esOrdered By: Dr. Conn on 01-05-2023 Monocytes/100 WBC (Bld) 7.9 % 0-10 [facility] Blood platelet mean volumeOr dered By: Dr. Conn on 01-05-2023 Platelet mean volume (Bld) [Entitic vol] 12.0 fL 6.2-12.0 [facility] Determination of erythrocyte mean corpuscular volume (MCV)Ordered By: Dr. Conn on 01-05-2023 MCV (RBC) [Entitic vol] 86.8 fL 81-99 [facility] Hematocrit Auto (Bld) [Volum e fraction]Ordered By: Dr. Conn on 01-05-2023 Hematocrit (Bld) [Volume fraction] 46.0 % 37-47 [facility] Laboratory - Chemistry and C hemistry - challengeOrdered By: Dr. Conn on 01-05-2023 CO2 [Moles/Vol] 26.0 mmol/L 21.0-32.0 [facility] Urea nitrogen/Creatinine [Mass ratio] 13.4 mg/mg 10-20 [facility] Laboratory - Hematology and Cell countsOrdered By: Dr. Conn on 01-05-2023 Erythrocyte distribution width (RBC) [Entitic vol] 42.5 fL 35.1-43.9 [facility] Erythrocyte distribution width (RBC) [Ratio] 13.4 % 11.6-14.6 [facility] Immature granulocytes/100 WBC (Bld) 0.400 % 0.0-0.9 [facility] Comment on above: IG% - Immature Granu locytes (promyelocytes, myelocytes and metamyelocytes) > 1% indicates that a LEFT SHIFT is Present. MCH (RBC) [Entitic mass] 28.1 pg 27.0-32.0 [facility] Nucleated RBC/100 WBC (Bld) [Ratio] 0 % 0-5 [facility] MCHC Auto (RBC) [Mass/Vol]Or dered By: Dr. Conn on 01-05-2023 MCHC (RBC) [Mass/Vol] 32.4 g/dL 32-36 [facility] No Panel InformationOrdered By: Dr. Conn on 01-05-2023 Estimated Creatinine Clearance Calc 105.53 ml/min [facility] Estimated GFR (MDRD) Amer 126 mL/min >60 [facility] Comment on above: GFR Calc Estimated GFR (MDRD) Non-Af Amer 104 mL/min >60 [facility] Comment on above: Non- GFR Calc Troponin I High Sensitivity 6 pg/mL 3.0-54.0 [facility] Comment on above: Please Note: New Uri t Units and Gender Specific Reference Ranges. For more information see Policy Stat Procedure [place] High Sensitivity Troponin (TNIH) and attachments. Platelets bldOrdered By: Dr. Conn on 01-05-2023 Platelets (Bld) [#/Vol] 171 10*3/uL 150-450 [facility] Serum or plasma calcium jimenez urement (mass/volume)Ordered By: Dr. Conn on 01-05-2023 Calcium [Mass/Vol] 9.1 mg/dL 8.5-10.1 [facility] Serum or plasma creatinine m easurement (mass/volume)Ordered By: Dr. Conn on 01-05-2023 Creatinine [Mass/Vol] 0.67 mg/dL 0.55-1.02 [facility] Comment on above: The validity of the calculated GFR & GFRAA in patients over 70 years has not been determined. Clinical correlation is essential. Serum or plasma urea nitroge n measurement (mass/volume)Ordered By: Dr. Conn on 01-05-2023 Urea nitrogen [Mass/Vol] 9 mg/dL 7-18 [facility] Thin prep Papanicolaou smear with manual screeningOrdered By: Dr. Conn on 01-05-2023 Thin prep Papanicolaou smear with manual screening 8 5-15 [facility] Absolute lymphocyte countOrd ered By: Dr. Sutton on 11-15-2022 Lymphocytes Auto (Unsp spec) [#/Vol] 2.02 10*3/uL 0.83-4.51 [facility] Basophil percentageOrdered B y: Dr. Sutton on 11-15-2022 Basophils/100 WBC (Bld) 0.1 % 0-1 [facility] Bilirubin [Mass/Vol] 0.40 mg/dL 0.20-1.[address] [facility] Comment on above: For patients on eltr ombopag therapy, use of Dimension [place] TBIL is not recommended. Chloride [Moles/Vol] 108 mmol/L 98-[address] [facility] Eosinophils/100 WBC (Bld) 1.7 % 0-5 [facility] Glucose [Mass/Vol] 103 mg/dL 74-106 [facility] Comment on above: Fasting Glucose resu lt from 100 to 125 mg/dL suggests IMPAIRED HOMEOSTASIS per A.D.A. criteria. Neutrophils (Bld) [#/Vol] 5.4 10*3/uL 2.0-7.7 [facility] Neutrophils/100 WBC (Bld) 66.2 % 47-70 [facility] Potassium [Moles/Vol] 3.7 mmol/L 3.5-5.1 [facility] Protein [Mass/Vol] 7.8 g/dL 6.4-8.2 [facility] Sodium [Moles/Vol] 141 mmol/L 136-145 [facility] WBC (Bld) [#/Vol] 8.1 10*3/uL 4.4-11.0 [facility] Blood erythrocytes count (nu mber/volume)Ordered By: Dr. Sutton on 11-15-2022 RBC (Bld) [#/Vol] 5.22 10*6/uL 4.2-5.4 [facility] Blood hemoglobin measurement (mass/volume)Ordered By: Dr. Sutton on 11-15-2022 Hemoglobin (Bld) [Mass/Vol] 14.5 g/dL 12.0-15.0 [facility] Blood lymphocytes/100 leukoc ytesOrdered By: Dr. Sutton on 11-15-2022 Lymphocytes/100 WBC (Bld) 24.8 % 19-41 [facility] Blood monocytes/100 leukocyt esOrdered By: Dr. Sutton on 11-15-2022 Monocytes/100 WBC (Bld) 7.0 % 0-10 [facility] Blood platelet mean volumeOr dered By: Dr. Sutton on 11-15-2022 Platelet mean volume (Bld) [Entitic vol] 12.1 fL 6.2-12.0 [facility] Determination of erythrocyte mean corpuscular volume (MCV)Ordered By: Dr. Sutton on 11-15-2022 MCV (RBC) [Entitic vol] 87.9 fL 81-99 [facility] Hematocrit Auto (Bld) [Volum e fraction]Ordered By: Dr. Sutton on 11-15-2022 Hematocrit (Bld) [Volume fraction] 45.9 % 37-47 [facility] Laboratory - Chemistry and C hemistry - challengeOrdered By: Dr. Sutton on 11-15-2022 ALP [Catalytic activity/Vol] 127 U/L 45-117 [facility] ALT [Catalytic activity/Vol] 76 U/L 13-56 [facility] CO2 [Moles/Vol] 30.0 mmol/L 21.0-32.0 [facility] Globulin (S) [Mass/Vol] 4.5 g/dL 2.2-4.2 [facility] Urea nitrogen/Creatinine [Mass ratio] 14.7 mg/mg 10-20 [facility] Laboratory - Hematology and Cell countsOrdered By: Dr. Sutton on 11-15-2022 Erythrocyte distribution width (RBC) [Entitic vol] 44.6 fL 35.1-43.9 [facility] Erythrocyte distribution width (RBC) [Ratio] 13.8 % 11.6-14.6 [facility] Immature granulocytes/100 WBC (Bld) 0.200 % 0.0-0.9 [facility] Comment on above: IG% - Immature Granu locytes (promyelocytes, myelocytes and metamyelocytes) > 1% indicates that a LEFT SHIFT is Present. MCH (RBC) [Entitic mass] 27.8 pg 27.0-32.0 [facility] Nucleated RBC/100 WBC (Bld) [Ratio] 0 % 0-5 [facility] MCHC Auto (RBC) [Mass/Vol]Or dered By: Dr. Sutton on 11-15-2022 MCHC (RBC) [Mass/Vol] 31.6 g/dL 32-36 [facility] No Panel InformationOrdered By: Dr. Sutton on 11-15-2022 Estimated Creatinine Clearance Calc 94.28 ml/min [facility] Estimated GFR (MDRD) Amer 111 mL/min >60 [facility] Comment on above: GFR Calc Estimated GFR (MDRD) Non-Af Amer 92 mL/min >60 [facility] Comment on above: Non- GFR Calc Troponin I High Sensitivity 5 pg/mL 3.0-54.0 [facility] Comment on above: Please Note: New Uri t Units and Gender Specific Reference Ranges. For more information see Policy Stat Procedure [place] High Sensitivity Troponin (TNIH) and attachments. Platelets bldOrdered By: Dr. Sutton on 11-15-2022 Platelets (Bld) [#/Vol] 189 10*3/uL 150-450 [facility] Serum or plasma albumin jimenez urement (mass/volume)Ordered By: Dr. Sutton on 11-15-2022 Albumin [Mass/Vol] 3.3 g/dL 3.2-5.0 [facility] Serum or plasma albumin/glob ulin mass ratioOrdered By: Dr. Sutton on 11-15-2022 Albumin/Globulin [Mass ratio] 0.7 {ratio} 0.9-2.4 [facility] Serum or plasma calcium jimenez urement (mass/volume)Ordered By: Dr. Sutton on 11-15-2022 Calcium [Mass/Vol] 9.3 mg/dL 8.5-10.1 [facility] Serum or plasma creatinine m easurement (mass/volume)Ordered By: Dr. Sutton on 11-15-2022 Creatinine [Mass/Vol] 0.75 mg/dL 0.55-1.02 [facility] Comment on above: The validity of the calculated GFR & GFRAA in patients over 70 years has not been determined. Clinical correlation is essential. Serum or plasma urea nitroge n measurement (mass/volume)Ordered By: Dr. Sutton on 11-15-2022 Urea nitrogen [Mass/Vol] 11 mg/dL 7-18 [facility] Thin prep Papanicolaou smear with manual screeningOrdered By: Dr. Sutton on 11-15-2022 Thin prep Papanicolaou smear with manual screening 57 U/L 15-37 [facility] Thin prep Papanicolaou smear with manual screening 3 5-15 [facility] XR FOOT GENERAL 3V AP/LAT/OB L RIGHTon 11-08-2022 [facility] XR Foot - right AP and Later al and obliqueon 11-08-2022 IMPRESSION: No acute radiographic abnormalities seen in the right foot. Track Oiler: PSCB Transcribe Date/Time: Nov 08 2022 11:42A Dictated by : TROY CHUNG MD This examination was interpreted and the report reviewed and electronically signed by: TROY CHUNG MD on Nov 08 2022 11:45AM [facility] DIVISION OF RADIOLOGY * * *Final [...] soft tissue swelling. DIVISION OF RADIOLOGY Provider, [facility] - 11/08/2022 * * *Final Report* [...] radiographic abnormalities seen in the right foot. Track Oiler: YUVAL Transcribe Date/Time: Nov 08 2022 11:42A Dictated by : TROY CHUNG MD This examination was interpreted and the report reviewed and electronically signed by: TROY CHUNG MD on Nov 08 2022 11:45AM [facility] Radiology Study observation (narrative) [facility] XR Foot - right AP and Later al and obliqueOrdered By: Ccf Provider on 11-08-2022 [facility] Office Visit (Internal Medic ine)on 10-17-2022 [...] COVID-19; JAKE = N; Verified Transmission to [id number]; Last Updated By: Jeanette Gracia; 10/17/2022 11:12:14 AM Patient Discussion/Summary Due to COVID 19 threat, virtual appointment completed with [employer] f/u in 1 week virtual COVID [...] depression Active (more content not included)... Normal [facility] Tobacco Screening.on 023 Fall risk assessment a) No falls within the last year [facility] Work Phone: Tobacco use status [facility] b) No [facility] Work Phone: CBC panel Auto (Bld)on 10-10 Erythrocyte distribution width (RBC) [Ratio] 13.7 % 11.5 - 15.0 % [facility] Hematocrit (Bld) [Volume fraction] 41.4 % 36.0 - 46.0 % [facility] Hemoglobin (Bld) [Mass/Vol] 13.9 g/dL 11.5 - 15.5 g/dL [facility] MCH (RBC) [Entitic mass] 28.5 pg 26.0 - 34.0 pg [facility] MCHC (RBC) [Mass/Vol] 33.6 g/dL 30.5 - 36.0 g/dL [facility] MCV (RBC) [Entitic vol] 84.8 fL 80.0 - 100.0 fL [facility] Nucleated RBC (Bld) [#/Vol] <0.01 k/uL [facility] Platelet mean volume (Bld) [Entitic vol] 11.5 fL 9.0 - 12.7 fL [facility] Platelets (Bld) [#/Vol] 184 10*3/uL 150 - 400 k/uL [facility] RBC (Bld) [#/Vol] 4.88 10*6/uL 3.90 - 5.2 0 m/uL [facility] WBC (Bld) [#/Vol] 9.59 10*3/uL 3.70 - 11. 00 k/uL [facility] XR CHEST 2V FRONTAL/LATon [facility] XR Chest PA and Lateralon IMPRESSION: No acute radiographic abnormality. Track Oiler: YUVAL Transcribe Date/Time: Sep 22 2022 1:49P Dictated by : TROY CHUNG MD This examination was interpreted and the report reviewed and electronically signed by: TROY CHUNG MD on Sep 22 2022 1:50PM [facility] DIVISION OF RADIOLOGY * * *Final [...] soft tissues: Unremarkable. DIVISION OF RADIOLOGY Provider, [facility] - 09/22/2022 * * *Final Report* * [...] Unremarkable. IMPRESSION IMPRESSION: No acute radiographic abnormality. Track Oiler: [email or web address] Transcribe Date/Time: Sep 22 2022 1:49P Dictated by : TROY CHUNG MD This examination was interpreted and the report reviewed and electronically signed by: TROY CHUNG MD on Sep 22 2022 1:50PM [facility] Radiology Study observation (narrative) [facility] XR Chest PA and LateralOrder ed By: Cc Provider on 09-22-2022 [facility] Office Visit (Internal Medic ine)on 09-20-2022 [...] Cough; JAKE = N; Verified Transmission to [facility][id number]; Last Updated By: French Girls; 09/20/2022 2:22:26 PM Start: Benzonatate 200 MG Oral Capsule; TAKE 1 CAPSULE 3 TIMES DAILY NEEDED Rx By: Josselyn Roblero; Dispense: 7 Days ; #:21 Capsule; Refill: 0;For: Chest congestion, Cough; JAKE = N; Verified Transmission to [facility] #4605; Last Updated By: French Girls; 09/20/2022 2:22:27 PM Patient Discussion/Summary 1 WEEK [...] negative for complaint. 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 Normal [facility] PHQ-2 VITALSon 09-20-2022 Adult depression screening assessment No [facility] Internal Medicine Work Phone: Tobacco use status CPHS b) No [facility] Internal Medicine Work Phone: Office Visit (Internal [...] Cervicalgia; JAKE = N; Verified Transmission to [facility] #4605; Last Updated By: French Girls; 08/31/2022 9:19:38 AM Pleurisy Start: Azithromycin 250 MG Oral Tablet (Zithromax Z-Bernardino); TAKE 2 TABLETS ON DAY 1 THEN TAKE 1 TABLET A DAY FOR 4 DAYS Rx By: Vargas Mujica; Dispense: 0 Days ; #:1 X 6 Tablet Pack; Refill: 0;For: Pleurisy; JAKE = N; Verified Transmission to [facility]; Last Updated By: French Girls; 08/31/2022 9:19:39 AM Patient Discussion/Summary Due to COVID 19 threat, virtual appointment completed with [employer] joanna f/u as before we had said [...] were we (more content not included)... Normal [facility] Tobacco Screening.on 023 Tobacco use status CPHS b) No [facility] Internal Medicine Work Phone: No Panel Informationon 08-27 3.07 1 above high threshold <2.54 [facility] Internal Medicine Work Phone: Comment on above: Reference:1. [place] l Cholesterol Education Program ATP III Guideline At-A-Glance Quick Desk Reference: National Heart, Lung, and Blood [place]. National Institutes of Health. 2001: NIH Publication No. 01-3305.2. An International Atherosclerosis Society position paper: global recommendations for the management of dyslipidemia: executive summary, Atherosclerosis. 2014: 232(2):410-413. 129 mg/dL above high threshold <100 [facility] Medicine Work Phone: Comment on above: <100 mg/dL, Optimal 100-129 mg/dL, Near optimal/above optimal 130-159 mg/dL, Borderline high 160-189 mg/dL, High>189 mg/dL, Very highSecondary prevention optimal LDL Cholesterol levels are recommended to be < 70 mg/dL 4.48 1 Normal <5.10 [facility] Medicine Work Phone: 17 mg/dL Normal <30 [facility] Medicine Work Phone: 10 {hrs} Normal [facility] Medicine Work Phone: 146 mg/dL above high threshold <130 [facility] Medicine Work Phone: Comment on above: <130 mg/dL, Optimal 130-159 mg/dL, Near optimal/above optimal 160-189 mg/dL, Borderline high 190-219 mg/dL, High>219 mg/dL, Very highSecondary prevention optimal non HDL Cholesterol levels are recommended to be <100 mg/dL 42 mg/dL Normal >39 [facility] Medicine Work Phone: Comment on above: 40-59 mg/dL, Accepta ble>59 mg/dL, High: Negative risk factor for coronary heart disease<40 mg/dL, Low: Positive risk factor for coronary heart disease 84 mg/dL Normal <150 [facility] Medicine Work Phone: Comment on above: <150 mg/dL, Normal 1 50-199 mg/dL, Borderline high 200-499 mg/dL, High>499 mg/dL, Very high 188 mg/dL Normal <200 [facility] Medicine Work Phone: Comment on above: <200 mg/dL, Desirabl e 200-239 mg/dL, Borderline high>239 mg/dL, High 1.1 ng/dL Normal 0.9-1.7 [facility] Medicine Work Phone: 1.850 {mIU/L} Normal 0.270-4.200 [facility] Medicine Work Phone: Comment on above: If the patient is pr egnant, TSH reference range varies by gestational period:First Trimester (weeks 9-12): 0.180-2.990 mIU/LSecond Trimester: 0.110-3.980 mIU/LThird Trimester: 0.480-4.710 mIU/Susannah Archer, et al. A Practical Approach for the Verifications and Determination of Site- and Trimester-Specific Reference Intervals for Thyroid Function tests in . Thyroid, 2019:29:3:412-420. Cristhian Wall, et al. 2017 Guidelines of the [place] Thyroid Association for the Diagnosis and Management of Thyroid Disease during and the . Thyroid, 2017:27:3:315-389. Absolute lymphocyte countOrd ered By: Dr. Espinoza on 08-17-2022 Lymphocytes Auto (Unsp spec) [#/Vol] 1.55 10*3/uL 0.83-4.51 [facility] Basophil percentageOrdered B y: Dr. Espinoza on 08-17-2022 Basophils/100 WBC (Bld) 0.2 % 0-1 [facility] Chloride [Moles/Vol] 106 mmol/L 98-[address] [facility] Eosinophils/100 WBC (Bld) 1.4 % 0-5 [facility] Glucose [Mass/Vol] 99 mg/dL 74-106 [facility] Neutrophils (Bld) [#/Vol] 6.4 10*3/uL 2.0-7.7 [facility] Neutrophils/100 WBC (Bld) 74.1 % 47-70 [facility] Potassium [Moles/Vol] 4.0 mmol/L 3.5-5.1 [facility] Sodium [Moles/Vol] 138 mmol/L 136-145 [facility] WBC (Bld) [#/Vol] 8.6 10*3/uL 4.4-11.0 [facility] Blood erythrocytes count (nu mber/volume)Ordered By: Dr. Espinoza on 08-17-2022 RBC (Bld) [#/Vol] 4.92 10*6/uL 4.2-5.4 [facility] Blood hemoglobin measurement (mass/volume)Ordered By: Dr. Espinoza on 08-17-2022 Hemoglobin (Bld) [Mass/Vol] 13.8 g/dL 12.0-15.0 [facility] Blood lymphocytes/100 leukoc ytesOrdered By: Dr. Espinoza on 08-17-2022 Lymphocytes/100 WBC (Bld) 18.1 % 19-41 [facility] Blood monocytes/100 leukocyt esOrdered By: Dr. Espinoza on 08-17-2022 Monocytes/100 WBC (Bld) 6.0 % 0-10 [facility] Blood platelet mean volumeOr dered By: Dr. Espinoza on 08-17-2022 Platelet mean volume (Bld) [Entitic vol] 11.6 fL 6.2-12.0 [facility] Determination of erythrocyte mean corpuscular volume (MCV)Ordered By: Dr. Espinoza on 08-17-2022 MCV (RBC) [Entitic vol] 86.0 fL 81-99 [facility] Hematocrit Auto (Bld) [Volum e fraction]Ordered By: Dr. Espinoza on 08-17-2022 Hematocrit (Bld) [Volume fraction] 42.3 % 37-47 [facility] Laboratory - Chemistry and C hemistry - challengeOrdered By: Dr. Espnioza on 08-17-2022 CO2 [Moles/Vol] 27.0 mmol/L 21.0-32.0 [facility] Urea nitrogen/Creatinine [Mass ratio] 19.8 mg/mg 10-20 [facility] Laboratory - Hematology and Cell countsOrdered By: Dr. Espinoza on 08-17-2022 Erythrocyte distribution width (RBC) [Entitic vol] 45.9 fL 35.1-43.9 [facility] Erythrocyte distribution width (RBC) [Ratio] 14.6 % 11.6-14.6 [facility] Immature granulocytes/100 WBC (Bld) 0.200 % 0.0-0.9 [facility] Comment on above: IG% - Immature Granu locytes (promyelocytes, myelocytes and metamyelocytes) > 1% indicates that a LEFT SHIFT is Present. MCH (RBC) [Entitic mass] 28.0 pg 27.0-32.0 [facility] Nucleated RBC/100 WBC (Bld) [Ratio] 0 % 0-5 [facility] MCHC Auto (RBC) [Mass/Vol]Or dered By: Dr. Espinoza on 08-17-2022 MCHC (RBC) [Mass/Vol] 32.6 g/dL 32-36 [facility] No Panel InformationOrdered By: Dr. Espinoza on 08-17-2022 Estimated Creatinine Clearance Calc 107.13 ml/min [facility] Estimated GFR (MDRD) Amer 129 mL/min >60 [facility] Comment on above: GFR Calc Estimated GFR (MDRD) Non-Af Amer 107 mL/min >60 [facility] Comment on above: Non- GFR Calc Troponin I High Sensitivity 6 pg/mL 3.0-54.0 [facility] Comment on above: Please Note: New Uri t Units and Gender Specific Reference Ranges. For more information see Policy Stat Procedure [place] High Sensitivity Troponin (TNIH) and attachments. Platelets bldOrdered By: Dr. Espinoza on 08-17-2022 Platelets (Bld) [#/Vol] 173 10*3/uL 150-450 [facility] Serum or plasma calcium jimenez urement (mass/volume)Ordered By: Dr. Espinoza on 08-17-2022 Calcium [Mass/Vol] 9.0 mg/dL 8.5-10.1 [facility] Serum or plasma creatinine m easurement (mass/volume)Ordered By: Dr. Espinoza on 08-17-2022 Creatinine [Mass/Vol] 0.66 mg/dL 0.55-1.02 [facility] Comment on above: The validity of the calculated GFR & GFRAA in patients over 70 years has not been determined. Clinical correlation is essential. Serum or plasma urea nitroge n measurement (mass/volume)Ordered By: Dr. Espinoza on 08-17-2022 Urea nitrogen [Mass/Vol] 13 mg/dL 7-18 [facility] Thin prep Papanicolaou smear with manual screeningOrdered By: Dr. Espinoza on 08-17-2022 Thin prep Papanicolaou smear with manual screening 5 - [facility] Office Visit (Internal Medic ine)on 07-27-2022 Follow-up [...] Cervicalgia; JAKE = N; Verified Transmission to [facility] #9082; Last Updated By: Jeanette Gracia; 07/27/2022 8:57:39 AM Start: predniSONE 10 MG Oral Tablet; take 2 tab po tid x 3 days then 1 tab po tid x 3 days then 1 tab bid x 3 days then 1 tab daily x 3 days Rx By: Vargas Mujica; Dispense: 0 Days ; #:36 Tablet; Refill: 0;For: Cervicalgia; JAKE = N; Verified Transmission to [facility] #4605; Last Updated By: [facility]; 07/27/2022 8:57:41 AM Depression, major, single episode, moderate Renew: Venlafaxine HCl ER 75 MG Oral Capsule Extended Release 24 Hour; Take 1 capsule twice daily Rx By: Vargas Mujica; Dispense: 30 Days ; #:60 Capsule; Refill: 2;For: Depression, major, single episode, moderate; JAKE = N; Verified Transmission to [facility] #4605; Last Updated By: Jeanette Gracia; 07/27/2022 8:57:39 AM Shahzad's disease T4 - Free Thyroxine, Serum; Status:Active; Requested for:27Jul2022; Perform:Lab Services - Lab To Draw (Blood Test); Due:[id number];Ordered; For:Shahzad's disease; Ordered By:Vargas Mujica; TSH - Thyroid Stimulating Hormone, Serum; Status:Active; Requested for:27Jul2022; Perform:Lab Services - Lab To Draw (Blood Test); Due:[id number];Ordered; For:Shahzad's disease; Ordered By:Vargas Mujica; Hypercholesteremia Lipid Panel; Status:Active; Requested for:27Jul2022; Perform:Lab Services - Lab To Draw (Blood Test); Due:[id number];Ordered; For:Hypercholesteremia ; Ordered By:Vargas Mujica; Lower extremity edema, Palpitations, Shortness of breath Renew: Furosemide 20 MG Oral Tablet; TAKE 1 TABLET DAILY X 7 DAYS THEN PRN EDEMA Rx By: Vargas Mujica; Dispense: 90 Days ; #:90 Tablet; Refill: 3;For: Lower extremity edema, Palpitations, Shortness of breath; JAKE = N; Verified Transmission to [facility] #4605; Last Updated By: Jeanette Gracia; 07/27/2022 8:57:39 AM Shortness of breath Renew: Albuterol Sulfate HFA 108 (90 Base) MCG/ACT Inhalation Aerosol Solution; INHALE 1 TO 2 PUFFS EVERY 6 HOURS NEEDED Rx By: Vargas Mujica; Dispense: 0 Days ; #:1 X 6.7 GM Inhaler; Refill: 1;For: Shortness of breath; JAKE = N; Verified Transmission to [facility] #0232; Last Updated By: Jeanette Gracia; 07/27/2022 8:57:35 AM Patient Discussion/Summary f/u in 6-12 mo with labs done with her specialists pt to have labs done now labs at [facility] lipid - hyperchol TSH /FREE t4 Provider [...] every ot (more content not included)... Normal [facility] Tobacco Screening.on Fall risk assessment a) No falls within the last year [facility] Medicine Work Phone: Tobacco use status CPHS b) No [facility] Medicine Work Phone: CT ABD/PEL W IVCONon [facility] CHEST 2 VIEW PA AND LATon CHEST 2 VIEW PA AND LAT Patient Name: CURLY COWART STUDY: TH CHEST 2 VIEW PA AND LAT; 03/30/2022 8:08 am INDICATION: PRE OP TESTING Z01.818: Pre-op testing. COMPARISON: 07/23/2020 ACCESSION NUMBER(S): [id number] ORDERING CLINICIAN: VARGAS MUJICA FINDINGS: PA and lateral radiographs of the chest were provided. CARDIOMEDIASTINAL SILHOUETTE: Cardiomediastinal silhouette is stable in size and configuration. LUNGS: Lungs are clear. ABDOMEN: No remarkable upper abdominal findings. BONES: No acute osseous changes. IMPRESSION: 1. No evidence of acute cardiopulmonary process. Electronically signed by: PAN URIAS MD [facility] Laboratory - Chemistry and C hemistry - challengeon 03-30-2022 TSH Qn 3.76 m[IU]/L See Below [facility] Internal Medicine Work Phone: Comment on above: Reference Range: 0.4 4 - 3.98 TSH testing is performed using different testing methodology at [facility] than at other [facility]. Direct result comparisons should only be made [...] been cleared by the cardio, pulm, and box printer, based on the most recent labs I [...] her specialists. She then developed COVID in Jul as well so things were put on [...] cleared by cardio ( Claudy), pulm (Ki), box printer (Charles) pt states they believe she will [...] was placed on hold given COVID in JUL [...] rather musc (more content not included)... Normal [facility] Radiologyon 03-30-2022 XR Chest 2 Views Normal [facility] Internal Medicine Work Phone: TSH WITH REFLEX TO FREE T4 I F ABNORMALon 03-30-2022 TSH Qn 3.76 m[IU]/L Normal 0.44 - 3.98 [facility] Comment on above: Result Comment: TSH testing is performed using different testing methodology at [facility] than at other [facility]. Direct result comparisons should only be made within the same method. Performed By: #### E SRWS #### [address] [address] Tobacco Screening.on 022 Fall risk assessment b) One or more fall s in the last year [facility] Medicine Work Phone: Tobacco use status CPHS b) No [facility] Medicine Work Phone: AMMONIAon 01-01-2022 Ammonia (P) [Moles/Vol] 33 umol/L Normal [facility] Comment on above: Result Comment: . REFERENCE VALUES DAY 1 to DAY 7 <110 DAY 8 to DAY 14 < 90 DAY 15 to ADULT 16-53 Performed By: #### A MM #### [address] [address] Ammonia, Plasmaon 01-01-2022 Ammonia (P) [Moles/Vol] 33 umol/L [facility] Medicine Work Phone: Comment on above: .REFERENCE VALUESDAY 1 to DAY 7 <110DAY 8 to DAY 14 < 90DAY 15 to ADULT 16-53 ANTI-LKMon 12-31-2021 ANTI-LKM <5.0 Normal [facility] Comment on above: Result Comment: ANTI -LKM:Liver/Kidney Microsome Type 1 Antibodies, Serum REFERENCE VALUE <=20.0 (Negative) Test Performed by: [facility] [address] [place] [address] Elementary Vocal Music Teacher: Barry Lopez M.D. Ph.D.; CLIA# [id number] Performed By: #### A NASIMM #### [facility] [address] [place] [address] ANTIMITOCHONDRIAL ABon 12-29 ANTIMITOCHONDRIAL AB Negative Normal NEGATIVE [facility] Comment on above: Performed By: #### M ITAB #### [facility] [address] [place] [address] ANTISMOOTH MUSCLE ABon 12-29 ANTISMOOTH MUSCLE AB Positive Normal NEGATIVE [facility] Comment on above: Performed By: #### E SRWS #### [place] [id number] ANTISMOOTH MUSCLE TITER 1:20 Normal [facility] Comment on above: Performed By: #### E SRWS #### [address] [address] HEPATITIS PANEL,ACUTE (HCFA) on 12-29-2021 HEPATITIS B CORE AB,IGM Non-Reactive Normal NONREACTIVE [facility] Comment on above: Result Comment: Resu lts from patients taking biotin supplements or receiving high-dose biotin therapy should be interpreted with caution due to possible interference with this test. Providers may contact their local laboratory for further information. Performed By: #### H EPA2 #### [facility] [address] [place] [address] HEPATITIS C AB Non-Reactive Normal NONREACTIVE [facility] Comment on above: Result Comment: Resu lts from patients taking biotin supplements or receiving high-dose biotin therapy should be interpreted with caution due to possible interference with this test. Providers may contact their local laboratory for further information. Performed By: #### H EPA2 #### [facility] [address] [place] [address] HEPATITIS A AB-IGM Non-Reactive Normal NONREACTIVE [facility] Comment on above: Result Comment: Biot in interference may cause falsely decreased results. Patients taking a Biotin dose of up to 5 mg/day should refrain from taking Biotin for 24 hours before sample collection. Providers may contact their local laboratory for further information. Performed By: #### H EPA2 #### [facility] [address] [place] [address] HEP.B SURFACE AG Non-Reactive Normal NONREACTIVE [facility] Comment on above: Result Comment: Biot in interference may cause falsely decreased results. Patients taking a Biotin dose of up to 5 mg/day should refrain from taking Biotin for 24 hours before sample collection. Providers may contact their local laboratory for further information. Performed By: #### H EPA2 #### [facility] [address] [place] [address] BNPon 12-28-2021 Natriuretic peptide B (Bld) [Mass/Vol] 16 pg/mL Normal 0 - 99 [facility] Comment on above: Result Comment: . <1 00 pg/mL - Heart failure unlikely 100-299 pg/mL - Intermediate probability of acute heart . failure exacerbation. Correlate with clinical . context and patient history. >=300 pg/mL - Heart Failure likely. Correlate with clinical . context and patient history. BNP testing is performed using different testing methodology at [facility] than at other [facility]. Direct result comparisons should only be made within the same method. Performed By: #### B NP2 #### [address] [address] CBC AND DIFFERENTIALon 12-28 Basophils (Bld) [#/Vol] 0.00 10*3/uL Normal 0.00 - 0.10 [facility] Comment on above: Performed By: #### E SRWS #### [address] [address] Basophils/100 WBC (Bld) 0.4 % Normal 0.0 - 2.0 [facility] Comment on above: Performed By: #### E SRWS #### [address] [address] Eosinophils (Bld) [#/Vol] 0.20 10*3/uL Normal 0.00 - 0.70 [facility] Comment on above: Performed By: #### E SRWS #### [address] [address] Eosinophils/100 WBC (Bld) 1.7 % Normal 0.0 - 6.0 [facility] Comment on above: Performed By: #### E SRWS #### [address] [address] Erythrocyte distribution width (RBC) [Ratio] 15.2 % High 11.5 - 14.5 [facility] Comment on above: Performed By: #### E SRWS #### [address] [address] Hematocrit (Bld) [Volume fraction] 43.2 % Normal 36.0 - 46.0 [facility] Comment on above: Performed By: #### E SRWS #### [address] [address] Hemoglobin (Bld) [Mass/Vol] 14.6 g/dL Normal 12.0 - 16.0 [facility] Comment on above: Performed By: #### E SRWS #### [address] [address] Lymphocytes (Bld) [#/Vol] 2.40 10*3/uL Normal 1.20 - 4.80 [facility] Comment on above: Performed By: #### E SRWS #### [address] [address] Lymphocytes/100 WBC (Bld) 25.5 % Normal 13.0 - 44.0 [facility] Comment on above: Performed By: #### E SRWS #### [address] [address] MCHC (RBC) [Mass/Vol] 33.9 g/dL Normal 32.0 - 36.0 [facility] Comment on above: Performed By: #### E SRWS #### [address] [address] MCV (RBC) [Entitic vol] 86 fL Normal 80 - 100 [facility] Comment on above: Performed By: #### E SRWS #### [address] [address] Monocytes (Bld) [#/Vol] 0.70 10*3/uL Normal 0.10 - 1.00 [facility] Comment on above: Performed By: #### E SRWS #### [address] [address] Monocytes/100 WBC (Bld) 7.1 % Normal 2.0 - 10.0 [facility] Comment on above: Performed By: #### E SRWS #### [address] [address] Neutrophils (Bld) [#/Vol] 6.00 10*3/uL Normal 1.20 - 7.70 [facility] Comment on above: Result Comment: Perc ent differential counts (%) should be interpreted in the context of the absolute cell counts (cells/L). Performed By: #### E SRWS #### [address] [address] Neutrophils/100 WBC (Bld) 65.3 % Normal 40.0 - 80.0 [facility] Comment on above: Performed By: #### E SRWS #### [address] [address] NUCLEATED RBC 0.1 /100 WBC Normal [facility] Comment on above: Performed By: #### E SRWS #### [address] [address] Platelets (Bld) [#/Vol] 253 10*3/uL Normal 150 - 450 [facility] Comment on above: Performed By: #### E SRWS #### [address] [address] RBC 5.04 x10E12/L Normal 4.00 - 5.20 [facility] Comment on above: Performed By: #### E SRWS #### [address] [address] WBC (Bld) [#/Vol] 9.3 10*3/uL Normal 4.4 - 11.3 [facility] Comment on above: Performed By: #### E SRWS #### [place] [address] [place] [address] Complete Blood Count + Diffduke golden 12-28-2021 Basophils/100 WBC (Bld) 0.4 % 0.0 - 2.0 [facility] Work Phone: Erythrocyte distribution width (RBC) [Ratio] 15.2 % above high threshold See Below [facility] Work Phone: [phone] Comment on above: Reference Range: 11. 5 - 14.5 Hematocrit (Bld) [Volume fraction] 43.2 % See Below [facility] Work Phone: [phone] Comment on above: Reference Range: 36. 0 - 46.0 Hemoglobin (Bld) [Mass/Vol] 14.6 g/dL See Below [facility] Work Phone: [phone] Comment on above: Reference Range: 12. 0 - 16.0 Lymphocytes/100 WBC (Bld) 25.5 % See Below [facility] Work Phone: [phone] Comment on above: Reference Range: 13. 0 - 44.0 MCHC (RBC) [Mass/Vol] 33.9 g/dL See Below [facility] Work Phone: Comment on above: Reference Range: 32. 0 - 36.0 MCV (RBC) [Entitic vol] 86 fL 80 - 100 [facility] Work Phone: [phone] Monocytes/100 WBC (Bld) 7.1 % 2.0 - 10.0 [facility] Work Phone: [phone] Neutrophils/100 WBC (Bld) 65.3 % See Below [facility] Work Phone: [phone] Comment on above: Reference Range: 40. 0 - 80.0 Platelets (Bld) [#/Vol] 253 10*3/uL 150 - 450 [facility] Work Phone: [phone] RBC (Bld) [#/Vol] 5.04 {x10E12/L} See Below [facility] Work Phone: [phone] Comment on above: Reference Range: 4.0 0 - 5.20 WBC (Bld) [#/Vol] 9.3 10*3/uL 4.4 - 11.3 [facility] Work Phone: Complete Blood Count + Differential 0.00 {x10E9/L} See Below [facility] Work Phone: Comment on above: Reference Range: 0.0 0 - 0.10 Complete Blood Count + Differential 0.20 {x10E9/L} See Below [facility] Work Phone: Comment on above: Reference Range: 0.0 0 - 0.70 Complete Blood Count + Differential 0.70 {x10E9/L} See Below [facility] Work Phone: Comment on above: Reference Range: 0.1 0 - 1.00 Complete Blood Count + Differential 2.40 {x10E9/L} See Below [facility] Work Phone: Comment on above: Reference Range: 1.2 0 - 4.80 Complete Blood Count + Differential 6.00 {x10E9/L} See Below [facility] Work Phone: Comment on above: Reference Range: 1.2 0 - 7.70 Percent differential counts (%) should be interpreted in the context of the absolute cell counts (cells/L). Complete Blood Count + Differential 1.7 % 0.0 - 6.0 [facility] Work Phone: Complete Blood Count + Differential 0.1 {/100_WBC} [facility] Work Phone: HEMOGLOBIN A1Con 12-28-2021 Glucose [Mass/Vol] 85 mg/dL Normal [facility] Comment on above: Performed By: #### H BA1E #### [facility] [address] [place] [address] HbA1c (Bld) [Mass fraction] 4.6 % Normal [facility] Comment on above: Result Comment: Diag nosis of Diabetes-Adults Non-Diabetic: < or = 5.6% Increased risk for developing diabetes: 5.7-6.4% Diagnostic of diabetes: > or = 6.5% . Monitoring of Diabetes Age (y) Therapeutic Goal (%) Adults: >18 <7.0 Pediatrics: 13-18 <7.5 7-12 <8.0 0- 6 7.5-8.5 [employer]. Diabetes Care 33(S1), Aug 2009. Performed By: #### H BA1E #### [address] [address] HEPATIC FUNCTION PANELon Albumin [Mass/Vol] 3.7 g/dL Normal 3.4 - 5.0 [facility] Comment on above: Performed By: #### H EPFP #### [address] [address] ALP [Catalytic activity/Vol] 130 U/L High 33 - 110 [facility] Comment on above: Performed By: #### H EPFP #### [address] [address] ALT [Catalytic activity/Vol] 143 U/L High 7 - 45 [facility] Comment on above: Result Comment: Vicenta ents treated with Sulfasalazine may generate falsely decreased results for ALT. Performed By: #### H EPFP #### [address] [address] AST [Catalytic activity/Vol] 148 U/L High 9 - 39 [facility] Comment on above: Performed By: #### H EPFP #### [address] [address] Bilirubin [Mass/Vol] 0.7 mg/dL Normal 0.0 - 1.2 [facility] Comment on above: Performed By: #### H EPFP #### [address] [address] Bilirubin.indirect [Mass/Vol] 0.1 mg/dL Normal 0.0 - 0.3 [facility] Comment on above: Performed By: #### H EPFP #### [address] [address] Protein [Mass/Vol] 7.6 g/dL Normal 6.4 - 8.2 [facility] Comment on above: Performed By: #### H EPFP #### [facility] [address] [place] [address] HEPATITIS PANEL,ACUTE (HCFA) on 12-28-2021 Lab Specimen Source Normal [facility] Comment on above: Performed By: #### H EPA2 #### [facility] [address] [place] [address] Hemoglobin A1Con 12-28-2021 Glucose [Mass/Vol] 85 mg/dL [facility] Internal Medicine Work Phone: [phone] HbA1c (Bld) [Mass fraction] 4.6 % [facility] Work Phone: Comment on above: Diagnosis of Diabete s-Adults Non-Diabetic: < or = 5.6% Increased risk for developing diabetes: 5.7-6.4% Diagnostic of diabetes: > or = 6.5%. Monitoring of Diabetes Age (y) Therapeutic Goal (%) Adults: >18 <7.0 Pediatrics: 13-18 <7.5 7-12 <8.0 0- 6 7.5-8.5 [place]. Diabetes Care 33(S1), Aug 2009. Hepatic Function Panelon Albumin BCP dye [Mass/Vol] 3.7 g/dL 3.4 - 5.0 [facility] Work Phone: ALP [Catalytic activity/Vol] 130 U/L above high threshold 33 - 110 [facility] Work Phone: [phone] ALT With P-5'-P [Catalytic activity/Vol] 143 U/L above high threshold 7 - 45 [facility] Work Phone: Comment on above: Patients treated wit h Sulfasalazine may generate falsely decreased results for ALT. AST With P-5'-P [Catalytic activity/Vol] 148 U/L above high threshold 9 - 39 [facility] Internal Medicine Work Phone: Bilirubin [Mass/Vol] 0.7 mg/dL 0.0 - 1.2 [facility] Internal Medicine Work Phone: Bilirubin.direct [Mass/Vol] 0.1 mg/dL 0.0 - 0.3 [facility] Work Phone: Protein [Mass/Vol] 7.6 g/dL 6.4 - 8.2 [facility] Work Phone: Hepatitis Panel, Acute (HCFA )on 12-28-2021 HAV IgM IA Ql Non-Reactive See Below [facility] Work Phone: Comment on above: SOURCE: Reference Ra nge: NONREACTIVE Biotin interference may cause falsely decreased results. Patients taking a Biotin dose of up to 5 mg/day should refrain from taking Biotin for 24 hours before sample collection. Providers may contact their local laboratory for further information. Hepatitis Panel, Acute (HCFA) Non-Reactive See Below [facility] Work Phone: Comment on above: Reference [...] kidney microsomal 1 Ab Qn (S) <5.0 [facility] Work Phone: Comment on above: ANTI-LKM:Liver/Kidne y Microsome Type 1 Antibodies, Serum REFERENCE VALUE <=20.0 (Negative) Test Performed by:[facility] [place] [id number] Director: Barry Lopez M.D. Ph.D.; CLIA# [id number] No Panel Informationon 12-28 Negative NEGATIVE [facility] Work Phone: 1:20 [facility] Work Phone: Positive NEGATIVE -[facility] Work Phone: 16 pg/mL 0 - 99 -[facility] Work Phone: Comment on above: . <100 pg/mL - Heart failure [id number] pg/mL - Intermediate probability of acute heart. failure exacerbation. Correlate with clinical. context and patient history. >=300 pg/mL - Heart Failure likely. Correlate with clinical. context and patient history.BNP testing is performed using different testing methodology at [facility] than at other [facility]. Direct result comparisons should only be made [...] Services - Lab To Draw (Blood Test); Due:[id number];Ordered; For:Elevated LFTs; Ordered By:Vargas Mujica; Glucose intolerance [...] Transmission to [facility]; Last Updated By: French Girls; 12/28/2021 10:29:13 AM Echocardiogram; Status:Hold For - Scheduling; Requested for:28Dec2021; Perform:[facility] ([place]); Order Comments:dr dong; Due:28Mar2022;Ordered; For:Lower extremity [...] ERYTHROCYTE 64 mm/h High 0 - 20 [facility] Comment on above: Performed By: #### E SRWS #### [address] [address] Sedimentation Rate, Erythroc yteon 12-28-2021 ESR (Bld) [Velocity] 64 mm/h above high threshold 0 - 20 [facility] Internal Medicine Work Phone: Tobacco Screening.on 022 Adult depression screening assessment No [facility] Medicine Work Phone: Fall risk assessment b) One or more fall s in the last year [facility] Medicine Work Phone: Tobacco use status [facility] b) No [facility] Medicine Work Phone: CBC AND DIFFERENTIALon 11-11 Basophils (Bld) [#/Vol] 0.00 10*3/uL Normal 0.00 - 0.10 [facility] Comment on above: Performed By: #### E SRWS #### [address] [address] Basophils/100 WBC (Bld) 0.4 % Normal 0.0 - 2.0 [facility] Comment on above: Performed By: #### E SRWS #### [address] [address] Eosinophils (Bld) [#/Vol] 0.20 10*3/uL Normal 0.00 - 0.70 [facility] Comment on above: Performed By: #### E SRWS #### [address] [address] Eosinophils/100 WBC (Bld) 2.0 % Normal 0.0 - 6.0 [facility] Comment on above: Performed By: #### E SRWS #### [address] [address] Erythrocyte distribution width (RBC) [Ratio] 15.3 % High 11.5 - 14.5 [facility] Comment on above: Performed By: #### E SRWS #### [address] [address] Hematocrit (Bld) [Volume fraction] 42.3 % Normal 36.0 - 46.0 [facility] Comment on above: Performed By: #### E SRWS #### [address] [address] Hemoglobin (Bld) [Mass/Vol] 13.9 g/dL Normal 12.0 - 16.0 [facility] Comment on above: Performed By: #### E SRWS #### [address] [address] Lymphocytes (Bld) [#/Vol] 2.20 10*3/uL Normal 1.20 - 4.80 [facility] Comment on above: Performed By: #### E SRWS #### [address] [address] Lymphocytes/100 WBC (Bld) 25.1 % Normal 13.0 - 44.0 [facility] Comment on above: Performed By: #### E SRWS #### [address] [address] MCHC (RBC) [Mass/Vol] 32.8 g/dL Normal 32.0 - 36.0 [facility] Comment on above: Performed By: #### E SRWS #### [address] [address] MCV (RBC) [Entitic vol] 87 fL Normal 80 - 100 [facility] Comment on above: Performed By: #### E SRWS #### [address] [address] Monocytes (Bld) [#/Vol] 0.60 10*3/uL Normal 0.10 - 1.00 [facility] Comment on above: Performed By: #### E SRWS #### [address] [address] Monocytes/100 WBC (Bld) 7.1 % Normal 2.0 - 10.0 [facility] Comment on above: Performed By: #### E SRWS #### [address] [address] Neutrophils (Bld) [#/Vol] 5.80 10*3/uL Normal 1.20 - 7.70 [facility] Comment on above: Result Comment: Perc ent differential counts (%) should be interpreted in the context of the absolute cell counts (cells/L). Performed By: #### E SRWS #### [address] [address] Neutrophils/100 WBC (Bld) 65.4 % Normal 40.0 - 80.0 [facility] Comment on above: Performed By: #### E SRWS #### [address] [address] NUCLEATED RBC 0.3 /100 WBC Normal [facility] Comment on above: Performed By: #### E SRWS #### [address] [address] Platelets (Bld) [#/Vol] 246 10*3/uL Normal 150 - 450 [facility] Comment on above: Performed By: #### E SRWS #### [address] [address] RBC 4.88 x10E12/L Normal 4.00 - 5.20 [facility] Comment on above: Performed By: #### E SRWS #### [address] [address] WBC (Bld) [#/Vol] 8.8 10*3/uL Normal 4.4 - 11.3 [facility] Comment on above: Performed By: #### E SRWS #### [address] [address] COMPREHENSIVE PANELon 2021 Albumin [Mass/Vol] 3.6 g/dL Normal 3.4 - 5.0 [facility] Comment on above: Performed By: #### C MP #### [address] [address] ALP [Catalytic activity/Vol] 123 U/L High 33 - 110 [facility] Comment on above: Performed By: #### C MP #### [address] [address] ALT [Catalytic activity/Vol] 109 U/L High 7 - 45 [facility] Comment on above: Result Comment: Vicenat ents treated with Sulfasalazine may generate falsely decreased results for ALT. Performed By: #### C MP #### [address] [address] Anion gap [Moles/Vol] 10 mmol/L Normal 10 - 20 [facility] Comment on above: Performed By: #### C MP #### [address] [address] AST [Catalytic activity/Vol] 107 U/L High 9 - 39 [facility] Comment on above: Performed By: #### C MP #### [address] [address] Bilirubin [Mass/Vol] 0.6 mg/dL Normal 0.0 - 1.2 [facility] Comment on above: Performed By: #### C MP #### [address] [address] Calcium [Mass/Vol] 9.3 mg/dL Normal 8.6 - 10.3 [facility] Comment on above: Performed By: #### C MP #### [address] [address] Chloride [Moles/Vol] 100 mmol/L Normal 98 - 107 [facility] Comment on above: Performed By: #### C MP #### [address] [address] Creatinine [Mass/Vol] 0.61 mg/dL Normal 0.50 - 1.05 [facility] Comment on above: Performed By: #### C MP #### [address] [address] eGFR FEMALE >90 Normal >90 [facility] Comment on above: Result Comment: CALC ULATIONS OF ESTIMATED GFR ARE PERFORMED USING THE 2020 CKD-EPI STUDY REFIT EQUATION WITHOUT THE RACE VARIABLE FOR THE IDMS-TRACEABLE CREATININE METHODS. https://jasn.asnjournals.org/content//ASN.989512 4432 Performed By: #### C MP #### [address] [address] Glucose [Mass/Vol] 150 mg/dL High 74 - 99 [facility] Comment on above: Performed By: #### C MP #### [address] [address] HCO3 (Bld) [Moles/Vol] 31 mmol/L Normal 21 - 32 [facility] Comment on above: Performed By: #### C MP #### [address] [address] Potassium [Moles/Vol] 3.4 mmol/L Low 3.5 - 5.3 [facility] Comment on above: Performed By: #### C MP #### [address] [address] Protein [Mass/Vol] 7.4 g/dL Normal 6.4 - 8.2 [facility] Comment on above: Performed By: #### C MP #### [address] [address] Sodium [Moles/Vol] 138 mmol/L Normal 136 - 145 [facility] Comment on above: Performed By: #### C MP #### [address] [address] Urea nitrogen [Mass/Vol] 11 mg/dL Normal 6 - 23 [facility] Comment on above: Performed By: #### C MP #### [address] [address] Complete Blood Count + Diffduke golden 11-11-2021 Basophils/100 WBC (Bld) 0.4 % 0.0 - 2.0 [facility] Work Phone: Erythrocyte distribution width (RBC) [Ratio] 15.3 % above high threshold See Below -[facility] Work Phone: Comment on above: Reference Range: 11. 5 - 14.5 Hematocrit (Bld) [Volume fraction] 42.3 % See Below [facility] Work Phone: Comment on above: Reference Range: 36. 0 - 46.0 Hemoglobin (Bld) [Mass/Vol] 13.9 g/dL See Below [facility] Work Phone: Comment on above: Reference Range: 12. 0 - 16.0 Lymphocytes/100 WBC (Bld) 25.1 % See Below [facility] Work Phone: [phone] Comment on above: Reference Range: 13. 0 - 44.0 MCHC (RBC) [Mass/Vol] 32.8 g/dL See Below [facility] Work Phone: Comment on above: Reference Range: 32. 0 - 36.0 MCV (RBC) [Entitic vol] 87 fL 80 - 100 [facility] Work Phone: [phone] Monocytes/100 WBC (Bld) 7.1 % 2.0 - 10.0 [facility] Work Phone: [phone] Neutrophils/100 WBC (Bld) 65.4 % See Below [facility] Work Phone: Comment on above: Reference Range: 40. 0 - 80.0 Platelets (Bld) [#/Vol] 246 10*3/uL 150 - 450 [facility] Work Phone: [phone] RBC (Bld) [#/Vol] 4.88 {x10E12/L} See Below [facility] Work Phone: [phone] Comment on above: Reference Range: 4.0 0 - 5.20 WBC (Bld) [#/Vol] 8.8 10*3/uL 4.4 - 11.3 [facility] Work Phone: [phone] Complete Blood Count + Differential 0.00 {x10E9/L} See Below [facility] Work Phone: [phone] Comment on above: Reference Range: 0.0 0 - 0.10 Complete Blood Count + Differential 0.20 {x10E9/L} See Below [facility] Work Phone: Comment on above: Reference Range: 0.0 0 - 0.70 Complete Blood Count + Differential 0.60 {x10E9/L} See Below [facility] Work Phone: Comment on above: Reference Range: 0.1 0 - 1.00 Complete Blood Count + Differential 2.20 {x10E9/L} See Below [facility] Work Phone: Comment on above: Reference Range: 1.2 0 - 4.80 Complete Blood Count + Differential 5.80 {x10E9/L} See Below [facility] Work Phone: Comment on above: Reference Range: 1.2 0 - 7.70 Percent differential counts (%) should be interpreted in the context of the absolute cell counts (cells/L). Complete Blood Count + Differential 2.0 % 0.0 - 6.0 [facility] Work Phone: [phone] Complete Blood Count + Differential 0.3 {/100_WBC} [facility] Work Phone: Laboratory - Chemistry and C hemistry - challengeon 11-11-2021 Albumin BCP dye [Mass/Vol] 3.6 g/dL 3.4 - 5.0 [facility] Work Phone: ALP [Catalytic activity/Vol] 123 U/L above high threshold 33 - 110 [facility] Work Phone: ALT With P-5'-P [Catalytic activity/Vol] 109 U/L above high threshold 7 - 45 [facility] Work Phone: Comment on above: Patients treated wit h Sulfasalazine may generate falsely decreased results for ALT. Anion gap [Moles/Vol] 10 mmol/L 10 - 20 [facility] Work Phone: AST With P-5'-P [Catalytic activity/Vol] 107 U/L above high threshold 9 - 39 [facility] Work Phone: Bilirubin [Mass/Vol] 0.6 mg/dL 0.0 - 1.2 [facility] Internal [facility] Work Phone: Calcium [Mass/Vol] 9.3 mg/dL 8.6 - 10.3 [facility] Work Phone: Chloride [Moles/Vol] 100 mmol/L 98 - 107 [facility] Work Phone: CO2 [Moles/Vol] 31 mmol/L 21 - 32 [facility] Work Phone: Creatinine [Mass/Vol] 0.61 mg/dL See Below [facility] Work Phone: Comment on above: Reference Range: 0.5 0 - 1.05 Glucose [Mass/Vol] 150 mg/dL above high threshold 74 - 99 [facility] Work Phone: Potassium [Moles/Vol] 3.4 mmol/L below low threshold 3.5 - 5.3 [facility] Work Phone: Protein [Mass/Vol] 7.4 g/dL 6.4 - 8.2 [facility] Work Phone: Sodium [Moles/Vol] 138 mmol/L 136 - 145 [facility] Work Phone: TSH Qn 2.91 m[IU]/L See Below [facility] Work Phone: Comment on above: Reference Range: 0.4 4 - 3.98 TSH testing is performed using different testing methodology at [facility] than at [facility]. Direct result comparisons should only be made within the same method. Urea nitrogen [Mass/Vol] 11 mg/dL 6 - 23 [facility] Work Phone: No Panel Informationon 11-11 >90 >90 [facility] Work Phone: Comment on above: CALCULATIONS OF COLETTE MATED GFR ARE PERFORMED USING THE 2020 CKD-EPI STUDY REFIT EQUATION WITHOUT THE RACE VARIABLE FOR THE IDMS-TRACEABLE CREATININE METHODS.https://jasn.asnjournals.org/content/early// N.2438710461 Office Visit (Internal Medic ine)on 11-11-2021 Follow-up [...] depression; JAKE = N; Verified Transmission to [facility]; Last Updated By: French Girls; 11/11/2021 9:20:17 AM Costochondral pain Start: predniSONE 20 MG Oral Tablet; TAKE 1 TABLET DAILY DIRECTED Rx By: Talya Stevens; Dispense: 7 Days ; #:7 Tablet; Refill: 0;For: Costochondral pain; JAKE = N; Verified Transmission to [facility]; Last Updated By: French Girls; 11/11/2021 9:20:16 AM Comprehensive Metabolic Panel; Status:In [...] Status:Resulted - Requires Verification; Done: 11Nov2021 09:29AM Performed:[facility]; Due:09Feb2022;Ordered; For:Lower extremity edema, Shortness of [...] [facility]; Last Updated By: Jeanette Gracia; 11/11/2021 9:20:21 AM Patient Discussion/Summary FUOV as [...] CO SWELLING AND EDEMA History of Present [id number] YOF presents with concerns of pain above [...] Endocrine: thyroid disorder. 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 Normal [employer] TSH WITH REFLEX TO FREE T4 I F ABNORMALon 11-11-2021 TSH Qn 2.91 m[IU]/L Normal 0.44 - 3.98 [facility] Comment on above: Result Comment: TSH testing is performed using different testing methodology at [facility] than at other [facility]. Direct result comparisons should only be made within the same method. Performed By: #### T HYDS #### [id number] [place] [address] Tobacco Screening.on 022 Fall risk assessment b) One or more fall s in the last year [facility] Work Phone: Tobacco use status [facility] b) No [facility] Work Phone: Tobacco Screening.on 021 Fall risk assessment a) No falls within the last year [facility] Work Phone: Tobacco use status [facility] b) No [facility] Work Phone: Tobacco Screening.on Fall risk assessment a) No falls within the last year [facility] Work Phone: Tobacco use status [facility] b) No [facility] Work Phone: IO EKG Electrocardiogram- 12 Leadon 07-28-2021 EKG study NORMAL SINUS RYTHMN, POSSIBLE L ATRIAL ENLARGEMENT, BORDERLINE ECG [facility] Work Phone: IO EKG Electrocardiogram- 12 Lead See Scanned Document [facility] Work Phone: Tobacco Screening.on Fall risk assessment a) No falls within the last year [facility] Work Phone: Tobacco use status [facility] b) No [facility] Work Phone: Cult, Urineon 07-23-2021 Bacteria identified Cx Nom (U) [facility] Work Phone: Laboratory - Coagulationon 1 09-22-2020 INR Coag (PPP) [Relative time] 1.1 {INR} 0.9 - 1.1 [facility] Work Phone: PT Coag (PPP) [Time] 13.2 s See Below [facility] Work Phone: Comment on above: Reference Range: 10. 1 - 13.3 MRSA Screenon 07-23-2021 Staphylococcus sp identified Org specific cx Nom (Unsp spec) [facility] Work Phone: Radiologyon 07-23-2021 XR Chest 2 Views Normal [facility] Work Phone: Urinalysison 07-23-2021 Color (U) Yellow See Below [facility] Work Phone: Comment on above: Reference Range: STR AW,YELLOW Glucose Ql (U) Negative NEGATIVE [facility] Work Phone: Ketones Ql (U) Negative NEGATIVE [facility] Work Phone: Leukocyte esterase Test strip Ql (U) Negative NEGATIVE [facility] Work Phone: [phone] pH (U) 7.0 [pH] 5.0 - 8.0 [facility] Work Phone: Protein (U) [Mass/Vol] Negative NEGATIVE [facility] Work Phone: RBC (U) [#/Vol] Negative NEGATIVE [facility] Work Phone: Specific gravity (U) [Rel density] 1.006 1 See Below [facility] Work Phone: Comment on above: Reference Range: 1.0 05 - 1.035 Urinalysis Negative NEGATIVE [facility] Work Phone: Urinalysis <2.0 0.0 - 1.9 [facility] Work Phone: [phone] Urinalysis HAZY CLEAR [facility] Work Phone: Laboratory - Chemistry and C hemistry - challengeon 05-25-2021 Creatinine (Body fld) [Mass/Vol] 51.0 mg/dL [facility] Work Phone: Comment on above: A urine creatinine r esult >= 20 mg/dL is considered valid without suspicion of dilution. Samples with results below this range will automatically reflex to specific gravity testing to verify specimen integrity. Laboratory - Drug toxicology on 05-25-2021 1-Hydroxymidazolam Confirm (U) [Mass/Vol] <25 Cutoff <25 [facility] Work Phone: 9-Bmiahovlef-7,5-Dime thyl-3,3-Diphenylpyrr olidine (EDDP) Confirm (U) [Mass/Vol] <25 Cutoff <25 [facility] Work Phone: Comment on above: The [...] (6-RAINE) Confirm (U) [Mass/Vol] <25 Cutoff <25 [facility] Work Phone: 7-Aminoclonazepam Confirm (U) [Mass/Vol] <25 Cutoff <25 [facility] Work Phone: Alpha hydroxyalprazolam Confirm (U) [Mass/Vol] <25 Cutoff <25 [facility] Work Phone: ALPRAZolam Confirm (U) [Mass/Vol] <25 Cutoff <25 [facility] Work Phone: Amphetamines Screen Ql (U) Negative NEGATIVE [facility] Work Phone: Comment on above: CUTOFF LEVEL: 500 NG /ML Cross-reactivity has been reported with high concentrations of the following drugs: buproprion, chloroquine, chlorpromazine, ephedrine, mephentermine, fenfluramine, phentermine, phenylpropanolamine, pseudoephedrine, and propranolol. Barbiturates Screen Ql (U) Negative NEGATIVE [facility] Work Phone: Comment on above: CUTOFF LEVEL: 200 NG /ML Benzoylecgonine Screen Ql (U) Negative NEGATIVE [facility] Work Phone: Comment on above: CUTOFF LEVEL: 150 NG /ML Cannabinoids Screen Ql (U) Negative NEGATIVE [facility] Work Phone: Comment on above: CUTOFF LEVEL: 50 NG/ ML chlordiazePOXIDE Confirm (U) [Mass/Vol] <25 Cutoff <25 [facility] Internal [facility] Work Phone: clonazePAM Confirm (U) [Mass/Vol] <25 Cutoff <25 [facility] Work Phone: Codeine Confirm (U) [Mass/Vol] <50 Cutoff <50 [facility] Work Phone: diazePAM Confirm (U) [Mass/Vol] <25 Cutoff <25 [facility] Work Phone: fentaNYL Confirm (U) [Mass/Vol] <2.5 Cutoff<2.5 [facility] Work Phone: HYDROcodone Confirm (U) [Mass/Vol] <25 Cutoff <25 [facility] Work Phone: HYDROmorphone Confirm (U) [Mass/Vol] <25 Cutoff <25 [facility] Work Phone: LORazepam Confirm (U) [Mass/Vol] <25 Cutoff <25 [facility] Work Phone: Methadone Confirm (U) [Mass/Vol] <25 Cutoff <25 [facility] Work Phone: Midazolam Confirm (U) [Mass/Vol] <25 Cutoff <25 [facility] Work Phone: Morphine Confirm (U) [Mass/Vol] <50 Cutoff <50 [facility] [facility] Internal [facility] Work Phone: Nordiazepam Confirm (U) [Mass/Vol] <25 Cutoff <25 [facility] Internal [facility] Work Phone: Norfentanyl Confirm (U) [Mass/Vol] <2.5 Cutoff<2.5 [facility] Internal [facility] Work Phone: Comment on above: The [...] Norhydrocodone Confirm (U) [Mass/Vol] <25 Cutoff <25 [facility] Work Phone: Noroxycodone Confirm (U) [Mass/Vol] <25 Cutoff <25 [facility] Work Phone: Nortramadol (U) [Mass/Vol] <50 Cutoff <50 [facility] Work Phone: Comment on above: [...] Oxazepam Confirm (U) [Mass/Vol] <25 Cutoff <25 [facility] Work Phone: oxyCODONE Confirm (U) [Mass/Vol] <25 Cutoff <25 [facility] Work Phone: oxyMORphone Confirm (U) [Mass/Vol] <25 Cutoff <25 [facility] Work Phone: Comment on above: [...] Phencyclidine Ql (U) Negative NEGATIVE [facility] Work Phone: Comment on above: CUTOFF LEVEL: 25 NG/ ML Cross-reactivity has been reported with dextromethorphan. Temazepam Confirm (U) [Mass/Vol] <25 Cutoff <25 [facility] Work Phone: Comment on above: [...] traMADol Confirm (U) [Mass/Vol] <50 Cutoff <50 [facility] Work Phone: Zolpidem (U) [Mass/Vol] <25 Cutoff <25 [facility] Work Phone: No Panel Informationon 05-25 <25 Cutoff <25 [facility] Work Phone: Comment on above: The [...] high complexity clinical laboratory testing. SEE BELOW [facility] Work Phone: Comment on above: Drug screen [...] a) No falls within the last year [facility] Work Phone: Tobacco use status CPHS b) No [facility] Work Phone: XR Chest PA and Lateralon IMPRESSION: No acute radiographic abnormality. Track Oiler: YUVAL Transcribe Date/Time: Dec 19 2020 3:24P Dictated by : TROY CHUNG MD This examination was interpreted and the report reviewed and electronically signed by: TROY CHUNG MD on Dec 19 2020 3:33PM [facility] DIVISION OF RADIOLOGY * * *Final [...] soft tissues: Unremarkable. DIVISION OF RADIOLOGY Provider, [facility] * * *Final Report* * [...] Unremarkable. IMPRESSION IMPRESSION: No acute radiographic abnormality. Track Oiler: YUVAL Transcribe Date/Time: Dec 19 2020 3:24P Dictated by : TROY CHUNG MD This examination was interpreted and the report reviewed and electronically signed by: TROY CHUNG MD on Dec 19 2020 3:33PM EST [facility] Radiology Study observation (narrative) [facility] XR Chest PA and LateralOrder ed By: [facility]cf Provider on 12-19-2020 [facility] NM CARDIAC PERF STRESS/EXERC ISEon 07-13-2020 NM CARDIAC PERF STRESS/EXERCISE * * *Final Report* * * DATE OF EXAM: Jul 13 2020 3:09PM FERNANDA 0004 - GA CARDIAC PERF STRESS/EXERCISE / PROCEDURE REASON: multiple [...] was performed on [..].10/11/2016. Nuclear Med Report:1-Day [id number] Exercise Stress Gated SPECT: Myocardial perfusion imaging was performed at rest 30 to 60 minutes following the IV injection of Tc-99m tetrofosmin. One minute prior to peak exercise, the patient was injected IV with Tc-99m tetrofosmin. Gated post stress tomographic imaging was performed 10 to 20 minutes later. See administered doses below. [facility] Date of service: 07/13/2020 1:17:42 PM Ordering [...] of scarring. Final ------ Stress ECG Report: [facility] Date of service: 07/13/2020 1:17:42 PM Ordering physician: TOMASZ GARAY Specialist: Stacey Antonio Metallurgical Analyst: Yohana Okeefe Stress ECG interpreting physician: Mackenzie [...] was 6.1. The double [place] [address]. Peak heart rate was 181 bpm and [...] (HRR): 12 bpm Rate Pressure Product (RPP): 16569 Bhakta Treadmill Score: 4.8 Reason for test [...] 2018 for ventricular tachycardia Final ------ Stress Vp Design Report: [facility] Date of service: 07/13/2020 1:17:42 PM Supervising physician: Brooks Diaz MD PATIENT: Name: MS. CURLY COWART Age: 35 years Gender: F The supervising physician was present during the stress procedure. Final Track Oiler: YURY Transcribe Date/Time: Jul 13 2020 1:17P Dictated by : MACKENZIE PERKINS DO This examination was interpreted and the report reviewed and electronically signed by: MACKENZIE PERKINS DO on Jul 13 2020 5:22PM EST [id number] [facility] PROGRESSon 07-13-2020 PROGRESS HNO ID: [id number] Author: Mackenzie Wakefield) BRENDA Hernandez Service: Nuclear Medicine Author Type: Clinical Automotive Starter Repairer Type: Progress Notes Filed: 07/13/2020 2:24 PM [...] POST EXAM PIV STATUS: Discontinued PROCEDURE TYPE: GA Stress: 15.8mCi Uy03y-Nsmkxjs was administered IV for Rest Imaging at 12:54 by BRENDA Stock. 49.4 mCi Bz94q-Nnbzxjx was administered IV for Stress Imaging at 14:15 by BRENDA Stock. PATIENT DISCHARGED TO: Ambulatory patient, left GA department area. A Diagnostic radioactive procedure has taken place, with no further precautions necessary other than routine body substance precautions. More information regarding radiation safety can be found using this link: [email or web address] [email or web address] SIGNATURE: BRENDA Stock PATIENT NAME: Curly Jules Jesika DATE: July 13, 2020 TIME: 2:20 PM PAGER/CONTACT #: [facility] CURLY COWART ([id number]) 1985 F Date Time Provider Department 07/10/20 [...] Fully Assessed Reason for Visit: Reminder Call [[id number]] Prescriptions as of 07/10/2020 Sig: VENLAFAXINE ER [...] Class III, BMI >= 40 [E66.01] 09/19/2018 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] 09/19/2018 Ankylosing spondylitis (HCC) [...] Encounter Status:Closed by YOHANA OKEEFE on 07/10/20 [facility] U Drug Screenon 01-02-2019 U Amph Scr Negative Normal Negative [facility] Comment on above: Performed By: #### 2 [id number] #### [facility] [employer] [address] [place] [address] U Radha Scr Negative Normal Negative [facility] Comment on above: Performed By: #### 2 [id number] #### [facility] [employer] [address] [place] [address] U Benzodia Scr Negative Normal Negative [facility] Comment on above: Performed By: #### 2 [id number] #### [facility] [employer] [address] [place] [address] U Cannab Scr Negative Normal Negative [facility] Comment on above: Performed By: #### 2 [id number] #### [facility] [employer] [address] [place] [address] U Cocaine Scr Negative Normal Negative [facility] Comment on above: Performed By: #### 2 [id number] #### [facility] [employer] [address] [place] [address] U Opiate Scr Negative Normal Negative [facility] Comment on above: Performed By: #### 2 [id number] #### [facility] [employer] [address] [place] [address] U PCP Scr Negative Normal Negative [facility] Comment on above: Performed By: #### 2 [id number] #### [facility] [employer] [address] [place] [id number] BNP.on 11-21-2018 Natriuretic peptide B mass conc (Bld) 17 pg/mL Normal <=500 [facility] Comment on above: Result Comment: Noti ce: [...] patient's BNP level. Performed By: #### C [id number] #### [facility] [employer] [address] [place] [address] CMPon 11-21-2018 Albumin mass conc 3.8 g/dL Normal 3.4-5.0 [facility] Comment on above: Performed By: #### 2 [id number] #### [facility] [employer] [address] [place] [address] Albumin/Globulin mass ratio 1.1 {ratio} Normal 1.1-1.9 [facility] Comment on above: Performed By: #### 2 [id number] #### [facility] [employer] [address] [place] [address] Alk Phos 112 Int._Unit/L High 33-110 [facility] Comment on above: Performed By: #### 2 [id number] #### [facility] [employer] [address] [place], [place] [id number] ALT enzyme act/vol 123 Int._Unit/L High 7-[address] [facility] Comment on above: Performed By: #### 2 [id number] #### [facility] [employer] [address] [place], [place] [id number] Anion gap molar conc 8 mmol/L Low 10-20 [facility] Comment on above: Performed By: #### 2 [id number] #### [facility] [employer] [address] [place], [place] [id number] AST enzyme act/vol 75 Int._Unit/L High 9-39 [facility] Comment on above: Performed By: #### 2 [id number] #### [facility] [employer] [address] [place] [address] Bili Total 0.39 mg/dL Normal 0.00-1.20 [facility] Comment on above: Performed By: #### 2 [id number] #### [facility] [employer] [address] [place] [address] Calcium mass conc 9.0 mg/dL Normal 8.6-10.3 [facility] Comment on above: Performed By: #### 2 [id number] #### [facility] [employer] [address] [place] [address] Chloride molar conc 103 mmol/L Normal 98-107 [facility] Comment on above: Performed By: #### 2 [id number] #### [facility] [employer] [address] [place] [address] CO2 molar conc 30.0 mmol/L Normal 21.0-32.0 [facility] Comment on above: Performed By: #### 2 365872 #### [facility] [employer] [address] [place] [address] Creatinine mass conc 0.6 mg/dL Normal 0.5-1.1 [facility] Comment on above: Performed By: #### 2 616446 #### [facility] [employer] [address] [place] [address] Globulin mass conc (S) 3.0 g/dL Normal 2.0-4.0 [facility] Comment on above: Performed By: #### 2 [id number] #### [facility] [employer] [address] [place] [address] Glucose mass conc 108 mg/dL High 70-99 [facility] Comment on above: Performed By: #### 2 977396 #### [facility] [employer] [address] [place] [address] Potassium molar conc 4.3 mmol/L Normal 3.5-5.3 [facility] Comment on above: Performed By: #### 2 073372 #### [facility]KE [employer] [facility] [place] [address] Protein mass conc 7.2 g/dL Normal 6.4-8.2 [facility] Comment on above: Performed By: #### 2 [id number] #### [facility] [employer] [address] [place] [address] Sodium molar conc 137 mmol/L Normal 136-145 [facility] Comment on above: Performed By: #### 2 [id number] #### [facility] [employer] [facility] [place] [address] Urea nitrogen mass conc 12 mg/dL Normal 6-23 [facility] Comment on above: Performed By: #### 2 [id number] #### [facility] [employer] [facility] [place] [address] Urea nitrogen/Creatinine mass ratio 20.0 ratio Normal 5.4-30.0 [facility] Comment on above: Performed By: #### 2 [id number] #### [facility] [employer] [facility] [place] [address] XR Chest 2 Viewson 9 XR Chest 2 Views Exam Date/Time: 11/21/2018 10:02 EDT Reason for Exam: Chest pain Report STUDY: XR Chest 2 Views; 11/21/2018 10:02 am INDICATION: Chest pain. COMPARISON: None. ACCESSION NUMBER(S): [id number] ORDERING CLINICIAN: Vargas Mujica FINDINGS: PA and lateral views of the chest were obtained. No focal infiltrate, pleural effusion or pneumothorax is identified. The cardiac silhouette is within normal limits for size. IMPRESSION: No focal infiltrate or pneumothorax. FINAL REPORT Dictated: 11/21/2018 11:06 am Douglas Franklin MD Signed (Electronic Signature): 11/21/2018 11:06 am Signed by: Douglas Franklin MD Technologist: Normal [facility] eGFRon 11-21-2018 GFR/1.73 sq M predicted among non-blacks MDRD vol rate/area (S/P/Bld) mL/min/{1.73_m2} [facility] Comment on above: Order Comment: Order added by Discern Expert. Performed By: #### 1 [id number] #### [facility] [employer] [address] [place] [address] Basic Panelon 09-19-2018 Creatinine mass conc 0.76 mg/dL Normal 0.51-0.95 [facility] Comment on above: Performed By: #### P 8 #### [facility] [address] [place], [place] [address] Calcium mass conc 8.5 mg/dL Normal 8.5-10.1 [facility] Comment on above: Performed By: #### P 8 #### [facility] [address] [place], [place] [address] Glucose mass conc 97 mg/dL Normal 70-99 [facility] Comment on above: Performed By: #### P 8 #### [facility] [address] [place], [place] [address] Urea nitrogen mass conc 8 mg/dL Normal 7-18 [facility] Comment on above: Performed By: #### P 8 #### [facility] [address] [place] [address] Anion gap molar conc 12 mmol/L Normal 8-16 [facility] Comment on above: Performed By: #### P 8 #### [facility] [address] [place] [address] CO2 molar conc 24 mmol/L Normal 21-32 [facility] Comment on above: Performed By: #### P 8 #### [facility] [address] [place], [place] [address] Chloride molar conc 109 mmol/L High 98-107 [facility] Comment on above: Performed By: #### P 8 #### [facility] [address] [place] [address] Potassium molar conc 3.7 mmol/L Normal 3.5-5.1 [facility] Comment on above: Performed By: #### P 8 #### [facility] [address] [place] [address] Sodium molar conc 141 mmol/L Normal 136-145 [facility] Comment on above: Performed By: #### P 8 #### [facility] [address] [place] [address] Hemogramon 09-19-2018 Erythrocyte distribution width Ratio (RBC) 14.2 % Normal 11.7-14.4 [facility] Comment on above: Performed By: #### C BC1 #### [facility] [address] [place] [address] Hematocrit Volume Fraction (Bld) 42.3 % Normal 34.1-44.9 [facility] Comment on above: Performed By: #### C BC1 #### [facility] [address] [place] [address] Hemoglobin mass conc (Bld) 13.6 g/dL Normal 11.2-15.7 [facility] Comment on above: Performed By: #### C BC1 #### [facility] [address] [place] [address] MCH Entitic mass (RBC) 27.9 pg Normal 25.6-32.2 [facility] Comment on above: Performed By: #### C BC1 #### [facility] [address] [place] [address] MCHC mass conc (RBC) 32.2 % Normal 31.6-34.8 [facility] Comment on above: Performed By: #### C BC1 #### [place] [address] MCV Entitic volume (RBC) 86.7 fL Normal 79.4-94.8 [facility] Comment on above: Performed By: #### C BC1 #### [facility] [address] [place] [address] Platelet mean volume Entitic volume (Bld) 11.1 fL Normal 9.4-12.3 [facility] Comment on above: Performed By: #### C BC1 #### [facility] [address] [place] [address] Platelets #/vol (Bld) 205 thou/cmm Normal 182-369 [facility] Comment on above: Performed By: #### C BC1 #### [facility] [address] [place] [address] RBC #/vol (Bld) 4.88 mil/cmm Normal 3.93-5.22 [facility] Comment on above: Performed By: #### C BC1 #### [facility] [address] [place] [address] RDW SD 44.6 fl Normal 36.4-46.3 [facility] Comment on above: Performed By: #### C BC1 #### [facility] [address] [place] [address] WBC #/vol (Bld) 9.68 thou/cmm Normal 3.98-10.04 [facility] Comment on above: Performed By: #### C BC1 #### [facility] [address] [place] [address] LEVEL 1 DEPT VISIT/EST MRIon 09-19-2018 Protein mass conc Performed at [facility] APPROVED BY: Cristobal Suárez MD Exam: Attempted MRI on 09/19/2018 15:17. Technique: The patient was scheduled for an MRI. An MRI was attempted per physician order. The patient does not fit into the scanner. IMPRESSION: Unable to perform MRI. Normal [facility] MDRD GFRon 09-19-2018 GFR/1.73 sq M predicted among non-blacks MDRD vol rate/area (S/P/Bld) mL/min/{1.73_m2} Normal >60mL/min/1.7 3m2 [facility] Comment on above: Result Comment: If t he patient is , multiply the result by 1.210. Performed By: #### G FR #### [facility] [address] [place] [address] Magnesium Bloodon 09-19-2018 Magnesium mass conc 2.0 mg/dL Normal 1.6-2.6 [facility] Comment on above: Performed By: #### M AG #### [facility] [address] [place], [place] [address] Vital Signs Date Time Vital Sign Value Performing Clinician Facility 01-28-2025 14:16-0400 Body mass index (BMI) [Ratio] 54.72 kg/m2 Johanny Marmolejo APRN.CNP Work Phone: [facility] 01-28-2025 14:16040 Body weight 153.77 kg Johanny Marmolejo APRN.CNP Work Phone: [facility] 01-28-2025 14:16-0400 Diastolic blood pressure 78 mm[Hg] Johanny Marmolejo APRN.CNP Work Phone: [facility] 01-28-2025 14:16-0400 Heart rate 72 /min Johanny Marmolejo APRN.HIGH SCHOOL SPECIAL EDUCATION TEACHER Work Phone: [facility] 01-28-2025 14:16-0400 SaO2% (BldA) [Mass fraction] 98 % Johanny Marmolejo APRN.HIGH SCHOOL SPECIAL EDUCATION TEACHER Work Phone: [facility] 01-28-2025 14:16-0400 Systolic blood pressure 128 mm[Hg] Johanny Marmolejo APRN.HIGH SCHOOL SPECIAL EDUCATION TEACHER Work Phone: [facility] 11-06-2024 15:19-0400 Body height 170.2 cm Vargas [place] PA-C Work Phone: [facility] 11-06-2024 15:19-0400 Body mass index (BMI) [Ratio] 55.26 kg/m2 Vargas [place] PA-C Work Phone: [facility] 11-06-2024 15:19-0400 Body weight 160.03 kg Vargas [place] PA-C Work Phone: [facility] 11-06-2024 15:19-0400 Diastolic blood pressure 88 mm[Hg] Vargas [place] PA-C Work Phone: [facility] 11-06-2024 15:19-0400 Heart rate 91 /min Vargas Guanako PA-C Work Phone: [facility] 11-06-2024 15:19-0400 Systolic blood pressure 142 mm[Hg] Vargas Guanako PA-C Work Phone: [facility] 07-11-2024 08:46-0500 Body height 170.2 cm Vargas Guanako PA-C Work Phone: [facility] 07-11-2024 08:46-0500 Body mass index (BMI) [Ratio] 53.41 kg/m2 Vargas Guanako PA-C Work Phone: [facility] 07-11-2024 08:46-0500 Body weight 154.68 kg Vargas Guanako PA-C Work Phone: [facility] 07-11-2024 08:46-0500 Diastolic blood pressure 85 mm[Hg] Vargas Guanako WATKINS-C Work Phone: [facility] 07-11-2024 08:46-0500 Heart rate 79 /min Vargas Guanako PA-C Work Phone: [facility] 07-11-2024 08:46-0500 Systolic blood pressure 129 mm[Hg] Vargas Guanako WATKINS-C Work Phone: [facility] 06-07-2024 16:11-0400 Body mass index (BMI) [Ratio] 54.02 kg/m2 Chloé Brigotti 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 Work Phone: [facility] 06-07-2024 16:11-0400 Body temperature 97.2 [degF] Chloé Brigotti 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 Work Phone: [facility] 06-07-2024 16:11-0400 Body weight 151.8 kg Chloé Brigotti 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 Work Phone: [facility] 06-07-2024 16:11-0400 Diastolic blood pressure 86 mm[Hg] Chloé Brigotti 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 Work Phone: [facility] 06-07-2024 16:11-0400 Heart rate 98 /min Chloé Brigotti 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 Work Phone: [facility] 06-07-2024 16:11-0400 Respiratory rate 16 /min Chloé Brigotti 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 Work Phone: [facility] 06-07-2024 16:11-0400 SaO2% (BldA) [Mass fraction] 99 % Chloé Brigotti 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 Work Phone: [facility] 06-07-2024 16:11-0400 Systolic blood pressure 128 mm[Hg] Chloé Brigotti 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 Work Phone: [facility] 04-24-2024 15:24-0400 Body mass index (BMI) [Ratio] 52.77 kg/m2 Delfin Jain APRN.HIGH SCHOOL SPECIAL EDUCATION TEACHER Work Phone: [facility] 04-24-2024 15:24-0400 Body temperature 98.49 [degF] Delfin Jain APRN.HIGH SCHOOL SPECIAL EDUCATION TEACHER Work Phone: [facility] 04-24-2024 15:24-0400 Body weight 148.3 kg Delfin Jain APRN.HIGH SCHOOL SPECIAL EDUCATION TEACHER Work Phone: [facility] 04-24-2024 15:24-0400 Diastolic blood pressure 86 mm[Hg] Delfin Jain APRN.HIGH SCHOOL SPECIAL EDUCATION TEACHER Work Phone: [facility] 04-24-2024 15:24-0400 Heart rate 88 /min Delfin Jain APRN.HIGH SCHOOL SPECIAL EDUCATION TEACHER Work Phone: [facility] 04-24-2024 15:24-0400 Respiratory rate 20 /min Delfin Jain APRN.HIGH SCHOOL SPECIAL EDUCATION TEACHER Work Phone: [facility] 04-24-2024 15:24-0400 SaO2% (BldA) [Mass fraction] 98 % Delfin Jain APRN.HIGH SCHOOL SPECIAL EDUCATION TEACHER Work Phone: [facility] 04-24-2024 15:24-0400 Systolic blood pressure 132 mm[Hg] Delfin Jain APRN.HIGH SCHOOL SPECIAL EDUCATION TEACHER Work Phone: [facility] 02-28-2024 13:20-0400 Body height 170.2 cm Vargas Mujica PA-C Work Phone: [facility] 02-28-2024 13:20-0400 Body mass index (BMI) [Ratio] 51.22 kg/m2 Vargas Mujica PA-C Work Phone: [facility] 02-28-2024 13:20-0400 Body weight 148.33 kg Vargas Mujica PA-C Work Phone: [facility] 02-28-2024 13:20-0400 Diastolic blood pressure 77 mm[Hg] Vargas WATKINS-Rina Work Phone: [facility] 02-28-2024 13:20-0400 Heart rate 61 /min Vargas WATKINS-Rina Work Phone: [facility] 02-28-2024 13:20-0400 Systolic blood pressure 111 mm[Hg] Vargas WATKINS-Rina Work Phone: [facility] 10-19-2023 12:00-0500 Body temperature 98.1 [degF] [facility] 10-19-2023 12:00-0500 Diastolic blood pressure 98 mm[Hg] [facility] 10-19-2023 12:00-0500 Heart rate 84 /min [facility] 10-19-2023 12:00-0500 Respiratory rate 18 /min [facility] 10-19-2023 12:00-0500 SaO2% (BldA) [Mass fraction] 99 % [facility] 10-19-2023 12:00-0500 Systolic blood pressure 132 mm[Hg] [facility] 10-19-2023 09:13-0500 Body height 165.1 cm [facility] 10-19-2023 09:13-0500 Body mass index (BMI) [Ratio] 51.4 kg/m2 [facility] 10-19-2023 09:13-0500 Body weight 140.21 kg [facility] 10-03-2023 13:24-0500 Diastolic blood pressure 70 mm[Hg] [facility] 10-03-2023 13:24-0500 Heart rate 62 /min [facility] 10-03-2023 13:24-0500 Systolic blood pressure 148 mm[Hg] [facility] 10-03-2023 09:51-0500 Body mass index (BMI) [Ratio] 51.2 kg/m2 [facility] 10-03-2023 09:51-0500 Body temperature 98.4 [degF] [facility] 10-03-2023 09:51-0500 Body weight 139.88 kg [facility] 10-03-2023 09:51-0500 Respiratory rate 18 /min [facility] 10-03-2023 09:51-0500 SaO2% (BldA) [Mass fraction] 100 % [facility] 09-25-2023 08:05-0500 Body height 165.1 cm Vargaspili EdenGu[place] PA-C Work Phone: [facility] 09-25-2023 08:05-0500 Body mass index (BMI) [Ratio] 50.42 kg/m2 Vargas [place] PA-C Work Phone: [facility] 09-25-2023 08:05-0500 Body weight 137.44 kg Vargas Guanako PA-C Work Phone: [facility] 09-25-2023 08:05-0500 Diastolic blood pressure 80 mm[Hg] Vargas Guanako PA-C Work Phone: [facility] 09-25-2023 08:05-0500 Heart rate 80 /min Vargaspili EdenGuanako PA-C Work Phone: [facility] 09-25-2023 08:05-0500 Systolic blood pressure 124 mm[Hg] Vargas Guanako PA-C Work Phone: [facility] 05-15-2023 18:52-0400 Blood Pressure Location KVNG DOMINGUEZ MD [facility] 05-15-2023 18:52-0400 Blood Pressure Method KVNG DOMINGUEZ MD [facility] 05-15-2023 18:52-0400 Diastolic Blood Pressure Non-Invasive 76 1 KVNG DOMINGUEZ MD [facility] 05-15-2023 18:52-0400 Heart rate 73 /min KVNG DOMINGUEZ MD [facility] 05-15-2023 18:52-0400 Respiratory rate 18 /min KVNG DOMINGUEZ MD [facility] 05-15-2023 18:52-0400 Systolic Blood Pressure Non-Invasive 105 1 KVNG DOMINGUEZ MD [facility] 05-15-2023 16:31-0400 Blood Pressure Location KVNG DOMINGUEZ MD [facility] 05-15-2023 16:31-0400 Blood Pressure Method KVNG DOMINGUEZ MD [facility] 05-15-2023 16:31-0400 Body temperature 98.24 [degF] KVNG DOMINGUEZ MD [facility] 05-15-2023 16:31-0400 Diastolic Blood Pressure Non-Invasive 85 1 KVNG DOMINGUEZ MD [facility] 05-15-2023 16:31-0400 Heart rate 82 /min KVNG DOMINGUEZ MD [facility] 05-15-2023 16:31-0400 Respiratory rate 18 /min KVNG DOMINGUEZ MD [facility] 05-15-2023 16:31-0400 Systolic Blood Pressure Non-Invasive 112 1 KVNG DOMINGUEZ MD [facility] 02-09-2023 15:24-0400 Body height 165.1 cm Vargas Mujica PA-C Work Phone: [facility] 02-09-2023 15:24-0400 Body mass index (BMI) [Ratio] 52.25 kg/m2 Vargas Mujica PA-C Work Phone: [facility] 02-09-2023 15:24-0400 Body weight 142.43 kg Vargas Mujica PA-C Work Phone: [facility] 02-09-2023 15:24-0400 Diastolic blood pressure 64 mm[Hg] Vargas Guanako PA-C Work Phone: [facility] 02-09-2023 15:24-0400 Heart rate 72 /min Vargas [place] PA-C Work Phone: [facility] 02-09-2023 15:24-0400 Systolic blood pressure 120 mm[Hg] Vargas [place] PA-C Work Phone: [facility] 01-05-2023 07:12-0400 Body height 167.64 cm PA Vargas Guanako PA Work Phone: [facility] 01-05-2023 07:12-0400 Body mass index (BMI) [Ratio] 51.2 kg/m2 PA Vargas Guanako PA Work Phone: [facility] 01-05-2023 07:12-0400 Body temperature 98.1 [degF] PA Vargas Guanako PA Work Phone: [facility] 01-05-2023 07:12-0400 Body weight 144.2 kg PA Vargas [place] PA Work Phone: [facility] 01-05-2023 07:12-0400 Diastolic blood pressure 90 mm[Hg] PA Vargas Guanako PA Work Phone: [facility] 01-05-2023 07:12-0400 Heart rate 63 /min PA Vargas [place] PA Work Phone: [facility] 01-05-2023 07:12-0400 Respiratory rate 14 /min PA Vargas Guanako PA Work Phone: [facility] 01-05-2023 07:12-0400 SaO2% (BldA) [Mass fraction] 97 % PA Vargas [place] PA Work Phone: [facility] 01-05-2023 07:12-0400 Systolic blood pressure 141 mm[Hg] PA Vargas Guanako PA Work Phone: [facility] 01-01-2023 09:17-0400 Body temperature 98.49 [degF] Shahid Gamble 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 Work Phone: [facility] 01-01-2023 09:17-0400 Body weight 99.34 kg Shahid Gamble 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 Work Phone: [facility] 01-01-2023 09:17-0400 Diastolic blood pressure 78 mm[Hg] Shahid Gamble 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 Work Phone: [facility] 01-01-2023 09:17-0400 Heart rate 79 /min Shahid Gamble 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 Work Phone: [facility] 01-01-2023 09:17-0400 Respiratory rate 18 /min Shahid Gamble 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 Work Phone: [facility] 01-01-2023 09:17-0400 SaO2% (BldA) [Mass fraction] 98 % Shahid Gamble 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 Work Phone: [facility] 01-01-2023 09:17-0400 Systolic blood pressure 112 mm[Hg] Shahid Gamble 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 Work Phone: [facility] 11-15-2022 13:42-0400 Diastolic blood pressure 89 mm[Hg] PA Vargas Mujica PA Work Phone: [facility] 11-15-2022 13:42-0400 Heart rate 57 /min PA Vargas Mujica PA Work Phone: [facility] 11-15-2022 13:42-0400 Respiratory rate 21 /min PA Vargaspili Morenoall PA Work Phone: [facility] 11-15-2022 13:42-0400 SaO2% (BldA) [Mass fraction] 98 % PA Vargas Morenoall PA Work Phone: [facility] 11-15-2022 13:42-0400 Systolic blood pressure 127 mm[Hg] PA Vargaspili Morenoall PA Work Phone: [facility] 11-15-2022 11:50-0400 Body height 167.64 cm PA Vargas [place] PA Work Phone: [facility] 11-15-2022 11:50-0400 Body mass index (BMI) [Ratio] 53.8 kg/m2 PA Vargas Guanako PA Work Phone: [facility] 11-15-2022 11:50-0400 Body temperature 97.3 [degF] PA Vargas [place] PA Work Phone: [facility] 11-15-2022 11:50-0400 Body weight 151.49 kg PA Vargas Guanako PA Work Phone: [facility] 11-08-2022 11:11-0400 Body temperature 98.29 [degF] Krislyn Aberegg PA Work Phone: [facility] 11-08-2022 11:11-0400 Body weight 152.5 kg Krislyn Aberegg PA Work Phone: [facility] 11-08-2022 11:11-0400 Diastolic blood pressure 76 mm[Hg] Krislyn Aberegg PA Work Phone: [facility] 11-08-2022 11:11-0400 Heart rate 72 /min Krislyn Aberegg PA Work Phone: [facility] 11-08-2022 11:11-0400 Respiratory rate 18 /min Krislyn Aberegg PA Work Phone: [facility] 11-08-2022 11:11-0400 SaO2% (BldA) [Mass fraction] 97 % Krislyn Aberegg PA Work Phone: [facility] 11-08-2022 11:11-0400 Systolic blood pressure 118 mm[Hg] Krislyn Aberegg PA Work Phone: [facility] 09-22-2022 13:27-0500 Body temperature 98.4 [degF] Delfin Jain APRN.[employer] EDUCATION TEACHER Work Phone: [facility] 09-22-2022 13:27-0500 Body weight 156.58 kg Delfin Jain APRN.[employer]UCATION TEACHER Work Phone: [facility] 09-22-2022 13:27-0500 Diastolic blood pressure 76 mm[Hg] Delfin Jain APRN.[employer]UCATION TEACHER Work Phone: [facility] 09-22-2022 13:27-0500 Heart rate 99 /min Delfin Jain APRN.[employer]UCATION TEACHER Work Phone: [facility] 09-22-2022 13:27-0500 Respiratory rate 22 /min Delfin Jain APRN.[employer] EDUCATION TEACHER Work Phone: [facility] 09-22-2022 13:27-0500 SaO2% (BldA) [Mass fraction] 98 % Delfin Jain 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.[employer]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 TEACHER Work Phone: [facility] 09-22-2022 13:27-0500 Systolic blood pressure 128 mm[Hg] Delfin Jain APRN.[employer] EDUCATION TEACHER Work Phone: [facility] 08-17-2022 11:33-0500 Diastolic blood pressure 95 mm[Hg] [facility] 08-17-2022 11:33-0500 Heart rate 72 /min [facility] 08-17-2022 11:33-0500 Respiratory rate 16 /min [facility] 08-17-2022 11:33-0500 SaO2% (BldA) [Mass fraction] 98 % [facility] 08-17-2022 11:33-0500 Systolic blood pressure 122 mm[Hg] [facility] 08-17-2022 08:08-0500 Body height 167.64 cm [facility] Work Phone: 08-17-2022 08:08-0500 Body mass index (BMI) [Ratio] 56.5 kg/m2 [facility] 08-17-2022 08:08-0500 Body temperature 96.9 [degF] [facility] 08-17-2022 08:08-0500 Body weight 158.75 kg [facility] 07-27-2022 08:10-0500 Body height 165.1 cm Vargas Mujica Work Phone: [facility] Work Phone: 07-27-2022 08:10-0500 Body mass index (BMI) [Ratio] 59.24 kg/m2 Vargas Mujica Work Phone: [facility] Work Phone: 07-27-2022 08:10-0500 Body surface area Derived from formula 2.53 m2 Vargas Mujica Work Phone: [facility] Work Phone: 07-27-2022 08:10-0500 Body weight 161.48 kg Vargas Mujica Work Phone: [facility] Work Phone: 07-27-2022 08:10-0500 Diastolic blood pressure 83 mm[Hg] Vargas Mujica Work Phone: [facility] Work Phone: 07-27-2022 08:10-0500 Heart rate 80 /min Vargas Mujica Work Phone: [facility] Work Phone: 07-27-2022 08:10-0500 Systolic blood pressure 133 mm[Hg] Vargas Mujica Work Phone: [facility] Work Phone: 07-12-2022 07:44-0500 Body height 167.[address] Work Phone: [facility] 07-12-2022 07:44-0500 Body weight 148.[address] Work Phone: [facility] 07-12-2022 07:41-0500 Body height 167.6 cm Marjan Gromovsky 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 Work Phone: [facility] 07-12-2022 07:41-0500 Body weight 148.78 kg Marjan Gromovsky 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 Work Phone: [facility] 06-03-2022 08:47-0400 Body weight 159.[address] Work Phone: [facility] 06-02-2022 09:07-0400 Body height 167.6 cm Marjan Gromovsky 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 Work Phone: [facility] 06-02-2022 09:07-0400 Body weight 159.67 kg Marjan Gromovsky 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 Work Phone: [facility] 04-21-2022 12:41-0400 Body height 167.[address] Work Phone: [facility] 04-21-2022 12:41-0400 Body weight [address] Work Phone: [facility] 04-19-2022 09:56-0400 Body height 167.6 cm Marjan Gromovsky 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 Work Phone: [facility] 04-19-2022 09:56-0400 Body weight 176.18 kg Marjan Gromovsky 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 Work Phone: [facility] 04-19-2022 09:56-0400 Diastolic blood pressure 97 mm[Hg] Marjan Gromovsky 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 Work Phone: [facility] 04-19-2022 09:56-0400 Heart rate 80 /min Marjan Gromovsky 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 Work Phone: [facility] 04-19-2022 09:56-0400 Systolic blood pressure 135 mm[Hg] Marjan Gromovsky 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 Work Phone: [facility] 03-31-2022 11:31-0400 Body height 167.6 cm Marjan Gromovsky 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 Work Phone: [facility] 03-31-2022 11:31-0400 Body weight 183.71 kg Marjan Nunu MILNER.H[employer]CHO[employer] SPECIAL EDUCATION TEACHER Work Phone: [facility] 03-30-2022 08:53-0400 Body height 165.1 cm Vargas Morenoall Work Phone: [facility] Work Phone: 03-30-2022 08:53-0400 Body mass index (BMI) [Ratio] 68.06 kg/m2 Vargas Morenoall Work Phone: [facility] Work Phone: 03-30-2022 08:53-0400 Body surface area Derived from formula 2.68 m2 Vargas Mujica Work Phone: [facility] Work Phone: 03-30-2022 08:53-0400 Body weight 185.52 kg Vargas Mujica Work Phone: [facility] Work Phone: 03-30-2022 08:53-0400 Diastolic blood pressure 74 mm[Hg] Vargas Mujica Work Phone: [facility] Work Phone: 03-30-2022 08:53-0400 Heart rate 98 /min Vargas Morenoall Work Phone: [facility] Work Phone: 03-30-2022 08:53-0400 Systolic blood pressure 132 mm[Hg] Vargas [place] Work Phone: [facility] Work Phone: 03-24-2022 10:42-0400 Body height 167.6 cm Tata Rosas MD Work Phone: [facility] 03-24-2022 10:42-0400 Body weight 183.71 kg Tata Rosas MD Work Phone: [facility] 03-16-2022 09:44-0400 Body height 167.[address] Work Phone: [facility] 03-16-2022 09:44-0400 Body weight 183.[address] Work Phone: [facility] 02-15-2022 08:22-0400 Body height 167.[address] Work Phone: [facility] 02-15-2022 08:22-0400 Body weight 183.[address] Work Phone: [facility] 02-15-2022 08:21-0400 Body height 167.6 cm Marjan Gromovsky 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 Work Phone: [facility] 02-15-2022 08:21-0400 Body weight 183.71 kg Marjan Gromovsky 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 Work Phone: [facility] 01-18-2022 08:47-0400 Body height 167.6 cm Marjan Gromovsky 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 Work Phone: [facility] 01-18-2022 08:47-0400 Body weight 187.79 kg Marjan Gromovsky 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 Work Phone: [facility] 01-13-2022 10:48-0400 Body height 167.6 cm Brooks Soto MD Work Phone: [facility] 01-13-2022 10:48-0400 Body weight 187.97 kg Brooks Soto MD Work Phone: [facility] 01-13-2022 10:48-0400 Diastolic blood pressure 76 mm[Hg] Brooks Soto MD Work Phone: [facility] 01-13-2022 10:48-0400 Heart rate 100 /min Brooks Soto MD Work Phone: [facility] 01-13-2022 10:48-0400 SaO2% (BldA) [Mass fraction] 96 % Brooks Soto MD Work Phone: [facility] 01-13-2022 10:48-0400 Systolic blood pressure 128 mm[Hg] Brooks Soto MD Work Phone: [facility] 01-03-2022 15:28-0400 Body height 167.6 cm Hung Emerson MD Work Phone: [facility] 01-03-2022 15:28-0400 Body temperature 97 [degF] Hung Emerson MD Work Phone: [facility] 01-03-2022 15:28-0400 Body weight 188.24 kg Hung Emerson MD Work Phone: [facility] 01-03-2022 15:28-0400 Diastolic blood pressure 88 mm[Hg] Hung Emerson MD Work Phone: [facility] 01-03-2022 15:28-0400 Heart rate 86 /min Hung Emerson MD Work Phone: [facility] 01-03-2022 15:28-0400 Respiratory rate 20 /min Hung Emerson MD Work Phone: [facility] 01-03-2022 15:28-0400 SaO2% (BldA) [Mass fraction] 97 % Hung Emerson MD Work Phone: [facility] 01-03-2022 15:28-0400 Systolic blood pressure 138 mm[Hg] Hung Emerson MD Work Phone: [facility] 12-28-2021 09:30-0400 Body height 165.1 cm Vargas Mujica Work Phone: [facility] Work Phone: 12-28-2021 09:30-0400 Diastolic blood pressure 72 mm[Hg] Vargas Mujica Work Phone: [facility] Work Phone: 12-28-2021 09:30-0400 Heart rate 96 /min Vargas Mujica Work Phone: [facility] Work Phone: 12-28-2021 09:30-0400 Systolic blood pressure 120 mm[Hg] Vargas Mujica Work Phone: [facility] Work Phone: 12-27-2021 08:08-0400 Body height 167.[address] Work Phone: [facility] 12-27-2021 08:08-0400 Body weight 190.[address] Work Phone: [facility] 12-24-2021 08:37-0400 Body height 167.6 cm Marjan Gromovsky 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 Work Phone: [facility] 12-24-2021 08:37-0400 Body weight 187.79 kg Marjan Gromovsky 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 Work Phone: [facility] 12-24-2021 08:37-0400 Diastolic blood pressure 80 mm[Hg] Marjan Gromovsky 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 Work Phone: [facility] 12-24-2021 08:37-0400 Heart rate 97 /min Marjan Gromovsky 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 Work Phone: [facility] 12-24-2021 08:37-0400 Respiratory rate 18 /min Marjan Gromovsky 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 Work Phone: [facility] 12-24-2021 08:37-0400 SaO2% (BldA) [Mass fraction] 96 % Marjan Gromovsky 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 Work Phone: [facility] 12-24-2021 08:37-0400 Systolic blood pressure 120 mm[Hg] Marjan Gromovsky 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 Work Phone: [facility] 11-19-2021 08:25-0400 Body height 167.6 cm Marjan Gromovsky 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 Work Phone: [facility] 11-19-2021 08:25-0400 Body weight 185.52 kg Marjan Ruizmikaelajonny ALF.H[employer]CHO[employer] SPECIAL EDUCATION TEACHER Work Phone: [facility] 11-11-2021 08:48-0400 Body height 165.1 cm Vargas Morenoall Work Phone: [facility] Work Phone: 11-11-2021 08:48-0400 Body mass index (BMI) [Ratio] 68.06 kg/m2 Vargas [place] Work Phone: [facility] Work Phone: 11-11-2021 08:48-0400 Body surface area Derived from formula 2.68 m2 Vargas Morenoall Work Phone: [facility] Work Phone: 11-11-2021 08:48-0400 Body weight 185.52 kg Vargas Morenoall Work Phone: [facility] Work Phone: 11-11-2021 08:48-0400 Diastolic blood pressure 82 mm[Hg] Vargas [place] Work Phone: [facility] Work Phone: 11-11-2021 08:48-0400 Heart rate 102 /min Vargas [place] Work Phone: [facility] Work Phone: 11-11-2021 08:48-0400 Systolic blood pressure 114 mm[Hg] Vargas [place] Work Phone: [facility] Work Phone: 07-28-2021 09:20-0500 Body height 165.1 cm Vargas [place] Work Phone: [facility] Work Phone: 07-28-2021 09:20-0500 Body mass index (BMI) [Ratio] 66.4 kg/m2 Vargas Mujica Work Phone: [facility] Work Phone: 07-28-2021 09:20-0500 Body surface area Derived from formula 2.65 m2 Vargas Mujica Work Phone: [facility] Work Phone: 07-28-2021 09:20-0500 Body weight 180.99 kg Vargas Mujica Work Phone: [facility] Work Phone: 07-28-2021 09:20-0500 Diastolic blood pressure 76 mm[Hg] Vargas Mujica Work Phone: [facility] Work Phone: 07-28-2021 09:20-0500 Heart rate 79 /min Vargas Mujica Work Phone: [facility] Work Phone: 07-28-2021 09:20-0500 SaO2% (BldA) [Mass fraction] 97 % Vargas Mujica Work Phone: [facility] Work Phone: 07-28-2021 09:20-0500 Systolic blood pressure 124 mm[Hg] Vargas Mujica Work Phone: [facility] Work Phone: 05-25-2021 15:58-0400 Body height 165.1 cm Vargas Mujica Work Phone: [facility] Work Phone: 05-25-2021 15:58-0400 Body mass index (BMI) [Ratio] 64.9 kg/m2 Vargas Mujica Work Phone: [facility] Work Phone: 05-25-2021 15:58-0400 Body surface area Derived from formula 2.63 m2 Vargas Mujica Work Phone: [facility] Work Phone: 05-25-2021 15:58-0400 Body weight 176.9 kg Vargas Mujica Work Phone: [facility] Work Phone: 05-25-2021 15:58-0400 Diastolic blood pressure 76 mm[Hg] Vargas Mujica Work Phone: [facility] Work Phone: 05-25-2021 15:58-0400 Heart rate 64 /min Vargas Mujica Work Phone: [facility] Work Phone: 05-25-2021 15:58-0400 Systolic blood pressure 122 mm[Hg] Vargas Mujica Work Phone: [facility] Work Phone: Encounters Encounter Date Encounter Type Care Provider Facility Start: 05-08-2025 ambulatory Vargas WATKINS Fa cility:[facility] Start: 02-20-2025 ambulatory [facility]argas [facility] Start: 02-20-2025 End: 02-20-2025 ambulatory Vargas WATKINS Facility:[facility] Start: 02-10-2025 End: 02-10-2025 Follow-up encounter Johanny Marmolejo APRN.[employer]UC[employer] TEACHER Work Phone: [facility] Comment on above: Follow Up Tests Resu lts Start: 01-29-2025 End: 01-29-2025 Telephone encounter Johanny Marmolejo APRN.[employer]UC[employer] TEACHER Work Phone: [facility] Start: 01-28-2025 End: 01-28-2025 Patient encounter procedure Johanny Marmolejo APRN.[employer]UC[employer] TEACHER Work Phone: [facility] Comment on above: Sinus bradycardia (P rimary Dx); Encounter for screening for cardiovascular disorders; Chest pain, unspecified type; Wide-complex tachycardia; BMI 50.0-59.9, adult ([facility]) Start: 01-28-2025 End: 01-28-2025 ambulatory JOHANNY MARMOLEJO Facility:[facility] Start: 01-21-2025 ambulatory Sanam Blanco y:[facility] Start: 01-09-2025 End: 01-13-2025 Telephone encounter Tomasz Garay MD Work Phone: Cardiology Comment on above: Appointment; Patient Update Start: 01-06-2025 ambulatory Vargas WATKINS Fa cility:[facility] Start: 12-20-2024 End: 12-20-2024 Emergency department patient visit Vargas WATKINS Facility:[facility] Start: 12-10-2024 ambulatory Vargas WATKINS Fa cility:[facility] Start: 12-04-2024 ambulatory Vargas WATKINS Fa cility:[facility] Start: 11-06-2024 End: 11-06-2024 Office outpatient visit 25 minutes Vargas Mujica PA-C Work Phone: [facility] Comment on above: Acute [...] Depression, major, single episode, moderate (Multi); AAT (yiwly-1-nmwgivjwstx) deficiency (Multi); Encounter for dietary counseling and surveillance; Fatty liver disease, nonalcoholic Start: 11-06-2024 End: 11-07-2024 ambulatory RENTON Gabo [facility] Start: 10-28-2024 End: 10-28-2024 ambulatory Vargas WATKINS Facility:[facility] Start: 10-23-2024 End: 10-23-2024 Emergency department patient visit Vargas WATKINS Facility:[facility] Start: 10-09-2024 ambulatory Vargas WATKINS Fa cility:[facility] Start: 09-24-2024 End: 09-24-2024 ambulatory Vargas WATKINS Facility:[facility] Start: 09-18-2024 ambulatory Vargas WATKINS Fa cility:[facility] Start: 09-12-2024 ambulatory Vargas WATKINS Fa cility:[facility] Start: 09-12-2024 End: 09-12-2024 ambulatory Vargas WATKINS Facility:[facility] Start: 09-04-2024 End: 09-04-2024 ambulatory Vargas WATKINS Facility:[facility] Start: 07-31-2024 End: 07-31-2024 ambulatory Vargas WATKINS Facility:[facility] Start: 07-11-2024 End: 07-11-2024 Subsequent hospital visit by physician Huang [facility] Comment on above: Chronic midline low back pain with sciatica, sciatica laterality unspecified Cervicalgia Start: 07-11-2024 End: 07-11-2024 ambulatory [facility] Start: 07-11-2024 End: 07-11-2024 Office outpatient visit 25 minutes Vargas Mujica PA-C Work Phone: [facility] Comment on above: Cervicalgia [...] laterality unspecified Start: 07-11-2024 End: 07-11-2024 ambulatory [facility] Start: 06-07-2024 End: 06-07-2024 Patient encounter procedure Chloé Tipton APRN.CNP Work Phone: [facility] Comment on above: Foot pain, left (Mulu nikita Dx); Injury of left foot, initial encounter Start: 06-07-2024 End: 06-07-2024 ambulatory VARGAS MUJICA Facility:[facility] Start: 06-07-2024 End: 06-07-2024 Subsequent hospital visit by physician Xr [facility] Work Phone: Radiology Comment on above: Foot pain, left [[id number]] Start: 04-25-2024 End: 04-25-2024 Telephone encounter Donnie WATKINS Work Phone: [facility] Start: 04-24-2024 End: 04-24-2024 Subsequent hospital visit by physician Xr [facility] Work Phone: Radiology Comment on above: Acute cough [R05.1] Start: 04-24-2024 End: 04-24-2024 ambulatory VARGAS MUJICA Facility:[facility] Start: 04-24-2024 End: 04-24-2024 Patient encounter procedure Delfin Jain APRN.CNP Work Phone: [facility] Comment on above: URI, acute (Primary Dx); Acute cough Start: 02-28-2024 End: 02-28-2024 Office outpatient visit 25 minutes Vargas Mujica PA-C Work Phone: [facility] Comment on above: Major [...] episode, moderate (Multi); Polyarthralgia; Medication management Start: 10-19-2023 End: 10-19-2023 [facility] Start: 10-03-2023 Telephone encounter Tomasz Garay MD Work Phone: Cardiology Comment on above: Patient Question (pa lpations) Start: 10-03-2023 End: 10-03-2023 Emergency department patient visit [facility] Work Phone: Start: 09-25-2023 End: 09-25-2023 ambulatory VARGAS MUJICA [facility] Start: 09-25-2023 End: 09-25-2023 Office outpatient visit 25 minutes Vargas Mujica PA-C Work Phone: [facility] Internal Medicine Comment on above: Major depressive dis order, single episode, moderate (CMS/HCC) (Primary Dx); Anxiety; Gastroesophageal reflux disease, unspecified whether esophagitis present; Glucose intolerance (impaired glucose tolerance); Shahzad's disease; Vitamin D deficiency; Fatty liver disease, nonalcoholic; Elevated ferritin level; Depression, major, single episode, moderate (CMS/HCC); Generalized anxiety disorder; AAT (ipgqa-9-dydrqjpmggg) deficiency (CMS/HCC); Encounter for screening mammogram for breast cancer; Class 3 severe obesity due to excess calories with serious comorbidity and body mass index (BMI) of 50.0 to 59.9 in adult (CMS/HCC) Start: 05-15-2023 End: 05-15-2023 Emergency department patient visit KVNG DOMINGUEZ MD [facility] Start: 02-21-2023 Telephone encounter Tomasz Garay MD Work Phone: Cardiology Comment on above: ZIO RESULTS Start: 02-09-2023 End: 02-09-2023 Office outpatient visit 25 minutes Vargas Mujica PA-C Work Phone: [facility] Internal Medicine Comment on above: Generalized [...] department patient visit JUNE WATKINS [facility] Start: 01-02-2023 Telephone encounter Tomasz Garay MD Work Phone: Cardiology Comment on above: Patient Update Start: 01-01-2023 End: 01-01-2023 Patient encounter procedure Shahid Gamble 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 Work Phone: [facility] Comment on above: Dizziness (Primary D x); Bilateral impacted cerumen Start: 11-15-2022 End: 11-15-2022 Emergency department patient visit JUNE WATKINS [facility] Start: 11-08-2022 End: 11-08-2022 Subsequent hospital visit by physician Xr [facility] Work Phone: Radiology Comment on above: Foot pain, right [M7 9.671] Start: 11-08-2022 End: 11-08-2022 Patient encounter procedure Donnie WATKINS Work Phone: [facility] Comment on above: Foot pain, right (Pr imary Dx) Start: 11-02-2022 End: 11-02-2022 Patient encounter procedure [facility]E WATKINS [facility] Start: 10-17-2022 Office outpatient vi sit 15 minutes Vargas Mujica Work Phone: [facility] Internal Medicine Work Phone: Start: 10-17-2022 ambulatory Ms. Vargas Solomon terrie Mujica Facility:[id number] Start: 10-11-2022 Orders Only Marjan fuller 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 Work Phone: [facility] Comment on above: Increased PTH level (Primary Dx) Start: 10-10-2022 Telephone encounter Tata umanzor MD Work Phone: [facility] Comment on above: Patient Question (Na usea, abdominal pain) Start: 09-29-2022 Telephone encounter Vargas wilson Work Phone: [facility] Internal Medicine Work Phone: Start: 09-22-2022 End: 09-22-2022 Subsequent hospital visit by physician Xr [facility] Work Phone: Radiology Comment on above: Acute cough [R05.1] Start: 09-22-2022 End: 09-22-2022 Patient encounter procedure Delfin Jain APRN.CNP Work Phone: [facility] Comment on above: Acute cough (Primary Dx); URI, acute; Rhinosinusitis Start: 09-20-2022 Office outpatient vi sit 25 minutes Vargas Mujica Work Phone: [facility] Medicine Work Phone: Start: 09-20-[address] Josselyn Roblero [facility] ility:[id number] Start: 09-18-2022 Telephone encounter Vargas wilson Work Phone: [facility] Internal Medicine Work Phone: Start: 08-31-2022 Office outpatient vi sit 25 minutes Vargas Mujica Work Phone: [facility] Internal Medicine Work Phone: Start: 08-31-2022 ambulatory Iglesia Vargas Mujica Facility:[id number] Start: 08-28-2022 Chart Update Vargas sun Work Phone: [facility] Internal Medicine Work Phone: Start: 08-17-2022 End: 08-17-2022 Emergency department patient visit [facility] Start: 08-17-2022 AUDIT Vargas sun Work Phone: [facility] Internal Medicine Work Phone: Start: 08-15-2022 ambulatory Marjan Duncan Gromo vsky 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 Work Phone: [facility] Comment on above: Itching Start: 08-03-2022 Telephone encounter Vargas wilson Work Phone: [facility] Internal Medicine Work Phone: Start: 07-27-2022 Office outpatient vi sit 25 minutes Vargas Mujica Work Phone: [facility] Internal Medicine Work Phone: Start: 07-27-2022 ambulatory Ms. Vargas falcon Guan[place] Facility:[id number] Start: 07-13-2022 AUDIT Vargas sun Work Phone: [facility] Internal Medicine Work Phone: Start: 07-12-2022 Telephone encounter Tata umanzor MD Work Phone: [facility] Comment on above: Appointment Start: 07-12-2022 End: 07-12-2022 Telemedicine consultation with patient Marjan Ruizmovsky 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 Work Phone: [facility] Start: 07-12-2022 End: 07-12-2022 ambulatory Marjan R Gromovsky 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 Work Phone: [facility] Comment on above: S/P laparoscopic sle mariajose gastrectomy (Primary Dx); Elevated liver enzymes Start: 07-12-2022 End: 07-12-2022 Follow-up encounter Audrey Spivey RD Work Phone: [facility] Comment on above: Post Op Follow Up Start: 06-21-2022 AUDIT Vargas sun Work Phone: [facility] Internal Medicine Work Phone: Start: 06-14-2022 ambulatory Marjan R Gromo vsky 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 Work Phone: [facility] Comment on above: Labs Start: 06-14-2022 E-mail encounter fro m caregiver Marjan Song Nunu MILNER.HIGH SCHOOL SPECIAL EDUCATION TEACHER Work Phone: [facility] Start: 06-03-2022 End: 06-03-[address] Work Phone: [facility] Start: 06-03-2022 End: 06-03-2022 FQHC visit, estab pt Amirah Flores RD Work Phone: [facility] Comment on above: Established Patient Start: 06-02-2022 Telephone encounter [facility] Provider [facility] Comment on above: Appointment Start: 06-02-2022 End: 06-02-2022 ambulatory Marjan Song Nunu MILNER.H[employer] SPECIAL EDUCATION TEACHER Work Phone: [facility] Comment on above: S/P laparoscopic sle mariajose gastrectomy (Primary Dx) Start: 06-02-2022 End: 06-02-2022 Telemedicine consultation with patient Marjan Eddy ALF.H[employer]CHO[employer] SPECIAL EDUCATION TEACHER Work Phone: [facility] Start: 04-21-2022 End: 04-21-[address] Work Phone: [facility] Start: 04-21-2022 End: 04-21-2022 FQHC visit, estab pt Audrey Spivey RD Work Phone: [facility] Comment on above: Established Patient Start: 04-20-2022 Refill Marjan Song Roro fuller 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 Work Phone: [facility] Comment on above: Refill Request Start: 04-20-2022 Telephone encounter Tata umanzor MD Work Phone: [facility] Comment on above: Results Start: 04-19-2022 End: 04-19-2022 Subsequent hospital visit by physician [facility] [place] [facility] Comment on above: Arrived S/P laparoscopic sle mariajose gastrectomy [Z98.84] Start: 04-19-2022 End: 04-19-2022 Patient encounter procedure Marjan Eddy APRN.H[employer] S[employer] SPECIAL EDUCATION TEACHER Work Phone: [facility] Comment on above: S/P laparoscopic sle mariajose gastrectomy (Primary Dx); Right sided abdominal pain; Hepatic fibrosis; History of DVT (deep vein thrombosis) Start: 04-18-2022 Telephone encounter Tata umanzor MD Work Phone: [facility] Comment on above: Patient Update Start: 04-14-2022 Telephone encounter Marjan rangel APRN.H[employer] SPECIAL EDUCATION TEACHER Work Phone: [facility] Comment on above: Surgical Followup Start: 04-12-2022 Telephone encounter Tata umanzor MD Work Phone: [facility] Comment on above: Patient Update (Inpa tient rounding) Start: 04-06-2022 Telephone encounter Tata umanzor MD Work Phone: [facility] Comment on above: Patient Update Start: 04-05-2022 Telephone encounter Marjan rangel APRN.H[employer]CHO[employer] SPECIAL EDUCATION TEACHER Work Phone: [facility] Comment on above: Results Start: 03-31-2022 AUDIT Vargas sun Work Phone: [facility] Internal Medicine Work Phone: Start: 03-31-2022 Telephone encounter Tata umanzor MD Work Phone: [facility] Comment on above: Opened In Error Start: 03-31-2022 End: 03-31-2022 ambulatory Marjan Eddy APRN.H[employer] SPECIAL EDUCATION TEACHER Work Phone: [facility] Comment on above: Class 3 severe obesi ty due to excess calories with serious comorbidity and body mass index (BMI) of 60.0 to 69.9 in adult (HCC) (Primary Dx); History of DVT (deep vein thrombosis); Elevated liver enzymes Start: 03-31-2022 End: 03-31-2022 Telemedicine consultation with patient Marjan Eddy 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 Work Phone: [facility] Start: 03-30-2022 ambulatory Ms. Vargas Mujica Facility:[id number] Start: 03-30-2022 Encounter for other preprocedural examination Ms. Vargas Mujica Facility:[id number] Start: 03-29-2022 ambulatory Marjan fuller 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 Work Phone: [facility] Comment on above: Vitamins Start: 03-24-2022 End: 03-24-2022 ambulatory Tata Rosas MD Work Phone: [facility] Comment on above: Class 3 severe obesi ty due to excess calories with serious comorbidity and body mass index (BMI) of 60.0 to 69.9 in adult (HCC) (Primary Dx); History of DVT (deep vein thrombosis); AAT (kwbeh-1-nkfshqbhmke) deficiency (HCC); BRISEYDA (obstructive sleep apnea); NAFLD (nonalcoholic fatty liver disease); Heartburn Start: 03-24-2022 End: 03-24-2022 Telemedicine consultation with patient Tata Rosas MD Work Phone: [facility] Start: 03-23-2022 AUDIT Vargas sun Work Phone: [facility] Internal Medicine Work Phone: Start: 03-21-2022 ambulatory Marjan fuller 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 Work Phone: [facility] Comment on above: Pre surgical Start: 03-16-2022 AUDIT Vargas sun Work Phone: [facility] Internal Medicine Work Phone: Start: 03-16-2022 End: 03-16-[address] Work Phone: [facility] Comment on above: Class 3 severe obesi ty due to excess calories with serious comorbidity and body mass index (BMI) of 60.0 to 69.9 in adult (HCC) (Primary Dx) Start: 03-16-2022 End: 03-16-2022 Telemedicine consultation with patient Amirah Flores NELLA Work Phone: [facility] Start: 03-15-2022 Telephone encounter Tata umanzor MD Work Phone: [facility] Comment on above: Appointment Start: 03-02-2022 Telephone encounter Nasrin rojas 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 Work Phone: Pulmonary Medicine Comment on above: Opened In Error Start: 03-01-2022 Orders Only Tata Rosas MD Work Phone: [facility] Comment on above: Morbid obesity (HCC) (Primary Dx) Start: 02-15-2022 End: 02-15-2022 ambulatory Marjan Eddy 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 Work Phone: [facility] Comment on above: Class 3 severe obesi ty due to excess calories with serious comorbidity and body mass index (BMI) of 60.0 to 69.9 in adult (HCC) (Primary Dx); Elevated liver enzymes; COVID-19 long hauler; BRISEYDA (obstructive sleep apnea) Dietary counseling a nd surveillance Start: 02-15-2022 End: 02-15-2022 Telemedicine consultation with patient Marjan Eddy 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 Work Phone: [facility] Start: 02-10-2022 Telephone encounter Hung buck MD Work Phone: Pulmonary Medicine Comment on above: FYI-No Action Needed Start: 02-09-2022 Telephone encounter Hung buck MD Work Phone: Pulmonary Medicine Comment on above: Results Letter Start: 02-03-2022 ambulatory Brooks farnsworth MD Work Phone: [facility] Comment on above: Question regarding L IVER FIBROSIS AND ACTIVITY Start: 02-02-2022 Telephone encounter Tata umanzor MD Work Phone: [facility] Comment on above: Medical Clearance Start: 02-02-2022 End: 02-02-2022 Subsequent hospital visit by physician Us Scanlon 2 RADIO ULTRA [facility] Comment on above: Fatty liver [K76.0] Start: 02-02-2022 End: 02-02-2022 ambulatory Pulm [place] [facility] Comment on above: Shortness of Breath Start: 02-02-2022 End: 02-02-2022 Patient encounter procedure Pulm [facility] Start: 01-25-2022 AUDIT Vargas sun Work Phone: [facility] Internal Medicine Work Phone: Start: 01-18-2022 End: 01-18-2022 ambulatory Marjan Eddy [employer] EDUCATION TEACHER Work Phone: [facility] Comment on above: Class 3 severe obesi ty due to excess calories with serious comorbidity and body mass index (BMI) of 60.0 to 69.9 in adult (HCC) (Primary Dx); Elevated liver enzymes; COVID-19 long hauler; Hepatomegaly Start: 01-18-2022 End: 01-18-2022 Telemedicine consultation with patient Marjan Song Nunu MILNER.H[employer] SPECIAL EDUCATION TEACHER Work Phone: [facility] Start: 01-14-2022 Telephone encounter Hung buck MD Work Phone: Pulmonary Medicine Comment on above: Results Start: 01-13-2022 End: 01-13-2022 Patient encounter procedure Brooks Soto MD Work Phone: [facility] Comment on above: Fatty liver (Primary Dx); Increased liver enzymes; Morbid obesity (HCC) Start: 01-10-2022 Message Vargas sun Work Phone: [facility] Internal Medicine Work Phone: Start: 01-04-2022 Result Review Vargas sun Work Phone: [facility] Internal Medicine Work Phone: Start: 01-03-2022 End: 01-03-2022 Patient encounter procedure Hung Emerson MD Work Phone: Pulmonary Medicine Comment on above: Dyspnea and respirat ory abnormalities (Primary Dx); Shortness of breath Start: 12-28-2021 ambulatory Ms. Vargas Mujica Facility:[id number] Start: 12-27-2021 Telephone encounter Brooks Soto MD Work Phone: [facility] Comment on above: Appointment Start: 12-27-2021 End: 12-27-[address] Work Phone: [facility] Comment on above: Class 3 severe obesi ty due to excess calories with serious comorbidity and body mass index (BMI) of 60.0 to 69.9 in adult (HCC) (Primary Dx) Start: 12-27-2021 End: 12-27-2021 Telemedicine consultation with patient Amirah Zabalapenny CARMEN Work Phone: [facility] Start: 12-24-2021 Telephone encounter Edith Devi MD Work Phone: [facility] Comment on above: possible Hepatitis d iagnosis Start: 12-24-2021 End: 12-24-2021 Patient encounter procedure Marjan Eddy APRN.CNP Work Phone: [facility] Comment on above: Class 3 severe obesi ty due to excess calories with serious comorbidity and body mass index (BMI) of 60.0 to 69.9 in adult (HCC) (Primary Dx); Elevated liver enzymes; Hepatomegaly; V-tach (HCC); COVID-19 long hauler; Gastroesophageal reflux disease without esophagitis Start: 12-10-2021 Refill Tata Rosas MD Work Phone: [facility] Comment on above: Refill Request Start: 12-10-2021 Telephone encounter Tata umanzor MD Work Phone: [facility] Comment on above: Received Outside [employer] ([facility]) Start: 12-02-2021 Refill Marjan fuller 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 Work Phone: [facility] Comment on above: Refill Request Start: 12-02-2021 Telephone encounter Marjan rangel 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 Work Phone: [facility] Comment on above: Radiology US (result s) Start: 12-02-2021 AUDIT Vargas sun Work Phone: [facility] Internal Medicine Work Phone: Start: 12-01-2021 Telephone encounter Tata umanzor MD Work Phone: [facility] Comment on above: Appointment Start: 11-30-2021 Admission to [facility] Tomasz Garay MD Work Phone: Cardiology Comment on above: Surgery release Start: 11-30-2021 ambulatory [facility]omasz Garay MD [facility] Start: 11-29-2021 AUDIT Vargas sun Work Phone: [facility] Internal Medicine Work Phone: Start: 11-29-2021 Telephone encounter Tata umanzor MD Work Phone: [facility] Comment on above: Patient Update (Outs austyn lab results) Start: 11-19-2021 End: 11-19-2021 Refill Tata Rosas MD Work Phone: [facility] Comment on above: Refill Request Class 3 severe obesi ty due to excess calories with serious comorbidity and body mass index (BMI) of 60.0 to 69.9 in adult (HCC) (Primary Dx); V-tach (HCC); COVID-19 long hauler; Elevated liver enzymes; Eyxle-3-vxqexlwxmzs deficiency (HCC); Gastroesophageal reflux disease without esophagitis Medical Clearance Start: 11-15-2021 AUDIT Vargas sun Work Phone: [facility] Internal Medicine Work Phone: Start: 11-12-2021 Chart Update Vargas Edenduke eppsall Work Phone: [facility] Internal Medicine Work Phone: Start: 11-11-2021 Office outpatient vi sit 25 minutes Vargas Edenenhall Work Phone: [facility] Internal Medicine Work Phone: Start: 11-11-2021 [id number] Start: 10-18-2021 AUDIT Vargas Ayon Pratima eppsall Work Phone: [facility] Internal Medicine Work Phone: Start: 09-02-2021 AUDIT Vargas Ayon Pratima eppsall Work Phone: [facility] Internal Medicine Work Phone: Start: 08-19-2021 Office outpatient vi sit 15 minutes Vargas Edenenhall Work Phone: [facility] Internal Medicine Work Phone: Start: 07-28-2021 FUV, Provider: Vargas Mujica, Status: Pen, Time: 9:00 AM Vargas Edenenhall Work Phone: [facility] Internal Medicine Work Phone: Start: 07-28-2021 Office outpatient vi sit 25 minutes Vargas Mujica Work Phone: [facility] Internal Medicine Work Phone: Start: 07-27-2021 Chart Update Vargas Edenduke eppsall Work Phone: [facility] Internal Medicine Work Phone: Start: 07-02-2021 AUDIT Vargas Edenduke eppsall Work Phone: [facility] Internal Medicine Work Phone: Start: 06-08-2021 Chart Update Vargas Rosales supriyaall Work Phone: [facility] Internal Medicine Work Phone: Start: 06-03-2021 AUDIT Vargas sun Work Phone: [facility] Medicine Work Phone: Start: 05-25-2021 Office outpatient vi sit 25 minutes Vargas Mujica Work Phone: [facility] Internal Medicine Work Phone: Start: 05-11-2021 AUDIT Vargas sun Work Phone: [facility] Internal Medicine Work Phone: Start: 04-12-2021 AUDIT Vargas sun Work Phone: [facility] Medicine Work Phone: Start: 12-19-2020 End: 12-19-2020 Subsequent hospital visit by physician [facility] O'Brien Work Phone: Radiology Comment on above: Class 3 severe obesi ty with body mass index (BMI) of 50.0 to 59.9 in adult, unspecified obesity type, unspecified whether serious comorbidity present (HCC) [E66.01, Z68.43] Start: 06-10-2020 Patient encounter procedure Vargas Mujica [facility] Work Phone: Start: 04-20-2020 Patient encounter procedure Vargas Mujica [facility] Internal Medicine Work Phone: Start: 01-14-2020 Patient encounter procedure Vargas Mujica [facility] Internal Medicine Work Phone: Start: 12-23-2019 Patient encounter procedure Vargas Mujica [facility] Internal Medicine Work Phone: Start: 12-16-2019 Patient encounter procedure Vargas Mujica [facility] Internal Medicine Work Phone: Start: 10-03-2019 Patient encounter procedure Vargas Mujica [facility] Work Phone: Start: 09-18-2018 End: 09-20-2018 Evaluation and management of inpatient EDITH MURRAY Facility:[facility] Patient encounter status Vargas Mujica Work Phone: [facility] Internal Medicine Work Phone: Preoperative state Vargas cordova Work Phone: [facility] Internal Medicine Work Phone: Procedures Date Procedure Procedure Detail Performing Clinician Start: 06-07-2024 Radex foot complete minimum 3 views Chloé Tipton 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 Work Phone: Start: 04-24-2024 Radiologic exam chest 2 views Delfin Jain 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 Work Phone: Start: 10-19-2023 CT of head without contrast Start: 09-25-2023 C-reactive protein VARGAS EDENENHALL Start: 09-25-2023 CBC W Auto Differential panel - Blood VARGAS GUANAKO Start: 09-25-2023 Comprehensive metabolic 2000 panel - Serum or Plasma VARGAS GUANAKO Start: 09-25-2023 Cyanocobalamin vitamin b-12 VARGAS ROSALES PEPE Start: 09-25-2023 Ferritin [Mass/volume] in Serum or Plasma VARGAS GUANAKO Start: 09-25-2023 Hemoglobin A1c/Hemoglobin.total in Blood VARGASPILI EDENGUANAKO Start: 09-25-2023 IRON AND TIBC VARGAS EDENENHALL Start: 09-25-2023 Lipid panel VARGAS GUANAKO Start: 09-25-2023 Magnesium [Mass/volume] in Serum or Plasma VARGAS GUANAKO Start: 09-25-2023 SEDIMENTATION RATE, AUTOMATED VARGAS BLANKDODIEL Start: 09-25-2023 THYROXINE, FREE VARGASPILI EDENGUANAKO Start: 09-25-2023 VITAMIN D 25-HYDROXY,TOTAL VARGASPILI SCHROEDER ANNA Start: 09-25-2023 Lipid 1996 panel - Serum or Plasma Scott Mujica PA-C Work Phone: Start: 09-25-2023 Thyrotropin [Units/volume] in Serum or Plasma Vargas WATKINS-C Work Phone: Start: 02-09-2023 Urnls dip stick/tablet [...] Radiologic exam chest 2 views Delfin Jain 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 Work Phone: Start: 08-17-2022 Plain chest X-ray Start: 04-19-2022 Ct abdomen & pelvis w/contrast material Marjan Eddy 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 Work Phone: Start: 02-02-2022 Us abdominal real time w/image documentation Brooks Soto MD Work Phone: Start: 02-02-2022 Brncdilat rspse spmtry pre&post-brncdilat admn Hung Emerson MD Work Phone: Start: 12-10-2021 Esophagogastrostomy, antesternal or antethoracic Vargas Mujica Work Phone: Start: 12-19-2020 Radiologic exam chest 2 views Marjan rangel 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 Work Phone: section Meagan falcon Cholecystectomy Meagan [...] of 2) Zoster Vaccines (1 of 2) [facility] Start: 09-25-2028 Lipid panel Lipid Panel [facility] Start: 09-25-2026 Diabetes mellitus screening Diabetes Screening [facility] Start: 06-02-2026 HPV TESTING HPV TESTING [facility] Start: 06-02-2026 PAP TESTING PAP TESTING [facility] Start: 06-02-2026 Screening for malignant neoplasm of cervix [facility] Start: 09-15-2025 End: 09-15-2025 Patient encounter procedure 09/15/2025 3:20 PM EST Office Visit Cardiology [address] [place] [address] Tomasz Garay MD [address], [address] [place] [address] bradycardia Cardiology Comment on above: bradycardia Start: 04-28-2025 Influenza vaccination Influenza Vaccine (Season Ended) [facility] Start: 01-28-2025 End: 01-28-2025 Patient encounter procedure 01/28/2025 2:30 PM EDT Office Visit [facility] [place] [address] [place] [address] Johanny Marmolejo APRN.H[employer]CHO[employer] EDUCATION TEACHER [address] [place] [address] sooner f/u than pritesh dunn per [facility]- [facility] [place] Comment on above: sooner f/u than pritesh dunn per [facility]- [facility]lk Start: 01-08-2025 End: 07-11-2025 25-hydroxyvitamin D3 [Mass/volume] in Serum or Plasma Vitamin D 25-Hydroxy,Total (for eval of Vitamin D levels) Lab Routine Vitamin D deficiency Expected: 01/08/2025 (Approximate), Expires: 07/11/2025 [facility] Work Phone: Comment on above: Expected: 01/08/2025 (Approximate), Expi res: 07/11/2025 Start: 01-08-2025 End: 07-11-2025 CBC W Auto Differential panel - Blood CBC and Auto Differential Lab Routine Polyarthralgia Expected: 01/08/2025 (Approximate), Expires: 07/11/[address] [facility] Service Area Work Phone: Comment on above: Expected: 01/08/2025 (Approximate), Expi res: 07/11/2025 Start: 01-08-2025 End: 07-11-2025 Cobalamin (Vitamin B12) [Mass/volume] in Serum or Plasma Vitamin B12 Lab Routine Bariatric surgery status Expected: 01/08/2025 (Approximate), Expires: 07/11/2025 [facility] Work Phone: Comment on above: Expected: 01/08/2025 (Approximate), Expi res: 07/11/2025 Start: 01-08-2025 End: 07-11-2025 Comprehensive metabolic 2000 panel - Serum or Plasma Comprehensive Metabolic Panel Lab Routine Fatty liver disease, nonalcoholic Expected: 01/08/2025 (Approximate), Expires: 07/11/2025 [facility] Work Phone: Comment on above: Expected: 01/08/2025 (Approximate), Expi res: 07/11/2025 Start: 01-08-2025 End: 07-11-2025 Ferritin [Mass/volume] in Serum or Plasma Ferritin Lab Routine Fatty liver disease, nonalcoholic Expected: 01/08/2025 (Approximate), Expires: 07/11/2025 [facility] Work Phone: Comment on above: Expected: 01/08/2025 (Approximate), Expi res: 07/11/2025 Start: 01-08-2025 End: 07-11-2025 Iron and Iron binding capacity panel - Serum or Plasma Iron and TIBC Lab Routine Fatty liver disease, nonalcoholic Expected: 01/08/2025 (Approximate), Expires: 07/11/2025 [facility] Work Phone: Comment on above: Expected: 01/08/2025 (Approximate), Expi res: 07/11/2025 Start: 01-08-2025 End: 07-11-2025 Lipid 1996 panel - Serum or Plasma Lipid Panel Lab Routine 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 Class 3 severe obesity due to excess calories with serious comorbidity and body mass index (BMI) of 50.0 to 59.9 in adult Fatty liver disease, nonalcoholic Expected: 01/08/2025 (Approximate), Expires: 07/11/2025 [facility] Work Phone: Comment on above: Expected: 01/08/2025 (Approximate), Expi res: 07/11/2025 Start: 01-08-2025 End: 07-11-2025 Magnesium [Mass/volume] in Serum or Plasma Magnesium Lab Routine Polyarthralgia Expected: 01/08/2025 (Approximate), Expires: 07/11/2025 [facility] Work Phone: Comment on above: Expected: 01/08/2025 (Approximate), Expi res: 07/11/2025 Start: 01-08-2025 End: 07-11-2025 Opiate/Opioid/Benzo Prescription Compliance Opiate/Opioid/Benzo Prescription Compliance Lab Routine Anxiety Medication management Expected: 01/08/2025 (Approximate), Expires: 07/11/2025 [facility] Work Phone: Comment on above: Expected: 01/08/2025 (Approximate), Expi res: 07/11/2025 Start: 01-08-2025 End: 07-11-2025 Thyrotropin [Units/volume] in Serum or Plasma Thyroid Stimulating Hormone Lab Routine 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 Expected: 01/08/2025 (Approximate), Expires: 07/11/2025 [facility] Work Phone: Comment on above: Expected: 01/08/2025 (Approximate), Expi res: 07/11/2025 Start: 01-08-2025 End: 07-11-2025 Thyroxine (T4) free [Mass/volume] in Serum or Plasma Thyroxine, Free Lab Routine 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 Expected: 01/08/2025 (Approximate), Expires: 07/11/2025 [facility] Work Phone: Comment on above: Expected: 01/08/2025 (Approximate), Expi res: 07/11/2025 Start: 12-28-2024 Diabetes mellitus screening Diabetes Screening [facility] Start: 12-24-2024 End: 12-24-2024 Patient encounter procedure 12/24/2024 8:00 AM EDT Office Visit [facility] Internal [facility] [address] [place] [id number] Vargas Mujica PA-C [address] [place] [address] [facility] Start: 11-06-2024 End: 11-06-2025 25-hydroxyvitamin D3 [Mass/volume] in Serum or Plasma Vitamin D 25-Hydroxy,Total (for eval of Vitamin D levels) Lab Routine Vitamin D deficiency Expected: 11/06/2024 (Approximate), Expires: 11/06/2025 [facility] Work Phone: Comment on above: Expected: 11/06/2024 (Approximate), Expi res: 11/06/2025 Start: 11-06-2024 End: 11-06-2025 CBC W Auto Differential panel - Blood CBC and Auto Differential Lab Routine Glucose intolerance (impaired glucose tolerance) Expected: 11/06/2024 (Approximate), Expires: 11/06/[address] [facility] Service Area Work Phone: Comment on above: Expected: 11/06/2024 (Approximate), Expi res: 11/06/2025 Start: 11-06-2024 End: 11-06-2025 Cobalamin (Vitamin B12) [Mass/volume] in Serum or Plasma Vitamin B12 Lab Routine Bariatric surgery status Expected: 11/06/2024 (Approximate), Expires: 11/06/2025 [facility] Work Phone: Comment on above: Expected: 11/06/2024 (Approximate), Expi res: 11/06/2025 Start: 11-06-2024 End: 11-06-2025 Comprehensive metabolic 2000 panel - Serum or Plasma Comprehensive Metabolic Panel Lab Routine Glucose intolerance (impaired glucose tolerance) Expected: 11/06/2024 (Approximate), Expires: 11/06/2025 [facility] Work Phone: Comment on above: Expected: 11/06/2024 (Approximate), Expi res: 11/06/2025 Start: 11-06-2024 End: 11-06-2025 Ferritin [Mass/volume] in Serum or Plasma Ferritin Lab Routine Elevated ferritin level Expected: 11/06/2024 (Approximate), Expires: 11/06/2025 [facility] Work Phone: Comment on above: Expected: 11/06/2024 (Approximate), Expi res: 11/06/2025 Start: 11-06-2024 End: 11-06-2025 Iron and Iron binding capacity panel - Serum or Plasma Iron and TIBC Lab Routine Elevated ferritin level Expected: 11/06/2024 (Approximate), Expires: 11/06/2025 [facility] Work Phone: Comment on above: Expected: 11/06/2024 (Approximate), Expi res: 11/06/2025 Start: 11-06-2024 End: 11-06-2025 Lipid 1996 panel - Serum or Plasma Lipid Panel Lab Routine Glucose intolerance (impaired glucose tolerance) Shahzad's disease Expected: 11/06/2024 (Approximate), Expires: 11/06/2025 [facility] Work Phone: Comment on above: Expected: 11/06/2024 (Approximate), Expi res: 11/06/2025 Start: 11-06-2024 End: 11-06-2025 Magnesium [Mass/volume] in Serum or Plasma Magnesium Lab Routine Bariatric surgery status Expected: 11/06/2024 (Approximate), Expires: 11/06/2025 [facility] Work Phone: Comment on above: Expected: 11/06/2024 (Approximate), Expi res: 11/06/2025 Start: 11-06-2024 End: 11-06-2025 Opiate/Opioid/Benzo Prescription Compliance Opiate/Opioid/Benzo Prescription Compliance Lab Routine Medication management Expected: 11/06/2024 (Approximate), Expires: 11/06/2025 [facility] Work Phone: Comment on above: Expected: 11/06/2024 (Approximate), Expi res: 11/06/2025 Start: 11-06-2024 End: 11-06-2025 Thyrotropin [Units/volume] in Serum or Plasma Thyroid Stimulating Hormone Lab Routine Shahzad's disease Expected: 11/06/2024 (Approximate), Expires: 11/06/2025 [facility] Work Phone: Comment on above: Expected: 11/06/2024 (Approximate), Expi res: 11/06/2025 Start: 11-06-2024 End: 11-06-2025 Thyroxine (T4) free [Mass/volume] in Serum or Plasma Thyroxine, Free Lab Routine Shahzad's disease Expected: 11/06/2024 (Approximate), Expires: 11/06/2025 [facility] Work Phone: Comment on above: Expected: 11/06/2024 (Approximate), Expi res: 11/06/2025 Start: 09-25-2024 Thyroid stimulating hormone measurement TSH Level [facility] Start: 07-11-2024 End: 07-11-2025 FERNANDO + SHAHRIAR Panel [facility] Work Phone: Comment on above: Expected: 07/11/2024 (Approximate), Expi res: 07/11/2025 Start: 07-11-2024 End: 07-11-2025 Cyclic citrullinated peptide IgG Ab [Units/volume] in Serum or Plasma [facility] Work Phone: Comment on above: Expected: 07/11/2024 (Approximate), Expi res: 07/11/2025 Start: 07-11-2024 End: 07-11-2025 XR Cervical spine 2 or 3 Views [facility] Work Phone: Comment on above: Expected: 07/11/2024, Expires: Once for 1 Occurrenc es starting 07/11/2024 until 07/11/2024 Start: 07-11-2024 End: 07-11-2025 XR Lumbar spine 2 or 3 Views [facility] Work Phone: Comment on above: Expected: 07/11/2024, Expires: Once for 1 Occurrenc es starting 07/11/2024 until 07/11/2024 Start: 04-28-2024 Covid-19 Vaccine () Covid-19 Vaccine () [facility] Start: 04-28-2024 Covid-19 Vaccine ( season) Covid-19 Vaccine () [facility] Start: 04-28-2024 Influenza vaccination Influenza Vaccine (#1) [facility] Start: 04-24-2024 End: 05-08-2024 COVID & INFLUENZA A/B & RSV PCR, ROUTINE COVID & INFLUENZA A/B & RSV PCR, ROUTINE Microbiology Routine URI, acute Expected: 04/24/2024, Expires: 05/08/2024 [facility] Work Phone: Comment on above: Expected: 04/24/2024, Expires: Start: 02-28-2024 End: 02-27-2025 25-hydroxyvitamin D3 [Mass/volume] in Serum or Plasma Vitamin D 25-Hydroxy,Total (for eval of Vitamin D levels) Lab Routine Vitamin D deficiency Expected: 02/28/2024 (Approximate), Expires: 02/27/2025 [facility] Work Phone: Comment on above: Expected: 02/28/2024 (Approximate), Expi res: 02/27/2025 Start: 02-28-2024 End: 02-27-2025 C reactive protein [Mass/volume] in Serum or Plasma C-reactive protein Lab Routine Class 3 severe obesity due to excess calories with serious comorbidity and body mass index (BMI) of 50.0 to 59.9 in adult (Multi) Polyarthralgia Expected: 02/28/2024 (Approximate), Expires: 02/27/2025 [facility] Work Phone: Comment on above: Expected: 02/28/2024 (Approximate), Expi res: 02/27/2025 Start: 02-28-2024 End: 02-27-2025 CBC W Auto Differential panel - Blood CBC and Auto Differential Lab Routine Glucose intolerance (impaired glucose tolerance) Expected: 02/28/2024 (Approximate), Expires: 02/27/2025 [facility] Work Phone: Comment on above: Expected: 02/28/2024 (Approximate), Expi res: 02/27/2025 Start: 02-28-2024 End: 02-27-2025 Cobalamin (Vitamin B12) [Mass/volume] in Serum or Plasma Vitamin B12 Lab Routine Glucose intolerance (impaired glucose tolerance) Expected: 02/28/2024 (Approximate), Expires: 02/27/2025 [facility] Work Phone: Comment on above: Expected: 02/28/2024 (Approximate), Expi res: 02/27/2025 Start: 02-28-2024 End: 02-27-2025 Comprehensive metabolic 2000 panel - Serum or Plasma Comprehensive Metabolic Panel Lab Routine Glucose intolerance (impaired glucose tolerance) Expected: 02/28/2024 (Approximate), Expires: 02/27/2025 [facility] Work Phone: Comment on above: Expected: 02/28/2024 (Approximate), Expi res: 02/27/2025 Start: 02-28-2024 End: 02-27-2025 Cortisol [Mass/volume] in Saliva (oral fluid) Salivary Cortisol Lab Routine Class 3 severe obesity due to excess calories with serious comorbidity and body mass index (BMI) of 50.0 to 59.9 in adult (Multi) Polyarthralgia Expected: 02/28/2024 (Approximate), Expires: 02/27/2025 [facility] Work Phone: Comment on above: Expected: 02/28/2024 (Approximate), Expi res: 02/27/2025 Start: 02-28-2024 End: 02-27-2025 Cortisol Free [Mass/volume] in Serum or Plasma Cortisol, Free Lab Routine Class 3 severe obesity due to excess calories with serious comorbidity and body mass index (BMI) of 50.0 to 59.9 in adult (Multi) Polyarthralgia Expected: 02/28/2024 (Approximate), Expires: 02/27/2025 [facility] Work Phone: Comment on above: Expected: 02/28/2024 (Approximate), Expi res: 02/27/2025 Start: 02-28-2024 End: 04-30-2025 DBT Breast - bilateral BI mammo bilateral screening tomosynthesis Imaging Routine Generalized anxiety disorder Expected: 02/28/2024, Expires: 04/30/2025 [facility] Work Phone: Comment on above: Expected: 02/28/2024, Expires: Start: 02-28-2024 End: 02-27-2025 Erythrocyte sedimentation rate Sedimentation Rate Lab Routine Class 3 severe obesity due to excess calories with serious comorbidity and body mass index (BMI) of 50.0 to 59.9 in adult (Multi) Polyarthralgia Expected: 02/28/2024 (Approximate), Expires: 02/27/2025 [facility] Work Phone: Comment on above: Expected: 02/28/2024 (Approximate), Expi res: 02/27/2025 Start: 02-28-2024 End: 02-27-2025 Ferritin [Mass/volume] in Serum or Plasma Ferritin Lab Routine Fatty liver disease, nonalcoholic Elevated ferritin level Expected: 02/28/2024 (Approximate), Expires: 02/27/2025 [facility] Work Phone: Comment on above: Expected: 02/28/2024 (Approximate), Expi res: 02/27/2025 Start: 02-28-2024 End: 02-27-2025 Hemoglobin A1c/Hemoglobin.total in Blood Hemoglobin A1C Lab Routine Glucose intolerance (impaired glucose tolerance) Expected: 02/28/2024 (Approximate), Expires: 02/27/2025 [facility] Work Phone: Comment on above: Expected: 02/28/2024 (Approximate), Expi res: 02/27/2025 Start: 02-28-2024 End: 02-27-2025 Iron and Iron binding capacity panel - Serum or Plasma Iron and TIBC Lab Routine Fatty liver disease, nonalcoholic Elevated ferritin level Expected: 02/28/2024 (Approximate), Expires: 02/27/2025 [facility] Work Phone: Comment on above: Expected: 02/28/2024 (Approximate), Expi res: 02/27/2025 Start: 02-28-2024 End: 02-27-2025 Lipid 1996 panel - Serum or Plasma Lipid Panel Lab Routine Glucose intolerance (impaired glucose tolerance) Expected: 02/28/2024 (Approximate), Expires: 02/27/2025 [facility] Work Phone: Comment on above: Expected: 02/28/2024 (Approximate), Expi res: 02/27/2025 Start: 02-28-2024 End: 02-27-2025 Magnesium [Mass/volume] in Serum or Plasma Magnesium Lab Routine Glucose intolerance (impaired glucose tolerance) Expected: 02/28/2024 (Approximate), Expires: 02/27/2025 [facility] Work Phone: Comment on above: Expected: 02/28/2024 (Approximate), Expi res: 02/27/2025 Start: 02-28-2024 End: 02-27-2025 Thyrotropin [Units/volume] in Serum or Plasma Thyroid Stimulating Hormone Lab Routine 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 Expected: 02/28/2024 (Approximate), Expires: 02/27/2025 [facility] Work Phone: Comment on above: Expected: 02/28/2024 (Approximate), Expi res: 02/27/2025 Start: 02-28-2024 End: 02-27-2025 Thyroxine (T4) free [Mass/volume] in Serum or Plasma Thyroxine, Free Lab Routine 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 Expected: 02/28/2024 (Approximate), Expires: 02/27/2025 [facility] Work Phone: Comment on above: Expected: 02/28/2024 (Approximate), Expi res: 02/27/2025 Start: 02-10-2024 Thyroid stimulating hormone measurement TSH Level [facility] Start: 10-23-2023 End: 10-23-2023 Patient encounter procedure 10/23/2023 7:30 AM EST Appointment [facility] [address] [place] [address] [facility] Start: 10-19-2023 [facility] Start: 10-03-2023 [facility] Start: 09-25-2023 End: 11-23-2024 DBT Breast - bilateral BI mammo bilateral screening tomosynthesis Imaging Routine Encounter for screening mammogram for breast cancer Expected: 09/25/2023, Expires: 11/23/2024 [facility] Work Phone: Comment on above: Expected: 09/25/2023, Expires: Start: 09-25-2023 End: 09-25-2024 Hemoglobin A1c/Hemoglobin.total in Blood [facility] Service Area Work Phone: Comment on above: Expected: 09/25/2023 (Approximate), Expi res: 09/25/2024 Start: 2023 Screening for malignant neoplasm of breast [facility] Start: 04-28-2023 Covid-19 Vaccine ( season) Covid-19 Vaccine ( season) [facility] Start: 04-28-2023 Influenza vaccination [facility] Start: 02-09-2023 End: 02-10-2024 Cyclic citrullinated peptide IgG Ab [Units/volume] in Serum or Plasma [facility] Work Phone: Comment on above: Expected: 02/09/2023 (Approximate), Expi res: 02/10/2024 Start: 02-09-2023 End: 02-10-2024 DNA double strand Ab [Units/volume] in Serum [facility] Service Area Work Phone: Comment on above: Expected: 02/09/2023 (Approximate), Expi res: 02/10/2024 Start: 02-09-2023 End: 02-10-2024 Opiate/Opioid/Benzo Extended Prescription Compliance [facility] Work Phone: Comment on above: Expected: 02/09/2023 (Approximate), Expi res: 02/10/2024 Start: 02-09-2023 End: 02-10-2024 Rheumatoid factor [Units/volume] in Serum by Nephelometry [facility] Work Phone: Comment on above: Expected: 02/09/2023 (Approximate), Expi res: 02/10/2024 Start: 02-09-2023 End: 02-10-2024 Triiodothyronine (T3) Free [Mass/volume] in Serum or Plasma [facility] Work Phone: Comment on above: Expected: 02/09/2023 (Approximate), Expi res: 02/10/2024 Start: 01-05-2023 [facility] Start: 10-25-2022 ELISA, Provider: Vargas Mujica, Status: Pen, Time: 8:00 AM ELISA, Provider: Vargas Mujica, Status: Ryan, Time: 8:00 AM [facility] Work Phone: Start: 10-11-2022 End: 12-11-2022 Parathyrin.intact [Mass/volume] in Serum or Plasma PTH INTACT BLD Lab Routine Increased PTH level Expected: 10/11/2022, Expires: 12/11/2022 [facility] Work Phone: Comment on above: Expected: 10/11/2022, Expires: 3 Start: 10-10-2022 End: 12-10-2022 25-hydroxyvitamin D3 [Mass/volume] in Serum or Plasma [facility] Work Phone: Comment on above: Expected: 10/10/2022, Expires: 3 Start: 10-10-2022 End: 12-10-2022 Basic metabolic 2000 panel - Serum or Plasma [facility] Work Phone: Comment on above: Expected: 10/10/2022, Expires: 3 Start: 10-10-2022 End: 12-10-2022 Cobalamin (Vitamin B12) [Mass/volume] in Serum or Plasma [facility] Work Phone: Comment on above: Expected: 10/10/2022, Expires: 3 Start: 10-10-2022 End: 12-10-2022 Ferritin [Mass/volume] in Serum or Plasma [facility] Work Phone: Comment on above: Expected: 10/10/2022, Expires: 3 Start: 10-10-2022 End: 12-10-2022 Folate [Mass/volume] in Serum or Plasma [facility] Work Phone: Comment on above: Expected: 10/10/2022, Expires: 3 Start: 10-10-2022 End: 12-10-2022 Iron and Iron binding capacity panel - Serum or Plasma [facility] Work Phone: Comment on above: Expected: 10/10/2022, Expires: 3 Start: 10-10-2022 End: 12-10-2022 Parathyrin.intact [Mass/volume] in Serum or Plasma [facility] Work Phone: Comment on above: Expected: 10/10/2022, Expires: 3 Start: 10-10-2022 End: 12-10-2022 VITAMIN B1 (THIAMINE), WHOLE BLOOD [facility] Work Phone: Comment on above: Expected: 10/10/2022, Expires: 3 Start: 09-27-2022 VIRFUVFARRAH, Provider: Josselyn Roblero, Status: Pen, Time: 9:30 AM VIRFUVFARRAH, Provider: Josselyn Roblero, Status: Pen, Time: 9:30 AM [facility] Work Phone: Start: 08-17-2022 Troponin I measurement [facility] Work Phone: Start: 08-17-2022 [facility] Start: 07-27-2022 FUV, Provider: Vargas Mujica, Status: Ryan, Time: 8:20 AM FUV, Provider: Vargas Mujica, Status: Ryan, Time: 8:20 AM [facility] Work Phone: Start: 07-12-2022 End: 09-11-2022 25-hydroxyvitamin D3 [Mass/volume] in Serum or Plasma VITAMIN D 25 HYDROXY Lab Routine S/P laparoscopic sleeve gastrectomy Expected: 07/12/2022, Expires: 09/11/2022 [facility] Work Phone: Comment on above: Expected: 07/12/2022, Expires: 3 Start: 07-12-2022 End: 09-11-2022 Basic metabolic 2000 panel - Serum or Plasma BASIC METABOLIC PNL Lab Routine S/P laparoscopic sleeve gastrectomy Expected: 07/12/2022, Expires: 09/11/2022 [facility] Work Phone: Comment on above: Expected: 07/12/2022, Expires: 3 Start: 07-12-2022 End: 09-11-2022 CBC panel - Blood by Automated count CBC Lab Routine S/P laparoscopic sleeve gastrectomy Expected: 07/12/2022, Expires: 09/11/2022 [facility] Work Phone: Comment on above: Expected: 07/12/2022, Expires: 3 Start: 07-12-2022 End: 09-11-2022 Cobalamin (Vitamin B12) [Mass/volume] in Serum or Plasma VITAMIN B12 BLOOD Lab Routine S/P laparoscopic sleeve gastrectomy Expected: 07/12/2022, Expires: 09/11/2022 [facility] Work Phone: Comment on above: Expected: 07/12/2022, Expires: 3 Start: 07-12-2022 End: 09-11-2022 Ferritin [Mass/volume] in Serum or Plasma FERRITIN BLD Lab Routine S/P laparoscopic sleeve gastrectomy Expected: 07/12/2022, Expires: 09/11/2022 [facility] Work Phone: Comment on above: Expected: 07/12/2022, Expires: 3 Start: 07-12-2022 End: 09-11-2022 Folate [Mass/volume] in Serum or Plasma FOLATE SERUM Lab Routine S/P laparoscopic sleeve gastrectomy Expected: 07/12/2022, Expires: 09/11/2022 [facility] Work Phone: Comment on above: Expected: 07/12/2022, Expires: 3 Start: 07-12-2022 End: 09-11-2022 Iron and Iron binding capacity panel - Serum or Plasma IRON + TIBC Lab Routine S/P laparoscopic sleeve gastrectomy Expected: 07/12/2022, Expires: 09/11/2022 [facility] Work Phone: Comment on above: Expected: 07/12/2022, Expires: 3 Start: 07-12-2022 End: 09-11-2022 Parathyrin.intact [Mass/volume] in Serum or Plasma PTH INTACT BLD Lab Routine S/P laparoscopic sleeve gastrectomy Expected: 07/12/2022, Expires: 09/11/2022 [facility] Work Phone: Comment on above: Expected: 07/12/2022, Expires: 3 Start: 07-12-2022 End: 09-11-2022 VITAMIN B1 (THIAMINE), WHOLE BLOOD VITAMIN B1 (THIAMINE), WHOLE BLOOD Lab Routine S/P laparoscopic sleeve gastrectomy Expected: 07/12/2022, Expires: 09/11/2022 [facility] Work Phone: Comment on above: Expected: 07/12/2022, Expires: 3 Start: 2022 End: 09-03-2022 Hepatic function 2000 panel - Serum or Plasma HEPATIC FUNCTION PNL Lab Routine Hepatic fibrosis Expected: 2022, Expires: 09/03/2022 [facility] Work Phone: Comment on above: Expected: 2022, Expires: 3 Start: 04-28-2022 Influenza vaccination [facility] Start: 04-19-2022 End: 06-19-2022 25-hydroxyvitamin D3 [Mass/volume] in Serum or Plasma VITAMIN D 25 HYDROXY Lab Routine S/P laparoscopic sleeve gastrectomy Expected: 04/19/2022, Expires: 06/19/2022 [facility] Work Phone: Comment on above: Expected: 04/19/2022, Expires: 2 Start: 04-19-2022 End: 06-19-2022 Basic metabolic 2000 panel - Serum or Plasma BASIC METABOLIC PNL Lab Routine S/P laparoscopic sleeve gastrectomy Expected: 04/19/2022, Expires: 06/19/2022 [facility] Work Phone: Comment on above: Expected: 04/19/2022, Expires: 2 Start: 04-19-2022 End: 06-19-2022 CBC panel - Blood by Automated count CBC Lab Routine S/P laparoscopic sleeve gastrectomy Expected: 04/19/2022, Expires: 06/19/2022 [facility] Work Phone: Comment on above: Expected: 04/19/2022, Expires: 2 Start: 04-19-2022 End: 06-19-2022 Cobalamin (Vitamin B12) [Mass/volume] in Serum or Plasma VITAMIN B12 BLOOD Lab Routine S/P laparoscopic sleeve gastrectomy Expected: 04/19/2022, Expires: 06/19/2022 [facility] Work Phone: Comment on above: Expected: 04/19/2022, Expires: 2 Start: 04-19-2022 End: 06-19-2022 Ferritin [Mass/volume] in Serum or Plasma FERRITIN BLD Lab Routine S/P laparoscopic sleeve gastrectomy Expected: 04/19/2022, Expires: 06/19/2022 [facility] Work Phone: Comment on above: Expected: 04/19/2022, Expires: 2 Start: 04-19-2022 End: 06-19-2022 Folate [Mass/volume] in Serum or Plasma FOLATE SERUM Lab Routine S/P laparoscopic sleeve gastrectomy Expected: 04/19/2022, Expires: 06/19/2022 [facility] Work Phone: Comment on above: Expected: 04/19/2022, Expires: 2 Start: 04-19-2022 End: 06-19-2022 Iron and Iron binding capacity panel - Serum or Plasma IRON + TIBC Lab Routine S/P laparoscopic sleeve gastrectomy Expected: 04/19/2022, Expires: 06/19/2022 [facility] Work Phone: Comment on above: Expected: 04/19/2022, Expires: 2 Start: 04-19-2022 End: 06-19-2022 Parathyrin.intact [Mass/volume] in Serum or Plasma PTH INTACT BLD Lab Routine S/P laparoscopic sleeve gastrectomy Expected: 04/19/2022, Expires: 06/19/2022 [facility] Work Phone: Comment on above: Expected: 04/19/2022, Expires: 2 Start: 04-19-2022 End: 06-19-2022 VITAMIN B1 (THIAMINE), WHOLE BLOOD VITAMIN B1 (THIAMINE), WHOLE BLOOD Lab Routine S/P laparoscopic sleeve gastrectomy Expected: 04/19/2022, Expires: 06/19/2022 [facility] Work Phone: Comment on above: Expected: 04/19/2022, Expires: 2 Start: 04-05-2022 End: 06-05-2022 CBC panel - Blood by Automated count CBC Lab Routine Thrombocytopenia (HCC) Expected: 04/05/2022, Expires: 06/05/2022 [facility] Work Phone: Comment on above: Expected: 04/05/2022, Expires: 2 Start: 03-30-2022 FUV, Provider: Vargas Mujica, Status: Pen, Time: 8:40 AM FUV, Provider: Vargas Mujica, Status: Ryan, Time: 8:40 AM [facility] Work Phone: Start: 03-01-2022 End: 03-01-2023 SARS-CoV-2 (COVID-19) RNA [Presence] in Respiratory specimen by ALISON with probe detection PRE-PROCEDURE & PRE-OPERATIVE COVID Microbiology Routine Morbid obesity (HCC) Expected: 03/01/2022, Expires: 03/01/2023 [facility] Work Phone: Comment on above: Expected: 03/01/2022, Expires: 3 Start: 02-08-2022 End: 04-10-2022 Hepatic function 2000 panel - Serum or Plasma HEPATIC FUNCTION PNL Lab Routine TORRES (nonalcoholic steatohepatitis) Increased liver enzymes Expected: 02/08/2022, Expires: 04/10/2022 [facility] Work Phone: Comment on above: Expected: 02/08/2022, Expires: 2 Start: 02-01-2022 FUV, Provider: Vargas Mujica, Status: Ryan, Time: 9:20 AM FUV, Provider: Vargas Mujica, Status: Ryan, Time: 9:[address] [facility] Medicine Work Phone: Start: 01-13-2022 End: 01-13-2023 FERNANDO BY IFA SCREEN [facility] Work Phone: Comment on above: Expected: 01/13/2022, Expires: 3 Start: 01-13-2022 End: 03-15-2022 LIVER FIBROSIS AND ACTIVITY [facility] Work Phone: Comment on above: Expected: 01/13/2022, Expires: 2 Start: 01-03-2022 End: 03-05-2022 ALPHA 1 ANTITRYP PHEN/GENOTYPE ALPHA 1 ANTITRYP PHEN/GENOTYPE Lab Routine Dyspnea and respiratory abnormalities Expected: 01/03/2022, Expires: 03/05/2022 [facility] Work Phone: Comment on above: Expected: 01/03/2022, Expires: 2 Start: 01-03-2022 End: 03-05-2022 ALPHA 1 ANTITRYPSIN PHENOTYPE ALPHA 1 ANTITRYPSIN PHENOTYPE Lab Routine Dyspnea and respiratory abnormalities Expected: 01/03/2022, Expires: 03/05/2022 [facility] Work Phone: Comment on above: Expected: 01/03/2022, Expires: 2 Start: 11-19-2021 End: 01-19-2022 CBC panel - Blood by Automated count CBC Lab Routine Class 3 severe obesity due to excess calories with serious comorbidity and body mass index (BMI) of 60.0 to 69.9 in adult (FORM[facility]LY [facility]) Expected: 11/19/2021, Expires: 01/19/2022 [facility] Work Phone: Comment on above: Expected: 11/19/2021, Expires: 2 Start: 11-19-2021 End: 01-19-2022 Comprehensive metabolic 2000 panel - Serum or Plasma COMP METABOLIC PANEL Lab Routine Class 3 severe obesity due to excess calories with serious comorbidity and body mass index (BMI) of 60.0 to 69.9 in adult ([facility]) Expected: 11/19/2021, Expires: 01/19/2022 [facility] Work Phone: Comment on above: Expected: 11/19/2021, Expires: 2 Start: 11-19-2021 End: 01-19-2022 FERRITIN BLD FERRITIN BLD Lab Routine Class 3 severe obesity due to excess calories with serious comorbidity and body mass index (BMI) of 60.0 to 69.9 in adult ([facility]) Expected: 11/19/2021, Expires: 01/19/2022 [facility] Work Phone: Comment on above: Expected: 11/19/2021, Expires: 2 Start: 11-19-2021 End: 01-19-2022 Folate [Mass/volume] in Serum or Plasma FOLATE SERUM Lab Routine Class 3 severe obesity due to excess calories with serious comorbidity and body mass index (BMI) of 60.0 to 69.9 in adult ([facility]) Expected: 11/19/2021, Expires: 01/19/2022 [facility] Work Phone: Comment on above: Expected: 11/19/2021, Expires: 2 Start: 11-19-2021 End: 01-19-2022 IRON + TIBC IRON + TIBC Lab Routine Class 3 severe obesity due to excess calories with serious comorbidity and body mass index (BMI) of 60.0 to 69.9 in adult ([facility]) Expected: 11/19/2021, Expires: 01/19/2022 [facility] Work Phone: Comment on above: Expected: 11/19/2021, Expires: 2 Start: 11-19-2021 End: 01-19-2022 PTH INTACT BLD PTH INTACT BLD Lab Routine Class 3 severe obesity due to excess calories with serious comorbidity and body mass index (BMI) of 60.0 to 69.9 in adult ([facility]) Expected: 11/19/2021, Expires: 01/19/2022 [facility] Work Phone: Comment on above: Expected: 11/19/2021, Expires: 2 Start: 11-19-2021 End: 01-19-2022 VITAMIN B1 (THIAMINE), WHOLE BLOOD VITAMIN B1 (THIAMINE), WHOLE BLOOD Lab Routine Class 3 severe obesity due to excess calories with serious comorbidity and body mass index (BMI) of 60.0 to 69.9 in adult ([facility]) Expected: 11/19/2021, Expires: 01/19/2022 [facility] Work Phone: Comment on above: Expected: 11/19/2021, Expires: 2 Start: 11-19-2021 End: 01-19-2022 VITAMIN B12 BLOOD VITAMIN B12 BLOOD Lab Routine Class 3 severe obesity due to excess calories with serious comorbidity and body mass index (BMI) of 60.0 to 69.9 in adult ([facility]) Expected: 11/19/2021, Expires: 01/19/2022 [facility] Work Phone: Comment on above: Expected: 11/19/2021, Expires: 2 Start: 11-19-2021 End: 01-19-2022 VITAMIN D 25 HYDROXY VITAMIN D 25 HYDROXY Lab Routine Class 3 severe obesity due to excess calories with serious comorbidity and body mass index (BMI) of 60.0 to 69.9 in adult (HCC) Expected: 11/19/2021, Expires: 01/19/2022 [facility] Work Phone: Comment on above: Expected: 11/19/2021, Expires: 2 Start: 10-28-2021 FUV, Provider: Josselyn Roblero, Status: Pen, Time: 8:30 AM FUV, Provider: Josselyn Roblero, Status: Pen, Time: 8:30 AM [facility] Work Phone: Start: 05-25-2021 FUV, Provider: Vargas Mujica, Status: Pen, Time: 3:40 PM FUV, Provider: Vargas Mujica, Status: Pen, Time: 3:40 PM [facility] Work Phone: Start: 04-28-2021 Influenza vaccination INFLUENZA (#1) [facility] Start: 02-16-2020 ANNUAL PCP TEAM CHRONIC DISEASE VISIT ANNUAL PCP TEAM CHRONIC DISEASE VISIT [facility] Start: 10-23-2017 Hepatitis A Vaccines (2 of 3 - Hep A Twinrix risk 3-dose series) Hepatitis A Vaccines (2 of 3 - Hep A Twinrix risk 3-dose series) [facility] Start: 10-23-2017 HEPATITIS B (2 of 3 - Hep B Twinrix 3-dose series) HEPATITIS B (2 of 3 - Hep B Twinrix 3-dose series) [facility] Start: 10-23-2017 Hepatitis B Vaccine (2 of 3 - Hep B Twinrix 3-dose series) Hepatitis B Vaccine (2 of 3 - Hep B Twinrix 3-dose series) [facility] Start: 10-23-2017 Hepatitis B Vaccines (2 of 3 - Hep B Twinrix 3-dose series) Hepatitis B Vaccines (2 of 3 - Hep B Twinrix 3-dose series) [facility] Start: 2005 DTaP/Tdap/Td Vaccines (1 - Tdap) DTaP/Tdap/Td Vaccines (1 - Tdap) [facility] Start: 2004 Screening for malignant neoplasm of cervix [facility] Start: 2002 Urine microalbumin profile [facility] Start: 2001 Annual PCP Team Chronic Disease Visit Annual PCP Team Chronic Disease Visit [facility] Start: 2001 Anxiety Screening Anxiety Screening [facility] Start: 2001 HIV SCREENING HIV SCREENING [facility] Start: 2001 HIV screening HIV Screening [facility] Start: 1996 Varicella vaccination Varicella Vaccines (1 of 2 - 13+ 2-dose series) [facility] Start: 1988 COVID-19 VACCINE (#1) COVID-19 VACCINE (#1) [facility] Start: 1988 COVID-19 VACCINE (1) COVID-19 VACCINE (1) [facility] Start: 1984 MMR Vaccines (1 of 1 - Standard series) MMR Vaccines (1 of 1 - Standard series) [facility] Start: 1984 Varicella vaccination Varicella Vaccines (1 of 2 - 2-dose childhood series) [facility] Start: 01-02-1984 COVID-19 VACCINE (#1) COVID-19 VACCINE (#1) [facility] Start: 1983 HIV screening HIV Screening [facility] Start: 1983 Lipid panel Lipid Panel [facility] Start: 1983 Yearly Adult Physical Yearly Adult Physical [facility] Confirmation Opiate/Opioid/Benzo Prescription Compliance Confirmation Opiate/Opioid/Benzo Prescription Compliance Lab Routine Anxiety Medication management 02/28/2024 2:51 PM EDT [facility] Work Phone: End: 05-19-2023 Ct abdomen & pelvis w/contrast material CT ABD/PEL W IVCON Radiology STAT S/P laparoscopic sleeve gastrectomy Right sided abdominal pain 1 Occurrences starting 04/19/2022 until 05/19/2023 [facility] Work Phone: Comment on above: 1 Occurrences starting 04/19/2022 until 05/19/2023 End: 02-27-2026 CT Heart and Coronary arteries for calcium scoring WO contrast CT CALCIUM SCORING SELF PAY Radiology Routine Sinus bradycardia Encounter for screening for cardiovascular disorders 1 Occurrences starting 01/28/2025 until 02/27/2026 [facility] Comment on above: 1 Occurrences starting 01/28/2025 until 02/27/2026 End: 02-02-2023 Ct thorax w/o contrast material CT CHEST WO IVCON Radiology Routine Shortness of breath 1 Occurrences starting 01/03/2022 until 02/02/2023 [facility] Work Phone: Comment on above: 1 Occurrences starting 01/03/2022 until 02/02/2023 End: 02-02-2023 LUNG DIFFUSION CAPACITY (DLCO) LUNG DIFFUSION CAPACITY (DLCO) PFT Routine Dyspnea and respiratory abnormalities 1 Occurrences starting 01/03/2022 until 02/02/2023 [facility] Work Phone: Comment on above: 1 Occurrences starting 01/03/2022 until 02/02/2023 LUNG DIFFUSION CAPAC ITY (DLCO) LUNG DIFFUSION CAPACITY (DLCO) PFT Routine Dyspnea and respiratory abnormalities 02/02/2022 6:03 AM EDT [facility] Work Phone: End: 02-02-2023 LUNG VOLUMES LUNG VOLUMES PFT Routine Dyspnea and respiratory abnormalities 1 Occurrences starting 01/03/2022 until 02/02/2023 [facility] Work Phone: Comment on above: 1 Occurrences starting 01/03/2022 until 02/02/2023 LUNG VOLUMES LUNG VOLUMES PFT Routine Dyspnea and respiratory abnormalities 02/02/2022 6:03 AM EDT [facility] Work Phone: OOB Internal Tracking 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 Development Manager al Tracking Lab Routine Anxiety Medication management 02/28/2024 2:51 PM EDT [facility] Work Phone: OPIATE/OPIOID/BENZO PRESCRIPTION COMPLIANCE OPIATE/OPIOID/BENZO PRESCRIPTION COMPLIANCE Lab Routine Anxiety Medication management 02/09/2023 4:22 PM EDT [facility] Work Phone: Opiate/Opioid/Benzo Prescription Compliance Opiate/Opioid/Benzo Prescription Compliance Lab Routine Anxiety Medication management 02/28/2024 2:51 PM EDT [facility] Work Phone: OUTSIDE VENDOR CARDI AC OUTPATIENT EXTENDED RHYTHM RECORDING (WITHOUT TELEMETRY) OUTSIDE VENDOR CARDIAC OUTPATIENT EXTENDED RHYTHM RECORDING (WITHOUT TELEMETRY) Holter Routine Dizzy Ordered: 01/09/2023 [facility] Work Phone: Comment on above: Ordered: 01/09/2023 OUTSIDE VENDOR CARDI AC OUTPATIENT EXTENDED RHYTHM RECORDING (WITHOUT TELEMETRY) OUTSIDE VENDOR CARDIAC OUTPATIENT EXTENDED RHYTHM RECORDING (WITHOUT TELEMETRY) Holter Routine Sinus bradycardia Encounter for screening for cardiovascular disorders Ordered: 01/28/2025 [facility] Work Phone: Comment on above: Ordered: 01/28/2025 Patient Education [facility] Work Phone: Patient referral [facility] Work Phone: Screen Opiate/Opioid/Benzo Prescription Compliance Screen Opiate/Opioid/Benzo Prescription Compliance Lab Routine Anxiety Medication management 02/28/2024 2:52 PM EDT [facility] Work Phone: End: 02-02-2023 SPIROMETRY - BASELINE AND POST DILATOR SPIROMETRY - BASELINE AND POST DILATOR PFT Routine Dyspnea and respiratory abnormalities 1 Occurrences starting 01/03/2022 until 02/02/2023 [facility] Work Phone: Comment on above: 1 Occurrences starting 01/03/2022 until 02/02/2023 SPIROMETRY - BASELIN E AND POST DILATOR SPIROMETRY - BASELINE AND POST DILATOR PFT Routine Dyspnea and respiratory abnormalities 02/02/2022 6:03 AM EDT [facility] Work Phone: Troponin I measurement [facility] Work Phone: End: 02-12-2023 Us abdominal real time w/image documentation US ABDOMEN COMPLETE Radiology Routine Fatty liver Increased liver enzymes 1 Occurrences starting 01/13/2022 until 02/12/2023 [facility] Work Phone: Comment on above: 1 Occurrences starting 01/13/2022 until 02/12/2023 Us abdominal real ti me w/image documentation US ABDOMEN COMPLETE Radiology Routine Fatty liver Increased liver enzymes 02/02/2022 7:43 AM EDT [facility] Work Phone: [facility] Immunizations Immunization Date Immunization Notes Care Provider [facility] 09-18-2018 influenza, injectabl e, quadrivalent, preservative free [facility] 09-18-2018 influenza, seasonal, injectable Marjan Gromovsky 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 Work Phone: [facility] Work Phone: 09-18-2018 influenza, seasonal, injectable, preservative free Vargas Mujica Work Phone: [facility] 09-18-2018 influenza virus vaccine, unspecified formulation Vargas Mujica PA-C Work Phone: [facility] Work Phone: 09-25-2017 hepatitis A and hepatitis B vaccine Vargas Mujica Work Phone: [facility] 09-25-2017 hepatitis B vaccine, unspecified formulation Marjan Gromovsky 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 2022 Unknown [address] OA [id number] 2021-Present [phone] [facility] [id number] [place] [address] Open Access [id number] 2021 Private Health Insurance [id number] 2019 Private Health Insurance [id number] 2017 Unknown [id number] 1983 Unknown [id number] 2.16840.1.980021.3.579.2.2 78 1983 Unknown [id number] 2.16840.1.422392.3.579.2.3 56 1983 Unknown [id number] 2.16840.1.266197.3.579.2.3 56 1983 Unknown [id number] 2.840.1.404968.3.579.2.3 56 1983 Unknown [id number] 2.16840.1.612314.3.579.2.3 56 1983 Unknown [id number] 2.16840.1.358920.3.579.2.3 56 1983 Unknown [id number] 2.16840.1.864523.3.579.2.3 56 1983 Unknown [id number] 2.16840.1.883956.3.579.2.3 56 1983 Unknown [id number] 2.16.840.1.226502.3.579.2.1 069 1983 Unknown [id number] 2.16.840.1.177898.3.579.2.1 243 1983 Unknown [id number] 2.16.840.1.471109.3.579.2.1 243 1983 Unknown [id number] 2.16.840.1.994939.3.579.2.1 245 1983 Unknown [id number] 2.16.840.1.468172.3.579.2.1 245 1983 Unknown [id number] 2.16.840.1.443684.3.579.2.1 244 1983 Unknown [id number] 2.16840.1.096224.3.579.2.1 244 Private Health Insurance [facility] [id number] Unknown [id number] 2.16.840.1.570036.3.579.2.4 62 Unknown [id number] 2.16.840.1.392755.3.579.2.4 62 Unknown [id number] 2.16.840.1.818460.3.579.2.4 62 Unknown [id number] 2.16840.1.081257.3.579.2.4 62 Unknown [id number] 2.16.840.1.437333.3.579.2.4 62 Unknown [id number] 2.16.840.1.063239.3.579.2.4 62 Unknown [id number] 2.16.840.1.624352.3.579.2.4 62 Unknown [id number] 2.16.840.1.603399.3.579.2.4 62 Unknown [id number] 2.16.840.1.607392.3.579.2.4 62 Unknown [id number] 2.16.840.1.567742.3.579.2.4 62 Unknown [id number] 2.16.840.1.408096.3.579.2.4 62 Unknown [id number] 2.16.840.1.148297.3.579.2.4 62 Unknown [id number] 2.16.840.1.167027.3.579.2.4 62 Unknown [id number] 2.16.840.1.552100.3.579.2.4 62 Unknown [id number] 2.16.840.1.480825.3.579.2.4 62 Unknown [id number] 2.16.840.1.115894.3.579.2.4 62 Unknown [id number] 2.16.840.1.530518.3.579.2.4 62 Unknown [id number] 2.16.840.1.908728.3.579.2.4 62 Social History Date Type Detail Facility Start: 06-26-2019 End: 01-28-2025 Former smoker Former smoker [facility] Work Phone: Start: 06-26-2019 End: 04-24-2024 Tobacco smoking status NHIS Ex-smoker [facility] Start: 08-28-2009 End: 08-28-2019 History of tobacco use Current smoker [facility] Start: 08-28-2009 End: 08-28-2019 History of tobacco use Cigarette Smoker [facility] Start: 06-26-2019 End: 04-24-2024 Tobacco use and exposure Smokeless tobacco non-user [facility] Start: 11-19-2021 End: 06-07-2024 Alcohol intake Ex-drinker (finding) [facility] Start: 03-15-2019 End: 04-06-2022 Tobacco Comment total quit 2017. currently 5 cigarettes/month [facility] Start: 1985 Sex Assigned At Female C [facility] Start: 11-19-2020 End: 11-06-2024 Exposure to SARS-CoV-2 (event) Not sure [facility] Start: 03-25-2022 End: 04-11-2022 Exposure to SARS-CoV-2 (event) Yes [facility] Start: 08-17-2022 End: 10-19-2023 Tobacco smoking status NHIS Unknown if ever smoked [facility] Start: 06-07-2020 None [facility] Start: 06-07-2020 With Family [facility] Start: 06-23-2020 Non-smoker [facility] Start: 02-09-2023 Alcohol intake Current drinke r of alcohol (finding) [facility] Work Phone: Start: 02-09-2023 End: 01-28-2025 Tobacco use panel [facility] Work Phone: Start: 02-08-2023 Alcohol Comment OCCASIONALLY [facility] Work Phone: Start: 1985 Sex Assigned At Not on file U [facility] Work Phone: Tobacco smoking status No Smoking Status Entered [facility] PHQ2 Score 0 [facility] Work Phone: Start: 06-07-2021 Gender identity Identifies as female gender (finding) [facility] Start: 06-07-2021 Sexual orientation Heterosexual (huan light) [facility] NEGATED: Highlighted row - - [facility] Work Phone: NEGATED: Highlighted row [facility] Goals Date Patient Goal Desired Activity /State Personal health goal Personal health goal Personal health goal Personal health goal Functional Status Date Assessment Result Facility 05-15-2023 Functional Status [facility] Functional Status ID band on, Allergy Band on, Call device within reach, Bed in low position, Wheels locked, Upper/Half-Length side-rails up, Visitor at bedside [facility] 09-26-2018 Are you deaf, or do you have serious difficulty hearing No 09/26/2018 2:05 PM Mabel Bates (Rn) (Hist), RN No [facility] 09-26-2018 Are you blind, or do you have serious difficulty seeing, even when wearing glasses No 09/26/2018 2:05 PM Mabel BatesRn) (Hist), RN No [facility] 09-26-2018 Do you have serious difficulty walking or climbing stairs No 09/26/2018 2:05 PM Mabel BatesRn) (Hist), RN No [facility] 09-26-2018 Do you have difficul ty dressing or bathing No 09/26/2018 2:05 PM Mabel BatesRn) (Hist), RN No [facility] 09-26-2018 Because of a physica l, mental, or emotional condition, do you have difficulty doing errands alone such as visiting a physician's office or shopping No 09/26/2018 2:05 PM Mabel BatesRn) (Hist), RN No [facility] NEGATED: Highlighted row Functional performance Functional status health issues are not documented Disease [facility] Work Phone: Mental Status Date Assessment Result Facility 10-19-2023 Cognitive function Level Of Cons ciousness Awake;Alert;Appropriate ;Follows Commands [facility] Work Phone: 10-03-2023 Cognitive function Level Of Cons ciousness Awake;Alert;Appropriate ;Follows Commands [facility] Work Phone: 05-15-2023 Mental Status Orientation Orie nted x 4 [facility] 05-15-2023 Mental Status [facility] 01-05-2023 Cognitive function Awake;Alert;Appropriat e [facility] Work Phone: 11-15-2022 Cognitive function Voice/Name [facility] Work Phone: 08-17-2022 Cognitive function Voice/Name [facility] Work Phone: 09-26-2018 Because of a physical, mental, or emotional condition, do you have serious difficulty concentrating, remembering, or making decisions No 09/26/2018 2:05 PM Mabel Bates) (Hist), RN No [facility] NEGATED: Highlighted row Cognitive function [Interpretation] Cognitive status health issues are not documented Disease [facility] Work Phone: [...] and she voiced understanding. Lexis Owen RN [facility] 02-10-2025 Miscellaneous Notes Curly Cowart returned call. Relayed holter results and she voiced understanding. Lexis Owen RN LVM and sent my chart message with results. Lexis Owen RN ----- Message from Johanny Marmolejo APRN.H[employer]CHO[employer] EDUCATION TEACHER sent at 02/10/2025 2:41 PM EDT ----- [...] was Sinus Rhythm. documented in this encounter [facility] 02-10-2025 Telephone encounter Note LVM and sent my chart message with results. Lexis Owen RN [facility] 02-10-2025 Telephone encounter Note ----- Message [...] bpm. Predominant underlying rhythm was Sinus Rhythm. [facility] 02-10-2025 Progress note Formatting of t [...] bpm. Predominant underlying rhythm was Sinus Rhythm. [facility] Work Phone: 01-29-2025 Telephone encounter Note Order faxed. Confirmation received. Boris Roberts RN [facility] 01-29-2025 Miscellaneous Notes Order faxed. Confirmation received. Boris Roberts RN [facility] asking for an order for Calcium Scoring to be faxed to [phone]. Johanny Meredith LPN documented in this encounter [facility] 01-29-2025 Telephone encounter Note [facility] asking for an order for Calcium Scoring to be faxed to [phone]. Johanny Meredith LPN [facility] 01-28-2025 Instructions Johanny Marmolejo APRN.[facility] - 01/28/2025 2:54 PM EDT Heart Disease in Women Is heart disease a problem for women? Heart disease is the leading cause of of [place] women. More women from heart disease than [...] disease. You can get more information from: [place] [facility] Yuzvnbbyzbs9-738-HLV-USA-1 ( )www.heart.org Developed by [employer]. Published by [employer]. Copyright 2014 linkedü and/or one of its subsidiaries. All rights reserved. documented in this encounter [facility] 01-28-2025 History of Present illness Narrative Chief Complaint Patient presents with: Cardiology Follow Up - Generic: sooner f/u than [place] - bradycardia History of Present Illness: Curly Cowart is a very pleasant 39 year old female who presents for symptom concerns. 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 She is known to [...] is currently working with a dietitian through [employer] to improve her health and manage her [...] up Dr. Garay's first available appointment in [place] on 09/15/2025. PAST MEDICAL HISTORY Diagnosis Date Sntks-0-vlcakptdpof deficiency (HCC) Cardiac dysrhythmia, unspecified 2007 Depressive [...] coils in fallopian tubes S BALLOON,UTERINE ABLATION 79277 2009 SHX CARDIAC RADIOFREQUENCY ABLATION 2018 ventricular TONSILLECTOMY PRIMARY/SECONDARY <AGE 12 2004 Tonsillectomy, wisdom teeth FAMILY HISTORY Problem Relation [...] date: 2009 Quit date: 2020 Years since quittin.4 Smokeless tobacco: Never Tobacco [...] coronary artery disease; patient to schedule at [facility]. - Consider follow-up with functional medicine or [...] 2025, 12:51 PM documented in this encounter [facility] 01-28-2025 Note HNO ID: [id number] Author: JOHANNY MARMOLEJO APRN.CNP Service: ? 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 She is known to [...] is currently working with a dietitian through [employer] to improve her health and manage her [...] up Dr. Garay's first available appointment in [place] on 09/15/2025. PAST MEDICAL HISTORY Diagnosis Date Cykje-6-zkifxtltqvh deficiency (HCC) Cardiac dysrhythmia, unspecified 2007 Depressive [...] coils in fallopian tubes S BALLOON,UTERINE ABLATION 78630 2009 SHX CARDIAC RADIOFREQUENCY ABLATION 2018 ventricular [...] since qu (more content not included)... [facility] 01-28-2025 Note HNO ID: [id number] Author: EDITH MURRAY MD Service: ? Author [...] MD February 11, 2025 9:32 AM [facility] 01-13-2025 Telephone encounter Note Pt called back in. Pt scheduled 01/28/2025 with Caridad Junior [facility] 01-13-2025 Miscellaneous Notes Pt called back in. Pt scheduled 01/28/2025 with Caridad Junior Called pt and left voicemail stating we could get her in sooner if she is willing to come to [place]. Waiting to hear back from pt if [...] sooner if possible. documented in this encounter [facility] 01-13-2025 Telephone encounter Note Called pt and left voicemail stating we could get her in sooner if she is willing to come to [place]. Waiting to hear back from pt if she would like to reschedule. Sada Membreno [facility] 01-09-2025 Telephone encounter Note Patient calling [...] requesting to be seen sooner if possible. [facility] 11-06-2024 History of Present illness Narrative Subjective Patient ID: Curly Cowart is a 39 y.o. female who presents for Follow-up (C/O LIVER PAIN AND DISCUSS SOMETHING FOR WEIGHT LOSS. C/O TENDONITIS ON/OFF LT FOOT IBUPROFEN IS NOT HELPING ) HPI Labs- done in [place] February 2024 and also Aug/Sep 2023 in [place] Pain Polyarthralgia / stiffness Polyarthralgia and has [...] medication(s). Patient Active Problem List Diagnosis AAT (vfngg-7-myzsirgaqud) deficiency (Multi) Abnormal EKG Bilateral hand numbness [...] anxiety disorder PTSD (post-traumatic stress disorder) Sacroiliitis ([facility]) H/O cardiac radiofrequency ablation Hypothyroidism due [...] labs from Aug 2023 Reviewed labs from summer Impression MDM 1) COMPLEXITY: 1 UNDIAGNOSED NEW [...] List Items Addressed This Visit ICD-10-CM AAT (htmts-9-wgjxnswfnev) deficiency (Multi) E88.01 Vitamin D deficiency E55.9 [...] FU in 2-6 weeks with labs at [place] fasting and med check / wt check Call to start wegovy pending labs if she wishes and insurance/cost documented in this encounter [facility] Work Phone: 07-11-2024 History of Present [...] medication(s). Patient Active Problem List Diagnosis AAT (elbkq-4-evgshmdqhcz) deficiency (Multi) Abnormal EKG Bilateral hand numbness [...] Behavior: Behavior normal. Testing Reviewed labs from [place] LFT were Wnl Thyroid WNL Glucose - [...] pain check / auto-immune labs PT - [place] Spine, bilat UE FU in 6-7 mo with labs at [place] and med check documented in this encounter [facility] Work Phone: 07-11-2024 Reason for visit Narrative Specialty Diagnoses / Procedures Referred By Donna longoria Referred To Contact Radiology Diagnoses Cervicalgia Procedures XR cervical spine 2-3 views Vargas Mujica PA-C [address] [place] [address] Phone: tel: fax: Referral ID Status Reason Start Date Expiration Date Visits Requested Visits Authorized [id number] Authorized Perform Procedure 4 07/11/2025 1 1 [facility] Work Phone: 1(158) 290-160210-11-2024 History of Present illness Narrative* Leslie Goldman, [...] PATIENT PRESENTS WITH AN IMPLANTABLE OR ATTACHED FABRICATOR FOAM RUBBER: No RADIOLOGY DEPARTMENT: General X-ray: Exam(s) Completed: Lower Extremity X- Ray(s): Foot, Left PERIPHERAL IV DATA: Not applicable SIGNED BY: RT Regine(Duncan) June 07, 2024 4:21 PM documented [facility] NoteHNO ID: [id number] Author: LESLIE GOLDMAN RT(R) Service: Radiology Author [...] PATIENT PRESENTS WITH AN IMPLANTABLE OR ATTACHED FABRICATOR FOAM RUBBER: No RADIOLOGY DEPARTMENT: General X-ray: Exam(s) Completed: Lower Extremity X-Ray(s): Foot, Left PERIPHERAL IV DATA: Not applicable SIGNED BY: KYLE Weiner) June 07, 2024 4:21 [facility]10-11-2024 NoteHNO ID: [id number] Author: CHLOÉ TIPTON APRN.HIGH SCHOOL SPECIAL EDUCATION TEACHER Service: ? Author Type: Nurse Practitioner Type: [...] and agreement with this plan. Chloé Tipton [facility] History of Present illness Narrative* Chloé Tipton APRN.HIGH SCHOOL SPECIAL EDUCATION TEACHER - 06/07/2024 4:14 PM EDT Images from [...] and agreement with this plan. Chloé Tipton APRN.HIGH SCHOOL SPECIAL EDUCATION TEACHER documented in this [facility]08-[facility] History of Present illness Narrative* Trung [...] PATIENT PRESENTS WITH AN IMPLANTABLE OR ATTACHED FABRICATOR FOAM RUBBER: No RADIOLOGY DEPARTMENT: General X-ray: Exam(s) Completed: Chest X-Ray PERIPHERAL IV DATA: Not applicable SIGNED BY: RT Tonny(R) April 24, 2024 4:06 PM documented in this encounterNew[facility]08-28-2024 NoteHNO ID: [id number] Author: TRUNG MORENO RT(R) Service: ? Author Type: Automotive Starter Repairer Type: Progress Notes Filed: 04/24/2024 16:13 Note [...] PATIENT PRESENTS WITH AN IMPLANTABLE OR ATTACHED FABRICATOR FOAM RUBBER: No RADIOLOGY DEPARTMENT: General X-ray: Exam(s) Completed: Chest X-Ray PERIPHERAL IV DATA: Not applicable SIGNED BY: RT Tonny(Duncan) April 24, 2024 4:06 [facility]08-28-2024 NoteHNO ID: [id number] Author: DELFIN JAIN APRN.SWATI Service: ? 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 No date: Irritable bowel syndrome No date: Morbid obesity ([facility]) Comment: stated BMI 47.3 No date: BRISEYDA (obstructive sleep apnea) No date: Other chronic nonalcoholic liver disease No date: Personal history of tobacco use, presenting hazards to health Comment: 1/2 ppd x 5 years; quit 08/18/14 - restarted and quit in 07/2021: Pneumonia due to COVID-19 virus No date: Pulmonary embolism ([facility]) Comment: after PICC line No date: V-tach ([facility]) PAST SURGICAL HISTORY 2003: DELIVERY ONLY Comment: , low cervical 01/08/2008: CHOLECYSTECTOMY 04/2021: EGD 02/2021: EGD 04/11/2022: LAPAROSCOPIC GASTRECTOMY 2011: LAPAROSCOPIC UTERINE NERVE ABLATION 2008: LIVER BIOPSY 09/21/2018: MIDLINE CATHETER Comment: 2010: PAST SURGICAL HISTORY OF Comment: spring coils in fallopian tubes 2010: S BALLOON,UTERINE ABLATION [id number] 2019: SHX CARDIAC RADIOFREQUENCY ABLATION Comment: ventricular [...] PCR, ROUTINE 2. A (more content not included)...[facility] History of Present illness Narrative* Delfin Jain APRN.HIGH SCHOOL SPECIAL EDUCATION TEACHER - 04/24/2024 3:31 PM EDT CC: Patient [...] air exchange PAST MEDICAL HISTORY No date: Vztll-9-ccjdxdsxwfl deficiency ([facility]) 2007: Cardiac dysrhythmia, unspecified No date: Depressive disorder, not elsewhere classified No date: DVT (deep venous thrombosis) ([facility]) Comment: after PICC line No date: Esophageal reflux 04/09/2015: 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 No date: Irritable bowel syndrome No date: Morbid obesity ([facility]) Comment: stated BMI 47.3 No date: BRISEYDA (obstructive sleep apnea) No date: Other chronic nonalcoholic liver disease No date: Personal history of tobacco use, presenting hazards to health Comment: 1/2 ppd x 5 years; quit 08/18/14 - restarted and quit in 07/2021: Pneumonia due to COVID-19 virus No date: Pulmonary embolism (HCC) Comment: after PICC line No date: V-tach (HCC) PAST SURGICAL HISTORY 2003: DELIVERY ONLY Comment: , low cervical 01/08/2008: CHOLECYSTECTOMY 04/2021: EGD 02/2021: EGD 04/11/2022: LAPAROSCOPIC GASTRECTOMY 2012: LAPAROSCOPIC UTERINE NERVE ABLATION 2008: LIVER BIOPSY 09/21/2018: MIDLINE CATHETER Comment: 2010: PAST SURGICAL HISTORY OF Comment: spring coils in fallopian tubes 2010: S BALLOON,UTERINE ABLATION 07961 2019: SHX CARDIAC RADIOFREQUENCY ABLATION Comment: ventricular [...] Unremarkable. IMPRESSION IMPRESSION: No acute radiographic abnormality. Track Oiler: YUVAL Transcribe Date/Time: Apr 24 2024 4:15P Dictated by : AMI DAVENPORT MD Patient was given Tessalon Perles for her cough. At this time it is believed to be viral. Patient can treat with wdui-ilt-acxroja medication for symptom management. Prescription instructions reviewed with patient as applicable. Potential red flag symptoms discussed with the patient. Reviewed appropriate action plan to take if red flag symptoms occur. Patient agreeable to treatment plan. Delfin Jain APRN.HIGH SCHOOL SPECIAL EDUCATION TEACHER documented in [facility]07[facility] History of Present illness Narrative* Vargas [...] referral to psych or eval with Dr dong Med check anxiety - ativan PRN - [...] floor instability. We discussed follow up with FOUNDER PRESIDENT AND CEO for eval but consider pelvic floor therapy [...] medication(s). Patient Active Problem List Diagnosis AAT (pdkcx-7-wpqmdlzpibb) deficiency (Multi) Abnormal EKG Bilateral hand numbness [...] LEUKOCYTES (10*3/UL) IN BLOOD BY AUTOMATED COUNT, LEBANESE 4.4 - 11.3 x10*3/uL 8.2 nRBC 0.0 - 0.0 /100 WBCs 0.0 ERYTHROCYTES (10*6/UL) IN BLOOD BY AUTOMATED COUNT, LEBANESE 4.00 - 5.20 x10*6/uL 5.34 (H) HEMOGLOBIN 12.0 - 16.0 g/dL 15.1 HEMATOCRIT 36.0 - 46.0 % 47.2 (H) MCV 80 - 100 fL 88 MCH 26.0 - 34.0 pg 28.3 MCHC 32.0 - 36.0 g/dL 32.0 RED CELL DISTRIBUTION WIDTH 11.5 - 14.5 % 13.4 PLATELETS (10*3/UL) IN BLOOD AUTOMATED COUNT, LEBANESE 150 - 450 x10*3/uL 208 NEUTROPHILS/100 LEUKOCYTES IN BLOOD BY AUTOMATED COUNT, [place]BANESE 40.0 - 80.0 % 63.4 Immature Granulocytes %, Automated 0.0 - 0.9 % 0.1 Lymphocytes % 13.0 - 44.0 % 28.2 Monocytes % 2.0 - 10.0 % 6.7 Eosinophils % 0.0 - 6.0 % 1.2 Basophils % 0.0 - 2.0 % 0.4 NEUTROPHILS (10*3/UL) IN BLOOD BY AUTOMATED COUNT, LEBANESE 1.20 - 7.70 x10*3/uL 5.22 Immature Granulocytes [...] with med check / [facility] Work Phone: 1(158) 686-688702-06-2024 Miscellaneous Notes* Telephone Encounter - Nikita Méndez LPN - 10/03/2023 8:28 AM EST Curly called with concerns of heart palpations, pain in neck and arm, and discomfort in chest. History of VT's and had an oblation in 2019. Last office visit 01/09/[address] Garay. Advised patient to go to ER to be assessed. Patient agreed, transferred patient to scheduling to make future appointment with Dr Garay. Curly# [phone] Nikita Méndez LPN October 03, 2023 8:39 AM documented in this [facility]29-[facility] History of Present illness Narrative* Vargas Mujica PA-C - 09/25/2023 8:20 AM EST Subjective Patient ID: Curly Cowart is a 38 y.o. female who presents for Follow-up (GENERAL CHECK UP + MEDREFILL ATIVAN. POSITIVE PHQ 2/9 - FATHER 08/23/23. ) HPI Labs - [...] floor instability. We discussed follow up with FOUNDER PRESIDENT [employer] CEO for eval but consider pelvic floor therapy [...] medication(s). Patient Active Problem List Diagnosis AAT (xhggz-1-thzneqonpih) deficiency (CMS/HCC) Abnormal EKG Bilateral hand numbness [...] List Items Addressed This Visit ICD-10-CM AAT (tsjse-6-tzclfiuppnz) deficiency ([facility]) E88.01 Vitamin D deficiency E55.9 Relevant Orders Vitamin D 25-Hydroxy,Total (for eval of Vitamin D levels) (Completed) Depression, major, single episode, moderate ([facility]) F32.1 Elevated ferritin level R79.89 Relevant Orders [...] index (BMI) of50.0 to 59.9 in adult ([facility]) E66.01, Z68.43 Generalized anxiety disorder F41.1 Other [...] check /mood check mammo [facility] Work Phone: 1(634) 459-326009-18-2023 Hospital Discharge instructions Patient Education 05/15/2023 18:40:46 [...] or water and you are getting dehydrated [id number] [employer]. [address] [place] [address], [place] [address]. All rights reserved. This information is not intended as a substitute for professional medical care. Always follow yourhealthcare professional's instructions. Follow Up Care 05/15/2023 16:27:17 With:CHANDA VASQUEZ Address: [address] [address] [phone] Business (1) When:2-4 days With:VARGAS MUJICA Address: [address] [place] [address]- [phone] Business (1) When:2-4 days [facility] Janellerna Srinivasan 09-18-2023 Note Discharge Instructions Thank you for allowing [facility] to assist you with your healthcare needs. The following is importantdischarge information regarding your hospital visit. Diagnosis from Today's Visit Abdominal pain What to Do Next Instructions from Your Care Team No qualifying data available. Post Acute Orders No qualifying data available. You Need to Schedule the Following Appointments Follow Up with CHANDA VAQSUEZ When Within 2-4 days Where: [address] [place] [address]- [phone] Business (1) Follow Up with VARGAS MUJICA When Within 2-4 days Where: [address] [place] [address]- [phone] Business (1) Allergies Wellbutrin morphine penicillin Medications [...] or water and you are getting dehydrated [phone] [employer]. [address] [place] [address]. All rights reserved. This information is not intended as a substitute for professional medical care. Always follow yourhealthcare professional's instructions. Additional Information VACCINATE! IT SAVES LIVES! Members of the community who have not yet received the COVID-19 vaccine and would like to receive it can visit one of [facility] vaccine clinics. There are many vaccine clinic locations within the [facility]. For locations and available times, please visit www.[email or web address] It is important to note that some COVID mobile vaccine clinics are held outdoors and may be canceled in rainy or stormy conditions. To learn more about pediatric vaccinations (ages 5-11), we invite you to visit the [facility] webpage. https://www.[facility].org/pages/0697-Ayrua-Puaqwehqyif-Yfdoehccau-Saijm-Dsv stions.htmlTo learn more about the COVID-19 vaccine, we invite you to visit the CDC website for a list of frequently asked questions. https://www.cdc.gov/coronavirus/2019-ncov/vaccines/faq.html [facility] Patient Portal Access Instructions: Stay connected with your healthcare team and access your personal medical information anytime with the [facility] Patient Portal. If you would like a full copy of your medical records please contact the [facility] Medical Records Department Monday through Monday between 8a.m. and 4:30p.m. Please follow the directions below to access the portal: 1.Access the email account you provided upon registration to the special care hospital.2.Look for an invitation email from [facility].3.Open the email and access the invitation link: Accept Invitation to [facility]4.Fill in the required palma to create your account. Sign into [email or web address] with your username and password that you [...] you will allow to register on the [employer] Patient Portal for access to your information. You can also access the [employer] Patient Portal on the [employer] joanna. Simply click on Health Records under [email or web address] and then click on the [employer] logo. HOW TO SAFELY DISPOSE OF PRESCRIPTION [...] Call your local pharmacy or go to http://[employer].IKOTECH/[email or web address] to find one close to you.3.Make use of household items: Use cat litter or old coffee grounds to dispose medications if other options arenot available. Mix your drugs with these household products, seal them in an airtight container andthrow it into the garbage. Call [facility]: [phone] to be sure your drugs can be [...] been reviewed and explained to me and I,CURLY COWART understand my current condition and have read and understand these discharge instructions. I have received a written copy of the plan/instructions. If I have questions, I am aware that I should contactmy doctor. Patient/Nutritionist Signature: Date/Time: Relationship to Patient: Witness Name/Signature: Date/Time: [facility]09-18-2023 Note ORIGINAL EXAMINATION: CT OF THE [...] Sign Date: 05/15/2023 6:26:14 PM Ordering Provider: [facility]09-18-2023 Note Sinus rhythm Left ventricular hypertrophy Electronic Signature: KVNG DOMINGUEZ MD 05/15/2023 17:04:40[facility] 07-03-2023 Miscellaneous Notes* Telephone Encounter - Marielos Mares RN - 02/27/2023 12:28 PM EDT Images from the original note were not included. [employer] message sent by Dr. Cheung to the patient. ANDRE Adan MD to Curly Cowart 1:35 PM [employer] Monitor shows 2 runs of SVT benign arrhythmia SHORT LIVED We could watch this for now . If bothersome we could use meds claudy Last read by Curly Cowart at 2:25 PM on 02/24/2023. * Telephone Encounter - Michaela Luevano - 02/24/2023 1:30 PM EDT Images from the original note were not included. Tomasz Garay MD 2 short episodes of SVT medical therapy slesophia * Telephone Encounter - Michaela Luevano - 02/21/2023 9:50 AM EDT I was talking to patient about scheduling and she notes that she has not heard back on her ZIO results. Ok to send [employer] message. Please review and advise. Michaela Luevano MA documented in this encounterNewark Hospital06-15-2023 History of Present illness Narrative* Vargas [...] floor instability. We discussed follow up with FOUNDER PRESIDENT AND CEO for eval but consider pelvic floor therapy [...] today: Yes Recent Results (from the past 84402 hour(s)) OPIATE/OPIOID/BENZO PRESCRIPTION COMPLIANCE Collection Time: 05/25/21 [...] Better Patient Active Problem List Diagnosis AAT (fhnox-3-dadpzmyrkqj) deficiency (CMS/HCC) Anxiety Abnormal EKG Bilateral hand [...] symptoms - plans to follow up with FOUNDER PRESIDENT AND CEO first - discussed pelvic floor thearpy In [...] index (BMI) of50.0 to 59.9 in adult (CMS/[facility]) Palpitations Generalized anxiety disorder - Primary Ankylosing [...] labs and med check documented in [facility] Work Phone: [phone]) 310-930005-15-2023 Miscellaneous Notes* Telephone Encounter - Michaela Luevano [...] Luevano MA * Telephone Encounter - Kayleigh Mane Pss - 01/02/2023 8:43 AM EDT Patient calling in stating she was seen in [facility] care for heart palpitations, and HR in 50's. Also having dizzy spells. EC thought she should get a holter monitor but wanted her to follow up with her risk analyst. First available isn't until July. Please advise. documented in this encounterNewark Hospital05-07-2023 History of Present illness Narrative* Shahid Gamble APRN.HIGH SCHOOL SPECIAL EDUCATION TEACHER - 01/01/2023 9:23 AM EDT Subjective HPI [...] 2 days PAST MEDICAL HISTORY Diagnosis Date Onjml-1-kkncskdvfqg deficiency (HCC) Cardiac dysrhythmia, unspecified 2007 Depressive [...] coils in fallopian tubes S BALLOON,UTERINE ABLATION 39503 2009 SHX CARDIAC RADIOFREQUENCY ABLATION 2018 ventricular [...] provider/curette Discussed proper ear hygiene. Shahid Gamble APRN.HIGH SCHOOL SPECIAL EDUCATION TEACHER documented in this encounterNewark Hospital03-14-2023 Instructions* Patient Instructions* JUNE Rodriguez - 11/08/2022 11:57 AM EDT Rest, ice, elevation. Return to ED with new/worsening symptoms. documented in this encounterNewark Hospital03-14-2023 History of Present illness Narrative* Leslie [...] 08, 2022 11:35 AM [place] [address]-14-2023 History of Present illness Narrative* JUNE Rodriguez [...] other complaints PAST MEDICAL HISTORY Diagnosis Date Qusfm-2-xyeoybvaoql deficiency (HCC) Cardiac dysrhythmia, unspecified 2007 Depressive [...] MIDLINE CATHETER 09/21/2018 PAST SURGICAL HISTORY OF 2010 spring coils in fallopian tubes S BALLOON,UTERINE ABLATION 99828 2009 SHX CARDIAC RADIOFREQUENCY ABLATION 2018 ventricular [...] ER evaluation. JUNE Rodriguez documented in this encounterNewark Hospital02-20-2023 Chief complaint Narrative - Reported* An [...] PALPITATIONS, SINUS CONGESTION, RUNNY NOSE, SORE THROAT. -[facility] Work Phone: 1(626) 544-490302-16-2023 History of Present illness Narrative* Patient presents [...] of the last Controlled Substance Agreement: 05/25/2021 -[facility] Work Phone: 1(281) 179-708102-13-2023 Miscellaneous Notes* Telephone Encounter - Saranya Breaux [...] does not have any deficiencies. Marjan Eddy APRN.CNP * Telephone Encounter - Saranya Breaux RN [...] 10, 2022 8:26 AM documented in this encounterNewark Hospital01-26-2023 History of Present illness Narrative* Delfin Jain, ALF.[facility] - 09/22/2022 1:38 PM EST CC: Patient [...] air exchange PAST MEDICAL HISTORY Diagnosis Date Goxgg-7-gontbcvnswv deficiency (HCC) Cardiac dysrhythmia, unspecified 2007 Depressive [...] coils in fallopian tubes S BALLOON,UTERINE ABLATION 00464 2009 SHX CARDIAC RADIOFREQUENCY ABLATION 2018 ventricular [...] plan. Delfin Jain APRN.SWATI documented in this encounterNewark Hospital01-22-2023 History of Present illness Narrative* VIRTUAL VISIT DUE TO COVID19 . * COUGH WITH CHEST CONGESTION AND SOB ON EXERTION X 4 DAYS . HAD NEGATIVE HOME COVID TEST 3 DAYS AGO.DIDN'T GET THE COVID VACCINES. [facility] Internal Medicine Work Phone: 1(324) 351-335701-04-2023 Chief complaint Narrative - Reported* An interactive [...] and chest pain. Serves no further complaints -[facility] Internal Medicine Work Phone: 1(672) 871-953812-21-2022 History of Present illness Narrative* Patient presents [...] of the last Controlled Substance Agreement: 05/25/2021 -[facility] Internal Medicine Work Phone: 1(362) 660-370712-19-2022 Miscellaneous Notes* Telephone Encounter - Miguel Salgado APRN.CNP - 08/15/2022 3:41 PM EST No other recommendations for patient from a bariatric standpoint. This is something that should continue to be managed by her PCP. Please have her continue to follow up with her PCP for this. Miguel Salgado APRN.CNP documented in this encounterNewark Hospital11-15-2022 Miscellaneous Notes* Telephone Encounter - Janett Harris-Nurse - 07/12/2022 9:10 AM EST Called to schedule for 6 mo p/o appt. No answer, LVM 6 Month P/O- -SLEEVE 04/11/2022 documented in this encounterNewark Hospital11-15-2022 History of Present illness Narrative* Marjan Eddy, ALF.HIGH SCHOOL SPECIAL EDUCATION TEACHER - 07/12/2022 8:32 AM EST BARIATRIC SURGERY [...] 52.94 kg/(m^2) Total weight loss: 78 lb [place] weight: 70.3 kg (154 lb 14.5 oz) [...] is improvement since weight loss. Marjan Eddy APRN.HIGH SCHOOL SPECIAL EDUCATION TEACHER Total time in direct patient contact = 20 min. Greater than 50% of the time was spent in counselingand/or coordination of care. Medical Decision Making: Problems: Moderate: 2+ stable chronic illnesses Data: Unique test result(s) reviewed: 1 Unique test(s) ordered: 1 Risk: Minimal: Minimal risk from testing/treatment Medical Decision Making Level: 3 - Low documented in this encounterNewark Hospital11-15-2022 History of Present illness Narrative* Audrey Spivey, NELLA - 07/12/2022 7:46 AM EST 3 Month Post-op--Visit conducted via [employer] Zoom (audio and visual) d/t COVID 19 [...] support group: encouraged attendance Vitamins--per manual: MVI: [employer] health bariatric with 18mg iron, morning B12: [...] Pt is maintaining a food journal daily, [employer] joanna. Pt presents 2 months post SG. [...] may contain grammatical errors. documented in this encounterNewark Hospital11-07-2022 Miscellaneous Notes* Addendum Note - Miguel Salgado APRN.CNP - 2022 10:52 AM ESTAddended by: MIGUEL SALGADO on: 2022 10:52 AM Modules accepted: Orders * Telephone Encounter - Johanny Wilkins MA - 2022 8:31 AM EST Please advise if you would be okay with adding this lab. Johanny Wilkins MA 2022 8:32 AM documented in this encounterNewark Hospital10-07-2022 History of Present illness Narrative* Amirah [...] intake: Yes 24 hr recall: 06/02 B: slovenian yogurt (20g) L: chicken salad - ~(21g) [...] her sister also had surgery Vitamins: MVI: Wyoos bariatric with 18mg iron capsule - did [...] OR 150 min/week (walking, chair exercises, HASFIT youtSagoon videos)--consider 10 minute intervals journal daily and bring to all appointments--maintain at least 5-7x/week meet 60-90g protein and 64oz of fluids per day Wyoos bariatric 18mg iron in the morning + 2.5-3, 500mg calcium citrate soft chews split between lunch and dinner Total time in direct patient contact = 20 min. Greater than 50% of the time was spent in counselingand/or coordination of care. Amirah Flores RD This note was generated using voice recognition technology and may contain grammatical errors. documented in this encounterNewark Hospital10-06-2022 Miscellaneous Notes* Telephone Encounter - Janett Harris-Nurse - 06/02/2022 10:01 AM EDT Called to schedule 3 Mo P/O , vm full unable to leave message documented in this encounterNewark Hospital10-06-2022 History of Present illness Narrative* Marjan Eddy APRN.SWATI - 06/02/2022 9:34 AM EDT BARIATRIC SURGERY [...] 62.62 kg/(m^2) Total weight loss: 54 lb Phoenix weight: 70.3 kg (154 lb 14.5 oz) [...] 1500mg) Multivitamin & Minerals: 1 per day- Wyoos 18 capsule Iron Supplement: 18mg in MVI [...] orders placed - continue Protonix Marjan Eddy APRN.HIGH SCHOOL SPECIAL EDUCATION TEACHER Total time in direct patient contact = 11 min. Greater than 50% of the time was spent in counselingand/or coordination of care. documented in this encounterNewark Hospital08-31-2022 Miscellaneous Notes* Telephone Encounter - Sarah Brown Ma - 04/27/2022 10:12 AM EDT Pharmacy sent a [employer] message requesting the following refill. Requested Prescriptions Pending Prescriptions Disp Refills pantoprazole DR (PROTONIX) 40 mg tablet [Pharmacy Med Name: PANTOPRAZOLE SOD DR 40 MG TAB] 90 tablet 1 Sig: TAKE 1 TABLET BY MOUTH EVERY DAY Next Appointment: 06/02/2022 Patient Phone numbers: [phone] (home) Request is for script(s) to be escript to pharmacy. Sarah Brown Ma documented in this encounterNewark Hospital08-25-2022 History of Present illness Narrative* Audrey Spivey RD - 04/21/2022 1:30 PM EDT 10 days Post-Op--Visit conducted via [employer] Zoom (audio and visual) d/t COVID 19 [...] fatigue Exercise: shopping, ADLs Vitamins--per manual: MVI: Wyoos bariatric with 18mg iron chewable (does ok [...] protein and 64oz of fluids per day Wyoos bariatric 18mg iron in the morning + [...] may contain grammatical errors. documented in this encounterNewark Hospital08-24-2022 Miscellaneous Notes* Telephone Encounter - Saranya Breaux RN - 04/20/2022 1:02 PM EDT Images from the original note were not included. MD Saranya Álvarez RN; Marjan Eddy APRN.HIGH SCHOOL SPECIAL EDUCATION TEACHER I attempted to call and discuss with [...] 20, 2022 1:04 PM documented in this encounterNewark Hospital08-23-2022 History of Present illness Narrative* RT [...] Abdomen/Pelvis SIGNATURE: RT Edison(Duncan) PATIENT NAME: Curly Cowart DATE: April 19, 2022 TIME: 4:04 PM documented in this encounterNewark Hospital08-23-2022 History of Present illness Narrative* Marjan Eddy APRN.HIGH SCHOOL SPECIAL EDUCATION TEACHER - 04/19/2022 10:24 AM EDT BARIATRIC SURGERY CLINIC FOLLOW UP NOTE Name: Curly Cowart Index Surgery Date of Surgery: 04/11/2022 Surgeon: Dr. Rosas Surgical Procedure: Sleeve gastrectomy Pre-surgical weight: 406 lb Other Bariatric Surgeries None Visit: 8 days Today's Visit: Wt 176.2 kg (388 lb 6.4 oz) BMI 62.69 kg/m2 BMI 62.69 kg/(m^2) Last Visit: Wt: 182.3 kg (402 lb) BMI: 64.88 kg/(m^2) Total weight loss: 18 lb [place] weight: 70.3 kg (154 lb 14.5 oz) [...] ICD10: Z86.718 - Continue Lovenox as prescribed Marjan Eddy APRN.CNP Total time in direct patient contact = 30 min. Greater than 50% of the time was spent in counselingand/or coordination of care. Chart sent to Dr. Davila, covering surgeon. documented in this encounterNewark Hospital08-22-2022 Miscellaneous Notes* Telephone Encounter - Jennifer Anthony - 04/18/2022 4:14 PM EDT Patient called pain in side seeing Marjan 04/19/2022 will see her tomorrow documented in this encounterNewark Hospital08-18-2022 Miscellaneous Notes* Telephone Encounter - Marjan [...] and protein(60-80 grams/day) as prescribed by the jacquard loom fixer or nutritional counselor? YES 4. Are you taking the vitamins and minerals as prescribed? YES 5. Do you have the convict guard number to contact your surgeon if you [...] you have an appointment to see a jacquard loom fixer or nutritional counselor in the next month?YES [...] with any questions or concerns Marjan Eddy APRN.SWATI documented in this encounterNewark Hospital08-16-2022 Miscellaneous Notes* Telephone Encounter - Saranya [...] to call into the bariatric office at [phone], hit option #2 for the post-op line [...] 12, 2022 1:10 PM documented in this encounterNewark Hospital08-10-2022 Miscellaneous Notes* Telephone Encounter - Jennifre Anthony - 04/06/2022 4:08 PM EDT Called patient to let them know about pre testing tomorrow LVM documented in this encounterNewark Hospital08-09-2022 Miscellaneous Notes* Telephone Encounter - Saranya [...] incidental. Marjan Eddy APRN.CNP documented in this encounterNewark Hospital08-08-2022 Miscellaneous Notes* Telephone Encounter - Sarah [...] it? Sarah Brown Ma documented in this encounterNewark Hospital08-04-2022 Instructions* Patient Instructions* Marjan Eddy APRN.CNP [...] tools put into small incisions (cuts) [facility] The laparoscope is a long metal tool [...] your medicine. Do not take any medicines, zkdq-bds-udlngpd drugs, vitamins, herbs or food supplements without [...] be off your narcotic pain medications. Sexual [place] (sex): You may have sex in approximately [...] weight loss surgery, contact the following: o [place] [employer] [address] [place] [address], [facility], [place] www.obesity.org o [place] [employer]ariat[employer] (ASMBS) [address] [id number] www.asmbs.org o See the attached support group meeting schedule SEEK CARE IMMEDIATELY IF: o You have sudden chest pain, trouble breathing, or are coughing up blood. Call 911 or 0 (Plant Maintenance Mechanic)to get to the nearest hospital or clinic. [...] gastrectomy or your care. documented in this encounterNewark Hospital08-04-2022 History of Present illness Narrative* Marjan Eddy APRN.CNP - 03/31/2022 12:53 PM EDT BARIATRIC SURGERY CLINIC FOLLOW UP NOTE DISTANCE HEALTH VISIT This Team Access Model visit is a virtual encounter. It required patient- provider interaction for the medical decision making as documented below. Consent was obtained to complete today's distance health visit. HPI: Curly Cowart a 36 year old female is scheduled for Lap Sleeve Gastrectomy with Dr. Rosas on 04/11/22. She denies recent illnesses, recent hospitalizations, recent ED visits. Denies symptoms of COVID-19. She is currently on day #4 of VLCD HISTORY REVIEWED (electronic chart updated): - medical history - medications - allergies PAST MEDICAL HISTORY Diagnosis Date Drnbc-3-gddmkytrgeg deficiency (HCC) Cardiac dysrhythmia, unspecified 2007 Depressive [...] Still need clearance from PCP Marjan Eddy, ALF.HIGH SCHOOL SPECIAL EDUCATION TEACHER Preoperative instructions discussed with the patient in [...] information was sent to the patient through [employer] message as well. I spent a total of 30 minutes on the date of the service which included preparing to see the patient, dlow-ad-zshc patient care, completing clinical documentation, obtaining and/or reviewing separately obtained history, counseling and educating the patient/family/caregiver, ordering medications, uri ts, or procedures and care coordination (not separately reported). Medical Decision Making: Problems: Moderate: 2+ stable chronic illnesses Data: Assessment requiring an independent historian(s) Risk: Moderate: Drug management Medical Decision Making Level: 4 - Moderate documented in this encounterNewark Hospital07-28-2022 History of Present illness Narrative* Marjan [...] On PPI Tylenol: will require Marjan Eddy APRN.HIGH SCHOOL SPECIAL EDUCATION TEACHER * Tata Rosas MD - 03/24/2022 11:16 AM EDT BARIATRIC SURGERY NEW PATIENT CONSULTATION HISTORY AND PHYSICAL Date: March 24, 2022 Time: 11:16 AM Curly Cowart is a 36 year old year old female with obesity (Body mass index is 65.37 kg/m .), anxiety/depression (effexor; PRN ativan), mpouc-5-jkmxokoycie carrier(sees hepatobiliary specialist at [facility]), DVT/PE (2019; tx'd w/ 6 months; 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 Her weight today is 405 pounds. Please see my previous clinic notes for her full history: While hospitalized for V-tach she had a PICC and developed an UE DVT. She reports having then developed a PE related to this DVT and was on Coumadin for 6 months. She takes no current anticoagulants. She remains on daily 81 mg ASA. Her father has nphrd-7-zgcchtvfonq deficiency and underwent a liver transplant. She [...] radiofrequency ablation PAST MEDICAL HISTORY Diagnosis Date Nuxlq-5-otwyvfpcpqc deficiency (HCC) Cardiac dysrhythmia, unspecified 2007 Depressive [...] coils in fallopian tubes S BALLOON,UTERINE ABLATION 89322 2009 SHX CARDIAC RADIOFREQUENCY ABLATION ventricular TONSILLECTOMY [...] index (BMI)of 60.0 to 69.9 in adult ([facility]) - ICD9: 278.01, V85.44, ICD10: E66.01, Z68.44 [...] on recommendations of the Governor of the [facility]. We have extensively discussed the nature of [...] has a history of DVT 3. AAT (jfrmc-0-remfijoiyom) deficiency (HCC) - ICD9: 273.4, ICD10: E88.01 [...] - Keep a food journal 5-7x/week (consider [employer] or [employer] joanna) and demonstrate meeting protein goal (60-90g protein for females, 70-105g protein for males)- Lean meats, fish, low fat dairy - cottage cheese, Arabic yogurt, light yogurt, cheese, ricotta cheese, nuts, [...] done virtually as approved currently by the [facility] Government which has transiently waved [facility] requirements. The patient agreed to this virtual visit documented in this encounterNewark Hospital07-20-2022 History of Present illness Narrative* Amirah Mark, RD - 03/16/2022 11:30 AM EDT Curly Cowart [...] prior to surgery. Behaviors Accomplished: Visit # 07/03 Date: 03/16/22 Weight: 405 lbs Weight goal [...] at least 5 days per week via [employer] joanna. Per 24 hr recall, meeting lower [...] with more than 50% of the total rxbx-jh-ztdv time of the visit in counseling / coordination of care. Amirah Flores RD This note was generated using voice recognition technology and may contain grammatical errors. documented in this encounterNewark Hospital07-19-2022 Miscellaneous Notes* Telephone Encounter - Katie Alvarez MA - 03/15/2022 8:34 AM EDT Called patient for pre-checkin. No answer, and no voicemail set up or it was full Katie Alvarez MA March 15, 2022 documented in this encounterNewark Hospital06-21-2022 History of Present illness Narrative* Marjan Eddy APRN.[facility] - 02/15/2022 9:33 AM EDT BARIATRIC [...] chart updated): PAST MEDICAL HISTORY Diagnosis Date Rszur-0-sgjxoibikgr deficiency (HCC) Cardiac dysrhythmia, unspecified 2007 Depressive [...] Types: Cigarettes Quit date: 2019 Years since quittin.4 Smokeless tobacco: Never Used [...] clearance from nutrition and pulmonology. Follow-up with COMPOSITION PROFESSOR next month to review clearance status. She is scheduled in March to re-consent with Dr. Rosas. Marjan Eddy APRN.SWATI Total time in direct patient contact = 13 min. Greater than 50% of the time was spent in counselingand/or coordination of care. This note was generated using voice recognition technology and may contain grammatical errors. documented in this encounterNewark Hospital06-21-2022 History of Present illness Narrative* Audrey Spivey RD - 02/15/2022 9:00 AM EDT Curly Cowart--Visit conducted via [employer] (audio and visual) d/t COVID 19 Month 07/03--month 3 of updated clearance Pre-Op weight goal:355# [...] meals, <1x/week (jimbo) 24 hr recall: B: [employer] protein shake--42g protein L: toast w/ kerrygold [...] scheduled for re-consent appt in March per COMPOSITION PROFESSOR note 02/15/22. Total time in direct patient contact = 29 minutes. Greater than 50% of the time was spent in counseling and/or coordination of care. Audrey Spivey RD This note was generated using voice recognition technology and may contain grammatical errors. documented in this encounterNewark Hospital06-20-2022 Miscellaneous Notes* Telephone Encounter - Laly Nguyen RN - 02/14/2022 4:00 PM EDT I did one and sent it to their office. Thanks, Hung Emerson MD Message text * Telephone Encounter - Laly Nguyen RN - 02/09/2022 1:52 PM EDT Patient is requesting a clearance letter for bariatric surgery sent to Dr Rosas . Laly Nguyen RN documented in this encounterNewark Hospital06-16-2022 Miscellaneous Notes* Telephone Encounter - Deanna Timmons Adm Asst - 02/10/2022 3:37 PM EDT Order for pulmonary clearance [facility]. Deanna Timmons Adm Asst documented in this encounterNewark Hospital06-15-2022 Miscellaneous Notes* Telephone Encounter - Laly [...] Thanks, Hung Emerson MD documented in this encounterNewark Hospital06-14-2022 Miscellaneous Notes* Telephone Encounter - Marjan Eddy APRN.CNP - 02/08/2022 1:58 PM EDT Noted. Will communicate this to Dr. Rosas for surgical planning. Thank you! Marjan Eddy APRN.SWATI * Telephone Encounter - Brooks Soto MD - 02/08/2022 12:01 PM EDT I signed her GI risk stratification for bariatric surgery. I suggest she get another set of LFT's before and likely needs iver biopsy if possible during the surgery. It would be beneficial. documented in this encounterNewark Hospital06-08-2022 Miscellaneous Notes* Telephone Encounter - Lisa Storey - 02/02/2022 8:49 AM EDT Images from the original note were not included. Marjan Eddy, 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 P [facility] Bariatric Surgery Pool Please request pulmonary/sleep clearance with OK to not use CPAP for mild BRISEYDA before surgery. We did have the OK from sleep med in from 2019. Please request clearance from gastroenterology FAXED. Brooks Soto MD Gastroenterology 02/02/2022 End 02/02/22 ; Hung Emerson MD Pulmonary and Critical Care Medicine 02/02/2022 End 02/02/22 ; Lisa Storey Gas Engine Performance Engineer Bariatric Dept. P: [phone] Ext [id number] documented in this encounterNewark Hospital06-08-2022 History of Present illness Narrative* RT Kay(R) - 02/02/2022 8:45 AM EDT Radiology Service [...] 02, 2022 7:23 AM documented in this encounterNewark Hospital06-08-2022 History of Present illness Narrative* Mary Laguerre - 02/02/2022 6:54 AM EDT PULM FUNCTION SMARTBLOCK: Provider: Hung Emerson MD Assisting Tech: Mary Laguerre Spirometry w/BD: 1 DLCO: 1 LV - Box: 1 System: [id number] documented in this encounterNewark Hospital05-24-2022 History of Present illness Narrative* Marjan Eddy APRN.[facility] - 01/18/2022 9:25 AM EDT BARIATRIC [...] - allergies PAST MEDICAL HISTORY Diagnosis Date Kdazb-2-bozrushlyxj deficiency (HCC) Cardiac dysrhythmia, unspecified 2007 Depressive [...] changes to medical history. Follow up with COMPOSITION PROFESSOR 4 weeks to review clearance status. Marjan Eddy APRN.SWATI Total time in direct patient contact = 14 min. Greater than 50% of the time was spent in counselingand/or coordination of care. This note was generated using voice recognition technology and may contain grammatical errors. documented in this encounterNewark Hospital05-20-2022 Miscellaneous Notes* Telephone Encounter - Laly [...] of the gene however. documented in this encounterNewark Hospital05-19-2022 History of Present illness Narrative* Brooks [...] Pt's F had OLT for TORRES vs S-0-lqnnyxmhpqm def. Has had hep A and B [...] DIRECTED PRN PAST MEDICAL HISTORY Diagnosis Date Etwdi-4-qqmphpiqesk deficiency (HCC) Cardiac dysrhythmia, unspecified 2007 Depressive [...] METHOD SPX 2003 LAPAROSCOPIC UTERINE NERVE ABLATION 2012 LIVER BIOPSY 2008 MIDLINE CATHETER 09/21/2018 PAST SURGICAL HISTORY OF 2009 spring coils in fallopian tubes S BALLOON,UTERINE ABLATION [id number] 2009 SHX CARDIAC RADIOFREQUENCY ABLATION ventricular TONSILLECTOMY [...] surgery. Brooks Soto MD documented in this encounterNewark Hospital05-09-2022 History of Present illness Narrative* Hung Emerson MD - 01/03/2022 4:02 PM EDT PATIENT NAME: Curly Cowart DATE OF SERVICE: January 03, 2022 PRIMARY CARE PHYSICIAN: JUNE Deshpande, PA CARE TEAM: Patient Care Team: JUNE Deshpande as PCP - General (Internal Medicine) Joshua Wall (Hist) Neel as Specialty Doormaker (Cardiology) Edith Taylor MD as Specialty Doormaker (Gastroenterology) Bonita Naqvi as Specialty Doormaker (Rheumatology) Referral No as Referring (Cardiology) Eric [...] however, her father underwent liver transplantation at [facility] for what was thought to be TORRES initially, but is now thought to be due to alpha 1-antitrypsin deficiency. She denies frequent or recurrent respiratory tract infections including pneumonias, sinus infections, and other upper respiratory infections. Patient is barely able to do all her daily activities (eg, director diversity, shopping, meal preparation, work, etc.) at a [...] MEDICAL HISTORY: PAST MEDICAL HISTORY Diagnosis Date Tjzdn-5-xmcxdqfccak deficiency (HCC) Cardiac dysrhythmia, unspecified 2007 Depressive [...] coils in fallopian tubes S BALLOON,UTERINE ABLATION [id number] 2009 SHX CARDIAC RADIOFREQUENCY ABLATION ventricular TONSILLECTOMY [...] 10 mL INTRAVENOUS DIRECTED PRN Johanny Marmolejo APRN.HIGH SCHOOL SPECIAL EDUCATION TEACHER LABS/IMAGING/DIAGNOSTIC STUDIES: CXR/CT: 12/19/20 CHEST X-RAY IMPRESSION: [...] addressed. Hung Emerson MD documented in this encounterNewark Hospital05-02-2022 Miscellaneous Notes* Telephone Encounter - Tiffanie [...] elevated liver enzymes Was Patient Referred to [facility]/Seek Emergency Treatment (Y/N): N Did Patient Agree (Y/N): N/A Was An Attempt Made To Transfer The Patient To The Office (Y/N): N Were You Able To Reach Someone At The Office (Y/N): N/A If Yes - Patient Was Transferred To (Caregivers Name): N If No - Which [facility] Leadership Cloth Bleaching Range Tender Did You Speak With Regarding This Patient: [...] other than patient: N/A Best contact number: [phone] Thank you, Reynaldo Jasso December 27, 2021 11:51 AM documented in this encounterNewark Hospital05-02-2022 History of Present illness Narrative* Amirah [...] exercise 24 hr recall: B: skipped L: frisian fries D: none S: none F: 64 [...] presents for a nutrition follow up per COMPOSITION PROFESSOR request due to weight regain (29# from 05/26/21). Previously cleared from nutrition on 05/26 (also last time patient met with RD). Will update clearance status today. Patient is tracking 3 days/week via physical food journal, was previously using [employer] joanna. She is able to calculate her [...] taking flintstones complete MVand has already purchased [employer] 18 for after surgery. Plan: follow up [...] with more than 50% of the total dsqx-sj-xfdj time of the visit in counseling / coordination of care. Amirah Flores RD documented in this encounterNewark Hospital04-29-2022 Miscellaneous Notes* Telephone Encounter - Talya Jackson RN - 12/24/2021 1:38 PM EDT Called patient and advised that she needs a follow-up appointment with Dr. Taylor. Message has beensent to Scarlett Amador outside plant supervisor to try to find patient a sooner [...] in Thanks * Telephone Encounter - Analilia oH - 12/24/2021 10:59 AM EDT Curly Cowart (Self) [phone] (H) Remove By Analilia Ho Patient called to discuss possible having a diagnosis of Hepatitis. She most recently had a ultrasound with enlarged liver, she would like new lab orders to be placed in [facility]. She would like a rt call to discuss She is aware she has not been seen since 2018 documented in this encounterNewark Hospital04-29-2022 History of Present illness Narrative* Marjan Eddy, 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 - 12/24/2021 8:53 AM EDT BARIATRIC SURGERY [...] remain elevated. She has not seen her production assembly supervisor in many years. Continues to have mild RYAN which is lingering from COVID 19 diagnosis. She completed 30 days holtermonitor and results were unremarkable- she has been cleared by cardiology. HISTORY REVIEWED (electronic chart updated): - medical history - medications - allergies PAST MEDICAL HISTORY Diagnosis Date Kddxv-4-nuclemzbziw deficiency (HCC) Cardiac dysrhythmia, unspecified 2007 Depressive [...] antitrypsin trait. She has a GI at [facility] and plans to reach out to him [...] since she has consented. Follow up with COMPOSITION PROFESSOR next month to review these clearances. Marjan Eddy, 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 Total time in direct patient contact = 20 min. Greater than 50% of the time was spent in counselingand/or coordination of care. This note was generated using voice recognition technology and may contain grammatical errors. documented [facility]22 Miscellaneous Notes* Telephone Encounter - Lisa Storey - 12/10/2021 2:00 PM EDT Please review [facility] internal medicine records in scanned documents received today. Lisa Storey Gas Engine Performance Engineer Bariatric Dept. P: [phone] Ext [phone] documented in this encounterNewark [facility]04-15-2022 Miscellaneous Notes* Telephone Encounter - Meagan [...] Visit date not found Patient Phone numbers: [phone] (home) Request is for script(s) to be escript to pharmacy. Meagan Fitzgerald MA documented in this encounterNewark [facility]04-07-2022 Miscellaneous Notes* Telephone Encounter - Art Caputo APRN.CNP - 12/02/2021 2:23 PM EDT Reviewed; US showed hepatomegaly (23.2cm) and fatty liver. Will route to surgeon. Art Caputo APRN.CNP * Telephone Encounter - Lisa Storey - 12/02/2021 1:27 PM EDT results received and scanned into chart for review. Lisa Storey Gas Engine Performance Engineer Bariatric Dept. P: [phone] Ext [phone] documented in this encounterNewark Hospital04-06-2022 Miscellaneous Notes* Telephone Encounter - Leanne [...] 01, 2021 8:00 AM documented in this encounterNewark Hospital04-04-2022 Miscellaneous Notes* Telephone Encounter - Johanny Wilkins MA - 11/29/2021 11:09 AM EDT Contacted the patients PCP to obtain most recent labwork. I left a message in the clinical question mailbox to fax results over or call back with any questions. Johanny Wilkins MA November 29, 2021 11:10 AM documented in this encounterNewark Hospital03-25-2022 Miscellaneous Notes* Telephone Encounter - Lisa Esparzauber - 11/19/2021 11:20 AM EDT Updated cardiac clearance sent to Dr. Garay via [email or web address] and fax. Lisa Esparzauber Gas Engine Performance Engineer Bariatric Dept. P: [phone] Ext [phone] documented in this encounterNewark Hospital03-25-2022 History of Present illness Narrative* Marjan Eddy, ALF.HIGH SCHOOL SPECIAL EDUCATION TEACHER - 11/19/2021 8:41 AM EDT BARIATRIC SURGERY [...] - allergies PAST MEDICAL HISTORY Diagnosis Date Dhrvd-7-whbnlndmbgi deficiency (HCC) Cardiac dysrhythmia, unspecified 2007 Depressive [...] index (BMI)of 60.0 to 69.9 in adult ([facility]) - ICD9: 278.01, V85.44, ICD10: E66.01, Z68.44 [...] VITAMIN B1 (THIAMINE), WHOLE BLOOD 2. V-tach ([facility]) - ICD9: 427.1, ICD10: I47.2 - Holter [...] rescheduling surgery - May consider MRCP 5. 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 Gastroesophageal [...] gain will add to MDT. Marjan Eddy APRN.SWATI Total time in direct patient contact = 30 min. Greater than 50% of the time was spent in counselingand/or coordination of care. This note was generated using voice recognition technology and may contain grammatical errors. documented in this encounterNewark Hospital03-25-2022 Miscellaneous Notes* Telephone Encounter - Katie [...] Visit date not found Patient Phone numbers: [phone] (home) Request is for script(s) to be escript to pharmacy. Katie Alvarez MA documented in this encounterNewark Hospital12-23-2021 Chief complaint Narrative - Reported* An [...] SHE DIDN'T FINISH THEM STILL VERY FATIGUE [facility] Internal Medicine Work Phone: 1(996) 641-360812-11-2021 History of Present illness Narrative* VARGAS MUJICA, [facility] PATIENT THAT * VIRTUAL APPOINTMENT BEING PERFORMED DUE TO COVID-19 (CORONAVIRUS) * Presents today for 1 WEEK F/U COVID. C/O SLIGHT NASAL CONGESTION AND FATIGUE REMAINS modifying factors consists of POSITIVE COVID ON 08/07/21 associated symptoms consist of SMELL AND TASTE IS OFF. NOSOB OR CP prior treatment consists of medication STOPPED MEDS [facility] Internal Medicine Work Phone: 1(726) 221-714812-01-2021 History of Present illness [id number] YOF presents with concerns of pain above right breast since having COVID-19 in July 2021. She is concerned about increased generalized edema since COVID-19 infection. Also reports increased SOB since COVID-19. Reports having a moderately severe COVID-19 infection.[facility] Internal Medicine Work Phone: 1(458) 905-356604-24-2021 History of Present illness Narrative* Alondra Lu (Rt), [facility] - 12/19/2020 10:30 AM EDT Radiology Service [...] 19, 2020 10:41 AM documented in this encounterNewark Hospital07-07-2008 History of Past illness Narrative* Problem Noted Date Resolved Date Nonspecific abnormal results of liver function s dy 03/03/2008 04/09/2015 documented as of this encounter (statuses as of 11/19/2021) [address]07-[address] History of Past illness Narrative* Problem Noted Date Resolved Date Nonspecific abnormal results of liver function s dy 03/03/2008 04/09/2015 documented as of this encounter (statuses as of 11/19/2021) [facility] Narrative* Problem Noted Date Resolved Date Nonspecific abnormal results of liver function s dy 03/03/2008 04/09/2015 documented as of this encounter (statuses as of 11/19/2021) [facility] Narrative* Problem Noted Date Resolved Date Nonspecific abnormal results of liver function s dy 03/03/2008 04/09/2015 documented as of this encounter (statuses as of 11/29/2021) [facility] Narrative* Problem Noted Date Resolved Date Nonspecific abnormal results of liver function s dy 03/03/2008 04/09/2015 documented as of this encounter (statuses as of 11/30/2021) [facility] Narrative* Problem Noted Date Resolved Date Nonspecific abnormal results of liver function s dy 03/03/2008 04/09/2015 documented as of this encounter (statuses as of 12/01/2021) [facility] Narrative* Problem Noted Date Resolved Date Nonspecific abnormal results of liver function s dy 03/03/2008 04/09/2015 documented as of this encounter (statuses as of 12/02/2021) [facility] Narrative* Problem Noted Date Resolved Date Nonspecific abnormal results of liver function s dy 03/03/2008 04/09/2015 documented as of this encounter (statuses as of 12/02/2021) [facility] Narrative* Problem Noted Date Resolved Date Nonspecific abnormal results of liver function s dy 03/03/2008 04/09/2015 documented as of this encounter (statuses as of 12/10/2021) [facility] Narrative* Problem Noted Date Resolved Date Nonspecific abnormal results of liver function s dy 03/03/2008 04/09/2015 documented as of this encounter (statuses as of 12/10/2021) [facility] Narrative* Problem Noted Date Resolved Date Nonspecific abnormal results of liver function s dy 03/03/2008 04/09/2015 documented as of this encounter (statuses as of 12/24/2021) [facility] Narrative* Problem Noted Date Resolved Date Nonspecific abnormal results of liver function s dy 03/03/2008 04/09/2015 documented as of this encounter (statuses as of 12/24/2021) [facility] Narrative* Problem Noted Date Resolved Date Nonspecific abnormal results of liver function s dy 03/03/2008 04/09/2015 documented as of this encounter (statuses as of 12/27/2021) [facility] Narrative* Problem Noted Date Resolved Date Nonspecific abnormal results of liver function s dy 03/03/2008 04/09/2015 documented as of this encounter (statuses as of 12/27/2021) [facility] Narrative* Problem Noted Date Resolved Date Nonspecific abnormal results of liver function s dy 03/03/2008 04/09/2015 documented as of this encounter (statuses as of 01/03/2022) [facility] Narrative* Problem Noted Date Resolved Date Nonspecific abnormal results of liver function s dy 03/03/2008 04/09/2015 documented as of this encounter (statuses as of 01/13/2022) [facility] Narrative* Problem Noted Date Resolved Date Nonspecific abnormal results of liver function s dy 03/03/2008 04/09/2015 documented as of this encounter (statuses as of 01/14/2022) [facility] Narrative* Problem Noted Date Resolved Date Nonspecific abnormal results of liver function s dy 03/03/2008 04/09/2015 documented as of this encounter (statuses as of 01/18/2022) [address] History of Past illness Narrative* Problem Noted Date Resolved Date Nonspecific abnormal results of liver function s dy 03/03/2008 04/09/2015 documented as of this encounter (statuses as of 02/02/2022) [facility] N[facility]* Problem Noted Date Resolved Date Nonspecific abnormal results of liver function s dy 03/03/2008 04/09/2015 documented as of this encounter (statuses as of 02/02/2022) [facility] Narrative* Problem Noted Date Resolved Date Nonspecific abnormal results of liver function s dy 03/03/2008 04/09/2015 documented as of this encounter (statuses as of 02/03/2022) [facility] Narrative* Problem Noted Date Resolved Date Nonspecific abnormal results of liver function s dy 03/03/2008 04/09/2015 documented as of this encounter (statuses as of 02/08/2022) [facility] Narrative* Problem Noted Date Resolved Date Nonspecific abnormal results of liver function s dy 03/03/2008 04/09/2015 documented as of this encounter (statuses as of 02/09/2022) [facility] Narrative* Problem Noted Date Resolved Date Nonspecific abnormal results of liver function s dy 03/03/2008 04/09/2015 documented as of this encounter (statuses as of 02/10/2022) [facility] Narrative* Problem Noted Date Resolved Date Nonspecific abnormal results of liver function s dy 03/03/2008 04/09/2015 documented as of this encounter (statuses as of 02/14/2022) [facility] Narrative* Problem Noted Date Resolved Date Nonspecific abnormal results of liver function s dy 03/03/2008 04/09/2015 documented as of this encounter (statuses as of 02/15/2022) [facility] Narrative* Problem Noted Date Resolved Date Nonspecific abnormal results of liver function s dy 03/03/2008 04/09/2015 documented as of this encounter (statuses as of 02/15/2022) [address] History of Past illness Narrative* Problem Noted Date Resolved Date Nonspecific abnormal results of liver function s dy 03/03/2008 04/09/2015 documented as of this encounter (statuses as of 03/01/2022) [facility] N[facility]* Problem Noted Date Resolved Date Nonspecific abnormal results of liver function s dy 03/03/2008 04/09/2015 documented as of this encounter (statuses as of 03/02/2022) [facility] Narrative* Problem Noted Date Resolved Date Nonspecific abnormal results of liver function s dy 03/03/2008 04/09/2015 documented as of this encounter (statuses as of 03/15/2022) [facility] Narrative* Problem Noted Date Resolved Date Nonspecific abnormal results of liver function s dy 03/03/2008 04/09/2015 documented as of this encounter (statuses as of 03/16/2022) [facility] Narrative* Problem Noted Date Resolved Date Nonspecific abnormal results of liver function s dy 03/03/2008 04/09/2015 documented as of this encounter (statuses as of 03/24/2022) [facility] Narrative* Problem Noted Date Resolved Date Nonspecific abnormal results of liver function s dy 03/03/2008 04/09/2015 documented as of this encounter (statuses as of 03/31/2022) [facility] Narrative* Problem Noted Date Resolved Date Nonspecific abnormal results of liver function s dy 03/03/2008 04/09/2015 documented as of this encounter (statuses as of 03/31/2022) [facility] Narrative* Problem Noted Date Resolved Date Nonspecific abnormal results of liver function s dy 03/03/2008 04/09/2015 documented as of this encounter (statuses as of 03/31/2022) [facility] Narrative* Problem Noted Date Resolved Date Nonspecific abnormal results of liver function s dy 03/03/2008 04/09/2015 documented as of this encounter (statuses as of 04/04/2022) [facility] Narrative* Problem Noted Date Resolved Date Nonspecific abnormal results of liver function s dy 03/03/2008 04/09/2015 documented as of this encounter (statuses as of 04/05/2022) [facility] Narrative* Problem Noted Date Resolved Date Nonspecific abnormal results of liver function s dy 03/03/2008 04/09/2015 documented as of this encounter (statuses as of 04/12/2022) [facility] Narrative* Problem Noted Date Resolved Date Nonspecific abnormal results of liver function s dy 03/03/2008 04/09/2015 documented as of this encounter (statuses as of 04/14/2022) [facility] Narrative* Problem Noted Date Resolved Date Nonspecific abnormal results of liver function s dy 03/03/2008 04/09/2015 documented as of this encounter (statuses as of 04/18/2022) [facility] Narrative* Problem Noted Date Resolved Date Nonspecific abnormal results of liver function s dy 03/03/2008 04/09/2015 documented as of this encounter (statuses as of 04/19/2022) [facility] Narrative* Problem Noted Date Resolved Date Nonspecific abnormal results of liver function s dy 03/03/2008 04/09/2015 documented as of this encounter (statuses as of 04/20/2022) [facility] Narrative* Problem Noted Date Resolved Date Nonspecific abnormal results of liver function s dy 03/03/2008 04/09/2015 documented as of this encounter (statuses as of 04/20/2022) [facility] Narrative* Problem Noted Date Resolved Date Nonspecific abnormal results of liver function s dy 03/03/2008 04/09/2015 documented as of this encounter (statuses as of 04/20/2022) [facility] Narrative* Problem Noted Date Resolved Date Nonspecific abnormal results of liver function s dy 03/03/2008 04/09/2015 documented as of this encounter (statuses as of 04/21/2022) [address]07-[address] History of Past illness Narrative* Problem Noted Date Resolved Date Nonspecific abnormal results of liver function s tudy 03/03/2008 04/09/2015 documented as of this encounter (statuses as of 04/27/2022) [address]07-[address] History of Past illness Narrative* Problem Noted Date Resolved Date Nonspecific abnormal results of liver function s dy 03/03/2008 04/09/2015 documented as of this encounter (statuses as of 06/02/2022) [address]07-2008 History of Past illness Narrative* Problem Noted Date Resolved Date Nonspecific abnormal results of liver function s dy 03/03/2008 04/09/2015 documented as of this encounter (statuses as of 06/02/2022) [address]07-2008 History of Past illness Narrative* Problem Noted Date Resolved Date Nonspecific abnormal results of liver function s dy 03/03/2008 04/09/2015 documented as of this encounter (statuses as of 06/03/2022) [address]07-2008 History of Past illness Narrative* Problem Noted Date Resolved Date Nonspecific abnormal results of liver function s dy 03/03/2008 04/09/2015 documented as of this encounter (statuses as of 2022) [facility] N[facility]* Problem Noted Date Resolved Date Nonspecific abnormal results of liver function s dy 03/03/2008 04/09/2015 documented as of this encounter (statuses as of 07/12/2022) [facility] Narrative* Problem Noted Date Resolved Date Nonspecific abnormal results of liver function s dy 03/03/2008 04/09/2015 documented as of this encounter (statuses as of 07/12/2022) [facility] Narrative* Problem Noted Date Resolved Date Nonspecific abnormal results of liver function s dy 03/03/2008 04/09/2015 documented as of this encounter (statuses as of 07/12/2022) [facility] Narrative* Problem Noted Date Resolved Date Nonspecific abnormal results of liver function s dy 03/03/2008 04/09/2015 documented as of this encounter (statuses as of 08/15/2022) [place] [address]-07-2008 History of Past illness Narrative* Problem Noted Date Resolved Date Nonspecific abnormal results of liver function s tudy 03/03/2008 04/09/2015 documented as of this encounter (statuses as of 09/22/2022) [facility] Narrative* Problem Noted Date Resolved Date Nonspecific abnormal results of liver function s dy 03/03/2008 04/09/2015 documented as of this encounter (statuses as of 10/10/2022) [facility] Narrative* Problem Noted Date Resolved Date Nonspecific abnormal results of liver function s tudy 03/03/2008 04/09/2015 documented as of this encounter (statuses as of 10/11/2022) [facility] Narrative* Problem Noted Date Resolved Date Nonspecific abnormal results of liver function s dy 03/03/2008 04/09/2015 documented as of this encounter (statuses as of 11/08/2022) [facility] Narrative* Problem Noted Date Resolved Date Nonspecific abnormal results of liver function s dy 03/03/2008 04/09/2015 documented as of this encounter (statuses as of 01/01/2023) [facility] Narrative* Problem Noted Date Resolved Date Nonspecific abnormal results of liver function s dy 03/03/2008 04/09/2015 documented as of this encounter (statuses as of 01/09/2023) [facility] Narrative* Problem Noted Date Resolved Date Nonspecific abnormal results of liver function s dy 03/03/2008 04/09/2015 documented as of this encounter (statuses as of 01/09/2023) [facility] Narrative* Problem Noted Date Resolved Date Nonspecific abnormal results of liver function s dy 03/03/2008 04/09/2015 documented as of this encounter (statuses as of 02/27/2023) [facility] Narrative* Problem Noted Date Diagnosed Date Resolved Date Nonspecific abnormal results of liver function study 03/03/2008 04/09/2015 documented as of this encounter (statuses as of 10/27/2023) [facility] complaint Narrative - Reported* An interactive audio [...] and not being allowed to take NSAIDS. [facility] Internal Medicine Work Phone: discharge summary Author Dr. Sutton [facility] November 15, 2022 1:42pm Note Date/Time November 15, 2022 12: 03pm [facility] Medical Records Department [address] [place] [address] Emergency Department Summary 11/15/22 MR#: [id number] Acct: [id number] Name: CURLY COWART Rep #:[id number] : 1985 37 From: Aftab Sutton MD [...] been moving recently unpacking and lifting. [facility] Medical History Rwapf-2-gwwxtxbdlhd deficiency Ankylosing spondylitis Anxiety Arthritis Back problem [...] % (Auto) 66.2 Lymph % (Auto) 24.8 [place] % (Auto) 7.0 Eos % (Auto) 1.7 [...] your Primary Care Provider. Call [facility] ([phone]) or report to the closest Emergency Room. Call 911 if necessary. 11/15/22 1342 <Electronically signed by Aftab Sutton MD> Cosigner Signature (if applicable): CC: JUNE Mujica ~ Signed [facility] Work Phone: Evaluation + Plan note No data available for this section [facility] Evaluation note* Diagnosis Class 3 severe obesity due to excess calories with serious comorbidity and body mass index (BMI) of 60.0 to 69.9 in adult ([facility]) [facility] Diagnosis Class 3 severe obesity due to excess calories with serious comorbidity and body mass index (BMI) of 60.0 to 69.9 in adult ([facility])- Primary V-tach (HCC) Paroxysmal ventricular tachycardia COVID-19 long hauler Elevated liver enzymes Other nonspecific abnormal serum enzyme levels Hcbnm-2-audqnwvcplx deficiency (HCC) Jrtnu-3-cpbzejnwpch deficiency Gastroesophageal reflux disease without esophagitis Esophageal reflux [facility]* Diagnosis Thiamine deficiency Other and unspecified manifestations of thiamine deficiency [facility] Diagnosis Thiamine deficiency Other and unspecified manifestations of thiamine deficiency [facility]* Diagnosis Class 3 severe obesity due to excess calories with serious comorbidity and body mass index (BMI) of 60.0 to 69.9 in adult (HCC)- Primary Elevated liver enzymes Other nonspecific abnormal serum enzyme levels Hepatomegaly V-tach (HCC) Paroxysmal ventricular tachycardia COVID-19 [facility] Gastroesophageal reflux disease without esophagitis Esophageal reflux [facility] Class 3 severe obesity [...] [facility] Diagnosis TORRES (nonalcoholic steatohepatitis)- Primary [...] abnormal serum enzyme levels COVID-19 [facility] BRISEYDA (obstructive sleep apnea) Obstructive sleep apnea (adult) (pediatric) [facility] Diagnosis Dietary counseling and surveillance Dietary surveillance and counseling [facility] Diagnosis Morbid obesity (HCC)- Primary Morbid obesity [facility] Diagnosis Class 3 severe obesity due to excess calories with serious comorbidity and body mass index (BMI) of 60.0 to 69.9 in adult (HCC)- Primary Morbid obesity (HCC) Morbid obesity [facility]* Diagnosis Class 3 severe obesity due to excess calories with serious comorbidity and body mass index (BMI) of 60.0 to 69.9 in adult (HCC)- Primary History of DVT (deep vein thrombosis) Personal history of venous thrombosis and embolism AAT (honex-0-pkrzxtqkvdk) deficiency (HCC) Nodtn-8-cafwqdlbasf deficiency BRISEYDA (obstructive sleep apnea) Obstructive sleep apnea (adult) (pediatric) NAFLD (nonalcoholic fatty liver disease) Other chronic nonalcoholic liver disease Heartburn Morbid obesity (HCC) Morbid obesity [facility]* Diagnosis Class 3 severe obesity due to excess calories with serious comorbidity and body mass index (BMI) of 60.0 to 69.9 in adult (HCC)- Primary History of DVT (deep vein thrombosis) Personal history of venous thrombosis and embolism Elevated liver enzymes Other nonspecific abnormal serum enzyme levels Morbid obesity (HCC) Morbid obesity [facility] Diagnosis Thrombocytopenia (HCC)- Primary Thrombocytopenia, unspecified Morbid obesity (HCC) Morbid obesity [facility]* Diagnosis S/P laparoscopic sleeve gastrectomy- Primary Bariatric surgery status Right sided abdominal pain Abdominal pain, unspecified site Hepatic fibrosis Cirrhosis 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 mention of alcohol History of DVT (deep vein thrombosis) Personal history of venous thrombosis and embolism S/P laparoscopic sleeve gastrectomy Bariatric surgery status Right sided abdominal pain Abdominal pain, unspecified site [facility] Diagnosis S/P laparoscopic sleeve gastrectomy Bariatric surgery status Right sided abdominal pain Abdominal pain, unspecified site [facility]* Diagnosis Dietary counseling and surveillance [Z71.3 (ICD-10-CM)]- Primary Dietary surveillance and counseling [facility]* Diagnosis Class 3 severe obesity due to excess calories with serious comorbidity and body mass index (BMI) of 60.0 to 69.9 in adult (HCC) [facility]* Diagnosis S/P laparoscopic sleeve gastrectomy- Primary Bariatric surgery status [facility]* Diagnosis Dietary counseling and surveillance [Z71.3 (ICD-10-CM)]- Primary Dietary surveillance and counseling [facility] Diagnosis Hepatic fibrosis- Primary Cirrhosis 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 mention of alcohol [facility]* Diagnosis S/P laparoscopic sleeve gastrectomy- Primary Bariatric surgery status Elevated liver enzymes Other nonspecific abnormal serum enzyme levels documented in this encounter [facility] [place] note* Diagnosis Dietary counseling and surveillance [Z71.3 (ICD-10-CM)]- Primary Dietary surveillance and counseling documented in this encounter [facility] [place] noteNo assessment information availableWPomerene [facility] Work Phone: Evaluation note* Diagnosis Acute cough- Primary URI, acute Acute upper respiratory infections of unspecified site Rhinosinusitis Unspecified sinusitis (chronic) [facility]* Diagnosis S/P laparoscopic sleeve gastrectomy- Primary Bariatric surgery status documented in this encounter [facility] [place] note* Diagnosis Increased PTH level- Primary Unspecified endocrine disorder documented in this encounter [facility] [place] note* Diagnosis Foot pain, right- Primary Pain in limb documented in this encounter [facility] [place] note* Diagnosis Dizziness- Primary Dizziness and giddiness Bilateral impacted cerumen Impacted cerumen documented in this encounter [facility] [place] note* Diagnosis Dizzy- Primary Dizziness and giddiness documented in this encounter [facility] [place] note* Diagnosis Generalized anxiety disorder- Primary Anxiety Anxiety state, unspecified Fatty liver disease, nonalcoholic Glucose intolerance (impaired glucose tolerance) Impaired glucose tolerance test Shahzad's disease Chronic lymphocytic thyroiditis Vitamin D deficiency Polyarthralgia Pain in joint, multiple sites Medication management Urinary incontinence, unspecified type Insomnia secondary to depression with anxiety Palpitations Ankylosing spondylitis, unspecified site of spine (CMS/HCC) Class 3 severe obesity due to excess calories with serious comorbidity and body mass index (BMI) of 50.0 to 59.9 in adult (CMS/HCC) Depression, major, single episode, moderate (CMS/HCC) documented in this encounter [facility] Work Phone: Evaluation note* Diagnosis Major [...] blood chemistry Depression, major, single episode, moderate ([facility]/HCC) Generalized anxiety disorder AAT (lvuuz-1-yznzagbcpli) deficiency ([facility]/HCC) Hqhfx-3-cibccnnzdbr deficiency Encounter for screening mammogram for breast cancer Class 3 severe obesity due to excess calories with serious comorbidity and body mass index (BMI) of 50.0 to 59.9 in adult ([facility]/HCC) documented in this encounter [facility] Work Phone: Evaluation note* Diagnosis URI, acute- Primary Acute upper respiratory infections of unspecified site Acute cough Acute cough [facility] Diagnosis Acute cough [facility]* Diagnosis Acute cough [facility]* Diagnosis Foot pain, right Pain in limb [facility]* Diagnosis Class 3 severe obesity with body mass index (BMI) of 50.0 to 59.9 in adult, unspecified obesity type, unspecified whether serious comorbidity present ([facility]) [facility]* Diagnosis Foot pain, left- Primary Pain in limb Injury of left foot, initial encounter Foot pain, left Pain in limb Injury of left foot, initial encounter [facility] Diagnosis Foot pain, left Pain in limb Injury of left foot, initial encounter [facility] Diagnosis Cervicalgia- Primary Anxiety Anxiety [...] status Medication management documented in this encounter [facility] Work Phone: Evaluation note* Diagnosis Chronic midline low back pain with sciatica, sciatica laterality unspecified documented in this encounter [facility] Work Phone: Evaluation note* Diagnosis Cervicalgia documented in this encounter [facility] Work Phone: Evaluation note* Diagnosis Major [...] sites Medication management documented in this encounter [facility] Work Phone: Evaluation note* Diagnosis Acute [...] Depression, major, single episode, moderate (Multi) AAT (kmjnt-2-vhrwoioenqc) deficiency (Multi) Pfalc-8-gkyhotuyzrj deficiency Encounter for dietary counseling and surveillance Fatty liver disease, nonalcoholic documented in this encounter [facility] Work Phone: Evaluation note* Diagnosis Sinus bradycardia- Primary Other specified cardiac dysrhythmias Encounter for screening for cardiovascular disorders Screening for other and unspecified cardiovascular conditions Chest pain, unspecified type Wide-complex tachycardia Paroxysmal ventricular tachycardia BMI 50.0-59.9, adult (HCC) Body Mass Index 50.0-59.9, adult [facility] Patient presents [...] * 2 morbid obese * 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 * She has had [...] of the last Controlled Substance Agreement: 05/25/2021 -[facility] Work Phone: History of Present [...] fog - we [facility] referral [facility] but she declines a this time [...] of the last Controlled Substance Agreement: 05/25/2021 -[facility] Work Phone: Reason for referral (narrative)* Outpatient Procedure (Routine) - Pending Review Specialty Diagnoses / Procedures Referred By Contharvey t Referred To Contact [facility] Diagnoses Dyspnea and respiratory abnormalities Procedures LUNG VOLUMES Hung Emerson MD [address] [place] [address] [address] Referral ID Status Reason Start Date Expiration Date Visits Requested Visits Authorized [id number] Pending Review Auto-Generat ed Referral 01/03/2022 02/02/2023 1 1 * Outpatient Procedure (Routine) - Pending Review Specialty Diagnoses / Procedures Referred By Contac t Referred To Contact [facility] Diagnoses Dyspnea and respiratory abnormalities Procedures LUNG DIFFUSION CAPACITY (DLCO) DIFFUSING CAPACITY Hung Emerson MD [address] [place] [address] Respiratory [place] [id number] Referral ID Status Reason Start Date Expiration Date Visits Requested Visits Authorized [id number] Pending Review Auto-Generat ed Referral 01/03/2022 02/02/2023 1 1 * Outpatient Procedure (Routine) - Pending Review Specialty Diagnoses / Procedures Referred By Contac t Referred To Contact [facility] Diagnoses Dyspnea and respiratory abnormalities Procedures SPIROMETRY - BASELINE AND POST DILATOR BRNCDILAT RSPSE SPMTRY PRE&POST-BRNCDILAT ADMN Hung Emerson MD [address] [place] [address] [place] [address] Referral ID Status Reason Start Date Expiration Date Visits Requested Visits Authorized [id number] Pending Review Auto-Generat ed Referral 01/03/2022 02/02/2023 1 1 * MRI/CT (Routine) - Pending Review Specialty Diagnoses / Procedures Referred By Contac t Referred To Contact CT IMAGING Diagnoses Shortness of breath Procedures CT CHEST WO IVCON DIAGNOSTIC COMPUTED TOMOGRAPHY THORAX W/O CNTRST Hung Emerson MD [address] [place] [address] [address] [address] Imaging Referral ID Status Reason Start Date Expiration Date Visits Requested Visits Authorized [id number] Pending Review Auto-Generat ed Referral 01/03/2022 02/02/2023 1 1 [facility] for referral (narrative)* Diagnostic Procedure Only (Routine) - Authorized Specialty Diagnoses / Procedures Referred By Contac t Referred To Contact US IMAGING Diagnoses Fatty liver Increased liver enzymes Procedures US ABDOMEN COMPLETE US ABDOMINAL REAL TIME W/IMAGE DOCUMENTATION Brooks Soto MD 1 [facility] [employer] [address] [place] [phone] Us Imaging Referral ID Status Reason Start Date Expiration Date Visits Requested Visits Authorized [id number] Authorized Auto-Generat ed Referral 01/13/2022 02/12/2023 1 1 [facility] for referral (narrative)* Diagnostic Procedure Only (Routine) - Closed Specialty Diagnoses / Procedures Referred By Contac t Referred To Contact US IMAGING Diagnoses Fatty liver Increased liver enzymes Procedures US ABDOMEN COMPLETE US ABDOMINAL REAL TIME W/IMAGE DOCUMENTATION Brooks Soto MD 1 [employer] [facility] [employer] [address] [address] Us Imaging Referral ID Status Reason Start Date Expiration Date V isits Requested Visits Authorized [id number] Closed Auto-Generate d Referral 01/13/2022 02/12/2023 1 1 [facility] for referral (narrative)* Diagnostic Procedure Only (Urgent) - Closed Specialty Diagnoses / Procedures Referred By Contac t Referred To Contact XR IMAGING Diagnoses Foot pain, right Procedures XR FOOT GENERAL 3V AP/LAT/OBL RIGHT RADEX FOOT COMPLETE MINIMUM 3 VIEWS [facility] [address] [place] [address] Xr Imaging Referral ID Status Reason Start Date Expiration Date V isits Requested Visits Authorized [id number] Closed Auto-Generate d Referral 11/08/2022 12/08/2023 1 1 [facility] for referral (narrative)* Diagnostic Procedure Only (Urgent) - Closed Specialty Diagnoses / Procedures Referred By Contac t Referred To Contact XR IMAGING Diagnoses Foot pain, right Procedures XR FOOT GENERAL 3V AP/LAT/OBL RIGHT RADEX FOOT COMPLETE MINIMUM 3 VIEWS [facility] [address] [place] [address] [place] [address] Referral ID Status Reason Start Date Expiration Date V isits Requested Visits Authorized [id number] Closed Auto-Generate d Referral 11/08/2022 12/08/2023 1 1 [facility] for referral (narrative)* Diagnostic Procedure Only (Urgent) - Closed Specialty Diagnoses / Procedures Referred By Contac t Referred To Contact XR IMAGING Diagnoses Foot pain, left Injury of left foot, initial encounter Procedures XR FOOT GENERAL 3V AP/LAT/OBL LEFT RADEX FOOT COMPLETE MINIMUM 3 VIEWS Chloé Tipton APRN.CNP [address] [place] [phone] [place] [address] Referral ID Status Reason Start Date Expiration Date V isits Requested Visits Authorized [id number] Closed Auto-Generate d Referral 06/07/2024 07/07/2025 1 1 [facility] for referral (narrative)* Diagnostic Procedure Only (Urgent) - Closed Specialty Diagnoses / Procedures Referred By Contac t Referred To Contact XR IMAGING Diagnoses Foot pain, left Injury of left foot, initial encounter Procedures XR FOOT GENERAL 3V AP/LAT/OBL LEFT RADEX FOOT COMPLETE MINIMUM 3 VIEWS Chloé Tipton APRN.CNP [address] [place] [address] [place] [address] Referral ID Status Reason Start Date Expiration Date V isits Requested Visits Authorized [id number] Closed Auto-Generate d Referral 06/07/2024 07/07/2025 1 1 [facility] for visit Narrative* Diagnostic Procedure Only (Routine) - Closed Specialty Diagnoses / Procedures Referred By Contac t Referred To Contact US IMAGING Diagnoses Fatty liver Increased liver enzymes Procedures US ABDOMEN COMPLETE US ABDOMINAL REAL TIME W/IMAGE DOCUMENTATION Brooks Soto MD [address] [address] Us Imaging Referral ID Status Reason Start Date Expiration Date V isits Requested Visits Authorized [id number] Closed Auto-Generate d Referral 01/13/2022 02/12/2023 1 1 [facility] for visit Narrative* Diagnostic Procedure Only (Urgent) - Closed Specialty Diagnoses / Procedures Referred By Contac t Referred To Contact XR IMAGING Diagnoses Foot pain, right Procedures XR FOOT GENERAL 3V AP/LAT/OBL RIGHT RADEX FOOT COMPLETE MINIMUM 3 VIEWS [facility] [address] [place] [address] [place] [address] Referral ID Status Reason Start Date Expiration Date V isits Requested Visits Authorized [id number] Closed Auto-Generate d Referral 11/08/2022 12/08/2023 1 1 [facility] for visit Narrative* Diagnostic Procedure Only (Urgent) - Closed Specialty Diagnoses / Procedures Referred By Contac t Referred To Contact XR IMAGING Diagnoses Foot pain, left Injury of left foot, initial encounter Procedures XR FOOT GENERAL 3V AP/LAT/OBL LEFT RADEX FOOT COMPLETE MINIMUM 3 VIEWS Chloé Tipton, HIGH [employer]CHO[employer] EDUCATION TEACHER [address] [place] [address] [place] [address] Referral ID Status Reason Start Date Expiration Date V isits Requested Visits Authorized [id number] Closed Auto-Generate d Referral 06/07/2024 07/07/2025 1 1 [facility] for visit Narrative* Imaging (Routine) - Authorized Specialty Diagnoses / Procedures Referred By Contac t Referred To Contact Radiology Diagnoses Chronic midline low back pain with sciatica, sciatica laterality unspecified Procedures XR lumbar spine 2-3 views [place] PA-C [address] [place] [address] Phone: tel: fax: Referral ID Status Reason Start Date Expiration Date Visits Requested Visits Authorized [id number] Authorized Perform Procedure 4 07/11/2025 1 1 [facility] Work Phone: Summary Purpose Family History [...] FoundDocuments on File Type Date Recorded Patient Nutritionist Expl anation Advance Directive(s) 05/20/2021 10:22 AM Advance Directive(s) 03/18/2021 1:41 PM Advance Directive(s) 09/21/2018 4:36 PM Advance Directive(s) 09/20/2018 11:48 AM Latest Code Status on File Code Status Date Activated Date Inactivated Comments Full Code 09/21/2018 5:42 PM 09/26/2018 4:27 PM Full Code Order Discussed With: Patient Full Code 09/18/2018 6:09 PM 09/20/2018 6:11 PM Documents on File Type Date Recorded Patient Nutritionist Expl anation Advance Directive(s) 05/20/2021 10:22 AM [...] No August 17, 022 8:27am Power of Clay Roaster No August 17, 2022 8:27am Advance Directive Response Recorded Date/ Time Living Will No November 15, 2022 1:50pm Power of Clay Roaster No November 15 1:50pm Advance Directive Response Recorded Date/ Time Living Will No January 05, 2023 7 :26am Power of Clay Roaster No January 05, 2023 7:26am Advance Directive Response Recorded Date/ Time Living Will No October 19 024 9:13am Power of Clay Roaster No October 19, 2023 9:13am Latest Code [...] Referred By Donna t Referred To Contact Gastroenterology Diagnoses Class 3 severe obesity due to excess calories with serious comorbidity and body mass index (BMI) of 60.0 to 69.9 in adult (HCC) Elevated liver enzymes Hepatomegaly Procedures CONSULT TO GASTROENTEROLOGY OFFICE/OUTPATIENT NEW HIGH MDM 60-74 MINUTES Laktash, Dee Dee, 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 [address] [facility] [address] [place] [address] Referral ID Status Reason Start Date Expiration Date Visits Requested Visits Authorized [id number] Authorized PCP Requested Referral 12/24/2021 03/24/2022 1 1 Specialty Diagnoses / Procedures Referred By Contac t Referred To Contact CT IMAGING Diagnoses S/P laparoscopic sleeve gastrectomy Right sided abdominal pain Procedures CT ABD/PEL W IVCON CT ABD & PELVIS W/CONTRAST Marjan Eddy, 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 1 [facility] [place] [address] Ct Imaging Referral ID Status Reason Start Date Expiration Date Visits Requested Visits Authorized [id number] Pending Review Patient Cleared - Admin/Chair man/Directo r advise to proceed 04/19/2022 05/19/2023 2 2 Specialty Diagnoses / Procedures Referred By Contac t Referred To Contact Radiology Diagnoses Encounter for screening mammogram for breast cancer Procedures BI mammo bilateral screening tomosynthesis Vargas Mujica PA-C [address] [place] [address] Referral ID Status Reason Start Date Expiration Date Visits Requested Visits Authorized [id number] Authorized Perform Procedure 09/25/2023 09/24/2024 1 1 Specialty Diagnoses / Procedures Referred By Contac t Referred To Contact Radiology Diagnoses Generalized anxiety disorder Procedures BI mammo bilateral screening tomosynthesis Vargas Mujica PA-C [address] [place] [address] Referral ID Status Reason Start Date Expiration Date Visits Requested Visits Authorized [id number] Authorized Perform Procedure 02/28/2024 02/27/2025 1 1 [...] DATE CREATED AUTHOR AUTHOR'S ORGANIZ ATION 02/20/2019 [facility] DATE CREATED AUTHOR AUTHOR'S ORGANIZ ATION 07/13/2020 [facility] DATE CREATED AUTHOR AUTHOR'S ORGANIZ ATION 10/17/2022 [facility] DATE CREATED AUTHOR AUTHOR'S ORGANIZ ATION 10/18/2022 [employer] DATE CREATED AUTHOR AUTHOR'S ORGANIZ ATION 02/14/2023 [facility] DATE CREATED AUTHOR AUTHOR'S ORGANIZ ATION 07/16/2024 [facility] DATE CREATED AUTHOR AUTHOR'S ORGANIZ ATION 07/16/2024 [facility] DATE CREATED AUTHOR AUTHOR'S ORGANIZ ATION 01/13/2025 [facility] DATE CREATED AUTHOR AUTHOR'S ORGANIZ ATION 02/13/2025 [facility] DATE CREATED AUTHOR AUTHOR'S ORGANIZ ATION 04/17/2025 [facility] DATE CREATED AUTHOR AUTHOR'S ORGANIZ ATION 05/07/2025 [facility] Source Comments (unrecognize d section and content) In the event this informatio n is protected by the Federal Confidentiality of Alcohol and Drug Abuse Patient Records regulations: The Federal rules restrict any use of the information to criminally investigate or prosecute any alcohol or drug abuse patient.[facility] the event this information is protected by the Federal Confidentiality of Alcohol and Drug Abuse Patient Records regulations: The Federal rules restrict any use of the information to criminally investigate or prosecute any alcohol or drug abuse patient.[facility] Hospital[facility] the event this information is protected by the Federal Confidentiality of Alcohol and Drug Abuse Patient Records regulations: The Federal rules restrict any use of the information to criminally investigate or prosecute any alcohol or drug abuse patient.[facility] HospitalIn the event this information is protected by the Federal Confidentiality of Alcohol and Drug Abuse Patient Records regulations: The Federal rules restrict any use of the information to criminally investigate or prosecute any alcohol or drug abuse patient.[facility] HospitalIn the event this information is protected by the Federal Confidentiality of Alcohol and Drug Abuse Patient Records regulations: The Federal rules restrict any use of the information to criminally investigate or prosecute any alcohol or drug abuse patient.[facility] Hospital[facility] the event this information is protected by the Federal Confidentiality of Alcohol and Drug Abuse Patient Records regulations: The Federal rules restrict any use of the information to criminally investigate or prosecute any alcohol or drug abuse patient.[facility] HospitalIn the event this information is protected by the Federal Confidentiality of Alcohol and Drug Abuse Patient Records regulations: The Federal rules restrict any use of the information to criminally investigate or prosecute any alcohol or drug abuse patient.[facility] Hospital[facility] the event this information is protected by the Federal Confidentiality of Alcohol and Drug Abuse Patient Records regulations: The Federal rules restrict any use of the information to criminally investigate or prosecute any alcohol or drug abuse patient.[facility] Hospital[facility] the event this information is protected by the Federal Confidentiality of Alcohol and Drug Abuse Patient Records regulations: The Federal rules restrict any use of the information to criminally investigate or prosecute any alcohol or drug abuse patient.[facility] Hospital[facility] the event this information is protected by the Federal Confidentiality of Alcohol and Drug Abuse Patient Records regulations: The Federal rules restrict any use of the information to criminally investigate or prosecute any alcohol or drug abuse patient.[facility] HospitalIn the event this information is protected by the Federal Confidentiality of Alcohol and Drug Abuse Patient Records regulations: The Federal rules restrict any use of the information to criminally investigate or prosecute any alcohol or drug abuse patient.[facility] HospitalIn the event this information is protected by the Federal Confidentiality of Alcohol and Drug Abuse Patient Records regulations: The Federal rules restrict any use of the information to criminally investigate or prosecute any alcohol or drug abuse patient.[facility] HospitalIn the event this information is protected by the Federal Confidentiality of Alcohol and Drug Abuse Patient Records regulations: The Federal rules restrict any use of the information to criminally investigate or prosecute any alcohol or drug abuse patient.[facility] HospitalIn the event this information is protected by the Federal Confidentiality of Alcohol and Drug Abuse Patient Records regulations: The Federal rules restrict any use of the information to criminally investigate or prosecute any alcohol or drug abuse patient.[facility] HospitalIn the event this information is protected by the Federal Confidentiality of Alcohol and Drug Abuse Patient Records regulations: The Federal rules restrict any use of the information to criminally investigate or prosecute any alcohol or drug abuse patient.[facility] HospitalIn the event this information is protected by the Federal Confidentiality of Alcohol and Drug Abuse Patient Records regulations: The Federal rules restrict any use of the information to criminally investigate or prosecute any alcohol or drug abuse patient.[facility] HospitalIn the event this information is protected by the Federal Confidentiality of Alcohol and Drug Abuse Patient Records regulations: The Federal rules restrict any use of the information to criminally investigate or prosecute any alcohol or drug abuse patient.[facility] HospitalIn the event this information is protected by the Federal Confidentiality of Alcohol and Drug Abuse Patient Records regulations: The Federal rules restrict any use of the information to criminally investigate or prosecute any alcohol or drug abuse patient.[facility] HospitalIn the event this information is protected by the Federal Confidentiality of Alcohol and Drug Abuse Patient Records regulations: The Federal rules restrict any use of the information to criminally investigate or prosecute any alcohol or drug abuse patient.[facility] HospitalIn the event this information is protected by the Federal Confidentiality of Alcohol and Drug Abuse Patient Records regulations: The Federal rules restrict any use of the information to criminally investigate or prosecute any alcohol or drug abuse patient.[facility] HospitalIn the event this information is protected by the Federal Confidentiality of Alcohol and Drug Abuse Patient Records regulations: The Federal rules restrict any use of the information to criminally investigate or prosecute any alcohol or drug abuse patient.[facility] HospitalIn the event this information is protected by the Federal Confidentiality of Alcohol and Drug Abuse Patient Records regulations: The Federal rules restrict any use of the information to criminally investigate or prosecute any alcohol or drug abuse patient.[facility] HospitalIn the event this information is protected by the Federal Confidentiality of Alcohol and Drug Abuse Patient Records regulations: The Federal rules restrict any use of the information to criminally investigate or prosecute any alcohol or drug abuse patient.[facility] HospitalIn the event this information is protected by the Federal Confidentiality of Alcohol and Drug Abuse Patient Records regulations: The Federal rules restrict any use of the information to criminally investigate or prosecute any alcohol or drug abuse patient.[facility] HospitalIn the event this information is protected by the Federal Confidentiality of Alcohol and Drug Abuse Patient Records regulations: The Federal rules restrict any use of the information to criminally investigate or prosecute any alcohol or drug abuse patient.[facility] ClinicIn the event this information is protected by the Federal Confidentiality of Alcohol and Drug Abuse Patient Records regulations: The Federal rules restrict any use of the information to criminally investigate or prosecute any alcohol or drug abuse patient.[facility] HospitalIn the event this information is protected by the Federal Confidentiality of Alcohol and Drug Abuse Patient Records regulations: The Federal rules restrict any use of the information to criminally investigate or prosecute any alcohol or drug abuse patient.[facility] HospitalIn the event this information is protected by the Federal Confidentiality of Alcohol and Drug Abuse Patient Records regulations: The Federal rules restrict any use of the information to criminally investigate or prosecute any alcohol or drug abuse patient.[facility] HospitalIn the event this information is protected by the Federal Confidentiality of Alcohol and Drug Abuse Patient Records regulations: The Federal rules restrict any use of the information to criminally investigate or prosecute any alcohol or drug abuse patient.[facility] HospitalIn the event this information is protected by the Federal Confidentiality of Alcohol and Drug Abuse Patient Records regulations: The Federal rules restrict any use of the information to criminally investigate or prosecute any alcohol or drug abuse patient.[facility] HospitalIn the event this information is protected by the Federal Confidentiality of Alcohol and Drug Abuse Patient Records regulations: The Federal rules restrict any use of the information to criminally investigate or prosecute any alcohol or drug abuse patient.[facility] HospitalIn the event this information is protected by the Federal Confidentiality of Alcohol and Drug Abuse Patient Records regulations: The Federal rules restrict any use of the information to criminally investigate or prosecute any alcohol or drug abuse patient.[facility] HospitalIn the event this information is protected by the Federal Confidentiality of Alcohol and Drug Abuse Patient Records regulations: The Federal rules restrict any use of the information to criminally investigate or prosecute any alcohol or drug abuse patient.[facility] HospitalIn the event this information is protected by the Federal Confidentiality of Alcohol and Drug Abuse Patient Records regulations: The Federal rules restrict any use of the information to criminally investigate or prosecute any alcohol or drug abuse patient.[facility] HospitalIn the event this information is protected by the Federal Confidentiality of Alcohol and Drug Abuse Patient Records regulations: The Federal rules restrict any use of the information to criminally investigate or prosecute any alcohol or drug abuse patient.[facility] HospitalIn the event this information is protected by the Federal Confidentiality of Alcohol and Drug Abuse Patient Records regulations: The Federal rules restrict any use of the information to criminally investigate or prosecute any alcohol or drug abuse patient.[facility] HospitalIn the event this information is protected by the Federal Confidentiality of Alcohol and Drug Abuse Patient Records regulations: The Federal rules restrict any use of the information to criminally investigate or prosecute any alcohol or drug abuse patient.[facility] HospitalIn the event this information is protected by the Federal Confidentiality of Alcohol and Drug Abuse Patient Records regulations: The Federal rules restrict any use of the information to criminally investigate or prosecute any alcohol or drug abuse patient.[facility] HospitalIn the event this information is protected by the Federal Confidentiality of Alcohol and Drug Abuse Patient Records regulations: The Federal rules restrict any use of the information to criminally investigate or prosecute any alcohol or drug abuse patient.[facility] HospitalIn the event this information is protected by the Federal Confidentiality of Alcohol and Drug Abuse Patient Records regulations: The Federal rules restrict any use of the information to criminally investigate or prosecute any alcohol or drug abuse patient.[facility] HospitalIn the event this information is protected by the Federal Confidentiality of Alcohol and Drug Abuse Patient Records regulations: The Federal rules restrict any use of the information to criminally investigate or prosecute any alcohol or drug abuse patient.[facility] HospitalIn the event this information is protected by the Federal Confidentiality of Alcohol and Drug Abuse Patient Records regulations: The Federal rules restrict any use of the information to criminally investigate or prosecute any alcohol or drug abuse patient.[facility] HospitalIn the event this information is protected by the Federal Confidentiality of Alcohol and Drug Abuse Patient Records regulations: The Federal rules restrict any use of the information to criminally investigate or prosecute any alcohol or drug abuse patient.[facility] HospitalIn the event this information is protected by the Federal Confidentiality of Alcohol and Drug Abuse Patient Records regulations: The Federal rules restrict any use of the information to criminally investigate or prosecute any alcohol or drug abuse patient.[facility] HospitalIn the event this information is protected by the Federal Confidentiality of Alcohol and Drug Abuse Patient Records regulations: The Federal rules restrict any use of the information to criminally investigate or prosecute any alcohol or drug abuse patient.[facility] HospitalIn the event this information is protected by the Federal Confidentiality of Alcohol and Drug Abuse Patient Records regulations: The Federal rules restrict any use of the information to criminally investigate or prosecute any alcohol or drug abuse patient.[facility] HospitalIn the event this information is protected by the Federal Confidentiality of Alcohol and Drug Abuse Patient Records regulations: The Federal rules restrict any use of the information to criminally investigate or prosecute any alcohol or drug abuse patient.[facility] HospitalIn the event this information is protected by the Federal Confidentiality of Alcohol and Drug Abuse Patient Records regulations: The Federal rules restrict any use of the information to criminally investigate or prosecute any alcohol or drug abuse patient.[facility] HospitalIn the event this information is protected by the Federal Confidentiality of Alcohol and Drug Abuse Patient Records regulations: The Federal rules restrict any use of the information to criminally investigate or prosecute any alcohol or drug abuse patient.[facility] HospitalIn the event this information is protected by the Federal Confidentiality of Alcohol and Drug Abuse Patient Records regulations: The Federal rules restrict any use of the information to criminally investigate or prosecute any alcohol or drug abuse patient.[facility] HospitalIn the event this information is protected by the Federal Confidentiality of Alcohol and Drug Abuse Patient Records regulations: The Federal rules restrict any use of the information to criminally investigate or prosecute any alcohol or drug abuse patient.[facility] HospitalIn the event this information is protected by the Federal Confidentiality of Alcohol and Drug Abuse Patient Records regulations: The Federal rules restrict any use of the information to criminally investigate or prosecute any alcohol or drug abuse patient.[facility] HospitalIn the event this information is protected by the Federal Confidentiality of Alcohol and Drug Abuse Patient Records regulations: The Federal rules restrict any use of the information to criminally investigate or prosecute any alcohol or drug abuse patient.[facility] HospitalIn the event this information is protected by the Federal Confidentiality of Alcohol and Drug Abuse Patient Records regulations: The Federal rules restrict any use of the information to criminally investigate or prosecute any alcohol or drug abuse patient.[facility] HospitalIn the event this information is protected by the Federal Confidentiality of Alcohol and Drug Abuse Patient Records regulations: The Federal rules restrict any use of the information to criminally investigate or prosecute any alcohol or drug abuse patient.[facility] HospitalIn the event this information is protected by the Federal Confidentiality of Alcohol and Drug Abuse Patient Records regulations: The Federal rules restrict any use of the information to criminally investigate or prosecute any alcohol or drug abuse patient.[facility] HospitalIn the event this information is protected by the Federal Confidentiality of Alcohol and Drug Abuse Patient Records regulations: The Federal rules restrict any use of the information to criminally investigate or prosecute any alcohol or drug abuse patient.[facility] HospitalIn the event this information is protected by the Federal Confidentiality of Alcohol and Drug Abuse Patient Records regulations: The Federal rules restrict any use of the information to criminally investigate or prosecute any alcohol or drug abuse patient.[facility] HospitalIn the event this information is protected by the Federal Confidentiality of Alcohol and Drug Abuse Patient Records regulations: The Federal rules restrict any use of the information to criminally investigate or prosecute any alcohol or drug abuse patient.[facility] HospitalIn the event this information is protected by the Federal Confidentiality of Alcohol and Drug Abuse Patient Records regulations: The Federal rules restrict any use of the information to criminally investigate or prosecute any alcohol or drug abuse patient.[facility] HospitalIn the event this information is protected by the Federal Confidentiality of Alcohol and Drug Abuse Patient Records regulations: The Federal rules restrict any use of the information to criminally investigate or prosecute any alcohol or drug abuse patient.[facility] HospitalIn the event this information is protected by the Federal Confidentiality of Alcohol and Drug Abuse Patient Records regulations: The Federal rules restrict any use of the information to criminally investigate or prosecute any alcohol or drug abuse patient.[facility] HospitalIn the event this information is protected by the Federal Confidentiality of Alcohol and Drug Abuse Patient Records regulations: The Federal rules restrict any use of the information to criminally investigate or prosecute any alcohol or drug abuse patient.[facility] HospitalIn the event this information is protected by the Federal Confidentiality of Alcohol and Drug Abuse Patient Records regulations: The Federal rules restrict any use of the information to criminally investigate or prosecute any alcohol or drug abuse patient.[facility] HospitalIn the event this information is protected by the Federal Confidentiality of Alcohol and Drug Abuse Patient Records regulations: The Federal rules restrict any use of the information to criminally investigate or prosecute any alcohol or drug abuse patient.[facility] HospitalIn the event this information is protected by the Federal Confidentiality of Alcohol and Drug Abuse Patient Records regulations: The Federal rules restrict any use of the information to criminally investigate or prosecute any alcohol or drug abuse patient.[facility] HospitalIn the event this information is protected by the Federal Confidentiality of Alcohol and Drug Abuse Patient Records regulations: The Federal rules restrict any use of the information to criminally investigate or prosecute any alcohol or drug abuse patient.[facility] HospitalIn the event this information is protected by the Federal Confidentiality of Alcohol and Drug Abuse Patient Records regulations: The Federal rules restrict any use of the information to criminally investigate or prosecute any alcohol or drug abuse patient.[facility] HospitalIn the event this information is protected by the Federal Confidentiality of Alcohol and Drug Abuse Patient Records regulations: The Federal rules restrict any use of the information to criminally investigate or prosecute any alcohol or drug abuse patient.[facility] HospitalIn the event this information is protected by the Federal Confidentiality of Alcohol and Drug Abuse Patient Records regulations: The Federal rules restrict any use of the information to criminally investigate or prosecute any alcohol or drug abuse patient.[facility] HospitalIn the event this information is protected by the Federal Confidentiality of Alcohol and Drug Abuse Patient Records regulations: The Federal rules restrict any use of the information to criminally investigate or prosecute any alcohol or drug abuse patient.[facility] HospitalIn the event this information is protected by the Federal Confidentiality of Alcohol and Drug Abuse Patient Records regulations: The Federal rules restrict any use of the information to criminally investigate or prosecute any alcohol or drug abuse patient.[facility] HospitalIn the event this information is protected by the Federal Confidentiality of Alcohol and Drug Abuse Patient Records regulations: The Federal rules restrict any use of the information to criminally investigate or prosecute any alcohol or drug abuse patient.[facility] HospitalIn the event this information is protected by the Federal Confidentiality of Alcohol and Drug Abuse Patient Records regulations: The Federal rules restrict any use of the information to criminally investigate or prosecute any alcohol or drug abuse patient.[facility] HospitalIn the event this information is protected by the Federal Confidentiality of Alcohol and Drug Abuse Patient Records regulations: The Federal rules restrict any use of the information to criminally investigate or prosecute any alcohol or drug abuse patient.[facility] ClinicIn the event this information is protected by the Federal Confidentiality of Alcohol and Drug Abuse Patient Records regulations: The Federal rules restrict any use of the information to criminally investigate or prosecute any alcohol or drug abuse patient.[facility] HospitalIn the event this information is protected by the Federal Confidentiality of Alcohol and Drug Abuse Patient Records regulations: The Federal rules restrict any use of the information to criminally investigate or prosecute any alcohol or drug abuse patient.[facility] HospitalIn the event this information is protected by the Federal Confidentiality of Alcohol and Drug Abuse Patient Records regulations: The Federal rules restrict any use of the information to criminally investigate or prosecute any alcohol or drug abuse patient.[facility] Reason for Visit (unrecogniz ed section [...] Hung Emerson MD [address] [place] [id number] Respiratory [place] [address] [place] [id number] Referral ID Status Reason Start Date Expiration Date V isits Requested Visits Authorized [id number] Closed Auto-Generate d Referral 01/03/2022 02/02/2023 1 1 Specialty Diagnoses / Procedures Referred By Contac t Referred To [facility] Diagnoses Dyspnea and respiratory abnormalities Procedures LUNG DIFFUSION CAPACITY (DLCO) DIFFUSING CAPACITY Hung Emerson MD [address] [place] [id number] Respiratory [place] [address] [place] [address] Referral ID Status Reason Start Date Expiration Date V isits Requested Visits Authorized [id number] Closed Auto-Generate d Referral 01/03/2022 02/02/2023 1 1 Specialty Diagnoses / Procedures Referred By Contac t Referred To Contact [facility] Diagnoses Dyspnea and respiratory abnormalities Procedures LUNG VOLUMES PLETHYSMOGRAPHY LUNG VOLUMES W/WO AIRWAY RESIST Hung Emerson MD [address] [place] [id number] Respiratory [place] [address] [place] [phone] Referral ID Status Reason Start Date Expiration Date V isits Requested Visits Authorized [id number] Closed Auto-Generate d Referral 01/19/2022 08/27/2022 1 [...] CT ABD & PELVIS W/CONTRAST Marjan Eddy, 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 [address] [place] [address] Ct Imaging Referral ID Status Reason Start Date Expiration Date Visits Requested Visits Authorized [id number] Pending Review Patient Cleared - Admin/Chair man/Directo [...] Care Teams (unrecognized sec tion and content) Cloth Bleaching Range Tender Relationship Specialty Start Date End Date Vargas Mujica PA [address] [place] [address] PCP - General Internal Medicine 09/17/18 Joshua Camacho (Hist) [address] [place] [address] Specialty Doormaker Cardiology 09/19/18 Edith Taylor MD [address] [place] [address] Specialty Doormaker Gastroenterology 09/19/18 Bonita Naqvi [address] [place] [address] Specialty Doormaker Rheumatology 09/19/18 No, Referral Referring Cardiology 06/26/19 Eric Crooks MD [address] [place] [address] Primary Staff Physician Cardiology 02/11/20 Cloth Bleaching Range Tender Relationship Specialty Start Date End Date Vargas Mujica PA [address] [place] [address] PCP - General Internal Medicine 09/17/18 Joshua Camacho (Hist) [address] [facility] [place] [address] (Fax) Specialty Doormaker Cardiology 09/19/18 Edith Taylor MD [address] [place] [address] Specialty Doormaker Gastroenterology 09/19/18 Bonita Naqvi [address] [place] [address] Specialty Doormaker Rheumatology 09/19/18 No, Referral Referring Cardiology 06/26/19 Eric Crooks MD [address] [place] [address] Primary Staff Physician Cardiology 02/11/20 Cloth Bleaching Range Tender Relationship Specialty Start Date End Date Vargas Mujica, JUNE [address] [place] [address] PCP - General Internal Medicine 09/17/18 Joshua Camacho (Hist) [address] [facility] [place] [place] [id number] Specialty Doormaker Cardiology 09/19/18 Edith Taylor MD [address] [place] [address] Specialty Doormaker Gastroenterology 09/19/18 Bonita Naqvi [address] [place] [address] Specialty Doormaker Rheumatology 09/19/18 No, Referral Referring Cardiology 06/26/19 Eric Crooks MD [address] [place] [address] Primary Staff Physician Cardiology 02/11/20 Cloth Bleaching Range Tender Relationship Specialty Start Date End Date Vargas Mujica, JUNE [address] [place] [address] PCP - General Internal Medicine 09/17/18 Joshua Camacho (Hist) [address] [place] [address] Specialty Doormaker Cardiology 09/19/18 Edith Taylor MD [address] [place] [address] Specialty Doormaker Gastroenterology 09/19/18 Bonita Naqvi [address] [place] [address] Specialty Doormaker Rheumatology 09/19/18 No, Referral Referring Cardiology 06/26/19 Eric Crooks MD [address] [place] [address] Primary Staff Physician Cardiology 02/11/20 Tomasz Garay MD [address] [facility] [place] [address] Cardiology 11/24/21 Cloth Bleaching Range Tender Relationship Specialty Start Date End Date Vargas Mujica PA [address] [place] [address] PCP - General Internal Medicine 09/17/18 Joshua Camacho (Hist) [address] [place] [address] Specialty Doormaker Cardiology 09/19/18 Edith Taylor MD [address] [place] [address] Specialty Doormaker Gastroenterology 09/19/18 Bonita Naqvi [address] [place] [address] Specialty Doormaker Rheumatology 09/19/18 No, Referral Referring Cardiology 06/26/19 Eric Crooks MD [address] [place] [address] Primary Staff Physician Cardiology 02/11/20 Tomasz Garay MD [address] [facility] [place] [address] Cardiology 11/24/21 Cloth Bleaching Range Tender Relationship Specialty Start Date End Date Vargas Mujica, JUNE [address] [place] [address] PCP - General Internal Medicine 09/17/18 Joshua Camacho (Hist) [address] [facility] [place] [address] Specialty Doormaker Cardiology 09/19/18 Edith Taylor MD [address] [place] [address] Specialty Doormaker Gastroenterology 09/19/18 Bonita Naqvi [address] [place] [address] Specialty Doormaker Rheumatology 09/19/18 No, Referral Referring Cardiology 06/26/19 Eric Crooks MD [address] [place] [address] Primary Staff Physician Cardiology 02/11/20 Tomasz Garay MD [address] [facility] [place] [id number] Cardiology 11/24/21 Cloth Bleaching Range Tender Relationship Specialty Start Date End Date Vargas Mujica, PA [address] [place] [address] PCP - General Internal Medicine 09/17/18 Joshua Camacho (Hist) [address] [facility] [place] [address] Specialty Doormaker Cardiology 09/19/18 Edith Taylor MD [address] [place] [address] Specialty Doormaker Gastroenterology 09/19/18 Bonita Naqvi [address] [place] [address] Specialty Doormaker Rheumatology 09/19/18 No, Referral Referring Cardiology 06/26/19 Eric Crooks MD [address] [place] [address] Primary Staff Physician Cardiology 02/11/20 Tomasz Garay MD [address] [facility] [place] [address] Cardiology 11/24/21 Cloth Bleaching Range Tender Relationship Specialty Start Date End Date Vargas Mujica PA [address] [place] [address] PCP - General Internal Medicine 09/17/18 Joshua Camacho (Hist) [address] [facility] [place] [address] (Fax) Specialty Doormaker Cardiology 09/19/18 Edith Taylor MD [address] [place], [place] [id number] Specialty Doormaker Gastroenterology 09/19/18 Bonita Naqvi [address] [place], [place] [address] Specialty Doormaker Rheumatology 09/19/18 No, Referral Referring Cardiology 06/26/19 Eric Crooks MD [address] [place] [address] Primary Staff Physician Cardiology 02/11/20 Tomasz Garay MD [address] [facility] [place] [address] Cardiology 11/24/21 Cloth Bleaching Range Tender Relationship Specialty Start Date End Date Vargas Mujica PA [address] [place] [address] PCP - General Internal Medicine 09/17/18 Joshua Camacho (Hist) [address] [facility] [place] [address] Specialty Doormaker Cardiology 09/19/18 Edith Taylor MD [address] [place], [place] [id number] Specialty Doormaker Gastroenterology 09/19/18 Bonita Naqvi [address] [address] Specialty Doormaker Rheumatology 09/19/18 No, Referral Referring Cardiology 06/26/19 Eric Crooks MD [address] [place], [place] [id number] Primary Staff Physician Cardiology 02/11/20 Tomasz Garay MD [address] [facility] [place] [address] Cardiology 11/24/21 Cloth Bleaching Range Tender Relationship Specialty Start Date End Date Vargas Mujica PA [address] [place], [place] 737[address] PCP - General Internal Medicine 09/17/18 Joshua Camacho (Hist) [address] [facility] [place] [address] Specialty Doormaker Cardiology 09/19/18 Edith Taylor MD [address] [place] [address] Specialty Doormaker Gastroenterology 09/19/18 Bonita Naqvi [address] [place] [address] Specialty Doormaker Rheumatology 09/19/18 No, Referral Referring Cardiology 06/26/19 Eric Crooks MD [address] [place] [address] Primary Staff Physician Cardiology 02/11/20 Tomasz Garay MD [address] [place] [address] Cardiology 11/24/21 Cloth Bleaching Range Tender Relationship Specialty Start Date End Date Vargas Mujica PA [address] [place], [place] [id number] PCP - General Internal Medicine 09/17/18 Joshua Camacho (Hist) [address] [facility] [place] [address] (Fax) Specialty Doormaker Cardiology 09/19/18 Edith Taylor MD [address] [place] [address] Specialty Doormaker Gastroenterology 09/19/18 Bonita Naqvi [address] [place] [address] Specialty Doormaker Rheumatology 09/19/18 No, Referral Referring Cardiology 06/26/19 Eric Crooks MD [address] [place] [address] Primary Staff Physician Cardiology 02/11/20 Tomasz Garay MD [address] [facility] [place] [address] Cardiology 11/24/21 Cloth Bleaching Range Tender Relationship Specialty Start Date End Date Vargas Mujica PA [address] [place] [address] PCP - General Internal Medicine 09/17/18 Joshua Camacho (Hist) [address] [facility] [place] [address] Specialty Doormaker Cardiology 09/19/18 Edith Taylor MD [address] [place] [address] Specialty Doormaker Gastroenterology 09/19/18 Bonita Naqvi [address] [facility] [place] [address] Specialty Doormaker Rheumatology 09/19/18 No, Referral Referring Cardiology 06/26/19 Eric Crooks MD [address] [place] [address] Primary Staff Physician Cardiology 02/11/20 Tomasz Garay MD [address] [facility] [place] [address] Cardiology 11/24/21 Cloth Bleaching Range Tender Relationship Specialty Start Date End Date Vargas Mujica PA [address] [place] [address] PCP - General Internal Medicine 09/17/18 Joshua Camacho (Hist) [address] [facility] [place], [place] [address]31 Specialty Doormaker Cardiology 09/19/18 Edith Taylor MD [address] [place] [address] Specialty Doormaker Gastroenterology 09/19/18 Bonita Naqvi [address] [place] [address] Specialty Doormaker Rheumatology 09/19/18 No, Referral Referring Cardiology 06/26/19 Eric Crooks MD [address] [place] [address] Primary Staff Physician Cardiology 02/11/20 Tomasz Garay MD [address] [facility] [place] [address] Cardiology 11/24/21 Cloth Bleaching Range Tender Relationship Specialty Start Date End Date Vargas Mujica PA [address] [place] [address] PCP - General Internal Medicine 09/17/18 Joshua Camacho (Hist) [address] [facility] [place] [address] Specialty Doormaker Cardiology 09/19/18 Edith Taylor MD [address] [place] [address] Specialty Doormaker Gastroenterology 09/19/18 Bonita Naqvi [address] [place] [address] Specialty Doormaker Rheumatology 09/19/18 No, Referral Referring Cardiology 06/26/19 Eric Crooks MD [address] [place] [address] Primary Staff Physician Cardiology 02/11/20 Tomasz Garay MD [address] [facility] [place] [address] Cardiology 11/24/21 Cloth Bleaching Range Tender Relationship Specialty Start Date End Date Vargas Mujica, JUNE [address] [place] [address] PCP - General Internal Medicine 09/17/18 Joshua Camacho (Hist) [address] [place] [address] Specialty Doormaker Cardiology 09/19/18 Edith Taylor MD Specialty Doormaker Gastroenterology 09/19/18 Bonita Naqvi [address] [place] [address] Specialty Doormaker Rheumatology 09/19/18 No, Referral Referring Cardiology 06/26/19 Eric Crooks MD [address] [place] [address] Primary Staff Physician Cardiology 02/11/20 Tomasz Garay MD [address] [facility] [place] [address] Cardiology 11/24/21 Cloth Bleaching Range Tender Relationship Specialty Start Date End Date Vargas Mujica PA [address] [place], [place] [id number] PCP - General Internal Medicine 09/17/18 Joshua Camacho (Hist) [address] [place], [place] [id number] Specialty Doormaker Cardiology 09/19/18 Edith Taylor MD [address] [place], [place] 5157395 Specialty Doormaker Gastroenterology 09/19/18 Bonita Naqvi [address] [place] [address] Specialty Doormaker Rheumatology 09/19/18 No, Referral Referring Cardiology 06/26/19 Eric Crooks MD [address] [place], [place] 1662095 Primary Staff Physician Cardiology 02/11/20 Tomasz Garay MD [address] [place] [address] Cardiology 11/24/21 Brooks Soto MD [address] [place] [address] Gastroenterology 02/02/22 Brooks Soto MD 1 [facility] [address] [place] [address] Gastroenterology 02/02/22 Hung Emerson MD [address] [place] [address] Pulmonary and Critical Care Medicine 02/02/22 Cloth Bleaching Range Tender Relationship Specialty Start Date End Date Vargas Mujica PA [address] [place] [address] PCP - General Internal Medicine 09/17/18 Joshua Camacho (Hist) [address] [place], [place] 532531 Specialty Doormaker Cardiology 09/19/18 Edith Taylor MD [address] [place] [address] Specialty Doormaker Gastroenterology 09/19/18 Bonita Naqvi [address] [place] [address] Specialty Doormaker Rheumatology 09/19/18 No, Referral Referring Cardiology 06/26/19 Eric Crooks MD [address] [place] [address] Primary Staff Physician Cardiology 02/11/20 Tomasz Garay MD [address] [place] [address] Cardiology 11/24/21 Brooks Soto MD [address] [facility] [address] [place] [address] Gastroenterology 02/02/22 Brooks Soto MD 1 [facility] [address] [place] [address] Gastroenterology 02/02/22 Hung Emerson MD [address] [place] [address] Pulmonary and Critical Care Medicine 02/02/22 Cloth Bleaching Range Tender Relationship Specialty Start Date End Date Vargas Mujica, JUNE [address] [facility] [place] [address] PCP - General Internal Medicine 09/17/18 Joshua Camacho (Hist) [address] [place], [place] 197591 Specialty Doormaker Cardiology 09/19/18 Edith Taylor MD [address] [place], [place] 6375795 Specialty Doormaker Gastroenterology 09/19/18 Kalpeshedisonia Bonita Suzi [address] [place], [place] [id number] Specialty Doormaker Rheumatology 09/19/18 No, Referral Referring Cardiology 06/26/19 Eric Crooks MD [address] [place] [address] Primary Staff Physician Cardiology 02/11/20 Tomasz Gar[place] MD [address] [place], [place] [id number] Cardiology 11/24/21 Brooks Soto MD [address] [place] [address] Gastroenterology 02/02/22 Brooks Soto MD 1 [facility] [address] [place] [address] Gastroenterology 02/02/22 Hung Emerson MD [address] [place] [address] Pulmonary and Critical Care Medicine 02/02/22 Cloth Bleaching Range Tender Relationship Specialty Start Date End Date Vargas Mjuica, JUNE [address] [facility] [place] [address] PCP - General Internal Medicine 09/17/18 Joshua Camacho (Hist) [address] [place] [address] Specialty Doormaker Cardiology 09/19/18 Edith Taylor MD [address] [place] [address] Specialty Doormaker Gastroenterology 09/19/18 Bonita Naqvi [address] [facility] H[facility]ITALANTIONETTE [place], [place] 6[address]31 Specialty Doormaker Rheumatology 09/19/18 No, Referral Referring Cardiology 06/26/19 Eric Crooks MD [address] [place], [place] 7987495 Primary Staff Physician Cardiology 02/11/20 Tomasz Gar[place] MD [address] [place], [place] [id number] Cardiology 11/24/21 Brooks Soto MD [address] [facility] [address] [place], [place] [id number] Gastroenterology 02/02/22 Brooks Soto MD 1 [facility] [address] [place], [place] [id number] Gastroenterology 02/02/22 Hung Emerson MD [address] [place] [address] Pulmonary and Critical Care Medicine 02/02/22 Cloth Bleaching Range Tender Relationship Specialty Start Date End Date Vargas Mujica, JUNE [address] [facility] [facility] [place] [address] PCP - General Internal Medicine 09/17/18 Joshua Camacho (Hist) [address] [place], [place] [id number] Specialty Doormaker Cardiology 09/19/18 Edith Taylor MD [address] [place] [address] Specialty Doormaker Gastroenterology 09/19/18 Bonita Naqvi [address] [place] [address] Specialty Doormaker Rheumatology 09/19/18 No, Referral Referring Cardiology 06/26/19 [facility], Eric Jules MD [address] [place] [address] Primary Staff Physician Cardiology 02/11/20 Tomasz Gar[place] MD [address] [place] [address] Cardiology 11/24/21 Brooks Soto MD [address] [facility] [address] [place] [address] Gastroenterology 02/02/22 Brooks Soto MD 1 [facility] [address] [place] [address] Gastroenterology 02/02/22 Hung Emerson MD [address] [place] [address] Pulmonary and Critical Care Medicine 02/02/22 Cloth Bleaching Range Tender Relationship Specialty Start Date End Date Vargas Mujica, JUNE [address] [facility] [facility] [place] [address] PCP - General Internal Medicine 09/17/18 Joshua Camacho (Hist) [address] [place] [address] Specialty Doormaker Cardiology 09/19/18 Edith Taylor MD [address] [place] [address] Specialty Doormaker Gastroenterology 09/19/18 Bonita Naqvi [address] [place] [address] Specialty Doormaker Rheumatology 09/19/18 No, Referral Referring Cardiology 06/26/19 Eric Crooks MD [address] [place] [address] Primary Staff Physician Cardiology 02/11/20 Tomasz Gar[place] MD 7[address] [facility] [place] [place] 53[address]21 Cardiology 11/24/21 Brooks Soto MD [address] [place] [address] Gastroenterology 02/02/22 Brooks Soto MD 1 [facility] [address] [place], [place] [id number] Gastroenterology 02/02/22 Hung Emerson MD [address] [place] [address] Pulmonary and Critical Care Medicine 02/02/22 Cloth Bleaching Range Tender Relationship Specialty Start Date End Date Vargas Mujica, JUNE [address] [facility] [facility] [place] [address] PCP - General Internal Medicine 09/17/18 Joshua Camacho (Hist) [address] [facility]ITALJU[facility]OSKojo [place], [place] [id number] Specialty Doormaker Cardiology 09/19/18 Edith Taylor MD [address] [place] [address] Specialty Doormaker Gastroenterology 09/19/18 Bonita Naqvi [address] [place], [place] 22368[address] Specialty Doormaker Rheumatology 09/19/18 No, Referral Referring Cardiology 06/26/19 Eric Crooks MD [address] [place] [address] Primary Staff Physician Cardiology 02/11/20 Tomasz Gar[place] MD [address] [place], [place] [id number] Cardiology 11/24/21 Brooks Soto MD [address] [facility] [address] [place], [place] [address] Gastroenterology 02/02/22 Brooks Soto MD 1 [facility] [address] [place] [address] Gastroenterology 02/02/22 Hung Emerson MD [address] [place] [address] Pulmonary and Critical Care Medicine 02/02/22 Cloth Bleaching Range Tender Relationship Specialty Start Date End Date Vargas Mujica PA 2021 S [facility] [address] PCP - General Internal Medicine 09/17/18 Joshua Camacho (Hist) [address] [place], [place] [id number] Specialty Doormaker Cardiology 09/19/18 Edith Taylor MD [address] [place] [address] Specialty Doormaker Gastroenterology 09/19/18 Bonita Naqvi [address] [place] [address] Specialty Doormaker Rheumatology 09/19/18 No, Referral Referring Cardiology 06/26/19 Eric Crooks MD [address] [place] [address] Primary Staff Physician Cardiology 02/11/20 Tomasz Gar[place] MD [address] [place], [place] [phone] Cardiology 11/24/21 Brooks Soto MD [address] [place], [place] [id number] Gastroenterology 02/02/22 Brooks Soto MD 1 [facility] [address] [place] [address] Gastroenterology 02/02/22 Hung Emerson MD [address] [place] [address] Pulmonary and Critical Care Medicine 02/02/22 Cloth Bleaching Range Tender Relationship Specialty Start Date End Date Vargas Mujica, JUNE [address] [facility] [facility] [place] [address] PCP - General Internal Medicine 09/17/18 Joshua Camacho (Hist) [address] [place], [place] [id number] Specialty Doormaker Cardiology 09/19/18 Edith Taylor MD [address] [place] [address] Specialty Doormaker Gastroenterology 09/19/18 Bonita Naqvi [address]27 [place] [address] Specialty Doormaker Rheumatology 09/19/18 No, Referral Referring Cardiology 06/26/19 Eric Crooks MD [address] [place] [address] Primary Staff Physician Cardiology 02/11/20 Tomasz Gaary MD [address] [place] [address] Cardiology 11/24/21 Brooks Soto MD [address] [place], [place] [id number] Gastroenterology 02/02/22 Brooks Soto MD [address] [facility] [address] [facility] [address] [place], [place] [id number] Gastroenterology 02/02/22 Hung Emerson MD [address] [place] [address] Pulmonary and Critical Care Medicine 02/02/22 Cloth Bleaching Range Tender Relationship Specialty Start Date End Date Vargas Mujica PA [address] [facility] [facility] [place] [address] PCP - General Internal Medicine 09/17/18 Joshua Camacho (Hist) [address] [facility] [place], [place] 734931 Specialty Doormaker Cardiology 09/19/18 Edith Taylor MD [address] [place], [place] 1870595 Specialty Doormaker Gastroenterology 09/19/18 Bonita Naqvi [address] [place] [address] Specialty Doormaker Rheumatology 09/19/18 No, Referral Referring Cardiology 06/26/19 Eric Crooks MD [address] [place] [address] Primary Staff Physician Cardiology 02/11/20 Tomasz Gar[place] MD [address] [place] [address] Cardiology 11/24/21 Brooks Soto MD 4302 [facility] 140 [place], [place] [id number] Gastroenterology 02/02/22 Brooks Soto MD [address] [facility] [address] [place], [place] [id number] Gastroenterology 02/02/22 Hung Emerson MD [address] [place] [address] Pulmonary and Critical Care Medicine 02/02/22 Cloth Bleaching Range Tender Relationship Specialty Start Date End Date Vargas Mujica PA 2021 [address] [place] [address] PCP - General Internal Medicine 09/17/18 Joshua Camacho (Hist) [address] [place], [place] 570721 Specialty Doormaker Cardiology 09/19/18 Edith Taylor MD [address] [place], [place] 1179395 Specialty Doormaker Gastroenterology 09/19/18 Bonita Naqvi [address] [place] [address] Specialty Doormaker Rheumatology 09/19/18 No, Referral Referring Cardiology 06/26/19 Eric Crooks MD [address] [place], [place] 4778395 Primary Staff Physician Cardiology 02/11/20 Tomasz Gar[place] MD [address] [place], [place] [id number] Cardiology 11/24/21 Brooks Soto MD [address] [facility] 140 [place] [address] Gastroenterology 02/02/22 Brooks Soto MD [address] [address] Gastroenterology 02/02/22 Hung Emerson MD [address] [place] [address] Pulmonary and Critical Care Medicine 02/02/22 Cloth Bleaching Range Tender Relationship Specialty Start Date End Date Vargas Mujica PA [address] [place] [address] PCP - General Internal Medicine 09/17/18 Joshua Camacho (Hist) [address] [place] [address] Specialty Doormaker Cardiology 09/19/18 Edith Taylor MD [address] [place], [place] 9242095 Specialty Doormaker Gastroenterology 09/19/18 Bonita Naqvi [address] [place] [address] Specialty Doormaker Rheumatology 09/19/18 No, Referral Referring Cardiology 06/26/19 Eric Crooks MD [address] [place] [address] Primary Staff Physician Cardiology 02/11/20 Tomasz Gar[place] MD 7[address] E [facility] [place], [place] 530731 Cardiology 11/24/21 Brooks Soto MD 4302 [facility] [address] [place] [address] Gastroenterology 02/02/22 Brooks Soto MD 1 [facility] [address] [place] [address] Gastroenterology 02/02/22 Hung Emerson MD [address] [place] [address] Pulmonary and Critical Care Medicine 02/02/22 Cloth Bleaching Range Tender Relationship Specialty Start Date End Date Vargas Mujica PA [address] [place] [address] PCP - General Internal Medicine 09/17/18 Joshua Camacho (Hist) [address] [place], [place] [phone] Specialty Doormaker Cardiology 09/19/18 Edith Taylor MD [address] [place] [address] Specialty Doormaker Gastroenterology 09/19/18 Bonita Naqvi [address] [place] [address] Specialty Doormaker Rheumatology 09/19/18 No, Referral Referring Cardiology 06/26/19 Eric Crooks MD [address] [place] [address] Primary Staff Physician Cardiology 02/11/20 Tomasz Gar[place] MD [address] [place], [place] 398511 Cardiology 11/24/21 Brooks Soto MD [address] [facility] [address] [place] [address] Gastroenterology 02/02/22 Brooks Soto MD 1 [facility] [address] [place] [address] Gastroenterology 02/02/22 Hung Emerson MD [address] [place] [address] Pulmonary and Critical Care Medicine 02/02/22 Cloth Bleaching Range Tender Relationship Specialty Start Date End Date Vargas Mujica PA [address] [facility] [place] [address] PCP - General Internal Medicine 09/17/18 Joshua Camacho (Hist) [address] [place], [place] [id number] Specialty Doormaker Cardiology 09/19/18 Edith Taylor MD [address] [place] [address] Specialty Doormaker Gastroenterology 09/19/18 Donya Bonita Suzi [address] [place], [place] 454231 Specialty Doormaker Rheumatology 09/19/18 No, Referral Referring Cardiology 06/26/19 Eric Crooks MD [address] [place] [address] Primary Staff Physician Cardiology 02/11/20 Tomasz Gar[place] MD 721 E [facility] [place], [place] [id number] Cardiology 11/24/21 Brooks Soto MD [address] [place], [place] 344[address] Gastroenterology 02/02/22 Brooks Soto MD 1 [facility] [address] [place] [address] Gastroenterology 02/02/22 Hung Emerson MD [address] [place] [address] Pulmonary and Critical Care Medicine 02/02/22 Cloth Bleaching Range Tender Relationship Specialty Start Date End Date Vargas Mujica, JUNE [address] [facility] [place] [address] PCP - General Internal Medicine 09/17/18 Joshua Camacho (Hist) [address] [place], [place] [id number] Specialty Doormaker Cardiology 09/19/18 [place] [address] [place] [address] Specialty Doormaker Gastroenterology 09/19/18 Bonita Naqvi [address] [place], [place] 674781 Specialty Doormaker Rheumatology 09/19/18 No, Referral Referring Cardiology 06/26/19 Eric Crooks MD [address] [place] [address] Primary Staff Physician Cardiology 02/11/20 Tomasz Gar[place] MD [address] [place], [place] [id number] Cardiology 11/24/21 Brooks Soto MD 4302 [facility] 140 [place], [place] [id number] Gastroenterology 02/02/22 Brooks Soto MD 1 [facility] [address] [place] [address] Gastroenterology 02/02/22 Hung Emerson MD [address] [place] [address] Pulmonary and Critical Care Medicine 02/02/22 Cloth Bleaching Range Tender Relationship Specialty Start Date End Date Vargas Mujica, JUNE [address] [facility] [facility] [place] [address] PCP - General Internal Medicine 09/17/18 Joshua Camacho (Hist) [address] [place] [address] Specialty Doormaker Cardiology 09/19/18 Edith Taylor MD [address] [place] [address] Specialty Doormaker Gastroenterology 09/19/18 Bonita Naqvi [address] [place] [address] Specialty Doormaker Rheumatology 09/19/18 No, Referral Referring Cardiology 06/26/19 Eric Crooks MD [address] [place] [address] Primary Staff Physician Cardiology 02/11/20 Tomasz Gar[place] MD [address] [place], [place] [id number] Cardiology 11/24/21 Brooks Soto MD [address] [facility] [address] [place] [address] Gastroenterology 02/02/22 Brooks Soto MD 1 [facility] [address] [place] [address] Gastroenterology 02/02/22 Hung Emerson MD [address] [place] [address] Pulmonary and Critical Care Medicine 02/02/22 Cloth Bleaching Range Tender Relationship Specialty Start Date End Date Vargas Mujica, PA [address] [facility] [facility] [place] [address] PCP - General Internal Medicine 09/17/18 Joshua Camacho (Hist) [address] [place], [place] [id number] Specialty Doormaker Cardiology 09/19/18 Edith Taylor MD [address] [place] [address] Specialty Doormaker Gastroenterology 09/19/18 Bonita Naqvi [address] [place] [address] Specialty Doormaker Rheumatology 09/19/18 No, Referral Referring Cardiology 06/26/19 Eric Crooks MD [address] [place], [place] 5911595 Primary Staff Physician Cardiology 02/11/20 Tomasz Gar[place] MD [address] [place], [place] [id number] Cardiology 11/24/21 Brooks Soto MD [address] [place] [address] Gastroenterology 02/02/22 Brooks Soto MD 1 [facility] [address] [place] [address] Gastroenterology 02/02/22 Hung Emerson MD [address] [place] [address] Pulmonary and Critical Care Medicine 02/02/22 Cloth Bleaching Range Tender Relationship Specialty Start Date End Date Vargas Mujica PA [address] [facility] [facility] [place] [address] PCP - General Internal Medicine 09/17/18 Joshua Camacho (Hist) [address] [place], [place] [id number] Specialty Doormaker Cardiology 09/19/18 Edith Taylor MD [address] [place] [address] Specialty Doormaker Gastroenterology 09/19/18 Bonita Naqvi [address] [place] [address] Specialty Doormaker Rheumatology 09/19/18 No, Referral Referring Cardiology 06/26/19 Eric Crooks MD [address] [place] [address] Primary Staff Physician Cardiology 02/11/20 Tomasz Gar[place] MD [address] [place] [place], [place] 047841 Cardiology 11/24/21 Brooks Soto MD [address] [place], [place] [id number] Gastroenterology 02/02/22 Brooks Soto MD 1 [facility] [address] [place] [address] Gastroenterology 02/02/22 Hung Emerson MD [address] [place] [address] Pulmonary and Critical Care Medicine 02/02/22 Cloth Bleaching Range Tender Relationship Specialty Start Date End Date Vargas Mujica, PA 2021 [address] [facility] [place] [address] PCP - General Internal Medicine 09/17/18 Joshua Camacho (Hist) [address] [place], [place] [address] Specialty Doormaker Cardiology 09/19/18 Eidth Taylor MD [address] [place], [place] [id number] Specialty Doormaker Gastroenterology 09/19/18 Bonita Naqvi [address] [place] [address] Specialty Doormaker Rheumatology 09/19/18 No, Referral Referring Cardiology 06/26/19 Eric Crooks MD [address] [place] [address] Primary Staff Physician Cardiology 02/11/20 Tomasz Gar[place] MD [address] [facility] [place] [address] Cardiology 11/24/21 Brooks Soto MD [address] [place] [address] Gastroenterology 02/02/22 Brooks Soto MD [address] [facility] [address] [facility] [address] [place], [place] [id number] Gastroenterology 02/02/22 Hung Emerson MD [address] [place] [address] Pulmonary and Critical Care Medicine 02/02/22 Cloth Bleaching Range Tender Relationship Specialty Start Date End Date Vargas Mujica, PA 2021 [address] [facility] [address] PCP - General Internal Medicine 09/17/18 Joshua Camacho (Hist) [address] [facility] [place], [place] [phone] Specialty Doormaker Cardiology 09/19/18 Edith Taylor MD [address] [place] [address] Specialty Doormaker Gastroenterology 09/19/18 Bonita Naqvi [address] [place] [address] Specialty Doormaker Rheumatology 09/19/18 No, Referral Referring Cardiology 06/26/19 Eric Crooks MD [address] [place] [address] Primary Staff Physician Cardiology 02/11/20 Tomasz Gar[place] MD [address] [place], [place] [id number] Cardiology 11/24/21 Brooks Soto MD [address] [place], [place] [address] Gastroenterology 02/02/22 Brooks Soto MD 1 [facility] [address] [place] [address] Gastroenterology 02/02/22 Hung Emerson MD [address] [place], [place] [id number] Pulmonary and Critical Care Medicine 02/02/22 Cloth Bleaching Range Tender Relationship Specialty Start Date End Date Vargas Mujica PA [address] [facility] [place] [address] PCP - General Internal Medicine 09/17/18 Joshua Camacho (Hist) [address] [facility] [place] [address] Specialty Doormaker Cardiology 09/19/18 Edith Taylor MD [address] [place], [place] [id number] Specialty Doormaker Gastroenterology 09/19/18 Bonita Naqvi [address] [place] [address] Specialty Doormaker Rheumatology 09/19/18 No, Referral Referring Cardiology 06/26/19 Eric Crooks MD [address] [place] [address] Primary Staff Physician Cardiology 02/11/20 Tomasz [place] MD [address] [place] [address] Cardiology 11/24/21 Brooks Soto MD [address] [facility] [address] [place], [place] [id number] Gastroenterology 02/02/22 Brooks Soto MD [address] [address] Gastroenterology 02/02/22 Hung Emerson MD [address] [place] [address] Pulmonary and Critical Care Medicine 02/02/22 Cloth Bleaching Range Tender Relationship Specialty Start Date End Date Vargas Mujica PA [address] [facility] [place] [address] PCP - General Internal Medicine 09/17/18 Joshua Camacho [address] [place], [place] [id number] Specialty Doormaker Cardiology 09/19/18 Edith Taylor MD [address] [place], [place] 5556495 Specialty Doormaker Gastroenterology 09/19/18 Bonita Naqvi [address] [place], [place] 614221 Specialty Doormaker Rheumatology 09/19/18 No, Referral Referring Cardiology 06/26/19 Eric Crooks MD [address] [place] [address] Primary Staff Physician Cardiology 02/11/20 Tomasz [place] MD [address] [place] [address] Cardiology 11/24/21 Brooks Soto MD 4302 [facility] 140 [place] [address] Gastroenterology 02/02/22 Brooks Soto MD 1 [facility] [address] [place] [address] Gastroenterology 02/02/22 Hung Emerson MD [address] [place] [address] Pulmonary and Critical Care Medicine 02/02/22 Cloth Bleaching Range Tender Relationship Specialty Start Date End Date Vargas Mujica PA [address] [place] [address] PCP - General Internal Medicine 09/17/18 Joshua Camacho [address] [place], [place] 894911 Specialty Doormaker Cardiology 09/19/18 Edith Taylor MD [address] [place], [place] 4621795 Specialty Doormaker Gastroenterology 09/19/18 Bonita Naqvi [address] [place] [address] Specialty Doormaker Rheumatology 09/19/18 No, Referral Referring Cardiology 06/26/19 Eric Crooks MD [address] [place], [place] 8405795 Primary Staff Physician Cardiology 02/11/20 Tomasz [place] MD [address] [place], [place] 896661 Cardiology 11/24/21 Brooks Soto MD 4302 [facility] [address] [place] [address] Gastroenterology 02/02/22 Brooks Soto MD 1 [facility] [address] [place] [address] Gastroenterology 02/02/22 Hung Emerson MD [address] [place] [address] Pulmonary and Critical Care Medicine 02/02/22 Cloth Bleaching Range Tender Relationship Specialty Start Date End Date Vargas Mujica PA [address] [place] [address] PCP - General Internal Medicine 09/17/18 Joshua Camacho [address] [place], [place] 844181 (Fax) Specialty Doormaker Cardiology 09/19/18 Edith Taylor MD [address] [place] [address] Specialty Doormaker Gastroenterology 09/19/18 Bonita Naqvi [address] [place], [place] [id number] Specialty Doormaker Rheumatology 09/19/18 No, Referral Referring Cardiology 06/26/19 Eric Crooks MD [address] [place] [address] Primary Staff Physician Cardiology 02/11/20 Tomasz [place] MD 721 E [facility] [place] [id number] Cardiology 11/24/21 Brooks Soto MD 4302 [facility] [address] [place] [address] Gastroenterology 02/02/22 Brooks Soto MD 1 [facility] [address] [place] [address] Gastroenterology 02/02/22 Hung Emerson MD [address] [place] [address] Pulmonary and Critical Care Medicine 02/02/22 Cloth Bleaching Range Tender Relationship Specialty Start Date End Date Vargas Mujica PA [address] [facility] [place] [address] PCP - General Internal Medicine 09/17/18 Joshua Camacho 7[address] [facility] [place] [address] Specialty Doormaker Cardiology 09/19/18 Edith Taylor MD [address] [place] [address] Specialty Doormaker Gastroenterology 09/19/18 Bonita Naqvi [address] [place] [address] Specialty Doormaker Rheumatology 09/19/18 No, Referral Referring Cardiology 06/26/19 Eric Crooks MD [address] [place], [place] 8725595 Primary Staff Physician Cardiology 02/11/20 Tomasz [place] MD [address] [place], [place] [id number] Cardiology 11/24/21 Brooks Soto MD 4302 [facility] [address] [place] [address] Gastroenterology 02/02/22 Brooks Soto MD 1 [facility] [address] [place] [address] Gastroenterology 02/02/22 Hung Emerson MD [address] [place] [address] Pulmonary and Critical Care Medicine 02/02/22 Team Status: Active Member Role Status Dates JUNE Graham Family Provider Active JUNE Graham Primary Care Provider Active Team Status: Inactive Member Role Status Dates JUNE Graham Primary Care Provider, Referr ing Provider Active Osvaldo WATKINS, PA Attending Provider Active Team Status: Inactive Member Role Status Dates JUNE Graham Primary Care Provider Active Dr. Cliff Espinoza DO Attending Provider, Emergency Provide r Active Team Status: Inactive Member Role Status Dates JUNE Graham Primary Care Provider Active Dr. Aftab Sutton MD Emergency Provider Active Cloth Bleaching Range Tender Relationship Specialty Start Date End Date Vargas Mujica PA [address] [facility] [place] [address] PCP - General Internal Medicine 09/17/18 Joshua Camacho 7[address] [facility] [place] [id number] Specialty Doormaker Cardiology 09/19/18 Edith Taylor MD [address] [place], [place] 3627395 Specialty Doormaker Gastroenterology 09/19/18 Bonita Naqvi [address] [place] [address] Specialty Doormaker Rheumatology 09/19/18 No, Referral Referring Cardiology 06/26/19 Eric Crooks MD [address] [place], [place] 3806195 Primary Staff Physician Cardiology 02/11/20 Tomasz [place] MD [address] [place], [place] 065281 Cardiology 11/24/21 Brooks Soto MD 4302 [facility] [address] [place] [address] Gastroenterology 02/02/22 Brooks Soto MD 1 [facility] [address] [place] [address] Gastroenterology 02/02/22 Hung Emerson MD [address] [place] [address] Pulmonary and Critical Care Medicine 02/02/22 Team Status: Inactive Member Role Status Dates JUNE Graham Primary Care Provider Active Dr. Aftab Sutton MD Attending Provider, Emergency Pr ovider Active Team Status: Inactive Member Role Status Dates JUNE Graham Primary Care Provider Active Dr. Garry Conn , DO Emergency Provider Active Cloth Bleaching Range Tender Relationship Specialty Start Date End Date Vargas Mujica PA [address] [place] [address] PCP - General Internal Medicine 09/17/18 Joshua Camacho [address] [place], [place] [address] Specialty Doormaker Cardiology 09/19/18 Edith Taylor MD [address] [place] [address] Specialty Doormaker Gastroenterology 09/19/18 Bonita Naqvi [address] [place], [place] 354[address] Specialty Doormaker Rheumatology 09/19/18 No, Referral Referring Cardiology 06/26/19 Eric Crooks MD [address] [place] [address] Primary Staff Physician Cardiology 02/11/20 Tomasz [place] MD [address] [place], [place] 314231 Cardiology 11/24/21 Brooks Soto MD 4302 [facility] [address] [place] [address] Gastroenterology 02/02/22 Brooks Soto MD 1 [facility] [address] [place] [address] Gastroenterology 02/02/22 Hung Emerson MD [address] [place] [address] Pulmonary and Critical Care Medicine 02/02/22 Cloth Bleaching Range Tender Relationship Specialty Start Date End Date Vargas Mujica PA-C [address] [place] [address] PCP - General 04/30/19 Cloth Bleaching Range Tender Relationship Specialty Start Date End Date Vargas Mujica PA [address] [place], [place] [id number] PCP - General Internal Medicine 09/17/18 Joshua Camacho [address] [place] [address] Specialty Doormaker Cardiology 09/19/18 Edith Taylor MD [address] [place], [place] 1157895 Specialty Doormaker Gastroenterology 09/19/18 Bonita Naqvi [address] [place], [place] 64344691 Specialty Doormaker Rheumatology 09/19/18 No, Referral Referring Cardiology 06/26/19 Eric Crooks MD [address] [place], [place] 4768895 Primary Staff Physician Cardiology 02/11/20 Tomasz [place] MD [address] [place], [place] [id number] Cardiology 11/24/21 Brooks Soto MD 4302 [facility] [address] [place] [address] Gastroenterology 02/02/22 Brooks Soto MD 1 [facility] [address] [place] [address] Gastroenterology 02/02/22 Hung Emerson MD [address] [place] [address] Pulmonary and Critical Care Medicine 02/02/22 Cloth Bleaching Range Tender Relationship Specialty Start Date End Date Vargas Mujica, JUNE-C [address] [place], [place] [id number] PCP - General 04/30/19 Vargas Mujica, JUNE-C [address] [facility] [place] [address] PCP - MMO ACO PCP 02/25/23 Team Status: Inactive Member Role Status Dates JUNE Graham Primary Care Provider Active Dr. Anam Garcia MD Attending Provider, Emergency Provi scott Active Cloth Bleaching Range Tender Relationship Specialty Start Date End Date Vargas Mujica PA [address] [place] [place] [address] PCP - General Internal Medicine 09/17/18 Joshua Camacho [address] [facility] [place], [place] 1[address]21 Specialty Doormaker Cardiology 09/19/18 Edith Taylor MD [address] [place], [place] 4515795 Specialty Doormaker Gastroenterology 09/19/18 Bonita Naqvi [address] [place] [address] Specialty Doormaker Rheumatology 09/19/18 No, Referral Referring Cardiology 06/26/19 Eric Crooks MD [address] [place] [address] Primary Staff Physician Cardiology 02/11/20 Tomasz [place] MD [address] [place] [address] Cardiology 11/24/21 Brooks Soto MD [address] [address] Gastroenterology 02/02/22 Brooks Soto MD [address] [facility] [address] [facility] [address] [place] [address] Gastroenterology 02/02/22 Hung Emerson MD [address] [place] [address] Pulmonary and Critical Care Medicine 02/02/22 Cloth Bleaching Range Tender Relationship Specialty Start Date End Date Vargas Mujica PA [address] [facility] [place] [address] PCP - General Internal Medicine 09/17/18 Joshua Camacho [address] [place], [place] 877811 Specialty Doormaker Cardiology 09/19/18 Edith Taylor MD [address] [place], [place] 9342795 Specialty Doormaker Gastroenterology 09/19/18 Bonita Naqvi [address] [place], [place] 372521 Specialty Doormaker Rheumatology 09/19/18 No, Referral Referring Cardiology 06/26/19 Eric Crooks MD [address] [facility] [place], [place] 2468395 Primary Staff Physician Cardiology 02/11/20 Tomasz [place] MD [address] [place] [address] Cardiology 11/24/21 Brooks Soto MD [address] [facility] 140 [place] [address] Gastroenterology 02/02/22 Brooks Soto MD 1 [facility] [address] [place] [address] Gastroenterology 02/02/22 Hung Emerson MD [address] [place] [address] Pulmonary and Critical Care Medicine 02/02/22 Cloth Bleaching Range Tender Relationship Specialty Start Date End Date Vargas Mujica PA 2020 [address] [facility] [place] [address] PCP - General Internal Medicine 09/17/18 Joshua Camacho [address] [place], [place] 786561 Specialty Doormaker Cardiology 09/19/18 Edith Taylor MD [address] [place] [address] Specialty Doormaker Gastroenterology 09/19/18 Bonita Naqvi [address] [place] [address] Specialty Doormaker Rheumatology 09/19/18 No, Referral Referring Cardiology 06/26/19 Eric Crooks MD [address] [place] [address] Primary Staff Physician Cardiology 02/11/20 Tomasz [place] MD [address] [place], [place] [address] Cardiology 11/24/21 Brooks Soto MD 4302 [facility] [address] [place] [address] Gastroenterology 02/02/22 Brooks Soto MD 1 [facility] [address] [place] [address] Gastroenterology 02/02/22 Hung Emerson MD [address] [place] [address] Pulmonary and Critical Care Medicine 02/02/22 Cloth Bleaching Range Tender Relationship Specialty Start Date End Date Vargas Mujica PA [address] [facility] [address] PCP - General Internal Medicine 09/17/18 Joshua Cmaacho 7[address] E [facility] [place], [place] [id number] Specialty Doormaker Cardiology 09/19/18 Edith Taylor MD [address] [place] [address] Specialty Doormaker Gastroenterology 09/19/18 Bonita Naqvi [address] [place] [address] Specialty Doormaker Rheumatology 09/19/18 No, Referral Referring Cardiology 06/26/19 Eric Crooks MD [address] [place] [address] Primary Staff Physician Cardiology 02/11/20 Tomasz [place] MD [address] [place], [place] 70082691 Cardiology 11/24/21 Brooks Soto MD 4302 [facility] [address] [place] [address] Gastroenterology 02/02/22 Brooks Soto MD 1 [facility] [address] [place] [address] Gastroenterology 02/02/22 Hung Emerson MD [address] [place] [address] Pulmonary and Critical Care Medicine 02/02/22 Cloth Bleaching Range Tender Relationship Specialty Start Date End Date Vargas Mujica PA [address] [place], [place] [id number] PCP - General Internal Medicine 09/17/18 Joshua Camacho [address] [place], [place] 12925691 Specialty Doormaker Cardiology 09/19/18 Edith Taylor MD [address] [place] [address] Specialty Doormaker Gastroenterology 09/19/18 Bonita Naqvi [address] [place], [place] 735791 Specialty Doormaker Rheumatology 09/19/18 No, Referral Referring Cardiology 06/26/19 Eric Crooks MD [address] [place] [address] Primary Staff Physician Cardiology 02/11/20 Tomasz [place] MD [address] [place] [address] Cardiology 11/24/21 Brooks Soto MD [address] [facility] 140 [place] [address] Gastroenterology 02/02/22 Brooks Soto MD 1 [facility] [address] [place] [address] Gastroenterology 02/02/22 Hung Emerson MD [address] [place] [address] Pulmonary and Critical Care Medicine 02/02/22 Cloth Bleaching Range Tender Relationship Specialty Start Date End Date Vargas Mujica PA [address] [facility] [place] [address] PCP - General Internal Medicine 09/17/18 Joshua Camacho [address] [place] [address] Specialty Doormaker Cardiology 09/19/18 Edith Taylor MD [address] [place], [place] 3781895 Specialty Doormaker Gastroenterology 09/19/18 Bonita Naqvi [address] [place] [address] Specialty Doormaker Rheumatology 09/19/18 No, Referral Referring Cardiology 06/26/19 Eric Crooks MD [address] [place], [place] 6504695 Primary Staff Physician Cardiology 02/11/20 Tomasz [place] MD [address] [place], [place] 780541 Cardiology 11/24/21 Brooks Soto MD [address] [place] [address] Gastroenterology 02/02/22 Brooks Soto MD 1 [facility] [address] [place] [address] Gastroenterology 02/02/22 Hung Emerson MD [address] [place] [address] Pulmonary and Critical Care Medicine 02/02/22 Cloth Bleaching Range Tender Relationship Specialty Start Date End Date Vargas Mujica PA [address] [facility] [address] PCP - General Internal Medicine 09/17/18 Joshua Camacho [address] [place] [address] Specialty Doormaker Cardiology 09/19/18 Edith Taylor MD [address] [place], [place] 7635695 Specialty Doormaker Gastroenterology 09/19/18 Bonita Naqvi [address] [place], [place] 16439691 Specialty Doormaker Rheumatology 09/19/18 No, Referral Referring Cardiology 06/26/19 Eric Crooks MD [address] [place], [place] 4839895 Primary Staff Physician Cardiology 02/11/20 Cloth Bleaching Range Tender Relationship Specialty Start Date End Date Vargas Mujica PA [address] [place] [address] PCP - General Internal Medicine 09/17/18 Joshua Camacho [address] [facility] [place], [place] 316[address] Specialty Doormaker Cardiology 09/19/18 Edith Taylor MD [address] [place], [place] 5773795 Specialty Doormaker Gastroenterology 09/19/18 Bonita Naqvi [address] [place], [place] 445991 Specialty Doormaker Rheumatology 09/19/18 No, Referral Referring Cardiology 06/26/19 Eric Crooks MD [address] [place], [place] 4938895 Primary Staff Physician Cardiology 02/11/20 Tomasz [place] MD 721 E [facility] [address] Cardiology 11/24/21 Brooks Soto MD [address] [facility] [address] [place] [address] Gastroenterology 02/02/22 Brooks Soto MD 1 [facility] [address] [place] [address] Gastroenterology 02/02/22 Hung Emerson MD [address] [place] [address] Pulmonary and Critical Care Medicine 02/02/22 Cloth Bleaching Range Tender Relationship Specialty Start Date End Date Vargas Mujica PA [address] [place] [address] PCP - General Internal Medicine 09/17/18 Joshua Camacho [address] [facility] [place] [address] Specialty Doormaker Cardiology 09/19/18 Edith Taylor MD [address] [place], [place] 8941595 Specialty Doormaker Gastroenterology 09/19/18 Bonita Naqvi [address] [place] [address] Specialty Doormaker Rheumatology 09/19/18 No, Referral Referring Cardiology 06/26/19 Eric Crooks MD [address] [place], [place] 8093395 Primary Staff Physician Cardiology 02/11/20 Tomasz [place] MD 7[address] [facility] [place] [address] Cardiology 11/24/21 Boroks Soto MD [address] [facility] 140 [place] [address] Gastroenterology 02/02/22 Brooks Stoo MD 1 [facility] [address] [place] [address] Gastroenterology 02/02/22 Hung Emerson MD [address] [address] Pulmonary and Critical Care Medicine 02/02/22 Cloth Bleaching Range Tender Relationship Specialty Start Date End Date Vargas Mujica PA-C [address] [place] [address] PCP - General 04/30/19 Vargas Mujica PA-C [address] [place] [address] PCP - MMO ACO PCP 02/25/23 Cloth Bleaching Range Tender Relationship Specialty Start Date End Date Vargas Mujica PA-C [address] [place] [address] PCP - General 04/30/19 Vargas Mujica PA-C [address] [place] [address] PCP - MMO ACO PCP 02/25/23 Cloth Bleaching Range Tender Relationship Specialty Start Date End Date Vargas Mujica PA-C [address] [place] [address] PCP - General 04/30/19 Vargas Mujica PA-C [address] [place] [address] PCP - MMO ACO PCP 02/25/23 Cloth Bleaching Range Tender Relationship Specialty Start Date End Date Vargas Mujica PA-C [address] [place] [address] PCP - General 04/30/19 Vargas Mujica PA-C [address] [place] [address] PCP - MMO ACO PCP 02/25/23 Cloth Bleaching Range Tender Relationship Specialty Start Date End Date Vargas Mujica PA [address] [place] [address] PCP - General Internal Medicine 09/17/18 Joshua Camacho MD [address] [place], [place] [id number] Specialty Doormaker Cardiology 09/19/18 Edith Taylor MD [address] [place], [place] 1287095 Specialty Doormaker Gastroenterology 09/19/18 Bonita Naqvi [address] [place], [place] 01443691 Specialty Doormaker Rheumatology 09/19/18 No, Referral Referring Cardiology 06/26/19 Eric Crooks MD [address] [place], [place] 9059495 Primary Staff Physician Cardiology 02/11/20 Tomasz [place] MD [address] [place], [place] 220981 Cardiology 11/24/21 Brooks Soto MD [address] [address] Gastroenterology 02/02/22 Brooks Soto MD [address] [address] Gastroenterology 02/02/22 Hung Emerson MD [address] [place] [address] Pulmonary and Critical Care Medicine 02/02/22 Cloth Bleaching Range Tender Relationship Specialty Start Date End Date Vargas Mujica PA [address] [place] [address] PCP - General Internal Medicine 09/17/18 Joshua Camacho MD [address] [place], [place] [address] Specialty Doormaker Cardiology 09/19/18 Edith Taylor MD [address] [place], [place] 1018495 Specialty Doormaker Gastroenterology 09/19/18 Bonita Naqvi [address] [place], [place] 53885691 Specialty Doormaker Rheumatology 09/19/18 No, Referral Referring Cardiology 06/26/19 Eric Crooks MD [address] [place], [place] 1736695 Primary Staff Physician Cardiology 02/11/20 Tomasz [place] MD [address] [place], [place] 9117[address] Cardiology 11/24/21 Brooks Soto MD [address] [facility] 140 [place] [address] Gastroenterology 02/02/22 Brooks Soto MD [address] [facility] [address] [facility] [address] [place] [address] Gastroenterology 02/02/22 Hung Emerson MD [address] [place] [address] Pulmonary and Critical Care Medicine 02/02/22 Cloth Bleaching Range Tender Relationship Specialty Start Date End Date Vargas Mujica PA [address] [place] [address] PCP - General Internal Medicine 09/17/18 Joshua Camacho MD [address] [place], [place] 729801 Specialty Doormaker Cardiology 09/19/18 Edith Taylor MD [address] [place], [place] 3516395 Specialty Doormaker Gastroenterology 09/19/18 Bonita Naqvi [address] [place] [address] Specialty Doormaker Rheumatology 09/19/18 No, Referral Referring Cardiology 06/26/19 Eric Crooks MD [address] [place] [address] Primary Staff Physician Cardiology 02/11/20 Tomasz [place] MD [address] [place] [address] Cardiology 11/24/21 Brooks Soto MD 4302 [facility] 140 [place] [address] Gastroenterology 02/02/22 Brooks Soto MD 1 [facility] [address] [place] [address] Gastroenterology 02/02/22 Hung Emerson MD [address] [place] [address] Pulmonary and Critical Care Medicine 02/02/22 Cloth Bleaching Range Tender Relationship Specialty Start Date End Date Vargas Mujica PA [address] [place] [address] PCP - General Internal Medicine 09/17/18 Joshua Camacho MD [address] [place], [place] [id number] Specialty Doormaker Cardiology 09/19/18 Edith Taylor MD [address] [place], [place] 2241395 Specialty Doormaker Gastroenterology 09/19/18 Bonita Naqvi [address] [place] [address] Specialty Doormaker Rheumatology 09/19/18 No, Referral Referring Cardiology 06/26/19 Eric Crooks MD [address] [place], [place] 8575095 Primary Staff Physician Cardiology 02/11/20 Tomasz [place] MD [address] [place] [address] Cardiology 11/24/21 Brooks Soto MD [address] [place] [address] Gastroenterology 02/02/22 Brooks Soto MD 1 [facility] [address] [place] [address] Gastroenterology 02/02/22 Hung Emerson MD [address] [place] [address] Pulmonary and Critical Care Medicine 02/02/22 Goals [...] BE BASED ON THE PRIMARY CLINICAL RECORDS. [employer] [facility]. provides no warranty or guarantee of the accuracy or completeness of information in this document.
== END | disposition home or self-care (01) ==
LOC: OPBI 07:20
PROVIDERS: PCP Physician Assistant Medical; Referring Provider Physician Assistant Medical; Visit Provider Physician Assistant Medical
DX: Z12.31 Encounter for screening mammogram for malignant neoplasm of breast (principal)
CPT/HCPCS: 77063; 77067

== ENCOUNTER → 2025-06-14 | Outpatient (CLI) | payer OTHER, SELFPAY ==
--- OUTSIDE RECORDS SUMMARY | 2025-06-14 07:19 | XMS RPT_ITS | CCD ---
Author Organization [facility] CliniSyil Care Team Providers Care Pattern Assembler Name Role Phone EDITH MURRAY Admitting Unavailable EDITH MURRAY Attending Unavailable JOSHUA CAMACHO Referring Unavailable IMCA Primary Care Unavailable Redd, Aasef Unavailable Unavailable Guanako, Vargas Unavailable Unavailable Guanako, Vargas B Unavailable Unavailable Shikary, Abbas K Unavailable Unavailable Basali, Ayman H Unavailable Unavailable Zarrabi, Josselyn Unavailable Unavailable Guanako, Vargas Unavailable Unavailable Safford, Vargas B Unavailable Unavailable Redd, Aasef Unavailable Unavailable Zarrabi, Josselyn Unavailable Unavailable Safford Vargas B Unavailable Unavailable Unavailable Unavailable Unavailable Vargas Wei Primary Care Provider Joshua Camacho (Hist) Unavailable Edith Taylor MD Unavailable Bonita Naqvi Unavailable No, Referral Unavailable Unavailable Eric Crooks MD Unavailable Tomasz Garay MD Unavailable Edith Taylor MD Unavailable Unavailable Brooks Soto MD Unavailable Brooks Soto MD Unavailable Hung Emerson MD Unavailable Vargas Wei Primary Care Provider Joshua Camacho (Hist) Unavailable Edith Taylor MD Unavailable [phone] Vellanki, Bonita L Unavailable No, Referral Unavailable Unavailable Eric Crooks MD Unavailable Claudy COPELAND, Tomasz Meloud Unavailable Brooks Soto MD Unavailable Brooks Soto MD Unavailable Ki COPELAND, Hung Unavailable Vellanki, Bonita L Unavailable Claudy COPELAND, Khaled Meloud Unavailable Unavailable Unavailable Vargas Wei Primary Care Provider Joshua Camacho (Hist) Unavailable Brandon COPELAND, Edith Helton Unavailable [phone] Donya, Bonita L Unavailable No, Referral Unavailable Unavailable Eric Crooks MD Unavailable Claudy COPELAND, Tomasz Gonsalezougarth Unavailable Brooks Soto MD Unavailable Brooks Soto MD Unavailable Hung Emerson MD Unavailable Joshua Camacho Unavailable Guanako, Ms. Vargas Browne Referring Unav ailable Safford, MsIglesia Browne Primary Care Unav ailable Guanako, Ms. Vargas Browne Attending Unav ailable Zarrabi, Dr. Arcos Attending Unavailable Zarrabi, Dr. Arcos Referring Unavailable Safford, Ms. Vargas Browne Primary Care Unav ailable Safford, MsIglesia Browne Referring Unav ailable Safford, Ms. Vargas Browne Primary Care Unav ailable Safford, MsIglesia Browne Attending Unav ailable Grassick, MsIglesia Rios Attending Unavail able Grassick, Ms. Talya Rios Referring Unavail able Safford, Ms. Vargas Browne Primary Care Unav ailable Guanako, Ms. Vargas Browne Attending Unav ailable Safford, Ms. Vargas Browne Referring Unav ailable Guanako, . Vargas Browne Primary Care Unav ailable Safford, Ms. Vargas Browne Referring Unav ailable Safford, Ms. Vargas Browne Primary Care Unav ailable Safford, Ms. Vargas Browne Attending Unav ailable Guanako, Ms. Vargas Browne Attending Unav ailable Safford, Ms. Vargas Browne Referring Unav ailable Safford, Ms. Vargas Browne Primary Care Unav ailable Safford JUNE WATKINS Primary Care Provider JUNE Wei Referring Provider JUNE Emanuel Attending Provider Guanako PA-C, Vargas B Primary Care Provider Guanako, Ms. Vargas Browne Attending Unav ailable Safford, Ms. Vargas Browne Primary Care Unav ailable VARGAS MUJICA PA-C Primary Care Physician [phone] Guanako WATKINS-Vargas Flynn B Unavailable Vargas Wei Primary Care Provider Joshua Camacho Unavailable Brandon COPELAND, Edith Helton Unavailable [phone] Bonita Naqvi Unavailable Valeriy COPELAND, Eric Jules Unavailable [phone] Vargas Wei Primary Care Provider Vargas Wei Primary Care Provider VARGAS MUJICA B Referring Unavailable GUANAKO VARGAS B Primary Care Unavailable GUANAKO VARGAS B Primary Care Unavailable GUANAKO VARGAS B Primary Care Unavailable Guanako PA-C, Vargas B Primary Care Provider Guanako WATKINS-CVargas B Unavailable Joshua Camacho MD Unavailable [phone] JALEEL, JOHANNY E Attending Unavailable [place], [facility] Unavaila ble SELF Referring Unavailable Guanako PA, [facility] Unavailabl e Guanako PA, Vargas Referring Unavailabl e Negro Shipleyril Attending Unavailable Safford PA, [facility] Unavailabl e Safford PA, Vargas Referring Unavailabl e Violetta, [place] Attending Unavailable Sanam Lindsay Attending Unavailable Guanako PA, [facility] Unavailabl e Guanako PA, [facility] Unavailabl e Sanam Lindsay Attending Unavailable Guanako PA, [facility] Unavailabl e Sanam Lindsay Attending Unavailable Guanako PA, [facility] Unavailabl e Safford PA, [place] Referring Unavailabl e Essence Huia Attending Unavailable Guanako PA, [facility] Unavailabl e Sanam Lindsay Attending Unavailable Guanako PA, [facility] Unavailabl e Violetta, [place] Attending Unavailable JALEEL, JOHANNY Referring Unavailable JALEEL, JOHANNY Consulting Unavailable Guanako PA, [facility] Unavailabl e JALEEL, JOHANNY Referring Unavailable JALEEL, JOHANNY Attending Unavailable Safford PA, Vargas Attending Unavailabl e Guanako PA, [facility] Unavailabl e Safford PA, [place] Referring Unavailabl e Guanako PA, [facility] Unavailabl e lJ June Referring Unavailable Jl June Attending Unavailable Safford PA, [facility] Unavailabl e Sallisaw, Lali Referring Unavailable Sallisaw, Lali Attending Unavailable Guanako PA, [facility] Unavailabl e Anam Garcia Attending Unavailable Guanako PA, [facility] Unavailabl e Garry Conn Attending Unavailable Guanako PA, [facility] Unavailabl e Guanako PA, Vargas Referring Unavailabl e Safford PA, Vargas Attending Unavailabl e Guanako PA, Vargas Attending Unavailabl e Gaunako PA, [facility] Unavailabl e Guanako PA, Vargas Referring Unavailabl e Guanako PA, [facility] Unavailabl e Violetta, [place] Attending Unavailable Fritz, Lail Referring Unavailable Safford PA, Vargas Primary Care UnavailSanam Arreola Attending Unavailable VARGAS MUJICA Primary Care UnavailDEE DEE Holguin Attending Unavailable Vargas Mujica PA-C Primary Care Provider VARGAS MUJICA Attending Unavailable VARGAS MUJICA Primary Care Unavailable VARGAS MUJICA Attending Unavailable VARGAS MUJICA Primary Care Unavailable VARGAS MUJIAC Attending Unavailable VARGAS MUJICA Primary Care Unavailable Allergies Allergy Classification Reported Allergen(s) Allergy Type Date of Onset Reaction(s) Facility Acetaminophen / HYDROcodone (1 source) Acetaminophen / HYDROcodone; Translations: [Vicodin TABS] Drug Allergy Rash, Itching [facility] Work Phone: Aminoketones (1 source) buPROPion; Translations: [Wellbutrin] Drug Allergy Rash [facility] Work Phone: Meclizine (1 source) Meclizine; Translations: [meclizine] Drug Allergy Other [facility] Work Phone: Nadolol (1 source) Nadolol; Translations: [nadolol] Drug Allergy Chest Pain [facility] Work Phone: Opioid Agonists Start: 04-20-2022 Telephone encounter Tata umanzor MD Work Phone: [facility] Comment on above: Results Start: 04-19-2022 End: 04-19-2022 Subsequent hospital visit by physician Ct Prep [place] RADIO CT SCAN C BATH Comment on above: Arrived S/P laparoscopic sle mariajose gastrectomy [Z98.84] Start: 04-19-2022 End: 04-19-2022 Patient encounter procedure Marjan Eddy APRN.CNP Work Phone: [facility] Comment on above: S/P laparoscopic sle mariajose gastrectomy (Primary Dx); Right sided abdominal pain; Hepatic fibrosis; History of DVT (deep vein thrombosis) Start: 04-18-2022 Telephone encounter Taat umanzor MD Work Phone: [facility] Comment on above: Patient Update Start: 04-14-2022 Telephone encounter Marjan rangel RADAR TECHNICIAN.DELPHI DEVELOPER Work Phone: [facility] Comment on above: Surgical Followup Start: 04-12-2022 Telephone encounter Tata umanzor MD Work Phone: [facility] Comment on above: Patient Update (Inpa tient rounding) Start: 04-06-2022 Telephone encounter Tata umanzor MD Work Phone: [facility] Comment on above: Patient Update Start: 04-05-2022 Telephone encounter Marjan rangel RADAR TECHNICIAN.DELPHI DEVELOPER Work Phone: [facility] Comment on above: Results Start: 03-31-2022 AUDIT Vargas sun Work Phone: [facility] Work Phone: Start: 03-31-2022 Telephone encounter Tata umanzor MD Work Phone: [facility] Comment on above: Opened In Error Start: 03-31-2022 End: 03-31-2022 ambulatory Marjan Eddy RADAR TECHNICIAN.DELPHI DEVELOPER Work Phone: [facility] Comment on above: Class 3 severe obesi ty due to excess calories with serious comorbidity and body mass index (BMI) of 60.0 to 69.9 in adult (HCC) (Primary Dx); History of DVT (deep vein thrombosis); Elevated liver enzymes Start: 03-31-2022 End: 03-31-2022 Telemedicine consultation with patient Marjan Eddy RADAR TECHNICIAN.DELPHI DEVELOPER Work Phone: [facility] Start: 03-30-2022 ambulatory Ms. Vargas Edenenhall Facility:[id number] Start: 03-30-2022 Encounter for other preprocedural examination Ms. Vargas Browne Guanako Facility:[id number] Start: 03-29-2022 ambulatory Marjan fuller RADAR TECHNICIAN.DELPHI DEVELOPER Work Phone: [facility] Comment on above: Vitamins Start: 03-24-2022 End: 03-24-2022 ambulatory Tata Chakraborty MD Work Phone: [facility] Comment on above: Class 3 severe obesi ty due to excess calories with serious comorbidity and body mass index (BMI) of 60.0 to 69.9 in adult (HCC) (Primary Dx); History of DVT (deep vein thrombosis); AAT (rjzws-3-gbhqnfkfzob) deficiency (HCC); BRISEYDA (obstructive sleep apnea); NAFLD (nonalcoholic fatty liver disease); Heartburn Start: 03-24-2022 End: 03-24-2022 Telemedicine consultation with patient Tata Chakraborty MD Work Phone: [facility] Start: 03-23-2022 AUDIT Vargas sun Work Phone: [facility] Work Phone: Start: 03-21-2022 ambulatory Marjan fuller RADAR TECHNICIAN.DELPHI DEVELOPER Work Phone: [facility] Comment on above: Pre surgical Start: 03-16-2022 AUDIT Vargas sun Work Phone: [facility] Work Phone: Start: 03-16-2022 End: 03-16-[address] Work Phone: [facility] Comment on above: Class 3 severe obesi ty due to excess calories with serious comorbidity and body mass index (BMI) of 60.0 to 69.9 in adult (HCC) (Primary Dx) Start: 03-16-2022 End: 03-16-2022 Telemedicine consultation with patient Amirah Flores RD Work Phone: [facility] Start: 03-15-2022 Telephone encounter Tata umanzor MD Work Phone: [facility] Comment on above: Appointment Start: 03-02-2022 Telephone encounter Nasrin rojas RADAR TECHNICIAN.DELPHI DEVELOPER Work Phone: Pulmonary Medicine Comment on above: Opened In Error Start: 03-01-2022 Orders Only Tata Chakraborty MD Work Phone: [facility] Comment on above: Morbid obesity (HCC) (Primary Dx) Start: 02-15-2022 End: 02-15-2022 ambulatory Marjan Readjonny RADAR TECHNICIAN.DELPHI DEVELOPER Work Phone: [facility] Comment on above: Class 3 severe obesi ty due to excess calories with serious comorbidity and body mass index (BMI) of 60.0 to 69.9 in adult (HCC) (Primary Dx); Elevated liver enzymes; COVID-19 long hauler; BRISEYDA (obstructive sleep apnea) Dietary counseling a nd surveillance Start: 02-15-2022 End: 02-15-2022 Telemedicine consultation with patient Marjan Readjonny RADAR TECHNICIAN.DELPHI DEVELOPER Work Phone: [facility] Start: 02-10-2022 Telephone encounter Hung buck MD Work Phone: Pulmonary Medicine Comment on above: FYI-No Action Needed Start: 02-09-2022 Telephone encounter Hung buck MD Work Phone: [facility] Medicine Comment on above: Results Letter Start: 02-03-2022 ambulatory Brooks farnsworth MD Work Phone: [facility] Comment on above: Question regarding L IVER FIBROSIS AND ACTIVITY Start: 02-02-2022 Telephone encounter Tata umanzor MD Work Phone: [facility] Comment on above: Medical Clearance Start: 02-02-2022 End: 02-02-2022 Subsequent hospital visit by physician Ghislaine 2 RADIO ULTRA HWC BATH Comment on above: Fatty liver [K76.0] Start: 02-02-2022 End: 02-02-2022 ambulatory Pulm Bath [facility] Comment on above: Shortness of Breath Start: 02-02-2022 End: 02-02-2022 Patient encounter procedure Pulm Fct Lab Bath [facility] Start: 01-25-2022 AUDIT Vargas sun Work Phone: [facility] Work Phone: Start: 01-18-2022 End: 01-18-2022 ambulatory Marjan Eddy APRN.DELPHI DEVELOPER Work Phone: [facility] Comment on above: Class 3 severe obesi ty due to excess calories with serious comorbidity and body mass index (BMI) of 60.0 to 69.9 in adult (HCC) (Primary Dx); Elevated liver enzymes; COVID-19 long hauler; Hepatomegaly Start: 01-18-2022 End: 01-18-2022 Telemedicine consultation with patient Marjan Eddy APRN.DELPHI DEVELOPER Work Phone: [facility] Start: 01-14-2022 Telephone encounter Hung buck MD Work Phone: Pulmonary Medicine Comment on above: Results Start: 01-13-2022 End: 01-13-2022 Patient encounter procedure Brooks Soto MD Work Phone: [facility] Comment on above: Fatty liver (Primary Dx); Increased liver enzymes; Morbid obesity (HCC) Start: 01-10-2022 Message Vargas sun Work Phone: [facility] Work Phone: Start: 01-04-2022 Result Review Vargas sun Work Phone: [facility] Work Phone: Start: 01-03-2022 End: 01-03-2022 Patient encounter procedure Hung Emerson MD Work Phone: Pulmonary Medicine Comment on above: Dyspnea and respirat ory abnormalities (Primary Dx); Shortness of breath Start: 12-28-2021 ambulatory Ms. Vragas Mujica Facility:[id number] Start: 12-27-2021 Telephone encounter Brooks Soto MD Work Phone: [facility] Comment on above: Appointment Start: 12-27-2021 End: 12-27-2021 ambulatory Amirah Zabalapenny CARMEN Work Phone: [facility] Comment on above: Class 3 severe obesi ty due to excess calories with serious comorbidity and body mass index (BMI) of 60.0 to 69.9 in adult (HCC) (Primary Dx) Start: 12-27-2021 End: 12-27-2021 Telemedicine consultation with patient Amirah Flores RD Work Phone: [facility] Start: 12-24-2021 Telephone encounter Edith Devi MD Work Phone: [facility] Comment on above: possible Hepatitis d iagnosis Start: 12-24-2021 End: 12-24-2021 Patient encounter procedure Marjan Eddy RADAR TECHNICIAN.DELPHI DEVELOPER Work Phone: [facility] Comment on above: Class 3 severe obesi ty due to excess calories with serious comorbidity and body mass index (BMI) of 60.0 to 69.9 in adult (HCC) (Primary Dx); Elevated liver enzymes; Hepatomegaly; V-tach (HCC); COVID-19 long hauler; Gastroesophageal reflux disease without esophagitis Start: 12-10-2021 Refill Tata Chakraborty MD Work Phone: [facility] Comment on above: Refill Request Start: 12-10-2021 Telephone encounter Tata umanzor MD Work Phone: [facility] Comment on above: Received Outside [facility] Records ([facility]) Start: 12-02-2021 Refill Marjan fuller RADAR TECHNICIAN.DELPHI DEVELOPER Work Phone: [facility] Comment on above: Refill Request Start: 12-02-2021 Telephone encounter Marjan rangel RADAR TECHNICIAN.DELPHI DEVELOPER Work Phone: [facility] Comment on above: Radiology US (result s) Start: 12-02-2021 AUDIT Vargas sun Work Phone: [facility] Work Phone: Start: 12-01-2021 Telephone encounter Tata umanzor MD Work Phone: [facility] Comment on above: Appointment Start: 11-30-2021 Admission to [facility] Tomasz Garay MD Work Phone: Cardiology Comment on above: Surgery release Start: 11-30-2021 ambulatory Tomasz Garay MD Work Phone: [facility] Start: 11-29-2021 AUDIT Vargas sun Work Phone: [facility] Work Phone: Start: 11-29-2021 Telephone encounter Tata umanzor MD Work Phone: [facility] Comment on above: Patient Update (Outs austyn lab results) Start: 11-19-2021 End: 11-19-2021 Refill Tata Chakraborty MD Work Phone: [facility] Comment on above: Refill Request Class 3 severe obesi ty due to excess calories with serious comorbidity and body mass index (BMI) of 60.0 to 69.9 in adult (HCC) (Primary Dx); V-tach ([facility]); COVID-19 long hauler; Elevated liver enzymes; Kdflq-0-mjaqlspjzlx deficiency ([facility]); Gastroesophageal reflux disease without esophagitis Medical Clearance Start: 11-15-2021 AUDIT Vargas sun Work Phone: [facility] Work Phone: Start: 11-12-2021 Chart Update Vargas sun Work Phone: [facility] Work Phone: Start: 11-11-2021 Office outpatient vi sit 25 minutes Vargas Mujica Work Phone: [facility] Work Phone: Start: 11-11-2021 ambulatory Ms. Talya Stevens Facility:[id number] Start: 10-18-2021 AUDIT Vargas Edenmary sun Work Phone: [facility] Work Phone: Start: 09-02-2021 AUDIT Vargas Ayon Pratima sun Work Phone: [facility] Work Phone: Start: 08-19-2021 Office outpatient vi sit 15 minutes Vargas Edenenhall Work Phone: [facility] Work Phone: Start: 07-28-2021 FUV, Provider: Vargas Mujica, Status: Pen, Time: 9:00 AM Vargas Edenenhall Work Phone: [facility] Work Phone: Start: 07-28-2021 Office outpatient vi sit 25 minutes Vargas Edenenhall Work Phone: [facility] Work Phone: Start: 07-27-2021 Chart Update Vargas Ayon Pratima sun Work Phone: [facility] Work Phone: Start: 07-02-2021 AUDIT Vargas Ayon Pratima sun Work Phone: [facility] Work Phone: Start: 06-08-2021 Chart Update Vargas Ayon Pratima eppsall Work Phone: [facility] Work Phone: Start: 06-03-2021 AUDIT Vargas Ayon Pratima eppsall Work Phone: [facility] Work Phone: Start: 05-25-2021 Office outpatient vi sit 25 minutes Vargas Mujica Work Phone: [facility] Work Phone: Start: 05-11-2021 AUDIT Vargas sun Work Phone: [facility] Work Phone: Start: 04-12-2021 AUDIT Vargas sun Work Phone: [facility] Work Phone: Start: 12-19-2020 End: 12-19-2020 Subsequent hospital visit by physician Taty [facility] Shaun Work Phone: Radiology Comment on above: Class 3 severe obesi ty with body mass index (BMI) of 50.0 to 59.9 in adult, unspecified obesity type, unspecified whether serious comorbidity present (HCC) [E66.01, Z68.43] Start: 06-10-2020 Patient encounter procedure Vargaspili Morenoall [facility] Work Phone: Start: 04-20-2020 Patient encounter procedure Vargaspili Mujica [facility] Work Phone: Start: 01-14-2020 Patient encounter procedure Vargas Mujica [facility] Work Phone: Start: 12-23-2019 Patient encounter procedure Vargas Mujica [facility] Work Phone: Start: 12-16-2019 Patient encounter procedure Vargas Mujica [facility] Work Phone: Start: 10-03-2019 Patient encounter procedure Vargas Mujica [facility] Work Phone: Start: 09-18-2018 End: 09-20-2018 Evaluation and management of inpatient EDITH MURRAY Facility:[facility] Patient encounter status Vargas Mujica Work Phone: [facility] Work Phone: Preoperative state Vargas Gabo pinonicole Work Phone: [facility] Work Phone: Procedures Date Procedure Procedure Detail Performing Clinician Start: 06-03-2025 Microscopic observation [Identifier] in Cervix by Cyto stain Vargas Mujica PA-C Work Phone: Start: 06-07-2024 Radex foot complete minimum 3 views Kamilla Coon RADAR TECHNICIAN.DELPHI DEVELOPER Work Phone: Start: 04-24-2024 Radiologic exam chest 2 views Ami Delgado RADAR TECHNICIAN.DELPHI DEVELOPER Work Phone: Start: 10-19-2023 CT of head without contrast Start: 09-25-2023 C-reactive protein VARGAS GUANAKO Start: 09-25-2023 CBC W Auto Differential panel - Blood VARGAS MORENOALL Start: 09-25-2023 Comprehensive metabolic 2000 panel - Serum or Plasma VARGAS EDENENHALL Start: 09-25-2023 Cyanocobalamin vitamin b-12 VARGAS ROSALES PEPE Start: 09-25-2023 Ferritin [Mass/volume] in Serum or Plasma VARGAS EDENENHALL Start: 09-25-2023 Hemoglobin A1c/Hemoglobin.total in Blood VARGASPILI EDENGUANAKO Start: 09-25-2023 IRON AND TIBC VARGAS EDENENHALL Start: 09-25-2023 Lipid panel VARGAS MORENOALL Start: 09-25-2023 Magnesium [Mass/volume] in Serum or Plasma VARGAS EDENENHALL Start: 09-25-2023 SEDIMENTATION RATE, AUTOMATED VARGAS SCHMITTL Start: 09-25-2023 THYROXINE, FREE VARGAS MUJICA Start: 09-25-2023 VITAMIN D 25-HYDROXY,TOTAL VARGAS CASTILLO Start: 09-25-2023 Lipid 1996 panel - Serum or Plasma Scott Mujica PA-C Work Phone: Start: 09-25-2023 Thyrotropin [Units/volume] in Serum or Plasma Vargas WATKINS-Rina Work Phone: Start: 02-09-2023 Urnls dip stick/tablet rgnt auto w/o microscopy Vargas WATKINS-Rina Work Phone: Start: 02-09-2023 Thyrotropin [Units/volume] in Serum or Plasma Vargas WATKINS-C Work Phone: Start: 01-05-2023 Plain chest X-ray JUNE WATKINS Work Phone: Start: 11-15-2022 Plain chest X-ray JUNE WATKINS Work Phone: Start: 11-08-2022 Radex foot complete minimum 3 views Donnie WATKINS Work Phone: Start: 09-22-2022 Radiologic exam chest 2 views Ami Delgado RADAR TECHNICIAN.DELPHI DEVELOPER Work Phone: Start: 08-17-2022 Plain chest X-ray Start: 04-19-2022 Ct abdomen & pelvis w/contrast material Marjan Eddy RADAR TECHNICIAN.DELPHI DEVELOPER Work Phone: Start: 02-02-2022 Us abdominal real time w/image documentation Brooks Soto MD Work Phone: Start: 02-02-2022 Brncdilat rspse spmtry pre&post-brncdilat admn Hung Emerson MD Work Phone: Start: 12-10-2021 Esophagogastrostomy, antesternal or antethoracic Vargas Mujica Work Phone: Start: 12-19-2020 Radiologic exam chest 2 views Marjan rangel RADAR TECHNICIAN.DELPHI DEVELOPER Work Phone: section Meagan falcon Cholecystectomy Meagan [...] of 2) Zoster Vaccines (1 of 2) [facility] Start: 09-25-2028 Lipid panel Lipid Panel [facility] Start: 06-03-2028 Screening for malignant neoplasm of cervix [facility] Start: 09-25-2026 Diabetes mellitus screening Diabetes Screening [facility] Start: 06-02-2026 HPV TESTING HPV TESTING [facility] Start: 06-02-2026 PAP TESTING PAP TESTING [facility] Start: 06-02-2026 Screening for malignant neoplasm of cervix [facility] Start: 09-15-2025 End: 09-15-2025 Patient encounter procedure 09/15/2025 3:20 PM EST Office Visit Cardiology [address] [place] [address] Tomasz Garay MD [address] [facility], [address] [place], [place] [id number] bradycardia Cardiology Comment on above: bradycardia Start: 06-26-2025 End: 06-26-2025 Patient encounter procedure 06/26/2025 9:00 AM EDT Office Visit [facility] Internal Medicine [address] [place] [id number] Vargas Mujica PA-C [address] [place], [place] [id number] [facility] Start: 06-10-2025 End: 06-10-2026 Dehydroepiandrosterone (DHEA) [Mass/volume] in Serum or Plasma DHEA level Lab Routine Anxiety Fatigue, unspecified type Expected: 06/10/2025 (Approximate), Expires: 06/10/2026 [facility] Work Phone: Comment on above: Expected: 06/10/2025 (Approximate), Expi res: 06/10/2026 Start: 06-10-2025 End: 06-10-2026 Estrogen [Mass/volume] in Serum or Plasma Estrogens, Total Lab Routine Anxiety Fatigue, unspecified type Expected: 06/10/2025 (Approximate), Expires: 06/10/2026 [facility] Service Area Work Phone: Comment on above: Expected: 06/10/2025 (Approximate), Expi res: 06/10/2026 Start: 06-10-2025 End: 06-10-2026 Follitropin [Units/volume] in Serum or Plasma FSH Lab Routine Anxiety Fatigue, unspecified type Expected: 06/10/2025 (Approximate), Expires: 06/10/2026 [facility] Work Phone: Comment on above: Expected: 06/10/2025 (Approximate), Expi res: 06/10/2026 Start: 06-10-2025 End: 06-10-2026 Lutropin [Units/volume] in Serum or Plasma Luteinizing hormone Lab Routine Anxiety Fatigue, unspecified type Expected: 06/10/2025 (Approximate), Expires: 06/10/2026 [facility] Work Phone: Comment on above: Expected: 06/10/2025 (Approximate), Expi res: 06/10/2026 Start: 06-10-2025 End: 06-10-2026 Progesterone [Mass/volume] in Serum or Plasma Progesterone Lab Routine Anxiety Fatigue, unspecified type Expected: 06/10/2025 (Approximate), Expires: 06/10/2026 [facility] Work Phone: Comment on above: Expected: 06/10/2025 (Approximate), Expi res: 06/10/2026 Start: 06-10-2025 End: 06-10-2026 Testosterone, total and free Testosterone, total and free Lab Routine Anxiety Fatigue, unspecified type Expected: 06/10/2025 (Approximate), Expires: 06/10/2026 [facility] Work Phone: Comment on above: Expected: 06/10/2025 (Approximate), Expi res: 06/10/2026 Start: 04-28-2025 COVID-19 Vaccine ( season) COVID-19 Vaccine ( season) [facility] Start: 04-28-2025 Influenza vaccination [facility] Start: 01-28-2025 End: 01-28-2025 Patient encounter procedure 01/28/2025 2:30 PM EDT Office Visit [facility] [address] [place] [address] Johanny Marmolejo, RADAR TECHNICIAN.DELPHI DEVELOPER [address] [address] sooner f/u than pritesh dunn per [facility] Comment on above: sooner f/u than pritesh dunn per [facility] Start: 01-08-2025 End: 07-11-2025 25-hydroxyvitamin D3 [Mass/volume] in Serum or Plasma Vitamin D 25-Hydroxy,Total (for eval of Vitamin D levels) Lab Routine Vitamin D deficiency Expected: 01/08/2025 (Approximate), Expires: 07/11/2025 [facility] Work Phone: Comment on above: Expected: 01/08/2025 (Approximate), Expi res: 07/11/2025 Start: 01-08-2025 End: 07-11-2025 CBC W Auto Differential panel - Blood CBC and Auto Differential Lab Routine Polyarthralgia Expected: 01/08/2025 (Approximate), Expires: 07/11/2025 [facility] Service Area Work Phone: Comment on above: Expected: 01/08/2025 (Approximate), Expi res: 07/11/2025 Start: 01-08-2025 End: 07-11-2025 Cobalamin (Vitamin B12) [Mass/volume] in Serum or Plasma Vitamin B12 Lab Routine Bariatric surgery status Expected: 01/08/2025 (Approximate), Expires: 07/11/2025 [facility] Work Phone: Comment on above: Expected: 01/08/2025 (Approximate), Expi res: 07/11/2025 Start: 01-08-2025 End: 07-11-2025 Comprehensive metabolic 2000 panel - Serum or Plasma Comprehensive Metabolic Panel Lab Routine Fatty liver disease, nonalcoholic Expected: 01/08/2025 (Approximate), Expires: 07/11/2025 [facility] Work Phone: Comment on above: Expected: 01/08/2025 (Approximate), Expi res: 07/11/2025 Start: 01-08-2025 End: 07-11-2025 Ferritin [Mass/volume] in Serum or Plasma Ferritin Lab Routine Fatty liver disease, nonalcoholic Expected: 01/08/2025 (Approximate), Expires: 07/11/2025 [facility] Work Phone: Comment on above: Expected: 01/08/2025 (Approximate), Expi res: 07/11/2025 Start: 01-08-2025 End: 07-11-2025 Iron and Iron binding capacity panel - Serum or Plasma Iron and TIBC Lab Routine Fatty liver disease, nonalcoholic Expected: 01/08/2025 (Approximate), Expires: 07/11/2025 [facility] Work Phone: Comment on above: Expected: 01/08/2025 (Approximate), Expi res: 07/11/2025 Start: 01-08-2025 End: 07-11-2025 Lipid 1996 panel - Serum or Plasma Lipid Panel Lab Routine 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 Class 3 severe obesity due to excess calories with serious comorbidity and body mass index (BMI) of 50.0 to 59.9 in adult Fatty liver disease, nonalcoholic Expected: 01/08/2025 (Approximate), Expires: 07/11/2025 [facility] Work Phone: Comment on above: Expected: 01/08/2025 (Approximate), Expi res: 07/11/2025 Start: 01-08-2025 End: 07-11-2025 Magnesium [Mass/volume] in Serum or Plasma Magnesium Lab Routine Polyarthralgia Expected: 01/08/2025 (Approximate), Expires: 07/11/2025 [facility] Work Phone: Comment on above: Expected: 01/08/2025 (Approximate), Expi res: 07/11/2025 Start: 01-08-2025 End: 07-11-2025 Opiate/Opioid/Benzo Prescription Compliance Opiate/Opioid/Benzo Prescription Compliance Lab Routine Anxiety Medication management Expected: 01/08/2025 (Approximate), Expires: 07/11/2025 [facility] Work Phone: Comment on above: Expected: 01/08/2025 (Approximate), Expi res: 07/11/2025 Start: 01-08-2025 End: 07-11-2025 Thyrotropin [Units/volume] in Serum or Plasma Thyroid Stimulating Hormone Lab Routine 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 Expected: 01/08/2025 (Approximate), Expires: 07/11/2025 [facility] Work Phone: Comment on above: Expected: 01/08/2025 (Approximate), Expi res: 07/11/2025 Start: 01-08-2025 End: 07-11-2025 Thyroxine (T4) free [Mass/volume] in Serum or Plasma Thyroxine, Free Lab Routine 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 Expected: 01/08/2025 (Approximate), Expires: 07/11/2025 [facility] Work Phone: Comment on above: Expected: 01/08/2025 (Approximate), Expi res: 07/11/2025 Start: 12-28-2024 Diabetes mellitus screening Diabetes Screening [facility] Start: 12-24-2024 End: 12-24-2024 Patient encounter procedure 12/24/2024 8:00 AM EDT Office Visit [facility] Internal Medicine [address] [place] [id number] Vargas Mujica PA-C [address] [place] [address] [facility] Start: 11-06-2024 End: 11-06-2025 25-hydroxyvitamin D3 [Mass/volume] in Serum or Plasma Vitamin D 25-Hydroxy,Total (for eval of Vitamin D levels) Lab Routine Vitamin D deficiency Expected: 11/06/2024 (Approximate), Expires: 11/06/2025 [facility] Work Phone: Comment on above: Expected: 11/06/2024 (Approximate), Expi res: 11/06/2025 Start: 11-06-2024 End: 11-06-2025 CBC W Auto Differential panel - Blood CBC and Auto Differential Lab Routine Glucose intolerance (impaired glucose tolerance) Expected: 11/06/2024 (Approximate), Expires: 11/06/2025 [facility] Service Area Work Phone: Comment on above: Expected: 11/06/2024 (Approximate), Expi res: 11/06/2025 Start: 11-06-2024 End: 11-06-2025 Cobalamin (Vitamin B12) [Mass/volume] in Serum or Plasma Vitamin B12 Lab Routine Bariatric surgery status Expected: 11/06/2024 (Approximate), Expires: 11/06/2025 [facility] Work Phone: Comment on above: Expected: 11/06/2024 (Approximate), Expi res: 11/06/2025 Start: 11-06-2024 End: 11-06-2025 Comprehensive metabolic 2000 panel - Serum or Plasma Comprehensive Metabolic Panel Lab Routine Glucose intolerance (impaired glucose tolerance) Expected: 11/06/2024 (Approximate), Expires: 11/06/2025 [facility] Work Phone: Comment on above: Expected: 11/06/2024 (Approximate), Expi res: 11/06/2025 Start: 11-06-2024 End: 11-06-2025 Ferritin [Mass/volume] in Serum or Plasma Ferritin Lab Routine Elevated ferritin level Expected: 11/06/2024 (Approximate), Expires: 11/06/2025 [facility] Work Phone: Comment on above: Expected: 11/06/2024 (Approximate), Expi res: 11/06/2025 Start: 11-06-2024 End: 11-06-2025 Iron and Iron binding capacity panel - Serum or Plasma Iron and TIBC Lab Routine Elevated ferritin level Expected: 11/06/2024 (Approximate), Expires: 11/06/2025 [facility] Work Phone: Comment on above: Expected: 11/06/2024 (Approximate), Expi res: 11/06/2025 Start: 11-06-2024 End: 11-06-2025 Lipid 1996 panel - Serum or Plasma Lipid Panel Lab Routine Glucose intolerance (impaired glucose tolerance) Shahzad's disease Expected: 11/06/2024 (Approximate), Expires: 11/06/2025 [facility] Work Phone: Comment on above: Expected: 11/06/2024 (Approximate), Expi res: 11/06/2025 Start: 11-06-2024 End: 11-06-2025 Magnesium [Mass/volume] in Serum or Plasma Magnesium Lab Routine Bariatric surgery status Expected: 11/06/2024 (Approximate), Expires: 11/06/2025 [facility] Work Phone: Comment on above: Expected: 11/06/2024 (Approximate), Expi res: 11/06/2025 Start: 11-06-2024 End: 11-06-2025 Opiate/Opioid/Benzo Prescription Compliance Opiate/Opioid/Benzo Prescription Compliance Lab Routine Medication management Expected: 11/06/2024 (Approximate), Expires: 11/06/2025 [facility] Work Phone: Comment on above: Expected: 11/06/2024 (Approximate), Expi res: 11/06/2025 Start: 11-06-2024 End: 11-06-2025 Thyrotropin [Units/volume] in Serum or Plasma Thyroid Stimulating Hormone Lab Routine Shahzad's disease Expected: 11/06/2024 (Approximate), Expires: 11/06/2025 [facility] Work Phone: Comment on above: Expected: 11/06/2024 (Approximate), Expi res: 11/06/2025 Start: 11-06-2024 End: 11-06-2025 Thyroxine (T4) free [Mass/volume] in Serum or Plasma Thyroxine, Free Lab Routine Shahzad's disease Expected: 11/06/2024 (Approximate), Expires: 11/06/2025 [facility] Work Phone: Comment on above: Expected: 11/06/2024 (Approximate), Expi res: 11/06/2025 Start: 09-25-2024 Thyroid stimulating hormone measurement TSH Level [facility] Start: 07-11-2024 End: 07-11-2025 FERNANDO + SHAHRIAR Panel [facility] Work Phone: Comment on above: Expected: 07/11/2024 (Approximate), Expi res: 07/11/2025 Start: 07-11-2024 End: 07-11-2025 Cyclic citrullinated peptide IgG Ab [Units/volume] in Serum or Plasma [facility] Work Phone: Comment on above: Expected: 07/11/2024 (Approximate), Expi res: 07/11/2025 Start: 07-11-2024 End: 07-11-2025 XR Cervical spine 2 or 3 Views [facility] Work Phone: Comment on above: Expected: 07/11/2024, Expires: Once for 1 Occurrenc es starting 07/11/2024 until 07/11/2024 Start: 07-11-2024 End: 07-11-2025 XR Lumbar spine 2 or 3 Views [facility] Work Phone: Comment on above: Expected: 07/11/2024, Expires: Once for 1 Occurrenc es starting 07/11/2024 until 07/11/2024 Start: 04-28-2024 Covid-19 Vaccine ( season) Covid-19 Vaccine ( season) [facility] Start: 04-28-2024 Covid-19 Vaccine ( season) Covid-19 Vaccine ( season) [facility] Start: 04-28-2024 Influenza vaccination [facility] Start: 04-24-2024 End: 05-08-2024 COVID & INFLUENZA A/B & RSV PCR, ROUTINE COVID & INFLUENZA A/B & RSV PCR, ROUTINE Microbiology Routine URI, acute Expected: 04/24/2024, Expires: 05/08/2024 [facility] Work Phone: Comment on above: Expected: 04/24/2024, Expires: Start: 02-28-2024 End: 02-27-2025 25-hydroxyvitamin D3 [Mass/volume] in Serum or Plasma Vitamin D 25-Hydroxy,Total (for eval of Vitamin D levels) Lab Routine Vitamin D deficiency Expected: 02/28/2024 (Approximate), Expires: 02/27/2025 [facility] Work Phone: Comment on above: Expected: 02/28/2024 (Approximate), Expi res: 02/27/2025 Start: 02-28-2024 End: 02-27-2025 C reactive protein [Mass/volume] in Serum or Plasma C-reactive protein Lab Routine Class 3 severe obesity due to excess calories with serious comorbidity and body mass index (BMI) of 50.0 to 59.9 in adult (Multi) Polyarthralgia Expected: 02/28/2024 (Approximate), Expires: 02/27/2025 [facility] Work Phone: Comment on above: Expected: 02/28/2024 (Approximate), Expi res: 02/27/2025 Start: 02-28-2024 End: 02-27-2025 CBC W Auto Differential panel - Blood CBC and Auto Differential Lab Routine Glucose intolerance (impaired glucose tolerance) Expected: 02/28/2024 (Approximate), Expires: 02/27/2025 [facility] Service Area Work Phone: Comment on above: Expected: 02/28/2024 (Approximate), Expi res: 02/27/2025 Start: 02-28-2024 End: 02-27-2025 Cobalamin (Vitamin B12) [Mass/volume] in Serum or Plasma Vitamin B12 Lab Routine Glucose intolerance (impaired glucose tolerance) Expected: 02/28/2024 (Approximate), Expires: 02/27/2025 [facility] Work Phone: Comment on above: Expected: 02/28/2024 (Approximate), Expi res: 02/27/2025 Start: 02-28-2024 End: 02-27-2025 Comprehensive metabolic 2000 panel - Serum or Plasma Comprehensive Metabolic Panel Lab Routine Glucose intolerance (impaired glucose tolerance) Expected: 02/28/2024 (Approximate), Expires: 02/27/2025 [facility] Work Phone: Comment on above: Expected: 02/28/2024 (Approximate), Expi res: 02/27/2025 Start: 02-28-2024 End: 02-27-2025 Cortisol [Mass/volume] in Saliva (oral fluid) Salivary Cortisol Lab Routine Class 3 severe obesity due to excess calories with serious comorbidity and body mass index (BMI) of 50.0 to 59.9 in adult (Multi) Polyarthralgia Expected: 02/28/2024 (Approximate), Expires: 02/27/2025 [facility] Work Phone: Comment on above: Expected: 02/28/2024 (Approximate), Expi res: 02/27/2025 Start: 02-28-2024 End: 02-27-2025 Cortisol Free [Mass/volume] in Serum or Plasma Cortisol, Free Lab Routine Class 3 severe obesity due to excess calories with serious comorbidity and body mass index (BMI) of 50.0 to 59.9 in adult (Multi) Polyarthralgia Expected: 02/28/2024 (Approximate), Expires: 02/27/2025 [facility] Work Phone: Comment on above: Expected: 02/28/2024 (Approximate), Expi res: 02/27/2025 Start: 02-28-2024 End: 04-30-2025 DBT Breast - bilateral BI mammo bilateral screening tomosynthesis Imaging Routine Generalized anxiety disorder Expected: 02/28/2024, Expires: 04/30/2025 [facility] Work Phone: Comment on above: Expected: 02/28/2024, Expires: Start: 02-28-2024 End: 02-27-2025 Erythrocyte sedimentation rate Sedimentation Rate Lab Routine Class 3 severe obesity due to excess calories with serious comorbidity and body mass index (BMI) of 50.0 to 59.9 in adult (Multi) Polyarthralgia Expected: 02/28/2024 (Approximate), Expires: 02/27/2025 [facility] Work Phone: Comment on above: Expected: 02/28/2024 (Approximate), Expi res: 02/27/2025 Start: 02-28-2024 End: 02-27-2025 Ferritin [Mass/volume] in Serum or Plasma Ferritin Lab Routine Fatty liver disease, nonalcoholic Elevated ferritin level Expected: 02/28/2024 (Approximate), Expires: 02/27/2025 [facility] Work Phone: Comment on above: Expected: 02/28/2024 (Approximate), Expi res: 02/27/2025 Start: 02-28-2024 End: 02-27-2025 Hemoglobin A1c/Hemoglobin.total in Blood Hemoglobin A1C Lab Routine Glucose intolerance (impaired glucose tolerance) Expected: 02/28/2024 (Approximate), Expires: 02/27/2025 [facility] Work Phone: Comment on above: Expected: 02/28/2024 (Approximate), Expi res: 02/27/2025 Start: 02-28-2024 End: 02-27-2025 Iron and Iron binding capacity panel - Serum or Plasma Iron and TIBC Lab Routine Fatty liver disease, nonalcoholic Elevated ferritin level Expected: 02/28/2024 (Approximate), Expires: 02/27/2025 [facility] Work Phone: Comment on above: Expected: 02/28/2024 (Approximate), Expi res: 02/27/2025 Start: 02-28-2024 End: 02-27-2025 Lipid 1996 panel - Serum or Plasma Lipid Panel Lab Routine Glucose intolerance (impaired glucose tolerance) Expected: 02/28/2024 (Approximate), Expires: 02/27/2025 [facility] Work Phone: Comment on above: Expected: 02/28/2024 (Approximate), Expi res: 02/27/2025 Start: 02-28-2024 End: 02-27-2025 Magnesium [Mass/volume] in Serum or Plasma Magnesium Lab Routine Glucose intolerance (impaired glucose tolerance) Expected: 02/28/2024 (Approximate), Expires: 02/27/2025 [facility] Work Phone: Comment on above: Expected: 02/28/2024 (Approximate), Expi res: 02/27/2025 Start: 02-28-2024 End: 02-27-2025 Thyrotropin [Units/volume] in Serum or Plasma Thyroid Stimulating Hormone Lab Routine 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 Expected: 02/28/2024 (Approximate), Expires: 02/27/2025 [facility] Work Phone: Comment on above: Expected: 02/28/2024 (Approximate), Expi res: 02/27/2025 Start: 02-28-2024 End: 02-27-2025 Thyroxine (T4) free [Mass/volume] in Serum or Plasma Thyroxine, Free Lab Routine 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 Expected: 02/28/2024 (Approximate), Expires: 02/27/2025 [facility] Work Phone: Comment on above: Expected: 02/28/2024 (Approximate), Expi res: 02/27/2025 Start: 02-10-2024 Thyroid stimulating hormone measurement TSH Level [facility] Start: 10-23-2023 End: 10-23-2023 Patient encounter procedure 10/23/2023 7:30 AM EST Appointment [id number] [place] [address] [facility] Start: 10-19-2023 [facility] Start: 10-03-2023 [facility] Start: 09-25-2023 End: 11-23-2024 DBT Breast - bilateral BI mammo bilateral screening tomosynthesis Imaging Routine Encounter for screening mammogram for breast cancer Expected: 09/25/2023, Expires: 11/23/2024 [facility] Work Phone: Comment on above: Expected: 09/25/2023, Expires: Start: 09-25-2023 End: 09-25-2024 Hemoglobin A1c/Hemoglobin.total in Blood [facility] Service Area Work Phone: Comment on above: Expected: 09/25/2023 (Approximate), Expi res: 09/25/2024 Start: 2023 Screening for malignant neoplasm of breast [facility] Start: 04-28-2023 Covid-19 Vaccine () Covid-19 Vaccine () [facility] Start: 04-28-2023 Influenza vaccination [facility] Start: 02-09-2023 End: 02-10-2024 Cyclic citrullinated peptide IgG Ab [Units/volume] in Serum or Plasma [facility] Work Phone: Comment on above: Expected: 02/09/2023 (Approximate), Expi res: 02/10/2024 Start: 02-09-2023 End: 02-10-2024 DNA double strand Ab [Units/volume] in Serum [facility] Service Area Work Phone: Comment on above: Expected: 02/09/2023 (Approximate), Expi res: 02/10/2024 Start: 02-09-2023 End: 02-10-2024 Opiate/Opioid/Benzo Extended Prescription Compliance [facility] Work Phone: Comment on above: Expected: 02/09/2023 (Approximate), Expi res: 02/10/2024 Start: 02-09-2023 End: 02-10-2024 Rheumatoid factor [Units/volume] in Serum by Nephelometry [facility] Work Phone: Comment on above: Expected: 02/09/2023 (Approximate), Expi res: 02/10/2024 Start: 02-09-2023 End: 02-10-2024 Triiodothyronine (T3) Free [Mass/volume] in Serum or Plasma [facility] Work Phone: Comment on above: Expected: 02/09/2023 (Approximate), Expi res: 02/10/2024 Start: 01-05-2023 [facility] Start: 10-25-2022 ELISA, Provider: Vargas Mujica, Status: Pen, Time: 8:00 AM ELISA, Provider: Vargas Mujica, Status: Ryan, Time: 8:00 AM [facility] Work Phone: Start: 10-11-2022 End: 12-11-2022 Parathyrin.intact [Mass/volume] in Serum or Plasma PTH INTACT BLD Lab Routine Increased PTH level Expected: 10/11/2022, Expires: 12/11/2022 [facility] Work Phone: Comment on above: Expected: 10/11/2022, Expires: 3 Start: 10-10-2022 End: 12-10-2022 25-hydroxyvitamin D3 [Mass/volume] in Serum or Plasma [facility] Work Phone: Comment on above: Expected: 10/10/2022, Expires: 3 Start: 10-10-2022 End: 12-10-2022 Basic metabolic 2000 panel - Serum or Plasma [facility] Work Phone: Comment on above: Expected: 10/10/2022, Expires: 3 Start: 10-10-2022 End: 12-10-2022 Cobalamin (Vitamin B12) [Mass/volume] in Serum or Plasma [facility] Work Phone: Comment on above: Expected: 10/10/2022, Expires: 3 Start: 10-10-2022 End: 12-10-2022 Ferritin [Mass/volume] in Serum or Plasma [facility] Work Phone: Comment on above: Expected: 10/10/2022, Expires: 3 Start: 10-10-2022 End: 12-10-2022 Folate [Mass/volume] in Serum or Plasma [facility] Work Phone: Comment on above: Expected: 10/10/2022, Expires: 3 Start: 10-10-2022 End: 12-10-2022 Iron and Iron binding capacity panel - Serum or Plasma [facility] Work Phone: Comment on above: Expected: 10/10/2022, Expires: 3 Start: 10-10-2022 End: 12-10-2022 Parathyrin.intact [Mass/volume] in Serum or Plasma [facility] Work Phone: Comment on above: Expected: 10/10/2022, Expires: 3 Start: 10-10-2022 End: 12-10-2022 VITAMIN B1 (THIAMINE), WHOLE BLOOD [facility] Work Phone: Comment on above: Expected: 10/10/2022, Expires: 3 Start: 09-27-2022 VIRDEE, Provider: Josselyn Roblero, Status: Pen, Time: 9:30 AM ELISA, Provider: Josselyn Roblero, Status: Pen, Time: 9:30 AM [facility] Work Phone: Start: 08-17-2022 Troponin I measurement [facility] Work Phone: Start: 08-17-2022 [facility] Start: 07-27-2022 FUV, Provider: Vargas Mujica, Status: Pen, Time: 8:20 AM FUV, Provider: Vargas Mujica, Status: Pen, Time: 8:20 AM [facility] Work Phone: Start: 07-12-2022 End: 09-11-2022 25-hydroxyvitamin D3 [Mass/volume] in Serum or Plasma VITAMIN D 25 HYDROXY Lab Routine S/P laparoscopic sleeve gastrectomy Expected: 07/12/2022, Expires: 09/11/2022 [facility] Work Phone: Comment on above: Expected: 07/12/2022, Expires: 3 Start: 07-12-2022 End: 09-11-2022 Basic metabolic 2000 panel - Serum or Plasma BASIC METABOLIC PNL Lab Routine S/P laparoscopic sleeve gastrectomy Expected: 07/12/2022, Expires: 09/11/2022 [facility] Work Phone: Comment on above: Expected: 07/12/2022, Expires: 3 Start: 07-12-2022 End: 09-11-2022 CBC panel - Blood by Automated count CBC Lab Routine S/P laparoscopic sleeve gastrectomy Expected: 07/12/2022, Expires: 09/11/2022 [facility] Work Phone: Comment on above: Expected: 07/12/2022, Expires: 3 Start: 07-12-2022 End: 09-11-2022 Cobalamin (Vitamin B12) [Mass/volume] in Serum or Plasma VITAMIN B12 BLOOD Lab Routine S/P laparoscopic sleeve gastrectomy Expected: 07/12/2022, Expires: 09/11/2022 [facility] Work Phone: Comment on above: Expected: 07/12/2022, Expires: 3 Start: 07-12-2022 End: 09-11-2022 Ferritin [Mass/volume] in Serum or Plasma FERRITIN BLD Lab Routine S/P laparoscopic sleeve gastrectomy Expected: 07/12/2022, Expires: 09/11/2022 [facility] Work Phone: Comment on above: Expected: 07/12/2022, Expires: 3 Start: 07-12-2022 End: 09-11-2022 Folate [Mass/volume] in Serum or Plasma FOLATE SERUM Lab Routine S/P laparoscopic sleeve gastrectomy Expected: 07/12/2022, Expires: 09/11/2022 [facility] Work Phone: Comment on above: Expected: 07/12/2022, Expires: 3 Start: 07-12-2022 End: 09-11-2022 Iron and Iron binding capacity panel - Serum or Plasma IRON + TIBC Lab Routine S/P laparoscopic sleeve gastrectomy Expected: 07/12/2022, Expires: 09/11/2022 [facility] Work Phone: Comment on above: Expected: 07/12/2022, Expires: 3 Start: 07-12-2022 End: 09-11-2022 Parathyrin.intact [Mass/volume] in Serum or Plasma PTH INTACT BLD Lab Routine S/P laparoscopic sleeve gastrectomy Expected: 07/12/2022, Expires: 09/11/2022 [facility] Work Phone: Comment on above: Expected: 07/12/2022, Expires: 3 Start: 07-12-2022 End: 09-11-2022 VITAMIN B1 (THIAMINE), WHOLE BLOOD VITAMIN B1 (THIAMINE), WHOLE BLOOD Lab Routine S/P laparoscopic sleeve gastrectomy Expected: 07/12/2022, Expires: 09/11/2022 [facility] Work Phone: Comment on above: Expected: 07/12/2022, Expires: 3 Start: 2022 End: 09-03-2022 Hepatic function 2000 panel - Serum or Plasma HEPATIC FUNCTION PNL Lab Routine Hepatic fibrosis Expected: 2022, Expires: 09/03/2022 [facility] Work Phone: Comment on above: Expected: 2022, Expires: 3 Start: 04-28-2022 Influenza vaccination [facility] Start: 04-19-2022 End: 06-19-2022 25-hydroxyvitamin D3 [Mass/volume] in Serum or Plasma VITAMIN D 25 HYDROXY Lab Routine S/P laparoscopic sleeve gastrectomy Expected: 04/19/2022, Expires: 06/19/2022 [facility] Work Phone: Comment on above: Expected: 04/19/2022, Expires: 2 Start: 04-19-2022 End: 06-19-2022 Basic metabolic 2000 panel - Serum or Plasma BASIC METABOLIC PNL Lab Routine S/P laparoscopic sleeve gastrectomy Expected: 04/19/2022, Expires: 06/19/2022 [facility] Work Phone: Comment on above: Expected: 04/19/2022, Expires: 2 Start: 04-19-2022 End: 06-19-2022 CBC panel - Blood by Automated count CBC Lab Routine S/P laparoscopic sleeve gastrectomy Expected: 04/19/2022, Expires: 06/19/2022 [facility] Work Phone: Comment on above: Expected: 04/19/2022, Expires: 2 Start: 04-19-2022 End: 06-19-2022 Cobalamin (Vitamin B12) [Mass/volume] in Serum or Plasma VITAMIN B12 BLOOD Lab Routine S/P laparoscopic sleeve gastrectomy Expected: 04/19/2022, Expires: 06/19/2022 [facility] Work Phone: Comment on above: Expected: 04/19/2022, Expires: 2 Start: 04-19-2022 End: 06-19-2022 Ferritin [Mass/volume] in Serum or Plasma FERRITIN BLD Lab Routine S/P laparoscopic sleeve gastrectomy Expected: 04/19/2022, Expires: 06/19/2022 [facility] Work Phone: Comment on above: Expected: 04/19/2022, Expires: 2 Start: 04-19-2022 End: 06-19-2022 Folate [Mass/volume] in Serum or Plasma FOLATE SERUM Lab Routine S/P laparoscopic sleeve gastrectomy Expected: 04/19/2022, Expires: 06/19/2022 [facility] Work Phone: Comment on above: Expected: 04/19/2022, Expires: 2 Start: 04-19-2022 End: 06-19-2022 Iron and Iron binding capacity panel - Serum or Plasma IRON + TIBC Lab Routine S/P laparoscopic sleeve gastrectomy Expected: 04/19/2022, Expires: 06/19/2022 [facility] Work Phone: Comment on above: Expected: 04/19/2022, Expires: 2 Start: 04-19-2022 End: 06-19-2022 Parathyrin.intact [Mass/volume] in Serum or Plasma PTH INTACT BLD Lab Routine S/P laparoscopic sleeve gastrectomy Expected: 04/19/2022, Expires: 06/19/2022 [facility] Work Phone: Comment on above: Expected: 04/19/2022, Expires: 2 Start: 04-19-2022 End: 06-19-2022 VITAMIN B1 (THIAMINE), WHOLE BLOOD VITAMIN B1 (THIAMINE), WHOLE BLOOD Lab Routine S/P laparoscopic sleeve gastrectomy Expected: 04/19/2022, Expires: 06/19/2022 [facility] Work Phone: Comment on above: Expected: 04/19/2022, Expires: 2 Start: 04-05-2022 End: 06-05-2022 CBC panel - Blood by Automated count CBC Lab Routine Thrombocytopenia (HCC) Expected: 04/05/2022, Expires: 06/05/2022 [facility] Work Phone: Comment on above: Expected: 04/05/2022, Expires: 2 Start: 03-30-2022 FUV, Provider: Vargas Mujica, Status: Pen, Time: 8:40 AM FUV, Provider: Vargas Mujica, Status: Pen, Time: 8:40 AM [facility] Work Phone: Start: 03-01-2022 End: 03-01-2023 SARS-CoV-2 (COVID-19) RNA [Presence] in Respiratory specimen by ALISON with probe detection PRE-PROCEDURE & PRE-OPERATIVE COVID Microbiology Routine Morbid obesity (HCC) Expected: 03/01/2022, Expires: 03/01/2023 [facility] Work Phone: Comment on above: Expected: 03/01/2022, Expires: 3 Start: 02-08-2022 End: 04-10-2022 Hepatic function 2000 panel - Serum or Plasma HEPATIC FUNCTION PNL Lab Routine TORRES (nonalcoholic steatohepatitis) Increased liver enzymes Expected: 02/08/2022, Expires: 04/10/2022 [facility] Work Phone: Comment on above: Expected: 02/08/2022, Expires: 2 Start: 02-01-2022 FUV, Provider: Vargas Mujica, Status: Pen, Time: 9:20 AM FUV, Provider: Vargas Mujica, Status: Pen, Time: 9:20 AM [facility] Work Phone: Start: 01-13-2022 End: 01-13-2023 FERNANDO BY IFA SCREEN [facility] Work Phone: Comment on above: Expected: 01/13/2022, Expires: 3 Start: 01-13-2022 End: 03-15-2022 LIVER FIBROSIS AND ACTIVITY [facility] Work Phone: Comment on above: Expected: 01/13/2022, Expires: 2 Start: 01-03-2022 End: 03-05-2022 ALPHA 1 ANTITRYP PHEN/GENOTYPE ALPHA 1 ANTITRYP PHEN/GENOTYPE Lab Routine Dyspnea and respiratory abnormalities Expected: 01/03/2022, Expires: 03/05/2022 [facility] Work Phone: Comment on above: Expected: 01/03/2022, Expires: 2 Start: 01-03-2022 End: 03-05-2022 ALPHA 1 ANTITRYPSIN PHENOTYPE ALPHA 1 ANTITRYPSIN PHENOTYPE Lab Routine Dyspnea and respiratory abnormalities Expected: 01/03/2022, Expires: 03/05/2022 [facility] Work Phone: Comment on above: Expected: 01/03/2022, Expires: 2 Start: 11-19-2021 End: 01-19-2022 CBC panel - Blood by Automated count CBC Lab Routine Class 3 severe obesity due to excess calories with serious comorbidity and body mass index (BMI) of 60.0 to 69.9 in adult (HCC) Expected: 11/19/2021, Expires: 01/19/2022 [facility] Work Phone: Comment on above: Expected: 11/19/2021, Expires: 2 Start: 11-19-2021 End: 01-19-2022 Comprehensive metabolic 2000 panel - Serum or Plasma COMP METABOLIC PANEL Lab Routine Class 3 severe obesity due to excess calories with serious comorbidity and body mass index (BMI) of 60.0 to 69.9 in adult (HCC) Expected: 11/19/2021, Expires: 01/19/2022 [facility] Work Phone: Comment on above: Expected: 11/19/2021, Expires: 2 Start: 11-19-2021 End: 01-19-2022 FERRITIN BLD FERRITIN BLD Lab Routine Class 3 severe obesity due to excess calories with serious comorbidity and body mass index (BMI) of 60.0 to 69.9 in adult ([facility]) Expected: 11/19/2021, Expires: 01/19/2022 [facility] Work Phone: Comment on above: Expected: 11/19/2021, Expires: 2 Start: 11-19-2021 End: 01-19-2022 Folate [Mass/volume] in Serum or Plasma FOLATE SERUM Lab Routine Class 3 severe obesity due to excess calories with serious comorbidity and body mass index (BMI) of 60.0 to 69.9 in adult ([facility]) Expected: 11/19/2021, Expires: 01/19/2022 [facility] Work Phone: Comment on above: Expected: 11/19/2021, Expires: 2 Start: 11-19-2021 End: 01-19-2022 IRON + TIBC IRON + TIBC Lab Routine Class 3 severe obesity due to excess calories with serious comorbidity and body mass index (BMI) of 60.0 to 69.9 in adult ([facility]) Expected: 11/19/2021, Expires: 01/19/2022 [facility] Work Phone: Comment on above: Expected: 11/19/2021, Expires: 2 Start: 11-19-2021 End: 01-19-2022 PTH INTACT BLD PTH INTACT BLD Lab Routine Class 3 severe obesity due to excess calories with serious comorbidity and body mass index (BMI) of 60.0 to 69.9 in adult ([facility]) Expected: 11/19/2021, Expires: 01/19/2022 [facility] Work Phone: Comment on above: Expected: 11/19/2021, Expires: 2 Start: 11-19-2021 End: 01-19-2022 VITAMIN B1 (THIAMINE), WHOLE BLOOD VITAMIN B1 (THIAMINE), WHOLE BLOOD Lab Routine Class 3 severe obesity due to excess calories with serious comorbidity and body mass index (BMI) of 60.0 to 69.9 in adult (HCC) Expected: 11/19/2021, Expires: 01/19/2022 [facility] Work Phone: Comment on above: Expected: 11/19/2021, Expires: 2 Start: 11-19-2021 End: 01-19-2022 VITAMIN B12 BLOOD VITAMIN B12 BLOOD Lab Routine Class 3 severe obesity due to excess calories with serious comorbidity and body mass index (BMI) of 60.0 to 69.9 in adult (HCC) Expected: 11/19/2021, Expires: 01/19/2022 [facility] Work Phone: Comment on above: Expected: 11/19/2021, Expires: 2 Start: 11-19-2021 End: 01-19-2022 VITAMIN D 25 HYDROXY VITAMIN D 25 HYDROXY Lab Routine Class 3 severe obesity due to excess calories with serious comorbidity and body mass index (BMI) of 60.0 to 69.9 in adult (HCC) Expected: 11/19/2021, Expires: 01/19/2022 [facility] Work Phone: Comment on above: Expected: 11/19/2021, Expires: 2 Start: 10-28-2021 FUV, Provider: Josselyn Roblero, Status: Pen, Time: 8:30 AM FUV, Provider: Josselyn Roblero, Status: Pen, Time: 8:30 AM [facility] Work Phone: Start: 05-25-2021 FUV, Provider: Vargas Mujica, Status: Pen, Time: 3:40 PM FUV, Provider: Vargas Mujica, Status: Ryan, Time: 3:40 PM [facility] Work Phone: Start: 04-28-2021 Influenza vaccination INFLUENZA (#1) [facility] Start: 02-16-2020 ANNUAL PCP TEAM CHRONIC DISEASE VISIT ANNUAL PCP TEAM CHRONIC DISEASE VISIT [facility] Start: 10-23-2017 Hepatitis A Vaccines (2 of 3 - Hep A Twinrix risk 3-dose series) Hepatitis A Vaccines (2 of 3 - Hep A Twinrix risk 3-dose series) [facility] Start: 10-23-2017 HEPATITIS B (2 of 3 - Hep B Twinrix 3-dose series) HEPATITIS B (2 of 3 - Hep B Twinrix 3-dose series) [facility] Start: 10-23-2017 Hepatitis B Vaccine (2 of 3 - Hep B Twinrix 3-dose series) Hepatitis B Vaccine (2 of 3 - Hep B Twinrix 3-dose series) [facility] Start: 10-23-2017 Hepatitis B Vaccines (2 of 3 - Hep B Twinrix 3-dose series) Hepatitis B Vaccines (2 of 3 - Hep B Twinrix 3-dose series) [facility] Start: 2010 HPV Vaccines (1 - 3-dose standard series) HPV Vaccines (1 - 3-dose standard series) [facility] Start: 2005 DTaP/Tdap/Td Vaccines (1 - Tdap) DTaP/Tdap/Td Vaccines (1 - Tdap) [facility] Start: 2004 Screening for malignant neoplasm of cervix [facility] Start: 2002 Urine microalbumin profile [facility] Start: 2001 Annual PCP Team Chronic Disease Visit Annual PCP Team Chronic Disease Visit [facility] Start: 2001 Anxiety Screening Anxiety Screening [facility] Start: 2001 HIV SCREENING HIV SCREENING [facility] Start: 2001 HIV screening HIV Screening [facility] Start: 1996 Varicella vaccination Varicella Vaccines (1 of 2 - 13+ 2-dose series) [facility] Start: 1988 COVID-19 VACCINE (#1) COVID-19 VACCINE (#1) [facility] Start: 1988 COVID-19 VACCINE (1) COVID-19 VACCINE (1) [facility] Start: 1984 MMR Vaccines (1 of 1 - Standard series) MMR Vaccines (1 of 1 - Standard series) [facility] Start: 1984 Varicella vaccination Varicella Vaccines (1 of 2 - 2-dose childhood series) [facility] Start: 01-02-1984 COVID-19 VACCINE (#1) COVID-19 VACCINE (#1) [facility] Start: 1983 HIV screening HIV Screening [facility] Start: 1983 Lipid panel Lipid Panel [facility] Start: 1983 Yearly Adult Physical Yearly Adult Physical [facility] Confirmation Opiate/Opioid/Benzo Prescription Compliance Confirmation Opiate/Opioid/Benzo Prescription Compliance Lab Routine Anxiety Medication management 02/28/2024 2:51 PM EDT [facility] Work Phone: End: 05-19-2023 Ct abdomen & pelvis w/contrast material CT ABD/PEL W IVCON Radiology STAT S/P laparoscopic sleeve gastrectomy Right sided abdominal pain 1 Occurrences starting 04/19/2022 until 05/19/2023 [facility] Work Phone: Comment on above: 1 Occurrences starting 04/19/2022 until 05/19/2023 End: 02-27-2026 CT Heart and Coronary arteries for calcium scoring WO contrast CT CALCIUM SCORING SELF PAY Radiology Routine Sinus bradycardia Encounter for screening for cardiovascular disorders 1 Occurrences starting 01/28/2025 until 02/27/2026 [facility] Comment on above: 1 Occurrences starting 01/28/2025 until 02/27/2026 End: 02-02-2023 Ct thorax w/o contrast material CT CHEST WO IVCON Radiology Routine Shortness of breath 1 Occurrences starting 01/03/2022 until 02/02/2023 [facility] Work Phone: Comment on above: 1 Occurrences starting 01/03/2022 until 02/02/2023 End: 02-02-2023 LUNG DIFFUSION CAPACITY (DLCO) LUNG DIFFUSION CAPACITY (DLCO) PFT Routine Dyspnea and respiratory abnormalities 1 Occurrences starting 01/03/2022 until 02/02/2023 [facility] Work Phone: Comment on above: 1 Occurrences starting 01/03/2022 until 02/02/2023 LUNG DIFFUSION CAPACITY (DLCO) L BAILEE DIFFUSION CAPACITY (DLCO) PFT Routine Dyspnea and respiratory abnormalities 02/02/2022 6:03 AM EDT [facility] Work Phone: End: 02-02-2023 LUNG VOLUMES LUNG VOLUMES PFT Routine Dyspnea and respiratory abnormalities 1 Occurrences starting 01/03/2022 until 02/02/2023 [facility] Work Phone: Comment on above: 1 Occurrences starting 01/03/2022 until 02/02/2023 LUNG VOLUMES LUNG VOLUMES PFT Routine Dyspnea and respiratory abnormalities 02/02/2022 6:03 AM EDT [facility] Work Phone: OOB Internal Tracking OOB Fur Blender al Tracking Lab Routine Anxiety Medication management 02/28/2024 2:51 PM EDT [facility] Work Phone: OPIATE/OPIOID/BENZO PRESCRIPTION COMPLIANCE OPIATE/OPIOID/BENZO PRESCRIPTION COMPLIANCE Lab Routine Anxiety Medication management 02/09/2023 4:22 PM EDT [facility] Work Phone: Opiate/Opioid/Benzo Prescription Compliance Opiate/Opioid/Benzo Prescription Compliance Lab Routine Anxiety Medication management 02/28/2024 2:51 PM EDT [facility] Work Phone: OUTSIDE VENDOR CARDI AC OUTPATIENT EXTENDED RHYTHM RECORDING (WITHOUT TELEMETRY) OUTSIDE VENDOR CARDIAC OUTPATIENT EXTENDED RHYTHM RECORDING (WITHOUT TELEMETRY) Holter Routine Dizzy Ordered: 01/09/2023 [facility] Work Phone: Comment on above: Ordered: 01/09/2023 OUTSIDE VENDOR CARDI AC OUTPATIENT EXTENDED RHYTHM RECORDING (WITHOUT TELEMETRY) OUTSIDE VENDOR CARDIAC OUTPATIENT EXTENDED RHYTHM RECORDING (WITHOUT TELEMETRY) Holter Routine Sinus bradycardia Encounter for screening for cardiovascular disorders Ordered: 01/28/2025 [facility] Work Phone: Comment on above: Ordered: 01/28/2025 Patient Education [facility] Work Phone: Patient referral [facility] Work Phone: Screen Opiate/Opioid /Benzo Prescription Compliance Screen Opiate/Opioid/Benzo Prescription Compliance Lab Routine Anxiety Medication management 02/28/2024 2:52 PM EDT [facility] Work Phone: End: 02-02-2023 SPIROMETRY - BASELINE AND POST DILATOR SPIROMETRY - BASELINE AND POST DILATOR PFT Routine Dyspnea and respiratory abnormalities 1 Occurrences starting 01/03/2022 until 02/02/2023 [facility] Work Phone: Comment on above: 1 Occurrences starting 01/03/2022 until 02/02/2023 SPIROMETRY - BASELIN E AND POST DILATOR SPIROMETRY - BASELINE AND POST DILATOR PFT Routine Dyspnea and respiratory abnormalities 02/02/2022 6:03 AM EDT [facility] Work Phone: Troponin I measurement [facility] Work Phone: End: 02-12-2023 Us abdominal real time w/image documentation US ABDOMEN COMPLETE Radiology Routine Fatty liver Increased liver enzymes 1 Occurrences starting 01/13/2022 until 02/12/2023 [facility] Work Phone: Comment on above: 1 Occurrences starting 01/13/2022 until 02/12/2023 Us abdominal real ti me w/image documentation US ABDOMEN COMPLETE Radiology Routine Fatty liver Increased liver enzymes 02/02/2022 7:43 AM EDT [facility] Work Phone: [facility] Immunizations Immunization Date Immunization Notes Care Provider [facility] 09-18-2018 influenza, injectabl e, quadrivalent, preservative free [facility] 09-18-2018 influenza, seasonal, injectable Marjan Eddy APRN.CNP Work Phone: [facility] Work Phone: 09-18-2018 influenza, seasonal, injectable, preservative free Vargas Mujica Work Phone: [facility] 09-18-2018 influenza virus vaccine, unspecified formulation Vargas Mujica PA-C Work Phone: [facility] Work Phone: 09-25-2017 hepatitis A and hepatitis B vaccine Vargas Mujica Work Phone: [facility] 09-25-2017 hepatitis B vaccine, unspecified formulation Marjan Eddy RADAR TECHNICIAN.DELPHI DEVELOPER Work Phone: [facility] 06-13-2017 influenza, injectabl e, quadrivalent, preservative free [facility] 06-13-2017 influenza, seasonal, injectable Marjan Rorovsky RADAR TECHNICIAN.DELPHI DEVELOPER Work Phone: [facility] Work Phone: 06-13-2017 influenza, seasonal, injectable, preservative free Marjan Gromovsky RADAR TECHNICIAN.DELPHI DEVELOPER Work Phone: [facility] Payers Date Payer Category Payer Unknown [id number] 2024 Self-pay [id number] 2022 Managed Care (Private) [id number] 2022 Unknown [address] [facility] [id number] 2021-Present [phone] [facility] [id number] [place] [address] Open Access [id number] 2021 Private Health Insurance [id number] 2019 Private Health Insurance [id number] 2017 Unknown [id number] 1983 Unknown [id number] 2.16.840.1.012388.3.579.2.2 78 1983 Unknown [id number] 2.16.840.1.577397.3.579.2.3 56 1983 Unknown [id number] 2.16.840.1.483966.3.579.2.3 56 1983 Unknown [id number] 2.16.840.1.622255.3.579.2.3 56 1983 Unknown [id number] 2.16.840.1.209705.3.579.2.3 56 1983 Unknown [id number] 2.16.840.1.180644.3.579.2.3 56 1983 Unknown [id number] 2.16840.1.278081.3.579.2.3 56 1983 Unknown [id number] 2.16840.1.059586.3.579.2.3 56 1983 Unknown [id number] 2.16840.1.304557.3.579.2.1 069 1983 Unknown [id number] 2.16840.1.165370.3.579.2.1 243 1983 Unknown [id number] 2.16840.1.622546.3.579.2.1 243 1983 Unknown [id number] 2.16840.1.363050.3.579.2.1 245 1983 Unknown [id number] 2.16840.1.563964.3.579.2.1 245 1983 Unknown [id number] 2.16840.1.439128.3.579.2.1 244 1983 Unknown [id number] 2.16840.1.573286.3.579.2.1 244 1983 Unknown [id number] 2.16840.1.751742.3.579.2.[address] [facility] [id number] Unknown [id number] 2.16.840.1.869410.3.579.2.4 62 Unknown [id number] 2.16.840.1.694192.3.579.2.4 62 Unknown [id number] 2.16.840.1.246846.3.579.2.4 62 Unknown [id number] 2.16.840.1.767396.3.579.2.4 62 Unknown [id number] 2.16.840.1.675566.3.579.2.4 62 Unknown [id number] 2.16.840.1.476871.3.579.2.4 62 Unknown [id number] 2.16.840.1.916491.3.579.2.4 62 Unknown [id number] 2.16.840.1.615684.3.579.2.4 62 Unknown [id number] 2.16.840.1.535842.3.579.2.4 62 Unknown [id number] 2.16.840.1.817905.3.579.2.4 62 Unknown [id number] 2.16.840.1.141001.3.579.2.4 62 Unknown [id number] 2.16.840.1.386393.3.579.2.4 62 Unknown [id number] 2.16.840.1.250762.3.579.2.4 62 Unknown [id number] 2.16.840.1.702478.3.579.2.4 62 Unknown [id number] 2.16.840.1.146208.3.579.2.4 62 Unknown [id number] 2.16.840.1.438649.3.579.2.4 62 Unknown [id number] 2.16.840.1.457547.3.579.2.4 62 Unknown [id number] 2.16.840.1.750790.3.579.2.4 62 Social History Date Type Detail Facility Start: 06-26-2019 End: 06-10-2025 Former smoker Former smoker [facility] Work Phone: Start: 06-26-2019 End: 02-08-2023 Tobacco smoking status NHIS Ex-smoker [facility] Start: 08-28-2009 End: 08-28-2019 History of tobacco use Current smoker [facility] Start: 08-28-2009 End: 08-28-2019 History of tobacco use Cigarette Smoker [facility] Start: 06-26-2019 End: 02-08-2023 Tobacco use and exposure Smokeless tobacco non-user [facility] Start: 11-19-2021 End: 06-10-2025 Alcohol intake Ex-drinker (finding) [facility] Start: 03-15-2019 End: 04-06-2022 Tobacco Comment total quit 2017. currently 5 cigarettes/month [facility] Start: 1985 Sex Assigned At Female C [facility] Start: 11-19-2020 End: 11-06-2024 Exposure to SARS-CoV-2 (event) Not sure [facility] Start: 03-25-2022 End: 04-11-2022 Exposure to SARS-CoV-2 (event) Yes [facility] Start: 08-17-2022 End: 10-19-2023 Tobacco smoking status KYIS Unknown if ever smoked [facility] Start: 06-07-2020 None [facility] Start: 06-07-2020 With Family [facility] Start: 06-23-2020 Non-smoker [facility] Start: 02-09-2023 Alcohol intake Current drinke r of alcohol (finding) [facility] Work Phone: Start: 02-09-2023 End: 06-10-2025 Tobacco use panel [facility] Work Phone: Start: 02-08-2023 Alcohol Comment OCCASIONALLY [facility] Work Phone: Start: 1985 Sex Assigned At Not on file U [facility] Work Phone: Tobacco smoking status No Smoking Status Entered [facility] Start: 07-23-2022 PHQ2 Score 0 [facility] Work Phone: Start: 06-07-2021 Gender identity Identifies as female gender (finding) [facility] Start: 06-07-2021 Sexual orientation Heterosexual (huan light) [facility] NEGATED: Highlighted row - - [facility] Work Phone: NEGATED: Highlighted row [facility] Goals Date Patient Goal Desired Activity /State Personal health goal Personal health goal Personal health goal Personal health goal Functional Status Date Assessment Result Facility 06-10-2025 Patient Health Questionnaire 2 item (PHQ-2) [Reported] [facility] Work Phone: 06-10-2025 Functional status [facility] Work Phone: 06-10-2025 [facility] Work Phone: 05-15-2023 Functional Status Independent [facility] 05-15-2023 Functional Status ID band on, Allergy Band on, Call device within reach, Bed in low position, Wheels locked, Upper/Half-Length side-rails up, Visitor at bedside [facility] 09-26-2018 Are you deaf, or do you have serious difficulty hearing No 09/26/2018 2:05 PM Mabel Bates) (Hist), RN No [facility] 09-26-2018 Are you blind, or do you have serious difficulty seeing, even when wearing glasses No 09/26/2018 2:05 PM Mabel BatesRn) (Hist), RN No [facility] 09-26-2018 Do you have serious difficulty walking or climbing stairs No 09/26/2018 2:05 PM Mabel BatesRn) (Hist), RN No [facility] 09-26-2018 Do you have difficul ty dressing or bathing No 09/26/2018 2:05 PM Mabel BatesRn) (Hist), RN No [facility] 09-26-2018 Because of a physica l, mental, or emotional condition, do you have difficulty doing errands alone such as visiting a physician's office or shopping No 09/26/2018 2:05 PM Mabel BatesRn) (Hist), RN No [facility] NEGATED: Highlighted row Functional performance Functional status health issues are not documented Disease [facility] Work Phone: Mental Status Date Assessment Result Facility 10-19-2023 Cognitive function Level Of Cons ciousness Awake;Alert;Appropriate ;Follows Commands [facility] Work Phone: 10-03-2023 Cognitive function Level Of Cons ciousness Awake;Alert;Appropriate ;Follows Commands [facility] Work Phone: 05-15-2023 Mental Status Orientation Orie nted x 4 [facility] 05-15-2023 Mental Status [facility] 01-05-2023 Cognitive function Awake;Alert;Appropriat e [facility] Work Phone: 11-15-2022 Cognitive function Voice/Name [facility] Work Phone: 08-17-2022 Cognitive function Voice/Name [facility] Work Phone: 09-26-2018 Because of a physical, mental, or emotional condition, do you have serious difficulty concentrating, remembering, or making decisions No 09/26/2018 2:05 PM Mabel BatesRn) (Hist), RN No [facility] NEGATED: Highlighted row Cognitive function [Interpretation] Cognitive status health issues are not documented Disease [facility] Work Phone: Clinical Notes 03-03-2008 to 06-10-2025 Vargas Mujica PA-C - 06/10/2025 1:00 PM EDTTelephone Encounter - Lexis Owen RN - 02/10/2025 3:03 PM EDTTelephone Encounter - Lexis Owen RN - 02/10/2025 3:03 PM EDT Note Date & Type Note Facility 06-10-2025 History of Present illness Narrative An interactive audio and video telecommunication system which permits real time communication between the patient (at home) and the provider (at the office) was utilized to provide this telehealth service Virtual or Telephone Consent Verbal consent was requested and obtained from Emma Cowart on this date, 06/10/25 for a telehealth visit and the patient's location was confirmed at the time of the visit. Subjective Patient ID: Emma Cowart is a 39 y.o. female who presents for Illness (C/O DIARRHEA/ NO APPETITE X2 MO. DOES NOT FEEL RIGHT. ) HPI Patient presents today for.... Illness / Off symptoms x 6 mo Pt notes the last 6 mo around her period she is feeling off - The week around her period is worse and she notes inc anxiety, dec appetite, fatigue Pt states symptoms have gotten worse in the last 2 month Labs were done 6 mo ago - discussed getting updated labs Bradycardia and palpitations - following with cardio. Recent cardiac calcium score she states was Wnl. Discussed follow up for echo or monitor or if cannot be done with them we can pursue work up Labs- done in [place] 2024 Pain Polyarthralgia / stiffness Polyarthralgia and [...] issues and the flushing of the face. Med check anxiety - ativan PRN - no longer on effexor - consider trial again given her symptoms pt has tried about everything she believes [...] Bariatric status - Apr 11 2022 - Problem List[1] Review of Systems Constitutional: Positive for fatigue. Negative for chills and fever. HENT: Negative for congestion, rhinorrhea, sinus pain, sore throat and tinnitus. Eyes: Negative for discharge, redness and visual disturbance. Respiratory: Negative for cough, chest tightness, shortness of breath and wheezing. Cardiovascular: Negative for chest pain, palpitations and leg swelling. Gastrointestinal: Positive for abdominal distention. Negative for abdominal pain, constipation, diarrhea, nausea and vomiting. Endocrine: Negative for cold intolerance and heat intolerance. Genitourinary: Negative for flank pain, frequency and urgency. Musculoskeletal: Positive for arthralgias. Negative for back pain, gait problem and neck pain. Skin: Negative for rash and wound. Neurological: Negative for dizziness, tremors, syncope, numbness and headaches. Hematological: Does not bruise/bleed easily. Psychiatric/Behavioral: Positive for dysphoric mood and sleep disturbance. Negative for confusion and suicidal ideas. The patient is nervous/anxious. Medical History[2] Surgical History[3] Family History[4] Social History[5] Allergies[6] Current Medications[7] Objective There were no vitals taken for this visit. Physical Exam Vitals reviewed. Constitutional: Appearance: Normal appearance. She is obese. HENT: Head: Normocephalic. Right Ear: External ear normal. Left Ear: External ear normal. Eyes: Conjunctiva/sclera: Conjunctivae normal. Musculoskeletal: General: Normal range of motion. Neurological: General: No focal deficit present. Mental Status: She is alert and oriented to person, place, and time. Psychiatric: Mood and Affect: Mood normal. Behavior: Behavior normal. 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, F41.8 Class 3 severe obesity due to excess calories with serious comorbidity and body mass index (BMI) of 50.0 to 59.9 in adult ([facility]) E66.813, Z68.43 Palpitations R00.2 Generalized anxiety disorder F41.1 H/O cardiac radiofrequency ablation Z98.890 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.3 Other Visit Diagnoses Codes Anxiety F41.9 Relevant Orders Estrogens, Total Progesterone FSH Luteinizing hormone Testosterone, total and free DHEA level Medication management Z79.899 FU in 2-6 weeks with labs at [facility], heart check up [1] Patient Active Problem List Diagnosis AAT (azlfi-1-nxhqiasfagv) deficiency (Multi) Abnormal EKG Bilateral hand numbness [...] (BMI) of 50.0 to 59.9 in adult ([facility]) BRISEYDA on CPAP Palpitations Generalized anxiety disorder PTSD (post-traumatic stress disorder) Sacroiliitis H/O cardiac radiofrequency ablation 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 Polyarthralgia [2] Past Medical History: Diagnosis Date Abdominal distension [...] disorder, unspecified Post traumatic stress disorder (PTSD) [3] Past Surgical History: Procedure Laterality Date SECTION, CLASSIC 12/02/2016 Section CHOLECYSTECTOMY 12/02/2016 Cholecystectomy ESOPHAGOGASTRODUODENOSCOPY 12/02/2016 Diagnostic Esophagogastroduodenoscopy GASTRIC BYPASS 04/11/2022 LIVER BIOPSY OTHER SURGICAL HISTORY 10/03/2019 Heart surgery TONSILLECTOMY 12/02/2016 Tonsillectomy TUBAL LIGATION 12/02/2016 Tubal Ligation [4] Family History Problem Relation Name Age of Onset No Known Problems Mother Heart attack Father Hyperlipidemia Father Hypertension Father Diabetes Other GRANDPARENT Thyroid disease Other AUNT [5] Social History Tobacco Use Smoking status: Former Types: Cigarettes Smokeless tobacco: Never Vaping Use Vaping status: Never Used Substance Use Topics Alcohol use: Not Currently Drug use: Never [6] Allergies Allergen Reactions Citalopram Other Meclizine Other Morphine Other Nadolol Other Penicillin V Hives Bupropion Hcl Rash Hydrocodone-Acetaminophen Itching and Rash [7] Current Outpatient Medications Medication Sig Dispense Refill aspirin 81 mg chewable tablet Chew and swallow 1 tablet (81 mg) once daily. LORazepam (Ativan) 1 mg tablet Take 1 tablet (1 mg) by mouth 3 times a day as needed for anxiety. 60 tablet 0 multivitamin-children's (Flintstones Complete, iron,) chewable tablet Chew and swallow 2 tablets once daily. pantoprazole (ProtoNix) 40 mg EC tablet Take 1 tablet (40 mg) by mouth once daily. 90 tablet 3 albuterol 90 mcg/actuation inhaler INHALE 1 TO 2 PUFFS EVERY 6 HOURS NEEDED (Patient not taking: Reported on 06/10/2025) 18 g 1 cyclobenzaprine (Flexeril) 10 mg tablet Take 1 tablet (10 mg) by mouth 2 times a day as needed for muscle spasms. 60 tablet 0 diclofenac (Cataflam) 50 mg tablet Take 1 tablet (50 mg) by mouth 3 times a day. 60 tablet 0 semaglutide, weight loss, (Wegovy) 0.25 mg/0.5 mL pen injector Inject 0.25 mg under the skin 1 (one) time per week for 4 doses. 2 mL 0 No current facility-administered medications for this visit. documented in this encounter [facility] Work Phone: 06-03-2025 Note HNO ID: [id number] Author: DEE DEE LOUISE APRN.DELPHI DEVELOPER Service: ? 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 EMB was recommended for AUB in 2020 with SW - did not have done. - Underwent sleeve gastrectomy on 04/11/2022. Initially lost weight but has since plateaued. Actively participating in [employer] and trying to stay active. - Considering further weight loss options but has not yet explored additional surgical options due to recent life events and anxiety with illness and subsequent of her father. - Family doctor considered prescribing Wegovy, but the cost was prohibitive. Menses: Endometrial ablation 2009 resulting in menses every 28 days 3-4 light menstrual flow. February and March - menses both early. Contraception: Essure 2009 HPV vaccine: Yes Last Pap: 06/02/2021 normal HPV: 06/02/2021 negative History of abnormal pap: No Last mammogram: 2024 [facility] normal Abnormal mammogram: 024 - normal after diagnostic imaging Sexually active: Yes History of STDS: No Time with current partner: 13 years Hot flashes: gets over warm Night sweats: Yes, 2-3 times a week Vaginal dryness: No Documentation from previous visit of 06/02/2021 was copied and pasted, documentation has been reviewed and edited as necessary for today's visit. OB History Gravida1 Para1 Term1 Preterm0 AB0 Living1 SAB0 IAB0 Ectopic0 Multiple0 Live Births1 Warrant Clerk History LMP: 07/11/2016, Ablation Age at Menarche: Age at First : Age at Menopause: Warrant Clerk History Comments: Sexual Activity: Yes; Male; ablation Contraception: Other, Tubal Ligation PAST MEDICAL HISTORY Diagnosis Date Cjlok-2-pmpfflmfqjt deficiency (HCC) Cardiac dysrhythmia, unspecified 2007 Depressive [...] cervical CHOLECYSTECTOMY 01/08/2008 EGD 04/2021 EGD 02/2021 ESSURE 2009 LAP SLEEVE GASTRECTOMY 04/11/2022 LAPAROSCOPIC UTERINE NERVE ABLATION 2011 LIVER BIOPSY 2008 MIDLINE CATHETER 09/21/2018 PAST SURGICAL HISTORY OF 2009 spring coils in fallopian tubes S BALLOON,UTERINE ABLATION [id number] 2009 SHX CARDIAC RADIOFREQUENCY ABLATION 2018 ventricular TONSILLECTOMY PRIMARY/SECONDARY Tonsillectomy, wisdom teeth FAMILY HISTORY Problem Relation Age of Onset Anxiety disorder Mother panic attacks Heart Attack Father 54 Heart disease Father coronary stents other (liver disease) Father alpha 1 antitrypsin; has liver transplant other (atrial fibrillation) Father Thyroid Sister Hashimotos Anxiety disorder Sister Anxiety disorder Sister other (atrial fibrillation) Paternal Grandmother Heart disease Paternal Grandfather heart transplant other (liver failure) Paternal Grandfather other (atrial fibrillation) Paternal Aunt other (atrial fibrillation) Paternal Uncle SOCIAL HISTORY Social History Tobacco Use Smoking status: Former Current packs/day: 0.00 Average packs/day: 0.5 packs/day for 10.0 years (5.0 ttl pk-yrs) Types: Cigarettes Start date: 2009 Quit date: 2019 Years since quittin.7 Smokeless tobacco: Never Tobacco comments: total quit 2017. currently 5 cigarettes/month Vaping Use Vaping status: Never Used Substance Use Topics Alcohol use: Not Currently Drug use: No Comment: no medical THC card REVIEW OF SYSTEMS Abdomen: No abdominal pain, nausea, vomiting, diarrhea, or constipation. No bloating, early satiety, indigestion, or increased flatulence. Bladder: No dysuria, gross hematuria, urinary frequency, urinary urgency, or incontinence. Breast: No breast lumps, nipple d/c, overlying skin changes, redness or skin retraction. Allergies and current medication updated:Yes SENSITIVE EXAM: The sensitive examination was discussed with the Patient or Patient's Authorized Heavy Equipment Engine Mechanic. As applicable, any other physician, advance practice provider, medical student, or other health professional student that will be observing or involved in the sensitive examination for educational or training purposes was discussed with the Patient or Authorized Heavy Equipment Engine Mechanic. The Patient or Authorized Heavy Equipment Engine Mechanic has agreed to proceed with the s (more content not included)... [facility] 02-10-2025 Telephone encounter Note Emma Cowart returned call. Relayed holter results and she voiced understanding. Lexis Owen RN [facility] 02-10-2025 Miscellaneous Notes Emma Cowart returned call. Relayed holter results and she voiced understanding. Lexis Owen RN LVM and sent my chart message with results. Lexis Owen RN ----- Message from Johanny Marmolejo APRN.DELPHI DEVELOPER sent at 02/10/2025 2:41 PM EDT ----- [...] was Sinus Rhythm. documented in this encounter [facility] 02-10-2025 Telephone encounter Note LVM and sent my chart message with results. Lexis Owen RN [facility] 02-10-2025 Telephone encounter Note ----- Message from [...] bpm. Predominant underlying rhythm was Sinus Rhythm. [facility] 02-10-2025 Progress note Formatting of t his [...] bpm. Predominant underlying rhythm was Sinus Rhythm. [facility] Work Phone: 01-29-2025 Telephone encounter Note Order faxed. Confirmation received. Laurel Roberts RN [facility] 01-29-2025 Miscellaneous Notes Order faxed. Confirmation received. Laurel Roberts RN [facility] asking for an order for Calcium Scoring to be faxed to [phone]. Johanny Meredith LPN documented in this encounter [facility] 01-29-2025 Telephone encounter Note [facility] asking for an order for Calcium Scoring to be faxed to [phone]. Johanny Meredith LPN [facility] 01-28-2025 Instructions Johanny Marmolejo APRN.[facility] - 01/28/2025 2:54 PM EDT Heart Disease in Women Is heart disease a problem for women? Heart disease is the leading cause of of [place] women. More women from heart disease than [...] disease. You can get more information from: [place] [facility] Klupwgfonyz8-511-WJS-USA-1 ( )www.heart.org Developed by [employer]. Published by [employer]. Copyright 2014 [employer] and/or one of its subsidiaries. All rights reserved. documented in this encounter [facility] 01-28-2025 History of Present illness Narrative Chief Complaint Patient presents with: Cardiology Follow Up - Generic: sooner f/u than [place] - bradycardia History of Present Illness: Emma Cowart is a very pleasant 39 year old female who presents for symptom concerns. She has a past medical history of wide-complex tachycardia (s/p ablation 2019 at [facility]), gastric bypass surgery. She is [...] is currently working with a dietitian through [employer] to improve her health and manage her [...] up Dr. Garay's first available appointment in [place] on 09/15/2025. PAST MEDICAL HISTORY Diagnosis Date Woclh-1-awjwfqmhavu deficiency (HCC) Cardiac dysrhythmia, unspecified 2007 Depressive [...] coils in fallopian tubes S BALLOON,UTERINE ABLATION [id number] 2009 SHX CARDIAC RADIOFREQUENCY ABLATION 2018 ventricular [...] coronary artery disease; patient to schedule at [facility]. - Consider follow-up with functional medicine [...] 2025, 12:51 PM documented in this encounter [facility] 01-28-2025 Note HNO ID: [id number] Author: JOHANNY MARMOLEJO APRN.CNP Service: ? Author Type: Nurse Practitioner Type: Progress Notes Filed: 01/30/2025 11:11 Note Text: Chief Complaint Patient presents with: Cardiology Follow Up - Generic: sooner f/u than [place] - bradycardia History of Present Illness: Emma Cwoart is a very pleasant 39 year old female who presents for symptom concerns. She has a past medical history of wide-complex tachycardia (s/p ablation 2019 at [facility]), gastric bypass surgery. She is known to Dr. Garay, last seen in our [place] office location 01/09/2023. The patient is a [...] is currently working with a dietitian through [employer] to improve her health and manage her [...] up Dr. Garay's first available appointment in [place] on 09/15/2025. PAST MEDICAL HISTORY Diagnosis Date Obzdh-2-onagempjcdt deficiency (HCC) Cardiac dysrhythmia, unspecified 2007 Depressive [...] coils in fallopian tubes S BALLOON,UTERINE ABLATION [id number] 2009 SHX CARDIAC RADIOFREQUENCY ABLATION 2018 ventricular [...] Years since qu (more content not included)... [facility] 01-28-2025 Note HNO ID: [id number] Author: EDITH MURRAY MD Service: ? Author Type: Physician Type: Procedures Filed: 02/11/2025 09:33 Note Text: Patient Name: Emma Cowart : 1985 Ordering Provider: Johanny Marmolejo [...] Murray MD February 11, 2025 9:32 AM [facility] 01-13-2025 Telephone encounter Note Pt called back in. Pt scheduled 01/28/2025 with Caridad Junior [facility] 01-13-2025 Miscellaneous Notes Pt called back in. Pt scheduled 01/28/2025 with Caridad Junior Called pt and left voicemail stating we could get her in sooner if she is willing to come to [place]. Waiting to hear back from pt if she would like to reschedule. Sada Alvarez Patient calling to report that she continues to experience bradycardia symptoms (heart rate between 40 and 50). Patient is concerned of low heart rate due to family history and wanted to schedule an appointment with Dr. Garay to further discuss. Patient scheduled for Dr. Garay's first available appointment on 09/15/2025. Patient is requesting to be seen sooner if possible. documented in this encounter [facility] 01-13-2025 Telephone encounter Note Called pt and left voicemail stating we could get her in sooner if she is willing to come to [place]. Waiting to hear back from pt if she would like to reschedule. Sada Alvarez [facility] 01-09-2025 Telephone encounter Note Patient calling to report that she continues to experience bradycardia symptoms (heart rate between 40 and 50). Patient is concerned of low heart rate due to family history and wanted to schedule an appointment with Dr. Garay to further discuss. Patient scheduled for Dr. Garay's first available appointment on 09/15/2025. Patient is requesting to be seen sooner if possible. [facility] 11-06-2024 History of Present illness Narrative Subjective Patient ID: Emma Cowart is a 39 y.o. female who presents for Follow-up (C/O LIVER PAIN AND DISCUSS SOMETHING FOR WEIGHT LOSS. C/O TENDONITIS ON/OFF LT FOOT IBUPROFEN IS NOT HELPING ) HPI Labs- [place] and [place] Aug[place]Sep 2023 in [place] Pain Polyarthralgia / stiffness Polyarthralgia and has [...] have personally reviewed the OARRS report for Emma Cowart. I have considered the risks of abuse, dependence, addiction and diversion and I believe that it is clinically appropriate for Emma Cowart to be prescribed this medication Is [...] medication(s). Patient Active Problem List Diagnosis AAT (wtyab-0-pgrvkfzqhzi) deficiency (Multi) Abnormal EKG Bilateral hand numbness [...] anxiety disorder PTSD (post-traumatic stress disorder) Sacroiliitis ([facility]) H/O cardiac radiofrequency ablation Hypothyroidism due to [...] labs from Aug 2023 Reviewed labs from [place] summer 2023 Impression MDM 1) COMPLEXITY: 1 UNDIAGNOSED NEW [...] List Items Addressed This Visit ICD-10-CM AAT (xxsay-3-yvvklqvosfz) deficiency (Multi) E88.01 Vitamin D deficiency E55.9 [...] FU in 2-6 weeks with labs at [facility] fasting and med check / wt check Call to start wegovy pending labs if she wishes and insurance/cost documented in this encounter [facility] Work Phone: 07-11-2024 History of Present illness Narrative Subjective Patient ID: Emma Cowart is a 39 y.o. female who [...] have personally reviewed the OARRS report for Emma Jorge A Cowart. I have considered the risks of abuse, dependence, addiction and diversion and I believe that it is clinically appropriate for Emma Cowart to be prescribed this medication Is [...] medication(s). Patient Active Problem List Diagnosis AAT (syjmk-8-szmrceweiid) deficiency (Multi) Abnormal EKG Bilateral hand numbness [...] Behavior: Behavior normal. Testing Reviewed labs from [facility] LFT were Wnl Thyroid WNL Glucose - [...] pain check / auto-immune labs PT - [facility] Spine, bilat UE FU in 6-7 mo with labs at [place] and med check documented in this encounter [facility] Work Phone: 07-11-2024 Reason for visit Narrative Specialty Diagnoses / Procedures Referred By Donna t Referred To Contact Radiology Diagnoses Cervicalgia Procedures XR cervical spine 2-3 views Vargas Mujica PA-C [address] [place] [address] Phone: tel: fax: Referral ID Status Reason Start Date Expiration Date Visits Requested Visits Authorized [id number] Authorized Perform Procedure 4 07/11/2025 1 1 [facility] Work Phone: [phone]) 875-523810-11-2024 History of Present illness Narrative* Agata Goldman, RT(R) - 06/07/2024 4:30 PM EDT Radiology Service Progress Note PATIENT NAME: Emma J Sofya DATE OF SERVICE: June 07, 2024 TIME: [...] PATIENT PRESENTS WITH AN IMPLANTABLE OR ATTACHED DIRECTOR OF RESTAURANTS: No RADIOLOGY DEPARTMENT: General X-ray: Exam(s) Completed: Lower Extremity X- Ray(s): Foot, Left PERIPHERAL IV DATA: Not applicable SIGNED BY: RT Regine(R) June 07, 2024 4:21 PM [facility] History of Present illness Narrative* Kamilla Coon APRN.DELPHI DEVELOPER - 06/07/2024 4:14 PM EDT Images from [...] verbalized understanding and agreement with this plan. Kamilla Coon APRN.SWATI [facility] History of Present illness Narrative* Jovita Moreno RT(R) - 04/24/2024 3:40 PM EDT Radiology Service Progress Note PATIENT NAME: Emma Cowart DATE OF SERVICE: April 24, 2024 [...] PATIENT PRESENTS WITH AN IMPLANTABLE OR ATTACHED DIRECTOR OF RESTAURANTS: No RADIOLOGY DEPARTMENT: General X-ray: Exam(s) Completed: Chest X-Ray PERIPHERAL IV DATA: Not applicable SIGNED BY: RT Tonny(R) April 24, 2024 4:06 PM [facility] History of Present illness Narrative* Ami Delgado APRN.CNP - 04/24/2024 3:31 PM EDT CC: Patient presents with: Sinus Problem: Congestion, cough, sore throat, MCKINNEY x 3 days HPI: Emma Cowart is a 38 year old female [...] air exchange PAST MEDICAL HISTORY No date: Uugwv-1-xqqowmylswn deficiency ([facility]) 2007: Cardiac dysrhythmia, unspecified No date: Depressive disorder, not elsewhere classified No date: DVT (deep venous thrombosis) ([facility]) Comment: after PICC line No date: Esophageal reflux 04/09/2015: 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 No date: Irritable bowel syndrome No date: Morbid obesity ([facility]) Comment: stated BMI 47.3 No date: BRISEYDA (obstructive sleep apnea) No date: Other chronic nonalcoholic liver disease No date: Personal history of tobacco use, presenting hazards to health Comment: 1/2 ppd x 5 years; quit 08/18/14 - restarted and quit in 07/2021: Pneumonia due to COVID-19 virus No date: Pulmonary embolism ([facility]) Comment: after PICC line No date: V-tach ([facility]) PAST SURGICAL HISTORY 2002: DELIVERY ONLY Comment: , low cervical 01/08/2008: CHOLECYSTECTOMY 04/2021: EGD 02/2021: EGD 04/11/2022: LAPAROSCOPIC GASTRECTOMY 2012: LAPAROSCOPIC UTERINE NERVE ABLATION 2008: LIVER BIOPSY 09/21/2018: MIDLINE CATHETER Comment: 2010: PAST SURGICAL HISTORY OF Comment: spring coils in fallopian tubes 2010: S BALLOON,UTERINE ABLATION [id number] 2019: SHX CARDIAC RADIOFREQUENCY ABLATION Comment: ventricular [...] Unremarkable. IMPRESSION IMPRESSION: No acute radiographic abnormality. Buyer Renter: YUVAL Transcribe Date/Time: Apr 24 2024 4:15P Dictated by : AMI DAVENPORT MD Patient was given Tessalon Perles for her cough. At this time it is believed to be viral. Patient can treat with zcyv-nox-umijpzk medication for symptom management. Prescription instructions reviewed with patient as applicable. Potential red flag symptoms discussed with the patient. Reviewed appropriate action plan to take if red flag symptoms occur. Patient agreeable to treatment plan. Ami Delgado APRN.DELPHI DEVELOPER documented in this encounterMetrohealth [facility]07-03-2024 History of Present illness Narrative* Vargas Mujica PA-C - 02/28/2024 1:20 PM EDT Subjective Patient ID: Emma Cowart is a 38 y.o. female who [...] floor instability. We discussed follow up with GIVER for eval but consider pelvic floor therapy Preventative Testing mammo - suggest age 40 - ordered DEXA - suggest age 50-55 colonoscopy - suggest age 45-50 PAP Fall - NEG February 2024 PHQ9 score of 15 March 2024 - known depression and exacerbated OARRS: Vargas Mujica PA-C on 02/28/2024 1:42 PM I have personally reviewed the OARRS report for Emma Cowart. I have considered the risks of abuse, dependence, addiction and diversion and I believe that it is clinically appropriate for Emma Cowart to be prescribed this medication Is [...] medication(s). Patient Active Problem List Diagnosis AAT (uqrzc-7-bqahnwufbri) deficiency (Multi) Abnormal EKG Bilateral hand numbness [...] LEUKOCYTES (10*3/UL) IN BLOOD BY AUTOMATED COUNT, [place] 4.4 - 11.3 x10*3/uL 8.2 nRBC 0.0 - 0.0 /100 WBCs 0.0 ERYTHROCYTES (10*6/UL) IN BLOOD BY AUTOMATED COUNT, [place] 4.00 - 5.20 x10*6/uL 5.34 (H) HEMOGLOBIN 12.0 - 16.0 g/dL 15.1 HEMATOCRIT 36.0 - 46.0 % 47.2 (H) MCV 80 - 100 fL 88 MCH 26.0 - 34.0 pg 28.3 MCHC 32.0 - 36.0 g/dL 32.0 RED CELL DISTRIBUTION WIDTH 11.5 - 14.5 % 13.4 PLATELETS (10*3/UL) IN BLOOD AUTOMATED COUNT, [place] 150 - 450 x10*3/uL 208 NEUTROPHILS/100 LEUKOCYTES IN BLOOD BY AUTOMATED COUNT, [place] 40.0 - 80.0 % 63.4 Immature Granulocytes %, Automated 0.0 - 0.9 % 0.1 Lymphocytes % 13.0 - 44.0 % 28.2 Monocytes % 2.0 - 10.0 % 6.7 Eosinophils % 0.0 - 6.0 % 1.2 Basophils % 0.0 - 2.0 % 0.4 NEUTROPHILS (10*3/UL) IN BLOOD BY AUTOMATED COUNT, [place] 1.20 - 7.70 x10*3/uL 5.22 Immature Granulocytes [...] with med check / [facility] documented in this encounterOhio[facility] Work Phone: [phone]) 269-987202-06-2024 Miscellaneous Notes* Telephone Encounter - Deneen Méndez LPN - 10/03/2023 8:28 AM EST Emma called with concerns of heart palpations, pain in neck and arm, and discomfort in chest. History of VT's and had an oblation in 2019. Last office visit 01/09/[address] Garay. Advised patient to go to ER to be assessed. Patient agreed, transferred patient to scheduling to make future appointment with Dr Garay. Emma# [phone] Deneen Méndez LPN October 03, 2023 8:39 AM documented in this encounterMetrohealth [facility]01-29-2024 History of Present illness Narrative* Vargas Mujica PA-C - 09/25/2023 8:20 AM EST Subjective Patient ID: Emma Cowart is a 38 y.o. female who [...] floor instability. We discussed follow up with GIVER for eval but consider pelvic floor therapy Preventative Testing mammo - suggest age 40 - ordered DEXA - suggest age 50-55 colonoscopy - suggest age 45-50 PAP Fall - NEG AUG 2023 PHQ9 score of 21 OARRS: Vargas Mujica PA-C on 09/25/2023 8:43 AM I have personally reviewed the OARRS report for Emma Cowart. I have considered the risks of abuse, dependence, addiction and diversion and I believe that it is clinically appropriate for Emma Cowart to be prescribed this medication Is [...] medication(s). Patient Active Problem List Diagnosis AAT (vwmhh-0-yjfwrywycyg) deficiency (CMS/HCC) Abnormal EKG Bilateral hand numbness [...] (post-traumatic stress disorder) Sacroiliitis (CMS/HCC) Ankylosing spondylitis ([facility]/HCC) H/O cardiac radiofrequency ablation Hypothyroidism due to [...] List Items Addressed This Visit ICD-10-CM AAT (ubrsq-5-vldneuudbvh) deficiency ([facility]) E88.01 Vitamin D deficiency E55.9 Relevant Orders Vitamin D 25-Hydroxy,Total (for eval of Vitamin D levels) (Completed) Depression, major, single episode, moderate ([facility]) F32.1 Elevated ferritin level R79.89 [...] index (BMI) of50.0 to 59.9 in adult ([facility]) E66.01, Z68.43 Generalized anxiety disorder F41.1 Other Visit Diagnoses Codes Major depressive disorder, single episode, moderate ([facility]) - Primary F32.1 Relevant Medications venlafaxine XR (Effexor-XR) 75 mg 24 hr capsule Anxiety F41.9 Relevant Medications LORazepam (Ativan) 1 mg tablet Encounter for screening mammogram for breast cancer Z12.31 Relevant Orders BI mammo bilateral screening tomosynthesis FU in 1-3 mo with labs and med check /mood check mammo documented in this encounterOhioHealth [facility] Work Phone: 1(772) 816-242109-18-2023 Hospital Discharge instructions Patient Education 05/15/2023 18:40:46 [...] or water and you are getting dehydrated 8433-5734 [employer]. [address] [place] [address], [place] [address]. All rights reserved. This information is not intended as a substitute for professional medical care. Always follow yourhealthcare professional's instructions. Follow Up Care 05/15/2023 16:27:17 With:CHANDA VASQUEZ Address: [address] [phone] Business (1) When:2-4 days With:VARGAS MUJICA Address: [address] [place] [address]- [phone] Business (1) When:2-4 days [facility] Janell Srinivasan 09-18-2023 Note Discharge Instructions Thank you [...] 2-4 days Where: [address] [place] [address]- [phone] Business (1) Follow Up with VARGAS MUJICA When Within 2-4 days Where: [address] [place] [address]- [phone] Business (1) Allergies Wellbutrin morphine penicillin Medications [...] or water and you are getting dehydrated 2174-1387 [employer]. [address] [place] [address], [place] [address]. All rights reserved. This information is not intended as a substitute for professional medical care. Always follow yourhealthcare professional's instructions. Additional Information VACCINATE! IT SAVES LIVES! Members of the community who have not yet received the COVID-19 vaccine and would like to receive it can visit one of [facility] vaccine clinics. There are many vaccine clinic locations within the [facility]. For locations and available times, please visit [email or web address] It is important to note that some COVID mobile vaccine clinics are held outdoors and may be canceled in rainy or stormy conditions. To learn more about pediatric vaccinations (ages 5-11), we invite you to visit the [facility] webpage. [email or web address]/[email or web address] [email or web address] learn more about the COVID-19 vaccine, we invite you to visit the CDC website for a list of frequently asked questions. https://www.cdc.gov/coronavirus/2019-ncov/vaccines/faq.html [place] [facility] Patient Portal Access Instructions: Stay connected with your healthcare team and access your personal medical information anytime with the [employer] [facility] Patient Portal. If you would like a full copy of your medical records please contact the [facility] Medical Records Department Monday through Monday between 8a.m. and 4:30p.m. Please follow the directions below to access the portal: 1.Access the email account you provided upon registration to the hospital.2.Look for an invitation email from [facility].3.Open the email and access the invitation link: Accept Invitation to [facility]4.Fill in the required palma to create your account. Sign into [email or web address] with your username and password that you [...] you will allow to register on the [employer] Patient Portal for access to your information. You can also access the [employer] Patient Portal on the mascotsecret jimbo. Simply click on Health Records under [email or web address].gr and then click on the [employer] logo. HOW TO SAFELY DISPOSE OF PRESCRIPTION [...] Call your local pharmacy or go to [email or web address] to find one close to you.3.Make use of household items: Use cat litter or old coffee grounds to dispose medications if other options arenot available. Mix your drugs with these household products, seal them in an airtight container andthrow it into the garbage. Call [facility]: [phone] to be sure your drugs can be [...] been reviewed and explained to me and I,SOFYA EMMA Jorge A understand my current condition and have read and understand these discharge instructions. I have received a written copy of the plan/instructions. If I have questions, I am aware that I should contactmy doctor. 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 [employer] message sent by Dr. Cheung to the patient. ANDRE Adan MD to Emma Cowart 1:35 PM Hello Monitor shows 2 runs of SVT benign arrhythmia SHORT LIVED We could watch this for now . If bothersome we could use meds claudy Last read by Emma Cowart at 2:25 PM on 02/24/2023. * Telephone Encounter - Michaela Luevano - 02/24/2023 1:30 PM EDT Images from the original note were not included. Tomasz Garay MD 2 short episodes of SVT medical therapy claudy * Telephone Encounter - Michaela Luevano - 02/21/2023 9:50 AM EDT I was talking to patient about scheduling and she notes that she has not heard back on her ZIO results. Ok to send [employer] message. Please review and advise. Michaela Luevano MA documented in this encounterMetrohealth [facility]06-15-2023 History of Present illness Narrative* Vargas Mujica PA-C - 02/09/2023 3:00 PM EDT Subjective Patient ID: Emma Cowart is a 37 y.o. female who [...] floor instability. We discussed follow up with GIVER for eval but consider pelvic floor therapy Preventative Testing mammo - suggest age 40 DEXA - suggest age 50-55 colonoscopy - suggest age 45-50 PAP OARRS: Vargas Mujica PA-C on 02/09/2023 3:43 PM I have personally reviewed the OARRS report for Emma Cowart. I have considered the risks of abuse, dependence, addiction and diversion and I believe that it is clinically appropriate for Emma Cowart to be prescribed this medication Is the patient prescribed a combination of a benzodiazepine and opioid? No Last Urine Drug Screen / ordered today: Yes Recent Results (from the past 23451 hour(s)) OPIATE/OPIOID/BENZO PRESCRIPTION COMPLIANCE Collection Time: 05/25/21 [...] Better Patient Active Problem List Diagnosis AAT (zxgrl-3-fqnnalzyhbo) deficiency (CMS/HCC) Anxiety Abnormal EKG Bilateral hand [...] symptoms - plans to follow up with GIVER first - discussed pelvic floor thearpy In [...] labs and med check documented in this encounterOhio[facility] Work Phone: [phone]) 831-783305-15-2023 Miscellaneous Notes* Telephone Encounter - Michaela Luevano [...] Luevano MA * Telephone Encounter - Kayleigh Alhaji Pss - 01/02/2023 8:43 AM EDT Patient calling in stating she was seen in [facility] care for heart palpitations, and HR in 50's. Also having dizzy spells. EC thought she should get a holter monitor but wanted her to follow up with her geospatial analyst. First available isn't until July. Please advise. documented in this encounterMetrohealth [facility] Center05-07-2023 History of Present illness Narrative* Shahid Gamble APRN.DELPHI DEVELOPER - 01/01/2023 9:23 AM EDT Subjective HPI HPI Emma Cowart is a 37 year old female [...] 2 days PAST MEDICAL HISTORY Diagnosis Date Terqa-5-zqxmojexpkf deficiency (HCC) Cardiac dysrhythmia, unspecified 2007 Depressive [...] coils in fallopian tubes S BALLOON,UTERINE ABLATION 58422 2009 SHX CARDIAC RADIOFREQUENCY ABLATION 2018 ventricular [...] provider/curette Discussed proper ear hygiene. Shahid Gamble APRN.DELPHI DEVELOPER documented in this encounterMetrohealth [facility] Center03-14-2023 Instructions* Patient Instructions* JUNE Rodriguez - 11/08/2022 11:57 AM EDT Rest, ice, elevation. Return to ED with new/worsening symptoms. documented in this encounterMetrohealth [facility] Center03-14-2023 History of Present illness Narrative* Agata Goldman RT(R) - 11/08/2022 11:30 AM EDT Radiology Service Progress Note PATIENT NAME: Emma Cowart DATE OF SERVICE: November 08, 2022 [...] DATA: Not applicable SIGNED BY: RT Regine(Duncan) November 08, 2022 11:35 AM documented in this encounterMetrohealth [facility] Center03-14-2023 History of Present illness Narrative* JUNE Rodriguez - 11/08/2022 11:17 AM EDT Images from the original note were not included. This note was created using NoteWriter. Subjective Emma Cowart is a 37 year old female. [...] other complaints PAST MEDICAL HISTORY Diagnosis Date Rykva-7-aaraivsznsa deficiency (HCC) Cardiac dysrhythmia, unspecified 2007 Depressive [...] coils in fallopian tubes S BALLOON,UTERINE ABLATION 25087 2009 SHX CARDIAC RADIOFREQUENCY ABLATION 2018 ventricular [...] ER evaluation. JUNE Rodriguez documented in this encounterMetrohealth [facility] Center02-20-2023 Chief complaint Narrative - Reported* An interactive audio and video telecommunication system which permits real time communications between the patient (at the originating site) and provider (at the distant site) was utilized to providethis telehealth service. * Verbal consent was requested and obtained from EMMA COWART on this date, 10/17/2022 10:00 AM , for a telehealth visit. * POS HOME COVID TEST THIS MORNING. C/O MCKINNEY,COUGH, PALPITATIONS, SINUS CONGESTION, RUNNY NOSE, SORE THROAT. -[facility] Work Phone: [phone]) 597-523902-16-2023 History of Present illness Narrative* Patient presents [...] have personally reviewed the OARRS report for EMMA COWART. I have considered the risks of abuse, dependence, addiction and diversion. * Last urine drug screening date/ordered today: 05/25/2021 * Date of the last Controlled Substance Agreement: 05/25/2021 -[facility] Work Phone: [phone]) [phone] Miscellaneous Notes* Telephone Encounter - Saranya Breaux [...] 10, 2022 8:26 AM documented in this encounterMetrohealth [facility] Center01-26-2023 History of Present illness Narrative* Ami Delgado APRN.[facility] - 09/22/2022 1:38 PM EST CC: Patient presents with: Cough: Pt reported chest congestion, intermittent SOB, x1 wk. HPI: Emma Cowart is a 37 year old female [...] air exchange PAST MEDICAL HISTORY Diagnosis Date Mohja-6-dujdfgwdarp deficiency (HCC) Cardiac dysrhythmia, unspecified 2007 Depressive [...] coils in fallopian tubes S BALLOON,UTERINE ABLATION [id number] 2009 SHX CARDIAC RADIOFREQUENCY ABLATION 2018 ventricular [...] symptoms occur. Patient agreeable to treatment plan. Ami Delgado APRN.CNP documented in this encounterMetrohealth Main [facility] Center01-22-2023 History of Present illness Narrative* VIRTUAL VISIT DUE TO COVID19 . * COUGH WITH CHEST CONGESTION AND SOB ON EXERTION X 4 DAYS . HAD NEGATIVE HOME COVID TEST 3 DAYS AGO.DIDN'T GET THE COVID VACCINES. [facility] Work Phone: [phone]) 781-895201-04-2023 Chief complaint Narrative - Reported* An interactive audio and video telecommunication system which permits real time communications between the patient (at the originating site) and provider (at the distant site) was utilized to providethis telehealth service. * Verbal consent was requested and obtained from EMMA SOFYA on this date, 08/31/2022 08:40 AM , for a telehealth visit. * Pt vv for er f/u pleurisy-shaun. States she still feels SOB occasionally and chest pain. Serves no further complaints -[facility] Work Phone: [phone]) 935-718712-21-2022 History of Present illness Narrative* Patient presents [...] have personally reviewed the OARRS report for EMMA COWART. I have considered the risks of abuse, dependence, addiction and diversion. * Last urine drug screening date/ordered today: 05/25/2021 * Date of the last Controlled Substance Agreement: 05/25/2021 -[facility] Work Phone: [phone]) 914-755812-19-2022 Miscellaneous Notes* Telephone Encounter - Kelly Salgado APRN.CNP - 08/15/2022 3:41 PM EST No other recommendations for patient from a bariatric standpoint. This is something that should continue to be managed by her PCP. Please have her continue to follow up with her PCP for this. Kelly Salgado APRN.CNP documented in this encounterMetrohealth Main Campus [facility] Center11-15-2022 Miscellaneous Notes* Telephone Encounter - Janett Harris-Nurse - 07/12/2022 9:10 AM EST Called to schedule for 6 mo p/o appt. No answer, LVM 6 Month P/O- -SLEEVE 04/11/2022 documented in this encounterMetrohealth Main Campus [facility] Center11-15-2022 History of Present illness Narrative* Marjan Eddy APRN.CNP - 07/12/2022 8:32 AM EST BARIATRIC SURGERY CLINIC FOLLOW UP NOTE DISTANCE HEALTH VISIT This Team Access Model visit is a virtual encounter. It required patient- provider interaction for the medical decision making as documented below. Consent was obtained to complete today's distance health visit. Name: Emma Cowart Index Surgery Date of Surgery: 04/11/2022 Surgeon: Dr. Chakraborty Surgical Procedure: Sleeve gastrectomy Pre-surgical weight: 406 lb Other Bariatric Surgeries None Visit: 3 month Today's Visit: Wt 148.8 kg (328 lb) BMI 52.94 kg/m2 BMI 52.94 kg/(m^2) Last Visit: Wt: 148.8 kg (328 lb) BMI: 52.94 kg/(m^2) Total weight loss: 78 lb [place] weight: 70.3 kg (154 lb 14.5 oz) Excess weight: 252 lb % of excess body weight lost: 30.9% COMPLICATIONS SINCE LAST VISIT?: NONE DIET INTAKE: Phase III Emma is doing great. She is meeting fluid [...] is improvement since weight loss. Marjan Eddy APRN.SWATI Total time in direct patient contact = 20 min. Greater than 50% of the time was spent in counselingand/or coordination of care. Medical Decision Making: Problems: Moderate: 2+ stable chronic illnesses Data: Unique test result(s) reviewed: 1 Unique test(s) ordered: 1 Risk: Minimal: Minimal risk from testing/treatment Medical Decision Making Level: 3 - Low documented in this encounterMetrohealth Main Campus [facility] Center11-15-2022 History of Present illness Narrative* Audrey Spivey, NELLA - 07/12/2022 7:46 AM EST 3 Month Post-op--Visit conducted via Vulevú (audio and visual) d/t COVID 19 Emma Cowart 37 year old female Ht 167.6 cm (5' 6) Wt (!) 148.8 kg (328 lb) LMP 07/11/2016 BMI 52.94 kg/mper pt report SG 04/11/22 Ralph 77# lost since surgery 31%EWL based on [...] support group: encouraged attendance Vitamins--per manual: MVI: [employer] bariatric with 18mg iron, morning B12: 1000mcg [...] Pt is maintaining a food journal daily, Tuizzi jimbo. Pt presents 2 months post SG. Within [...] may contain grammatical errors. documented in this encounterMetrohealth Main [facility] Center11-07-2022 Miscellaneous Notes* Addendum Note - Kelly Salgado APRN.CNP - 2022 10:52 AM ESTAddended by: KELLY SALGADO on: 2022 10:52 AM Modules accepted: Orders * Telephone Encounter - Johanny Wilkins MA - 2022 8:31 AM EST Please advise if you would be okay with adding this lab. Johanny Wilkins MA 2022 8:32 AM documented in this encounterMetrohealth Main [facility] Center10-07-2022 History of Present illness Narrative* Amirah Flores RD - 06/03/2022 10:00 AM EDT 7 Week Post-Op This patient encounter was completed virtually due to COVID-19 (audio/visual) using a secure, HIPPAcompliant video chat software program with the patient's consent. Surgery Date/Surgeon:04/11/22 RADHA, Dr. Ralph Cowart 36 year old female Wt (!) [...] intake: Yes 24 hr recall: 06/02 B: english yogurt (20g) L: chicken salad - ~(21g) [...] her sister also had surgery Vitamins: MVI: [employer] bariatric with 18mg iron capsule - did [...] minutes OR 150 min/week (walking, chair exercises, [employer] INCF[employer] youtube videos)--consider 10 minute intervals journal daily and bring to all appointments--maintain at least 5-7x/week meet 60-90g protein and 64oz of fluids per day [employer] bariatric 18mg iron in the morning + 2.5-3, 500mg calcium citrate soft chews split between lunch and dinner Total time in direct patient contact = 20 min. Greater than 50% of the time was spent in counselingand/or coordination of care. Amirah Flores RD This note was generated using voice recognition technology and may contain grammatical errors. documented in this encounterMetrohealth Main [facility] Center10-06-2022 Miscellaneous Notes* Telephone Encounter - Janett Harris-Nurse - 06/02/2022 10:01 AM EDT Called to schedule 3 Mo P/O , vm full unable to leave message documented in this encounterMetrohealth Main [facility] Center10-06-2022 History of Present illness Narrative* Marjan Eddy APRN.DELPHI DEVELOPER - 06/02/2022 9:34 AM EDT BARIATRIC SURGERY CLINIC FOLLOW UP NOTE DISTANCE HEALTH VISIT This Team Access Model visit is a virtual encounter. It required patient- provider interaction for the medical decision making as documented below. Consent was obtained to complete today's distance health visit. Name: Emma Cowart Index Surgery Date of Surgery: 04/11/2022 Surgeon: Dr. Chakraborty Surgical Procedure: Sleeve gastrectomy Pre-surgical weight: 406 lb Other Bariatric Surgeries None Visit: 6 weeks Today's Visit: Wt 159.7 kg (352 lb) BMI 56.81 kg/m2 BMI 56.81 kg/(m^2) Last Visit: Wt: 176 kg (388 lb) BMI: 62.62 kg/(m^2) Total weight loss: 54 lb [place] weight: 70.3 kg (154 lb 14.5 oz) Excess weight: 252 lb % of excess body weight lost: 21.4% COMPLICATIONS SINCE LAST VISIT?: NONE DIET INTAKE: Phase III Emma is doing great. She is meeting fluid and protein goals without difficulty. She denies nausea, vomiting, diarrhea, constipation, acid reflux symptoms, dysphagia-like symptoms, melena, BRBPR. She is taking vitamins and medications as directed. She has been riding her bike outside for exercise. DAILY SUPPLEMENTS: Calcium: Calcium Citrate w/ vitamin D (1200 - 1500mg) Multivitamin & Minerals: 1 per day- [employer] 18 capsule Iron Supplement: 18mg in MVI [...] counselingand/or coordination of care. documented in this encounterMetrohealth [facility] Center08-31-2022 Miscellaneous Notes* Telephone Encounter - Sarah Brown Ma - 04/27/2022 10:12 AM EDT Pharmacy sent a [employer] message requesting the following refill. Requested Prescriptions Pending Prescriptions Disp Refills pantoprazole DR (PROTONIX) 40 mg tablet [Pharmacy Med Name: PANTOPRAZOLE SOD DR 40 MG TAB] 90 tablet 1 Sig: TAKE 1 TABLET BY MOUTH EVERY DAY Next Appointment: 06/02/2022 Patient Phone numbers: [phone] (home) Request is for script(s) to be escript to pharmacy. Sarah Brown Ma documented in this encounterMetro[facility]08-25-2022 History of Present illness Narrative* Audrey Spivey, NELLA - 04/21/2022 1:30 PM EDT 10 days Post-Op--Visit conducted via [employer] Zoom (audio and visual) d/t COVID 19 Emma Cowart Surgery Date: 04/11/22 17# lost since [...] fatigue Exercise: shopping, ADLs Vitamins--per manual: MVI: [employer] bariatric with 18mg iron chewable (does ok [...] protein and 64oz of fluids per day [employer] bariatric 18mg iron in the morning + [...] may contain grammatical errors. documented in this encounterMetrohealth [facility] Center08-24-2022 Miscellaneous Notes* Telephone Encounter - Saranya Breaux RN - 04/20/2022 1:02 PM EDT Images from the original note were not included. MD Saranya Álvarez RN; Marjan Eddy APRN.DELPHI DEVELOPER I attempted to call and discuss with [...] 20, 2022 1:04 PM documented in this encounterMetrohealth [facility]08-23-2022 History of Present illness Narrative* RT Edison(R) [...] RADIOLOGY DEPARTMENT: CT; Exam(s) Completed: Abdomen/Pelvis SIGNATURE: KYLE Hogan) PATIENT NAME: Emma Cowart DATE: April 19, 2022 TIME: 4:04 PM documented in this encounterMetrohealth [facility]08-23-2022 History of Present illness Narrative* Marjan Eddy, RADAR TECHNICIAN.[facility] - 04/19/2022 10:24 AM EDT BARIATRIC SURGERY CLINIC FOLLOW UP NOTE Name: Emma Jules Sofya Index Surgery Date of Surgery: 04/11/2022 Surgeon: Dr. Chakraborty Surgical Procedure: Sleeve gastrectomy Pre-surgical weight: 406 lb Other Bariatric Surgeries None Visit: 8 days Today's Visit: Wt 176.2 kg (388 lb 6.4 oz) BMI 62.69 kg/m2 BMI 62.69 kg/(m^2) Last Visit: Wt: 182.3 kg (402 lb) BMI: 64.88 kg/(m^2) Total weight loss: 18 lb [place] weight: 70.3 kg (154 lb 14.5 oz) [...] Dr. Davila, covering surgeon. documented in this encounterMetrohealth [facility] Center08-22-2022 Miscellaneous Notes* Telephone Encounter - Jennifer Anthony - 04/18/2022 4:14 PM EDT Patient called pain in side seeing Marjan 04/19/2022 will see her tomorrow documented in this encounterMetrohealth [facility] Center08-18-2022 Miscellaneous Notes* Telephone Encounter - Marjan Eddy APRN.CNP - 04/14/2022 3:46 PM EDT I contacted Emma Cowart for post-operative follow up s/p Sleeve gastrectomy with Dr. Chakraborty on04/11/22 1. Do you have someone to care for you now that you are home?YES 2. Are you having pain now that is not relieved by your pain medications?NO 3. Are you able to drink the recommended daily amount of fluids (48 ounces minimum/day) and protein(60-80 grams/day) as prescribed by the payloader machine operator or nutritional counselor? YES 4. Are you taking the vitamins and minerals as prescribed? YES 5. Do you have the software validation technician number to contact your surgeon if you [...] you have an appointment to see a payloader machine operator or nutritional counselor in the next [...] concerns Marjan Eddy APRN.SWATI documented in this encounterMetro[facility] Center08-16-2022 Miscellaneous Notes* Telephone Encounter - Saranya Breaux [...] to call into the bariatric office at [phone], hit option #2 for the post-op line with any questions or concerns. Patient verbalized understanding and allquestions answered. Patient reports some pain to right abdominal-hip area, left shoulder, epigastric area. She was switched to oxycodone by Dr Chakraborty. Patient is nausea free, has a patch behind right ear. She is eager to be discharged home today. Saranya Breaux RN April 12, 2022 1:10 PM documented in this encounterMetrohealth [facility]08-10-2022 Miscellaneous Notes* Telephone Encounter - Jennifer Anthony - 04/06/2022 4:08 PM EDT Called patient to let them know about pre testing tomorrow LVM documented in this encounterMetro[facility]08-09-2022 Miscellaneous Notes* Telephone Encounter - Saranya Breaux [...] It could just be incidental. Marjan Eddy APRN.SWATI documented in this encounterMetrohealth [facility]08-08-2022 Miscellaneous Notes* Telephone Encounter - Sarah Brown [...] it? Sarah Brown Ma documented in this encounterMetrohealth [facility] Center08-04-2022 Instructions* Patient Instructions* Marjan Eddy APRN.CNP - [...] into small incisions (cuts) made inyour abdomen ([facility]). The laparoscope is a long metal [...] your medicine. Do not take any medicines, pcns-mfb-cqkmaiq drugs, vitamins, herbs or food supplements without [...] be off your narcotic pain medications. Sexual [place] (sex): You may have sex in approximately [...] weight loss surgery, contact the following: o [place] [address], [place], [place] www.obesity.org o [place] [employer] (ASMBS) [address] [address] www.asmbs.org o See the attached support group meeting schedule SEEK CARE IMMEDIATELY IF: o You have sudden chest pain, trouble breathing, or are coughing up blood. Call 911 or 0 (Business Affairs Manager)to get to the nearest hospital or clinic. [...] gastrectomy or your care. documented in this encounterMetrohealth [facility] Center08-04-2022 History of Present illness Narrative* Marjan Eddy APRN.CNP - 03/31/2022 12:53 PM EDT BARIATRIC SURGERY CLINIC FOLLOW UP NOTE DISTANCE HEALTH VISIT This Team Access Model visit is a virtual encounter. It required patient- provider interaction for the medical decision making as documented below. Consent was obtained to complete today's distance health visit. HPI: Emma Cowart a 36 year old female is scheduled for Lap Sleeve Gastrectomy with Dr. Chakraborty on 04/11/22. She denies recent illnesses, recent hospitalizations, recent ED visits. Denies symptoms of COVID-19. 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 Chakraborty- Planned SG- will be on Lovenox x [...] baby ASA up until surgery per Dr Chakraborty - Will hold baby ASA 4 weeks post-op while on Lovenox - ENOXAPARIN 60 MG/0.6 ML SUBCUTANEOUS SYRINGE 3. Elevated liver enzymes - ICD9: 790.5, ICD10: R74.8 - Refusing tylenol DOS and after due to elevated liver enzymes PST scheduled 04/04 Prescription for lovenox sent to pharmacy Still need clearance from PCP Marjan Eddy, ALF.DELPHI DEVELOPER Preoperative instructions discussed with the patient in [...] information was sent to the patient through [employer] message as well. I spent a total of 30 minutes on the date of the service which included preparing to see the patient, xuct-ua-apar patient care, completing clinical documentation, obtaining and/or reviewing separately obtained history, counseling and educating the patient/family/caregiver, ordering medications, uri ts, or procedures and care coordination (not separately reported). Medical Decision Making: Problems: Moderate: 2+ stable chronic illnesses Data: Assessment requiring an independent historian(s) Risk: Moderate: Drug management Medical Decision Making Level: 4 - Moderate documented in this encounterMetrohealth [facility]07-28-2022 History of Present illness Narrative* Marjan Eddy [...] baby ASA prior to surgery per Dr. 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 Her father has lgbmk-3-jnpzfkghaqk deficiency and underwent a liver transplant. She [...] radiofrequency ablation PAST MEDICAL HISTORY Diagnosis Date Achix-6-pdfuthlulpy deficiency (HCC) Cardiac dysrhythmia, unspecified 2007 Depressive [...] coils in fallopian tubes S BALLOON,UTERINE ABLATION 01231 2009 SHX CARDIAC RADIOFREQUENCY ABLATION ventricular TONSILLECTOMY [...] baby ASA prior to surgery per Dr. Chakraborty- Planned SG- will be on Lovenox x [...] On PPI Tylenol: will require Plan IMPRESSION: Emma Cowart is a 36 year old year old female who presents for consideration of bariatric surgery (Body mass index is 65.37 kg/m .). She does meet the criteria for a surgical weight loss procedure according to NIH guidelines. The plan of treatment for Emma is to continue with the consultations and [...] with liver biopsy. - Due to the Covid- pandemic this surgical case had been delayed/postponed. At this point in timeelective surgical cases are being restarted based on recommendations of the Governor of the [facility]. We have extensively discussed the nature of [...] has a history of DVT 3. AAT (mzhyp-8-xquzyethfue) deficiency (HCC) - ICD9: 273.4, ICD10: E88.01 [...] - Keep a food journal 5-7x/week (consider [employer] or [employer] jimbo) and demonstrate meeting protein goal (60-90g protein for females, 70-105g protein for males)- Lean meats, fish, low fat dairy - cottage cheese, Kyrgyz yogurt, light yogurt, cheese, ricotta cheese, nuts, [...] sequelae has been received by individual. Tata Chakraborty MD Advanced Laparoscopic and Bariatric Surgery Medical [...] done virtually as approved currently by the Federal Government which has transiently waved [facility] requirements. The patient agreed to this virtual visit documented in this encounterMetrohealth [facility] Center07-20-2022 History of Present illness Narrative* Amirah Flores, NELLA - 03/16/2022 11:30 AM EDT Emma Cowart This patient encounter was completed virtually [...] doses 24 hr recall: 03/15 B: 08/29 veggbrandie rodel L: mini supreme pizza D: cheeseburger - no bun, w/ L/Tpickles S: nathanael cup F: 64 oz Protein per recall:per pt jimbo:56g Protein intake: 02/28, 03/01, 03/02, 03/05, 03/06: [...] at least 5 days per week via [employer] jimbo. Per 24 hr recall, meeting lower range [...] with more than 50% of the total jrbd-vt-etoy time of the visit in counseling / coordination of care. Amirah Flores RD This note was generated using voice recognition technology and may contain grammatical errors. documented in this encounterMetrohealth [facility] Center07-19-2022 Miscellaneous Notes* Telephone Encounter - Katie Alvarez MA - 03/15/2022 8:34 AM EDT Called patient for pre-checkin. No answer, and no voicemail set up or it was full Katie Alvarez MA March 15, 2022 documented in this encounterMetrohealth [facility] Center06-21-2022 History of Present illness Narrative* Marjan Eddy APRN.[facility] - 02/15/2022 9:33 AM EDT BARIATRIC SURGERY CLINIC FOLLOW UP NOTE DISTANCE HEALTH VISIT This Team Access Model visit is a virtual encounter. It required patient- provider interaction for the medical decision making as documented below. Consent was obtained to complete today's distance health visit. HPI: Emma Cowart a 36 year old female for presents for medically supervised weight loss treatment of her obesity related co morbidities. This individual presents for month 10 of 6 required visits completed as a virtual telephone encounter Emma Cowart weight calculation has decreased by 10# [...] chart updated): PAST MEDICAL HISTORY Diagnosis Date Csghw-2-blwtklumpaq deficiency (HCC) Cardiac dysrhythmia, unspecified 2007 Depressive [...] imaging results The plan of treatment for Emma Cowart is Further Work-up: Surgical procedure interested [...] baby ASA prior to surgery per Dr. Chakraborty- Planned SG- will be on Lovenox x [...] clearance from nutrition and pulmonology. Follow-up with [facility] next month to review clearance status. She is scheduled in March to re-consent with Dr. Chakraborty. Marjan Eddy APRN.DELPHI DEVELOPER Total time in direct patient contact = 13 min. Greater than 50% of the time was spent in counselingand/or coordination of care. This note was generated using voice recognition technology and may contain grammatical errors. documented in this encounterMetrohealth Main Campus [facility] Center06-21-2022 History of Present illness Narrative* Audrey Spivey, RD - 02/15/2022 9:00 AM EDT Emma Cowart--Visit conducted via [employer] (audio and visual) d/t COVID 19 Month [...] meals, <1x/week (jimbo) 24 hr recall: B: [employer] protein shake--42g protein L: toast w/ kerrygold [...] scheduled for re-consent appt in March per [facility]LER note 02/15/22. Total time in direct patient contact = 29 minutes. Greater than 50% of the time was spent in counseling and/or coordination of care. Audrey Spivey RD This note was generated using voice recognition technology and may contain grammatical errors. documented in this encounterMetrohealth Main [facility] Center06-20-2022 Miscellaneous Notes* Telephone Encounter - Laly Nguyen RN - 02/14/2022 4:00 PM EDT I did one and sent it to their office. Thanks, Hung Emerson MD Message text * Telephone Encounter - Laly Nguyen RN - 02/09/2022 1:52 PM EDT Patient is requesting a clearance letter for bariatric surgery sent to Dr Chakraborty . Laly Nguyen RN documented in this encounterMetrohealth [facility] Center06-16-2022 Miscellaneous Notes* Telephone Encounter - Deanna Hale Asst - 02/10/2022 3:37 PM EDT Order for pulmonary [facility]. Deanna Shanelle Adm Asst documented in this encounterMetrohealth Main [facility] Center06-15-2022 Miscellaneous Notes* Telephone Encounter - Laly Nguyen [...] Thanks, Hung Emerson MD documented in this encounterMetrohealth Main [facility] Center06-14-2022 Miscellaneous Notes* Telephone Encounter - Marjan Eddy APRN.CNP - 02/08/2022 1:58 PM EDT Noted. Will communicate this to Dr. Chakraborty for surgical planning. Thank you! Marjan Eddy APRN.CNP * Telephone Encounter - Brooks Soto MD - 02/08/2022 12:01 PM EDT I signed her GI risk stratification for bariatric surgery. I suggest she get another set of LFT's before and likely needs iver biopsy if possible during the surgery. It would be beneficial. documented in this encounterMetrohealth Main [facility] Center06-08-2022 Miscellaneous Notes* Telephone Encounter - Lisa Esparzauber - 02/02/2022 8:49 AM EDT Images from the original note were not included. Marjan Eddy, RADAR TECHNICIAN.DELPHI DEVELOPER P [facility] Bariatric Surgery Pool Please request pulmonary/sleep clearance with OK to not use CPAP for mild BRISEYDA before surgery. We did have the OK from sleep med in from 2019. Please request clearance from gastroenterology FAXED. Brooks Soto MD Gastroenterology 02/02/2022 End 02/02/22 ; Hung Emerson MD Pulmonary and Critical Care Medicine 02/02/2022 End 02/02/22 ; Lisa Storey Assistant Principal Bariatric Dept. P: [phone] Ext [phone] documented in this encounterMetrohealth Main [facility] Center06-08-2022 History of Present illness Narrative* RT Kay(R) - 02/02/2022 8:45 AM EDT Radiology Service Progress Note PATIENT NAME: Emma Cowart DATE OF SERVICE: February 02, 2022 [...] 02, 2022 7:23 AM documented in this encounterMetrohealth Main Campus [facility] Center06-08-2022 History of Present illness Narrative* Mary Laguerre - 02/02/2022 6:54 AM EDT PULM FUNCTION SMARTBLOCK: Provider: Hung Emerson MD Assisting Tech: Mary Laguerre Spirometry w/BD: 1 DLCO: 1 LV - Box: 1 System: [id number] documented in this encounterMetrohealth Main [facility] Center05-24-2022 History of Present illness Narrative* Marjan Eddy, RADAR TECHNICIAN.[facility] - 01/18/2022 9:25 AM EDT BARIATRIC SURGERY CLINIC FOLLOW UP NOTE DISTANCE HEALTH VISIT This Team Access Model visit is a virtual encounter. It required patient- provider interaction for the medical decision making as documented below. Consent was obtained to complete today's distance health visit. HPI: Emma Cowart a 36 year old female for presents for medically supervised weight loss treatment of her obesity related co morbidities. This individual presents for month 9 of 6 required visitscompleted as a virtual telephone encounter Emma Cowart weight calculation is unchanged since her [...] - allergies PAST MEDICAL HISTORY Diagnosis Date Jwqcd-3-dayrtnwphlg deficiency (HCC) Cardiac dysrhythmia, unspecified 2007 Depressive [...] imaging results The plan of treatment for Emma Cowart is Further Work-up: Surgical procedure interested [...] baby ASA prior to surgery per Dr. Chakraborty- Planned SG- will be on Lovenox x [...] weight gain and updated visit with Dr. Chakraborty due to weight sigrid and medical changes [...] She needs an updated visit with Dr. Chakraborty due to weight gain and changes to medical history. Follow up with [facility] 4 weeks to review clearance status. Marjan Eddy APRN.DELPHI DEVELOPER Total time in direct patient contact = 14 min. Greater than 50% of the time was spent in counselingand/or coordination of care. This note was generated using voice recognition technology and may contain grammatical errors. documented in this encounterMetrohealth Main [facility] Center05-20-2022 Miscellaneous Notes* Telephone Encounter - Laly Nguyen [...] of the gene however. documented in this encounterMetrohealth Main Campus [facility] Center05-19-2022 History of Present illness Narrative* Brooks Soto MD - 01/13/2022 10:56 AM EDT HPI: Emma Cowart is a 36 year old female who presents for Established Patient Follow-Up. Pt is herefor inc liver enzymes via referral from Dr. Chakraborty's office as she has seen pt for [...] dysphagia but has had endoscopy w Dr. Chakraborty x 2. Has had some gastritis in past, and has been on pantoprazole. No bleeding, but may have some constipation. Hep C and hep B have been neg. Recently. Pt's F had OLT for TORRES vs T-3-kieytzgyzty def. Has had hep A and B [...] DIRECTED PRN PAST MEDICAL HISTORY Diagnosis Date Bsikp-3-ciisbnskzqj deficiency (HCC) Cardiac dysrhythmia, unspecified 2007 Depressive [...] 01/08/2008 EXC/DSTRJ LINGUAL TONSIL ANY METHOD SPX 2004 LAPAROSCOPIC UTERINE NERVE ABLATION 2011 LIVER BIOPSY 2008 MIDLINE CATHETER 09/21/2018 PAST SURGICAL HISTORY OF 2009 spring coils in fallopian tubes S BALLOON,UTERINE ABLATION 50337 2009 SHX CARDIAC RADIOFREQUENCY ABLATION ventricular TONSILLECTOMY [...] surgery. Brooks Soto MD documented in this encounterMetrohealth Main Campus [facility] Center05-09-2022 History of Present illness Narrative* Hung Emerson MD - 01/03/2022 4:02 PM EDT PATIENT NAME: Emma Cowart DATE OF SERVICE: January 03, 2022 PRIMARY CARE PHYSICIAN: JUNE Deshpande, PA CARE TEAM: Patient Care Team: JUNE Deshpande as PCP - General (Internal Medicine) Joshua Wall (Hist) Neel as Specialty Cyber Engineer (Cardiology) Edith Taylor MD as Specialty Cyber Engineer (Gastroenterology) Bonita Naqvi as Specialty Cyber Engineer (Rheumatology) Referral No as Referring (Cardiology) Eric Crooks MD as Primary Staff Physician (Cardiology) Tomasz Garay MD (Cardiology) HISTORY OF PRESENT ILLNESS: Emma Cowart is a 36 year old woman [...] however, her father underwent liver transplantation at [facility] main [facility] for what was thought to be TORRES initially, but is now thought to be due to alpha 1-antitrypsin deficiency. She denies frequent or recurrent respiratory tract infections including pneumonias, sinus infections, and other upper respiratory infections. Patient is barely able to do all her daily activities (eg, scrap cutter, shopping, meal preparation, work, etc.) at a [...] MEDICAL HISTORY: PAST MEDICAL HISTORY Diagnosis Date Lqbnq-2-tdnsizkqfdh deficiency (HCC) Cardiac dysrhythmia, unspecified 2007 Depressive [...] coils in fallopian tubes S BALLOON,UTERINE ABLATION 50941 2009 SHX CARDIAC RADIOFREQUENCY ABLATION ventricular TONSILLECTOMY [...] 10 mL INTRAVENOUS DIRECTED PRN Johanny Marmolejo APRN.DELPHI DEVELOPER LABS/IMAGING/DIAGNOSTIC STUDIES: CXR/CT: 12/19/20 CHEST X-RAY IMPRESSION: [...] addressed. Hung Emerson MD documented in this encounterMetrohealth Main [facility] Center05-02-2022 Miscellaneous Notes* Telephone Encounter - Tiffanie Small [...] name and Date of (Y/N): Y Patient: Emma Cowart Date of : 1985 Provider for this encounter: JUNE Deshpande, PA Reason for the call/escalation: Per tool, elevate to office to schedule for elevated liver enzymes Was Patient Referred to [facility]/Seek Emergency Treatment (Y/N): N Did Patient Agree (Y/N): N/A Was An Attempt Made To Transfer The Patient To The Office (Y/N): N Were You Able To Reach Someone At The Office (Y/N): N/A If Yes - Patient Was Transferred To (Caregivers Name): N If No - Which [facility] Leadership Pattern Assembler Did You Speak With Regarding This Patient: [...] other than patient: N/A Best contact number: [phone] Thank you, Reynaldo Jasso December 27, 2021 11:51 AM documented in this encounterMetrohealth [facility] Center05-02-2022 History of Present illness Narrative* Amirah Flores RD - 12/27/2021 8:00 AM EDT Emma Cowart This patient encounter was completed virtually [...] exercise 24 hr recall: B: skipped L: serbian fries D: none S: none F: 64 [...] presents for a nutrition follow up per [facility] request due to weight regain (29# from 05/26/21). Previously cleared from nutrition on 05/26 (also last time patient met with RD). Will update clearance status today. Patient is tracking 3 days/week via physical food journal, was previously using [employer] jimbo. She is able to calculate her total [...] taking flintstones complete MVand has already purchased [employer] 18 for after surgery. Plan: follow up [...] with more than 50% of the total jzgs-ur-unph time of the visit in counseling / coordination of care. Amirah Flores RD documented in this encounterMetrohealth Main [facility] Center04-29-2022 Miscellaneous Notes* Telephone Encounter - Talya Jackson RN - 12/24/2021 1:38 PM EDT Called patient and advised that she needs a follow-up appointment with Dr. Taylor. Message has beensent to Scarlett Amdaor survey technologist to try to find patient a sooner appointment. Talya Jackson RN December 24, 2021 1:40 PM * Telephone Encounter - Edith Taylor MD - 12/24/2021 1:14 PM EDT Alta I haven't seen her since 08/2017 (so now > 4 years) These are issues that really require a clinic visit Can you please return the call, and let the patient know we will try to fit her in Thanks * Telephone Encounter - Analilia Ho - 12/24/2021 10:59 AM EDT Emma Cowart (Self) [phone] (H) Remove By Analilia Ho Patient called to discuss possible having a diagnosis of Hepatitis. She most recently had a ultrasound with enlarged liver, she would like new lab orders to be placed in epic. She would like a rt call to discuss She is aware she has not been seen since 2018 documented in this encounterMetrohealth Main [facility] Center04-29-2022 History of Present illness Narrative* Marjan Eddy, RADAR TECHNICIAN.DELPHI DEVELOPER - 12/24/2021 8:53 AM EDT BARIATRIC SURGERY CLINIC FOLLOW UP NOTE HPI: Emma Cowart a 36 year old female for presents for medically supervised weight loss treatment of her obesity related co morbidities. This individual presents for month 8 of 6 required visitscompleted as a virtual telephone encounter Emma Cowart weight calculation has increased by 5# [...] remain elevated. 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 Continues to have mild RYAN which is lingering from COVID 19 diagnosis. She completed 30 days holtermonitor and results were unremarkable- she has been cleared by cardiology. HISTORY REVIEWED (electronic chart updated): - medical history - medications - allergies PAST MEDICAL HISTORY Diagnosis Date Hincr-0-wscoqhbexrl deficiency (HCC) Cardiac dysrhythmia, unspecified 2007 Depressive [...] imaging results The plan of treatment for Emma Cowart is Further Work-up: Surgical procedure interested [...] baby ASA prior to surgery per Dr. Chakraborty- Planned SG- will be on Lovenox x 4 weeks post op then can resume Baby ASA) Immunosuppressive therapy: No Estrogen therapy: No Evaluations Psychology: cleared Nutrition:cleared Education class: complete 05/19/21 Clearances: Cardiac (low /) and PCP (low), pulmonology (+added for COVID) [...] antitrypsin trait. She has a GI at [facility] and plans to reach out [...] unremarkable - Cleared by cardiology 5. COVID-19 long kenuler - ICD9: 139.8, ICD10: U09.9 - Ongoing [...] givenweight gain .Will have her see Dr. Chakraborty for an updated visit before surgery due to changes in medical history since she has consented. Follow up with BRICK HANDLER next month to review these clearances. Marjan Eddy, ALF.DELPHI DEVELOPER Total time in direct patient contact = 20 min. Greater than 50% of the time was spent in counselingand/or coordination of care. This note was generated using voice recognition technology and may contain grammatical errors. documented in this encounterMet[facility]04-15-2022 Miscellaneous Notes* Telephone Encounter - Lisa Storey - 12/10/2021 2:00 PM EDT Please review [facility] internal medicine records in scanned documents received today. Lisa Storey Assistant Principal Bariatric Dept. P: [phone] Ext [phone] documented in this encounterMetro[facility]04-15-2022 Miscellaneous Notes* Telephone Encounter - Meagan Fitzgerald [...] Visit date not found Patient Phone numbers: [phone] (home) Request is for script(s) to be escript to pharmacy. Meagan Fitzgerald MA documented in this encounterMetro[facility]04-07-2022 Miscellaneous Notes* Telephone Encounter - Art Caputo APRN.CNP - 12/02/2021 2:23 PM EDT Reviewed; US showed hepatomegaly (23.2cm) and fatty liver. Will route to surgeon. Art Caputo APRN.CNP * Telephone Encounter - Lisa Storey - 12/02/2021 1:27 PM EDT results received and scanned into chart for review. Lisa Storey Assistant Principal Bariatric Dept. P: [phone] Ext [phone] documented in this encounterMet[facility]04-06-2022 Miscellaneous Notes* Telephone Encounter - Leanne Bass - 12/01/2021 8:52 AM EDT Called 4x- phone rings busy- needs VV with JIMBO EST- ERIK/RALPH/[facility]/6 Months * Telephone Encounter - Johanny Wilkins MA - 12/01/2021 7:57 AM EDT Patient called back in regarding her surgery and would like to schedule. Per Marjan's last note, she needs to be seen in 1 month with her to assess. Please contact the patient to schedule her appointment. Johanny Wilkins MA December 01, 2021 8:00 AM documented in this encounterMetro[facility]04-04-2022 Miscellaneous Notes* Telephone Encounter - Johanny Wilkins MA - 11/29/2021 11:09 AM EDT Contacted the patients PCP to obtain most recent labwork. I left a message in the clinical question mailbox to fax results over or call back with any questions. Johanny Wilkins MA November 29, 2021 11:10 AM documented in this encounterMetro[facility]03-25-2022 Miscellaneous Notes* Telephone Encounter - Lisa Cordelia - 11/19/2021 11:20 AM EDT Updated cardiac clearance sent to Dr. Garay via [employer] and fax. Lisa Storey Assistant Principal Bariatric Dept. P: [phone] Ext [phone] documented in this encounterMetro[facility]03-25-2022 History of Present illness Narrative* Marjan Eddy APRN.SWATI - 11/19/2021 8:41 AM EDT BARIATRIC SURGERY CLINIC FOLLOW UP NOTE DISTANCE HEALTH VISIT This Team Access Model visit is a virtual encounter. It required patient- provider interaction for the medical decision making as documented below. Consent was obtained to complete today's distance health visit. HPI: Emma Cowart a 36 year old female for presents for medically supervised weight loss treatment of her obesity related co morbidities. This individual presents for month 7 of 6 required visitscompleted as a virtual telephone encounter Emma Cowart weight calculation has increased by 10#since her last visit. Her weight is up 10# since her consent visit and 39# since beginning the program in November 2020. Emma's surgery was canceled back in July 2021 [...] - allergies PAST MEDICAL HISTORY Diagnosis Date Fngfv-4-gdmeucnfufk deficiency (HCC) Cardiac dysrhythmia, unspecified 2007 Depressive [...] imaging results The plan of treatment for Emma Cowart is Further Work-up: Surgical procedure interested [...] baby ASA prior to surgery per Dr. Chakraborty- Planned SG- will be on Lovenox x [...] rescheduling surgery - May consider MRCP 5. Wwzjs-3-mpfruawnpdz deficiency (HCC) - ICD9: 273.4, ICD10: E88.01 [...] may contain grammatical errors. documented in this encounterMetro[facility]03-25-2022 Miscellaneous Notes* Telephone Encounter - Katie Alvarez [...] Visit date not found Patient Phone numbers: [phone] (home) Request is for script(s) to be escript to pharmacy. Katie Alvarez MA documented in this encounterMetrohealth [facility] Center12-23-2021 Chief complaint Narrative - Reported* An interactive audio and video telecommunication system which permits real time communications between the patient (at the originating site) and provider (at the distant site) was utilized to providethis telehealth service. * Verbal consent was requested and obtained from EMMA COWATR on this date, 08/19/2021 10:20 AM , for a telehealth visit. * 1 WK FU COVID POSITIVE PT FEELING MUCH BETTER MEDS PRESCRIBED MADE HER SICK SO SHE DIDN'T FINISH THEM STILL VERY FATIGUE [facility] Internal Medicine Work Phone: 1(788) 165-734312-11-2021 History of Present illness Narrative* ALLA JERONIMO PATIENT THAT * VIRTUAL APPOINTMENT BEING PERFORMED DUE TO COVID-19 (CORONAVIRUS) * Presents today for 1 WEEK F/U COVID. C/O SLIGHT NASAL CONGESTION AND FATIGUE REMAINS modifying factors consists of POSITIVE COVID ON 08/07/21 associated symptoms consist of SMELL AND TASTE IS OFF. NOSOB OR CP prior treatment consists of medication STOPPED MEDS [facility] Medicine Work Phone: 1(966) 429-285712-01-2021 History of Present illness [id number] YOF presents with concerns of pain above right breast since having COVID-19 in July 2021. She is concerned about increased generalized edema since COVID-19 infection. Also reports increased SOB since COVID-19. Reports having a moderately severe COVID-19 infection.[facility] Work Phone: 1(740) 253-230604-24-2021 History of Present illness Narrative* Alondra Lu (Rt), Mary - 12/19/2020 10:30 AM EDT Radiology Service Progress Note PATIENT NAME: Emma Cowart DATE OF SERVICE: December 19, 2020 [...] 19, 2020 10:41 AM [place] [address] History of Past illness Narrative* Problem Noted Date Resolved Date Nonspecific abnormal results of liver function s tudy 03/03/2008 04/09/2015 documented as of this encounter (statuses as of 11/19/2021) [place] [address]-07-2008 History of Past illness Narrative* Problem Noted Date Resolved Date Nonspecific abnormal results of liver function s dy 03/03/2008 04/09/2015 documented as of this encounter (statuses as of 11/19/2021) [facility] of Past illness Narrative* Problem Noted Date Resolved Date Nonspecific abnormal results of liver function s dy 03/03/2008 04/09/2015 documented as of this encounter (statuses as of 11/19/2021) [facility] of Past illness Narrative* Problem Noted Date Resolved Date Nonspecific abnormal results of liver function s dy 03/03/2008 04/09/2015 documented as of this encounter (statuses as of 11/29/2021) [facility] of Past illness Narrative* Problem Noted Date Resolved Date Nonspecific abnormal results of liver function s dy 03/03/2008 04/09/2015 documented as of this encounter (statuses as of 11/30/2021) [facility] History of Past illness Narrative* Problem Noted Date Resolved Date Nonspecific abnormal results of liver function s dy 03/03/2008 04/09/2015 documented as of this encounter (statuses as of 12/01/2021) [facility] of Past illness Narrative* Problem Noted Date Resolved Date Nonspecific abnormal results of liver function s dy 03/03/2008 04/09/2015 documented as of this encounter (statuses as of 12/02/2021) [facility] of Past illness Narrative* Problem Noted Date Resolved Date Nonspecific abnormal results of liver function s dy 03/03/2008 04/09/2015 documented as of this encounter (statuses as of 12/02/2021) [facility] of Past illness Narrative* Problem Noted Date Resolved Date Nonspecific abnormal results of liver function s dy 03/03/2008 04/09/2015 documented as of this encounter (statuses as of 12/10/2021) [facility] of Past illness Narrative* Problem Noted Date Resolved Date Nonspecific abnormal results of liver function s dy 03/03/2008 04/09/2015 documented as of this encounter (statuses as of 12/10/2021) [facility] of Past illness Narrative* Problem Noted Date Resolved Date Nonspecific abnormal results of liver function s dy 03/03/2008 04/09/2015 documented as of this encounter (statuses as of 12/24/2021) [facility] of Past illness Narrative* Problem Noted Date Resolved Date Nonspecific abnormal results of liver function s tudy 03/03/2008 04/09/2015 documented as of this encounter (statuses as of 12/24/2021) [facility] of Past illness Narrative* Problem Noted Date Resolved Date Nonspecific abnormal results of liver function s dy 03/03/2008 04/09/2015 documented as of this encounter (statuses as of 12/27/2021) [facility] History of Past illness Narrative* Problem Noted Date Resolved Date Nonspecific abnormal results of liver function s dy 03/03/2008 04/09/2015 documented as of this encounter (statuses as of 12/27/2021) [facility] of Past illness Narrative* Problem Noted Date Resolved Date Nonspecific abnormal results of liver function s dy 03/03/2008 04/09/2015 documented as of this encounter (statuses as of 01/03/2022) [facility] of Past illness Narrative* Problem Noted Date Resolved Date Nonspecific abnormal results of liver function s dy 03/03/2008 04/09/2015 documented as of this encounter (statuses as of 01/13/2022) [facility] of Past illness Narrative* Problem Noted Date Resolved Date Nonspecific abnormal results of liver function s dy 03/03/2008 04/09/2015 documented as of this encounter (statuses as of 01/14/2022) [facility] of Past illness Narrative* Problem Noted Date Resolved Date Nonspecific abnormal results of liver function s dy 03/03/2008 04/09/2015 documented as of this encounter (statuses as of 01/18/2022) [facility] of Past illness Narrative* Problem Noted Date Resolved Date Nonspecific abnormal results of liver function s dy 03/03/2008 04/09/2015 documented as of this encounter (statuses as of 02/02/2022) [address]07-2008 History of Past illness Narrative* Problem Noted Date Resolved Date Nonspecific abnormal results of liver function s dy 03/03/2008 04/09/2015 documented as of this encounter (statuses as of 02/02/2022) [facility] of Past illness Narrative* Problem Noted Date Resolved Date Nonspecific abnormal results of liver function s dy 03/03/2008 04/09/2015 documented as of this encounter (statuses as of 02/03/2022) [facility] of Past illness Narrative* Problem Noted Date Resolved Date Nonspecific abnormal results of liver function s dy 03/03/2008 04/09/2015 documented as of this encounter (statuses as of 02/08/2022) [facility] History of Past illness Narrative* Problem Noted Date Resolved Date Nonspecific abnormal results of liver function s dy 03/03/2008 04/09/2015 documented as of this encounter (statuses as of 02/09/2022) [facility] History of Past illness Narrative* Problem Noted Date Resolved Date Nonspecific abnormal results of liver function s dy 03/03/2008 04/09/2015 documented as of this encounter (statuses as of 02/10/2022) [facility] History of Past illness Narrative* Problem Noted Date Resolved Date Nonspecific abnormal results of liver function s dy 03/03/2008 04/09/2015 documented as of this encounter (statuses as of 02/14/2022) [facility] History of Past illness Narrative* Problem Noted Date Resolved Date Nonspecific abnormal results of liver function s dy 03/03/2008 04/09/2015 documented as of this encounter (statuses as of 02/15/2022) [facility] of Past illness Narrative* Problem Noted Date Resolved Date Nonspecific abnormal results of liver function s dy 03/03/2008 04/09/2015 documented as of this encounter (statuses as of 02/15/2022) [facility] History of Past illness Narrative* Problem Noted Date Resolved Date Nonspecific abnormal results of liver function s tudy 03/03/2008 04/09/2015 documented as of this encounter (statuses as of 03/01/2022) [address]07-[address] History of Past illness Narrative* Problem Noted Date Resolved Date Nonspecific abnormal results of liver function s tudy 03/03/2008 04/09/2015 documented as of this encounter (statuses as of 03/02/2022) [facility] History of Past illness Narrative* Problem Noted Date Resolved Date Nonspecific abnormal results of liver function s tudy 03/03/2008 04/09/2015 documented as of this encounter (statuses as of 03/15/2022) [facility] of Past illness Narrative* Problem Noted Date Resolved Date Nonspecific abnormal results of liver function s tudy 03/03/2008 04/09/2015 documented as of this encounter (statuses as of 03/16/2022) [facility] History of Past illness Narrative* Problem Noted Date Resolved Date Nonspecific abnormal results of liver function s dy 03/03/2008 04/09/2015 documented as of this encounter (statuses as of 03/24/2022) [facility] History of Past illness Narrative* Problem Noted Date Resolved Date Nonspecific abnormal results of liver function s dy 03/03/2008 04/09/2015 documented as of this encounter (statuses as of 03/31/2022) [facility] History of Past illness Narrative* Problem Noted Date Resolved Date Nonspecific abnormal results of liver function s dy 03/03/2008 04/09/2015 documented as of this encounter (statuses as of 03/31/2022) [facility] History of Past illness Narrative* Problem Noted Date Resolved Date Nonspecific abnormal results of liver function s tudy 03/03/2008 04/09/2015 documented as of this encounter (statuses as of 03/31/2022) [facility] History of Past illness Narrative* Problem Noted Date Resolved Date Nonspecific abnormal results of liver function s tudy 03/03/2008 04/09/2015 documented as of this encounter (statuses as of 04/04/2022) [facility] History of Past illness Narrative* Problem Noted Date Resolved Date Nonspecific abnormal results of liver function s dy 03/03/2008 04/09/2015 documented as of this encounter (statuses as of 04/05/2022) [facility] of Past illness Narrative* Problem Noted Date Resolved Date Nonspecific abnormal results of liver function s dy 03/03/2008 04/09/2015 documented as of this encounter (statuses as of 04/12/2022) [facility] History of Past illness Narrative* Problem Noted Date Resolved Date Nonspecific abnormal results of liver function s dy 03/03/2008 04/09/2015 documented as of this encounter (statuses as of 04/14/2022) [facility] History of Past illness Narrative* Problem Noted Date Resolved Date Nonspecific abnormal results of liver function s dy 03/03/2008 04/09/2015 documented as of this encounter (statuses as of 04/18/2022) [facility] History of Past illness Narrative* Problem Noted Date Resolved Date Nonspecific abnormal results of liver function s dy 03/03/2008 04/09/2015 documented as of this encounter (statuses as of 04/19/2022) [facility] History of Past illness Narrative* Problem Noted Date Resolved Date Nonspecific abnormal results of liver function s dy 03/03/2008 04/09/2015 documented as of this encounter (statuses as of 04/20/2022) [facility] History of Past illness Narrative* Problem Noted Date Resolved Date Nonspecific abnormal results of liver function s dy 03/03/2008 04/09/2015 documented as of this encounter (statuses as of 04/20/2022) [facility] History of Past illness Narrative* Problem Noted Date Resolved Date Nonspecific abnormal results of liver function s dy 03/03/2008 04/09/2015 documented as of this encounter (statuses as of 04/20/2022) [facility] History of Past illness Narrative* Problem Noted Date Resolved Date Nonspecific abnormal results of liver function s dy 03/03/2008 04/09/2015 documented as of this encounter (statuses as of 04/21/2022) [facility] History of Past illness Narrative* Problem Noted Date Resolved Date Nonspecific abnormal results of liver function s dy 03/03/2008 04/09/2015 documented as of this encounter (statuses as of 04/27/2022) [address]07-[address] History of Past illness Narrative* Problem Noted Date Resolved Date Nonspecific abnormal results of liver function s dy 03/03/2008 04/09/2015 documented as of this encounter (statuses as of 06/02/2022) [facility] History of Past illness Narrative* Problem Noted Date Resolved Date Nonspecific abnormal results of liver function s dy 03/03/2008 04/09/2015 documented as of this encounter (statuses as of 06/02/2022) [facility] History of Past illness Narrative* Problem Noted Date Resolved Date Nonspecific abnormal results of liver function s dy 03/03/2008 04/09/2015 documented as of this encounter (statuses as of 06/03/2022) [facility] History of Past illness Narrative* Problem Noted Date Resolved Date Nonspecific abnormal results of liver function s dy 03/03/2008 04/09/2015 documented as of this encounter (statuses as of 2022) [facility] History of Past illness Narrative* Problem Noted Date Resolved Date Nonspecific abnormal results of liver function s dy 03/03/2008 04/09/2015 documented as of this encounter (statuses as of 07/12/2022) [facility] History of Past illness Narrative* Problem Noted Date Resolved Date Nonspecific abnormal results of liver function s dy 03/03/2008 04/09/2015 documented as of this encounter (statuses as of 07/12/2022) [facility] History of Past illness Narrative* Problem Noted Date Resolved Date Nonspecific abnormal results of liver function s dy 03/03/2008 04/09/2015 documented as of this encounter (statuses as of 07/12/2022) [facility] History of Past illness Narrative* Problem Noted Date Resolved Date Nonspecific abnormal results of liver function s dy 03/03/2008 04/09/2015 documented as of this encounter (statuses as of 08/15/2022) [facility] History of Past illness Narrative* Problem Noted Date Resolved Date Nonspecific abnormal results of liver function s tudy 03/03/2008 04/09/2015 documented as of this encounter (statuses as of 09/22/2022) [address]07-[address] History of Past illness Narrative* Problem Noted Date Resolved Date Nonspecific abnormal results of liver function s dy 03/03/2008 04/09/2015 documented as of this encounter (statuses as of 10/10/2022) [facility] of Past illness Narrative* Problem Noted Date Resolved Date Nonspecific abnormal results of liver function s dy 03/03/2008 04/09/2015 documented as of this encounter (statuses as of 10/11/2022) [facility] History of Past illness Narrative* Problem Noted Date Resolved Date Nonspecific abnormal results of liver function s dy 03/03/2008 04/09/2015 documented as of this encounter (statuses as of 11/08/2022) [facility] Past illness Narrative* Problem Noted Date Resolved Date Nonspecific abnormal results of liver function s dy 03/03/2008 04/09/2015 documented as of this encounter (statuses as of 01/01/2023) [facility] History of Past illness Narrative* Problem Noted Date Resolved Date Nonspecific abnormal results of liver function s dy 03/03/2008 04/09/2015 documented as of this encounter (statuses as of 01/09/2023) [facility] History of Past illness Narrative* Problem Noted Date Resolved Date Nonspecific abnormal results of liver function s dy 03/03/2008 04/09/2015 documented as of this encounter (statuses as of 01/09/2023) [facility] History of Past illness Narrative* Problem Noted Date Resolved Date Nonspecific abnormal results of liver function s dy 03/03/2008 04/09/2015 documented as of this encounter (statuses as of 02/27/2023) [facility] History of Past illness Narrative* Problem Noted Date Diagnosed Date Resolved Date Nonspecific abnormal results of liver function study 03/03/2008 04/09/2015 documented as of this encounter (statuses as of 10/27/2023) [facility] N[facility] - Reported* An interactive audio [...] not being allowed to take NSAIDS. -[facility] Internal Medicine Work Phone: discharge summary Author [facility]. Sutton [facility] November 15, 2022 1:42pm Note Date/Time November 15, 2022 12: 03pm [facility] Medical Records Department [address] [place] [address] Emergency Department Summary 11/15/22 MR#: [id number] Acct: [id number] Name: EMMA COWART Rep #:[id number] : [id number] 37 From: Aftab Sutton MD [...] has been moving recently unpacking and lifting. [facility] Medical History Tczso-7-wtczthaldfv deficiency Ankylosing spondylitis Anxiety Arthritis Back problem [...] % (Auto) 66.2 Lymph % (Auto) 24.8 [place] % (Auto) 7.0 Eos % (Auto) 1.7 [...] Signed: Gray Reyes MD at 12:37 EDT Reading Location ID and State: [facility] / [place] , Service support , For interpreted by [place] as normal Discharge Plan Triage Chief Complaint: [...] your Primary Care Provider. Call [facility] ([phone]) or report to the closest Emergency Room. Call 911 if necessary. 11/15/22 1342 <Electronically signed by Aftab Sutton MD> Cosigner Signature (if applicable): CC: JUNE Mujica ~ Signed [facility] Work Phone: Evaluation + Plan note No data available for this section [facility] Evaluation note* Diagnosis Class 3 severe obesity due to excess calories with serious comorbidity and body mass index (BMI) of 60.0 to 69.9 in adult (HCC) [facility] Diagnosis Class 3 severe obesity due to excess calories with serious comorbidity and body mass index (BMI) of 60.0 to 69.9 in adult (HCC)- Primary V-tach (HCC) Paroxysmal ventricular tachycardia COVID-19 long hauler Elevated liver enzymes Other nonspecific abnormal serum enzyme levels Nmqah-8-nobaadhniwd deficiency (HCC) Fypmc-8-ppqwjrfipzv deficiency Gastroesophageal reflux disease without esophagitis Esophageal reflux [facility] Diagnosis Thiamine deficiency Other and unspecified manifestations of thiamine deficiency [facility] Diagnosis Thiamine deficiency Other and unspecified manifestations of thiamine deficiency [facility] Diagnosis Class 3 severe obesity due to excess calories with serious comorbidity and body mass index (BMI) of 60.0 to 69.9 in adult (HCC)- Primary Elevated liver enzymes Other nonspecific abnormal serum enzyme levels Hepatomegaly V-tach (HCC) Paroxysmal ventricular tachycardia COVID-19 long hauler Gastroesophageal reflux disease without esophagitis Esophageal reflux [facility] Class 3 severe obesity due to excess calories with serious comorbidity and body mass index (BMI) of 60.0 to 69.9 in adult (HCC)- Primary [facility] Diagnosis Dyspnea and respiratory abnormalities- Primary Other dyspnea and respiratory abnormality Shortness of breath [facility] Diagnosis Fatty liver- Primary Other chronic nonalcoholic liver disease Increased liver enzymes Other nonspecific abnormal serum enzyme levels Morbid obesity (HCC) Morbid obesity [facility] Diagnosis Class 3 severe obesity due to excess calories with serious comorbidity and body mass index (BMI) of 60.0 to 69.9 in adult (HCC)- Primary Elevated liver enzymes Other nonspecific abnormal serum enzyme levels COVID-19 [facility] padilla Hepatomegaly [facility] Diagnosis Dyspnea and respiratory abnormalities Other dyspnea and respiratory abnormality [facility] Diagnosis Dyspnea and respiratory abnormalities Other dyspnea and respiratory abnormality [facility] Diagnosis Fatty liver Other chronic nonalcoholic liver disease Increased liver enzymes Other nonspecific abnormal serum enzyme levels [facility] Diagnosis TORRES (nonalcoholic steatohepatitis)- Primary Other chronic nonalcoholic liver disease Increased liver enzymes Other nonspecific abnormal serum enzyme levels [facility] Diagnosis Class 3 severe obesity due to excess calories with serious comorbidity and body mass index (BMI) of 60.0 to 69.9 in adult (HCC)- Primary Elevated liver enzymes Other nonspecific abnormal serum enzyme levels COVID-19 [facility] BRISEYDA (obstructive sleep apnea) Obstructive sleep apnea (adult) (pediatric) [facility] Diagnosis Dietary counseling and surveillance Dietary surveillance and counseling [facility] Diagnosis Morbid obesity (HCC)- Primary Morbid obesity [facility] Diagnosis Class 3 severe obesity due to excess calories with serious comorbidity and body mass index (BMI) of 60.0 to 69.9 in adult (HCC)- Primary Morbid obesity (HCC) Morbid obesity [facility] Diagnosis Class 3 severe obesity due to excess calories with serious comorbidity and body mass index (BMI) of 60.0 to 69.9 in adult (HCC)- Primary History of DVT (deep vein thrombosis) Personal history of venous thrombosis and embolism AAT (qyzcq-5-isqeslrlaqo) deficiency (HCC) Hswhn-0-cbhjmcfradl deficiency BRISEYDA (obstructive sleep apnea) Obstructive sleep apnea (adult) (pediatric) NAFLD (nonalcoholic fatty liver disease) Other chronic nonalcoholic liver disease Heartburn Morbid obesity (HCC) Morbid obesity [facility] Diagnosis Class 3 severe obesity due to excess calories with serious comorbidity and body mass index (BMI) of 60.0 to 69.9 in adult (HCC)- Primary History of DVT (deep vein thrombosis) Personal history of venous thrombosis and embolism Elevated liver enzymes Other nonspecific abnormal serum enzyme levels Morbid obesity (HCC) Morbid obesity [facility]* Diagnosis Thrombocytopenia (HCC)- Primary Thrombocytopenia, unspecified Morbid obesity (HCC) Morbid obesity [facility]* Diagnosis S/P laparoscopic sleeve gastrectomy- Primary Bariatric surgery status Right sided abdominal pain Abdominal pain, unspecified site Hepatic fibrosis Cirrhosis 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 mention of alcohol History of DVT (deep vein thrombosis) Personal history of venous thrombosis and embolism S/P laparoscopic sleeve gastrectomy Bariatric surgery status Right sided abdominal pain Abdominal pain, unspecified site [facility] Diagnosis S/P laparoscopic sleeve gastrectomy Bariatric surgery status Right sided abdominal pain Abdominal pain, unspecified site [facility] Diagnosis Dietary counseling and surveillance [Z71.3 (ICD-10-CM)]- Primary Dietary surveillance and counseling [facility]* Diagnosis Class 3 severe obesity due to excess calories with serious comorbidity and body mass index (BMI) of 60.0 to 69.9 in adult (HCC) documented [facility]* Diagnosis S/P laparoscopic sleeve gastrectomy- Primary Bariatric surgery status [facility]* Diagnosis Dietary counseling and surveillance [Z71.3 (ICD-10-CM)]- Primary Dietary surveillance and counseling [facility]* Diagnosis Hepatic fibrosis- Primary Cirrhosis 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 mention of alcohol [facility]* Diagnosis S/P laparoscopic sleeve gastrectomy- Primary Bariatric surgery status Elevated liver enzymes Other nonspecific abnormal serum enzyme levels [facility] Diagnosis Dietary counseling and surveillance [Z71.3 (ICD-10-CM)]- Primary Dietary surveillance and counseling [facility] noteNo assessment information availableWWood County Hospital Work Phone: Evaluation note* Diagnosis Acute cough- Primary URI, acute Acute upper respiratory infections of unspecified site Rhinosinusitis Unspecified sinusitis (chronic) documented [facility]* Diagnosis S/P laparoscopic sleeve gastrectomy- Primary Bariatric surgery status documented [facility]* Diagnosis Increased PTH level- Primary Unspecified endocrine disorder [facility]* Diagnosis Foot pain, right- Primary Pain in limb [facility]* Diagnosis Dizziness- Primary Dizziness and giddiness Bilateral impacted cerumen Impacted cerumen [facility]* Diagnosis Dizzy- Primary Dizziness and giddiness documented [facility] this [facility]* Diagnosis Generalized anxiety disorder- Primary Anxiety [...] episode, moderate (CMS/HCC) documented in this encounter [facility] Work Phone: Evaluation note* Diagnosis Major [...] blood chemistry Depression, major, single episode, moderate (CMS/HCC) Generalized anxiety disorder AAT (wyznm-6-cpzbojxjfjw) deficiency ([facility]) Tfrxj-5-dguqgittoqe deficiency Encounter for screening mammogram for breast cancer Class 3 severe obesity due to excess calories with serious comorbidity and body mass index (BMI) of 50.0 to 59.9 in adult (CMS/HCC) documented in this encounter [facility] Work Phone: Evaluation note* Diagnosis URI, acute- Primary Acute upper respiratory infections of unspecified site Acute cough Acute cough [facility] Diagnosis Acute cough [facility]* Diagnosis Acute cough documented in [facility]* Diagnosis Foot pain, right Pain in limb documented [facility]* Diagnosis Class 3 severe obesity with body mass index (BMI) of 50.0 to 59.9 in adult, unspecified obesity type, unspecified whether serious comorbidity present ([facility]) documented [facility]* Diagnosis Foot pain, left- Primary Pain in limb Injury of left foot, initial encounter Foot pain, left Pain in limb Injury of left foot, initial encounter [facility] Diagnosis Foot pain, left Pain in limb Injury of left foot, initial encounter documented [facility]* Diagnosis Cervicalgia- Primary Anxiety Anxiety state, [...] status Medication management documented in this encounter [facility] Work Phone: Evaluation note* Diagnosis Chronic midline low back pain with sciatica, sciatica laterality unspecified documented in this encounter [facility] Work Phone: Evaluation note* Diagnosis Cervicalgia documented in this encounter [facility] Work Phone: Evaluation note* Diagnosis Major [...] sites Medication management documented in this encounter [facility] Work Phone: Evaluation note* Diagnosis Acute [...] Depression, major, single episode, moderate (Multi) AAT (yqzpe-5-umgfuvpwcjx) deficiency (Multi) Kxpez-5-jgveywbltan deficiency Encounter for dietary counseling and surveillance Fatty liver disease, nonalcoholic documented in this encounter [facility] Work Phone: Evaluation note* Diagnosis Sinus bradycardia- Primary Other specified cardiac dysrhythmias Encounter for screening for cardiovascular disorders Screening for other and unspecified cardiovascular conditions Chest pain, unspecified type Wide-complex tachycardia Paroxysmal ventricular tachycardia BMI 50.0-59.9, adult (HCC) Body Mass Index 50.0-59.9, adult [facility]* Diagnosis Fatigue, unspecified type- Primary Anxiety Anxiety state, unspecified Medication management Palpitations H/O cardiac radiofrequency ablation 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 Class 3 severe obesity due to excess calories with serious comorbidity and body mass index (BMI) of 50.0 to 59.9 in adult ([facility]-HCC) Fatty liver disease, nonalcoholic Depression, major, single episode, moderate (Multi) Generalized anxiety disorder Insomnia secondary to depression with anxiety documented in this encounter [facility] Work Phone: History of Present illness Narrative* [...] * 2 morbid obese * 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 I have considered the risks of abuse, dependence, addiction and diversion. * Last urine drug screening date/ordered today: 05/25/2021 * Date of the last Controlled Substance Agreement: 05/25/2021 -[facility] [...] have personally reviewed the OARRS report for [facility]. I have considered the risks of abuse, dependence, addiction and diversion. * Last urine drug screening date/ordered today: 05/25/2021 * Date of the last Controlled Substance Agreement: 05/25/2021 -[facility] Work Phone: Reason for referral (narrative)* Outpatient Procedure (Routine) - Pending Review Specialty Diagnoses / Procedures Referred By Donna longoria Referred To [facility]PIRATORY [facility] Diagnoses Dyspnea and respiratory abnormalities Procedures LUNG VOLUMES Hung Emerson MD [address] [place] [phone] [address] Referral ID Status Reason Start Date Expiration Date Visits Requested Visits Authorized [id number] Pending Review Auto-Generat ed Referral 01/03/2022 02/02/2023 1 1 * Outpatient Procedure (Routine) - Pending Review Specialty Diagnoses / Procedures Referred By Donna longoria Referred To [facility]PIRATORY [facility] Diagnoses Dyspnea and respiratory abnormalities Procedures LUNG DIFFUSION CAPACITY (DLCO) DIFFUSING CAPACITY Hung Emerson MD [address] [place] [id number] [address] Referral ID Status Reason Start Date Expiration Date Visits Requested Visits Authorized [id number] Pending Review Auto-Generat ed Referral 01/03/2022 02/02/2023 1 1 * Outpatient Procedure (Routine) - Pending Review Specialty Diagnoses / Procedures Referred By Donna longoria Referred To [facility]PIRATORY [facility] Diagnoses Dyspnea and respiratory abnormalities Procedures SPIROMETRY - BASELINE AND POST DILATOR BRNCDILAT RSPSE SPMTRY PRE&POST-BRNCDILAT ADMN Hung Emerson MD [address] [place] [id number] [address] Referral ID Status Reason Start Date Expiration Date Visits Requested Visits Authorized [id number] Pending Review Auto-Generat ed Referral 01/03/2022 02/02/2023 1 1 * MRI/CT (Routine) - Pending Review Specialty Diagnoses / Procedures Referred By Contac t Referred To Contact CT IMAGING Diagnoses Shortness of breath Procedures CT CHEST WO IVCON DIAGNOSTIC COMPUTED TOMOGRAPHY THORAX W/O CNTRST Hung Emerson MD [address] [place] [address] Ct Imaging Referral ID Status Reason Start Date Expiration Date Visits Requested Visits Authorized [id number] Pending Review Auto-Generat ed Referral 01/03/2022 02/02/2023 1 1 [facility] for referral (narrative)* Diagnostic Procedure Only (Routine) - Authorized Specialty Diagnoses / Procedures Referred By Contac t Referred To Contact US IMAGING Diagnoses Fatty liver Increased liver enzymes Procedures US ABDOMEN COMPLETE US ABDOMINAL REAL TIME W/IMAGE DOCUMENTATION Brooks Soto MD [address] [place] [address] Us Imaging Referral ID Status Reason Start Date Expiration Date Visits Requested Visits Authorized [id number] Authorized Auto-Generat ed Referral 01/13/2022 02/12/2023 1 1 T [facility] for referral (narrative)* Diagnostic Procedure Only (Routine) - Closed Specialty Diagnoses / Procedures [facility] Diagnoses Fatty liver Increased liver enzymes Procedures US ABDOMEN COMPLETE US ABDOMINAL REAL TIME W/IMAGE DOCUMENTATION Brooks Soto MD [address] [address] Us Imaging Referral ID Status Reason Start Date Expiration Date V isits Requested Visits Authorized [id number] Closed Auto-Generate d Referral 01/13/2022 02/12/2023 1 1 [facility] for referral (narrative)* Diagnostic Procedure Only (Urgent) - Closed Specialty Diagnoses / Procedures Referred By Contac t Referred To Contact XR IMAGING Diagnoses Foot pain, right Procedures XR FOOT GENERAL 3V AP/LAT/OBL RIGHT RADEX FOOT COMPLETE MINIMUM 3 VIEWS [facility] [address] [place] [address] Xr Imaging Referral ID Status Reason Start Date Expiration Date V isits Requested Visits Authorized [id number] Closed Auto-Generate d Referral 11/08/2022 12/08/2023 1 1 [facility] for referral (narrative)* Diagnostic Procedure Only (Urgent) - Closed Specialty Diagnoses / Procedures Referred By Contac t Referred To Contact XR IMAGING Diagnoses Foot pain, right Procedures XR FOOT GENERAL 3V AP/LAT/OBL RIGHT RADEX FOOT COMPLETE MINIMUM 3 VIEWS [facility] [address] [place] [address] [place] [address] Referral ID Status Reason Start Date Expiration Date V isits Requested Visits Authorized [id number] Closed Auto-Generate d Referral 11/08/2022 12/08/2023 1 1 T [facility] for referral (narrative)* Diagnostic Procedure Only (Urgent) - Closed Specialty Diagnoses / Procedures Referred By Contac t Referred To Contact XR IMAGING Diagnoses Foot pain, left Injury of left foot, initial encounter Procedures XR FOOT GENERAL 3V AP/LAT/OBL LEFT RADEX FOOT COMPLETE MINIMUM 3 VIEWS Kamilla Coon APRN.CNP [address] [id number] [place] [address] Referral ID Status Reason Start Date Expiration Date V isits Requested Visits Authorized [id number] Closed Auto-Generate d Referral 06/07/2024 07/07/2025 1 1 [facility] for referral (narrative)* Diagnostic Procedure Only (Urgent) - Closed Specialty Diagnoses / Procedures Referred By Contac t Referred To Contact XR IMAGING Diagnoses Foot pain, left Injury of left foot, initial encounter Procedures XR FOOT GENERAL 3V AP/LAT/OBL LEFT RADEX FOOT COMPLETE MINIMUM 3 VIEWS Kamilla Coon APRN.DELPHI DEVELOPER [address] [place] [address] [place] [address] Referral ID Status Reason Start Date Expiration Date V isits Requested Visits Authorized [id number] Closed Auto-Generate d Referral 06/07/2024 07/07/2025 1 1 [facility] for visit Narrative* Diagnostic Procedure Only (Routine) - Closed Specialty Diagnoses / Procedures Referred By Contac t Referred To Contact US IMAGING Diagnoses Fatty liver Increased liver enzymes Procedures US ABDOMEN COMPLETE US ABDOMINAL REAL TIME W/IMAGE DOCUMENTATION Brooks Soto MD [address] [address] Us Imaging Referral ID Status Reason Start Date Expiration Date V isits Requested Visits Authorized [id number] Closed Auto-Generate d Referral 01/13/2022 02/12/2023 1 1 [facility] for visit Narrative* Diagnostic Procedure Only (Urgent) - Closed Specialty Diagnoses / Procedures Referred By Contac t Referred To Contact XR IMAGING Diagnoses Foot pain, right Procedures XR FOOT GENERAL 3V AP/LAT/OBL RIGHT RADEX FOOT COMPLETE MINIMUM 3 VIEWS [facility] [address] [place] [address] [place] [address] Referral ID Status Reason Start Date Expiration Date V isits Requested Visits Authorized [id number] Closed Auto-Generate d Referral 11/08/2022 12/08/2023 1 1 [facility] for visit Narrative* Diagnostic Procedure Only (Urgent) - Closed Specialty Diagnoses / Procedures Referred By Contac t Referred To Contact XR IMAGING Diagnoses Foot pain, left Injury of left foot, initial encounter Procedures XR FOOT GENERAL 3V AP/LAT/OBL LEFT RADEX FOOT COMPLETE MINIMUM 3 VIEWS Kamilla Coon APRN.DELPHI DEVELOPER [address] [place] [address] [place] [address] Referral ID Status Reason Start Date Expiration Date V isits Requested Visits Authorized [id number] Closed Auto-Generate d Referral 06/07/2024 07/07/2025 1 1 [facility] for visit Narrative* Imaging (Routine) - Authorized Specialty Diagnoses / Procedures Referred By Donna longoria Referred To Contact Radiology Diagnoses Chronic midline low back pain with sciatica, sciatica laterality unspecified Procedures XR lumbar spine 2-3 views Vargas Mujica, [facility] [address] [place] [address] Phone: tel: fax: Referral ID Status Reason Start Date Expiration Date Visits Requested Visits Authorized [id number] Authorized Perform Procedure 4 07/11/2025 1 1 [facility] Work Phone: Summary Purpose Family History [...] FoundDocuments on File Type Date 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 Advance Directive(s) 05/20/2021 10:22 AM Advance Directive(s) 03/18/2021 1:41 PM Advance Directive(s) 09/21/2018 4:36 PM Advance Directive(s) 09/20/2018 11:48 AM Latest Code Status on File Code Status Date Activated Date Inactivated Comments Full Code 09/21/2018 5:42 PM 09/26/2018 4:27 PM Full Code Order Discussed With: Patient Full Code 09/18/2018 6:09 PM 09/20/2018 6:11 PM Documents on File Type Date 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 Advance Directive(s) 05/20/2021 10:22 AM [...] No August 17, 022 8:27am Power of Service Counter Cashier No August 17, 2022 8:27am Advance Directive Response Recorded Date/ Time Living Will No November 15, 2022 1:50pm Power of Service Counter Cashier No November 15 1:50pm Advance Directive Response Recorded Date/ Time Living Will No January 05, 2023 7 :26am Power of Service Counter Cashier No January 05, 2023 7:26am Advance Directive Response Recorded Date/ Time Living Will No October 19 9:13am Power of Service Counter Cashier No October 19, 2023 9:13am Latest Code [...] Referral Specialty Diagnoses / Procedures Referred By Contac t Referred To Contact Gastroenterology Diagnoses Class 3 severe obesity due to excess calories with serious comorbidity and body mass index (BMI) of 60.0 to 69.9 in adult (HCC) Elevated liver enzymes Hepatomegaly Procedures CONSULT TO GASTROENTEROLOGY OFFICE/OUTPATIENT NEW HIGH MDM 60-74 MINUTES Dee Dee Soliman, RADAR TECHNICIAN.DELPHI DEVELOPER 1 [facility] [address] [place] [address] Referral ID Status Reason Start Date Expiration Date Visits Requested Visits Authorized [id number] Authorized PCP Requested Referral 12/24/2021 03/24/2022 1 1 Specialty Diagnoses / Procedures Referred By Contac t Referred To Contact CT IMAGING Diagnoses S/P laparoscopic sleeve gastrectomy Right sided abdominal pain Procedures CT ABD/PEL W IVCON CT ABD & PELVIS W/CONTRAST Marjan Eddy, RADAR TECHNICIAN.[employer]ELOPER [address] [place] [address] Ct Imaging Referral ID Status Reason Start Date Expiration Date Visits Requested Visits Authorized [id number] Pending Review Patient Cleared - Admin/Chair man/Directo r advise to proceed 04/19/2022 05/19/2023 2 2 Specialty Diagnoses / Procedures Referred By Contac t Referred To Contact Radiology Diagnoses Encounter for screening mammogram for breast cancer Procedures BI mammo bilateral screening tomosynthesis Vargas Mujica PA-C [address] [place] [address] Referral ID Status Reason Start Date Expiration Date Visits Requested Visits Authorized [id number] Authorized Perform Procedure 09/25/2023 09/24/2024 1 1 Specialty Diagnoses / Procedures Referred By Contac t Referred To Contact Radiology Diagnoses Generalized anxiety disorder Procedures BI mammo bilateral screening tomosynthesis Vargas Mujica PA-C [address] [place] [address] Referral ID Status Reason Start Date Expiration Date Visits Requested Visits Authorized [id number] Authorized Perform Procedure 02/28/2024 02/27/2025 1 1 Chief Complaint and Reason for Visit Chief Complaint chest pain Chief Complaint chest pain PE/NON DOT/DRUG SCREEN/PRC CHEST PAIN Chief Complaint PE/NON DOT/DRUG SCRE EN/PRC CHEST PAIN cp Chief Complaint CHEST PAIN/WEAKNESS head pain Additional Source Comments INFORMATION SOURCE (unrecogn ized section and content) DATE CREATED AUTHOR 10/08/2018 [facility] DATE CREATED AUTHOR AUTHOR'S ORGANIZ ATION 02/20/2019 [facility] DATE CREATED AUTHOR AUTHOR'S ORGANIZ ATION 07/13/2020 [facility] DATE CREATED AUTHOR AUTHOR'S ORGANIZ ATION 10/17/2022 [facility] DATE CREATED AUTHOR AUTHOR'S ORGANIZ ATION 10/18/2022 [facility] DATE CREATED AUTHOR AUTHOR'S ORGANIZ ATION 02/14/2023 [facility] DATE CREATED AUTHOR AUTHOR'S ORGANIZ ATION 07/16/2024 [facility] DATE CREATED AUTHOR AUTHOR'S ORGANIZ ATION 07/16/2024 [facility] DATE CREATED AUTHOR AUTHOR'S ORGANIZ ATION 02/13/2025 [facility] DATE CREATED AUTHOR AUTHOR'S ORGANIZ ATION 05/22/2025 [facility] DATE CREATED AUTHOR AUTHOR'S ORGANIZ ATION 06/07/2025 [facility] DATE CREATED AUTHOR AUTHOR'S ORGANIZ ATION 06/12/2025 [facility] Source Comments (unrecognize d section and content) In the event this informatio n is protected by the Federal Confidentiality of Alcohol and Drug Abuse Patient Records regulations: The Federal rules restrict any use of the information to criminally investigate or prosecute any alcohol or drug abuse patient.[facility] CenterIn the event this information is protected by the Federal Confidentiality of Alcohol and Drug Abuse Patient Records regulations: The Federal rules restrict any use of the information to criminally investigate or prosecute any alcohol or drug abuse patient.[facility] CenterIn the event this information is protected by the Federal Confidentiality of Alcohol and Drug Abuse Patient Records regulations: The Federal rules restrict any use of the information to criminally investigate or prosecute any alcohol or drug abuse patient.[facility] CenterIn the event this information is protected by the Federal Confidentiality of Alcohol and Drug Abuse Patient Records regulations: The Federal rules restrict any use of the information to criminally investigate or prosecute any alcohol or drug abuse patient.[facility] CenterIn the event this information is protected by the Federal Confidentiality of Alcohol and Drug Abuse Patient Records regulations: The Federal rules restrict any use of the information to criminally investigate or prosecute any alcohol or drug abuse patient.[facility] CenterIn the event this information is protected by the Federal Confidentiality of Alcohol and Drug Abuse Patient Records regulations: The Federal rules restrict any use of the information to criminally investigate or prosecute any alcohol or drug abuse patient.[facility] CenterIn the event this information is protected by the Federal Confidentiality of Alcohol and Drug Abuse Patient Records regulations: The Federal rules restrict any use of the information to criminally investigate or prosecute any alcohol or drug abuse patient.[facility] CenterIn the event this information is protected by the Federal Confidentiality of Alcohol and Drug Abuse Patient Records regulations: The Federal rules restrict any use of the information to criminally investigate or prosecute any alcohol or drug abuse patient.[facility] CenterIn the event this information is protected by the Federal Confidentiality of Alcohol and Drug Abuse Patient Records regulations: The Federal rules restrict any use of the information to criminally investigate or prosecute any alcohol or drug abuse patient.[facility] CenterIn the event this information is protected by the Federal Confidentiality of Alcohol and Drug Abuse Patient Records regulations: The Federal rules restrict any use of the information to criminally investigate or prosecute any alcohol or drug abuse patient.[facility] CenterIn the event this information is protected by the Federal Confidentiality of Alcohol and Drug Abuse Patient Records regulations: The Federal rules restrict any use of the information to criminally investigate or prosecute any alcohol or drug abuse patient.[facility] CenterIn the event this information is protected by the Federal Confidentiality of Alcohol and Drug Abuse Patient Records regulations: The Federal rules restrict any use of the information to criminally investigate or prosecute any alcohol or drug abuse patient.[facility] CenterIn the event this information is protected by the Federal Confidentiality of Alcohol and Drug Abuse Patient Records regulations: The Federal rules restrict any use of the information to criminally investigate or prosecute any alcohol or drug abuse patient.[facility] CenterIn the event this information is protected by the Federal Confidentiality of Alcohol and Drug Abuse Patient Records regulations: The Federal rules restrict any use of the information to criminally investigate or prosecute any alcohol or drug abuse patient.[facility] CenterIn the event this information is protected by the Federal Confidentiality of Alcohol and Drug Abuse Patient Records regulations: The Federal rules restrict any use of the information to criminally investigate or prosecute any alcohol or drug abuse patient.[facility] CenterIn the event this information is protected by the Federal Confidentiality of Alcohol and Drug Abuse Patient Records regulations: The Federal rules restrict any use of the information to criminally investigate or prosecute any alcohol or drug abuse patient.[facility] CenterIn the event this information is protected by the Federal Confidentiality of Alcohol and Drug Abuse Patient Records regulations: The Federal rules restrict any use of the information to criminally investigate or prosecute any alcohol or drug abuse patient.[facility] CenterIn the event this information is protected by the Federal Confidentiality of Alcohol and Drug Abuse Patient Records regulations: The Federal rules restrict any use of the information to criminally investigate or prosecute any alcohol or drug abuse patient.[facility] CenterIn the event this information is protected by the Federal Confidentiality of Alcohol and Drug Abuse Patient Records regulations: The Federal rules restrict any use of the information to criminally investigate or prosecute any alcohol or drug abuse patient.[facility] CenterIn the event this information is protected by the Federal Confidentiality of Alcohol and Drug Abuse Patient Records regulations: The Federal rules restrict any use of the information to criminally investigate or prosecute any alcohol or drug abuse patient.[facility] CenterIn the event this information is protected by the Federal Confidentiality of Alcohol and Drug Abuse Patient Records regulations: The Federal rules restrict any use of the information to criminally investigate or prosecute any alcohol or drug abuse patient.[facility] CenterIn the event this information is protected by the Federal Confidentiality of Alcohol and Drug Abuse Patient Records regulations: The Federal rules restrict any use of the information to criminally investigate or prosecute any alcohol or drug abuse patient.[facility] CenterIn the event this information is protected by the Federal Confidentiality of Alcohol and Drug Abuse Patient Records regulations: The Federal rules restrict any use of the information to criminally investigate or prosecute any alcohol or drug abuse patient.[facility] CenterIn the event this information is protected by the Federal Confidentiality of Alcohol and Drug Abuse Patient Records regulations: The Federal rules restrict any use of the information to criminally investigate or prosecute any alcohol or drug abuse patient.[facility] CenterIn the event this information is protected by the Federal Confidentiality of Alcohol and Drug Abuse Patient Records regulations: The Federal rules restrict any use of the information to criminally investigate or prosecute any alcohol or drug abuse patient.[facility] CenterIn the event this information is protected by the Federal Confidentiality of Alcohol and Drug Abuse Patient Records regulations: The Federal rules restrict any use of the information to criminally investigate or prosecute any alcohol or drug abuse patient.[facility] CenterIn the event this information is protected by the Federal Confidentiality of Alcohol and Drug Abuse Patient Records regulations: The Federal rules restrict any use of the information to criminally investigate or prosecute any alcohol or drug abuse patient.[facility] CenterIn the event this information is protected by the Federal Confidentiality of Alcohol and Drug Abuse Patient Records regulations: The Federal rules restrict any use of the information to criminally investigate or prosecute any alcohol or drug abuse patient.[facility] CenterIn the event this information is protected by the Federal Confidentiality of Alcohol and Drug Abuse Patient Records regulations: The Federal rules restrict any use of the information to criminally investigate or prosecute any alcohol or drug abuse patient.[facility] CenterIn the event this information is protected by the Federal Confidentiality of Alcohol and Drug Abuse Patient Records regulations: The Federal rules restrict any use of the information to criminally investigate or prosecute any alcohol or drug abuse patient.[facility] CenterIn the event this information is protected by the Federal Confidentiality of Alcohol and Drug Abuse Patient Records regulations: The Federal rules restrict any use of the information to criminally investigate or prosecute any alcohol or drug abuse patient.[facility] CenterIn the event this information is protected by the Federal Confidentiality of Alcohol and Drug Abuse Patient Records regulations: The Federal rules restrict any use of the information to criminally investigate or prosecute any alcohol or drug abuse patient.[facility] CenterIn the event this information is protected by the Federal Confidentiality of Alcohol and Drug Abuse Patient Records regulations: The Federal rules restrict any use of the information to criminally investigate or prosecute any alcohol or drug abuse patient.[facility] CenterIn the event this information is protected by the Federal Confidentiality of Alcohol and Drug Abuse Patient Records regulations: The Federal rules restrict any use of the information to criminally investigate or prosecute any alcohol or drug abuse patient.[facility] CenterIn the event this information is protected by the Federal Confidentiality of Alcohol and Drug Abuse Patient Records regulations: The Federal rules restrict any use of the information to criminally investigate or prosecute any alcohol or drug abuse patient.[facility] CenterIn the event this information is protected by the Federal Confidentiality of Alcohol and Drug Abuse Patient Records regulations: The Federal rules restrict any use of the information to criminally investigate or prosecute any alcohol or drug abuse patient.[facility] CenterIn the event this information is protected by the Federal Confidentiality of Alcohol and Drug Abuse Patient Records regulations: The Federal rules restrict any use of the information to criminally investigate or prosecute any alcohol or drug abuse patient.[facility] CenterIn the event this information is protected by the Federal Confidentiality of Alcohol and Drug Abuse Patient Records regulations: The Federal rules restrict any use of the information to criminally investigate or prosecute any alcohol or drug abuse patient.[facility] CenterIn the event this information is protected by the Federal Confidentiality of Alcohol and Drug Abuse Patient Records regulations: The Federal rules restrict any use of the information to criminally investigate or prosecute any alcohol or drug abuse patient.[facility] CenterIn the event this information is protected by the Federal Confidentiality of Alcohol and Drug Abuse Patient Records regulations: The Federal rules restrict any use of the information to criminally investigate or prosecute any alcohol or drug abuse patient.[facility] CenterIn the event this information is protected by the Federal Confidentiality of Alcohol and Drug Abuse Patient Records regulations: The Federal rules restrict any use of the information to criminally investigate or prosecute any alcohol or drug abuse patient.[facility] CenterIn the event this information is protected by the Federal Confidentiality of Alcohol and Drug Abuse Patient Records regulations: The Federal rules restrict any use of the information to criminally investigate or prosecute any alcohol or drug abuse patient.[facility] CenterIn the event this information is protected by the Federal Confidentiality of Alcohol and Drug Abuse Patient Records regulations: The Federal rules restrict any use of the information to criminally investigate or prosecute any alcohol or drug abuse patient.[facility] CenterIn the event this information is protected by the Federal Confidentiality of Alcohol and Drug Abuse Patient Records regulations: The Federal rules restrict any use of the information to criminally investigate or prosecute any alcohol or drug abuse patient.[facility] CenterIn the event this information is protected by the Federal Confidentiality of Alcohol and Drug Abuse Patient Records regulations: The Federal rules restrict any use of the information to criminally investigate or prosecute any alcohol or drug abuse patient.[facility] CenterIn the event this information is protected by the Federal Confidentiality of Alcohol and Drug Abuse Patient Records regulations: The Federal rules restrict any use of the information to criminally investigate or prosecute any alcohol or drug abuse patient.[facility] CenterIn the event this information is protected by the Federal Confidentiality of Alcohol and Drug Abuse Patient Records regulations: The Federal rules restrict any use of the information to criminally investigate or prosecute any alcohol or drug abuse patient.[facility] CenterIn the event this information is protected by the Federal Confidentiality of Alcohol and Drug Abuse Patient Records regulations: The Federal rules restrict any use of the information to criminally investigate or prosecute any alcohol or drug abuse patient.[facility] CenterIn the event this information is protected by the Federal Confidentiality of Alcohol and Drug Abuse Patient Records regulations: The Federal rules restrict any use of the information to criminally investigate or prosecute any alcohol or drug abuse patient.[facility] CenterIn the event this information is protected by the Federal Confidentiality of Alcohol and Drug Abuse Patient Records regulations: The Federal rules restrict any use of the information to criminally investigate or prosecute any alcohol or drug abuse patient.[facility] CenterIn the event this information is protected by the Federal Confidentiality of Alcohol and Drug Abuse Patient Records regulations: The Federal rules restrict any use of the information to criminally investigate or prosecute any alcohol or drug abuse patient.[facility] CenterIn the event this information is protected by the Federal Confidentiality of Alcohol and Drug Abuse Patient Records regulations: The Federal rules restrict any use of the information to criminally investigate or prosecute any alcohol or drug abuse patient.[facility] CenterIn the event this information is protected by the Federal Confidentiality of Alcohol and Drug Abuse Patient Records regulations: The Federal rules restrict any use of the information to criminally investigate or prosecute any alcohol or drug abuse patient.[facility] CenterIn the event this information is protected by the Federal Confidentiality of Alcohol and Drug Abuse Patient Records regulations: The Federal rules restrict any use of the information to criminally investigate or prosecute any alcohol or drug abuse patient.[facility] CenterIn the event this information is protected by the Federal Confidentiality of Alcohol and Drug Abuse Patient Records regulations: The Federal rules restrict any use of the information to criminally investigate or prosecute any alcohol or drug abuse patient.[facility] CenterIn the event this information is protected by the Federal Confidentiality of Alcohol and Drug Abuse Patient Records regulations: The Federal rules restrict any use of the information to criminally investigate or prosecute any alcohol or drug abuse patient.[facility] CenterIn the event this information is protected by the Federal Confidentiality of Alcohol and Drug Abuse Patient Records regulations: The Federal rules restrict any use of the information to criminally investigate or prosecute any alcohol or drug abuse patient.[facility] CenterIn the event this information is protected by the Federal Confidentiality of Alcohol and Drug Abuse Patient Records regulations: The Federal rules restrict any use of the information to criminally investigate or prosecute any alcohol or drug abuse patient.[facility] CenterIn the event this information is protected by the Federal Confidentiality of Alcohol and Drug Abuse Patient Records regulations: The Federal rules restrict any use of the information to criminally investigate or prosecute any alcohol or drug abuse patient.[facility] CenterIn the event this information is protected by the Federal Confidentiality of Alcohol and Drug Abuse Patient Records regulations: The Federal rules restrict any use of the information to criminally investigate or prosecute any alcohol or drug abuse patient.[facility] CenterIn the event this information is protected by the Federal Confidentiality of Alcohol and Drug Abuse Patient Records regulations: The Federal rules restrict any use of the information to criminally investigate or prosecute any alcohol or drug abuse patient.[facility] CenterIn the event this information is protected by the Federal Confidentiality of Alcohol and Drug Abuse Patient Records regulations: The Federal rules restrict any use of the information to criminally investigate or prosecute any alcohol or drug abuse patient.[facility] CenterIn the event this information is protected by the Federal Confidentiality of Alcohol and Drug Abuse Patient Records regulations: The Federal rules restrict any use of the information to criminally investigate or prosecute any alcohol or drug abuse patient.[facility] CenterIn the event this information is protected by the Federal Confidentiality of Alcohol and Drug Abuse Patient Records regulations: The Federal rules restrict any use of the information to criminally investigate or prosecute any alcohol or drug abuse patient.[facility] CenterIn the event this information is protected by the Federal Confidentiality of Alcohol and Drug Abuse Patient Records regulations: The Federal rules restrict any use of the information to criminally investigate or prosecute any alcohol or drug abuse patient.[facility] CenterIn the event this information is protected by the Federal Confidentiality of Alcohol and Drug Abuse Patient Records regulations: The Federal rules restrict any use of the information to criminally investigate or prosecute any alcohol or drug abuse patient.[facility] CenterIn the event this information is protected by the Federal Confidentiality of Alcohol and Drug Abuse Patient Records regulations: The Federal rules restrict any use of the information to criminally investigate or prosecute any alcohol or drug abuse patient.[facility] CenterIn the event this information is protected by the Federal Confidentiality of Alcohol and Drug Abuse Patient Records regulations: The Federal rules restrict any use of the information to criminally investigate or prosecute any alcohol or drug abuse patient.[facility] CenterIn the event this information is protected by the Federal Confidentiality of Alcohol and Drug Abuse Patient Records regulations: The Federal rules restrict any use of the information to criminally investigate or prosecute any alcohol or drug abuse patient.[facility] CenterIn the event this information is protected by the Federal Confidentiality of Alcohol and Drug Abuse Patient Records regulations: The Federal rules restrict any use of the information to criminally investigate or prosecute any alcohol or drug abuse patient.[facility] CenterIn the event this information is protected by the Federal Confidentiality of Alcohol and Drug Abuse Patient Records regulations: The Federal rules restrict any use of the information to criminally investigate or prosecute any alcohol or drug abuse patient.[facility] CenterIn the event this information is protected by the Federal Confidentiality of Alcohol and Drug Abuse Patient Records regulations: The Federal rules restrict any use of the information to criminally investigate or prosecute any alcohol or drug abuse patient.[facility] CenterIn the event this information is protected by the Federal Confidentiality of Alcohol and Drug Abuse Patient Records regulations: The Federal rules restrict any use of the information to criminally investigate or prosecute any alcohol or drug abuse patient.[facility] CenterIn the event this information is protected by the Federal Confidentiality of Alcohol and Drug Abuse Patient Records regulations: The Federal rules restrict any use of the information to criminally investigate or prosecute any alcohol or drug abuse patient.[facility] CenterIn the event this information is protected by the Federal Confidentiality of Alcohol and Drug Abuse Patient Records regulations: The Federal rules restrict any use of the information to criminally investigate or prosecute any alcohol or drug abuse patient.[facility] CenterIn the event this information is protected by the Federal Confidentiality of Alcohol and Drug Abuse Patient Records regulations: The Federal rules restrict any use of the information to criminally investigate or prosecute any alcohol or drug abuse patient.[facility] CenterIn the event this information is protected by the Federal Confidentiality of Alcohol and Drug Abuse Patient Records regulations: The Federal rules restrict any use of the information to criminally investigate or prosecute any alcohol or drug abuse patient.[facility] CenterIn the event this information is protected by the Federal Confidentiality of Alcohol and Drug Abuse Patient Records regulations: The Federal rules restrict any use of the information to criminally investigate or prosecute any alcohol or drug abuse patient.[facility] Reason for Visit (unrecogniz ed section and content) Reason Comments Refill Request Reason Comments Follow Up Reason Comments Medical Clearance Reason Comments Patient Update Outside lab results Reason Comments Appointment Reason Comments Radiology US results Reason Comments Received Outside Medical Records [place] [facility] medicine Reason Comments Established Patient Reason Comments [...] Hung Emerson MD [address] [place] [address] Respiratory [place] [id number] Referral ID Status Reason Start Date Expiration Date V isits Requested Visits Authorized [id number] Closed Auto-Generate d Referral 01/03/2022 02/02/2023 1 1 Specialty Diagnoses / Procedures Referred By Contac t Referred [facility] Diagnoses Dyspnea and respiratory abnormalities Procedures LUNG DIFFUSION CAPACITY (DLCO) DIFFUSING CAPACITY Hung Emerson MD [address] [place] [address] [address] [address] Referral ID Status Reason Start Date Expiration Date V isits Requested Visits Authorized [id number] Closed Auto-Generate d Referral 01/03/2022 02/02/2023 1 1 [facility]ty Diagnoses / [facility] Diagnoses Dyspnea and respiratory abnormalities Procedures LUNG VOLUMES PLETHYSMOGRAPHY LUNG VOLUMES W/WO AIRWAY RESIST Hung Emerson MD [address] [place] [address] [address] [address] Referral ID Status Reason Start Date Expiration Date V isits Requested Visits Authorized [id number] Closed Auto-Generate d Referral 01/19/2022 08/27/2022 1 [...] CT ABD & PELVIS W/CONTRAST Marjan Eddy, RADAR TECHNICIAN.DELPHI DEVELOPER [address] [place] [address] Ct Imaging Referral ID Status Reason Start Date Expiration Date Visits Requested Visits Authorized [id number] Pending Review Patient Cleared - Admin/Chair man/Directo [...] Date Comments Follow Up Tests Results 02/10/2025 Reason Comments Illness C/O DIARRHEA/ NO JIMBO ETITE X2 MO. DOES NOT FEEL RIGHT. Care Teams (unrecognized sec tion and content) Pattern Assembler Relationship Specialty Start Date End Date Vargas Mujica PA [address] [place], [place] [id number] PCP - General Internal Medicine 09/17/18 Jsohua Camacho (Hist) [address] [facility] [place] [place] [address] Specialty Cyber Engineer Cardiology 09/19/18 Edith Taylor MD [address] [place] [address] Specialty Cyber Engineer Gastroenterology 09/19/18 Bonita Naqvi [address] [facility] [place], [place] [id number] Specialty Cyber Engineer Rheumatology 09/19/18 No, Referral Referring Cardiology 06/26/19 Eric Crooks MD [address] [place], [place] [id number] Primary Staff Physician Cardiology 02/11/20 Pattern Assembler Relationship Specialty Start Date End Date Vargas Mujica PA [address] [place] [address] PCP - General Internal Medicine 09/17/18 Joshua Camacho (Hist) [address] [facility] [place], [place] [address] Specialty Cyber Engineer Cardiology 09/19/18 Edith Taylor MD [address] [place] [address] Specialty Cyber Engineer Gastroenterology 09/19/18 Bonita Naqvi [address] [facility] [place], [place] [address] Specialty Cyber Engineer Rheumatology 09/19/18 No, Referral Referring Cardiology 06/26/19 Eric Crooks MD [address] [place] [address] Primary Staff Physician Cardiology 02/11/20 Pattern Assembler Relationship Specialty Start Date End Date Vargas Mujica, JUNE [address] [place] [address] PCP - General Internal Medicine 09/17/18 Joshua Camacho (Hist) [address] [facility] [address] Specialty Cyber Engineer Cardiology 09/19/18 Edith Taylor MD [address] [place] [address] Specialty Cyber Engineer Gastroenterology 09/19/18 Bonita Naqvi [address] [place] [address] Specialty Cyber Engineer Rheumatology 09/19/18 No, Referral Referring Cardiology 06/26/19 Eric Crooks MD [address] [place] [address] Primary Staff Physician Cardiology 02/11/20 Pattern Assembler Relationship Specialty Start Date End Date Vargas Mujica, JUNE [address] [place] [address] PCP - General Internal Medicine 09/17/18 Joshua Camacho (Hist) [address] [facility] [address] Specialty Cyber Engineer Cardiology 09/19/18 Edith Taylor MD [address] [place] [address] Specialty Cyber Engineer Gastroenterology 09/19/18 Bonita Naqvi [address] [place] [address] Specialty Cyber Engineer Rheumatology 09/19/18 No, Referral Referring Cardiology 06/26/19 Eric Crooks MD [address] [place] [address] Primary Staff Physician Cardiology 02/11/20 Tomasz Garay MD [address] [facility] [place] [address] Cardiology 11/24/21 Pattern Assembler Relationship Specialty Start Date End Date Vargas Mujica PA [address] [place], [place] [id number] PCP - General Internal Medicine 09/17/18 Joshua Camacho (Hist) [address] [facility] [place] [address] Specialty Cyber Engineer Cardiology 09/19/18 Edith Taylor MD [address] [place] [address] Specialty Cyber Engineer Gastroenterology 09/19/18 Bonita Naqvi [address] [place] [address] Specialty Cyber Engineer Rheumatology 09/19/18 No, Referral Referring Cardiology 06/26/19 Eric Crooks MD [address] [place] [address] Primary Staff Physician Cardiology 02/11/20 Tomasz Garay MD [address] [place] [address] Cardiology 11/24/21 Pattern Assembler Relationship Specialty Start Date End Date Vargas Mujica PA [address] [place], [place] [id number] PCP - General Internal Medicine 09/17/18 Joshua Camacho (Hist) [address] [facility] [place] [address] (Fax) Specialty Cyber Engineer Cardiology 09/19/18 Edith Taylor MD [address] [place], [place] [id number] Specialty Cyber Engineer Gastroenterology 09/19/18 Bonita Naqvi [address] [place] [address] Specialty Cyber Engineer Rheumatology 09/19/18 No, Referral Referring Cardiology 06/26/19 [facility] [address] [place], [place] [id number] Primary Staff Physician Cardiology 02/11/20 Tomasz Garay MD [address] [facility] [place] [address] Cardiology 11/24/21 Pattern Assembler Relationship Specialty Start Date End Date Vargas Mujica, JUNE [address] [place] [address] PCP - General Internal Medicine 09/17/18 Joshua Camacho (Hist) [address] [place] [address] (Fax) Specialty Cyber Engineer Cardiology 09/19/18 Edith Taylor MD [address] [place] [address] Specialty Cyber Engineer Gastroenterology 09/19/18 Bonita Naqvi [address] [place] [address] Specialty Cyber Engineer Rheumatology 09/19/18 No, Referral Referring Cardiology 06/26/19 Eric Crooks MD [address] [place] [address] Primary Staff Physician Cardiology 02/11/20 Tomasz Garay MD [address] [facility] [place] [address] Cardiology 11/24/21 Pattern Assembler Relationship Specialty Start Date End Date Vargas Mujica PA [address] [place] [address] PCP - General Internal Medicine 09/17/18 Joshua Camacho (Hist) [address] [facility] [place] [address] Specialty Cyber Engineer Cardiology 09/19/18 Edith Taylor MD [address] [place] [address] Specialty Cyber Engineer Gastroenterology 09/19/18 Bonita Naqvi [address] [place] [address] Specialty Cyber Engineer Rheumatology 09/19/18 No, Referral Referring Cardiology 06/26/19 Eric Crooks MD [address] [place] [address] Primary Staff Physician Cardiology 02/11/20 Tomasz Garay MD [address] [place] [address] Cardiology 11/24/21 Pattern Assembler Relationship Specialty Start Date End Date Vargas Mujica PA [address] [place] [address] PCP - General Internal Medicine 09/17/18 Joshua Camacho (Hist) [address] [place] [address] Specialty Cyber Engineer Cardiology 09/19/18 Edith Taylor MD [address] [place] [address] Specialty Cyber Engineer Gastroenterology 09/19/18 Bonita Naqvi [address] [place] [address] Specialty Cyber Engineer Rheumatology 09/19/18 No, Referral Referring Cardiology 06/26/19 Eric Crooks MD [address] [place] [address] Primary Staff Physician Cardiology 02/11/20 Tomasz Garay MD [address] [place] [address] Cardiology 11/24/21 Pattern Assembler Relationship Specialty Start Date End Date Vargas Mujica, PA [address] [place] [address] PCP - General Internal Medicine 09/17/18 Joshua Camacho (Hist) [address] [place] [address] Specialty Cyber Engineer Cardiology 09/19/18 Edith Taylor MD [address] [place] [address] Specialty Cyber Engineer Gastroenterology 09/19/18 Bonita Naqvi [address] [place] [address] Specialty Cyber Engineer Rheumatology 09/19/18 No, Referral Referring Cardiology 06/26/19 Eric Crooks MD [address] [place] [address] Primary Staff Physician Cardiology 02/11/20 Tomasz Garay MD [address] [facility] [place] [address] Cardiology 11/24/21 Pattern Assembler Relationship Specialty Start Date End Date Vargas Mujica, PA [address] [place] [address] PCP - General Internal Medicine 09/17/18 Joshua Camacho (Hist) [address] [facility] [place] [address] Specialty Cyber Engineer Cardiology 09/19/18 Edith Taylor MD [address] [place] [address] Specialty Cyber Engineer Gastroenterology 09/19/18 Bonita Naqvi [address] [place] [address] Specialty Cyber Engineer Rheumatology 09/19/18 No, Referral Referring Cardiology 06/26/19 Eric Crooks MD [address] [place] [address] Primary Staff Physician Cardiology 02/11/20 Tomasz Garay MD [address] [facility] [place] [address] Cardiology 11/24/21 Pattern Assembler Relationship Specialty Start Date End Date Vargas Mujica, PA [address] [place] [address] PCP - General Internal Medicine 09/17/18 Joshua Camacho (Hist) [address] [facility] [address] Specialty Cyber Engineer Cardiology 09/19/18 Edith Taylor MD [address] [place], [place] [id number] Specialty Cyber Engineer Gastroenterology 09/19/18 Bonita Naqvi [address] [place] [address] Specialty Cyber Engineer Rheumatology 09/19/18 No, Referral Referring Cardiology 06/26/19 Eric Crooks MD [address] [place] [address] Primary Staff Physician Cardiology 02/11/20 Tomasz Garay MD [address] [facility] [place], [place] 9967[address] Cardiology 11/24/21 Pattern Assembler Relationship Specialty Start Date End Date Vargas Mujica PA [address] [place] [address] PCP - General Internal Medicine 09/17/18 Joshua Camacho (Hist) [address] [place], [place] 847011 Specialty Cyber Engineer Cardiology 09/19/18 Edith Taylor MD [address] [place] [address] Specialty Cyber Engineer Gastroenterology 09/19/18 Bonita Naqvi [address] [place] [address] Specialty Cyber Engineer Rheumatology 09/19/18 No, Referral Referring Cardiology 06/26/19 Eric Crooks MD [address] [place] [address] Primary Staff Physician Cardiology 02/11/20 Tomasz Garay MD [address] [place] [address] Cardiology 11/24/21 Pattern Assembler Relationship Specialty Start Date End Date Vargas Mujica PA [address] [place], [place] [id number] PCP - General Internal Medicine 09/17/18 Joshua Camacho (Hist) [address] [facility] [address] (Fax) Specialty Cyber Engineer Cardiology 09/19/18 Edith Taylor MD [address] [place], [place] [id number] Specialty Cyber Engineer Gastroenterology 09/19/18 Bonita Naqvi [address] [facility] [place] [address] Specialty Cyber Engineer Rheumatology 09/19/18 No, Referral Referring Cardiology 06/26/19 Eric Crooks MD [address] [place] [address] Primary Staff Physician Cardiology 02/11/20 Tomasz Garay MD [address] [facility] [address] Cardiology 11/24/21 Pattern Assembler Relationship Specialty Start Date End Date Vargas Mujica PA [address] [place] [address] PCP - General Internal Medicine 09/17/18 Joshua Camacho (Hist) [address] [place] [address] Specialty Cyber Engineer Cardiology 09/19/18 Edith Taylor MD Specialty Cyber Engineer Gastroenterology 09/19/18 Bonita Naqvi [address] [facility] [address] Specialty Cyber Engineer Rheumatology 09/19/18 No, Referral Referring Cardiology 06/26/19 Eric Crooks MD [address] [place], [place] 1088495 Primary Staff Physician Cardiology 02/11/20 Tomasz Garay MD [address] [place], [place] [id number] Cardiology 11/24/21 Pattern Assembler Relationship Specialty Start Date End Date Vargas Mujica, PA [address] [facility] [place] [address] PCP - General Internal Medicine 09/17/18 Joshua Camacho (Hist) [address] [facility] [place] [id number] Specialty Cyber Engineer Cardiology 09/19/18 Edith Taylor MD [address] [place] [address] Specialty Cyber Engineer Gastroenterology 09/19/18 Bonita Naqvi [address] [place] [address] Specialty Cyber Engineer Rheumatology 09/19/18 No, Referral Referring Cardiology 06/26/19 Eric Crooks MD [address] [place] [address] Primary Staff Physician Cardiology 02/11/20 Tomasz Garay MD [address] [place] [address] Cardiology 11/24/21 Brooks Soto MD [address] [facility] [address] [place] [address] Gastroenterology 02/02/22 Brooks Soto MD [address] [address] Gastroenterology 02/02/22 Hung Emerson MD [address] [place] [address] Pulmonary and Critical Care Medicine 02/02/22 Pattern Assembler Relationship Specialty Start Date End Date Vargas Mujica PA [address] [facility] [place] [address] PCP - General Internal Medicine 09/17/18 Joshua Camacho (Hist) [address] [facility] [place], [place] [id number] Specialty Cyber Engineer Cardiology 09/19/18 Edith Taylor MD [address] [place], [place] [id number] Specialty Cyber Engineer Gastroenterology 09/19/18 Bonita Naqvi [address] [facility] [place] [address] Specialty Cyber Engineer Rheumatology 09/19/18 No, Referral Referring Cardiology 06/26/19 Eric Crooks MD [address] [place], [place] [id number] Primary Staff Physician Cardiology 02/11/20 Tomasz Garay MD [address] [facility] [place] [address] Cardiology 11/24/21 Brooks Soto MD [address] [facility] [address] [place], [place] [id number] Gastroenterology 02/02/22 Brooks Soto MD [address] [address] Gastroenterology 02/02/22 Hung Emerson MD [address] [place] [address] Pulmonary and Critical Care Medicine 02/02/22 Pattern Assembler Relationship Specialty Start Date End Date Vargas Mujica PA [address] [facility] [place] [address] PCP - General Internal Medicine 09/17/18 Joshua Camacho (Hist) [address] [place], [place] [id number] Specialty Cyber Engineer Cardiology 09/19/18 Edith Taylor MD [address] [place], [place] 9654695 Specialty Cyber Engineer Gastroenterology 09/19/18 Bonita Naqvi [address] [place] [address] Specialty Cyber Engineer Rheumatology 09/19/18 No, Referral Referring Cardiology 06/26/19 Eric Crooks MD [address] [place] [address] Primary Staff Physician Cardiology 02/11/20 Tomasz Garay MD [address] [place] [address] Cardiology 11/24/21 Brooks Soto MD [address] [facility] [address] [place] [address] Gastroenterology 02/02/22 Brooks Soto MD 1 [facility] [address] [place] [address] Gastroenterology 02/02/22 Hung Emerson MD [address] [place] [address] Pulmonary and Critical Care Medicine 02/02/22 Pattern Assembler Relationship Specialty Start Date End Date Vargas Mujica PA [address] [place] [address] PCP - General Internal Medicine 09/17/18 Joshua Camacho (Hist) [address] [facility] [place] [address] Specialty Cyber Engineer Cardiology 09/19/18 Edith Taylor MD [address] [place], [place] [id number] Specialty Cyber Engineer Gastroenterology 09/19/18 Bonita Naqvi [address] [place] [address] Specialty Cyber Engineer Rheumatology 09/19/18 No, Referral Referring Cardiology 06/26/19 Eric Crooks MD [address] [place] [address] Primary Staff Physician Cardiology 02/11/20 Tomasz Garay MD [address] [place], [place] 948151 Cardiology 11/24/21 Brooks Soto MD [address] [facility] [address] [place] [address] Gastroenterology 02/02/22 Brooks Soto MD 1 [facility] [address] [place] [address] Gastroenterology 02/02/22 Hung Emerson MD [address] [place] [address] Pulmonary and Critical Care Medicine 02/02/22 Pattern Assembler Relationship Specialty Start Date End Date Vargas Mujica PA [address] [place] [address] PCP - General Internal Medicine 09/17/18 Joshua Camacho (Hist) [address] [place], [place] 897061 (Fax) Specialty Cyber Engineer Cardiology 09/19/18 Edith Taylor MD [address] [place], [place] 0948795 Specialty Cyber Engineer Gastroenterology 09/19/18 Bonita Naqvi [address] [place], [place] [address]07[address] Specialty Cyber Engineer Rheumatology 09/19/18 No, Referral Referring Cardiology 06/26/19 Eric Crooks MD [address] [place] [address] Primary Staff Physician Cardiology 02/11/20 Tomasz Garay MD [address] [place], [place] [id number] Cardiology 11/24/21 Brooks Soto MD [address] [facility] [address] [place] [address] Gastroenterology 02/02/22 Brooks Soto MD 1 [facility] [address] [place] [address] Gastroenterology 02/02/22 Hung Emerson MD [address] [place] [address] Pulmonary and Critical Care Medicine 02/02/22 Pattern Assembler Relationship Specialty Start Date End Date Vargas Mujica PA [address] [facility] [place] [address] PCP - General Internal Medicine 09/17/18 Joshua Camacho (Hist) [address] [place], [place] [phone] (Fax) Specialty Cyber Engineer Cardiology 09/19/18 Edith [address] [facility] [place] [address] Specialty Cyber Engineer Gastroenterology 09/19/18 Bonita Naqvi [address] [place], [place] 446471 Specialty Cyber Engineer Rheumatology 09/19/18 No, Referral Referring Cardiology 06/26/19 Eric Crooks MD [address] [place] [address] Primary Staff Physician Cardiology 02/11/20 Tomasz Garay MD [address] [place], [place] [id number] Cardiology 11/24/21 Brooks Soto MD [address] [facility] [address] [place] [address] Gastroenterology 02/02/22 Brokos Soto MD 1 [facility] [address] [place] [address] Gastroenterology 02/02/22 Hung Emerson MD [address] [place] [address] Pulmonary and Critical Care Medicine 02/02/22 Pattern Assembler Relationship Specialty Start Date End Date Vargas Mujica PA [address] [facility] [place] [address] PCP - General Internal Medicine 09/17/18 Joshua Camacho (Hist) [address] [place], [place] [id number] Specialty Cyber Engineer Cardiology 09/19/18 Edith Taylor MD [address] [place] [address] Specialty Cyber Engineer Gastroenterology 09/19/18 Bonita Naqvi [address] [place] [address] Specialty Cyber Engineer Rheumatology 09/19/18 No, Referral Referring Cardiology 06/26/19 Eric Crooks MD [address] [place], [place] 1138295 Primary Staff Physician Cardiology 02/11/20 Tomasz Garay MD [address] [place] [address] Cardiology 11/24/21 Brooks Soto MD [address] [facility] [address] [place] [address] Gastroenterology 02/02/22 Brooks Soto MD 1 [facility] [address] [place] [address] Gastroenterology 02/02/22 Hung Emerson MD [address] [place] [address] Pulmonary and Critical Care Medicine 02/02/22 Pattern Assembler Relationship Specialty Start Date End Date Vargas Mujica, JUNE [address] [facility] [place] [address] PCP - General Internal Medicine 09/17/18 Joshua Camacho (Hist) [address] [place], [place] 858601 Specialty Cyber Engineer Cardiology 09/19/18 Edith Taylor MD [address] [place] [address] Specialty Cyber Engineer Gastroenterology 09/19/18 Bonita Naqvi L [address] [place] [address] Specialty Cyber Engineer Rheumatology 09/19/18 No, Referral Referring Cardiology 06/26/19 Eric Crooks MD [address] [place] [address] Primary Staff Physician Cardiology 02/11/20 Tomasz Garay MD [address] [place], [place] [id number] Cardiology 11/24/21 Brooks Soto MD [address] [facility] [address] [place] [address] Gastroenterology 02/02/22 Brooks Soto MD 1 [facility] [address] [place] [address] Gastroenterology 02/02/22 Hung Emerson MD [address] [place] [address] Pulmonary and Critical Care Medicine 02/02/22 Pattern Assembler Relationship Specialty Start Date End Date Vargas Mujica, PA [address] [place] [address] PCP - General Internal Medicine 09/17/18 Joshua Camacho (Hist) [address] [place], [place] [id number] Specialty Cyber Engineer Cardiology 09/19/18 Edith Taylor MD [address] [place] [address] Specialty Cyber Engineer Gastroenterology 09/19/18 Bonita Naqvi [address] [facility], [place] [id number] Specialty Cyber Engineer Rheumatology 09/19/18 No, Referral Referring Cardiology 06/26/19 Eric lozada MD [address] [place] [address] Primary Staff Physician Cardiology 02/11/20 Tomasz Garay MD [address] [place], [place] [id number] Cardiology 11/24/21 Brooks Soto MD [address] [place] [address] Gastroenterology 02/02/22 Brooks Soto MD 1 [facility] [address] [place] [address] Gastroenterology 02/02/22 Hung Emerson MD [address] [place] [address] Pulmonary and Critical Care Medicine 02/02/22 Pattern Assembler Relationship Specialty Start Date End Date Vargas Mujica, JUNE [address] [facility] [place] [address] PCP - General Internal Medicine 09/17/18 Joshua Camacho (Hist) [address] [place], [place] [id number] Specialty Cyber Engineer Cardiology 09/19/18 Edith Taylor MD [address] [place] [address] Specialty Cyber Engineer Gastroenterology 09/19/18 Bonita Naqvi [address] [facility] [place] [place] [address] Specialty Cyber Engineer Rheumatology 09/19/18 No, Referral Referring Cardiology 06/26/19 Eric Crooks MD [address] [place] [address] Primary Staff Physician Cardiology 02/11/20 Tomasz Garay MD [address] [place], [place] [phone] Cardiology 11/24/21 Brooks Soto MD [address] [place], [place] [id number] Gastroenterology 02/02/22 Brooks Soto MD 1 [facility] [address] [place] [address] Gastroenterology 02/02/22 Hung Emerson MD [address] [place] [address] Pulmonary and Critical Care Medicine 02/02/22 Pattern Assembler Relationship Specialty Start Date End Date Vargas Mujica PA [address] [facility] [place], [place] [id number] PCP - General Internal Medicine 09/17/18 Joshua Camacho (Hist) [address] [facility] [place], [place] [id number] Specialty Cyber Engineer Cardiology 09/19/18 Edith Taylor MD [address] [place], [place] [id number] Specialty Cyber Engineer Gastroenterology 09/19/18 Bonita Naqvi [address] [facility] [place] [address] Specialty Cyber Engineer Rheumatology 09/19/18 No, Referral Referring Cardiology 06/26/19 Eric Crooks MD [address] [place] [address] Primary Staff Physician Cardiology 02/11/20 Tomasz Garay MD [address] [place], [place] [id number] Cardiology 11/24/21 Brooks Soto MD [address] [place], [place] [id number] Gastroenterology 02/02/22 Brooks Soto MD 1 [facility] [address] [place], [place] [id number] Gastroenterology 02/02/22 Hung Emerson MD [address] [place] [address] Pulmonary and Critical Care Medicine 02/02/22 Pattern Assembler Relationship Specialty Start Date End Date Vargas Mujica, JUNE [address] [facility] [place] [address] PCP - General Internal Medicine 09/17/18 Joshua Camacho (Hist) [address] [place] [address] Specialty Cyber Engineer Cardiology 09/19/18 Edith Taylor MD [address] [place] [address] Specialty Cyber Engineer Gastroenterology 09/19/18 Bonita Naqvi [address] [place] [address] Specialty Cyber Engineer Rheumatology 09/19/18 No, Referral Referring Cardiology 06/26/19 Eric Crooks MD [address] [place] [address] Primary Staff Physician Cardiology 02/11/20 Tomasz Garay MD [address] [place] [address] Cardiology 11/24/21 Brooks Soto MD 4302 [facility] [address] [place], [place] [id number] Gastroenterology 02/02/22 Brooks Soto MD 1 [facility] [address] [place], [place] [id number] Gastroenterology 02/02/22 Hung Emerson MD [address] [place] [address] Pulmonary and Critical Care Medicine 02/02/22 Pattern Assembler Relationship Specialty Start Date End Date Vargas Mujica, JUNE 2021 [address] [facility] [place] [address] PCP - General Internal Medicine 09/17/18 Joshua Camacho (Hist) [address] [facility] [place] [id number] Specialty Cyber Engineer Cardiology 09/19/18 Edith Taylor MD [address] [place], [place] [id number] Specialty Cyber Engineer Gastroenterology 09/19/18 Bonita Naqvi [address] [place] [address] Specialty Cyber Engineer Rheumatology 09/19/18 No, Referral Referring Cardiology 06/26/19 Eric Crooks MD [address] [place], [place] 2573195 Primary Staff Physician Cardiology 02/11/20 Tomasz Garay MD [address] E [facility] [place], [place] [id number] Cardiology 11/24/21 Brooks Soto MD [address] [place] [address] Gastroenterology 02/02/22 Brooks Soto MD 1 [facility] [address] [place] [address] Gastroenterology 02/02/22 uHng Emerson MD [address] [place] [address] Pulmonary and Critical Care Medicine 02/02/22 Pattern Assembler Relationship Specialty Start Date End Date Vargas Mujica PA [address] [place] [address] PCP - General Internal Medicine 09/17/18 Joshua Camacho (Hist) [address] [place], [place] [id number] Specialty Cyber Engineer Cardiology 09/19/18 Edith Taylor MD [address] [place], [place] 6880595 Specialty Cyber Engineer Gastroenterology 09/19/18 Bonita Naqvi [address] [place] [address] Specialty Cyber Engineer Rheumatology 09/19/18 No, Referral Referring Cardiology 06/26/19 Eric Crooks MD [address] [place], [place] [id number] Primary Staff Physician Cardiology 02/11/20 Tomasz Garay MD [address] [place] [address] Cardiology 11/24/21 Brooks Soto MD 4302 [facility] [address] [place] [address] Gastroenterology 02/02/22 Brooks Soto MD 1 [facility] [address] [place] [address] Gastroenterology 02/02/22 Hung Emerson MD [address] [place] [address] Pulmonary and Critical Care Medicine 02/02/22 Pattern Assembler Relationship Specialty Start Date End Date Vargas Mujica PA [address] [place], [place] [id number] PCP - General Internal Medicine 09/17/18 Joshua Camacho (Hist) [address] [facility] [place] [id number] Specialty Cyber Engineer Cardiology 09/19/18 Edith Taylor MD [address] [place], [place] 4703995 Specialty Cyber Engineer Gastroenterology 09/19/18 Bonita Naqvi [address] [place] [address] Specialty Cyber Engineer Rheumatology 09/19/18 No, Referral Referring Cardiology 06/26/19 Eric Crooks MD [address] [place], [place] [id number] Primary Staff Physician Cardiology 02/11/20 Tomasz Garay MD [address] [facility] [place] [address] Cardiology 11/24/21 Brooks Soto MD [address] [facility] [address] [place] [address] Gastroenterology 02/02/22 Brooks Soto MD 1 [facility] [address] [place] [address] Gastroenterology 02/02/22 Hung Emerson MD [address] [place] [address] Pulmonary and Critical Care Medicine 02/02/22 Pattern Assembler Relationship Specialty Start Date End Date Vargas Mujica PA 2021 [address] [facility] [place] [address] PCP - General Internal Medicine 09/17/18 Joshua Camacho (Hist) [address] [facility] [place], [place] [id number] Specialty Cyber Engineer Cardiology 09/19/18 Edith Taylor MD [address] [place] [address] Specialty Cyber Engineer Gastroenterology 09/19/18 Bonita Naqvi [address] [place], [place] 311061 Specialty Cyber Engineer Rheumatology 09/19/18 No, Referral Referring Cardiology 06/26/19 Eric Crooks MD [address] [place] [address] Primary Staff Physician Cardiology 02/11/20 Tomasz Garay MD 7[address] [facility] [place], [place] [id number] Cardiology 11/24/21 Brooks Soto MD [address] [facility] [address] [place] [address] Gastroenterology 02/02/22 Brooks Soto MD 1 [facility] [address] [place] [address] Gastroenterology 02/02/22 Hung Emerson MD [address] [place] [address] Pulmonary and Critical Care Medicine 02/02/22 Pattern Assembler Relationship Specialty Start Date End Date Vargas Mujica PA 2021 [address] [facility] [place] [address] PCP - General Internal Medicine 09/17/18 Joshua Camacho (Hist) [address] [facility] [place] [id number] Specialty Cyber Engineer Cardiology 09/19/18 Edith Taylor MD [address] [place] [address] Specialty Cyber Engineer Gastroenterology 09/19/18 Bonita Naqvi [address] [place], [place] 74587691 Specialty Cyber Engineer Rheumatology 09/19/18 No, Referral Referring Cardiology 06/26/19 Eric Crooks MD [address] [place] [address] Primary Staff Physician Cardiology 02/11/20 Tomasz Garay MD [address] [place], [place] [id number] Cardiology 11/24/21 Brooks Soto MD 4302 [facility] 140 [place], [place] [id number] Gastroenterology 02/02/22 Brooks Soto MD 1 [facility] [address] [place] [address] Gastroenterology 02/02/22 Hung Emerson MD [address] [place] [address] Pulmonary and Critical Care Medicine 02/02/22 Pattern Assembler Relationship Specialty Start Date End Date Vargas Mujica, JUNE 2021 [address] [facility] [place] [address] PCP - General Internal Medicine 09/17/18 Joshua Camacho (Hist) [address] [place], [place] [id number] Specialty Cyber Engineer Cardiology 09/19/18 Edith Taylor MD [address] [place] [address] Specialty Cyber Engineer Gastroenterology 09/19/18 Bonita Naqvi [address] [place] [address] Specialty Cyber Engineer Rheumatology 09/19/18 No, Referral Referring Cardiology 06/26/19 Eric Crooks MD [address] [place], [place] 2059395 Primary Staff Physician Cardiology 02/11/20 Tomasz Garay MD [address] [facility] [place] [address] Cardiology 11/24/21 Brooks Soto MD 4302 [facility] 140 [place] [address] Gastroenterology 02/02/22 Brooks Soto MD 1 [facility] [address] [place] [address] Gastroenterology 02/02/22 Hung Emerson MD [address] [place] [address] Pulmonary and Critical Care Medicine 02/02/22 Pattern Assembler Relationship Specialty Start Date End Date Vargas Mujica PA 2021 [address] [facility] [place], [place] [id number] PCP - General Internal Medicine 09/17/18 Joshua Camacho (Hist) [address] [facility] [place] [id number] Specialty Cyber Engineer Cardiology 09/19/18 Edith Taylor MD [address] [place] [address] Specialty Cyber Engineer Gastroenterology 09/19/18 Bonita Naqvi [address] [place] [address] Specialty Cyber Engineer Rheumatology 09/19/18 No, Referral Referring Cardiology 06/26/19 Eric Crooks MD [address] [place], [place] 7848695 Primary Staff Physician Cardiology 02/11/20 Tomasz Garay MD [address] [place] [address] Cardiology 11/24/21 Brooks Stoo MD [address] [place] [address] Gastroenterology 02/02/22 Brooks Soto MD 1 [facility] [address] [place] [address] Gastroenterology 02/02/22 Hung Emerson MD [address] [place] [address] Pulmonary and Critical Care Medicine 02/02/22 Pattern Assembler Relationship Specialty Start Date End Date Vargas Mujica, JUNE 2021 [address] [facility] [place] [address] PCP - General Internal Medicine 09/17/18 Joshua Camacho (Hist) [address] [place] [address] Specialty Cyber Engineer Cardiology 09/19/18 Edith Taylor MD [address] [place] [address] Specialty Cyber Engineer Gastroenterology 09/19/18 Bonita Naqvi [address] [place] [address] Specialty Cyber Engineer Rheumatology 09/19/18 No, Referral Referring Cardiology 06/26/19 Eric Crooks MD [address] [place] [address] Primary Staff Physician Cardiology 02/11/20 Tomasz Garay MD [address] [place], [place] [id number] Cardiology 11/24/21 Brooks Soto MD [address] [facility] [address] [place] [address] Gastroenterology 02/02/22 Brooks Soto MD 1 [facility] [address] [place] [address] Gastroenterology 02/02/22 Hung Emerson MD [address] [place] [address] Pulmonary and Critical Care Medicine 02/02/22 Pattern Assembler Relationship Specialty Start Date End Date Vargas Mujica, PA 2021 [facility] [place], [place] [id number] PCP - General Internal Medicine 09/17/18 Joshua Camacho (Hist) [address] [place], [place] [id number] Specialty Cyber Engineer Cardiology 09/19/18 Edith Taylor MD [address] [place] [address] Specialty Cyber Engineer Gastroenterology 09/19/18 Bonita Naqvi [address] [place] [address] Specialty Cyber Engineer Rheumatology 09/19/18 No, Referral Referring Cardiology 06/26/19 Eric Crooks MD [address] [place] [address] Primary Staff Physician Cardiology 02/11/20 Tomasz Garay MD [address] [place], [place] [id number] Cardiology 11/24/21 Brooks Soto MD [address] [place], [place] [id number] Gastroenterology 02/02/[address] [facility] [facility] [address] [place] [address] Gastroenterology 02/02/22 Hung Emerson MD [address] [place] [address] Pulmonary and Critical Care Medicine 02/02/22 Pattern Assembler Relationship Specialty Start Date End Date Vargas Mujica PA 2021 [address] [facility] [place], [place] [id number] PCP - General Internal Medicine 09/17/18 Joshua Camacho [address] [facility] [place], [place] [id number] Specialty Cyber Engineer Cardiology 09/19/18 Edith Taylor MD [address] [place] [address] Specialty Cyber Engineer Gastroenterology 09/19/18 Bonita Naqvi [address] [facility] [place] [address] Specialty Cyber Engineer Rheumatology 09/19/18 No, Referral Referring Cardiology 06/26/19 Eric Crooks MD [address] [place] [address] Primary Staff Physician Cardiology 02/11/20 Tomasz Garay MD [address] [facility] [place] [address] Cardiology 11/24/21 Brooks Soto MD [address] [place] [address] Gastroenterology 02/02/22 Brooks Soto MD [address] [place] [address] [place] [address] Gastroenterology 02/02/22 Hung Emerson MD [address] [place] [address] Pulmonary and Critical Care Medicine 02/02/22 Pattern Assembler Relationship Specialty Start Date End Date Vargas Mujica PA 2021 [address] [facility] [place] [address] PCP - General Internal Medicine 09/17/18 Joshua Camacho [address] [place], [place] [id number] Specialty Cyber Engineer Cardiology 09/19/18 Edith Taylor MD [address] [place], [place] 9747495 Specialty Cyber Engineer Gastroenterology 09/19/18 Bonita Naqvi [address] [place] [address] Specialty Cyber Engineer Rheumatology 09/19/18 No, Referral Referring Cardiology 06/26/19 Eric Crooks MD [address] [place] [address] Primary Staff Physician Cardiology 02/11/20 Tomasz Garay MD [address] [place] [address] Cardiology 11/24/21 Brooks Soto MD [address] [facility] 140 [place], [place] [id number] Gastroenterology 02/02/22 Brooks Soto MD 1 [facility] [address] [place] [address] Gastroenterology 02/02/22 Hnug mEerson MD [address] [place] [address] Pulmonary and Critical Care Medicine 02/02/22 Pattern Assembler Relationship Specialty Start Date End Date Vargas Mujica PA 2021 [address] [facility] [place] [address] PCP - General Internal Medicine 09/17/18 Joshua Camacho [address] [place], [place] 713331 Specialty Cyber Engineer Cardiology 09/19/18 Edith Taylor MD [address] [place], [place] 5839095 Specialty Cyber Engineer Gastroenterology 09/19/18 Bonita Naqvi [address]27 [facility] [place] 101[address]81 Specialty Cyber Engineer Rheumatology 09/19/18 No, Referral Referring Cardiology 06/26/19 Eric Crooks MD [address] [place], [place] 5820595 Primary Staff Physician Cardiology 02/11/20 Tomasz Garay MD [address] [place] [address] Cardiology 11/24/21 Brooks Soto MD [address] [place] [address] Gastroenterology 02/02/22 Brooks Soto MD [address] [address] Gastroenterology 02/02/22 Hung Emerson MD [address] [place] [address] Pulmonary and Critical Care Medicine 02/02/22 Pattern Assembler Relationship Specialty Start Date End Date Vargas Mujica PA 2021 [address] [facility] [place] [address] PCP - General Internal Medicine 09/17/18 Joshua Camacho [address] [place] [address] Specialty Cyber Engineer Cardiology 09/19/18 Edith Taylor MD [address] [place], [place] [id number] Specialty Cyber Engineer Gastroenterology 09/19/18 Bonita Naqvi [address] [place] [address] Specialty Cyber Engineer Rheumatology 09/19/18 No, Referral Referring Cardiology 06/26/19 Eric Crooks MD [address] [place] [address] Primary Staff Physician Cardiology 02/11/20 Tomasz Garay MD [address] [place] [address] Cardiology 11/24/21 Brooks Soto MD [address] [facility] [address] [place] [address] Gastroenterology 02/02/22 Brooks Soto MD 1 [facility] [address] [place] [address] Gastroenterology 02/02/22 Hung Emerson MD [address] [place] [address] Pulmonary and Critical Care Medicine 02/02/22 Team [...] Active Team Status: Inactive Member Role Status JUNE Graham Primary Care Provider Active Dr. Aftab Sutton MD Emergency Provider Active Pattern Assembler Relationship Specialty Start Date End Date Vargas Muijca PA 2021 [place] [address] PCP - General Internal Medicine 09/17/18 Joshua Camacho [address] [facility] [place] [id number] Specialty Cyber Engineer Cardiology 09/19/18 Edith Taylor MD [address] [place], [place] 9599195 Specialty Cyber Engineer Gastroenterology 09/19/18 Bonita Naqvi [address] [facility] [place] [address] Specialty Cyber Engineer Rheumatology 09/19/18 No, Referral Referring Cardiology 06/26/19 Eric Crooks MD [address] [place], [place] 6015395 Primary Staff Physician Cardiology 02/11/20 Tomasz Garay MD [address] [facility] [place] [address] Cardiology 11/24/21 Brooks Soto MD [address] [facility] [address] [place] [address] Gastroenterology 02/02/22 Brooks Soto MD 1 [facility] [address] [place] [address] Gastroenterology 02/02/22 Hung Emerson MD [address] [place] [address] Pulmonary and Critical Care Medicine 02/02/22 Team Status: Inactive Member Role Status Dates JUNE Graham Primary Care Provider Active Dr. Aftab Sutton MD Attending Provider, Emergency Pr ovider Active Team Status: Inactive Member Role Status Dates JUNE Graham Primary Care Provider Active Dr. Garry Conn , DO Emergency Provider Active Pattern Assembler Relationship Specialty Start Date End Date Vargas Mujica PA 2021 [address] [facility] [place] [address] PCP - General Internal Medicine 09/17/18 Joshua Camacho [address] [place], [place] [id number] Specialty Cyber Engineer Cardiology 09/19/18 Edith Taylor MD [address] [place] [address] Specialty Cyber Engineer Gastroenterology 09/19/18 Bonita Naqvi [address] [place] [address] Specialty Cyber Engineer Rheumatology 09/19/18 No, Referral Referring Cardiology 06/26/19 Eric Crooks MD [address] [place], [place] 3548495 Primary Staff Physician Cardiology 02/11/20 Tomasz Garay MD [address] [place], [place] 414961 Cardiology 11/24/21 Brooks Soto MD [address] [facility] [address] [place], [place] 6468[address]24 Gastroenterology 02/02/22 Brooks Soto MD 1 [facility] [address] [place] [address] Gastroenterology 02/02/22 Hung Emerson MD [address] [place] [address] Pulmonary and Critical Care Medicine 02/02/22 Pattern Assembler Relationship Specialty Start Date End Date Vargas Mujica PA-C [address] [place], [place] [id number] PCP - General 04/30/19 Pattern Assembler Relationship Specialty Start Date End Date Vargas Mujica PA [address] [place], [place] 1042005 PCP - General Internal Medicine 09/17/18 Joshua Camacho [address] [facility] [place], [place] 705801 Specialty Cyber Engineer Cardiology 09/19/18 Edith Taylor MD [address] [place], [place] 9070795 Specialty Cyber Engineer Gastroenterology 09/19/18 Bonita Naqvi [address] [place], [place] 350311 Specialty Cyber Engineer Rheumatology 09/19/18 No, Referral Referring Cardiology 06/26/19 Eric Crooks MD [address] [place] [address] Primary Staff Physician Cardiology 02/11/20 Tomasz Garay MD [address] [place] [address] Cardiology 11/24/21 Brooks Soto MD 4302 [facility] 140 [place] [address] Gastroenterology 02/02/22 Brooks Soto MD [address] [address] Gastroenterology 02/02/22 Hung Emerson MD [address] [place] [address] Pulmonary and Critical Care Medicine 02/02/22 Pattern Assembler Relationship Specialty Start Date End Date Vargas Mujica PA-C [address] [place] [address] PCP - General 04/30/19 Vargas Mujica PA-C [address] [place] [address] PCP - MMO ACO PCP 02/25/23 Team Status: Inactive Member Role Status Dates JUNE Graham Primary Care Provider Active Dr. Anam Garcia MD Attending Provider, Emergency Provi scott Active Pattern Assembler Relationship Specialty Start Date End Date Vargas Mujica PA [address] [place] [address] PCP - General Internal Medicine 09/17/18 Joshua Camacho [address] [place], [place] 617541 Specialty Cyber Engineer Cardiology 09/19/18 Edith Taylor [address] [facility] [place] [id number] Specialty Cyber Engineer Gastroenterology 09/19/18 Bonita Naqvi [address] [place], [place] [id number] Specialty Cyber Engineer Rheumatology 09/19/18 No, Referral Referring Cardiology 06/26/19 Eric Crooks MD [address] [place], [place] 9279995 Primary Staff Physician Cardiology 02/11/20 Tomasz Garay MD [address] E [facility] [place], [place] [phone] Cardiology 11/24/21 Brooks Soto MD [address] [facility] [address] [place] [address] Gastroenterology 02/02/22 Brooks Soto MD 1 [facility] [address] [place] [address] Gastroenterology 02/02/22 Hung Emerson MD [address] [place] [address] Pulmonary and Critical Care Medicine 02/02/22 Pattern Assembler Relationship Specialty Start Date End Date Vargas Mujica PA [address] [place] [address] PCP - General Internal Medicine 09/17/18 Joshua Camacho [address] [place], [place] 957801 Specialty Cyber Engineer Cardiology 09/19/18 Edith Taylor MD [address] [place] [address] Specialty Cyber Engineer Gastroenterology 09/19/18 Bonita Naqvi [address] [facility] [place], [place] 805561 Specialty Cyber Engineer Rheumatology 09/19/18 No, Referral Referring Cardiology 06/26/19 Eric Crooks MD [address] [place] [address] Primary Staff Physician Cardiology 02/11/20 Tomasz Garay MD [address] [place] [address] Cardiology 11/24/21 Brooks Soto MD 4302 [facility] 140 [place] [address] Gastroenterology 02/02/22 Brooks Soto MD 1 [facility] [address] [place] [address] Gastroenterology 02/02/22 Hung Emerson MD [address] [place] [address] Pulmonary and Critical Care Medicine 02/02/22 Pattern Assembler Relationship Specialty Start Date End Date Varags Mujica PA [address] [place] [address] PCP - General Internal Medicine 09/17/18 Joshua Camacho [address] [place], [place] [id number] Specialty Cyber Engineer Cardiology 09/19/18 Edith Taylor MD [address] [place] [address] Specialty Cyber Engineer Gastroenterology 09/19/18 Bonita Naqvi [address] [place] [address] Specialty Cyber Engineer Rheumatology 09/19/18 No, Referral Referring Cardiology 06/26/[address] [facility] [place] [address] Primary Staff Physician Cardiology 02/11/20 Tomasz Garay MD [address] [place] [address] Cardiology 11/24/21 Brooks Soto MD 4302 [facility] 140 [place] [address] Gastroenterology 02/02/22 Brooks Soto MD [address] [address] Gastroenterology 02/02/22 Hung Emerson MD [address] [place] [address] Pulmonary and Critical Care Medicine 02/02/22 Pattern Assembler Relationship Specialty Start Date End Date Vargas Mujica PA [address] [place] [address] PCP - General Internal Medicine 09/17/18 Joshua Camacho [address] [facility] [place], [place] 974771 Specialty Cyber Engineer Cardiology 09/19/18 Edith Taylor MD [address] [place] [address] Specialty Cyber Engineer Gastroenterology 09/19/18 Bonita Naqvi [address] [place], [place] 840201 Specialty Cyber Engineer Rheumatology 09/19/18 No, Referral Referring Cardiology 06/26/19 Eric Crooks MD [address] [place] [address] Primary Staff Physician Cardiology 02/11/20 Tomasz Garay MD [address] [facility] [place] [address] Cardiology 11/24/21 Brooks Soto MD [address] [facility] [address] [place] [address] Gastroenterology 02/02/22 Brooks Soto MD 1 [facility] [address] [place] [address] Gastroenterology 02/02/22 Hung Emerson MD [address] [place] [address] Pulmonary and Critical Care Medicine 02/02/22 Pattern Assembler Relationship Specialty Start Date End Date Vargas Mujica PA [address] [place] [address] PCP - General Internal Medicine 09/17/18 Joshua Camacho [address] [facility] [place] [address] Specialty Cyber Engineer Cardiology 09/19/18 Edith Taylor MD [address] [place], [place] [id number] Specialty Cyber Engineer Gastroenterology 09/19/18 Bonita Naqvi [address] [place], [place] 883831 Specialty Cyber Engineer Rheumatology 09/19/18 No, Referral Referring Cardiology 06/26/19 Eric Crooks MD [address] [place] [address] Primary Staff Physician Cardiology 02/11/20 Tomasz Garay MD [address] [place], [place] [id number] Cardiology 11/24/21 Brooks Soto MD [address] [facility] 140 [place], [place] [address] Gastroenterology 02/02/22 Brooks Soto MD 1 [facility] [address] [place] [address] Gastroenterology 02/02/22 Hung Emerson MD [address] [place] [address] Pulmonary and Critical Care Medicine 02/02/22 Pattern Assembler Relationship Specialty Start Date End Date Vargas Mujica PA [address] [place] [address] PCP - General Internal Medicine 09/17/18 Joshua Camacho [address] [place], [place] 034981 Specialty Cyber Engineer Cardiology 09/19/18 Edith Taylor MD [address] [place] [address] Specialty Cyber Engineer Gastroenterology 09/19/18 Bonita Naqvi [address] [place] [address] Specialty Cyber Engineer Rheumatology 09/19/18 No, Referral Referring Cardiology 06/26/19 Eric Crooks MD [address] [place], [place] [id number] Primary Staff Physician Cardiology 02/11/20 Tomasz Garay MD [address] [facility] [place] [address] Cardiology 11/24/21 Brooks Soto MD [address] [facility] [address] [place], [place] [id number] Gastroenterology 02/02/22 Brooks Soto MD 1 [facility] [address] [place] [address] Gastroenterology 02/02/22 Hung Emerson MD [address] [place] [address] Pulmonary and Critical Care Medicine 02/02/22 Pattern Assembler Relationship Specialty Start Date End Date Vargas Mujica PA [address] [facility] [place] [address] PCP - General Internal Medicine 09/17/18 Joshua Camacho [address] [facility] [place], [place] [address] Specialty Cyber Engineer Cardiology 09/19/18 Edith Taylor MD [address] [place] [address] Specialty Cyber Engineer Gastroenterology 09/19/18 Bonita Naqvi [address] [place], [place] [address] Specialty Cyber Engineer Rheumatology 09/19/18 No, Referral Referring Cardiology 06/26/19 Eric Crooks MD [address] [place] [address] Primary Staff Physician Cardiology 02/11/20 Pattern Assembler Relationship Specialty Start Date End Date Vargas Mujica PA [address] [place] [address] PCP - General Internal Medicine 09/17/18 Joshua Camacho [address] [place], [place] [id number] Specialty Cyber Engineer Cardiology 09/19/18 Edith Taylor MD [address] [place], [place] [id number] Specialty Cyber Engineer Gastroenterology 09/19/18 Bonita Naqvi [address] [place] [address] Specialty Cyber Engineer Rheumatology 09/19/18 No, Referral Referring Cardiology 06/26/19 Eric Crooks MD [address] [place] [address] Primary Staff Physician Cardiology 02/11/20 Tomasz Garay MD [address] [facility] [place] [address] Cardiology 11/24/21 Brooks Soto MD [address] [address] Gastroenterology 02/02/22 [address] [facility] [address] [facility] [address] [place] [address] Gastroenterology 02/02/22 Hung Emerson MD [address] [place] [address] Pulmonary and Critical Care Medicine 02/02/22 Pattern Assembler Relationship Specialty Start Date End Date Vargas Mujica PA [address] [facility] [place] [address] PCP - General Internal Medicine 09/17/18 Joshua Camacho [address] [place], [place] [id number] Specialty Cyber Engineer Cardiology 09/19/18 Edith Taylor MD [address] [place] [address] Specialty Cyber Engineer Gastroenterology 09/19/18 Bonita Naqvi [address], [place] [address] Specialty Cyber Engineer Rheumatology 09/19/18 No, Referral Referring Cardiology 06/26/19 [address] [facility] [place] [address] Primary Staff Physician Cardiology 02/11/20 Tomasz Garay MD [address] [place] [address] Cardiology 11/24/21 Brooks Soto MD [address] [facility] [address] [place] [address] Gastroenterology 02/02/22 [address] [facility] [address] [place] [address] Gastroenterology 02/02/22 Hung Emerson MD [address] [place] [address] Pulmonary and Critical Care Medicine 02/02/22 Pattern Assembler Relationship Specialty Start Date End Date Vargas Mujica PA-C [address] [place] [address] PCP - General 04/30/19 Vargas Mujica PA-C [address] [place] [address] PCP - MMO ACO PCP 02/25/23 Pattern Assembler Relationship Specialty Start Date End Date Vargas Mujica PA-C [address] [place] [address] PCP - General 04/30/19 Vargas Mujica PA-C [address] [place] [address] PCP - MMO ACO PCP 02/25/23 Pattern Assembler Relationship Specialty Start Date End Date Vargas Mujica PA-C [address] [place] [address] PCP - General 04/30/19 Vargas Mujica PA-C [address] [place] [address] PCP - MMO ACO PCP 02/25/23 Pattern Assembler Relationship Specialty Start Date End Date Vargas Mujica PA-C [address] [place] [address] PCP - General 04/30/19 Vargas Mujica PA-C [address] [place] [address] PCP - MMO ACO PCP 02/25/23 Pattern Assembler Relationship Specialty Start Date End Date Vargas Mujica PA [address] [place] [address] PCP - General Internal Medicine 09/17/18 Joshua Camacho MD [address] [place] [address] Specialty Cyber Engineer Cardiology 09/19/18 Edith Taylor MD [address] [place], [place] [id number] Specialty Cyber Engineer Gastroenterology 09/19/18 Bonita Naqvi [address] [place] [address] Specialty Cyber Engineer Rheumatology 09/19/18 No, Referral Referring Cardiology 06/26/19 Eric Crooks MD [address] [place], [place] [id number] Primary Staff Physician Cardiology 02/11/20 Tomasz Garay MD [address] [place] [address] Cardiology 11/24/21 Brooks Soto MD [address] [facility] [address] [place] [address] Gastroenterology 02/02/22 Brooks Soto MD [facility] [address] [place] [address] Gastroenterology 02/02/22 Hung Emerson MD [address] [place] [address] Pulmonary and Critical Care Medicine 02/02/22 Pattern Assembler Relationship Specialty Start Date End Date Vargas Mujica PA [address] [facility] [place] [address] PCP - General Internal Medicine 09/17/18 Joshua Camacho MD [address] [place] [address] Specialty Cyber Engineer Cardiology 09/19/18 Edith Taylor MD [address] [place], [place] [id number] Specialty Cyber Engineer Gastroenterology 09/19/18 Bonita Naqvi [address] [place] [address] Specialty Cyber Engineer Rheumatology 09/19/18 No, Referral Referring Cardiology 06/26/19 Eric Crooks MD [address] [place], [place] [id number] Primary Staff Physician Cardiology 02/11/20 Tomasz Garay MD [address] [place] [address] Cardiology 11/24/21 Brooks Soto MD [address] [facility] [address] [place] [address] Gastroenterology 02/02/22 Brooks Soto MD 1 [facility] [address] [place] [address] Gastroenterology 02/02/22 Hung Emerson MD [address] [place] [address] Pulmonary and Critical Care Medicine 02/02/22 Pattern Assembler Relationship Specialty Start Date End Date Vargas Mujica PA [address] [facility] [place] [address] PCP - General Internal Medicine 09/17/18 Joshua Camacho MD [address] [place] [address] Specialty Cyber Engineer Cardiology 09/19/18 Edith Taylor MD [address] [place], [place] [id number] Specialty Cyber Engineer Gastroenterology 09/19/18 Bonita Naqvi [address] [place] [address] Specialty Cyber Engineer Rheumatology 09/19/18 No, Referral Referring Cardiology 06/26/19 Eric Crooks MD [address] [place], [place] [id number] Primary Staff Physician Cardiology 02/11/20 Tomasz Garay MD [address] [facility] [place], [place] [address] Cardiology 11/24/21 Brooks Soto MD [address] [facility] [address] [place] [address] Gastroenterology 02/02/22 Brooks Soto MD 1 [facility] [address] [place] [address] Gastroenterology 02/02/22 Hung Emerson MD [address] [place] [address] Pulmonary and Critical Care Medicine 02/02/22 Pattern Assembler Relationship Specialty Start Date End Date Vargas Mujica PA [address] [place] [address] PCP - General Internal Medicine 09/17/18 Joshua Camacho MD [address] [facility] [place] [address] Specialty Cyber Engineer Cardiology 09/19/18 Edith Taylor MD [address] [place], [place] [id number] Specialty Cyber Engineer Gastroenterology 09/19/18 Bonita Naqvi [address] [place], [place] [address] Specialty Cyber Engineer Rheumatology 09/19/18 No, Referral Referring Cardiology 06/26/19 Eric Crooks MD [address] [place] [address] Primary Staff Physician Cardiology 02/11/20 Tomasz Garay MD [address] [place] [address] Cardiology 11/24/21 Brooks Soto MD [address] [place] [address] Gastroenterology 02/02/22 Brooks Soto MD 1 [facility] [address] [place], [place] [id number] Gastroenterology 02/02/22 Hung Emerson MD [address] [place], [place] [id number] Pulmonary and Critical Care Medicine 02/02/22 Pattern Assembler Relationship Specialty Start Date End Date Vargas Mujica PA-C PCP - General 04/30/19 Goals (unrecognized section and content) Goals may [...] BE BASED ON THE PRIMARY CLINICAL RECORDS. [facility] [employer] [facility]. provides no warranty or guarantee of the accuracy or completeness of information in this document.
--- OUTSIDE RECORDS SUMMARY | 2025-06-14 07:19 | XMS RPT_ITS | CCD ---
Author Organization [facility] CliniSyal Care Team Providers Care Arc Cutter Name Role Phone EDITH MURRAY Admitting Unavailable EDITH MURRAY Attending Unavailable JOSHUA CAMACHO Referring Unavailable IMCA Primary Care Unavailable Redd, Aasef Unavailable Unavailable Guanako, Vargas Unavailable Unavailable Guanako, Vargas B Unavailable Unavailable Shikary, Abbas K Unavailable Unavailable Basali, Ayman H Unavailable Unavailable Zarrabi, Josselyn Unavailable Unavailable [place]anako, Vargas Unavailable Unavailable [place], Vargas B Unavailable Unavailable Redd, Aasef Unavailable Unavailable Zarrabi, Josselyn Unavailable Unavailable [place] Vargas B Unavailable Unavailable Unavailable Unavailable Unavailable Vargas Wei Primary Care Provider [phone] Joshua Camacho (Hist) Unavailable Edith Taylor MD Unavailable Bonita Naqvi Unavailable No, Referral Unavailable Unavailable Eric Crooks MD Unavailable Tomasz Garay MD Unavailable Edith Taylor MD Unavailable Unavailable Brooks Soto MD Unavailable Brooks Soto MD Unavailable Hung Emerson MD Unavailable Vargas Wei Primary Care Provider 1( [phone] Joshua Camacho (Hist) Unavailable Edith Taylor MD Unavailable Vellanki, Bonita L Unavailable No, Referral Unavailable [...] Guanako, Ms. Vargas Browne Referring Unav ailable [place], MsIglesia Browne Primary Care Unav ailable Guanako, Ms. Vargas Browne Attending Unav ailable Zarrabi, Dr. Arcos Attending Unavailable Zarrabi, Dr. Arcos Referring Unavailable [place], Ms. Vargas Browne Primary Care Unav ailable [place], MsIglesia Browne Referring Unav ailable [place], Ms. Vargas Browne Primary Care Unav ailable [place], MsIglesia Browne Attending Unav ailable Grassick, MsIglesia Rios Attending Unavail able [place], Ms. Talya Riso Referring Unavail able [place], Ms. Vargas Browne Primary Care Unav ailable Guanako, Ms. Vargas Browne Attending Unav ailable [place], Ms. Vargas Browne Referring Unav ailable Guanako, . Vargas Browne Primary Care Unav ailable [place], Ms. Vargas Browne Referring Unav ailable [place], Ms. Vargas Browne Primary Care Unav ailable [place], Ms. Vargas Browne Attending Unav ailable Guanako, Ms. Vargas Browne Attending Unav ailable [place], Ms. Vargas Browne Referring Unav ailable [place], Ms. Vargas Browne Primary Care Unav ailable [place] JUNE WATKINS Primary Care Provider JUNE Wei Referring Provider [phone] JUNE Emanuel Attending Provider Guanako PA-C, Vargas B Primary Care Provider Guanako, Ms. Vargas Browne Attending Unav ailable [place], Ms. Vargas Browne Primary Care Unav ailable VARGAS MUJICA PA-C Primary Care Physician [phone] Guanako WATKINS-Vargas Flynn B Unavailable Vargas Wei Primary Care Provider Joshua Camacho Unavailable Brandon COPELAND, Edith Helton Unavailable [phone] Bonita Naqvi Unavailable Valeriy COPELAND, Eric Jules Unavailable Vargas Wei Primary Care Provider Vargas Wei Primary Care Provider VARGAS MUJICA B Referring Unavailable GUANAKO VARGAS B Primary Care Unavailable GUANAKO VARGAS B Primary Care Unavailable GUANAKO VARGAS B Primary Care Unavailable Guanako PA-C, Vargas B Primary Care Provider Guanako WATKINS-CVargas B Unavailable Joshua Camacho MD Unavailable [phone] JALEEL, JOHANNY E Attending Unavailable TRILLA, [facility] Unavaila ble SELF Referring Unavailable Guanako PA, [facility] Care Unavailabl e Guanako PA, Vargas Referring Unavailabl e Negro Shipleyril Attending Unavailable [place] PA, [facility] Care Unavailabl e [place] PA, Vargas Referring Unavailabl e Violetta, [place] Attending Unavailable Sanam Lindsay Attending Unavailable Guanako PA, [facility] Care Unavailabl e Guanako PA, [facility] Care Unavailabl e Sanam Lindsay Attending Unavailable Guanako PA, [facility] Care Unavailabl e Sanam Lindsay Attending Unavailable Guanako PA, [facility] Care Unavailabl e [place] PA, [place] Referring Unavailabl e Essence Huia Attending Unavailable Guanako PA, [facility] Care Unavailabl e Sanam Lindsay Attending Unavailable Guanako PA, [facility] Care Unavailabl e Violetta, [place] Attending Unavailable JALEEL, JOHANNY Referring Unavailable JALEEL, JOHANNY Consulting Unavailable Guanako PA, [facility] Unavailabl e JALEEL, JOHANNY Referring Unavailable JALEEL, JOHANNY Attending Unavailable [place] PA, Vargas Attending Unavailabl e Guanako PA, [facility] Care Unavailabl e [place] PA, [place] Referring Unavailabl e Guanako PA, [facility] Unavailabl e Jl June Referring Unavailable Jl June Attending Unavailable [place] PA, [facility] Unavailabl e Roberts, Lali Referring Unavailable Roberts, Lali Attending Unavailable Guanako PA, [facility] Care Unavailabl e Anam Garcia Attending Unavailable [place] PA, [facility] Care Unavailabl e Garry Conn Attending Unavailable Guanako PA, [place] [facility] Unavailabl e Guanako PA, Vargas Referring Unavailabl e [place] PA, Vargas Attending Unavailabl e Guanako PA, Vargas Attending Unavailabl e Guanako PA, [facility] Care Unavailabl e Guanako PA, Vargas Referring Unavailabl e Gu[place] PA, [place] [facility] Unavailabl e Violetta, [place] Attending Unavailable Fritz, Lali Referring Unavailable [place] PA, Vargas Primary Care UnavailSanam Arreola Attending [...] Translations: [Vicodin TABS] Drug Allergy Rash, Itching [facility] Work Phone: Aminoketones (1 source) buPROPion; Translations: [Wellbutrin] Drug Allergy Rash [facility] Work Phone: Meclizine (1 source) Meclizine; Translations: [meclizine] Drug Allergy Other [facility] Work Phone: Nadolol (1 source) Nadolol; Translations: [nadolol] Drug Allergy Chest Pain [facility] Work Phone: Opioid Agonists Start: 04-20-2022 Telephone encounter Tata umanzor MD Work Phone: [facility] Comment on above: Results Start: 04-19-2022 End: 04-19-2022 Subsequent hospital visit by physician Ct Prep [place] RADIO CT SCAN C BATH Comment on above: Arrived S/P laparoscopic sle mariajose gastrectomy [Z98.84] Start: 04-19-2022 End: 04-19-2022 Patient encounter procedure Marjan Eddy APRN.CNP Work Phone: [facility] Comment on above: S/P laparoscopic sle mariajose gastrectomy (Primary Dx); Right sided abdominal pain; Hepatic fibrosis; History of DVT (deep vein thrombosis) Start: 04-18-2022 Telephone encounter Tata umanzor MD Work Phone: [facility] Comment on above: Patient Update Start: 04-14-2022 Telephone encounter Marjan rangel CNA GNA.COGNOS TM1 DEVELOPER Work Phone: [facility] Comment on above: Surgical Followup Start: 04-12-2022 Telephone encounter Tata umanzor MD Work Phone: [facility] Comment on above: Patient Update (Inpa tient rounding) Start: 04-06-2022 Telephone encounter Tata umanzor MD Work Phone: [facility] Comment on above: Patient Update Start: 04-05-2022 Telephone encounter Marjan rangel CNA GNA.COG[employer] TM1 DEVELOPER Work Phone: [facility] Comment on above: Results Start: 03-31-2022 AUDIT Vargas sun Work Phone: [facility] Work Phone: Start: 03-31-2022 Telephone encounter Tata umanzor MD Work Phone: [facility] Comment on above: Opened In Error Start: 03-31-2022 End: 03-31-2022 ambulatory Marjan Eddy CNA [employer]NA.[employer] TM1 DEVELOPER Work Phone: [facility] Comment on above: Class 3 severe obesi ty due to excess calories with serious comorbidity and body mass index (BMI) of 60.0 to 69.9 in adult (HCC) (Primary Dx); History of DVT (deep vein thrombosis); Elevated liver enzymes Start: 03-31-2022 End: 03-31-2022 Telemedicine consultation with patient Marjan Eddy CNA GNA.[employer] TM1 DEVELOPER Work Phone: [facility] Start: 03-30-2022 ambulatory Ms. Vargas Edenenhall Facility:[id number] Start: 03-30-2022 Encounter for other preprocedural examination Ms. Vargas Browne Guanako Facility:[id number] Start: 03-29-2022 ambulatory Marjan fuller CNA GNA.[employer] TM1 DEVELOPER Work Phone: [facility] Comment on above: Vitamins Start: 03-24-2022 End: 03-24-2022 ambulatory Tata Chakraborty MD Work Phone: [facility] Comment on above: Class 3 severe obesi ty due to excess calories with serious comorbidity and body mass index (BMI) of 60.0 to 69.9 in adult (HCC) (Primary Dx); History of DVT (deep vein thrombosis); AAT (rjupr-7-lxzbrtyxpcb) deficiency (HCC); BRISEYDA (obstructive sleep apnea); NAFLD (nonalcoholic fatty liver disease); Heartburn Start: 03-24-2022 End: 03-24-2022 Telemedicine consultation with patient Tata Chakraborty MD Work Phone: [facility] Start: 03-23-2022 AUDIT Vargas sun Work Phone: [facility] Work Phone: Start: 03-21-2022 ambulatory Marjan fuller CNA [employer] TM1 DEVELOPER Work Phone: [facility] Comment on above: Pre surgical Start: 03-16-2022 AUDIT Vargas sun Work Phone: [facility] Work Phone: Start: 03-16-2022 End: 03-16-[address] Work Phone: [facility] Comment on above: Class 3 severe obesi ty due to excess calories with serious comorbidity and body mass index (BMI) of 60.0 to 69.9 in adult (HCC) (Primary Dx) Start: 03-16-2022 End: 03-16-2022 Telemedicine consultation with patient Amirah Flores RD Work Phone: [facility] Start: 03-15-2022 Telephone encounter Tata umanzor MD Work Phone: [facility] Comment on above: Appointment Start: 03-02-2022 Telephone encounter Nasirn rojas CNA GNA.[employer]GNOS TM1 DEVELOPER Work Phone: Pulmonary Medicine Comment on above: Opened In Error Start: 03-01-2022 Orders Only Tata Chakraborty MD Work Phone: [facility] Comment on above: Morbid obesity (HCC) (Primary Dx) Start: 02-15-2022 End: 02-15-2022 ambulatory Marjan Readjonny CNA GNA.[employer] TM1 DEVELOPER Work Phone: [facility] Comment on above: Class 3 severe obesi ty due to excess calories with serious comorbidity and body mass index (BMI) of 60.0 to 69.9 in adult (HCC) (Primary Dx); Elevated liver enzymes; COVID-19 long hauler; BRISEYDA (obstructive sleep apnea) Dietary counseling a nd surveillance Start: 02-15-2022 End: 02-15-2022 Telemedicine consultation with patient Marjan Readjonny CNA GNA.COGNOS TM1 DEVELOPER Work Phone: [facility] Start: 02-10-2022 Telephone encounter Hung buck MD Work Phone: Pulmonary Medicine Comment on above: FYI-No Action Needed Start: 02-09-2022 Telephone encounter Hung buck MD Work Phone: [facility]monary Medicine Comment on above: Results Letter Start: 02-03-2022 ambulatory Brooks farnsworth MD Work Phone: [facility] Comment on above: Question regarding L IVER FIBROSIS AND ACTIVITY Start: 02-02-2022 Telephone encounter Tata umanzor MD Work Phone: [facility] Comment on above: Medical Clearance Start: 02-02-2022 End: 02-02-2022 Subsequent hospital visit by physician Ghislaine 2 RADIO ULTRA HWC BATH Comment on above: Fatty liver [K76.0] Start: 02-02-2022 End: 02-02-2022 ambulatory Pulm [facility] Comment on above: Shortness of Breath Start: 02-02-2022 End: 02-02-2022 Patient encounter procedure [facility] Start: 01-25-2022 AUDIT Vargas sun Work Phone: [facility] Work Phone: Start: 01-18-2022 End: 01-18-2022 ambulatory Marjan Eddy APRN.COGNOS TM1 DEVELOPER Work Phone: [facility] Comment on above: Class 3 severe obesi ty due to excess calories with serious comorbidity and body mass index (BMI) of 60.0 to 69.9 in adult (HCC) (Primary Dx); Elevated liver enzymes; COVID-19 long hauler; Hepatomegaly Start: 01-18-2022 End: 01-18-2022 Telemedicine consultation with patient Marjan Eddy APRN.COGNOS TM1 DEVELOPER Work Phone: [facility] Start: 01-14-2022 Telephone encounter Hung buck MD Work Phone: Pulmonary Medicine Comment on above: Results Start: 01-13-2022 End: 01-13-2022 Patient encounter procedure Brooks Soto MD Work Phone: [facility] Comment on above: Fatty liver (Primary Dx); Increased liver enzymes; Morbid obesity (HCC) Start: 01-10-2022 Message Vargas sun Work Phone: [facility] Work Phone: Start: 01-04-2022 Result Review Vargas sun Work Phone: [facility] Work Phone: Start: 01-03-2022 End: 01-03-2022 Patient encounter procedure Hung Emerson MD Work Phone: Pulmonary Medicine Comment on above: Dyspnea and respirat ory abnormalities (Primary Dx); Shortness of breath Start: 12-28-2021 ambulatory Ms. Vargas Mujica Facility:[id number] Start: 12-27-2021 Telephone encounter Brooks Soto MD Work Phone: [facility] Comment on above: Appointment Start: 12-27-2021 End: 12-27-2021 ambulatory Amirah Zabalapenny CARMEN Work Phone: [facility] Comment on above: Class 3 severe obesi ty due to excess calories with serious comorbidity and body mass index (BMI) of 60.0 to 69.9 in adult (HCC) (Primary Dx) Start: 12-27-2021 End: 12-27-2021 Telemedicine consultation with patient Amirah Flores RD Work Phone: [facility] Start: 12-24-2021 Telephone encounter Edith Devi MD Work Phone: [facility] Comment on above: possible Hepatitis d iagnosis Start: 12-24-2021 End: 12-24-2021 Patient encounter procedure Marjan Eddy CNA GNA.COGNOS TM1 DEVELOPER Work Phone: [facility] Comment on above: Class 3 severe obesi ty due to excess calories with serious comorbidity and body mass index (BMI) of 60.0 to 69.9 in adult (HCC) (Primary Dx); Elevated liver enzymes; Hepatomegaly; V-tach (HCC); COVID-19 long hauler; Gastroesophageal reflux disease without esophagitis Start: 12-10-2021 Refill Tata Chakraborty MD Work Phone: [facility] Comment on above: Refill Request Start: 12-10-2021 Telephone encounter Tata umanzor MD Work Phone: [facility] Comment on above: Received Outside [facility] Records ([facility]) Start: 12-02-2021 Refill Marjan fuller CNA GNA.COGNOS TM1 DEVELOPER Work Phone: [facility] Comment on above: Refill Request Start: 12-02-2021 Telephone encounter Marjan rangel CNA GNA.COGNOS TM1 DEVELOPER Work Phone: [facility] Comment on above: Radiology US (result s) Start: 12-02-2021 AUDIT Vargas sun Work Phone: [facility] Work Phone: Start: 12-01-2021 Telephone encounter Tata umanzor MD Work Phone: [facility] Comment on above: Appointment Start: 11-30-2021 Admission to [facility] center Tomasz Garay MD Work Phone: Cardiology Comment on above: Surgery release Start: 11-30-2021 ambulatory Tomasz Garay MD Work Phone: [facility] Start: 11-29-2021 AUDIT Vargas sun Work Phone: [facility] Work Phone: Start: 11-29-2021 Telephone encounter Tata umanzor MD Work Phone: [facility] Comment on above: Patient Update (Outs austyn lab results) Start: 11-19-2021 End: 11-19-2021 Refill Tata Chakraborty MD Work Phone: [facility] Comment on above: Refill Request Class 3 severe obesi ty due to excess calories with serious comorbidity and body mass index (BMI) of 60.0 to 69.9 in adult (HCC) (Primary Dx); V-tach ([facility]); COVID-19 long hauler; Elevated liver enzymes; 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 Talya Stevens Facility:[id number] Start: 10-18-2021 AUDIT Vargas Edenmary sun Work Phone: [facility] Work Phone: Start: 09-02-2021 AUDIT Vargas Ayon Pratima sun Work Phone: [facility] Work Phone: Start: 08-19-2021 Office outpatient vi sit 15 minutes Vargas Edenenhall Work Phone: [facility] Work Phone: Start: 07-28-2021 FUV, Provider: Vargas Mujica, Status: Pen, Time: 9:00 AM Vargas [place]all Work Phone: [facility] Work Phone: Start: 07-28-2021 Office outpatient vi sit 25 minutes Vargas Edenenhall Work Phone: [facility] Work Phone: Start: 07-27-2021 Chart Update Vargas Ayon Pratima sun Work Phone: [facility] Work Phone: Start: 07-02-2021 AUDIT Vargas Ayon Pratima sun Work Phone: [facility] Work Phone: Start: 06-08-2021 Chart Update Vargas Ayon Partima eppsall Work Phone: [facility] Work Phone: Start: 06-03-2021 AUDIT Vargas Ayon Pratima eppsall Work Phone: [facility] Work Phone: Start: 05-25-2021 Office outpatient vi sit 25 minutes Vargas Mujica Work Phone: [facility] Work Phone: Start: 05-11-2021 AUDIT Vargas sun Work Phone: [facility] Work Phone: Start: 04-12-2021 AUDIT Vargas sun Work Phone: [facility] Work Phone: Start: 12-19-2020 End: 12-19-2020 Subsequent hospital visit by physician Taty [facility] Shaun Work Phone: Radiology Comment on above: Class 3 severe obesi ty with body mass index (BMI) of 50.0 to 59.9 in adult, unspecified obesity type, unspecified whether serious comorbidity present (HCC) [E66.01, Z68.43] Start: 06-10-2020 Patient encounter procedure Vargaspili Morenoall [facility] Work Phone: Start: 04-20-2020 Patient encounter procedure Vargaspili Mujica [facility] Work Phone: Start: 01-14-2020 Patient encounter procedure Vargas Mujica [facility] Work Phone: Start: 12-23-2019 Patient encounter procedure Vargas Mujica [facility] Work Phone: Start: 12-16-2019 Patient encounter procedure Vargas Mujica [facility] Work Phone: Start: 10-03-2019 Patient encounter procedure Vargas Mujica [facility] Work Phone: Start: 09-18-2018 End: 09-20-2018 Evaluation and management of inpatient EDITH MURRAY Facility:[facility] Patient encounter status Vargas Mujica Work Phone: [facility] Work Phone: Preoperative state Vargas Gabo pinonicole Work Phone: [facility] Work Phone: Procedures Date Procedure Procedure Detail Performing Clinician Start: 06-03-2025 Microscopic observation [Identifier] in Cervix by Cyto stain Vargas Mujica PA-C Work Phone: Start: 06-07-2024 Radex foot complete minimum 3 views Kamilla Coon CNA GNA.COGNOS TM1 DEVELOPER Work Phone: Start: 04-24-2024 Radiologic exam chest 2 views Ami Delgado CNA GNA.COGNOS TM1 DEVELOPER Work Phone: Start: 10-19-2023 CT of [...] Radiologic exam chest 2 views Ami Delgado CNA GNA.COGNOS TM1 DEVELOPER Work Phone: Start: 08-17-2022 Plain chest X-ray Start: 04-19-2022 Ct abdomen & pelvis w/contrast material Marjan Eddy CNA GNA.[employer]GNOS TM1 DEVELOPER Work Phone: Start: 02-02-2022 Us abdominal real time w/image documentation Brooks Soto MD Work Phone: Start: 02-02-2022 Brncdilat rspse spmtry pre&post-brncdilat admn Hung Emerson MD Work Phone: Start: 12-10-2021 Esophagogastrostomy, antesternal or antethoracic Vargas Mujica Work Phone: Start: 12-19-2020 Radiologic exam chest 2 views Marjan rangel CNA GNA.COGNOS TM1 DEVELOPER Work Phone: section Meagan falcon Cholecystectomy [...] of 2) Zoster Vaccines (1 of 2) [facility] Start: 09-25-2028 Lipid panel Lipid Panel [facility] Start: 06-03-2028 Screening for malignant neoplasm of cervix [facility] Start: 09-25-2026 Diabetes mellitus screening Diabetes Screening [facility] Start: 06-02-2026 HPV TESTING HPV TESTING [facility] Start: 06-02-2026 PAP TESTING PAP TESTING [facility] Start: 06-02-2026 Screening for malignant neoplasm of cervix [facility] Start: 09-15-2025 End: 09-15-2025 Patient encounter procedure 09/15/2025 3:20 PM EST Office Visit Cardiology [address] [place] [address] Tomasz Garay MD [address], [address] [place], [place] [id number] bradycardia Cardiology Comment on above: bradycardia Start: 06-26-2025 End: 06-26-2025 Patient encounter procedure 06/26/2025 9:00 AM EDT Office Visit [facility] [address] [place] [id number] Vargas Mujica PA-C [address] [place], [place] [id number] [facility] Start: 06-10-2025 End: 06-10-2026 Dehydroepiandrosterone (DHEA) [Mass/volume] in Serum or Plasma DHEA level Lab Routine Anxiety Fatigue, unspecified type Expected: 06/10/2025 (Approximate), Expires: 06/10/2026 [facility] Work Phone: Comment on above: Expected: 06/10/2025 (Approximate), Expi res: 06/10/2026 Start: 06-10-2025 End: 06-10-2026 Estrogen [Mass/volume] in Serum or Plasma Estrogens, Total Lab Routine Anxiety Fatigue, unspecified type Expected: 06/10/2025 (Approximate), Expires: 06/10/2026 [facility] Work Phone: Comment on above: Expected: 06/10/2025 (Approximate), Expi res: 06/10/2026 Start: 06-10-2025 End: 06-10-2026 Follitropin [Units/volume] in Serum or Plasma FSH Lab Routine Anxiety Fatigue, unspecified type Expected: 06/10/2025 (Approximate), Expires: 06/10/2026 [facility] Work Phone: Comment on above: Expected: 06/10/2025 (Approximate), Expi res: 06/10/2026 Start: 06-10-2025 End: 06-10-2026 Lutropin [Units/volume] in Serum or Plasma Luteinizing hormone Lab Routine Anxiety Fatigue, unspecified type Expected: 06/10/2025 (Approximate), Expires: 06/10/2026 [facility] Work Phone: Comment on above: Expected: 06/10/2025 (Approximate), Expi res: 06/10/2026 Start: 06-10-2025 End: 06-10-2026 Progesterone [Mass/volume] in Serum or Plasma Progesterone Lab Routine Anxiety Fatigue, unspecified type Expected: 06/10/2025 (Approximate), Expires: 06/10/2026 [facility] Work Phone: Comment on above: Expected: 06/10/2025 (Approximate), Expi res: 06/10/2026 Start: 06-10-2025 End: 06-10-2026 Testosterone, total and free Testosterone, total and free Lab Routine Anxiety Fatigue, unspecified type Expected: 06/10/2025 (Approximate), Expires: 06/10/2026 [facility] Work Phone: Comment on above: Expected: 06/10/2025 (Approximate), Expi res: 06/10/2026 Start: 04-28-2025 COVID-19 Vaccine ( season) COVID-19 Vaccine ( season) [facility] Start: 04-28-2025 Influenza vaccination [facility] Start: 01-28-2025 End: 01-28-2025 Patient encounter procedure 01/28/2025 2:30 PM EDT Office Visit [facility] [place] [address] [place] [address] Johanny Marmolejo, CNA [email or web address] [address] [address] sooner f/u than pritesh dunn per [facility] [place] Comment on above: sooner f/u than pritesh dunn per [facility] Start: 01-08-2025 End: 07-11-2025 25-hydroxyvitamin D3 [Mass/volume] in Serum or Plasma Vitamin D 25-Hydroxy,Total (for eval of Vitamin D levels) Lab Routine Vitamin D deficiency Expected: 01/08/2025 (Approximate), Expires: 07/11/2025 [facility] Work Phone: Comment on above: Expected: 01/08/2025 (Approximate), Expi res: 07/11/2025 Start: 01-08-2025 End: 07-11-2025 CBC W Auto Differential panel - Blood CBC and Auto Differential Lab Routine Polyarthralgia Expected: 01/08/2025 (Approximate), Expires: 07/11/2025 [facility] Service Area Work Phone: Comment on above: Expected: 01/08/2025 (Approximate), Expi res: 07/11/2025 Start: 01-08-2025 End: 07-11-2025 Cobalamin (Vitamin B12) [Mass/volume] in Serum or Plasma Vitamin B12 Lab Routine Bariatric surgery status Expected: 01/08/2025 (Approximate), Expires: 07/11/2025 [facility] Work Phone: Comment on above: Expected: 01/08/2025 (Approximate), Expi res: 07/11/2025 Start: 01-08-2025 End: 07-11-2025 Comprehensive metabolic 2000 panel - Serum or Plasma Comprehensive Metabolic Panel Lab Routine Fatty liver disease, nonalcoholic Expected: 01/08/2025 (Approximate), Expires: 07/11/2025 [facility] Work Phone: Comment on above: Expected: 01/08/2025 (Approximate), Expi res: 07/11/2025 Start: 01-08-2025 End: 07-11-2025 Ferritin [Mass/volume] in Serum or Plasma Ferritin Lab Routine Fatty liver disease, nonalcoholic Expected: 01/08/2025 (Approximate), Expires: 07/11/2025 [facility] Work Phone: Comment on above: Expected: 01/08/2025 (Approximate), Expi res: 07/11/2025 Start: 01-08-2025 End: 07-11-2025 Iron and Iron binding capacity panel - Serum or Plasma Iron and TIBC Lab Routine Fatty liver disease, nonalcoholic Expected: 01/08/2025 (Approximate), Expires: 07/11/2025 [facility] Work Phone: Comment on above: Expected: 01/08/2025 (Approximate), Expi res: 07/11/2025 Start: 01-08-2025 End: 07-11-2025 Lipid 1996 panel - Serum or Plasma Lipid Panel Lab Routine 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 Class 3 severe obesity due to excess calories with serious comorbidity and body mass index (BMI) of 50.0 to 59.9 in adult Fatty liver disease, nonalcoholic Expected: 01/08/2025 (Approximate), Expires: 07/11/2025 [facility] Work Phone: Comment on above: Expected: 01/08/2025 (Approximate), Expi res: 07/11/2025 Start: 01-08-2025 End: 07-11-2025 Magnesium [Mass/volume] in Serum or Plasma Magnesium Lab Routine Polyarthralgia Expected: 01/08/2025 (Approximate), Expires: 07/11/2025 [facility] Work Phone: Comment on above: Expected: 01/08/2025 (Approximate), Expi res: 07/11/2025 Start: 01-08-2025 End: 07-11-2025 Opiate/Opioid/Benzo Prescription Compliance Opiate/Opioid/Benzo Prescription Compliance Lab Routine Anxiety Medication management Expected: 01/08/2025 (Approximate), Expires: 07/11/2025 [facility] Work Phone: Comment on above: Expected: 01/08/2025 (Approximate), Expi res: 07/11/2025 Start: 01-08-2025 End: 07-11-2025 Thyrotropin [Units/volume] in Serum or Plasma Thyroid Stimulating Hormone Lab Routine 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 Expected: 01/08/2025 (Approximate), Expires: 07/11/2025 [facility] Work Phone: Comment on above: Expected: 01/08/2025 (Approximate), Expi res: 07/11/2025 Start: 01-08-2025 End: 07-11-2025 Thyroxine (T4) free [Mass/volume] in Serum or Plasma Thyroxine, Free Lab Routine 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 Expected: 01/08/2025 (Approximate), Expires: 07/11/2025 [facility] Work Phone: Comment on above: Expected: 01/08/2025 (Approximate), Expi res: 07/11/2025 Start: 12-28-2024 Diabetes mellitus screening Diabetes Screening [facility] Start: 12-24-2024 End: 12-24-2024 Patient encounter procedure 12/24/2024 8:00 AM EDT Office Visit [facility] [address] [place] [id number] Vargas Mujica PA-C [address] [place] [address] [facility] Start: 11-06-2024 End: 11-06-2025 25-hydroxyvitamin D3 [Mass/volume] in Serum or Plasma Vitamin D 25-Hydroxy,Total (for eval of Vitamin D levels) Lab Routine Vitamin D deficiency Expected: 11/06/2024 (Approximate), Expires: 11/06/2025 [facility] Work Phone: Comment on above: Expected: 11/06/2024 (Approximate), Expi res: 11/06/2025 Start: 11-06-2024 End: 11-06-2025 CBC W Auto Differential panel - Blood CBC and Auto Differential Lab Routine Glucose intolerance (impaired glucose tolerance) Expected: 11/06/2024 (Approximate), Expires: 11/06/2025 [facility] Service Area Work Phone: Comment on above: Expected: 11/06/2024 (Approximate), Expi res: 11/06/2025 Start: 11-06-2024 End: 11-06-2025 Cobalamin (Vitamin B12) [Mass/volume] in Serum or Plasma Vitamin B12 Lab Routine Bariatric surgery status Expected: 11/06/2024 (Approximate), Expires: 11/06/2025 [facility] Work Phone: Comment on above: Expected: 11/06/2024 (Approximate), Expi res: 11/06/2025 Start: 11-06-2024 End: 11-06-2025 Comprehensive metabolic 2000 panel - Serum or Plasma Comprehensive Metabolic Panel Lab Routine Glucose intolerance (impaired glucose tolerance) Expected: 11/06/2024 (Approximate), Expires: 11/06/2025 [facility] Work Phone: Comment on above: Expected: 11/06/2024 (Approximate), Expi res: 11/06/2025 Start: 11-06-2024 End: 11-06-2025 Ferritin [Mass/volume] in Serum or Plasma Ferritin Lab Routine Elevated ferritin level Expected: 11/06/2024 (Approximate), Expires: 11/06/2025 [facility] Work Phone: Comment on above: Expected: 11/06/2024 (Approximate), Expi res: 11/06/2025 Start: 11-06-2024 End: 11-06-2025 Iron and Iron binding capacity panel - Serum or Plasma Iron and TIBC Lab Routine Elevated ferritin level Expected: 11/06/2024 (Approximate), Expires: 11/06/2025 [facility] Work Phone: Comment on above: Expected: 11/06/2024 (Approximate), Expi res: 11/06/2025 Start: 11-06-2024 End: 11-06-2025 Lipid 1996 panel - Serum or Plasma Lipid Panel Lab Routine Glucose intolerance (impaired glucose tolerance) Shahzad's disease Expected: 11/06/2024 (Approximate), Expires: 11/06/2025 [facility] Work Phone: Comment on above: Expected: 11/06/2024 (Approximate), Expi res: 11/06/2025 Start: 11-06-2024 End: 11-06-2025 Magnesium [Mass/volume] in Serum or Plasma Magnesium Lab Routine Bariatric surgery status Expected: 11/06/2024 (Approximate), Expires: 11/06/2025 [facility] Work Phone: Comment on above: Expected: 11/06/2024 (Approximate), Expi res: 11/06/2025 Start: 11-06-2024 End: 11-06-2025 Opiate/Opioid/Benzo Prescription Compliance Opiate/Opioid/Benzo Prescription Compliance Lab Routine Medication management Expected: 11/06/2024 (Approximate), Expires: 11/06/2025 [facility] Work Phone: Comment on above: Expected: 11/06/2024 (Approximate), Expi res: 11/06/2025 Start: 11-06-2024 End: 11-06-2025 Thyrotropin [Units/volume] in Serum or Plasma Thyroid Stimulating Hormone Lab Routine Shahzad's disease Expected: 11/06/2024 (Approximate), Expires: 11/06/2025 [facility] Work Phone: Comment on above: Expected: 11/06/2024 (Approximate), Expi res: 11/06/2025 Start: 11-06-2024 End: 11-06-2025 Thyroxine (T4) free [Mass/volume] in Serum or Plasma Thyroxine, Free Lab Routine Shahzad's disease Expected: 11/06/2024 (Approximate), Expires: 11/06/2025 [facility] Work Phone: Comment on above: Expected: 11/06/2024 (Approximate), Expi res: 11/06/2025 Start: 09-25-2024 Thyroid stimulating hormone measurement TSH Level [facility] Start: 07-11-2024 End: 07-11-2025 FERNANDO + SHAHRIAR Panel [facility] Work Phone: Comment on above: Expected: 07/11/2024 (Approximate), Expi res: 07/11/2025 Start: 07-11-2024 End: 07-11-2025 Cyclic citrullinated peptide IgG Ab [Units/volume] in Serum or Plasma [facility] Work Phone: Comment on above: Expected: 07/11/2024 (Approximate), Expi res: 07/11/2025 Start: 07-11-2024 End: 07-11-2025 XR Cervical spine 2 or 3 Views [facility] Work Phone: Comment on above: Expected: 07/11/2024, Expires: Once for 1 Occurrenc es starting 07/11/2024 until 07/11/2024 Start: 07-11-2024 End: 07-11-2025 XR Lumbar spine 2 or 3 Views [facility] Work Phone: Comment on above: Expected: 07/11/2024, Expires: Once for 1 Occurrenc es starting 07/11/2024 until 07/11/2024 Start: 04-28-2024 Covid-19 Vaccine ( season) Covid-19 Vaccine ( season) [facility] Start: 04-28-2024 Covid-19 Vaccine ( season) Covid-19 Vaccine ( season) [facility] Start: 04-28-2024 Influenza vaccination Influ[facility] (#[facility]) [facility] Start: 04-24-2024 End: 05-08-2024 COVID & INFLUENZA A/B & RSV PCR, ROUTINE COVID & INFLUENZA A/B & RSV PCR, ROUTINE Microbiology Routine URI, acute Expected: 04/24/2024, Expires: 05/08/2024 [facility] Work Phone: Comment on above: Expected: 04/24/2024, Expires: Start: 02-28-2024 End: 02-27-2025 25-hydroxyvitamin D3 [Mass/volume] in Serum or Plasma Vitamin D 25-Hydroxy,Total (for eval of Vitamin D levels) Lab Routine Vitamin D deficiency Expected: 02/28/2024 (Approximate), Expires: 02/27/2025 [facility] Work Phone: Comment on above: Expected: 02/28/2024 (Approximate), Expi res: 02/27/2025 Start: 02-28-2024 End: 02-27-2025 C reactive protein [Mass/volume] in Serum or Plasma C-reactive protein Lab Routine Class 3 severe obesity due to excess calories with serious comorbidity and body mass index (BMI) of 50.0 to 59.9 in adult (Multi) Polyarthralgia Expected: 02/28/2024 (Approximate), Expires: 02/27/2025 [facility] Work Phone: Comment on above: Expected: 02/28/2024 (Approximate), Expi res: 02/27/2025 Start: 02-28-2024 End: 02-27-2025 CBC W Auto Differential panel - Blood CBC and Auto Differential Lab Routine Glucose intolerance (impaired glucose tolerance) Expected: 02/28/2024 (Approximate), Expires: 02/27/2025 [facility] Service Area Work Phone: Comment on above: Expected: 02/28/2024 (Approximate), Expi res: 02/27/2025 Start: 02-28-2024 End: 02-27-2025 Cobalamin (Vitamin B12) [Mass/volume] in Serum or Plasma Vitamin B12 Lab Routine Glucose intolerance (impaired glucose tolerance) Expected: 02/28/2024 (Approximate), Expires: 02/27/2025 [facility] Work Phone: Comment on above: Expected: 02/28/2024 (Approximate), Expi res: 02/27/2025 Start: 02-28-2024 End: 02-27-2025 Comprehensive metabolic 2000 panel - Serum or Plasma Comprehensive Metabolic Panel Lab Routine Glucose intolerance (impaired glucose tolerance) Expected: 02/28/2024 (Approximate), Expires: 02/27/2025 [facility] Work Phone: Comment on above: Expected: 02/28/2024 (Approximate), Expi res: 02/27/2025 Start: 02-28-2024 End: 02-27-2025 Cortisol [Mass/volume] in Saliva (oral fluid) Salivary Cortisol Lab Routine Class 3 severe obesity due to excess calories with serious comorbidity and body mass index (BMI) of 50.0 to 59.9 in adult (Multi) Polyarthralgia Expected: 02/28/2024 (Approximate), Expires: 02/27/2025 [facility] Work Phone: Comment on above: Expected: 02/28/2024 (Approximate), Expi res: 02/27/2025 Start: 02-28-2024 End: 02-27-2025 Cortisol Free [Mass/volume] in Serum or Plasma Cortisol, Free Lab Routine Class 3 severe obesity due to excess calories with serious comorbidity and body mass index (BMI) of 50.0 to 59.9 in adult (Multi) Polyarthralgia Expected: 02/28/2024 (Approximate), Expires: 02/27/2025 [facility] Work Phone: Comment on above: Expected: 02/28/2024 (Approximate), Expi res: 02/27/2025 Start: 02-28-2024 End: 04-30-2025 DBT Breast - bilateral BI mammo bilateral screening tomosynthesis Imaging Routine Generalized anxiety disorder Expected: 02/28/2024, Expires: 04/30/2025 [facility] Work Phone: Comment on above: Expected: 02/28/2024, Expires: Start: 02-28-2024 End: 02-27-2025 Erythrocyte sedimentation rate Sedimentation Rate Lab Routine Class 3 severe obesity due to excess calories with serious comorbidity and body mass index (BMI) of 50.0 to 59.9 in adult (Multi) Polyarthralgia Expected: 02/28/2024 (Approximate), Expires: 02/27/2025 [facility] Work Phone: Comment on above: Expected: 02/28/2024 (Approximate), Expi res: 02/27/2025 Start: 02-28-2024 End: 02-27-2025 Ferritin [Mass/volume] in Serum or Plasma Ferritin Lab Routine Fatty liver disease, nonalcoholic Elevated ferritin level Expected: 02/28/2024 (Approximate), Expires: 02/27/2025 [facility] Work Phone: Comment on above: Expected: 02/28/2024 (Approximate), Expi res: 02/27/2025 Start: 02-28-2024 End: 02-27-2025 Hemoglobin A1c/Hemoglobin.total in Blood Hemoglobin A1C Lab Routine Glucose intolerance (impaired glucose tolerance) Expected: 02/28/2024 (Approximate), Expires: 02/27/2025 [facility] Work Phone: Comment on above: Expected: 02/28/2024 (Approximate), Expi res: 02/27/2025 Start: 02-28-2024 End: 02-27-2025 Iron and Iron binding capacity panel - Serum or Plasma Iron and TIBC Lab Routine Fatty liver disease, nonalcoholic Elevated ferritin level Expected: 02/28/2024 (Approximate), Expires: 02/27/2025 [facility] Work Phone: Comment on above: Expected: 02/28/2024 (Approximate), Expi res: 02/27/2025 Start: 02-28-2024 End: 02-27-2025 Lipid 1996 panel - Serum or Plasma Lipid Panel Lab Routine Glucose intolerance (impaired glucose tolerance) Expected: 02/28/2024 (Approximate), Expires: 02/27/2025 [facility] Work Phone: Comment on above: Expected: 02/28/2024 (Approximate), Expi res: 02/27/2025 Start: 02-28-2024 End: 02-27-2025 Magnesium [Mass/volume] in Serum or Plasma Magnesium Lab Routine Glucose intolerance (impaired glucose tolerance) Expected: 02/28/2024 (Approximate), Expires: 02/27/2025 [facility] Work Phone: Comment on above: Expected: 02/28/2024 (Approximate), Expi res: 02/27/2025 Start: 02-28-2024 End: 02-27-2025 Thyrotropin [Units/volume] in Serum or Plasma Thyroid Stimulating Hormone Lab Routine 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 Expected: 02/28/2024 (Approximate), Expires: 02/27/2025 [facility] Work Phone: Comment on above: Expected: 02/28/2024 (Approximate), Expi res: 02/27/2025 Start: 02-28-2024 End: 02-27-2025 Thyroxine (T4) free [Mass/volume] in Serum or Plasma Thyroxine, Free Lab Routine 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 Start: 10-19-2023 [facility] Start: 10-03-2023 [facility] Start: 09-25-2023 End: 11-23-2024 DBT Breast - bilateral BI mammo bilateral screening tomosynthesis Imaging Routine Encounter for screening mammogram for breast cancer Expected: 09/25/2023, Expires: 11/23/2024 [facility] Work Phone: Comment on above: Expected: 09/25/2023, Expires: Start: 09-25-2023 End: 09-25-2024 Hemoglobin A1c/Hemoglobin.total in Blood [facility] Service Area Work Phone: Comment on above: Expected: 09/25/2023 (Approximate), Expi res: 09/25/2024 Start: 2023 Screening for malignant neoplasm of breast [facility] Start: 04-28-2023 Covid-19 Vaccine () Covid-19 Vaccine () [facility] Start: 04-28-2023 Influenza vaccination [facility] Start: 02-09-2023 End: 02-10-2024 Cyclic citrullinated peptide IgG Ab [Units/volume] in Serum or Plasma [facility] Work Phone: Comment on above: Expected: 02/09/2023 (Approximate), Expi res: 02/10/2024 Start: 02-09-2023 End: 02-10-2024 DNA double strand Ab [Units/volume] in Serum [facility] Service [facility] Work Phone: Comment on above: Expected: 02/09/2023 (Approximate), Expi res: 02/10/2024 Start: 02-09-2023 End: 02-10-2024 Opiate/Opioid/Benzo Extended Prescription Compliance [facility] Work Phone: Comment on above: Expected: 02/09/2023 (Approximate), Expi res: 02/10/2024 Start: 02-09-2023 End: 02-10-2024 Rheumatoid factor [Units/volume] in Serum by Nephelometry [facility] Work Phone: Comment on above: Expected: 02/09/2023 (Approximate), Expi res: 02/10/2024 Start: 02-09-2023 End: 02-10-2024 Triiodothyronine (T3) Free [Mass/volume] in Serum or Plasma [facility] Work Phone: Comment on above: Expected: 02/09/2023 (Approximate), Expi res: 02/10/2024 Start: 01-05-2023 [facility] Start: 10-25-2022 ELISA, Provider: Vargas Mujica, Status: Pen, Time: 8:00 AM ELISA, Provider: Vargas Mujica, Status: Ryan, Time: 8:00 AM [facility] Work Phone: Start: 10-11-2022 End: 12-11-2022 Parathyrin.intact [Mass/volume] in Serum or Plasma PTH INTACT BLD Lab Routine Increased PTH level Expected: 10/11/2022, Expires: 12/11/2022 [facility] Work Phone: Comment on above: Expected: 10/11/2022, Expires: 3 Start: 10-10-2022 End: 12-10-2022 25-hydroxyvitamin D3 [Mass/volume] in Serum or Plasma [facility] Work Phone: Comment on above: Expected: 10/10/2022, Expires: 3 Start: 10-10-2022 End: 12-10-2022 Basic metabolic 2000 panel - Serum or Plasma [facility] Work Phone: Comment on above: Expected: 10/10/2022, Expires: 3 Start: 10-10-2022 End: 12-10-2022 Cobalamin (Vitamin B12) [Mass/volume] in Serum or Plasma [facility] Work Phone: Comment on above: Expected: 10/10/2022, Expires: 3 Start: 10-10-2022 End: 12-10-2022 Ferritin [Mass/volume] in Serum or Plasma [facility] Work Phone: Comment on above: Expected: 10/10/2022, Expires: 3 Start: 10-10-2022 End: 12-10-2022 Folate [Mass/volume] in Serum or Plasma [facility] Work Phone: Comment on above: Expected: 10/10/2022, Expires: 3 Start: 10-10-2022 End: 12-10-2022 Iron and Iron binding capacity panel - Serum or Plasma [facility] Work Phone: Comment on above: Expected: 10/10/2022, Expires: 3 Start: 10-10-2022 End: 12-10-2022 Parathyrin.intact [Mass/volume] in Serum or Plasma [facility] Work Phone: Comment on above: Expected: 10/10/2022, Expires: 3 Start: 10-10-2022 End: 12-10-2022 VITAMIN B1 (THIAMINE), WHOLE BLOOD [facility] Work Phone: Comment on above: Expected: 10/10/2022, Expires: 3 Start: 09-27-2022 VIRDEE, Provider: Josselyn Roblero, Status: Pen, Time: 9:30 AM ELISA, Provider: Josselyn Roblero, Status: Pen, Time: 9:30 AM [facility] Work Phone: Start: 08-17-2022 Troponin I measurement [facility] Work Phone: Start: 08-17-2022 [facility] Start: 07-27-2022 FUV, Provider: Vargas Mujica, Status: Pen, Time: 8:20 AM FUV, Provider: Vargas Mujica, Status: Pen, Time: 8:20 AM [facility] Work Phone: Start: 07-12-2022 End: 09-11-2022 25-hydroxyvitamin D3 [Mass/volume] in Serum or Plasma VITAMIN D 25 HYDROXY Lab Routine S/P laparoscopic sleeve gastrectomy Expected: 07/12/2022, Expires: 09/11/2022 [facility] Work Phone: Comment on above: Expected: 07/12/2022, Expires: 3 Start: 07-12-2022 End: 09-11-2022 Basic metabolic 2000 panel - Serum or Plasma BASIC METABOLIC PNL Lab Routine S/P laparoscopic sleeve gastrectomy Expected: 07/12/2022, Expires: 09/11/2022 [facility] Work Phone: Comment on above: Expected: 07/12/2022, Expires: 3 Start: 07-12-2022 End: 09-11-2022 CBC panel - Blood by Automated count CBC Lab Routine S/P laparoscopic sleeve gastrectomy Expected: 07/12/2022, Expires: 09/11/2022 [facility] Work Phone: Comment on above: Expected: 07/12/2022, Expires: 3 Start: 07-12-2022 End: 09-11-2022 Cobalamin (Vitamin B12) [Mass/volume] in Serum or Plasma VITAMIN B12 BLOOD Lab Routine S/P laparoscopic sleeve gastrectomy Expected: 07/12/2022, Expires: 09/11/2022 [facility] Work Phone: Comment on above: Expected: 07/12/2022, Expires: 3 Start: 07-12-2022 End: 09-11-2022 Ferritin [Mass/volume] in Serum or Plasma FERRITIN BLD Lab Routine S/P laparoscopic sleeve gastrectomy Expected: 07/12/2022, Expires: 09/11/2022 [facility] Work Phone: Comment on above: Expected: 07/12/2022, Expires: 3 Start: 07-12-2022 End: 09-11-2022 Folate [Mass/volume] in Serum or Plasma FOLATE SERUM Lab Routine S/P laparoscopic sleeve gastrectomy Expected: 07/12/2022, Expires: 09/11/2022 [facility] Work Phone: Comment on above: Expected: 07/12/2022, Expires: 3 Start: 07-12-2022 End: 09-11-2022 Iron and Iron binding capacity panel - Serum or Plasma IRON + TIBC Lab Routine S/P laparoscopic sleeve gastrectomy Expected: 07/12/2022, Expires: 09/11/2022 [facility] Work Phone: Comment on above: Expected: 07/12/2022, Expires: 3 Start: 07-12-2022 End: 09-11-2022 Parathyrin.intact [Mass/volume] in Serum or Plasma PTH INTACT BLD Lab Routine S/P laparoscopic sleeve gastrectomy Expected: 07/12/2022, Expires: 09/11/2022 [facility] Work Phone: Comment on above: Expected: 07/12/2022, Expires: 3 Start: 07-12-2022 End: 09-11-2022 VITAMIN B1 (THIAMINE), WHOLE BLOOD VITAMIN B1 (THIAMINE), WHOLE BLOOD Lab Routine S/P laparoscopic sleeve gastrectomy Expected: 07/12/2022, Expires: 09/11/2022 [facility] Work Phone: Comment on above: Expected: 07/12/2022, Expires: 3 Start: 2022 End: 09-03-2022 Hepatic function 2000 panel - Serum or Plasma HEPATIC FUNCTION PNL Lab Routine Hepatic fibrosis Expected: 2022, Expires: 09/03/2022 [facility] Work Phone: Comment on above: Expected: 2022, Expires: 3 Start: 04-28-2022 Influenza vaccination [facility] Start: 04-19-2022 End: 06-19-2022 25-hydroxyvitamin D3 [Mass/volume] in Serum or Plasma VITAMIN D 25 HYDROXY Lab Routine S/P laparoscopic sleeve gastrectomy Expected: 04/19/2022, Expires: 06/19/2022 [facility] Work Phone: Comment on above: Expected: 04/19/2022, Expires: 2 Start: 04-19-2022 End: 06-19-2022 Basic metabolic 2000 panel - Serum or Plasma BASIC METABOLIC PNL Lab Routine S/P laparoscopic sleeve gastrectomy Expected: 04/19/2022, Expires: 06/19/2022 [facility] Work Phone: Comment on above: Expected: 04/19/2022, Expires: 2 Start: 04-19-2022 End: 06-19-2022 CBC panel - Blood by Automated count CBC Lab Routine S/P laparoscopic sleeve gastrectomy Expected: 04/19/2022, Expires: 06/19/2022 [facility] Work Phone: Comment on above: Expected: 04/19/2022, Expires: 2 Start: 04-19-2022 End: 06-19-2022 Cobalamin (Vitamin B12) [Mass/volume] in Serum or Plasma VITAMIN B12 BLOOD Lab Routine S/P laparoscopic sleeve gastrectomy Expected: 04/19/2022, Expires: 06/19/2022 [facility] Work Phone: Comment on above: Expected: 04/19/2022, Expires: 2 Start: 04-19-2022 End: 06-19-2022 Ferritin [Mass/volume] in Serum or Plasma FERRITIN BLD Lab Routine S/P laparoscopic sleeve gastrectomy Expected: 04/19/2022, Expires: 06/19/2022 [facility] Work Phone: Comment on above: Expected: 04/19/2022, Expires: 2 Start: 04-19-2022 End: 06-19-2022 Folate [Mass/volume] in Serum or Plasma FOLATE SERUM Lab Routine S/P laparoscopic sleeve gastrectomy Expected: 04/19/2022, Expires: 06/19/2022 [facility] Work Phone: Comment on above: Expected: 04/19/2022, Expires: 2 Start: 04-19-2022 End: 06-19-2022 Iron and Iron binding capacity panel - Serum or Plasma IRON + TIBC Lab Routine S/P laparoscopic sleeve gastrectomy Expected: 04/19/2022, Expires: 06/19/2022 [facility] Work Phone: Comment on above: Expected: 04/19/2022, Expires: 2 Start: 04-19-2022 End: 06-19-2022 Parathyrin.intact [Mass/volume] in Serum or Plasma PTH INTACT BLD Lab Routine S/P laparoscopic sleeve gastrectomy Expected: 04/19/2022, Expires: 06/19/2022 [facility] Work Phone: Comment on above: Expected: 04/19/2022, Expires: 2 Start: 04-19-2022 End: 06-19-2022 VITAMIN B1 (THIAMINE), WHOLE BLOOD VITAMIN B1 (THIAMINE), WHOLE BLOOD Lab Routine S/P laparoscopic sleeve gastrectomy Expected: 04/19/2022, Expires: 06/19/2022 [facility] Work Phone: Comment on above: Expected: 04/19/2022, Expires: 2 Start: 04-05-2022 End: 06-05-2022 CBC panel - Blood by Automated count CBC Lab Routine Thrombocytopenia (HCC) Expected: 04/05/2022, Expires: 06/05/2022 [facility] Work Phone: Comment on above: Expected: 04/05/2022, Expires: 2 Start: 03-30-2022 FUV, Provider: Vargas Mujica, Status: Pen, Time: 8:40 AM FUV, Provider: Vargas Mujica, Status: Pen, Time: 8:40 AM [facility] Work Phone: Start: 03-01-2022 End: 03-01-2023 SARS-CoV-2 (COVID-19) RNA [Presence] in Respiratory specimen by ALISON with probe detection PRE-PROCEDURE & PRE-OPERATIVE COVID Microbiology Routine Morbid obesity (HCC) Expected: 03/01/2022, Expires: 03/01/2023 [facility] Work Phone: Comment on above: Expected: 03/01/2022, Expires: 3 Start: 02-08-2022 End: 04-10-2022 Hepatic function 2000 panel - Serum or Plasma HEPATIC FUNCTION PNL Lab Routine TORRES (nonalcoholic steatohepatitis) Increased liver enzymes Expected: 02/08/2022, Expires: 04/10/2022 [facility] Work Phone: Comment on above: Expected: 02/08/2022, Expires: 2 Start: 02-01-2022 FUV, Provider: Vargas Mujica, Status: Pen, Time: 9:20 AM FUV, Provider: Vargas Mujica, Status: Pen, Time: 9:20 AM [facility] Work Phone: Start: 01-13-2022 End: 01-13-[address] [facility] Work Phone: Comment on above: Expected: 01/13/2022, Expires: 3 Start: 01-13-2022 End: 03-15-2022 LIVER FIBROSIS AND ACTIVITY [facility] Work Phone: Comment on above: Expected: 01/13/2022, Expires: 2 Start: 01-03-2022 End: 03-05-2022 ALPHA 1 ANTITRYP PHEN/GENOTYPE ALPHA 1 ANTITRYP PHEN/GENOTYPE Lab Routine Dyspnea and respiratory abnormalities Expected: 01/03/2022, Expires: 03/05/2022 [facility] Work Phone: Comment on above: Expected: 01/03/2022, Expires: 2 Start: 01-03-2022 End: 03-05-2022 ALPHA 1 ANTITRYPSIN PHENOTYPE ALPHA 1 ANTITRYPSIN PHENOTYPE Lab Routine Dyspnea and respiratory abnormalities Expected: 01/03/2022, Expires: 03/05/2022 [facility] Work Phone: Comment on above: Expected: 01/03/2022, Expires: 2 Start: 11-19-2021 End: 01-19-2022 CBC panel - Blood by Automated count CBC Lab Routine Class 3 severe obesity due to excess calories with serious comorbidity and body mass index (BMI) of 60.0 to 69.9 in adult (HCC) Expected: 11/19/2021, Expires: 01/19/2022 [facility] Work Phone: Comment on above: Expected: 11/19/2021, Expires: 2 Start: 11-19-2021 End: 01-19-2022 Comprehensive metabolic 2000 panel - Serum or Plasma COMP METABOLIC PANEL Lab Routine Class 3 severe obesity due to excess calories with serious comorbidity and body mass index (BMI) of 60.0 to 69.9 in adult (HCC) Expected: 11/19/2021, Expires: 01/19/2022 [facility] Work Phone: Comment on above: Expected: 11/19/2021, Expires: 2 Start: 11-19-2021 End: 01-19-2022 FERRITIN BLD FERRITIN BLD Lab Routine Class 3 severe obesity due to excess calories with serious comorbidity and body mass index (BMI) of 60.0 to 69.9 in adult ([facility]) Expected: 11/19/2021, Expires: 01/19/2022 [facility] Work Phone: Comment on above: Expected: 11/19/2021, Expires: 2 Start: 11-19-2021 End: 01-19-2022 Folate [Mass/volume] in Serum or Plasma FOLATE SERUM Lab Routine Class 3 severe obesity due to excess calories with serious comorbidity and body mass index (BMI) of 60.0 to 69.9 in adult ([facility]) Expected: 11/19/2021, Expires: 01/19/2022 [facility] Work Phone: Comment on above: Expected: 11/19/2021, Expires: 2 Start: 11-19-2021 End: 01-19-2022 IRON + TIBC IRON + TIBC Lab Routine Class 3 severe obesity due to excess calories with serious comorbidity and body mass index (BMI) of 60.0 to 69.9 in adult ([facility]) Expected: 11/19/2021, Expires: 01/19/2022 [facility] Work Phone: Comment on above: Expected: 11/19/2021, Expires: 2 Start: 11-19-2021 End: 01-19-2022 PTH INTACT BLD PTH INTACT BLD Lab Routine Class 3 severe obesity due to excess calories with serious comorbidity and body mass index (BMI) of 60.0 to 69.9 in adult ([facility]) Expected: 11/19/2021, Expires: 01/19/2022 [facility] Work Phone: Comment on above: Expected: 11/19/2021, Expires: 2 Start: 11-19-2021 End: 01-19-2022 VITAMIN B1 (THIAMINE), WHOLE BLOOD VITAMIN B1 (THIAMINE), WHOLE BLOOD Lab Routine Class 3 severe obesity due to excess calories with serious comorbidity and body mass index (BMI) of 60.0 to 69.9 in adult (HCC) Expected: 11/19/2021, Expires: 01/19/2022 [facility] Work Phone: Comment on above: Expected: 11/19/2021, Expires: 2 Start: 11-19-2021 End: 01-19-2022 VITAMIN B12 BLOOD VITAMIN B12 BLOOD Lab Routine Class 3 severe obesity due to excess calories with serious comorbidity and body mass index (BMI) of 60.0 to 69.9 in adult (HCC) Expected: 11/19/2021, Expires: 01/19/2022 [facility] Work Phone: Comment on above: Expected: 11/19/2021, Expires: 2 Start: 11-19-2021 End: 01-19-2022 VITAMIN D 25 HYDROXY VITAMIN D 25 HYDROXY Lab Routine Class 3 severe obesity due to excess calories with serious comorbidity and body mass index (BMI) of 60.0 to 69.9 in adult (HCC) Expected: 11/19/2021, Expires: 01/19/2022 [facility] Work Phone: Comment on above: Expected: 11/19/2021, Expires: 2 Start: 10-28-2021 FUV, Provider: Josselyn Rolbero, Status: Pen, Time: 8:30 AM FUV, Provider: Josselyn Roblero, Status: Pen, Time: 8:30 AM [facility] Work Phone: Start: 05-25-2021 FUV, Provider: Vargas Mujica, Status: Pen, Time: 3:40 PM FUV, Provider: Vargas Mujica, Status: Ryan, Time: 3:40 PM [facility] Work Phone: Start: 04-28-2021 Influenza vaccination INFLUENZA (#1) [facility] Start: 02-16-2020 ANNUAL PCP TEAM CHRONIC DISEASE VISIT ANNUAL PCP TEAM CHRONIC DISEASE VISIT [facility] Start: 10-23-2017 Hepatitis A Vaccines (2 of 3 - Hep A Twinrix risk 3-dose series) Hepatitis A Vaccines (2 of 3 - Hep A Twinrix risk 3-dose series) [facility] Start: 10-23-2017 HEPATITIS B (2 of 3 - Hep B Twinrix 3-dose series) HEPATITIS B (2 of 3 - Hep B Twinrix 3-dose series) [facility] Start: 10-23-2017 Hepatitis B Vaccine (2 of 3 - Hep B Twinrix 3-dose series) Hepatitis B Vaccine (2 of 3 - Hep B Twinrix 3-dose series) [facility] Start: 10-23-2017 Hepatitis B Vaccines (2 of 3 - Hep B Twinrix 3-dose series) Hepatitis B Vaccines (2 of 3 - Hep B Twinrix 3-dose series) [facility] Start: 2010 HPV Vaccines (1 - 3-dose standard series) HPV Vaccines (1 - 3-dose standard series) [facility] Start: 2005 DTaP/Tdap/Td Vaccines (1 - Tdap) DTaP/Tdap/Td Vaccines (1 - Tdap) [facility] Start: 2004 Screening for malignant neoplasm of cervix [facility] Start: 2002 Urine microalbumin profile [facility] Start: 2001 Annual PCP Team Chronic Disease Visit Annual PCP Team Chronic Disease Visit [facility] Start: 2001 Anxiety Screening Anxiety Screening [facility] Start: 2001 HIV SCREENING HIV SCREENING [facility] Start: 2001 HIV screening HIV Screening [facility] Start: 1996 Varicella vaccination Varicella Vaccines (1 of 2 - 13+ 2-dose series) [facility] Start: 1988 COVID-19 VACCINE (#1) COVID-19 VACCINE (#1) [facility] Start: 1988 COVID-19 VACCINE (1) COVID-19 VACCINE (1) [facility] Start: 1984 MMR Vaccines (1 of 1 - Standard series) MMR Vaccines (1 of 1 - Standard series) [facility] Start: 1984 Varicella vaccination Varicella Vaccines (1 of 2 - 2-dose childhood series) [facility] Start: 01-02-1984 COVID-19 VACCINE (#1) COVID-19 VACCINE (#1) [facility] Start: 1983 HIV screening HIV Screening [facility] Start: 1983 Lipid panel Lipid Panel [facility] Start: 1983 Yearly Adult Physical Yearly Adult Physical [facility] Confirmation Opiate/Opioid/Benzo Prescription Compliance Confirmation Opiate/Opioid/Benzo Prescription Compliance Lab Routine Anxiety Medication management 02/28/2024 2:51 PM EDT [facility] Work Phone: End: 05-19-2023 Ct abdomen & pelvis w/contrast material CT ABD/PEL W IVCON Radiology STAT S/P laparoscopic sleeve gastrectomy Right sided abdominal pain 1 Occurrences starting 04/19/2022 until 05/19/2023 [facility] Work Phone: Comment on above: 1 Occurrences starting 04/19/2022 until 05/19/2023 End: 02-27-2026 CT Heart and Coronary arteries for calcium scoring WO contrast CT CALCIUM SCORING SELF PAY Radiology Routine Sinus bradycardia Encounter for screening for cardiovascular disorders 1 Occurrences starting 01/28/2025 until 02/27/2026 [facility] Comment on above: 1 Occurrences starting 01/28/2025 until 02/27/2026 End: 02-02-2023 Ct thorax w/o contrast material CT CHEST WO IVCON Radiology Routine Shortness of breath 1 Occurrences starting 01/03/2022 until 02/02/2023 [facility] Work Phone: Comment on above: 1 Occurrences starting 01/03/2022 until 02/02/2023 End: 02-02-2023 LUNG DIFFUSION CAPACITY (DLCO) LUNG DIFFUSION CAPACITY (DLCO) PFT Routine Dyspnea and respiratory abnormalities 1 Occurrences starting 01/03/2022 until 02/02/2023 [facility] Work Phone: Comment on above: 1 Occurrences starting 01/03/2022 until 02/02/2023 LUNG DIFFUSION CAPACITY (DLCO) L BAILEE DIFFUSION CAPACITY (DLCO) PFT Routine Dyspnea and respiratory abnormalities 02/02/2022 6:[address] [facility] Work Phone: End: 02-02-2023 LUNG VOLUMES LUNG VOLUMES PFT Routine Dyspnea and respiratory abnormalities 1 Occurrences starting 01/03/2022 until 02/02/2023 [facility] Work Phone: Comment on above: 1 Occurrences starting 01/03/2022 until 02/02/2023 LUNG VOLUMES LUNG VOLUMES PFT Routine Dyspnea and respiratory abnormalities 02/02/2022 6:[address] [facility] Work Phone: OOB Internal Tracking OOB Machine Hamper Maker al Tracking Lab Routine Anxiety Medication management 02/28/2024 2:51 PM EDT [facility] Work Phone: OPIATE/OPIOID/BENZO PRESCRIPTION COMPLIANCE OPIATE/OPIOID/BENZO PRESCRIPTION COMPLIANCE Lab Routine Anxiety Medication management 02/09/2023 4:22 PM EDT [facility] Work Phone: Opiate/Opioid/Benzo Prescription Compliance Opiate/Opioid/Benzo Prescription Compliance Lab Routine Anxiety Medication management 02/28/2024 2:51 PM EDT [facility] Work Phone: OUTSIDE VENDOR CARDI AC OUTPATIENT EXTENDED RHYTHM RECORDING (WITHOUT TELEMETRY) OUTSIDE VENDOR CARDIAC OUTPATIENT EXTENDED RHYTHM RECORDING (WITHOUT TELEMETRY) Holter Routine Dizzy Ordered: 01/09/2023 [facility] Work Phone: Comment on above: Ordered: 01/09/2023 OUTSIDE VENDOR CARDI AC OUTPATIENT EXTENDED RHYTHM RECORDING (WITHOUT TELEMETRY) OUTSIDE VENDOR CARDIAC OUTPATIENT EXTENDED RHYTHM RECORDING (WITHOUT TELEMETRY) Holter Routine Sinus bradycardia Encounter for screening for cardiovascular disorders Ordered: 01/28/2025 [facility] Work Phone: Comment on above: Ordered: 01/28/[address] [facility] Work Phone: Patient referral [facility] Work Phone: Screen Opiate/Opioid /Benzo Prescription Compliance Screen Opiate/Opioid/Benzo Prescription Compliance Lab Routine Anxiety Medication management 02/28/2024 2:52 PM EDT [facility] Work Phone: End: 02-02-2023 SPIROMETRY - BASELINE AND POST DILATOR SPIROMETRY - BASELINE AND POST DILATOR PFT Routine Dyspnea and respiratory abnormalities 1 Occurrences starting 01/03/2022 until 02/02/2023 [facility] Work Phone: Comment on above: 1 Occurrences starting 01/03/2022 until 02/02/2023 SPIROMETRY - BASELIN E AND POST DILATOR SPIROMETRY - BASELINE AND POST DILATOR PFT Routine Dyspnea and respiratory abnormalities 02/02/2022 6:[address] [facility] Work Phone: Troponin I measurement [facility] Work Phone: End: 02-12-2023 Us abdominal real time w/image documentation US ABDOMEN COMPLETE Radiology Routine Fatty liver Increased liver enzymes 1 Occurrences starting 01/13/2022 until 02/12/2023 [facility] Work Phone: Comment on above: 1 Occurrences starting 01/13/2022 until 02/12/2023 Us abdominal real ti me w/image documentation US ABDOMEN COMPLETE Radiology Routine Fatty liver Increased liver enzymes 02/02/2022 7:[address] [facility] Work Phone: [facility] Immunizations Immunization Date Immunization Notes Care Provider [facility] 09-18-2018 influenza, injectabl e, quadrivalent, preservative free [facility] 09-18-2018 influenza, seasonal, injectable Marjan Eddy APRN.CNP Work Phone: [facility] Work Phone: 09-18-2018 influenza, seasonal, injectable, preservative free Vargas Mujica Work Phone: [facility] 09-18-2018 influenza virus vaccine, unspecified formulation Vargas Mujica PA-C Work Phone: [facility] Work Phone: 09-25-2017 hepatitis A and hepatitis B vaccine Vargas Mujica Work Phone: [facility] 09-25-2017 hepatitis B vaccine, unspecified formulation Marjan Eddy CNA G[employer] TM1 DEVELOPER Work Phone: [facility] 06-13-2017 influenza, injectabl e, quadrivalent, preservative free [facility] 06-13-2017 influenza, seasonal, injectable Marjan Rorovsky CNA [employer]1 DEVELOPER Work Phone: [facility] Work Phone: 06-13-2017 influenza, seasonal, injectable, preservative free Marjan Gromovsky CNA [employer] TM1 DEVELOPER Work Phone: [facility] Payers Date Payer Category Payer Unknown [id number] 2024 Self-pay [id number] 2022 Managed Care (Private) 1.2.8 [id number] 2022 Unknown [address] [facility] [id number] 2021-Present [phone] [facility] [id number] [place] [address] Open Access [id number] 2021 Private Health Insurance [id number] 2019 Private Health Insurance [id number] 2017 Unknown [id number] 1983 Unknown [id number] 2.16.840.1.610841.3.579.2.2 78 1983 Unknown [id number] 2.16.840.1.758473.3.579.2.3 56 1983 Unknown [id number] 2.16.840.1.218062.3.579.2.3 56 1983 Unknown [id number] 2.16.840.1.825315.3.579.2.3 56 1983 Unknown [id number] 2.16.840.1.902158.3.579.2.3 56 1983 Unknown [id number] 2.16.840.1.614701.3.579.2.3 56 1983 Unknown [id number] 2.16840.1.607664.3.579.2.3 56 1983 Unknown [id number] 2.16840.1.318222.3.579.2.3 56 1983 Unknown [id number] 2.16840.1.007266.3.579.2.1 069 1983 Unknown [id number] 2.16840.1.125359.3.579.2.1 243 1983 Unknown [id number] 2.16840.1.411765.3.579.2.1 243 1983 Unknown [id number] 2.16840.1.258389.3.579.2.1 245 1983 Unknown [id number] 2.16840.1.713701.3.579.2.1 245 1983 Unknown [id number] 2.16840.1.395720.3.579.2.1 244 1983 Unknown [id number] 2.16840.1.510353.3.579.2.1 244 1983 Unknown [id number] 2.16840.1.179241.3.579.2.1 244 Private Health Insurance [facility] [id number] Unknown [id number] 2.16.840.1.292199.3.579.2.4 62 Unknown [id number] 2.16.840.1.656925.3.579.2.4 62 Unknown [id number] 2.16.840.1.035504.3.579.2.4 62 Unknown [id number] 2.16.840.1.992677.3.579.2.4 62 Unknown [id number] 2.16.840.1.082996.3.579.2.4 62 Unknown [id number] 2.16.840.1.914218.3.579.2.4 62 Unknown [id number] 2.16.840.1.069436.3.579.2.4 62 Unknown [id number] 2.16.840.1.285191.3.579.2.4 62 Unknown [id number] 2.16.840.1.274800.3.579.2.4 62 Unknown [id number] 2.16.840.1.315506.3.579.2.4 62 Unknown [id number] 2.16.840.1.892356.3.579.2.4 62 Unknown [id number] 2.16.840.1.759363.3.579.2.4 62 Unknown [id number] 2.16.840.1.687740.3.579.2.4 62 Unknown [id number] 2.16.840.1.309796.3.579.2.4 62 Unknown [id number] 2.16.840.1.664953.3.579.2.4 62 Unknown [id number] 2.16.840.1.233267.3.579.2.4 62 Unknown [id number] 2.16.840.1.955778.3.579.2.4 62 Unknown [id number] 2.16.840.1.137574.3.579.2.4 62 Social History Date Type Detail Facility Start: 06-26-2019 End: 06-10-2025 Former smoker Former smoker [facility] Work Phone: Start: 06-26-2019 End: 02-08-2023 Tobacco smoking status NHIS Ex-smoker [facility] Start: 08-28-2009 End: 08-28-2019 History of tobacco use Current smoker [facility] Start: 08-28-2009 End: 08-28-2019 History of tobacco use Cigarette Smoker [facility] Start: 06-26-2019 End: 02-08-2023 Tobacco use and exposure Smokeless tobacco non-user [facility] Start: 11-19-2021 End: 06-10-2025 Alcohol intake Ex-drinker (finding) [facility] Start: 03-15-2019 End: 04-06-2022 Tobacco Comment total quit 2017. currently 5 cigarettes/month [facility] Start: 1985 Sex Assigned At Female C [facility] Start: 11-19-2020 End: 11-06-2024 Exposure to SARS-CoV-2 (event) Not sure [facility] Start: 03-25-2022 End: 04-11-2022 Exposure to SARS-CoV-2 (event) Yes [facility] Start: 08-17-2022 End: 10-19-2023 Tobacco smoking status TXIS Unknown if ever smoked [facility] Start: 06-07-[address] [facility] Start: 06-07-[address] [facility] Start: 06-23-[address] [facility] Start: 02-09-2023 Alcohol intake Current drinke r of alcohol (finding) [facility] Work Phone: Start: 02-09-2023 End: 06-10-2025 Tobacco use panel [facility] Work Phone: Start: 02-08-2023 Alcohol Comment OCCASIONALLY [facility] Work Phone: Start: 1985 Sex Assigned At Not on file U [facility] Work Phone: Tobacco smoking status No Smoking Status Entered [facility] Start: 07-23-2022 PHQ2 Score 0 [facility] Work Phone: Start: 06-07-2021 Gender identity Identifies as female gender (finding) [facility] Start: 06-07-2021 Sexual orientation Heterosexual (huan light) [facility] NEGATED: Highlighted row - - [facility] Work Phone: NEGATED: Highlighted row [facility] Goals Date Patient Goal Desired Activity /State Personal health goal Personal health goal Personal health goal Personal health goal Functional Status Date Assessment Result Facility 06-10-2025 Patient Health Questionnaire 2 item (PHQ-2) [Reported] [facility] Work Phone: 06-10-2025 Functional status [facility] Work Phone: 06-10-2025 [facility] Work Phone: 05-15-2023 Functional Status Independent [facility] 05-15-2023 Functional Status ID band on, Allergy Band on, Call device within reach, Bed in low position, Wheels locked, Upper/Half-Length side-rails up, Visitor at bedside [facility] 09-26-2018 Are you deaf, or do you have serious difficulty hearing No 09/26/2018 2:05 PM Mabel Bates) (Hist), RN No [facility] 09-26-2018 Are you blind, or do you have serious difficulty seeing, even when wearing glasses No 09/26/2018 2:05 PM Mabel BatesRn) (Hist), RN No [facility] 09-26-2018 Do you have serious difficulty walking or climbing stairs No 09/26/2018 2:05 PM Mabel BatesRn) (Hist), RN No [facility] 09-26-2018 Do you have difficul ty dressing or bathing No 09/26/2018 2:05 PM Mabel BatesRn) (Hist), RN No [facility] 09-26-2018 Because of a physica l, mental, or emotional condition, do you have difficulty doing errands alone such as visiting a physician's office or shopping No 09/26/2018 2:05 PM Mabel BatesRn) (Hist), RN No [facility] NEGATED: Highlighted row Functional performance Functional status health issues are not documented Disease [facility] Work Phone: Mental Status Date Assessment Result Facility 10-19-2023 Cognitive function Level Of Cons ciousness Awake;Alert;Appropriate ;Follows Commands [facility] Work Phone: 10-03-2023 Cognitive function Level Of Cons ciousness Awake;Alert;Appropriate ;Follows Commands [facility] Work Phone: 05-15-2023 Mental Status Orientation Orie nted x 4 [facility] 05-15-2023 Mental Status [facility] 01-05-2023 Cognitive function Awake;Alert;Appropriat e [facility] Work Phone: 11-15-2022 Cognitive function Voice/Name [facility] Work Phone: 08-17-2022 Cognitive function Voice/Name [facility] Work Phone: 09-26-2018 Because of a physical, mental, or emotional condition, do you have serious difficulty concentrating, remembering, or making decisions No 09/26/2018 2:05 PM Mabel BatesRn) (Hist), RN No [facility] NEGATED: Highlighted row Cognitive function [Interpretation] Cognitive status health issues are not documented Disease [facility] Work Phone: [...] (BMI) of 50.0 to 59.9 in adult ([facility]) E66.813, Z68.43 Palpitations R00.2 Generalized anxiety disorder F41.1 H/O cardiac radiofrequency ablation Z98.890 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 documented in this encounter [facility] Work Phone: 06-03-2025 Note HNO ID: [id number] Author: DEE DEE LOUISE APRN.COGNOS TM1 DEVELOPER Service: ? Author Type: Nurse Practitioner Type: Progress Notes Filed: 06/03/2025 09:58 Note Text: patient declined stave bolt equalizer Emma is a 39 year old who [...] of abnormal pap: No Last mammogram: 2024 [facility] normal Abnormal mammogram: 024 - normal after [...] Living1 SAB0 IAB0 Ectopic0 Multiple0 Live Births1 Geographic Information Scientist History LMP: 07/11/2016, Ablation Age at Menarche: Age at First : Age at Menopause: Geographic Information Scientist History Comments: Sexual Activity: Yes; Male; ablation Contraception: Other, Tubal Ligation PAST MEDICAL HISTORY Diagnosis Date Uxfds-7-eyfuuvkycrb deficiency (HCC) Cardiac dysrhythmia, unspecified 2007 Depressive [...] coils in fallopian tubes S BALLOON,UTERINE ABLATION [id number] 2009 [facility] CARDIAC RADIOFREQUENCY ABLATION 2018 ventricular [...] discussed with the Patient or Patient's Authorized Room Cleaner. As applicable, any other physician, advance practice provider, medical student, or other health professional student that will be observing or involved in the sensitive examination for educational or training purposes was discussed with the Patient or Authorized Room Cleaner. The Patient or Authorized Room Cleaner has agreed to proceed with the s (more content not included)... [facility] 02-10-2025 Telephone encounter Note Emma Cowart returned call. Relayed holter results and she voiced understanding. Lexis Owen RN [facility] 02-10-2025 Miscellaneous Notes Emma Cowart returned call. Relayed holter results and she voiced understanding. Lexis Owen RN LVM and sent my chart message with results. Lexis Owen RN ----- Message from Johanny Marmolejo APRN.COGNOS TM1 DEVELOPER sent at 02/10/2025 2:41 PM EDT [...] was Sinus Rhythm. documented in this encounter [facility] 02-10-2025 Telephone encounter Note LVM and sent my chart message with results. Lexis Owen RN [facility] 02-10-2025 Telephone encounter Note ----- Message [...] bpm. Predominant underlying rhythm was Sinus Rhythm. [facility] 02-10-2025 Progress note Formatting of t [...] bpm. Predominant underlying rhythm was Sinus Rhythm. [facility] Work Phone: 01-29-2025 Telephone encounter Note Order faxed. Confirmation received. Laurel Roberts RN [facility] 01-29-2025 Miscellaneous Notes Order faxed. Confirmation received. Laurel Roberts RN [facility] asking for an order for Calcium Scoring to be faxed to [phone]. Johanny Meredith LPN documented in this encounter [facility] 01-29-2025 Telephone encounter Note [facility] asking for an order for Calcium Scoring to be faxed to [phone]. Johanny Meredith LPN [facility] 01-28-2025 Instructions Johanny Marmolejo APRN.[facility] - 01/28/2025 2:54 PM EDT Heart Disease in Women Is heart disease a problem for women? Heart disease is the leading cause of of [place] women. More women from heart disease than [...] disease. You can get more information from: [place] [facility] Fbwoxdpptxs7-508-DQE-USA-1 ( )www.heart.org Developed by [employer]. Published by [employer]. Copyright 2014 [employer] and/or one of its subsidiaries. All rights reserved. documented in this encounter [facility] 01-28-2025 History of Present illness Narrative Chief Complaint Patient presents with: Cardiology Follow Up - Generic: sooner f/u than [place] - bradycardia History of Present Illness: Emma Cowart is a very pleasant 39 year old female who presents for symptom concerns. 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 She is known [...] is currently working with a dietitian through [employer] to improve her health and manage her [...] up Dr. Garay's first available appointment in [place] on 09/15/2025. PAST MEDICAL HISTORY Diagnosis Date Izhif-8-hzsuabeajyh deficiency (HCC) Cardiac dysrhythmia, unspecified 2007 Depressive [...] coils in fallopian tubes S BALLOON,UTERINE ABLATION [id number] 2009 SHX CARDIAC RADIOFREQUENCY ABLATION 2018 ventricular [...] coronary artery disease; patient to schedule at [facility]. - Consider follow-up with functional medicine or [...] 2025, 12:51 PM documented in this encounter [facility] 01-28-2025 Note HNO ID: [id number] Author: JOHANNY MARMOLEJO APRN.CNP Service: ? 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 She is known to Dr. Garay, last seen in our [place] office location 01/09/2023. The patient is a [...] is currently working with a dietitian through [employer] to improve her health and manage her [...] up Dr. Garay's first available appointment in [place] on 09/15/2025. PAST MEDICAL HISTORY Diagnosis Date Xlsbg-5-wosbgdqawcn deficiency (HCC) Cardiac dysrhythmia, unspecified 2007 Depressive [...] coils in fallopian tubes S BALLOON,UTERINE ABLATION 47600 2009 SHX CARDIAC RADIOFREQUENCY ABLATION 2018 ventricular [...] Years since qu (more content not included)... [facility] 01-28-2025 Note HNO ID: [id number] Author: EDITH MURRAY MD Service: ? Author [...] Murray MD February 11, 2025 9:32 AM [facility] 01-13-2025 Telephone encounter Note Pt called back in. Pt scheduled 01/28/2025 with Caridad Junior [facility] 01-13-2025 Miscellaneous Notes Pt called back in. Pt scheduled 01/28/2025 with Caridad Junior Called pt and left voicemail stating we could get her in sooner if she is willing to come to [place]. Waiting to hear back from pt if [...] sooner if possible. documented in this encounter [facility] 01-13-2025 Telephone encounter Note Called pt and left voicemail stating we could get her in sooner if she is willing to come to [place]. Waiting to hear back from pt if she would like to reschedule. Sada Alvarez [facility] 01-09-2025 Telephone encounter Note Patient calling [...] requesting to be seen sooner if possible. [facility] 11-06-2024 History of Present illness Narrative Subjective Patient ID: Emma Cowart is a 39 y.o. female who presents for Follow-up (C/O LIVER PAIN AND DISCUSS SOMETHING FOR WEIGHT LOSS. C/O TENDONITIS ON/OFF LT FOOT IBUPROFEN IS NOT HELPING ) HPI Labs- [place] and also Aug/Sep 2023 in [place] Pain Polyarthralgia / stiffness Polyarthralgia and has [...] medication(s). 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 Patient Active Problem List Diagnosis AAT (snvhm-1-rbskimsmczr) deficiency (Multi) Abnormal EKG Bilateral hand numbness [...] Behavior: Behavior normal. Testing Reviewed labs from [place] LFT were Wnl Thyroid WNL Glucose - [...] FU in 6-7 mo with labs at [place] and med check documented in this encounter [facility] Work Phone: 07-11-2024 Reason for visit Narrative Specialty Diagnoses / Procedures Referred By Donna t Referred To Contact Radiology Diagnoses Cervicalgia Procedures XR cervical spine 2-3 views Vargas Mujica PA-C [address] [place] [address] Phone: tel: fax: Referral ID Status Reason Start Date Expiration Date Visits Requested Visits Authorized [id number] Authorized Perform Procedure 4 07/11/2025 1 1 [facility] Work Phone: [phone]) 724-574210-11-2024 History of Present illness Narrative* Agata Goldman, [...] PATIENT PRESENTS WITH AN IMPLANTABLE OR ATTACHED HANDLING TECH: No RADIOLOGY DEPARTMENT: General X-ray: Exam(s) Completed: Lower Extremity X- Ray(s): Foot, Left PERIPHERAL IV DATA: Not applicable SIGNED BY: RT Regine(R) June 07, 2024 4:21 PM documented in this encounterOhio[facility] History of Present illness Narrative* Kamilla Coon APRN.[employer]GNOS TM1 DEVELOPER - 06/07/2024 4:14 PM EDT Images [...] plan. Kamilla Coon APRN.SWATI documented in this encounterOhio[facility] History of Present illness Narrative* Jovita Moreno [...] PATIENT PRESENTS WITH AN IMPLANTABLE OR ATTACHED HANDLING TECH: No RADIOLOGY DEPARTMENT: General X-ray: Exam(s) Completed: Chest X-Ray PERIPHERAL IV DATA: Not applicable SIGNED BY: RT Tonny(R) April 24, 2024 4:06 PM documented in this encounterOhio[facility] History of Present illness Narrative* Ami Delgado [...] air exchange PAST MEDICAL HISTORY No date: Jmvsi-9-sentuqjuwjk deficiency ([facility]) 2007: Cardiac dysrhythmia, unspecified No date: Depressive disorder, not elsewhere classified No date: DVT (deep venous thrombosis) ([facility]) Comment: after PICC line No date: Esophageal reflux 04/09/2015: 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 No date: Irritable bowel syndrome No date: Morbid obesity ([facility]) Comment: stated BMI 47.3 No date: BRISEYDA (obstructive sleep apnea) No date: Other chronic nonalcoholic liver disease No date: Personal history of tobacco use, presenting hazards to health Comment: 1/2 ppd x 5 years; quit 08/18/14 - restarted and quit in 07/2021: Pneumonia due to COVID-19 virus No date: Pulmonary embolism ([facility]) Comment: after PICC line No date: V-tach ([facility]) PAST SURGICAL HISTORY 2002: DELIVERY ONLY Comment: , low cervical 01/08/2008: CHOLECYSTECTOMY 04/2021: EGD 02/2021: EGD 04/11/2022: LAPAROSCOPIC GASTRECTOMY 2012: LAPAROSCOPIC UTERINE NERVE ABLATION 2008: LIVER BIOPSY 09/21/2018: MIDLINE CATHETER Comment: 2010: PAST SURGICAL HISTORY OF Comment: spring coils in fallopian tubes 2010: S BALLOON,UTERINE ABLATION [id number] 2019: SHX CARDIAC RADIOFREQUENCY ABLATION Comment: ventricular [...] Unremarkable. IMPRESSION IMPRESSION: No acute radiographic abnormality. Director Of Ancillary Services: YUVAL Transcribe Date/Time: Apr 24 2024 4:15P Dictated by : AMI DAVENPORT MD Patient was given Tessalon Perles for her cough. At this time it is believed to be viral. Patient can treat with yplb-bgv-yijeiel medication for symptom management. Prescription instructions reviewed with patient as applicable. Potential red flag symptoms discussed with the patient. Reviewed appropriate action plan to take if red flag symptoms occur. Patient agreeable to treatment plan. Ami Delgado APRN.COGNOS TM1 DEVELOPER documented in this encounterOhio[facility] History of Present illness Narrative* Vargas [...] floor instability. We discussed follow up with [facility] [facility] for eval but consider pelvic floor therapy [...] medication(s). Patient Active Problem List Diagnosis AAT (hvkxl-1-xigikriqwjq) deficiency (Multi) Abnormal EKG Bilateral hand numbness [...] LEUKOCYTES (10*3/UL) IN BLOOD BY AUTOMATED COUNT, BRUNEIAN 4.4 - 11.3 x10*3/uL 8.2 nRBC 0.0 - 0.0 /100 WBCs 0.0 ERYTHROCYTES (10*6/UL) IN BLOOD BY AUTOMATED COUNT, BRUNEIAN 4.00 - 5.20 x10*6/uL 5.34 (H) HEMOGLOBIN 12.0 - 16.0 g/dL 15.1 HEMATOCRIT 36.0 - 46.0 % 47.2 (H) MCV 80 - 100 fL 88 MCH 26.0 - 34.0 pg 28.3 MCHC 32.0 - 36.0 g/dL 32.0 RED CELL DISTRIBUTION WIDTH 11.5 - 14.5 % 13.4 PLATELETS (10*3/UL) IN BLOOD AUTOMATED COUNT, BRUNEIAN 150 - 450 x10*3/uL 208 NEUTROPHILS/100 LEUKOCYTES IN BLOOD BY AUTOMATED COUNT, BRUNEIAN 40.0 - 80.0 % 63.4 Immature Granulocytes %, Automated 0.0 - 0.9 % 0.1 Lymphocytes % 13.0 - 44.0 % 28.2 Monocytes % 2.0 - 10.0 % 6.7 Eosinophils % 0.0 - 6.0 % 1.2 Basophils % 0.0 - 2.0 % 0.4 NEUTROPHILS (10*3/UL) IN BLOOD BY AUTOMATED COUNT, BRUNEIAN 1.20 - 7.70 x10*3/uL 5.22 Immature Granulocytes [...] with med check / [facility] Phone: 1(191) 712-793102-06-2024 Miscellaneous Notes* Telephone Encounter - Deneen Méndez [...] make future appointment with Dr Garay. Emma# [phone] Deneen Méndez LPN October 03, 2023 8:39 AM documented in this encounterOhio[facility]-29-[facility] History of Present illness Narrative* Vargas [...] floor instability. We discussed follow up with [facility] [facility] for eval but consider pelvic floor therapy [...] medication(s). Patient Active Problem List Diagnosis AAT (gsejk-9-wvdjllayneg) deficiency (CMS/HCC) Abnormal EKG Bilateral hand numbness [...] (post-traumatic stress disorder) Sacroiliitis (CMS/HCC) Ankylosing spondylitis ([facility]/HCC) H/O cardiac radiofrequency ablation Hypothyroidism due to [...] List Items Addressed This Visit ICD-10-CM AAT (krvbw-6-xgvvsorrfpg) deficiency ([facility]) E88.01 Vitamin D deficiency E55.9 Relevant Orders Vitamin D 25-Hydroxy,Total (for eval of Vitamin D levels) (Completed) Depression, major, single episode, moderate ([facility]) F32.1 Elevated ferritin level R79.89 Relevant Orders [...] index (BMI) of50.0 to 59.9 in adult ([facility]) E66.01, Z68.43 Generalized anxiety disorder F41.1 Other Visit Diagnoses Codes Major depressive disorder, single episode, moderate ([facility]) - Primary F32.1 Relevant Medications venlafaxine XR (Effexor-XR) 75 mg 24 hr capsule Anxiety F41.9 Relevant Medications LORazepam (Ativan) 1 mg tablet Encounter for screening mammogram for breast cancer Z12.31 Relevant Orders BI mammo bilateral screening tomosynthesis FU in 1-3 mo with labs and med check /mood check mammo [facility] Work Phone: 1(152) 549-525309-18-2023 Hospital Discharge instructions Patient Education 05/15/2023 18:40:46 [...] or water and you are getting dehydrated [phone] [employer]. [address] [place] [address], [place] [address]. All rights reserved. This information is not intended as a substitute for professional medical care. Always follow yourhealthcare professional's instructions. Follow Up Care 05/15/2023 16:27:17 With:CHANDA VASQUEZ Address: [address] [phone] Business (1) When:2-4 days With:VARGAS MUJICA Address: [address] [place] [phone] Business (1) When:2-4 days [facility] Janell Srinivasan 09-18-2023 Note Discharge Instructions Thank [...] Where: [address] [place] [phone] Business (1) Follow Up with VARGAS MUJICA When Within 2-4 days Where: [address] [place] [address]- [phone] Business (1) Allergies Wellbutrin morphine penicillin Medications [...] or water and you are getting dehydrated [phone] [employer] [facility]. [address] [place] [address], [place] [address]. All rights reserved. This information is not intended as a substitute for professional medical care. Always follow yourhealthcare professional's instructions. Additional Information VACCINATE! IT SAVES LIVES! Members of the community who have not yet received the COVID-19 vaccine and would like to receive it can visit one of [facility] vaccine clinics. There are many vaccine clinic locations within the [facility]. For locations and available times, please visit [email or web address] It is important to note that some COVID mobile vaccine clinics are held outdoors and may be canceled in rainy or stormy conditions. To learn more about pediatric vaccinations (ages 5-11), we invite you to visit the [facility] webpage. https://www.[employer].org/pages/4777-Dgitj-Bdphkxiibwb-Lsyqrxfdws-Ntqoj-Riv stions.htmlTo learn more about the COVID-19 vaccine, we invite you to visit the CDC website for a list of frequently asked questions. https://www.cdc.gov/coronavirus/2019-ncov/vaccines/faq.html [place] [employer] Patient Portal Access Instructions: Stay connected with your healthcare team and access your personal medical information anytime with the [employer] Patient Portal. If you would like a full copy of your medical records please contact the [facility] Medical Records Department Monday through Monday between 8a.m. and 4:30p.m. Please follow the directions below to access the portal: 1.Access the email account you provided upon registration to the hospital.2.Look for an invitation email from [facility].3.Open the email and access the invitation link: Accept Invitation to [facility].Fill in the required palma to create your account. Sign into www.[employer] with your username and password that you [...] you will allow to register on the [employer] Patient Portal for access to your information. You can also access the [employer] Patient Portal on the [employer] jimbo. Simply click on Health Records under [employer] and then click on the [employer] logo. HOW TO SAFELY DISPOSE OF PRESCRIPTION [...] Call your local pharmacy or go to [email or web address] Music [email or web address] to find one close to you.3.Make use of household items: Use cat litter or old coffee grounds to dispose medications if other options arenot available. Mix your drugs with these household products, seal them in an airtight container andthrow it into the garbage. Call [facility]: [phone] to be sure your drugs can be [...] am aware that I should contactmy doctor. Patient/Room Cleaner Signature: Date/Time: Relationship to Patient: Witness Name/Signature: Date/Time: [facility]09-18-2023 Note ORIGINAL EXAMINATION: CT OF THE [...] Sign Date: 05/15/2023 6:26:14 PM Ordering Provider: [facility]09-18-2023 Note Sinus rhythm Left ventricular hypertrophy Electronic Signature: KVNG DOMINGUEZ MD 05/15/2023 17:04:40[facility] 07-03-2023 Miscellaneous Notes* Telephone Encounter - Marielos Mares RN - 02/27/2023 12:28 PM EDT Images from the original note were not included. [employer] message sent by Dr. Cheung to the [...] on her ZIO results. Ok to send [employer] message. Please review and advise. Michaela Luevano MA documented in this encounterOhiohealth [facility]06-15-2023 History of Present illness Narrative* Vargas [...] floor instability. We discussed follow up with [facility] for eval but consider pelvic floor therapy [...] today: Yes Recent Results (from the past 92844 hour(s)) OPIATE/OPIOID/BENZO PRESCRIPTION COMPLIANCE Collection Time: 05/25/21 [...] Better Patient Active Problem List Diagnosis AAT (wrrzq-6-hqreztsogta) deficiency (CMS/HCC) Anxiety Abnormal EKG Bilateral hand [...] symptoms - plans to follow up with [facility] [employer] first - discussed pelvic floor thearpy In [...] labs and med check documented in [facility] encounterFort [facility] Work Phone: [phone]) 757-359905-15-2023 Miscellaneous Notes* Telephone Encounter - Michaela Luevano [...] calling in stating she was seen in [facility] care for heart palpitations, and HR in 50's. Also having dizzy spells. EC thought she should get a holter monitor but wanted her to follow up with her sales representative [employer]. First available isn't until July. Please advise. documented in this encounterOhiohealth [facility]05-07-[facility]23 History of Present illness Narrative* Shahid Gamble APRN.[employer]GNOS TM1 DEVELOPER - 01/01/2023 9:23 AM EDT Subjective [...] 2 days PAST MEDICAL HISTORY Diagnosis Date Vjrrn-3-uycjdmllyvo deficiency (HCC) Cardiac dysrhythmia, unspecified 2007 Depressive [...] coils in fallopian tubes S BALLOON,UTERINE ABLATION 84187 2009 SHX CARDIAC RADIOFREQUENCY ABLATION 2018 ventricular [...] provider/curette Discussed proper ear hygiene. Shahid Gamble APRN.COGNOS TM1 DEVELOPER documented in this encounterOhiohealth [facility]03-14-2023 Instructions* Patient Instructions* JUNE Rodriguez - 11/08/2022 11:57 AM EDT Rest, ice, elevation. Return to ED with new/worsening symptoms. documented in this encounterOhiohealth [facility]03-14-2023 History of Present illness Narrative* Agata Goldman [...] 08, 2022 11:35 AM documented in this encounterOhiohealth [facility]03-14-2023 History of Present illness Narrative* JUNE [...] other complaints PAST MEDICAL HISTORY Diagnosis Date Leqsy-2-wmgxtwhrozl deficiency (HCC) Cardiac dysrhythmia, unspecified 2007 Depressive [...] coils in fallopian tubes S BALLOON,UTERINE ABLATION 10666 2009 SHX CARDIAC RADIOFREQUENCY ABLATION 2018 ventricular [...] ER evaluation. JUNE Rodriguez documented in this encounterOhiohealth [facility]02-20-2023 Chief complaint Narrative - Reported* An [...] PALPITATIONS, SINUS CONGESTION, RUNNY NOSE, SORE THROAT. -[facility] Work Phone: [phone]) 722-413702-16-2023 History of Present illness Narrative* Patient presents [...] of the last Controlled Substance Agreement: 05/25/2021 -[facility] Work Phone: [phone]) 584-340902-13-2023 Miscellaneous Notes* Telephone Encounter - Saranya Breaux [...] 10, 2022 8:26 AM documented in this encounterOhiohealth [facility]01-26-2023 History of Present illness Narrative* Ami Delgado [...] air exchange PAST MEDICAL HISTORY Diagnosis Date Pfbil-6-tvlflgkwycd deficiency (HCC) Cardiac dysrhythmia, unspecified 2007 Depressive [...] coils in fallopian tubes S BALLOON,UTERINE ABLATION 27979 2009 SHX CARDIAC RADIOFREQUENCY ABLATION 2018 ventricular [...] plan. Ami Delgado APRN.CNP documented in this encounterOhiohealth [facility]ide [facility] Hospital01-22-2023 History of Present illness Narrative* VIRTUAL VISIT DUE TO COVID19 . * COUGH WITH CHEST CONGESTION AND SOB ON EXERTION X 4 DAYS . HAD NEGATIVE HOME COVID TEST 3 DAYS AGO.DIDN'T GET THE COVID VACCINES. [facility] Work Phone: [phone]) [phone] Chief complaint Narrative - Reported* An interactive [...] and chest pain. Serves no further complaints -[facility] Work Phone: 1(335) 314-718512-21-2022 History of Present illness Narrative* Patient presents [...] of the last Controlled Substance Agreement: 05/25/2021 -[facility] Work Phone: 1(284) 965-187612-19-2022 Miscellaneous Notes* Telephone Encounter - Kelly Salgado APRN.CNP - 08/15/2022 3:41 PM EST No other recommendations for patient from a bariatric standpoint. This is something that should continue to be managed by her PCP. Please have her continue to follow up with her PCP for this. Kelly Salgado APRN.CNP documented in this encounterOhiohealth Riverside [facility] Hospital11-15-2022 Miscellaneous Notes* Telephone Encounter - Janett Harris-Nurse - 07/12/2022 9:10 AM EST Called to schedule for 6 mo p/o appt. No answer, LVM 6 Month P/O- -SLEEVE 04/11/2022 documented in this encounterOhiohealth Riverside [facility] Hospital11-15-2022 History of Present illness Narrative* Marjan [...] 52.94 kg/(m^2) Total weight loss: 78 lb [place] weight: 70.3 kg (154 lb 14.5 oz) [...] Level: 3 - Low documented in this encounterOhiohealth Riverside [facility] Hospital11-15-2022 History of Present illness Narrative* Audrey Spivey, NELLA - 07/12/2022 7:46 AM EST 3 Month Post-op--Visit conducted via [employer] (audio and visual) d/t COVID 19 Emma [...] support group: encouraged attendance Vitamins--per manual: MVI: [employer] bariatric with 18mg iron, morning B12: 1000mcg [...] Pt is maintaining a food journal daily, [employer] jimbo. Pt presents 2 months post SG. [...] may contain grammatical errors. documented in this encounterOhiohealth [facility]11-07-2022 Miscellaneous Notes* Addendum Note - Kelly Salgado APRN.CNP - 2022 10:52 AM ESTAddended by: KELLY SALGADO on: 2022 10:52 AM Modules accepted: Orders * Telephone Encounter - Johanny Wilkins MA - 2022 8:31 AM EST Please advise if you would be okay with adding this lab. Johanny Wilkins MA 2022 8:32 AM documented in this encounterOhiohealth [facility]10-07-2022 History of Present illness Narrative* Amirah [...] intake: Yes 24 hr recall: 06/02 B: turkmen yogurt (20g) L: chicken salad - ~(21g) [...] her sister also had surgery Vitamins: MVI: [employer] bariatric with 18mg iron capsule - did [...] minutes OR 150 min/week (walking, chair exercises, [employer] LLCF[employer] youtube videos)--consider 10 minute intervals journal daily and bring to all appointments--maintain at least 5-7x/week meet 60-90g protein and 64oz of fluids per day TravelAI bariatric 18mg iron in the morning + 2.5-3, 500mg calcium citrate soft chews split between lunch and dinner Total time in direct patient contact = 20 min. Greater than 50% of the time was spent in counselingand/or coordination of care. Amirah Flores RD This note was generated using voice recognition technology and may contain grammatical errors. documented in this encounterOhiohealth Riverside Methodist Hospital10-06-2022 Miscellaneous Notes* Telephone Encounter - Janett Harris-Nurse - 06/02/2022 10:01 AM EDT Called to schedule 3 Mo P/O , vm full unable to leave message documented in this encounterOhiohealth Riverside Methodist Hospital10-06-2022 History of Present illness Narrative* Marjan Eddy APRN.COGNOS TM1 DEVELOPER - 06/02/2022 9:34 AM EDT BARIATRIC [...] 62.62 kg/(m^2) Total weight loss: 54 lb Lehigh weight: 70.3 kg (154 lb 14.5 oz) [...] 1500mg) Multivitamin & Minerals: 1 per day- TravelAI 18 capsule Iron Supplement: 18mg in MVI [...] counselingand/or coordination of care. documented in this encounterOhiohealth Riverside Methodist Hospital08-31-2022 Miscellaneous Notes* Telephone Encounter - Sarah Brown Ma - 04/27/2022 10:12 AM EDT Pharmacy sent a [employer] message requesting the following refill. Requested Prescriptions Pending Prescriptions Disp Refills pantoprazole DR (PROTONIX) 40 mg tablet [Pharmacy Med Name: PANTOPRAZOLE SOD DR 40 MG TAB] 90 tablet 1 Sig: TAKE 1 TABLET BY MOUTH EVERY DAY Next Appointment: 06/02/2022 Patient Phone numbers: [phone] (home) Request is for script(s) to be escript to pharmacy. Sarah Brown Ma documented in this encounterOhiohealth Riverside Methodist Hospital08-25-2022 History of Present illness Narrative* Audrey Spivey, NELLA - 04/21/2022 1:30 PM EDT 10 days Post-Op--Visit conducted via [employer] Zoom (audio and visual) d/t COVID 19 [...] fatigue Exercise: shopping, ADLs Vitamins--per manual: MVI: TravelAI bariatric with 18mg iron chewable (does ok [...] protein and 64oz of fluids per day TravelAI bariatric 18mg iron in the morning + [...] may contain grammatical errors. documented in this encounterOhiohealth Riverside Methodist Hospital08-24-2022 Miscellaneous Notes* Telephone Encounter - Saranya Breaux RN - 04/20/2022 1:02 PM EDT Images from the original note were not included. MD Saranya Álvarez RN; Marjan Eddy APRN.COGNOS TM1 DEVELOPER I attempted to call and discuss [...] 20, 2022 1:04 PM documented in this encounterOhiohealth Riverside Methodist Hospital08-23-2022 History of Present illness Narrative* RT [...] 2022 TIME: 4:04 PM documented in this encounterOhiohealth Riverside Methodist Hospital08-23-2022 History of Present illness Narrative* Marjan Eddy, CNA [facility]NA[facility] - 04/19/2022 10:24 [...] 64.88 kg/(m^2) Total weight loss: 18 lb Lehigh weight: 70.3 kg (154 lb 14.5 oz) [...] Dr. Davila, covering surgeon. documented in this encounterOhiohealth Riverside Methodist Hospital08-22-2022 Miscellaneous Notes* Telephone Encounter - Jennifer Anthony - 04/18/2022 4:14 PM EDT Patient called pain in side seeing Marjan 04/19/2022 will see her tomorrow documented in this encounterOhiohealth Riverside Methodist Hospital08-18-2022 Miscellaneous Notes* Telephone Encounter - Marjan [...] and protein(60-80 grams/day) as prescribed by the furniture assembly supervisor or nutritional counselor? YES 4. Are you taking the vitamins and minerals as prescribed? YES 5. Do you have the road monkey number to contact your surgeon if you [...] you have an appointment to see a furniture assembly supervisor or nutritional counselor in the next month?YES [...] concerns Marjan Eddy APRN.SWATI documented in this encounterOhiohealth Riverside Methodist Hospital08-16-2022 Miscellaneous Notes* Telephone Encounter - Saranya [...] to call into the bariatric office at [phone], hit option #2 for the post-op line [...] 12, 2022 1:10 PM documented in this encounterOhiohealth Riverside Methodist Hospital08-10-2022 Miscellaneous Notes* Telephone Encounter - Jennifer Anthony - 04/06/2022 4:08 PM EDT Called patient to let them know about pre testing tomorrow LVM documented in this encounterOhiohealth Riverside Methodist Hospital08-09-2022 Miscellaneous Notes* Telephone Encounter - Saranya [...] incidental. Marjan Eddy APRN.SWATI documented in this encounterOhiohealth Riverside Methodist Hospital08-08-2022 Miscellaneous Notes* Telephone Encounter - Sarah [...] it? Sarah Brown Ma documented in this encounterOhiohealth Riverside Methodist Hospital08-04-2022 Instructions* Patient Instructions* Marjan Eddy APRN.CNP [...] into small incisions (cuts) made inyour abdomen ([facility]). The laparoscope is a long metal [...] your medicine. Do not take any medicines, vdqj-prp-socijih drugs, vitamins, herbs or food supplements without [...] be off your narcotic pain medications. Sexual [place] (sex): You may have sex in approximately [...] weight loss surgery, contact the following: o [employer] [employer] [address], [place], [place] www.obesity.org o [place] [employer] (ASMBS) [address] [address] www.asmbs.org o See the attached support group meeting schedule SEEK CARE IMMEDIATELY IF: o You have sudden chest pain, trouble breathing, or are coughing up blood. Call 911 or 0 (App[employer]ck[employer])to get to the nearest hospital or clinic. [...] gastrectomy or your care. documented in this encounterOhiohealth Riverside Methodist Hospital08-04-2022 History of Present illness Narrative* Marjan [...] - allergies PAST MEDICAL HISTORY Diagnosis Date Mdyog-1-wkqgklprmvp deficiency (HCC) Cardiac dysrhythmia, unspecified 2007 Depressive [...] Still need clearance from PCP Marjan Eddy, ALF.COGNOS TM1 DEVELOPER Preoperative instructions discussed with the patient [...] information was sent to the patient through [employer] message as well. I spent a total of 30 minutes on the date of the service which included preparing to see the patient, snhs-dq-ttcl patient care, completing clinical documentation, obtaining and/or reviewing separately obtained history, counseling and educating the patient/family/caregiver, ordering medications, uri ts, or procedures and care coordination (not separately reported). Medical Decision Making: Problems: Moderate: 2+ stable chronic illnesses Data: Assessment requiring an independent historian(s) Risk: Moderate: Drug management Medical Decision Making Level: 4 - Moderate documented in this encounterOhiohealth Riverside Methodist Hospital07-28-2022 History of Present illness Narrative* Marjan [...] On PPI Tylenol: will require Marjan Eddy APRN.COGNOS TM1 DEVELOPER * Tata Chakraborty MD - 03/24/2022 11:16 AM EDT BARIATRIC SURGERY NEW PATIENT CONSULTATION HISTORY AND PHYSICAL Date: March 24, 2022 Time: 11:16 AM Emma Cowart is a 36 year old year old female with obesity (Body mass index is 65.37 kg/m .), anxiety/depression (effexor; PRN ativan), qqrxx-8-bbrlfyojhom carrier(sees hepatobiliary specialist at [facility]), DVT/PE (2019; tx'd w/ 6 months; worked by hematology - remains on lifelong daily ASA 81mg), cardiac arrhythmia (V-tach s/p ablation with no subsequent issues), shahzad thyroiditis, IBS(both diarrhea & constipation), BRISEYDA (mild; no need for PAP tx per software support specialist), and GERD (protonix) who presents to the [...] daily 81 mg ASA. Her father has mdawf-3-tgyghqwzkkb deficiency and underwent a liver transplant. She [...] radiofrequency ablation PAST MEDICAL HISTORY Diagnosis Date Jeond-1-pnyomnhcsvr deficiency (HCC) Cardiac dysrhythmia, unspecified 2007 Depressive [...] coils in fallopian tubes S BALLOON,UTERINE ABLATION 94849 2009 SHX CARDIAC RADIOFREQUENCY ABLATION ventricular TONSILLECTOMY [...] on recommendations of the Governor of the [facility]. We have extensively discussed the nature [...] has a history of DVT 3. AAT (mcrna-0-ifrrorqnwww) deficiency (HCC) - ICD9: 273.4, ICD10: E88.01 [...] - Keep a food journal 5-7x/week (consider [employer] or [employer] jimbo) and demonstrate meeting protein goal (60-90g protein for females, 70-105g protein for males)- Lean meats, fish, low fat dairy - cottage cheese, Citizen [place] yogurt, light yogurt, cheese, ricotta cheese, nuts, [...] the Federal Government which has transiently waved [facility] requirements. The patient agreed to this virtual visit documented in this encounterOhiohealth Riverside Methodist Hospital07-20-2022 History of Present illness Narrative* Amirah [...] at least 5 days per week via [employer] jimbo. Per 24 hr recall, meeting lower [...] with more than 50% of the total bgir-xe-ypvv time of the visit in counseling / coordination of care. Amirah Flores RD This note was generated using voice recognition technology and may contain grammatical errors. documented in this encounterOhiohealth Riverside Methodist Hospital07-19-2022 Miscellaneous Notes* Telephone Encounter - Katie Alvarez MA - 03/15/2022 8:34 AM EDT Called patient for pre-checkin. No answer, and no voicemail set up or it was full Katie Alvarez MA March 15, 2022 documented in this encounterOhiohealth Riverside Methodist Hospital06-21-2022 History of Present illness Narrative* Marjan [...] chart updated): PAST MEDICAL HISTORY Diagnosis Date Itzrn-0-cjydzjghmqb deficiency (HCC) Cardiac dysrhythmia, unspecified 2007 Depressive [...] clearance from nutrition and pulmonology. Follow-up with TAIL WORKER next month to review clearance status. She is scheduled in March to re-consent with Dr. Chakraborty. Marjan Eddy APRN.COGNOS TM1 DEVELOPER Total time in direct patient contact = 13 min. Greater than 50% of the time was spent in counselingand/or coordination of care. This note was generated using voice recognition technology and may contain grammatical errors. documented in this encounterOhiohealth Riverside Methodist Hospital06-21-2022 History of Present illness Narrative* Audrey Spivey, RD - 02/15/2022 9:00 AM EDT Emma Cowart--Visit conducted via [employer] (audio and visual) d/t COVID 19 Month [...] scheduled for re-consent appt in March per TAIL WORKER note 02/15/22. Total time in direct patient contact = 29 minutes. Greater than 50% of the time was spent in counseling and/or coordination of care. Audrey Spivey RD This note was generated using voice recognition technology and may contain grammatical errors. documented in this encounterOhiohealth Riverside Methodist Hospital06-20-2022 Miscellaneous Notes* Telephone Encounter - Laly Nguyen RN - 02/14/2022 4:00 PM EDT I did one and sent it to their office. Thanks, Hung Emerson MD Message text * Telephone Encounter - Laly Nguyen RN - 02/09/2022 1:52 PM EDT Patient is requesting a clearance letter for bariatric surgery sent to Dr Chakraborty . Laly Nguyen RN documented in this encounterOhiohealth Riverside Methodist Hospital06-16-2022 Miscellaneous Notes* Telephone Encounter - Deanna Hale Asst - 02/10/2022 3:37 PM EDT Order for pulmonary clearance [facility]. Deanna Shanelle Adm Asst documented in this encounterOhiohealth Riverside Methodist Hospital06-15-2022 Miscellaneous Notes* Telephone Encounter - Laly [...] Thanks, Hung Emerson MD documented in this encounterOhiohealth Riverside [facility] Hospital06-14-2022 Miscellaneous Notes* Telephone Encounter - Marjan [...] It would be beneficial. documented in this encounterOhiohealth Riverside Methodist Hospital06-08-2022 Miscellaneous Notes* Telephone Encounter - Lisa Esparzauber - 02/02/2022 8:49 AM EDT Images from the original note were not included. Marjan Eddy, CNA GNA.COGNOS TM1 DEVELOPER P [facility] Bariatric Surgery Pool Please request pulmonary/sleep clearance with OK to not use CPAP for mild BRISEYDA before surgery. We did have the OK from sleep med in from 2019. Please request clearance from gastroenterology FAXED. Brooks Soto MD Gastroenterology 02/02/2022 End 02/02/22 ; Hung Emerson MD Pulmonary and Critical Care Medicine 02/02/2022 End 02/02/22 ; Lisa Storey Incubator Operator Bariatric Dept. P: [phone] Ext [phone] documented in this encounterOhiohealth Riverside Methodist Hospital06-08-2022 History of Present illness Narrative* RT [...] 02, 2022 7:23 AM documented in this encounterOhiohealth Riverside Methodist Hospital06-08-2022 History of Present illness Narrative* Mary Laguerre - 02/02/2022 6:54 AM EDT PULM FUNCTION SMARTBLOCK: Provider: Hung Emerson MD Assisting Tech: Mary Laguerre Spirometry w/BD: 1 DLCO: 1 LV - Box: 1 System: [id number] documented in this encounterOhiohealth Riverside Methodist Hospital05-24-2022 History of Present illness Narrative* Marjan Eddy, CNA GNA.[facility] - 01/18/2022 9:25 [...] - allergies PAST MEDICAL HISTORY Diagnosis Date Rzjzl-2-opnrcdmykqz deficiency (HCC) Cardiac dysrhythmia, unspecified 2007 Depressive [...] changes to medical history. Follow up with TAIL WORKER 4 weeks to review clearance status. Marjan Eddy APRN.COGNOS TM1 DEVELOPER Total time in direct patient contact = 14 min. Greater than 50% of the time was spent in counselingand/or coordination of care. This note was generated using voice recognition technology and may contain grammatical errors. documented in this encounterOhiohealth Riverside Methodist Hospital05-20-2022 Miscellaneous Notes* Telephone Encounter - Laly [...] of the gene however. documented in this encounterOhiohealth Riverside Methodist Hospital05-19-2022 History of Present illness Narrative* Brooks [...] Pt's F had OLT for TORRES vs O-3-oxtczysngrc def. Has had hep A and B [...] DIRECTED PRN PAST MEDICAL HISTORY Diagnosis Date Hxetw-1-qyvbjajjkfx deficiency (HCC) Cardiac dysrhythmia, unspecified 2007 Depressive [...] coils in fallopian tubes S BALLOON,UTERINE ABLATION [id number] 2009 SHX CARDIAC RADIOFREQUENCY ABLATION ventricular TONSILLECTOMY [...] surgery. Brooks Soto MD documented in this encounterOhiohealth Riverside Methodist Hospital05-09-2022 History of Present illness Narrative* Hung Emerson MD - 01/03/2022 4:02 PM EDT PATIENT NAME: Emma Cowrat DATE OF SERVICE: January 03, 2022 PRIMARY CARE PHYSICIAN: JUNE Deshpande, PA CARE TEAM: Patient Care Team: JUNE Deshpande as PCP - General (Internal Medicine) Joshua Wall (Hist) Neel as Specialty Molecular Technologist (Cardiology) Edith Taylor MD as Specialty Molecular Technologist (Gastroenterology) Bonita Naqvi as Specialty Molecular Technologist (Rheumatology) Referral No as Referring (Cardiology) Eric [...] however, her father underwent liver transplantation at [facility] main campus for what was thought to be TORRES initially, but is now thought to be due to alpha 1-antitrypsin deficiency. She denies frequent or recurrent respiratory tract infections including pneumonias, sinus infections, and other upper respiratory infections. 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 Hung Emerson MD documented in this encounterOhiohealth Riverside Methodist Hospital05-02-2022 Miscellaneous Notes* Telephone Encounter - Tiffanie [...] elevated liver enzymes Was Patient Referred to [facility]/Seek Emergency Treatment (Y/N): N Did Patient Agree (Y/N): N/A Was An Attempt Made To Transfer The Patient To The Office (Y/N): N Were You Able To Reach Someone At The Office (Y/N): N/A If Yes - Patient Was Transferred To (Caregivers Name): N If No - Which [facility] Leadership Arc Cutter Did You Speak With Regarding This Patient: [...] other than patient: N/A Best contact number: [phone] Thank you, Reynaldo Jasso December 27, 2021 11:51 AM documented in this encounterOhiohealth Riverside Methodist Hospital05-02-2022 History of Present illness Narrative* Amirah [...] exercise 24 hr recall: B: skipped L: slovenian fries D: none S: none F: 64 [...] presents for a nutrition follow up per TAIL WORKER request due to weight regain (29# from 05/26/21). Previously cleared from nutrition on 05/26 (also last time patient met with RD). Will update clearance status today. Patient is tracking 3 days/week via physical food journal, was previously using [employer] jimbo. She is able to calculate her [...] taking flintstones complete MVand has already purchased TravelAI 18 for after surgery. Plan: follow up [...] with more than 50% of the total ktxt-vh-nzue time of the visit in counseling / coordination of care. Amirah Flores RD documented in this encounterOhiohealth Riverside Methodist Hospital04-29-2022 Miscellaneous Notes* Telephone Encounter - Talya Jackson RN - 12/24/2021 1:38 PM EDT Called patient and advised that she needs a follow-up appointment with Dr. Taylor. Message has beensent to Scarlett Amador broadcast operations technician to try to find patient a sooner [...] 12/24/2021 10:59 AM EDT Emma Cowart (Self) [phone] (H) Remove By Analilia Ho Patient called to discuss possible having a diagnosis of Hepatitis. She most recently had a ultrasound with enlarged liver, she would like new lab orders to be placed in epic. She would like a rt call to discuss She is aware she has not been seen since 2018 documented in this encounterOhiohealth Riverside Methodist Hospital04-29-2022 History of Present illness Narrative* Marjan Eddy, CNA GNA.COGNOS TM1 DEVELOPER - 12/24/2021 8:53 AM EDT BARIATRIC [...] remain elevated. She has not seen her core feeder in many years. Continues to have mild RYAN which is lingering from COVID 19 diagnosis. She completed 30 days holtermonitor and results were unremarkable- she has been cleared by cardiology. HISTORY REVIEWED (electronic chart updated): - medical history - medications - allergies PAST MEDICAL HISTORY Diagnosis Date Pnfon-7-wlfhvztihax deficiency (HCC) Cardiac dysrhythmia, unspecified 2007 Depressive [...] antitrypsin trait. She has a GI at [facility] and plans to reach out to [...] since she has consented. Follow up with TAIL WORKER next month to review these clearances. Marjan Eddy, ALF.COGNOS TM1 DEVELOPER Total time in direct patient contact = 20 min. Greater than 50% of the time was spent in counselingand/or coordination of care. This note was generated using voice recognition technology and may contain grammatical errors. documented in this encounterOhiohealth Riverside Methodist Hospital04-15-2022 Miscellaneous Notes* Telephone Encounter - Lisa Storey - 12/10/2021 2:00 PM EDT [facility] review [facility] internal medicine records in scanned documents received today. Lisa Storey Incubator Operator Bariatric Dept. P: [phone] Ext [phone] documented in this encounterOhiohealth Riverside Methodist Hospital04-15-2022 Miscellaneous Notes* Telephone Encounter - Meagan [...] Visit date not found Patient Phone numbers: [phone] (home) Request is for script(s) to be escript to pharmacy. Meagan Fitzgerald MA documented in this encounterOhiohealth Riverside Methodist Hospital04-07-2022 Miscellaneous Notes* Telephone Encounter - Art Capuot APRN.CNP - 12/02/2021 2:23 PM EDT Reviewed; US showed hepatomegaly (23.2cm) and fatty liver. Will route to surgeon. Art Caputo APRN.CNP * Telephone Encounter - Lisa Storey - 12/02/2021 1:27 PM EDT results received and scanned into chart for review. Lisa Storey Incubator Operator Bariatric Dept. P: [phone] Ext [phone] documented in this encounterOhiohealth Riverside Methodist Hospital04-06-2022 Miscellaneous Notes* Telephone Encounter - Leanne [...] 01, 2021 8:00 AM documented in this encounterOhiohealth Riverside Methodist Hospital04-04-2022 Miscellaneous Notes* Telephone Encounter - Johanny Wilkins MA - 11/29/2021 11:09 AM EDT Contacted the patients PCP to obtain most recent labwork. I left a message in the clinical question mailbox to fax results over or call back with any questions. Johanny Wilkins MA November 29, 2021 11:10 AM documented in this encounterOhiohealth Riverside Methodist Hospital03-25-2022 Miscellaneous Notes* Telephone Encounter - Lisa Cordelia - 11/19/2021 11:20 AM EDT Updated cardiac clearance sent to Dr. Garay via [employer] and fax. Lisa Storey Incubator Operator Bariatric Dept. P: [phone] Ext [phone] documented in this encounterOhiohealth Riverside Methodist Hospital03-25-2022 History of Present illness Narrative* Marjan [...] - allergies PAST MEDICAL HISTORY Diagnosis Date Egynj-8-udcwxhnxqrj deficiency (HCC) Cardiac dysrhythmia, unspecified 2007 Depressive [...] rescheduling surgery - May consider MRCP 5. Ipmir-7-echvqijcyxa deficiency (HCC) - ICD9: 273.4, ICD10: E88.01 [...] may contain grammatical errors. documented in this encounterOhiohealth Riverside Methodist Hospital03-25-2022 Miscellaneous Notes* Telephone Encounter - Katie [...] Visit date not found Patient Phone numbers: [phone] (home) Request is for script(s) to be escript to pharmacy. Katie Alvarez MA documented in this encounterOhiohealth Riverside Methodist Hospital12-23-2021 Chief complaint Narrative - Reported* An interactive audio and video telecommunication system which permits real time communications between the patient (at the originating site) and provider (at the distant site) was utilized to providethis telehealth service. * Verbal consent was requested and obtained from EMMA COWART on this date, 08/19/2021 10:20 AM , for a telehealth visit. * 1 WK FU COVID POSITIVE PT FEELING MUCH BETTER MEDS PRESCRIBED MADE HER SICK SO SHE DIDN'T FINISH THEM STILL VERY FATIGUE [facility] Internal Medicine Work Phone: 1(262) 935-768212-11-2021 History of Present illness Narrative* ALLA JERONIMO PATIENT THAT * VIRTUAL APPOINTMENT BEING PERFORMED DUE TO COVID-19 (CORONAVIRUS) * Presents today for 1 WEEK F/U COVID. C/O SLIGHT NASAL CONGESTION AND FATIGUE REMAINS modifying factors consists of POSITIVE COVID ON 08/07/21 associated symptoms consist of SMELL AND TASTE IS OFF. NOSOB OR CP prior treatment consists of medication STOPPED MEDS [facility] Work Phone: 1(559) 365-614112-01-2021 History of Present illness Fpfigtfqa10 YOF presents with concerns of pain above right breast since having COVID-19 in July 2021. She is concerned about increased generalized edema since COVID-19 infection. Also reports increased SOB since COVID-19. Reports having a moderately severe COVID-19 infection.[facility] Work Phone: 1(999) 997-277904-24-2021 History of Present illness Narrative* Alondra Lu [...] 19, 2020 10:41 AM [place] [address] History of Past illness Narrative* Problem Noted Date Resolved Date Nonspecific abnormal results of liver function s tudy 03/03/2008 04/09/2015 documented as of this encounter (statuses as of 11/19/2021) [place] [address]-07-2008 History of Past illness Narrative* Problem Noted Date Resolved Date Nonspecific abnormal results of liver function s dy 03/03/2008 04/09/2015 documented as of this encounter (statuses as of 11/19/2021) [facility] History of Past illness Narrative* Problem Noted Date Resolved Date Nonspecific abnormal results of liver function s dy 03/03/2008 04/09/2015 documented as of this encounter (statuses as of 11/19/2021) [facility] History of Past illness Narrative* Problem Noted Date Resolved Date Nonspecific abnormal results of liver function s dy 03/03/2008 04/09/2015 documented as of this encounter (statuses as of 11/29/2021) [facility] History of Past illness Narrative* Problem Noted Date Resolved Date Nonspecific abnormal results of liver function s dy 03/03/2008 04/09/2015 documented as of this encounter (statuses as of 11/30/2021) [facility]-07-2008 History of Past illness Narrative* Problem Noted Date Resolved Date Nonspecific abnormal results of liver function s dy 03/03/2008 04/09/2015 documented as of this encounter (statuses as of 12/01/2021) [facility] History of Past illness Narrative* Problem Noted Date Resolved Date Nonspecific abnormal results of liver function s dy 03/03/2008 04/09/2015 documented as of this encounter (statuses as of 12/02/2021) [facility] History of Past illness Narrative* Problem Noted Date Resolved Date Nonspecific abnormal results of liver function s dy 03/03/2008 04/09/2015 documented as of this encounter (statuses as of 12/02/2021) [facility] History of Past illness Narrative* Problem Noted Date Resolved Date Nonspecific abnormal results of liver function s dy 03/03/2008 04/09/2015 documented as of this encounter (statuses as of 12/10/2021) [facility] History of Past illness Narrative* Problem Noted Date Resolved Date Nonspecific abnormal results of liver function s dy 03/03/2008 04/09/2015 documented as of this encounter (statuses as of 12/10/2021) [facility] History of Past illness Narrative* Problem Noted Date Resolved Date Nonspecific abnormal results of liver function s dy 03/03/2008 04/09/2015 documented as of this encounter (statuses as of 12/24/2021) [facility] History of Past illness Narrative* Problem Noted Date Resolved Date Nonspecific abnormal results of liver function s tudy 03/03/2008 04/09/2015 documented as of this encounter (statuses as of 12/24/2021) [facility] History of Past illness Narrative* Problem Noted Date Resolved Date Nonspecific abnormal results of liver function s dy 03/03/2008 04/09/2015 documented as of this encounter (statuses as of 12/27/2021) [facility] History of Past illness Narrative* Problem Noted Date Resolved Date Nonspecific abnormal results of liver function s dy 03/03/2008 04/09/2015 documented as of this encounter (statuses as of 12/27/2021) [facility] History of Past illness Narrative* Problem Noted Date Resolved Date Nonspecific abnormal results of liver function s dy 03/03/2008 04/09/2015 documented as of this encounter (statuses as of 01/03/2022) [facility] History of Past illness Narrative* Problem Noted Date Resolved Date Nonspecific abnormal results of liver function s dy 03/03/2008 04/09/2015 documented as of this encounter (statuses as of 01/13/2022) [facility] History of Past illness Narrative* Problem Noted Date Resolved Date Nonspecific abnormal results of liver function s dy 03/03/2008 04/09/2015 documented as of this encounter (statuses as of 01/14/2022) [facility] History of Past illness Narrative* Problem Noted Date Resolved Date Nonspecific abnormal results of liver function s dy 03/03/2008 04/09/2015 documented as of this encounter (statuses as of 01/18/2022) [facility] History of Past illness Narrative* Problem Noted Date Resolved Date Nonspecific abnormal results of liver function s dy 03/03/2008 04/09/2015 documented as of this encounter (statuses as of 02/02/2022) [address]07-2008 History of Past illness Narrative* Problem Noted Date Resolved Date Nonspecific abnormal results of liver function s dy 03/03/2008 04/09/2015 documented as of this encounter (statuses as of 02/02/2022) [facility] History of Past illness Narrative* Problem Noted Date Resolved Date Nonspecific abnormal results of liver function s dy 03/03/2008 04/09/2015 documented as of this encounter (statuses as of 02/03/2022) [facility] History of Past illness Narrative* Problem Noted Date Resolved Date Nonspecific abnormal results of liver function s dy 03/03/2008 04/09/2015 documented as of this encounter (statuses as of 02/08/2022) [facility] History of Past illness Narrative* Problem Noted Date Resolved Date Nonspecific abnormal results of liver function s dy 03/03/2008 04/09/2015 documented as of this encounter (statuses as of 02/09/2022) [facility] History of Past illness Narrative* Problem Noted Date Resolved Date Nonspecific abnormal results of liver function s dy 03/03/2008 04/09/2015 documented as of this encounter (statuses as of 02/10/2022) [facility] History of Past illness Narrative* Problem Noted Date Resolved Date Nonspecific abnormal results of liver function s dy 03/03/2008 04/09/2015 documented as of this encounter (statuses as of 02/14/2022) [facility] History of Past illness Narrative* Problem Noted Date Resolved Date Nonspecific abnormal results of liver function s dy 03/03/2008 04/09/2015 documented as of this encounter (statuses as of 02/15/2022) [facility] History of Past illness Narrative* Problem Noted Date Resolved Date Nonspecific abnormal results of liver function s dy 03/03/2008 04/09/2015 documented as of this encounter (statuses as of 02/15/2022) [facility] History of Past illness Narrative* Problem Noted Date Resolved Date Nonspecific abnormal results of liver function s tudy 03/03/2008 04/09/2015 documented as of this encounter (statuses as of 03/01/2022) [address]07-2008 History of Past illness Narrative* Problem Noted Date Resolved Date Nonspecific abnormal results of liver function s tudy 03/03/2008 04/09/2015 documented as of this encounter (statuses as of 03/02/2022) [facility] History of Past illness Narrative* Problem Noted Date Resolved Date Nonspecific abnormal results of liver function s tudy 03/03/2008 04/09/2015 documented as of this encounter (statuses as of 03/15/2022) [facility] History of Past illness Narrative* Problem Noted Date Resolved Date Nonspecific abnormal results of liver function s tudy 03/03/2008 04/09/2015 documented as of this encounter (statuses as of 03/16/2022) [facility] History of Past illness Narrative* Problem Noted Date Resolved Date Nonspecific abnormal results of liver function s dy 03/03/2008 04/09/2015 documented as of this encounter (statuses as of 03/24/2022) [facility] History of Past illness Narrative* Problem Noted Date Resolved Date Nonspecific abnormal results of liver function s dy 03/03/2008 04/09/2015 documented as of this encounter (statuses as of 03/31/2022) [facility] History of Past illness Narrative* Problem Noted Date Resolved Date Nonspecific abnormal results of liver function s dy 03/03/2008 04/09/2015 documented as of this encounter (statuses as of 03/31/2022) [facility] History of Past illness Narrative* Problem Noted Date Resolved Date Nonspecific abnormal results of liver function s tudy 03/03/2008 04/09/2015 documented as of this encounter (statuses as of 03/31/2022) [facility] History of Past illness Narrative* Problem Noted Date Resolved Date Nonspecific abnormal results of liver function s tudy 03/03/2008 04/09/2015 documented as of this encounter (statuses as of 04/04/2022) [facility] History of Past illness Narrative* Problem Noted Date Resolved Date Nonspecific abnormal results of liver function s dy 03/03/2008 04/09/2015 documented as of this encounter (statuses as of 04/05/2022) [facility] History of Past illness Narrative* Problem Noted Date Resolved Date Nonspecific abnormal results of liver function s dy 03/03/2008 04/09/2015 documented as of this encounter (statuses as of 04/12/2022) [facility] History of Past illness Narrative* Problem Noted Date Resolved Date Nonspecific abnormal results of liver function s dy 03/03/2008 04/09/2015 documented as of this encounter (statuses as of 04/14/2022) [facility] History of Past illness Narrative* Problem Noted Date Resolved Date Nonspecific abnormal results of liver function s dy 03/03/2008 04/09/2015 documented as of this encounter (statuses as of 04/18/2022) [facility] History of Past illness Narrative* Problem Noted Date Resolved Date Nonspecific abnormal results of liver function s dy 03/03/2008 04/09/2015 documented as of this encounter (statuses as of 04/19/2022) [facility] History of Past illness Narrative* Problem Noted Date Resolved Date Nonspecific abnormal results of liver function s dy 03/03/2008 04/09/2015 documented as of this encounter (statuses as of 04/20/2022) [facility] History of Past illness Narrative* Problem Noted Date Resolved Date Nonspecific abnormal results of liver function s dy 03/03/2008 04/09/2015 documented as of this encounter (statuses as of 04/20/2022) [facility] History of Past illness Narrative* Problem Noted Date Resolved Date Nonspecific abnormal results of liver function s dy 03/03/2008 04/09/2015 documented as of this encounter (statuses as of 04/20/2022) [facility] History of Past illness Narrative* Problem Noted Date Resolved Date Nonspecific abnormal results of liver function s dy 03/03/2008 04/09/2015 documented as of this encounter (statuses as of 04/21/2022) [facility] History of Past illness Narrative* Problem Noted Date Resolved Date Nonspecific abnormal results of liver function s dy 03/03/2008 04/09/2015 documented as of this encounter (statuses as of 04/27/2022) [address]07-2008 History of Past illness Narrative* Problem Noted Date Resolved Date Nonspecific abnormal results of liver function s dy 03/03/2008 04/09/2015 documented as of this encounter (statuses as of 06/02/2022) [facility] History of Past illness Narrative* Problem Noted Date Resolved Date Nonspecific abnormal results of liver function s dy 03/03/2008 04/09/2015 documented as of this encounter (statuses as of 06/02/2022) [facility] History of Past illness Narrative* Problem Noted Date Resolved Date Nonspecific abnormal results of liver function s dy 03/03/2008 04/09/2015 documented as of this encounter (statuses as of 06/03/2022) [facility] History of Past illness Narrative* Problem Noted Date Resolved Date Nonspecific abnormal results of liver function s dy 03/03/2008 04/09/2015 documented as of this encounter (statuses as of 2022) [facility] History of Past illness Narrative* Problem Noted Date Resolved Date Nonspecific abnormal results of liver function s dy 03/03/2008 04/09/2015 documented as of this encounter (statuses as of 07/12/2022) [facility] History of Past illness Narrative* Problem Noted Date Resolved Date Nonspecific abnormal results of liver function s dy 03/03/2008 04/09/2015 documented as of this encounter (statuses as of 07/12/2022) [facility] History of Past illness Narrative* Problem Noted Date Resolved Date Nonspecific abnormal results of liver function s dy 03/03/2008 04/09/2015 documented as of this encounter (statuses as of 07/12/2022) [facility] History of Past illness Narrative* Problem Noted Date Resolved Date Nonspecific abnormal results of liver function s dy 03/03/2008 04/09/2015 documented as of this encounter (statuses as of 08/15/2022) [facility] History of Past illness Narrative* Problem Noted Date Resolved Date Nonspecific abnormal results of liver function s tudy 03/03/2008 04/09/2015 documented as of this encounter (statuses as of 09/22/2022) [address]07-2008 History of Past illness Narrative* Problem Noted Date Resolved Date Nonspecific abnormal results of liver function s dy 03/03/2008 04/09/2015 documented as of this encounter (statuses as of 10/10/2022) [facility] History of Past illness Narrative* Problem Noted Date Resolved Date Nonspecific abnormal results of liver function s dy 03/03/2008 04/09/2015 documented as of this encounter (statuses as of 10/11/2022) [facility] History of Past illness Narrative* Problem Noted Date Resolved Date Nonspecific abnormal results of liver function s dy 03/03/2008 04/09/2015 documented as of this encounter (statuses as of 11/08/2022) [facility] History of Past illness Narrative* Problem Noted Date Resolved Date Nonspecific abnormal results of liver function s dy 03/03/2008 04/09/2015 documented as of this encounter (statuses as of 01/01/2023) [facility] History of Past illness Narrative* Problem Noted Date Resolved Date Nonspecific abnormal results of liver function s dy 03/03/2008 04/09/2015 documented as of this encounter (statuses as of 01/09/2023) [facility] History of Past illness Narrative* Problem Noted Date Resolved Date Nonspecific abnormal results of liver function s dy 03/03/2008 04/09/2015 documented as of this encounter (statuses as of 01/09/2023) [facility] History of Past illness Narrative* Problem Noted Date Resolved Date Nonspecific abnormal results of liver function s dy 03/03/2008 04/09/2015 documented as of this encounter (statuses as of 02/27/2023) [facility] History of Past illness Narrative* Problem Noted Date Diagnosed Date Resolved Date Nonspecific abnormal results of liver function study 03/03/2008 04/09/2015 documented as of this encounter (statuses as of 10/27/2023) [facility] - [facility]orted* An interactive [...] and not being allowed to take NSAIDS. -[facility] Internal Medicine Work Phone: discharge summary Author Dr. Sutton [facility] November 15, 2022 1:42pm Note Date/Time November 15, 2022 12: 03pm [facility] Medical Records Department [address] [place] [address] Emergency Department Summary 11/15/22 MR#: [id number] Acct: [id number] Name: EMMA COWART Rep #:[id number] : 1985 37 From: Aftab Sutton MD [...] been moving recently unpacking and lifting. [facility] Medical History Cjsxn-1-gnirrouwlzc deficiency Ankylosing spondylitis Anxiety Arthritis Back problem [...] % (Auto) 66.2 Lymph % (Auto) 24.8 [place] % (Auto) 7.0 Eos % (Auto) 1.7 [...] 12:37 EDT Reading Location ID and State: [facility] / [place] , Service support , For interpreted by [place] as normal Discharge Plan Triage Chief Complaint: [...] your Primary Care Provider. Call [facility] ([phone]) or report to the closest Emergency Room. Call 911 if necessary. 11/15/22 1342 <Electronically signed by Aftab Sutton MD> Cosigner Signature (if applicable): CC: JUNE Mujica ~ Signed [facility] Work Phone: Evaluation + Plan note No data available for this section [facility] Evaluation note* Diagnosis Class 3 severe obesity due to excess calories with serious comorbidity and body mass index (BMI) of 60.0 to 69.9 in adult (HCC) [facility] Diagnosis Class 3 severe obesity due to excess calories with serious comorbidity and body mass index (BMI) of 60.0 to 69.9 in adult (HCC)- Primary V-tach (HCC) Paroxysmal ventricular tachycardia COVID-19 long hauler Elevated liver enzymes Other nonspecific abnormal serum enzyme levels Vckpm-7-oxwxdldkboi deficiency (HCC) Lxzjc-5-drseiwagagh deficiency Gastroesophageal reflux disease without esophagitis Esophageal reflux [facility] Diagnosis Thiamine deficiency Other and unspecified manifestations of thiamine deficiency [facility] Diagnosis Thiamine deficiency Other and unspecified manifestations of thiamine deficiency [facility] Diagnosis Class 3 severe obesity due to excess calories with serious comorbidity and body mass index (BMI) of 60.0 to 69.9 in adult (HCC)- Primary Elevated liver enzymes Other nonspecific abnormal serum enzyme levels Hepatomegaly V-tach (HCC) Paroxysmal ventricular tachycardia COVID-19 long hauler Gastroesophageal reflux disease without esophagitis Esophageal reflux [facility] Class 3 severe obesity due to excess calories with serious comorbidity and body mass index (BMI) of 60.0 to 69.9 in adult (HCC)- Primary [facility] Diagnosis Dyspnea and respiratory abnormalities- Primary Other dyspnea and respiratory abnormality Shortness of breath [facility] Diagnosis Fatty liver- Primary Other chronic nonalcoholic liver disease Increased liver enzymes Other nonspecific abnormal serum enzyme levels Morbid obesity (HCC) Morbid obesity [facility] Diagnosis Class 3 severe obesity due to excess calories with serious comorbidity and body mass index (BMI) of 60.0 to 69.9 in adult (HCC)- Primary Elevated liver enzymes Other nonspecific abnormal serum enzyme levels COVID-19 hcarity padilla Hepatomegaly [facility] Diagnosis Dyspnea and respiratory abnormalities Other dyspnea and respiratory abnormality [facility] Diagnosis Dyspnea and respiratory abnormalities Other dyspnea and respiratory abnormality [facility] Diagnosis Fatty liver Other chronic nonalcoholic liver disease Increased liver enzymes Other nonspecific abnormal serum enzyme levels [facility] Diagnosis TORRES (nonalcoholic steatohepatitis)- Primary Other chronic nonalcoholic liver disease Increased liver enzymes Other nonspecific abnormal serum enzyme levels [facility] Diagnosis Class 3 severe obesity due to excess calories with serious comorbidity and body mass index (BMI) of 60.0 to 69.9 in adult (HCC)- Primary Elevated liver enzymes Other nonspecific abnormal serum enzyme levels COVID-19 charity padilla BRISEYDA (obstructive sleep apnea) Obstructive sleep apnea (adult) (pediatric) [facility] Diagnosis Dietary counseling and surveillance Dietary surveillance and counseling [facility] Diagnosis Morbid obesity (HCC)- Primary Morbid obesity [facility] Diagnosis Class 3 severe obesity due to excess calories with serious comorbidity and body mass index (BMI) of 60.0 to 69.9 in adult (HCC)- Primary Morbid obesity (HCC) Morbid obesity [facility] Diagnosis Class 3 severe obesity due to excess calories with serious comorbidity and body mass index (BMI) of 60.0 to 69.9 in adult (HCC)- Primary History of DVT (deep vein thrombosis) Personal history of venous thrombosis and embolism AAT (jgvxu-2-fvriyngktiv) deficiency (HCC) Ovqdt-9-yrgzckfsczi deficiency BRISEYDA (obstructive sleep apnea) Obstructive sleep apnea (adult) (pediatric) NAFLD (nonalcoholic fatty liver disease) Other chronic nonalcoholic liver disease Heartburn Morbid obesity (HCC) Morbid obesity [facility] Diagnosis Class 3 severe obesity due to excess calories with serious comorbidity and body mass index (BMI) of 60.0 to 69.9 in adult (HCC)- Primary History of DVT (deep vein thrombosis) Personal history of venous thrombosis and embolism Elevated liver enzymes Other nonspecific abnormal serum enzyme levels Morbid obesity (HCC) Morbid obesity [facility]* Diagnosis Thrombocytopenia (HCC)- Primary Thrombocytopenia, unspecified Morbid obesity (HCC) Morbid obesity [facility]* [...] pain, unspecified site [facility] Diagnosis S/P laparoscopic sleeve gastrectomy Bariatric surgery status Right sided abdominal pain Abdominal pain, unspecified site [facility]* Diagnosis Dietary counseling and surveillance [Z71.3 (ICD-10-CM)]- Primary Dietary surveillance and counseling [facility]* Diagnosis Class 3 severe obesity due to excess calories with serious comorbidity and body mass index (BMI) of 60.0 to 69.9 in adult (HCC) [facility]* Diagnosis S/P laparoscopic sleeve gastrectomy- Primary Bariatric surgery status [facility]* Diagnosis Dietary counseling and surveillance [Z71.3 (ICD-10-CM)]- Primary Dietary surveillance and counseling [facility]* Diagnosis Hepatic fibrosis- Primary Cirrhosis 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 mention of alcohol [facility]* Diagnosis S/P laparoscopic sleeve gastrectomy- Primary Bariatric surgery status Elevated liver enzymes Other nonspecific abnormal serum enzyme levels [facility] Diagnosis Dietary counseling and surveillance [Z71.3 (ICD-10-CM)]- Primary Dietary surveillance and counseling [facility] noteNo assessment information availableWSalem [facility] Work Phone: Evaluation note* Diagnosis Acute cough- Primary URI, acute Acute upper respiratory infections of unspecified site Rhinosinusitis Unspecified sinusitis (chronic) [facility]* Diagnosis S/P laparoscopic sleeve gastrectomy- Primary Bariatric surgery status [facility]* Diagnosis Increased PTH level- Primary Unspecified endocrine disorder [facility] Diagnosis Foot pain, right- Primary Pain in limb [facility] Diagnosis Dizziness- Primary Dizziness and giddiness Bilateral impacted cerumen Impacted cerumen [facility]* Diagnosis Dizzy- Primary Dizziness and giddiness documented [facility]* Diagnosis Generalized anxiety disorder- Primary Anxiety [...] episode, moderate (CMS/HCC) documented in this encounter [facility] Work Phone: Evaluation note* Diagnosis Major [...] episode, moderate (CMS/HCC) Generalized anxiety disorder AAT (kkjuc-7-wmgxhgwktia) deficiency ([facility]) Oaplq-5-wkpqkgdamtz deficiency Encounter for screening mammogram for breast cancer Class 3 severe obesity due to excess calories with serious comorbidity and body mass index (BMI) of 50.0 to 59.9 in adult (CMS/HCC) documented in this encounter [facility] Work Phone: Evaluation note* Diagnosis URI, acute- Primary Acute upper respiratory infections of unspecified site Acute cough Acute cough [facility] Diagnosis Acute cough [facility]* Diagnosis Acute cough [facility]* Diagnosis Foot pain, right Pain in limb [facility]* Diagnosis Class 3 severe obesity with body mass index (BMI) of 50.0 to 59.9 in adult, unspecified obesity type, unspecified whether serious comorbidity present ([facility]) [facility]* Diagnosis Foot pain, left- Primary Pain in limb Injury of left foot, initial encounter Foot pain, left Pain in limb Injury of left foot, initial encounter [facility] Diagnosis Foot pain, left Pain in limb Injury of left foot, initial encounter [facility]* Diagnosis Cervicalgia- Primary Anxiety Anxiety state, [...] status Medication management documented in this encounter [facility] Work Phone: Evaluation note* Diagnosis Chronic midline low back pain with sciatica, sciatica laterality unspecified documented in this encounter [facility] Work Phone: Evaluation note* Diagnosis Cervicalgia documented in this encounter [facility] Work Phone: Evaluation note* Diagnosis Major [...] sites Medication management documented in this encounter [facility] Work Phone: Evaluation note* Diagnosis Acute [...] Depression, major, single episode, moderate (Multi) AAT (vpkzo-9-nkvzcoaaclz) deficiency (Multi) Vimwy-9-mzysxduozlk deficiency Encounter for dietary counseling and surveillance Fatty liver disease, nonalcoholic documented in this encounter [facility] Work Phone: Evaluation note* Diagnosis Sinus bradycardia- Primary Other specified cardiac dysrhythmias Encounter for screening for cardiovascular disorders Screening for other and unspecified cardiovascular conditions Chest pain, unspecified type Wide-complex tachycardia Paroxysmal ventricular tachycardia BMI 50.0-59.9, adult (HCC) Body Mass Index 50.0-59.9, adult [facility] Diagnosis Fatigue, unspecified type- Primary Anxiety Anxiety state, unspecified Medication management Palpitations H/O cardiac radiofrequency ablation 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 Class 3 severe obesity due to excess calories with serious comorbidity and body mass index (BMI) of 50.0 to 59.9 in adult ([facility]) Fatty liver disease, nonalcoholic Depression, major, single episode, moderate (Multi) Generalized anxiety disorder Insomnia secondary to depression with anxiety documented in this encounter [facility] Work Phone: History of Present illness [...] * 2 morbid obese * 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 [place] Diagnoses Dyspnea and respiratory abnormalities Procedures LUNG VOLUMES Hung Emerson MD [address] [place] [phone] [address] Referral ID Status Reason Start Date Expiration Date Visits Requested Visits Authorized [id number] Pending Review Auto-Generat ed Referral 01/03/2022 02/02/2023 1 1 * Outpatient Procedure (Routine) - Pending Review Specialty Diagnoses / Procedures Referred By Donna longoria Referred To [facility] [place] Diagnoses Dyspnea and respiratory abnormalities Procedures LUNG DIFFUSION CAPACITY (DLCO) DIFFUSING CAPACITY Hung Emerson MD [address] [place] [phone] [address] Referral ID Status Reason Start Date Expiration Date Visits Requested Visits Authorized [id number] Pending Review Auto-Generat ed Referral 01/03/2022 02/02/2023 1 1 * Outpatient Procedure (Routine) - Pending Review Specialty Diagnoses / Procedures Referred By Donna longoria Referred To [facility] [place] Diagnoses Dyspnea and respiratory abnormalities Procedures SPIROMETRY - BASELINE AND POST DILATOR BRNCDILAT RSPSE SPMTRY PRE&POST-BRNCDILAT ADMN Hung Emerson MD [address] [place] [id number] [address] Referral ID Status Reason Start Date Expiration Date Visits Requested Visits Authorized [id number] Pending Review Auto-Generat ed Referral 01/03/2022 02/02/2023 1 1 * MRI/CT (Routine) - Pending Review Specialty Diagnoses / Procedures Referred By Contac t Referred To Contact CT IMAGING Diagnoses Shortness of breath Procedures CT CHEST WO IVCON DIAGNOSTIC COMPUTED TOMOGRAPHY THORAX W/O CNTRST Hung Emerson MD [address] [place] [address] Ct Imaging Referral ID Status Reason Start Date Expiration Date Visits Requested Visits Authorized [id number] Pending Review Auto-Generat ed Referral 01/03/2022 02/02/2023 1 1 [facility] for referral (narrative)* Diagnostic Procedure Only (Routine) - Authorized Specialty Diagnoses / Procedures Referred By Contac t Referred To Contact US IMAGING Diagnoses Fatty liver Increased liver enzymes Procedures US ABDOMEN COMPLETE US ABDOMINAL REAL TIME W/IMAGE DOCUMENTATION Brooks Soto MD [address] [place] [address] Us Imaging Referral ID Status Reason Start Date Expiration Date Visits Requested Visits Authorized [id number] Authorized Auto-Generat ed Referral 01/13/2022 02/12/2023 1 1 T [facility] for referral (narrative)* Diagnostic Procedure Only (Routine) - Closed Specialty Diagnoses / Procedures [facility] To [facility] US IMAGING Diagnoses Fatty liver Increased liver enzymes Procedures US ABDOMEN COMPLETE US ABDOMINAL REAL TIME W/IMAGE DOCUMENTATION Brooks Soto MD [address] [address] Us Imaging Referral ID Status Reason Start Date Expiration Date V isits Requested Visits Authorized [id number] Closed Auto-Generate d Referral 01/13/2022 02/12/2023 1 1 [facility] for referral (narrative)* Diagnostic Procedure Only (Urgent) - Closed Specialty Diagnoses / Procedures Referred By Contac t Referred To Contact XR IMAGING Diagnoses Foot pain, right Procedures XR FOOT GENERAL 3V AP/LAT/OBL RIGHT RADEX FOOT COMPLETE MINIMUM 3 VIEWS [facility] [address] [place] [address] Xr Imaging Referral ID Status Reason Start Date Expiration Date V isits Requested Visits Authorized [id number] Closed Auto-Generate d Referral 11/08/2022 12/08/2023 1 1 [facility] for referral (narrative)* Diagnostic Procedure Only (Urgent) - Closed Specialty Diagnoses / Procedures Referred By Contac t Referred To Contact XR IMAGING Diagnoses Foot pain, right Procedures XR FOOT GENERAL 3V AP/LAT/OBL RIGHT RADEX FOOT COMPLETE MINIMUM 3 VIEWS [facility] [address] [place] [address] [place] [address] Referral ID Status Reason Start Date Expiration Date V isits Requested Visits Authorized [id number] Closed Auto-Generate d Referral 11/08/2022 12/08/2023 1 1 T [facility] for referral (narrative)* Diagnostic Procedure Only (Urgent) - Closed Specialty Diagnoses / Procedures Referred By Contac t Referred To Contact XR IMAGING Diagnoses Foot pain, left Injury of left foot, initial encounter Procedures XR FOOT GENERAL 3V AP/LAT/OBL LEFT RADEX FOOT COMPLETE MINIMUM 3 VIEWS Kamilla Coon APRN.CNP [address] [id number] [place] [address] Referral ID Status Reason Start Date Expiration Date V isits Requested Visits Authorized [id number] Closed Auto-Generate d Referral 06/07/2024 07/07/2025 1 1 [facility] for referral (narrative)* Diagnostic Procedure Only (Urgent) - Closed Specialty Diagnoses / Procedures Referred By Contac t Referred To Contact XR IMAGING Diagnoses Foot pain, left Injury of left foot, initial encounter Procedures XR FOOT GENERAL 3V AP/LAT/OBL LEFT RADEX FOOT COMPLETE MINIMUM 3 VIEWS Kamilla Coon APRN.COGNOS [employer]EL[employer] [address] [place] [address] [place] [address] Referral ID Status Reason Start Date Expiration Date V isits Requested Visits Authorized [id number] Closed Auto-Generate d Referral 06/07/2024 07/07/2025 1 1 [facility] for visit Narrative* Diagnostic Procedure Only (Routine) - Closed Specialty Diagnoses / Procedures Referred By Contac t Referred To Contact US IMAGING Diagnoses Fatty liver Increased liver enzymes Procedures US ABDOMEN COMPLETE US ABDOMINAL REAL TIME W/IMAGE DOCUMENTATION Brooks Soto MD [address] [address] Us Imaging Referral ID Status Reason Start Date Expiration Date V isits Requested Visits Authorized [id number] Closed Auto-Generate d Referral 01/13/2022 02/12/2023 1 1 [facility] for visit Narrative* Diagnostic Procedure Only (Urgent) - Closed Specialty Diagnoses / Procedures Referred By Contac t Referred To Contact XR IMAGING Diagnoses Foot pain, right Procedures XR FOOT GENERAL 3V AP/LAT/OBL RIGHT RADEX FOOT COMPLETE MINIMUM 3 VIEWS [facility] [address] [place] [address] [place] [address] Referral ID Status Reason Start Date Expiration Date V isits Requested Visits Authorized [id number] Closed Auto-Generate d Referral 11/08/2022 12/08/2023 1 1 [facility] for visit Narrative* Diagnostic Procedure Only (Urgent) - Closed Specialty Diagnoses / Procedures Referred By Contac t Referred To Contact XR IMAGING Diagnoses Foot pain, left Injury of left foot, initial encounter Procedures XR FOOT GENERAL 3V AP/LAT/OBL LEFT RADEX FOOT COMPLETE MINIMUM 3 VIEWS Kamilla Coon APRN.[employer]GNOS TM[employer] DEVELOPER [address] [place] [address] [place] [address] Referral ID Status Reason Start Date Expiration Date V isits Requested Visits Authorized [id number] Closed Auto-Generate d Referral 06/07/2024 07/07/2025 1 1 [facility] for visit Narrative* Imaging (Routine) - Authorized Specialty Diagnoses / Procedures Referred By Donna longoria Referred To Contact Radiology Diagnoses Chronic midline low back pain with sciatica, sciatica laterality unspecified Procedures XR lumbar spine 2-3 views Vargas Mujica, [facility] [address] [place] [address] Phone: tel: fax: Referral ID Status Reason Start Date Expiration Date Visits Requested Visits Authorized [id number] Authorized Perform Procedure 4 07/11/2025 1 1 [facility] Work Phone: Summary Purpose Family History [...] FoundDocuments on File Type Date Recorded Patient Room Cleaner Expl anation Advance Directive(s) 05/20/2021 10:22 AM Advance Directive(s) 03/18/2021 1:41 PM Advance Directive(s) 09/21/2018 4:36 PM Advance Directive(s) 09/20/2018 11:48 AM Latest Code Status on File Code Status Date Activated Date Inactivated Comments Full Code 09/21/2018 5:42 PM 09/26/2018 4:27 PM Full Code Order Discussed With: Patient Full Code 09/18/2018 6:09 PM 09/20/2018 6:11 PM Documents on File Type Date Recorded Patient Room Cleaner Expl anation Advance Directive(s) 05/20/2021 10:22 AM [...] No August 17, 022 8:27am Power of Maint Mechanic No August 17, 2022 8:27am Advance Directive Response Recorded Date/ Time Living Will No November 15, 2022 1:50pm Power of Maint Mechanic No November 15 1:50pm Advance Directive Response Recorded Date/ Time Living Will No January 05, 2023 7 :26am Power of Maint Mechanic No January 05, 2023 7:26am Advance Directive Response Recorded Date/ Time Living Will No October 19 9:13am Power of Maint Mechanic No October 19, 2023 9:13am Latest Code [...] HIGH MDM 60-74 MINUTES Dee Dee Soliman, CNA GNA.COGNOS TM1 DEVELOPER 1 [facility] [address] [place] [address] Referral ID Status Reason Start Date Expiration Date Visits Requested Visits Authorized [id number] Authorized PCP Requested Referral 12/24/2021 03/24/2022 1 1 Specialty Diagnoses / Procedures Referred By Contac t Referred To Contact CT IMAGING Diagnoses S/P laparoscopic sleeve gastrectomy Right sided abdominal pain Procedures CT ABD/PEL W IVCON CT ABD & PELVIS W/CONTRAST Marjan Eddy, CNA GNA.COGNOS TM1 DEVELOPER [address] [place] [address] Ct Imaging Referral ID Status Reason Start Date Expiration Date Visits Requested Visits Authorized [id number] Pending Review Patient Cleared - Admin/Chair man/Directo r advise to proceed 04/19/2022 05/19/2023 2 2 Specialty Diagnoses / Procedures Referred By Contac t Referred To Contact Radiology Diagnoses Encounter for screening mammogram for breast cancer Procedures BI mammo bilateral screening tomosynthesis Vargas Mujica PA-C [address] [place] [address] Referral ID Status Reason Start Date Expiration Date Visits Requested Visits Authorized [id number] Authorized Perform Procedure 09/25/2023 09/24/2024 1 1 Specialty Diagnoses / Procedures Referred By Contac t Referred To Contact Radiology Diagnoses Generalized anxiety disorder Procedures BI mammo bilateral screening tomosynthesis Vargas Mujica PA-C [address] [place] [address] Referral ID Status Reason Start Date Expiration Date Visits Requested Visits Authorized [id number] Authorized Perform Procedure 02/28/2024 02/27/2025 1 1 Chief Complaint and Reason for Visit Chief Complaint chest pain Chief Complaint chest pain PE/NON DOT/DRUG SCREEN/PRC CHEST PAIN Chief Complaint PE/NON DOT/DRUG SCRE EN/PRC CHEST PAIN cp Chief Complaint CHEST PAIN/WEAKNESS head pain Additional Source Comments INFORMATION SOURCE (unrecogn ized section and content) DATE CREATED AUTHOR 10/08/2018 [facility] DATE CREATED AUTHOR AUTHOR'S ORGANIZ ATION 02/20/2019 [facility] DATE CREATED AUTHOR AUTHOR'S ORGANIZ ATION 07/13/2020 [facility] DATE CREATED AUTHOR AUTHOR'S ORGANIZ ATION 10/17/2022 [facility] DATE CREATED AUTHOR AUTHOR'S ORGANIZ ATION 10/18/2022 [facility] DATE CREATED AUTHOR AUTHOR'S ORGANIZ ATION 02/14/2023 [facility] DATE CREATED AUTHOR AUTHOR'S ORGANIZ ATION 07/16/2024 [facility] DATE CREATED AUTHOR AUTHOR'S ORGANIZ ATION 07/16/2024 [facility] DATE CREATED AUTHOR AUTHOR'S ORGANIZ ATION 02/13/2025 [facility] DATE CREATED AUTHOR AUTHOR'S ORGANIZ ATION 05/22/2025 [facility] DATE CREATED AUTHOR AUTHOR'S ORGANIZ ATION 06/07/2025 [facility] DATE CREATED AUTHOR AUTHOR'S ORGANIZ ATION 06/12/2025 [facility] Source Comments (unrecognize d section and content) In the event this informatio n is protected by the Federal Confidentiality of Alcohol and Drug Abuse Patient Records regulations: The Federal rules restrict any use of the information to criminally investigate or prosecute any alcohol or drug abuse patient.[facility] the event this information is protected by the Federal Confidentiality of Alcohol and Drug Abuse Patient Records regulations: The Federal rules restrict any use of the information to criminally investigate or prosecute any alcohol or drug abuse patient.[facility] the event this information is protected by the Federal Confidentiality of Alcohol and Drug Abuse Patient Records regulations: The Federal rules restrict any use of the information to criminally investigate or prosecute any alcohol or drug abuse patient.[facility] the event this information is protected by the Federal Confidentiality of Alcohol and Drug Abuse Patient Records regulations: The Federal rules restrict any use of the information to criminally investigate or prosecute any alcohol or drug abuse patient.[facility] Hospital[facility] the event this information is protected by the Federal Confidentiality of Alcohol and Drug Abuse Patient Records regulations: The Federal rules restrict any use of the information to criminally investigate or prosecute any alcohol or drug abuse patient.[facility] the event this information is protected by the Federal Confidentiality of Alcohol and Drug Abuse Patient Records regulations: The Federal rules restrict any use of the information to criminally investigate or prosecute any alcohol or drug abuse patient.[facility] Hospital[facility] the event this information is protected by the Federal Confidentiality of Alcohol and Drug Abuse Patient Records regulations: The Federal rules restrict any use of the information to criminally investigate or prosecute any alcohol or drug abuse patient.[facility] Hospital[facility] the event this information is protected by the Federal Confidentiality of Alcohol and Drug Abuse Patient Records regulations: The Federal rules restrict any use of the information to criminally investigate or prosecute any alcohol or drug abuse patient.[facility] Hospital[facility] the event this information is protected by the Federal Confidentiality of Alcohol and Drug Abuse Patient Records regulations: The Federal rules restrict any use of the information to criminally investigate or prosecute any alcohol or drug abuse patient.[facility] Hospital[facility] the event this information is protected by the Federal Confidentiality of Alcohol and Drug Abuse Patient Records regulations: The Federal rules restrict any use of the information to criminally investigate or prosecute any alcohol or drug abuse patient.[facility] Hospital[facility] the event this information is protected by the Federal Confidentiality of Alcohol and Drug Abuse Patient Records regulations: The Federal rules restrict any use of the information to criminally investigate or prosecute any alcohol or drug abuse patient.[facility] HospitalIn the event this information is protected by the Federal Confidentiality of Alcohol and Drug Abuse Patient Records regulations: The Federal rules restrict any use of the information to criminally investigate or prosecute any alcohol or drug abuse patient.[facility] Hospital[facility] the event this information is protected by the Federal Confidentiality of Alcohol and Drug Abuse Patient Records regulations: The Federal rules restrict any use of the information to criminally investigate or prosecute any alcohol or drug abuse patient.[facility] HospitalIn the event this information is protected by the Federal Confidentiality of Alcohol and Drug Abuse Patient Records regulations: The Federal rules restrict any use of the information to criminally investigate or prosecute any alcohol or drug abuse patient.[facility] HospitalIn the event this information is protected by the Federal Confidentiality of Alcohol and Drug Abuse Patient Records regulations: The Federal rules restrict any use of the information to criminally investigate or prosecute any alcohol or drug abuse patient.[facility] HospitalIn the event this information is protected by the Federal Confidentiality of Alcohol and Drug Abuse Patient Records regulations: The Federal rules restrict any use of the information to criminally investigate or prosecute any alcohol or drug abuse patient.[facility] HospitalIn the event this information is protected by the Federal Confidentiality of Alcohol and Drug Abuse Patient Records regulations: The Federal rules restrict any use of the information to criminally investigate or prosecute any alcohol or drug abuse patient.[facility] HospitalIn the event this information is protected by the Federal Confidentiality of Alcohol and Drug Abuse Patient Records regulations: The Federal rules restrict any use of the information to criminally investigate or prosecute any alcohol or drug abuse patient.[facility] HospitalIn the event this information is protected by the Federal Confidentiality of Alcohol and Drug Abuse Patient Records regulations: The Federal rules restrict any use of the information to criminally investigate or prosecute any alcohol or drug abuse patient.[facility] HospitalIn the event this information is protected by the Federal Confidentiality of Alcohol and Drug Abuse Patient Records regulations: The Federal rules restrict any use of the information to criminally investigate or prosecute any alcohol or drug abuse patient.[facility] HospitalIn the event this information is protected by the Federal Confidentiality of Alcohol and Drug Abuse Patient Records regulations: The Federal rules restrict any use of the information to criminally investigate or prosecute any alcohol or drug abuse patient.[facility] HospitalIn the event this information is protected by the Federal Confidentiality of Alcohol and Drug Abuse Patient Records regulations: The Federal rules restrict any use of the information to criminally investigate or prosecute any alcohol or drug abuse patient.[facility] HospitalIn the event this information is protected by the Federal Confidentiality of Alcohol and Drug Abuse Patient Records regulations: The Federal rules restrict any use of the information to criminally investigate or prosecute any alcohol or drug abuse patient.[facility] HospitalIn the event this information is protected by the Federal Confidentiality of Alcohol and Drug Abuse Patient Records regulations: The Federal rules restrict any use of the information to criminally investigate or prosecute any alcohol or drug abuse patient.[facility] HospitalIn the event this information is protected by the Federal Confidentiality of Alcohol and Drug Abuse Patient Records regulations: The Federal rules restrict any use of the information to criminally investigate or prosecute any alcohol or drug abuse patient.[facility] HospitalIn the event this information is protected by the Federal Confidentiality of Alcohol and Drug Abuse Patient Records regulations: The Federal rules restrict any use of the information to criminally investigate or prosecute any alcohol or drug abuse patient.[facility] HospitalIn the event this information is protected by the Federal Confidentiality of Alcohol and Drug Abuse Patient Records regulations: The Federal rules restrict any use of the information to criminally investigate or prosecute any alcohol or drug abuse patient.[facility] HospitalIn the event this information is protected by the Federal Confidentiality of Alcohol and Drug Abuse Patient Records regulations: The Federal rules restrict any use of the information to criminally investigate or prosecute any alcohol or drug abuse patient.[facility] HospitalIn the event this information is protected by the Federal Confidentiality of Alcohol and Drug Abuse Patient Records regulations: The Federal rules restrict any use of the information to criminally investigate or prosecute any alcohol or drug abuse patient.[facility] HospitalIn the event this information is protected by the Federal Confidentiality of Alcohol and Drug Abuse Patient Records regulations: The Federal rules restrict any use of the information to criminally investigate or prosecute any alcohol or drug abuse patient.[facility] HospitalIn the event this information is protected by the Federal Confidentiality of Alcohol and Drug Abuse Patient Records regulations: The Federal rules restrict any use of the information to criminally investigate or prosecute any alcohol or drug abuse patient.[facility] HospitalIn the event this information is protected by the Federal Confidentiality of Alcohol and Drug Abuse Patient Records regulations: The Federal rules restrict any use of the information to criminally investigate or prosecute any alcohol or drug abuse patient.[facility] HospitalIn the event this information is protected by the Federal Confidentiality of Alcohol and Drug Abuse Patient Records regulations: The Federal rules restrict any use of the information to criminally investigate or prosecute any alcohol or drug abuse patient.[facility] HospitalIn the event this information is protected by the Federal Confidentiality of Alcohol and Drug Abuse Patient Records regulations: The Federal rules restrict any use of the information to criminally investigate or prosecute any alcohol or drug abuse patient.[facility] HospitalIn the event this information is protected by the Federal Confidentiality of Alcohol and Drug Abuse Patient Records regulations: The Federal rules restrict any use of the information to criminally investigate or prosecute any alcohol or drug abuse patient.[facility] HospitalIn the event this information is protected by the Federal Confidentiality of Alcohol and Drug Abuse Patient Records regulations: The Federal rules restrict any use of the information to criminally investigate or prosecute any alcohol or drug abuse patient.[facility] HospitalIn the event this information is protected by the Federal Confidentiality of Alcohol and Drug Abuse Patient Records regulations: The Federal rules restrict any use of the information to criminally investigate or prosecute any alcohol or drug abuse patient.[facility] HospitalIn the event this information is protected by the Federal Confidentiality of Alcohol and Drug Abuse Patient Records regulations: The Federal rules restrict any use of the information to criminally investigate or prosecute any alcohol or drug abuse patient.[facility] HospitalIn the event this information is protected by the Federal Confidentiality of Alcohol and Drug Abuse Patient Records regulations: The Federal rules restrict any use of the information to criminally investigate or prosecute any alcohol or drug abuse patient.[facility] HospitalIn the event this information is protected by the Federal Confidentiality of Alcohol and Drug Abuse Patient Records regulations: The Federal rules restrict any use of the information to criminally investigate or prosecute any alcohol or drug abuse patient.[facility] HospitalIn the event this information is protected by the Federal Confidentiality of Alcohol and Drug Abuse Patient Records regulations: The Federal rules restrict any use of the information to criminally investigate or prosecute any alcohol or drug abuse patient.[facility] HospitalIn the event this information is protected by the Federal Confidentiality of Alcohol and Drug Abuse Patient Records regulations: The Federal rules restrict any use of the information to criminally investigate or prosecute any alcohol or drug abuse patient.[facility] HospitalIn the event this information is protected by the Federal Confidentiality of Alcohol and Drug Abuse Patient Records regulations: The Federal rules restrict any use of the information to criminally investigate or prosecute any alcohol or drug abuse patient.[facility] HospitalIn the event this information is protected by the Federal Confidentiality of Alcohol and Drug Abuse Patient Records regulations: The Federal rules restrict any use of the information to criminally investigate or prosecute any alcohol or drug abuse patient.[facility] HospitalIn the event this information is protected by the Federal Confidentiality of Alcohol and Drug Abuse Patient Records regulations: The Federal rules restrict any use of the information to criminally investigate or prosecute any alcohol or drug abuse patient.[facility] HospitalIn the event this information is protected by the Federal Confidentiality of Alcohol and Drug Abuse Patient Records regulations: The Federal rules restrict any use of the information to criminally investigate or prosecute any alcohol or drug abuse patient.[facility] HospitalIn the event this information is protected by the Federal Confidentiality of Alcohol and Drug Abuse Patient Records regulations: The Federal rules restrict any use of the information to criminally investigate or prosecute any alcohol or drug abuse patient.[facility] HospitalIn the event this information is protected by the Federal Confidentiality of Alcohol and Drug Abuse Patient Records regulations: The Federal rules restrict any use of the information to criminally investigate or prosecute any alcohol or drug abuse patient.[facility] HospitalIn the event this information is protected by the Federal Confidentiality of Alcohol and Drug Abuse Patient Records regulations: The Federal rules restrict any use of the information to criminally investigate or prosecute any alcohol or drug abuse patient.[facility] HospitalIn the event this information is protected by the Federal Confidentiality of Alcohol and Drug Abuse Patient Records regulations: The Federal rules restrict any use of the information to criminally investigate or prosecute any alcohol or drug abuse patient.[facility] HospitalIn the event this information is protected by the Federal Confidentiality of Alcohol and Drug Abuse Patient Records regulations: The Federal rules restrict any use of the information to criminally investigate or prosecute any alcohol or drug abuse patient.[facility] HospitalIn the event this information is protected by the Federal Confidentiality of Alcohol and Drug Abuse Patient Records regulations: The Federal rules restrict any use of the information to criminally investigate or prosecute any alcohol or drug abuse patient.[facility] HospitalIn the event this information is protected by the Federal Confidentiality of Alcohol and Drug Abuse Patient Records regulations: The Federal rules restrict any use of the information to criminally investigate or prosecute any alcohol or drug abuse patient.[facility] HospitalIn the event this information is protected by the Federal Confidentiality of Alcohol and Drug Abuse Patient Records regulations: The Federal rules restrict any use of the information to criminally investigate or prosecute any alcohol or drug abuse patient.[facility] HospitalIn the event this information is protected by the Federal Confidentiality of Alcohol and Drug Abuse Patient Records regulations: The Federal rules restrict any use of the information to criminally investigate or prosecute any alcohol or drug abuse patient.[facility] HospitalIn the event this information is protected by the Federal Confidentiality of Alcohol and Drug Abuse Patient Records regulations: The Federal rules restrict any use of the information to criminally investigate or prosecute any alcohol or drug abuse patient.[facility] HospitalIn the event this information is protected by the Federal Confidentiality of Alcohol and Drug Abuse Patient Records regulations: The Federal rules restrict any use of the information to criminally investigate or prosecute any alcohol or drug abuse patient.[facility] HospitalIn the event this information is protected by the Federal Confidentiality of Alcohol and Drug Abuse Patient Records regulations: The Federal rules restrict any use of the information to criminally investigate or prosecute any alcohol or drug abuse patient.[facility] HospitalIn the event this information is protected by the Federal Confidentiality of Alcohol and Drug Abuse Patient Records regulations: The Federal rules restrict any use of the information to criminally investigate or prosecute any alcohol or drug abuse patient.[facility] HospitalIn the event this information is protected by the Federal Confidentiality of Alcohol and Drug Abuse Patient Records regulations: The Federal rules restrict any use of the information to criminally investigate or prosecute any alcohol or drug abuse patient.[facility] HospitalIn the event this information is protected by the Federal Confidentiality of Alcohol and Drug Abuse Patient Records regulations: The Federal rules restrict any use of the information to criminally investigate or prosecute any alcohol or drug abuse patient.[facility] HospitalIn the event this information is protected by the Federal Confidentiality of Alcohol and Drug Abuse Patient Records regulations: The Federal rules restrict any use of the information to criminally investigate or prosecute any alcohol or drug abuse patient.[facility] HospitalIn the event this information is protected by the Federal Confidentiality of Alcohol and Drug Abuse Patient Records regulations: The Federal rules restrict any use of the information to criminally investigate or prosecute any alcohol or drug abuse patient.[facility] HospitalIn the event this information is protected by the Federal Confidentiality of Alcohol and Drug Abuse Patient Records regulations: The Federal rules restrict any use of the information to criminally investigate or prosecute any alcohol or drug abuse patient.[facility] HospitalIn the event this information is protected by the Federal Confidentiality of Alcohol and Drug Abuse Patient Records regulations: The Federal rules restrict any use of the information to criminally investigate or prosecute any alcohol or drug abuse patient.[facility] HospitalIn the event this information is protected by the Federal Confidentiality of Alcohol and Drug Abuse Patient Records regulations: The Federal rules restrict any use of the information to criminally investigate or prosecute any alcohol or drug abuse patient.[facility] HospitalIn the event this information is protected by the Federal Confidentiality of Alcohol and Drug Abuse Patient Records regulations: The Federal rules restrict any use of the information to criminally investigate or prosecute any alcohol or drug abuse patient.[facility] HospitalIn the event this information is protected by the Federal Confidentiality of Alcohol and Drug Abuse Patient Records regulations: The Federal rules restrict any use of the information to criminally investigate or prosecute any alcohol or drug abuse patient.[facility] HospitalIn the event this information is protected by the Federal Confidentiality of Alcohol and Drug Abuse Patient Records regulations: The Federal rules restrict any use of the information to criminally investigate or prosecute any alcohol or drug abuse patient.[facility] HospitalIn the event this information is protected by the Federal Confidentiality of Alcohol and Drug Abuse Patient Records regulations: The Federal rules restrict any use of the information to criminally investigate or prosecute any alcohol or drug abuse patient.[facility] HospitalIn the event this information is protected by the Federal Confidentiality of Alcohol and Drug Abuse Patient Records regulations: The Federal rules restrict any use of the information to criminally investigate or prosecute any alcohol or drug abuse patient.[facility] HospitalIn the event this information is protected by the Federal Confidentiality of Alcohol and Drug Abuse Patient Records regulations: The Federal rules restrict any use of the information to criminally investigate or prosecute any alcohol or drug abuse patient.[facility] HospitalIn the event this information is protected by the Federal Confidentiality of Alcohol and Drug Abuse Patient Records regulations: The Federal rules restrict any use of the information to criminally investigate or prosecute any alcohol or drug abuse patient.[facility] HospitalIn the event this information is protected by the Federal Confidentiality of Alcohol and Drug Abuse Patient Records regulations: The Federal rules restrict any use of the information to criminally investigate or prosecute any alcohol or drug abuse patient.[facility] HospitalIn the event this information is protected by the Federal Confidentiality of Alcohol and Drug Abuse Patient Records regulations: The Federal rules restrict any use of the information to criminally investigate or prosecute any alcohol or drug abuse patient.[facility] HospitalIn the event this information is protected by the Federal Confidentiality of Alcohol and Drug Abuse Patient Records regulations: The Federal rules restrict any use of the information to criminally investigate or prosecute any alcohol or drug abuse patient.[facility] HospitalIn the event this information is protected by the Federal Confidentiality of Alcohol and Drug Abuse Patient Records regulations: The Federal rules restrict any use of the information to criminally investigate or prosecute any alcohol or drug abuse patient.[facility] HospitalIn the event this information is protected by the Federal Confidentiality of Alcohol and Drug Abuse Patient Records regulations: The Federal rules restrict any use of the information to criminally investigate or prosecute any alcohol or drug abuse patient.[facility] Reason for Visit (unrecogniz ed section and content) Reason Comments Refill Request Reason Comments Follow Up Reason Comments Medical Clearance Reason Comments Patient Update Outside lab results Reason Comments Appointment Reason Comments Radiology US results Reason Comments Received Outside Medical Records [place] [facility] medicine Reason Comments Established Patient Reason Comments [...] Hung Emerson MD [address] [place] [address] Respiratory [place] [id number] Referral ID Status Reason Start Date Expiration Date V isits Requested Visits Authorized [id number] Closed Auto-Generate d Referral 01/03/2022 02/02/2023 1 1 Specialty Diagnoses / Procedures Referred By [facility]ac t Referred To [facility] Diagnoses Dyspnea and respiratory abnormalities Procedures LUNG DIFFUSION CAPACITY (DLCO) DIFFUSING CAPACITY Hung Emerson MD [address] [place] [address] [address] [address] Referral ID Status Reason Start Date Expiration Date V isits Requested Visits Authorized [id number] Closed Auto-Generate d Referral 01/03/2022 02/02/2023 1 1 Specialty Diagnoses / [facility] Diagnoses Dyspnea and respiratory abnormalities Procedures LUNG VOLUMES PLETHYSMOGRAPHY LUNG VOLUMES W/WO AIRWAY RESIST Hung Emerson MD [address] [place] [address] [address] [address] Referral ID Status Reason Start Date Expiration Date V isits Requested Visits Authorized [id number] Closed Auto-Generate d Referral 01/19/2022 08/27/2022 1 [...] CT ABD & PELVIS W/CONTRAST Marjan Eddy, CNA GNA.[employer]1 DEVELOPER [address] [place] [address] Ct Imaging Referral ID Status Reason Start Date Expiration Date Visits Requested Visits Authorized [id number] Pending Review Patient Cleared - Admin/Chair man/Directo [...] Care Teams (unrecognized sec tion and content) Arc Cutter Relationship Specialty Start Date End Date Vargas Mujica PA [address] [place], [place] [id number] PCP - General Internal Medicine 09/17/18 Joshua Camacho (Hist) [address] [place] [address] Specialty Molecular Technologist Cardiology 09/19/18 Edith Taylor MD [address] [place] [address] Specialty Molecular Technologist Gastroenterology 09/19/18 Bonita Naqvi [address] [facility] [place], [place] [id number] Specialty Molecular Technologist Rheumatology 09/19/18 No, Referral Referring Cardiology 06/26/19 Eric Crooks MD [address] [place], [place] [id number] Primary Staff Physician Cardiology 02/11/20 Arc Cutter Relationship Specialty Start Date End Date Vargas Mujica PA [address] [place] [address] PCP - General Internal Medicine 09/17/18 Joshua Camacho (Hist) [address] [facility] [place] [place] [address] Specialty Molecular Technologist Cardiology 09/19/18 Edith Taylor MD [address] [place] [address] Specialty Molecular Technologist Gastroenterology 09/19/18 Bonita Naqvi [address] [facility] [place], [place] [id number] Specialty Molecular Technologist Rheumatology 09/19/18 No, Referral Referring Cardiology 06/26/19 Eric Crooks MD [address] [place] [address] Primary Staff Physician Cardiology 02/11/20 Arc Cutter Relationship Specialty Start Date End Date Vargas Mujica, JUNE [address] [place] [address] PCP - General Internal Medicine 09/17/18 Joshua Camacho (Hist) [address] [facility] [place] [address] Specialty Molecular Technologist Cardiology 09/19/18 Edith Taylor MD [address] [place] [address] Specialty Molecular Technologist Gastroenterology 09/19/18 Bonita Naqvi [address] [place] [address] Specialty Molecular Technologist Rheumatology 09/19/18 No, Referral Referring Cardiology 06/26/19 Eric Crooks MD [address] [place] [address] Primary Staff Physician Cardiology 02/11/20 Arc Cutter Relationship Specialty Start Date End Date Vargas Mujica, JUNE [address] [place] [address] PCP - General Internal Medicine 09/17/18 Joshua Camacho (Hist) [address] [facility] [place] [address] Specialty Molecular Technologist Cardiology 09/19/18 Edith Taylor MD [address] [place] [address] Specialty Molecular Technologist Gastroenterology 09/19/18 Bonita Naqvi [address] [place] [address] Specialty Molecular Technologist Rheumatology 09/19/18 No, Referral Referring Cardiology 06/26/19 Erci Crooks MD [address] [place] [address] Primary Staff Physician Cardiology 02/11/20 Tomasz Garay MD [address] [place] [address] Cardiology 11/24/21 Arc Cutter Relationship Specialty Start Date End Date Vargas Mujica PA [address] [place], [place] [id number] PCP - General Internal Medicine 09/17/18 Joshua Camacho (Hist) [address] [place] [address] Specialty Molecular Technologist Cardiology 09/19/18 Edith Taylor MD [address] [place] [address] Specialty Molecular Technologist Gastroenterology 09/19/18 Bonita Naqvi [address] [place] [address] Specialty Molecular Technologist Rheumatology 09/19/18 No, Referral Referring Cardiology 06/26/19 Eric Crooks MD [address] [place] [address] Primary Staff Physician Cardiology 02/11/20 Tomasz Garay MD [address] [place] [address] Cardiology 11/24/21 Arc Cutter Relationship Specialty Start Date End Date Vargas Mujica PA [address] [place], [place] [id number] PCP - General Internal Medicine 09/17/18 Joshua Camacho (Hist) [address] [place] [address] (Fax) Specialty Molecular Technologist Cardiology 09/19/18 Edith Taylor MD [address] [place], [place] [id number] Specialty Molecular Technologist Gastroenterology 09/19/18 Bonita Naqvi [address] [place] [address] Specialty Molecular Technologist Rheumatology 09/19/18 No, Referral Referring Cardiology 06/26/19 [facility] [address] [place], [place] [id number] Primary Staff Physician Cardiology 02/11/20 Tomasz Garay MD [address] [place] [address] Cardiology 11/24/21 Arc Cutter Relationship Specialty Start Date End Date Vargas Mujica, JUNE [address] [place] [address] PCP - General Internal Medicine 09/17/18 Joshua Camacho (Hist) [address] [place] [address] (Fax) Specialty Molecular Technologist Cardiology 09/19/18 Edith Taylor MD [address] [place] [address] Specialty Molecular Technologist Gastroenterology 09/19/18 Bonita Naqvi [address] [place] [address] Specialty Molecular Technologist Rheumatology 09/19/18 No, Referral Referring Cardiology 06/26/19 Eric Crooks MD [address] [place] [address] Primary Staff Physician Cardiology 02/11/20 Tomasz Garay MD [address] [facility] [place] [address] Cardiology 11/24/21 Arc Cutter Relationship Specialty Start Date End Date Vargas Mujica PA [address] [place] [address] PCP - General Internal Medicine 09/17/18 Joshua Camacho (Hist) [address] [facility] [place] [address] Specialty Molecular Technologist Cardiology 09/19/18 Edith Taylor MD [address] [place] [address] Specialty Molecular Technologist Gastroenterology 09/19/18 Bonita Naqvi [address] [place] [address] Specialty Molecular Technologist Rheumatology 09/19/18 No, Referral Referring Cardiology 06/26/19 Eric Crooks MD [address] [place] [address] Primary Staff Physician Cardiology 02/11/20 Tomasz Garay MD [address] [place] [address] Cardiology 11/24/21 Arc Cutter Relationship Specialty Start Date End Date Vargas Mujica PA [address] [place] [address] PCP - General Internal Medicine 09/17/18 Joshua Camacho (Hist) [address] [place] [address] Specialty Molecular Technologist Cardiology 09/19/18 Edith Taylor MD [address] [place] [address] Specialty Molecular Technologist Gastroenterology 09/19/18 Bonita Naqvi [address] [place] [address] Specialty Molecular Technologist Rheumatology 09/19/18 No, Referral Referring Cardiology 06/26/19 Eric Crooks MD [address] [place] [address] Primary Staff Physician Cardiology 02/11/20 Tomasz Garay MD [address] [place] [address] Cardiology 11/24/21 Arc Cutter Relationship Specialty Start Date End Date Vargas Mujica, PA [address] [place] [address] PCP - General Internal Medicine 09/17/18 Joshua Camacho (Hist) [address] [place] [address] Specialty Molecular Technologist Cardiology 09/19/18 Edith Taylor MD [address] [place] [address] Specialty Molecular Technologist Gastroenterology 09/19/18 Bonita Naqvi [address] [place] [address] Specialty Molecular Technologist Rheumatology 09/19/18 No, Referral Referring Cardiology 06/26/19 Eric Crooks MD [address] [place] [address] Primary Staff Physician Cardiology 02/11/20 Tomasz Garay MD [address] [place] [address] Cardiology 11/24/21 Arc Cutter Relationship Specialty Start Date End Date Vargas Mujica, PA [address] [place] [address] PCP - General Internal Medicine 09/17/18 Joshua Camacho (Hist) [address] [place] [address] Specialty Molecular Technologist Cardiology 09/19/18 Edith Taylor MD [address] [place] [address] Specialty Molecular Technologist Gastroenterology 09/19/18 Bonita Naqvi [address] [place] [address] Specialty Molecular Technologist Rheumatology 09/19/18 No, Referral Referring Cardiology 06/26/19 Eric Crooks MD [address] [place] [address] Primary Staff Physician Cardiology 02/11/20 Tomasz Garay MD [address] [place] [address] Cardiology 11/24/21 Arc Cutter Relationship Specialty Start Date End Date Vargas Mujica, PA [address] [place] [address] PCP - General Internal Medicine 09/17/18 Joshua Camacho (Hist) [address] [place] [place] [address] Specialty Molecular Technologist Cardiology 09/19/18 Edith Taylor MD [address] [place], [place] [id number] Specialty Molecular Technologist Gastroenterology 09/19/18 Bonita Naqvi [address] [place] [address] Specialty Molecular Technologist Rheumatology 09/19/18 No, Referral Referring Cardiology 06/26/19 Eric Crooks MD [address] [place] [address] Primary Staff Physician Cardiology 02/11/20 Tomasz Garay MD [address] [facility] [place], [place] 492411 Cardiology 11/24/21 Arc Cutter Relationship Specialty Start Date End Date Vargas Mujica PA [address] [place] [address] PCP - General Internal Medicine 09/17/18 Joshua Camacho (Hist) [address] [place], [place] 467941 Specialty Molecular Technologist Cardiology 09/19/18 Edith Taylor MD [address] [place] [address] Specialty Molecular Technologist Gastroenterology 09/19/18 Bonita Naqvi [address] [place] [address] Specialty Molecular Technologist Rheumatology 09/19/18 No, Referral Referring Cardiology 06/26/19 Eric Crooks MD [address] [place] [address] Primary Staff Physician Cardiology 02/11/20 Tomasz Garay MD [address] [place] [address] Cardiology 11/24/21 Arc Cutter Relationship Specialty Start Date End Date Vargas Mujica PA [address] [place], [place] [id number] PCP - General Internal Medicine 09/17/18 Joshua Camacho (Hist) [address] [place] [address] (Fax) Specialty Molecular Technologist Cardiology 09/19/18 Edith Taylor MD [address] [place], [place] [id number] Specialty Molecular Technologist Gastroenterology 09/19/18 Bonita Naqvi [address] [facility] [place] [address] Specialty Molecular Technologist Rheumatology 09/19/18 No, Referral Referring Cardiology 06/26/19 Eric Crooks MD [address] [place] [address] Primary Staff Physician Cardiology 02/11/20 Tomasz Garay MD [address] [facility] [place] [address] Cardiology 11/24/21 Arc Cutter Relationship Specialty Start Date End Date Vargas Mujica PA [address] [place] [address] PCP - General Internal Medicine 09/17/18 Joshua Camacho (Hist) [address] [place] [address] Specialty Molecular Technologist Cardiology 09/19/18 Edith Taylor MD Specialty Molecular Technologist Gastroenterology 09/19/18 Bonita Naqvi [address] [facility] [place] [address] Specialty Molecular Technologist Rheumatology 09/19/18 No, Referral Referring Cardiology 06/26/19 Eric Crooks MD [address] [place], [place] [id number] Primary Staff Physician Cardiology 02/11/20 Tomasz Garay MD [address] [facility] [place], [place] [id number] Cardiology 11/24/21 Arc Cutter Relationship Specialty Start Date End Date Vargas Mujica, PA [address] [place] [place] [address] PCP - General Internal Medicine 09/17/18 Joshua Camacho (Hist) [address] [facility] [place], [place] [id number] Specialty Molecular Technologist Cardiology 09/19/18 Edith Taylor MD [address] [place] [address] Specialty Molecular Technologist Gastroenterology 09/19/18 Bonita Naqvi [address] [place] [address] Specialty Molecular Technologist Rheumatology 09/19/18 No, Referral Referring Cardiology 06/26/19 Eric Crooks MD [address] [place] [address] Primary Staff Physician Cardiology 02/11/20 Tomasz Garay MD [address] [place] [address] Cardiology 11/24/21 Brooks Soto MD [address] [facility] [address] [place] [address] Gastroenterology 02/02/22 Brooks Soto MD [address] [address] Gastroenterology 02/02/22 Hung Emerson MD [address] [place] [address] Pulmonary and Critical Care Medicine 02/02/22 Arc Cutter Relationship Specialty Start Date End Date Vargas Mujica PA [address] [place] [address] PCP - General Internal Medicine 09/17/18 Joshua Camacho (Hist) [address] [facility] [place], [place] [id number] Specialty Molecular Technologist Cardiology 09/19/18 Edith Taylor MD [address] [place], [place] 9173495 Specialty Molecular Technologist Gastroenterology 09/19/18 Bonita Naqvi [address] [facility] [place] [address] Specialty Molecular Technologist Rheumatology 09/19/18 No, Referral Referring Cardiology 06/26/19 Eric Crooks MD [address] [place], [place] 1706695 Primary Staff Physician Cardiology 02/11/20 Tomasz Garay MD [address] [facility] [place] [address] Cardiology 11/24/21 Brooks Soto MD [address] [facility] [address] [place], [place] [id number] Gastroenterology 02/02/22 Brooks Soto MD [address] [address] Gastroenterology 02/02/22 Hung Emerson MD [address] [place] [address] Pulmonary and Critical Care Medicine 02/02/22 Arc Cutter Relationship Specialty Start Date End Date Vargas Mujica PA [address] [facility] [place] [address] PCP - General Internal Medicine 09/17/18 Joshua Camacho (Hist) [address] [place], [place] [id number] Specialty Molecular Technologist Cardiology 09/19/18 Edith Taylor MD [address] [place], [place] [id number] Specialty Molecular Technologist Gastroenterology 09/19/18 Bonita Navqi [address] [place] [address] Specialty Molecular Technologist Rheumatology 09/19/18 No, Referral Referring Cardiology 06/26/19 Eric Crooks MD [address] [place] [address] Primary Staff Physician Cardiology 02/11/20 Tomasz Garay MD [address] [place] [address] Cardiology 11/24/21 Brooks Soto MD [address] [facility] 140 [place] [address] Gastroenterology 02/02/22 Brooks Soto MD 1 [facility] [address] [place] [address] Gastroenterology 02/02/22 Hung Emerson MD [address] [place] [address] Pulmonary and Critical Care Medicine 02/02/22 Arc Cutter Relationship Specialty Start Date End Date Vargas Mujica PA [address] [place] [address] PCP - General Internal Medicine 09/17/18 Joshua Camacho (Hist) [address] [place] [address] Specialty Molecular Technologist Cardiology 09/19/18 Edith Taylor MD [address] [place], [place] 2459795 Specialty Molecular Technologist Gastroenterology 09/19/18 Bonita Naqvi [address] [place] [address] Specialty Molecular Technologist Rheumatology 09/19/18 No, Referral Referring Cardiology 06/26/19 Eric Crooks MD [address] [place] [address] Primary Staff Physician Cardiology 02/11/20 Tomasz Garay MD [address] [place], [place] 512411 Cardiology 11/24/21 Brooks Soto MD 4302 [facility] [address] [place] [address] Gastroenterology 02/02/22 Brooks Soto MD 1 [facility] [address] [place] [address] Gastroenterology 02/02/22 Hung Emerson MD [address] [place] [address] Pulmonary and Critical Care Medicine 02/02/22 Arc Cutter Relationship Specialty Start Date End Date Vargas Mujica PA [address] [place] [address] PCP - General Internal Medicine 09/17/18 Joshua Camacho (Hist) [address] [place] [place], [place] 096931 (Fax) Specialty Molecular Technologist Cardiology 09/19/18 Edith Taylor MD [address] [place], [place] 7411995 Specialty Molecular Technologist Gastroenterology 09/19/18 Bonita Naqvi [address] [place], [place] [address]3901 Specialty Molecular Technologist Rheumatology 09/19/18 No, Referral Referring Cardiology 06/26/19 Eric Crooks MD [address] [place] [address] Primary Staff Physician Cardiology 02/11/20 Tomasz Garay MD [address] [place], [place] 33702691 Cardiology 11/24/21 Brooks Soto MD 4302 [facility] [address] [place] [address] Gastroenterology 02/02/22 Brooks Soto MD 1 [facility] [address] [place] [address] Gastroenterology 02/02/22 Hung Emerson MD [address] [place] [address] Pulmonary and Critical Care Medicine 02/02/22 Arc Cutter Relationship Specialty Start Date End Date Vargas Mujica PA [address] [place] [address] PCP - General Internal Medicine 09/17/18 Joshua Camacho (Hist) [address] [place], [place] [phone] (Fax) Specialty Molecular Technologist Cardiology 09/19/18 Edith Taylor MD [address] [facility] [address] Specialty Molecular Technologist Gastroenterology 09/19/18 Bonita Naqvi [address] [place], [place] 825571 Specialty Molecular Technologist Rheumatology 09/19/18 No, Referral Referring Cardiology 06/26/19 Eric Crooks MD [address] [place] [address] Primary Staff Physician Cardiology 02/11/20 Tomasz Garay MD [address] [place], [place] [id number] Cardiology 11/24/21 Brooks Soto MD 4302 [facility] [address] [place] [address] Gastroenterology 02/02/22 Brooks Soto MD 1 [facility] [address] [place] [address] Gastroenterology 02/02/22 Hung Emerson MD [address] [place] [address] Pulmonary and Critical Care Medicine 02/02/22 Arc Cutter Relationship Specialty Start Date End Date Vargas Mujica PA [address] [place] [address] PCP - General Internal Medicine 09/17/18 Joshua Camacho (Hist) [address] [place], [place] [id number] Specialty Molecular Technologist Cardiology 09/19/18 Edith Taylor MD [address] [place] [address] Specialty Molecular Technologist Gastroenterology 09/19/18 Bonita Naqvi [address] [place] [address] Specialty Molecular Technologist Rheumatology 09/19/18 No, Referral Referring Cardiology 06/26/19 Eric Crooks MD [address] [place], [place] 2365495 Primary Staff Physician Cardiology 02/11/20 Tomasz Garay MD [address] [place] [address] Cardiology 11/24/21 Brooks Soto MD 4302 [facility] 140 [place] [address] Gastroenterology 02/02/22 Brooks Soto MD 1 [facility] [address] [place] [address] Gastroenterology 02/02/22 Hung Emerson MD [address] [place] [address] Pulmonary and Critical Care Medicine 02/02/22 Arc Cutter Relationship Specialty Start Date End Date Vargas Mujica, JUNE [address] [place] [address] PCP - General Internal Medicine 09/17/18 Joshua Camacho (Hist) [address] [place], [place] 251651 Specialty Molecular Technologist Cardiology 09/19/18 Edith Taylor MD [address] [place] [address] Specialty Molecular Technologist Gastroenterology 09/19/18 Bonita Naqvi L [address] [place] [address] Specialty Molecular Technologist Rheumatology 09/19/18 No, Referral Referring Cardiology 06/26/19 Eric Crooks MD [address] [place] [address] Primary Staff Physician Cardiology 02/11/20 Tomasz Garay MD [address] [place], [place] 19879691 Cardiology 11/24/21 Brooks Soto MD 4302 [facility] [address] [place] [address] Gastroenterology 02/02/22 Brooks Soto MD 1 [facility] [address] [place] [address] Gastroenterology 02/02/22 Hung Emerson MD [address] [place] [address] Pulmonary and Critical Care Medicine 02/02/22 Arc Cutter Relationship Specialty Start Date End Date Vargas Mujica, PA 2021 S [facility] [place] [address] PCP - General Internal Medicine 09/17/18 Joshua Camacho (Hist) [address] [place], [place] [id number] Specialty Molecular Technologist Cardiology 09/19/18 Edith Taylor MD [address] [place] [address] Specialty Molecular Technologist Gastroenterology 09/19/18 Bonita Naqvi 3727 [facility] [place] [id number] Specialty Molecular Technologist Rheumatology 09/19/18 No, Referral Referring Cardiology 06/26/19 Eric lozada MD [address] [place] [address] Primary Staff Physician Cardiology 02/11/20 Tomasz Garay MD [address] [place], [place] [id number] Cardiology 11/24/21 Brooks Soto MD [address] [place] [address] Gastroenterology 02/02/22 Brooks Soto MD 1 [facility] [address] [place] [address] Gastroenterology 02/02/22 Hung Emerson MD [address] [place] [address] Pulmonary and Critical Care Medicine 02/02/22 Arc Cutter Relationship Specialty Start Date End Date Vargas Mujica, JUNE 2021 [address] [facility] [place] [address] PCP - General Internal Medicine 09/17/18 Joshua Camacho (Hist) [address] [place], [place] [id number] Specialty Molecular Technologist Cardiology 09/19/18 Edith Taylor MD [address] [place] [address] Specialty Molecular Technologist Gastroenterology 09/19/18 Bonita Naqvi [address] [facility] [place] [address] Specialty Molecular Technologist Rheumatology 09/19/18 No, Referral Referring Cardiology 06/26/19 Eric Crooks MD [address] [place] [address] Primary Staff Physician Cardiology 02/11/20 Tomasz Garay MD [address] [place], [place] [id number] Cardiology 11/24/21 Brooks Soto MD [address] [place], [place] [address] Gastroenterology 02/02/22 Brooks Soto MD 1 [facility] [address] [place] [address] Gastroenterology 02/02/22 Hung Emerson MD [address] [place] [address] Pulmonary and Critical Care Medicine 02/02/22 Arc Cutter Relationship Specialty Start Date End Date Vargas Mujica PA [address] [facility] [place] [place] [id number] PCP - General Internal Medicine 09/17/18 Joshua Camacho (Hist) [address] [facility] [place], [place] [id number] Specialty Molecular Technologist Cardiology 09/19/18 Edith Taylor MD [address] [place], [place] 7386295 Specialty Molecular Technologist Gastroenterology 09/19/18 Bonita Naqvi [address] [facility] [place] [address] Specialty Molecular Technologist Rheumatology 09/19/18 No, Referral Referring Cardiology 06/26/19 Eric Crooks MD [address] [place] [address] Primary Staff Physician Cardiology 02/11/20 Tomasz Garay MD [address] [place], [place] [id number] Cardiology 11/24/21 Brooks Soto MD [address] [place], [place] [address] Gastroenterology 02/02/[address] [facility] [address] [place], [place] [id number] Gastroenterology 02/02/22 Hung Emerson MD [address] [place] [address] Pulmonary and Critical Care Medicine 02/02/22 Arc Cutter Relationship Specialty Start Date End Date Vargas Mujica, JUNE [address] [place] [address] PCP - General Internal Medicine 09/17/18 Joshua Camacho (Hist) [address] [place] [address] Specialty Molecular Technologist Cardiology 09/19/18 Edith Taylor MD [address] [place] [address] Specialty Molecular Technologist Gastroenterology 09/19/18 Bonita Naqvi [address] [place] [address] Specialty Molecular Technologist Rheumatology 09/19/18 No, Referral Referring Cardiology 06/26/19 Eric Crooks MD [address] [place] [address] Primary Staff Physician Cardiology 02/11/20 Tomasz Garay MD [address] [place] [address] Cardiology 11/24/21 Brooks Soto MD 4302 [facility] 140 [place], [place] [id number] Gastroenterology 02/02/22 [address] [facility] [address] [place], [place] [id number] Gastroenterology 02/02/22 Hung Emerson MD [address] [place] [address] Pulmonary and Critical Care Medicine 02/02/22 Arc Cutter Relationship Specialty Start Date End Date Vargas Mujica, JUNE [address] [place] [address] PCP - General Internal Medicine 09/17/18 Joshua Camacho (Hist) [address] [facility] [place] [place] [id number] Specialty Molecular Technologist Cardiology 09/19/18 Edith Taylor MD [address] [place], [place] 8340695 Specialty Molecular Technologist Gastroenterology 09/19/18 Bonita Naqvi [address] [place] [address] Specialty Molecular Technologist Rheumatology 09/19/18 No, Referral Referring Cardiology 06/26/19 Eric Crooks MD [address] [place], [place] 4361395 Primary Staff Physician Cardiology 02/11/20 Tomasz Garay MD [address] [facility] [place] [place] [id number] Cardiology 11/24/21 Brooks Soto MD [address] [place] [address] Gastroenterology 02/02/22 Brooks Soto MD 1 [facility] [address] [place] [address] Gastroenterology 02/02/22 Hung Emerson MD [address] [place] [address] Pulmonary and Critical Care Medicine 02/02/22 Arc Cutter Relationship Specialty Start Date End Date Vargas Mujica PA [address] [place] [address] PCP - General Internal Medicine 09/17/18 Joshua Camacho (Hist) [address] [place], [place] [id number] Specialty Molecular Technologist Cardiology 09/19/18 Edith Taylor MD [address] [place], [place] 6237295 Specialty Molecular Technologist Gastroenterology 09/19/18 Bonita Naqvi [address] [place] [address] Specialty Molecular Technologist Rheumatology 09/19/18 No, Referral Referring Cardiology 06/26/19 Eric Crooks MD [address] [place], [place] 6575095 Primary Staff Physician Cardiology 02/11/20 Tomasz Garay MD [address] [place] [address] Cardiology 11/24/21 Brooks Soto MD 4302 [facility] [address] [place] [address] Gastroenterology 02/02/22 Brooks Soto MD 1 [facility] [address] [place] [address] Gastroenterology 02/02/22 Hung Emerson MD [address] [place] [address] Pulmonary and Critical Care Medicine 02/02/22 Arc Cutter Relationship Specialty Start Date End Date Vargas Mujica PA [address] [place], [place] [id number] PCP - General Internal Medicine 09/17/18 Joshua Camacho (Hist) [address] [facility] [place], [place] [id number] Specialty Molecular Technologist Cardiology 09/19/18 Edith Taylor MD [address] [place], [place] 1370795 Specialty Molecular Technologist Gastroenterology 09/19/18 Bonita Naqvi [address] [place] [address] Specialty Molecular Technologist Rheumatology 09/19/18 No, Referral Referring Cardiology 06/26/19 Eric Crooks MD [address] [place], [place] 5172595 Primary Staff Physician Cardiology 02/11/20 Tomasz Garay MD [address] [place] [address] Cardiology 11/24/21 Brooks Soto MD 4302 [facility] [address] [place] [address] Gastroenterology 02/02/22 Brooks Soto MD 1 [facility] [address] [place] [address] Gastroenterology 02/02/22 Hung Emerson MD [address] [place] [address] Pulmonary and Critical Care Medicine 02/02/22 Arc Cutter Relationship Specialty Start Date End Date Vargas Mujica PA [address] [place] [address] PCP - General Internal Medicine 09/17/18 Joshua Camacho (Hist) [address] [facility] [place] [place] [id number] Specialty Molecular Technologist Cardiology 09/19/18 Edith Taylor MD [address] [place] [address] Specialty Molecular Technologist Gastroenterology 09/19/18 Bonita Naqvi [address] [place] [place], [place] 513801 Specialty Molecular Technologist Rheumatology 09/19/18 No, Referral Referring Cardiology 06/26/19 Eric Crooks MD [address] [place] [address] Primary Staff Physician Cardiology 02/11/20 Tomasz Garay MD [address] [facility] [place] [place] [id number] Cardiology 11/24/21 Brooks Soto MD 4302 [facility] [address] [place] [address] Gastroenterology 02/02/22 Brooks Soto MD 1 [facility] [address] [place] [address] Gastroenterology 02/02/22 Hung Emerson MD [address] [place] [address] Pulmonary and Critical Care Medicine 02/02/22 Arc Cutter Relationship Specialty Start Date End Date Vargas Mujica PA [address] [place] [address] PCP - General Internal Medicine 09/17/18 Joshua Camacho (Hist) [address] [facility] [place] [id number] Specialty Molecular Technologist Cardiology 09/19/18 Edith Taylor MD [address] [place] [address] Specialty Molecular Technologist Gastroenterology 09/19/18 Bonita Naqvi [address] [place], [place] 63440691 Specialty Molecular Technologist Rheumatology 09/19/18 No, Referral Referring Cardiology 06/26/19 Eric Crooks MD [address] [place] [address] Primary Staff Physician Cardiology 02/11/20 Tomasz Garay MD [address] [place], [place] [id number] Cardiology 11/24/21 Brooks Soto MD 4302 [facility] 140 [place], [place] [id number] Gastroenterology 02/02/22 Brooks Soto MD 1 [facility] [address] [place] [address] Gastroenterology 02/02/22 Hung Emerson MD [address] [place] [address] Pulmonary and Critical Care Medicine 02/02/22 Arc Cutter Relationship Specialty Start Date End Date Vargas Mujica, JUNE [address] [place] [address] PCP - General Internal Medicine 09/17/18 Joshua Camacho (Hist) [address] [place], [place] [id number] Specialty Molecular Technologist Cardiology 09/19/18 Edith Taylor MD [address] [place] [address] Specialty Molecular Technologist Gastroenterology 09/19/18 Bonita Naqvi [address] [place] [address] Specialty Molecular Technologist Rheumatology 09/19/18 No, Referral Referring Cardiology 06/26/19 Eric Crooks MD [address] [place], [place] 1310795 Primary Staff Physician Cardiology 02/11/20 Tomasz Garay MD [address] [place] [address] Cardiology 11/24/21 Brooks Soto MD 4302 [facility] 140 [place] [address] Gastroenterology 02/02/22 Brooks Soto MD 1 [facility] [address] [place] [address] Gastroenterology 02/02/22 Hung Emerson MD [address] [place] [address] Pulmonary and Critical Care Medicine 02/02/22 Arc Cutter Relationship Specialty Start Date End Date Vargas Mujica PA 2021 [facility] [place] [place] [id number] PCP - General Internal Medicine 09/17/18 Joshua Camacho (Hist) [address] [facility] [place], [place] [id number] Specialty Molecular Technologist Cardiology 09/19/18 Edith Taylor MD [address] [place] [address] Specialty Molecular Technologist Gastroenterology 09/19/18 Bonita Naqvi [address] [place] [address] Specialty Molecular Technologist Rheumatology 09/19/18 No, Referral Referring Cardiology 06/26/19 Eric Crooks MD [address] [place], [place] 2607195 Primary Staff Physician Cardiology 02/11/20 Tomasz Garay MD [address] [place] [address] Cardiology 11/24/21 Brooks Soto MD [address] [place] [address] Gastroenterology 02/02/22 Brooks Soto MD 1 [facility] [address] [place] [address] Gastroenterology 02/02/22 Hung Emerson MD [address] [place] [address] Pulmonary and Critical Care Medicine 02/02/22 Arc Cutter Relationship Specialty Start Date End Date Vargas Mujica, JUNE [address] [place] [address] PCP - General Internal Medicine 09/17/18 Joshua Camacho (Hist) [address] [place] [address] Specialty Molecular Technologist Cardiology 09/19/18 Edith Taylor MD [address] [place] [address] Specialty Molecular Technologist Gastroenterology 09/19/18 Bonita Naqvi [address] [place] [address] Specialty Molecular Technologist Rheumatology 09/19/18 No, Referral Referring Cardiology 06/26/19 Eric Crooks MD [address] [place] [address] Primary Staff Physician Cardiology 02/11/20 Tomasz Garay MD [address] [place], [place] [id number] Cardiology 11/24/21 Brooks Soto MD 4302 [facility] [address] [place] [address] Gastroenterology 02/02/22 Brooks Soto MD 1 [facility] [address] [place] [address] Gastroenterology 02/02/22 Hung Emerson MD [address] [place] [address] Pulmonary and Critical Care Medicine 02/02/22 Arc Cutter Relationship Specialty Start Date End Date Vargas Mujica, PA 2021 [address] [facility] [place] [id number] PCP - General Internal Medicine 09/17/18 Joshua Camacho (Hist) [address] [place], [place] [id number] Specialty Molecular Technologist Cardiology 09/19/18 Edith Taylor MD [address] [place] [address] Specialty Molecular Technologist Gastroenterology 09/19/18 Bonita Naqvi [address] [place] [address] Specialty Molecular Technologist Rheumatology 09/19/18 No, Referral Referring Cardiology 06/26/19 Eric Crooks MD [address] [place] [address] Primary Staff Physician Cardiology 02/11/20 Tomasz Garay MD [address] [place], [place] [id number] Cardiology 11/24/21 Brooks Soto MD [address] [place], [place] [id number] Gastroenterology 02/02/22 Brooks Soto MD 1 [facility] [address] [address] [place] [address] Gastroenterology 02/02/22 Hung Emerson MD [address] [place] [address] Pulmonary and Critical Care Medicine 02/02/22 Arc Cutter Relationship Specialty Start Date End Date Vargas Mujica PA [address] [facility] [place], [place] [id number] PCP - General Internal Medicine 09/17/18 Joshua Camacho [address] [facility] [place] [place] [id number] Specialty Molecular Technologist Cardiology 09/19/18 Edith Taylor MD [address] [place] [address] Specialty Molecular Technologist Gastroenterology 09/19/18 Bonita Naqvi [address] [facility] [place] [address] Specialty Molecular Technologist Rheumatology 09/19/18 No, Referral Referring Cardiology 06/26/19 Eric Crooks MD [address] [place] [address] Primary Staff Physician Cardiology 02/11/20 Tomasz Garay MD [address] [facility] [place] [address] Cardiology 11/24/21 Brooks Soto MD [address] [place] [address] Gastroenterology 02/02/22 Brooks Soto MD [address] [address] [place] [address] Gastroenterology 02/02/22 Hung Emerson MD [address] [place] [address] Pulmonary and Critical Care Medicine 02/02/22 Arc Cutter Relationship Specialty Start Date End Date Vargas Mujica PA [address] [place] [address] PCP - General Internal Medicine 09/17/18 Joshua Cmaacho [address] [place], [place] [id number] Specialty Molecular Technologist Cardiology 09/19/18 Edith Taylor MD [address] [place], [place] [id number] Specialty Molecular Technologist Gastroenterology 09/19/18 Bonita Naqvi [address] [place] [address] Specialty Molecular Technologist Rheumatology 09/19/18 No, Referral Referring Cardiology 06/26/19 Eric Crooks MD [address] [place] [address] Primary Staff Physician Cardiology 02/11/20 Tomasz Garay MD [address] [place] [address] Cardiology 11/24/21 Brooks Soto MD [address] [facility] 140 [place], [place] [id number] Gastroenterology 02/02/[address] [facility] [address] [place] [address] Gastroenterology 02/02/22 Hung Emerson MD [address] [place] [address] Pulmonary and Critical Care Medicine 02/02/22 Arc Cutter Relationship Specialty Start Date End Date Vargas Mujica PA [address] [place] [address] PCP - General Internal Medicine 09/17/18 Joshua Camacho [address] [place], [place] [address]471 Specialty Molecular Technologist Cardiology 09/19/18 Edith Taylor MD [address] [place], [place] 388[address]95 Specialty Molecular Technologist Gastroenterology 09/19/18 Bonita Naqvi [address] [facility] [place] 540[address] Specialty Molecular Technologist Rheumatology 09/19/18 No, Referral Referring Cardiology 06/26/19 Eric Crooks MD [address] [place], [place] [id number] Primary Staff Physician Cardiology 02/11/20 Tomasz Garay MD [address] [place] [address] Cardiology 11/24/21 Brooks Soto MD [address] [place] [address] Gastroenterology 02/02/22 Brooks Soto MD [address] [address] Gastroenterology 02/02/22 Hung Emerson MD [address] [place] [address] Pulmonary and Critical Care Medicine 02/02/22 Arc Cutter Relationship Specialty Start Date End Date Vargas Mujica PA [address] [place] [address] PCP - General Internal Medicine 09/17/18 Joshua Camacho [address] [place] [address] Specialty Molecular Technologist Cardiology 09/19/18 Edith Taylor MD [address] [place], [place] [id number] Specialty Molecular Technologist Gastroenterology 09/19/18 Bonita Naqvi [address] [place] [address] Specialty Molecular Technologist Rheumatology 09/19/18 No, Referral Referring Cardiology 06/26/19 Eric Crooks MD [address] [place] [address] Primary Staff Physician Cardiology 02/11/20 Tomasz Garay MD [address] [place], [place] 542501 Cardiology 11/24/21 Brooks Soto MD [address] [facility] [address] [place] [address] Gastroenterology 02/02/22 Brooks Soto MD 1 [facility] [address] [place] [address] Gastroenterology 02/02/22 Hung Emerson MD [address] [place] [address] Pulmonary and Critical Care Medicine 02/02/22 Team [...] Dr. Aftab Sutton MD Emergency Provider Active Arc Cutter Relationship Specialty Start Date End Date Vargas Mujica PA 2021 [facility] [place] [address] PCP - General Internal Medicine 09/17/18 Joshua Camacho [address] [facility] [place] [id number] Specialty Molecular Technologist Cardiology 09/19/18 Edith Taylor MD [address] [place], [place] 378[address]95 Specialty Molecular Technologist Gastroenterology 09/19/18 Bonita Naqvi [address] [facility] [place] [address] Specialty Molecular Technologist Rheumatology 09/19/18 No, Referral Referring Cardiology 06/26/19 Eric Crooks MD [address] [place], [place] 495[address] Primary Staff Physician Cardiology 02/11/20 Tomasz Garay MD [address] [place] [address] Cardiology 11/24/21 Brooks Soto MD [address] [facility] [address] [place] [address] Gastroenterology 02/02/22 Brooks Soto MD 1 [facility] [address] [place] [address] Gastroenterology 02/02/22 Hung Emerson MD [address] [place] [address] Pulmonary and Critical Care Medicine 02/02/22 Team Status: Inactive Member Role Status Dates JUNE Graham Primary Care Provider Active Dr. Aftab Sutton MD Attending Provider, Emergency Pr ovider Active Team Status: Inactive Member Role Status Dates JUNE Graham Primary Care Provider Active Dr. Garry Conn , DO Emergency Provider Active Arc Cutter Relationship Specialty Start Date End Date Vargas Mujica PA 2021 [facility] [address] PCP - General Internal Medicine 09/17/18 Joshua Camacho [address] [place], [place] [id number] Specialty Molecular Technologist Cardiology 09/19/18 Edith Taylor MD [address] [place] [address] Specialty Molecular Technologist Gastroenterology 09/19/18 Bonita Naqvi [address] [place] [address] Specialty Molecular Technologist Rheumatology 09/19/18 No, Referral Referring Cardiology 06/26/19 Eric Crooks MD [address] [place], [place] 9003795 Primary Staff Physician Cardiology 02/11/20 Tomasz Garay MD [address] [place], [place] 380481 Cardiology 11/24/21 Brooks Soto MD [address] [facility] 140 [place], [place] [id number] Gastroenterology 02/02/22 Brooks Soto MD 1 [facility] [address] [place] [address] Gastroenterology 02/02/22 Hung Emerson MD [address] [place] [address] Pulmonary and Critical Care Medicine 02/02/22 Arc Cutter Relationship Specialty Start Date End Date Vargas Mujica PA-C [address] [place], [place] [id number] PCP - General 04/30/19 Arc Cutter Relationship Specialty Start Date End Date Vargas Mujica PA [address] [place], [place] [id number] PCP - General Internal Medicine 09/17/18 Joshua Camacho [address] [facility] [place] [place] [address] Specialty Molecular Technologist Cardiology 09/19/18 Edith Taylor MD [address] [place], [place] 9521695 Specialty Molecular Technologist Gastroenterology 09/19/18 Bonita Naqvi [address] [place], [place] 518731 Specialty Molecular Technologist Rheumatology 09/19/18 No, Referral Referring Cardiology 06/26/19 Eric Crooks MD [address] [place] [address] Primary Staff Physician Cardiology 02/11/20 Tomasz Garay MD [address] [place] [address] Cardiology 11/24/21 Brooks Soto MD 4302 [facility] 140 [place] [address] Gastroenterology 02/02/22 Brooks Soto MD [address] [address] Gastroenterology 02/02/22 Hung Emerson MD [address] [place] [address] Pulmonary and Critical Care Medicine 02/02/22 Arc Cutter Relationship Specialty Start Date End Date Vargas Mujica PA-C [address] [place] [address] PCP - General 04/30/19 Vargas Mujica PA-C [address] [place] [address] PCP - MMO ACO PCP 02/25/23 Team Status: Inactive Member Role Status Dates JUNE Graham Primary Care Provider Active Dr. Anam Garcia MD Attending Provider, Emergency Provi scott Active Arc Cutter Relationship Specialty Start Date End Date Vargas Mujica PA [address] [place] [address] PCP - General Internal Medicine 09/17/18 Joshua Camacho [address] [place], [place] 004681 Specialty Molecular Technologist Cardiology 09/19/18 Edith Taylor MD [address] [facility] [place] [id number] Specialty Molecular Technologist Gastroenterology 09/19/18 Bonita Naqvi [address] [place], [place] 77575691 Specialty Molecular Technologist Rheumatology 09/19/18 No, Referral Referring Cardiology 06/26/19 Eric Crooks MD [address] [place], [place] 8827495 Primary Staff Physician Cardiology 02/11/20 Tomasz Garay MD [address] [facility] [place], [place] [id number] Cardiology 11/24/21 Brooks Soto MD [address] [facility] [address] [place] [address] Gastroenterology 02/02/22 Brooks Soto MD 1 [facility] [address] [place] [address] Gastroenterology 02/02/22 Hung Emerson MD [address] [place] [address] Pulmonary and Critical Care Medicine 02/02/22 Arc Cutter Relationship Specialty Start Date End Date Vargas Mujica PA [address] [place] [address] PCP - General Internal Medicine 09/17/18 Joshua Camacho [address] [place], [place] 491901 Specialty Molecular Technologist Cardiology 09/19/18 Edith Taylor MD [address] [place] [address] Specialty Molecular Technologist Gastroenterology 09/19/18 Bonita Naqvi [address] [facility] [place], [place] 946961 Specialty Molecular Technologist Rheumatology 09/19/18 No, Referral Referring Cardiology 06/26/19 Eric Crooks MD [address] [place] [address] Primary Staff Physician Cardiology 02/11/20 Tomasz Garay MD [address] [place] [address] Cardiology 11/24/21 Brooks Soto MD 4302 [facility] 140 [place] [address] Gastroenterology 02/02/22 Brooks Soto MD 1 [facility] [address] [place] [address] Gastroenterology 02/02/22 Hung Emerson MD [address] [place] [address] Pulmonary and Critical Care Medicine 02/02/22 Arc Cutter Relationship Specialty Start Date End Date Vargas Mujica PA [address] [place] [address] PCP - General Internal Medicine 09/17/18 Joshua Camacho [address] [place], [place] 37623[address] Specialty Molecular Technologist Cardiology 09/19/18 Edith Taylor MD [address] [place] [address] Specialty Molecular Technologist Gastroenterology 09/19/18 Bonita Naqvi [address] [place] [address] Specialty Molecular Technologist Rheumatology 09/19/18 No, Referral Referring Cardiology 06/26/19 Eric Crooks MD [address] [facility] [address] Primary Staff Physician Cardiology 02/11/20 Tomasz Garay MD [address] [place] [address] Cardiology 11/24/21 Brooks Soto MD 4302 [facility] 140 [place] [address] Gastroenterology 02/02/22 Brooks Soto MD [address] [address] Gastroenterology 02/02/22 Hung Emerson MD [address] [place] [address] Pulmonary and Critical Care Medicine 02/02/22 Arc Cutter Relationship Specialty Start Date End Date Vargas Mujica PA [address] [place] [address] PCP - General Internal Medicine 09/17/18 Joshua Camacho [address] [facility] [place] [place] 939451 Specialty Molecular Technologist Cardiology 09/19/18 Edith Taylor MD [address] [place] [address] Specialty Molecular Technologist Gastroenterology 09/19/18 Bonita Naqvi [address] [place], [place] 905451 Specialty Molecular Technologist Rheumatology 09/19/18 No, Referral Referring Cardiology 06/26/19 Eric Crooks MD [address] [place] [address] Primary Staff Physician Cardiology 02/11/20 Tomasz Garay MD [address] [place] [address] Cardiology 11/24/21 Brooks Soto MD 4302 [facility] [address] [place] [address] Gastroenterology 02/02/22 Brooks Soto MD 1 [facility] anum [address] [place] [address] Gastroenterology 02/02/22 Hung Emerson MD [address] [place] [address] Pulmonary and Critical Care Medicine 02/02/22 Arc Cutter Relationship Specialty Start Date End Date Vargas Mujica PA [address] [place] [address] PCP - General Internal Medicine 09/17/18 Joshua Camacho [address] [place] [address] Specialty Molecular Technologist Cardiology 09/19/18 Edith Taylor MD [address] [place], [place] 7578595 Specialty Molecular Technologist Gastroenterology 09/19/18 Bonita Naqvi [address] [place], [place] 301811 Specialty Molecular Technologist Rheumatology 09/19/18 No, Referral Referring Cardiology 06/26/19 Eric Crooks MD [address] [place] [address] Primary Staff Physician Cardiology 02/11/20 Tomasz Garay MD [address] [place], [place] [id number] Cardiology 11/24/21 Brooks Soto MD [address] [facility] 140 [place], [place] 15[address] Gastroenterology 02/02/22 Brooks Soto MD 1 [facility] anum [address] [place] [address] Gastroenterology 02/02/22 Hung Emerson MD [address] [place] [address] Pulmonary and Critical Care Medicine 02/02/22 Arc Cutter Relationship Specialty Start Date End Date Vargas Mujica PA [address] [place] [address] PCP - General Internal Medicine 09/17/18 Joshua Camacho [address] [place], [place] 261381 Specialty Molecular Technologist Cardiology 09/19/18 Edith Taylor MD [address] [place] [address] Specialty Molecular Technologist Gastroenterology 09/19/18 Bonita Naqvi [address] [place] [address] Specialty Molecular Technologist Rheumatology 09/19/18 No, Referral Referring Cardiology 06/26/19 Eric Crooks MD [address] [place], [place] 7912495 Primary Staff Physician Cardiology 02/11/20 Tomasz Garay MD [address] [place] [address] Cardiology 11/24/21 Brooks Soto MD 4302 [facility] 140 [place], [place] [id number] Gastroenterology 02/02/22 Brooks Soto MD 1 [facility] [address] [place] [address] Gastroenterology 02/02/22 Hung Emerson MD [address] [place] [address] Pulmonary and Critical Care Medicine 02/02/22 Arc Cutter Relationship Specialty Start Date End Date Vargas Mujica PA [address] [place] [address] PCP - General Internal Medicine 09/17/18 Joshua Camacho [address] [facility] [place] [place] [address] Specialty Molecular Technologist Cardiology 09/19/18 Edith Taylor MD [address] [place] [address] Specialty Molecular Technologist Gastroenterology 09/19/18 Bonita Naqvi [address] [place], [place] 385931 Specialty Molecular Technologist Rheumatology 09/19/18 No, Referral Referring Cardiology 06/26/19 Eric Crooks MD [address] [place] [address] Primary Staff Physician Cardiology 02/11/20 Arc Cutter Relationship Specialty Start Date End Date Vargas Mujica PA [address] [place] [address] PCP - General Internal Medicine 09/17/18 Joshua Camacho [address] [place], [place] [id number] Specialty Molecular Technologist Cardiology 09/19/18 Edith Taylor MD [address] [place], [place] 6109395 Specialty Molecular Technologist Gastroenterology 09/19/18 Bonita Naqvi [address] [place] [address] Specialty Molecular Technologist Rheumatology 09/19/18 No, Referral Referring Cardiology 06/26/19 Eric Crooks MD [address] [place] [address] Primary Staff Physician Cardiology 02/11/20 Tomasz Garay MD [address] [facility] [place] [address] Cardiology 11/24/21 Brooks Soto MD [address] [address] Gastroenterology 02/02/22 Brooks Soto MD 1 [facility] [address] [place] [address] Gastroenterology 02/02/22 Hung Emerson MD [address] [place] [address] Pulmonary and Critical Care Medicine 02/02/22 Arc Cutter Relationship Specialty Start Date End Date Vargas Mujica PA [address] [place] [address] PCP - General Internal Medicine 09/17/18 Joshua Camacho [address] [place], [place] [id number] Specialty Molecular Technologist Cardiology 09/19/18 Edith Taylor MD [address] [place] [address] Specialty Molecular Technologist Gastroenterology 09/19/18 Bonita Naqvi [address] [place], [place] 151351 Specialty Molecular Technologist Rheumatology 09/19/18 No, Referral Referring Cardiology 06/26/19 Eric Crooks MD [address] [facility] [address] Primary Staff Physician Cardiology 02/11/20 Tomasz Garay MD [address] [place] [address] Cardiology 11/24/21 Brooks Soto MD 4302 [facility] [address] [place] [address] Gastroenterology 02/02/22 Brooks Soto MD 1 [facility] [address] [place] [address] Gastroenterology 02/02/22 Hung Emerson MD [address] [place] [address] Pulmonary and Critical Care Medicine 02/02/22 Arc Cutter Relationship Specialty Start Date End Date Vargas Mujica PA-C [address] [place] [address] PCP - General 04/30/19 Vargas Mujica PA-C [address] [place] [address] PCP - MMO ACO PCP 02/25/23 Arc Cutter Relationship Specialty Start Date End Date Vargas Mujica PA-C [address] [place] [address] PCP - General 04/30/19 Vargas Mujica PA-C [address] [place] [address] PCP - MMO ACO PCP 02/25/23 Arc Cutter Relationship Specialty Start Date End Date Vargas Mujica PA-C [address] [place] [address] PCP - General 04/30/19 Vargas Mujica PA-C [address] [place] [address] PCP - MMO ACO PCP 02/25/23 Arc Cutter Relationship Specialty Start Date End Date Vargas Mujica PA-C [address] [place] [address] PCP - General 04/30/19 Vargas Mujica PA-C [address] [place] [address] PCP - MMO ACO PCP 02/25/23 Arc Cutter Relationship Specialty Start Date End Date Vargas Mujica PA [address] [place] [address] PCP - General Internal Medicine 09/17/18 Joshua Camacho MD [address] [place] [address] Specialty Molecular Technologist Cardiology 09/19/18 Edith Taylor MD [address] [place], [place] 0116195 Specialty Molecular Technologist Gastroenterology 09/19/18 Bonita Naqvi [address] [place] [address] Specialty Molecular Technologist Rheumatology 09/19/18 No, Referral Referring Cardiology 06/26/19 Eric Crooks MD [address] [place], [place] 0428895 Primary Staff Physician Cardiology 02/11/20 Tomasz Garay MD [address] [place] [address] Cardiology 11/24/21 Brooks Soto MD [address] [facility] 140 [place] [address] Gastroenterology 02/02/22 [address] [facility] [address] [place] [address] Gastroenterology 02/02/22 Hung Emerson MD [address] [place] [address] Pulmonary and Critical Care Medicine 02/02/22 Arc Cutter Relationship Specialty Start Date End Date Vargas Mujica PA [address] [place] [address] PCP - General Internal Medicine 09/17/18 Joshua Camacho MD [address] [place] [address] Specialty Molecular Technologist Cardiology 09/19/18 Edith Taylor MD [address] [place], [place] 1114195 Specialty Molecular Technologist Gastroenterology 09/19/18 Bonita Naqvi [address] [place] [address] Specialty Molecular Technologist Rheumatology 09/19/18 No, Referral Referring Cardiology 06/26/19 Eric Crooks MD [address] [place], [place] 9840695 Primary Staff Physician Cardiology 02/11/20 Tomasz Garay MD [address] [place] [address] Cardiology 11/24/21 Brooks Soto MD [address] [facility] 140 [place] [address] Gastroenterology 02/02/22 Brooks Soto MD 1 [facility] [address] [place] [address] Gastroenterology 02/02/22 Hung Emerson MD [address] [place] [address] Pulmonary and Critical Care Medicine 02/02/22 Arc Cutter Relationship Specialty Start Date End Date Vargas Mujica PA 2020 [address] [facility] [place] [address] PCP - General Internal Medicine 09/17/18 Joshua Camacho MD [address] [place] [address] Specialty Molecular Technologist Cardiology 09/19/18 Edith Taylor MD [address] [place], [place] 15834[address] Specialty Molecular Technologist Gastroenterology 09/19/18 Bonita Naqvi [address] [place] [address] Specialty Molecular Technologist Rheumatology 09/19/18 No, Referral Referring Cardiology 06/26/19 Eric Crooks MD [address] [place], [place] [id number] Primary Staff Physician Cardiology 02/11/20 Tomasz Garay MD [address] [facility] [place], [place] 619361 Cardiology 11/24/21 Brooks Soto MD 4302 [facility] [address] [place] [address] Gastroenterology 02/02/22 Brooks Soto MD 1 [facility] anum [address] [place] [address] Gastroenterology 02/02/22 Hung Emerson MD [address] [place] [address] Pulmonary and Critical Care Medicine 02/02/22 Arc Cutter Relationship Specialty Start Date End Date Vargas Mujica PA [address] [place] [address] PCP - General Internal Medicine 09/17/18 Joshua Camacho MD [address] [place] [address] Specialty Molecular Technologist Cardiology 09/19/18 Edith Taylor MD [address] [place], [place] 8263495 Specialty Molecular Technologist Gastroenterology 09/19/18 Bonita Naqvi [address] [place], [place] 419351 Specialty Molecular Technologist Rheumatology 09/19/18 No, Referral Referring Cardiology 06/26/19 Eric Crooks MD [address] [place] [address] Primary Staff Physician Cardiology 02/11/20 Tomasz Garay MD [address] [place] [address] Cardiology 11/24/21 Brooks Soto MD [address] [place] [address] Gastroenterology 02/02/22 Brooks Soto MD 1 [facility] anum [address] [place], [place] [id number] Gastroenterology 02/02/22 Hung Emerson MD [address] [place], [place] [id number] Pulmonary and Critical Care Medicine 02/02/22 Arc Cutter Relationship Specialty Start Date End Date Vargas [...] BE BASED ON THE PRIMARY CLINICAL RECORDS. [facility] [employer] [facility]. provides no warranty or guarantee of the accuracy or completeness of information in this document.
[2025-06-14 08:12] LABS: Hematocrit 44.2 % (37-47); Hemoglobin 14.9 g/dL (12.0-15.0); Immature Granulocytes Count 0.020 X10^3/uL (0.0-0.0); Mean Corp Hgb Conc 33.7 g/dL (32-36); Mean Corpuscular Volume 85.3 fL (81-99); Mean Platelet Vol. 11.6 fl (6.2-12.0); NRBC Flagged by Analyzer 0 % (0-5); Platelet Count 184 K/mm3 (150-450); RBC Distribution Width CV 13.4 % (11.6-14.6); RBC Distribution Width SD 41.8 fl (35.1-43.9); Red Blood Count 5.18 M/mm3 (4.2-5.4); White Blood Count 7.7 K/mm3 (4.4-11.0)
[2025-06-14 09:22] LABS: AST(SGOT) 49 U/L (<=31); Alanine Aminotransfer ALT/SGPT 54 U/L (<=34); Albumin, Serum 3.9 g/dL (3.5-5.0); Alkaline Phosphatase 102 U/L (35-104); Anion Gap 11 (5-15); BUN 9 mg/dL (4-19); BUN/Creat Ratio 15.1 RATIO (10-20); Calcium,Total 9.2 mg/dL (7.6-11.0); Carbon Dioxide 24.0 mmol/L (21.0-32.0); Chloride 104 mmol/L (98-108); Cholesterol 194 mg/dL (<=200); Ferritin 171 ng/mL (22-378); Globulin 3.3 g/dL (2.2-4.2); Glucose 97 mg/dL (70-99); Low Density Lipoprotein Calc. 133 mg/dL; Potassium 4.2 mmol/L (3.3-5.1); Triglycerides 72 mg/dL; Very Low Density Lipoprotein 14 mg/dL (5-40); Vitamin B12 826 pg/mL (180-914); Vitamin D,25 Hydroxy 24.6 ng/mL (30-100); cholesterol:hdl ratio screen 4.03
[2025-06-14 09:59] LABS: Iron 83 ug/dL (50-170); Iron Binding Capacity,Total 269 ug/dL (250-450); Iron Binding Capacity,Unsat 186 ug/dL (228-428); Magnesium 2.0 mg/dL (1.5-2.2)
== END | disposition home or self-care (01) ==
PROVIDERS: PCP Physician Assistant Medical; Referring Provider Physician Assistant Medical; Visit Provider Physician Assistant Medical
DX: R73.02 Impaired glucose tolerance (oral) (principal); E06.3 Autoimmune thyroiditis; R79.89 Other specified abnormal findings of blood chemistry; Z98.84 Bariatric surgery status; E55.9 Vitamin D deficiency, unspecified
CPT/HCPCS: 36415; 80053; 80061; 82306; 82607; 82728; 83540; 83550; 83735; 84439; 84443; 85025

== ENCOUNTER 2025-06-15 18:45 | Emergency (ER) | payer OTHER, SELFPAY ==
[2025-06-15 18:46] VITALS: BP 156/101; PULSE 77; RESP 18; TEMP 36.9; O2SAT 99; BMI 54.1
--- OUTSIDE RECORDS SUMMARY | 2025-06-15 19:35 | XMS RPT_ITS | CCD ---
Author Organization [facility] Care Team Providers Care Yacht Rigger Name Role Phone EDITH MURRAY Admitting Unavailable EDITH MURRAY Attending Unavailable JOSHUA CAMACHO Referring Unavailable IMCA Primary Care Unavailable Redd, Aasef Unavailable Unavailable Guanako Vargas Unavailable Unavailable Guanako Vargas B Unavailable Unavailable Shikary, Abbas K Unavailable Unavailable Basali, Ayman H Unavailable Unavailable Zarrabi, Josselyn Unavailable Unavailable Guanako, Vargas Unavailable Unavailable Guanako Vargas B Unavailable Unavailable Redd, Aasef Unavailable Unavailable Zarrabi, Josselyn Unavailable Unavailable Shoals Vargas B Unavailable [phone] Unavailable Unavailable Unavailable Unavailable Vargas Wei Primary Care Provider Joshua Camacho (Hist) Unavailable Edith Taylor MD Unavailable [phone] Bonita Naqvi Unavailable No, Referral Unavailable Unavailable Eric Crooks MD Unavailable Tomasz Garay MD Unavailable Edith Taylor MD Unavailable Unavailable Brooks Soto MD Unavailable [phone] Brooks Soto MD Unavailable Hung Emerson MD Unavailable Vargas Wei Primary Care Provider Joshua Camacho (Hist) Unavailable O'Carrizales MD, Edith S Unavailable Radha Naqvima Suzi Unavailable No, Referral Unavailable Unavailable Eric Crooks MD Unavailable Tanisha COPELAND, Tomasz Davidson Unavailable Brooks Soto MD Unavailable [phone] Brooks Soto MD Unavailable Ki COPELAND, Hung Unavailable [place], Bonita L Unavailable Tanisha COPELAND, Tomasz Davidson Unavailable Unavailable Unavailable Vargas Wei Primary Care Provider [phone] Joshua Camacho (Hist) Unavailable Brandon COPELAND, Edith S Unavailable [phone] Donya, Bonita L Unavailable No, Referral Unavailable Unavailable Eric Crooks MD Unavailable Tanisha COPELAND, Tomasz Davidson Unavailable Brooks Soto MD Unavailable Brooks Soto MD Unavailable Ki COPELAND, Hung Unavailable Joshua Camacho Unavailable Guanako, . Vargas Browne Referring Unav ailable Guanako, Ms. Vargas Browne Primary Care Unav ailable Shoals, MsIglesia Browne Attending Unav ailable Osbaldo, Dr. Arcos Attending Unavailable Osbaldo, Dr. Arcos Referring Unavailable Shoals, Ms. Vargas Browne Primary Care Unav ailable Shoals, MsIglesia Browne Referring Unav ailable Guanako, Ms. Vargas Browne Primary Care Unav ailable Guanako, MsIglesia Browne Attending Unav ailable Grassick, MsIglesia Rios Attending Unavail able Grassick, MsIglesia Rios Referring Unavail able Guanako, Ms. Vargas Browne Primary Care Unav ailable Guanako, Ms. Vargas Hollie Attending Unav ailable Shoals, Ms. Vargas Browne Referring Unav ailable Shoals, Ms. Vargas Browne Primary Care Unav ailable Guanako, Ms. Vargas rBowne Referring Unav ailable Guanako, Ms. Vargas Browne Primary Care Unav ailable Guanako, Ms. Vargas Browne Attending Unav ailable Guanako, Ms. Vargas Browne Attending Unav ailable Shoals, Ms. Vargas Browne Referring Unav ailable Guanako, Ms. Vargas Browne Primary Care Unav ailable Guanako JUNE WATKINS Primary Care Provider JUNE Wei Referring Provider JUNE Emanuel Attending Provider Vargas Mujica PA-C B Primary Care Provider Guanako, . Vargas Browne Attending Unav ailable Shoals, Ms. Vargas Browne Primary Care Unav ailable GUANAKO VARGAS GAN Primary Care Physician Vargas Mujica PA-C Unavailable Vargas Wei Primary Care Provider Joshua Camacho Unavailable Brandon COPELAND, Edith Helton Unavailable Bonita Naqvi Unavailable Valeriy COPELAND, Eric Jules Unavailable Vargas Wei B Primary Care Provider Vargas Wei Primary Care Provider VARGAS MUJICA B Referring Unavailable GUANAKO VARGAS B Primary Care Unavailable GUANAKO, VARGAS B Primary Care Unavailable GUANAKO, VARGAS B Primary Care Unavailable Shoals PA-C, Vargas B Primary Care Provider Guanako HENRYC Vargas B Unavailable Joshua Camacho MD Unavailable [phone] JOHANNY MARMOLEJO E Attending Unavailable [facility] Primary Care Unavaila ble SELF Referring Unavailable [facility] Primary Care Unavaila omar LOUISE DEE DEE Attending Unavailable Guanako PA-C, Vargas B Primary Care Provider GUANAKO VARGAS B Attending Unavailable GUANAKO, VARGAS B Primary Care Unavailable GUANAKO, VARGAS B Attending Unavailable GUANAKO, VARGAS B Primary Care Unavailable GUANAKO, VARGAS B Attending Unavailable GUANAKO, VARGAS B Primary Care Unavailable Guanako PA, Vargas Attending Unavailabl e Guanako PA, Edelstein Primary Care Unavailabl e Shoals PA, Vargas Referring Unavailabl e Guanako PA, Edelstein Primary Care Unavailabl e Sanam Lindsay Attending Unavailable Guanako PA, [place] Primary Care Unavailabl Sanam Perez Attending Unavailable Guanako PA, [place] Primary Care Unavailabl e Sanam Lindsay Attending Unavailable Guanako PA, [facility] Care Unavailabl e Sanam Lindsay Attending Unavailable Guanako PA, [place] Primary Care Unavailabl e Shoals PA, Vargas Referring Unavailabl e [place], Lali Attending Unavailable Shoals PA, [facility] Care Unavailabl Sanam Perez Attending Unavailable Sho[place] PA, [place] Primary Care Unavailabl e [place] PA, Vargas Referring Unavailabl e Violetta, Camargo Attending Unavailable Guanako PA, [place] Primary Care Unavailabl e [place] PA, Vargas Referring Unavailabl e Violetta, Rafael Attending Unavailable Guanako PA, [place] Primary Care Unavailabl e Violetta, Rafael Attending Unavailable [place], Lali Referring Unavailable Guanako PA, [facility] Care Unavailabl e Violetta, Rafael Attending Unavailable JOHANNY MARMOLEJO Referring Unavailable JOHANNY MARMOLEJO Consulting Unavailable Shoals PA, Vargas Attending Unavailabl e [place] PA, [place] Primary Care Unavailabl e [place] PA, Vargas Referring Unavailabl e [place], Lali Attending Unavailable [place] PA, [place] Primary Care Unavailabl e [place], Lali Referring Unavailable Guanako PA, [facility] Care Unavailabl e Garry Conn Attending Unavailable Guanako PA, [facility] Care Unavailabl e Anam Garcia Attending Unavailable Guanako PA, [place] Attending Unavailabl e Guanako PA, [facility] Care Unavailabl e [place] PA, [place] Referring Unavailabl e Guanako PA, Vargas Attending Unavailabl e Guanako PA, [facility] Care Unavailabl e Guanako PA, [place] Referring Unavailabl e Guanako PA, [facility] Unavailabl e Jl June Referring Unavailable Jl June Attending Unavailable Guanako PA, [facility] Unavailabl e JOHANNY MARMOLEJO Referring Unavailable JOHANNY MARMOLEJO Attending Unavailable Allergies Allergy Classification Reported Allergen(s) Allergy Type Date of Onset Reaction(s) Facility Acetaminophen / HYDROcodone (1 source) Acetaminophen / HYDROcodone; Translations: [Vicodin TABS] Drug Allergy Rash, Itching [facility] Work Phone: Aminoketones (1 source) buPROPion; Translations: [Wellbutrin] Drug Allergy Rash [facility] Work Phone: Meclizine (1 source) Meclizine; Translations: [meclizine] Drug Allergy Other [facility] Work Phone: Nadolol (1 source) Nadolol; Translations: [nadolol] Drug Allergy Chest Pain [facility] Work Phone: Opioid Agonists (1 source) Morphine; Translations: [Morphine Sulfate SOLN] Drug Allergy [facility] Work Phone: Penicillin V (1 source) Penicillin V; Translations: [Penicillin V Potassium SOLR] Drug Allergy Hives [facility] Work Phone: Serotonin Reuptake Inhibitors (SSRIs) (1 source) Citalopram; Translations: [citalopram] Drug Allergy Other, Vomiting [facility] Work Phone: (20 sources) Acetaminophen / HYDROcodone; Translations: [HYDROCODONE-ACETAM INOPHEN] Drug Allergy 01-29-20 16 Hives, GI Upset, Itching, Rash [facility] Repository (20 sources) Morphine; Translations: [MORPHINE] Drug Allergy 08-24-20 16 Other: See Comments, Other [facility] Repository (20 sources) Penicillins; Translations: [PENICILLINS] Propensity to adverse reactions (disorder) 01-28-20 08 Hives [facility] Repository (20 sources) Acetaminophen / HYDROcodone; Translations: [Vicodin TABS] Drug Allergy Rash, Itching [facility] Work Phone: (20 sources) buPROPion; Translations: [Wellbutrin] Drug Allergy Rash [facility] (20 sources) Meclizine; Translations: [meclizine] Drug Allergy 06-02-20 21 Other: See Comments, Other [facility] Work Phone: (20 sources) Morphine; Translations: [Morphine Sulfate SOLN] Drug Allergy [facility] Work Phone: (20 sources) Penicillin V; Translations: [Penicillin V Potassium SOLR] Drug Allergy 02-09-20 23 Hives [facility] Work Phone: (20 sources) Citalopram; Translations: [citalopram] Drug Allergy 06-02-20 21 Vomiting, Other: See Comments, Other [facility] Work Phone: (20 sources) Nadolol; Translations: [nadolol] Drug Allergy 11-14-19 19 Chest Pain, Itching, Other [facility] Work Phone: (20 sources) buPROPion; Translations: [BUPROPION] Drug Allergy 06-02-20 21 Rash [facility] Work Phone: (20 sources) predniSONE; Translations: [predniSONE] Drug Allergy 09-22-19 23 Itching [facility] (4 sources) Cholecalciferol Drug Allergy 08-17-20 22 [facility] (4 sources) Ergocalciferol Drug Allergy 08-17-20 22 [facility] (5 sources) HYDROcodone; Translations: [hydrocodone bitartrate] Drug Allergy 08-17-20 22 Other [facility] (7 sources) Doxycycline; Translations: [Doxycycline Hyclate CAPS] Drug Allergy 06-07-20 24 [facility] Work Phone: (19 sources) buPROPion; Translations: [BUPROPION HCL] Drug Allergy 02-09-20 [facility] (1 source) Penicillin; Translations: [penicillin] Drug Allergy [facility] (3 sources) Penicillin; Translations: [PENICILLIN V] Drug Allergy 02-09-20 23 [place] [id number] Repository (2 sources) Doxycycline; Translations: [DOXYCYCLINE] Drug Allergy 06-07-20 24 [facility] Repository (1 source) buPROPion Drug Allergy 12-21-19 25 [facility] Repository (1 source) Cholecalciferol Drug Allergy 12-21-19 25 [facility] Repository (1 source) Ergocalciferol Drug Allergy 12-21-19 [facility] Repository Medications Current Medications Medication Drug Class(es) Dates Sig (Normalized) Sig (Original) [id number] 200 actuat albuterol 0.09 mg/actuat metered dose [...] Aggregation Inhibitor, Nonsteroidal Anti-inflammatory Drug Start: 06-28-2019 aspirin 81 mg chewable tablet Chew and swallow 1 tablet (81 mg) once daily. 09/29/2020 Active Start: 06-26-2019 End: 04-12-2022 take 1 tablet by mouth once daily aspirin, enteric coated (ADULT LOW DOSE ASPIRIN) 81 mg EC tablet Take 1 tablet by mouth once daily. 06/26/2019 04/12/2022 Discontinued Comment on above: Take 1 tablet by harper th once daily. benzonatate 100 mg oral capsule [...] aily. cyclobenzaprine hydrochloride 10 mg oral tablet (18 sources) Muscle Relaxant Start: 06-07-20 End: 07-11-20 [...] needed for muscle spasms. 0 08/31/2022 Active doxycycline monohydrate 100 mg oral tablet [...] End: 1 Levothyroxine Active 100 MCG PO SAMARAUWETHSA November 09, 2017 11:00pm does not take [...] aily. multivitamin-children's (Flintstones Complete, iron,) chewable tablet (8 sources) multivitamin-chi ldren's (Flintstones Complete, iron,) chewable tablet Chew and swallow 2 tablets once daily. Active multivitamin-chi ldren's [...] Pump Inhibitor Start: 07-26-2021 End: 11-06-2024 take 1 tablet by mouth once daily pantoprazole (ProtoNix) 40 mg EC tablet Indications: Gastroesophageal reflux disease, unspecified whether esophagitis present Take 1 tablet (40 mg) by mouth once daily. 90 tablet 3 11/06/2024 Active Start: 03-18-2021 Pantoprazole S odium 40 [...] on above: Take 2 tablets by mo [facility] once daily for 1 day, THEN 1 [...] once daily. Take 1 tablet by harper once daily. dexamethasone 6 mg oral tablet (4 sources) Corticosteroid Start: 021 End: take 1 tablet by mouth once daily Dexamethasone 6 MG Oral Tablet TAKE 1 TABLET DAILY. Quantity: 5 Refills: 0 Ordered: 12-Aug-2021 Osbaldo COPELAND [facility] Start : 12-Aug-2021 End : 11-Nov-2021 Complete diclofenac potassium 50 mg oral tablet (2 sources) Nonsteroidal Anti-inflammatory Drug Start: 025 End: take 1 tablet by mouth three times daily diclofenac (Cataflam) 50 mg tablet Indications: Acute foot pain, left Take 1 tablet (50 mg) by mouth 3 times a day. 60 tablet 11/06/2024 06/10/2025 Discontinued (Med List Cleanup) diphenhydrAMINE hydrochloride 25 mg oral tablet (1 source) Histamine-1 Receptor Antagonist Start: Benadryl Allergy 25 MG Oral Tablet take 1 tablet 1/2 hour prior to MRI Quantity: 1 Refills: 0 Shaikh DINORAH, [facility] Start : 21-Dec-2016 Active docusate sodium 100 [...] 13, 2018 11:00pm April 28, 2020 9:27am Flgiulianotonnavin Gummies Thorndike-3 DHA Oral Tablet Chewable (20 sources) End: 07-27-2022 take 1 tablet by mouth twice daily Flinstonnavin Gummies Thorndike-3 DHA Oral Tablet Chewable Take 1 tablet twice daily Quantity: 0 Refills: 0 Ordered: 27-Jul-2022 DO End : 27-Jul-2022 Complete take 1 tablet by mouth twice sandra ly Flinstones Gummies Thorndike-3 DHA Oral Tablet Chewable Take 1 tablet [...] 0 Refills: 0 Ordered: 25-May-2021 DO Active semaglutide, weight loss, (Wegovy) 0.25 mg/0.5 mL pen injector (1 source) Start: 11-12-19 25 End: 06-10-20 25 semaglutide, weight loss, (Wegovy) 0.25 mg/0.5 mL pen injector Indications: Class 3 severe obesity due to excess calories with serious comorbidity and body mass index (BMI) of 50.0 to 59.9 in adult ([facility]) Inject 0.25 mg under the skin 1 (one) time per week for 4 doses. 2 mL 11/11/2024 06/10/2025 Discontinued (Cost of medication) sucralfate 1000 mg oral tablet (5 sources) Aluminum Complex Start: 04-06-20 21 Sucralfate 1 GM Oral Tablet TAKE TABLET Twice daily DR. ROSAS Quantity: 0 Refills: 0 Ordered: 03-May-2021 DO Start : 06-Apr-2021 Active thiamine 100 mg oral tablet (20 sources) Start: 12-23-19 21 End: 12-11-19 22 take 1 tablet by [...] Serotonin and Norepinephrine Reuptake Inhibitor Start: 02-28-20 24 End: 11-07-19 25 take 1 capsule by mouth twice daily [...] Start: 12-20-2019 take 1 capsule by mo ut once daily, then take 1 capsule by [...] ; 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, unspecified] 06-24-2020 Chronic Immunizations and screening for infectious disease (1 source) Encounter for screening for human papillomavirus (HPV); Translations: [Encounter for screening for human papillomavirus (HPV)] Onset: 5 Episodic Malaise and fatigue (20 sources) Malaise and fatigue; Translations: [Other malaise and fatigue] Onset: 3 02-08-2023 Episodic Miscellaneous mental health disorders (20 sources) Insomnia disorder related to another mental disorder; Translations: [Dysthymic disorder] Onset: 3 02-09-2023 Chronic Mood disorders (20 sources) Depressive disorder; Translations: [Depression] Onset: 5 04-09-2015 Chronic Nutritional deficiencies (20 sources) Vitamin D deficiency; Translations: [Unspecified vitamin D deficiency] Onset: 6 08-23-2021 Chronic Nutritional deficiencies (20 sources) Vitamin deficiency; Translations: [Deficiency of other vitamins] Episodic Other aftercare (20 sources) Patient encounter status; Translations: [Long-term (current) use of other medications] Onset: 9 12-04-2018 Episodic Other and ill-defined heart disease (20 [...] gastrectomy; Translations: [Bariatric surgery status] Episodic Other gastrointestinal disorders (2 sources) Bariatric surgery status; Translations: [Bariatric surgery status] Onset: 4 Episodic Other infections; including parasitic (4 sources) [...] nutritional; endocrine; and metabolic disorders (20 sources) Rfxyr-3-mbmyfxigeom deficiency; Translations: [Nccbo-0-vzeprxkrzod deficiency] Onset: 9 09-20-2018 Chronic Other nutritional; [...] patient refusal] Episodic Comment on above: 2019; Residual codes; unclassified (20 sources) History of radiofrequency ablation operation for arrhythmia; Translations: [Other specified postprocedural states] Onset: 3 01-09-2023 Episodic Screening and history of mental health and [...] Onset: 3 06-24-2020 Episodic Headache; including migraine (7 sources) Headache; Translations: [Headache] Onset: 4 Resolved: 4 10-19-2023 Episodic Mood disorders (7 sources) Mood disorders Onset: 4 Resolved: 4 09-25-2023 Nonspecific chest pain (20 sources) Anterior chest wall pain; Translations: [Other chest pain] Onset: 0 06-29-2020 Episodic Other aftercare (2 sources) 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; Translations: [Other mcc (current) drug therapy] Onset: 4 Episodic Other connective tissue disease (2 sources) Pain in left foot; Translations: [Pain in left foot] Onset: 5 Episodic Other diseases of kidney and ureters (20 sources) Hydronephrosis; Translations: [Hydronephrosis] Onset: 3 02-08-2023 Episodic Other gastrointestinal disorders (20 sources) Drug-induced constipation; Translations: [Other constipation] Onset: 3 02-08-2023 Episodic Other gastrointestinal disorders (3 sources) History of bariatric surgical procedure; Translations: [Bariatric surgery status] Onset: 4 07-11-2024 Episodic Other liver diseases (20 sources) Large liver; Translations: [Hepatomegaly] Onset: 3 Episodic Other nervous system disorders (20 sources) Numbness of hand; Translations: [Disturbance of skin sensation] Onset: 3 02-08-2023 Episodic Other nervous system disorders (1 source) Paresthesia of skin; Translations: [Paresthesia of skin] Onset: 5 Episodic Other non-traumatic joint disorders (11 sources) Multiple joint pain; Translations: [Pain in [...] Translations: [Localized edema] Onset: 9 12-04-2018 Episodic Rheumatoid arthritis and related disease (20 sources) Ankylosing spondylitis; Translations: [Ankylosing spondylitis of unspecified sites in spine] Onset: 8 Resolved: 4 09-20-2018 Chronic Spondylosis; intervertebral disc disorders; other back problems (20 sources) Chronic low back pain; Translations: [Lumbago] Onset: 5 04-09-2015 Episodic Unclassified (2 sources) Patient encounter status; Translations: [Medication management] Unclassified (1 source) Influenza vaccination declined; Translations: [History of Influenza vaccination declined] Unclassified (4 sources) blood clot 03-27-2022 Unclassified (8 sources) Onset: 3 Resolved: 5 02-09-2023 Unclassified (1 source) Low back pain, unspecified; Translations: [Low back pain, unspecified] Onset: 4 Unclassified (1 source) Obesity, class 3; Translations: [Obesity, class 3] Onset: 4 NEGATED: Highlighted row has not occurred!Residual codes; unclassified (10 sources) Disease Episodic Results Test Name Value Interpretation Reference Range Facility CBC W/Diff, Automatedon - Absolute Lymph 1.66 X10 3/uL Normal 0.83-4.51 [facility] Comment on above: Performed By: #### L 100.0100 ####[facility] [address] [place], [address] Absolute Neut 5.3 X10 3/uL Normal 2.0-7.7 [facility] Comment on above: Performed By: #### L 100.0100 ####[facility] [address] [place], [address] Basophils/100 WBC (Bld) 0.1 % Normal 0-1 [facility] Comment on above: Performed By: #### L 100.0100 ####[facility] [address] [place], [address] Eosinophils/100 WBC (Bld) 1.0 % Normal 0-5 [facility] Comment on above: Performed By: #### L 100.0100 ####[facility] [address] [place], [address] Erythrocyte distribution width (RBC) [Ratio] 13.4 % Normal 11.6-14.6 [facility] Comment on above: Performed By: #### L 100.0100 ####[facility] [address] [place], [address] Hematocrit (Bld) [Volume fraction] 44.2 % Normal 37-47 [facility] Comment on above: Performed By: #### L 100.0100 ####[facility] [address] [place], [address] Hemoglobin (Bld) [Mass/Vol] 14.9 g/dL Normal 12.0-15.0 [facility] Comment on above: Performed By: #### L 100.0100 ####[facility] [address] [place], [address] IG% 0.300 Normal 0.0-0.9 [facility] Comment on above: Result Comment: IG% - Immature Granulocytes (promyelocytes, myelocytes and metamyelocytes) > 1% indicates that a LEFT SHIFT is Present. Performed By: #### L 100.0100 ####[facility] [address] [place], [address] Lymphocytes/100 WBC (Bld) 21.7 % Normal 19-41 [facility] Comment on above: Performed By: #### L 100.0100 ####[facility] [address] [place], [address] MCH (RBC) [Entitic mass] 28.8 pg Normal 27.0-32.0 [facility] Comment on above: Performed By: #### L 100.0100 ####[facility] [address] [place], [address] MCHC (RBC) [Mass/Vol] 33.7 g/dL Normal 32-36 [facility] Comment on above: Performed By: #### L 100.0100 ####[facility] [address] [place], [address] MCV (RBC) [Entitic vol] 85.3 fL Normal 81-99 [facility] Comment on above: Performed By: #### L 100.0100 ####[facility] [address] [place], [address] Monocytes/100 WBC (Bld) 7.2 % Normal 0-10 [facility] Comment on above: Performed By: #### L 100.0100 ####[facility] [address] [place], [address] Neutrophils/100 WBC (Bld) 69.7 % Normal 47-70 [facility] Comment on above: Performed By: #### L 100.0100 ####[facility] [address] [place], [address] Nucleated RBC (Bld) [#/Vol] 0 10*3/uL Normal 0-5 [facility] Comment on above: Performed By: #### L 100.0100 ####[facility] [address] [place], [address] Platelet mean volume (Bld) [Entitic vol] 11.6 fL Normal 6.2-12.0 [facility] Comment on above: Performed By: #### L 100.0100 ####[facility] [address] [place], [address] Platelets (Bld) [#/Vol] 184 10*3/uL Normal 150-450 [facility] Comment on above: Performed By: #### L 100.0100 ####[facility] [address] [place], [address] RBC (Bld) [#/Vol] 5.18 10*6/uL Normal 4.2-5.4 [facility] Comment on above: Performed By: #### L 100.0100 ####[facility] [address] [place], [address] RDW SD 41.8 fl Normal 35.1-43.9 [facility] Comment on above: Performed By: #### L 100.0100 ####[facility] [address] [place], [address] WBC (Bld) [#/Vol] 7.7 10*3/uL Normal 4.4-11.0 [facility] Comment on above: Performed By: #### L 100.0100 ####[facility] [address] 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 LMP: 07/11/2016, Ablation Age at Menarche: Age at First : Age at Menopause: 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 History Comments: Sexual Activity: Yes; Male; ablation Contraception: Other, Tubal Ligation PAST MEDICAL HISTORY Diagnosis Date Qzmws-4-yioqrcrcqjn deficiency (HCC) Cardiac dysrhythmia, unspecified 2007 Depressive [...] CHOLECYSTECTOMY 01/08/2008 EGD 04/2021 EGD 02/2021 ESSURE 2010 LAP SLEEVE GASTRECTOMY 04/11/2022 LAPAROSCOPIC UTERINE NERVE ABLATION 2012 LIVER BIOPSY 2008 MIDLINE CATHETER 09/21/2018 PAST SURGICAL HISTORY OF 2009 spring coils in fallopian tubes S BALLOON,UTERINE ABLATION 72566 2009 SHX CARDIAC RADIOFREQUENCY ABLATION 2018 ventricular [...] discussed with the Patient or Patient's Authorized Bioinformatics Research Technician. As applicable, any other physician, advance practice provider, medical student, or other health professional student th (more content not included)... Normal [facility] HIGH RISK HUMAN PAPILLOMA JENNIFER (HPV), PCR FOR DETECTION AND GENOTYPINGon 06-03-2025 HPV 16 Ag Ql (Unsp spec) Not detected Normal Not detected [facility] Comment on above: Order Comment: Speci men Type: FLUID SPECIMEN Ordering Facility: [facility] Address: [address] [place] [address] Performed By: #### H PVHRT #### [facility] CLIA [id number] [address] [place] [address] [place] HPV 18 Ag Ql (Unsp spec) Not detected Normal Not detected [facility] Comment on above: Order Comment: Speci men Type: FLUID SPECIMEN Ordering Facility: [facility] Address: [address] [place] [address] Performed By: #### H PVHRT #### [facility] CLIA [id number] [address] [place] [address] [place] HPV 31+33+35+39+45+51+52+ 56+58+59+66+68 DNA ALISON+probe Ql (Cvx) Not detected Normal Not detected [facility] Comment on above: Order Comment: Speci men Type: FLUID SPECIMEN Ordering Facility: [facility] Address: [address] [place] [address] Result Comment: High Risk HPV Other Type includes HPV types 31, 33, 35, 39, 45, 51, 52, 56, 58, 59, 66 and 68. Performed By: #### H PVHRT #### [facility] CLIA [id number] [address] [place] [address] OF [facility] PAP TESTon 06-03-2025 ADEQUACY Normal [facility] Comment on above: Order Comment: Speci men Type: FLUID SPECIMEN Ordering Facility: [facility] Address: [address] [place] [address] Result Comment: Sati sfactory for interpretation. Transformation zone present Performed By: #### L [id number] #### [facility] CLIA [id number] [address] [place] [address] STATES OF [facility] CASE REPORT Normal [facility] Comment on above: Order Comment: Speci men Type: FLUID SPECIMEN Ordering Facility: [facility] Address: [address] [place] [address] Result Comment: Gyne cologic Cytology Report Case: [id number] Authorizing Provider: Dee Dee Louise APRN.CURTAIN FELLER BLINDSTITCH Collected: 06/03/2025 07:56 AM Ordering Location: OB/Gynecology Received: 06/03/2025 11:42 AM First Screen: So, [place], CT, ASCP Specimen: Pap Test, ThinPrep, Cervix Performed By: #### L [id number] #### [facility] CLIA [id number] [address] [place] [place] [address] [place] CLINICAL HISTORY, CYTOLOGY, BALL WARPER TENDER Routine Exam Normal [facility] Comment on above: Order Comment: Speci men Type: FLUID SPECIMEN Ordering Facility: [facility] Address: [address] [place] [address] Performed By: #### L [id number] #### [facility] CLIA [id number] [address] [place] [address] [place] FINAL PERFORMING LAB Normal [facility] Comment on above: Order Comment: Speci men Type: FLUID SPECIMEN Ordering Facility: [facility] Address: [address] [place] [address] Result Comment: Tech nical component, market stall vendor screening performed at: [facility], [address] [place], [place] [address] CLIA: [id number] Diagnostic interpretation performed at: [facility], [address] [place] [address] CLIA# [id number] Protection Manager: Alfredo Red MD Performed By: #### L [id number] #### [facility] CLIA [id number] [address] [place] [address] [place] INTERPRETATION, CYTOLOGY, BALL WARPER TENDER Normal [facility] Comment on above: Order Comment: Speci men Type: FLUID SPECIMEN Ordering Facility: [facility] Address: [address] [place] [address] Result Comment: Nega tive for intraepithelial lesion or malignancy. at 0955 EDT Performed By: #### L [id number] #### [facility] CLIA [id number] [address] [place] [address] [place] LMP 06/03/2025 Normal [facility] Comment on above: Order Comment: Speci men Type: FLUID SPECIMEN Ordering Facility: [facility] Address: [address] [place] [address] Performed By: #### L [id number] #### [facility] CLIA [id number] [address] [place] [address] [place] PAP DISCLAIMER COMMENT The Pap Smear is a screening test for cervical cancer. False negative results occur with all screening tests, emphasizing the need for rescreening at recommended intervals, and clinical correlation. Normal [facility] Comment on above: Order Comment: Speci men Type: FLUID SPECIMEN Ordering Facility: [facility] Address: [address] [place] [address] Performed By: #### L [id number] #### [facility] CLIA [id number] [address] [place] [address] [place] PAP FAST FOOD RESTAURANT MANAGER COMMENT This specimen has be en analyzed by the FDA-approved Vidable System, which uses digital imaging and an enhanced artificial intelligence image analysis algorithm to identify palma of interest on the microscopic slide, to assist the manufacturing sales representative and pathologist in evaluating cells on ThinPrep Pap tests. Following analysis, palma of interest on the microscopic slide selected by the algorithm are reviewed by a manufacturing sales representative. If a sample requires hierarchical review, the pathologist will review the same palma of interest selected by the algorithm prior to final interpretation. Normal [facility] Comment on above: Order Comment: Speci men Type: FLUID SPECIMEN Ordering Facility: [facility] Address: [address] [place] [address] Performed By: #### L [id number] #### [facility] CLIA [id number] [address] [place] [address] [place] SCRN MAMM (CAD)W/LILIANA BILATo n 05-08-2025 SCRN MAMM (CAD)W/LILIANA BILAT [facility] Imaging Services [address] [place] [address] SCRN MAMM (CAD)W/LILIANA BILAT MR#: [id number] Acct: [id number] Name: CURLY COWART Rep #: [id number] : 1985 F 39 From: Gray cadena MD PCP: JUNE Jeronimo Status: REG CLI Study: SCRN MAMM (CAD)W/LILIANA BILAT Date of Exam: 04/28 09/21 Exam# [id number] Ordering Dr: Vargas Mujica EXAM: SCRN MAMM (CAD)W/LILIANA BILAT DATE: 05/08/2025 CLINICAL HISTORY: F, Age 39 y/o , SCREENING No family history. TECHNIQUE: Procedure Code: BISMWCADBTOM Modality: MG Procedure: SCRN MAMM (CAD)W/LILIANA BILAT COMPARISON: Prior exam(s) dated March 29, 2024.. FINDINGS: TISSUE DENSITY: The breasts are almost entirely fatty. Bilateral Breast Mammographic Findings: No significant masses, calcifications or other abnormalities are identified. Stable 5 mm well- defined nodule in the slightly upper lateral aspect of the right breast. This was demonstrated to be a small intramammary lymph node on prior sonogram. No suspicious masses, areas of developing architectural distortion, or suspicious calcifications. There has been no significant interval change. BI/SCRN MAMM (CAD)W/LILIANA BILAT IMPRESSION: Stable bilateral screening mammogram. OVERALL FINAL ASSESSMENT BI-RADS 2: BENIGN RECOMMENDATION: Routine annual follow-up in 1 Year A letter with findings and recommendations will be mailed to the patient. Reading Location: [id number] CC: JUNE Jeronimo Zigzag Topstitcher: Signed Normal [facility] Coronary Angiography CTon Coronary Angiography CT [facility] Services [address] [place] [address] 02/20/25 1618 MR#: [id number] Acct: [id number] Name: CURLY COWART Rep #: [id number] : 1985 39 From: Rafael Shipley MD [...] MD Cosigner Signature (if applicable): Date CC: INSPECTOR PRECISION-C JOHANNY MARMOLEJO; Dr. Rafael Shipley MD; JUNE Jeronimo Signed Normal [facility] Limited Chest CT Cardiac Onl yon 02-20-[address] Cardiac Only [facility] [address] [place] [address] Cardiac Only MR#: [id number] Acct: [id number] Name: CURLY COWART Rep #: [id number] : 1985 F 39 From: Tex Liang PCP: JUNE Jeronimo Status: [facility] Study: Limited Chest CT Cardiac Only Date of Exam: Exam# [id number] Ordering Dr: JOHANNY MARMOLEJO INSPECTOR PRECISION-C PROCEDURE: LIMITED CHEST CT CARDIAC ONLY 02/20/2025 [...] abdomen demonstrates no acute abnormality. Reading Location: [place] [address] CC: CHARISSE MARMOLEJO; JUNE Jeronimo Zigzag Topstitcher: Signed Normal [facility] CNPN Telephone (AGCARDPOB ) CURLY COWART ([id number]) 1985 F Date Time Provider Department 01/29/25 JOHANNY MARMOLEJO During your visit today, we recorded the following information about you: Johanny Meredith LPN 01/29/2025 11:14 AM Signed [facility] asking for an order for Calcium Scoring to be faxed to [phone]. 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 CNOVon 01-28-2025 CNOV Office Visit (AGCARDPOB) CURLY COWART ([id number]) 1985 F Date Time Provider Department 01/28/25 2:30 PM JOHANNY MARMOLEJO AGCARDPOB During your visit today, we recorded the following information about you: Pulse Blood pressure Weight 72/minute 128/78 153.8 kg Johanny Marmolejo, PIT FURNACE MELTER.CURTAIN FELLER BLINDSTITCH 01/30/2025 11:11 AM Signed Chief Complaint Patient presents with: Cardiology Follow Up - Generic: sooner f/u than [place] - bradycardia History of Present Illness: Curly Cowart is a very pleasant 39 year old female who presents for symptom concerns. She has a past medical history of wide-complex tachycardia (s/p ablation 2018 at [facility]), gastric bypass surgery. She is known to Dr. Garay, last seen in our [place] office location 01/09/2023. The patient is a [...] is currently working with a dietitian through [employer] to improve her health and manage her [...] up Dr. Garay's first available appointment in [place] on 09/15/2025. PAST MEDICAL HISTORY Diagnosis Date Ubzws-7-fyizrimsgaf deficiency (HCC) Cardiac dysrhythmia, unspecified 2008 Depressive disorder, not elsewhere classified DVT (deep [...] coils in fallopian tubes S BALLOON,UTERINE ABLATION 80227 2009 SHX CARDIAC RADIOFREQUENCY ABLATION 2018 ventricular [...] (more content not included)... Normal [facility] Roldan 01-09-2025 SWATIN Telephone (CARDWS) CURLY COWART ([id number]) 1985 F Date Time Provider Department 01/09/25 TOMASZ GARAY CARDWS During your visit today, we recorded the [...] requesting to be seen sooner if possible. Xochitl Membrenoe 01/13/2025 9:30 AM Signed Called pt and left voicemail stating we could get her in sooner if she is willing to come to [place]. Waiting to hear back from pt if she would like to reschedule. 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, [address] Calcium [Mass/Vol] 9.6 mg/dL Normal 7.6-11.0 [facility] Comment on above: Performed By: #### L 500.2500, L501.9520, L100.0500 #### [facility] [address] [place], [address] Chloride [Moles/Vol] 103 mmol/L Normal 98-108 [facility] Comment on above: Performed By: #### L 500.2500, L501.9520, L100.0500 #### [facility] [address] [place], [address] CO2 [Moles/Vol] 26.1 mmol/L Normal 21.0-32.0 [facility] Comment on above: Performed By: #### L 500.2500, L501.9520, L100.0500 #### [facility] [address] [place], [address] Creatinine [Mass/Vol] 0.67 mg/dL Low 0.70-1.20 [facility] Comment on above: Performed By: #### L 500.2500, L501.9520, L100.0500 #### [facility] [address] [place], [address] ECRCL 167.96 ml/min Normal 50-250 [facility] Comment on above: Performed By: #### L 500.2500, L501.9520, L100.0500 #### [facility] [address] [place], [address] GAP 10 Normal 5-15 [facility] Comment on above: Performed By: #### L 500.2500, L501.9520, L100.0500 #### [facility] [address] [place], [address] GFR/1.73 sq M.predicted among non-blacks MDRD (S/P/Bld) [Vol rate/Area] 112 mL/min/{1.73_m2} Normal >60 [facility] Comment on above: Result Comment: mL/m in/1.73m2 CKD-EPI Creatinine Equation (2020) Performed By: #### L 500.2500, L501.9520, L100.0500 #### [facility] [address] [place], [address] Glucose [Mass/Vol] 131 mg/dL High 70-99 [facility] Comment on above: Performed By: #### L 500.2500, L501.9520, L100.0500 #### [facility] [address] [place], [address] Potassium [Moles/Vol] 3.8 mmol/L Normal 3.3-5.1 [facility] Comment on above: Performed By: #### L 500.2500, L501.9520, L100.0500 #### [facility] [address] [place], [address] Sodium [Moles/Vol] 139 mmol/L Normal 133-145 [facility] Comment on above: Performed By: #### L 500.2500, L501.9520, L100.0500 #### [facility] [address] [place], [address] Urea nitrogen [Mass/Vol] 9 mg/dL Normal 4-19 [facility] Comment on above: Performed By: #### L 500.2500, L501.9520, L100.0500 #### [facility] [address] [place], [address] CBC-Complete Blood Cnt No Di ffon 12-20-2024 Erythrocyte distribution width (RBC) [Ratio] 13.4 % Normal 11.6-14.6 [facility] Comment on above: Performed By: #### L 500.2500, L501.9520, L100.0500 #### [facility] [address] [place], [address] Hematocrit (Bld) [Volume fraction] 45.9 % Normal 37-47 [facility] Comment on above: Performed By: #### L 500.2500, L501.9520, L100.0500 #### [facility] [address] [place], [address] Hemoglobin (Bld) [Mass/Vol] 15.3 g/dL High 12.0-15.0 [facility] Comment on above: Performed By: #### L 500.2500, L501.9520, L100.0500 #### [facility] [address] [place], [address] MCH (RBC) [Entitic mass] 28.1 pg Normal 27.0-32.0 [facility] Comment on above: Performed By: #### L 500.2500, L501.9520, L100.0500 #### [facility] [address] [place], [address] MCHC (RBC) [Mass/Vol] 33.3 g/dL Normal 32-36 [facility] Comment on above: Performed By: #### L 500.2500, L501.9520, L100.0500 #### [facility] [address] [place], [address] MCV (RBC) [Entitic vol] 84.4 fL Normal 81-99 [facility] Comment on above: Performed By: #### L 500.2500, L501.9520, L100.0500 #### [facility] [address] [place], [address] Platelet mean volume (Bld) [Entitic vol] 11.3 fL Normal 6.2-12.0 [facility] Comment on above: Performed By: #### L 500.2500, L501.9520, L100.0500 #### [facility] [address] [place], [address] Platelets (Bld) [#/Vol] 204 10*3/uL Normal 150-450 [facility] Comment on above: Performed By: #### L 500.2500, L501.9520, L100.0500 #### [facility] [address] [place], [address] RBC (Bld) [#/Vol] 5.44 10*6/uL High 4.2-5.4 [facility] Comment on above: Performed By: #### L 500.2500, L501.9520, L100.0500 #### [facility] [address] [place], [address] RDW SD 41.5 fl Normal 35.1-43.9 [facility] Comment on above: Performed By: #### L 500.2500, L501.9520, L100.0500 #### [facility] [address] [place], [address] WBC (Bld) [#/Vol] 9.9 10*3/uL Normal 4.4-11.0 [facility] Comment on above: Performed By: #### L 500.2500, L501.9520, L100.0500 #### [facility] [address] [place], [address] Emergency Department Summary on 12-20-2024 Emergency Department Summary [facility] Medical Records Department [address] [place] [address] Emergency Department Summary 12/20/24 MR#: [id number] Acct: [id number] Name: CURLY COWART Rep #: [id number] : 1985 39 From: Anam Garcia MD [...] BMI is 56.9. Patient underwent ablation by hand picker at [facility] 2019 for PSVT. Patient reports that [...] Anxiety Iron deficiency anemia Vitamin D deficiency Zxvro-4-dcszidcbeor deficiency GERD (gastroesophageal reflux disease) Ankylosing spondylitis [...] of radiofrequency ablation procedure for cardiac arrhythmia (01/29/19) History of tubal ligation History of tonsillectomy History of cholecystectomy History of History of liver biopsy History of left heart catheterization (09/18/18) Social History household members: significant other and family current occupational status: employed current occu (more content not included)... Normal [facility] Thyroid Stim Hormone (TSH)on 12-20-2024 TSH 3.010 uIU/mL Normal 0.300-4.200 [facility] Comment on above: Performed By: #### L 500.2500, L501.9520, L100.0500 ####[facility] [address] [place], [place], [id number] Benzodiazepine Conf URon BENZODIAZEPINE Negative Normal Cxgada=756 [facility] Comment on above: Order Comment: UNK Performed By: #### L 501.5200, L501.23090, L501.9520, L3380.5600, L500.4050, L3380.9100, L503.0106, L100.0100, L503.6550, L503.6030, L506.0400, L500.4100, L506.1001 ####[facility] [address] [place], [place], [address] Opiates, Ur Confirmon 2024 OPIATES,UR Negative Normal Bshbcd=452 [facility] Comment on above: Order Comment: UNK Result Comment: Opia te test includes Codeine and Morphine only. Performed at: - [facility] [address] [facility], [place], [place] [id number] Extension Edger: Cruz Lawler PhD, Phone: [phone] Performed By: #### L 501.5200, L501.41079, L501.9520, L3380.5600, L500.4050, L3380.9100, L503.0106, L100.0100, L503.6550, L503.6030, L506.0400, L500.4100, L506.1001 ####[facility] [address] [place], [address] T4 Free Directon 11-11-2024 T4 FREE DIRECT 1.10 ng/dL Normal 0.76-1.46 [facility] Comment on above: Performed By: #### L 501.5200, L501.99389, L501.9520, L3380.5600, L500.4050, L3380.9100, L503.0106, L100.0100, L503.6550, L503.6030, L506.0400, L500.4100, L506.1001 ####[facility] [address] [place], [place], [address] CBC W/Diff, Automatedon 10-26 Absolute Lymph 1.92 X10 3/uL Normal 0.83-4.51 [facility] Comment on above: Performed By: #### L 501.5200, L501.49300, L501.9520, L3380.5600, L500.4050, L3380.9100, L503.0106, L100.0100, L503.6550, L503.6030, L506.0400, L500.4100, L506.1001 ####[facility] [address] [place], [place], [id number] Absolute Neut 5.5 X10 3/uL Normal 2.0-7.7 [facility] Comment on above: Performed By: #### L 501.5200, L501.20892, L501.9520, L3380.5600, L500.4050, L3380.9100, L503.0106, L100.0100, L503.6550, L503.6030, L506.0400, L500.4100, L506.1001 ####[facility] [address] [place], [place], [address] Basophils/100 WBC (Bld) 0.4 % Normal 0-1 [facility] Comment on above: Performed By: #### L 501.5200, L501.48380, L501.9520, L3380.5600, L500.4050, L3380.9100, L503.0106, L100.0100, L503.6550, L503.6030, L506.0400, L500.4100, L506.1001 ####[facility] [address] [place], [address] Eosinophils/100 WBC (Bld) 1.8 % Normal 0-5 [facility] Comment on above: Performed By: #### L 501.5200, L501.76648, L501.9520, L3380.5600, L500.4050, L3380.9100, L503.0106, L100.0100, L503.6550, L503.6030, L506.0400, L500.4100, L506.1001 ####[facility] [address] [place], [address] Erythrocyte distribution width (RBC) [Ratio] 13.4 % Normal 11.6-14.6 [facility] Comment on above: Performed By: #### L 501.5200, L501.54084, L501.9520, L3380.5600, L500.4050, L3380.9100, L503.0106, L100.0100, L503.6550, L503.6030, L506.0400, L500.4100, L506.1001 ####[facility] [address] [place], [address] Hematocrit (Bld) [Volume fraction] 43.6 % Normal 37-47 [facility] Comment on above: Performed By: #### L 501.5200, L501.29059, L501.9520, L3380.5600, L500.4050, L3380.9100, L503.0106, L100.0100, L503.6550, L503.6030, L506.0400, L500.4100, L506.1001 ####[facility] [address] [place], [address] Hemoglobin (Bld) [Mass/Vol] 14.2 g/dL Normal 12.0-15.0 [facility] Comment on above: Performed By: #### L 501.5200, L501.92107, L501.9520, L3380.5600, L500.4050, L3380.9100, L503.0106, L100.0100, L503.6550, L503.6030, L506.0400, L500.4100, L506.1001 ####[facility] [address] [place], [address] IG% 0.500 Normal 0.0-0.9 [facility] Comment on above: Result Comment: IG% - Immature Granulocytes (promyelocytes, myelocytes and metamyelocytes) > 1% indicates that a LEFT SHIFT is Present. Performed By: #### L 501.5200, L501.13094, L501.9520, L3380.5600, L500.4050, L3380.9100, L503.0106, L100.0100, L503.6550, L503.6030, L506.0400, L500.4100, L506.1001 ####[facility] [address] [place], [address] Lymphocytes/100 WBC (Bld) 23.1 % Normal 19-41 [facility] Comment on above: Performed By: #### L 501.5200, L501.36790, L501.9520, L3380.5600, L500.4050, L3380.9100, L503.0106, L100.0100, L503.6550, L503.6030, L506.0400, L500.4100, L506.1001 ####[facility] [address] [place], [address] MCH (RBC) [Entitic mass] 27.7 pg Normal 27.0-32.0 [facility] Comment on above: Performed By: #### L 501.5200, L501.19655, L501.9520, L3380.5600, L500.4050, L3380.9100, L503.0106, L100.0100, L503.6550, L503.6030, L506.0400, L500.4100, L506.1001 ####[facility] [address] [place], [address] MCHC (RBC) [Mass/Vol] 32.6 g/dL Normal 32-36 [facility] Comment on above: Performed By: #### L 501.5200, L501.83281, L501.9520, L3380.5600, L500.4050, L3380.9100, L503.0106, L100.0100, L503.6550, L503.6030, L506.0400, L500.4100, L506.1001 ####[facility] [address] [place], [address] MCV (RBC) [Entitic vol] 85.0 fL Normal 81-99 [facility] Comment on above: Performed By: #### L 501.5200, L501.97206, L501.9520, L3380.5600, L500.4050, L3380.9100, L503.0106, L100.0100, L503.6550, L503.6030, L506.0400, L500.4100, L506.1001 ####[facility] [address], [address] Monocytes/100 WBC (Bld) 8.6 % Normal 0-10 [facility] Comment on above: Performed By: #### L 501.5200, L501.97287, L501.9520, L3380.5600, L500.4050, L3380.9100, L503.0106, L100.0100, L503.6550, L503.6030, L506.0400, L500.4100, L506.1001 ####[facility] [address] [place], [address] Neutrophils/100 WBC (Bld) 65.6 % Normal 47-70 [facility] Comment on above: Performed By: #### L 501.5200, L501.32661, L501.9520, L3380.5600, L500.4050, L3380.9100, L503.0106, L100.0100, L503.6550, L503.6030, L506.0400, L500.4100, L506.1001 ####[facility] [address] [facility] [place], [place], [phone] Nucleated RBC (Bld) [#/Vol] 0 10*3/uL Normal 0-5 [facility] Comment on above: Performed By: #### L 501.5200, L501.94955, L501.9520, L3380.5600, L500.4050, L3380.9100, L503.0106, L100.0100, L503.6550, L503.6030, L506.0400, L500.4100, L506.1001 ####[facility] [address] [facility] [place], [place], [phone] Platelet mean volume (Bld) [Entitic vol] 12.0 fL Normal 6.2-12.0 [facility] Comment on above: Performed By: #### L 501.5200, L501.55178, L501.9520, L3380.5600, L500.4050, L3380.9100, L503.0106, L100.0100, L503.6550, L503.6030, L506.0400, L500.4100, L506.1001 ####[facility] [address] [place], [address] Platelets (Bld) [#/Vol] 143 10*3/uL Low 150-450 [facility] Comment on above: Performed By: #### L 501.5200, L501.31669, L501.9520, L3380.5600, L500.4050, L3380.9100, L503.0106, L100.0100, L503.6550, L503.6030, L506.0400, L500.4100, L506.1001 ####[facility] [address] [place], [address] RBC (Bld) [#/Vol] 5.13 10*6/uL Normal 4.2-5.4 [facility] Comment on above: Performed By: #### L 501.5200, L501.38929, L501.9520, L3380.5600, L500.4050, L3380.9100, L503.0106, L100.0100, L503.6550, L503.6030, L506.0400, L500.4100, L506.1001 ####[facility] [address] [place], [address] RDW SD 41.9 fl Normal 35.1-43.9 [facility] Comment on above: Performed By: #### L 501.5200, L501.83411, L501.9520, L3380.5600, L500.4050, L3380.9100, L503.0106, L100.0100, L503.6550, L503.6030, L506.0400, L500.4100, L506.1001 ####[facility] [address] [place], [address] WBC (Bld) [#/Vol] 8.3 10*3/uL Normal 4.4-11.0 [facility] Comment on above: Performed By: #### L 501.5200, L501.94225, L501.9520, L3380.5600, L500.4050, L3380.9100, L503.0106, L100.0100, L503.6550, L503.6030, L506.0400, L500.4100, L506.1001 ####[facility] [address] [place], [place], [id number] Comprehensive Metabolic [facility] 11-07-2024 Albumin [Mass/Vol] 4.0 g/dL Normal 3.5-5.0 [facility] Comment on above: Performed By: #### L 501.5200, L501.14069, L501.9520, L3380.5600, L500.4050, L3380.9100, L503.0106, L100.0100, L503.6550, L503.6030, L506.0400, L500.4100, L506.1001 ####[facility] [address] [place], [address] Albumin/Globulin [Mass ratio] 1.1 {ratio} Normal 0.9-2.4 [facility] Comment on above: Performed By: #### L 501.5200, L501.02974, L501.9520, L3380.5600, L500.4050, L3380.9100, L503.0106, L100.0100, L503.6550, L503.6030, L506.0400, L500.4100, L506.1001 ####[facility] [address] [place], [place], [phone] ALK PHOS 104 U/L Normal 35-104 [facility] Comment on above: Performed By: #### L 501.5200, L501.67343, L501.9520, L3380.5600, L500.4050, L3380.9100, L503.0106, L100.0100, L503.6550, L503.6030, L506.0400, L500.4100, L506.1001 ####[facility] [address] [place], [place], [phone] ALT [Catalytic activity/Vol] 60 U/L High <=34 [facility] Comment on above: Performed By: #### L 501.5200, L501.76567, L501.9520, L3380.5600, L500.4050, L3380.9100, L503.0106, L100.0100, L503.6550, L503.6030, L506.0400, L500.4100, L506.1001 ####[facility] [address] [place], [address] AST [Catalytic activity/Vol] 46 U/L High <=31 [facility] Comment on above: Performed By: #### L 501.5200, L501.18632, L501.9520, L3380.5600, L500.4050, L3380.9100, L503.0106, L100.0100, L503.6550, L503.6030, L506.0400, L500.4100, L506.1001 ####[facility] [address] [place], [address] Bilirubin [Mass/Vol] 0.42 mg/dL Normal 0.00-1.30 [facility] Comment on above: Performed By: #### L 501.5200, L501.38529, L501.9520, L3380.5600, L500.4050, L3380.9100, L503.0106, L100.0100, L503.6550, L503.6030, L506.0400, L500.4100, L506.1001 ####[facility] [address] [place], [address] BUN/CRE 14.8 RATIO Normal 10-20 [facility] Comment on above: Performed By: #### L 501.5200, L501.07475, L501.9520, L3380.5600, L500.4050, L3380.9100, L503.0106, L100.0100, L503.6550, L503.6030, L506.0400, L500.4100, L506.1001 ####[facility] [address] [place], [address] Calcium [Mass/Vol] 9.6 mg/dL Normal 7.6-11.0 [facility] Comment on above: Performed By: #### L 501.5200, L501.90857, L501.9520, L3380.5600, L500.4050, L3380.9100, L503.0106, L100.0100, L503.6550, L503.6030, L506.0400, L500.4100, L506.1001 ####[facility] [address] [place], [address] Chloride [Moles/Vol] 104 mmol/L Normal 98-108 [facility] Comment on above: Performed By: #### L 501.5200, L501.54336, L501.9520, L3380.5600, L500.4050, L3380.9100, L503.0106, L100.0100, L503.6550, L503.6030, L506.0400, L500.4100, L506.1001 ####[facility] [address] [place], [address] CO2 [Moles/Vol] 25.2 mmol/L Normal 21.0-32.0 [facility] Comment on above: Performed By: #### L 501.5200, L501.63131, L501.9520, L3380.5600, L500.4050, L3380.9100, L503.0106, L100.0100, L503.6550, L503.6030, L506.0400, L500.4100, L506.1001 ####[facility] [address] [place], [place], [phone] Creatinine [Mass/Vol] 0.66 mg/dL Low 0.70-1.20 [facility] Comment on above: Performed By: #### L 501.5200, L501.21798, L501.9520, L3380.5600, L500.4050, L3380.9100, L503.0106, L100.0100, L503.6550, L503.6030, L506.0400, L500.4100, L506.1001 ####[facility] [address] [place], [place], [phone] GAP 10 Normal 5-15 [facility] Comment on above: Performed By: #### L 501.5200, L501.97407, L501.9520, L3380.5600, L500.4050, L3380.9100, L503.0106, L100.0100, L503.6550, L503.6030, L506.0400, L500.4100, L506.1001 ####[facility] [address] [facility] [place], [address] GFR/1.73 sq M.predicted among non-blacks MDRD (S/P/Bld) [Vol rate/Area] 113 mL/min/{1.73_m2} Normal >60 [facility] Comment on above: Result Comment: mL/m in/1.73m2 CKD-EPI Creatinine Equation (2020) Performed By: #### L 501.5200, L501.17198, L501.9520, L3380.5600, L500.4050, L3380.9100, L503.0106, L100.0100, L503.6550, L503.6030, L506.0400, L500.4100, L506.1001 ####[facility] [address] [place], [address] Globulin (S) [Mass/Vol] 3.5 g/dL Normal 2.2-4.2 [facility] Comment on above: Performed By: #### L 501.5200, L501.01644, L501.9520, L3380.5600, L500.4050, L3380.9100, L503.0106, L100.0100, L503.6550, L503.6030, L506.0400, L500.4100, L506.1001 ####[facility] [address] [place], [address] Glucose [Mass/Vol] 90 mg/dL Normal 70-99 [facility] Comment on above: Performed By: #### L 501.5200, L501.81120, L501.9520, L3380.5600, L500.4050, L3380.9100, L503.0106, L100.0100, L503.6550, L503.6030, L506.0400, L500.4100, L506.1001 ####[facility] [address] [place], [address] Potassium [Moles/Vol] 4.4 mmol/L Normal 3.3-5.1 [facility] Comment on above: Performed By: #### L 501.5200, L501.39365, L501.9520, L3380.5600, L500.4050, L3380.9100, L503.0106, L100.0100, L503.6550, L503.6030, L506.0400, L500.4100, L506.1001 ####[facility] [address] [place], [address] Sodium [Moles/Vol] 140 mmol/L Normal 133-145 [facility] Comment on above: Performed By: #### L 501.5200, L501.03827, L501.9520, L3380.5600, L500.4050, L3380.9100, L503.0106, L100.0100, L503.6550, L503.6030, L506.0400, L500.4100, L506.1001 ####[facility] [address] [place], [address] T PROT 7.5 g/dL Normal 5.9-8.4 [facility] Comment on above: Performed By: #### L 501.5200, L501.98565, L501.9520, L3380.5600, L500.4050, L3380.9100, L503.0106, L100.0100, L503.6550, L503.6030, L506.0400, L500.4100, L506.1001 ####[facility] [address] [place], [place], [id number] Urea nitrogen [Mass/Vol] 10 mg/dL Normal 4-19 [facility] Comment on above: Performed By: #### L 501.5200, L501.27632, L501.9520, L3380.5600, L500.4050, L3380.9100, L503.0106, L100.0100, L503.6550, L503.6030, L506.0400, L500.4100, L506.1001 ####[facility] [address] [place], [address] Ferritinon 11-07-2024 Ferritin [Mass/Vol] 71 ng/mL Normal 22-378 [facility] Comment on above: Performed By: #### L 501.5200, L501.39182, L501.9520, L3380.5600, L500.4050, L3380.9100, L503.0106, L100.0100, L503.6550, L503.6030, L506.0400, L500.4100, L506.1001 ####[facility] [address] [place], [place], [id number] Free T3on 11-07-2024 Free T3 [Mass/Vol] 3.3 pg/mL Normal 2.18-3.98 [facility] Comment on above: Performed By: #### L 501.5200, L501.21570, L501.9520, L3380.5600, L500.4050, L3380.9100, L503.0106, L100.0100, L503.6550, L503.6030, L506.0400, L500.4100, L506.1001 ####[facility] [address] [place], [place], [phone] Iron+Iron Binding Capacityon 11-07-2024 Iron [Mass/Vol] 77 ug/dL Normal 50-170 [facility] Comment on above: Performed By: #### L 501.5200, L501.07478, L501.9520, L3380.5600, L500.4050, L3380.9100, L503.0106, L100.0100, L503.6550, L503.6030, L506.0400, L500.4100, L506.1001 ####[facility] [address] [place], [place], [id number] IRON SATURATION 25.0 Normal 13-59 [facility] Comment on above: Performed By: #### L 501.5200, L501.47757, L501.9520, L3380.5600, L500.4050, L3380.9100, L503.0106, L100.0100, L503.6550, L503.6030, L506.0400, L500.4100, L506.1001 ####[facility] [address] [place], [address] TIBC 308 ug/dL Normal 250-450 [facility] Comment on above: Performed By: #### L 501.5200, L501.62603, L501.9520, L3380.5600, L500.4050, L3380.9100, L503.0106, L100.0100, L503.6550, L503.6030, L506.0400, L500.4100, L506.1001 ####[facility] [address] [place], [address] UIBC 231 ug/dL Normal 228-428 [facility] Comment on above: Performed By: #### L 501.5200, L501.85048, L501.9520, L3380.5600, L500.4050, L3380.9100, L503.0106, L100.0100, L503.6550, L503.6030, L506.0400, L500.4100, L506.1001 ####[facility] [address] [place], [address] L503.0106on 11-07-2024 Cobalamin (Vitamin B12) [Mass/Vol] 813 pg/mL Normal 180-914 [facility] Comment on above: Performed By: #### L 501.5200, L501.30846, L501.9520, L3380.5600, L500.4050, L3380.9100, L503.0106, L100.0100, L503.6550, L503.6030, L506.0400, L500.4100, L506.1001 ####[facility] [address] [place], [address] L506.1001on 11-07-2024 Vitamin D 25-OH 24.6 ng/mL Low 30-100 [facility] Comment on above: Result Comment: Dyan min D Status Deficiency: <20 ng/mL (50nmol/L) Insufficiency: 20-30 ng/mL (50-75 nmol/L) Sufficiency: 30-100 ng/mL (75-250 nmol/L) Toxicity: >100 ng/mL (>250 nmol/L) Performed By: #### L 501.5200, L501.77828, L501.9520, L3380.5600, L500.4050, L3380.9100, L503.0106, L100.0100, L503.6550, L503.6030, L506.0400, L500.4100, L506.1001 ####[facility] [address] [place], [place], [id number] Lipid Profileon 11-07-2024 CHOL:HDL 3.76 Normal [facility] Comment on above: Performed By: #### L 501.5200, L501.20630, L501.9520, L3380.5600, L500.4050, L3380.9100, L503.0106, L100.0100, L503.6550, L503.6030, L506.0400, L500.4100, L506.1001 ####[facility] [address] [place], [place], [phone] Cholesterol [Mass/Vol] 202 mg/dL High <=200 [facility] Comment on above: Result Comment: Chol esterol level, Desirable <200 mg/dL Borderline high cholesterol 200-239 mg/dL High cholesterol >=240 mg/dL Recommendations of the NCEP Adult Treatment Panel for the following risk-cutoff thresholds for the [place] population. Performed By: #### L 501.5200, L501.32727, L501.9520, L3380.5600, L500.4050, L3380.9100, L503.0106, L100.0100, L503.6550, L503.6030, L506.0400, L500.4100, L506.1001 ####[facility] [address] [place], [place], [id number] Cholesterol in HDL [Mass/Vol] 54 mg/dL Normal [facility] Comment on above: Result Comment: Reyna onal Cholesterol Education Program (NCEP) guidelines: <40 mg/dL: Low HDL-cholesterol (major risk factor for CHD) >= 60 mg/dL: High HDL-cholesterol (negative risk factor for CHD) HDL-cholesterol is affected by a number of factors, e.g. smoking, exercise, hormones, sex and age. Performed By: #### L 501.5200, L501.48928, L501.9520, L3380.5600, L500.4050, L3380.9100, L503.0106, L100.0100, L503.6550, L503.6030, L506.0400, L500.4100, L506.1001 ####[facility] [address] [place], [place], [phone]) Cholesterol in LDL [Mass/Vol] 127 mg/dL Normal [facility] Comment on above: Result Comment: Bord mpotew=055-434 mg/dL Higher Mzmg=570 mg/dL or greater Performed By: #### L 501.5200, L501.48049, L501.9520, L3380.5600, L500.4050, L3380.9100, L503.0106, L100.0100, L503.6550, L503.6030, L506.0400, L500.4100, L506.1001 ####[facility] [address] [place], [place], [phone]) Cholesterol in VLDL [Mass/Vol] 21 mg/dL Normal 5-40 [facility] Comment on above: Performed By: #### L 501.5200, L501.98212, L501.9520, L3380.5600, L500.4050, L3380.9100, L503.0106, L100.0100, L503.6550, L503.6030, L506.0400, L500.4100, L506.1001 ####[facility] [address] [place], [address] Triglyceride [Mass/Vol] 105 mg/dL Normal [facility] Comment on above: Result Comment: The drugs N-Acetylcysteine and Metamizole may falsely depress this assay. Normal range: <150 mg/dL Borderline High: 150-199 mg/dL High: 200-499 mg/dL Very High: >500 mg/dL Performed By: #### L 501.5200, L501.13292, L501.9520, L3380.5600, L500.4050, L3380.9100, L503.0106, L100.0100, L503.6550, L503.6030, L506.0400, L500.4100, L506.1001 ####[facility] [address] [place], [address] Magnesiumon 11-07-2024 Magnesium [Mass/Vol] 1.9 mg/dL Normal 1.5-2.2 [facility] Comment on above: Performed By: #### L 501.5200, L501.21131, L501.9520, L3380.5600, L500.4050, L3380.9100, L503.0106, L100.0100, L503.6550, L503.6030, L506.0400, L500.4100, L506.1001 ####[facility] [address] [place], [address] Thyroid Stim Hormone (TSH)on 11-07-2024 TSH 2.910 uIU/mL Normal 0.300-4.200 [facility] Comment on above: Performed By: #### L 501.5200, L501.77128, L501.9520, L3380.5600, L500.4050, L3380.9100, L503.0106, L100.0100, L503.6550, L503.6030, L506.0400, L500.4100, L506.1001 ####[facility] [address] [place], [place], [id number] MR/BMS.BPon 10-29-2024 MR/BMS.BP [facility] [address] [place] [address], [address] [place] [address] OFFICE VISIT Date of Service: 10/28/24 MR#: [id number] Acct: [id number] Name: CURLY COWART Rep #: [id number] : 1985 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 Normal [facility] Ankle min 3 Viewson 10-23-19 Ankle min 3 Views [facility] [address] [place] [address] Ankle min 3 Views MR#: [id number] Acct: [id number] Name: CURLY COWART Rep #: [id number] : 1985 F 39 From: Mackenzie Oneal i, MD PCP: JUNE Jeronimo Status: REG ER Study: Ankle min 3 Views Date of Exam: 10/23/24 Exam# [id number] Ordering Dr: Garry Conn DO PROCEDURE: ANKLE [...] of time, may consider MRI. Reading Location: [id number] CC: Dr. 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 Normal [facility] MR/BMS.BPon 09-30-2024 MR/BMS.BP [facility] [address] [facility], [address] [place] [address] OFFICE VISIT Date of Service: 09/24/24 MR#: [id number] Acct: [id number] Name: CURLY COWART Rep #: [id number] : 1985 Provider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 Normal [facility] Internal Medicine Office Vis chris 09-03-2024 Internal Medicine Office Visit [facility] [address] [place] [address] [place] [address] OFFICE VISIT Date of Service: 09/04/24 MR#: [id number] Acct: [id number] Name: CURLY COWART Rep #: [id number] : 1985 Provider: Dr. 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 Normal [facility] Inital Evaluation (1) - PTon 07-31-2024 Inital Evaluation (1) - PT [facility] Physical Therapy [facility] [address] [place] [address]. [address] [place] [address] / REHABILITATION SERVICES INITIAL EVALUATION MR#: [id number] Acct: [id number] Name: CURLY COWART Rep #: [id number] : 1985 39 From: Dnany Mclaughlin PT, Cert. MD [place], OCS Referring DrIglesia: JUNE Jeronimo Status: [facility] Insurance: [facility] SELF PAY INSURANCE Patient's Visit Information Visit Information Visit Information: CURLY COWART is a 39 year old F referred to Physical Therapy by JUNE Jeronimo with a diagnosis of CERVICALALGIA,LOW BACK PAIN WITH SCIATICA. Date of Evaluation: 07/31/24 Physical Therapist: Danny Mclaughlin PT, Cert MDT, OCS Visit Plan Frequency: 1x/Week Duration: 4 [...] to be FAXED BACK to us at [phone] for Medicare purposes. For Medicare only, by signing this I certify the plan of care. Please let me know if there are questions or concerns regarding this plan of care. Physician Signature: Date:__ 08/01/24 1316 CC: JUNE Jeronimo ADRIAN Signed Normal [facility] C reactive proteinon 07-11- 024 CRP [Mass/Vol] 0.89 mg/dL Normal <1.00 [facility] Comment on above: Performed By: #### 4 [id number] #### SHORT JUAN RAMON ([id number]) [facility] ([facility]) [address] [place] [address] C-Reactive Proteinon 07-11-2 024 CRP [Mass/Vol] 0.89 mg/dL NINF - 1.00 mg/dL [facility] CBC W Auto Differential pane l (Bld)on 07-11-2024 Basophils (Bld) [#/Vol] 0.01 10*3/uL [facility] Basophils/100 WBC (Bld) 0.1 % 0.0 - 2.0 % [facility] Eosinophils (Bld) [#/Vol] 0.15 10*3/uL [facility] Eosinophils/100 WBC (Bld) 1.6 % 0.0 - 6.0 % [facility] Erythrocyte distribution width (RBC) [Ratio] 13.5 % 11.5 - 14.5 % [facility] Hematocrit (Bld) [Volume fraction] 46.9 % High 36.0 - 46.0 % [facility] Hemoglobin (Bld) [Mass/Vol] 14.9 g/dL 12.0 - 16.0 g/dL [facility] Immature granulocytes (Bld) [#/Vol] 0.03 10*3/uL [facility] Immature granulocytes/100 WBC (Bld) 0.3 % 0.0 - 0.9 % [facility] Comment on above: Immature Granulocyte Count (IG) includes promyelocytes, myelocytes and metamyelocytes but does not include bands. Percent differential counts (%) should be interpreted in the context of the absolute cell counts (cells/UL). Interpretation and review of laboratory results Abnormal [facility] Lymphocytes (Bld) [#/Vol] 1.78 10*3/uL [facility] Lymphocytes/100 WBC (Bld) 19.1 % 13.0 - 44.0 % [facility] MCH (RBC) [Entitic mass] 27.7 pg 26.0 - 34.0 pg [facility] MCHC (RBC) [Mass/Vol] 31.8 g/dL Low 32.0 - 36.0 g/dL [facility] MCV (RBC) [Entitic vol] 87 fL 80 - 100 fL [facility] Monocytes (Bld) [#/Vol] 0.63 10*3/uL [facility] Monocytes/100 WBC (Bld) 6.8 % 2.0 - 10.0 % [facility] Neutrophils (Bld) [#/Vol] 6.72 10*3/uL [facility] Comment on above: Percent differential counts (%) should be interpreted in the context of the absolute cell counts (cells/uL). Neutrophils/100 WBC (Bld) 72.1 % 40.0 - 80.0 % [facility] Nucleated RBC/100 WBC (Bld) [Ratio] 0 % [facility] Platelets (Bld) [#/Vol] 231 10*3/uL [facility] RBC (Bld) [#/Vol] 5.38 10*6/uL [facility] WBC (Bld) [#/Vol] 9.3 10*3/uL [facility] Basophils (Bld) [#/Vol] 0.01 x10*3/uL Normal 0.00-0.10 [facility] Comment on above: Performed By: #### 4 537-7 #### DEJA DELATORRE ([id number]) [facility] ([facility]) [address] [place] [address] 44649 Basophils/100 WBC (Bld) 0.1 % Normal 0.0-2.0 [facility] Comment on above: Performed By: #### 4 537-7 #### DEJA DELATORRE ([id number]) [facility] ([facility]) [address] [place] [address] 84059 Eosinophils (Bld) [#/Vol] 0.15 x10*3/uL Normal 0.00-0.70 [facility] Comment on above: Performed By: #### 4 537-7 #### DEJA DELATORRE ([id number]) [facility] ([facility]) [address] [place] [address] 32447 Eosinophils/100 WBC (Bld) 1.6 % Normal 0.0-6.0 [facility] Comment on above: Performed By: #### 4 537-7 #### DEJA DELATORRE ([id number]) [facility] ([facility]) [address] [place] [address] 55607 Erythrocyte distribution width (RBC) [Ratio] 13.5 % Normal 11.5-14.5 [facility] Comment on above: Performed By: #### 4 537-7 #### DEJA DELATORRE ([id number]) [facility] ([facility]) [address] [place] [address] 26166 Hematocrit (Bld) [Volume fraction] 46.9 % High 36.0-46.0 [facility] Comment on above: Performed By: #### 4 537-7 #### DEJA DELATORRE ([id number]) [facility] ([facility]) [address] [place] [address] 74729 Hemoglobin (Bld) [Mass/Vol] 14.9 g/dL Normal 12.0-16.0 [facility] Comment on above: Performed By: #### 4 537-7 #### DEJA DELATORRE ([id number]) [facility] ([facility]) [address] [place] [address] 07463 Immature granulocytes (Bld) [#/Vol] 0.03 x10*3/uL Normal 0.00-0.70 [facility] Comment on above: Performed By: #### 4 537-7 #### DEJA DELATORRE ([id number]) [facility] ([facility]) [address] [place] [address] 73513 Immature granulocytes/100 WBC (Bld) 0.3 % Normal 0.0-0.9 [facility] Comment on above: Result Comment: Maria ture Granulocyte Count (IG) includes promyelocytes, myelocytes and metamyelocytes but does not include bands. Percent differential counts (%) should be interpreted in the context of the absolute cell counts (cells/UL). Performed By: #### 4 537-7 #### DEJA DELATORRE ([id number]) [facility] ([facility]) [address] [place] [address] 42957 Lymphocytes (Bld) [#/Vol] 1.78 x10*3/uL Normal 1.20-4.80 [facility] Comment on above: Performed By: #### 4 537-7 #### DEJA DELATORRE ([id number]) [facility] ([facility]) [address] [place] [address] 43079 Lymphocytes/100 WBC (Bld) 19.1 % Normal 13.0-44.0 [facility] Comment on above: Performed By: #### 4 537-7 #### DEJA DELATORRE ([id number]) [facility] ([facility]) [address] [place] [address] 49720 MCH (RBC) [Entitic mass] 27.7 pg Normal 26.0-34.0 [facility] Comment on above: Performed By: #### 4 537-7 #### DEJA DELATORRE ([id number]) [facility] ([facility]) [address] [place] [address] 98349 MCHC (RBC) [Mass/Vol] 31.8 g/dL Low 32.0-36.0 [facility] Comment on above: Performed By: #### 4 537-7 #### DEJA DELATORRE ([id number]) [facility] ([facility]) [address] [place] [address] 63853 MCV (RBC) [Entitic vol] 87 fL Normal 80-100 [facility] Comment on above: Performed By: #### 4 537-7 #### DEJA DELATORRE ([id number]) [facility] ([facility]) [address] [place] [address] 00908 Monocytes (Bld) [#/Vol] 0.63 x10*3/uL Normal 0.10-1.00 [facility] Comment on above: Performed By: #### 4 537-7 #### DEJA DELATORRE ([id number]) [facility] ([facility]) [address] [place] [address] 77977 Monocytes/100 WBC (Bld) 6.8 % Normal 2.0-10.0 [facility] Comment on above: Performed By: #### 4 537-7 #### DEJA DELATORRE ([id number]) [facility] ([facility]) [address] [place] [address] 36707 Neutrophils (Bld) [#/Vol] 6.72 x10*3/uL Normal 1.20-7.70 [facility] Comment on above: Result Comment: Perc ent differential counts (%) should be interpreted in the context of the absolute cell counts (cells/uL). Performed By: #### 4 537-7 #### DEJA DELATORRE ([id number]) [facility] ([facility]) [address] [place] [address] 29685 Neutrophils/100 WBC (Bld) 72.1 % Normal 40.0-80.0 [facility] Comment on above: Performed By: #### 4 537-7 #### DEJA DELATORRE ([id number]) [facility] ([facility]) [address] [place] [address] 48613 Nucleated RBC/100 WBC (Bld) [Ratio] 0.0 /100 WBCs Normal 0.0-0.0 [facility] Comment on above: Performed By: #### 4 537-7 #### DEJA DELATORRE ([id number]) [facility] ([facility]) [address] [place] [address] 15144 Platelets (Bld) [#/Vol] 231 x10*3/uL Normal 150-450 [facility] Comment on above: Performed By: #### 4 537-7 #### DEJA DELATORRE ([id number]) [facility] ([facility]) [address] [place] [address] 24880 RBC (Bld) [#/Vol] 5.38 x10*6/uL High 4.00-5.20 [facility] Comment on above: Performed By: #### 4 537-7 #### DEJA DELATORRE ([id number]) [facility] ([facility]) [address] [place] [address] 28346 WBC (Bld) [#/Vol] 9.3 x10*3/uL Normal 4.4-11.3 [facility] Comment on above: Performed By: #### 4 537-7 #### DEJA DELATORRE ([id number]) [facility] ([facility]) [address] [place] [address] 94853 CRP [Mass/Vol]on 07-11-2024 Interpretation and review of laboratory results Normal [facility] Cyclic citrullinated peptide Ab.IgGon 07-11-2024 Cyclic citrullinated peptide IgG Qn <1 Normal <3 [facility] Comment on above: Order Comment: THE T [...] By: #### 4 537-7 #### DEJA DELATORRE ([id number]) [facility] ([facility]) [address] [place] [address] ESR Westergren method (Bld) [Velocity]on 07-11-2024 ESR (Bld) [Velocity] 32 mm/h High 0 - 20 mm/h [facility] Interpretation and review of laboratory results Abnormal [facility] ESR (Bld) [Velocity] 32 mm/h High 0-20 [facility] Comment on above: Performed By: #### 4 537-7 #### DEJA DELATORRE ([id number]) [facility] ([facility]) [address] [place] [address] Extractable nuclear Ab panel (S)on 07-11-2024 Centromere protein B Ab Qn (S) <0.2 Normal <1.0 [facility] Comment on above: Result Comment: < 1. 0 = NEGATIVE >=1.0 = POSITIVE Performed By: #### 4 537-7 #### DEJA DELATORRE ([id number]) [facility] ([facility]) [address] [place], [place] [id number] Chromatin Ab Qn <0.2 Normal <1.0 [facility] Comment on above: Result Comment: < 1. 0 = NEGATIVE >=1.0 = POSITIVE Performed By: #### 4 537-7 #### DEJA DELATORRE ([id number]) [facility] ([facility]) [address] [place], [place] [address] DNA double strand Ab Qn (S) [IU]/mL Normal <5.0 [facility] Comment on above: Result Comment: NEGA TIVE: <= 4 IU/ML EQUIVOCAL: 5- 9 IU/ML POSITIVE: >=10 IU/ML Performed By: #### 4 537-7 #### DEJA DELATORRE ([id number]) [facility] ([facility]) [address] [place] [address] Padmini-1 extractable nuclear Ab IA Ql (S) <0.2 Normal <1.0 [facility] Comment on above: Result Comment: < 1. 0 = NEGATIVE >=1.0 = POSITIVE Performed By: #### 4 537-7 #### DEJA DELATORRE ([id number]) [facility] ([facility]) [address] [place] [address] Ribonucleoprotein extractable nuclear Ab IA Qn (S) 0.2 AI Normal <1.0 [facility] Comment on above: Result Comment: < 1. 0 = NEGATIVE >=1.0 = POSITIVE Performed By: #### 4 537-7 #### DEJA DELATORRE ([id number]) [facility] ([facility]) [address] [place] [address] Ribosomal P Ab Qn (S) <0.2 Normal <1.0 [facility] Comment on above: Result Comment: < 1. 0 = NEGATIVE >=1.0 = POSITIVE Performed By: #### 4 537-7 #### DEJA DELATORRE ([id number]) [facility] ([facility]) [address] [place] [address] SCL-70 extractable nuclear Ab IA Ql (S) <0.2 Normal <1.0 [facility] Comment on above: Result Comment: < 1. 0 = NEGATIVE >=1.0 = POSITIVE Performed By: #### 4 537-7 #### DEJA DELATORRE ([id number]) [facility] ([facility]) [address] [place] [address] Sjogrens syndrome-A extractable nuclear Ab IA Qn (S) <0.2 Normal <1.0 [facility] Comment on above: Result Comment: < 1. 0 = NEGATIVE >=1.0 = POSITIVE Performed By: #### 4 537-7 #### DEJA DELATORRE ([id number]) [facility] ([facility]) [address] [place] [address] 34352 Sjogrens syndrome-B extractable nuclear Ab IA Qn (S) <0.2 Normal <1.0 [facility] Comment on above: Result Comment: < 1. 0 = NEGATIVE >=1.0 = POSITIVE Performed By: #### 4 537-7 #### DEJA DELATORRE ([id number]) [facility] ([facility]) [address] [place] [address] 14790 Gillis extractable nuclear Ab IA Qn (S) <0.2 Normal <1.0 [facility] Comment on above: Result Comment: < 1. 0 = NEGATIVE >=1.0 = POSITIVE Performed By: #### 4 537-7 #### DEJA DELATORRE ([id number]) [facility] ([facility]) [address] [place] [address] Gillis extractable nuclear Ab+Ribonucleoprotein extractable nuclear Ab IA Ql (S) <0.2 Normal <1.0 [facility] Comment on above: Result Comment: < 1. 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 Performed By: #### 4 537-7 #### DEJA DELATORRE ([id number]) [facility] ([facility]) [address] [place] [address] 10174 Nuclear Ab Hep2 substrate Ql (S)on 07-11-2024 FERNANDO PATTERN Homogeneous Normal [facility] Comment on above: Performed By: #### 4 537-7 #### DEJA DELATORRE ([id number]) [facility] ([facility]) [address] [place] [address] 68556 Nuclear Ab IF (S) [Titer] 1:80 Normal [facility] Comment on above: Performed By: #### 4 537-7 #### DEJA DELATORRE ([id number]) [facility] ([facility]) [address] [place] [address] Rheumatoid Factoron 07-11-20 24 Rheumatoid factor Nephelometry Qn (S) [facility] Rheumatoid factoron 07-11-20 24 Rheumatoid factor Nephelometry Qn (S) <10 Normal 0-15 [facility] Comment on above: Performed By: #### 4 537-7 #### DEJA DELATORRE ([id number]) [facility] ([facility]) [address] [place] [address] Rheumatoid factor Nephelomet ry Qn (S)on 07-11-2024 Interpretation and review of laboratory results Normal [facility] XR CERVICAL SPINE 2-3 VIEWSo n 07-11-2024 XR CERVICAL SPINE 2-3 VIEWS Interpreted By: Priya Michel, STUDY: Cervical spine, 3 views. INDICATION: Signs/Symptoms:cervica lgia. COMPARISON: None. ACCESSION NUMBER(S): [id number] ORDERING CLINICIAN: VARGAS MUJICA FINDINGS: Mild grade [...] Priya Michel 07/14/2024 5:50 AM Dictation workstation: [id number] Normal [facility] XR LUMBAR SPINE 2-3 VIEWSon 07-11-2024 XR LUMBAR SPINE 2-3 VIEWS Interpreted By: Priya Michel, STUDY: Lumbar spine, three views. INDICATION: Signs/Symptoms:low back pain. COMPARISON: None. ACCESSION NUMBER(S): [id number] ORDERING CLINICIAN: VARGAS MUJICA FINDINGS: Alignment is within normal limits. Disc heights are maintained. Mild L4-5 and L5-S1 facet joint arthropathy. Vertebral body heights are preserved. Posterior elements are intact. IMPRESSION: 1. Mild L4-5 and L5-S1 facet joint arthropathy. MACRO: None. Signed by: Priya Michel 07/14/2024 5:51 AM Dictation workstation: [id number] [facility] XR Foot - left AP and Latera l and obliqueon 06-07-2024 IMPRESSION: No acute osseous abnormality Zigzag Topstitcher: PSCB Transcribe Date/Time: Jun 07 2024 4:29P [...] No periarticular erosions. DIVISION OF RADIOLOGY Provider, [facility] - 06/07/2024 * * *Final Report* * [...] erosions. IMPRESSION IMPRESSION: No acute osseous abnormality Zigzag Topstitcher: PSCB Transcribe Date/Time: Jun 07 2024 4:29P Dictated by : WINNIE DINERO MD This examination was interpreted and the report reviewed and electronically signed by: WINNIE DINERO MD on Jun 07 2024 4:32PM EST [facility] Radiology Study observation (narrative) [facility] XR Foot - left AP and Latera l and obliqueOrdered By: [facility] Provider on 06-07-2024 [facility] XR Chest PA and Lateralon IMPRESSION: No acute radiographic abnormality. Zigzag Topstitcher: YUVAL Transcribe Date/Time: Apr 24 2024 4:15P Dictated by : AMI DAVENPORT MD This examination was interpreted and the report reviewed and electronically signed by: AMI DAVENPORT MD on Apr 24 2024 4:19PM [facility] DIVISION OF RADIOLOGY * * *Final Report* [...] soft tissues: Unremarkable. DIVISION OF RADIOLOGY Provider, [facility] - 04/24/2024 * * *Final Report* [...] Unremarkable. IMPRESSION IMPRESSION: No acute radiographic abnormality. Zigzag Topstitcher: YUVAL Transcribe Date/Time: Apr 24 2024 4:15P Dictated by : AMI DAVENPORT MD This examination was interpreted and the report reviewed and electronically signed by: AMI DAVENPORT MD on Apr 24 2024 4:19PM EST [facility] Radiology Study observation (narrative) [facility] XR Chest PA and LateralOrder ed By: [facility] Provider on 04-24-2024 [facility] Absolute lymphocyte countOrd ered By: Garry Conn on 10-19-2023 Lymphocytes Auto (Unsp spec) [#/Vol] 1.70 10*3/uL 0.83-4.51 [facility] Automated lymphocyte count a s percentage of total leukocytesOrdered By: Garry Conn on 10-19-2023 Lymphocytes/100 WBC Auto (Unsp spec) 25.5 % 19-41 [facility] Basophil percentageOrdered B y: Garry Conn on 10-19-2023 Basophils/100 WBC (Bld) 0.4 % 0-1 [facility] Chloride [Moles/Vol] 110 mmol/L 98-107 [facility] Eosinophils/100 WBC (Bld) 1.6 % 0-5 [facility] Glucose [Mass/Vol] 97 mg/dL 74-106 [facility] Hemoglobin (Bld) [Mass/Vol] 14.0 g/dL 12.0-15.0 [facility] Monocytes/100 WBC (Bld) 12.4 % 0-10 [facility] Neutrophils (Bld) [#/Vol] 4.0 10*3/uL 2.0-7.7 [facility] Neutrophils/100 WBC (Bld) 59.7 % 47-70 [facility] Potassium [Moles/Vol] 3.9 mmol/L 3.5-5.1 [facility] Sodium [Moles/Vol] 139 mmol/L 136-145 [facility] WBC (Bld) [#/Vol] 6.7 10*3/uL 4.4-11.0 [facility] Determination of erythrocyte mean corpuscular volume (MCV)Ordered By: Garry Conn on 10-19-2023 MCV (RBC) [Entitic vol] 86.5 fL 81-99 [facility] Erythrocyte distribution wid th ratioOrdered By: Garry Conn on 10-19-2023 Erythrocyte distribution width (RBC) [Ratio] 13.6 % 11.6-14.6 [facility] Erythrocyte distribution wid th standard deviationOrdered By: Garry Conn on 10-19-2023 Erythrocyte distribution width (RBC) [Entitic vol] 42.6 fL 35.1-43.9 [facility] Erythrocyte sedimentation ra teOrdered By: Garry Conn on 10-19-2023 ESR (Bld) [Velocity] 26 mm/h 0-30 [facility] Hematocrit Auto (Bld) [Volum e fraction]Ordered By: Garry Conn on 10-19-2023 Hematocrit (Bld) [Volume fraction] 42.9 % 37-47 [facility] Immature granulocytes/100 WB C Auto (Bld)Ordered By: Garry Conn on 10-19-2023 Immature granulocytes/100 WBC (Bld) 0.400 % 0.0-0.9 [facility] Comment on above: IG% - Immature Granu locytes (promyelocytes, myelocytes and metamyelocytes) > 1% indicates that a LEFT SHIFT is Present. Laboratory - Chemistry and C hemistry - challengeOrdered By: Garry Conn on 10-19-2023 CO2 [Moles/Vol] 26.0 mmol/L 21.0-32.0 [facility] Urea nitrogen/Creatinine [Mass ratio] 21.9 mg/mg 10-20 [facility] Laboratory - Hematology and Cell countsOrdered By: Garry Conn on 10-19-2023 MCH (RBC) [Entitic mass] 28.2 pg 27.0-32.0 [facility] MCHC (RBC) [Mass/Vol] 32.6 g/dL 32-36 [facility] Nucleated RBC/100 WBC (Bld) [Ratio] 0 % 0-5 [facility] Platelet mean volume (Bld) [Entitic vol] 11.6 fL 6.2-12.0 [facility] Platelets (Bld) [#/Vol] 173 10*3/uL 150-450 [facility] No Panel InformationOrdered By: Garry Conn on 10-19-2023 Estimated Creatinine Clearance Calc 166.54 ml/min [facility] Estimated GFR (MDRD) Amer 132 mL/min >60 [facility] Comment on above: GFR Calc Estimated GFR (MDRD) Non-Af Amer 109 mL/min >60 [facility] Comment on above: Non- GFR Calc RBC Auto (Bld) [#/Vol]Ordere d By: Garry Conn on 10-19-2023 RBC (Bld) [#/Vol] 4.96 10*6/uL 4.2-5.4 [facility] Serum or plasma calcium jimenez urement (mass/volume)Ordered By: Garry Conn on 10-19-2023 Calcium [Mass/Vol] 9.3 mg/dL 8.5-10.1 [facility] Serum or plasma creatinine m easurement (mass/volume)Ordered By: Garry Conn on 10-19-2023 Creatinine [Mass/Vol] 0.64 mg/dL 0.55-1.02 [facility] Comment on above: The validity of the calculated GFR & GFRAA in patients over 70 years has not been determined. Clinical correlation is essential. Serum or plasma urea nitroge n measurement (mass/volume)Ordered By: Garry Conn on 10-19-2023 Urea nitrogen [Mass/Vol] 14 mg/dL 7-18 [facility] Thin prep Papanicolaou smear with manual screeningOrdered By: Garry Conn on 10-19-2023 Thin prep Papanicolaou smear with manual screening 3 5-15 [facility] Basophil percentageOrdered B y: Anam Garcia on 10-03-2023 Chloride [Moles/Vol] 104 mmol/L 98-107 [facility] Glucose [Mass/Vol] 88 mg/dL 74-106 [facility] Hemoglobin (Bld) [Mass/Vol] 14.9 g/dL 12.0-15.0 [facility] Potassium [Moles/Vol] 3.7 mmol/L 3.5-5.1 [facility] Sodium [Moles/Vol] 135 mmol/L 136-145 [facility] WBC (Bld) [#/Vol] 10.3 10*3/uL 4.4-11.0 [facility] Determination of erythrocyte mean corpuscular volume (MCV)Ordered By: Anam Garcia on 10-03-2023 MCV (RBC) [Entitic vol] 86.3 fL 81-99 [facility] Erythrocyte distribution wid th ratioOrdered By: Anam Garcia on 10-03-2023 Erythrocyte distribution width (RBC) [Ratio] 13.2 % 11.6-14.6 [facility] Erythrocyte distribution wid th standard deviationOrdered By: Anamcarlos Garcia on 10-03-2023 Erythrocyte distribution width (RBC) [Entitic vol] 41.5 fL 35.1-43.9 [facility] Hematocrit Auto (Bld) [Volum e fraction]Ordered By: Anamcarlos Garcia on 10-03-2023 Hematocrit (Bld) [Volume fraction] 44.9 % 37-47 [facility] Laboratory - Chemistry and C hemistry - challengeOrdered By: Anam Garcia on 10-03-2023 CO2 [Moles/Vol] 29.0 mmol/L 21.0-32.0 [facility] Urea nitrogen/Creatinine [Mass ratio] 19.3 mg/mg 10-20 [facility] Laboratory - Hematology and Cell countsOrdered By: Anamcarlos Garcia on 10-03-2023 MCH (RBC) [Entitic mass] 28.7 pg 27.0-32.0 [facility] MCHC (RBC) [Mass/Vol] 33.2 g/dL 32-36 [facility] Platelet mean volume (Bld) [Entitic vol] 11.2 fL 6.2-12.0 [facility] Platelets (Bld) [#/Vol] 185 10*3/uL 150-450 [facility] No Panel InformationOrdered By: Anam Garcia on 10-03-2023 Troponin I High Sensitivity 6 pg/mL 3.0-54.0 [facility] Comment on above: Please Note: New Uri t Units and Gender Specific Reference Ranges. For more information see Policy Stat Procedure [facility] High Sensitivity Troponin (TNIH) and attachments. Estimated Creatinine Clearance Calc 158.86 ml/min [facility] Estimated GFR (MDRD) Amer 125 mL/min >60 [facility] Comment on above: GFR Calc Estimated GFR (MDRD) Non-Af Amer 103 mL/min >60 [facility] Comment on above: Non- GFR Calc RBC Auto (Bld) [#/Vol]Ordere d By: Anamcarlos Garcia on 10-03-2023 RBC (Bld) [#/Vol] 5.20 10*6/uL 4.2-5.4 [facility] Serum or plasma calcium jimenez urement (mass/volume)Ordered By: Anam Garcia on 10-03-2023 Calcium [Mass/Vol] 9.1 mg/dL 8.5-10.1 [facility] Serum or plasma creatinine m easurement (mass/volume)Ordered By: Anam Garcia on 10-03-2023 Creatinine [Mass/Vol] 0.67 mg/dL 0.55-1.02 [facility] Comment on above: The validity of the calculated GFR & GFRAA in patients over 70 years has not been determined. Clinical correlation is essential. Serum or plasma urea nitroge n measurement (mass/volume)Ordered By: Anamcarlos Garcia on 10-03-2023 Urea nitrogen [Mass/Vol] 13 mg/dL 7-18 [facility] Thin prep Papanicolaou smear with manual screeningOrdered By: Anamcarlos Garcia on 10-03-2023 Thin prep Papanicolaou smear with manual screening 2 5-15 [facility] 25-hydroxyvitamin D3 [Mass/V ol]on 09-25-2023 Interpretation and review of laboratory results Normal [facility] Deficiency: < 20 ng/ ml Insufficiency: 20-29 ng/ml Sufficiency: 30-100 ng/ml This assay accurately quantifies the sum of Vitamin D3, 25-Hydroxy and Vitamin D2,25-Hydroxy. [facility] C reactive proteinon 024 CRP [Mass/Vol] 0.71 mg/dL Normal <1.00 [facility] Comment on above: Performed By: #### 1 988-5 #### SHORT JUAN RAMON ([id number]) [facility] ([facility]) [address] [place] [address] C-Reactive Proteinon 024 CRP [Mass/Vol] 0.71 mg/dL NINF - 1.00 mg/dL [facility] CBC W Auto Differential pane l (Bld)on 09-25-2023 Basophils (Bld) [#/Vol] 0.03 10*3/uL [facility] Basophils/100 WBC (Bld) 0.4 % 0.0 - 2.0 % [facility] Eosinophils (Bld) [#/Vol] 0.10 10*3/uL [facility] Eosinophils/100 WBC (Bld) 1.2 % 0.0 - 6.0 % [facility] Erythrocyte distribution width (RBC) [Ratio] 13.4 % 11.5 - 14.5 % [facility] Hematocrit (Bld) [Volume fraction] 47.2 % High 36.0 - 46.0 % [facility] [facility] Hemoglobin (Bld) [Mass/Vol] 15.1 g/dL 12.0 - 16.0 g/dL [facility] Immature granulocytes (Bld) [#/Vol] 0.01 10*3/uL [facility] Immature granulocytes/100 WBC (Bld) 0.1 % 0.0 - 0.9 % [facility] Comment on above: Immature Granulocyte Count (IG) includes promyelocytes, myelocytes and metamyelocytes but does not include bands. Percent differential counts (%) should be interpreted in the context of the absolute cell counts (cells/UL). Interpretation and review of laboratory results Abnormal [facility] Lymphocytes (Bld) [#/Vol] 2.32 10*3/uL [facility] Lymphocytes/100 WBC (Bld) 28.2 % 13.0 - 44.0 % [facility] MCH (RBC) [Entitic mass] 28.3 pg 26.0 - 34.0 pg [facility] MCHC (RBC) [Mass/Vol] 32.0 g/dL 32.0 - 36.0 g/dL [facility] MCV (RBC) [Entitic vol] 88 fL 80 - 100 fL [facility] Monocytes (Bld) [#/Vol] 0.55 10*3/uL [facility] Monocytes/100 WBC (Bld) 6.7 % 2.0 - 10.0 % [facility] Neutrophils (Bld) [#/Vol] 5.22 10*3/uL [facility] Comment on above: Percent differential counts (%) should be interpreted in the context of the absolute cell counts (cells/uL). Neutrophils/100 WBC (Bld) 63.4 % 40.0 - 80.0 % [facility] Nucleated RBC/100 WBC (Bld) [Ratio] 0.0 % [facility] Platelets (Bld) [#/Vol] 208 10*3/uL [facility] RBC (Bld) [#/Vol] 5.34 10*6/uL [facility] WBC (Bld) [#/Vol] 8.2 10*3/uL [facility] Basophils (Bld) [#/Vol] 0.03 x10*3/uL Normal 0.00-0.10 [facility] Comment on above: Performed By: #### 5 7021-8 #### DEJA DELATORRE ([id number]) [facility] ([facility]) [address] [place] [address] 35793 Basophils/100 WBC (Bld) 0.4 % Normal 0.0-2.0 [facility] Comment on above: Performed By: #### 5 7021-8 #### DEJA DELATORRE ([id number]) [facility] ([facility]) [address] [place] [address] 04278 Eosinophils (Bld) [#/Vol] 0.10 x10*3/uL Normal 0.00-0.70 [facility] Comment on above: Performed By: #### 7021-8 #### DEJA DELATORRE ([id number]) [facility] ([facility]) [address] [place] [address] 94571 Eosinophils/100 WBC (Bld) 1.2 % Normal 0.0-6.0 [facility] Comment on above: Performed By: #### 5 7021-8 #### DEJA DELATORRE ([id number]) [facility] ([facility]) [address] [place] [address] 15260 Erythrocyte distribution width (RBC) [Ratio] 13.4 % Normal 11.5-14.5 [facility] Comment on above: Performed By: #### 7021-8 #### DEJA DELATORRE ([id number]) [facility] ([facility]) [address] [place] [address] 80156 Hematocrit (Bld) [Volume fraction] 47.2 % High 36.0-46.0 [facility] Comment on above: Performed By: #### 7021-8 #### DEJA DELATORRE ([id number]) [facility] ([facility]) [address] [place] [address] 22951 Hemoglobin (Bld) [Mass/Vol] 15.1 g/dL Normal 12.0-16.0 [facility] Comment on above: Performed By: #### 5 7021-8 #### DEJA DELATORRE ([id number]) [facility] ([facility]) [address] [place] [address] 68673 Immature granulocytes (Bld) [#/Vol] 0.01 x10*3/uL Normal 0.00-0.70 [facility] Comment on above: Performed By: #### 5 7021-8 #### DEJA DELATORRE ([id number]) [facility] ([facility]) [address] [place] [address] 51687 Immature granulocytes/100 WBC (Bld) 0.1 % Normal 0.0-0.9 [facility] Comment on above: Result Comment: Maria ture Granulocyte Count (IG) includes promyelocytes, myelocytes and metamyelocytes but does not include bands. Percent differential counts (%) should be interpreted in the context of the absolute cell counts (cells/UL). Performed By: #### 5 7021-8 #### DEJA DELATORRE ([id number]) [facility] ([facility]) [address] [place] [address] 87567 Lymphocytes (Bld) [#/Vol] 2.32 x10*3/uL Normal 1.20-4.80 [facility] Comment on above: Performed By: #### 5 7021-8 #### DEJA DELATORRE ([id number]) [facility] ([facility]) [address] [place] [address] 15447 Lymphocytes/100 WBC (Bld) 28.2 % Normal 13.0-44.0 [facility] Comment on above: Performed By: #### 5 7021-8 #### DEJA DELATORRE ([id number]) [facility] ([facility]) [address] [place] [address] 62845 MCH (RBC) [Entitic mass] 28.3 pg Normal 26.0-34.0 [facility] Comment on above: Performed By: #### 5 7021-8 #### DEJA DELATORRE ([id number]) [facility] ([facility]) [address] [place] [address] 35032 MCHC (RBC) [Mass/Vol] 32.0 g/dL Normal 32.0-36.0 [facility] Comment on above: Performed By: #### 5 7021-8 #### DEJA DELATORRE ([id number]) [facility] ([facility]) [address] [place] [address] 75538 MCV (RBC) [Entitic vol] 88 fL Normal 80-100 [facility] Comment on above: Performed By: #### 5 7021-8 #### DEJA DELATORRE ([id number]) [facility] ([facility]) [address] [place] [address] 97209 Monocytes (Bld) [#/Vol] 0.55 x10*3/uL Normal 0.10-1.00 [facility] Comment on above: Performed By: #### 5 7021-8 #### DEJA DELATORRE ([id number]) [facility] ([facility]) [address] [place] [address] 34650 Monocytes/100 WBC (Bld) 6.7 % Normal 2.0-10.0 [facility] Comment on above: Performed By: #### 5 7021-8 #### DEJA DELATORRE ([id number]) [facility] ([facility]) [address] [place] [address] 33798 Neutrophils (Bld) [#/Vol] 5.22 x10*3/uL Normal 1.20-7.70 [facility] Comment on above: Result Comment: Perc ent differential counts (%) should be interpreted in the context of the absolute cell counts (cells/uL). Performed By: #### 5 7021-8 #### DEJA DELATORRE ([id number]) [facility] ([facility]) [address] [place] [address] 24570 Neutrophils/100 WBC (Bld) 63.4 % Normal 40.0-80.0 [facility] Comment on above: Performed By: #### 5 7021-8 #### DEJA DELATORRE ([id number]) [facility] ([facility]) [address] [place] [address] 82584 Nucleated RBC/100 WBC (Bld) [Ratio] 0.0 /100 WBCs Normal 0.0-0.0 [facility] Comment on above: Performed By: #### 5 7021-8 #### DEJA DELATORRE ([id number]) [facility] ([facility]) [address] [place] [address] 03013 Platelets (Bld) [#/Vol] 208 x10*3/uL Normal 150-450 [facility] Comment on above: Performed By: #### 5 7021-8 #### DEJA DELATORRE ([id number]) [facility] ([facility]) [address] [place] [address] 70569 RBC (Bld) [#/Vol] 5.34 x10*6/uL High 4.00-5.20 [facility] Comment on above: Performed By: #### 5 7021-8 #### DEJA DELATORRE ([id number]) [facility] ([facility]) [address] [place] [address] 03591 WBC (Bld) [#/Vol] 8.2 x10*3/uL Normal 4.4-11.3 [facility] Comment on above: Performed By: #### 5 7021-8 #### DEJA DELATORRE ([id number]) [facility] ([facility]) [address] [place] [address] 56233 Calcidiolon 09-25-2023 25-hydroxyvitamin D3 [Mass/Vol] 38 ng/mL Normal 30-100 [facility] Comment on above: Order Comment: Defic iency: < 20 ng/mlInsufficiency: 20-29 ng/mlSufficiency: 30-100 ng/mlThis assay accurately quantifies the sum of Vitamin D3, 25-Hydroxy and Vitamin D2,25-Hydroxy. Performed By: #### 4 537-7 #### DEJA DELATORRE ([id number]) [facility] ([facility]) [address] [place] [address] 50551 Cobalamin (Vitamin B12) [Mas s/Vol]on 09-25-2023 Interpretation and review of laboratory results Normal [facility] Cobalaminson 09-25-2023 Cobalamin (Vitamin B12) [Mass/Vol] 534 pg/mL Normal 211-911 [facility] Comment on above: Performed By: #### 4 537-7 #### SHORT JUAN RAMON ([id number]) [facility] ([facility]) [address] [place] [address] Comprehensive metabolic 2000 panelon 09-25-2023 Albumin BCP dye [Mass/Vol] 4.3 g/dL 3.4 - 5.0 g/dL [facility] ALP [Catalytic activity/Vol] 111 U/L High 33 - 110 U/L [facility] ALT With P-5'-P [Catalytic activity/Vol] 46 U/L High 7 - 45 U/L [facility] Comment on above: Patients treated wit h Sulfasalazine may generate falsely decreased results for ALT. Anion gap [Moles/Vol] 10 mmol/L 10 - 2 0 mmol/L [facility] AST With P-5'-P [Catalytic activity/Vol] 38 U/L 9 - 39 U/L [facility] Bilirubin [Mass/Vol] 0.6 mg/dL 0.0 - 1 .2 mg/dL [facility] Calcium [Mass/Vol] 9.6 mg/dL 8.6 - 10. 3 mg/dL [facility] Chloride [Moles/Vol] 104 mmol/L 98 - 10 7 mmol/L [facility] CO2 [Moles/Vol] 30 mmol/L 21 - 32 mmol/L [facility] Creatinine [Mass/Vol] 0.67 mg/dL 0.50 - 1.05 mg/dL [facility] eGFR - PINF [facility] Comment on above: Calculations of colette mated GFR are performed using the 2020 CKD-EPI Study Refit equation without the race variable for the IDMS-Traceable creatinine methods. https://jasn.asnjournals.org/content//ASN.498368 8030 Glucose [Mass/Vol] 85 mg/dL 74 - 99 mg/dL [facility] Potassium [Moles/Vol] 4.0 mmol/L 3.5 - 5.3 mmol/L [facility] Protein [Mass/Vol] 7.6 g/dL 6.4 - 8.2 g/dL [facility] Sodium [Moles/Vol] 140 mmol/L 136 - 145 mmol/L [facility] Urea nitrogen [Mass/Vol] 13 mg/dL 6 - 23 mg/dL [facility] Albumin BCP dye [Mass/Vol] 4.3 g/dL Normal 3.4-5.0 [facility] Comment on above: Performed By: #### 2 4323-8 #### DEJA DELATORRE ([id number]) [facility] ([facility]) [address] [place] [address] ALP [Catalytic activity/Vol] 111 U/L High 33-110 [facility] Comment on above: Performed By: #### 2 4323-8 #### DEJA DELATORRE ([id number]) [facility] ([facility]) [address] [place] [address] 30289 ALT With P-5'-P [Catalytic activity/Vol] 46 U/L High 7-45 [facility] Comment on above: Result Comment: Vicenta ents treated with Sulfasalazine may generate falsely decreased results for ALT. Performed By: #### 2 4323-8 #### DEJA DELATORRE ([id number]) [facility] ([facility]) [address] [place] [address] 95288 Anion gap [Moles/Vol] 10 mmol/L Normal 10-20 [facility] Comment on above: Performed By: #### 2 4323-8 #### DEJA DELATORRE ([id number]) [facility] ([facility]) [address] [place] [address] 54994 AST With P-5'-P [Catalytic activity/Vol] 38 U/L Normal 9-39 [facility] Comment on above: Performed By: #### 2 4323-8 #### DEJA DELATORRE ([id number]) [facility] ([facility]) [address] [place] [address] 35137 Bilirubin [Mass/Vol] 0.6 mg/dL Normal 0.0-1.2 [facility] Comment on above: Performed By: #### 2 4323-8 #### DEJA DELATORRE ([id number]) [facility] ([facility]) [address] [place] [address] Calcium [Mass/Vol] 9.6 mg/dL Normal 8.6-10.3 [facility] Comment on above: Performed By: #### 2 4323-8 #### DEJA DELATORRE ([id number]) [facility] ([facility]) [address] [place] [address] Chloride [Moles/Vol] 104 mmol/L Normal 98-107 [facility] Comment on above: Performed By: #### 2 4323-8 #### DEJA DELATORRE ([id number]) [facility] ([facility]) [address] [place] [address] 46398 CO2 [Moles/Vol] 30 mmol/L Normal 21-32 [facility] Comment on above: Performed By: #### 2 4323-8 #### DEJA DELATORRE ([id number]) [facility] ([facility]) [address] [place] [address] Creatinine [Mass/Vol] 0.67 mg/dL Normal 0.50-1.05 [facility] Comment on above: Performed By: #### 2 4323-8 #### DEJA DELATORRE ([id number]) [facility] ([facility]) [address] [place] [address] 12312 GFR/1.73 sq M.predicted MDRD (S/P/Bld) [Vol rate/Area] mL/min/{1.73_m2} Normal >60 [facility] Comment on above: Result Comment: Calc ulations of estimated GFR are performed using the 2020 CKD-EPI Study Refit equation without the race variable for the IDMS-Traceable creatinine methods. https://jasn.asnjournals.org/content//ASN.381022 0969 Performed By: #### 2 4323-8 #### DEJA DELATORRE ([id number]) [facility] ([facility]) [address] [place] [address] 63845 Glucose [Mass/Vol] 85 mg/dL Normal 74-99 [facility] Comment on above: Performed By: #### 2 4323-8 #### DEJA DELATORRE ([id number]) [facility] ([facility]) [address] [place] [address] 73590 Potassium [Moles/Vol] 4.0 mmol/L Normal 3.5-5.3 [facility] Comment on above: Performed By: #### 2 4323-8 #### DEJA DELATORRE ([id number]) [facility] ([facility]) [address] [place] [address] 11135 Protein [Mass/Vol] 7.6 g/dL Normal 6.4-8.2 [facility] Comment on above: Performed By: #### 2 432-8 #### DEJA DELATORRE ([id number]) [facility] ([facility]) [address] [place] [address] 28545 Sodium [Moles/Vol] 140 mmol/L Normal 136-145 [facility] Comment on above: Performed By: #### 2 4323-8 #### DEJA DELATORRE ([id number]) [facility] ([facility]) [address] [place] [address] 55646 Urea nitrogen [Mass/Vol] 13 mg/dL Normal 6-23 [facility] Comment on above: Performed By: #### 2 4323-8 #### DEJA DELATORRE ([id number]) [facility] ([facility]) [address] [place] [address] 19472 ESR Westergren method (Bld) [Velocity]on 09-25-2023 ESR (Bld) [Velocity] 11 mm/h 0 - 20 mm/h [facility] Interpretation and review of laboratory results Normal [facility] ESR (Bld) [Velocity] 11 mm/h Normal 0-20 [facility] Comment on above: Performed By: #### 4 537-7 #### DEJA DELATORRE ([id number]) [facility] ([facility]) [address] [place] [address] Ferritinon 09-25-2023 Ferritin [Mass/Vol] 129 ng/mL 8 - 150 ng/mL [facility] Ferritin [Mass/Vol] 129 ng/mL Normal 8-150 [facility] Comment on above: Performed By: #### 2 276-4 #### DEJA DELATORRE ([id number]) [facility] ([facility]) [address] [place] [address] Free T4 [Mass/Vol]on 024 Interpretation and review of laboratory results Normal [facility] Thyroxine Free testi ng is performed using different testing methodology at [facility] than at other [facility]. Direct result comparisons should only be made within the same method. Biotin can cause falsely elevated free T4 results. Patients taking a Biotin dose of up to 10 mg/day should refrain from taking Biotin for 24 hours before sample collection. Patient taking a Biotin dose of >10 mg/day should consult with their physician or the laboratory before the blood draw. [facility] HbA1c (Bld) [Mass fraction]o n 09-25-2023 Average glucose Estimated from glycated hemoglobin (Bld) [Mass/Vol] 88 mg/dL Normal Not Established [facility] Comment on above: Order Comment: Diagn osis of Rspnkogb-DolifzBcq-Ttgpikbj: < or = 5.6%Increased risk for developing diabetes: 5.7-6.4%Diagnostic of diabetes: > or = 6.5%Monitoring of DiabetesAge (y)....................... Therapeutic Goal (%)Adults: >18.........................<7.0Pediatrics: 13-18...................<7.5Pediatrics: 7-12....................<8.0Pediatrics: 0-6..................... 7.5-8.5American Diabetes Association. Diabetes Care 33(S1)Aug 2009 Performed By: #### 4 537-7 #### DEJA DELATORRE ([id number]) [facility] ([facility]) [facility] [place] [id number] Hemoglobin A1c/Hemoglobin.to donald 09-25-2023 HbA1c (Bld) [Mass fraction] 4.7 % Normal see below [facility] Comment on above: Order Comment: Diagn osis of Vrafqkow-AswpzqVsg-Hmkrhtvz: < or = 5.6%Increased risk for developing diabetes: 5.7-6.4%Diagnostic of diabetes: > or = 6.5%Monitoring of DiabetesAge (y)....................... Therapeutic Goal (%)Adults: >18.........................<7.0Pediatrics: 13-18...................<7.5Pediatrics: 7-12....................<8.0Pediatrics: 0-6..................... 7.5-8.5American Diabetes Association. Diabetes Care 33(S1)Aug 2009 Performed By: #### 4 537-7 #### DEJA DELATORRE ([id number]) [facility] ([facility]) [facility] [place] [id number] Iron and Iron binding capaci ty panelon 09-25-2023 Iron [Mass/Vol] 90 ug/dL 35 - 150 ug/dL [facility] Iron binding capacity [Mass/Vol] 318 ug/dL 240 - 445 ug/dL [facility] Iron binding capacity.unsaturated [Mass/Vol] 228 ug/dL 110 - 370 ug/dL [facility] Iron saturation [Mass fraction] 28 % 25 - 45 % [facility] Iron [Mass/Vol] 90 ug/dL Normal 35-150 [facility] Comment on above: Performed By: #### 5 0190-8 #### DEJA DELATORRE ([id number]) [facility] ([facility]) [address] [place] [address] 40976 Iron binding capacity [Mass/Vol] 318 ug/dL Normal 240-445 [facility] Comment on above: Performed By: #### 5 0190-8 #### DEJA DELATORRE ([id number]) [facility] ([facility]) [address] [place] [address] 26604 Iron binding capacity.unsaturated [Mass/Vol] 228 ug/dL Normal 110-370 [facility] Comment on above: Performed By: #### 5 0190-8 #### DEJA DELATORRE ([id number]) [facility] ([facility]) [address] [place] [address] 55823 Iron saturation [Mass fraction] 28 % Normal 25-45 [facility] Comment on above: Performed By: #### 5 0190-8 #### DEJA DELATORRE ([id number]) [facility] ([facility]) [address] [place] [address] 15105 Lipid 1996 panelon 4 Cholesterol [Mass/Vol] 218 mg/dL High 0 - 199 mg/dL [facility] Comment on above: Age Desirable Borderline [...] dosing. Cholesterol in HDL [Mass/Vol] 52.0 mg/dL [facility] Comment on above: Age Very Low Low Normal High 0-19 Y < 35 < 40 40-45 ---- 20-24 Y ---- < 40 >45 ---- >24 Y ---- < 40 40-60 >60 Cholesterol in LDL [Mass/Vol] 147 mg/dL High NINF - 99 mg/dL [facility] Comment on above: Near Borderline AGE Desirable Optimal High High Very High 0-19 Y 0 - 109 --- 110-129 >/= 130 ---- 20-24 Y 0 - 119 --- 120-159 >/= 160 ---- >24 Y 0 - 99 100-129 130-159 160-189 >/=190 Cholesterol in VLDL [Mass/Vol] 19 mg/dL 0 - 40 mg/dL [facility] Cholesterol.total/Cho lesterol in HDL [Mass ratio] 4.2 {ratio} [facility] Comment on above: Ref Values Desirable < 3.4 High Risk > 5.0 Non HDL Cholesterol 166 mg/dL High 0 - 149 mg/dL [facility] on above: Age Desirable Borderline High High Very High 0-19 Y 0 - 119 120 - 144 >/= 145 >/= 160 20-24 Y 0 - 149 150 - 189 >/= 190 ---- >24 Y 30 mg/dL above LDL Cholesterol goal Triglyceride [Mass/Vol] 97 mg/dL 0 - 149 mg/dL [facility] Comment on above: Age Desirable Borderline [...] dosing. Cholesterol [Mass/Vol] 218 mg/dL High 0-199 [facility] Comment on above: Result Comment: Age [...] By: #### 2 4331-1 #### DEJA DELATORRE ([id number]) [facility] ([facility]) [facility] [place] [address] Cholesterol in HDL [Mass/Vol] 52.0 mg/dL Normal [facility] Comment on above: Result Comment: Age Very Low Low Normal High 0-19 Y < 35 < 40 40-45 ---- 20-24 Y ---- < 40 >45 ---- >24 Y ---- < 40 40-60 >60 Performed By: #### 2 4331-1 #### DEJA DELATORRE ([id number]) [facility] ([facility]) [address] [place] [address] 68756 Cholesterol in LDL [Mass/Vol] 147 mg/dL High <=99 [facility] Comment on above: Result Comment: Near Borderline AGE Desirable Optimal High High Very High 0-19 Y 0 - 109 --- 110-129 >/= 130 ---- 20-24 Y 0 - 119 --- 120-159 >/= 160 ---- >24 Y 0 - 99 100-129 130-159 160-189 >/=190 Performed By: #### 2 4331-1 #### DEJA DELATORRE ([id number]) [facility] ([facility]) [address] [place] [address] 67531 Cholesterol in VLDL [Mass/Vol] 19 mg/dL Normal 0-40 [facility] Comment on above: Performed By: #### 2 4331-1 #### DEJA DELATORRE ([id number]) [facility] ([facility]) [address] [place] [address] 66107 CHOLESTEROL/HDL RATIO 4.2 Normal [facility] Comment on above: Result Comment: Ref Values Desirable < 3.4 High Risk > 5.0 Performed By: #### 2 4331-1 #### DEJA DELATORRE ([id number]) [facility] ([facility]) [address] [place] [address] NON HDL CHOLESTEROL 166 mg/dL High 0-149 [facility] Comment on above: Result Comment: Age Desirable Borderline High High Very High 0-19 Y 0 - 119 120 - 144 >/= 145 >/= 160 20-24 Y 0 - 149 150 - 189 >/= 190 ---- >24 Y 30 mg/dL above LDL Cholesterol goal Performed By: #### 2 4331-1 #### DEJA DELATORRE ([id number]) [facility] ([facility]) [facility] [place] [address] Triglyceride [Mass/Vol] 97 mg/dL Normal 0-149 [facility] Comment on above: Result Comment: Age [...] By: #### 2 4331-1 #### DEJA DELATORRE ([id number]) [facility] ([facility]) [address] [place], [place] [phone] Magnesiumon 09-25-2023 Magnesium [Mass/Vol] 1.89 mg/dL 1.60 - 2.40 mg/dL [facility] Magnesium [Mass/Vol] 1.89 mg/dL Normal 1.60-2.40 [facility] Comment on above: Performed By: #### 1 9123-9 #### DEJA DELATORRE ([id number]) [facility] ([facility]) [address] [place], [place] [phone] No Panel Informationon 09-25 Interpretation and review of laboratory results Normal [facility] Interpretation and review of laboratory results Abnormal [facility] Interpretation and review of laboratory results Normal [facility] TSH Qnon 09-25-2023 Interpretation and review of laboratory results Normal [facility] TSH testing is performed using different testing methodology at [facility] than at other [facility]. Direct result comparisons should only be made within the same method. [facility] Thyroid Stimulating Hormoneo n 09-25-2023 TSH Qn 2.66 m[IU]/L [facility] Thyrotropinon 09-25-2023 TSH Qn 2.66 m[IU]/L Normal 0.44-3.98 [facility] Comment on above: Order Comment: TSH t esting is performed using different testing methodology at [facility] than at other [facility]. Direct result comparisons should only be made within the same method. Performed By: #### 3 016-3 #### DEJA DELATORRE ([id number]) [facility] ([facility]) [address] [place] [address] Thyroxine, Freeon 09-25-2023 Free T4 [Mass/Vol] 0.84 ng/dL 0.61 - 1. 12 ng/dL [facility] Thyroxine.freeon 09-25-2023 Free T4 [Mass/Vol] 0.84 ng/dL Normal 0.61-1.12 [facility] Comment on above: Order Comment: Thyro xine Free testing is performed using different testing methodology at [facility] than at other [facility]. Direct result comparisons should only [...] By: #### 3 [id number] #### DEJA DELATORRE ([id number]) [facility] ([facility]) [address] [place] [address] Vitamin B12on 09-25-2023 Cobalamin (Vitamin B12) [Mass/Vol] 534 pg/mL 211 - 911 pg/mL [facility] Vitamin D 25-Hydroxy,Total ( for eval of Vitamin D levels)on 09-25-2023 25-hydroxyvitamin D3 [Mass/Vol] 38 ng/mL 30 - 100 ng/mL [facility] LABORATORYOrdered By: SYSTEM SYSTEM on 05-15-2023 [...] COMPLIANCEon 02-14-2023 6-ACETYLMORPHINE <25 Normal Cutoff <25 [facility] Comment on above: Performed By: #### D SBOP #### [facility] [address] [place] [id number] 7-AMINOCLONAZEPAM <25 Normal Cutoff <[address] [facility] Comment on above: Performed By: #### D SBOP #### [facility] [address] [place] [id number] ALPHA-HYDROXYALPRAZOL AM <25 Normal Cutoff <25 [facility] Comment on above: Performed By: #### D SBOP #### [facility] [address] [place] [id number] ALPHA-HYDROXYMIDAZOLA M <25 Normal Cutoff <25 [facility] Comment on above: Performed By: #### D SBOP #### [place] [address] [place] [address] ALPRAZOLAM <25 Normal Cutoff <25 [facility] Comment on above: Performed By: #### D SBOP #### [place] [address] [place] [address] CHLORDIAZEPOXIDE <25 Normal Cutoff <25 [facility] Comment on above: Performed By: #### D SBOP #### [facility] [address] [place] [address] CLONAZEPAM <25 Normal Cutoff <25 [facility] Comment on above: Performed By: #### D SBOP #### [facility] [address] [place] [address] CODEINE <50 Normal Cutoff <50 [facility] Comment on above: Performed By: #### D SBOP #### [facility] [address] [place] [address] DIAZEPAM <25 Normal Cutoff <25 [facility] Comment on above: Performed By: #### D SBOP #### [facility] [address] [place] [address] EDDP,U <25 Normal Cutoff <25 [facility] Comment on above: Result Comment: [...] Performed By: #### D SBOP #### [facility] [address] [place] [id number] FENTANYL CONFIRM,U <2.5 Normal Cutoff<2.5 [facility] Comment on above: Performed By: #### D SBOP #### [facility] [address] [place] [id number] HYDROCODONE <25 Normal Cutoff <25 [facility] Comment on above: Performed By: #### D SBOP #### [facility] [address] [place] [id number] HYDROMORPHONE <25 Normal Cutoff <25 [facility] Comment on above: Performed By: #### D SBOP #### [facility] [address] [place] [id number] LORAZEPAM >1000 Abnormal Cutoff <25 [facility] Comment on above: Result Comment: Cons istent with use of a drug containing lorazepam, such as Ativan. Performed By: #### D SBOP #### [facility] [address] [place] [address] METHADONE,U <25 Normal Cutoff <25 [facility] Comment on above: Performed By: #### D SBOP #### [facility] [address] [place] [address] MIDAZOLAM <25 Normal Cutoff <25 [facility] Comment on above: Performed By: #### D SBOP #### [facility] [address] [place] [id number] MORPHINE <50 Normal Cutoff <50 [facility] Comment on above: Performed By: #### D SBOP #### [facility] [address] [place] [id number] NORDIAZEPAM <25 Normal Cutoff <25 [facility] Comment on above: Performed By: #### D SBOP #### [facility] [address] [place] [id number] NORFENTANYL CONFIRM,U <2.5 Normal Cutoff<[address].5 [facility] Comment on above: Result Comment: The [...] Performed By: #### D SBOP #### [facility] [address] [place] [address] NORHYDROCODONE <25 Normal Cutoff <25 [facility] Comment on above: Performed By: #### D SBOP #### [facility] [address] [place] [address] NOROXYCODONE <25 Normal Cutoff <25 [facility] Comment on above: Performed By: #### D SBOP #### [facility] [address] [place] [address] O-DESMETHYLTRAMADOL,U <50 Normal Cutoff <50 [facility] Comment on above: Result Comment: The [...] Performed By: #### D SBOP #### [facility] [address] [place] [address] OXAZEPAM <25 Normal Cutoff <25 [facility] Comment on above: Performed By: #### D SBOP #### [facility] [address] [place] [address] OXYCODONE <25 Normal Cutoff <25 [facility] Comment on above: Performed By: #### D SBOP #### [facility] [address] [place] [address] OXYMORPHONE <25 Normal Cutoff <25 [facility] Comment on above: Result Comment: [...] testing. Performed By: #### D SBOP #### [facility] [address] [place] [address] TEMAZEPAM <25 Normal Cutoff <25 [facility] Comment on above: Result Comment: [...] Performed By: #### D SBOP #### [facility] [address] [place] [address] TRAMADOL CONFIRM,U <50 Normal Cutoff <50 [facility] Comment on above: Performed By: #### D SBOP #### [facility] [address] [place] [address] ZOLPIDEM METABOLITE[ZCA] ,U <25 Normal Cutoff <25 [facility] Comment on above: Result Comment: [...] Performed By: #### D SBOP #### [facility] [address] [place] [address] ZOLPIDEM,URINE <25 Normal Cutoff <25 [facility] Comment on above: Performed By: #### D SBOP #### [facility] [address] [place] [address] ANTI-DNA [DS]on 02-10-2023 ANTI-DNA [DS] <1.0 Normal [facility] Comment on above: Result Comment: REF VALUES NEGATIVE: <= 4 IU/ML EQUIVOCAL: 5- 9 IU/ML POSITIVE: >=10 IU/ML Performed By: #### D NADS #### [facility] [address] [place], [place] CITRULLINE ANTIBODYon 2022 CITRULLINE ANTIBODY <1 Normal [facility] Comment on above: Result Comment: THE TEST [...] Performed By: #### C ITAB #### [facility] [address] [place], [place] OPIATE/OPIOID/BENZO EXTENDED PRESCRIPTION COMPLIANCEon 02-10-2023 AMPHETAMINE SCREEN,U Negative Normal NEGATIVE [facility] Comment on above: Result Comment: CUTO FF LEVEL: 500 NG/ML Cross-reactivity has been reported with high concentrations of the following drugs: buproprion, chloroquine, chlorpromazine, ephedrine, mephentermine, fenfluramine, phentermine, phenylpropanolamine, pseudoephedrine, and propranolol. Performed By: #### D SBOP #### [facility] [address] [place] [address] BARBITURATES SCREEN,U Negative Normal NEGATIVE [facility] Comment on above: Result Comment: CUTO FF LEVEL: 200 NG/ML Performed By: #### D SBOP #### [facility] [address] [place] [address] CANNABINOIDS SCREEN,U Negative Normal NEGATIVE [facility] Comment on above: Result Comment: CUTO FF LEVEL: 50 NG/ML Performed By: #### D SBOP #### [facility] [address] [place] [address] COCAINE METABOLITE SCREEN,U Negative Normal NEGATIVE [facility] Comment on above: Result Comment: CUTO FF LEVEL: 150 NG/ML Performed By: #### D SBOP #### [facility] [address] [place] [address] Creatinine [Mass/Vol] 210.9 mg/dL Normal [facility] Comment on above: Result Comment: A ur ine creatinine result >= 20 mg/dL is considered valid without suspicion of dilution. Samples with results below this range will automatically reflex to specific gravity testing to verify specimen integrity. Performed By: #### D SBOP #### [facility] [address] [place] [address] DRUG SCREEN COMMENT. SEE BELOW Normal [facility] Comment on above: Result Comment: [...] directors. Performed By: #### D SBOP #### [facility] [address] [place] [address] PCP SCREEN,U Negative Normal NEGATIVE [facility] Comment on above: Result Comment: CUTO FF LEVEL: 25 NG/ML Cross-reactivity has been reported with dextromethorphan. Performed By: #### D SBOP #### [facility] [address] [place] [address] RHEUMATOID FACTORon 02-11-20 23 RHEUMATOID FACTOR <10 Normal 0 - [address] [facility] Comment on above: Performed By: #### R F #### [facility] [address] [place] [address] TRIIODOTHYRONINE,FREEon 01-26 TRIIODOTHYRONINE,FREE 3.0 pg/mL Normal 2.3 - 4.2 [facility] Comment on above: Performed By: #### E SRWS #### [facility] [address] [place] [address] C-REACTIVE PROTEINon 023 C-REACTIVE PROTEIN 1.10 mg/dL Abnormal [facility] Comment on above: Result Comment: REF VALUE < 1.00 Performed By: #### C RP #### [address] [address] C-Reactive Proteinon 023 CRP [Mass/Vol] 1.10 mg/dL Abnormal [facility] Comment on above: REF VALUE < 1.00 CBC AND DIFFERENTIALon 02-09 % AUTOMATED IMMATURE GRAN 0.4 % Normal 0.0 - 0.9 [facility] Comment on above: Result Comment: Maria ture Granulocyte Count (IG) includes promyelocytes, myelocytes and metamyelocytes but does not include bands. Percent differential counts (%) should be interpreted in the context of the absolute cell counts (cells/L). Performed By: #### C BCDF #### [address] [address] Basophils (Bld) [#/Vol] 0.02 10*3/uL Normal 0.00 - 0.10 [facility] Comment on above: Performed By: #### C BCDF #### [address] [address] Basophils/100 WBC (Bld) 0.2 % Normal 0.0 - 2.0 [facility] Comment on above: Performed By: #### C BCDF #### [address] [address] Eosinophils (Bld) [#/Vol] 0.12 10*3/uL Normal 0.00 - 0.70 [facility] Comment on above: Performed By: #### C BCDF #### [address] [address] Eosinophils/100 WBC (Bld) 1.1 % Normal 0.0 - 6.0 [facility] Comment on above: Performed By: #### C BCDF #### [address] [address] Erythrocyte distribution width (RBC) [Ratio] 13.9 % Normal 11.5 - 14.5 [facility] Comment on above: Performed By: #### C BCDF #### [address] [address] Hematocrit (Bld) [Volume fraction] 44.8 % Normal 36.0 - 46.0 [facility] Comment on above: Performed By: #### C BCDF #### [address] [address] Hemoglobin (Bld) [Mass/Vol] 14.4 g/dL Normal 12.0 - 16.0 [facility] Comment on above: Performed By: #### C BCDF #### [address] [address] Lymphocytes (Bld) [#/Vol] 2.40 10*3/uL Normal 1.20 - 4.80 [facility] Comment on above: Performed By: #### C BCDF #### [address] [address] Lymphocytes/100 WBC (Bld) 21.8 % Normal 13.0 - 44.0 [facility] Comment on above: Performed By: #### C BCDF #### [address] [address] MCHC (RBC) [Mass/Vol] 32.1 g/dL Normal 32.0 - 36.0 [facility] Comment on above: Performed By: #### C BCDF #### [address] [address] MCV (RBC) [Entitic vol] 87 fL Normal 80 - 100 [facility] Comment on above: Performed By: #### C BCDF #### [address] [address] Monocytes (Bld) [#/Vol] 0.73 10*3/uL Normal 0.10 - 1.00 [facility] Comment on above: Performed By: #### C BCDF #### [address] [address] Monocytes/100 WBC (Bld) 6.6 % Normal 2.0 - 10.0 [facility] Comment on above: Performed By: #### C BCDF #### [address] [address] Neutrophils (Bld) [#/Vol] 7.68 10*3/uL Normal 1.20 - 7.70 [facility] Comment on above: Result Comment: Perc ent differential counts (%) should be interpreted in the context of the absolute cell counts (cells/L). Performed By: #### C BCDF #### [address] [address] Neutrophils/100 WBC (Bld) 69.9 % Normal 40.0 - 80.0 [facility] Comment on above: Performed By: #### C BCDF #### [address] [address] Platelets (Bld) [#/Vol] 186 10*3/uL Normal 150 - 450 [facility] Comment on above: Performed By: #### C BCDF #### [address] [address] RBC 5.13 x10E12/L Normal 4.00 - 5.20 [facility] Comment on above: Performed By: #### C BCDF #### [address] [address] WBC (Bld) [#/Vol] 11.0 10*3/uL Normal 4.4 - 11.3 [facility] Comment on above: Performed By: #### C BCDF #### [address] [address] CBC W Auto Differential pane l (Bld)on 02-09-2023 Basophils (Bld) [#/Vol] 0.02 10*3/uL [facility] Basophils/100 WBC (Bld) 0.2 % 0.0 - 2.0 % [facility] Eosinophils (Bld) [#/Vol] 0.12 10*3/uL [facility] Eosinophils/100 WBC (Bld) 1.1 % 0.0 - 6.0 % [facility] Erythrocyte distribution width (RBC) [Ratio] 13.9 % 11.5 - 14.5 % [facility] Hematocrit (Bld) [Volume fraction] 44.8 % 36.0 - 46.0 % [facility] Hemoglobin (Bld) [Mass/Vol] 14.4 g/dL 12.0 - 16.0 g/dL [facility] Immature granulocytes/100 WBC (Bld) 0.4 % 0.0 - 0.9 % [facility] Comment on above: Immature Granulocyte Count (IG) includes promyelocytes, myelocytes and metamyelocytes but does not include bands. Percent differential counts (%) should be interpreted in the context of the absolute cell counts (cells/L). Lymphocytes (Bld) [#/Vol] 2.40 10*3/uL [facility] Lymphocytes/100 WBC (Bld) 21.8 % 13.0 - 44.0 % [facility] MCHC (RBC) [Mass/Vol] 32.1 g/dL 32.0 - 36.0 g/dL [facility] MCV (RBC) [Entitic vol] 87 fL 80 - 100 fL [facility] Monocytes (Bld) [#/Vol] 0.73 10*3/uL [facility] Monocytes/100 WBC (Bld) 6.6 % 2.0 - 10.0 % [facility] Neutrophils (Bld) [#/Vol] 7.68 10*3/uL [facility] Comment on above: Percent differential counts (%) should be interpreted in the context of the absolute cell counts (cells/L). Neutrophils/100 WBC (Bld) 69.9 % 40.0 - 80.0 % [facility] Platelets (Bld) [#/Vol] 186 10*3/uL [facility] RBC (Bld) [#/Vol] 5.13 10*6/uL Unive [facility] WBC (Bld) [#/Vol] 11.0 10*3/uL [facility] ESR Westergren method (Bld) [Velocity]on 02-09-2023 ESR (Bld) [Velocity] 14 mm/h 0 - 20 mm/h [facility] Free T4 [Mass/Vol]on 023 [facility] HEPATIC FUNCTION PANELon Albumin [Mass/Vol] 4.0 g/dL Normal 3.4 - 5.0 [facility] Comment on above: Performed By: #### H EPFP #### [address] [address] ALP [Catalytic activity/Vol] 130 U/L High 33 - 110 [facility] Comment on above: Performed By: #### H EPFP #### [address] [address] ALT [Catalytic activity/Vol] 47 U/L High 7 - 45 [facility] Comment on above: Result Comment: Vicenta ents treated with Sulfasalazine may generate falsely decreased results for ALT. Performed By: #### H EPFP #### [address] [address] AST [Catalytic activity/Vol] 39 U/L Normal 9 - 39 [facility] Comment on above: Performed By: #### H EPFP #### [place] [id number] Bilirubin [Mass/Vol] 0.4 mg/dL Normal 0.0 - 1.2 [facility] Comment on above: Performed By: #### H EPFP #### [address] [address] Bilirubin.indirect [Mass/Vol] 0.1 mg/dL Normal 0.0 - 0.3 [facility] Comment on above: Performed By: #### H EPFP #### [address] [address] Protein [Mass/Vol] 6.9 g/dL Normal 6.4 - 8.2 [facility] Comment on above: Performed By: #### H EPFP #### [address] [address] Hepatic function 2000 panelo n 02-09-2023 Albumin BCP dye [Mass/Vol] 4.0 g/dL 3.4 - 5.0 g/dL [facility] ALP [Catalytic activity/Vol] 130 U/L High 33 - 110 U/L [facility] ALT With P-5'-P [Catalytic activity/Vol] 47 U/L High 7 - 45 U/L [facility] Comment on above: Patients treated wit h Sulfasalazine may generate falsely decreased results for ALT. AST With P-5'-P [Catalytic activity/Vol] 39 U/L 9 - 39 U/L [facility] Bilirubin [Mass/Vol] 0.4 mg/dL 0.0 - 1 .2 mg/dL [facility] Bilirubin.direct [Mass/Vol] 0.1 mg/dL 0.0 - 0.3 mg/dL [facility] Protein [Mass/Vol] 6.9 g/dL 6.4 - 8.2 g/dL [facility] No Panel Informationon 02-09 Interpretation and review of laboratory results Abnormal [facility] OPIATE/OPIOID/BENZO EXTENDED PRESCRIPTION COMPLIANCEon 02-09-2023 Lab Specimen Source Urine Normal [facility] Comment on above: Performed By: #### D SBOP #### [facility] [address] [place] [address] POCT UA Automated manually r esultedon 02-09-2023 Appearance (U) Clear Clear [facility] Work Phone: Glucose Test strip (U) [Mass/Vol] Negative NEGATIVE mg/dl [facility] Work Phone: [phone] Hemoglobin Ql (U) Negative NEGATIVE [facility] Work Phone: [phone] Interpretation and review of laboratory results Abnormal [facility] Work Phone: [phone] Leukocyte esterase Test strip Ql (U) Negative NEGATIVE [facility] Work Phone: Nitrite Ql (U) Negative NEGATIVE [facility] Work Phone: [phone] pH (U) 7.0 [pH] No Reference Range Established [facility] Work Phone: [phone] POC Bilirubin, Urine Negative NEGATIVE [facility] Work Phone: [phone] POC Color, Urine Yellow Straw, Yellow, Light Yellow [facility] Work Phone: POC Ketones, Urine TRACE Abnormal NEGATIVE mg/dl [facility] Work Phone: POC Protein, Urine Negative NEGATIVE, 30 (1+) mg/dl [facility] Work Phone: POC Specific [place], Urine 1.025 1.005 - 1.035 [facility] Work Phone: POC Urobilinogen, Urine 0.2 0.2, 1.0 EU/DL [facility] Work Phone: [facility] Work Phone: SEDIMENTATION RATE, ERYTHROC YTEon 02-09-2023 SEDIMENTATION RATE, ERYTHROCYTE 14 mm/h Normal 0 - 20 [facility] Comment on above: Performed By: #### E SRWS #### [place] [address] THYROXINE,FREEon 02-09-2023 THYROXINE,FREE 0.79 ng/dL Normal 0.61 - 1.12 [facility] Comment on above: Result Comment: Thyr oxine Free testing is performed using different testing methodology at [facility] than at other [facility]. Direct result comparisons should only [...] draw. Performed By: #### T 4FRE #### [place] [address] Lab Specimen Source Normal [facility] Comment on above: Performed By: #### T 4FRE #### [place] [address] Performed By: #### E SRWS #### [place] [address] Performed By: #### H EPFP #### [place] [address] Performed By: #### C RP #### [place] [address] Performed By: #### C BCDF #### [address] [address] Performed By: #### T SH2 #### [address] [address] Performed By: #### D NADS #### [facility] [address] [place] [address] Performed By: #### C ITAB #### [facility] [address] [place] [address] TSHon 02-09-2023 TSH Qn 2.71 m[IU]/L Normal 0.44 - 3.98 [facility] Comment on above: Result Comment: TSH testing is performed using different testing methodology at [facility] than at other [facility]. Direct result comparisons should only be made within the same method. Performed By: #### T SH2 #### [place] [id number] TSH Qnon 02-09-2023 [facility] Thyroid Stimulating Hormoneo n 02-09-2023 TSH Qn 2.71 m[IU]/L [facility] Comment on above: TSH testing is perfo rmed using different testing methodology at [facility] than at other [facility]. Direct result comparisons should only be made within the same method. Thyroxine, Freeon 02-09-2023 Free T4 [Mass/Vol] 0.79 ng/dL 0.61 - 1. 12 ng/dL [facility] Comment on above: Thyroxine Free testi ng is performed using different testing methodology at [facility] than at other [facility]. Direct result comparisons should only [...] Auto (Unsp spec) [#/Vol] 1.69 10*3/uL 0.83-4.51 [facility] Basophil percentageOrdered B y: Dr. Conn on 01-05-2023 Basophils/100 WBC (Bld) 0.3 % 0-1 [facility] Chloride [Moles/Vol] 105 mmol/L 98-107 [facility] Eosinophils/100 WBC (Bld) 1.0 % 0-5 [facility] Glucose [Mass/Vol] 99 mg/dL 74-106 [facility] Neutrophils (Bld) [#/Vol] 5.5 10*3/uL 2.0-7.7 [facility] Neutrophils/100 WBC (Bld) 69.1 % 47-70 [facility] Potassium [Moles/Vol] 4.0 mmol/L 3.5-5.1 [facility] Sodium [Moles/Vol] 139 mmol/L 136-145 [facility] WBC (Bld) [#/Vol] 8.0 10*3/uL 4.4-11.0 [facility] Blood erythrocytes count (nu mber/volume)Ordered By: Dr. Conn on 01-05-2023 RBC (Bld) [#/Vol] 5.30 10*6/uL 4.2-5.4 [facility] Blood hemoglobin measurement (mass/volume)Ordered By: Dr. Conn on 01-05-2023 Hemoglobin (Bld) [Mass/Vol] 14.9 g/dL 12.0-15.0 [facility] Blood lymphocytes/100 leukoc ytesOrdered By: Dr. Conn on 01-05-2023 Lymphocytes/100 WBC (Bld) 21.3 % 19-41 [facility] Blood monocytes/100 leukocyt esOrdered By: Dr. Conn on 01-05-2023 Monocytes/100 WBC (Bld) 7.9 % 0-10 [facility] Blood platelet mean volumeOr dered By: Dr. Conn on 01-05-2023 Platelet mean volume (Bld) [Entitic vol] 12.0 fL 6.2-12.0 [facility] Determination of erythrocyte mean corpuscular volume (MCV)Ordered By: Dr. Conn on 01-05-2023 MCV (RBC) [Entitic vol] 86.8 fL 81-99 [facility] Hematocrit Auto (Bld) [Volum e fraction]Ordered By: Dr. Conn on 01-05-2023 Hematocrit (Bld) [Volume fraction] 46.0 % 37-47 [facility] Laboratory - Chemistry and C hemistry - challengeOrdered By: Dr. Conn on 01-05-2023 CO2 [Moles/Vol] 26.0 mmol/L 21.0-32.0 [facility] Urea nitrogen/Creatinine [Mass ratio] 13.4 mg/mg 10-20 [facility] Laboratory - Hematology and Cell countsOrdered By: Dr. Conn on 01-05-2023 Erythrocyte distribution width (RBC) [Entitic vol] 42.5 fL 35.1-43.9 [facility] Erythrocyte distribution width (RBC) [Ratio] 13.4 % 11.6-14.6 [facility] Immature granulocytes/100 WBC (Bld) 0.400 % 0.0-0.9 [facility] Comment on above: IG% - Immature Granu locytes (promyelocytes, myelocytes and metamyelocytes) > 1% indicates that a LEFT SHIFT is Present. MCH (RBC) [Entitic mass] 28.1 pg 27.0-32.0 [facility] Nucleated RBC/100 WBC (Bld) [Ratio] 0 % 0-5 [facility] MCHC Auto (RBC) [Mass/Vol]Or dered By: Dr. Conn on 01-05-2023 MCHC (RBC) [Mass/Vol] 32.4 g/dL 32-36 [facility] No Panel InformationOrdered By: Dr. Conn on 01-05-2023 Estimated Creatinine Clearance Calc 105.53 ml/min [facility] Estimated GFR (MDRD) Amer 126 mL/min >60 [facility] Comment on above: GFR Calc Estimated GFR (MDRD) Non-Af Amer 104 mL/min >60 [facility] Comment on above: Non- GFR Calc Troponin I High Sensitivity 6 pg/mL 3.0-54.0 [facility] Comment on above: Please Note: New Uri t Units and Gender Specific Reference Ranges. For more information see Policy Stat Procedure [facility] High Sensitivity Troponin (TNIH) and attachments. Platelets bldOrdered By: Dr. Conn on 01-05-2023 Platelets (Bld) [#/Vol] 171 10*3/uL 150-450 [facility] Serum or plasma calcium jimenez urement (mass/volume)Ordered By: Dr. Conn on 01-05-2023 Calcium [Mass/Vol] 9.1 mg/dL 8.5-10.1 [facility] Serum or plasma creatinine m easurement (mass/volume)Ordered By: Dr. Conn on 01-05-2023 Creatinine [Mass/Vol] 0.67 mg/dL 0.55-1.02 [facility] Comment on above: The validity of the calculated GFR & GFRAA in patients over 70 years has not been determined. Clinical correlation is essential. Serum or plasma urea nitroge n measurement (mass/volume)Ordered By: Dr. Conn on 01-05-2023 Urea nitrogen [Mass/Vol] 9 mg/dL 7-18 [facility] Thin prep Papanicolaou smear with manual screeningOrdered By: Dr. Conn on 01-05-2023 Thin prep Papanicolaou smear with manual screening 8 5-15 [facility] Absolute lymphocyte countOrd ered By: Dr. Sutton on 11-15-2022 Lymphocytes Auto (Unsp spec) [#/Vol] 2.02 10*3/uL 0.83-4.51 [facility] Basophil percentageOrdered B y: Dr. Sutton on 11-15-2022 Basophils/100 WBC (Bld) 0.1 % 0-1 [facility] Bilirubin [Mass/Vol] 0.40 mg/dL 0.20-1.00 [facility] Comment on above: For patients on eltr ombopag therapy, use of Dimension [employer] TBIL is not recommended. Chloride [Moles/Vol] 108 mmol/L 98-107 [facility] Eosinophils/100 WBC (Bld) 1.7 % 0-5 [facility] Glucose [Mass/Vol] 103 mg/dL 74-106 [facility] Comment on above: Fasting Glucose resu lt from 100 to 125 mg/dL suggests IMPAIRED HOMEOSTASIS per A.D.A. criteria. Neutrophils (Bld) [#/Vol] 5.4 10*3/uL 2.0-7.7 [facility] Neutrophils/100 WBC (Bld) 66.2 % 47-70 [facility] Potassium [Moles/Vol] 3.7 mmol/L 3.5-5.1 [facility] Protein [Mass/Vol] 7.8 g/dL 6.4-8.2 [facility] Sodium [Moles/Vol] 141 mmol/L 136-145 [facility] WBC (Bld) [#/Vol] 8.1 10*3/uL 4.4-11.0 [facility] Blood erythrocytes count (nu mber/volume)Ordered By: Dr. Sutton on 11-15-2022 RBC (Bld) [#/Vol] 5.22 10*6/uL 4.2-5.4 [facility] Blood hemoglobin measurement (mass/volume)Ordered By: Dr. Sutton on 11-15-2022 Hemoglobin (Bld) [Mass/Vol] 14.5 g/dL 12.0-15.0 [facility] Blood lymphocytes/100 leukoc ytesOrdered By: Dr. Sutton on 11-15-2022 Lymphocytes/100 WBC (Bld) 24.8 % 19-41 [facility] Blood monocytes/100 leukocyt esOrdered By: Dr. Sutton on 11-15-2022 Monocytes/100 WBC (Bld) 7.0 % 0-10 [facility] Blood platelet mean volumeOr dered By: Dr. Sutton on 11-15-2022 Platelet mean volume (Bld) [Entitic vol] 12.1 fL 6.2-12.0 [facility] Determination of erythrocyte mean corpuscular volume (MCV)Ordered By: Dr. Sutton on 11-15-2022 MCV (RBC) [Entitic vol] 87.9 fL 81-99 [facility] Hematocrit Auto (Bld) [Volum e fraction]Ordered By: Dr. Sutton on 11-15-2022 Hematocrit (Bld) [Volume fraction] 45.9 % 37-47 [facility] Laboratory - Chemistry and C hemistry - challengeOrdered By: Dr. Sutton on 11-15-2022 ALP [Catalytic activity/Vol] 127 U/L 45-117 [facility] ALT [Catalytic activity/Vol] 76 U/L 13-56 [facility] CO2 [Moles/Vol] 30.0 mmol/L 21.0-32.0 [facility] Globulin (S) [Mass/Vol] 4.5 g/dL 2.2-4.2 [facility] Urea nitrogen/Creatinine [Mass ratio] 14.7 mg/mg 10-20 [facility] Laboratory - Hematology and Cell countsOrdered By: Dr. Sutton on 11-15-2022 Erythrocyte distribution width (RBC) [Entitic vol] 44.6 fL 35.1-43.9 [facility] Erythrocyte distribution width (RBC) [Ratio] 13.8 % 11.6-14.6 [facility] Immature granulocytes/100 WBC (Bld) 0.200 % 0.0-0.9 [facility] Comment on above: IG% - Immature Granu locytes (promyelocytes, myelocytes and metamyelocytes) > 1% indicates that a LEFT SHIFT is Present. MCH (RBC) [Entitic mass] 27.8 pg 27.0-32.0 [facility] Nucleated RBC/100 WBC (Bld) [Ratio] 0 % 0-5 [facility] MCHC Auto (RBC) [Mass/Vol]Or dered By: Dr. Sutton on 11-15-2022 MCHC (RBC) [Mass/Vol] 31.6 g/dL 32-36 [facility] No Panel InformationOrdered By: Dr. Sutton on 11-15-2022 Estimated Creatinine Clearance Calc 94.28 ml/min [facility] Estimated GFR (MDRD) Amer 111 mL/min >60 [facility] Comment on above: GFR Calc Estimated GFR (MDRD) Non-Af Amer 92 mL/min >60 [facility] Comment on above: Non- GFR Calc Troponin I High Sensitivity 5 pg/mL 3.0-54.0 [facility] Comment on above: Please Note: New Uri t Units and Gender Specific Reference Ranges. For more information see Policy Stat Procedure [facility] High Sensitivity Troponin (TNIH) and attachments. Platelets bldOrdered By: Dr. Sutton on 11-15-2022 Platelets (Bld) [#/Vol] 189 10*3/uL 150-450 [facility] Serum or plasma albumin jimenez urement (mass/volume)Ordered By: Dr. Sutton on 11-15-2022 Albumin [Mass/Vol] 3.3 g/dL 3.2-5.0 [facility] Serum or plasma albumin/glob ulin mass ratioOrdered By: Dr. Sutton on 11-15-2022 Albumin/Globulin [Mass ratio] 0.7 {ratio} 0.9-2.4 [facility] Serum or plasma calcium jimenez urement (mass/volume)Ordered By: Dr. Sutton on 11-15-2022 Calcium [Mass/Vol] 9.3 mg/dL 8.5-10.1 [facility] Serum or plasma creatinine m easurement (mass/volume)Ordered By: Dr. Sutton on 11-15-2022 Creatinine [Mass/Vol] 0.75 mg/dL 0.55-1.02 [facility] Comment on above: The validity of the calculated GFR & GFRAA in patients over 70 years has not been determined. Clinical correlation is essential. Serum or plasma urea nitroge n measurement (mass/volume)Ordered By: Dr. Sutton on 11-15-2022 Urea nitrogen [Mass/Vol] 11 mg/dL 7-18 [facility] Thin prep Papanicolaou smear with manual screeningOrdered By: Dr. Sutton on 11-15-2022 Thin prep Papanicolaou smear with manual screening 57 U/L 15-37 [facility] Thin prep Papanicolaou smear with manual screening 3 5-15 [facility] XR FOOT GENERAL 3V AP/LAT/OB L RIGHTon 11-08-2022 [facility] XR Foot - right AP and Later al and obliqueon 11-08-2022 IMPRESSION: No acute radiographic abnormalities seen in the right foot. Zigzag Topstitcher: YUVAL Transcribe Date/Time: Nov 08 2022 11:42A Dictated by : TROY CHUNG MD This examination was interpreted and the report reviewed and electronically signed by: TROY CHUNG MD on Nov 08 2022 11:45AM [facility] DIVISION OF RADIOLOGY * * *Final Report* [...] tissue swelling. DIVISION OF RADIOLOGY Provider, [facility] - 11/08/2022 * * *Final Report* * [...] radiographic abnormalities seen in the right foot. Zigzag Topstitcher: [facility] Transcribe Date/Time: Nov 08 2022 11:42A Dictated by : TROY CHUNG MD This examination was interpreted and the report reviewed and electronically signed by: TROY CHUNG MD on Nov 08 2022 11:45AM EST [facility] Radiology Study observation (narrative) [facility] XR Foot - right AP and Later al and obliqueOrdered By: [facility] Provider on 11-08-2022 [facility] Office Visit (Internal Medic ine)on 10-17-2022 [...] COVID-19; JAKE = N; Verified Transmission to [facility] #[id number]; Last Updated By: System, Jeanette; 10/17/2022 11:12:14 AM Patient Discussion/Summary Due to COVID 19 threat, virtual appointment completed with [employer] Joanna f/u in 1 week virtual COVID [...] depression Active (more content not included)... Normal [employer] Tobacco Screening.on 023 Fall risk assessment a) No falls within the last year [facility] Work Phone: Tobacco use status CPHS b) No [facility] Work Phone: CBC panel Auto (Bld)on 10-10 Erythrocyte distribution width (RBC) [Ratio] 13.7 % 11.5 - 15.0 % [facility] Hematocrit (Bld) [Volume fraction] 41.4 % 36.0 - 46.0 % [facility] Hemoglobin (Bld) [Mass/Vol] 13.9 g/dL 11.5 - 15.5 g/dL [facility] MCH (RBC) [Entitic mass] 28.5 pg 26.0 - 34.0 pg [facility] MCHC (RBC) [Mass/Vol] 33.6 g/dL 30.5 - 36.0 g/dL [facility] MCV (RBC) [Entitic vol] 84.8 fL 80.0 - 100.0 fL [facility] Nucleated RBC (Bld) [#/Vol] <0.01 k/uL [facility] Platelet mean volume (Bld) [Entitic vol] 11.5 fL 9.0 - 12.7 fL [facility] Platelets (Bld) [#/Vol] 184 10*3/uL 150 - 400 k/uL [facility] RBC (Bld) [#/Vol] 4.88 10*6/uL 3.90 - 5.2 0 m/uL [facility] WBC (Bld) [#/Vol] 9.59 10*3/uL 3.70 - 11. 00 k/uL [facility] XR CHEST 2V FRONTAL/LATon [facility] XR Chest PA and Lateralon IMPRESSION: No acute radiographic abnormality. Zigzag Topstitcher: [facility] Transcribe Date/Time: Sep 22 2022 1:49P Dictated by : TROY CHUNG MD This examination was interpreted and the report reviewed and electronically signed by: TROY CHUNG MD on Sep 22 2022 1:50PM [facility] DIVISION OF RADIOLOGY * * *Final Report* [...] soft tissues: Unremarkable. DIVISION OF RADIOLOGY Provider, [facility] - 09/22/2022 * * *Final Report* [...] Unremarkable. IMPRESSION IMPRESSION: No acute radiographic abnormality. Zigzag Topstitcher: YUVAL Transcribe Date/Time: Sep 22 2022 1:49P Dictated by : TROY CHUNG MD This examination was interpreted and the report reviewed and electronically signed by: TROY CHUNG MD on Sep 22 2022 1:50PM [facility] Radiology Study observation (narrative) [facility] XR Chest PA and LateralOrder ed By: [facility] Provider on 09-22-2022 [facility] Office Visit (Internal Medic ine)on 09-20-2022 [...] Cough; JAKE = N; Verified Transmission to [facility] #[id number]; Last Updated By: [employer]; 09/20/2022 2:22:26 PM Start: Benzonatate 200 MG Oral Capsule; TAKE 1 CAPSULE 3 TIMES DAILY NEEDED Rx By: Josselyn Roblero; Dispense: 7 Days ; #:21 Capsule; Refill: 0;For: Chest congestion, Cough; JAKE = N; Verified Transmission to [facility] #4605; Last Updated By: [employer]; 09/20/2022 2:22:27 PM Patient Discussion/Summary 1 WEEK [...] negative for complaint. 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 Normal [facility] PHQ-2 VITALSon 09-20-2022 Adult depression screening assessment No [facility] Work Phone: Tobacco use status CPHS b) No [facility] Work Phone: Office Visit [...] Cervicalgia; JAKE = N; Verified Transmission to [facility] #4605; Last Updated By: [employer]; 08/31/2022 9:19:38 AM Pleurisy Start: Azithromycin 250 MG Oral Tablet (Zithromax Z-Bernardino); TAKE 2 TABLETS ON DAY 1 THEN TAKE 1 TABLET A DAY FOR 4 DAYS Rx By: Vargas Mujica; Dispense: 0 Days ; #:1 X 6 Tablet Pack; Refill: 0;For: Pleurisy; JAKE = N; Verified Transmission to [facility] #4605; Last Updated By: [employer]; 08/31/2022 9:19:39 AM Patient Discussion/Summary Due to COVID 19 threat, virtual appointment completed with [employer] joanna f/u as before we had said [...] 023 Tobacco use status CPHS b) No [facility] Work Phone: No Panel Informationon 08-27 3.07 1 above high threshold <2.54 [facility] Medicine Work Phone: Comment on above: Reference:1. [place] bee Cholesterol Education Program ATP III Guideline At-A-Glance Quick Desk Reference: National Heart, Lung, and Blood [place]. National Institutes of Health. 2001: NIH Publication No. 01-3305.2. An International Atherosclerosis Society position paper: global recommendations for the management of dyslipidemia: executive summary, Atherosclerosis. 2014: 232(2):410-413. 129 mg/dL above high threshold <100 [facility] Medicine Work Phone: Comment on above: <100 mg/dL, Optimal 100-129 mg/dL, Near optimal/above optimal 130-159 mg/dL, Borderline high 160-189 mg/dL, High>189 mg/dL, Very highSecondary prevention optimal LDL Cholesterol levels are recommended to be < 70 mg/dL 4.48 1 Normal <5.10 [facility] Work Phone: 17 mg/dL Normal <30 [facility] Medicine Work Phone: 10 {hrs} Normal [facility] Work Phone: 146 mg/dL above high threshold <130 [facility] Medicine Work Phone: Comment on above: <130 mg/dL, Optimal 130-159 mg/dL, Near optimal/above optimal 160-189 mg/dL, Borderline high 190-219 mg/dL, High>219 mg/dL, Very highSecondary prevention optimal non HDL Cholesterol levels are recommended to be <100 mg/dL 42 mg/dL Normal >39 [facility] Medicine Work Phone: Comment on above: 40-59 mg/dL, Accepta ble>59 mg/dL, High: Negative risk factor for coronary heart disease<40 mg/dL, Low: Positive risk factor for coronary heart disease 84 mg/dL Normal <150 [facility] Work Phone: Comment on above: <150 mg/dL, Normal 1 50-199 mg/dL, Borderline high 200-499 mg/dL, High>499 mg/dL, Very high 188 mg/dL Normal <200 [facility] Work Phone: Comment on above: <200 mg/dL, Desirabl e 200-239 mg/dL, Borderline high>239 mg/dL, High 1.1 ng/dL Normal 0.9-1.7 [facility] Work Phone: 1.850 {mIU/L} Normal 0.270-4.200 [facility] Internal Medicine Work Phone: Comment on above: If the patient is pr egnant, TSH reference range varies by gestational period:First Trimester (weeks 9-12): 0.180-2.990 mIU/LSecond Trimester: 0.110-3.980 mIU/LThird Trimester: 0.480-4.710 mIU/Susannah Bee et al. A Practical Approach for the Verifications and Determination of Site- and Trimester-Specific Reference Intervals for Thyroid Function tests in . Thyroid, 2019:29:3:412-420. Cristhian Wall, et al. 2017 Guidelines of the [place] Thyroid Association for the Diagnosis and Management of Thyroid Disease during and the . Thyroid, 2017:27:3:315-389. Absolute lymphocyte countOrd ered By: Dr. Espinoza on 08-17-2022 Lymphocytes Auto (Unsp spec) [#/Vol] 1.55 10*3/uL 0.83-4.51 [facility] Basophil percentageOrdered B y: Dr. Espinoza on 08-17-2022 Basophils/100 WBC (Bld) 0.2 % 0-1 [facility] Chloride [Moles/Vol] 106 mmol/L 98-107 [facility] Eosinophils/100 WBC (Bld) 1.4 % 0-5 [facility] Glucose [Mass/Vol] 99 mg/dL 74-106 [facility] Neutrophils (Bld) [#/Vol] 6.4 10*3/uL 2.0-7.7 [facility] Neutrophils/100 WBC (Bld) 74.1 % 47-70 [facility] Potassium [Moles/Vol] 4.0 mmol/L 3.5-5.1 [facility] Sodium [Moles/Vol] 138 mmol/L 136-145 [facility] WBC (Bld) [#/Vol] 8.6 10*3/uL 4.4-11.0 [facility] Blood erythrocytes count (nu mber/volume)Ordered By: Dr. Espinoza on 08-17-2022 RBC (Bld) [#/Vol] 4.92 10*6/uL 4.2-5.4 [facility] Blood hemoglobin measurement (mass/volume)Ordered By: Dr. Espinoza on 08-17-2022 Hemoglobin (Bld) [Mass/Vol] 13.8 g/dL 12.0-15.0 [facility] Blood lymphocytes/100 leukoc ytesOrdered By: Dr. Espinoza on 08-17-2022 Lymphocytes/100 WBC (Bld) 18.1 % 19-41 [facility] Blood monocytes/100 leukocyt esOrdered By: Dr. Espinoza on 08-17-2022 Monocytes/100 WBC (Bld) 6.0 % 0-10 [facility] Blood platelet mean volumeOr dered By: Dr. Espinoza on 08-17-2022 Platelet mean volume (Bld) [Entitic vol] 11.6 fL 6.2-12.0 [facility] Determination of erythrocyte mean corpuscular volume (MCV)Ordered By: Dr. Espinoza on 08-17-2022 MCV (RBC) [Entitic vol] 86.0 fL 81-99 [facility] Hematocrit Auto (Bld) [Volum e fraction]Ordered By: Dr. Espinoza on 08-17-2022 Hematocrit (Bld) [Volume fraction] 42.3 % 37-47 [facility] Laboratory - Chemistry and C hemistry - challengeOrdered By: Dr. Espinoza on 08-17-2022 CO2 [Moles/Vol] 27.0 mmol/L 21.0-32.0 [facility] Urea nitrogen/Creatinine [Mass ratio] 19.8 mg/mg 10-20 [facility] Laboratory - Hematology and Cell countsOrdered By: Dr. Espinoza on 08-17-2022 Erythrocyte distribution width (RBC) [Entitic vol] 45.9 fL 35.1-43.9 [facility] Erythrocyte distribution width (RBC) [Ratio] 14.6 % 11.6-14.6 [facility] Immature granulocytes/100 WBC (Bld) 0.200 % 0.0-0.9 [facility] Comment on above: IG% - Immature Granu locytes (promyelocytes, myelocytes and metamyelocytes) > 1% indicates that a LEFT SHIFT is Present. MCH (RBC) [Entitic mass] 28.0 pg 27.0-32.0 [facility] Nucleated RBC/100 WBC (Bld) [Ratio] 0 % 0-5 [facility] MCHC Auto (RBC) [Mass/Vol]Or dered By: Dr. Espinoza on 08-17-2022 MCHC (RBC) [Mass/Vol] 32.6 g/dL 32-36 [facility] No Panel InformationOrdered By: Dr. Espinoza on 08-17-2022 Estimated Creatinine Clearance Calc 107.13 ml/min [facility] Estimated GFR (MDRD) Amer 129 mL/min >60 [facility] Comment on above: GFR Calc Estimated GFR (MDRD) Non-Af Amer 107 mL/min >60 [facility] Comment on above: Non- GFR Calc Troponin I High Sensitivity 6 pg/mL 3.0-54.0 [facility] Comment on above: Please Note: New Uri t Units and Gender Specific Reference Ranges. For more information see Policy Stat Procedure [facility] High Sensitivity Troponin (TNIH) and attachments. Platelets bldOrdered By: Dr. Espinoza on 08-17-2022 Platelets (Bld) [#/Vol] 173 10*3/uL 150-450 [facility] Serum or plasma calcium jimenez urement (mass/volume)Ordered By: Dr. Espinoza on 08-17-2022 Calcium [Mass/Vol] 9.0 mg/dL 8.5-10.1 [facility] Serum or plasma creatinine m easurement (mass/volume)Ordered By: Dr. Espinoza on 08-17-2022 Creatinine [Mass/Vol] 0.66 mg/dL 0.55-1.02 [facility] Comment on above: The validity of the calculated GFR & GFRAA in patients over 70 years has not been determined. Clinical correlation is essential. Serum or plasma urea nitroge n measurement (mass/volume)Ordered By: Dr. Espinoza on 08-17-2022 Urea nitrogen [Mass/Vol] 13 mg/dL 7-18 [facility] Thin prep Papanicolaou smear with manual screeningOrdered By: Dr. Espinoza on 08-17-2022 Thin prep Papanicolaou smear with manual screening 5 5-15 [facility] Office Visit (Internal Medic ine)on 07-27-2022 Follow-up [...] Cervicalgia; JAKE = N; Verified Transmission to [facility] #[id number]; Last Updated By: Jeanette Gracia; 07/27/2022 8:57:39 AM Start: predniSONE 10 MG Oral Tablet; take 2 tab po tid x 3 days then 1 tab po tid x 3 days then 1 tab bid x 3 days then 1 tab daily x 3 days Rx By: Vargas Mujica; Dispense: 0 Days ; #:36 Tablet; Refill: 0;For: Cervicalgia; JAKE = N; Verified Transmission to [facility] #4605; Last Updated By: Dg GraciaAustin-Tetra; 07/27/2022 8:57:41 AM Depression, major, single episode, moderate Renew: Venlafaxine HCl ER 75 MG Oral Capsule Extended Release 24 Hour; Take 1 capsule twice daily Rx By: Vargas Mujica; Dispense: 30 Days ; #:60 Capsule; Refill: 2;For: Depression, major, single episode, moderate; JAKE = N; Verified Transmission to [facility] #4605; Last Updated By: Kate GraciaAmerityre; 07/27/2022 8:57:39 AM Shahzad's disease T4 - Free Thyroxine, Serum; Status:Active; Requested for:27Jul2022; Perform:Lab Services - Lab To Draw (Blood Test); Due:[id number];Ordered; For:Shhazad's disease; Ordered By:Vargas Mujica; TSH - Thyroid Stimulating Hormone, Serum; Status:Active; Requested for:27Jul2022; Perform:Lab Services - Lab To Draw (Blood Test); Due:[id number];Ordered; For:Shahzad's disease; Ordered By:Vargas Mujica; Hypercholesteremia Lipid Panel; Status:Active; Requested for:27Jul2022; Perform:Lab Services - Lab To Draw (Blood Test); Due:[id number];Ordered; For:Hypercholesteremia ; Ordered By:Vargas Mujica; Lower extremity edema, Palpitations, Shortness of breath Renew: Furosemide 20 MG Oral Tablet; TAKE 1 TABLET DAILY X 7 DAYS THEN PRN EDEMA Rx By: Vargas Mujica; Dispense: 90 Days ; #:90 Tablet; Refill: 3;For: Lower extremity edema, Palpitations, Shortness of breath; JAKE = N; Verified Transmission to [facility] #4605; Last Updated By: Dg GraciaAustin-[employer]; 07/27/2022 8:57:39 AM Shortness of breath Renew: Albuterol Sulfate HFA 108 (90 Base) MCG/ACT Inhalation Aerosol Solution; INHALE 1 TO 2 PUFFS EVERY 6 HOURS NEEDED Rx By: Vargas Mujica; Dispense: 0 Days ; #:1 X 6.7 GM Inhaler; Refill: 1;For: Shortness of breath; JAKE = N; Verified Transmission to [facility] #2745; Last Updated By: Jeanette Gracia; 07/27/2022 8:57:35 AM Patient Discussion/Summary f/u in 6-12 mo with labs done with her specialists pt to have labs done now labs at [facility] lipid - hyperchol TSH /FREE t4 Provider [...] every ot (more content not included)... Normal [employer] Tobacco Screening.on 022 Fall risk assessment a) No falls within the last year [facility] Work Phone: Tobacco use status CPHS b) No [facility] Work Phone: CT ABD/PEL W IVCONon 022 [facility] CHEST 2 VIEW PA AND LATon CHEST 2 VIEW PA AND LAT Patient Name: CURLY COWART STUDY: TH CHEST 2 VIEW PA AND LAT; 03/30/2022 8:08 am INDICATION: PRE OP TESTING Z01.818: Pre-op testing. COMPARISON: 07/23/2020 ACCESSION NUMBER(S): [id number] ORDERING CLINICIAN: VARGAS MUJICA FINDINGS: PA and lateral radiographs of the chest were provided. CARDIOMEDIASTINAL SILHOUETTE: Cardiomediastinal silhouette is stable in size and configuration. LUNGS: Lungs are clear. ABDOMEN: No remarkable upper abdominal findings. BONES: No acute osseous changes. IMPRESSION: 1. No evidence of acute cardiopulmonary process. Electronically signed by: PAN URIAS MD [facility] Laboratory - Chemistry and C hemistry - challengeon 03-30-2022 TSH Qn 3.76 m[IU]/L See Below [facility] Work Phone: Comment on above: Reference Range: 0.4 4 - 3.98 TSH testing is performed using different testing methodology at [facility] than at other [facility]. Direct result comparisons should only [...] been cleared by the cardio, pulm, and building construction foreman, based on the most recent labs I [...] she has been cleared by cardio ( Tanisah), pulm (Ki), building construction foreman (Charles) pt states they believe she will [...] rather musc (more content not included)... Normal [employer] Radiologyon 08-03-2022 XR Chest 2 Views Normal [facility] Work Phone: TSH WITH REFLEX TO FREE T4 I F ABNORMALon 03-30-2022 TSH Qn 3.76 m[IU]/L Normal 0.44 - 3.98 [facility] Comment on above: Result Comment: TSH testing is performed using different testing methodology at [facility] than at other [facility]. Direct result comparisons should only be made within the same method. Performed By: #### E SRWS #### [place] [id number] Tobacco Screening.on 022 Fall risk assessment b) One or more fall s in the last year [facility] Work Phone: Tobacco use status CPHS b) No [facility] Work Phone: AMMONIAon 01-01-2022 Ammonia (P) [Moles/Vol] 33 umol/L Normal [facility] Comment on above: Result Comment: . REFERENCE VALUES DAY 1 to DAY 7 <110 DAY 8 to DAY 14 < 90 DAY 15 to ADULT 16-53 Performed By: #### A MM #### [address] [address] Ammonia, Plasmaon 01-01-2022 Ammonia (P) [Moles/Vol] 33 umol/L [facility] Work Phone: Comment on above: .REFERENCE VALUESDAY 1 to DAY 7 <110DAY 8 to DAY 14 < 90DAY 15 to ADULT 16-53 ANTI-LKMon 12-31-2021 ANTI-LKM <5.0 Normal [facility] Comment on above: Result Comment: ANTI -LKM:Liver/Kidney Microsome Type 1 Antibodies, Serum REFERENCE VALUE <=20.0 (Negative) Test Performed by: [address] [id number] Extension Edger: Barry Lopez M.D. Ph.D.; CLIA# [id number] Performed By: #### A LKM #### [facility] [address] [place] [address] ANTIMITOCHONDRIAL ABon 12-29 ANTIMITOCHONDRIAL AB Negative Normal NEGATIVE [facility] Comment on above: Performed By: #### M ITAB #### [facility] [address] [place] [address] ANTISMOOTH MUSCLE ABon 12-29 ANTISMOOTH MUSCLE AB Positive Normal NEGATIVE [facility] Comment on above: Performed By: #### E SRWS #### [address] [address] ANTISMOOTH MUSCLE TITER 1:20 Normal [facility] Comment on above: Performed By: #### E SRWS #### [address] [address] HEPATITIS PANEL,ACUTE (HCFA) on 12-29-2021 HEPATITIS B CORE AB,IGM Non-Reactive Normal NONREACTIVE [facility] Comment on above: Result Comment: Resu lts from patients taking biotin supplements or receiving high-dose biotin therapy should be interpreted with caution due to possible interference with this test. Providers may contact their local laboratory for further information. Performed By: #### H EPA2 #### [facility] [address] [place] [address] HEPATITIS C AB Non-Reactive Normal NONREACTIVE [facility] Comment on above: Result Comment: Resu lts from patients taking biotin supplements or receiving high-dose biotin therapy should be interpreted with caution due to possible interference with this test. Providers may contact their local laboratory for further information. Performed By: #### H EPA2 #### [facility] [address] [place] [address] HEPATITIS A AB-IGM Non-Reactive Normal NONREACTIVE [facility] Comment on above: Result Comment: Biot in interference may cause falsely decreased results. Patients taking a Biotin dose of up to 5 mg/day should refrain from taking Biotin for 24 hours before sample collection. Providers may contact their local laboratory for further information. Performed By: #### H EPA2 #### [facility] [address] [place] [address] HEP.B SURFACE AG Non-Reactive Normal NONREACTIVE [facility] Comment on above: Result Comment: Biot in interference may cause falsely decreased results. Patients taking a Biotin dose of up to 5 mg/day should refrain from taking Biotin for 24 hours before sample collection. Providers may contact their local laboratory for further information. Performed By: #### H EPA2 #### [facility] [address] [place] [address] BNPon 12-28-2021 Natriuretic peptide B (Bld) [Mass/Vol] 16 pg/mL Normal 0 - 99 [facility] Comment on above: Result Comment: . <1 00 pg/mL - Heart failure unlikely 100-299 pg/mL - Intermediate probability of acute heart . failure exacerbation. Correlate with clinical . context and patient history. >=300 pg/mL - Heart Failure likely. Correlate with clinical . context and patient history. BNP testing is performed using different testing methodology at [facility] than at other [facility]. Direct result comparisons should only be made within the same method. Performed By: #### B NP2 #### [address] [address] CBC AND DIFFERENTIALon 12-28 Basophils (Bld) [#/Vol] 0.00 10*3/uL Normal 0.00 - 0.10 [facility] Comment on above: Performed By: #### E SRWS #### [address] [address] Basophils/100 WBC (Bld) 0.4 % Normal 0.0 - 2.0 [facility] Comment on above: Performed By: #### E SRWS #### [address] [address] Eosinophils (Bld) [#/Vol] 0.20 10*3/uL Normal 0.00 - 0.70 [facility] Comment on above: Performed By: #### E SRWS #### [address] [address] Eosinophils/100 WBC (Bld) 1.7 % Normal 0.0 - 6.0 [facility] Comment on above: Performed By: #### E SRWS #### [address] [address] Erythrocyte distribution width (RBC) [Ratio] 15.2 % High 11.5 - 14.5 [facility] Comment on above: Performed By: #### E SRWS #### [address] [address] Hematocrit (Bld) [Volume fraction] 43.2 % Normal 36.0 - 46.0 [facility] Comment on above: Performed By: #### E SRWS #### [address] [address] Hemoglobin (Bld) [Mass/Vol] 14.6 g/dL Normal 12.0 - 16.0 [facility] Comment on above: Performed By: #### E SRWS #### [address] [address] Lymphocytes (Bld) [#/Vol] 2.40 10*3/uL Normal 1.20 - 4.80 [facility] Comment on above: Performed By: #### E SRWS #### [address] [address] Lymphocytes/100 WBC (Bld) 25.5 % Normal 13.0 - 44.0 [facility] Comment on above: Performed By: #### E SRWS #### [address] [address] MCHC (RBC) [Mass/Vol] 33.9 g/dL Normal 32.0 - 36.0 [facility] Comment on above: Performed By: #### E SRWS #### [address] [address] MCV (RBC) [Entitic vol] 86 fL Normal 80 - 100 [facility] Comment on above: Performed By: #### E SRWS #### [address] [address] Monocytes (Bld) [#/Vol] 0.70 10*3/uL Normal 0.10 - 1.00 [facility] Comment on above: Performed By: #### E SRWS #### [address] [place] [address] Monocytes/100 WBC (Bld) 7.1 % Normal 2.0 - 10.0 [facility] Comment on above: Performed By: #### E SRWS #### [address] [address] Neutrophils (Bld) [#/Vol] 6.00 10*3/uL Normal 1.20 - 7.70 [facility] Comment on above: Result Comment: Perc ent differential counts (%) should be interpreted in the context of the absolute cell counts (cells/L). Performed By: #### E SRWS #### [address] [address] Neutrophils/100 WBC (Bld) 65.3 % Normal 40.0 - 80.0 [facility] Comment on above: Performed By: #### E SRWS #### [address] [address] NUCLEATED RBC 0.1 /100 WBC Normal [facility] Comment on above: Performed By: #### E SRWS #### [address] [address] Platelets (Bld) [#/Vol] 253 10*3/uL Normal 150 - 450 [facility] Comment on above: Performed By: #### E SRWS #### [address] [address] RBC 5.04 x10E12/L Normal 4.00 - 5.20 [facility] Comment on above: Performed By: #### E SRWS #### [address] [address] WBC (Bld) [#/Vol] 9.3 10*3/uL Normal 4.4 - 11.3 [facility] Comment on above: Performed By: #### E SRWS #### [address] [address] Complete Blood Count + Diffe rishion 12-28-2021 Basophils/100 WBC (Bld) 0.4 % 0.0 - 2.0 [facility] Work Phone: Erythrocyte distribution width (RBC) [Ratio] 15.2 % above high threshold See Below [facility] Work Phone: Comment on above: Reference Range: 11. 5 - 14.5 Hematocrit (Bld) [Volume fraction] 43.2 % See Below [facility] Work Phone: [phone] Comment on above: Reference Range: 36. 0 - 46.0 Hemoglobin (Bld) [Mass/Vol] 14.6 g/dL See Below [facility] Work Phone: [phone] Comment on above: Reference Range: 12. 0 - 16.0 Lymphocytes/100 WBC (Bld) 25.5 % See Below [facility] Work Phone: [phone] Comment on above: Reference Range: 13. 0 - 44.0 MCHC (RBC) [Mass/Vol] 33.9 g/dL See Below [facility] Work Phone: [phone] Comment on above: Reference Range: 32. 0 - 36.0 MCV (RBC) [Entitic vol] 86 fL 80 - 100 [facility] Work Phone: [phone] Monocytes/100 WBC (Bld) 7.1 % 2.0 - 10.0 [facility] Work Phone: [phone] Neutrophils/100 WBC (Bld) 65.3 % See Below [facility] Work Phone: [phone] Comment on above: Reference Range: 40. 0 - 80.0 Platelets (Bld) [#/Vol] 253 10*3/uL 150 - 450 [facility] Work Phone: [phone] RBC (Bld) [#/Vol] 5.04 {x10E12/L} See Below [facility] Work Phone: [phone] Comment on above: Reference Range: 4.0 0 - 5.20 WBC (Bld) [#/Vol] 9.3 10*3/uL 4.4 - 11.3 [facility] Work Phone: [phone] Complete Blood Count + Differential 0.00 {x10E9/L} See Below [facility] Work Phone: Comment on above: Reference Range: 0.0 0 - 0.10 Complete Blood Count + Differential 0.20 {x10E9/L} See Below [facility] Work Phone: Comment on above: Reference Range: 0.0 0 - 0.70 Complete Blood Count + Differential 0.70 {x10E9/L} See Below [facility] Work Phone: Comment on above: Reference Range: 0.1 0 - 1.00 Complete Blood Count + Differential 2.40 {x10E9/L} See Below [facility] Work Phone: Comment on above: Reference Range: 1.2 0 - 4.80 Complete Blood Count + Differential 6.00 {x10E9/L} See Below [facility] Work Phone: Comment on above: Reference Range: 1.2 0 - 7.70 Percent differential counts (%) should be interpreted in the context of the absolute cell counts (cells/L). Complete Blood Count + Differential 1.7 % 0.0 - 6.0 [facility] Work Phone: Complete Blood Count + Differential 0.1 {/100_WBC} [facility] Work Phone: HEMOGLOBIN A1Con 12-28-2021 Glucose [Mass/Vol] 85 mg/dL Normal [facility] Comment on above: Performed By: #### H BA1E #### [place] [address] HbA1c (Bld) [Mass fraction] 4.6 % Normal [facility] Comment on above: Result Comment: Diag nosis of Diabetes-Adults Non-Diabetic: < or = 5.6% Increased risk for developing diabetes: 5.7-6.4% Diagnostic of diabetes: > or = 6.5% . Monitoring of Diabetes Age (y) Therapeutic Goal (%) Adults: >18 <7.0 Pediatrics: 13-18 <7.5 7-12 <8.0 0- 6 7.5-8.5 [employer]. Diabetes Care 33(S1), Aug 2009. Performed By: #### H BA1E #### [address] [address] HEPATIC FUNCTION PANELon Albumin [Mass/Vol] 3.7 g/dL Normal 3.4 - 5.0 [facility] Comment on above: Performed By: #### H EPFP #### [address] [address] ALP [Catalytic activity/Vol] 130 U/L High 33 - 110 [facility] Comment on above: Performed By: #### H EPFP #### [address] [address] ALT [Catalytic activity/Vol] 143 U/L High 7 - 45 [facility] Comment on above: Result Comment: Vicenta ents treated with Sulfasalazine may generate falsely decreased results for ALT. Performed By: #### H EPFP #### [address] [address] AST [Catalytic activity/Vol] 148 U/L High 9 - 39 [facility] Comment on above: Performed By: #### H EPFP #### [address] [address] Bilirubin [Mass/Vol] 0.7 mg/dL Normal 0.0 - 1.2 [facility] Comment on above: Performed By: #### H EPFP #### [address] [address] Bilirubin.indirect [Mass/Vol] 0.1 mg/dL Normal 0.0 - 0.3 [facility] Comment on above: Performed By: #### H EPFP #### [address] [address] Protein [Mass/Vol] 7.6 g/dL Normal 6.4 - 8.2 [facility] Comment on above: Performed By: #### H EPFP #### [address] [address] HEPATITIS PANEL,ACUTE (HCFA) on 12-28-2021 Lab Specimen Source Normal [facility] Comment on above: Performed By: #### H EPA2 #### [facility] [address] [place] [address] Hemoglobin A1Con 12-28-2021 Glucose [Mass/Vol] 85 mg/dL [facility] Work Phone: [phone] HbA1c (Bld) [Mass fraction] 4.6 % [facility] Work Phone: Comment on above: Diagnosis of Diabete s-Adults Non-Diabetic: < or = 5.6% Increased risk for developing diabetes: 5.7-6.4% Diagnostic of diabetes: > or = 6.5%. Monitoring of Diabetes Age (y) Therapeutic Goal (%) Adults: >18 <7.0 Pediatrics: 13-18 <7.5 7-12 <8.0 0- 6 7.5-8.5 [employer]. Diabetes Care 33(S1), Aug 2009. Hepatic Function Panelon Albumin BCP dye [Mass/Vol] 3.7 g/dL 3.4 - 5.0 [facility] Work Phone: [phone] ALP [Catalytic activity/Vol] 130 U/L above high threshold 33 - 110 [facility] Work Phone: [phone] ALT With P-5'-P [Catalytic activity/Vol] 143 U/L above high threshold 7 - 45 [facility] Work Phone: Comment on above: Patients treated wit h Sulfasalazine may generate falsely decreased results for ALT. AST With P-5'-P [Catalytic activity/Vol] 148 U/L above high threshold 9 - 39 [facility] Work Phone: Bilirubin [Mass/Vol] 0.7 mg/dL 0.0 - 1.2 [facility] Work Phone: Bilirubin.direct [Mass/Vol] 0.1 mg/dL 0.0 - 0.3 [facility] Work Phone: [phone] Protein [Mass/Vol] 7.6 g/dL 6.4 - 8.2 [facility] Work Phone: Hepatitis Panel, Acute (HCFA )on 12-28-2021 HAV IgM IA Ql Non-Reactive See Below [facility] Work Phone: Comment on above: SOURCE: Reference Ra pinedae: NONREACTIVE Biotin interference may cause falsely decreased results. Patients taking a Biotin dose of up to 5 mg/day should refrain from taking Biotin for 24 hours before sample collection. Providers may contact their local laboratory for further information. Hepatitis Panel, Acute (HCFA) Non-Reactive See Below [facility] Work Phone: Comment on above: Reference [...] kidney microsomal 1 Ab Qn (S) <5.0 [facility] Work Phone: Comment on above: ANTI-LKM:Liver/Kidne y Microsome Type 1 Antibodies, Serum REFERENCE VALUE <=20.0 (Negative) Test Performed by:[facility] [place] [id number] Director: Barry Lopez M.D. Ph.D.; CLIA# [id number] No Panel Informationon 12-28 Negative NEGATIVE [facility] Work Phone: [phone] 1:20 [facility] Work Phone: [phone] Positive NEGATIVE [facility] Work Phone: 16 pg/mL 0 - 99 [facility] Work Phone: Comment on above: . <100 pg/mL - Heart failure -179 pg/mL - Intermediate probability of acute heart. failure exacerbation. Correlate with clinical. context and patient history. >=300 pg/mL - Heart Failure likely. Correlate with clinical. context and patient history.BNP testing is performed using different testing methodology at [facility] than at other [facility]. Direct result comparisons should only [...] Services - Lab To Draw (Blood Test); Due:[id number];Ordered; For:Elevated LFTs; Ordered By:Vargas Mujica; Hepatic Function [...] Services - Lab To Draw (Blood Test); Due:[id number];Ordered; For:Elevated LFTs; Ordered By:Vargas uMjica; Glucose intolerance (impaired glucose tolerance) Hemoglobin A1C; Status:In Progress - Specimen/Data Collected; Done: 28Dec2021 Perform:Lab Services - Lab To Draw (Blood Test); Due:[id number];Ordered; For:Glucose intolerance (impaired glucose tolerance); Ordered By:Vargas Mujica; Lower extremity edema, Palpitations, Shortness of breath Start: Furosemide 20 MG Oral Tablet; TAKE 1 TABLET DAILY X 7 DAYS THEN PRN EDEMA Rx By: Vargas Mujica; Dispense: 30 Days ; #:30 Tablet; Refill: 0;For: Lower extremity edema, Palpitations, Shortness of breath; JAKE = N; Verified Transmission to [id number]; Last Updated By: SystemJeanette; 12/28/2021 10:29:13 AM Echocardiogram; Status:Hold For - Scheduling; Requested for:28Dec2021; Perform:[facility] ([place]); Order Comments:dr dong; Due:28Mar2022;Ordered; For:Lower [...] ERYTHROCYTE 64 mm/h High 0 - 20 [facility] Comment on above: Performed By: #### E SRWS #### [address] [address] Sedimentation Rate, Erythroc yteon 12-28-2021 ESR (Bld) [Velocity] 64 mm/h above high threshold 0 - 20 [facility] Work Phone: Tobacco Screening.on 022 Adult depression screening assessment No [facility] Work Phone: Fall risk assessment b) One or more fall s in the last year [facility] Work Phone: Tobacco use status CPHS b) No [facility] Work Phone: CBC AND DIFFERENTIALon 11-11 Basophils (Bld) [#/Vol] 0.00 10*3/uL Normal 0.00 - 0.10 [facility] Comment on above: Performed By: #### E SRWS #### [address] [address] Basophils/100 WBC (Bld) 0.4 % Normal 0.0 - 2.0 [facility] Comment on above: Performed By: #### E SRWS #### [address] [address] Eosinophils (Bld) [#/Vol] 0.20 10*3/uL Normal 0.00 - 0.70 [facility] Comment on above: Performed By: #### E SRWS #### [address] [address] Eosinophils/100 WBC (Bld) 2.0 % Normal 0.0 - 6.0 [facility] Comment on above: Performed By: #### E SRWS #### [address] [address] Erythrocyte distribution width (RBC) [Ratio] 15.3 % High 11.5 - 14.5 [facility] Comment on above: Performed By: #### E SRWS #### [address] [address] Hematocrit (Bld) [Volume fraction] 42.3 % Normal 36.0 - 46.0 [facility] Comment on above: Performed By: #### E SRWS #### [address] [address] Hemoglobin (Bld) [Mass/Vol] 13.9 g/dL Normal 12.0 - 16.0 [facility] Comment on above: Performed By: #### E SRWS #### [address] [address] Lymphocytes (Bld) [#/Vol] 2.20 10*3/uL Normal 1.20 - 4.80 [facility] Comment on above: Performed By: #### E SRWS #### [address] [address] Lymphocytes/100 WBC (Bld) 25.1 % Normal 13.0 - 44.0 [facility] Comment on above: Performed By: #### E SRWS #### [address] [address] MCHC (RBC) [Mass/Vol] 32.8 g/dL Normal 32.0 - 36.0 [facility] Comment on above: Performed By: #### E SRWS #### [address] [address] MCV (RBC) [Entitic vol] 87 fL Normal 80 - 100 [facility] Comment on above: Performed By: #### E SRWS #### [address] [address] Monocytes (Bld) [#/Vol] 0.60 10*3/uL Normal 0.10 - 1.00 [facility] Comment on above: Performed By: #### E SRWS #### [address] [address] Monocytes/100 WBC (Bld) 7.1 % Normal 2.0 - 10.0 [facility] Comment on above: Performed By: #### E SRWS #### [address] [address] Neutrophils (Bld) [#/Vol] 5.80 10*3/uL Normal 1.20 - 7.70 [facility] Comment on above: Result Comment: Perc ent differential counts (%) should be interpreted in the context of the absolute cell counts (cells/L). Performed By: #### E SRWS #### [address] [address] Neutrophils/100 WBC (Bld) 65.4 % Normal 40.0 - 80.0 [facility] Comment on above: Performed By: #### E SRWS #### [address] [address] NUCLEATED RBC 0.3 /100 WBC Normal [facility] Comment on above: Performed By: #### E SRWS #### [address] [address] Platelets (Bld) [#/Vol] 246 10*3/uL Normal 150 - 450 [facility] Comment on above: Performed By: #### E SRWS #### [address] [address] RBC 4.88 x10E12/L Normal 4.00 - 5.20 [facility] Comment on above: Performed By: #### E SRWS #### [address] [address] WBC (Bld) [#/Vol] 8.8 10*3/uL Normal 4.4 - 11.3 [facility] Comment on above: Performed By: #### E SRWS #### [address] [address] COMPREHENSIVE PANELon 2021 Albumin [Mass/Vol] 3.6 g/dL Normal 3.4 - 5.0 [facility] Comment on above: Performed By: #### C MP #### [address] [address] ALP [Catalytic activity/Vol] 123 U/L High 33 - 110 [facility] Comment on above: Performed By: #### C MP #### [address] [address] ALT [Catalytic activity/Vol] 109 U/L High 7 - 45 [facility] Comment on above: Result Comment: Vicenta ents treated with Sulfasalazine may generate falsely decreased results for ALT. Performed By: #### C MP #### [address] [address] Anion gap [Moles/Vol] 10 mmol/L Normal 10 - 20 [facility] Comment on above: Performed By: #### C MP #### [address] [address] AST [Catalytic activity/Vol] 107 U/L High 9 - 39 [facility] Comment on above: Performed By: #### C MP #### [address] [address] Bilirubin [Mass/Vol] 0.6 mg/dL Normal 0.0 - 1.2 [facility] Comment on above: Performed By: #### C MP #### [address] [address] Calcium [Mass/Vol] 9.3 mg/dL Normal 8.6 - 10.3 [facility] Comment on above: Performed By: #### C MP #### [address] [address] Chloride [Moles/Vol] 100 mmol/L Normal 98 - 107 [facility] Comment on above: Performed By: #### C MP #### [address] [address] Creatinine [Mass/Vol] 0.61 mg/dL Normal 0.50 - 1.05 [facility] Comment on above: Performed By: #### C MP #### [address] [address] eGFR FEMALE >90 Normal >90 [facility] Comment on above: Result Comment: CALC ULATIONS OF ESTIMATED GFR ARE PERFORMED USING THE 2020 CKD-EPI STUDY REFIT EQUATION WITHOUT THE RACE VARIABLE FOR THE IDMS-TRACEABLE CREATININE METHODS. https://jasn.asnjournals.org/content/early/ASN.569258 6235 Performed By: #### C MP #### [address] [address] Glucose [Mass/Vol] 150 mg/dL High 74 - 99 [facility] Comment on above: Performed By: #### C MP #### [address] [address] HCO3 (Bld) [Moles/Vol] 31 mmol/L Normal 21 - 32 [facility] Comment on above: Performed By: #### C MP #### [address] [address] Potassium [Moles/Vol] 3.4 mmol/L Low 3.5 - 5.3 [facility] Comment on above: Performed By: #### C MP #### [address] [address] Protein [Mass/Vol] 7.4 g/dL Normal 6.4 - 8.2 [facility] Comment on above: Performed By: #### C MP #### [address] [address] Sodium [Moles/Vol] 138 mmol/L Normal 136 - 145 [facility] Comment on above: Performed By: #### C MP #### [address] [address] Urea nitrogen [Mass/Vol] 11 mg/dL Normal 6 - 23 [facility] Comment on above: Performed By: #### C MP #### [address] [address] Complete Blood Count + Diffe chantel 11-11-2021 Basophils/100 WBC (Bld) 0.4 % 0.0 - 2.0 [facility] Work Phone: [phone] Erythrocyte distribution width (RBC) [Ratio] 15.3 % above high threshold See Below [facility] Work Phone: Comment on above: Reference Range: 11. 5 - 14.5 Hematocrit (Bld) [Volume fraction] 42.3 % See Below [facility] Work Phone: Comment on above: Reference Range: 36. 0 - 46.0 Hemoglobin (Bld) [Mass/Vol] 13.9 g/dL See Below [facility] Work Phone: Comment on above: Reference Range: 12. 0 - 16.0 Lymphocytes/100 WBC (Bld) 25.1 % See Below [facility] Work Phone: [phone] Comment on above: Reference Range: 13. 0 - 44.0 MCHC (RBC) [Mass/Vol] 32.8 g/dL See Below [facility] Work Phone: [phone] Comment on above: Reference Range: 32. 0 - 36.0 MCV (RBC) [Entitic vol] 87 fL 80 - 100 [facility] Work Phone: [phone] Monocytes/100 WBC (Bld) 7.1 % 2.0 - 10.0 [facility] Work Phone: [phone] Neutrophils/100 WBC (Bld) 65.4 % See Below [facility] Work Phone: [phone] Comment on above: Reference Range: 40. 0 - 80.0 Platelets (Bld) [#/Vol] 246 10*3/uL 150 - 450 [facility] Work Phone: [phone] RBC (Bld) [#/Vol] 4.88 {x10E12/L} See Below [facility] Work Phone: [phone] Comment on above: Reference Range: 4.0 0 - 5.20 WBC (Bld) [#/Vol] 8.8 10*3/uL 4.4 - 11.3 [facility] Work Phone: [phone] Complete Blood Count + Differential 0.00 {x10E9/L} See Below [facility] Work Phone: [phone] Comment on above: Reference Range: 0.0 0 - 0.10 Complete Blood Count + Differential 0.20 {x10E9/L} See Below [facility] Work Phone: [phone] Comment on above: Reference Range: 0.0 0 - 0.70 Complete Blood Count + Differential 0.60 {x10E9/L} See Below [facility] Work Phone: Comment on above: Reference Range: 0.1 0 - 1.00 Complete Blood Count + Differential 2.20 {x10E9/L} See Below [facility] Work Phone: Comment on above: Reference Range: 1.2 0 - 4.80 Complete Blood Count + Differential 5.80 {x10E9/L} See Below [facility] Work Phone: Comment on above: Reference Range: 1.2 0 - 7.70 Percent differential counts (%) should be interpreted in the context of the absolute cell counts (cells/L). Complete Blood Count + Differential 2.0 % 0.0 - 6.0 [facility] Work Phone: Complete Blood Count + Differential 0.3 {/100_WBC} [facility] Work Phone: Laboratory - Chemistry and C hemistry - challengeon 11-11-2021 Albumin BCP dye [Mass/Vol] 3.6 g/dL 3.4 - 5.0 [facility] Work Phone: ALP [Catalytic activity/Vol] 123 U/L above high threshold 33 - 110 [facility] Work Phone: ALT With P-5'-P [Catalytic activity/Vol] 109 U/L above high threshold 7 - 45 [facility] Work Phone: Comment on above: Patients treated wit h Sulfasalazine may generate falsely decreased results for ALT. Anion gap [Moles/Vol] 10 mmol/L 10 - 20 [facility] Work Phone: AST With P-5'-P [Catalytic activity/Vol] 107 U/L above high threshold 9 - 39 [facility] Work Phone: Bilirubin [Mass/Vol] 0.6 mg/dL 0.0 - 1.2 [facility] Internal [facility] Work Phone: Calcium [Mass/Vol] 9.3 mg/dL 8.6 - 10.3 [facility] Internal [facility] Work Phone: Chloride [Moles/Vol] 100 mmol/L 98 - 107 [facility] Work Phone: CO2 [Moles/Vol] 31 mmol/L 21 - 32 [facility] Internal Medicine Work Phone: Creatinine [Mass/Vol] 0.61 mg/dL See Below [facility] Work Phone: Comment on above: Reference Range: 0.5 0 - 1.05 Glucose [Mass/Vol] 150 mg/dL above high threshold 74 - 99 [facility] Work Phone: Potassium [Moles/Vol] 3.4 mmol/L below low threshold 3.5 - 5.3 [facility] Work Phone: Protein [Mass/Vol] 7.4 g/dL 6.4 - 8.2 [facility] Work Phone: Sodium [Moles/Vol] 138 mmol/L 136 - 145 [facility] Work Phone: TSH Qn 2.91 m[IU]/L See Below [facility] Work Phone: Comment on above: Reference Range: 0.4 4 - 3.98 TSH testing is performed using different testing methodology at [facility] than at [facility]. Direct result comparisons should only be made within the same method. Urea nitrogen [Mass/Vol] 11 mg/dL 6 - 23 [facility] Work Phone: No Panel Informationon 11-11 >90 >90 [facility] Work Phone: Comment on above: CALCULATIONS OF COLETTE MATED GFR ARE PERFORMED USING THE 2020 CKD-EPI STUDY REFIT EQUATION WITHOUT THE RACE VARIABLE FOR THE IDMS-TRACEABLE CREATININE METHODS.https://jasn.asnjournals.org/content/early/ N.1644468656 Office Visit (Internal Medic ine)on 11-11-2021 Follow-up [...] depression; JAKE = N; Verified Transmission to [facility]; Last Updated By: [employer]; 11/11/2021 9:20:17 AM Costochondral pain Start: predniSONE 20 MG Oral Tablet; TAKE 1 TABLET DAILY DIRECTED Rx By: Talya Stevens; Dispense: 7 Days ; #:7 Tablet; Refill: 0;For: Costochondral pain; JAKE = N; Verified Transmission to [facility] #3[facility]; Last Updated By: [employer]; 11/11/2021 9:20:16 AM Comprehensive Metabolic Panel; Status:In [...] Status:Resulted - Requires Verification; Done: 11Nov2021 09:29AM Performed:Health System; Due:09Feb2022;Ordered; For:Lower extremity edema, Shortness of breath; Ordered By:Talya Stevens; Shortness of breath Start: Albuterol Sulfate HFA 108 (90 Base) MCG/ACT Inhalation Aerosol Solution; INHALE 1 TO 2 PUFFS EVERY 6 HOURS NEEDED Rx By: Talya Stevens; Dispense: 0 Days ; #:1 X 6.7 GM Inhaler; Refill: 1;For: Shortness of breath; JAKE = N; Verified Transmission to [facility] #[facility]; Last Updated By: [employer]; 11/11/2021 9:20:21 AM Patient Discussion/Summary FUOV as [...] CO SWELLING AND EDEMA History of Present Amztkzj10 YOF presents with concerns of pain above [...] Endocrine: thyroid disorder. 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 Direct result comparisons should only be made within the same method. Performed By: #### T HYDS #### [place] [id number] Tobacco Screening.on 022 Fall risk assessment b) One or more fall s in the last year [facility] Medicine Work Phone: Tobacco use status [facility] b) No [facility] [place] [facility] Work Phone: Tobacco Screening.on Fall risk assessment a) No falls within the last year [facility] Medicine Work Phone: Tobacco use status [facility] b) No [facility] Work Phone: Tobacco Screening.on Fall risk assessment a) No falls within the last year [facility] Medicine Work Phone: Tobacco use status [facility] b) No [facility] Work Phone: IO EKG Electrocardiogram- 12 Leadon 07-28-2021 EKG study NORMAL SINUS RYTHMN, POSSIBLE L ATRIAL ENLARGEMENT, BORDERLINE ECG [facility] Work Phone: IO EKG Electrocardiogram- 12 Lead See Scanned Document [facility] Work Phone: Tobacco Screening.on Fall risk assessment a) No falls within the last year [facility] Work Phone: Tobacco use status [facility] b) No [facility] Work Phone: Cult, Urineon 07-23-2021 Bacteria identified Cx Nom (U) [facility] Work Phone: Laboratory - Coagulationon 1 09-22-2020 INR Coag (PPP) [Relative time] 1.1 {INR} 0.9 - 1.1 [facility] Work Phone: PT Coag (PPP) [Time] 13.2 s See Below [facility] Work Phone: Comment on above: Reference Range: 10. 1 - 13.3 MRSA Screenon 07-23-2021 Staphylococcus sp identified Org specific cx Nom (Unsp spec) [facility] Work Phone: Radiologyon 07-23-2021 XR Chest 2 Views Normal [facility] Internal Medicine Work Phone: Urinalysison 07-23-2021 Color (U) Yellow See Below [facility] Work Phone: Comment on above: Reference Range: STR AW,YELLOW Glucose Ql (U) Negative NEGATIVE [facility] Internal Medicine Work Phone: Ketones Ql (U) Negative NEGATIVE [facility] Medicine Work Phone: Leukocyte esterase Test strip Ql (U) Negative NEGATIVE [facility] Work Phone: pH (U) 7.0 [pH] 5.0 - 8.0 [facility] Medicine Work Phone: Protein (U) [Mass/Vol] Negative NEGATIVE [facility] Work Phone: RBC (U) [#/Vol] Negative NEGATIVE [facility] Internal [facility] Work Phone: Specific gravity (U) [Rel density] 1.006 1 See Below [facility] Work Phone: Comment on above: Reference Range: 1.0 05 - 1.035 Urinalysis Negative NEGATIVE [facility] Work Phone: [phone] Urinalysis <2.0 0.0 - 1.9 [facility] Work Phone: Urinalysis HAZY CLEAR [facility] Work Phone: Laboratory - Chemistry and C hemistry - challengeon 05-25-2021 Creatinine (Body fld) [Mass/Vol] 51.0 mg/dL [facility] Work Phone: Comment on above: A urine creatinine r esult >= 20 mg/dL is considered valid without suspicion of dilution. Samples with results below this range will automatically reflex to specific gravity testing to verify specimen integrity. Laboratory - Drug toxicology on 05-25-2021 1-Hydroxymidazolam Confirm (U) [Mass/Vol] <25 Cutoff <25 [facility] Work Phone: 0-Yuvqkpogvm-0,5-Dime thyl-3,3-Diphenylpyrr olidine (EDDP) Confirm (U) [Mass/Vol] <25 Cutoff <25 [facility] Internal [facility] Work Phone: Comment on above: The performance [...] (6-RAINE) Confirm (U) [Mass/Vol] <25 Cutoff <25 [facility] Work Phone: 7-Aminoclonazepam Confirm (U) [Mass/Vol] <25 Cutoff <25 [facility] Work Phone: Alpha hydroxyalprazolam Confirm (U) [Mass/Vol] <25 Cutoff <25 [facility] Work Phone: ALPRAZolam Confirm (U) [Mass/Vol] <25 Cutoff <25 [facility] Work Phone: Amphetamines Screen Ql (U) Negative NEGATIVE [facility] Work Phone: Comment on above: CUTOFF LEVEL: 500 NG /ML Cross-reactivity has been reported with high concentrations of the following drugs: buproprion, chloroquine, chlorpromazine, ephedrine, mephentermine, fenfluramine, phentermine, phenylpropanolamine, pseudoephedrine, and propranolol. Barbiturates Screen Ql (U) Negative NEGATIVE [facility] Work Phone: Comment on above: CUTOFF LEVEL: 200 NG /ML Benzoylecgonine Screen Ql (U) Negative NEGATIVE [facility] Work Phone: Comment on above: CUTOFF LEVEL: 150 NG /ML Cannabinoids Screen Ql (U) Negative NEGATIVE [facility] Work Phone: Comment on above: CUTOFF LEVEL: 50 NG/ ML chlordiazePOXIDE Confirm (U) [Mass/Vol] <25 Cutoff <25 [facility] Work Phone: clonazePAM Confirm (U) [Mass/Vol] <25 Cutoff <25 [facility] Work Phone: Codeine Confirm (U) [Mass/Vol] <50 Cutoff <50 [facility] Work Phone: diazePAM Confirm (U) [Mass/Vol] <25 Cutoff <25 -[facility] Internal [facility] Work Phone: fentaNYL Confirm (U) [Mass/Vol] <2.5 Cutoff<2.5 -[facility] Work Phone: HYDROcodone Confirm (U) [Mass/Vol] <25 Cutoff <25 -[facility] Work Phone: HYDROmorphone Confirm (U) [Mass/Vol] <25 Cutoff <25 -[facility] Internal [facility] Work Phone: LORazepam Confirm (U) [Mass/Vol] <25 Cutoff <25 -[facility] Work Phone: Methadone Confirm (U) [Mass/Vol] <25 Cutoff <25 -[facility] Work Phone: Midazolam Confirm (U) [Mass/Vol] <25 Cutoff <25 -[facility] Work Phone: Morphine Confirm (U) [Mass/Vol] <50 Cutoff <50 [facility] Work Phone: Nordiazepam Confirm (U) [Mass/Vol] <25 Cutoff <25 [facility] Work Phone: Norfentanyl Confirm (U) [Mass/Vol] <2.5 Cutoff<2.5 -[facility] Work Phone: Comment on [...] (U) [Mass/Vol] <25 Cutoff <25 [facility] [place] [facility] Work Phone: Noroxycodone Confirm (U) [Mass/Vol] <25 Cutoff <25 [facility] [place] [facility] Work Phone: Nortramadol (U) [Mass/Vol] <50 Cutoff <50 [facility] Work Phone: Comment on [...] (U) [Mass/Vol] <25 Cutoff <25 [facility] [place] [facility] Work Phone: oxyCODONE Confirm (U) [Mass/Vol] <25 Cutoff <25 [facility] Work Phone: oxyMORphone Confirm (U) [Mass/Vol] <25 Cutoff <25 [facility] Work Phone: Comment on [...] Phencyclidine Ql (U) Negative NEGATIVE [facility] [place] [facility] Work Phone: Comment on above: CUTOFF LEVEL: 25 NG/ ML Cross-reactivity has been reported with dextromethorphan. Temazepam Confirm (U) [Mass/Vol] <25 Cutoff <25 [facility] [place] [facility] Work Phone: Comment on above: The performance [...] traMADol Confirm (U) [Mass/Vol] <50 Cutoff <50 [facility] Medicine Work Phone: Zolpidem (U) [Mass/Vol] <25 Cutoff <25 [facility] Internal [facility] Work Phone: No Panel Informationon 05-25 <25 Cutoff <25 [facility] Internal [facility] Work Phone: Comment on above: The performance [...] high complexity clinical laboratory testing. SEE BELOW [facility] Work Phone: Comment on above: Drug [...] a) No falls within the last year [facility] Work Phone: Tobacco use status [facility] b) No [facility] Work Phone: XR Chest PA and Lateralon IMPRESSION: No acute radiographic abnormality. Zigzag Topstitcher: YUVAL Transcribe Date/Time: Dec 19 2020 3:24P Dictated by : TROY CHUNG MD This examination was interpreted and the report reviewed and electronically signed by: TROY CHUNG MD on Dec 19 2020 3:33PM [facility] DIVISION OF RADIOLOGY * * *Final Report* [...] soft tissues: Unremarkable. DIVISION OF RADIOLOGY Provider, [facility] - 12/19/2020 * * *Final Report* [...] Unremarkable. IMPRESSION IMPRESSION: No acute radiographic abnormality. Zigzag Topstitcher: PSCB Transcribe Date/Time: Dec 19 2020 3:24P Dictated by : TROY CHUNG MD This examination was interpreted and the report reviewed and electronically signed by: TROY CUHNG MD on Dec 19 2020 3:33PM EST [facility] Radiology Study observation (narrative) [facility] XR Chest PA and LateralOrder ed By: Ccf Provider on 12-19-2020 [facility] NM CARDIAC PERF STRESS/EXERC ISEon 07-13-2020 [...] was performed on [..].10/11/2016. Nuclear Med Report:1-Day Ae-79j-Xquispagnia Exercise Stress Gated SPECT: Myocardial perfusion imaging was performed at rest 30 to 60 minutes following the IV injection of Tc-99m tetrofosmin. One minute prior to peak exercise, the patient was injected IV with Tc-99m tetrofosmin. Gated post stress tomographic imaging was performed 10 to 20 minutes later. See administered doses below. [facility] Date of service: 07/13/2020 1:17:42 [...] of scarring. Final ------ Stress ECG Report: [facility] Date of service: 07/13/2020 1:17:42 PM Ordering physician: TOMASZ GARAY Specialist: Stacey Antonio Labor Crew Supervisor: Yohana Okeefe Stress ECG interpreting physician: Mackenzie [...] was 6.1. The double product achieved was [address]. Peak heart rate was 181 bpm and [...] (HRR): 12 bpm Rate Pressure Product (RPP): 72446 Bhakta Treadmill Score: 4.8 Reason for test [...] 2018 for ventricular tachycardia Final ------ Stress Teradata Developer Report: [facility] Date of service: 07/13/2020 1:17:42 PM Supervising physician: Brooks Diaz MD PATIENT: Name: MS. CURLY COWART Age: 35 years Gender: F The supervising physician was present during the stress procedure. Final Zigzag Topstitcher: YURY Transcribe Date/Time: Jul 13 2020 1:17P Dictated by : MACKENZIE PERKINS DO This examination was interpreted and the report reviewed and electronically signed by: MACKENZIE PERKINS DO on Jul 13 2020 5:22PM EST [id number] [facility] PROGRESSon 07-13-2020 PROGRESS HNO ID: [id number] Author: Mackenzie (Ct) BRENDA Hernandez Service: Nuclear Medicine Author Type: Clinical Irrigationist Designer Type: Progress Notes Filed: 07/13/2020 2:24 PM [...] POST EXAM PIV STATUS: Discontinued PROCEDURE TYPE: LA Stress: 15.8mCi Tu27t-Xooxjld was administered IV for Rest Imaging at 12:54 by BRENDA Stock. 49.4 mCi Ad72c-Wztdvgc was administered IV for Stress Imaging at 14:15 by BRENDA Stock. PATIENT DISCHARGED TO: Ambulatory patient, left [place] department area. A Diagnostic radioactive procedure has taken place, with no further precautions necessary other than routine body substance precautions. More information regarding radiation safety can be found using this link: [email or web address] [email or web address] [email or web address] SIGNATURE: BRENDA Stock PATIENT NAME: Curly Jules Sofya DATE: July 13, 2020 TIME: 2:20 PM PAGER/CONTACT #: [facility] CURLY COWART ([id number]) 1985 F Date Time Provider Department 07/10/20 YOHANA OKEEFE (RN) [facility] During your visit today, we recorded [...] Fully Assessed Reason for Visit: Reminder Call [[id number]] Prescriptions as of 07/10/2020 Sig: VENLAFAXINE ER [...] Class III, BMI >= 40 [E66.01] 09/19/2018 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] 09/19/2018 Ankylosing spondylitis (HCC) [...] Encounter Status:Closed by YOHANA OKEEFE on 07/10/20 [facility] U Drug Screenon 01-02-2019 U Amph Scr Negative Normal Negative [facility] Comment on above: Performed By: #### 2 [id number] #### [facility] [employer] [address] [place] [address] U Radha Scr Negative Normal Negative [facility] Comment on above: Performed By: #### 2 [id number] #### [facility] [employer] [address] [place] [address] U Benzodia Scr Negative Normal Negative [facility] Comment on above: Performed By: #### 2 [id number] #### [facility] [employer] [address] [place] [address] U Cannab Scr Negative Normal Negative [facility] Comment on above: Performed By: #### 2 [id number] #### [facility] [employer] [address] [place] [address] U Cocaine Scr Negative Normal Negative [facility] Comment on above: Performed By: #### 2 [id number] #### [facility] [employer] [address] [place] [address] U Opiate Scr Negative Normal Negative [facility] Comment on above: Performed By: #### 2 [id number] #### [facility] [employer] [address] [place] [address] U PCP Scr Negative Normal Negative [facility] Comment on above: Performed By: #### 2 [id number] #### [facility] [employer] [address] [place] [address] BNP.on 11-21-2018 Natriuretic peptide B mass conc (Bld) 17 pg/mL Normal <=500 [facility] Comment on above: Result Comment: Noti ce: [...] patient's BNP level. Performed By: #### C [id number] #### [facility] [employer] [address] [place], [place] [id number] CMPon 11-21-2018 Albumin mass conc 3.8 g/dL Normal 3.4-5.0 [facility] Comment on above: Performed By: #### 2 [id number] #### [facility] [employer] [address] [place] [address] Albumin/Globulin mass ratio 1.1 {ratio} Normal 1.1-1.9 [facility] Comment on above: Performed By: #### 2 [id number] #### [facility] [employer] [address] [place] [address] Alk Phos 112 Int._Unit/L High 33-110 [facility] Comment on above: Performed By: #### 2 [id number] #### [facility] [employer] [address] [place], [place] [id number] ALT enzyme act/vol 123 Int._Unit/L High 7-45 [facility] Comment on above: Performed By: #### 2 [id number] #### [facility] [employer] [address] [place], [place] [id number] Anion gap molar conc 8 mmol/L Low 10-20 [facility] Comment on above: Performed By: #### 2 [id number] #### [facility] [employer] [address] [place], [place] [address] AST enzyme act/vol 75 Int._Unit/L High 9-[address] [facility] Comment on above: Performed By: #### 2 [id number] #### [facility] [employer] [address] [place], [place] [address] Bili Total 0.39 mg/dL Normal 0.00-1.20 [facility] Comment on above: Performed By: #### 2 [id number] #### [facility] [employer] [address] [place], [place] [address] Calcium mass conc 9.0 mg/dL Normal 8.6-10.3 [facility] Comment on above: Performed By: #### 2 [id number] #### [facility] [employer] [address] [place] [address] Chloride molar conc 103 mmol/L Normal 98-107 [facility] Comment on above: Performed By: #### 2 [id number] #### [facility] [employer] [address] [place] [address] CO2 molar conc 30.0 mmol/L Normal 21.0-32.0 [facility] Comment on above: Performed By: #### 2 [id number] #### [facility] [employer] [address] [place] [address] Creatinine mass conc 0.6 mg/dL Normal 0.5-1.1 [facility] Comment on above: Performed By: #### 2 [id number] #### [facility] [employer] [address] [place] [address] Globulin mass conc (S) 3.0 g/dL Normal 2.0-4.0 [facility] Comment on above: Performed By: #### 2 [id number] #### [facility] [employer] [address] [place] [address] Glucose mass conc 108 mg/dL High 70-99 [facility] Comment on above: Performed By: #### 2 [id number] #### [facility] [employer] [address] [place] [address] Potassium molar conc 4.3 mmol/L Normal 3.5-5.3 [facility] Comment on above: Performed By: #### 2 [id number] #### [facility] [employer] [address] [place] [address] Protein mass conc 7.2 g/dL Normal 6.4-8.2 [facility] Comment on above: Performed By: #### 2 750240 #### [facility] [employer] [address] [place] [address] Sodium molar conc 137 mmol/L Normal 136-145 [facility] Comment on above: Performed By: #### 2 [id number] #### [facility] [employer] [address] [place] [address] Urea nitrogen mass conc 12 mg/dL Normal 6-23 [facility] Comment on above: Performed By: #### 2 [id number] #### [facility]KE [employer] [facility] [place] [address] Urea nitrogen/Creatinine mass ratio 20.0 ratio Normal 5.4-30.0 [facility] Comment on above: Performed By: #### 2 [id number] #### [facility] [employer] [facility] [place] [address] XR Chest 2 Viewson 9 XR Chest 2 Views Exam Date/Time: 11/21/2018 10:02 EDT Reason for Exam: Chest pain Report STUDY: XR Chest 2 Views; 11/21/2018 10:02 am INDICATION: Chest pain. COMPARISON: None. ACCESSION NUMBER(S): [id number] ORDERING CLINICIAN: Vargas Mujica FINDINGS: PA and [...] by Discern Expert. Performed By: #### 1 [id number] #### [facility] [employer] [address] [place] [address] Basic Panelon 09-19-2018 Creatinine mass conc 0.76 mg/dL Normal 0.51-0.95 [facility] Comment on above: Performed By: #### P 8 #### [place] [address] Calcium mass conc 8.5 mg/dL Normal 8.5-10.1 [facility] Comment on above: Performed By: #### P 8 #### [address] [place] [address] Glucose mass conc 97 mg/dL Normal 70-99 [facility] Comment on above: Performed By: #### P 8 #### [facility] [address] [place], [place] [address] Urea nitrogen mass conc 8 mg/dL Normal 7-18 [facility] Comment on above: Performed By: #### P 8 #### [facility] [address] [place] [address] Anion gap molar conc 12 mmol/L Normal 8-16 [facility] Comment on above: Performed By: #### P 8 #### [facility] [address] [place] [address] CO2 molar conc 24 mmol/L Normal 21-32 [facility] Comment on above: Performed By: #### P 8 #### [facility] [address] [place] [address] Chloride molar conc 109 mmol/L High 98-107 [facility] Comment on above: Performed By: #### P 8 #### [facility] [address] [place] [address] Potassium molar conc 3.7 mmol/L Normal 3.5-5.1 [facility] Comment on above: Performed By: #### P 8 #### [facility] [address] [place] [address] Sodium molar conc 141 mmol/L Normal 136-145 [facility] Comment on above: Performed By: #### P 8 #### [facility] [address] [place] [address] Hemogramon 09-19-2018 Erythrocyte distribution width Ratio (RBC) 14.2 % Normal 11.7-14.4 [facility] Comment on above: Performed By: #### C BC1 #### [facility] [address] [place] [address] Hematocrit Volume Fraction (Bld) 42.3 % Normal 34.1-44.9 [facility] Comment on above: Performed By: #### C BC1 #### [facility] [address] [place] [address] Hemoglobin mass conc (Bld) 13.6 g/dL Normal 11.2-15.7 [facility] Comment on above: Performed By: #### C BC1 #### [facility] [address] [place] [address] MCH Entitic mass (RBC) 27.9 pg Normal 25.6-32.2 [facility] Comment on above: Performed By: #### C BC1 #### [facility] [address] [place] [address] MCHC mass conc (RBC) 32.2 % Normal 31.6-34.8 [facility] Comment on above: Performed By: #### C BC1 #### [facility] [address] [place] [address] MCV Entitic volume (RBC) 86.7 fL Normal 79.4-94.8 [facility] Comment on above: Performed By: #### C BC1 #### [facility] [address] [place] [address] Platelet mean volume Entitic volume (Bld) 11.1 fL Normal 9.4-12.3 [facility] Comment on above: Performed By: #### C BC1 #### [facility] [address] [place] [address] Platelets #/vol (Bld) 205 thou/cmm Normal 182-369 [facility] Comment on above: Performed By: #### C BC1 #### [facility] [address] [place] [address] RBC #/vol (Bld) 4.88 mil/cmm Normal 3.93-5.22 [facility] Comment on above: Performed By: #### C BC1 #### [facility] [address] [place] [address] RDW SD 44.6 fl Normal 36.4-46.3 [facility] Comment on above: Performed By: #### C BC1 #### [facility] [address] [place] [address] WBC #/vol (Bld) 9.68 thou/cmm Normal 3.98-10.04 [facility] Comment on above: Performed By: #### C BC1 #### [facility] [address] [place] [id number] LEVEL 1 DEPT VISIT/EST MRIon 09-19-2018 Protein mass conc Performed at [facility] APPROVED BY: Danny Suárez MD Exam: Attempted MRI on 09/19/2018 15:17. Technique: The patient was scheduled for an MRI. An MRI was attempted per physician order. The patient does not fit into the scanner. IMPRESSION: Unable to perform MRI. Normal [facility] MDRD GFRon 09-19-2018 GFR/1.73 sq M predicted among non-blacks MDRD vol rate/area (S/P/Bld) mL/min/{1.73_m2} Normal >60mL/min/1.7 3m2 [facility] Comment on above: Result Comment: If t he patient is , multiply the result by 1.210. Performed By: #### G FR #### [facility] [address] [id number] Magnesium Bloodon 09-19-2018 Magnesium mass conc 2.0 mg/dL Normal 1.6-2.6 [facility] Comment on above: Performed By: #### M AG #### [facility] [address] [place], [place] [address] Vital Signs Date Time Vital Sign Value Performing Clinician Facility 01-28-2025 14:16-0400 Body mass index (BMI) [Ratio] 54.72 kg/m2 Johanny Marmolejo APRN.CNP Work Phone: [facility] 01-28-2025 14:16-0400 Body weight 153.77 kg Johanny Marmolejo APRN.CNP Work Phone: [facility] 01-28-2025 14:16-0400 Diastolic blood pressure 78 mm[Hg] Johanny Marmolejo APRN.CNP Work Phone: [facility] 01-28-2025 14:16-0400 Heart rate 72 /min Johanny Marmolejo APRN.CNP Work Phone: [facility] 01-28-2025 14:16-0400 SaO2% (BldA) [Mass fraction] 98 % Johanny Marmolejo APRN.CNP Work Phone: [facility] 01-28-2025 14:16-0400 Systolic blood pressure 128 mm[Hg] Johanny Marmolejo APRN.[employer] Work Phone: [facility] 11-06-2024 15:19-0400 Body height 170.2 cm Vargas Shoals PA-C Work Phone: [facility] 11-06-2024 15:19-0400 Body mass index (BMI) [Ratio] 55.26 kg/m2 Vargas Guanako PA-C Work Phone: [facility] 11-06-2024 15:19-0400 Body weight 160.03 kg Vargas Shoals PA-C Work Phone: [facility] 11-06-2024 15:19-0400 Diastolic blood pressure 88 mm[Hg] Vargas Guanako PA-C Work Phone: [facility] 11-06-2024 15:19-0400 Heart rate 91 /min Vargas Guanako PA-C Work Phone: [facility] 11-06-2024 15:19-0400 Systolic blood pressure 142 mm[Hg] Vargas Shoals PA-C Work Phone: [facility] 07-11-2024 08:46-0500 Body height 170.2 cm Vargas Guanako PA-C Work Phone: [facility] 07-11-2024 08:46-0500 Body mass index (BMI) [Ratio] 53.41 kg/m2 Vargas Guanako PA-C Work Phone: [facility] 07-11-2024 08:46-0500 Body weight 154.68 kg Vargas Guanako PA-C Work Phone: [facility] 07-11-2024 08:46-0500 Diastolic blood pressure 85 mm[Hg] Vargas Shoals PA-C Work Phone: [facility] 07-11-2024 08:46-0500 Heart rate 79 /min Vargas Mujica PA-C Work Phone: [facility] 07-11-2024 08:46-0500 Systolic blood pressure 129 mm[Hg] Vargas Mujica PA-C Work Phone: [facility] 06-07-2024 16:11-0400 Body mass index (BMI) [Ratio] 54.02 kg/m2 Kamilla Brigotti [employer] Work Phone: [facility] 06-07-2024 16:11-0400 Body temperature 97.2 [degF] Kamilla Brigotti [employer] Work Phone: [facility] 06-07-2024 16:11-0400 Body weight 151.8 kg Kamilla Brigotti [employer] Work Phone: [facility] 06-07-2024 16:11-0400 Diastolic blood pressure 86 mm[Hg] Kamilla Brigotti [employer] Work Phone: [facility] 06-07-2024 16:11-0400 Heart rate 98 /min Kamilla Brigotti [employer] Work Phone: [facility] 06-07-2024 16:11-0400 Respiratory rate 16 /min Kamilla Brigotti [employer] Work Phone: [facility] 06-07-2024 16:11-0400 SaO2% (BldA) [Mass fraction] 99 % Kamilla Brigotti [employer] Work Phone: [facility] 06-07-2024 16:11-0400 Systolic blood pressure 128 mm[Hg] Kamilla Brigotti [employer] Work Phone: [facility] 04-24-2024 15:24-0400 Body mass index (BMI) [Ratio] 52.77 kg/m2 Ami Delgado [employer] Work Phone: [facility] 04-24-2024 15:24-0400 Body temperature 98.49 [degF] Ami Delgado APRN.[employer] Work Phone: [facility] 04-24-2024 15:24-0400 Body weight 148.3 kg Ami Delgado APRN.[employer] Work Phone: [facility] 04-24-2024 15:24-0400 Diastolic blood pressure 86 mm[Hg] Ami Delgado APRN.[employer] Work Phone: [facility] 04-24-2024 15:24-0400 Heart rate 88 /min Ami Delgado APRN.[employer] Work Phone: [facility] 04-24-2024 15:24-0400 Respiratory rate 20 /min Ami Delgado APRN.[employer] Work Phone: [facility] 04-24-2024 15:24-0400 SaO2% (BldA) [Mass fraction] 98 % Ami Delgado APRN.[employer] Work Phone: [facility] 04-24-2024 15:24-0400 Systolic blood pressure 132 mm[Hg] Ami Delgado APRN.[employer] Work Phone: [facility] 02-28-2024 13:20-0400 Body height 170.2 cm Vargas WATKINS-C Work Phone: [facility] 02-28-2024 13:20-0400 Body mass index (BMI) [Ratio] 51.22 kg/m2 Vargas WATKINS-C Work Phone: [facility] 02-28-2024 13:20-0400 Body weight 148.33 kg Vargas Mujica PA-C Work Phone: [facility] 02-28-2024 13:20-0400 Diastolic blood pressure 77 mm[Hg] Vargas Mujica PA-C Work Phone: [facility] 02-28-2024 13:20-0400 Heart rate 61 /min Vargas Mujica PA-C Work Phone: [facility] 02-28-2024 13:20-0400 Systolic blood pressure 111 mm[Hg] Vargas Mujica PA-C Work Phone: [facility] 10-19-2023 12:00-0500 Body temperature 98.1 [degF] [facility] 10-19-2023 12:00-0500 Diastolic blood pressure 98 mm[Hg] [facility] 10-19-2023 12:00-0500 Heart rate 84 /min [facility] 10-19-2023 12:00-0500 Respiratory rate 18 /min [facility] 10-19-2023 12:00-0500 SaO2% (BldA) [Mass fraction] 99 % [facility] 10-19-2023 12:00-0500 Systolic blood pressure 132 mm[Hg] [facility] 10-19-2023 09:13-0500 Body height 165.1 cm [facility] 10-19-2023 09:13-0500 Body mass index (BMI) [Ratio] 51.4 kg/m2 [facility] 10-19-2023 09:13-0500 Body weight 140.21 kg [facility] 10-03-2023 13:24-0500 Diastolic blood pressure 70 mm[Hg] [facility] 10-03-2023 13:24-0500 Heart rate 62 /min [facility] 10-03-2023 13:24-0500 Systolic blood pressure 148 mm[Hg] [facility] 10-03-2023 09:51-0500 Body mass index (BMI) [Ratio] 51.2 kg/m2 [facility] 10-03-2023 09:51-0500 Body temperature 98.4 [degF] [facility] 10-03-2023 09:51-0500 Body weight 139.88 kg [facility] 10-03-2023 09:51-0500 Respiratory rate 18 /min [facility] 10-03-2023 09:51-0500 SaO2% (BldA) [Mass fraction] 100 % [facility] 09-25-2023 08:05-0500 Body height 165.1 cm Vargaspili Morenoall PA-C Work Phone: [facility] 09-25-2023 08:05-0500 Body mass index (BMI) [Ratio] 50.42 kg/m2 Vargaspili EdenGuanako PA-C Work Phone: [facility] 09-25-2023 08:05-0500 Body weight 137.44 kg Vargaspili Morenoall PA-C Work Phone: [facility] 09-25-2023 08:05-0500 Diastolic blood pressure 80 mm[Hg] Vargaspili Morenoall PA-C Work Phone: [facility] 09-25-2023 08:05-0500 Heart rate 80 /min Vargaspili Morenoall PA-C Work Phone: [facility] 09-25-2023 08:05-0500 Systolic blood pressure 124 mm[Hg] Vargas Guanako PA-C Work Phone: [facility] 05-15-2023 18:52-0400 Blood Pressure Location KVNG DOMINGUEZ MD [facility] 05-15-2023 18:52-0400 Blood Pressure Method KVNG DOMINGUEZ MD [facility] 05-15-2023 18:52-0400 Diastolic Blood Pressure Non-Invasive 76 1 KVNG DOMINGUEZ MD [facility] 05-15-2023 18:52-0400 Heart rate 73 /min KVNG DOMINGUEZ MD [facility] 05-15-2023 18:52-0400 Respiratory rate 18 /min KVNG DOMINGUEZ MD [facility] 05-15-2023 18:52-0400 Systolic Blood Pressure Non-Invasive 105 1 KVNG DOMINGUEZ MD [facility] 05-15-2023 16:31-0400 Blood Pressure Location KVNG DOMINGUEZ MD [facility] 05-15-2023 16:31-0400 Blood Pressure Method KVNG DOMINGUEZ MD [facility] 05-15-2023 16:31-0400 Body temperature 98.24 [degF] KVNG DOMINGUEZ MD [facility] 05-15-2023 16:31-0400 Diastolic Blood Pressure Non-Invasive 85 1 KVNG DOMINGUEZ MD [facility] 05-15-2023 16:31-0400 Heart rate 82 /min KVNG DOMINGUEZ MD [facility] 05-15-2023 16:31-0400 Respiratory rate 18 /min KVNG DOMINGUEZ MD [facility] 05-15-2023 16:31-0400 Systolic Blood Pressure Non-Invasive 112 1 KVNG DOMINGUEZ MD [facility] 02-09-2023 15:24-0400 Body height 165.1 cm Vargas WATKINS-Rina Work Phone: [facility] 02-09-2023 15:24-0400 Body mass index (BMI) [Ratio] 52.25 kg/m2 Vargas WATKINS-C Work Phone: [facility] 02-09-2023 15:24-0400 Body weight 142.43 kg Vargas WATKINS-C Work Phone: [facility] 02-09-2023 15:24-0400 Diastolic blood pressure 64 mm[Hg] Vargas WATKINS-Rina Work Phone: [facility] 02-09-2023 15:24-0400 Heart rate 72 /min Vargas Shoals PA-C Work Phone: [facility] 02-09-2023 15:24-0400 Systolic blood pressure 120 mm[Hg] Vargas Shoals PA-C Work Phone: [facility] 01-05-2023 07:12-0400 Body height 167.64 cm PA Vargas Guanako PA Work Phone: [facility] 01-05-2023 07:12-0400 Body mass index (BMI) [Ratio] 51.2 kg/m2 PA Vargas Shoals PA Work Phone: [facility] 01-05-2023 07:12-0400 Body temperature 98.1 [degF] PA Vargas Shoals PA Work Phone: [facility] 01-05-2023 07:12-0400 Body weight 144.2 kg PA Vargas Shoals PA Work Phone: [facility] 01-05-2023 07:12-0400 Diastolic blood pressure 90 mm[Hg] PA Vargas Guanako PA Work Phone: [facility] 01-05-2023 07:12-0400 Heart rate 63 /min PA Vargas Guanako PA Work Phone: [facility] 01-05-2023 07:12-0400 Respiratory rate 14 /min PA Vargas Shoals PA Work Phone: [facility] 01-05-2023 07:12-0400 SaO2% (BldA) [Mass fraction] 97 % PA Vargas Shoals PA Work Phone: [facility] 01-05-2023 07:12-0400 Systolic blood pressure 141 mm[Hg] PA Vargas Shoals PA Work Phone: [facility] 01-01-2023 09:17-0400 Body temperature 98.49 [degF] Shahid Gamble APRN.CNP Work Phone: [facility] 01-01-2023 09:17-0400 Body weight 99.34 kg Shahid Gamble [employer] Work Phone: [facility] 01-01-2023 09:17-0400 Diastolic blood pressure 78 mm[Hg] Shahid Gamble [employer] Work Phone: [facility] 01-01-2023 09:17-0400 Heart rate 79 /min Shahid Tye [employer] Work Phone: [facility] 01-01-2023 09:17-0400 Respiratory rate 18 /min Shahid Gamble [employer] Work Phone: [facility] 01-01-2023 09:17-0400 SaO2% (BldA) [Mass fraction] 98 % Shahid Gamble [employer] Work Phone: [facility] 01-01-2023 09:17-0400 Systolic blood pressure 112 mm[Hg] Shahid Gamble [employer] Work Phone: [facility] 11-15-2022 13:42-0400 Diastolic blood pressure 89 mm[Hg] PA Vargaspili Morenoall PA Work Phone: [facility] 11-15-2022 13:42-0400 Heart rate 57 /min PA Vargas Shoals PA Work Phone: [facility] 11-15-2022 13:42-0400 Respiratory rate 21 /min PA Vargas Guanako PA Work Phone: [facility] 11-15-2022 13:42-0400 SaO2% (BldA) [Mass fraction] 98 % PA Vargas Guanako PA Work Phone: [facility] 11-15-2022 13:42-0400 Systolic blood pressure 127 mm[Hg] PA Vargas Guanako PA Work Phone: [facility] 11-15-2022 11:50-0400 Body height 167.64 cm PA Vargas Shoals PA Work Phone: [facility] 11-15-2022 11:50-0400 Body mass index (BMI) [Ratio] 53.8 kg/m2 PA Vargas Mujica PA Work Phone: [facility] 11-15-2022 11:50-0400 Body temperature 97.3 [degF] PA Vargaspili Morenoall PA Work Phone: [facility] 11-15-2022 11:50-0400 Body weight 151.49 kg PA Vargaspili Morenoall PA Work Phone: [facility] 11-08-2022 11:11-0400 Body temperature 98.29 [degF] Krislyn Aberegg PA Work Phone: [facility] 11-08-2022 11:11-0400 Body weight 152.5 kg Krislyn Aberegg PA Work Phone: [facility] 11-08-2022 11:11-0400 Diastolic blood pressure 76 mm[Hg] Krislyn Aberegg PA Work Phone: [facility] 11-08-2022 11:11-0400 Heart rate 72 /min Krislyn Aberegg PA Work Phone: [facility] 11-08-2022 11:11-0400 Respiratory rate 18 /min Krislyn Aberegg PA Work Phone: [facility] 11-08-2022 11:11-0400 SaO2% (BldA) [Mass fraction] 97 % Krislyn Aberegg PA Work Phone: [facility] 11-08-2022 11:11-0400 Systolic blood pressure 118 mm[Hg] Krislyn Aberegg PA Work Phone: [facility] 09-22-2022 13:27-0500 Body temperature 98.4 [degF] Ami Delgado APRN.[employer] Work Phone: [facility] 09-22-2022 13:27-0500 Body weight 156.58 kg Ami Delgado APRN.[employer] Work Phone: [facility] 09-22-2022 13:27-0500 Diastolic blood pressure 76 mm[Hg] Ami James [employer] Work Phone: [facility] 09-22-2022 13:27-0500 Heart rate 99 /min Ami Delgado [employer] Work Phone: [facility] 09-22-2022 13:27-0500 Respiratory rate 22 /min Ami Delgado [employer] Work Phone: [facility] 09-22-2022 13:27-0500 SaO2% (BldA) [Mass fraction] 98 % Ami Delgado [employer] Work Phone: [facility] 09-22-2022 13:27-0500 Systolic blood pressure 128 mm[Hg] Ami Delgado [employer] Work Phone: [facility] 08-17-2022 11:33-0500 Diastolic blood pressure 95 mm[Hg] [facility] 08-17-2022 11:33-0500 Heart rate 72 /min [facility] 08-17-2022 11:33-0500 Respiratory rate 16 /min [facility] 08-17-2022 11:33-0500 SaO2% (BldA) [Mass fraction] 98 % [facility] 08-17-2022 11:33-0500 Systolic blood pressure 122 mm[Hg] [facility] 08-17-2022 08:08-0500 Body height 167.64 cm [facility] Work Phone: 08-17-2022 08:08-0500 Body mass index (BMI) [Ratio] 56.5 kg/m2 [facility] 08-17-2022 08:08-0500 Body temperature 96.9 [degF] [facility] 08-17-2022 08:08-0500 Body weight 158.75 kg [facility] 07-27-2022 08:10-0500 Body height 165.1 cm Vargas Mujica Work Phone: [facility] Work Phone: 07-27-2022 08:10-0500 Body mass index (BMI) [Ratio] 59.24 kg/m2 Vargas Mujica Work Phone: [facility] Work Phone: 07-27-2022 08:10-0500 Body surface area Derived from formula 2.53 m2 Vargas Mujica Work Phone: [facility] Work Phone: 07-27-2022 08:10-0500 Body weight 161.48 kg Vargas Mujica Work Phone: [facility] Work Phone: 07-27-2022 08:10-0500 Diastolic blood pressure 83 mm[Hg] Vargas Mujica Work Phone: [facility] Work Phone: 07-27-2022 08:10-0500 Heart rate 80 /min Vargas Mujica Work Phone: [facility] Work Phone: 07-27-2022 08:10-0500 Systolic blood pressure 133 mm[Hg] Vargas Mujica Work Phone: [facility] Work Phone: 07-12-2022 07:44-0500 Body height 167.[address] Work Phone: [facility] 07-12-2022 07:44-0500 Body weight 148.[address] Work Phone: [facility] 07-12-2022 07:41-0500 Body height 167.6 cm Marjan Eddy [employer] Work Phone: [facility] 07-12-2022 07:41-0500 Body weight 148.78 kg Marjan Harveyky [employer] Work Phone: [facility] 06-03-2022 08:47-0400 Body weight 159.[address] Work Phone: [facility] 06-02-2022 09:07-0400 Body height 167.6 cm Marjan Gromovsky [employer] Work Phone: [facility] 06-02-2022 09:07-0400 Body weight 159.67 kg Marjan Gromovsky [employer] Work Phone: [facility] 04-21-2022 12:41-0400 Body height 167.[address] Work Phone: [facility] 04-21-2022 12:41-0400 Body weight [address] Work Phone: [facility] 04-19-2022 09:56-0400 Body height 167.6 cm Marjan Gromovsky [employer] Work Phone: [facility] 04-19-2022 09:56-0400 Body weight 176.18 kg Marjan Gromovsky [employer] Work Phone: [facility] 04-19-2022 09:56-0400 Diastolic blood pressure 97 mm[Hg] Marjan Gromovsky [employer] Work Phone: [facility] 04-19-2022 09:56-0400 Heart rate 80 /min Marjan Gromovsky [employer] Work Phone: [facility] 04-19-2022 09:56-0400 Systolic blood pressure 135 mm[Hg] Marjan Gromovsky [employer] Work Phone: [facility] 03-31-2022 11:31-0400 Body height 167.6 cm Marjan Gromovsky [employer] Work Phone: [facility] 03-31-2022 11:31-0400 Body weight 183.71 kg Marjan Gromovsky [employer] Work Phone: [facility] 03-30-2022 08:53-0400 Body height 165.1 cm Vargas Mujica Work Phone: [facility] Work Phone: 03-30-2022 08:53-0400 Body mass index (BMI) [Ratio] 68.06 kg/m2 Vargas Mujica Work Phone: [facility] Work Phone: 03-30-2022 08:53-0400 Body surface area Derived from formula 2.68 m2 Vargas Mujica Work Phone: [facility] Work Phone: 03-30-2022 08:53-0400 Body weight 185.52 kg Vargas Mujica Work Phone: [facility] Work Phone: 03-30-2022 08:53-0400 Diastolic blood pressure 74 mm[Hg] Vargas Mujica Work Phone: [facility] Work Phone: 03-30-2022 08:53-0400 Heart rate 98 /min Vargas Mujica Work Phone: [facility] Work Phone: 03-30-2022 08:53-0400 Systolic blood pressure 132 mm[Hg] Vargas Mujica Work Phone: [facility] Work Phone: 03-24-2022 10:42-0400 Body height 167.6 cm Tata Rosas MD Work Phone: [facility] 03-24-2022 10:42-0400 Body weight 183.71 kg Tata Rosas MD Work Phone: [facility] 03-16-2022 09:44-0400 Body height 167.[address] Work Phone: [facility] 03-16-2022 09:44-0400 Body weight 183.[address] Work Phone: [facility] 02-15-2022 08:22-0400 Body height 167.[address] Work Phone: [facility] 02-15-2022 08:22-0400 Body weight 183.[address] Work Phone: [facility] 02-15-2022 08:21-0400 Body height 167.6 cm Marjan Gromovsky [employer] Work Phone: [facility] 02-15-2022 08:21-0400 Body weight 183.71 kg Marjan Gromovsky [employer] Work Phone: [facility] 01-18-2022 08:47-0400 Body height 167.6 cm Marjan Gromovsky [employer] Work Phone: [facility] 01-18-2022 08:47-0400 Body weight 187.79 kg Marjan Gromovsky [employer] Work Phone: [facility] 01-13-2022 10:48-0400 Body height 167.6 cm Brooks Soto MD Work Phone: [facility] 01-13-2022 10:48-0400 Body weight 187.97 kg Brooks Soto MD Work Phone: [facility] 01-13-2022 10:48-0400 Diastolic blood pressure 76 mm[Hg] Brooks Soto MD Work Phone: [facility] 01-13-2022 10:48-0400 Heart rate 100 /min Brooks Soto MD Work Phone: [facility] 01-13-2022 10:48-0400 SaO2% (BldA) [Mass fraction] 96 % Brooks Soto MD Work Phone: [facility] 01-13-2022 10:48-0400 Systolic blood pressure 128 mm[Hg] Brooks Soto MD Work Phone: [facility] 01-03-2022 15:28-0400 Body height 167.6 cm Hung Emerson MD Work Phone: [facility] 01-03-2022 15:28-0400 Body temperature 97 [degF] Hung Emerson MD Work Phone: [facility] 01-03-2022 15:28-0400 Body weight 188.24 kg Hung Emerson MD Work Phone: [facility] 01-03-2022 15:28-0400 Diastolic blood pressure 88 mm[Hg] Hung Emerson MD Work Phone: [facility] 01-03-2022 15:28-0400 Heart rate 86 /min Hung Emerson MD Work Phone: [facility] 01-03-2022 15:28-0400 Respiratory rate 20 /min Hung Emerson MD Work Phone: [facility] 01-03-2022 15:28-0400 SaO2% (BldA) [Mass fraction] 97 % Hung Emerson MD Work Phone: [facility] 01-03-2022 15:28-0400 Systolic blood pressure 138 mm[Hg] Hung Emerson MD Work Phone: [facility] 12-28-2021 09:30-0400 Body height 165.1 cm Vargas Mujica Work Phone: [facility] Work Phone: 12-28-2021 09:30-0400 Diastolic blood pressure 72 mm[Hg] Vargas Mujica Work Phone: [facility] Work Phone: 12-28-2021 09:30-0400 Heart rate 96 /min Vargas Mujica Work Phone: [facility] Work Phone: 12-28-2021 09:30-0400 Systolic blood pressure 120 mm[Hg] Vargas Mujica Work Phone: [facility] Work Phone: 12-27-2021 08:08-0400 Body height 167.[address] Work Phone: [facility] 12-27-2021 08:08-0400 Body weight 190.[address] Work Phone: [facility] 12-24-2021 08:37-0400 Body height 167.6 cm Marjan Gromovsky [employer] Work Phone: [facility] 12-24-2021 08:37-0400 Body weight 187.79 kg Marjan Gromovsky [employer] Work Phone: [facility] 12-24-2021 08:37-0400 Diastolic blood pressure 80 mm[Hg] Marjan Gromovsky [employer] Work Phone: [facility] 12-24-2021 08:37-0400 Heart rate 97 /min Marjan Gromovsky [employer] Work Phone: [facility] 12-24-2021 08:37-0400 Respiratory rate 18 /min Marjan Gromovsky PIT FURNACE MELTER.[employer]TAIN [employer]LL[employer] Work Phone: [facility] 12-24-2021 08:37-0400 SaO2% (BldA) [Mass fraction] 96 % Marjan Gromovsky PIT FURNACE MELTER.[employer]LL[employer] BL[employer]STITCH Work Phone: [facility] 12-24-2021 08:37-0400 Systolic blood pressure 120 mm[Hg] Marjan Gromovsky PIT FURNACE MELTER.[employer]LL[employer] Work Phone: [facility] 11-19-2021 08:25-0400 Body height 167.6 cm Marjan Gromovsky PIT FURNACE MELTER.[employer]LL[employer] Work Phone: [facility] 11-19-2021 08:25-0400 Body weight 185.52 kg Marjan Gromovsky PIT FURNACE MELTER.[employer]LL[employer] BL[employer]ITCH Work Phone: [facility] 11-11-2021 08:48-0400 Body height 165.1 cm Vargas Mujica Work Phone: [facility] Internal Medicine Work Phone: 11-11-2021 08:48-0400 Body mass index (BMI) [Ratio] 68.06 kg/m2 Vargas Mujica Work Phone: [facility] Medicine Work Phone: 11-11-2021 08:48-0400 Body surface area Derived from formula 2.68 m2 Vargas Mujica Work Phone: [facility] Medicine Work Phone: 11-11-2021 08:48-0400 Body weight 185.52 kg Vargas Mujica Work Phone: [facility] Medicine Work Phone: 11-11-2021 08:48-0400 Diastolic blood pressure 82 mm[Hg] Vargas Mujica Work Phone: [facility] Medicine Work Phone: 11-11-2021 08:48-0400 Heart rate 102 /min Vargas Mujica Work Phone: [facility] Work Phone: 11-11-2021 08:48-0400 Systolic blood pressure 114 mm[Hg] Vargas Mujica Work Phone: [facility] Medicine Work Phone: 07-28-2021 09:20-0500 Body height 165.1 cm Vargas Mujica Work Phone: [facility] Work Phone: 07-28-2021 09:20-0500 Body mass index (BMI) [Ratio] 66.4 kg/m2 Vargas Morenoall Work Phone: [facility] Medicine Work Phone: 07-28-2021 09:20-0500 Body surface area Derived from formula 2.65 m2 Vargas Mujica Work Phone: [facility] Medicine Work Phone: 07-28-2021 09:20-0500 Body weight 180.99 kg Vargas Mujica Work Phone: [facility] Medicine Work Phone: 07-28-2021 09:20-0500 Diastolic blood pressure 76 mm[Hg] Vargas Mujica Work Phone: [facility] Work Phone: 07-28-2021 09:20-0500 Heart rate 79 /min Vargas Mujica Work Phone: [facility] Work Phone: 07-28-2021 09:20-0500 SaO2% (BldA) [Mass fraction] 97 % Vargas Mujica Work Phone: [facility] Work Phone: 07-28-2021 09:20-0500 Systolic blood pressure 124 mm[Hg] Vargas Mujica Work Phone: [facility] Work Phone: 05-25-2021 15:58-0400 Body height 165.1 cm Vargas Mujica Work Phone: [facility] Work Phone: 05-25-2021 15:58-0400 Body mass index (BMI) [Ratio] 64.9 kg/m2 Vargas Mujica Work Phone: [facility] Work Phone: 05-25-2021 15:58-0400 Body surface area Derived from formula 2.63 m2 Vargas Mujica Work Phone: [facility] Medicine Work Phone: 05-25-2021 15:58-0400 Body weight 176.9 kg Vargas Mujica Work Phone: [facility] Work Phone: 05-25-2021 15:58-0400 Diastolic blood pressure 76 mm[Hg] Vargas Ayon Guanako Work Phone: [facility] Work Phone: 05-25-2021 15:58-0400 Heart rate 64 /min Vargas Edenenhall Work Phone: [facility] Work Phone: 05-25-2021 15:58-0400 Systolic blood pressure 122 mm[Hg] Vargas Morenoall Work Phone: [facility] Medicine Work Phone: Encounters Encounter Date Encounter Type Care Provider Facility Start: 06-14-2025 ambulatory Vargas Hou cility:[facility] Start: 06-10-2025 End: 06-10-2025 Office outpatient visit 25 minutes Vargas Mujica PA-C Work Phone: 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; Class 3 severe obesity due to excess calories with serious comorbidity and body mass index (BMI) of 50.0 to 59.9 in adult ([facility]); Fatty liver disease, nonalcoholic; Depression, major, single episode, moderate (Multi); Generalized anxiety disorder; Insomnia secondary to depression with anxiety Start: 06-10-2025 End: 06-10-2025 ambulatory VARGAS Ayon [facility] Start: 06-03-2025 End: 06-03-2025 ambulatory VARGAS MUJICA Facility:[facility] Start: 06-03-2025 Encounter for gynecological examination (general) (routine) without abnormal findings DEE DEE LOUISE [facility] Start: 05-08-2025 End: 05-08-2025 ambulatory Vargas WATKINS Facility:[facility] Start: 02-20-2025 ambulatory Vargas Hou cility:[facility] Start: 02-20-2025 End: 02-20-2025 ambulatory Vargas WATKINS Facility:[facility] Start: 02-10-2025 End: 02-10-2025 Follow-up encounter Johanny Marmolejo APRN.CNP Work Phone: [facility] Comment on above: Follow Up Tests Resu lts Start: 01-29-2025 End: 01-29-2025 Telephone encounter Johanny Marmolejo APRN.[employer] Work Phone: [facility] Start: 01-28-2025 End: 01-28-2025 Patient encounter procedure Johanny Marmolejo APRN.[employer]ITCH Work Phone: [facility] Comment on above: Sinus bradycardia (P rimary Dx); Encounter for screening for cardiovascular disorders; Chest pain, unspecified type; Wide-complex tachycardia; BMI 50.0-59.9, adult ([facility]) Start: 01-28-2025 End: 01-28-2025 ambulatory JOHANNY MARMOLEJO Facility:[facility] Start: 01-21-2025 ambulatory Vargas WATKINS Fa cility:[facility] Start: 01-09-2025 End: 01-13-2025 Telephone encounter Tomasz Garay MD Work Phone: Cardiology Comment on above: Appointment; Patient Update Start: 01-06-2025 ambulatory Vargas WATKINS Fa cility:[facility] Start: 12-20-2024 End: 12-20-2024 Emergency department patient visit Vargas WATKINS Facility:[facility] Start: 12-10-2024 ambulatory Vargas WATKINS Fa cility:[facility] Start: 12-04-2024 ambulatory Vargas WATKINS Fa cility:[facility] Start: 11-06-2024 End: 11-06-2024 Office outpatient visit 25 minutes Vargas Mujica PA-C Work Phone: [facility] Internal [facility] Comment on above: Acute foot [...] Depression, major, single episode, moderate (Multi); AAT (rcufr-8-uehmuopqdqs) deficiency (Multi); Encounter for dietary counseling and surveillance; Fatty liver disease, nonalcoholic Start: 11-06-2024 End: 11-07-2024 ambulatory [facility] Ambulatory Start: 10-28-2024 End: 10-28-2024 ambulatory Vargas WATKINS Facility:[facility] Start: 10-23-2024 End: 10-23-2024 Emergency department patient visit Vargas WATKINS Facility:[facility] Start: 10-09-2024 ambulatory Vargas WATKINS Fa cility:[facility] Start: 09-24-2024 End: 09-24-2024 ambulatory Vargas WATKINS Facility:[facility] Start: 09-18-2024 ambulatory Vargas WATKINS Fa cility:[facility] Start: 09-12-2024 ambulatory Vargas WATKINS Fa cility:[facility] Start: 09-12-2024 End: 09-12-2024 ambulatory Lali Hu Facility:[facility] Start: 09-04-2024 End: 09-04-2024 ambulatory Vargas WATKINS Facility:[facility] Start: 07-31-2024 End: 07-31-2024 ambulatory Vargas WATKINS Facility:[facility] Start: 07-11-2024 End: 07-11-2024 Subsequent hospital visit by physician Huang [id number] X-Ray [facility] Comment on above: Chronic midline low back pain with sciatica, sciatica laterality unspecified Cervicalgia Start: 07-11-2024 End: 07-11-2024 ambulatory [facility] Start: 07-11-2024 End: 07-11-2024 Office outpatient visit 25 minutes Vargas Mujica PA-C Work Phone: [facility] Internal Medicine Comment on above: Cervicalgia (Primary [...] laterality unspecified Start: 07-11-2024 End: 07-11-2024 ambulatory VARGAS Ayon [facility] Ambulatory Start: 06-07-2024 End: 06-07-2024 Patient encounter procedure Kamilla Coon APRN.[employer] BL[employer]STITCH Work Phone: [facility] Comment on above: Foot pain, left (Mulu nikita Dx); Injury of left foot, initial encounter Start: 06-07-2024 End: 06-07-2024 Subsequent hospital visit by physician Taty [facility] Work Phone: Radiology Comment on above: Foot pain, left [M79 .672] Start: 04-25-2024 End: 04-25-2024 Telephone encounter Donnie WATKINS Work Phone: [facility] Start: 04-24-2024 End: 04-24-2024 Subsequent hospital visit by physician Taty [facility] Work Phone: Radiology Comment on above: Acute cough [R05.1] Start: 04-24-2024 End: 04-24-2024 Patient encounter procedure Ami Delgado APRN.[employer] BL[employer]STITCH Work Phone: [facility] Comment on above: URI, acute (Primary Dx); Acute cough Start: 02-28-2024 End: 02-28-2024 Office outpatient visit 25 minutes Vargas HENRYC Work Phone: [facility] Internal Medicine Comment on above: Major depressive [...] 10-19-2023 End: 10-19-2023 Emergency department patient visit [facility] Work Phone: Start: 10-03-2023 Telephone encounter Tomasz Garay MD Work Phone: Cardiology Comment on above: Patient Question (pa lpations) Start: 10-03-2023 End: 10-03-2023 Emergency department patient visit [facility] Work Phone: Start: 09-25-2023 End: 09-25-2023 ambulatory VARGAS MUJICA [facility] Start: 09-25-2023 End: 09-25-2023 Office outpatient visit 25 minutes Vargas Mujica PA-C Work Phone: [facility] Internal Medicine Comment on above: Major depressive dis order, single episode, moderate (CMS/HCC) (Primary Dx); Anxiety; Gastroesophageal reflux disease, unspecified whether esophagitis present; Glucose intolerance (impaired glucose tolerance); Shahzad's disease; Vitamin D deficiency; Fatty liver disease, nonalcoholic; Elevated ferritin level; Depression, major, single episode, moderate (CMS/HCC); Generalized anxiety disorder; AAT (xbhwc-4-dfpwqbujxqn) deficiency (CMS/HCC); Encounter for screening mammogram for breast cancer; Class 3 severe obesity due to excess calories with serious comorbidity and body mass index (BMI) of 50.0 to 59.9 in adult (CMS/HCC) Start: 05-15-2023 End: 05-15-2023 Emergency department patient visit KVNG DOMINGUEZ MD [facility] Start: 02-21-2023 Telephone encounter Tomasz Garay MD Work Phone: Cardiology Comment on above: ZIO RESULTS Start: 02-09-2023 End: 02-09-2023 Office outpatient visit 25 minutes Vargas Mujica PA-C Work Phone: [facility] Internal Medicine Comment on above: Generalized anxiety disorder (Primary Dx); Anxiety; Fatty liver disease, nonalcoholic; Glucose intolerance (impaired glucose tolerance); Shahzad's disease; Vitamin D deficiency; Polyarthralgia; Medication management; Urinary incontinence, unspecified type; Insomnia secondary to depression with anxiety; Palpitations; Ankylosing spondylitis, unspecified site of spine ([facility]); Class 3 severe obesity due to excess calories with serious comorbidity and body mass index (BMI) of 50.0 to 59.9 in adult ([facility]); Depression, major, single episode, moderate ([facility]) Start: 01-09-2023 Orders Only Tomasz Garay MD Work Phone: Cardiology Comment on above: Dizzy (Primary Dx) Start: 01-05-2023 End: 01-05-2023 Emergency department patient visit [facility]INS [facility] Start: 01-02-2023 Telephone encounter Tomasz Garay MD Work Phone: Cardiology Comment on above: Patient Update Start: 01-01-2023 End: 01-01-2023 Patient encounter procedure Shahid Gamble APRN.CNP Work Phone: [facility] Comment on above: Dizziness (Primary D x); Bilateral impacted cerumen Start: 11-15-2022 End: 11-15-2022 Emergency department patient visit JUNE WATKINS [facility] Start: 11-08-2022 End: 11-08-2022 Subsequent hospital visit by physician Xr [facility] Work Phone: Radiology Comment on above: Foot pain, right [M7 9.671] Start: 11-08-2022 End: 11-08-2022 Patient encounter procedure Donnie WATKINS Work Phone: [facility] Comment on above: Foot pain, right (Pr imary Dx) Start: 11-02-2022 End: 11-02-2022 Patient encounter procedure JUNE WATKINS Work Phone: [facility] Start: 10-17-2022 Office outpatient vi sit 15 minutes Vargas Mujica Work Phone: [facility] Internal Medicine Work Phone: Start: 10-17-2022 ambulatory Ms. Vargas falcon Guanako Facility:[id number] Start: 10-11-2022 Orders Only Marjan fuller APRN.[employer]STITCH Work Phone: [facility] Comment on above: Increased PTH level (Primary Dx) Start: 10-10-2022 Telephone encounter Tata umanzor MD Work Phone: [facility] Comment on above: Patient Question (Na usea, abdominal pain) Start: 09-29-2022 Telephone encounter Vargas wilson Work Phone: [facility] Medicine Work Phone: Start: 09-22-2022 End: 09-22-2022 Subsequent hospital visit by physician Xr [facility] Work Phone: Radiology Comment on above: Acute cough [R05.1] Start: 09-22-2022 End: 09-22-2022 Patient encounter procedure Ami Delgado APRN.[employer]TAIN [employer]LLER BL[employer]STITCH Work Phone: [facility] Comment on above: Acute cough (Primary Dx); URI, acute; Rhinosinusitis Start: 09-20-2022 Office outpatient vi sit 25 minutes Vargas Mujica Work Phone: [facility] Medicine Work Phone: Start: 09-20-[address] Josselyn Roblero [facility]:[id number] Start: 09-18-2022 Telephone encounter Vargas wilson Work Phone: [facility] Medicine Work Phone: Start: 08-31-2022 Office outpatient vi sit 25 minutes Vargas Mujica Work Phone: [facility] Work Phone: Start: 08-31-2022 ambulatory Ms. Vargas Mujica Facility:[id number] Start: 08-28-2022 Chart Update Vargas cantu Work Phone: [facility] Work Phone: Start: 08-17-2022 End: 08-17-2022 Emergency department patient visit [facility] Start: 08-17-2022 AUDIT Vargas cantu Work Phone: [facility] Work Phone: Start: 08-15-2022 ambulatory Marjan fuller PIT FURNACE MELTER.[employer]ITCH Work Phone: [facility] Comment on above: Itching Start: 08-03-2022 Telephone encounter Vargas wilson Work Phone: [facility] Work Phone: Start: 07-27-2022 Office outpatient vi sit 25 minutes Vargas Mujica Work Phone: [facility] Work Phone: Start: 07-27-2022 ambulatory Ms. Vargas Mujica Facility:[id number] Start: 07-13-2022 AUDIT Vargas cantu Work Phone: [facility] Work Phone: Start: 07-12-2022 Telephone encounter Tata umanzor MD Work Phone: [facility] Comment on above: Appointment Start: 07-12-2022 End: 07-12-2022 Telemedicine consultation with patient Marjan Eddy PIT FURNACE MELTER.[employer]LLER BL[employer]STITCH Work Phone: [facility] Start: 07-12-2022 End: 07-12-2022 ambulatory Marjan Eddy PIT FURNACE MELTER.[employer]LLER BL[employer]STITCH Work Phone: [facility] Comment on above: S/P laparoscopic sle mariajose gastrectomy (Primary Dx); Elevated liver enzymes Start: 07-12-2022 End: 07-12-2022 Follow-up encounter Audrey Spivey RD Work Phone: [facility] Comment on above: Post Op Follow Up Start: 06-21-2022 AUDIT Vargas cantu Work Phone: [facility] Medicine Work Phone: Start: 06-14-2022 ambulatory Marjan fuller P[employer] FURNACE MELTER.[employer]LL[employer]ITCH Work Phone: [facility] Comment on above: Labs Start: 06-14-2022 E-mail encounter fro m caregiver Marjan Eddy PIT FURNACE MELTER.[employer]LLER BL[employer]STITCH Work Phone: [facility] Start: 06-03-2022 End: 06-03-[address] Work Phone: [facility] Start: 06-03-2022 End: 06-03-2022 [facility]QHC visit, estab pt Amirah Flores RD Work Phone: [facility] Comment on above: Established Patient Start: 06-02-2022 Telephone encounter [facility] Provider [facility] Comment on above: Appointment Start: 06-02-2022 End: 06-02-2022 ambulatory Marjan Eddy PIT FURNACE MELTER.CURTAIN [employer]LLER BL[employer]STITCH Work Phone: [facility] Comment on above: S/P laparoscopic sle mariajose gastrectomy (Primary Dx) Start: 06-02-2022 End: 06-02-2022 Telemedicine consultation with patient Marjan Duncan Eddy PIT FURNACE MELTER.CURTAIN FELLER BLINDSTITCH Work Phone: [facility] Start: 04-21-2022 End: 04-21-[address] Work Phone: [facility] Start: 04-21-2022 End: 04-21-2022 FQHC visit, estab pt Audrey Spivey RD Work Phone: [facility] Comment on above: Established Patient Start: 04-20-2022 Refill Marjan fuller APRN.CURTAIN [employer]LL[employer] BL[employer]STITCH Work Phone: [facility] Comment on above: Refill Request Start: 04-20-2022 Telephone encounter Tata umanzor MD Work Phone: [facility] Comment on above: Results Start: 04-19-2022 End: 04-19-2022 Subsequent hospital visit by physician [facility] Comment on above: Arrived S/P laparoscopic sle mariajose gastrectomy [Z98.84] Start: 04-19-2022 End: 04-19-2022 Patient encounter procedure Marjan Eddy APRN.CURTAIN [employer]LLER BL[employer]STITCH Work Phone: [facility] Comment on above: S/P laparoscopic sle mariajose gastrectomy (Primary Dx); Right sided abdominal pain; Hepatic fibrosis; History of DVT (deep vein thrombosis) Start: 04-18-2022 Telephone encounter Tata umanzor MD Work Phone: [facility] Comment on above: Patient Update Start: 04-14-2022 Telephone encounter Marjan rangel APRN.CURTAIN [employer]LLER BL[employer]STITCH Work Phone: [facility] Comment on above: Surgical Followup Start: 04-12-2022 Telephone encounter Tata umanzor MD Work Phone: [facility] Comment on above: Patient Update (Inpa tient rounding) Start: 04-06-2022 Telephone encounter Tata umanzor MD Work Phone: [facility] Comment on above: Patient Update Start: 04-05-2022 Telephone encounter Marjan rangel APRN.CURTAIN [employer]LLER BL[employer]STITCH Work Phone: [facility] Comment on above: Results Start: 03-31-2022 AUDIT Vargas cantu Work Phone: [facility] Work Phone: Start: 03-31-2022 Telephone encounter Tata umanzor MD Work Phone: [facility] Comment on above: Opened In Error Start: 03-31-2022 End: 03-31-2022 ambulatory Marjan Eddy PIT FURNACE MELTER.CURTAIN [employer]LLER BL[employer]STITCH Work Phone: [facility] Comment on above: Class 3 severe obesi ty due to excess calories with serious comorbidity and body mass index (BMI) of 60.0 to 69.9 in adult (HCC) (Primary Dx); History of DVT (deep vein thrombosis); Elevated liver enzymes Start: 03-31-2022 End: 03-31-2022 Telemedicine consultation with patient Marjan Eddy PIT FURNACE MELTER.CURTAIN FELLER BLINDSTITCH Work Phone: [facility] Start: 03-30-2022 ambulatory Ms. Vargas falcon Guanako Facility:[id number] Start: 03-30-2022 Encounter for other preprocedural examination Ms. Vargas Browne [place] Facility:[id number] Start: 03-29-2022 ambulatory Marjan fuller PIT FURNACE MELTER.[employer]LLER BL[employer]STITCH Work Phone: [facility] Comment on above: Vitamins Start: 03-24-2022 End: 03-24-2022 ambulatory Tata Rosas MD Work Phone: [facility] Comment on above: Class 3 severe obesi ty due to excess calories with serious comorbidity and body mass index (BMI) of 60.0 to 69.9 in adult (HCC) (Primary Dx); History of DVT (deep vein thrombosis); AAT (yxhyo-0-ymgppkcuyaq) deficiency (HCC); BRISEYDA (obstructive sleep apnea); NAFLD (nonalcoholic fatty liver disease); Heartburn Start: 03-24-2022 End: 03-24-2022 Telemedicine consultation with patient Tata Rosas MD Work Phone: [facility] Start: 03-23-2022 AUDIT Vargas cantu Work Phone: [facility] Work Phone: Start: 03-21-2022 ambulatory Marjan fuller PIT FURNACE MELTER.CURTAIN FELLER BLINDSTITCH Work Phone: [facility] Comment on above: Pre surgical Start: 03-16-2022 AUDIT Vargas Gabo cantu Work Phone: [facility] Work Phone: Start: 03-16-2022 End: 03-16-[address] Work Phone: [facility] Comment on above: Class 3 severe obesi ty due to excess calories with serious comorbidity and body mass index (BMI) of 60.0 to 69.9 in adult (HCC) (Primary Dx) Start: 03-16-2022 End: 03-16-2022 Telemedicine consultation with patient Amirah Garrisonmonisha RD Work Phone: [facility] Start: 03-15-2022 Telephone encounter Tata umanzor MD Work Phone: [facility] Comment on above: Appointment Start: 03-02-2022 Telephone encounter Nasrin rojas PIT FURNACE MELTER.CURTAIN [employer]LLER BLINDSTITCH Work Phone: Pulmonary Medicine Comment on above: Opened In Error Start: 03-01-2022 Orders Only Tata Rosas MD Work Phone: [facility] Comment on above: Morbid obesity (HCC) (Primary Dx) Start: 02-15-2022 End: 02-15-2022 ambulatory Marjan Eddy PIT FURNACE MELTER.CURTAIN FELLER BLINDSTITCH Work Phone: [facility] Comment on above: Class 3 severe obesi ty due to excess calories with serious comorbidity and body mass index (BMI) of 60.0 to 69.9 in adult (HCC) (Primary Dx); Elevated liver enzymes; COVID-19 long hauler; BRISEYDA (obstructive sleep apnea) Dietary counseling a nd surveillance Start: 02-15-2022 End: 02-15-2022 Telemedicine consultation with patient Marjan Eddy PIT FURNACE MELTER.CURTAIN [employer]LLER BLINDSTITCH Work Phone: [facility] Start: 02-10-2022 Telephone encounter Hung buck MD Work Phone: Pulmonary Medicine Comment on above: FYI-No Action Needed Start: 02-09-2022 Telephone encounter Hung buck MD Work Phone: Pulmonary Medicine Comment on above: Results Letter Start: 02-03-2022 ambulatory Brooks farnsworth MD Work Phone: [facility] Comment on above: Question regarding L IVER FIBROSIS AND ACTIVITY Start: 02-02-2022 Telephone encounter Tata umanzor MD Work Phone: [facility] Comment on above: Medical Clearance Start: 02-02-2022 End: 02-02-2022 Subsequent hospital visit by physician [facility] Comment on above: Fatty liver [K76.0] Start: 02-02-2022 End: 02-02-2022 ambulatory [facility] Comment on above: Shortness of Breath Start: 02-02-2022 End: 02-02-2022 Patient encounter procedure Pulm [facility] Start: 01-25-2022 AUDIT Vargas cantu Work Phone: [facility] Internal Medicine Work Phone: Start: 01-18-2022 End: 01-18-2022 ambulatory Marjan Eddy APRN.[employer] Work Phone: [facility] Comment on above: Class 3 severe obesi ty due to excess calories with serious comorbidity and body mass index (BMI) of 60.0 to 69.9 in adult (HCC) (Primary Dx); Elevated liver enzymes; COVID-19 long hauler; Hepatomegaly Start: 01-18-2022 End: 01-18-2022 Telemedicine consultation with patient Marjan Eddy APRN.[employer] Work Phone: [facility] Start: 01-14-2022 Telephone encounter Hung buck MD Work Phone: Pulmonary Medicine Comment on above: Results Start: 01-13-2022 End: 01-13-2022 Patient encounter procedure Brooks Soto MD Work Phone: [facility] Comment on above: Fatty liver (Primary Dx); Increased liver enzymes; Morbid obesity (HCC) Start: 01-10-2022 Message Vargas cantu Work Phone: [facility] Internal Medicine Work Phone: Start: 01-04-2022 Result Review Vargas cantu Work Phone: [facility] Internal Medicine Work Phone: Start: 01-03-2022 End: 01-03-2022 Patient encounter procedure Hung Emerson MD Work Phone: Pulmonary Medicine Comment on above: Dyspnea and respirat ory abnormalities (Primary Dx); Shortness of breath Start: 12-28-2021 ambulatory Ms. Vargas Mujica Facility:[id number] Start: 12-27-2021 Telephone encounter Brooks Soto MD Work Phone: [facility] Comment on above: Appointment Start: 12-27-2021 End: 12-27-[address] Work Phone: [facility] Comment on above: Class 3 severe obesi ty due to excess calories with serious comorbidity and body mass index (BMI) of 60.0 to 69.9 in adult (HCC) (Primary Dx) Start: 12-27-2021 End: 12-27-2021 Telemedicine consultation with patient Amirah Flores RD Work Phone: [facility] Start: 12-24-2021 Telephone encounter Edith Devi MD Work Phone: [facility] Comment on above: possible Hepatitis d iagnosis Start: 12-24-2021 End: 12-24-2021 Patient encounter procedure Marjan Eddy APRN.[employer] Work Phone: [facility] Comment on above: Class 3 severe obesi ty due to excess calories with serious comorbidity and body mass index (BMI) of 60.0 to 69.9 in adult (HCC) (Primary Dx); Elevated liver enzymes; Hepatomegaly; V-tach (HCC); COVID-19 long hauler; Gastroesophageal reflux disease without esophagitis Start: 12-10-2021 Refill Tata Rosas MD Work Phone: [facility] Comment on above: Refill Request Start: 12-10-2021 Telephone encounter Tata umanzor MD Work Phone: [facility] Comment on above: Received Outside Med ical Records ([facility]) Start: 12-02-2021 Refill Marjan fuller [employer] Work Phone: [facility] Comment on above: Refill Request Start: 12-02-2021 Telephone encounter Marjan rangel [employer] Work Phone: [facility] Comment on above: Radiology US (result s) Start: 12-02-2021 AUDIT Vargas cantu Work Phone: [facility] Internal Medicine Work Phone: Start: 12-01-2021 Telephone encounter Tata umanzor MD Work Phone: [facility] Comment on above: Appointment Start: 11-30-2021 Admission to [facility] Tomasz Garay MD Work Phone: Cardiology Comment on above: Surgery release Start: 11-30-2021 ambulatory Tomasz Garay MD Work Phone: [facility] Start: 11-29-2021 AUDIT Vargas cantu Work Phone: [facility] Internal Medicine Work Phone: Start: 11-29-2021 Telephone encounter Tata umanzor MD Work Phone: [facility] Comment on above: Patient Update (Outs austyn lab results) Start: 11-19-2021 End: 11-19-2021 Refill Tata Rosas MD Work Phone: [facility] Comment on above: Refill Request Class 3 severe obesi ty due to excess calories with serious comorbidity and body mass index (BMI) of 60.0 to 69.9 in adult (HCC) (Primary Dx); V-tach ([facility]); COVID-19 long hauler; Elevated liver enzymes; Vixld-8-mcsslripwaj deficiency ([facility]); Gastroesophageal reflux disease without esophagitis Medical Clearance Start: 11-15-2021 AUDIT Vargas cantu Work Phone: [facility] Internal Medicine Work Phone: Start: 11-12-2021 Chart Update Vargas cantu Work Phone: [facility] Internal Medicine Work Phone: Start: 11-11-2021 Office outpatient vi sit 25 minutes Vargas Mujica Work Phone: [facility] Internal Medicine Work Phone: Start: 11-11-2021 ambulatory Ms. Talya [facility] Facility:[id number] Start: 10-18-2021 AUDIT Vargas cantu Work Phone: [facility] Internal Medicine Work Phone: Start: 09-02-2021 AUDIT Vargas cantu Work Phone: [facility] Internal Medicine Work Phone: Start: 08-19-2021 Office outpatient vi sit 15 minutes Vargas Mujica Work Phone: [facility] Internal Medicine Work Phone: Start: 07-28-2021 FUV, Provider: Vargas Mujica, Status: Ryan, Time: 9:00 AM Vargas Mujica Work Phone: [facility] Internal Medicine Work Phone: Start: 07-28-2021 Office outpatient vi sit 25 minutes Vargas Mujica Work Phone: [facility] Internal Medicine Work Phone: Start: 07-27-2021 Chart Update Vargas cantu Work Phone: [facility] Internal Medicine Work Phone: Start: 07-02-2021 AUDIT Vargas cantu Work Phone: [facility] Internal Medicine Work Phone: Start: 06-08-2021 Chart Update Vargas cantu Work Phone: [facility] Internal Medicine Work Phone: Start: 06-03-2021 AUDIT Vargas cantu Work Phone: [facility] Medicine Work Phone: Start: 05-25-2021 Office outpatient vi sit 25 minutes Vargas Mujica Work Phone: [facility] Internal Medicine Work Phone: Start: 05-11-2021 AUDIT Vargas cantu Work Phone: [facility] Internal Medicine Work Phone: Start: 04-12-2021 AUDIT Vargas cantu Work Phone: [facility] Medicine Work Phone: Start: 12-19-2020 End: 12-19-2020 Subsequent hospital visit by physician Xr [facility] Work Phone: Radiology Comment on above: Class 3 severe obesi ty with body mass index (BMI) of 50.0 to 59.9 in adult, unspecified obesity type, unspecified whether serious comorbidity present (HCC) [E66.01, Z68.43] Start: 06-10-2020 Patient encounter procedure Vargas Mujica [facility] Medicine Work Phone: Start: 04-20-2020 Patient encounter procedure Vargas Mujica [facility] Medicine Work Phone: Start: 01-14-2020 Patient encounter procedure Vargas Mujica [facility] Internal Medicine Work Phone: Start: 12-23-2019 Patient encounter procedure Vargas Mujica [facility] Internal Medicine Work Phone: Start: 12-16-2019 Patient encounter procedure Vargas Mujica [facility] Internal Medicine Work Phone: Start: 10-03-2019 Patient encounter procedure Vargas Mujica [facility] Internal [facility] Work Phone: Start: 09-18-2018 End: 09-20-2018 Evaluation and management of inpatient [facility] Facility:[facility] Patient encounter status Vargas Mujica Work Phone: [facility] Internal Medicine Work Phone: Preoperative state Vargas cordova Work Phone: [facility] Internal Medicine Work Phone: Procedures Date Procedure Procedure Detail Performing Clinician Start: 06-03-2025 Microscopic observation [Identifier] in Cervix by Cyto stain Vargas HENRYC Work Phone: Start: 06-07-2024 Radex foot complete minimum 3 views Kamilla Coon [employer] Work Phone: Start: 04-24-2024 Radiologic exam chest 2 views Ami Delgado [employer] Work Phone: Start: 10-19-2023 CT of head without contrast Start: 09-25-2023 C-reactive protein VARGAS MUJICA Start: 09-25-2023 CBC W Auto Differential panel - Blood VARGAS MUJICA Start: 09-25-2023 Comprehensive metabolic 2000 panel - Serum or Plasma VARGAS MUJICA Start: 09-25-2023 Cyanocobalamin vitamin b-12 VARGAS CANTU Start: 09-25-2023 Ferritin [Mass/volume] in Serum or Plasma VARGAS MUJICA Start: 09-25-2023 Hemoglobin A1c/Hemoglobin.total in Blood VARGAS MUJICA Start: 09-25-2023 IRON AND TIBC VARGAS MUJICA Start: 09-25-2023 Lipid panel VARGAS MUJICA Start: 09-25-2023 Magnesium [Mass/volume] in Serum or Plasma VARGAS MUJICA Start: 09-25-2023 SEDIMENTATION RATE, AUTOMATED VARGAS SCHMITTL Start: 09-25-2023 THYROXINE, FREE VARGAS MUJICA Start: 09-25-2023 VITAMIN D 25-HYDROXY,TOTAL VARGAS CASTILLO Start: 09-25-2023 Lipid 1996 panel - Serum or Plasma Scott bee Guanako WATKINS-C Work Phone: Start: 09-25-2023 Thyrotropin [Units/volume] in Serum or Plasma Vargas Edenenhall PA-C Work Phone: Start: 02-09-2023 Urnls dip stick/tablet rgnt auto w/o microscopy Vargas B Guanako PA-C Work Phone: Start: 02-09-2023 Thyrotropin [Units/volume] in Serum or Plasma Vargas Edenenhall PA-C Work Phone: Start: 01-05-2023 Plain chest X-ray PA Vargas Mujica PA Work Phone: Start: 11-15-2022 Plain chest X-ray PA Vargas Morenoall PA Work Phone: Start: 11-08-2022 Radex foot complete minimum 3 views Donnie White PA Work Phone: Start: 09-22-2022 Radiologic exam chest 2 views Ami Delgado [employer] Work Phone: Start: 08-17-2022 Plain chest X-ray Start: 04-19-2022 Ct abdomen & pelvis w/contrast material Marjan Eddy [employer] Work Phone: Start: 02-02-2022 Us abdominal real time w/image documentation Brooks Soto MD Work Phone: Start: 02-02-2022 Brncdilat rspse spmtry pre&post-brncdilat admn Hung Emerson MD Work Phone: Start: 12-10-2021 Esophagogastrostomy, antesternal or antethoracic Vargas Mujica Work Phone: Start: 12-19-2020 Radiologic exam chest 2 views Marjan rangel APRN.CNP Work Phone: section Sydnierashawn Geronimo terrie Cholecystectomy Meagan Redd Esophagogastroduodenoscopy A tam Redd History of Biopsy Of Liver A mariah Laboratory test result abnormal Abnormal laboratory test result Operation on heart Vargas beasley Comment on above: 2018 heart ablation; Other bilateral liga tion and division of fallopian tubes Sydnierashawn Redd Tonsillectomy Meagan Redd Plan of Treatment Date Care Activity Detail Author Start: 2033 Zoster Vaccines (1 of 2) Zoster Vaccines (1 of 2) [facility] Start: 09-25-2028 Lipid panel Lipid Panel [facility] Start: 06-03-2028 Screening for malignant neoplasm of cervix [facility] Start: 09-25-2026 Diabetes mellitus screening Diabetes Screening [facility] Start: 06-02-2026 HPV TESTING HPV TESTING [facility] Start: 06-02-2026 PAP TESTING PAP TESTING [facility] Start: 06-02-2026 Screening for malignant neoplasm of cervix [facility] Start: 09-15-2025 End: 09-15-2025 Patient encounter procedure 09/15/2025 3:20 PM EST Office Visit Cardiology [address] [place] [address] Tomasz Garay MD [address], [address] [place], [place] [id number] bradycardia Cardiology Comment on above: bradycardia Start: 06-26-2025 End: 06-26-2025 Patient encounter procedure 06/26/2025 9:00 AM EDT Office Visit [facility] Internal Medicine [address] [place] [id number] Vargas Mujica, PAJoanaC [address] [place], [place] [id number] [facility] Internal Medicine Start: 06-10-2025 End: 06-10-2026 Dehydroepiandrosterone (DHEA) [Mass/volume] in Serum or Plasma DHEA level Lab Routine Anxiety Fatigue, unspecified type Expected: 06/10/2025 (Approximate), Expires: 06/10/2026 [facility] Work Phone: Comment on above: Expected: 06/10/2025 (Approximate), Expi res: 06/10/2026 Start: 06-10-2025 End: 06-10-2026 Estrogen [Mass/volume] in Serum or Plasma Estrogens, Total Lab Routine Anxiety Fatigue, unspecified type Expected: 06/10/2025 (Approximate), Expires: 06/10/2026 [facility] Service Area Work Phone: Comment on above: Expected: 06/10/2025 (Approximate), Expi res: 06/10/2026 Start: 06-10-2025 End: 06-10-2026 Follitropin [Units/volume] in Serum or Plasma FSH Lab Routine Anxiety Fatigue, unspecified type Expected: 06/10/2025 (Approximate), Expires: 06/10/2026 [facility] Work Phone: Comment on above: Expected: 06/10/2025 (Approximate), Expi res: 06/10/2026 Start: 06-10-2025 End: 06-10-2026 Lutropin [Units/volume] in Serum or Plasma Luteinizing hormone Lab Routine Anxiety Fatigue, unspecified type Expected: 06/10/2025 (Approximate), Expires: 06/10/2026 [facility] Work Phone: Comment on above: Expected: 06/10/2025 (Approximate), Expi res: 06/10/2026 Start: 06-10-2025 End: 06-10-2026 Progesterone [Mass/volume] in Serum or Plasma Progesterone Lab Routine Anxiety Fatigue, unspecified type Expected: 06/10/2025 (Approximate), Expires: 06/10/2026 [facility] Work Phone: Comment on above: Expected: 06/10/2025 (Approximate), Expi res: 06/10/2026 Start: 06-10-2025 End: 06-10-2026 Testosterone, total and free Testosterone, total and free Lab Routine Anxiety Fatigue, unspecified type Expected: 06/10/2025 (Approximate), Expires: 06/10/2026 [facility] Work Phone: Comment on above: Expected: 06/10/2025 (Approximate), Expi res: 06/10/2026 Start: 04-28-2025 COVID-19 Vaccine ( season) COVID-19 Vaccine () [facility] Start: 04-28-2025 Influenza vaccination [facility] Start: 01-28-2025 End: 01-28-2025 Patient encounter procedure 01/28/2025 2:30 PM EDT Office Visit [facility] [address] [place], [place] [phone] Johanny Marmolejo APRN.[employer] [address] [place] [place] [phone] sooner f/u than pritesh dunn per [facility] Comment on above: sooner f/u than pritesh dunn per [facility] Start: 01-08-2025 End: 07-11-2025 25-hydroxyvitamin D3 [Mass/volume] in Serum or Plasma Vitamin D 25-Hydroxy,Total (for eval of Vitamin D levels) Lab Routine Vitamin D deficiency Expected: 01/08/2025 (Approximate), Expires: 07/11/2025 [facility] Work Phone: Comment on above: Expected: 01/08/2025 (Approximate), Expi res: 07/11/2025 Start: 01-08-2025 End: 07-11-2025 CBC W Auto Differential panel - Blood CBC and Auto Differential Lab Routine Polyarthralgia Expected: 01/08/2025 (Approximate), Expires: 07/11/2025 [facility] Service Area Work Phone: Comment on above: Expected: 01/08/2025 (Approximate), Expi res: 07/11/2025 Start: 01-08-2025 End: 07-11-2025 Cobalamin (Vitamin B12) [Mass/volume] in Serum or Plasma Vitamin B12 Lab Routine Bariatric surgery status Expected: 01/08/2025 (Approximate), Expires: 07/11/2025 [facility] Work Phone: Comment on above: Expected: 01/08/2025 (Approximate), Expi res: 07/11/2025 Start: 01-08-2025 End: 07-11-2025 Comprehensive metabolic 2000 panel - Serum or Plasma Comprehensive Metabolic Panel Lab Routine Fatty liver disease, nonalcoholic Expected: 01/08/2025 (Approximate), Expires: 07/11/2025 [facility] Work Phone: Comment on above: Expected: 01/08/2025 (Approximate), Expi res: 07/11/2025 Start: 01-08-2025 End: 07-11-2025 Ferritin [Mass/volume] in Serum or Plasma Ferritin Lab Routine Fatty liver disease, nonalcoholic Expected: 01/08/2025 (Approximate), Expires: 07/11/2025 [facility] Work Phone: Comment on above: Expected: 01/08/2025 (Approximate), Expi res: 07/11/2025 Start: 01-08-2025 End: 07-11-2025 Iron and Iron binding capacity panel - Serum or Plasma Iron and TIBC Lab Routine Fatty liver disease, nonalcoholic Expected: 01/08/2025 (Approximate), Expires: 07/11/2025 [facility] Work Phone: Comment on above: Expected: 01/08/2025 (Approximate), Expi res: 07/11/2025 Start: 01-08-2025 End: 07-11-2025 Lipid 1996 panel - Serum or Plasma Lipid Panel Lab Routine 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 Class 3 severe obesity due to excess calories with serious comorbidity and body mass index (BMI) of 50.0 to 59.9 in adult Fatty liver disease, nonalcoholic Expected: 01/08/2025 (Approximate), Expires: 07/11/2025 [facility] Work Phone: Comment on above: Expected: 01/08/2025 (Approximate), Expi res: 07/11/2025 Start: 01-08-2025 End: 07-11-2025 Magnesium [Mass/volume] in Serum or Plasma Magnesium Lab Routine Polyarthralgia Expected: 01/08/2025 (Approximate), Expires: 07/11/2025 [facility] Work Phone: Comment on above: Expected: 01/08/2025 (Approximate), Expi res: 07/11/2025 Start: 01-08-2025 End: 07-11-2025 Opiate/Opioid/Benzo Prescription Compliance Opiate/Opioid/Benzo Prescription Compliance Lab Routine Anxiety Medication management Expected: 01/08/2025 (Approximate), Expires: 07/11/2025 [facility] Work Phone: Comment on above: Expected: 01/08/2025 (Approximate), Expi res: 07/11/2025 Start: 01-08-2025 End: 07-11-2025 Thyrotropin [Units/volume] in Serum or Plasma Thyroid Stimulating Hormone Lab Routine 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 Expected: 01/08/2025 (Approximate), Expires: 07/11/2025 [facility] Work Phone: Comment on above: Expected: 01/08/2025 (Approximate), Expi res: 07/11/2025 Start: 01-08-2025 End: 07-11-2025 Thyroxine (T4) free [Mass/volume] in Serum or Plasma Thyroxine, Free Lab Routine 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 Internal Medicine [address] [place] [phone] Vargas Mujica PA-C [address] [place] [address] [facility] Internal Medicine Start: 11-06-2024 End: 11-06-2025 25-hydroxyvitamin D3 [Mass/volume] in Serum or Plasma Vitamin D 25-Hydroxy,Total (for eval of Vitamin D levels) Lab Routine Vitamin D deficiency Expected: 11/06/2024 (Approximate), Expires: 11/06/2025 [facility] Work Phone: Comment on above: Expected: 11/06/2024 (Approximate), Expi res: 11/06/2025 Start: 11-06-2024 End: 11-06-2025 CBC W Auto Differential panel - Blood CBC and Auto Differential Lab Routine Glucose intolerance (impaired glucose tolerance) Expected: 11/06/2024 (Approximate), Expires: 11/06/2025 [facility] Service Area Work Phone: Comment on above: Expected: 11/06/2024 (Approximate), Expi res: 11/06/2025 Start: 11-06-2024 End: 11-06-2025 Cobalamin (Vitamin B12) [Mass/volume] in Serum or Plasma Vitamin B12 Lab Routine Bariatric surgery status Expected: 11/06/2024 (Approximate), Expires: 11/06/2025 [facility] Work Phone: Comment on above: Expected: 11/06/2024 (Approximate), Expi res: 11/06/2025 Start: 11-06-2024 End: 11-06-2025 Comprehensive metabolic 2000 panel - Serum or Plasma Comprehensive Metabolic Panel Lab Routine Glucose intolerance (impaired glucose tolerance) Expected: 11/06/2024 (Approximate), Expires: 11/06/2025 [facility] Work Phone: Comment on above: Expected: 11/06/2024 (Approximate), Expi res: 11/06/2025 Start: 11-06-2024 End: 11-06-2025 Ferritin [Mass/volume] in Serum or Plasma Ferritin Lab Routine Elevated ferritin level Expected: 11/06/2024 (Approximate), Expires: 11/06/2025 [facility] Work Phone: Comment on above: Expected: 11/06/2024 (Approximate), Expi res: 11/06/2025 Start: 11-06-2024 End: 11-06-2025 Iron and Iron binding capacity panel - Serum or Plasma Iron and TIBC Lab Routine Elevated ferritin level Expected: 11/06/2024 (Approximate), Expires: 11/06/2025 [facility] Work Phone: Comment on above: Expected: 11/06/2024 (Approximate), Expi res: 11/06/2025 Start: 11-06-2024 End: 11-06-2025 Lipid 1996 panel - Serum or Plasma Lipid Panel Lab Routine Glucose intolerance (impaired glucose tolerance) Shahzad's disease Expected: 11/06/2024 (Approximate), Expires: 11/06/2025 [facility] Work Phone: Comment on above: Expected: 11/06/2024 (Approximate), Expi res: 11/06/2025 Start: 11-06-2024 End: 11-06-2025 Magnesium [Mass/volume] in Serum or Plasma Magnesium Lab Routine Bariatric surgery status Expected: 11/06/2024 (Approximate), Expires: 11/06/2025 [facility] Work Phone: Comment on above: Expected: 11/06/2024 (Approximate), Expi res: 11/06/2025 Start: 11-06-2024 End: 11-06-2025 Opiate/Opioid/Benzo Prescription Compliance Opiate/Opioid/Benzo Prescription Compliance Lab Routine Medication management Expected: 11/06/2024 (Approximate), Expires: 11/06/2025 [facility] Work Phone: Comment on above: Expected: 11/06/2024 (Approximate), Expi res: 11/06/2025 Start: 11-06-2024 End: 11-06-2025 Thyrotropin [Units/volume] in Serum or Plasma Thyroid Stimulating Hormone Lab Routine Shahzad's disease Expected: 11/06/2024 (Approximate), Expires: 11/06/2025 [facility] Work Phone: Comment on above: Expected: 11/06/2024 (Approximate), Expi res: 11/06/2025 Start: 11-06-2024 End: 11-06-2025 Thyroxine (T4) free [Mass/volume] in Serum or Plasma Thyroxine, Free Lab Routine Shahzad's disease Expected: 11/06/2024 (Approximate), Expires: 11/06/2025 [facility] Work Phone: Comment on above: Expected: 11/06/2024 (Approximate), Expi res: 11/06/2025 Start: 09-25-2024 Thyroid stimulating hormone measurement TSH Level [facility] Start: 07-11-2024 End: 07-11-2025 FERNANDO + SHAHRIAR Panel [facility] Work Phone: Comment on above: Expected: 07/11/2024 (Approximate), Expi res: 07/11/2025 Start: 07-11-2024 End: 07-11-2025 Cyclic citrullinated peptide IgG Ab [Units/volume] in Serum or Plasma [facility] Work Phone: Comment on above: Expected: 07/11/2024 (Approximate), Expi res: 07/11/2025 Start: 07-11-2024 End: 07-11-2025 XR Cervical spine 2 or 3 Views [facility] Work Phone: Comment on above: Expected: 07/11/2024, Expires: Once for 1 Occurrenc es starting 07/11/2024 until 07/11/2024 Start: 07-11-2024 End: 07-11-2025 XR Lumbar spine 2 or 3 Views [facility] Work Phone: Comment on above: Expected: 07/11/2024, Expires: Once for 1 Occurrenc es starting 07/11/2024 until 07/11/2024 Start: 04-28-2024 Covid-19 Vaccine ( season) Covid-19 Vaccine ( season) [facility] Start: 04-28-2024 Covid-19 Vaccine ( season) Covid-19 Vaccine () [facility] Start: 04-28-2024 Influenza vaccination Influenza Vaccine (#1) [facility] Start: 04-24-2024 End: 05-08-2024 COVID & INFLUENZA A/B & RSV PCR, ROUTINE COVID & INFLUENZA A/B & RSV PCR, ROUTINE Microbiology Routine URI, acute Expected: 04/24/2024, Expires: 05/08/2024 [facility] Work Phone: Comment on above: Expected: 04/24/2024, Expires: Start: 02-28-2024 End: 02-27-2025 25-hydroxyvitamin D3 [Mass/volume] in Serum or Plasma Vitamin D 25-Hydroxy,Total (for eval of Vitamin D levels) Lab Routine Vitamin D deficiency Expected: 02/28/2024 (Approximate), Expires: 02/27/2025 [facility] Work Phone: Comment on above: Expected: 02/28/2024 (Approximate), Expi res: 02/27/2025 Start: 02-28-2024 End: 02-27-2025 C reactive protein [Mass/volume] in Serum or Plasma C-reactive protein Lab Routine Class 3 severe obesity due to excess calories with serious comorbidity and body mass index (BMI) of 50.0 to 59.9 in adult (Multi) Polyarthralgia Expected: 02/28/2024 (Approximate), Expires: 02/27/2025 [facility] Work Phone: Comment on above: Expected: 02/28/2024 (Approximate), Expi res: 02/27/2025 Start: 02-28-2024 End: 02-27-2025 CBC W Auto Differential panel - Blood CBC and Auto Differential Lab Routine Glucose intolerance (impaired glucose tolerance) Expected: 02/28/2024 (Approximate), Expires: 02/27/2025 [facility] Service Area Work Phone: Comment on above: Expected: 02/28/2024 (Approximate), Expi res: 02/27/2025 Start: 02-28-2024 End: 02-27-2025 Cobalamin (Vitamin B12) [Mass/volume] in Serum or Plasma Vitamin B12 Lab Routine Glucose intolerance (impaired glucose tolerance) Expected: 02/28/2024 (Approximate), Expires: 02/27/2025 [facility] Work Phone: Comment on above: Expected: 02/28/2024 (Approximate), Expi res: 02/27/2025 Start: 02-28-2024 End: 02-27-2025 Comprehensive metabolic 2000 panel - Serum or Plasma Comprehensive Metabolic Panel Lab Routine Glucose intolerance (impaired glucose tolerance) Expected: 02/28/2024 (Approximate), Expires: 02/27/2025 [facility] Work Phone: Comment on above: Expected: 02/28/2024 (Approximate), Expi res: 02/27/2025 Start: 02-28-2024 End: 02-27-2025 Cortisol [Mass/volume] in Saliva (oral fluid) Salivary Cortisol Lab Routine Class 3 severe obesity due to excess calories with serious comorbidity and body mass index (BMI) of 50.0 to 59.9 in adult (Multi) Polyarthralgia Expected: 02/28/2024 (Approximate), Expires: 02/27/2025 [facility] Work Phone: Comment on above: Expected: 02/28/2024 (Approximate), Expi res: 02/27/2025 Start: 02-28-2024 End: 02-27-2025 Cortisol Free [Mass/volume] in Serum or Plasma Cortisol, Free Lab Routine Class 3 severe obesity due to excess calories with serious comorbidity and body mass index (BMI) of 50.0 to 59.9 in adult (Multi) Polyarthralgia Expected: 02/28/2024 (Approximate), Expires: 02/27/2025 [facility] Work Phone: Comment on above: Expected: 02/28/2024 (Approximate), Expi res: 02/27/2025 Start: 02-28-2024 End: 04-30-2025 DBT Breast - bilateral BI mammo bilateral screening tomosynthesis Imaging Routine Generalized anxiety disorder Expected: 02/28/2024, Expires: 04/30/2025 [facility] Work Phone: Comment on above: Expected: 02/28/2024, Expires: Start: 02-28-2024 End: 02-27-2025 Erythrocyte sedimentation rate Sedimentation Rate Lab Routine Class 3 severe obesity due to excess calories with serious comorbidity and body mass index (BMI) of 50.0 to 59.9 in adult (Multi) Polyarthralgia Expected: 02/28/2024 (Approximate), Expires: 02/27/2025 [facility] Work Phone: Comment on above: Expected: 02/28/2024 (Approximate), Expi res: 02/27/2025 Start: 02-28-2024 End: 02-27-2025 Ferritin [Mass/volume] in Serum or Plasma Ferritin Lab Routine Fatty liver disease, nonalcoholic Elevated ferritin level Expected: 02/28/2024 (Approximate), Expires: 02/27/2025 [facility] Work Phone: Comment on above: Expected: 02/28/2024 (Approximate), Expi res: 02/27/2025 Start: 02-28-2024 End: 02-27-2025 Hemoglobin A1c/Hemoglobin.total in Blood Hemoglobin A1C Lab Routine Glucose intolerance (impaired glucose tolerance) Expected: 02/28/2024 (Approximate), Expires: 02/27/2025 [facility] Work Phone: Comment on above: Expected: 02/28/2024 (Approximate), Expi res: 02/27/2025 Start: 02-28-2024 End: 02-27-2025 Iron and Iron binding capacity panel - Serum or Plasma Iron and TIBC Lab Routine Fatty liver disease, nonalcoholic Elevated ferritin level Expected: 02/28/2024 (Approximate), Expires: 02/27/2025 [facility] Work Phone: Comment on above: Expected: 02/28/2024 (Approximate), Expi res: 02/27/2025 Start: 02-28-2024 End: 02-27-2025 Lipid 1996 panel - Serum or Plasma Lipid Panel Lab Routine Glucose intolerance (impaired glucose tolerance) Expected: 02/28/2024 (Approximate), Expires: 02/27/2025 [facility] Work Phone: Comment on above: Expected: 02/28/2024 (Approximate), Expi res: 02/27/2025 Start: 02-28-2024 End: 02-27-2025 Magnesium [Mass/volume] in Serum or Plasma Magnesium Lab Routine Glucose intolerance (impaired glucose tolerance) Expected: 02/28/2024 (Approximate), Expires: 02/27/2025 [facility] Work Phone: Comment on above: Expected: 02/28/2024 (Approximate), Expi res: 02/27/2025 Start: 02-28-2024 End: 02-27-2025 Thyrotropin [Units/volume] in Serum or Plasma Thyroid Stimulating Hormone Lab Routine 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 Expected: 02/28/2024 (Approximate), Expires: 02/27/2025 [facility] Work Phone: Comment on above: Expected: 02/28/2024 (Approximate), Expi res: 02/27/2025 Start: 02-28-2024 End: 02-27-2025 Thyroxine (T4) free [Mass/volume] in Serum or Plasma Thyroxine, Free Lab Routine 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 Expected: 02/28/2024 (Approximate), Expires: 02/27/2025 [facility] Work Phone: Comment on above: Expected: 02/28/2024 (Approximate), Expi res: 02/27/2025 Start: 02-10-2024 Thyroid stimulating hormone measurement TSH Level [facility] Start: 10-23-2023 End: 10-23-2023 Patient encounter procedure 10/23/2023 7:30 AM EST Appointment [facility] [address] [place] [id number] [facility] Start: 10-19-2023 [facility] Start: 10-03-2023 [facility] Start: 09-25-2023 End: 11-23-2024 DBT Breast - bilateral BI mammo bilateral screening tomosynthesis Imaging Routine Encounter for screening mammogram for breast cancer Expected: 09/25/2023, Expires: 11/23/2024 [facility] Work Phone: Comment on above: Expected: 09/25/2023, Expires: Start: 09-25-2023 End: 09-25-2024 Hemoglobin A1c/Hemoglobin.total in Blood [facility] Service Area Work Phone: Comment on above: Expected: 09/25/2023 (Approximate), Expi res: 09/25/2024 Start: 2023 Screening for malignant neoplasm of breast [facility] Start: 04-28-2023 Covid-19 Vaccine ( season) Covid-19 Vaccine () [facility] Start: 04-28-2023 Influenza vaccination [facility] Start: 02-09-2023 End: 02-10-2024 Cyclic citrullinated peptide IgG Ab [Units/volume] in Serum or Plasma [facility] Work Phone: Comment on above: Expected: 02/09/2023 (Approximate), Expi res: 02/10/2024 Start: 02-09-2023 End: 02-10-2024 DNA double strand Ab [Units/volume] in Serum [facility] Service Area Work Phone: Comment on above: Expected: 02/09/2023 (Approximate), Expi res: 02/10/2024 Start: 02-09-2023 End: 02-10-2024 Opiate/Opioid/Benzo Extended Prescription Compliance [facility] Work Phone: Comment on above: Expected: 02/09/2023 (Approximate), Expi res: 02/10/2024 Start: 02-09-2023 End: 02-10-2024 Rheumatoid factor [Units/volume] in Serum by Nephelometry [facility] Work Phone: Comment on above: Expected: 02/09/2023 (Approximate), Expi res: 02/10/2024 Start: 02-09-2023 End: 02-10-2024 Triiodothyronine (T3) Free [Mass/volume] in Serum or Plasma [facility] Work Phone: Comment on above: Expected: 02/09/2023 (Approximate), Expi res: 02/10/2024 Start: 01-05-2023 [facility] Start: 10-25-2022 ELISA, Provider: Vargas Mujica, Status: Pen, Time: 8:00 AM ELISA, Provider: Vargas Mujica, Status: Ryan, Time: 8:00 AM [facility] Work Phone: Start: 10-11-2022 End: 12-11-2022 [email or web address].intact [Mass/volume] in Serum or Plasma PTH INTACT BLD Lab Routine Increased PTH level Expected: 10/11/2022, Expires: 12/11/2022 [facility] Work Phone: Comment on above: Expected: 10/11/2022, Expires: 3 Start: 10-10-2022 End: 12-10-2022 25-hydroxyvitamin D3 [Mass/volume] in Serum or Plasma [facility] Work Phone: Comment on above: Expected: 10/10/2022, Expires: 3 Start: 10-10-2022 End: 12-10-2022 Basic metabolic 2000 panel - Serum or Plasma [facility] Work Phone: Comment on above: Expected: 10/10/2022, Expires: 3 Start: 10-10-2022 End: 12-10-2022 Cobalamin (Vitamin B12) [Mass/volume] in Serum or Plasma [facility] Work Phone: Comment on above: Expected: 10/10/2022, Expires: 3 Start: 10-10-2022 End: 12-10-2022 Ferritin [Mass/volume] in Serum or Plasma [facility] Work Phone: Comment on above: Expected: 10/10/2022, Expires: 3 Start: 10-10-2022 End: 12-10-2022 Folate [Mass/volume] in Serum or Plasma [facility] Work Phone: Comment on above: Expected: 10/10/2022, Expires: 3 Start: 10-10-2022 End: 12-10-2022 Iron and Iron binding capacity panel - Serum or Plasma [facility] Work Phone: Comment on above: Expected: 10/10/2022, Expires: 3 Start: 10-10-2022 End: 12-10-2022 [email or web address].intact [Mass/volume] in Serum or Plasma [facility] Work Phone: Comment on above: Expected: 10/10/2022, Expires: 3 Start: 10-10-2022 End: 12-10-2022 VITAMIN B1 (THIAMINE), WHOLE BLOOD [facility] Work Phone: Comment on above: Expected: 10/10/2022, Expires: 3 Start: 09-27-2022 VIRDEE, Provider: Josselyn Roblero, Status: Ryan, Time: 9:30 AM ELISA, Provider: Josselyn Roblero, Status: Ryan, Time: 9:30 AM [facility] Work Phone: Start: 08-17-2022 Troponin I measurement [facility] Work Phone: Start: 08-17-2022 [facility] Start: 07-27-2022 FUV, Provider: Vargas Mujica, Status: Pen, Time: 8:20 AM FUV, Provider: Vargas Mujica, Status: Ryan, Time: 8:20 AM [facility] Work Phone: Start: 07-12-2022 End: 09-11-2022 25-hydroxyvitamin D3 [Mass/volume] in Serum or Plasma VITAMIN D 25 HYDROXY Lab Routine S/P laparoscopic sleeve gastrectomy Expected: 07/12/2022, Expires: 09/11/2022 [facility] Work Phone: Comment on above: Expected: 07/12/2022, Expires: 3 Start: 07-12-2022 End: 09-11-2022 Basic metabolic 2000 panel - Serum or Plasma BASIC METABOLIC PNL Lab Routine S/P laparoscopic sleeve gastrectomy Expected: 07/12/2022, Expires: 09/11/2022 [facility] Work Phone: Comment on above: Expected: 07/12/2022, Expires: 3 Start: 07-12-2022 End: 09-11-2022 CBC panel - Blood by Automated count CBC Lab Routine S/P laparoscopic sleeve gastrectomy Expected: 07/12/2022, Expires: 09/11/2022 [facility] Work Phone: Comment on above: Expected: 07/12/2022, Expires: 3 Start: 07-12-2022 End: 09-11-2022 Cobalamin (Vitamin B12) [Mass/volume] in Serum or Plasma VITAMIN B12 BLOOD Lab Routine S/P laparoscopic sleeve gastrectomy Expected: 07/12/2022, Expires: 09/11/2022 [facility] Work Phone: Comment on above: Expected: 07/12/2022, Expires: 3 Start: 07-12-2022 End: 09-11-2022 Ferritin [Mass/volume] in Serum or Plasma FERRITIN BLD Lab Routine S/P laparoscopic sleeve gastrectomy Expected: 07/12/2022, Expires: 09/11/2022 [facility] Work Phone: Comment on above: Expected: 07/12/2022, Expires: 3 Start: 07-12-2022 End: 09-11-2022 Folate [Mass/volume] in Serum or Plasma FOLATE SERUM Lab Routine S/P laparoscopic sleeve gastrectomy Expected: 07/12/2022, Expires: 09/11/2022 [facility] Work Phone: Comment on above: Expected: 07/12/2022, Expires: 3 Start: 07-12-2022 End: 09-11-2022 Iron and Iron binding capacity panel - Serum or Plasma IRON + TIBC Lab Routine S/P laparoscopic sleeve gastrectomy Expected: 07/12/2022, Expires: 09/11/2022 [facility] Work Phone: Comment on above: Expected: 07/12/2022, Expires: 3 Start: 07-12-2022 End: 09-11-2022 [email or web address].intact [Mass/volume] in Serum or Plasma PTH INTACT BLD Lab Routine S/P laparoscopic sleeve gastrectomy Expected: 07/12/2022, Expires: 09/11/2022 [facility] Work Phone: Comment on above: Expected: 07/12/2022, Expires: 3 Start: 07-12-2022 End: 09-11-2022 VITAMIN B1 (THIAMINE), WHOLE BLOOD VITAMIN B1 (THIAMINE), WHOLE BLOOD Lab Routine S/P laparoscopic sleeve gastrectomy Expected: 07/12/2022, Expires: 09/11/2022 [facility] Work Phone: Comment on above: Expected: 07/12/2022, Expires: 3 Start: 2022 End: 09-03-2022 Hepatic function 2000 panel - Serum or Plasma HEPATIC FUNCTION PNL Lab Routine Hepatic fibrosis Expected: 2022, Expires: 09/03/2022 [facility] Work Phone: Comment on above: Expected: 2022, Expires: 3 Start: 04-28-2022 Influenza vaccination [facility] Start: 04-19-2022 End: 06-19-2022 25-hydroxyvitamin D3 [Mass/volume] in Serum or Plasma VITAMIN D 25 HYDROXY Lab Routine S/P laparoscopic sleeve gastrectomy Expected: 04/19/2022, Expires: 06/19/2022 [facility] Work Phone: Comment on above: Expected: 04/19/2022, Expires: 2 Start: 04-19-2022 End: 06-19-2022 Basic metabolic 2000 panel - Serum or Plasma BASIC METABOLIC PNL Lab Routine S/P laparoscopic sleeve gastrectomy Expected: 04/19/2022, Expires: 06/19/2022 [facility] Work Phone: Comment on above: Expected: 04/19/2022, Expires: 2 Start: 04-19-2022 End: 06-19-2022 CBC panel - Blood by Automated count CBC Lab Routine S/P laparoscopic sleeve gastrectomy Expected: 04/19/2022, Expires: 06/19/2022 [facility] Work Phone: Comment on above: Expected: 04/19/2022, Expires: 2 Start: 04-19-2022 End: 06-19-2022 Cobalamin (Vitamin B12) [Mass/volume] in Serum or Plasma VITAMIN B12 BLOOD Lab Routine S/P laparoscopic sleeve gastrectomy Expected: 04/19/2022, Expires: 06/19/2022 [facility] Work Phone: Comment on above: Expected: 04/19/2022, Expires: 2 Start: 04-19-2022 End: 06-19-2022 Ferritin [Mass/volume] in Serum or Plasma FERRITIN BLD Lab Routine S/P laparoscopic sleeve gastrectomy Expected: 04/19/2022, Expires: 06/19/2022 [facility] Work Phone: Comment on above: Expected: 04/19/2022, Expires: 2 Start: 04-19-2022 End: 06-19-2022 Folate [Mass/volume] in Serum or Plasma FOLATE SERUM Lab Routine S/P laparoscopic sleeve gastrectomy Expected: 04/19/2022, Expires: 06/19/2022 [facility] Work Phone: Comment on above: Expected: 04/19/2022, Expires: 2 Start: 04-19-2022 End: 06-19-2022 Iron and Iron binding capacity panel - Serum or Plasma IRON + TIBC Lab Routine S/P laparoscopic sleeve gastrectomy Expected: 04/19/2022, Expires: 06/19/2022 [facility] Work Phone: Comment on above: Expected: 04/19/2022, Expires: 2 Start: 04-19-2022 End: 06-19-2022 Parathyrin.intact [Mass/volume] in Serum or Plasma PTH INTACT BLD Lab Routine S/P laparoscopic sleeve gastrectomy Expected: 04/19/2022, Expires: 06/19/2022 [facility] Work Phone: Comment on above: Expected: 04/19/2022, Expires: 2 Start: 04-19-2022 End: 06-19-2022 VITAMIN B1 (THIAMINE), WHOLE BLOOD VITAMIN B1 (THIAMINE), WHOLE BLOOD Lab Routine S/P laparoscopic sleeve gastrectomy Expected: 04/19/2022, Expires: 06/19/2022 [facility] Work Phone: Comment on above: Expected: 04/19/2022, Expires: 2 Start: 04-05-2022 End: 06-05-2022 CBC panel - Blood by Automated count CBC Lab Routine Thrombocytopenia (HCC) Expected: 04/05/2022, Expires: 06/05/2022 [facility] Work Phone: Comment on above: Expected: 04/05/2022, Expires: 2 Start: 03-30-2022 FUV, Provider: Vargas Mujica, Status: Ryan, Time: 8:40 AM FUV, Provider: Vargas Mujica, Status: Ryan, Time: 8:40 AM [facility] Work Phone: Start: 03-01-2022 End: 03-01-2023 SARS-CoV-2 (COVID-19) RNA [Presence] in Respiratory specimen by ALISON with probe detection PRE-PROCEDURE & PRE-OPERATIVE COVID Microbiology Routine Morbid obesity (HCC) Expected: 03/01/2022, Expires: 03/01/2023 [facility] Work Phone: Comment on above: Expected: 03/01/2022, Expires: 3 Start: 02-08-2022 End: 04-10-2022 Hepatic function 2000 panel - Serum or Plasma HEPATIC FUNCTION PNL Lab Routine TORRES (nonalcoholic steatohepatitis) Increased liver enzymes Expected: 02/08/2022, Expires: 04/10/2022 [facility] Work Phone: Comment on above: Expected: 02/08/2022, Expires: 2 Start: 02-01-2022 FUV, Provider: Vargas Mujica, Status: Pen, Time: 9:20 AM FUV, Provider: Vargas Mujica, Status: Pen, Time: 9:20 AM [facility] Work Phone: Start: 01-13-2022 End: 01-13-2023 FERNANDO BY IFA SCREEN [facility] Work Phone: Comment on above: Expected: 01/13/2022, Expires: 3 Start: 01-13-2022 End: 03-15-2022 LIVER FIBROSIS AND ACTIVITY [facility] Work Phone: Comment on above: Expected: 01/13/2022, Expires: 2 Start: 01-03-2022 End: 03-05-2022 ALPHA 1 ANTITRYP PHEN/GENOTYPE ALPHA 1 ANTITRYP PHEN/GENOTYPE Lab Routine Dyspnea and respiratory abnormalities Expected: 01/03/2022, Expires: 03/05/2022 [facility] Work Phone: Comment on above: Expected: 01/03/2022, Expires: 2 Start: 01-03-2022 End: 03-05-2022 ALPHA 1 ANTITRYPSIN PHENOTYPE ALPHA 1 ANTITRYPSIN PHENOTYPE Lab Routine Dyspnea and respiratory abnormalities Expected: 01/03/2022, Expires: 03/05/2022 [facility] Work Phone: Comment on above: Expected: 01/03/2022, Expires: 2 Start: 11-19-2021 End: 01-19-2022 CBC panel - Blood by Automated count CBC Lab Routine Class 3 severe obesity due to excess calories with serious comorbidity and body mass index (BMI) of 60.0 to 69.9 in adult ([facility]) Expected: 11/19/2021, Expires: 01/19/2022 [facility] Work Phone: Comment on above: Expected: 11/19/2021, Expires: 2 Start: 11-19-2021 End: 01-19-2022 Comprehensive metabolic 2000 panel - Serum or Plasma COMP METABOLIC PANEL Lab Routine Class 3 severe obesity due to excess calories with serious comorbidity and body mass index (BMI) of 60.0 to 69.9 in adult ([facility]) Expected: 11/19/2021, Expires: 01/19/2022 [facility] Work Phone: Comment on above: Expected: 11/19/2021, Expires: 2 Start: 11-19-2021 End: 01-19-2022 FERRITIN BLD FERRITIN BLD Lab Routine Class 3 severe obesity due to excess calories with serious comorbidity and body mass index (BMI) of 60.0 to 69.9 in adult ([facility]) Expected: 11/19/2021, Expires: 01/19/2022 [facility] Work Phone: Comment on above: Expected: 11/19/2021, Expires: 2 Start: 11-19-2021 End: 01-19-2022 Folate [Mass/volume] in Serum or Plasma FOLATE SERUM Lab Routine Class 3 severe obesity due to excess calories with serious comorbidity and body mass index (BMI) of 60.0 to 69.9 in adult ([facility]) Expected: 11/19/2021, Expires: 01/19/2022 [facility] Work Phone: Comment on above: Expected: 11/19/2021, Expires: 2 Start: 11-19-2021 End: 01-19-2022 IRON + TIBC IRON + TIBC Lab Routine Class 3 severe obesity due to excess calories with serious comorbidity and body mass index (BMI) of 60.0 to 69.9 in adult ([facility]) Expected: 11/19/2021, Expires: 01/19/2022 [facility] Work Phone: Comment on above: Expected: 11/19/2021, Expires: 2 Start: 11-19-2021 End: 01-19-2022 PTH INTACT BLD PTH INTACT BLD Lab Routine Class 3 severe obesity due to excess calories with serious comorbidity and body mass index (BMI) of 60.0 to 69.9 in adult ([facility]) Expected: 11/19/2021, Expires: 01/19/2022 [facility] Work Phone: Comment on above: Expected: 11/19/2021, Expires: 2 Start: 11-19-2021 End: 01-19-2022 VITAMIN B1 (THIAMINE), WHOLE BLOOD VITAMIN B1 (THIAMINE), WHOLE BLOOD Lab Routine Class 3 severe obesity due to excess calories with serious comorbidity and body mass index (BMI) of 60.0 to 69.9 in adult ([facility]) Expected: 11/19/2021, Expires: 01/19/2022 [facility] Work Phone: Comment on above: Expected: 11/19/2021, Expires: 2 Start: 11-19-2021 End: 01-19-2022 VITAMIN B12 BLOOD VITAMIN B12 BLOOD Lab Routine Class 3 severe obesity due to excess calories with serious comorbidity and body mass index (BMI) of 60.0 to 69.9 in adult ([facility]) Expected: 11/19/2021, Expires: 01/19/2022 [facility] Work Phone: Comment on above: Expected: 11/19/2021, Expires: 2 Start: 11-19-2021 End: 01-19-2022 VITAMIN D 25 HYDROXY VITAMIN D 25 HYDROXY Lab Routine Class 3 severe obesity due to excess calories with serious comorbidity and body mass index (BMI) of 60.0 to 69.9 in adult (HCC) Expected: 11/19/2021, Expires: 01/19/2022 [facility] Work Phone: Comment on above: Expected: 11/19/2021, Expires: Start: 10-28-2021 FUV, Provider: Josselyn Roblero, Status: Pen, Time: 8:30 AM FUV, Provider: Josselyn Roblero, Status: Pen, Time: 8:30 AM [facility] Work Phone: Start: 05-25-2021 FUV, Provider: Vargas Mujica, Status: Pen, Time: 3:40 PM FUV, Provider: Vargas Mujica, Status: Pen, Time: 3:40 PM [facility] Work Phone: Start: 04-28-2021 Influenza vaccination INFLUENZA (#1) [facility] Start: 02-16-2020 ANNUAL PCP TEAM CHRONIC DISEASE VISIT ANNUAL PCP TEAM CHRONIC DISEASE VISIT [facility] Start: 10-23-2017 Hepatitis A Vaccines (2 of 3 - Hep A Twinrix risk 3-dose series) Hepatitis A Vaccines (2 of 3 - Hep A Twinrix risk 3-dose series) [facility] Start: 10-23-2017 HEPATITIS B (2 of 3 - Hep B Twinrix 3-dose series) HEPATITIS B (2 of 3 - Hep B Twinrix 3-dose series) [facility] Start: 10-23-2017 Hepatitis B Vaccine (2 of 3 - Hep B Twinrix 3-dose series) Hepatitis B Vaccine (2 of 3 - Hep B Twinrix 3-dose series) [facility] Start: 10-23-2017 Hepatitis B Vaccines (2 of 3 - Hep B Twinrix 3-dose series) Hepatitis B Vaccines (2 of 3 - Hep B Twinrix 3-dose series) [facility] Start: 2010 HPV Vaccines (1 - 3-dose standard series) HPV Vaccines (1 - 3-dose standard series) [facility] Start: 2005 DTaP/Tdap/Td Vaccines (1 - Tdap) DTaP/Tdap/Td Vaccines (1 - Tdap) [facility] Start: 2004 Screening for malignant neoplasm of cervix [facility] Start: 2002 Urine microalbumin profile [facility] Start: 2001 Annual PCP Team Chronic Disease Visit Annual PCP Team Chronic Disease Visit [facility] Start: 2001 Anxiety Screening Anxiety Screening [facility] Start: 2001 HIV SCREENING HIV SCREENING [facility] Start: 2001 HIV screening HIV Screening [facility] Start: 1996 Varicella vaccination Varicella Vaccines (1 of 2 - 13+ 2-dose series) [facility] Start: 1988 COVID-19 VACCINE (#1) COVID-19 VACCINE (#1) [facility] Start: 1988 COVID-19 VACCINE (1) COVID-19 VACCINE (1) [facility] Start: 1984 MMR Vaccines (1 of 1 - Standard series) MMR Vaccines (1 of 1 - Standard series) [facility] Start: 1984 Varicella vaccination Varicella Vaccines (1 of 2 - 2-dose childhood series) [facility] Start: 01-02-1984 COVID-19 VACCINE (#1) COVID-19 VACCINE (#1) [facility] Start: 1983 HIV screening HIV Screening [facility] Start: 1983 Lipid panel [facility]id Panel [facility] [facility]: 1985 Yearly Adult Physical Yearly Adult Physical [facility] Confirmation Opiate/Opioid/Benzo Prescription Compliance Confirmation Opiate/Opioid/Benzo Prescription Compliance Lab Routine Anxiety Medication management 02/28/2024 2:51 PM EDT [facility] Work Phone: End: 05-19-2023 Ct abdomen & pelvis w/contrast material CT ABD/PEL W IVCON Radiology STAT S/P laparoscopic sleeve gastrectomy Right sided abdominal pain 1 Occurrences starting 04/19/2022 until 05/19/2023 [facility] Work Phone: Comment on above: 1 Occurrences starting 04/19/2022 until 05/19/2023 End: 02-27-2026 CT Heart and Coronary arteries for calcium scoring WO contrast CT CALCIUM SCORING SELF PAY Radiology Routine Sinus bradycardia Encounter for screening for cardiovascular disorders 1 Occurrences starting 01/28/2025 until 02/27/2026 [facility] Comment on above: 1 Occurrences starting 01/28/2025 until 02/27/2026 End: 02-02-2023 Ct thorax w/o contrast material CT CHEST WO IVCON Radiology Routine Shortness of breath 1 Occurrences starting 01/03/2022 until 02/02/2023 [facility] Work Phone: Comment on above: 1 Occurrences starting 01/03/2022 until 02/02/2023 End: 02-02-2023 LUNG DIFFUSION CAPACITY (DLCO) LUNG DIFFUSION CAPACITY (DLCO) PFT Routine Dyspnea and respiratory abnormalities 1 Occurrences starting 01/03/2022 until 02/02/2023 [facility] Work Phone: Comment on above: 1 Occurrences starting 01/03/2022 until 02/02/2023 LUNG DIFFUSION CAPACITY (DLCO) L BAILEE DIFFUSION CAPACITY (DLCO) PFT Routine Dyspnea and respiratory abnormalities 02/02/2022 6:03 AM EDT [facility] Work Phone: End: 02-02-2023 LUNG VOLUMES LUNG VOLUMES PFT Routine Dyspnea and respiratory abnormalities 1 Occurrences starting 01/03/2022 until 02/02/2023 [facility] Work Phone: Comment on above: 1 Occurrences starting 01/03/2022 until 02/02/2023 LUNG VOLUMES LUNG VOLUMES PFT Routine Dyspnea and respiratory abnormalities 02/02/2022 6:03 AM EDT [facility] Work Phone: OOB Internal Tracking OOB Physical Therapy Teacher al Tracking Lab Routine Anxiety Medication management 02/28/2024 2:51 PM EDT [facility] Work Phone: OPIATE/OPIOID/BENZO PRESCRIPTION COMPLIANCE OPIATE/OPIOID/BENZO PRESCRIPTION COMPLIANCE Lab Routine Anxiety Medication management 02/09/2023 4:22 PM EDT [facility] Work Phone: Opiate/Opioid/Benzo Prescription Compliance Opiate/Opioid/Benzo Prescription Compliance Lab Routine Anxiety Medication management 02/28/2024 2:51 PM EDT [facility] Work Phone: OUTSIDE VENDOR CARDI AC OUTPATIENT EXTENDED RHYTHM RECORDING (WITHOUT TELEMETRY) OUTSIDE VENDOR CARDIAC OUTPATIENT EXTENDED RHYTHM RECORDING (WITHOUT TELEMETRY) Holter Routine Dizzy Ordered: 01/09/2023 [facility] Work Phone: Comment on above: Ordered: 01/09/2023 OUTSIDE VENDOR CARDI AC OUTPATIENT EXTENDED RHYTHM RECORDING (WITHOUT TELEMETRY) OUTSIDE VENDOR CARDIAC OUTPATIENT EXTENDED RHYTHM RECORDING (WITHOUT TELEMETRY) Holter Routine Sinus bradycardia Encounter for screening for cardiovascular disorders Ordered: 01/28/2025 [facility] Work Phone: Comment on above: Ordered: 01/28/2025 Patient Education [facility] Work Phone: Patient referral [facility] Work Phone: Screen Opiate/Opioid /Benzo Prescription Compliance Screen Opiate/Opioid/Benzo Prescription Compliance Lab Routine Anxiety Medication management 02/28/2024 2:52 PM EDT [facility] Work Phone: End: 02-02-2023 SPIROMETRY - BASELINE AND POST DILATOR SPIROMETRY - BASELINE AND POST DILATOR PFT Routine Dyspnea and respiratory abnormalities 1 Occurrences starting 01/03/2022 until 02/02/2023 [facility] Work Phone: Comment on above: 1 Occurrences starting 01/03/2022 until 02/02/2023 SPIROMETRY - BASELIN E AND POST DILATOR SPIROMETRY - BASELINE AND POST DILATOR PFT Routine Dyspnea and respiratory abnormalities 02/02/2022 6:03 AM EDT [facility] Work Phone: Troponin I measurement [facility] Work Phone: End: 02-12-2023 Us abdominal real time w/image documentation US ABDOMEN COMPLETE Radiology Routine Fatty liver Increased liver enzymes 1 Occurrences starting 01/13/2022 until 02/12/2023 [facility] Work Phone: Comment on above: 1 Occurrences starting 01/13/2022 until 02/12/2023 Us abdominal real ti me w/image documentation US ABDOMEN COMPLETE Radiology Routine Fatty liver Increased liver enzymes 02/02/2022 7:43 AM EDT [facility] Work Phone: [facility] Immunizations Immunization Date Immunization Notes Care Provider Fa cili 09-18-2018 influenza, injectabl e, quadrivalent, preservative free [facility] 09-18-2018 influenza, seasonal, injectable Marjan Gromovsky [employer].[facility] Work Phone: [facility] Work Phone: 09-18-2018 influenza, seasonal, injectable, preservative free Vargas Mujica Work Phone: [facility] 09-18-2018 influenza virus vaccine, unspecified formulation Vargas Mujica PA-C Work Phone: [facility] Work Phone: 09-25-2017 hepatitis A and hepatitis B vaccine Vargas Mujica Work Phone: [facility] 09-25-2017 hepatitis B vaccine, unspecified formulation Marjan Gromovsky [employer] Work Phone: [facility] 06-13-2017 influenza, injectabl e, quadrivalent, preservative free [facility] 06-13-2017 influenza, seasonal, injectable Marjan Gromovsky [employer] Work Phone: [facility] Work Phone: 06-13-2017 influenza, seasonal, injectable, preservative free Marjan Gromovsky [employer] Work Phone: [facility] Payers Date Payer Category Payer Unknown [id number] 2024 Self-pay [id number] 2022 Managed Care (Private) [id number] 2022 Unknown 2021 Private Health Insurance DELIA CONTI [id number] 2021-Present [phone] [facility] [id number] [place] [address] Open Access [id number] 2021 Private Health Insurance [id number] 2019 Private Health Insurance [id number] 2017 Unknown [id number] 1983 Unknown [id number] 2.16840.1.148359.3.579.2.2 78 1983 Unknown [id number] 2.16840.1.273512.3.579.2.3 56 1983 Unknown [id number] 2.840.1.387014.3.579.2.3 56 1983 Unknown [id number] 2.840.1.622967.3.579.2.3 56 1983 Unknown [id number] 2.16840.1.262548.3.579.2.3 56 1983 Unknown [id number] 2.16840.1.861862.3.579.2.3 56 1983 Unknown [id number] 2.16840.1.091129.3.579.2.3 56 1983 Unknown [id number] 2.16840.1.155207.3.579.2.3 56 1983 Unknown [id number] 2.16840.1.754944.3.579.2.1 069 1983 Unknown [id number] 2.16840.1.348647.3.579.2.1 243 1983 Unknown [id number] 2.16840.1.421857.3.579.2.1 243 1983 Unknown [id number] 2.840.1.274725.3.579.2.1 245 1983 Unknown [id number] 2.840.1.088046.3.579.2.1 245 1983 Unknown [id number] 2.840.1.093245.3.579.2.1 244 1983 Unknown [id number] 2.840.1.352347.3.579.2.1 244 1983 Unknown [id number] .840.1.793511.3.579.2.1 244 Private Health Insurance [facility] [id number] Unknown [id number] 840.1.666096.3.579.2.4 62 Unknown [id number] 840.1.284852.3.579.2.4 62 Unknown [id number] 840.1.295205.3.579.2.4 62 Unknown [id number] 840.1.483665.3.579.2.4 62 Unknown [id number] 840.1.505883.3.579.2.4 62 Unknown [id number] 2840.1.898516.3.579.2.4 62 Unknown [id number] 2840.1.421625.3.579.2.4 62 Unknown [id number] 2840.1.247932.3.579.2.4 62 Unknown [id number] 2.16.840.1.285145.3.579.2.4 62 Unknown [id number] 2.16.840.1.658413.3.579.2.4 62 Unknown [id number] 2.16.840.1.599902.3.579.2.4 62 Unknown [id number] 2.16.840.1.838330.3.579.2.4 62 Unknown [id number] 2.16.840.1.166530.3.579.2.4 62 Unknown [id number] 2.16.840.1.831184.3.579.2.4 62 Unknown [id number] 2.16.840.1.466584.3.579.2.4 62 Unknown [id number] 2.16.840.1.793136.3.579.2.4 62 Unknown [id number] 2.16.840.1.929503.3.579.2.4 62 Unknown [id number] 2.16.840.1.707059.3.579.2.4 62 Unknown [id number] 2.16.840.1.515078.3.579.2.4 62 Social History Date Type Detail Facility Start: 06-26-2019 End: 06-10-2025 Former smoker Former smoker [facility] Work Phone: Start: 06-26-2019 End: 02-08-2023 Tobacco smoking status NHIS Ex-smoker [facility] Start: 08-28-2009 End: 08-28-2019 History of tobacco use Current smoker [facility] Start: 08-28-2009 End: 08-28-2019 History of tobacco use Cigarette Smoker [facility] Start: 06-26-2019 End: 02-08-2023 Tobacco use and exposure Smokeless tobacco non-user [facility] Start: 11-19-2021 End: 06-10-2025 Alcohol intake Ex-drinker (finding) [facility] Start: 03-15-2019 End: 04-06-2022 Tobacco Comment total quit 2017. currently 5 cigarettes/month [facility] Start: 1985 Sex Assigned At Female C [facility] Start: 11-19-2020 End: 11-06-2024 Exposure to SARS-CoV-2 (event) Not sure [facility] Start: 03-25-2022 End: 04-11-2022 Exposure to SARS-CoV-2 (event) Yes [facility] Start: 08-17-2022 End: 10-19-2023 Tobacco smoking status NHIS Unknown if ever smoked [facility] Start: 06-07-2020 None [facility] Start: 06-07-2020 With Family [facility] Start: 06-23-2020 Non-smoker [facility] Start: 02-09-2023 Alcohol intake Current drinke r of alcohol (finding) [facility] Work Phone: Start: 02-09-2023 End: 06-10-2025 Tobacco use panel [facility] Work Phone: Start: 02-08-2023 Alcohol Comment OCCASIONALLY [facility] Work Phone: Start: 1985 Sex Assigned At Not on file [facility] Work Phone: Tobacco smoking status No Smoking Status Entered [facility] Start: 07-23-2022 PHQ2 Score 0 [facility] Work Phone: Start: 06-07-2021 Gender identity Identifies as female gender (finding) [facility] Start: 06-07-2021 Sexual orientation Heterosexual (huan light) [facility] NEGATED: Highlighted row - - [facility] Work Phone: NEGATED: Highlighted row [facility] Goals Date Patient Goal Desired Activity /State Personal health goal Personal health goal Personal health goal Personal health goal Functional Status Date Assessment Result Facility 06-10-2025 Patient Health Questionnaire 2 item (PHQ-2) [Reported] [facility] Work Phone: 06-10-2025 Functional status [facility] Work Phone: 06-10-2025 [facility] Work Phone: 05-15-2023 Functional Status Independent [place] Alfredo viveros [facility] 05-15-2023 Functional Status ID band on, Allergy Band on, Call device within reach, Bed in low position, Wheels locked, Upper/Half-Length side-rails up, Visitor at bedside [facility] 09-26-2018 Are you deaf, or do you have serious difficulty hearing No 09/26/2018 2:05 PM Mabel Bates (Rn) (Hist), RN No [facility] 09-26-2018 Are you blind, or do you have serious difficulty seeing, even when wearing glasses No 09/26/2018 2:05 PM Mabel Bates (Rn) (Hist), RN No [facility] 09-26-2018 Do you have serious difficulty walking or climbing stairs No 09/26/2018 2:05 PM Mabel Bates (Rn) (Hist), RN No [facility] 09-26-2018 Do you have difficul ty dressing or bathing No 09/26/2018 2:05 PM Mabel Bates (Rn) (Hist), RN No [facility] 09-26-2018 Because of a physica l, mental, or emotional condition, do you have difficulty doing errands alone such as visiting a physician's office or shopping No 09/26/2018 2:05 PM Mabel BatesRn) (Hist), RN No [facility] NEGATED: Highlighted row Functional performance Functional status health issues are not documented Disease [facility] Work Phone: Mental Status Date Assessment Result Facility 10-19-2023 Cognitive function Level Of Cons ciousness Awake;Alert;Appropriate ;Follows Commands [facility] Work Phone: 10-03-2023 Cognitive function Level Of Cons ciousness Awake;Alert;Appropriate ;Follows Commands [facility] Work Phone: 05-15-2023 Mental Status Orientation Orie nted x 4 [facility] 05-15-2023 Mental Status [facility] 01-05-2023 Cognitive function Awake;Alert;Appropriat e [facility] Work Phone: 11-15-2022 Cognitive function Voice/Name [facility] Work Phone: 08-17-2022 Cognitive function Voice/Name [facility] Work Phone: 09-26-2018 Because of a physical, mental, or emotional condition, do you have serious difficulty concentrating, remembering, or making decisions No 09/26/2018 2:05 PM Mabel Bates (Rn) (Hist), RN No [facility] NEGATED: Highlighted row Cognitive function [Interpretation] Cognitive status health issues are not documented Disease [facility] Work Phone: Clinical Notes [...] Verbal consent was requested and obtained from Curly Cowart on this date, 06/10/25 for a telehealth visit and the patient's location was confirmed at the time of the visit. 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 documented in this encounter [facility] Work Phone: 06-03-2025 Note HNO ID: [id number] Author: DEE DEE LOUISE APRN.[employer] Service: ? Author Type: Nurse Practitioner Type: Progress Notes Filed: 06/03/2025 09:58 Note Text: patient declined quality assistant Curly is a 39 year old who presents [...] of abnormal pap: No Last mammogram: 2024 [facility] normal Abnormal mammogram: 024 - [...] Living1 SAB0 IAB0 Ectopic0 Multiple0 Live Births1 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 History LMP: 07/11/2016, Ablation Age at Menarche: Age at First : Age at Menopause: 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 History Comments: Sexual Activity: Yes; Male; ablation Contraception: Other, Tubal Ligation PAST MEDICAL HISTORY Diagnosis Date Nboqi-0-zuwnelkgivm deficiency (HCC) Cardiac dysrhythmia, unspecified 2007 Depressive [...] SLEEVE GASTRECTOMY 04/11/2022 LAPAROSCOPIC UTERINE NERVE ABLATION 2012 LIVER BIOPSY 2008 MIDLINE CATHETER 09/21/2018 PAST SURGICAL HISTORY OF 2009 spring coils in fallopian tubes S BALLOON,UTERINE ABLATION [id number] 2009 [facility] CARDIAC RADIOFREQUENCY ABLATION 2018 ventricular [...] date: 2009 Quit date: 2020 Years since quittin.7 Smokeless tobacco: Never Tobacco [...] discussed with the Patient or Patient's Authorized Bioinformatics Research Technician. As applicable, any other physician, advance practice provider, medical student, or other health professional student that will be observing or involved in the sensitive examination for educational or training purposes was discussed with the Patient or Authorized Bioinformatics Research Technician. The Patient or Authorized Bioinformatics Research Technician has agreed to proceed with the s (more content not included)... [facility] 02-10-2025 Telephone encounter Note Curly Cowart returned call. Relayed holter results and she voiced understanding. Lexis Owen RN [facility] 02-10-2025 Miscellaneous Notes Curly Jules Sofya returned call. Relayed holter results and she voiced understanding. Lexis Owen RN LVM and sent my chart message with results. Lexis Owen RN ----- Message from Johanny Marmolejo APRN.CNP sent [...] was Sinus Rhythm. documented in this encounter [facility] 02-10-2025 Telephone encounter Note LVM and sent my chart message with results. Lexis Owen RN [facility] 02-10-2025 Telephone encounter Note ----- Message [...] bpm. Predominant underlying rhythm was Sinus Rhythm. [facility] 02-10-2025 Progress note Formatting of t [...] bpm. Predominant underlying rhythm was Sinus Rhythm. [facility] Work Phone: 01-29-2025 Telephone encounter Note Order faxed. Confirmation received. Boris Roberts RN [facility] 01-29-2025 Miscellaneous Notes Order faxed. Confirmation received. Boris Roberts RN [facility] asking for an order for Calcium Scoring to be faxed to [phone]. Johanny Meredith LPN documented in this encounter [facility] 01-29-2025 Telephone encounter Note [facility] asking for an order for Calcium Scoring to be faxed to [phone]. Johanny Meredith LPN [facility] 01-28-2025 Instructions Johanny aMrmolejo APRN.[facility] - 01/28/2025 2:54 PM EDT Heart Disease in Women Is heart disease a problem for women? Heart disease is the leading cause of of [place] women. More women from heart disease than [...] disease. You can get more information from: [place] [employer] Qsllfqsqgnh2-285-CVY-USA-1 ( )www.heart.org Developed by [employer]. Published by [employer]. Copyright 2014 [employer] and/or one of its subsidiaries. All rights reserved. documented in this encounter [facility] 01-28-2025 History of Present illness Narrative Chief Complaint Patient presents with: Cardiology Follow Up - Generic: sooner f/u than [facility] - bradycardia History of Present Illness: Curly Cowart is a very pleasant 39 year old female who presents for symptom concerns. 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 She is known to Dr. Garay, last seen in our [place] office location 01/09/2023. The patient is a [...] is currently working with a dietitian through [employer] to improve her health and manage her [...] up Dr. Garay's first available appointment in [place] on 09/15/2025. PAST MEDICAL HISTORY Diagnosis Date Ajyof-5-iwrnzgwbqpn deficiency (HCC) Cardiac dysrhythmia, unspecified 2007 Depressive disorder, not elsewhere classified DVT (deep venous thrombosis) ([facility]) after PICC line Esophageal reflux Shahzad thyroiditis [...] coils in fallopian tubes S BALLOON,UTERINE ABLATION [id number] 2009 SHX CARDIAC RADIOFREQUENCY ABLATION 2018 ventricular [...] the 40s-50s since the VT ablation in 2019. No recurrence of VT. Patient experiences fatigue [...] coronary artery disease; patient to schedule at [facility]. - Consider follow-up with functional medicine or [...] 2025, 12:51 PM documented in this encounter [facility] 01-28-2025 Note HNO ID: [id number] Author: JOHANNY MARMOLEJO APRN.CNP Service: ? Author Type: Nurse Practitioner Type: Progress Notes Filed: 01/30/2025 11:11 Note Text: Chief Complaint Patient presents with: Cardiology Follow Up - Generic: sooner f/u than [facility] - bradycardia History of Present Illness: Curly Cowart is a very pleasant 39 year old female who presents for symptom concerns. She has a past medical history of wide-complex tachycardia (s/p ablation 2018 at [facility]), gastric bypass surgery. She is known to Dr. Garay, last seen in our [place] office location 01/09/2023. The patient is a [...] is currently working with a dietitian through [employer] to improve her health and manage her [...] up Dr. Garay's first available appointment in [place] on 09/15/2025. PAST MEDICAL HISTORY Diagnosis Date Alkhe-5-dmqpcvcslhk deficiency (HCC) Cardiac dysrhythmia, unspecified 2007 Depressive [...] coils in fallopian tubes S BALLOON,UTERINE ABLATION 85936 2009 SHX CARDIAC RADIOFREQUENCY ABLATION 2018 ventricular [...] date: 2009 Quit date: 2020 Years since qu (more content not included)... [facility] 01-28-2025 Note HNO ID: [id number] Author: EDITH MURRAY MD Service: ? Author [...] comment: Reviewed and agree with technical findings. Ediht Murray MD February 11, 2025 9:32 AM [facility] 01-13-2025 Telephone encounter Note Pt called back in. Pt scheduled 01/28/2025 with Caridad Junior [facility] 01-13-2025 Miscellaneous Notes Pt called back in. Pt scheduled 01/28/2025 with Caridad Junior Called pt and left voicemail stating we could get her in sooner if she is willing to come to [place]. Waiting to hear back from pt if [...] sooner if possible. documented in this encounter [facility] 01-13-2025 Telephone encounter Note Called pt and left voicemail stating we could get her in sooner if she is willing to come to [place]. Waiting to hear back from pt if she would like to reschedule. Sada Membreno [facility] 01-09-2025 Telephone encounter Note Patient calling [...] requesting to be seen sooner if possible. [facility] 11-06-2024 History of Present illness Narrative Subjective Patient ID: Curly Cowart is a 39 y.o. female who presents for Follow-up (C/O LIVER PAIN AND DISCUSS SOMETHING FOR WEIGHT LOSS. C/O TENDONITIS ON/OFF LT FOOT IBUPROFEN IS NOT HELPING ) HPI Labs- done in [place] February 2024 and also Aug/Sep 2023 in [place] Pain Polyarthralgia / stiffness Polyarthralgia and has [...] medication(s). Patient Active Problem List Diagnosis AAT (hbcsk-3-sbjstssrcgc) deficiency (Multi) Abnormal EKG Bilateral hand numbness [...] List Items Addressed This Visit ICD-10-CM AAT (muvyh-1-mrwkofzizgl) deficiency (Multi) E88.01 Vitamin D deficiency E55.9 [...] FU in 2-6 weeks with labs at [facility] fasting and med check / wt check Call to start wegovy pending labs if she wishes and insurance/cost documented in this encounter [facility] Work Phone: 07-11-2024 History of Present illness Narrative Subjective Patient ID: Curly Cowart is a 39 y.o. female who presents for Follow-up (C/O B/L ARM NUMBNESS AND TINGLING X 2 MONTHS. C/O STIFFNESS IN ALL HER JOINTS. C/O FACIAL FLUSHING OFF/ON. REQUESTING REFILL ATIVAN. ) HPI Labs- done in [place] February 2024 Pain Polyarthralgia / stiffness Polyarthralgia [...] medication(s). Patient Active Problem List Diagnosis AAT (fpszz-5-qlepqhxxasm) deficiency (Multi) Abnormal EKG Bilateral hand numbness [...] Behavior: Behavior normal. Testing Reviewed labs from [facility] LFT were Wnl Thyroid WNL Glucose - [...] FU in 6-7 mo with labs at [place] and med check documented in this encounter [facility] Work Phone: 07-11-2024 Reason for visit Narrative Specialty Diagnoses / Procedures Referred By Donna longoria Referred To Contact Radiology Diagnoses Cervicalgia Procedures XR cervical spine 2-3 views Vargas Mujica PA-C [address] [place] [address] Phone: tel: fax: Referral ID Status Reason Start Date Expiration Date Visits Requested Visits Authorized [id number] Authorized Perform Procedure 4 07/11/2025 1 1 [facility] Work Phone: 1(333) 655-651710-11-2024 History of Present illness Narrative* Agata Goldman RT(R) - 06/07/2024 4:30 PM EDT Radiology [...] PATIENT PRESENTS WITH AN IMPLANTABLE OR ATTACHED FIBERGLASS LAMINATOR: No RADIOLOGY DEPARTMENT: General X-ray: Exam(s) Completed: Lower Extremity X- Ray(s): Foot, Left PERIPHERAL IV DATA: Not applicable SIGNED BY: RT Regine(R) June 07, 2024 4:21 PM documented in this encounterCleveland Clinic [facility]10-11-2024 History of Present illness Narrative* Kamilla Coon APRN.CNP - 06/07/2024 4:14 PM EDT Images from [...] and agreement with this plan. Kamilla Coon APRN.CNP documented in this encounterCleveland Clinic [facility] Hospital08-28-2024 History of Present illness Narrative* Jovita [...] PATIENT PRESENTS WITH AN IMPLANTABLE OR ATTACHED FIBERGLASS LAMINATOR: No RADIOLOGY DEPARTMENT: General X-ray: Exam(s) Completed: Chest X-Ray PERIPHERAL IV DATA: Not applicable SIGNED BY: RT Tonny(R) April 24, 2024 4:06 PM documented in this encounterCleveland Clinic Avon Hospital08-28-2024 History of Present illness Narrative* Ami Delgado APRN.[facility] - 04/24/2024 3:31 PM EDT CC: Patient [...] air exchange PAST MEDICAL HISTORY No date: Qzftf-7-mhxalwpedhz deficiency ([facility]) 2008: Cardiac [...] in fallopian tubes 2010: S BALLOON,UTERINE ABLATION [id number] 2019: SHX CARDIAC RADIOFREQUENCY ABLATION Comment: ventricular 2003: TONSILLECTOMY PRIMARY/SECONDARY <AGE 12 Comment: Tonsillectomy, wisdom [...] Unremarkable. IMPRESSION IMPRESSION: No acute radiographic abnormality. Zigzag Topstitcher: YUVAL Transcribe Date/Time: Aug 28 2024 4:15P Dictated by : AMI DAVENPORT MD Patient was given Tessalon Perles for her cough. At this time it is believed to be viral. Patient can treat with pmxn-xif-wftivvd medication for symptom management. Prescription instructions reviewed with patient as applicable. Potential red flag symptoms discussed with the patient. Reviewed appropriate action plan to take if red flag symptoms occur. Patient agreeable to treatment plan. Ami Delgado APRN.SWATI documented in this encounterCleveland Clinic Avon Hospital07-03-2024 History of Present illness Narrative* Vargas [...] floor instability. We discussed follow up with BALL WARPER TENDER for eval but consider pelvic floor therapy Preventative Testing mammo - suggest age 40 - ordered DEXA - suggest age 50-55 colonoscopy - suggest age 45-50 PAP Fall - NEG February 2024 PHQ9 score of 15 March 2024 - known depression and exacerbated OARRS: Vargas Mujica PA-C on 02/28/2024 1:42 PM I have personally reviewed the OARRS report for Curly Jules Sofya. I have considered the risks of abuse, [...] medication(s). Patient Active Problem List Diagnosis AAT (adpuh-6-awcdewjmuln) deficiency (Multi) Abnormal EKG Bilateral hand numbness [...] Behavior: Behavior normal. Testing Component Latest Ref [facility] 09/25/2023 LEUKOCYTES (10*3/UL) IN BLOOD BY AUTOMATED COUNT, FILIPINO 4.4 - 11.3 x10*3/uL 8.2 nRBC 0.0 - 0.0 /100 WBCs 0.0 ERYTHROCYTES (10*6/UL) IN BLOOD BY AUTOMATED COUNT, FILIPINO 4.00 - 5.20 x10*6/uL 5.34 (H) HEMOGLOBIN 12.0 - 16.0 g/dL 15.1 HEMATOCRIT 36.0 - 46.0 % 47.2 (H) MCV 80 - 100 fL 88 MCH 26.0 - 34.0 pg 28.3 MCHC 32.0 - 36.0 g/dL 32.0 RED CELL DISTRIBUTION WIDTH 11.5 - 14.5 % 13.4 PLATELETS (10*3/UL) IN BLOOD AUTOMATED COUNT, FILIPINO 150 - 450 x10*3/uL 208 NEUTROPHILS/100 LEUKOCYTES IN BLOOD BY AUTOMATED COUNT, FILIPINO 40.0 - 80.0 % 63.4 Immature Granulocytes %, Automated 0.0 - 0.9 % 0.1 Lymphocytes % 13.0 - 44.0 % 28.2 Monocytes % 2.0 - 10.0 % 6.7 Eosinophils % 0.0 - 6.0 % 1.2 Basophils % 0.0 - 2.0 % 0.4 NEUTROPHILS (10*3/UL) IN BLOOD BY AUTOMATED COUNT, FILIPINO 1.20 - 7.70 x10*3/uL 5.22 Immature Granulocytes [...] with med check / [facility] documented in [facility] encounterC[facility] Work Phone: [phone]) 519-485502-06-2024 Miscellaneous Notes* Telephone Encounter - Nikita Méndez [...] make future appointment with Dr Garay. Curly# [phone] Nikita Méndez LPN October 03, 2023 8:39 AM documented in this encounterCleveland Clinic [facility]on Hospital01-29-2024 History of Present illness Narrative* Vargas [...] floor instability. We discussed follow up with BALL WARPER TENDER for eval but consider pelvic floor therapy [...] medication(s). Patient Active Problem List Diagnosis AAT (uwmhb-0-jmlweycugyi) deficiency (CMS/HCC) Abnormal EKG Bilateral hand numbness [...] List Items Addressed This Visit ICD-10-CM AAT (rowpz-1-dcctwdgrxxh) deficiency ([facility]) E88.01 Vitamin D deficiency E55.9 Relevant Orders Vitamin D 25-Hydroxy,Total (for eval of Vitamin D levels) (Completed) Depression, major, single episode, moderate (CMS/HCC) F32.1 Elevated ferritin level R79.89 Relevant Orders [...] index (BMI) of50.0 to 59.9 in adult (CMS/[facility]) E66.01, Z68.43 Generalized anxiety [...] check /mood check mammo documented in [facility] encounterC[facility] Work Phone: 1(299) 403-978109-18-2023 Hospital Discharge instructions Patient Education 05/15/2023 18:40:46 [...] or water and you are getting dehydrated [phone] [employer]. [address] [place] [address]. All rights reserved. This information is not intended as a substitute for professional medical care. Always follow yourhealthcare professional's instructions. Follow Up Care 05/15/2023 16:27:17 With:CHANDA VASQUEZ Address: [address] [address] [phone] Business (1) When:2-4 days With:VARGAS MUJICA Address: [address] [place] [address]- [phone] Business (1) When:2-4 days [facility] 09-18-2023 Note Discharge Instructions Thank you for allowing [facility] to assist you with your healthcare needs. The following is importantdischarge information regarding your hospital visit. Diagnosis from Today's Visit Abdominal pain What to Do Next Instructions from Your Care Team No qualifying data available. Post Acute Orders No qualifying data available. You Need to Schedule the Following Appointments Follow Up with CHANDA VASQUEZ When Within 2-4 days Where: [address] [address] [phone] Business (1) Follow Up with VARGAS MUJICA When Within 2-4 days Where: [address] [place] [address]- [phone] Business (1) Allergies Wellbutrin morphine penicillin Medications [...] or water and you are getting dehydrated [id number] [employer]. [address] [place] [address]. All rights reserved. This information is not intended as a substitute for professional medical care. Always follow yourhealthcare professional's instructions. Additional Information VACCINATE! IT SAVES LIVES! Members of the community who have not yet received the COVID-19 vaccine and would like to receive it can visit one of [facility] vaccine clinics. There are many vaccine clinic locations within the [facility]. For locations and available times, please visit www.[email or web address].[email or web address]/. It is important to note that some COVID mobile vaccine clinics are held outdoors and may be canceled in rainy or stormy conditions. To learn more about pediatric vaccinations (ages 5-11), we invite you to visit the [facility] webpage. https://www.[facility].org/pages/6312-Vxlpx-Dewmxdxdlhh-Gixnatrnvs-Icumr-Qum stions.htmlTo learn more about the COVID-19 vaccine, we invite you to visit the CDC website for a list of frequently asked questions. https://www.cdc.gov/coronavirus/2019-ncov/vaccines/faq.html [facility] Patient Portal Access Instructions: Stay connected with your healthcare team and access your personal medical information anytime with the [facility] Patient Portal. If you would like a full copy of your medical records please contact the [facility] Medical Records Department Monday through Monday between 8a.m. and 4:30p.m. Please follow the directions below to access the portal: 1.Access the email account you provided upon registration to the [facility].2.Look for an invitation email from [facility].3.Open the email and access the invitation link: Accept Invitation to [facility]4.Fill in the required palma to create your account. Sign into [email or web address] with your username and password that you [...] you will allow to register on the [facility] Patient Portal for access to your information. You can also access the [facility] Patient Portal on the AppZero joanna. Simply click on Health Records under IntheGloData and then click on the [employer] logo. HOW TO SAFELY DISPOSE OF PRESCRIPTION [...] Call your local pharmacy or go to [email or web address] to find one close to you.3.Make use of household items: Use cat litter or old coffee grounds to dispose medications if other options arenot available. Mix your drugs with these household products, seal them in an airtight container andthrow it into the garbage. Call [facility]: [phone] to be sure your drugs can be [...] been reviewed and explained to me and SOFYA Vega AMANDA J understand my current condition and have read and understand these discharge instructions. I have received a written copy of the plan/instructions. If I have questions, I am aware that I should contactmy doctor. Patient/Bioinformatics Research Technician Signature: Date/Time: Relationship to Patient: Witness Name/Signature: Date/Time: [facility] Janellerna [id number] Note ORIGINAL EXAMINATION: CT OF THE ABDOMEN [...] Sign Date: 05/15/2023 6:26:14 PM Ordering Provider[facility] Sinus rhythm Left ventricular hypertrophy Electronic Signature: KVNG DOMINGUEZ MD 05/15/2023 17:04:40[facility] 07-03-2023 Miscellaneous Notes* Telephone Encounter - Marielos Mares RN - 02/27/2023 12:28 PM EDT Images from the original note were not included. [employer] message sent by Dr. Cheung to the patient. ANDRE Adan MD to Curly Cowart 1:35 PM Hello Monitor shows 2 runs of SVT benign arrhythmia SHORT LIVED We could watch this for now . If bothersome we could use meds sleik Last read by Curly Cowart at 2:25 PM on 02/24/2023. * Telephone Encounter - Michaela Luevano - 02/24/2023 1:30 PM EDT Images from the original note were not included. Tomasz Garay MD 2 short episodes of SVT medical therapy sleik * Telephone Encounter - Michaela Luevano - 02/21/2023 9:50 AM EDT I was talking to patient about scheduling and she notes that she has not heard back on her ZIO results. Ok to send bOombate message. Please review and advise. Michaela Luevano MA documented in this encounterCleveland Clinic [facility]on Hospital06-15-2023 History of Present illness Narrative* Vargas [...] floor instability. We discussed follow up with BALL WARPER TENDER for eval but consider pelvic floor therapy [...] today: Yes Recent Results (from the past 16851 hour(s)) OPIATE/OPIOID/BENZO PRESCRIPTION COMPLIANCE Collection Time: 05/25/21 [...] Better Patient Active Problem List Diagnosis AAT (dtjql-6-gjkhzgemetn) deficiency (CMS/HCC) Anxiety Abnormal EKG Bilateral hand [...] symptoms - plans to follow up with BALL WARPER TENDER first - discussed pelvic floor thearpy In [...] labs and med check documented in this encounterUniversity [facility]als [facility] Work Phone: 1(670) 421-967905-15-2023 Miscellaneous Notes* Telephone Encounter - Michaela Luevano [...] calling in stating she was seen in express care for heart palpitations, and HR in 50's. Also having dizzy spells. EC thought she should get a holter monitor but wanted her to follow up with her hand picker. First available isn't until July. Please advise. documented in this encounterCleveland Clinic [facility]on Hospital05-07-2023 History of Present illness Narrative* Shahid Gamble APRN.[facility] - 01/01/2023 9:23 AM EDT Subjective HPI [...] 2 days PAST MEDICAL HISTORY Diagnosis Date Utelz-2-unamtwcwwdm deficiency (HCC) Cardiac dysrhythmia, unspecified 2007 Depressive [...] coils in fallopian tubes S BALLOON,UTERINE ABLATION 73005 2009 SHX CARDIAC RADIOFREQUENCY ABLATION 2018 ventricular [...] provider/curette Discussed proper ear hygiene. Shahid Gamble APRN.[facility] documented in this encounterCleveland Clinic Avon Hospital03-14-2023 Instructions* Patient Instructions* JUNE Rodriguez - 11/08/2022 11:57 AM EDT Rest, ice, elevation. Return to ED with new/worsening symptoms. documented in this encounterCleveland Clinic Avon Hospital03-14-2023 History of Present illness Narrative* Agata [...] 08, 2022 11:35 AM documented in this encounterCleveland Clinic Avon Hospital03-14-2023 History of Present illness Narrative* JUNE Rodriguez - 11/08/2022 11:17 AM EDT Images from the original note were not included. This note was created using Gendelriter. Subjective Curly Cowart is a 37 year [...] other complaints PAST MEDICAL HISTORY Diagnosis Date Jrems-6-idljdpohunl deficiency (HCC) Cardiac dysrhythmia, unspecified 2008 Depressive disorder, not elsewhere classified DVT (deep venous thrombosis) ([facility]) after PICC line Esophageal reflux Shahzad thyroiditis [...] coils in fallopian tubes S BALLOON,UTERINE ABLATION 25890 2009 SHX CARDIAC RADIOFREQUENCY ABLATION 2018 ventricular [...] ER evaluation. JUNE Rodriguez documented in this encounterCleveland Clinic [facility]on Hospital02-20-2023 Chief complaint Narrative - Reported* An [...] PALPITATIONS, SINUS CONGESTION, RUNNY NOSE, SORE THROAT. -[facility] Work Phone: [phone]) 357-900002-16-2023 History of Present illness Narrative* Patient presents [...] of the last Controlled Substance Agreement: 05/25/2021 -[facility] Work Phone: 1(925) 674-248602-13-2023 Miscellaneous Notes* Telephone Encounter - Saranya Breaux [...] 10, 2022 8:26 AM documented in this encounterCleveland Clinic Avon Hospital01-26-2023 History of Present illness Narrative* Ami Delgado APRN.SWATI - 09/22/2022 1:38 PM EST CC: Patient [...] air exchange PAST MEDICAL HISTORY Diagnosis Date Dwtmm-8-oxwtroctero deficiency (HCC) Cardiac dysrhythmia, unspecified 2007 Depressive [...] coils in fallopian tubes S BALLOON,UTERINE ABLATION 84286 2009 SHX CARDIAC RADIOFREQUENCY ABLATION 2019 ventricular TONSILLECTOMY PRIMARY/SECONDARY <AGE 12 2003 Tonsillectomy, [...] Patient agreeable to treatment plan. Ami Delgado APRN.[facility] documented in this encounterCleveland Clinic Avon Hospital01-22-2023 History of Present illness Narrative* VIRTUAL VISIT DUE TO COVID19 . * COUGH WITH CHEST CONGESTION AND SOB ON EXERTION X 4 DAYS . HAD NEGATIVE HOME COVID TEST 3 DAYS AGO.DIDN'T GET THE COVID VACCINES. [facility] Work Phone: [phone] Chief complaint Narrative - Reported* An interactive [...] and chest pain. Serves no further complaints [facility] Work Phone: 1(791) 681-227712-21-2022 History of Present illness Narrative* Patient presents [...] of the last Controlled Substance Agreement: 05/25/2021 -[facility] Work Phone: 1([phone]) 273-246612-19-2022 Miscellaneous Notes* Telephone Encounter - Miguel Salgado APRN.CNP - 08/15/2022 3:41 PM EST No other recommendations for patient from a bariatric standpoint. This is something that should continue to be managed by her PCP. Please have her continue to follow up with her PCP for this. Miguel Salgado APRN.CNP documented in this encounterCleveland Clinic Avon Hospital11-15-2022 Miscellaneous Notes* Telephone Encounter - Janett Harris-Nurse - 07/12/2022 9:10 AM EST Called to schedule for 6 mo p/o appt. No answer, LVM 6 Month P/O- -SLEEVE 04/11/2022 documented in this encounterCleveland Clinic Avon Hospital11-15-2022 History of Present illness Narrative* Marjan [...] 52.94 kg/(m^2) Total weight loss: 78 lb [place] weight: 70.3 kg (154 lb 14.5 oz) [...] be falsely elevated) In 3 months: See [facility] Orders ASSESSMENT/PLAN: 1. S/P laparoscopic sleeve gastrectomy [...] there is improvement since weight loss. Marjan dEdy APRN.[facility] [employer] Total time in direct patient contact = 20 min. Greater than 50% of the time was spent in counselingand/or coordination of care. Medical Decision Making: Problems: Moderate: 2+ stable chronic illnesses Data: Unique test result(s) reviewed: 1 Unique test(s) ordered: 1 Risk: Minimal: Minimal risk from testing/treatment Medical Decision Making Level: 3 - Low documented in this encounterCleveland Clinic Avon Hospital11-15-2022 History of Present illness Narrative* Audrey Spivey RD - 07/12/2022 7:46 AM EST 3 Month Post-op--Visit conducted via [employer] Zoom (audio and visual) d/t COVID 19 [...] support group: encouraged attendance Vitamins--per manual: MVI: [facility] bariatric with 18mg iron, morning B12: [...] Pt is maintaining a food journal daily, [employer] joanna. Pt presents 2 months post SG. [...] minutes OR 150 min/week (walking, chair exercises, BegunFIT youtube videos)--consider 10 minute intervals journal daily [...] may contain grammatical errors. documented in this encounterCleveland Clinic Avon Hospital11-07-2022 Miscellaneous Notes* Addendum Note - Miguel Salgado APRN.[facility] - 2022 10:52 AM ESTAddended by: MIGUEL SALGADO on: 2022 10:52 AM Modules accepted: Orders * Telephone Encounter - Johanny Wilkins MA - 2022 8:31 AM EST Please advise if you would be okay with adding this lab. Johanny Wilkins MA 2022 8:32 AM documented in this encounterCleveland Clinic Avon Hospital10-07-2022 History of Present illness Narrative* Amirah [...] intake: Yes 24 hr recall: 06/02 B: kuwaiti yogurt (20g) L: chicken salad - ~(21g) [...] her sister also had surgery Vitamins: MVI: [facility] bariatric with 18mg iron capsule - did [...] minutes OR 150 min/week (walking, chair exercises, BegunFIT youtMemoryBistro videos)--consider 10 minute intervals journal daily and bring to all appointments--maintain at least 5-7x/week meet 60-90g protein and 64oz of fluids per day [facility] bariatric 18mg iron in the morning + 2.5-3, 500mg calcium citrate soft chews split between lunch and dinner Total time in direct patient contact = 20 min. Greater than 50% of the time was spent in counselingand/or coordination of care. Amirah Flores RD This note was generated using voice recognition technology and may contain grammatical errors. documented in this encounterCleveland Clinic Avon Hospital10-06-2022 Miscellaneous Notes* Telephone Encounter - Janett Harris-Nurse - 06/02/2022 10:01 AM EDT Called to schedule 3 Mo P/O , vm full unable to leave message documented in this encounterCleveland Clinic Avon Hospital10-06-2022 History of Present illness Narrative* Marjan Eddy APRN.[facility] - 06/02/2022 9:34 AM EDT BARIATRIC SURGERY [...] 62.62 kg/(m^2) Total weight loss: 54 lb [place] weight: 70.3 kg (154 lb 14.5 oz) [...] 1500mg) Multivitamin & Minerals: 1 per day- ZIRX 18 capsule Iron Supplement: 18mg in MVI [...] counselingand/or coordination of care. documented in this encounterCleveland Clinic Avon Hospital08-31-2022 Miscellaneous Notes* Telephone Encounter - Sarah Brown Ma - 04/27/2022 10:12 AM EDT Pharmacy sent a [employer] message requesting the following refill. Requested Prescriptions Pending Prescriptions Disp Refills pantoprazole DR (PROTONIX) 40 mg tablet [Pharmacy Med Name: PANTOPRAZOLE SOD DR 40 MG TAB] 90 tablet 1 Sig: TAKE 1 TABLET BY MOUTH EVERY DAY Next Appointment: 06/02/2022 Patient Phone numbers: [phone] (home) Request is for script(s) to be escript to pharmacy. Sarah Brown Ma documented in this encounterCleveland Clinic Avon Hospital08-25-2022 History of Present illness Narrative* Audrey Spivey RD - 04/21/2022 1:30 PM EDT 10 days Post-Op--Visit conducted via [employer] (audio and visual) d/t COVID 19 Curly Cowart Surgery Date: SG 04/11/22 17# lost since surgery Final pre-surg [...] fatigue Exercise: shopping, ADLs Vitamins--per manual: MVI: [facility] bariatric with 18mg iron chewable (does ok [...] protein and 64oz of fluids per day [facility] bariatric 18mg iron in the morning + [...] may contain grammatical errors. documented in this encounterCleveland Clinic Avon Hospital08-24-2022 Miscellaneous Notes* Telephone Encounter - Saranya Breaux RN - 04/20/2022 1:02 PM EDT Images from the original note were not included. MD Saranya Álvarez RN; Marjan Eddy APRN.[facility] [employer] [facility] I attempted to call and discuss with [...] 20, 2022 1:04 PM documented in this encounterCleveland Clinic Avon Hospital08-23-2022 History of Present illness Narrative* Oliverio Sebastian, RT(R) - 04/19/2022 4:30 PM EDT Radiology Service [...] DEPARTMENT: CT; Exam(s) Completed: Abdomen/Pelvis SIGNATURE: RT Edison(R) PATIENT NAME: Curly Cowart DATE: April 19, 2022 TIME: 4:04 PM documented in this encounterCleveland Clinic Avon Hospital08-23-2022 History of Present illness Narrative* Marjan Eddy APRN.[facility] [facility] - 04/19/2022 10:24 AM EDT BARIATRIC SURGERY [...] 64.88 kg/(m^2) Total weight loss: 18 lb [place] weight: 70.3 kg (154 lb 14.5 oz) [...] Dr. Davila, covering surgeon. documented in this encounterCleveland Clinic Avon Hospital08-22-2022 Miscellaneous Notes* Telephone Encounter - Jennifer Anthony - 04/18/2022 4:14 PM EDT Patient called pain in side seeing Marjan 04/19/2022 will see her tomorrow documented in this encounterCleveland Clinic Avon Hospital08-18-2022 Miscellaneous Notes* Telephone Encounter - Marjan [...] and protein(60-80 grams/day) as prescribed by the groundman or nutritional counselor? YES 4. Are you taking the vitamins and minerals as prescribed? YES 5. Do you have the flood control engineer number to contact your surgeon if you [...] you have an appointment to see a groundman or nutritional counselor in the next month?YES [...] with any questions or concerns Marjan Eddy APRN.CNP documented in this encounterCleveland Clinic Avon Hospital08-16-2022 Miscellaneous Notes* Telephone Encounter - Saranya [...] to call into the bariatric office at [phone], hit option #2 for the post-op line [...] 12, 2022 1:10 PM documented in this encounterCleveland Clinic Avon Hospital08-10-2022 Miscellaneous Notes* Telephone Encounter - Jennifer Anthony - 04/06/2022 4:08 PM EDT Called patient to let them know about pre testing tomorrow LVM documented in this encounterCleveland Clinic Avon Hospital08-09-2022 Miscellaneous Notes* Telephone Encounter - Saranya [...] incidental. Marjan Eddy APRN.SWATI documented in this encounterCleveland [id number] Miscellaneous Notes* Telephone Encounter - Sarah Brown [...] it? Sarah Brown Ma documented in this encounterCleveland Clinic Avon Hospital08-04-2022 Instructions* Patient Instructions* Marjan Eddy APRN.SWATI - 03/31/2022 12:56 PM EDT Images from [...] into small incisions (cuts) made inyour abdomen ([facility]). The laparoscope is a long metal [...] your medicine. Do not take any medicines, qsne-nsq-kwkqrot drugs, vitamins, herbs or food supplements without [...] be off your narcotic pain medications. Sexual [place] (sex): You may have sex in approximately [...] weight loss surgery, contact the following: o [employer] [address] [place] [address], [place] www.obesity.org o [employer] (ASMBS) [address] [address] www.asmbs.org o See the attached support group meeting schedule SEEK CARE IMMEDIATELY IF: o You have sudden chest pain, trouble breathing, or are coughing up blood. Call 911 or 0 (Manager School)to get to the nearest hospital or clinic. [...] gastrectomy or your care. documented in this encounterCleveland Clinic Avon Hospital08-04-2022 History of Present illness Narrative* Marjan Eddy APRN.SWATI - 03/31/2022 12:53 PM EDT BARIATRIC SURGERY [...] She is currently on day #4 of [facility] HISTORY REVIEWED (electronic chart updated): - medical history - medications - allergies PAST MEDICAL HISTORY Diagnosis Date Dsekm-9-yfwszbbhfii deficiency (HCC) Cardiac dysrhythmia, unspecified 2007 Depressive [...] pharmacy Still need clearance from PCP Marjan Eddy APRN.CNP Preoperative instructions discussed with the patient in [...] information was sent to the patient through Neterion message as well. I spent a total of 30 minutes on the date of the service which included preparing to see the patient, elbm-cm-qolc patient care, completing clinical documentation, obtaining and/or reviewing separately obtained history, counseling and educating the patient/family/caregiver, ordering medications, uri ts, or procedures and care coordination (not separately reported). Medical Decision Making: Problems: Moderate: 2+ stable chronic illnesses Data: Assessment requiring an independent historian(s) Risk: Moderate: Drug management Medical Decision Making Level: 4 - Moderate documented in this encounterCleveland [facility] History of Present illness Narrative* Marjan Eddy, PIT FURNACE MELTER.CURTAIN FELLER BLINDSTITCH - 03/24/2022 11:30 AM EDT Scheduled for [...] On PPI Tylenol: will require Marjan Eddy APRN.[employer]TAIN FELLER BLINDSTITCH * Tata Rosas MD - 03/24/2022 11:16 AM EDT BARIATRIC SURGERY NEW PATIENT CONSULTATION HISTORY AND PHYSICAL Date: March 24, 2022 Time: 11:16 AM Curly Cowart is a 36 year old year old female with obesity (Body mass index is 65.37 kg/m .), anxiety/depression (effexor; PRN ativan), 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 Her father has tobiz-6-qyiqomnuwxz deficiency and underwent a liver transplant. She [...] radiofrequency ablation PAST MEDICAL HISTORY Diagnosis Date Aknto-1-hytfkvfnzxv deficiency (HCC) Cardiac dysrhythmia, unspecified 2007 Depressive [...] coils in fallopian tubes S BALLOON,UTERINE ABLATION 09650 2009 SHX CARDIAC RADIOFREQUENCY ABLATION ventricular TONSILLECTOMY [...] on recommendations of the Governor of the [facility]. We have extensively discussed the nature [...] has a history of DVT 3. 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 The patient agreed to this virtual visit documented in this encounterCleveland Clinic [facility]07-20-2022 History of Present illness Narrative* Amirah Flores, RD - 03/16/2022 11:30 AM EDT Curly [...] divided doses 24 hr recall: 03/15 B: 1/2 veggbrandie bagel L: mini supreme pizza D: cheeseburger - [...] at least 5 days per week via Pro[employer] joanna. Per 24 hr recall, meeting lower [...] with more than 50% of the total zzon-ql-qtvf time of the visit in counseling / coordination of care. Amirah Flores RD This note was generated using voice recognition technology and may contain grammatical errors. documented in this encounterCleveland Clinic [facility]07-19-2022 Miscellaneous Notes* Telephone Encounter - Katie Alvarez MA - 03/15/2022 8:34 AM EDT Called patient for pre-checkin. No answer, and no voicemail set up or it was full Katie Alvarez MA March 15, 2022 documented in this encounterCleveland Clinic [facility]06-21-2022 History of Present illness Narrative* Marjan Eddy APRN.[facility] - 02/15/2022 9:33 AM EDT BARIATRIC [...] chart updated): PAST MEDICAL HISTORY Diagnosis Date Zqcvx-5-dbnnschahcw deficiency (HCC) Cardiac dysrhythmia, unspecified 2007 Depressive [...] clearance from nutrition and pulmonology. Follow-up with [facility] next month to review clearance status. She is scheduled in March to re-consent with Dr. Rosas. Marjan Eddy APRN.[employer]TAIN FELLER BLINDSTITCH Total time in direct patient contact = 13 min. Greater than 50% of the time was spent in counselingand/or coordination of care. This note was generated using voice recognition technology and may contain grammatical errors. documented in this encounterCleveland Clinic [facility]06-21-2022 History of Present illness Narrative* Audrey Spivey, RD - 02/15/2022 9:00 AM EDT Curly Cowart--Visit conducted via [employer] (audio and visual) d/t COVID 19 Month [...] Varies with documentation. Patient presents for month , note this is her third follow-up visit [...] scheduled for re-consent appt in March per [facility] note 02/15/22. Total time in direct patient contact = 29 minutes. Greater than 50% of the time was spent in counseling and/or coordination of care. Audrey Spivey RD This note was generated using voice recognition technology and may contain grammatical errors. documented in this [facility]06-20-2022 Miscellaneous Notes* Telephone Encounter - Laly Nguyen RN - 02/14/2022 4:00 PM EDT I did one and sent it to their office. Thanks, Hung Emerson MD Message text * Telephone Encounter - Laly Nguyen RN - 02/09/2022 1:52 PM EDT Patient is requesting a clearance letter for bariatric surgery sent to Dr Rosas . Laly Nguyen RN documented in this encounterCleveland [facility]06-16-2022 Miscellaneous Notes* Telephone Encounter - Deanna Timmons Adm Asst - 02/10/2022 3:37 PM EDT Order for pulmonary clearance [facility]. Deanna Timmons Adm Asst documented in this [facility]06-15-20[facility] Miscellaneous Notes* Telephone Encounter - Laly [...] Thanks, Hung Emerson MD documented in this encounterCleveland Clinic [facility]06-14-2022 Miscellaneous Notes* Telephone Encounter - Marjan Eddy APRN.SWATI - 02/08/2022 1:58 PM EDT Noted. Will communicate this to Dr. Rosas for surgical planning. Thank you! Marjan Eddy APRN.[employer]LL[employer] BLINDSTITCH * Telephone Encounter - Brooks Soto MD - 02/08/2022 12:01 PM EDT I signed her GI risk stratification for bariatric surgery. I suggest she get another set of LFT's before and likely needs iver biopsy if possible during the surgery. It would be beneficial. documented in this encounterCleveland Clinic [facility]06-08-2022 Miscellaneous Notes* Telephone Encounter - Lisa Esparzauber - 02/02/2022 8:49 AM EDT Images from the original note were not included. Marjan Eddy APRN.[employer] FELL[employer] BLINDSTITCH P [facility] Bariatric Surgery Pool Please request pulmonary/sleep clearance with OK to not use CPAP for mild BRISEYDA before surgery. We did have the OK from sleep med in from 2019. Please request clearance from gastroenterology FAXED. Brooks Soto MD Gastroenterology 02/02/2022 End 02/02/22 ; Hung Emerson MD Pulmonary and Critical Care Medicine 02/02/2022 End 02/02/22 ; Lisa Storey School Coordinator Bariatric Dept. P: [phone] Ext [phone] documented in this encounterCleveland Clinic [facility]06-08-2022 History of Present illness Narrative* RT [...] 02, 2022 7:23 AM documented in this encounterCleveland Clinic [facility]06-08-2022 History of Present illness Narrative* Mary Laguerre - 02/02/2022 6:54 AM EDT PULM FUNCTION SMARTBLOCK: Provider: Hung Emerson MD Assisting Tech: Mary Laguerre Spirometry w/BD: 1 DLCO: 1 LV - Box: 1 System: [id number] documented in this encounterCleveland Clinic [facility]05-24-2022 History of Present illness Narrative* Marjan Eddy APRN.CURTAIN FELLER BLINDSTITCH - 01/18/2022 9:25 AM EDT BARIATRIC SURGERY [...] - allergies PAST MEDICAL HISTORY Diagnosis Date Sffjl-0-weqrwxlyevj deficiency (HCC) Cardiac dysrhythmia, unspecified 2007 Depressive [...] lab works comes back 3. COVID-19 long kenuler - ICD9: 139.8, ICD10: U09.9 - CT [...] changes to medical history. Follow up with [facility] 4 weeks to review clearance status. Marjan Eddy APRN.SWATI Total time in direct patient contact = 14 min. Greater than 50% of the time was spent in counselingand/or coordination of care. This note was generated using voice recognition technology and may contain grammatical errors. documented in this encounterCleveland Clinic [facility]05-20-2022 Miscellaneous Notes* Telephone Encounter - Laly [...] of the gene however. documented in this encounterCleveland Clinic [facility]05-19-2022 History of Present illness Narrative* Brooks [...] Pt's F had OLT for TORRES vs K-7-dqmhzbpmzjc def. Has had hep A and B [...] DIRECTED PRN PAST MEDICAL HISTORY Diagnosis Date Rikhp-8-kojbyhymueb deficiency (HCC) Cardiac dysrhythmia, unspecified 2007 Depressive [...] coils in fallopian tubes S BALLOON,UTERINE ABLATION [id number] SHX CARDIAC RADIOFREQUENCY ABLATION ventricular TONSILLECTOMY PRIMARY/SECONDARY [...] surgery. Brooks Soto MD documented in this encounterCleveland Clinic [facility]05-09-2022 History of Present illness Narrative* Hung Emerson MD - 01/03/2022 4:02 PM EDT PATIENT NAME: Curly Cowart DATE OF SERVICE: January 03, 2022 PRIMARY CARE PHYSICIAN: JUNE Deshpande, PA CARE TEAM: Patient Care Team: JUNE Deshpande as PCP - General (Internal Medicine) Joshua Wall (Hist) Neel as Specialty Race Starter (Cardiology) Edith Taylor MD as Specialty Race Starter (Gastroenterology) Bonita Naqvi as Specialty Race Starter (Rheumatology) Referral No as Referring (Cardiology) Eric [...] however, her father underwent liver transplantation at [facility] for what was thought to be TORRES initially, but is now thought to be due to alpha 1-antitrypsin deficiency. She denies frequent or recurrent respiratory tract infections including pneumonias, sinus infections, and other upper respiratory infections. 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, shopping, meal preparation, work, etc.) at a [...] MEDICAL HISTORY: PAST MEDICAL HISTORY Diagnosis Date Ctkeo-8-tcjgckxbatr deficiency (HCC) Cardiac dysrhythmia, unspecified 2007 Depressive [...] METHOD SPX 2004 LAPAROSCOPIC UTERINE NERVE ABLATION 2012 LIVER BIOPSY 2008 MIDLINE CATHETER 09/21/2018 PAST SURGICAL HISTORY OF 2009 spring coils in fallopian tubes S BALLOON,UTERINE ABLATION 82494 2010 SHX CARDIAC RADIOFREQUENCY ABLATION ventricular TONSILLECTOMY [...] 10 mL INTRAVENOUS DIRECTED PRN Johanny Marmolejo APRN.CURTAIN FELLER BLINDSTITCH LABS/IMAGING/DIAGNOSTIC STUDIES: CXR/CT: 12/19/20 CHEST X-RAY IMPRESSION: [...] addressed. Hung Emerson MD documented in this encounterCleveland [facility]05-02-2022 Miscellaneous Notes* Telephone Encounter - Tiffanie Small MA - 12/27/2021 1:36 PM EDT Pt scheduled 02/14/[address] Charles Small MA * Telephone Encounter - Tiffanie Small MA - 12/27/2021 1:36 PM EDT ----- Message from Reynalod Jasso sent at 12/27/2021 11:50 AM EDT ----- Regarding: Elevated liver enzymes / New Patient / Referral Patient has been identified by name and Date of (Y/N): Y Patient: Curly Cowart Date of : 1985 Provider for this encounter: JUNE Deshpande, PA Reason for the call/escalation: Per tool, elevate to office to schedule for elevated liver enzymes Was Patient Referred to 1/Seek Emergency Treatment (Y/N): N Did Patient Agree (Y/N): N/A Was An Attempt Made To Transfer The Patient To The Office (Y/N): N Were You Able To Reach Someone At The Office (Y/N): N/A If Yes - Patient Was Transferred To (Caregivers Name): N If No - Which [facility] Leadership Yacht Rigger Did You Speak With Regarding This Patient: [...] other than patient: N/A Best contact number: [phone] Thank you, Reynaldo Jasso December 27, 2021 11:51 AM documented in this encounterCleveland Clinic [facility]05-02-2022 History of Present illness Narrative* Amirah Flores, NELLA - 12/27/2021 8:00 AM EDT Curly Cowart [...] exercise 24 hr recall: B: skipped L: irish fries D: none S: none F: 62 [...] presents for a nutrition follow up per [facility] request due to weight regain (29# from 05/26/21). Previously cleared from nutrition on 05/26 (also last time patient met with RD). Will update clearance status today. Patient is tracking 3 days/week via physical food journal, was previously using ProRadis joanna. She is able to calculate her [...] taking flintstones complete MVand has already purchased ZIRX 18 for after surgery. Plan: follow up [...] with more than 50% of the total sxyx-fs-stnn time of the visit in counseling / coordination of care. Amirah Flores RD documented in this encounterCleveland Clinic [facility]04-29-2022 Miscellaneous Notes* Telephone Encounter - Talya Jackson RN - 12/24/2021 1:38 PM EDT Called patient and advised that she needs a follow-up appointment with Dr. Taylor. Message has beensent to Scarlett Amador acrobatic dancer to try to find patient a sooner [...] 12/24/2021 10:59 AM EDT Curly Cowart (Self) [phone] (H) Remove By Analilia Ho Patient called to discuss possible having a diagnosis of Hepatitis. She most recently had a ultrasound with enlarged liver, she would like new lab orders to be placed in epic. She would like a rt call to discuss She is aware she has not been seen since 2018 documented in this encounterCleveland Clinic [facility]04-29-2022 History of Present illness Narrative* Marjan Eddy APRN.SWATI - 12/24/2021 8:53 AM EDT BARIATRIC SURGERY [...] remain elevated. 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 Continues to have mild RYAN which is lingering from COVID 19 diagnosis. She completed 30 days holtermonitor and results were unremarkable- she has been cleared by cardiology. HISTORY REVIEWED (electronic chart updated): - medical history - medications - allergies PAST MEDICAL HISTORY Diagnosis Date Kvecy-3-jcbflforafi deficiency (HCC) Cardiac dysrhythmia, unspecified 2007 Depressive [...] antitrypsin trait. She has a GI at [facility] and plans to reach out to [...] since she has consented. Follow up with [facility] next month to review these clearances. Marjan Eddy APRN.SWATI Total time in direct patient contact = 20 min. Greater than 50% of the time was spent in counselingand/or coordination of care. This note was generated using voice recognition technology and may contain grammatical errors. documented in this encounterCleveland Clinic [facility]04-15-2022 Miscellaneous Notes* Telephone Encounter - Lisa Storey - 12/10/2021 2:00 PM EDT Please review [facility] internal medicine records in scanned documents received today. Lisa Storey School Coordinator Bariatric Dept. P: [phone] Ext [phone] documented in this encounterCleveland Clinic [facility]04-15-2022 Miscellaneous Notes* Telephone Encounter - Meagan [...] Visit date not found Patient Phone numbers: [phone] (home) Request is for script(s) to be escript to pharmacy. Meagan Fitzgerald MA documented in this encounterCleveland Clinic [facility]04-07-2022 Miscellaneous Notes* Telephone Encounter - Art Caputo APRN.CNP - 12/02/2021 2:23 PM EDT Reviewed; US showed hepatomegaly (23.2cm) and fatty liver. Will route to surgeon. Art Caputo APRN.CNP * Telephone Encounter - Lisa Storey - 12/02/2021 1:27 PM EDT [facility] results received and scanned into chart for review. Lisa Storey School Coordinator Bariatric Dept. P: [phone] Ext [phone] documented in this encounterCleveland Clinic [facility] Hospital04-06-2022 Miscellaneous Notes* Telephone Encounter - Leanne Bass - 12/01/2021 8:52 AM EDT Called 4x- phone rings busy- needs VV with JOANNA EST- ERIK/MYLENE/CHENGC/6 Months * Telephone Encounter - Johanny Wilkins MA - 12/01/2021 7:57 AM EDT Patient called back in regarding her surgery and would like to schedule. Per Marjan's last note, she needs to be seen in 1 month with her to assess. Please contact the patient to schedule her appointment. Johanny Wilkins MA December 01, 2021 8:00 AM documented in this encounterCleveland Clinic [facility] Hospital04-04-2022 Miscellaneous Notes* Telephone Encounter - Johanny Wilkins MA - 11/29/2021 11:09 AM EDT Contacted the patients PCP to obtain most recent labwork. I left a message in the clinical question mailbox to fax results over or call back with any questions. Johanny Wilkins MA November 29, 2021 11:10 AM documented in this encounterCleveland Clinic [facility] Hospital03-25-2022 Miscellaneous Notes* Telephone Encounter - Lisa Storey - 11/19/2021 11:20 AM EDT Updated cardiac clearance sent to Dr. Garay via [facility] and fax. Lisa Storey School Coordinator Bariatric Dept. P: [phone] Ext [phone] documented in this encounterCleveland Clinic [facility] Hospital03-25-2022 History of Present illness Narrative* Marjan Eddy APRN.CURTAIN FELLER BLINDSTITCH - 11/19/2021 8:41 AM EDT BARIATRIC SURGERY [...] - allergies PAST MEDICAL HISTORY Diagnosis Date Qleog-9-hrrzrmpzznf deficiency (HCC) Cardiac dysrhythmia, unspecified 2007 Depressive [...] rescheduling surgery - May consider MRCP 5. 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 documented in this encounterCleveland [id number] Miscellaneous Notes* Telephone Encounter - Katie Alvarez [...] Visit date not found Patient Phone numbers: [phone] (home) Request is for script(s) to be escript to pharmacy. Katie Alvarez MA documented in this encounterCleveland Clinic [facility]on Hospital12-23-2021 Chief complaint Narrative - Reported* An [...] SHE DIDN'T FINISH THEM STILL VERY FATIGUE [facility] Internal Medicine Work Phone: 1(404) 733-918512-11-2021 History of Present illness Narrative* ALLA JERONIMO PATIENT THAT * VIRTUAL APPOINTMENT BEING PERFORMED DUE TO COVID-19 (CORONAVIRUS) * Presents today for 1 WEEK F/U COVID. C/O SLIGHT NASAL CONGESTION AND FATIGUE REMAINS modifying factors consists of POSITIVE COVID ON 08/07/21 associated symptoms consist of SMELL AND TASTE IS OFF. NOSOB OR CP prior treatment consists of medication STOPPED MEDS [facility] Work Phone: 1(339) 753-783012-01-2021 History of Present illness [id number] YOF presents with concerns of pain above right breast since having COVID-19 in July 2021. She is concerned about increased generalized edema since COVID-19 infection. Also reports increased SOB since COVID-19. Reports having a moderately severe COVID-19 infection.-[facility] Work Phone: 1(407) 998-901004-24-2021 History of Present illness Narrative* Alondra Lu [...] 19, 2020 10:41 AM documented in this encounterCleveland Clinic [facility]07-07-2008 History of Past illness Narrative* Problem Noted Date Resolved Date Nonspecific abnormal results of liver function s [place] 03/03/2008 04/09/2015 documented as of this encounter (statuses as of 11/19/2021) [facility] Narrative* Problem Noted Date Resolved Date Nonspecific abnormal results of liver function s [place] 03/03/2008 04/09/2015 documented as of this encounter (statuses as of 11/19/2021) [facility] of [facility] illness Narrative* Problem Noted Date Resolved Date Nonspecific abnormal results of liver function s [facility] 03/03/2008 04/09/2015 documented as of this encounter (statuses as of 11/19/2021) [facility] Narrative* Problem Noted Date Resolved Date Nonspecific abnormal results of liver function s monica 03/03/2008 04/09/2015 documented as of this encounter (statuses as of 11/29/2021) [facility] Narrative* Problem Noted Date Resolved Date Nonspecific abnormal results of liver function s tudy 03/03/2008 04/09/2015 documented as of this encounter (statuses as of 11/30/2021) [facility] Narrative* Problem Noted Date Resolved Date Nonspecific abnormal results of liver function s tudy 03/03/2008 04/09/2015 documented as of this encounter (statuses as of 12/01/2021) [facility] Narrative* Problem Noted Date Resolved Date Nonspecific abnormal results of liver function s dy 03/03/2008 04/09/2015 documented as of this encounter (statuses as of 12/02/2021) [facility] Narrative* Problem Noted Date Resolved Date Nonspecific abnormal results of liver function s dy 03/03/2008 04/09/2015 documented as of this encounter (statuses as of 12/02/2021) [facility] Narrative* Problem Noted Date Resolved Date Nonspecific abnormal results of liver function s dy 03/03/2008 04/09/2015 documented as of this encounter (statuses as of 12/10/2021) [facility] Narrative* Problem Noted Date Resolved Date Nonspecific abnormal results of liver function s dy 03/03/2008 04/09/2015 documented as of this encounter (statuses as of 12/10/2021) [facility] Narrative* Problem Noted Date Resolved Date Nonspecific abnormal results of liver function s dy 03/03/2008 04/09/2015 documented as of this encounter (statuses as of 12/24/2021) [facility] Narrative* Problem Noted Date Resolved Date Nonspecific abnormal results of liver function s dy 03/03/2008 04/09/2015 documented as of this encounter (statuses as of 12/24/2021) [facility] Narrative* Problem Noted Date Resolved Date Nonspecific abnormal results of liver function s dy 03/03/2008 04/09/2015 documented as of this encounter (statuses as of 12/27/2021) [place] [address]-07-2008 History of Past illness Narrative* Problem Noted Date Resolved Date Nonspecific abnormal results of liver function s tudy 03/03/2008 04/09/2015 documented as of this encounter (statuses as of 12/27/2021) [facility] Narrative* Problem Noted Date Resolved Date Nonspecific abnormal results of liver function s dy 03/03/2008 04/09/2015 documented as of this encounter (statuses as of 01/03/2022) [facility] Narrative* Problem Noted Date Resolved Date Nonspecific abnormal results of liver function s dy 03/03/2008 04/09/2015 documented as of this encounter (statuses as of 01/13/2022) [facility] Narrative* Problem Noted Date Resolved Date Nonspecific abnormal results of liver function s dy 03/03/2008 04/09/2015 documented as of this encounter (statuses as of 01/14/2022) [facility] Narrative* Problem Noted Date Resolved Date Nonspecific abnormal results of liver function s dy 03/03/2008 04/09/2015 documented as of this encounter (statuses as of 01/18/2022) [facility] Narrative* Problem Noted Date Resolved Date Nonspecific abnormal results of liver function s dy 03/03/2008 04/09/2015 documented as of this encounter (statuses as of 02/02/2022) [facility] Narrative* Problem Noted Date Resolved Date Nonspecific abnormal results of liver function s dy 03/03/2008 04/09/2015 documented as of this encounter (statuses as of 02/02/2022) [facility] Narrative* Problem Noted Date Resolved Date Nonspecific abnormal results of liver function s dy 03/03/2008 04/09/2015 documented as of this encounter (statuses as of 02/03/2022) [facility] Narrative* Problem Noted Date Resolved Date Nonspecific abnormal results of liver function s dy 03/03/2008 04/09/2015 documented as of this encounter (statuses as of 02/08/2022) [facility] History of Past illness Narrative* Problem Noted Date Resolved Date Nonspecific abnormal results of liver function s dy 03/03/2008 04/09/2015 documented as of this encounter (statuses as of 02/09/2022) [facility] History of Past illness Narrative* Problem Noted Date Resolved Date Nonspecific abnormal results of liver function s dy 03/03/2008 04/09/2015 documented as of this encounter (statuses as of 02/10/2022) [address]07-2008 History of Past illness Narrative* Problem Noted Date Resolved Date Nonspecific abnormal results of liver function s dy 03/03/2008 04/09/2015 documented as of this encounter (statuses as of 02/14/2022) [facility] History of Past illness Narrative* Problem Noted Date Resolved Date Nonspecific abnormal results of liver function s dy 03/03/2008 04/09/2015 documented as of this encounter (statuses as of 02/15/2022) [facility] History of Past illness Narrative* Problem Noted Date Resolved Date Nonspecific abnormal results of liver function s dy 03/03/2008 04/09/2015 documented as of this encounter (statuses as of 02/15/2022) [facility] History of Past illness Narrative* Problem Noted Date Resolved Date Nonspecific abnormal results of liver function s dy 03/03/2008 04/09/2015 documented as of this encounter (statuses as of 03/01/2022) [facility] History of Past illness Narrative* Problem Noted Date Resolved Date Nonspecific abnormal results of liver function s dy 03/03/2008 04/09/2015 documented as of this encounter (statuses as of 03/02/2022) [facility] History of Past illness Narrative* Problem Noted Date Resolved Date Nonspecific abnormal results of liver function s dy 03/03/2008 04/09/2015 documented as of this encounter (statuses as of 03/15/2022) [facility] History of Past illness Narrative* Problem Noted Date Resolved Date Nonspecific abnormal results of liver function s dy 03/03/2008 04/09/2015 documented as of this encounter (statuses as of 03/16/2022) [facility] History of Past illness Narrative* Problem Noted Date Resolved Date Nonspecific abnormal results of liver function s tudy 03/03/2008 04/09/2015 documented as of this encounter (statuses as of 03/24/2022) [facility] History of Past illness Narrative* Problem Noted Date Resolved Date Nonspecific abnormal results of liver function s tudy 03/03/2008 04/09/2015 documented as of this encounter (statuses as of 03/31/2022) [facility] History of Past illness Narrative* Problem Noted Date Resolved Date Nonspecific abnormal results of liver function s tudy 03/03/2008 04/09/2015 documented as of this encounter (statuses as of 03/31/2022) [facility] History of Past illness Narrative* Problem Noted Date Resolved Date Nonspecific abnormal results of liver function s dy 03/03/2008 04/09/2015 documented as of this encounter (statuses as of 03/31/2022) [facility] History of Past illness Narrative* Problem Noted Date Resolved Date Nonspecific abnormal results of liver function s dy 03/03/2008 04/09/2015 documented as of this encounter (statuses as of 04/04/2022) [facility] History of Past illness Narrative* Problem Noted Date Resolved Date Nonspecific abnormal results of liver function s dy 03/03/2008 04/09/2015 documented as of this encounter (statuses as of 04/05/2022) [facility] History of Past illness Narrative* Problem Noted Date Resolved Date Nonspecific abnormal results of liver function s dy 03/03/2008 04/09/2015 documented as of this encounter (statuses as of 04/12/2022) [address]07-2008 History of Past illness Narrative* Problem Noted Date Resolved Date Nonspecific abnormal results of liver function s dy 03/03/2008 04/09/2015 documented as of this encounter (statuses as of 04/14/2022) [facility] History of Past illness Narrative* Problem Noted Date Resolved Date Nonspecific abnormal results of liver function s dy 03/03/2008 04/09/2015 documented as of this encounter (statuses as of 04/18/2022) [facility] History of Past illness Narrative* Problem Noted Date Resolved Date Nonspecific abnormal results of liver function s dy 03/03/2008 04/09/2015 documented as of this encounter (statuses as of 04/19/2022) [facility] History of Past illness Narrative* Problem Noted Date Resolved Date Nonspecific abnormal results of liver function s tudy 03/03/2008 04/09/2015 documented as of this encounter (statuses as of 04/20/2022) [facility] History of Past illness Narrative* Problem Noted Date Resolved Date Nonspecific abnormal results of liver function s dy 03/03/2008 04/09/2015 documented as of this encounter (statuses as of 04/20/2022) [facility] History of Past illness Narrative* Problem Noted Date Resolved Date Nonspecific abnormal results of liver function s dy 03/03/2008 04/09/2015 documented as of this encounter (statuses as of 04/20/2022) [facility] History of Past illness Narrative* Problem Noted Date Resolved Date Nonspecific abnormal results of liver function s dy 03/03/2008 04/09/2015 documented as of this encounter (statuses as of 04/21/2022) [facility] History of Past illness Narrative* Problem Noted Date Resolved Date Nonspecific abnormal results of liver function s dy 03/03/2008 04/09/2015 documented as of this encounter (statuses as of 04/27/2022) [facility] History of Past illness Narrative* Problem Noted Date Resolved Date Nonspecific abnormal results of liver function s dy 03/03/2008 04/09/2015 documented as of this encounter (statuses as of 06/02/2022) [facility] History of Past illness Narrative* Problem Noted Date Resolved Date Nonspecific abnormal results of liver function s dy 03/03/2008 04/09/2015 documented as of this encounter (statuses as of 06/02/2022) [facility] History of Past illness Narrative* Problem Noted Date Resolved Date Nonspecific abnormal results of liver function s dy 03/03/2008 04/09/2015 documented as of this encounter (statuses as of 06/03/2022) [facility] History of Past illness Narrative* Problem Noted Date Resolved Date Nonspecific abnormal results of liver function s dy 03/03/2008 04/09/2015 documented as of this encounter (statuses as of 2022) [facility] History of Past illness Narrative* Problem Noted Date Resolved Date Nonspecific abnormal results of liver function s dy 03/03/2008 04/09/2015 documented as of this encounter (statuses as of 07/12/2022) [facility] History of Past illness Narrative* Problem Noted Date Resolved Date Nonspecific abnormal results of liver function s dy 03/03/2008 04/09/2015 documented as of this encounter (statuses as of 07/12/2022) [facility] History of Past illness Narrative* Problem Noted Date Resolved Date Nonspecific abnormal results of liver function s dy 03/03/2008 04/09/2015 documented as of this encounter (statuses as of 07/12/2022) [facility] History of Past illness Narrative* Problem Noted Date Resolved Date Nonspecific abnormal results of liver function s dy 03/03/2008 04/09/2015 documented as of this encounter (statuses as of 08/15/2022) [facility] History of Past illness Narrative* Problem Noted Date Resolved Date Nonspecific abnormal results of liver function s dy 03/03/2008 04/09/2015 documented as of this encounter (statuses as of 09/22/2022) [facility] History of Past illness Narrative* Problem Noted Date Resolved Date Nonspecific abnormal results of liver function s dy 03/03/2008 04/09/2015 documented as of this encounter (statuses as of 10/10/2022) [facility] History of Past illness Narrative* Problem Noted Date Resolved Date Nonspecific abnormal results of liver function s dy 03/03/2008 04/09/2015 documented as of this encounter (statuses as of 10/11/2022) [facility] History of Past illness Narrative* Problem Noted Date Resolved Date Nonspecific abnormal results of liver function s dy 03/03/2008 04/09/2015 documented as of this encounter (statuses as of 11/08/2022) [facility] History of Past illness Narrative* Problem Noted Date Resolved Date Nonspecific abnormal results of liver function s tyshawn 03/03/2008 04/09/2015 documented as of this encounter (statuses as of 01/01/2023) [address]07-2008 History of Past illness Narrative* Problem Noted Date Resolved Date Nonspecific abnormal results of liver function s tyshawn 03/03/2008 04/09/2015 documented as of this encounter (statuses as of 01/09/2023) [address]07-2008 History of Past illness Narrative* Problem Noted Date Resolved Date Nonspecific abnormal results of liver function s tyshawn 03/03/2008 04/09/2015 documented as of this encounter (statuses as of 01/09/2023) [address]07-2008 History of Past illness Narrative* Problem Noted Date Resolved Date Nonspecific abnormal results of liver function s monica 03/03/2008 04/09/2015 documented as of this encounter (statuses as of 02/27/2023) [address]07-2008 History of Past illness Narrative* Problem Noted Date Diagnosed Date Resolved Date Nonspecific abnormal results of liver function study 03/03/2008 04/09/2015 documented as of this encounter (statuses as of 10/27/2023) [facility]* An interactive [...] and not being allowed to take NSAIDS. -[facility] Work Phone: discharge summary Author Dr. Sutton [facility] November 15, 2022 1:42pm Note Date/Time November 15, 2022 12: 03pm [facility] Medical Records Department [address] [place] [address] Emergency Department Summary 11/15/22 MR#: [id number] Acct: [id number] Name: SOFYACURLY J Rep #:[id number] : 1985 37 From: Aftab Sutton MD [...] has been moving recently unpacking and lifting. [facility] Medical History Hxqej-6-aibnljncsgo deficiency Ankylosing spondylitis Anxiety Arthritis Back problem [...] % (Auto) 66.2 Lymph % (Auto) 24.8 [place] % (Auto) 7.0 Eos % (Auto) 1.7 [...] Primary Care Provider: Vargas Mujica Referrals: Vargas Mujica PA [Primary Care Provider] - 3-5 Days Disposition Disposition: Home, Self Care What to do if you have Problems For any increased pain, shortness of breath, bleeding, nausea or vomiting, chestpain, or any unexpected problems, contact your Primary Care Provider. Call [facility] ([phone]) or report to the closest Emergency Room. Call 911 if necessary. 11/15/22 1342 <Electronically signed by Aftab Sutton MD> Cosigner Signature (if applicable): CC: JUNE Mujica ~ Signed [facility] Work Phone: Evaluation + Plan note No data available for this section [facility]* Diagnosis Class 3 severe obesity due to excess calories with serious comorbidity and body mass index (BMI) of 60.0 to 69.9 in adult (HCC) [facility] Diagnosis Class 3 severe obesity due to excess calories with serious comorbidity and body mass index (BMI) of 60.0 to 69.9 in adult (HCC)- Primary V-tach (HCC) Paroxysmal ventricular tachycardia COVID-19 long hauler Elevated liver enzymes Other nonspecific abnormal serum enzyme levels Zyczb-8-humolqngvot deficiency (HCC) Khjxg-0-cdcdsgqidqz deficiency Gastroesophageal reflux disease without esophagitis Esophageal reflux [facility] Diagnosis Thiamine deficiency Other and unspecified manifestations of thiamine deficiency [facility] Diagnosis Thiamine deficiency Other and unspecified manifestations of thiamine deficiency [facility] Diagnosis Class 3 severe obesity due to excess calories with serious comorbidity and body mass index (BMI) of 60.0 to 69.9 in adult (HCC)- Primary Elevated liver enzymes Other nonspecific abnormal serum enzyme levels Hepatomegaly V-tach (HCC) Paroxysmal ventricular tachycardia COVID-19 long hauler Gastroesophageal reflux disease without esophagitis Esophageal reflux [facility] Diagnosis Class 3 severe obesity due to excess calories with serious comorbidity and body mass index (BMI) of 60.0 to 69.9 in adult (HCC)- Primary [facility] Diagnosis Dyspnea and respiratory abnormalities- Primary Other dyspnea and respiratory abnormality Shortness of breath [facility] Diagnosis Fatty liver- Primary Other chronic nonalcoholic liver disease Increased liver enzymes Other nonspecific abnormal serum enzyme levels Morbid obesity (HCC) Morbid obesity [facility] Diagnosis Class 3 severe obesity due to excess calories with serious comorbidity and body mass index (BMI) of 60.0 to 69.9 in adult (HCC)- Primary Elevated liver enzymes Other nonspecific abnormal serum enzyme levels COVID-19 long hauler Hepatomegaly [facility] Diagnosis Dyspnea and respiratory abnormalities Other dyspnea and respiratory abnormality [facility] Dyspnea and respiratory abnormalities Other dyspnea and respiratory abnormality [facility] Diagnosis Fatty liver Other chronic nonalcoholic liver disease Increased liver enzymes Other nonspecific abnormal serum enzyme levels [facility] Diagnosis TORRES (nonalcoholic steatohepatitis)- Primary Other chronic nonalcoholic liver disease Increased liver enzymes Other nonspecific abnormal serum enzyme levels [facility] Diagnosis Class 3 severe obesity due to excess calories with serious comorbidity and body mass index (BMI) of 60.0 to 69.9 in adult (HCC)- Primary Elevated liver enzymes Other nonspecific abnormal serum enzyme levels COVID-19 long hauler BRISEYDA (obstructive sleep apnea) Obstructive sleep apnea (adult) (pediatric) [facility] Diagnosis Dietary counseling and surveillance Dietary surveillance and counseling [facility] Diagnosis Morbid obesity (HCC)- Primary Morbid obesity [facility] Diagnosis Class 3 severe obesity due to excess calories with serious comorbidity and body mass index (BMI) of 60.0 to 69.9 in adult (HCC)- Primary Morbid obesity (HCC) Morbid obesity [facility] Diagnosis Class 3 severe obesity due to excess calories with serious comorbidity and body mass index (BMI) of 60.0 to 69.9 in adult (HCC)- Primary History of DVT (deep vein thrombosis) Personal history of venous thrombosis and embolism AAT (gasmr-4-reflmvjhdqu) deficiency (HCC) Iprlv-0-jgiyakcrkko deficiency BRISEYDA (obstructive sleep apnea) Obstructive sleep apnea (adult) (pediatric) NAFLD (nonalcoholic fatty liver disease) Other chronic nonalcoholic liver disease Heartburn Morbid obesity (HCC) Morbid obesity [facility] Diagnosis Class 3 severe obesity due to excess calories with serious comorbidity and body mass index (BMI) of 60.0 to 69.9 in adult (HCC)- Primary History of DVT (deep vein thrombosis) Personal history of venous thrombosis and embolism Elevated liver enzymes Other nonspecific abnormal serum enzyme levels Morbid obesity (HCC) Morbid obesity [facility] Diagnosis Thrombocytopenia (HCC)- Primary Thrombocytopenia, unspecified Morbid obesity (HCC) Morbid obesity [facility] S/P laparoscopic sleeve gastrectomy- Primary Bariatric surgery status Right sided abdominal pain Abdominal pain, unspecified site Hepatic fibrosis Cirrhosis 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 mention of alcohol History of DVT (deep vein thrombosis) Personal history of venous thrombosis and embolism S/P laparoscopic sleeve gastrectomy Bariatric surgery status Right sided abdominal pain Abdominal pain, unspecified site documented in this encounter [facility] note* Diagnosis S/P laparoscopic sleeve gastrectomy Bariatric surgery status Right sided abdominal pain Abdominal pain, unspecified site [facility] Diagnosis Dietary counseling and surveillance [Z71.3 (ICD-10-CM)]- Primary Dietary surveillance and counseling documented in this encounter [facility] note* Diagnosis Class 3 severe obesity due to excess calories with serious comorbidity and body mass index (BMI) of 60.0 to 69.9 in adult (HCC) documented in this encounter [facility] note* Diagnosis S/P laparoscopic sleeve gastrectomy- Primary Bariatric surgery status [facility] Diagnosis Dietary counseling and surveillance [Z71.3 (ICD-10-CM)]- Primary Dietary surveillance and counseling documented in this encounter [facility] note* Diagnosis Hepatic fibrosis- Primary Cirrhosis 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 mention of alcohol [facility] Diagnosis S/P laparoscopic sleeve gastrectomy- Primary Bariatric surgery status Elevated liver enzymes Other nonspecific abnormal serum enzyme levels documented in this encounter [facility] note* Diagnosis Dietary counseling and surveillance [Z71.3 (ICD-10-CM)]- Primary Dietary surveillance and counseling documented in this encounter [facility] noteNo assessment information availableWOhio[facility] Work Phone: Evaluation note* Diagnosis Acute cough- Primary URI, acute Acute upper respiratory infections of unspecified site Rhinosinusitis Unspecified sinusitis (chronic) documented in this encounter [facility] note* Diagnosis S/P laparoscopic sleeve gastrectomy- Primary Bariatric surgery status documented in this encounter [facility] note* Diagnosis Increased PTH level- Primary Unspecified endocrine disorder [facility]* Diagnosis Foot pain, right- Primary Pain in limb [facility]* Diagnosis Dizziness- Primary Dizziness and giddiness Bilateral impacted cerumen Impacted cerumen [facility]* Diagnosis Dizzy- Primary Dizziness and giddiness [facility]* Diagnosis Generalized anxiety disorder- Primary Anxiety [...] 59.9 in adult (CMS/[facility]) Depression, major, single episode, moderate (CMS/HCC) documented in this encounter [facility] Work Phone: Evaluation note* Diagnosis Major [...] episode, moderate (CMS/HCC) Generalized anxiety disorder AAT (nwlwo-0-txreacgivet) deficiency ([facility]) Pdsiw-6-urrbgcihipa deficiency Encounter for screening mammogram for breast cancer Class 3 severe obesity due to excess calories with serious comorbidity and body mass index (BMI) of 50.0 to 59.9 in adult ([facility]) documented in this encounter [facility] Work Phone: Evaluation note* Diagnosis URI, acute- Primary Acute upper respiratory infections of unspecified site Acute cough Acute cough [facility] Diagnosis Acute cough [facility]* Diagnosis Acute cough [facility]* Diagnosis Foot pain, right Pain in limb [facility]* Diagnosis Class 3 severe obesity with body mass index (BMI) of 50.0 to 59.9 in adult, unspecified obesity type, unspecified whether serious comorbidity present (HCC) [facility] Foot pain, left- Primary Pain in limb Injury of left foot, initial encounter Foot pain, left Pain in limb Injury of left foot, initial encounter [facility] Diagnosis Foot pain, left Pain in limb Injury of left foot, initial encounter [facility]* Diagnosis Cervicalgia- Primary Anxiety Anxiety state, [...] status Medication management documented in this encounter [facility] Work Phone: Evaluation note* Diagnosis Chronic midline low back pain with sciatica, sciatica laterality unspecified documented in this encounter [facility] Work Phone: Evaluation note* Diagnosis Cervicalgia documented in this encounter [facility] Work Phone: Evaluation note* Diagnosis Major [...] sites Medication management documented in this encounter [facility] Work Phone: Evaluation note* Diagnosis Acute [...] Depression, major, single episode, moderate (Multi) AAT (zwhwe-1-jkxurfsxyha) deficiency (Multi) Qcuzr-3-tacjwnnuslm deficiency Encounter for dietary counseling and surveillance Fatty liver disease, nonalcoholic documented in this encounter [facility] Work Phone: Evaluation note* Diagnosis Sinus bradycardia- Primary Other specified cardiac dysrhythmias Encounter for screening for cardiovascular disorders Screening for other and unspecified cardiovascular conditions Chest pain, unspecified type Wide-complex tachycardia Paroxysmal ventricular tachycardia BMI 50.0-59.9, adult ([facility]) Body Mass Index 50.0-59.9, adult [facility] Diagnosis Fatigue, unspecified type- Primary Anxiety Anxiety state, unspecified Medication management Palpitations H/O cardiac radiofrequency ablation 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 Class 3 severe obesity due to excess calories with serious comorbidity and body mass index (BMI) of 50.0 to 59.9 in adult ([facility]-HCC) Fatty liver disease, nonalcoholic Depression, major, single episode, moderate (Multi) Generalized anxiety disorder Insomnia secondary to depression with anxiety documented in this encounter [facility] Work Phone: History of Present illness [...] * 2 morbid obese * 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 * She has had [...] of the last Controlled Substance Agreement: 05/25/2021 -[facility] Work Phone: History of [...] of the last Controlled Substance Agreement: 05/25/2021 -[facility] Work Phone: Reason for referral (narrative)* Outpatient Procedure (Routine) - Pending Review Specialty Diagnoses / Procedures Referred By Donna longoria Referred To [facility] Diagnoses Dyspnea and respiratory abnormalities Procedures LUNG VOLUMES Hung Emerson MD [address] [place] [address] [facility] [address] [place] [id number] Referral ID Status Reason Start Date Expiration Date Visits Requested Visits Authorized [id number] Pending Review Auto-Generat ed Referral 01/03/2022 02/02/2023 1 1 * Outpatient Procedure (Routine) - Pending Review Specialty Diagnoses / Procedures Referred By Donna longoria Referred To [facility] Diagnoses Dyspnea and respiratory abnormalities Procedures LUNG DIFFUSION CAPACITY (DLCO) DIFFUSING CAPACITY Hung Emerson MD [address] [place] [id number] [facility] [address] [place], [place] [id number] Referral ID Status Reason Start Date Expiration Date Visits Requested Visits Authorized [id number] Pending Review Auto-Generat ed Referral 01/03/2022 02/02/2023 1 1 * Outpatient Procedure (Routine) - Pending Review Specialty Diagnoses / Procedures Referred By Contac t Referred To Contact [facility] Diagnoses Dyspnea and respiratory abnormalities Procedures SPIROMETRY - BASELINE AND POST DILATOR BRNCDILAT RSPSE SPMTRY PRE&POST-BRNCDILAT ADMN Hung Emerson MD [address] [place] [id number] [facility] [address] [place] [address] Referral ID Status Reason Start Date Expiration Date Visits Requested Visits Authorized [id number] Pending Review Auto-Generat ed Referral 01/03/2022 02/02/2023 1 1 * MRI/CT (Routine) - Pending Review Specialty Diagnoses / Procedures Referred By Contac t Referred To Contact CT IMAGING Diagnoses Shortness of breath Procedures CT CHEST WO IVCON DIAGNOSTIC COMPUTED TOMOGRAPHY THORAX W/O CNTRST Hung Emerson MD [address] [place] [address] [address] [address] Imaging Referral ID Status Reason Start Date Expiration Date Visits Requested Visits Authorized [id number] Pending Review Auto-Generat ed Referral 01/03/2022 02/02/2023 [address] [facility] for referral (narrative)* Diagnostic Procedure Only (Routine) - Authorized Specialty Diagnoses / Procedures Referred By Contac t Referred To Contact US IMAGING Diagnoses Fatty liver Increased liver enzymes Procedures US ABDOMEN COMPLETE US ABDOMINAL REAL TIME W/IMAGE DOCUMENTATION Brooks Soto MD [facility] [address] [address] [place] [address] Us Imaging Referral ID Status Reason Start Date Expiration Date Visits Requested Visits Authorized [id number] Authorized Auto-Generat ed Referral 01/13/2022 02/12/2023 [address] [facility] for referral (narrative)* Diagnostic Procedure Only (Routine) - Closed Specialty Diagnoses / Procedures Referred By Contac t Referred To Contact US IMAGING Diagnoses Fatty liver Increased liver enzymes Procedures US ABDOMEN COMPLETE US ABDOMINAL REAL TIME W/IMAGE DOCUMENTATION Brooks Soto MD [address] [place] [address] Us Imaging Referral ID Status Reason Start Date Expiration Date V isits Requested Visits Authorized [id number] Closed Auto-Generate d Referral 01/13/2022 02/12/2023 [address] [facility] for referral (narrative)* Diagnostic Procedure Only (Urgent) - Closed Specialty Diagnoses / Procedures Referred By Contac t Referred To Contact XR IMAGING Diagnoses Foot pain, right Procedures XR FOOT GENERAL 3V AP/LAT/OBL RIGHT RADEX FOOT COMPLETE MINIMUM 3 VIEWS [facility] [address] [place] [address] Xr Imaging Referral ID Status Reason Start Date Expiration Date V isits Requested Visits Authorized [id number] Closed Auto-Generate d Referral 11/08/2022 12/08/2023 [address] [facility] for referral (narrative)* Diagnostic Procedure Only (Urgent) - Closed Specialty Diagnoses / Procedures Referred By Contac t Referred To Contact XR IMAGING Diagnoses Foot pain, right Procedures XR FOOT GENERAL 3V AP/LAT/OBL RIGHT RADEX FOOT COMPLETE MINIMUM 3 VIEWS [facility] [address] [place] [address] [place] [address] Referral ID Status Reason Start Date Expiration Date V isits Requested Visits Authorized [id number] Closed Auto-Generate d Referral 11/08/2022 12/08/2023 [address] [facility] for referral (narrative)* Diagnostic Procedure Only (Urgent) - Closed Specialty Diagnoses / Procedures Referred By Contac t Referred To Contact XR IMAGING Diagnoses Foot pain, left Injury of left foot, initial encounter Procedures XR FOOT GENERAL 3V AP/LAT/OBL LEFT RADEX FOOT COMPLETE MINIMUM 3 VIEWS Kamilla Coon APRN.CURTAIN [employer]ER [employer]ST[employer] [address] [place] [address] [place] [address] Referral ID Status Reason Start Date Expiration Date V isits Requested Visits Authorized [id number] Closed Auto-Generate d Referral 06/07/2024 07/07/2025 [address] [facility] for referral (narrative)* Diagnostic Procedure Only (Urgent) - Closed Specialty Diagnoses / Procedures Referred By Contac t Referred To Contact XR IMAGING Diagnoses Foot pain, left Injury of left foot, initial encounter Procedures XR FOOT GENERAL 3V AP/LAT/OBL LEFT RADEX FOOT COMPLETE MINIMUM 3 VIEWS Kamilla Coon APRN.[employer] [address] [place] [address] [place] [address] Referral ID Status Reason Start Date Expiration Date V isits Requested Visits Authorized [id number] Closed Auto-Generate d Referral 06/07/2024 07/07/2025 [address] [facility] for visit Narrative* Diagnostic Procedure Only (Routine) - Closed Specialty Diagnoses / Procedures Referred By Contac t Referred To Contact US IMAGING Diagnoses Fatty liver Increased liver enzymes Procedures US ABDOMEN COMPLETE US ABDOMINAL REAL TIME W/IMAGE DOCUMENTATION Brooks Soto MD [address] [address] Us Imaging Referral ID Status Reason Start Date Expiration Date V isits Requested Visits Authorized [id number] Closed Auto-Generate d Referral 01/13/2022 02/12/2023 [address] [facility] for visit Narrative* Diagnostic Procedure Only (Urgent) - Closed Specialty Diagnoses / Procedures Referred By Contac t Referred To Contact XR IMAGING Diagnoses Foot pain, right Procedures XR FOOT GENERAL 3V AP/LAT/OBL RIGHT RADEX FOOT COMPLETE MINIMUM 3 VIEWS [facility] [address] [place] [address] [place] [address] Referral ID Status Reason Start Date Expiration Date V isits Requested Visits Authorized [id number] Closed Auto-Generate d Referral 11/08/2022 12/08/2023 [address] [facility] for visit Narrative* Diagnostic Procedure Only (Urgent) - Closed Specialty Diagnoses / Procedures Referred By Contac t Referred To Contact XR IMAGING Diagnoses Foot pain, left Injury of left foot, initial encounter Procedures XR FOOT GENERAL 3V AP/LAT/OBL LEFT RADEX FOOT COMPLETE MINIMUM 3 VIEWS Kamilla Coon, PIT FURNACE MELTER.CURTAIN [employer]LL[employer] BL[employer]STITCH [address] [place] [address] [place] [address] Referral ID Status Reason Start Date Expiration Date V isits Requested Visits Authorized [id number] Closed Auto-Generate d Referral 06/07/2024 07/07/2025 [address] [facility] for visit Narrative* Imaging (Routine) - Authorized Specialty Diagnoses / Procedures Referred By Contac t Referred To Contact Radiology Diagnoses Chronic midline low back pain with sciatica, sciatica laterality unspecified Procedures XR lumbar spine 2-3 views Vargas Mujica, CARLC [address] [facility] [place] [address] Phone: tel: fax: Referral ID Status Reason Start Date Expiration Date Visits Requested Visits Authorized [id number] Authorized Perform Procedure 07/11/2025 1 1 [facility] Work Phone: Summary Purpose Family History [...] FoundDocuments on File Type Date Recorded 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 Advance Directive(s) 05/20/2021 10:22 AM Advance Directive(s) 03/18/2021 1:41 PM Advance Directive(s) 09/21/2018 4:36 PM Advance Directive(s) 09/20/2018 11:48 AM Latest Code Status on File Code Status Date Activated Date Inactivated Comments Full Code 09/21/2018 5:42 PM 09/26/2018 4:27 PM Full Code Order Discussed With: Patient Full Code 09/18/2018 6:09 PM 09/20/2018 6:11 PM Documents on File Type Date Recorded 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 Advance Directive(s) 05/20/2021 10:22 AM Advance Directive(s) 03/18/2021 1:41 PM Advance Directive(s) 09/21/2018 4:36 PM Advance Directive(s) 09/20/2018 11:48 AM Latest Code Status on File Code Status Date Activated Date Inactivated Comments Full Code 09/21/2018 5:42 PM 09/26/2018 4:27 PM Full Code 09/18/2018 6:09 PM 09/20/2018 6:11 PM Advance Directive Response Recorded Date/ Time Living Will No August 17 8:27am Power of Cyanide Pot Tender No August 17, 2022 8:27am Advance Directive Response Recorded Date/ Time Living Will No November 15, 2022 1:50pm Power of Cyanide Pot Tender No November 15 1:50pm Advance Directive Response Recorded Date/ Time Living Will No January 05, 2023 7 :26am Power of Cyanide Pot Tender No January 05, 2023 7:26am Advance Directive Response Recorded Date/ Time Living Will No October 19, 2 024 9:13am Power of Cyanide Pot Tender No October 19, 2023 9:13am Latest Code [...] enzymes Hepatomegaly Procedures CONSULT TO GASTROENTEROLOGY OFFICE/OUTPATIENT [facility] MDM 60-74 MINUTES Dee Dee Soliman, PIT FURNACE MELTER.CURTAIN FELLER BLINDSTITCH [address] [place] [address] Referral ID Status Reason Start Date Expiration Date Visits Requested Visits Authorized [id number] Authorized PCP Requested Referral 12/24/2021 03/24/2022 1 1 Specialty Diagnoses / Procedures Referred By Donna longoria Referred To Contact CT IMAGING Diagnoses S/P laparoscopic sleeve gastrectomy Right sided abdominal pain Procedures CT ABD/PEL W IVCON CT ABD & PELVIS W/CONTRAST Marjan Eddy, PIT FURNACE MELTER.CURTAIN [employer] BL[employer]STITCH [address] [place] [address] Ct Imaging Referral ID Status Reason Start Date Expiration Date Visits Requested Visits Authorized [id number] Pending Review Patient Cleared - Admin/Chair man/Directo r advise to proceed 04/19/2022 05/19/2023 2 2 Specialty Diagnoses / Procedures Referred By Contac t Referred To Contact Radiology Diagnoses Encounter for screening mammogram for breast cancer Procedures BI mammo bilateral screening tomosynthesis Vargas Mujica PA-C [address] [place] [address] Referral ID Status Reason Start Date Expiration Date Visits Requested Visits Authorized [id number] Authorized Perform Procedure 09/25/2023 09/24/2024 1 1 Specialty Diagnoses / Procedures Referred By Contac t Referred To Contact Radiology Diagnoses Generalized anxiety disorder Procedures BI mammo bilateral screening tomosynthesis Vargas Mujica PA-C [address] [place] [address] Referral ID Status Reason Start Date Expiration Date Visits Requested Visits Authorized [id number] Authorized Perform Procedure 02/28/2024 02/27/2025 1 1 Chief Complaint and Reason for Visit Chief Complaint chest pain Chief Complaint chest pain PE/NON DOT/DRUG SCREEN/PRC CHEST PAIN Chief Complaint PE/NON DOT/DRUG SCRE EN/PRC CHEST PAIN cp Chief Complaint CHEST PAIN/WEAKNESS head pain Additional Source Comments INFORMATION SOURCE (unrecogn ized section and content) DATE CREATED AUTHOR 10/08/2018 [facility] DATE CREATED AUTHOR AUTHOR'S ORGANIZ ATION 02/20/2019 [facility] DATE CREATED AUTHOR AUTHOR'S ORGANIZ ATION 07/13/2020 [facility] DATE CREATED AUTHOR AUTHOR'S ORGANIZ ATION 10/17/2022 [facility] DATE CREATED AUTHOR AUTHOR'S ORGANIZ ATION 10/18/2022 [employer] DATE CREATED AUTHOR AUTHOR'S ORGANIZ ATION 02/14/2023 [facility] DATE CREATED AUTHOR AUTHOR'S ORGANIZ ATION 07/16/2024 [facility] DATE CREATED AUTHOR AUTHOR'S ORGANIZ ATION 07/16/2024 [facility] DATE CREATED AUTHOR AUTHOR'S ORGANIZ ATION 02/13/2025 [facility] DATE CREATED AUTHOR AUTHOR'S ORGANIZ ATION 06/07/2025 [facility] DATE CREATED AUTHOR AUTHOR'S ORGANIZ ATION 06/12/2025 [facility] DATE CREATED AUTHOR AUTHOR'S ORGANIZ ATION 06/14/2025 [facility] Source Comments (unrecognize d section and content) In the event this informatio n is protected by the Federal Confidentiality of Alcohol and Drug Abuse Patient Records regulations: The Federal rules restrict any use of the information to criminally investigate or prosecute any alcohol or drug abuse patient.[facility] the event this information is protected by the Federal Confidentiality of Alcohol and Drug Abuse Patient Records regulations: The Federal rules restrict any use of the information to criminally investigate or prosecute any alcohol or drug abuse patient.[facility] the event this information is protected by the Federal Confidentiality of Alcohol and Drug Abuse Patient Records regulations: The Federal rules restrict any use of the information to criminally investigate or prosecute any alcohol or drug abuse patient.[facility] the event this information is protected by the Federal Confidentiality of Alcohol and Drug Abuse Patient Records regulations: The Federal rules restrict any use of the information to criminally investigate or prosecute any alcohol or drug abuse patient.[facility] the event this information is protected by the Federal Confidentiality of Alcohol and Drug Abuse Patient Records regulations: The Federal rules restrict any use of the information to criminally investigate or prosecute any alcohol or drug abuse patient.[facility] the event this information is protected by the Federal Confidentiality of Alcohol and Drug Abuse Patient Records regulations: The Federal rules restrict any use of the information to criminally investigate or prosecute any alcohol or drug abuse patient.[facility] Hospital[facility] the event this information is protected by the Federal Confidentiality of Alcohol and Drug Abuse Patient Records regulations: The Federal rules restrict any use of the information to criminally investigate or prosecute any alcohol or drug abuse patient.[facility] Hospital[facility] the event this information is protected by the Federal Confidentiality of Alcohol and Drug Abuse Patient Records regulations: The Federal rules restrict any use of the information to criminally investigate or prosecute any alcohol or drug abuse patient.[facility] the event this information is protected by the Federal Confidentiality of Alcohol and Drug Abuse Patient Records regulations: The Federal rules restrict any use of the information to criminally investigate or prosecute any alcohol or drug abuse patient.[facility] the event this information is protected by the Federal Confidentiality of Alcohol and Drug Abuse Patient Records regulations: The Federal rules restrict any use of the information to criminally investigate or prosecute any alcohol or drug abuse patient.[facility] HospitalIn the event this information is protected by the Federal Confidentiality of Alcohol and Drug Abuse Patient Records regulations: The Federal rules restrict any use of the information to criminally investigate or prosecute any alcohol or drug abuse patient.[facility] HospitalIn the event this information is protected by the Federal Confidentiality of Alcohol and Drug Abuse Patient Records regulations: The Federal rules restrict any use of the information to criminally investigate or prosecute any alcohol or drug abuse patient.[facility] HospitalIn the event this information is protected by the Federal Confidentiality of Alcohol and Drug Abuse Patient Records regulations: The Federal rules restrict any use of the information to criminally investigate or prosecute any alcohol or drug abuse patient.[facility] HospitalIn the event this information is protected by the Federal Confidentiality of Alcohol and Drug Abuse Patient Records regulations: The Federal rules restrict any use of the information to criminally investigate or prosecute any alcohol or drug abuse patient.[facility] HospitalIn the event this information is protected by the Federal Confidentiality of Alcohol and Drug Abuse Patient Records regulations: The Federal rules restrict any use of the information to criminally investigate or prosecute any alcohol or drug abuse patient.[facility] HospitalIn the event this information is protected by the Federal Confidentiality of Alcohol and Drug Abuse Patient Records regulations: The Federal rules restrict any use of the information to criminally investigate or prosecute any alcohol or drug abuse patient.[facility] HospitalIn the event this information is protected by the Federal Confidentiality of Alcohol and Drug Abuse Patient Records regulations: The Federal rules restrict any use of the information to criminally investigate or prosecute any alcohol or drug abuse patient.[facility] HospitalIn the event this information is protected by the Federal Confidentiality of Alcohol and Drug Abuse Patient Records regulations: The Federal rules restrict any use of the information to criminally investigate or prosecute any alcohol or drug abuse patient.[facility] HospitalIn the event this information is protected by the Federal Confidentiality of Alcohol and Drug Abuse Patient Records regulations: The Federal rules restrict any use of the information to criminally investigate or prosecute any alcohol or drug abuse patient.[facility] HospitalIn the event this information is protected by the Federal Confidentiality of Alcohol and Drug Abuse Patient Records regulations: The Federal rules restrict any use of the information to criminally investigate or prosecute any alcohol or drug abuse patient.[facility] HospitalIn the event this information is protected by the Federal Confidentiality of Alcohol and Drug Abuse Patient Records regulations: The Federal rules restrict any use of the information to criminally investigate or prosecute any alcohol or drug abuse patient.[facility] HospitalIn the event this information is protected by the Federal Confidentiality of Alcohol and Drug Abuse Patient Records regulations: The Federal rules restrict any use of the information to criminally investigate or prosecute any alcohol or drug abuse patient.[facility] HospitalIn the event this information is protected by the Federal Confidentiality of Alcohol and Drug Abuse Patient Records regulations: The Federal rules restrict any use of the information to criminally investigate or prosecute any alcohol or drug abuse patient.[facility] HospitalIn the event this information is protected by the Federal Confidentiality of Alcohol and Drug Abuse Patient Records regulations: The Federal rules restrict any use of the information to criminally investigate or prosecute any alcohol or drug abuse patient.[facility] HospitalIn the event this information is protected by the Federal Confidentiality of Alcohol and Drug Abuse Patient Records regulations: The Federal rules restrict any use of the information to criminally investigate or prosecute any alcohol or drug abuse patient.[facility] HospitalIn the event this information is protected by the Federal Confidentiality of Alcohol and Drug Abuse Patient Records regulations: The Federal rules restrict any use of the information to criminally investigate or prosecute any alcohol or drug abuse patient.[facility] HospitalIn the event this information is protected by the Federal Confidentiality of Alcohol and Drug Abuse Patient Records regulations: The Federal rules restrict any use of the information to criminally investigate or prosecute any alcohol or drug abuse patient.[facility] HospitalIn the event this information is protected by the Federal Confidentiality of Alcohol and Drug Abuse Patient Records regulations: The Federal rules restrict any use of the information to criminally investigate or prosecute any alcohol or drug abuse patient.[facility] HospitalIn the event this information is protected by the Federal Confidentiality of Alcohol and Drug Abuse Patient Records regulations: The Federal rules restrict any use of the information to criminally investigate or prosecute any alcohol or drug abuse patient.[facility] HospitalIn the event this information is protected by the Federal Confidentiality of Alcohol and Drug Abuse Patient Records regulations: The Federal rules restrict any use of the information to criminally investigate or prosecute any alcohol or drug abuse patient.[facility] HospitalIn the event this information is protected by the Federal Confidentiality of Alcohol and Drug Abuse Patient Records regulations: The Federal rules restrict any use of the information to criminally investigate or prosecute any alcohol or drug abuse patient.[facility] HospitalIn the event this information is protected by the Federal Confidentiality of Alcohol and Drug Abuse Patient Records regulations: The Federal rules restrict any use of the information to criminally investigate or prosecute any alcohol or drug abuse patient.[facility] HospitalIn the event this information is protected by the Federal Confidentiality of Alcohol and Drug Abuse Patient Records regulations: The Federal rules restrict any use of the information to criminally investigate or prosecute any alcohol or drug abuse patient.[facility] HospitalIn the event this information is protected by the Federal Confidentiality of Alcohol and Drug Abuse Patient Records regulations: The Federal rules restrict any use of the information to criminally investigate or prosecute any alcohol or drug abuse patient.[facility] HospitalIn the event this information is protected by the Federal Confidentiality of Alcohol and Drug Abuse Patient Records regulations: The Federal rules restrict any use of the information to criminally investigate or prosecute any alcohol or drug abuse patient.[facility] HospitalIn the event this information is protected by the Federal Confidentiality of Alcohol and Drug Abuse Patient Records regulations: The Federal rules restrict any use of the information to criminally investigate or prosecute any alcohol or drug abuse patient.[facility] HospitalIn the event this information is protected by the Federal Confidentiality of Alcohol and Drug Abuse Patient Records regulations: The Federal rules restrict any use of the information to criminally investigate or prosecute any alcohol or drug abuse patient.[facility] HospitalIn the event this information is protected by the Federal Confidentiality of Alcohol and Drug Abuse Patient Records regulations: The Federal rules restrict any use of the information to criminally investigate or prosecute any alcohol or drug abuse patient.[facility] HospitalIn the event this information is protected by the Federal Confidentiality of Alcohol and Drug Abuse Patient Records regulations: The Federal rules restrict any use of the information to criminally investigate or prosecute any alcohol or drug abuse patient.[facility] HospitalIn the event this information is protected by the Federal Confidentiality of Alcohol and Drug Abuse Patient Records regulations: The Federal rules restrict any use of the information to criminally investigate or prosecute any alcohol or drug abuse patient.[facility] HospitalIn the event this information is protected by the Federal Confidentiality of Alcohol and Drug Abuse Patient Records regulations: The Federal rules restrict any use of the information to criminally investigate or prosecute any alcohol or drug abuse patient.[facility] HospitalIn the event this information is protected by the Federal Confidentiality of Alcohol and Drug Abuse Patient Records regulations: The Federal rules restrict any use of the information to criminally investigate or prosecute any alcohol or drug abuse patient.[facility] HospitalIn the event this information is protected by the Federal Confidentiality of Alcohol and Drug Abuse Patient Records regulations: The Federal rules restrict any use of the information to criminally investigate or prosecute any alcohol or drug abuse patient.[facility] HospitalIn the event this information is protected by the Federal Confidentiality of Alcohol and Drug Abuse Patient Records regulations: The Federal rules restrict any use of the information to criminally investigate or prosecute any alcohol or drug abuse patient.[facility] HospitalIn the event this information is protected by the Federal Confidentiality of Alcohol and Drug Abuse Patient Records regulations: The Federal rules restrict any use of the information to criminally investigate or prosecute any alcohol or drug abuse patient.[facility] HospitalIn the event this information is protected by the Federal Confidentiality of Alcohol and Drug Abuse Patient Records regulations: The Federal rules restrict any use of the information to criminally investigate or prosecute any alcohol or drug abuse patient.[facility] HospitalIn the event this information is protected by the Federal Confidentiality of Alcohol and Drug Abuse Patient Records regulations: The Federal rules restrict any use of the information to criminally investigate or prosecute any alcohol or drug abuse patient.[facility] HospitalIn the event this information is protected by the Federal Confidentiality of Alcohol and Drug Abuse Patient Records regulations: The Federal rules restrict any use of the information to criminally investigate or prosecute any alcohol or drug abuse patient.[facility] HospitalIn the event this information is protected by the Federal Confidentiality of Alcohol and Drug Abuse Patient Records regulations: The Federal rules restrict any use of the information to criminally investigate or prosecute any alcohol or drug abuse patient.[facility] HospitalIn the event this information is protected by the Federal Confidentiality of Alcohol and Drug Abuse Patient Records regulations: The Federal rules restrict any use of the information to criminally investigate or prosecute any alcohol or drug abuse patient.[facility] HospitalIn the event this information is protected by the Federal Confidentiality of Alcohol and Drug Abuse Patient Records regulations: The Federal rules restrict any use of the information to criminally investigate or prosecute any alcohol or drug abuse patient.[facility] HospitalIn the event this information is protected by the Federal Confidentiality of Alcohol and Drug Abuse Patient Records regulations: The Federal rules restrict any use of the information to criminally investigate or prosecute any alcohol or drug abuse patient.[facility] HospitalIn the event this information is protected by the Federal Confidentiality of Alcohol and Drug Abuse Patient Records regulations: The Federal rules restrict any use of the information to criminally investigate or prosecute any alcohol or drug abuse patient.[facility] HospitalIn the event this information is protected by the Federal Confidentiality of Alcohol and Drug Abuse Patient Records regulations: The Federal rules restrict any use of the information to criminally investigate or prosecute any alcohol or drug abuse patient.[facility] HospitalIn the event this information is protected by the Federal Confidentiality of Alcohol and Drug Abuse Patient Records regulations: The Federal rules restrict any use of the information to criminally investigate or prosecute any alcohol or drug abuse patient.[facility] HospitalIn the event this information is protected by the Federal Confidentiality of Alcohol and Drug Abuse Patient Records regulations: The Federal rules restrict any use of the information to criminally investigate or prosecute any alcohol or drug abuse patient.[facility] HospitalIn the event this information is protected by the Federal Confidentiality of Alcohol and Drug Abuse Patient Records regulations: The Federal rules restrict any use of the information to criminally investigate or prosecute any alcohol or drug abuse patient.[facility] HospitalIn the event this information is protected by the Federal Confidentiality of Alcohol and Drug Abuse Patient Records regulations: The Federal rules restrict any use of the information to criminally investigate or prosecute any alcohol or drug abuse patient.[facility] HospitalIn the event this information is protected by the Federal Confidentiality of Alcohol and Drug Abuse Patient Records regulations: The Federal rules restrict any use of the information to criminally investigate or prosecute any alcohol or drug abuse patient.[facility] HospitalIn the event this information is protected by the Federal Confidentiality of Alcohol and Drug Abuse Patient Records regulations: The Federal rules restrict any use of the information to criminally investigate or prosecute any alcohol or drug abuse patient.[facility] HospitalIn the event this information is protected by the Federal Confidentiality of Alcohol and Drug Abuse Patient Records regulations: The Federal rules restrict any use of the information to criminally investigate or prosecute any alcohol or drug abuse patient.[facility] HospitalIn the event this information is protected by the Federal Confidentiality of Alcohol and Drug Abuse Patient Records regulations: The Federal rules restrict any use of the information to criminally investigate or prosecute any alcohol or drug abuse patient.[facility] HospitalIn the event this information is protected by the Federal Confidentiality of Alcohol and Drug Abuse Patient Records regulations: The Federal rules restrict any use of the information to criminally investigate or prosecute any alcohol or drug abuse patient.[facility] HospitalIn the event this information is protected by the Federal Confidentiality of Alcohol and Drug Abuse Patient Records regulations: The Federal rules restrict any use of the information to criminally investigate or prosecute any alcohol or drug abuse patient.[facility] HospitalIn the event this information is protected by the Federal Confidentiality of Alcohol and Drug Abuse Patient Records regulations: The Federal rules restrict any use of the information to criminally investigate or prosecute any alcohol or drug abuse patient.[facility] HospitalIn the event this information is protected by the Federal Confidentiality of Alcohol and Drug Abuse Patient Records regulations: The Federal rules restrict any use of the information to criminally investigate or prosecute any alcohol or drug abuse patient.[facility] HospitalIn the event this information is protected by the Federal Confidentiality of Alcohol and Drug Abuse Patient Records regulations: The Federal rules restrict any use of the information to criminally investigate or prosecute any alcohol or drug abuse patient.[facility] HospitalIn the event this information is protected by the Federal Confidentiality of Alcohol and Drug Abuse Patient Records regulations: The Federal rules restrict any use of the information to criminally investigate or prosecute any alcohol or drug abuse patient.[facility] HospitalIn the event this information is protected by the Federal Confidentiality of Alcohol and Drug Abuse Patient Records regulations: The Federal rules restrict any use of the information to criminally investigate or prosecute any alcohol or drug abuse patient.[facility] HospitalIn the event this information is protected by the Federal Confidentiality of Alcohol and Drug Abuse Patient Records regulations: The Federal rules restrict any use of the information to criminally investigate or prosecute any alcohol or drug abuse patient.[facility] HospitalIn the event this information is protected by the Federal Confidentiality of Alcohol and Drug Abuse Patient Records regulations: The Federal rules restrict any use of the information to criminally investigate or prosecute any alcohol or drug abuse patient.[facility] HospitalIn the event this information is protected by the Federal Confidentiality of Alcohol and Drug Abuse Patient Records regulations: The Federal rules restrict any use of the information to criminally investigate or prosecute any alcohol or drug abuse patient.[facility] HospitalIn the event this information is protected by the Federal Confidentiality of Alcohol and Drug Abuse Patient Records regulations: The Federal rules restrict any use of the information to criminally investigate or prosecute any alcohol or drug abuse patient.[facility] HospitalIn the event this information is protected by the Federal Confidentiality of Alcohol and Drug Abuse Patient Records regulations: The Federal rules restrict any use of the information to criminally investigate or prosecute any alcohol or drug abuse patient.[facility] HospitalIn the event this information is protected by the Federal Confidentiality of Alcohol and Drug Abuse Patient Records regulations: The Federal rules restrict any use of the information to criminally investigate or prosecute any alcohol or drug abuse patient.[facility] HospitalIn the event this information is protected by the Federal Confidentiality of Alcohol and Drug Abuse Patient Records regulations: The Federal rules restrict any use of the information to criminally investigate or prosecute any alcohol or drug abuse patient.[facility] HospitalIn the event this information is protected by the Federal Confidentiality of Alcohol and Drug Abuse Patient Records regulations: The Federal rules restrict any use of the information to criminally investigate or prosecute any alcohol or drug abuse patient.[facility] HospitalIn the event this information is protected by the Federal Confidentiality of Alcohol and Drug Abuse Patient Records regulations: The Federal rules restrict any use of the information to criminally investigate or prosecute any alcohol or drug abuse patient.[facility] Reason for Visit (unrecogniz ed section [...] Hung Emerson MD [address] [place] [address] Respiratory [address] [facility] [place] [place] [address] Referral ID Status Reason Start Date Expiration Date V isits Requested Visits Authorized [id number] Closed Auto-Generate d Referral 01/03/2022 02/02/2023 1 1 Specialty Diagnoses / Procedures Referred By Contac t Referred To [facility] Diagnoses Dyspnea and respiratory abnormalities Procedures LUNG DIFFUSION CAPACITY (DLCO) DIFFUSING CAPACITY Hung Emerson MD [address] [place] [address] [address] [place] [address] Referral ID Status Reason Start Date Expiration Date V isits Requested Visits Authorized [id number] Closed Auto-Generate d Referral 01/03/2022 02/02/2023 1 1 Specialty Diagnoses / Procedures Referred By Contac t Referred To Contact [facility] Diagnoses Dyspnea and respiratory abnormalities Procedures LUNG VOLUMES PLETHYSMOGRAPHY LUNG VOLUMES W/WO AIRWAY RESIST Hung Emerson MD [address] [place] [id number] [address] [place] [address] [place] [id number] Referral ID Status Reason Start Date Expiration Date V isits Requested Visits Authorized [id number] Closed Auto-Generate d Referral 01/19/2022 08/27/2022 1 [...] CT ABD & PELVIS W/CONTRAST Marjan Eddy, PIT FURNACE MELTER.[employer]TAIN [employer] [place] [address] Ct Imaging Referral ID Status Reason Start Date Expiration Date Visits Requested Visits Authorized [id number] Pending Review Patient Cleared - 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 DOES NOT FEEL RIGHT. Care Teams (unrecognized sec tion and content) Yacht Rigger Relationship Specialty Start Date End Date Vargas Mujica, PA [address] [facility] [place] [address] PCP - General Internal Medicine 09/17/18 Joshua Camacho (Hist) [address] [place], [place] [id number] Specialty Race Starter Cardiology 09/19/18 Edith Taylor MD [address] [place] [address] Specialty Race Starter Gastroenterology 09/19/18 Bonita Naqvi [address] [place], [place] [id number] Specialty Race Starter Rheumatology 09/19/18 No, Referral Referring Cardiology 06/26/19 Eric Crooks MD [address] [place], [place] [id number] Primary Staff Physician Cardiology 02/11/20 Yacht Rigger Relationship Specialty Start Date End Date Vargas Mujica PA [address] [place] [address] PCP - General Internal Medicine 09/17/18 Joshua Camacho (Hist) [address] [place] [address] (Fax) Specialty Race Starter Cardiology 09/19/18 [place] [address] [place] [address] Specialty Race Starter Gastroenterology 09/19/18 Bonita Naqvi [address] [place] [address] Specialty Race Starter Rheumatology 09/19/18 No, Referral Referring Cardiology 06/26/19 Eric Crooks MD [address] [place] [address] Primary Staff Physician Cardiology 02/11/20 Yacht Rigger Relationship Specialty Start Date End Date Vargas Mujica PA [address] [place] [address] PCP - General Internal Medicine 09/17/18 Joshua Camacho (Hist) [address] [place], [place] [phone] (Fax) Specialty Race Starter Cardiology 09/19/18 Edith Taylor MD [address] [place] [address] Specialty Race Starter Gastroenterology 09/19/18 Bonita Naqvi [address] [place] [address] Specialty Race Starter Rheumatology 09/19/18 No, Referral Referring Cardiology 06/26/19 Eric Crooks MD [address] [place] [address] Primary Staff Physician Cardiology 02/11/20 Yacht Rigger Relationship Specialty Start Date End Date Vargas Mujica PA [address] [place] [address] PCP - General Internal Medicine 09/17/18 Joshua Camacho (Hist) [address] [place] [address] Specialty Race Starter Cardiology 09/19/18 Edith Taylor MD [address] [place] [address] Specialty Race Starter Gastroenterology 09/19/18 Bonita Naqvi [address] [place] [address] Specialty Race Starter Rheumatology 09/19/18 No, Referral Referring Cardiology 06/26/19 Eric Crooks MD [address] [place] [address] Primary Staff Physician Cardiology 02/11/20 Tomasz Garay MD [address] [facility] [address] Cardiology 11/24/21 Yacht Rigger Relationship Specialty Start Date End Date Vargas Mujica PA [address] [place] [address] PCP - General Internal Medicine 09/17/18 Joshua Camacho (Hist) [address] [place] [address] (Fax) Specialty Race Starter Cardiology 09/19/18 Edith Taylor MD [address] [place] [address] Specialty Race Starter Gastroenterology 09/19/18 Bonita Naqvi [address] [place] [address] Specialty Race Starter Rheumatology 09/19/18 No, Referral Referring Cardiology 06/26/19 Eric Crooks MD [address] [place] [address] Primary Staff Physician Cardiology 02/11/20 Tomasz Garay MD [address] [facility] [place] [address] Cardiology 11/24/21 Yacht Rigger Relationship Specialty Start Date End Date Vargas Mujica PA [address] [place] [id number] PCP - General Internal Medicine 09/17/18 Joshua Camacho (Hist) [address] [place] [address] (Fax) Specialty Race Starter Cardiology 09/19/18 Edith Taylor MD [address] [place] [address] Specialty Race Starter Gastroenterology 09/19/18 Bonita Naqvi [address] [place] [address] Specialty Race Starter Rheumatology 09/19/18 No, Referral Referring Cardiology 06/26/19 Eric Crooks MD [address] [place] [address] Primary Staff Physician Cardiology 02/11/20 Tomasz Garay MD [address] [facility] [place], [place] [id number] Cardiology 11/24/21 Yacht Rigger Relationship Specialty Start Date End Date Vargas Mujica PA [address] [place] [address] PCP - General Internal Medicine 09/17/18 Joshua Camacho (Hist) [address] [place], [place] [address] Specialty Race Starter Cardiology 09/19/18 Edith Taylor MD [address] [place] [address] Specialty Race Starter Gastroenterology 09/19/18 Bonita Naqvi [address] [facility] [place] [place] [address] Specialty Race Starter Rheumatology 09/19/18 No, Referral Referring Cardiology 06/26/19 Eric Crooks MD [address] [place] [address] Primary Staff Physician Cardiology 02/11/20 Tomasz Garay MD [address] [place] [address] Cardiology 11/24/21 Yacht Rigger Relationship Specialty Start Date End Date Vargas Mujica, JUNE [address] [place] [address] PCP - General Internal Medicine 09/17/18 Joshua Camacho (Hist) [address] [place] [address] Specialty Race Starter Cardiology 09/19/18 Edith Taylor MD [address] [place] [address] Specialty Race Starter Gastroenterology 09/19/18 Bonita Naqvi [address] [place] [address] Specialty Race Starter Rheumatology 09/19/18 No, Referral Referring Cardiology 06/26/19 Eric Crooks MD [address] [place] [address] Primary Staff Physician Cardiology 02/11/20 Tomasz Garay MD [address] [place] [address] Cardiology 11/24/21 Yacht Rigger Relationship Specialty Start Date End Date Vargas Mujica PA [address] [place] [address] PCP - General Internal Medicine 09/17/18 Joshua Camacho (Hist) [address] [place], [place] [id number] Specialty Race Starter Cardiology 09/19/18 Edith Taylor MD [address] [place] [address] Specialty Race Starter Gastroenterology 09/19/18 Bonita Naqvi [address] [facility] [place] [address] Specialty Race Starter Rheumatology 09/19/18 No, Referral Referring Cardiology 06/26/19 Eric Crooks MD [address] [place] [address] Primary Staff Physician Cardiology 02/11/20 Tomasz Garay MD [address] [place] [address] Cardiology 11/24/21 Yacht Rigger Relationship Specialty Start Date End Date Vargas Mujica PA [address] [place] [address] PCP - General Internal Medicine 09/17/18 Joshua Camacho (Hist) [address] [place] [address] (Fax) Specialty Race Starter Cardiology 09/19/18 Edith Taylor MD [address] [place], [place] [id number] Specialty Race Starter Gastroenterology 09/19/18 Bonita Naqvi [address] [place] [address] Specialty Race Starter Rheumatology 09/19/18 No, Referral Referring Cardiology 06/26/19 Eric Crooks MD [address] [place], [place] [id number] Primary Staff Physician Cardiology 02/11/20 Tomasz Garay MD [address] [place] [address] Cardiology 11/24/21 Yacht Rigger Relationship Specialty Start Date End Date Vargas Mujica PA [address] [place] [address] PCP - General Internal Medicine 09/17/18 Joshua Camacho (Hist) [address] [place] [address] Specialty Race Starter Cardiology 09/19/18 Edith Taylor MD [address] [place], [place] [id number] Specialty Race Starter Gastroenterology 09/19/18 Bonita Naqvi [address] [place] [address] Specialty Race Starter Rheumatology 09/19/18 No, Referral Referring Cardiology 06/26/19 Eric Crooks MD [address] [place] [address] Primary Staff Physician Cardiology 02/11/20 Tomasz Garay MD [address] [place] [address] Cardiology 11/24/21 Yacht Rigger Relationship Specialty Start Date End Date Vargas Mujica PA [address] [place] [address] PCP - General Internal Medicine 09/17/18 Joshua Camacho (Hist) [address] [place] [address] Specialty Race Starter Cardiology 09/19/18 Edith Taylor MD [address] [place] [address] Specialty Race Starter Gastroenterology 09/19/18 Bonita Naqvi [address] [place] [address] Specialty Race Starter Rheumatology 09/19/18 No, Referral Referring Cardiology 06/26/19 Eric Crooks MD [address] [place] [address] Primary Staff Physician Cardiology 02/11/20 Tomasz Garay MD [address] [place] [address] Cardiology 11/24/21 Yacht Rigger Relationship Specialty Start Date End Date Vargas Mujica PA [address] [place] [place] [address] PCP - General Internal Medicine 09/17/18 Joshua Camacho (Hist) [address] [place] [address] Specialty Race Starter Cardiology 09/19/18 Edith Taylor MD [address] [place], [place] [id number] Specialty Race Starter Gastroenterology 09/19/18 Bonita Naqvi [address] [place] [address] Specialty Race Starter Rheumatology 09/19/18 No, Referral Referring Cardiology 06/26/19 Eric Crooks MD [address] [place] [address] Primary Staff Physician Cardiology 02/11/20 Tomasz Garay MD [address] [place] [address] Cardiology 11/24/21 Yacht Rigger Relationship Specialty Start Date End Date Vargas Mujica PA [address] [place] [place] [address] PCP - General Internal Medicine 09/17/18 Joshua Camacho (Hist) [address] [place] [address] Specialty Race Starter Cardiology 09/19/18 Edith Taylor MD [address] [place] [address] Specialty Race Starter Gastroenterology 09/19/18 Bonita Naqvi [address] [place] [address] Specialty Race Starter Rheumatology 09/19/18 No, Referral Referring Cardiology 06/26/19 Eric Crooks MD [address] [place] [address] Primary Staff Physician Cardiology 02/11/20 Tomasz Garay MD [address] [facility] [place], [place] [address] Cardiology 11/24/21 Yacht Rigger Relationship Specialty Start Date End Date Vargas Mujica PA [address] [place], [place] [id number] PCP - General Internal Medicine 09/17/18 Joshua Camacho (Hist) [address] [facility] [place], [place] [address] Specialty Race Starter Cardiology 09/19/18 Edith Taylor MD Specialty Race Starter Gastroenterology 09/19/18 Bonita Naqvi [address] [facility], [place] [address] Specialty Race Starter Rheumatology 09/19/18 No, Referral Referring Cardiology 06/26/19 Eric Crooks MD [address] [place] [address] Primary Staff Physician Cardiology 02/11/20 Tomasz Garay MD [address] [facility] [place] [address] Cardiology 11/24/21 Yacht Rigger Relationship Specialty Start Date End Date Vargas Mujica, JUNE [address] [place] [address] PCP - General Internal Medicine 09/17/18 Joshua Camacho (Hist) [address] [facility] [place] [address] Specialty Race Starter Cardiology 09/19/18 Edith Taylor MD [address] [place] [address] Specialty Race Starter Gastroenterology 09/19/18 Bonita Naqvi [address], [place] [id number] Specialty Race Starter Rheumatology 09/19/18 No, Referral Referring Cardiology 06/26/19 Eric Crooks MD [address] [place] [address] Primary Staff Physician Cardiology 02/11/20 Tomasz Garay MD [address] [place], [place] [id number] Cardiology 11/24/21 Brooks Soto MD [address] [facility] [address] [place] [address] Gastroenterology 02/02/22 Brooks Soto MD 1 [facility][1] [address] [place] [address] Gastroenterology 02/02/22 Hung Emerson MD [address] [place] [address] Pulmonary and Critical Care Medicine 02/02/22 Yacht Rigger Relationship Specialty Start Date End Date Vargas Mujica PA [address] [facility] [place] [address] PCP - General Internal Medicine 09/17/18 Joshua Camacho (Hist) [address] [place], [place] [id number] Specialty Race Starter Cardiology 09/19/18 Edith Taylor MD [address] [place] [address] Specialty Race Starter Gastroenterology 09/19/18 Bonita Naqvi [address] [place], [place] [id number] Specialty Race Starter Rheumatology 09/19/18 No, Referral Referring Cardiology 06/26/19 Eric Crooks MD [address] [place] [address] Primary Staff Physician Cardiology 02/11/20 Tomasz Garay MD [address] [place], [place] [id number] Cardiology 11/24/21 Brooks Soto MD 4302 [facility] [address] [place], [place] [id number] Gastroenterology 02/02/22 Brooks Soto MD 1 [facility][1] [address] [place] [address] Gastroenterology 02/02/22 Hung Emerson MD [address] [place] [address] Pulmonary and Critical Care Medicine 02/02/22 Yacht Rigger Relationship Specialty Start Date End Date Vargas Mujica, JUNE 2021 [facility] [place] [address] PCP - General Internal Medicine 09/17/18 Joshua Camacho (Hist) [address] [place] [address] Specialty Race Starter Cardiology 09/19/18 Edith Taylor MD [address] [place] [address] Specialty Race Starter Gastroenterology 09/19/18 Bonita Naqvi [address] [place] [address] Specialty Race Starter Rheumatology 09/19/18 No, Referral Referring Cardiology 06/26/19 Eric Crooks MD [address] [place], [place] [id number] Primary Staff Physician Cardiology 02/11/20 Tomasz Garay MD [address] [place] [address] Cardiology 11/24/21 Brooks Soto MD 4302 [facility] [address] [place] [address] Gastroenterology 02/02/22 Brooks Soto MD 1 [facility][1] [address] [place] [address] Gastroenterology 02/02/22 Hung Emerson MD [address] [place] [address] Pulmonary and Critical Care Medicine 02/02/22 Yacht Rigger Relationship Specialty Start Date End Date Vargas Mujica, JUNE 2021 [place] [address] PCP - General Internal Medicine 09/17/18 Joshua Camacho (Hist) [address] [place], [place] [id number] Specialty Race Starter Cardiology 09/19/18 Edith Taylor MD [address] [place] [address] Specialty Race Starter Gastroenterology 09/19/18 Bonita Naqvi 3727 [facility] [place] 187171 Specialty Race Starter Rheumatology 09/19/18 No, Referral Referring Cardiology 06/26/19 Eric Crooks MD [address]68 [place] [address] Primary Staff Physician Cardiology 02/11/20 Tomasz Garay MD [address] [place], [place] 784041 Cardiology 11/24/21 Brooks Soto MD [address] [place] [address] Gastroenterology 02/02/22 Brooks Soto MD 1 [facility][1] [address] [place] [address] Gastroenterology 02/02/22 Hung Emerson MD [address] [place] [address] Pulmonary and Critical Care Medicine 02/02/22 Yacht Rigger Relationship Specialty Start Date End Date Vargas Mujica, JUNE 2021 S [facility] [place] [address] PCP - General Internal Medicine 09/17/18 Joshua Camacho (Hist) [address] [place] [address] Specialty Race Starter Cardiology 09/19/18 Edith Taylor MD [address] [place] [address] Specialty Race Starter Gastroenterology 09/19/18 Bonita Naqvi [address] [place], [place] 637601 Specialty Race Starter Rheumatology 09/19/18 No, Referral Referring Cardiology 06/26/19 Eric Crooks MD [address] [place] [address] Primary Staff Physician Cardiology 02/11/20 Tomasz Garay MD [address] [place] [address] Cardiology 11/24/21 Brooks Soto MD 4302 [facility] [address] [place], [place] [id number] Gastroenterology 02/02/22 Brooks Soto MD 1 [facility][1] [address] [place] [address] Gastroenterology 02/02/22 Hung Emerson MD [address] [place] [address] Pulmonary and Critical Care Medicine 02/02/22 Yacht Rigger Relationship Specialty Start Date End Date Vargas Mujica, PA 2021 S [facility] [place] [address] PCP - General Internal Medicine 09/17/18 Joshua Camacho (Hist) [address] [place] [address] Specialty Race Starter Cardiology 09/19/18 Edith Taylor MD [address] [place] [address] Specialty Race Starter Gastroenterology 09/19/18 Bonita Naqvi [address] [facility] [place] [address] Specialty Race Starter Rheumatology 09/19/18 No, Referral Referring Cardiology 06/26/19 Eric Crooks MD [address] [place], [place] 7216795 Primary Staff Physician Cardiology 02/11/20 Tomasz Garay MD 721 E [facility] [address] Cardiology 11/24/21 Brooks Soto MD [address] [place] [address] Gastroenterology 02/02/22 Brooks Soto MD [address] [facility] [address] [place] [address] Gastroenterology 02/02/22 Hung Emerson MD [address] [place] [address] Pulmonary and Critical Care Medicine 02/02/22 Yacht Rigger Relationship Specialty Start Date End Date Vargas Mujica, PA 2021 S [facility] [place] [address] PCP - General Internal Medicine 09/17/18 Joshua Caamcho (Hist) [address] E [facility] [place] [id number] Specialty Race Starter Cardiology 09/19/18 Edith Taylor MD [address] [place] [address] Specialty Race Starter Gastroenterology 09/19/18 Bonita Naqvi [address] [place] [address] Specialty Race Starter Rheumatology 09/19/18 No, Referral Referring Cardiology 06/26/19 Eric Crooks MD [address] [place] [address] Primary Staff Physician Cardiology 02/11/20 Tomasz Garay MD [address] [place] [address] Cardiology 11/24/21 Brooks Soto MD [address] [place] [address] Gastroenterology 02/02/22 Brooks Soto MD [facility] [address] [place] [address] Gastroenterology 02/02/22 Hung Emerson MD [address] [place] [address] Pulmonary and Critical Care Medicine 02/02/22 Yacht Rigger Relationship Specialty Start Date End Date Vargas Mujica PA 2021 S [facility] [place], [place] [id number] PCP - General Internal Medicine 09/17/18 Joshua Camacho (Hist) [address] [place] [address] Specialty Race Starter Cardiology 09/19/18 Edith Taylor MD [address] [place], [place] 2714095 Specialty Race Starter Gastroenterology 09/19/18 Bonita Naqvi [address] [place] [address] Specialty Race Starter Rheumatology 09/19/18 No, Referral Referring Cardiology 06/26/19 Eric Crooks MD [address] [place] [address] Primary Staff Physician Cardiology 02/11/20 Tomasz Garay MD [address] [place] [address] Cardiology 11/24/21 Brooks Soto MD [address] [facility] [address] [place], [place] [id number] Gastroenterology 02/02/22 Brooks Soto MD 1 [facility][1] [address] [place] [address] Gastroenterology 02/02/22 Hung Emerson MD [address] [place] [address] Pulmonary and Critical Care Medicine 02/02/22 Yacht Rigger Relationship Specialty Start Date End Date Vargas Mujica PA 2021 S [facility] [place] [address] PCP - General Internal Medicine 09/17/18 Joshua Camacho (Hist) [address] [place], [place] 757931 Specialty Race Starter Cardiology 09/19/18 Edith Taylor MD [address] [place] [address] Specialty Race Starter Gastroenterology 09/19/18 Bonita Naqvi 3727 [facility] [place] 155061 Specialty Race Starter Rheumatology 09/19/18 No, Referral Referring Cardiology 06/26/19 Eric Crooks MD [address] [place], [place] 4819295 Primary Staff Physician Cardiology 02/11/20 Tomasz Garay MD [address] [place], [place] 123701 Cardiology 11/24/21 Brooks Soto MD [address] [place] [address] Gastroenterology 02/02/22 Brooks Soto MD 1 [facility][1] [address] [place] [address] Gastroenterology 02/02/22 Hung Emerson MD [address] [place] [address] Pulmonary and Critical Care Medicine 02/02/22 Yacht Rigger Relationship Specialty Start Date End Date Vargas Mujica PA 2021 [place] [address] PCP - General Internal Medicine 09/17/18 Joshua Camacho (Hist) [address] [place] [address] Specialty Race Starter Cardiology 09/19/18 Edith Taylor MD [address] [place] [address] Specialty Race Starter Gastroenterology 09/19/18 Bonita Naqvi [address] [place] [address] Specialty Race Starter Rheumatology 09/19/18 No, Referral Referring Cardiology 06/26/19 Eric Crooks MD [address] [place], [place] 0390095 Primary Staff Physician Cardiology 02/11/20 Tomasz Garay MD [address] [place] [address] Cardiology 11/24/21 Brooks Soto MD 4302 [facility] [address] [place] [address] Gastroenterology 02/02/22 Brooks Soto MD 1 [facility][1] [address] [place] [address] Gastroenterology 02/02/22 Hung Emerson MD [address] [place] [address] Pulmonary and Critical Care Medicine 02/02/22 Yacht Rigger Relationship Specialty Start Date End Date Vargas Mujica PA 2021 [place] [address] PCP - General Internal Medicine 09/17/18 Joshua Camacho (Hist) [address] [place], [place] [id number] (Fax) Specialty Race Starter Cardiology 09/19/18 Edith Taylor MD [address] [place] [address] Specialty Race Starter Gastroenterology 09/19/18 Bonita Naqvi [address] [place] [address] Specialty Race Starter Rheumatology 09/19/18 No, Referral Referring Cardiology 06/26/19 Eric Crooks MD [address] [place], [place] 6683895 Primary Staff Physician Cardiology 02/11/20 Tomasz Garay MD 721 E [facility] [place], [place] 10267[address] Cardiology 11/24/21 Brooks Soto MD 4302 [facility] [address] [place] [address] Gastroenterology 02/02/22 Brooks Soto MD 1 [facility][1] [address] [place] [address] Gastroenterology 02/02/22 Hung Emerson MD [address] [place] [address] Pulmonary and Critical Care Medicine 02/02/22 Yacht Rigger Relationship Specialty Start Date End Date Vargas Mujica PA 2021 S [facility] [place] [address] PCP - General Internal Medicine 09/17/18 Joshua Camacho (Hist) [address] [facility] [place], [place] [phone] (Fax) Specialty Race Starter Cardiology 09/19/18 Edith Taylor MD [address] [place] [address] Specialty Race Starter Gastroenterology 09/19/18 Kalpeshedisonia Bonita Bee [address], [place] 827731 Specialty Race Starter Rheumatology 09/19/18 No, Referral Referring Cardiology 06/26/19 Eric Crooks MD [address] [place] [address] Primary Staff Physician Cardiology 02/11/20 Tomasz Garay MD [address] [place], [place] [id number] Cardiology 11/24/21 Brooks Soto MD 4302 [facility] [address] [place] [address] Gastroenterology 02/02/22 Brooks Soto MD 1 [facility][1] [address] [place] [address] Gastroenterology 02/02/22 Hung Emerson MD [address] [place] [address] Pulmonary and Critical Care Medicine 02/02/22 Yacht Rigger Relationship Specialty Start Date End Date Vargas Mujica PA 2021 [address] [facility] [place] [address] PCP - General Internal Medicine 09/17/18 Joshua Camacho (Hist) [address] [place], [place] [id number] Specialty Race Starter Cardiology 09/19/18 Edith Taylor MD [address] [place] [address] Specialty Race Starter Gastroenterology 09/19/18 Bonita Naqvi L [address] [place] [address] Specialty Race Starter Rheumatology 09/19/18 No, Referral Referring Cardiology 06/26/19 Eric Crooks MD [address] [place] [address] Primary Staff Physician Cardiology 02/11/20 Tomasz Garay MD 721 E [facility] [place] [address] Cardiology 11/24/21 Brooks Soto MD 4302 [facility] [address] [place], [place] [address] Gastroenterology 02/02/22 Brooks Soto MD 1 [facility][1] [address] [place], [place] 878[address]307 Gastroenterology 02/02/22 Hung Emerson MD [address] [place] [address] Pulmonary and Critical Care Medicine 02/02/22 Yacht Rigger Relationship Specialty Start Date End Date Vargas Mujica, PA 2021 [address] [facility] [place] [address] PCP - General Internal Medicine 09/17/18 Joshua Camacho (Hist) [address] [facility] [place], [place] 90[address]61 Specialty Race Starter Cardiology 09/19/18 Edith Taylor MD [address] [place], [place] 3821895 Specialty Race Starter Gastroenterology 09/19/18 Bonita Naqvi L [address] [place] [address] Specialty Race Starter Rheumatology 09/19/18 No, Referral Referring Cardiology 06/26/19 Eric Crooks MD [address] [place] [address] Primary Staff Physician Cardiology 02/11/20 Tomasz Garay MD [address] [place], [place] 12716691 Cardiology 11/24/21 Brooks Soto MD [address] [place] [address] Gastroenterology 02/02/22 Brooks Soto MD 1 [facility][1] [address] [place], [place] 34728307 Gastroenterology 02/02/22 Hung Emerson MD [address] [place] [address] Pulmonary and Critical Care Medicine 02/02/22 Yacht Rigger Relationship Specialty Start Date End Date Vargas Mujica, JUNE 2021 S [facility] [place] [address] PCP - General Internal Medicine 09/17/18 Joshua Camacho (Hist) 7[address] E [facility] [place] [phone] Specialty Race Starter Cardiology 09/19/18 Edith Taylor MD [address] [place] [address] Specialty Race Starter Gastroenterology 09/19/18 Bonita Naqvi [address] [place] [address] Specialty Race Starter Rheumatology 09/19/18 No, Referral Referring Cardiology 06/26/19 Eric Crooks MD [address] [place] [address] Primary Staff Physician Cardiology 02/11/20 Tomasz Garay MD [address] [place], [place] [id number] Cardiology 11/24/21 Brooks Soto MD 4302 [facility] [address] [place] [address] Gastroenterology 02/02/22 Brooks Soto MD 1 [facility][1] [address] [place] [address] Gastroenterology 02/02/22 Hung Emerson MD [address] [place] [address] Pulmonary and Critical Care Medicine 02/02/22 Yacht Rigger Relationship Specialty Start Date End Date Vargas Mujica, JUNE 2021 S [facility] [place] [address] PCP - General Internal Medicine 09/17/18 Joshua Camacho (Hist) [address] [place], [place] [id number] Specialty Race Starter Cardiology 09/19/18 Edith Taylor MD [address] [place] [address] Specialty Race Starter Gastroenterology 09/19/18 Bonita Naqvi 3727 [facility] [place] 047[address] Specialty Race Starter Rheumatology 09/19/18 No, Referral Referring Cardiology 06/26/19 Eric Crooks MD [address] [place] [address] Primary Staff Physician Cardiology 02/11/20 Tomasz Garay MD [address] [place], [place] 4540[address]31 Cardiology 11/24/21 Brooks Soto MD [address] [place], [place] [address]85[address] Gastroenterology 02/02/22 Brooks Soto MD 1 [facility][1] [address] [place] [address] Gastroenterology 02/02/22 Hung Emerson MD [address] [place] [address] Pulmonary and Critical Care Medicine 02/02/22 Yacht Rigger Relationship Specialty Start Date End Date Vargas Mujica PA 2021 S [facility] [place] [address] PCP - General Internal Medicine 09/17/18 Joshua Camacho (Hist) [address] [place] [address] Specialty Race Starter Cardiology 09/19/18 Edith Taylor MD [address] [place] [address] Specialty Race Starter Gastroenterology 09/19/18 Bonita Naqvi [address]27 [facility] [place] [address] Specialty Race Starter Rheumatology 09/19/18 No, Referral Referring Cardiology 06/26/19 Eric Crooks MD [address] [place] [address] Primary Staff Physician Cardiology 02/11/20 Tomasz Garay MD 721 E [facility] [place] [address] Cardiology 11/24/21 Brooks Soto MD [address] [place], [place] [id number] Gastroenterology 02/02/22 Brooks Soto MD [address] [facility] [address] [place], [place] [id number] Gastroenterology 02/02/22 Hung Emerson MD [address] [place] [address] Pulmonary and Critical Care Medicine 02/02/22 Yacht Rigger Relationship Specialty Start Date End Date Vargas Mujica PA 2021 [address] [facility] [place] [address] PCP - General Internal Medicine 09/17/18 Joshua Camacho (Hist) [address] [facility] [place] [place] [address]91 Specialty Race Starter Cardiology 09/19/18 Edith Taylor MD [address] [place] [address] Specialty Race Starter Gastroenterology 09/19/18 Bonita Naqvi [address] [place] [address] Specialty Race Starter Rheumatology 09/19/18 No, Referral Referring Cardiology 06/26/19 Eric Crooks MD [address] [place] [address] Primary Staff Physician Cardiology 02/11/20 Tomasz Garay MD [address] [place] [address] Cardiology 11/24/21 Brooks Soto MD [address] [facility] [address] [place], [place] [id number] Gastroenterology 02/02/22 Brooks Soto MD [address] [facility] [address] [place], [place] 8[address]307 Gastroenterology 02/02/22 Hung Emerson MD [address] [place] [address] Pulmonary and Critical Care Medicine 02/02/22 Yacht Rigger Relationship Specialty Start Date End Date Vargas Mujica PA 2021 S [facility] [place] [address] PCP - General Internal Medicine 09/17/18 Joshua Camacho (Hist) [address] [place], [place] [id number] Specialty Race Starter Cardiology 09/19/18 Edith aTylor MD [address] [place], [place] 6093795 Specialty Race Starter Gastroenterology 09/19/18 Bonita Naqvi [address] [place] [address] Specialty Race Starter Rheumatology 09/19/18 No, Referral Referring Cardiology 06/26/19 Eric Crooks MD [address] [place] [address] Primary Staff Physician Cardiology 02/11/20 Tomasz Garay MD 721 E [facility] [place] [address] Cardiology 11/24/21 Brooks Soto MD 4302 [facility] [address] [place], [place] [address] Gastroenterology 02/02/22 Brooks Soto MD 1 [facility][1] [address] [place], [place] 23401307 Gastroenterology 02/02/22 Hung Emesron MD [address] [place] [address] Pulmonary and Critical Care Medicine 02/02/22 Yacht Rigger Relationship Specialty Start Date End Date Vargas Mujica PA [address] [place], [place] 759[address] PCP - General Internal Medicine 09/17/18 Joshua Camacho (Hist) [address] [place], [place] [id number] Specialty Race Starter Cardiology 09/19/18 Edith Taylor MD [address] [place], [place] 8011195 Specialty Race Starter Gastroenterology 09/19/18 Bonita Naqvi [address] [place] [address] Specialty Race Starter Rheumatology 09/19/18 No, Referral Referring Cardiology 06/26/19 Eric Crooks MD [address] [place], [place] 5572095 Primary Staff Physician Cardiology 02/11/20 Tomasz Garay MD 721 E [facility] [place], [place] 219[address] Cardiology 11/24/21 Brooks Soto MD 4302 [facility] [address] [place] [address] Gastroenterology 02/02/22 Brooks Soto MD 1 [facility][1] [address] [place] [address] Gastroenterology 02/02/22 Hung Emerson MD [address] [place] [address] Pulmonary and Critical Care Medicine 02/02/22 Yacht Rigger Relationship Specialty Start Date End Date Vargas Mujica PA [address] [place] [address] PCP - General Internal Medicine 09/17/18 Joshua Camacho (Hist) [address] [place], [place] 716921 Specialty Race Starter Cardiology 09/19/18 Edith Taylor MD [address] [place] [address] Specialty Race Starter Gastroenterology 09/19/18 Bonita Naqvi [address] [place] [address] Specialty Race Starter Rheumatology 09/19/18 No, Referral Referring Cardiology 06/26/19 Eric Crooks MD [address] [place] [address] Primary Staff Physician Cardiology 02/11/20 Tomasz Garay MD [address] [place] [address] Cardiology 11/24/21 Brooks Soto MD 4302 [facility] [address] [place] [address] Gastroenterology 02/02/22 Brooks Soto MD 1 [facility][1] [address] [place] [address] Gastroenterology 02/02/22 Hung Emerson MD [address] [place] [address] Pulmonary and Critical Care Medicine 02/02/22 Yacht Rigger Relationship Specialty Start Date End Date Vargas Mujica PA 2021 [address] [facility] [place] [address] PCP - General Internal Medicine 09/17/18 Joshua Camacho [address] [place], [place] [id number] Specialty Race Starter Cardiology 09/19/18 Edith Taylor MD [address] [place] [address] Specialty Race Starter Gastroenterology 09/19/18 Donya Bonita Suzi [address] [place], [place] 129371 Specialty Race Starter Rheumatology 09/19/18 No, Referral Referring Cardiology 06/26/19 Eric Crooks MD [address] [place] [address] Primary Staff Physician Cardiology 02/11/20 Tomasz Garay MD [address] [place], [place] [id number] Cardiology 11/24/21 Brooks Soto MD 4302 [facility] [address] [place] [address] Gastroenterology 02/02/22 Brooks Soto MD 1 [facility][1] [address] [place] [address] Gastroenterology 02/02/22 Hung Emerson MD [address] [place] [address] Pulmonary and Critical Care Medicine 02/02/22 Yacht Rigger Relationship Specialty Start Date End Date Vargas Mujica PA 2021 [address] [facility] [place] [address] PCP - General Internal Medicine 09/17/18 Joshua Camacho [address] [place], [place] [id number] Specialty Race Starter Cardiology 09/19/18 Edith Taylor MD [address] [place] [address] Specialty Race Starter Gastroenterology 09/19/18 Bonita Naqvi [address] [place], [place] [id number] Specialty Race Starter Rheumatology 09/19/18 No, Referral Referring Cardiology 06/26/19 Eric Crooks MD [address] [place] [address] Primary Staff Physician Cardiology 02/11/20 Tomasz Garay MD [address] [place], [place] 36382691 Cardiology 11/24/21 Brooks Soto MD 4302 [facility] [address] [place], [place] [id number] Gastroenterology 02/02/22 Brooks Soto MD 1 [facility][1] [address] [place] [address] Gastroenterology 02/02/22 Hung Emerson MD [address] [place] [address] Pulmonary and Critical Care Medicine 02/02/22 Yacht Rigger Relationship Specialty Start Date End Date Vargas Mujica PA 2021 [facility] [place] [address] PCP - General Internal Medicine 09/17/18 Joshua Camacho [address] [place], [place] [id number] Specialty Race Starter Cardiology 09/19/18 Edith Taylor MD [address] [place] [address] Specialty Race Starter Gastroenterology 09/19/18 Bonita Naqvi [address] [facility] [address] Specialty Race Starter Rheumatology 09/19/18 No, Referral Referring Cardiology 06/26/19 Eric Crooks MD [address] [place], [place] 0415095 Primary Staff Physician Cardiology 02/11/20 Tomasz Garay MD [address] [place] [address] Cardiology 11/24/21 Brooks Soto MD 4302 [facility] [address] [place] [address] Gastroenterology 02/02/22 Brooks Soto MD 1 [facility][1] [address] [place] [address] Gastroenterology 02/02/22 Hung Emerson MD [address] [place] [address] Pulmonary and Critical Care Medicine 02/02/22 Yacht Rigger Relationship Specialty Start Date End Date Vargas Mujica, JUNE 2021 [facility] [place] [address] PCP - General Internal Medicine 09/17/18 Joshua Camacho [address] [place], [place] [id number] Specialty Race Starter Cardiology 09/19/18 Edith Taylor MD [address] [place] [address] Specialty Race Starter Gastroenterology 09/19/18 Bonita Naqvi [address] [place] [address] Specialty Race Starter Rheumatology 09/19/18 No, Referral Referring Cardiology 06/26/19 Eric Crooks MD [address] [place] [address] Primary Staff Physician Cardiology 02/11/20 Tomasz Garay MD [address] [place], [place] 437[address] Cardiology 11/24/21 Brooks Soto MD 4302 [facility] [address] [place] [address] Gastroenterology 02/02/22 Brooks Soto MD 1 [facility][1] [address] [place] [address] Gastroenterology 02/02/22 Hung Emerson MD [address] [place] [address] Pulmonary and Critical Care Medicine 02/02/22 Team Status: Active Member Role Status Dates JUNE Graham Family Provider Active JUNE Graham Primary Care Provider Active Team Status: Inactive Member Role Status Dates JUNE Graham Primary Care Provider, Referr ing Provider Active JUNE Thapa Attending Provider Active Team Status: Inactive Member Role Status Dates JUNE Graham Primary Care Provider Active Dr. Cliff Espinoza DO Attending Provider, Emergency Provide r Active Team Status: Inactive Member Role Status Dates JUNE Graham Primary Care Provider Active Dr. Aftab Sutton MD Emergency Provider Active Yacht Rigger Relationship Specialty Start Date End Date Vargas Mujica PA [address] [facility] [place] [address] PCP - General Internal Medicine 09/17/[address] [place], [place] [address] Specialty Race Starter Cardiology 09/19/18 Edith Taylor MD [address] [place] [address] Specialty Race Starter Gastroenterology 09/19/18 Bonita Naqvi Suzi [address] [place] [address] Specialty Race Starter Rheumatology 09/19/18 No, Referral Referring Cardiology 06/26/19 Eric Crooks MD [address] [place] [address] Primary Staff Physician Cardiology 02/11/20 Tomasz Garay MD [address] [place], [place] [address] Cardiology 11/24/21 Brooks Soto MD [address] [facility] [address] [place], [place] [id number] Gastroenterology 02/02/22 Brooks Soto MD 1 [facility][1] [address] [place] [address] Gastroenterology 02/02/22 Hung Emerson MD [address] [place] [address] Pulmonary and Critical Care Medicine 02/02/22 Team Status: Inactive Member Role Status Dates JUNE Graham Primary Care Provider Active Dr. Aftab Sutton MD Attending Provider, Emergency Pr ovid Active Team Status: Inactive Member Role Status Dates JUNE Graham Primary Care Provider Active Dr. Garry Conn DO Emergency Provider Active Yacht Rigger Relationship Specialty Start Date End Date Vargas Mujica PA 2021 [address] [facility] [place] [address] PCP - General Internal Medicine 09/17/18 Joshua Camacho [address] [place] [address] Specialty Race Starter Cardiology 09/19/18 Edith Taylor MD [address] [place], [place] [id number] Specialty Race Starter Gastroenterology 09/19/18 Bonita Naqvi [address], [place] [address] Specialty Race Starter Rheumatology 09/19/18 No, Referral Referring Cardiology 06/26/19 Eric Crooks MD [address] [place], [place] [address] Primary Staff Physician Cardiology 02/11/20 Tomasz Garay MD [address] [place], [place] [id number] Cardiology 11/24/21 Brooks Soto MD [address] [facility] [address] [place], [place] [id number] Gastroenterology 02/02/22 Brooks Soto MD 1 [facility] hang [address] [place] [address] Gastroenterology 02/02/22 Hung Emerson MD [address] [place] [address] Pulmonary and Critical Care Medicine 02/02/22 Yacht Rigger Relationship Specialty Start Date End Date Vargas Mujica PA-C [address] [place] [address] PCP - General 04/30/19 Yacht Rigger Relationship Specialty Start Date End Date Vargas Mujica PA [address] [place] [address] PCP - General Internal Medicine 09/17/18 Joshua Camacho [address] [place] [address] Specialty Race Starter Cardiology 09/19/18 Edith Taylor MD [address] [place] [address] Specialty Race Starter Gastroenterology 09/19/18 Bonita Naqvi [address] [place] [place] [address] Specialty Race Starter Rheumatology 09/19/18 No, Referral Referring Cardiology 06/26/19 Eric Crooks MD [address] [place], [place] [id number] Primary Staff Physician Cardiology 02/11/20 Tomasz Garay MD [address] [place], [place] [id number] Cardiology 11/24/21 Brooks Soto MD [address]302 [facility] [address] [place] [address] Gastroenterology 02/02/22 Brooks Soto MD 1 [facility][1] [address] [place] [address] Gastroenterology 02/02/22 Hung Emerson MD [address] [place] [address] Pulmonary and Critical Care Medicine 02/02/22 Yacht Rigger Relationship Specialty Start Date End Date Vargas Mujica PA-C [address] [place] [address] PCP - General 04/30/19 Vargas Mujica PA-C [address] [place] [address] PCP - MMO ACO PCP 02/25/23 Team Status: Inactive Member Role Status Dates JUNE Graham Primary Care Provider Active Dr. Anam Garcia MD Attending Provider, Emergency Provi scott Active Yacht Rigger Relationship Specialty Start Date End Date Vargas Mujica PA [address] [facility] [place] [address] PCP - General Internal Medicine 09/17/18 Joshua Camacho [address] [facility] [place] [place] [address] Specialty Race Starter Cardiology 09/19/18 Edith Taylor MD [address] [place], [place] [address] Specialty Race Starter Gastroenterology 09/19/18 Bonita Naqvi [address] [place], [place] [address] Specialty Race Starter Rheumatology 09/19/18 No, Referral Referring Cardiology 06/26/19 Eric Crooks MD [address] [place], [place] [id number] Primary Staff Physician Cardiology 02/11/20 Tomasz Garay MD 721 [facility] [place], [place] [address] Cardiology 11/24/21 Brooks Soto MD [address] [facility] [address] [place] [address] Gastroenterology 02/02/22 Brooks Soto MD 1 [facility][1] [address] [place] [address] Gastroenterology 02/02/22 Hung Emerson MD [address] [place] [address] Pulmonary and Critical Care Medicine 02/02/22 Yacht Rigger Relationship Specialty Start Date End Date Vargas Mujica PA [address] [facility] [place] [address] PCP - General Internal Medicine 09/17/18 Joshua Camacho [address] [place], [place] [address] Specialty Race Starter Cardiology 09/19/18 Edith Taylor MD [address] [place] [address] Specialty Race Starter Gastroenterology 09/19/18 Bonita Naqvi [address], [place] [address] Specialty Race Starter Rheumatology 09/19/18 No, Referral Referring Cardiology 06/26/19 Eric Crooks MD [address] [place] [address] Primary Staff Physician Cardiology 02/11/20 Tomasz Garay MD [address] [place], [place] [address] Cardiology 11/24/21 Brooks Soto MD [address] [facility] [address] [place] [address] Gastroenterology 02/02/22 Brooks Soto MD 1 [facility][1] [address] [place] [address] Gastroenterology 02/02/22 Hung Emerson MD [address] [place] [address] Pulmonary and Critical Care Medicine 02/02/22 Yacht Rigger Relationship Specialty Start Date End Date Vargas Mujica PA [address] [facility] [place] [address] PCP - General Internal Medicine 09/17/18 Joshua Camacho [address] [place] [address] Specialty Race Starter Cardiology 09/19/18 Edith Taylor MD [address] [place] [address] Specialty Race Starter Gastroenterology 09/19/18 Bonita Naqvi [address] [place] [address] Specialty Race Starter Rheumatology 09/19/18 No, Referral Referring Cardiology 06/26/19 Eric Crooks MD [address] [facility] [place] [place] [address] Primary Staff Physician Cardiology 02/11/20 Tomasz Garay MD 7[address] E [facility] [place] [address] Cardiology 11/24/21 Brooks Soto MD [address] [facility] [address] [place] [address] Gastroenterology 02/02/22 Brooks Soto MD 1 [facility][1] [address] [place] [address] Gastroenterology 02/02/22 Hung Emerson MD [address] [place] [address] Pulmonary and Critical Care Medicine 02/02/22 Yacht Rigger Relationship Specialty Start Date End Date Vargas Mujica PA [address] [place] [address] PCP - General Internal Medicine 09/17/18 Joshua Camacho [address] [facility] [place] [id number] Specialty Race Starter Cardiology 09/19/18 Edith Taylor MD [address] [place], [place] 9150395 Specialty Race Starter Gastroenterology 09/19/18 Bonita Naqvi [address] [place], [place] 33[address] Specialty Race Starter Rheumatology 09/19/18 No, Referral Referring Cardiology 06/26/19 Eric Crooks MD [address] [place], [place] 48424[address] Primary Staff Physician Cardiology 02/11/20 Tomasz Garay MD 7[address] [facility] [place] [address] Cardiology 11/24/21 Brooks Soto MD 4302 [facility] [address] [place] [address] Gastroenterology 02/02/22 Brooks Soto MD 1 [facility][1] [address] [place] [address] Gastroenterology 02/02/22 Hung Emerson MD [address] [place] [address] Pulmonary and Critical Care Medicine 02/02/22 Yacht Rigger Relationship Specialty Start Date End Date Vargas Mujica PA [address] [place] [address] PCP - General Internal Medicine 09/17/18 Joshua Camacho [address] [place], [place] [id number] Specialty Race Starter Cardiology 09/19/18 Edith Taylor MD [address] [place], [place] 434[address] Specialty Race Starter Gastroenterology 09/19/18 Bonita Naqvi [address], [place] [address] Specialty Race Starter Rheumatology 09/19/18 No, Referral Referring Cardiology 06/26/19 Eric Crooks MD [address] [place], [place] 2061195 Primary Staff Physician Cardiology 02/11/20 Tomasz Garay MD [address] [place], [place] [address] Cardiology 11/24/21 Brooks Soto MD [address] [facility] [address] [place] [address] Gastroenterology 02/02/22 Brooks Soto MD 1 [facility][1] [address] [place] [address] Gastroenterology 02/02/22 Hung Emerson MD [address] [place] [address] Pulmonary and Critical Care Medicine 02/02/22 Yacht Rigger Relationship Specialty Start Date End Date Vargas Mujica PA [address] [facility] [place] [address] PCP - General Internal Medicine 09/17/18 Joshua Camacho [address] [place], [place] 934941 Specialty Race Starter Cardiology 09/19/18 Edith Taylor MD [address] [place], [place] 2365395 Specialty Race Starter Gastroenterology 09/19/18 Bonita Naqvi [address], [place] [address] Specialty Race Starter Rheumatology 09/19/18 No, Referral Referring Cardiology 06/26/19 Eric Crooks MD [address] [place], [place] 61274[address] Primary Staff Physician Cardiology 02/11/20 Tomasz Garay MD [address] [place], [place] [address] Cardiology 11/24/21 Brooks Soto MD [address] [facility] [address] [place] [address] Gastroenterology 02/02/22 Brooks Soto MD 1 [facility] [address] [place] [address] Gastroenterology 02/02/22 Hung Emerson MD [address] [place] [address] Pulmonary and Critical Care Medicine 02/02/22 Yacht Rigger Relationship Specialty Start Date End Date Vargas Mujica PA [address] [place] [address] PCP - General Internal Medicine 09/17/18 Joshua Camacho [address] [place], [place] [address] Specialty Race Starter Cardiology 09/19/18 Edith Taylor MD [address] [place], [place] 7375[address] Specialty Race Starter Gastroenterology 09/19/18 Bonita Naqvi [address] [place] [address] Specialty Race Starter Rheumatology 09/19/18 No, Referral Referring Cardiology 06/26/19 Eric Crooks MD [address] [place] [address] Primary Staff Physician Cardiology 02/11/20 Yacht Rigger Relationship Specialty Start Date End Date Vargas Mujica PA [address] [place] [address] PCP - General Internal Medicine 09/17/18 Joshua Camacho [address] [place] [address] Specialty Race Starter Cardiology 09/19/18 Edith Taylor MD [address] [place], [place] 6485[address] Specialty Race Starter Gastroenterology 09/19/18 Bonita Naqvi [address] [place] [address] Specialty Race Starter Rheumatology 09/19/18 No, Referral Referring Cardiology 06/26/19 Eric Crooks MD [address] [place], [place] 5252495 Primary Staff Physician Cardiology 02/11/20 Tomasz Garay MD [address] [place] [address] Cardiology 11/24/21 Brooks Soto MD 4302 [facility] [address] [place] [address] Gastroenterology 02/02/22 Brooks Soto MD 1 [facility][1] [address] [place] [address] Gastroenterology 02/02/22 Hung Emerson MD [address] [place] [address] Pulmonary and Critical Care Medicine 02/02/22 Yacht Rigger Relationship Specialty Start Date End Date Vargas Mujica PA [address] [facility] [place] [address] PCP - General Internal Medicine 09/17/18 Joshua Camacho [address] [place] [address] Specialty Race Starter Cardiology 09/19/18 Edith Taylor MD [address] [place] [address] Specialty Race Starter Gastroenterology 09/19/18 Bonita Naqiv [address] [place] [address] Specialty Race Starter Rheumatology 09/19/18 No, Referral Referring Cardiology 06/26/19 Eric Crooks MD [address] [place], [place] 2162995 Primary Staff Physician Cardiology 02/11/20 Tomasz Garay MD [address] [facility] [place] [address] Cardiology 11/24/21 Brooks Soto MD 4302 [facility] [address] [place] [address] Gastroenterology 02/02/22 Brooks Soto MD 1 [facility] [address] [place] [address] Gastroenterology 02/02/22 Hung Emerson MD [address] [place] [address] Pulmonary and Critical Care Medicine 02/02/22 Yacht Rigger Relationship Specialty Start Date End Date Vargas Mujica, PAJoanaC [address] [facility] [place] [address] PCP - General 04/30/19 Vargas Mujica PA-C [address] [place] [address] PCP - MMO ACO PCP 02/25/23 Yacht Rigger Relationship Specialty Start Date End Date Vargas Mujica PA-C [address] [place] [address] PCP - General 04/30/19 Vargas Mujica PA-C [address] [place] [address] PCP - MMO ACO PCP 02/25/23 Yacht Rigger Relationship Specialty Start Date End Date Vargas Mujica PA-C [address] [place] [address] PCP - General 04/30/19 Vargas Mujica PA-C [address] [place] [address] PCP - MMO ACO PCP 02/25/23 Yacht Rigger Relationship Specialty Start Date End Date Vargas Mujica PA-C [address] [place] [address] PCP - General 04/30/19 Vargas Mujica PA-C [address] [place] [address] PCP - MMO ACO PCP 02/25/23 Yacht Rigger Relationship Specialty Start Date End Date Vargas Mujica PA [address] [place] [address] PCP - General Internal Medicine 09/17/18 Joshua Camacho MD [address] [place], [place] [address] Specialty Race Starter Cardiology 09/19/18 Edith Taylor MD [address] [place], [place] 7356[address] Specialty Race Starter Gastroenterology 09/19/18 Bonita Naqvi [address] [place] [address] Specialty Race Starter Rheumatology 09/19/18 No, Referral Referring Cardiology 06/26/19 Eric Crooks MD [address] [place], [place] 6205695 Primary Staff Physician Cardiology 02/11/20 Tomasz Garay MD [address] [place], [place] [address] Cardiology 11/24/21 Brooks Soto MD 4302 [facility] [address] [place] [address] Gastroenterology 02/02/22 Brooks Soto MD 1 [facility] hang [address] [place] [address] Gastroenterology 02/02/22 Hung Emerson MD [address] [place] [address] Pulmonary and Critical Care Medicine 02/02/22 Yacht Rigger Relationship Specialty Start Date End Date Vargas Mujica PA [address] [facility] [place] [address] PCP - General Internal Medicine 09/17/18 Joshua Camacho MD [address] [place] [address] Specialty Race Starter Cardiology 09/19/18 Edith Taylor MD [address] [place] [address] Specialty Race Starter Gastroenterology 09/19/18 Bonita Naqvi [address] [place] [address] Specialty Race Starter Rheumatology 09/19/18 No, Referral Referring Cardiology 06/26/19 Eric Crooks MD [address] [place], [place] 5050595 Primary Staff Physician Cardiology 02/11/20 Tomasz Garay MD [address] [place] [address] Cardiology 11/24/21 Brooks Soto MD 4302 [facility] [address] [place] [address] Gastroenterology 02/02/22 Brooks Soto MD 1 [facility][1] [address] [place] [address] Gastroenterology 02/02/22 Hung Emerson MD [address] [place] [address] Pulmonary and Critical Care Medicine 02/02/22 Yacht Rigger Relationship Specialty Start Date End Date Vargas Mujica PA [address] [place] [address] PCP - General Internal Medicine 09/17/18 Joshua Camacho MD [address] [place], [place] 886941 Specialty Race Starter Cardiology 09/19/18 Edith Taylor MD [address] [place], [place] 3134095 Specialty Race Starter Gastroenterology 09/19/18 Bonita Naqvi [address] [place] [address] Specialty Race Starter Rheumatology 09/19/18 No, Referral Referring Cardiology 06/26/19 Eric Crooks MD [address] [place], [place] 7966695 Primary Staff Physician Cardiology 02/11/20 Tomasz Garay MD 721 E [facility] [place], [place] [address] Cardiology 11/24/21 Brooks Soto MD [address] [facility] [address] [place] [address] Gastroenterology 02/02/22 Brooks Soto MD 1 [facility][1] [address] [place] [address] Gastroenterology 02/02/22 Hung Emerson MD [address] [place] [address] Pulmonary and Critical Care Medicine 02/02/22 Yacht Rigger Relationship Specialty Start Date End Date Vargas Mujica PA [address] [place] [address] PCP - General Internal Medicine 09/17/18 Johsua Camacho MD [address] [place], [place] [address] Specialty Race Starter Cardiology 09/19/18 Edith Taylor MD [address] [place] [address] Specialty Race Starter Gastroenterology 09/19/18 Bonita Naqvi [address] [place] [address] Specialty Race Starter Rheumatology 09/19/18 No, Referral Referring Cardiology 06/26/19 Eric Crooks MD [address] [place] [address] Primary Staff Physician Cardiology 02/11/20 Tomsaz Garay MD [address] [place], [place] [address] Cardiology 11/24/21 Brooks Soto MD [address] [facility] [address] [place] [address] Gastroenterology 02/02/22 Brooks Soto MD 1 [facility][1] [address] [place] [address] Gastroenterology 02/02/22 Hung Emerson MD [address] [place] [address] Pulmonary and Critical Care Medicine 02/02/22 Yacht Rigger Relationship Specialty Start Date End Date Vargas [...] BE BASED ON THE PRIMARY CLINICAL RECORDS. [employer] [facility]. provides no warranty or guarantee of the accuracy or completeness of information in this document.
--- NOTE | 2025-06-15 19:38 | EDS_ITS ---
HPI History of Present Illness Chief Complaint: Palpitations Detail of Chief Complaint: Low heart rate at times. Informant: patient and spouse/S.O. Onset/Context/Timing Onset: Today Activity at onset: gradual Timing: Intermittent Narrative Narrative: 39-year-old female history of thyroid disease on the thyroid medication. PTSD. Prior gastric sleeve. Prior V. tach ablation. Currently is wearing a quality assurance monitor body through the [facility]. She has had episodes of low heart rate. But send when she has him she her pulse ox is good and her blood pressure is 120/80 or so. She is not getting hypotensive. She has had no syncopal events. No chest pain. 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 Liver disease IBS (irritable bowel syndrome) Back problem Arthritis Seasonal allergies Paroxysmal ventricular tachycardia Hypergammaglobulinemia, unspecified High serum fibrinogen PTSD (post-traumatic stress disorder) History of pulmonary embolism Anxiety Iron deficiency anemia Vitamin D deficiency [id number] deficiency GERD (gastroesophageal reflux disease) Ankylosing spondylitis Morbid obesity Home Medications ?Medication ?Instructions ?Recorded ?Last Taken ?Type aspirin 81 mg chewable tablet 81 mg PO DAILY@0800 11/0 09/1512/20/24 History pantoprazole 40 mg tablet,delayed 40 mg PO DAILY 12/2012/20/24 History release lorazepam 1 mg tablet 1 mg PO TID PRN PRN anxiety 06/15/25 Unknown History venlafaxine 37.5 mg 37.5 mg PO DAILY 06/15/25 Un known History capsule,extended release 24 hr Allergy/AdvReac Type Severity Reaction Status Date / Time cholecalciferol (vitamin D3) Allergy Hives Verified 06/15/25 18:49 (From Vitamin D3) ergocalciferol (vitamin D2) Allergy Hives Verified 06/15/25 18:49 (From Vitamin D2) nadolol Allergy Hives Verified 06/15/25 18:49 Penicillins Allergy Hives Verified 06/15/25 18:49 bupropion (From Wellbutrin) AdvReac Itching Verified 06/15/25 18:49 hydrocodone bitartrate (From AdvReac Other Verified 06/15/25 18:49 Vicodin) morphine AdvReac Nausea Verified 06/15/25 18:49 Family History Father Kidney disease Liver disease Heart problem Thyroid disorder Autoimmune disease rheumatoid and alpha 1 antitrypsin Grandfather Heart problem paternal Grandmother Heart problem paternal Diabetes Uncle Heart problem Diabetes Mother Anxiety Hypertension Hyperlipidemia Other Arthritis Depression Heart disease Myocardial infarction Surgical History H/O wisdom tooth extraction H/O gastric sleeve History of radiofrequency ablation procedure for cardiac arrhythmia (09/25/18) History of tubal ligation History of tonsillectomy History of cholecystectomy History of History of liver biopsy History of left heart catheterization (09/18/18) Social History household members: significant other and family current occupational status: employed 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 Constitutional Constitutional ED: Denies chills or fever(s) Eyes Eyes: Reports none ENT ENT ED: Denies ear pain Cardiovascular Cardiovascular: Reports as per HPI and palpitations; Denies chest pain or racing heartbeat Respiratory/Chest Respiratory/Chest: Denies cough or dyspnea Gastrointestinal Gastrointestinal: Denies abdominal pain Genitourinary Genitourinary ED: Denies dysuria or hematuria Musculoskeletal Musculoskeletal: Denies arthralgias or back pain Integumentary Denies abscess Neurologic Neurologic: Denies headache(s) Psychiatric Psychiatric: Denies anxiety Endocrine Endocrinology: Denies cold intolerance Hematologic/Lymphatic Hematologic/Lymphatic: Denies easy bleeding, easy bruising or lymphadenopathy Allergic/Immunologic Allergic/Immunologic ED: Denies mouth swelling, tongue swelling or urticaria EXAM Physical Exam Narrative Exam Narrative: 39-year-old female vital signs are stable afebrile. Current heart rate 77. Pulse ox 99% on room air no signs hypoxia. No acute distress. H EENT exam pupils round react light. Moist MM. Neck nontender no thyromegaly. No lymphadenopathy. No JVD. Lungs clear to auscultation bilaterally. Heart regular rhythm rate about 65 no murmur. Chest wall ribs nontender. Abdomen soft nontender. Moving all 4 extremities. Nontender no edema. Normal strength. Normal range of motion. Back nontender. Neurologically she is awake alert. Answering questions following commands. Benign exam. Const Vital Signs: 06/15/25 18:46 06/15/25 20:03 06/15/25 20:05 Temperature 98.4 F Temperature Source Oral Pulse Rate 77 Respiratory Rate 18 Respiratory Effort Normal Non-Labored Blood Pressure 156/101 H Blood Pressure Mean 119 Pulse Ox 99 Oxygen Delivery Method Room Air Room Air 06/15/25 20:46 Temperature Temperature Source Pulse Rate 51 L Respiratory Rate 13 Respiratory Effort Blood Pressure 132/89 H Blood Pressure Mean 103 Pulse Ox 97 Oxygen Delivery Method Room Air MDM MDM MDM Narrative Medical decision making narrative: 39-year-old with episodes of bradycardia. But does not get hypotensive nor pass out. Exam benign. She undergo cardiac workup. She already has a heart monitor on that she is following up with Repeat exam patient is doing well at around 10:07 PM. We went over her test results. Given she has had no episodes of passing out no hypotension show outpatient follow-up for bradycardia. History & Record Review Discussion w/independent historian: Patient and Significant other Additional record(s) reviewed:: Prior outpatient record, Prior ED visit and Prior labs Lab Data Attestation: I reviewed the patient's lab results. Lab results narrative: CBC shows white count 9 H&H 14 and 43. Platelets 176. Electrolytes showed gap 12. BUN and creatinine 8 and 0.6. Glucose 86. Troponin less than 6. TSH normal at 3.6. Labs: Laboratory Results - last 24 hr 06/15/25 19:23 WBC 9.7 RBC 5.19 Hgb 14.9 Hct 43.7 MCV 84.2 MCH 28.7 MCHC 34.1 RDW Std Deviation 41.1 RDW Coeff of Jocelyne 13.3 Plt Count 176 MPV 11.7 Immature Gran % (Auto) 0.300 Neut % (Auto) 65.6 Lymph % (Auto) 25.2 Ritchie % (Auto) 8.0 Eos % (Auto) 0.8 Baso % (Auto) 0.1 Absolute Neuts (auto) 6.4 Absolute Lymphs (auto) 2.44 Nucleated RBC % 0 Sodium 137 Potassium 3.6 Chloride 102 Carbon Dioxide 22.7 Anion Gap 12 BUN 8 Creatinine 0.63 L Estim Creat Clear Calc 172.87 Est GFR (MDRD) Non-Af 114 BUN/Creatinine Ratio 12.7 Glucose 86 Calcium 9.3 Troponin T High Sens < 6 TSH 3.640 Radiography Chest X-Ray - ED: 2 View, Read by ED Physician, Read by Radiologist, Heart, Lungs, Mediastinum, Bony Structures, No Acute Disease and Chronic Changes Diagnostic Testing: Clinical Impression(s) from Imaging Studies Chest X-Ray 06/15/25 19:48 IMPRESSION: NO ACUTE FINDINGS. Reading Location: [address] Chest x-ray, 2 views, AP lateral, interpreted by self neuro radiology shows no acute abnormality. Normal cardiac silhouette. Normal lung palma. She has a wearable quality assurance monitor body in her chest. Rhythm Strip Rhythm Strip: Sinus Rhythm Rate: 62 Ectopy: None EKG Initial EKG: Attestation: I personally reviewed and interpreted this EKG as follows: Interpretation: Sinus Rhythm and No Acute Injury Pattern Comments: Normal sinus rhythm rate of 62 no acute signs of WI, ischemia or dysrhythmia. Discharge Plan Triage Chief Complaint: Palpitations ED Provider: Javon Zavala Dx/Rx/DC Orders Clinical Impression: Bradycardia, History of hypothyroidism Instructions: ED Bradycardia Prescriptions: No Action aspirin 81 MG tablet,chewable 81 mg PO DAILY@0800 venlafaxine 37.5 mg capsule,extended release 24hr 37.5 mg PO DAILY lorazepam 1 mg tablet 1 mg PO TID PRN PRN (Reason: anxiety) pantoprazole 40 mg tablet,delayed release (DR/EC) 40 mg PO DAILY Primary Care Provider: Marjorie Arzate Referrals: Marjorie Arzate, PA [Primary Care Provider, Medical] - As soon as possible Activity Restrictions/Additional Instructions: Follow-up with your doctor to have your quality assurance monitor body evaluated. So they can see if you have any type of abnormal rhythm. It is okay if your heart rate dips down as long as your pressure is not dropping with that or you not feeling you are in a pass out. If you feel worse just return. Your labs tonight x-ray and EKG all look good. Print Language: Swedish Disposition Disposition: Home, Self Care
--- NOTE | 2025-06-15 19:38 | EKG12_ITS ---
Test Reason : PALPITATIONS Blood Pressure : */* mmHG Vent. Rate : 62 BPM Atrial Rate : 62 BPM P-R Int : 148 ms QRS Dur : 82 ms QT Int : 418 ms P-R-T Axes : 51 -2 29 degrees QTcB Int : 424 ms Normal sinus rhythm Minimal voltage criteria for LVH, may be normal variant ( R in aVL ) Borderline ECG Confirmed by WILLARD COPELAND, JYOTHI ([id number]), script editor RAYMON CONDON ([id number]) on 06/16/2025 10:40:39 AM Referred By: KALANI Confirmed By: JYOTHI LAMAR MD
--- NOTE | 2025-06-15 19:48 | RAD_ITS ---
PROCEDURE: CHEST PA AND LATERAL 06/15/2025 REASON FOR EXAM: CHEST PAIN TECHNIQUE: Procedure Code: RADCXR Modality: DX Procedure: CHEST PA AND LATERAL COMPARISON: 01/05/2023. FINDINGS: The heart is normal in size. The lungs are clear. No acute osseous abnormalities. RAD/Chest PA and Lateral IMPRESSION: NO ACUTE FINDINGS. Reading Location: [id number]
[2025-06-15 19:55] LABS: Hematocrit 43.7 % (37-47); Hemoglobin 14.9 g/dL (12.0-15.0); Immature Granulocytes Count 0.030 X10^3/uL (0.0-0.0); Mean Corp Hgb Conc 34.1 g/dL (32-36); Mean Corpuscular Volume 84.2 fL (81-99); Mean Platelet Vol. 11.7 fl (6.2-12.0); NRBC Flagged by Analyzer 0 % (0-5); Platelet Count 176 K/mm3 (150-450); RBC Distribution Width CV 13.3 % (11.6-14.6); RBC Distribution Width SD 41.1 fl (35.1-43.9); Red Blood Count 5.19 M/mm3 (4.2-5.4); White Blood Count 9.7 K/mm3 (4.4-11.0)
[2025-06-15 20:20] LABS: Anion Gap 12 (5-15); BUN 8 mg/dL (4-19); BUN/Creat Ratio 12.7 RATIO (10-20); Calcium,Total 9.3 mg/dL (7.6-11.0); Carbon Dioxide 22.7 mmol/L (21.0-32.0); Chloride 102 mmol/L (98-108); Estimated Creatinine Clearance 172.87 ml/min (50-250); Glucose 86 mg/dL (70-99); Potassium 3.6 mmol/L (3.3-5.1); Troponin T High Sensitivity < 6 ng/L (<=14)
[2025-06-15 20:46] VITALS: BP 132/89; PULSE 51; RESP 13; O2SAT 97
[2025-06-15 22:00] VITALS: BP 136/91; PULSE 66; RESP 20; TEMP 36.7; O2SAT 95
== END 2025-06-15 22:22 | disposition home or self-care (01) ==
PROVIDERS: Emergency Provider Emergency Medicine; PCP Physician Assistant Medical; Visit Provider Emergency Medicine
DX: R00.1 Bradycardia, unspecified (principal); Z87.891 Personal history of nicotine dependence; E03.9 Hypothyroidism, unspecified; R00.2 Palpitations; K21.9 Gastro-esophageal reflux disease without esophagitis; Z79.899 Other long term (current) drug therapy; F41.9 Anxiety disorder, unspecified; Z98.51 Tubal ligation status; Z90.49 Acquired absence of other specified parts of digestive tract
CPT/HCPCS: 71046; 80048; 84443; 84484; 85025; 93005; 99284; A4216